=== PATIENT | female | born 1950 | race Caucasian/White ===

== ENCOUNTER → 2017-08-30 11:37 | Outpatient (CLI) | payer MEDICARE, OTHER, SELFPAY ==
--- NOTE | 2017-08-30 11:47 | DI.MG.S_ITS ---
BILATERAL DIGITAL SCREENING MAMMOGRAM 3D/2D WITH CAD: 08/30/2017 CLINICAL: Routine screening. Comparison is made to exams dated: 06/09/2016 mammogram, 02/26/2015 mammogram - [facility], and 10/17/2013 mammogram - [facility]. The tissue of both breasts is heterogeneously dense. This may lower the sensitivity of mammography. Current study was also evaluated with a Computer Aided Detection (CAD) system. No significant masses, calcifications, or other findings are seen in either breast. There has been no significant interval change. IMPRESSION: NEGATIVE There is no mammographic evidence of malignancy. A 1 year screening mammogram is recommended. This exam was interpreted at Station ID: [id number]. NOTE: For mammograms, a report in lay terms will be sent to the patient. Approximately 15% of breast malignancies will not be visualized mammographically. In the management of a palpable breast mass, a negative mammogram must not discourage biopsy of a clinically suspicious lesion. Electronically Signed By: Magdiel wiggins/francy:08/30/2017 15:59:49 copy to: Justin Gayle letter sent: Normal Exam ACR BI-RADS Category 1: Negative [id number]
--- NOTE | 2017-08-30 11:48 | DI.US.S_ITS ---
PROCEDURE: US THYROID INDICATIONS: THYROID NODULE TECHNIQUE: Real-time scanning was performed of the thyroid gland, with image documentation. COMPARISON: None. FINDINGS: Right: Thyroid lobe measures 4.0 x 1.3 x 1.2 cm, and is diffusely heterogeneous in echotexture. Left: Thyroid lobe measures 4.0 x 1.1 x 2.0 cm, and is diffusely heterogeneous in echotexture. Isthmus: 2.5 mm thick. Nodule number: 1 Location: Left mid Size: 0.9 x 0.8 x 0.9 cm. Composition: Predominately solid Echogenicity: Hypoechoic Shape: wider than tall. Margins: Smooth Echogenic foci: None Total points: 4 ACR TI-RADS category: Moderately suspicious Nodule number: 2 Location: Left mid Size: Sub-5 mm nodule Composition: Complex Echogenicity: Hypoechoic Shape: wider than tall. Margins: Smooth Echogenic foci: None Total points: 2 ACR TI-RADS category: No suspicious IMPRESSION: Small left-sided thyroid nodules as above. Recommend followup as below. ACR TI-RADS definitions and recommendations: TI-RADS 1 (benign): 0 points. FNA not needed. TI-RADS 2 (not suspicious): 2 points. FNA not needed. TI-RADS 3 (mildly suspicious): 3 points. * FNA if 2.5 cm or larger, follow up if 1.5 cm or larger (at 1, 3, and 5 years). TI-RADS 4 (moderately suspicious): 4-6 points. * FNA if 1.5 cm or larger, follow up if 1 cm or larger (at 1, 2, 3, and 5 years). TI-RADS 5 (highly suspicious): 7 points or more. * FNA if 1 cm or larger, follow up if 0.5 cm or larger (every year for 5 years). Dictated by: Bashir OSORIO Interpreted: Ken Busby MD on 08/30/2017 at 15:08 Approved by: Vinh Busby M.D. on 08/30/2017 at 16:28
[2017-08-30 12:17] LABS: Add Manual Diff / Slide Review NO; Basophils Percent Auto 1.3 % (0-2); Eosinophils Percent Auto 1.9 % (2-4); Hematocrit 41.8 % (36-46); Lymphocytes Percent Auto 31.4 % (25-40); Mean Corpuscular HGB Conc 33.4 % (30-36); Mean Corpuscular Hemoglobin 30.1 PG (26-34); Mean Corpuscular Volume 90.2 fL (80-100); Neutrophils Absolute Auto 1900 /uL (3000-5900); Neutrophils Percent Auto 48.4 % (50-75); Platelet Count 164 X10^3/uL (150-400); Red Blood Cell Count 4.63 X10^6/uL (4.0-5.2); Red Cell Distribution Width 14.9 % (11.6-14.8); White Blood Cell Count 3.9 X10^3/uL (4.5-11.0)
[2017-08-30 12:41] LABS: Alanine Aminotransferase 34 IU/L (9-52); Albumin Globulin Ratio 1.5 (1.0-2.8); Alkaline Phosphatase 49 U/L (38-126); Aspartate Aminotransferase 23 IU/L (14-36); Bilirubin Total 0.8 mg/dL (0.2-1.3); Bilirubin Unconjugated 0.5 mg/dL (0.0-1.1); Estimated Glomerular Filt Rate > 60.0 mL/min (>60); Globulin 2.6 g/dL (1.7-4.1); HEMOLYSIS < 15 (0-50); Total Protein 6.6 g/dL (6.3-8.2)
== END ==
PROVIDERS: Family Provider Internal Medicine; PCP Internal Medicine; Referring Provider Internal Medicine Rheumatology; Visit Provider Internal Medicine
DX: Z12.31 Encounter for screening mammogram for malignant neoplasm of breast (principal); Z51.81 Encounter for therapeutic drug level monitoring; E04.2 Nontoxic multinodular goiter
CPT/HCPCS: 36415; 76536; 77063; 77067; 80076; 82565; 85025

== ENCOUNTER → 2017-12-08 10:25 | Outpatient (CLI) | payer MEDICARE, OTHER, SELFPAY ==
[2017-12-08 11:14] LABS: Add Manual Diff / Slide Review NO; Basophils Percent Auto 0.5 % (0-2); Eosinophils Percent Auto 2.1 % (2-4); Hemoglobin 14.2 g/dL (12.0-16.0); Lymphocytes Percent Auto 27.5 % (25-40); Mean Corpuscular HGB Conc 33.8 % (30-36); Mean Corpuscular Hemoglobin 30.5 PG (26-34); Mean Corpuscular Volume 90.3 fL (80-100); Monocytes Percent Auto 17.4 % (3-14); Neutrophils Absolute Auto 2000 /uL (3000-5900); Neutrophils Percent Auto 52.5 % (50-75); Platelet Count 179 X10^3/uL (150-400); Red Blood Cell Count 4.65 X10^6/uL (4.0-5.2); Red Cell Distribution Width 13.6 % (11.6-14.8); White Blood Cell Count 3.7 X10^3/uL (4.5-11.0)
[2017-12-08 11:47] LABS: Alanine Aminotransferase 33 IU/L (9-52); Albumin 4.2 g/dL (3.5-5.0); Albumin Globulin Ratio 1.7 (1.0-2.8); Alkaline Phosphatase 45 U/L (38-126); Aspartate Aminotransferase 26 IU/L (14-36); Bilirubin Total 0.6 mg/dL (0.2-1.3); Bilirubin Unconjugated 0.3 mg/dL (0.0-1.1); Estimated Glomerular Filt Rate > 60.0 mL/min (>60); Globulin 2.5 g/dL (1.7-4.1); HEMOLYSIS < 15 (0-50); Total Protein 6.7 g/dL (6.3-8.2)
[2017-12-09 13:51] LABS: Cholesterol 271 mg/dL (140-199); HDL Cholesterol 71 mg/dL (40-60); LDL Cholesterol Calculated 143 mg/dL (<100); Triglycerides 283 mg/dL (35-150)
== END ==
PROVIDERS: Family Provider Internal Medicine; PCP Internal Medicine; Visit Provider Internal Medicine Rheumatology
DX: Z51.81 Encounter for therapeutic drug level monitoring (principal); E78.5 Hyperlipidemia, unspecified
CPT/HCPCS: 36415; 80061; 80076; 82565; 85025

== ENCOUNTER 2018-01-20 08:15 | Outpatient (RCR) | payer MEDICARE, OTHER, SELFPAY ==
--- NOTE | 2017-10-13 08:56 | PT.OIE ---
Current Diagnoses Primary osteoarthritis, unspecified ankle and foot (10/12/17) Pain in left foot (10/12/17) Weakness (10/12/17) Provider Visit Care Team Role Provider Type Justin Gayle MD Attending Provider Physician Family Provider Primary Care Provider Specialty: Internal Medicine Address: [address] [place] [address], [id number] Email: Physical Therapy Initial Evaluation PT-OP-A Visit Information Start: 10/12/17 15:25 Freq: Status: Active Protocol: Document 10/12/17 15:26 [facility] (Rec: 10/13/17 08:55 [facility] [id number]) Out-Patient Physical Therapy Visit Information Visit Information Visit Type Initial Evaluation Visit Start Time 15:26 Visit Stop Time 16:16 Total Visit Minutes 50 Visit Number 1 Number of ACCOUNTS RECEIVABLE ASSISTANT Visits 0 Evaluation Information Evaluation Date 10/12/17 PT-OP-B Current Condition Start: 10/12/17 15:25 Freq: Status: Active Protocol: Document 10/12/17 15:26 [facility] (Rec: 10/12/17 16:01 [facility] [id number]) Current Condition History of Current Condition Onset Date 07/27/17 Current Complaints function-limiting pain bilateral feet left greater than right. History of Current Condition Woke up swollen and painful on outside of left foot 07/27/17, no known reason. Xray showed avulsion fracture of styloid process of 5th metatarsal. Wore post-op boot for 8 weeks, pain persisted with no healing of fracture. Patient wears boot still occasionally but has transitioned to wearing tennis shoes though with rigid metal insert, heel lift, and old orthotics bilaterally. States she feels pain worse wearing the metal insert as recommended by physician. Persistent pain bilateral feet, neuropathy bilateral toes, neuritis outside of right foot. Hoping to get some pain relief in PT . Currently doing water exercise for fitness but is not helping foot pain. Uses heat around her feet at night, no ice. Has not tried kinesiotape or a brace. Future Testing and Treatments Planned Scheduled for left talonavicular fusion 02/19/18. Treatment Goals Patient/Caregiver Goals Pain relief, improved function Prior Functional Status Baseline Function- ADL's Independent Baseline Function- Mobility Independent Baseline Function- Gait independent no device Baseline Function- Work/School retired Current Functional Impairments (Reported) Functional Limitations- ADL's painful Functional Limitations- Mobility/Gait painful PT-OP-C Subjective Start: 10/12/17 15:25 Freq: Status: Active Protocol: Document 10/12/17 15:26 [facility] (Rec: 10/13/17 08:55 [facility] [id number]) Patient Questionnaires Lower Extremity Functional Scale LEFS Score 62 LEFS Impairment 60 to 79% Impaired (Score 17- 31) PT-OP-G Mobility & Gait Start: 10/12/17 15:25 Freq: Status: Active Protocol: Document 10/12/17 15:26 [facility] (Rec: 10/13/17 08:55 [facility] [id number]) OP Gait Assessment Gait Gait Assistance Required: Independent Assistive Devices Assistive Device None Gait Deviations General Gait Pattern Antalgic Lateral Trunk Lean Factors Limiting Gait Function Factors Limiting Gait Function Pain Comments Gait Comments Wearing bilateral metal inserts, heel lifts, orthotics : excessive lateral sway due to lack of sagittal plane movement due to metal inserts. Putting increased weight laterally on feet which is likely what is causing increase in foot pain. Stair Climbing Evaluation Evaluation Level of Assist On Stairs Independent Comments Stair Climbing Comments Painful and labored, again due to lack of saggital plane movement PT-OP-J Posture/Palpation/Skin Start: 10/12/17 15:25 Freq: Status: Active Protocol: Document 10/12/17 15:26 [facility] (Rec: 10/13/17 08:55 [facility] [id number]) Posture Evaluation Position Standing Ankle/Foot Posture (L) Pronated (R) Pronated (L) Calcaneal Eversion (R) Calcaneal Eversion Skin Assessment Edema Assessment Bilateral Foot Comments Patient presents with edema lateral left foot, dorsum of right foot PT-OP-K Range of Motion Start: 10/12/17 15:25 Freq: Status: Active Protocol: Document 10/12/17 15:26 [facility] (Rec: 10/13/17 08:55 [facility] [id number]) Knee Goniometric Range of Motion Knee ROM Limitations Comments bilateral knees WNL Ankle and Foot Goniometric Range of Motion Ankle and Foot Measured in Degrees Right Active Testing Position Sitting Dorsiflexion with Knee Flexed 8 Plantarflexion 40 Inversion 30 Eversion 35 Left Testing Position Sitting Dorsiflexion with Knee Flexed 5 Plantarflexion 50 Inversion 25 Eversion 30 Ankle and Foot ROM Limitations ROM Limitations Soft Tissue Tightness Pain Swelling PT-OP-M Strength Start: 10/12/17 15:25 Freq: Status: Active Protocol: Document 10/12/17 15:26 [facility] (Rec: 10/13/17 08:55 [facility] [id number]) Ankle/Foot Strength Ankle and Foot Manual Muscle Testing Right Dorsiflexion (L4) 4 Good Plantarflexion (S1) 4- Good- Inversion 4 Good Eversion (S1) 4 Good Left Dorsiflexion (L4) 4- Good- Plantarflexion (S1) 3- Fair- Inversion 4- Good- Eversion (S1) 4- Good- Comments painful all motions PT-OP-Q Treatments Start: 10/12/17 15:25 Freq: Status: Active Protocol: Document 10/12/17 15:26 [facility] (Rec: 10/12/17 16:34 [facility] [id number]) Self-Care/Home Management Treatment Education Patient Education Home Exercise Program Other Education written instructions and L1-2 Theraband issued Instructed to call physician regarding metal shoe inserts, if ok to remove due to pain. Activities Self-Care/Home Management Activities heat/ice as needed PT-OP-R Modalities Start: 10/12/17 15:25 Freq: Status: Active Protocol: Document 10/12/17 15:26 [facility] (Rec: 10/13/17 08:55 [facility] [id number]) Hot Pack/Cold Pack Treatment Cold Pack Comments Patient refused; stated she will ice at home PT-OP-T Assessment and Plan Start: 10/12/17 15:25 Freq: Status: Active Protocol: Document 10/12/17 15:26 [facility] (Rec: 10/13/17 08:55 [facility] [id number]) Physical Therapy Assessment Rehab Potential Rehabilitation Potential Fair Evaluation Complexity Number of Personal Factors/Comorbidities 3 or More Number of Body Systems Impaired 4 or More Clinical Presentation at Evaluation Unstable Impairments Impairments Activity Tolerance Edema Gait Pain ROM Strength Other Concerns Fall Risk yes due to altered mechanics of gait Goals Antalgic gait Impairment gait Contact Center Representative Goal (LTG) Patient able to ambulate with minimal to no limp using appropriate assistive device as needed LTG Duration 3 months Foot and Ankle Ability Measure ADL's Impairment 50% Fpc Goal (LTG) Improve score to at least 75% LTG Duration 3 months Lower extremity functional scale Impairment Score 38% Contact Center Representative Goal (LTG) Improve lower extremity functional scale to at least 60% LTG Duration 3 months Pain bilateral feet 6/10 Impairment pain Fpc Goal (LTG) Decrease pain to no greater than 3/10 LTG Duration 3 months Assessment Summary Assessment Patient presents with function -limiting pain bilateral feet left greater than right with nonhealing 5th metatarsal fracture. Inserts in shoes especially rigid metal appears to be causing increased lateral sway with gait due to lack of sagittal plane movement which may be contributing to the increased pain patient reports since starting to wear them; patient to contact physician to see if able to ambulate without them. I recommended she use boot more vs the metal if ok with physician. She may benefit from PT for pain management, gentle strengthening of feet/ankles, gait training, advising on aquatic exercise program. Physical Therapy Plan Frequency and Duration Frequency of Treatment 2x/Week Duration of Treatment 3 months Plan of Care Start Date 10/12/17 Plan of Care End Date 01/12/18 Therapeutic Interventions Therapeutic Interventions Aquatic Therapy Gait Training Home Exercise Program Manual Therapy Neuromuscular Re-education Orthotic/Prosthetic Management Patient/Caregiver Education Self-Care/Home Management Taping Therapeutic Activities Therapeutic Exercises Modalities Cold Pack/Ice Massage Electric Stimulation Hot Packs Iontophoresis Ultrasound Next Visit Focus/Plan Next Note Type Treatment Note Next Visit Plan gentle ther ex, modalties, gait training.
--- NOTE | 2017-10-13 08:56 | PT.OPPOC ---
Current Diagnoses Primary osteoarthritis, unspecified ankle and foot (10/12/17) Pain in left foot (10/12/17) Weakness (10/12/17) Provider Visit Care Team Role Provider Type Justin Gayle MD Attending Provider Physician Family Provider Primary Care Provider Specialty: Internal Medicine Address: [address] [place] [address], [id number] Email: Plan Of Care PT-OP-T Assessment and Plan Start: 10/12/17 15:25 Freq: Status: Active Protocol: Document 10/12/17 15:26 [facility] (Rec: 10/13/17 08:55 [facility] [id number]) Physical Therapy Assessment Rehab Potential Rehabilitation Potential Fair Evaluation Complexity Number of Personal Factors/Comorbidities 3 or More Number of Body Systems Impaired 4 or More Clinical Presentation at Evaluation Unstable Impairments Impairments Activity Tolerance Edema Gait Pain ROM Strength Other Concerns Fall Risk yes due to altered mechanics of gait Goals Antalgic gait Impairment gait Scientific Editor Goal (LTG) Patient able to ambulate with minimal to no limp using appropriate assistive device as needed LTG Duration 3 months Foot and Ankle Ability Measure ADL's Impairment 50% Jail Goal (LTG) Improve score to at least 75% LTG Duration 3 months Lower extremity functional scale Impairment Score 38% Jail Goal (LTG) Improve lower extremity functional scale to at least 60% LTG Duration 3 months Pain bilateral feet 6/10 Impairment pain Scientific Editor Goal (LTG) Decrease pain to no greater than 3/10 LTG Duration 3 months Assessment Summary Assessment Patient presents with function -limiting pain bilateral feet left greater than right with nonhealing 5th metatarsal fracture. Inserts in shoes especially rigid metal appears to be causing increased lateral sway with gait due to lack of sagittal plane movement which may be contributing to the increased pain patient reports since starting to wear them; patient to contact physician to see if able to ambulate without them. I recommended she use boot more vs the metal if ok with physician. She may benefit from PT for pain management, gentle strengthening of feet/ankles, gait training, advising on aquatic exercise program. Physical Therapy Plan Frequency and Duration Frequency of Treatment 2x/Week Duration of Treatment 3 months Plan of Care Start Date 10/12/17 Plan of Care End Date 01/12/18 Therapeutic Interventions Therapeutic Interventions Aquatic Therapy Gait Training Home Exercise Program Manual Therapy Neuromuscular Re-education Orthotic/Prosthetic Management Patient/Caregiver Education Self-Care/Home Management Taping Therapeutic Activities Therapeutic Exercises Modalities Cold Pack/Ice Massage Electric Stimulation Hot Packs Iontophoresis Ultrasound Next Visit Focus/Plan Next Note Type Treatment Note Next Visit Plan gentle ther ex, modalties, gait training. Plan of Care Dates Plan of Care Start Date 10/12/17 Plan of Care End Date 01/12/18 Please Sign and Return: I have reviewed this Plan of Care and certify that the skilled therapy services above are required to meet the patient?s needs. Physician Signature Date Printed Name and Credentials Clinical Instructor Signature Printed Name and Credentials
--- NOTE | 2017-10-26 16:58 | PT.OTN ---
Current Diagnoses Primary osteoarthritis, unspecified ankle and foot (10/26/17) Pain in left foot (10/26/17) Physical Therapy Treatment Note PT-OP-A Visit Information Start: 10/12/17 15:25 Freq: Status: Active Protocol: Document 10/26/17 13:45 [facility] (Rec: 10/26/17 16:58 [facility] [id number]) Out-Patient Physical Therapy Visit Information Visit Information Visit Type Treatment Note Visit Start Time 13:45 Visit Stop Time 14:40 Total Visit Minutes 55 Visit Number 2 Number of SHOWROOM SALES ASSISTANT Visits 0 PT-OP-B Current Condition Start: 10/12/17 15:25 Freq: Status: Active Protocol: Document 10/12/17 15:26 [facility] (Rec: 10/12/17 16:01 [facility] [id number]) Current Condition History of Current Condition Onset Date 07/27/17 Current Complaints function-limiting pain bilateral feet left greater than right. History of Current Condition Woke up swollen and painful on outside of left foot 07/27/17, no known reason. Xray showed avulsion fracture of styloid process of 5th metatarsal. Wore post-op boot for 8 weeks, pain persisted with no healing of fracture. Patient wears boot still occasionally but has transitioned to wearing tennis shoes though with rigid metal insert, heel lift, and old orthotics bilaterally. States she feels pain worse wearing the metal insert as recommended by physician. Persistent pain bilateral feet, neuropathy bilateral toes, neuritis outside of right foot. Hoping to get some pain relief in PT . Currently doing water exercise for fitness but is not helping foot pain. Uses heat around her feet at night, no ice. Has not tried kinesiotape or a brace. Future Testing and Treatments Planned Scheduled for left talonavicular fusion 02/19/18. Treatment Goals Patient/Caregiver Goals Pain relief, improved function Prior Functional Status Baseline Function- ADL's Independent Baseline Function- Mobility Independent Baseline Function- Gait independent no device Baseline Function- Work/School retired Current Functional Impairments (Reported) Functional Limitations- ADL's painful Functional Limitations- Mobility/Gait painful PT-OP-C Subjective Start: 10/12/17 15:25 Freq: Status: Active Protocol: Document 10/26/17 13:45 [facility] (Rec: 10/26/17 16:58 [facility] [id number]) OP-PT Subjective Patient Comments Patient Comments Reports she has not been wearing boot or metal in her shoe. Tried 30 min recumbent elliptical in the gym, increased pain after, no ice. PT-OP-G Mobility & Gait Start: 10/12/17 15:25 Freq: Status: Active Protocol: Document 10/12/17 15:26 [facility] (Rec: 10/13/17 08:55 [facility] [id number]) OP Gait Assessment Gait Gait Assistance Required: Independent Assistive Devices Assistive Device None Gait Deviations General Gait Pattern Antalgic Lateral Trunk Lean Factors Limiting Gait Function Factors Limiting Gait Function Pain Comments Gait Comments Wearing bilateral metal inserts, heel lifts, orthotics : excessive lateral sway due to lack of sagittal plane movement due to metal inserts. Putting increased weight laterally on feet which is likely what is causing increase in foot pain. Stair Climbing Evaluation Evaluation Level of Assist On Stairs Independent Comments Stair Climbing Comments Painful and labored, again due to lack of saggital plane movement PT-OP-J Posture/Palpation/Skin Start: 10/12/17 15:25 Freq: Status: Active Protocol: Document 10/12/17 15:26 [facility] (Rec: 10/13/17 08:55 [facility] [id number]) Posture Evaluation Position Standing Ankle/Foot Posture (L) Pronated (R) Pronated (L) Calcaneal Eversion (R) Calcaneal Eversion Skin Assessment Edema Assessment Bilateral Foot Comments Patient presents with edema lateral left foot, dorsum of right foot PT-OP-K Range of Motion Start: 10/12/17 15:25 Freq: Status: Active Protocol: Document 10/12/17 15:26 [facility] (Rec: 10/13/17 08:55 [facility] [id number]) Knee Goniometric Range of Motion Knee ROM Limitations Comments bilateral knees WNL Ankle and Foot Goniometric Range of Motion Ankle and Foot Measured in Degrees Right Active Testing Position Sitting Dorsiflexion with Knee Flexed 8 Plantarflexion 40 Inversion 30 Eversion 35 Left Testing Position Sitting Dorsiflexion with Knee Flexed 5 Plantarflexion 50 Inversion 25 Eversion 30 Ankle and Foot ROM Limitations ROM Limitations Soft Tissue Tightness Pain Swelling PT-OP-M Strength Start: 10/12/17 15:25 Freq: Status: Active Protocol: Document 10/12/17 15:26 [facility] (Rec: 10/13/17 08:55 [facility] [id number]) Ankle/Foot Strength Ankle and Foot Manual Muscle Testing Right Dorsiflexion (L4) 4 Good Plantarflexion (S1) 4- Good- Inversion 4 Good Eversion (S1) 4 Good Left Dorsiflexion (L4) 4- Good- Plantarflexion (S1) 3- Fair- Inversion 4- Good- Eversion (S1) 4- Good- Comments painful all motions PT-OP-Q Treatments Start: 10/12/17 15:25 Freq: Status: Active Protocol: Document 10/26/17 13:45 [facility] (Rec: 10/26/17 16:58 [facility] [id number]) Therapeutic Exercises Sitting Exercises 3 Sitting Exercise Name short foot exercise Side bilateral Reps/Minutes 10x 2 Sitting Exercise Name towel scrunch Side bilateral Reps/Minutes 12x 1 Sitting Exercise Name ankle inv, ev, df, pf Side bilateral Equipment Used L1 TB Reps/Minutes 5 Self-Care/Home Management Treatment Education Patient Education Home Exercise Program Other Education updated PT-OP-R Modalities Start: 10/12/17 15:25 Freq: Status: Active Protocol: Document 10/26/17 13:45 [facility] (Rec: 10/26/17 16:58 [facility] [id number]) Electric Stimulation Electric Stimulation Interferential Current (IFC) Body Location left foot/ankle Duration (Minutes) 15 Contraction Type Normal Target/Sweep Sweep Combined With Heat/Cold Cold Pack Ultrasound Therapy Treatment Left Anterior Ankle Treatment Duration (minutes) 8 Frequency Setting (mHz) 3 Duty Cycle 50% Intensity Setting (w/cm2) 1 PT-OP-T Assessment and Plan Start: 10/12/17 15:25 Freq: Status: Active Protocol: Document 10/26/17 13:45 [facility] (Rec: 10/26/17 16:58 [facility] [id number]) Physical Therapy Assessment Goals Antalgic gait Impairment gait Diesel Technician Mechanic Goal (LTG) Patient able to ambulate with minimal to no limp using appropriate assistive device as needed LTG Duration 3 months Foot and Ankle Ability Measure ADL's Impairment 50% Diesel Technician Mechanic Goal (LTG) Improve score to at least 75% LTG Duration 3 months Lower extremity functional scale Impairment Score 38% Longterm Goal (LTG) Improve lower extremity functional scale to at least 60% LTG Duration 3 months Pain bilateral feet 6/10 Impairment pain Diesel Technician Mechanic Goal (LTG) Decrease pain to no greater than 3/10 LTG Duration 3 months Assessment Summary Assessment Patient demonstrated good understanding of new exercises . Needed instruction to resume wearing boot due to increased pain, instruction to more gradually begin and increase exercise activity especially on land. Pool was closed since patient last seen so at least part of patient's increase in pain may be due to inability to do aquatic exercises Physical Therapy Plan Frequency and Duration Frequency of Treatment 2x/Week Duration of Treatment 3 months Plan of Care Start Date 10/12/17 Plan of Care End Date 01/12/18 Therapeutic Interventions Therapeutic Interventions Aquatic Therapy Gait Training Home Exercise Program Manual Therapy Neuromuscular Re-education Orthotic/Prosthetic Management Patient/Caregiver Education Self-Care/Home Management Taping Therapeutic Activities Therapeutic Exercises Modalities Cold Pack/Ice Massage Electric Stimulation Hot Packs Iontophoresis Ultrasound Next Visit Focus/Plan Next Note Type Treatment Note Next Visit Plan evaluate response to last session, progress as indicated . Possible kinesiotape.
--- NOTE | 2017-10-28 16:48 | PT.OTN ---
Current Diagnoses Primary osteoarthritis, unspecified ankle and foot (10/28/17) Pain in left foot (10/28/17) Physical Therapy Treatment Note PT-OP-A Visit Information Start: 10/12/17 15:25 Freq: Status: Active Protocol: Document 10/28/17 16:35 SAK (Rec: 10/28/17 16:36 [facility] [id number]) Out-Patient Physical Therapy Visit Information Visit Information Visit Type Treatment Note Visit Start Time 13:45 Visit Stop Time 14:40 Total Visit Minutes 53 Visit Number 2 Number of RAW STOCK DYEING MACHINE TENDER Visits 0 Evaluation Information Evaluation Date 10/12/17 PT-OP-B Current Condition Start: 10/12/17 15:25 Freq: Status: Active Protocol: Document 10/12/17 15:26 SAK (Rec: 10/12/17 16:01 SAK [id number]) Current Condition History of Current Condition Onset Date 07/27/17 Current Complaints function-limiting pain bilateral feet left greater than right. History of Current Condition Woke up swollen and painful on outside of left foot 07/27/17, no known reason. Xray showed avulsion fracture of styloid process of 5th metatarsal. Wore post-op boot for 8 weeks, pain persisted with no healing of fracture. Patient wears boot still occasionally but has transitioned to wearing tennis shoes though with rigid metal insert, heel lift, and old orthotics bilaterally. States she feels pain worse wearing the metal insert as recommended by physician. Persistent pain bilateral feet, neuropathy bilateral toes, neuritis outside of right foot. Hoping to get some pain relief in PT . Currently doing water exercise for fitness but is not helping foot pain. Uses heat around her feet at night, no ice. Has not tried kinesiotape or a brace. Future Testing and Treatments Planned Scheduled for left talonavicular fusion 02/19/18. Treatment Goals Patient/Caregiver Goals Pain relief, improved function Prior Functional Status Baseline Function- ADL's Independent Baseline Function- Mobility Independent Baseline Function- Gait independent no device Baseline Function- Work/School retired Current Functional Impairments (Reported) Functional Limitations- ADL's painful Functional Limitations- Mobility/Gait painful PT-OP-C Subjective Start: 10/12/17 15:25 Freq: Status: Active Protocol: Document 10/28/17 16:35 SAK (Rec: 10/28/17 16:36 [facility] [id number]) OP-PT Subjective Patient Comments Patient Comments Reports she has not been wearing boot or metal in her shoe. Tried 30 min recumbent elliptical in the gym, increased pain after, no ice. Patient Questionnaires Lower Extremity Functional Scale LEFS Score 62 LEFS Impairment 60 to 79% Impaired (Score 17- 31) PT-OP-G Mobility & Gait Start: 10/12/17 15:25 Freq: Status: Active Protocol: Document 10/12/17 15:26 [facility] (Rec: 10/13/17 08:55 [facility] [id number]) OP Gait Assessment Gait Gait Assistance Required: Independent Assistive Devices Assistive Device None Gait Deviations General Gait Pattern Antalgic Lateral Trunk Lean Factors Limiting Gait Function Factors Limiting Gait Function Pain Comments Gait Comments Wearing bilateral metal inserts, heel lifts, orthotics : excessive lateral sway due to lack of sagittal plane movement due to metal inserts. Putting increased weight laterally on feet which is likely what is causing increase in foot pain. Stair Climbing Evaluation Evaluation Level of Assist On Stairs Independent Comments Stair Climbing Comments Painful and labored, again due to lack of saggital plane movement PT-OP-J Posture/Palpation/Skin Start: 10/12/17 15:25 Freq: Status: Active Protocol: Document 10/12/17 15:26 [facility] (Rec: 10/13/17 08:55 [facility] [id number]) Posture Evaluation Position Standing Ankle/Foot Posture (L) Pronated (R) Pronated (L) Calcaneal Eversion (R) Calcaneal Eversion Skin Assessment Edema Assessment Bilateral Foot Comments Patient presents with edema lateral left foot, dorsum of right foot PT-OP-K Range of Motion Start: 10/12/17 15:25 Freq: Status: Active Protocol: Document 10/12/17 15:26 [facility] (Rec: 10/13/17 08:55 [facility] [id number]) Knee Goniometric Range of Motion Knee ROM Limitations Comments bilateral knees WNL Ankle and Foot Goniometric Range of Motion Ankle and Foot Measured in Degrees Right Active Testing Position Sitting Dorsiflexion with Knee Flexed 8 Plantarflexion 40 Inversion 30 Eversion 35 Left Testing Position Sitting Dorsiflexion with Knee Flexed 5 Plantarflexion 50 Inversion 25 Eversion 30 Ankle and Foot ROM Limitations ROM Limitations Soft Tissue Tightness Pain Swelling PT-OP-M Strength Start: 10/12/17 15:25 Freq: Status: Active Protocol: Document 10/12/17 15:26 [facility] (Rec: 10/13/17 08:55 [facility] [id number]) Ankle/Foot Strength Ankle and Foot Manual Muscle Testing Right Dorsiflexion (L4) 4 Good Plantarflexion (S1) 4- Good- Inversion 4 Good Eversion (S1) 4 Good Left Dorsiflexion (L4) 4- Good- Plantarflexion (S1) 3- Fair- Inversion 4- Good- Eversion (S1) 4- Good- Comments painful all motions PT-OP-Q Treatments Start: 10/12/17 15:25 Freq: Status: Active Protocol: Document 10/28/17 16:35 [facility] (Rec: 10/28/17 16:36 [facility] [id number]) Therapeutic Exercises Sitting Exercises 4 Sitting Exercise Name BAPS board L2 Comments AP, side, circles 5 Sitting Exercise Name marble pick-up 3 Sitting Exercise Name short foot exercise Side bilateral Reps/Minutes 10x 2 Sitting Exercise Name towel scrunch Side bilateral Reps/Minutes 12x 1 Sitting Exercise Name ankle inv, ev, df, pf Side bilateral Equipment Used L1 TB Reps/Minutes 5 PT-OP-R Modalities Start: 10/12/17 15:25 Freq: Status: Active Protocol: Document 10/28/17 16:35 [facility] (Rec: 10/28/17 16:36 [facility] [id number]) Electric Stimulation Electric Stimulation Interferential Current (IFC) Body Location left foot/ankle Duration (Minutes) 15 Contraction Type Normal Target/Sweep Sweep Combined With Heat/Cold Cold Pack Ultrasound Therapy Treatment Left Anterior Ankle Treatment Duration (minutes) 8 Frequency Setting (mHz) 3 Duty Cycle 50% Intensity Setting (w/cm2) 1 PT-OP-T Assessment and Plan Start: 10/12/17 15:25 Freq: Status: Active Protocol: Document 10/28/17 16:35 [facility] (Rec: 10/28/17 16:36 [facility] [id number]) Physical Therapy Assessment Impairments Impairments Activity Tolerance Edema Gait Pain ROM Strength Other Concerns Fall Risk yes due to altered mechanics of gait Goals Antalgic gait Impairment gait Backend Python Developer Goal (LTG) Patient able to ambulate with minimal to no limp using appropriate assistive device as needed LTG Duration 3 months Foot and Ankle Ability Measure ADL's Impairment 50% Backend Python Developer Goal (LTG) Improve score to at least 75% LTG Duration 3 months Lower extremity functional scale Impairment Score 38% Backend Python Developer Goal (LTG) Improve lower extremity functional scale to at least 60% LTG Duration 3 months Pain bilateral feet 6/10 Impairment pain Backend Python Developer Goal (LTG) Decrease pain to no greater than 3/10 LTG Duration 3 months Assessment Summary Assessment Patient wearing boot again, reports feels better, less pain. Went to pool for aquatic exercise today. Physical Therapy Plan Frequency and Duration Frequency of Treatment 2x/Week Duration of Treatment 3 months Plan of Care Start Date 10/12/17 Plan of Care End Date 01/12/18 Therapeutic Interventions Therapeutic Interventions Aquatic Therapy Gait Training Home Exercise Program Manual Therapy Neuromuscular Re-education Orthotic/Prosthetic Management Patient/Caregiver Education Self-Care/Home Management Taping Therapeutic Activities Therapeutic Exercises Modalities Cold Pack/Ice Massage Electric Stimulation Hot Packs Iontophoresis Ultrasound Next Visit Focus/Plan Next Note Type Treatment Note Next Visit Plan evaluate response to last session, progress as indicated . Possible kinesiotape.
--- NOTE | 2017-11-03 16:58 | PT.OTN ---
Current Diagnoses Primary osteoarthritis, unspecified ankle and foot (11/02/17) Pain in left foot (11/02/17) Physical Therapy Treatment Note PT-OP-A Visit Information Start: 10/12/17 15:25 Freq: Status: Active Protocol: Document 11/02/17 13:58 SAK (Rec: 11/02/17 14:31 [facility] [id number]) Out-Patient Physical Therapy Visit Information Visit Information Visit Type Treatment Note Visit Start Time 13:45 Visit Stop Time 14:40 Total Visit Minutes 53 Visit Number 5 Number of IMAGE CONSULTANT Visits 0 Evaluation Information Evaluation Date 10/12/17 PT-OP-B Current Condition Start: 10/12/17 15:25 Freq: Status: Active Protocol: Document 10/12/17 15:26 SAK (Rec: 10/12/17 16:01 SAK [id number]) Current Condition History of Current Condition Onset Date 07/27/17 Current Complaints function-limiting pain bilateral feet left greater than right. History of Current Condition Woke up swollen and painful on outside of left foot 07/27/17, no known reason. Xray showed avulsion fracture of styloid process of 5th metatarsal. Wore post-op boot for 8 weeks, pain persisted with no healing of fracture. Patient wears boot still occasionally but has transitioned to wearing tennis shoes though with rigid metal insert, heel lift, and old orthotics bilaterally. States she feels pain worse wearing the metal insert as recommended by physician. Persistent pain bilateral feet, neuropathy bilateral toes, neuritis outside of right foot. Hoping to get some pain relief in PT . Currently doing water exercise for fitness but is not helping foot pain. Uses heat around her feet at night, no ice. Has not tried kinesiotape or a brace. Future Testing and Treatments Planned Scheduled for left talonavicular fusion 02/19/18. Treatment Goals Patient/Caregiver Goals Pain relief, improved function Prior Functional Status Baseline Function- ADL's Independent Baseline Function- Mobility Independent Baseline Function- Gait independent no device Baseline Function- Work/School retired Current Functional Impairments (Reported) Functional Limitations- ADL's painful Functional Limitations- Mobility/Gait painful PT-OP-C Subjective Start: 10/12/17 15:25 Freq: Status: Active Protocol: Document 11/02/17 13:58 SAK (Rec: 11/02/17 14:31 [facility] [id number]) OP-PT Subjective Patient Comments Patient Comments Has been wearing boot, less pain, until increased standing this am. Using cream with CBD oil. PT-OP-G Mobility & Gait Start: 10/12/17 15:25 Freq: Status: Active Protocol: Document 10/12/17 15:26 [facility] (Rec: 10/13/17 08:55 [facility] [id number]) OP Gait Assessment Gait Gait Assistance Required: Independent Assistive Devices Assistive Device None Gait Deviations General Gait Pattern Antalgic Lateral Trunk Lean Factors Limiting Gait Function Factors Limiting Gait Function Pain Comments Gait Comments Wearing bilateral metal inserts, heel lifts, orthotics : excessive lateral sway due to lack of sagittal plane movement due to metal inserts. Putting increased weight laterally on feet which is likely what is causing increase in foot pain. Stair Climbing Evaluation Evaluation Level of Assist On Stairs Independent Comments Stair Climbing Comments Painful and labored, again due to lack of saggital plane movement PT-OP-J Posture/Palpation/Skin Start: 10/12/17 15:25 Freq: Status: Active Protocol: Document 10/12/17 15:26 [facility] (Rec: 10/13/17 08:55 [facility] [id number]) Posture Evaluation Position Standing Ankle/Foot Posture (L) Pronated (R) Pronated (L) Calcaneal Eversion (R) Calcaneal Eversion Skin Assessment Edema Assessment Bilateral Foot Comments Patient presents with edema lateral left foot, dorsum of right foot PT-OP-K Range of Motion Start: 10/12/17 15:25 Freq: Status: Active Protocol: Document 10/12/17 15:26 [facility] (Rec: 10/13/17 08:55 [facility] [id number]) Knee Goniometric Range of Motion Knee ROM Limitations Comments bilateral knees WNL Ankle and Foot Goniometric Range of Motion Ankle and Foot Measured in Degrees Right Active Testing Position Sitting Dorsiflexion with Knee Flexed 8 Plantarflexion 40 Inversion 30 Eversion 35 Left Testing Position Sitting Dorsiflexion with Knee Flexed 5 Plantarflexion 50 Inversion 25 Eversion 30 Ankle and Foot ROM Limitations ROM Limitations Soft Tissue Tightness Pain Swelling PT-OP-M Strength Start: 10/12/17 15:25 Freq: Status: Active Protocol: Document 10/12/17 15:26 [facility] (Rec: 10/13/17 08:55 [facility] [id number]) Ankle/Foot Strength Ankle and Foot Manual Muscle Testing Right Dorsiflexion (L4) 4 Good Plantarflexion (S1) 4- Good- Inversion 4 Good Eversion (S1) 4 Good Left Dorsiflexion (L4) 4- Good- Plantarflexion (S1) 3- Fair- Inversion 4- Good- Eversion (S1) 4- Good- Comments painful all motions PT-OP-Q Treatments Start: 10/12/17 15:25 Freq: Status: Active Protocol: Document 11/02/17 13:58 [facility] (Rec: 11/02/17 14:31 [facility] [id number]) Cardio Equipment Recumbent Elliptical ([employer]) Duration (Minutes) 7 Resistance 2 Seat Position 6 Therapeutic Exercises Sitting Exercises 4 Sitting Exercise Name BAPS board L3 Comments AP, side, circles 5 Sitting Exercise Name marble pick-up 3 Sitting Exercise Name short foot exercise Side bilateral Reps/Minutes 10x 2 Sitting Exercise Name towel scrunch Side bilateral Reps/Minutes 12x 1 Sitting Exercise Name ankle inv, ev, df, pf Side bilateral Equipment Used L1 TB Reps/Minutes 5 Manual Therapy Treatment Taping 1 Body Location left foot Treatment Focus arch support Type of Tape Kinesio Tape Comments 2 I strips for arch support PT-OP-R Modalities Start: 10/12/17 15:25 Freq: Status: Active Protocol: Document 11/02/17 13:58 [facility] (Rec: 11/03/17 16:58 [facility] [id number]) Electric Stimulation Electric Stimulation Interferential Current (IFC) Body Location left foot/ankle Duration (Minutes) 15 Contraction Type Normal Target/Sweep Sweep Combined With Heat/Cold Cold Pack Ultrasound Therapy Treatment Left Anterior Ankle Treatment Duration (minutes) 8 Frequency Setting (mHz) 3 Duty Cycle 100 Intensity Setting (w/cm2) 1 PT-OP-T Assessment and Plan Start: 10/12/17 15:25 Freq: Status: Active Protocol: Document 11/02/17 13:58 [facility] (Rec: 11/03/17 16:58 [facility] [id number]) Physical Therapy Assessment Goals Antalgic gait Impairment gait [employer] Goal (LTG) Patient able to ambulate with minimal to no limp using appropriate assistive device as needed LTG Duration 3 months Foot and Ankle Ability Measure ADL's Impairment 50% Machine Assembler Supervisor Goal (LTG) Improve score to at least 75% LTG Duration 3 months Lower extremity functional scale Impairment Score 38% Machine Assembler Supervisor Goal (LTG) Improve lower extremity functional scale to at least 60% LTG Duration 3 months Pain bilateral feet 6/10 Impairment pain Machine Assembler Supervisor Goal (LTG) Decrease pain to no greater than 3/10 LTG Duration 3 months Assessment Summary Assessment Good tolerance for ther ex, increased to L3 on BAPS board, feels short foot exercise helpful. Continues to wear boot with decreased pain Physical Therapy Plan Frequency and Duration Frequency of Treatment 2x/Week Duration of Treatment 3 months Plan of Care Start Date 10/12/17 Plan of Care End Date 01/12/18 Therapeutic Interventions Therapeutic Interventions Aquatic Therapy Gait Training Home Exercise Program Manual Therapy Neuromuscular Re-education Orthotic/Prosthetic Management Patient/Caregiver Education Self-Care/Home Management Taping Therapeutic Activities Therapeutic Exercises Modalities Cold Pack/Ice Massage Electric Stimulation Hot Packs Iontophoresis Ultrasound Next Visit Focus/Plan Next Note Type Treatment Note Next Visit Plan Evaluate response to kinesiotape, progression of BAPS. Soft tissue mobilization to foot and ankle .
--- NOTE | 2017-11-05 08:43 | PT.OTN ---
Current Diagnoses Primary osteoarthritis, unspecified ankle and foot (11/04/17) Pain in left foot (11/04/17) Physical Therapy Treatment Note PT-OP-A Visit Information Start: 10/12/17 15:25 Freq: Status: Active Protocol: Document 11/02/17 13:58 SAK (Rec: 11/02/17 14:31 [facility] [id number]) Out-Patient Physical Therapy Visit Information Visit Information Visit Type Treatment Note Visit Start Time 13:45 Visit Stop Time 14:40 Total Visit Minutes 53 Visit Number 5 Number of SANDWICH WRAPPER Visits 0 Evaluation Information Evaluation Date 10/12/17 PT-OP-B Current Condition Start: 10/12/17 15:25 Freq: Status: Active Protocol: Document 10/12/17 15:26 SAK (Rec: 10/12/17 16:01 SAK [id number]) Current Condition History of Current Condition Onset Date 07/27/17 Current Complaints function-limiting pain bilateral feet left greater than right. History of Current Condition Woke up swollen and painful on outside of left foot 07/27/17, no known reason. Xray showed avulsion fracture of styloid process of 5th metatarsal. Wore post-op boot for 8 weeks, pain persisted with no healing of fracture. Patient wears boot still occasionally but has transitioned to wearing tennis shoes though with rigid metal insert, heel lift, and old orthotics bilaterally. States she feels pain worse wearing the metal insert as recommended by physician. Persistent pain bilateral feet, neuropathy bilateral toes, neuritis outside of right foot. Hoping to get some pain relief in PT . Currently doing water exercise for fitness but is not helping foot pain. Uses heat around her feet at night, no ice. Has not tried kinesiotape or a brace. Future Testing and Treatments Planned Scheduled for left talonavicular fusion 02/19/18. Treatment Goals Patient/Caregiver Goals Pain relief, improved function Prior Functional Status Baseline Function- ADL's Independent Baseline Function- Mobility Independent Baseline Function- Gait independent no device Baseline Function- Work/School retired Current Functional Impairments (Reported) Functional Limitations- ADL's painful Functional Limitations- Mobility/Gait painful PT-OP-C Subjective Start: 10/12/17 15:25 Freq: Status: Active Protocol: Document 11/04/17 13:51 [facility]AK (Rec: 11/05/17 08:40 [facility] [id number]) OP-PT Subjective Patient Comments Patient Comments Had horrible night after last PT session, uncertain why, some better today. PT-OP-G Mobility & Gait Start: 10/12/17 15:25 Freq: Status: Active Protocol: Document 10/12/17 15:26 [facility] (Rec: 10/13/17 08:55 [facility] [id number]) OP Gait Assessment Gait Gait Assistance Required: Independent Assistive Devices Assistive Device None Gait Deviations General Gait Pattern Antalgic Lateral Trunk Lean Factors Limiting Gait Function Factors Limiting Gait Function Pain Comments Gait Comments Wearing bilateral metal inserts, heel lifts, orthotics : excessive lateral sway due to lack of sagittal plane movement due to metal inserts. Putting increased weight laterally on feet which is likely what is causing increase in foot pain. Stair Climbing Evaluation Evaluation Level of Assist On Stairs Independent Comments Stair Climbing Comments Painful and labored, again due to lack of saggital plane movement PT-OP-J Posture/Palpation/Skin Start: 10/12/17 15:25 Freq: Status: Active Protocol: Document 10/12/17 15:26 [facility] (Rec: 10/13/17 08:55 [facility] [id number]) Posture Evaluation Position Standing Ankle/Foot Posture (L) Pronated (R) Pronated (L) Calcaneal Eversion (R) Calcaneal Eversion Skin Assessment Edema Assessment Bilateral Foot Comments Patient presents with edema lateral left foot, dorsum of right foot PT-OP-K Range of Motion Start: 10/12/17 15:25 Freq: Status: Active Protocol: Document 10/12/17 15:26 [facility] (Rec: 10/13/17 08:55 [facility] [id number]) Knee Goniometric Range of Motion Knee ROM Limitations Comments bilateral knees WNL Ankle and Foot Goniometric Range of Motion Ankle and Foot Measured in Degrees Right Active Testing Position Sitting Dorsiflexion with Knee Flexed 8 Plantarflexion 40 Inversion 30 Eversion 35 Left Testing Position Sitting Dorsiflexion with Knee Flexed 5 Plantarflexion 50 Inversion 25 Eversion 30 Ankle and Foot ROM Limitations ROM Limitations Soft Tissue Tightness Pain Swelling PT-OP-M Strength Start: 10/12/17 15:25 Freq: Status: Active Protocol: Document 10/12/17 15:26 [facility] (Rec: 10/13/17 08:55 [facility] [id number]) Ankle/Foot Strength Ankle and Foot Manual Muscle Testing Right Dorsiflexion (L4) 4 Good Plantarflexion (S1) 4- Good- Inversion 4 Good Eversion (S1) 4 Good Left Dorsiflexion (L4) 4- Good- Plantarflexion (S1) 3- Fair- Inversion 4- Good- Eversion (S1) 4- Good- Comments painful all motions PT-OP-Q Treatments Start: 10/12/17 15:25 Freq: Status: Active Protocol: Document 11/04/17 13:51 [facility] (Rec: 11/05/17 08:40 [facility] [id number]) Therapeutic Exercises Sitting Exercises 4 Sitting Exercise Name BAPS board L2 Manual Therapy Treatment Soft Tissue Mobilization 1 Body Location left foot and ankle Mobilization Type Strumming Intensity/Depth gentle Body Position Hooklying PT-OP-R Modalities Start: 10/12/17 15:25 Freq: Status: Active Protocol: Document 11/04/17 13:51 [facility] (Rec: 11/05/17 08:40 [facility] [id number]) Electric Stimulation Electric Stimulation Interferential Current (IFC) Body Location left foot/ankle Duration (Minutes) 15 Contraction Type Normal Target/Sweep Sweep Combined With Heat/Cold Cold Pack Ultrasound Therapy Treatment Left Anterior Ankle Treatment Duration (minutes) 8 Frequency Setting (mHz) 3 Duty Cycle 100 Intensity Setting (w/cm2) 1 PT-OP-T Assessment and Plan Start: 10/12/17 15:25 Freq: Status: Active Protocol: Document 11/04/17 13:51 [facility] (Rec: 11/05/17 08:40 [facility] [id number]) Physical Therapy Assessment Goals Antalgic gait Impairment gait Central Office Equipment Engineer Goal (LTG) Patient able to ambulate with minimal to no limp using appropriate assistive device as needed LTG Duration 3 months Foot and Ankle Ability Measure ADL's Impairment 50% Central Office Equipment Engineer Goal (LTG) Improve score to at least 75% LTG Duration 3 months Lower extremity functional scale Impairment Score 38% [facility] Goal (LTG) Improve lower extremity functional scale to at least 60% LTG Duration 3 months Pain bilateral feet 6/10 Impairment pain [facility] Goal (LTG) Decrease pain to no greater than 3/10 LTG Duration 3 months Assessment Summary Assessment Reported decreased pain after treatment. Physical Therapy Plan Frequency and Duration Frequency of Treatment 2x/Week Duration of Treatment 3 months Plan of Care Start Date 10/12/17 Plan of Care End Date 01/12/18 Therapeutic Interventions Therapeutic Interventions Aquatic Therapy Gait Training Home Exercise Program Manual Therapy Neuromuscular Re-education Orthotic/Prosthetic Management Patient/Caregiver Education Self-Care/Home Management Taping Therapeutic Activities Therapeutic Exercises Modalities Cold Pack/Ice Massage Electric Stimulation Hot Packs Iontophoresis Ultrasound Next Visit Focus/Plan Next Note Type Treatment Note Next Visit Plan Gentle progression of ther ex as tolerated, evaluate response to last session.
--- NOTE | 2017-11-09 14:53 | PT.OTN ---
Current Diagnoses Primary osteoarthritis, unspecified ankle and foot (11/09/17) Pain in left foot (11/09/17) Physical Therapy Treatment Note PT-OP-A Visit Information Start: 10/12/17 15:25 Freq: Status: Active Protocol: Document 11/09/17 13:53 SAK (Rec: 11/09/17 14:50 SAK [id number]) Out-Patient Physical Therapy Visit Information Visit Information Visit Type Treatment Note Visit Start Time 13:53 Visit Stop Time 14:51 Total Visit Minutes 58 Visit Number 5 Number of ENGRAVER RUBBER Visits 0 Evaluation Information Evaluation Date 10/12/17 PT-OP-B Current Condition Start: 10/12/17 15:25 Freq: Status: Active Protocol: Document 10/12/17 15:26 SAK (Rec: 10/12/17 16:01 SAK [id number]) Current Condition History of Current Condition Onset Date 07/27/17 Current Complaints function-limiting pain bilateral feet left greater than right. History of Current Condition Woke up swollen and painful on outside of left foot 07/27/17, no known reason. Xray showed avulsion fracture of styloid process of 5th metatarsal. Wore post-op boot for 8 weeks, pain persisted with no healing of fracture. Patient wears boot still occasionally but has transitioned to wearing tennis shoes though with rigid metal insert, heel lift, and old orthotics bilaterally. States she feels pain worse wearing the metal insert as recommended by physician. Persistent pain bilateral feet, neuropathy bilateral toes, neuritis outside of right foot. Hoping to get some pain relief in PT . Currently doing water exercise for fitness but is not helping foot pain. Uses heat around her feet at night, no ice. Has not tried kinesiotape or a brace. Future Testing and Treatments Planned Scheduled for left talonavicular fusion 02/19/18. Treatment Goals Patient/Caregiver Goals Pain relief, improved function Prior Functional Status Baseline Function- ADL's Independent Baseline Function- Mobility Independent Baseline Function- Gait independent no device Baseline Function- Work/School retired Current Functional Impairments (Reported) Functional Limitations- ADL's painful Functional Limitations- Mobility/Gait painful PT-OP-C Subjective Start: 10/12/17 15:25 Freq: Status: Active Protocol: Document 11/09/17 13:53 SAK (Rec: 11/09/17 14:38 SAK [id number]) OP-PT Subjective Patient Comments Patient Comments continues to wear boot. Pain a little better after last session, pain persists today. Surgery date 02/16/18. C/o persistant right buttock and groin pain, uncertain cause. PT-OP-G Mobility & Gait Start: 10/12/17 15:25 Freq: Status: Active Protocol: Document 10/12/17 15:26 [facility] (Rec: 10/13/17 08:55 [facility] [id number]) OP Gait Assessment Gait Gait Assistance Required: Independent Assistive Devices Assistive Device None Gait Deviations General Gait Pattern Antalgic Lateral Trunk Lean Factors Limiting Gait Function Factors Limiting Gait Function Pain Comments Gait Comments Wearing bilateral metal inserts, heel lifts, orthotics : excessive lateral sway due to lack of sagittal plane movement due to metal inserts. Putting increased weight laterally on feet which is likely what is causing increase in foot pain. Stair Climbing Evaluation Evaluation Level of Assist On Stairs Independent Comments Stair Climbing Comments Painful and labored, again due to lack of saggital plane movement PT-OP-J Posture/Palpation/Skin Start: 10/12/17 15:25 Freq: Status: Active Protocol: Document 10/12/17 15:26 [facility] (Rec: 10/13/17 08:55 [facility] [id number]) Posture Evaluation Position Standing Ankle/Foot Posture (L) Pronated (R) Pronated (L) Calcaneal Eversion (R) Calcaneal Eversion Skin Assessment Edema Assessment Bilateral Foot Comments Patient presents with edema lateral left foot, dorsum of right foot PT-OP-K Range of Motion Start: 10/12/17 15:25 Freq: Status: Active Protocol: Document 10/12/17 15:26 [facility] (Rec: 10/13/17 08:55 [facility] [id number]) Knee Goniometric Range of Motion Knee ROM Limitations Comments bilateral knees WNL Ankle and Foot Goniometric Range of Motion Ankle and Foot Measured in Degrees Right Active Testing Position Sitting Dorsiflexion with Knee Flexed 8 Plantarflexion 40 Inversion 30 Eversion 35 Left Testing Position Sitting Dorsiflexion with Knee Flexed 5 Plantarflexion 50 Inversion 25 Eversion 30 Ankle and Foot ROM Limitations ROM Limitations Soft Tissue Tightness Pain Swelling PT-OP-M Strength Start: 10/12/17 15:25 Freq: Status: Active Protocol: Document 10/12/17 15:26 [facility] (Rec: 10/13/17 08:55 [facility] [id number]) Ankle/Foot Strength Ankle and Foot Manual Muscle Testing Right Dorsiflexion (L4) 4 Good Plantarflexion (S1) 4- Good- Inversion 4 Good Eversion (S1) 4 Good Left Dorsiflexion (L4) 4- Good- Plantarflexion (S1) 3- Fair- Inversion 4- Good- Eversion (S1) 4- Good- Comments painful all motions PT-OP-Q Treatments Start: 10/12/17 15:25 Freq: Status: Active Protocol: Document 11/09/17 13:53 [facility] (Rec: 11/09/17 14:38 [facility] [id number]) Cardio Equipment Recumbent Elliptical (Floop) Duration (Minutes) 10 Resistance 2 Seat Position 6 Therapeutic Exercises Supine Exercises 1 Supine Exercise Name gluteal isometric, ball squeeze, hip ab/ER with L1TB Reps/Minutes 10x Sitting Exercises 4 Sitting Exercise Name BAPS board L2 Standing Exercises 1 Standing Exercise Name HC stretch Equipment Used DAGMAR Manual Therapy Treatment Soft Tissue Mobilization 1 Body Location left foot and ankle Mobilization Type Strumming Intensity/Depth gentle Body Position Hooklying PT-OP-R Modalities Start: 10/12/17 15:25 Freq: Status: Active Protocol: Document 11/09/17 13:53 [facility] (Rec: 11/09/17 14:53 [facility] [id number]) Electric Stimulation Electric Stimulation Interferential Current (IFC) Body Location left foot/ankle Duration (Minutes) 15 Contraction Type Normal Target/Sweep Sweep Combined With Heat/Cold Cold Pack Ultrasound Therapy Treatment Left Anterior Ankle Treatment Duration (minutes) 8 Frequency Setting (mHz) 3 Duty Cycle 100 Intensity Setting (w/cm2) 1 PT-OP-T Assessment and Plan Start: 10/12/17 15:25 Freq: Status: Active Protocol: Document 11/09/17 13:53 [facility] (Rec: 11/09/17 14:53 [facility] [id number]) Physical Therapy Assessment Goals Antalgic gait Impairment gait Long-Term Goal (LTG) Patient able to ambulate with minimal to no limp using appropriate assistive device as needed LTG Duration 3 months Foot and Ankle Ability Measure ADL's Impairment 50% Long-Term Goal (LTG) Improve score to at least 75% LTG Duration 3 months Lower extremity functional scale Impairment Score 38% Long-Term Goal (LTG) Improve lower extremity functional scale to at least 60% LTG Duration 3 months Pain bilateral feet 6/10 Impairment pain Long-Term Goal (LTG) Decrease pain to no greater than 3/10 LTG Duration 3 months Assessment Summary Assessment Decreased pain after treatment . Applied ice to right buttock during seated ankle treatment. New exercises for hip to address pain which appears may be due to gait deviations; patient demonstrated good understanding. Physical Therapy Plan Frequency and Duration Frequency of Treatment 2x/Week Duration of Treatment 3 months Plan of Care Start Date 10/12/17 Plan of Care End Date 01/12/18 Therapeutic Interventions Therapeutic Interventions Aquatic Therapy Gait Training Home Exercise Program Manual Therapy Neuromuscular Re-education Orthotic/Prosthetic Management Patient/Caregiver Education Self-Care/Home Management Taping Therapeutic Activities Therapeutic Exercises Modalities Cold Pack/Ice Massage Electric Stimulation Hot Packs Iontophoresis Ultrasound Next Visit Focus/Plan Next Note Type Treatment Note Next Visit Plan Continue PT for pain management, gentle strengthening and mobility.
--- NOTE | 2017-11-14 13:15 | PT.OTN ---
Current Diagnoses Primary osteoarthritis, unspecified ankle and foot (11/11/17) Pain in left foot (11/11/17) Physical Therapy Treatment Note PT-OP-A Visit Information Start: 10/12/17 15:25 Freq: Status: Active Protocol: Document 11/11/17 13:45 [facility] (Rec: 11/14/17 13:14 [facility] [id number]) Out-Patient Physical Therapy Visit Information Visit Information Visit Type Treatment Note Visit Start Time 13:45 Visit Stop Time 15:43 Total Visit Minutes 58 Visit Number 7 Number of OFFICE AUTOMATION TECHNICIAN Visits 0 Evaluation Information Evaluation Date 10/12/17 PT-OP-B Current Condition Start: 10/12/17 15:25 Freq: Status: Active Protocol: Document 10/12/17 15:26 SAK (Rec: 10/12/17 16:01 [facility]AK [id number]) Current Condition History of Current Condition Onset Date 07/27/17 Current Complaints function-limiting pain bilateral feet left greater than right. History of Current Condition Woke up swollen and painful on outside of left foot 07/27/17, no known reason. Xray showed avulsion fracture of styloid process of 5th metatarsal. Wore post-op boot for 8 weeks, pain persisted with no healing of fracture. Patient wears boot still occasionally but has transitioned to wearing tennis shoes though with rigid metal insert, heel lift, and old orthotics bilaterally. States she feels pain worse wearing the metal insert as recommended by physician. Persistent pain bilateral feet, neuropathy bilateral toes, neuritis outside of right foot. Hoping to get some pain relief in PT . Currently doing water exercise for fitness but is not helping foot pain. Uses heat around her feet at night, no ice. Has not tried kinesiotape or a brace. Future Testing and Treatments Planned Scheduled for left talonavicular fusion 02/19/18. Treatment Goals Patient/Caregiver Goals Pain relief, improved function Prior Functional Status Baseline Function- ADL's Independent Baseline Function- Mobility Independent Baseline Function- Gait independent no device Baseline Function- Work/School retired Current Functional Impairments (Reported) Functional Limitations- ADL's painful Functional Limitations- Mobility/Gait painful PT-OP-C Subjective Start: 10/12/17 15:25 Freq: Status: Active Protocol: Document 11/11/17 13:45 [facility]AK (Rec: 11/14/17 13:14 [facility] [id number]) OP-PT Subjective Patient Comments Patient Comments Buttock pain gone after icing last session and some ice. Compliant to HEP. PT-OP-G Mobility & Gait Start: 10/12/17 15:25 Freq: Status: Active Protocol: Document 10/12/17 15:26 [facility] (Rec: 10/13/17 08:55 [facility] [id number]) OP Gait Assessment Gait Gait Assistance Required: Independent Assistive Devices Assistive Device None Gait Deviations General Gait Pattern Antalgic Lateral Trunk Lean Factors Limiting Gait Function Factors Limiting Gait Function Pain Comments Gait Comments Wearing bilateral metal inserts, heel lifts, orthotics : excessive lateral sway due to lack of sagittal plane movement due to metal inserts. Putting increased weight laterally on feet which is likely what is causing increase in foot pain. Stair Climbing Evaluation Evaluation Level of Assist On Stairs Independent Comments Stair Climbing Comments Painful and labored, again due to lack of saggital plane movement PT-OP-J Posture/Palpation/Skin Start: 10/12/17 15:25 Freq: Status: Active Protocol: Document 10/12/17 15:26 [facility] (Rec: 10/13/17 08:55 [facility] [id number]) Posture Evaluation Position Standing Ankle/Foot Posture (L) Pronated (R) Pronated (L) Calcaneal Eversion (R) Calcaneal Eversion Skin Assessment Edema Assessment Bilateral Foot Comments Patient presents with edema lateral left foot, dorsum of right foot PT-OP-K Range of Motion Start: 10/12/17 15:25 Freq: Status: Active Protocol: Document 10/12/17 15:26 [facility] (Rec: 10/13/17 08:55 [facility] [id number]) Knee Goniometric Range of Motion Knee ROM Limitations Comments bilateral knees WNL Ankle and Foot Goniometric Range of Motion Ankle and Foot Measured in Degrees Right Active Testing Position Sitting Dorsiflexion with Knee Flexed 8 Plantarflexion 40 Inversion 30 Eversion 35 Left Testing Position Sitting Dorsiflexion with Knee Flexed 5 Plantarflexion 50 Inversion 25 Eversion 30 Ankle and Foot ROM Limitations ROM Limitations Soft Tissue Tightness Pain Swelling PT-OP-M Strength Start: 10/12/17 15:25 Freq: Status: Active Protocol: Document 10/12/17 15:26 [facility] (Rec: 10/13/17 08:55 [facility] [id number]) Ankle/Foot Strength Ankle and Foot Manual Muscle Testing Right Dorsiflexion (L4) 4 Good Plantarflexion (S1) 4- Good- Inversion 4 Good Eversion (S1) 4 Good Left Dorsiflexion (L4) 4- Good- Plantarflexion (S1) 3- Fair- Inversion 4- Good- Eversion (S1) 4- Good- Comments painful all motions PT-OP-Q Treatments Start: 10/12/17 15:25 Freq: Status: Active Protocol: Document 11/11/17 13:45 [facility] (Rec: 11/14/17 13:14 [facility] [id number]) Cardio Equipment Recumbent Elliptical (Biodex) Duration (Minutes) 10 Resistance 2 Seat Position 6 Therapeutic Exercises Standing Exercises 1 Standing Exercise Name HC stretch Equipment Used DAGMAR Manual Therapy Treatment Soft Tissue Mobilization 1 Body Location left foot and ankle Mobilization Type Strumming Intensity/Depth gentle Body Position Hooklying Taping 1 Body Location gloria foot Treatment Focus arch support Type of Tape Kinesio Tape Comments 2 I strips for arch support PT-OP-R Modalities Start: 10/12/17 15:25 Freq: Status: Active Protocol: Document 11/11/17 13:45 [facility] (Rec: 11/14/17 13:14 [facility] [id number]) Electric Stimulation Electric Stimulation Interferential Current (IFC) Body Location left foot/ankle Duration (Minutes) 15 Contraction Type Normal Target/Sweep Sweep Combined With Heat/Cold Cold Pack Ultrasound Therapy Treatment Left Anterior Ankle Treatment Duration (minutes) 8 Frequency Setting (mHz) 3 Duty Cycle 100 Intensity Setting (w/cm2) 1 PT-OP-T Assessment and Plan Start: 10/12/17 15:25 Freq: Status: Active Protocol: Document 11/11/17 13:45 [facility] (Rec: 11/14/17 13:14 [facility] [id number]) Physical Therapy Assessment Goals Antalgic gait Impairment gait Long-Term Goal (LTG) Patient able to ambulate with minimal to no limp using appropriate assistive device as needed LTG Duration 3 months Foot and Ankle Ability Measure ADL's Impairment 50% Long-Term Goal (LTG) Improve score to at least 75% LTG Duration 3 months Lower extremity functional scale Impairment Score 38% Long-Term Goal (LTG) Improve lower extremity functional scale to at least 60% LTG Duration 3 months Pain bilateral feet 6/10 Impairment pain Long-Term Goal (LTG) Decrease pain to no greater than 3/10 LTG Duration 3 months Assessment Summary Assessment Reports buttock pain gone after icing last session and more icing at home. No new Physical Therapy Plan Frequency and Duration Frequency of Treatment 2x/Week Duration of Treatment 3 months Plan of Care Start Date 10/12/17 Plan of Care End Date 01/12/18 Therapeutic Interventions Therapeutic Interventions Aquatic Therapy Gait Training Home Exercise Program Manual Therapy Neuromuscular Re-education Orthotic/Prosthetic Management Patient/Caregiver Education Self-Care/Home Management Taping Therapeutic Activities Therapeutic Exercises Modalities Cold Pack/Ice Massage Electric Stimulation Hot Packs Iontophoresis Ultrasound Next Visit Focus/Plan Next Note Type Treatment Note Next Visit Plan Continue PT for pain management, gentle strengthening and mobility.
--- NOTE | 2017-11-16 14:44 | PT.OTN ---
Current Diagnoses Primary osteoarthritis, unspecified ankle and foot (11/16/17) Pain in left foot (11/16/17) Physical Therapy Treatment Note PT-OP-A Visit Information Start: 10/12/17 15:25 Freq: Status: Active Protocol: Document 11/16/17 13:47 [facility]AK (Rec: 11/16/17 14:32 [facility] [id number]) Out-Patient Physical Therapy Visit Information Visit Information Visit Type Treatment Note Visit Start Time 13:45 Visit Stop Time 15:40 Total Visit Minutes 55 Visit Number 8 Number of TARPER Visits 0 Evaluation Information Evaluation Date 10/12/17 PT-OP-B Current Condition Start: 10/12/17 15:25 Freq: Status: Active Protocol: Document 10/12/17 15:26 [facility]AK (Rec: 10/12/17 16:01 [facility]AK [id number]) Current Condition History of Current Condition Onset Date 07/27/17 Current Complaints function-limiting pain bilateral feet left greater than right. History of Current Condition Woke up swollen and painful on outside of left foot 07/27/17, no known reason. Xray showed avulsion fracture of styloid process of 5th metatarsal. Wore post-op boot for 8 weeks, pain persisted with no healing of fracture. Patient wears boot still occasionally but has transitioned to wearing tennis shoes though with rigid metal insert, heel lift, and old orthotics bilaterally. States she feels pain worse wearing the metal insert as recommended by physician. Persistent pain bilateral feet, neuropathy bilateral toes, neuritis outside of right foot. Hoping to get some pain relief in PT . Currently doing water exercise for fitness but is not helping foot pain. Uses heat around her feet at night, no ice. Has not tried kinesiotape or a brace. Future Testing and Treatments Planned Scheduled for left talonavicular fusion 02/19/18. Treatment Goals Patient/Caregiver Goals Pain relief, improved function Prior Functional Status Baseline Function- ADL's Independent Baseline Function- Mobility Independent Baseline Function- Gait independent no device Baseline Function- Work/School retired Current Functional Impairments (Reported) Functional Limitations- ADL's painful Functional Limitations- Mobility/Gait painful PT-OP-C Subjective Start: 10/12/17 15:25 Freq: Status: Active Protocol: Document 11/16/17 13:47 [facility]AK (Rec: 11/16/17 14:32 [facility] [id number]) OP-PT Subjective Patient Comments Patient Comments weaning off of Prednisone, very emotional PT-OP-G Mobility & Gait Start: 10/12/17 15:25 Freq: Status: Active Protocol: Document 10/12/17 15:26 [facility] (Rec: 10/13/17 08:55 [facility] [id number]) OP Gait Assessment Gait Gait Assistance Required: Independent Assistive Devices Assistive Device None Gait Deviations General Gait Pattern Antalgic Lateral Trunk Lean Factors Limiting Gait Function Factors Limiting Gait Function Pain Comments Gait Comments Wearing bilateral metal inserts, heel lifts, orthotics : excessive lateral sway due to lack of sagittal plane movement due to metal inserts. Putting increased weight laterally on feet which is likely what is causing increase in foot pain. Stair Climbing Evaluation Evaluation Level of Assist On Stairs Independent Comments Stair Climbing Comments Painful and labored, again due to lack of saggital plane movement PT-OP-J Posture/Palpation/Skin Start: 10/12/17 15:25 Freq: Status: Active Protocol: Document 10/12/17 15:26 [facility] (Rec: 10/13/17 08:55 [facility] [id number]) Posture Evaluation Position Standing Ankle/Foot Posture (L) Pronated (R) Pronated (L) Calcaneal Eversion (R) Calcaneal Eversion Skin Assessment Edema Assessment Bilateral Foot Comments Patient presents with edema lateral left foot, dorsum of right foot PT-OP-K Range of Motion Start: 10/12/17 15:25 Freq: Status: Active Protocol: Document 10/12/17 15:26 [facility] (Rec: 10/13/17 08:55 [facility] [id number]) Knee Goniometric Range of Motion Knee ROM Limitations Comments bilateral knees WNL Ankle and Foot Goniometric Range of Motion Ankle and Foot Measured in Degrees Right Active Testing Position Sitting Dorsiflexion with Knee Flexed 8 Plantarflexion 40 Inversion 30 Eversion 35 Left Testing Position Sitting Dorsiflexion with Knee Flexed 5 Plantarflexion 50 Inversion 25 Eversion 30 Ankle and Foot ROM Limitations ROM Limitations Soft Tissue Tightness Pain Swelling PT-OP-M Strength Start: 10/12/17 15:25 Freq: Status: Active Protocol: Document 10/12/17 15:26 [facility] (Rec: 10/13/17 08:55 [facility] [id number]) Ankle/Foot Strength Ankle and Foot Manual Muscle Testing Right Dorsiflexion (L4) 4 Good Plantarflexion (S1) 4- Good- Inversion 4 Good Eversion (S1) 4 Good Left Dorsiflexion (L4) 4- Good- Plantarflexion (S1) 3- Fair- Inversion 4- Good- Eversion (S1) 4- Good- Comments painful all motions PT-OP-Q Treatments Start: 10/12/17 15:25 Freq: Status: Active Protocol: Document 11/16/17 13:47 [facility] (Rec: 11/16/17 14:32 [facility] [id number]) Cardio Equipment Recumbent Elliptical (Biodex) Duration (Minutes) 10 Resistance 2 Seat Position 6 Therapeutic Exercises Sitting Exercises 4 Sitting Exercise Name BAPS board L3 Standing Exercises 1 Standing Exercise Name HC stretch Equipment Used DAGMAR Manual Therapy Treatment Soft Tissue Mobilization 1 Body Location left foot and ankle Mobilization Type Strumming Intensity/Depth gentle Body Position Hooklying Taping 1 Body Location gloria foot Treatment Focus arch support Type of Tape Kinesio Tape Comments 2 I strips for arch support PT-OP-R Modalities Start: 10/12/17 15:25 Freq: Status: Active Protocol: Document 11/16/17 13:47 [facility] (Rec: 11/16/17 14:32 [facility] [id number]) Electric Stimulation Electric Stimulation Interferential Current (IFC) Body Location left foot/ankle Duration (Minutes) 15 Contraction Type Normal Target/Sweep Sweep Combined With Heat/Cold Cold Pack Ultrasound Therapy Treatment Left Anterior Ankle Treatment Duration (minutes) 8 Frequency Setting (mHz) 3 Duty Cycle 100 Intensity Setting (w/cm2) 1 PT-OP-T Assessment and Plan Start: 10/12/17 15:25 Freq: Status: Active Protocol: Document 11/16/17 13:47 [facility] (Rec: 11/16/17 14:32 [facility] [id number]) Physical Therapy Assessment Goals Antalgic gait Impairment gait Mcc Goal (LTG) Patient able to ambulate with minimal to no limp using appropriate assistive device as needed LTG Duration 3 months Foot and Ankle Ability Measure ADL's Impairment 50% Mcc Goal (LTG) Improve score to at least 75% LTG Duration 3 months Lower extremity functional scale Impairment Score 38% M[facility] Goal (LTG) Improve lower extremity functional scale to at least 60% LTG Duration 3 months Pain bilateral feet 6/10 Impairment pain Mcc Goal (LTG) Decrease pain to no greater than 3/10 LTG Duration 3 months Assessment Summary Assessment Buttock pain returned, thinks maybe due to kicking in pool. Good coompliance to HEP for ankle and foot ROM and strengthening. Increased aching of arches as well as emotional lability possibly due to weaning from Prednisone ; patient to talk with physician. Physical Therapy Plan Frequency and Duration Frequency of Treatment 2x/Week Duration of Treatment 3 months Plan of Care Start Date 10/12/17 Plan of Care End Date 01/12/18 Therapeutic Interventions Therapeutic Interventions Aquatic Therapy Gait Training Home Exercise Program Manual Therapy Neuromuscular Re-education Orthotic/Prosthetic Management Patient/Caregiver Education Self-Care/Home Management Taping Therapeutic Activities Therapeutic Exercises Modalities Cold Pack/Ice Massage Electric Stimulation Hot Packs Iontophoresis Ultrasound Next Visit Focus/Plan Next Note Type Treatment Note Next Visit Plan Progression of ther ex, pain management as tolerated.
--- NOTE | 2017-11-18 16:36 | PT.OTN ---
Current Diagnoses Primary osteoarthritis, unspecified ankle and foot (11/18/17) Pain in left foot (11/18/17) Physical Therapy Treatment Note PT-OP-A Visit Information Start: 10/12/17 15:25 Freq: Status: Active Protocol: Document 11/18/17 13:53 [facility] (Rec: 11/18/17 16:36 [facility] [id number]) Out-Patient Physical Therapy Visit Information Visit Information Visit Type Treatment Note Visit Start Time 13:45 Visit Stop Time 15:40 Total Visit Minutes 55 Visit Number 9/10 Number of PUBLIC HEALTH DOCTOR Visits 0 Evaluation Information Evaluation Date 10/12/17 PT-OP-B Current Condition Start: 10/12/17 15:25 Freq: Status: Active Protocol: Document 10/12/17 15:26 [facility] (Rec: 10/12/17 16:01 [facility] [id number]) Current Condition History of Current Condition Onset Date 07/27/17 Current Complaints function-limiting pain bilateral feet left greater than right. History of Current Condition Woke up swollen and painful on outside of left foot 07/27/17, no known reason. Xray showed avulsion fracture of styloid process of 5th metatarsal. Wore post-op boot for 8 weeks, pain persisted with no healing of fracture. Patient wears boot still occasionally but has transitioned to wearing tennis shoes though with rigid metal insert, heel lift, and old orthotics bilaterally. States she feels pain worse wearing the metal insert as recommended by physician. Persistent pain bilateral feet, neuropathy bilateral toes, neuritis outside of right foot. Hoping to get some pain relief in PT . Currently doing water exercise for fitness but is not helping foot pain. Uses heat around her feet at night, no ice. Has not tried kinesiotape or a brace. Future Testing and Treatments Planned Scheduled for left talonavicular fusion 02/19/18. Treatment Goals Patient/Caregiver Goals Pain relief, improved function Prior Functional Status Baseline Function- ADL's Independent Baseline Function- Mobility Independent Baseline Function- Gait independent no device Baseline Function- Work/School retired Current Functional Impairments (Reported) Functional Limitations- ADL's painful Functional Limitations- Mobility/Gait painful PT-OP-C Subjective Start: 10/12/17 15:25 Freq: Status: Active Protocol: Document 11/18/17 13:53 [facility] (Rec: 11/18/17 16:36 [facility] [id number]) OP-PT Subjective Patient Comments Patient Comments Has increased Prednisone slightly per physician recomendation. Increased pain if overdoes at pool, learning to pace but difficult both in and out of the pool. PT-OP-G Mobility & Gait Start: 10/12/17 15:25 Freq: Status: Active Protocol: Document 10/12/17 15:26 [facility] (Rec: 10/13/17 08:55 [facility] [id number]) OP Gait Assessment Gait Gait Assistance Required: Independent Assistive Devices Assistive Device None Gait Deviations General Gait Pattern Antalgic Lateral Trunk Lean Factors Limiting Gait Function Factors Limiting Gait Function Pain Comments Gait Comments Wearing bilateral metal inserts, heel lifts, orthotics : excessive lateral sway due to lack of sagittal plane movement due to metal inserts. Putting increased weight laterally on feet which is likely what is causing increase in foot pain. Stair Climbing Evaluation Evaluation Level of Assist On Stairs Independent Comments Stair Climbing Comments Painful and labored, again due to lack of saggital plane movement PT-OP-J Posture/Palpation/Skin Start: 10/12/17 15:25 Freq: Status: Active Protocol: Document 10/12/17 15:26 [facility] (Rec: 10/13/17 08:55 [facility] [id number]) Posture Evaluation Position Standing Ankle/Foot Posture (L) Pronated (R) Pronated (L) Calcaneal Eversion (R) Calcaneal Eversion Skin Assessment Edema Assessment Bilateral Foot Comments Patient presents with edema lateral left foot, dorsum of right foot PT-OP-K Range of Motion Start: 10/12/17 15:25 Freq: Status: Active Protocol: Document 10/12/17 15:26 [facility] (Rec: 10/13/17 08:55 [facility] [id number]) Knee Goniometric Range of Motion Knee ROM Limitations Comments bilateral knees WNL Ankle and Foot Goniometric Range of Motion Ankle and Foot Measured in Degrees Right Active Testing Position Sitting Dorsiflexion with Knee Flexed 8 Plantarflexion 40 Inversion 30 Eversion 35 Left Testing Position Sitting Dorsiflexion with Knee Flexed 5 Plantarflexion 50 Inversion 25 Eversion 30 Ankle and Foot ROM Limitations ROM Limitations Soft Tissue Tightness Pain Swelling PT-OP-M Strength Start: 10/12/17 15:25 Freq: Status: Active Protocol: Document 10/12/17 15:26 [facility] (Rec: 10/13/17 08:55 [facility] [id number]) Ankle/Foot Strength Ankle and Foot Manual Muscle Testing Right Dorsiflexion (L4) 4 Good Plantarflexion (S1) 4- Good- Inversion 4 Good Eversion (S1) 4 Good Left Dorsiflexion (L4) 4- Good- Plantarflexion (S1) 3- Fair- Inversion 4- Good- Eversion (S1) 4- Good- Comments painful all motions PT-OP-Q Treatments Start: 10/12/17 15:25 Freq: Status: Active Protocol: Document 11/18/17 13:53 [facility] (Rec: 11/18/17 16:36 [facility] [id number]) Cardio Equipment Recumbent Elliptical (Biodex) Duration (Minutes) 10 Resistance 2 Seat Position 6 Therapeutic Exercises Sitting Exercises 4 Sitting Exercise Name BAPS board L3 Comments AP, side, circles Standing Exercises 1 Standing Exercise Name HC stretch Equipment Used DAGMAR Manual Therapy Treatment Soft Tissue Mobilization 1 Body Location left foot and ankle Mobilization Type Strumming Intensity/Depth gentle Body Position Hooklying Taping 1 Body Location gloria foot Treatment Focus arch support Type of Tape Kinesio Tape Comments 2 I strips for arch support PT-OP-R Modalities Start: 10/12/17 15:25 Freq: Status: Active Protocol: Document 11/18/17 13:53 [facility] (Rec: 11/18/17 16:36 [facility] [id number]) Electric Stimulation Electric Stimulation Interferential Current (IFC) Body Location left foot/ankle Duration (Minutes) 15 Contraction Type Normal Target/Sweep Sweep Combined With Heat/Cold Cold Pack Ultrasound Therapy Treatment Left Anterior Ankle Treatment Duration (minutes) 8 Frequency Setting (mHz) 3 Duty Cycle 100 Intensity Setting (w/cm2) 1 PT-OP-T Assessment and Plan Start: 10/12/17 15:25 Freq: Status: Active Protocol: Document 11/18/17 13:53 [facility] (Rec: 11/18/17 16:36 [facility] [id number]) Physical Therapy Assessment Goals Antalgic gait Impairment gait Vascular Ultrasound Technologist Goal (LTG) Patient able to ambulate with minimal to no limp using appropriate assistive device as needed LTG Duration 3 months Foot and Ankle Ability Measure ADL's Impairment 50% Vascular Ultrasound Technologist Goal (LTG) Improve score to at least 75% LTG Duration 3 months Lower extremity functional scale Impairment Score 38% Prison Goal (LTG) Improve lower extremity functional scale to at least 60% LTG Duration 3 months Pain bilateral feet 6/10 Impairment pain Vascular Ultrasound Technologist Goal (LTG) Decrease pain to no greater than 3/10 LTG Duration 3 months Assessment Summary Assessment Reports decreased pain after PT, taking recommendations for pacing herself though difficult. Physical Therapy Plan Frequency and Duration Frequency of Treatment 2x/Week Duration of Treatment 3 months Plan of Care Start Date 10/12/17 Plan of Care End Date 01/12/18 Therapeutic Interventions Therapeutic Interventions Aquatic Therapy Gait Training Home Exercise Program Manual Therapy Neuromuscular Re-education Orthotic/Prosthetic Management Patient/Caregiver Education Self-Care/Home Management Taping Therapeutic Activities Therapeutic Exercises Modalities Cold Pack/Ice Massage Electric Stimulation Hot Packs Iontophoresis Ultrasound Next Visit Focus/Plan Next Note Type Progress Note Next Visit Plan Progression of ther ex, pain management as tolerated.
--- NOTE | 2017-11-30 14:52 | PT.OTN ---
Addendum entered and electronically signed by Julee Gee, PT 11/30/17 15:08: Late entry for 11/25/17 PT visit Original Note: Current Diagnoses Primary osteoarthritis, unspecified ankle and foot (11/30/17) Pain in left foot (11/30/17) Physical Therapy Treatment Note PT-OP-A Visit Information Start: 10/12/17 15:25 Freq: Status: Active Protocol: Document 11/25/17 13:50 [facility] (Rec: 11/25/17 14:10 [facility] [id number]) Out-Patient Physical Therapy Visit Information Visit Information Visit Type Treatment Note Visit Start Time 13:45 Visit Number 11/15 Number of METAL FURNITURE POLISHER Visits 0 Evaluation Information Evaluation Date 10/12/17 PT-OP-B Current Condition Start: 10/12/17 15:25 Freq: Status: Active Protocol: Document 10/12/17 15:26 [facility] (Rec: 10/12/17 16:01 [facility] [id number]) Current Condition History of Current Condition Onset Date 07/27/17 Current Complaints function-limiting pain bilateral feet left greater than right. History of Current Condition Woke up swollen and painful on outside of left foot 07/27/17, no known reason. Xray showed avulsion fracture of styloid process of 5th metatarsal. Wore post-op boot for 8 weeks, pain persisted with no healing of fracture. Patient wears boot still occasionally but has transitioned to wearing tennis shoes though with rigid metal insert, heel lift, and old orthotics bilaterally. States she feels pain worse wearing the metal insert as recommended by physician. Persistent pain bilateral feet, neuropathy bilateral toes, neuritis outside of right foot. Hoping to get some pain relief in PT . Currently doing water exercise for fitness but is not helping foot pain. Uses heat around her feet at night, no ice. Has not tried kinesiotape or a brace. Future Testing and Treatments Planned Scheduled for left talonavicular fusion 02/19/18. Treatment Goals Patient/Caregiver Goals Pain relief, improved function Prior Functional Status Baseline Function- ADL's Independent Baseline Function- Mobility Independent Baseline Function- Gait independent no device Baseline Function- Work/School retired Current Functional Impairments (Reported) Functional Limitations- ADL's painful Functional Limitations- Mobility/Gait painful PT-OP-C Subjective Start: 10/12/17 15:25 Freq: Status: Active Protocol: Document 11/25/17 13:50 [facility] (Rec: 11/25/17 14:10 [facility] [id number]) OP-PT Subjective Patient Comments Patient Comments Testing showed no RA, now weaning off Prednisone, has discontinued Leuflonomide per physician. x-ray shows OA with osteophytes. PT-OP-G Mobility & Gait Start: 10/12/17 15:25 Freq: Status: Active Protocol: Document 10/12/17 15:26 [facility] (Rec: 10/13/17 08:55 [facility] [id number]) OP Gait Assessment Gait Gait Assistance Required: Independent Assistive Devices Assistive Device None Gait Deviations General Gait Pattern Antalgic Lateral Trunk Lean Factors Limiting Gait Function Factors Limiting Gait Function Pain Comments Gait Comments Wearing bilateral metal inserts, heel lifts, orthotics : excessive lateral sway due to lack of sagittal plane movement due to metal inserts. Putting increased weight laterally on feet which is likely what is causing increase in foot pain. Stair Climbing Evaluation Evaluation Level of Assist On Stairs Independent Comments Stair Climbing Comments Painful and labored, again due to lack of saggital plane movement PT-OP-J Posture/Palpation/Skin Start: 10/12/17 15:25 Freq: Status: Active Protocol: Document 10/12/17 15:26 [facility] (Rec: 10/13/17 08:55 [facility] [id number]) Posture Evaluation Position Standing Ankle/Foot Posture (L) Pronated (R) Pronated (L) Calcaneal Eversion (R) Calcaneal Eversion Skin Assessment Edema Assessment Bilateral Foot Comments Patient presents with edema lateral left foot, dorsum of right foot PT-OP-K Range of Motion Start: 10/12/17 15:25 Freq: Status: Active Protocol: Document 10/12/17 15:26 [facility] (Rec: 10/13/17 08:55 [facility] [id number]) Knee Goniometric Range of Motion Knee ROM Limitations Comments bilateral knees WNL Ankle and Foot Goniometric Range of Motion Ankle and Foot Measured in Degrees Right Active Testing Position Sitting Dorsiflexion with Knee Flexed 8 Plantarflexion 40 Inversion 30 Eversion 35 Left Testing Position Sitting Dorsiflexion with Knee Flexed 5 Plantarflexion 50 Inversion 25 Eversion 30 Ankle and Foot ROM Limitations ROM Limitations Soft Tissue Tightness Pain Swelling PT-OP-M Strength Start: 10/12/17 15:25 Freq: Status: Active Protocol: Document 10/12/17 15:26 [facility] (Rec: 10/13/17 08:55 [facility] [id number]) Ankle/Foot Strength Ankle and Foot Manual Muscle Testing Right Dorsiflexion (L4) 4 Good Plantarflexion (S1) 4- Good- Inversion 4 Good Eversion (S1) 4 Good Left Dorsiflexion (L4) 4- Good- Plantarflexion (S1) 3- Fair- Inversion 4- Good- Eversion (S1) 4- Good- Comments painful all motions PT-OP-Q Treatments Start: 10/12/17 15:25 Freq: Status: Active Protocol: Document 11/25/17 13:50 [facility] (Rec: 11/25/17 14:10 [facility] [id number]) Cardio Equipment Recumbent Elliptical (Biodex) Duration (Minutes) 10 Resistance 2 Seat Position 6 Therapeutic Exercises Sitting Exercises 4 Sitting Exercise Name BAPS board L3 Comments AP, side, circles Standing Exercises 1 Standing Exercise Name HC stretch Equipment Used DAGMAR Manual Therapy Treatment Soft Tissue Mobilization 1 Body Location left foot and ankle Mobilization Type Strumming Intensity/Depth gentle Body Position Hooklying Taping 1 Body Location gloria foot Treatment Focus arch support Type of Tape Kinesio Tape Comments 2 I strips for arch support PT-OP-R Modalities Start: 10/12/17 15:25 Freq: Status: Active Protocol: Document 11/25/17 13:50 [facility] (Rec: 11/25/17 14:10 [facility] [id number]) Electric Stimulation Electric Stimulation Interferential Current (IFC) Body Location left foot/ankle Duration (Minutes) 15 Contraction Type Normal Target/Sweep Sweep Combined With Heat/Cold Cold Pack PT-OP-T Assessment and Plan Start: 10/12/17 15:25 Freq: Status: Active Protocol: Document 11/25/17 13:50 [facility] (Rec: 11/30/17 14:51 [facility] [id number]) Physical Therapy Assessment Goals Antalgic gait Impairment gait Cabbage Salter Goal (LTG) Patient able to ambulate with minimal to no limp using appropriate assistive device as needed LTG Duration 3 months Foot and Ankle Ability Measure ADL's Impairment 50% Cabbage Salter Goal (LTG) Improve score to at least 75% LTG Duration 3 months Lower extremity functional scale Impairment Score 38% [facility] Goal (LTG) Improve lower extremity functional scale to at least 60% LTG Duration 3 months Pain bilateral feet 6/10 Impairment pain Mcfp Goal (LTG) Decrease pain to no greater than 3/10 LTG Duration 3 months Assessment Summary Assessment Patient benefiting from physical therapy for pain management, gentle ther ex, patient ed. More compliant to pacing of activity. Would benefit from continued PT as she prepares for surgery. Physical Therapy Plan Frequency and Duration Frequency of Treatment 2x/Week Duration of Treatment 3 months Plan of Care Start Date 10/12/17 Plan of Care End Date 01/12/18 Therapeutic Interventions Therapeutic Interventions Aquatic Therapy Gait Training Home Exercise Program Manual Therapy Neuromuscular Re-education Orthotic/Prosthetic Management Patient/Caregiver Education Self-Care/Home Management Taping Therapeutic Activities Therapeutic Exercises Modalities Cold Pack/Ice Massage Electric Stimulation Hot Packs Iontophoresis Ultrasound Next Visit Focus/Plan Next Note Type Treatment Note Next Visit Plan Progression of ther ex, pain management as tolerated.
--- NOTE | 2017-11-30 15:16 | PT.OTN ---
Current Diagnoses Primary osteoarthritis, unspecified ankle and foot (11/30/17) Pain in left foot (11/30/17) Physical Therapy Treatment Note PT-OP-A Visit Information Start: 10/12/17 15:25 Freq: Status: Active Protocol: Document 11/30/17 15:08 [facility] (Rec: 11/30/17 15:16 [facility] [id number]) Out-Patient Physical Therapy Visit Information Visit Information Visit Type Treatment Note Visit Start Time 13:45 Visit Stop Time 14:45 Total Visit Minutes 55 Visit Number 10 Number of VULCANIZER OPERATOR Visits 0 Evaluation Information Evaluation Date 10/12/17 PT-OP-B Current Condition Start: 10/12/17 15:25 Freq: Status: Active Protocol: Document 10/12/17 15:26 [facility] (Rec: 10/12/17 16:01 [facility] [id number]) Current Condition History of Current Condition Onset Date 07/27/17 Current Complaints function-limiting pain bilateral feet left greater than right. History of Current Condition Woke up swollen and painful on outside of left foot 07/27/17, no known reason. Xray showed avulsion fracture of styloid process of 5th metatarsal. Wore post-op boot for 8 weeks, pain persisted with no healing of fracture. Patient wears boot still occasionally but has transitioned to wearing tennis shoes though with rigid metal insert, heel lift, and old orthotics bilaterally. States she feels pain worse wearing the metal insert as recommended by physician. Persistent pain bilateral feet, neuropathy bilateral toes, neuritis outside of right foot. Hoping to get some pain relief in PT . Currently doing water exercise for fitness but is not helping foot pain. Uses heat around her feet at night, no ice. Has not tried kinesiotape or a brace. Future Testing and Treatments Planned Scheduled for left talonavicular fusion 02/19/18. Treatment Goals Patient/Caregiver Goals Pain relief, improved function Prior Functional Status Baseline Function- ADL's Independent Baseline Function- Mobility Independent Baseline Function- Gait independent no device Baseline Function- Work/School retired Current Functional Impairments (Reported) Functional Limitations- ADL's painful Functional Limitations- Mobility/Gait painful PT-OP-C Subjective Start: 10/12/17 15:25 Freq: Status: Active Protocol: Document 11/30/17 15:08 [facility] (Rec: 11/30/17 15:16 [facility] [id number]) OP-PT Subjective Patient Comments Patient Comments Patient reports her shoulders were very sore past few days so wasn't as active; probably the least active I've been in a long time. Feet and ankles feel better with more rest. PT-OP-G Mobility & Gait Start: 10/12/17 15:25 Freq: Status: Active Protocol: Document 10/12/17 15:26 [facility] (Rec: 10/13/17 08:55 [facility] [id number]) OP Gait Assessment Gait Gait Assistance Required: Independent Assistive Devices Assistive Device None Gait Deviations General Gait Pattern Antalgic Lateral Trunk Lean Factors Limiting Gait Function Factors Limiting Gait Function Pain Comments Gait Comments Wearing bilateral metal inserts, heel lifts, orthotics : excessive lateral sway due to lack of sagittal plane movement due to metal inserts. Putting increased weight laterally on feet which is likely what is causing increase in foot pain. Stair Climbing Evaluation Evaluation Level of Assist On Stairs Independent Comments Stair Climbing Comments Painful and labored, again due to lack of saggital plane movement PT-OP-J Posture/Palpation/Skin Start: 10/12/17 15:25 Freq: Status: Active Protocol: Document 10/12/17 15:26 [facility] (Rec: 10/13/17 08:55 [facility] [id number]) Posture Evaluation Position Standing Ankle/Foot Posture (L) Pronated (R) Pronated (L) Calcaneal Eversion (R) Calcaneal Eversion Skin Assessment Edema Assessment Bilateral Foot Comments Patient presents with edema lateral left foot, dorsum of right foot PT-OP-K Range of Motion Start: 10/12/17 15:25 Freq: Status: Active Protocol: Document 10/12/17 15:26 [facility] (Rec: 10/13/17 08:55 [facility] [id number]) Knee Goniometric Range of Motion Knee ROM Limitations Comments bilateral knees WNL Ankle and Foot Goniometric Range of Motion Ankle and Foot Measured in Degrees Right Active Testing Position Sitting Dorsiflexion with Knee Flexed 8 Plantarflexion 40 Inversion 30 Eversion 35 Left Testing Position Sitting Dorsiflexion with Knee Flexed 5 Plantarflexion 50 Inversion 25 Eversion 30 Ankle and Foot ROM Limitations ROM Limitations Soft Tissue Tightness Pain Swelling PT-OP-M Strength Start: 10/12/17 15:25 Freq: Status: Active Protocol: Document 10/12/17 15:26 [facility] (Rec: 10/13/17 08:55 [facility] [id number]) Ankle/Foot Strength Ankle and Foot Manual Muscle Testing Right Dorsiflexion (L4) 4 Good Plantarflexion (S1) 4- Good- Inversion 4 Good Eversion (S1) 4 Good Left Dorsiflexion (L4) 4- Good- Plantarflexion (S1) 3- Fair- Inversion 4- Good- Eversion (S1) 4- Good- Comments painful all motions PT-OP-Q Treatments Start: 10/12/17 15:25 Freq: Status: Active Protocol: Document 11/30/17 15:08 [facility] (Rec: 11/30/17 15:16 [facility] [id number]) Cardio Equipment Recumbent Elliptical (Biodex) Duration (Minutes) 10 Resistance 2 Seat Position 6 Therapeutic Exercises Sitting Exercises 4 Sitting Exercise Name BAPS board L3 Comments AP, side, circles Standing Exercises 1 Standing Exercise Name HC stretch Equipment Used DAGMAR Manual Therapy Treatment Soft Tissue Mobilization 1 Body Location left foot and ankle Mobilization Type Strumming Intensity/Depth gentle Body Position Hooklying Taping 1 Body Location gloria foot Treatment Focus edema reduction Type of Tape Kinesio Tape Comments 2 fan strips PT-OP-R Modalities Start: 10/12/17 15:25 Freq: Status: Active Protocol: Document 11/30/17 15:08 [facility] (Rec: 11/30/17 15:16 [facility] [id number]) Electric Stimulation Electric Stimulation Interferential Current (IFC) Body Location left foot/ankle Duration (Minutes) 15 Contraction Type Normal Target/Sweep Sweep Combined With Heat/Cold Cold Pack Comments cryocuff Ultrasound Therapy Treatment Left Anterior Ankle Treatment Duration (minutes) 8 Frequency Setting (mHz) 3 Duty Cycle 100 Intensity Setting (w/cm2) 1 PT-OP-T Assessment and Plan Start: 10/12/17 15:25 Freq: Status: Active Protocol: Document 11/30/17 15:08 [facility] (Rec: 11/30/17 15:16 [facility] [id number]) Physical Therapy Assessment Goals Antalgic gait Impairment gait [facility] Goal (LTG) Patient able to ambulate with minimal to no limp using appropriate assistive device as needed LTG Duration 3 months Foot and Ankle Ability Measure ADL's Impairment 50% Private Branch Exchange Repairer Goal (LTG) Improve score to at least 75% LTG Duration 3 months Lower extremity functional scale Impairment Score 38% [employer] Exchange Repairer Goal (LTG) Improve lower extremity functional scale to at least 60% LTG Duration 3 months Pain bilateral feet 6/10 Impairment pain Ch[facility] Goal (LTG) Decrease pain to no greater than 3/10 LTG Duration 3 months Assessment Summary Assessment Reports liking cryocuff better than ice pack. benefiting from PT; recommend continued PT as patient prepares for surgery. Physical Therapy Plan Frequency and Duration Frequency of Treatment 2x/Week Duration of Treatment 3 months Plan of Care Start Date 10/12/17 Plan of Care End Date 01/12/18 Therapeutic Interventions Therapeutic Interventions Aquatic Therapy Gait Training Home Exercise Program Manual Therapy Neuromuscular Re-education Orthotic/Prosthetic Management Patient/Caregiver Education Self-Care/Home Management Taping Therapeutic Activities Therapeutic Exercises Modalities Cold Pack/Ice Massage Electric Stimulation Hot Packs Iontophoresis Ultrasound Next Visit Focus/Plan Next Note Type Treatment Note Next Visit Plan Continue left foot/ankle rehab per POC
--- NOTE | 2017-12-07 16:37 | PT.OTN ---
Current Diagnoses Primary osteoarthritis, unspecified ankle and foot (12/07/17) Pain in left foot (12/07/17) Physical Therapy Treatment Note PT-OP-A Visit Information Start: 10/12/17 15:25 Freq: Status: Active Protocol: Document 12/07/17 13:49 [facility] (Rec: 12/07/17 14:29 [facility] [id number]) Out-Patient Physical Therapy Visit Information Visit Information Visit Type Treatment Note Visit Start Time 13:45 Visit Stop Time 14:45 Total Visit Minutes 56 Visit Number 01/25 Number of PHARMACEUTICAL PLANT OPERATOR Visits 0 Evaluation Information Evaluation Date 10/12/17 PT-OP-B Current Condition Start: 10/12/17 15:25 Freq: Status: Active Protocol: Document 10/12/17 15:26 [facility]AK (Rec: 10/12/17 16:01 [facility] [id number]) Current Condition History of Current Condition Onset Date 07/27/17 Current Complaints function-limiting pain bilateral feet left greater than right. History of Current Condition Woke up swollen and painful on outside of left foot 07/27/17, no known reason. Xray showed avulsion fracture of styloid process of 5th metatarsal. Wore post-op boot for 8 weeks, pain persisted with no healing of fracture. Patient wears boot still occasionally but has transitioned to wearing tennis shoes though with rigid metal insert, heel lift, and old orthotics bilaterally. States she feels pain worse wearing the metal insert as recommended by physician. Persistent pain bilateral feet, neuropathy bilateral toes, neuritis outside of right foot. Hoping to get some pain relief in PT . Currently doing water exercise for fitness but is not helping foot pain. Uses heat around her feet at night, no ice. Has not tried kinesiotape or a brace. Future Testing and Treatments Planned Scheduled for left talonavicular fusion 02/19/18. Treatment Goals Patient/Caregiver Goals Pain relief, improved function Prior Functional Status Baseline Function- ADL's Independent Baseline Function- Mobility Independent Baseline Function- Gait independent no device Baseline Function- Work/School retired Current Functional Impairments (Reported) Functional Limitations- ADL's painful Functional Limitations- Mobility/Gait painful PT-OP-C Subjective Start: 10/12/17 15:25 Freq: Status: Active Protocol: Document 12/07/17 13:49 SAK (Rec: 12/07/17 14:29 [facility] [id number]) OP-PT Subjective Patient Comments Patient Comments Reports continued ache in shoulders, better when doesn't go to pool. Also reports big toe hurting recently. Going to see java developer consultant soon because possible increase in pain due to medication changes . Thinks kinestiope helpful. PT-OP-G Mobility & Gait Start: 10/12/17 15:25 Freq: Status: Active Protocol: Document 10/12/17 15:26 [facility] (Rec: 10/13/17 08:55 [facility] [id number]) OP Gait Assessment Gait Gait Assistance Required: Independent Assistive Devices Assistive Device None Gait Deviations General Gait Pattern Antalgic Lateral Trunk Lean Factors Limiting Gait Function Factors Limiting Gait Function Pain Comments Gait Comments Wearing bilateral metal inserts, heel lifts, orthotics : excessive lateral sway due to lack of sagittal plane movement due to metal inserts. Putting increased weight laterally on feet which is likely what is causing increase in foot pain. Stair Climbing Evaluation Evaluation Level of Assist On Stairs Independent Comments Stair Climbing Comments Painful and labored, again due to lack of saggital plane movement PT-OP-J Posture/Palpation/Skin Start: 10/12/17 15:25 Freq: Status: Active Protocol: Document 10/12/17 15:26 [facility] (Rec: 10/13/17 08:55 [facility] [id number]) Posture Evaluation Position Standing Ankle/Foot Posture (L) Pronated (R) Pronated (L) Calcaneal Eversion (R) Calcaneal Eversion Skin Assessment Edema Assessment Bilateral Foot Comments Patient presents with edema lateral left foot, dorsum of right foot PT-OP-K Range of Motion Start: 10/12/17 15:25 Freq: Status: Active Protocol: Document 10/12/17 15:26 [facility] (Rec: 10/13/17 08:55 [facility] [id number]) Knee Goniometric Range of Motion Knee ROM Limitations Comments bilateral knees WNL Ankle and Foot Goniometric Range of Motion Ankle and Foot Measured in Degrees Right Active Testing Position Sitting Dorsiflexion with Knee Flexed 8 Plantarflexion 40 Inversion 30 Eversion 35 Left Testing Position Sitting Dorsiflexion with Knee Flexed 5 Plantarflexion 50 Inversion 25 Eversion 30 Ankle and Foot ROM Limitations ROM Limitations Soft Tissue Tightness Pain Swelling PT-OP-M Strength Start: 10/12/17 15:25 Freq: Status: Active Protocol: Document 10/12/17 15:26 [facility] (Rec: 10/13/17 08:55 [facility] [id number]) Ankle/Foot Strength Ankle and Foot Manual Muscle Testing Right Dorsiflexion (L4) 4 Good Plantarflexion (S1) 4- Good- Inversion 4 Good Eversion (S1) 4 Good Left Dorsiflexion (L4) 4- Good- Plantarflexion (S1) 3- Fair- Inversion 4- Good- Eversion (S1) 4- Good- Comments painful all motions PT-OP-Q Treatments Start: 10/12/17 15:25 Freq: Status: Active Protocol: Document 12/07/17 13:49 [facility] (Rec: 12/07/17 14:29 [facility] [id number]) Cardio Equipment Recumbent Elliptical ([employer]) Duration (Minutes) 10 Resistance 2 Seat Position 6 Therapeutic Exercises Sitting Exercises 4 Sitting Exercise Name BAPS board L3 Comments AP, side, circles 1 Sitting Exercise Name ankle inv, ev, df, pf Side bilateral Equipment Used L1 TB Reps/Minutes 5 Standing Exercises 1 Standing Exercise Name HC stretch Equipment Used DAGMAR Manual Therapy Treatment Soft Tissue Mobilization 1 Body Location left foot and ankle Mobilization Type Strumming Intensity/Depth gentle Body Position Hooklying Taping 1 Body Location left foot Treatment Focus edema reduction Type of Tape Kinesio Tape Comments 2 fan strips PT-OP-R Modalities Start: 10/12/17 15:25 Freq: Status: Active Protocol: Document 12/07/17 13:49 [facility] (Rec: 12/07/17 16:35 [facility] [id number]) Electric Stimulation Electric Stimulation Interferential Current (IFC) Body Location left foot/ankle Duration (Minutes) 15 Contraction Type Normal Target/Sweep Sweep Combined With Heat/Cold Cold Pack Comments cryocuff Ultrasound Therapy Treatment Left Anterior Ankle Treatment Duration (minutes) 8 Frequency Setting (mHz) 3 Duty Cycle 100 Intensity Setting (w/cm2) 1 PT-OP-T Assessment and Plan Start: 10/12/17 15:25 Freq: Status: Active Protocol: Document 12/07/17 13:49 [facility] (Rec: 12/07/17 16:35 [facility] [id number]) Physical Therapy Assessment Goals Antalgic gait Impairment gait Detention Goal (LTG) Patient able to ambulate with minimal to no limp using appropriate assistive device as needed LTG Duration 3 months Foot and Ankle Ability Measure ADL's Impairment 50% Risk Officer Goal (LTG) Improve score to at least 75% LTG Duration 3 months Lower extremity functional scale Impairment Score 38% Risk Officer Goal (LTG) Improve lower extremity functional scale to at least 60% LTG Duration 3 months Pain bilateral feet 6/10 Impairment pain Detention Goal (LTG) Decrease pain to no greater than 3/10 LTG Duration 3 months Assessment Summary Assessment Feel increase in soreness throughout body related to medication changes, though talked with patient regarding pacing of activity, postural awareness especially when she does aquatic exercise, increase rest time. Physical Therapy Plan Frequency and Duration Frequency of Treatment 2x/Week Duration of Treatment 3 months Plan of Care Start Date 10/12/17 Plan of Care End Date 01/12/18 Therapeutic Interventions Therapeutic Interventions Aquatic Therapy Gait Training Home Exercise Program Manual Therapy Neuromuscular Re-education Orthotic/Prosthetic Management Patient/Caregiver Education Self-Care/Home Management Taping Therapeutic Activities Therapeutic Exercises Modalities Cold Pack/Ice Massage Electric Stimulation Hot Packs Iontophoresis Ultrasound Next Visit Focus/Plan Next Note Type Treatment Note Next Visit Plan Progress ther ex as tolerated, continue pain management.
--- NOTE | 2017-12-14 16:56 | PT.OTN ---
Current Diagnoses Primary osteoarthritis, unspecified ankle and foot (12/14/17) Pain in left foot (12/14/17) Physical Therapy Treatment Note PT-OP-A Visit Information Start: 10/12/17 15:25 Freq: Status: Active Protocol: Document 12/14/17 13:00 [facility] (Rec: 12/14/17 16:55 [facility] [id number]) Out-Patient Physical Therapy Visit Information Visit Information Visit Type Treatment Note Visit Start Time 13:00 Visit Stop Time 13:58 Total Visit Minutes 58 Visit Number 02/24 Number of SCHOOL STANDARDS COACH Visits 0 Evaluation Information Evaluation Date 10/12/17 PT-OP-B Current Condition Start: 10/12/17 15:25 Freq: Status: Active Protocol: Document 10/12/17 15:26 [facility] (Rec: 10/12/17 16:01 [facility] [id number]) Current Condition History of Current Condition Onset Date 07/27/17 Current Complaints function-limiting pain bilateral feet left greater than right. History of Current Condition Woke up swollen and painful on outside of left foot 07/27/17, no known reason. Xray showed avulsion fracture of styloid process of 5th metatarsal. Wore post-op boot for 8 weeks, pain persisted with no healing of fracture. Patient wears boot still occasionally but has transitioned to wearing tennis shoes though with rigid metal insert, heel lift, and old orthotics bilaterally. States she feels pain worse wearing the metal insert as recommended by physician. Persistent pain bilateral feet, neuropathy bilateral toes, neuritis outside of right foot. Hoping to get some pain relief in PT . Currently doing water exercise for fitness but is not helping foot pain. Uses heat around her feet at night, no ice. Has not tried kinesiotape or a brace. Future Testing and Treatments Planned Scheduled for left talonavicular fusion 02/19/18. Treatment Goals Patient/Caregiver Goals Pain relief, improved function Prior Functional Status Baseline Function- ADL's Independent Baseline Function- Mobility Independent Baseline Function- Gait independent no device Baseline Function- Work/School retired Current Functional Impairments (Reported) Functional Limitations- ADL's painful Functional Limitations- Mobility/Gait painful PT-OP-C Subjective Start: 10/12/17 15:25 Freq: Status: Active Protocol: Document 12/14/17 13:00 [facility] (Rec: 12/14/17 16:55 [facility] [id number]) OP-PT Subjective Patient Comments Patient Comments Goes to see surgeon and wallboard worker 01/05/18. Will be discussing persistent shoulder pain with wallboard worker, possibly ask for PT. Decreased foot/ankle pain after PT, reports decreased swelling. PT-OP-G Mobility & Gait Start: 10/12/17 15:25 Freq: Status: Active Protocol: Document 10/12/17 15:26 [facility] (Rec: 10/13/17 08:55 [facility] [id number]) OP Gait Assessment Gait Gait Assistance Required: Independent Assistive Devices Assistive Device None Gait Deviations General Gait Pattern Antalgic Lateral Trunk Lean Factors Limiting Gait Function Factors Limiting Gait Function Pain Comments Gait Comments Wearing bilateral metal inserts, heel lifts, orthotics : excessive lateral sway due to lack of sagittal plane movement due to metal inserts. Putting increased weight laterally on feet which is likely what is causing increase in foot pain. Stair Climbing Evaluation Evaluation Level of Assist On Stairs Independent Comments Stair Climbing Comments Painful and labored, again due to lack of saggital plane movement PT-OP-J Posture/Palpation/Skin Start: 10/12/17 15:25 Freq: Status: Active Protocol: Document 10/12/17 15:26 [facility] (Rec: 10/13/17 08:55 [facility] [id number]) Posture Evaluation Position Standing Ankle/Foot Posture (L) Pronated (R) Pronated (L) Calcaneal Eversion (R) Calcaneal Eversion Skin Assessment Edema Assessment Bilateral Foot Comments Patient presents with edema lateral left foot, dorsum of right foot PT-OP-K Range of Motion Start: 10/12/17 15:25 Freq: Status: Active Protocol: Document 10/12/17 15:26 [facility] (Rec: 10/13/17 08:55 [facility] [id number]) Knee Goniometric Range of Motion Knee ROM Limitations Comments bilateral knees WNL Ankle and Foot Goniometric Range of Motion Ankle and Foot Measured in Degrees Right Active Testing Position Sitting Dorsiflexion with Knee Flexed 8 Plantarflexion 40 Inversion 30 Eversion 35 Left Testing Position Sitting Dorsiflexion with Knee Flexed 5 Plantarflexion 50 Inversion 25 Eversion 30 Ankle and Foot ROM Limitations ROM Limitations Soft Tissue Tightness Pain Swelling PT-OP-M Strength Start: 10/12/17 15:25 Freq: Status: Active Protocol: Document 10/12/17 15:26 [facility] (Rec: 10/13/17 08:55 [facility] [id number]) Ankle/Foot Strength Ankle and Foot Manual Muscle Testing Right Dorsiflexion (L4) 4 Good Plantarflexion (S1) 4- Good- Inversion 4 Good Eversion (S1) 4 Good Left Dorsiflexion (L4) 4- Good- Plantarflexion (S1) 3- Fair- Inversion 4- Good- Eversion (S1) 4- Good- Comments painful all motions PT-OP-Q Treatments Start: 10/12/17 15:25 Freq: Status: Active Protocol: Document 12/14/17 13:00 [facility] (Rec: 12/14/17 16:55 [facility] [id number]) Cardio Equipment Recumbent Elliptical ([employer]) Duration (Minutes) 10 Resistance 2 Seat Position 6 Gym Equipment Shuttle Recovery Bilateral Squats Resistance 50 Shuttle Recovery Platform Unstable Therapeutic Exercises Sitting Exercises 4 Sitting Exercise Name BAPS board L3 Comments AP, side, circles 1 Comments HEP Standing Exercises 1 Standing Exercise Name HC stretch Equipment Used DAGMAR Manual Therapy Treatment Soft Tissue Mobilization 1 Body Location left foot and ankle Mobilization Type Strumming Intensity/Depth gentle Body Position Hooklying Taping 1 Body Location gloria feet Treatment Focus edema reduction Type of Tape Kinesio Tape Comments 2 fan strips PT-OP-R Modalities Start: 10/12/17 15:25 Freq: Status: Active Protocol: Document 12/14/17 13:00 [facility] (Rec: 12/14/17 16:55 [facility] [id number]) Electric Stimulation Electric Stimulation Interferential Current (IFC) Body Location left foot/ankle Duration (Minutes) 15 Contraction Type Normal Target/Sweep Sweep Combined With Heat/Cold Cold Pack Comments cryocuff (ice pack to right foot/ankle) Ultrasound Therapy Treatment Left Anterior Ankle Treatment Duration (minutes) 8 Frequency Setting (mHz) 3 Duty Cycle 100 Intensity Setting (w/cm2) 1 PT-OP-T Assessment and Plan Start: 10/12/17 15:25 Freq: Status: Active Protocol: Document 12/14/17 13:00 [facility] (Rec: 12/14/17 16:55 [facility] [id number]) Physical Therapy Assessment Goals Antalgic gait Impairment gait Alf Goal (LTG) Patient able to ambulate with minimal to no limp using appropriate assistive device as needed LTG Duration 3 months Foot and Ankle Ability Measure ADL's Impairment 50% Trade Facilitator Goal (LTG) Improve score to at least 75% LTG Duration 3 months Lower extremity functional scale Impairment Score 38% Alf Goal (LTG) Improve lower extremity functional scale to at least 60% LTG Duration 3 months Pain bilateral feet 6/10 Impairment pain Alf Goal (LTG) Decrease pain to no greater than 3/10 LTG Duration 3 months Assessment Summary Assessment Decreased pain after PT treatment. Added leg press with low weight with wobble board to work on instrinsic foot musculature with functional LE movement with good tolerance. Physical Therapy Plan Frequency and Duration Frequency of Treatment 2x/Week Duration of Treatment 3 months Plan of Care Start Date 10/12/17 Plan of Care End Date 01/12/18 Therapeutic Interventions Therapeutic Interventions Aquatic Therapy Gait Training Home Exercise Program Manual Therapy Neuromuscular Re-education Orthotic/Prosthetic Management Patient/Caregiver Education Self-Care/Home Management Taping Therapeutic Activities Therapeutic Exercises Modalities Cold Pack/Ice Massage Electric Stimulation Hot Packs Iontophoresis Ultrasound Next Visit Focus/Plan Next Note Type Treatment Note Next Visit Plan Progress ther ex as tolerated, continue pain management.
--- NOTE | 2017-12-23 09:31 | PT.OTN ---
Current Diagnoses Primary osteoarthritis, unspecified ankle and foot (12/21/17) Pain in left foot (12/21/17) Physical Therapy Treatment Note PT-OP-A Visit Information Start: 10/12/17 15:25 Freq: Status: Active Protocol: Document 12/21/17 13:02 [facility] (Rec: 12/21/17 13:46 [facility] [id number]) Out-Patient Physical Therapy Visit Information Visit Information Visit Type Treatment Note Visit Start Time 13:00 Visit Stop Time 14:00 Total Visit Minutes 60 Visit Number Number of STAVE AND BOLT EQUALIZER Visits 0 Evaluation Information Evaluation Date 10/12/17 PT-OP-B Current Condition Start: 10/12/17 15:25 Freq: Status: Active Protocol: Document 10/12/17 15:26 [facility] (Rec: 10/12/17 16:01 [facility] [id number]) Current Condition History of Current Condition Onset Date 07/27/17 Current Complaints function-limiting pain bilateral feet left greater than right. History of Current Condition Woke up swollen and painful on outside of left foot 07/27/17, no known reason. Xray showed avulsion fracture of styloid process of 5th metatarsal. Wore post-op boot for 8 weeks, pain persisted with no healing of fracture. Patient wears boot still occasionally but has transitioned to wearing tennis shoes though with rigid metal insert, heel lift, and old orthotics bilaterally. States she feels pain worse wearing the metal insert as recommended by physician. Persistent pain bilateral feet, neuropathy bilateral toes, neuritis outside of right foot. Hoping to get some pain relief in PT . Currently doing water exercise for fitness but is not helping foot pain. Uses heat around her feet at night, no ice. Has not tried kinesiotape or a brace. Future Testing and Treatments Planned Scheduled for left talonavicular fusion 02/19/18. Treatment Goals Patient/Caregiver Goals Pain relief, improved function Prior Functional Status Baseline Function- ADL's Independent Baseline Function- Mobility Independent Baseline Function- Gait independent no device Baseline Function- Work/School retired Current Functional Impairments (Reported) Functional Limitations- ADL's painful Functional Limitations- Mobility/Gait painful PT-OP-C Subjective Start: 10/12/17 15:25 Freq: Status: Active Protocol: Document 12/21/17 13:02 [facility] (Rec: 12/21/17 13:46 [facility] [id number]) OP-PT Subjective Patient Comments Patient Comments Pain a little better, maybe the Cymbalta is helping a little. PT-OP-G Mobility & Gait Start: 10/12/17 15:25 Freq: Status: Active Protocol: Document 10/12/17 15:26 [facility] (Rec: 10/13/17 08:55 [facility] [id number]) OP Gait Assessment Gait Gait Assistance Required: Independent Assistive Devices Assistive Device None Gait Deviations General Gait Pattern Antalgic Lateral Trunk Lean Factors Limiting Gait Function Factors Limiting Gait Function Pain Comments Gait Comments Wearing bilateral metal inserts, heel lifts, orthotics : excessive lateral sway due to lack of sagittal plane movement due to metal inserts. Putting increased weight laterally on feet which is likely what is causing increase in foot pain. Stair Climbing Evaluation Evaluation Level of Assist On Stairs Independent Comments Stair Climbing Comments Painful and labored, again due to lack of saggital plane movement PT-OP-J Posture/Palpation/Skin Start: 10/12/17 15:25 Freq: Status: Active Protocol: Document 10/12/17 15:26 [facility] (Rec: 10/13/17 08:55 [facility] [id number]) Posture Evaluation Position Standing Ankle/Foot Posture (L) Pronated (R) Pronated (L) Calcaneal Eversion (R) Calcaneal Eversion Skin Assessment Edema Assessment Bilateral Foot Comments Patient presents with edema lateral left foot, dorsum of right foot PT-OP-K Range of Motion Start: 10/12/17 15:25 Freq: Status: Active Protocol: Document 10/12/17 15:26 [facility] (Rec: 10/13/17 08:55 [facility] [id number]) Knee Goniometric Range of Motion Knee ROM Limitations Comments bilateral knees WNL Ankle and Foot Goniometric Range of Motion Ankle and Foot Measured in Degrees Right Active Testing Position Sitting Dorsiflexion with Knee Flexed 8 Plantarflexion 40 Inversion 30 Eversion 35 Left Testing Position Sitting Dorsiflexion with Knee Flexed 5 Plantarflexion 50 Inversion 25 Eversion 30 Ankle and Foot ROM Limitations ROM Limitations Soft Tissue Tightness Pain Swelling PT-OP-M Strength Start: 10/12/17 15:25 Freq: Status: Active Protocol: Document 10/12/17 15:26 [facility] (Rec: 10/13/17 08:55 [facility] [id number]) Ankle/Foot Strength Ankle and Foot Manual Muscle Testing Right Dorsiflexion (L4) 4 Good Plantarflexion (S1) 4- Good- Inversion 4 Good Eversion (S1) 4 Good Left Dorsiflexion (L4) 4- Good- Plantarflexion (S1) 3- Fair- Inversion 4- Good- Eversion (S1) 4- Good- Comments painful all motions PT-OP-Q Treatments Start: 10/12/17 15:25 Freq: Status: Active Protocol: Document 12/21/17 13:02 [facility] (Rec: 12/21/17 13:46 [facility] [id number]) Cardio Equipment Recumbent Elliptical (Biodex) Duration (Minutes) 11 Resistance 2 Seat Position 6 Gym Equipment Shuttle Recovery Unilateral Squats Resistance 20 Shuttle Recovery Platform Unstable Bilateral Squats Resistance 50 Shuttle Recovery Platform Unstable Therapeutic Exercises Sitting Exercises hamstring curl Resistance 50 Reps/Minutes 10x hip ad Resistance 40 Reps/Minutes 10x hip ab Resistance 30 Reps/Minutes 10x 4 Sitting Exercise Name BAPS board L3 Comments AP, side, circles 3 Sitting Exercise Name short foot Side bilateral Reps/Minutes 10x Standing Exercises short foot Reps/Minutes 10x 1 Standing Exercise Name HC stretch Equipment Used DAGMAR Manual Therapy Treatment Soft Tissue Mobilization 1 Body Location left foot and ankle Mobilization Type Strumming Intensity/Depth gentle Body Position Hooklying PT-OP-R Modalities Start: 10/12/17 15:25 Freq: Status: Active Protocol: Document 12/21/17 13:02 [facility] (Rec: 12/23/17 09:31 [facility] [id number]) Electric Stimulation Electric Stimulation Interferential Current (IFC) Body Location left foot/ankle Duration (Minutes) 15 Contraction Type Normal Target/Sweep Sweep Combined With Heat/Cold Cold Pack Comments cryocuff (ice pack to right foot/ankle) Ultrasound Therapy Treatment Left Anterior Ankle Treatment Duration (minutes) 8 Frequency Setting (mHz) 3 Duty Cycle 100 Intensity Setting (w/cm2) 1 PT-OP-T Assessment and Plan Start: 10/12/17 15:25 Freq: Status: Active Protocol: Document 12/21/17 13:02 [facility] (Rec: 12/23/17 09:31 [facility] [id number]) Physical Therapy Assessment Goals Antalgic gait Impairment gait Medical Concierge Goal (LTG) Patient able to ambulate with minimal to no limp using appropriate assistive device as needed LTG Duration 3 months Foot and Ankle Ability Measure ADL's Impairment 50% Medical Concierge Goal (LTG) Improve score to at least 75% LTG Duration 3 months Lower extremity functional scale Impairment Score 38% Medical Concierge Goal (LTG) Improve lower extremity functional scale to at least 60% LTG Duration 3 months Pain bilateral feet 6/10 Impairment pain Nursing Home Goal (LTG) Decrease pain to no greater than 3/10 LTG Duration 3 months Assessment Summary Assessment Patient demonstrating improved compliance to modification of activity. Initiated further LE strengthening in prep for foot surgery. No tape today due to time constraints. Physical Therapy Plan Frequency and Duration Frequency of Treatment 2x/Week Duration of Treatment 3 months Plan of Care Start Date 10/12/17 Plan of Care End Date 01/12/18 Therapeutic Interventions Therapeutic Interventions Aquatic Therapy Gait Training Home Exercise Program Manual Therapy Neuromuscular Re-education Orthotic/Prosthetic Management Patient/Caregiver Education Self-Care/Home Management Taping Therapeutic Activities Therapeutic Exercises Modalities Cold Pack/Ice Massage Electric Stimulation Hot Packs Iontophoresis Ultrasound Next Visit Focus/Plan Next Note Type Treatment Note Next Visit Plan Progress ther ex as tolerated, continue pain management.
--- NOTE | 2017-12-23 13:42 | PT.OTN ---
Current Diagnoses Primary osteoarthritis, unspecified ankle and foot (12/23/17) Pain in left foot (12/23/17) Physical Therapy Treatment Note PT-OP-A Visit Information Start: 10/12/17 15:25 Freq: Status: Active Protocol: Document 12/23/17 13:37 [facility] (Rec: 12/23/17 13:42 [facility] [id number]) Out-Patient Physical Therapy Visit Information Visit Information Visit Type Treatment Note Visit Start Time 11:15 Visit Stop Time 12:13 Total Visit Minutes 58 Visit Number Number of UG DESIGNER Visits 0 Evaluation Information Evaluation Date 10/12/17 PT-OP-B Current Condition Start: 10/12/17 15:25 Freq: Status: Active Protocol: Document 10/12/17 15:26 [facility] (Rec: 10/12/17 16:01 [facility] [id number]) Current Condition History of Current Condition Onset Date 07/27/17 Current Complaints function-limiting pain bilateral feet left greater than right. History of Current Condition Woke up swollen and painful on outside of left foot 07/27/17, no known reason. Xray showed avulsion fracture of styloid process of 5th metatarsal. Wore post-op boot for 8 weeks, pain persisted with no healing of fracture. Patient wears boot still occasionally but has transitioned to wearing tennis shoes though with rigid metal insert, heel lift, and old orthotics bilaterally. States she feels pain worse wearing the metal insert as recommended by physician. Persistent pain bilateral feet, neuropathy bilateral toes, neuritis outside of right foot. Hoping to get some pain relief in PT . Currently doing water exercise for fitness but is not helping foot pain. Uses heat around her feet at night, no ice. Has not tried kinesiotape or a brace. Future Testing and Treatments Planned Scheduled for left talonavicular fusion 02/19/18. Treatment Goals Patient/Caregiver Goals Pain relief, improved function Prior Functional Status Baseline Function- ADL's Independent Baseline Function- Mobility Independent Baseline Function- Gait independent no device Baseline Function- Work/School retired Current Functional Impairments (Reported) Functional Limitations- ADL's painful Functional Limitations- Mobility/Gait painful PT-OP-C Subjective Start: 10/12/17 15:25 Freq: Status: Active Protocol: Document 12/21/17 13:02 [facility] (Rec: 12/21/17 13:46 [facility] [id number]) OP-PT Subjective Patient Comments Patient Comments Pain a little better, maybe the Cymbalta is helping a little. PT-OP-G Mobility & Gait Start: 10/12/17 15:25 Freq: Status: Active Protocol: Document 10/12/17 15:26 [facility] (Rec: 10/13/17 08:55 [facility] [id number]) OP Gait Assessment Gait Gait Assistance Required: Independent Assistive Devices Assistive Device None Gait Deviations General Gait Pattern Antalgic Lateral Trunk Lean Factors Limiting Gait Function Factors Limiting Gait Function Pain Comments Gait Comments Wearing bilateral metal inserts, heel lifts, orthotics : excessive lateral sway due to lack of sagittal plane movement due to metal inserts. Putting increased weight laterally on feet which is likely what is causing increase in foot pain. Stair Climbing Evaluation Evaluation Level of Assist On Stairs Independent Comments Stair Climbing Comments Painful and labored, again due to lack of saggital plane movement PT-OP-J Posture/Palpation/Skin Start: 10/12/17 15:25 Freq: Status: Active Protocol: Document 10/12/17 15:26 [facility] (Rec: 10/13/17 08:55 [facility] [id number]) Posture Evaluation Position Standing Ankle/Foot Posture (L) Pronated (R) Pronated (L) Calcaneal Eversion (R) Calcaneal Eversion Skin Assessment Edema Assessment Bilateral Foot Comments Patient presents with edema lateral left foot, dorsum of right foot PT-OP-K Range of Motion Start: 10/12/17 15:25 Freq: Status: Active Protocol: Document 10/12/17 15:26 [facility] (Rec: 10/13/17 08:55 [facility] [id number]) Knee Goniometric Range of Motion Knee ROM Limitations Comments bilateral knees WNL Ankle and Foot Goniometric Range of Motion Ankle and Foot Measured in Degrees Right Active Testing Position Sitting Dorsiflexion with Knee Flexed 8 Plantarflexion 40 Inversion 30 Eversion 35 Left Testing Position Sitting Dorsiflexion with Knee Flexed 5 Plantarflexion 50 Inversion 25 Eversion 30 Ankle and Foot ROM Limitations ROM Limitations Soft Tissue Tightness Pain Swelling PT-OP-M Strength Start: 10/12/17 15:25 Freq: Status: Active Protocol: Document 10/12/17 15:26 [facility] (Rec: 10/13/17 08:55 [facility] [id number]) Ankle/Foot Strength Ankle and Foot Manual Muscle Testing Right Dorsiflexion (L4) 4 Good Plantarflexion (S1) 4- Good- Inversion 4 Good Eversion (S1) 4 Good Left Dorsiflexion (L4) 4- Good- Plantarflexion (S1) 3- Fair- Inversion 4- Good- Eversion (S1) 4- Good- Comments painful all motions PT-OP-Q Treatments Start: 10/12/17 15:25 Freq: Status: Active Protocol: Document 12/23/17 13:37 [facility] (Rec: 12/23/17 13:42 [facility] [id number]) Cardio Equipment Recumbent Elliptical (Biodex) Duration (Minutes) 10 Resistance 2 Seat Position 6 Gym Equipment Shuttle Recovery Bilateral Heel Raises Resistance 25 Shuttle Recovery Platform Stable Unilateral Squats Resistance 25 Shuttle Recovery Platform Unstable Bilateral Squats Resistance 50 Shuttle Recovery Platform Unstable Therapeutic Exercises Sitting Exercises hamstring curl Resistance 50 Reps/Minutes 10x hip ad Resistance 40 Reps/Minutes 10x hip ab Resistance 30 Reps/Minutes 10x Standing Exercises 1 Standing Exercise Name HC stretch Equipment Used DAGMAR Manual Therapy Treatment Taping 1 Body Location gloria feet Treatment Focus edema reduction Type of Tape Kinesio Tape Comments 2 fan strips PT-OP-R Modalities Start: 10/12/17 15:25 Freq: Status: Active Protocol: Document 12/23/17 13:37 [facility] (Rec: 12/23/17 13:42 [facility] [id number]) Electric Stimulation Electric Stimulation Interferential Current (IFC) Body Location left foot/ankle Duration (Minutes) 15 Contraction Type Normal Target/Sweep Sweep Combined With Heat/Cold Cold Pack Comments cryocuff (ice pack to right foot/ankle) Ultrasound Therapy Treatment Left Anterior Ankle Treatment Duration (minutes) 8 Frequency Setting (mHz) 3 Duty Cycle 100 Intensity Setting (w/cm2) 1 PT-OP-T Assessment and Plan Start: 10/12/17 15:25 Freq: Status: Active Protocol: Document 12/23/17 13:37 [facility] (Rec: 12/23/17 13:42 [facility] [id number]) Physical Therapy Assessment Goals Antalgic gait Impairment gait [facility] Goal (LTG) Patient able to ambulate with minimal to no limp using appropriate assistive device as needed LTG Duration 3 months Foot and Ankle Ability Measure ADL's Impairment 50% Trucksmith Goal (LTG) Improve score to at least 75% LTG Duration 3 months Lower extremity functional scale Impairment Score 38% [facility] Goal (LTG) Improve lower extremity functional scale to at least 60% LTG Duration 3 months Pain bilateral feet 6/10 Impairment pain [facility] Goal (LTG) Decrease pain to no greater than 3/10 LTG Duration 3 months Assessment Summary Assessment able to tolerate heel raises with 25 lbs on shuttle leg press without pain. Discussed car transfer; patient to bring next session for practice and education. Physical Therapy Plan Frequency and Duration Frequency of Treatment 2x/Week Duration of Treatment 3 months Plan of Care Start Date 10/12/17 Plan of Care End Date 01/12/18 Therapeutic Interventions Therapeutic Interventions Aquatic Therapy Gait Training Home Exercise Program Manual Therapy Neuromuscular Re-education Orthotic/Prosthetic Management Patient/Caregiver Education Self-Care/Home Management Taping Therapeutic Activities Therapeutic Exercises Modalities Cold Pack/Ice Massage Electric Stimulation Hot Packs Iontophoresis Ultrasound Next Visit Focus/Plan Next Note Type Treatment Note Next Visit Plan Car transfer education and practice. Anticipate patient may have prescription for treating shoulder pain and at that time will discontinue PT for feet with patient continueing with HEP and self- management and will initiate PT for shoulder pain.
--- NOTE | 2018-01-06 10:44 | PT.OTN ---
Current Diagnoses Primary osteoarthritis, unspecified ankle and foot (01/04/18) Pain in left foot (01/04/18) Physical Therapy Treatment Note PT-OP-A Visit Information Start: 10/12/17 15:25 Freq: Status: Active Protocol: Document 01/04/18 13:00 SAK (Rec: 01/04/18 13:47 SAK [id number]) Out-Patient Physical Therapy Visit Information Visit Information Visit Type Treatment Note Visit Start Time 13:00 Visit Stop Time 13:58 Total Visit Minutes 58 Visit Number Number of FREIGHT UNLOADER Visits 0 Evaluation Information Evaluation Date 10/12/17 PT-OP-B Current Condition Start: 10/12/17 15:25 Freq: Status: Active Protocol: Document 10/12/17 15:26 SAK (Rec: 10/12/17 16:01 SAK [id number]) Current Condition History of Current Condition Onset Date 07/27/17 Current Complaints function-limiting pain bilateral feet left greater than right. History of Current Condition Woke up swollen and painful on outside of left foot 07/27/17, no known reason. Xray showed avulsion fracture of styloid process of 5th metatarsal. Wore post-op boot for 8 weeks, pain persisted with no healing of fracture. Patient wears boot still occasionally but has transitioned to wearing tennis shoes though with rigid metal insert, heel lift, and old orthotics bilaterally. States she feels pain worse wearing the metal insert as recommended by physician. Persistent pain bilateral feet, neuropathy bilateral toes, neuritis outside of right foot. Hoping to get some pain relief in PT . Currently doing water exercise for fitness but is not helping foot pain. Uses heat around her feet at night, no ice. Has not tried kinesiotape or a brace. Future Testing and Treatments Planned Scheduled for left talonavicular fusion 02/19/18. Treatment Goals Patient/Caregiver Goals Pain relief, improved function Prior Functional Status Baseline Function- ADL's Independent Baseline Function- Mobility Independent Baseline Function- Gait independent no device Baseline Function- Work/School retired Current Functional Impairments (Reported) Functional Limitations- ADL's painful Functional Limitations- Mobility/Gait painful PT-OP-C Subjective Start: 10/12/17 15:25 Freq: Status: Active Protocol: Document 01/04/18 13:00 SAK (Rec: 01/04/18 13:47 SAK [id number]) OP-PT Subjective Patient Comments Patient Comments States she has been miserable since last seen; feels like all the medication changes may be impacting her pain. Sees rheumologist and orthopedist tomorrow. PT-OP-G Mobility & Gait Start: 10/12/17 15:25 Freq: Status: Active Protocol: Document 10/12/17 15:26 [facility] (Rec: 10/13/17 08:55 [facility] [id number]) OP Gait Assessment Gait Gait Assistance Required: Independent Assistive Devices Assistive Device None Gait Deviations General Gait Pattern Antalgic Lateral Trunk Lean Factors Limiting Gait Function Factors Limiting Gait Function Pain Comments Gait Comments Wearing bilateral metal inserts, heel lifts, orthotics : excessive lateral sway due to lack of sagittal plane movement due to metal inserts. Putting increased weight laterally on feet which is likely what is causing increase in foot pain. Stair Climbing Evaluation Evaluation Level of Assist On Stairs Independent Comments Stair Climbing Comments Painful and labored, again due to lack of saggital plane movement PT-OP-J Posture/Palpation/Skin Start: 10/12/17 15:25 Freq: Status: Active Protocol: Document 10/12/17 15:26 [facility] (Rec: 10/13/17 08:55 [facility] [id number]) Posture Evaluation Position Standing Ankle/Foot Posture (L) Pronated (R) Pronated (L) Calcaneal Eversion (R) Calcaneal Eversion Skin Assessment Edema Assessment Bilateral Foot Comments Patient presents with edema lateral left foot, dorsum of right foot PT-OP-K Range of Motion Start: 10/12/17 15:25 Freq: Status: Active Protocol: Document 10/12/17 15:26 [facility] (Rec: 10/13/17 08:55 [facility] [id number]) Knee Goniometric Range of Motion Knee ROM Limitations Comments bilateral knees WNL Ankle and Foot Goniometric Range of Motion Ankle and Foot Measured in Degrees Right Active Testing Position Sitting Dorsiflexion with Knee Flexed 8 Plantarflexion 40 Inversion 30 Eversion 35 Left Testing Position Sitting Dorsiflexion with Knee Flexed 5 Plantarflexion 50 Inversion 25 Eversion 30 Ankle and Foot ROM Limitations ROM Limitations Soft Tissue Tightness Pain Swelling PT-OP-M Strength Start: 10/12/17 15:25 Freq: Status: Active Protocol: Document 10/12/17 15:26 [facility] (Rec: 10/13/17 08:55 [facility] [id number]) Ankle/Foot Strength Ankle and Foot Manual Muscle Testing Right Dorsiflexion (L4) 4 Good Plantarflexion (S1) 4- Good- Inversion 4 Good Eversion (S1) 4 Good Left Dorsiflexion (L4) 4- Good- Plantarflexion (S1) 3- Fair- Inversion 4- Good- Eversion (S1) 4- Good- Comments painful all motions PT-OP-Q Treatments Start: 10/12/17 15:25 Freq: Status: Active Protocol: Document 01/04/18 13:00 [facility] (Rec: 01/04/18 13:47 [facility] [id number]) Cardio Equipment Recumbent Elliptical (WildBlue) Duration (Minutes) 8 Resistance 2 Seat Position 6 Therapeutic Exercises Sitting Exercises ankle and toe sequential df,ext,pf,flx Reps/Minutes 10x toe swap, toe piano Reps/Minutes 10x 4 Sitting Exercise Name BAPS board L3 Comments AP, side, circles 3 Sitting Exercise Name short foot Side bilateral Reps/Minutes 10x Standing Exercises 1 Standing Exercise Name HC stretch Manual Therapy Treatment Soft Tissue Mobilization 1 Body Location left foot and ankle Mobilization Type Strumming Intensity/Depth gentle Body Position Hooklying Taping 1 Body Location gloria feet Treatment Focus edema reduction Type of Tape Kinesio Tape Comments 2 fan strips PT-OP-R Modalities Start: 10/12/17 15:25 Freq: Status: Active Protocol: Document 01/04/18 13:00 [facility] (Rec: 01/06/18 10:44 [facility] [id number]) Electric Stimulation Electric Stimulation Interferential Current (IFC) Body Location left foot/ankle Duration (Minutes) 15 Contraction Type Normal Target/Sweep Sweep Combined With Heat/Cold Cold Pack Comments cryocuff (ice pack to right foot/ankle) Ultrasound Therapy Treatment Left Anterior Ankle Treatment Duration (minutes) 8 Frequency Setting (mHz) 3 Duty Cycle 100 Intensity Setting (w/cm2) 1 PT-OP-T Assessment and Plan Start: 10/12/17 15:25 Freq: Status: Active Protocol: Document 01/04/18 13:00 [facility] (Rec: 01/06/18 10:44 [facility] [id number]) Physical Therapy Assessment Goals Antalgic gait Impairment gait [place] Goal (LTG) Patient able to ambulate with minimal to no limp using appropriate assistive device as needed LTG Duration 3 months Foot and Ankle Ability Measure ADL's Impairment 50% Snf Goal (LTG) Improve score to at least 75% LTG Duration 3 months Lower extremity functional scale Impairment Score 38% [employer] Goal (LTG) Improve lower extremity functional scale to at least 60% LTG Duration 3 months Pain bilateral feet 6/10 Impairment pain [place] Goal (LTG) Decrease pain to no greater than 3/10 LTG Duration 3 months Assessment Summary Assessment Patient experienced some buttock pain possibly due to leg press; not done today. Added additional intrinsic and extrinsic foot exercises. Patient post-poning car transfer education. Physical Therapy Plan Frequency and Duration Frequency of Treatment 2x/Week Duration of Treatment 3 months Plan of Care Start Date 10/12/17 Plan of Care End Date 01/12/18 Therapeutic Interventions Therapeutic Interventions Aquatic Therapy Gait Training Home Exercise Program Manual Therapy Neuromuscular Re-education Orthotic/Prosthetic Management Patient/Caregiver Education Self-Care/Home Management Taping Therapeutic Activities Therapeutic Exercises Modalities Cold Pack/Ice Massage Electric Stimulation Hot Packs Iontophoresis Ultrasound Next Visit Focus/Plan Next Note Type Treatment Note Next Visit Plan Continue pain management, ther ex, manual treatment to right foot/ankle. Car transfer education when works for patient/ schedule. Possible transition to PT for shoulder pain soon.
--- NOTE | 2018-01-06 15:36 | PT.OPPOC ---
Current Diagnoses Primary osteoarthritis, unspecified ankle and foot (01/06/18) Pain in left foot (01/06/18) Provider Visit Care Team Role Provider Type Justin Gayle MD Attending Provider Physician Family Provider Primary Care Provider Specialty: Internal Medicine Address: [address] [place] [address], [id number] Email: Plan Of Care PT-OP-T Assessment and Plan Start: 10/12/17 15:25 Freq: Status: Active Protocol: Document 01/06/18 12:59 SAK (Rec: 01/06/18 13:43 SAK [id number]) Physical Therapy Assessment Goals Antalgic gait Impairment gait [facility] Goal (LTG) Patient able to ambulate with minimal to no limp using appropriate assistive device as needed (goal progress, variable with pain) LTG Duration 3 months Foot and Ankle Ability Measure ADL's Impairment 50% [facility] Goal (LTG) Improve score to at least 75% (goal progress) LTG Duration 3 months Lower extremity functional scale Impairment Score 38% [facility] Goal (LTG) Improve lower extremity functional scale to at least 60% (goal progress) LTG Duration 3 months Pain bilateral feet 6/10 Impairment pain [facility] Goal (LTG) Decrease pain to no greater than 3/10 (goal progress) LTG Duration 3 months Assessment Summary Assessment Patient has made some progress with pain and disability of right foot/ankle, improved strength but continues to have functional limitations. She has surgery planned in 1 month . Recommend 4 more PT visits over the next month to continue with gentle strengthening and ROM, pain and edema management, patient and caregiver education as she prepares for surgery. Physical Therapy Plan Frequency and Duration Frequency of Treatment 1x/Week Duration of Treatment 1 month Plan of Care Start Date 01/06/18 Plan of Care End Date 02/07/18 Therapeutic Interventions Therapeutic Interventions Aquatic Therapy Gait Training Home Exercise Program Manual Therapy Neuromuscular Re-education Orthotic/Prosthetic Management Patient/Caregiver Education Self-Care/Home Management Taping Therapeutic Activities Therapeutic Exercises Modalities Cold Pack/Ice Massage Electric Stimulation Hot Packs Iontophoresis Ultrasound Next Visit Focus/Plan Next Note Type Treatment Note Next Visit Plan Continue pain management, ther ex, manual treatment to right foot/ankle. Car transfer education when works for patient/ schedule. Possible transition to PT for shoulder pain soon. Plan of Care Dates Plan of Care Start Date 01/06/18 Plan of Care End Date 02/07/18 Please Sign and Return: I have reviewed this Plan of Care and certify that the skilled therapy services above are required to meet the patient?s needs. Physician Signature Date Printed Name and Credentials Clinical Instructor Signature Printed Name and Credentials
--- NOTE | 2018-01-06 15:37 | PT.OTRE ---
Current Diagnoses Primary osteoarthritis, unspecified ankle and foot (01/06/18) Pain in left foot (01/06/18) Provider Visit Care Team Role Provider Type Justin Gayle MD Attending Provider Physician Family Provider Primary Care Provider Specialty: Internal Medicine Address: [address] [place] [address], [phone] Email: Physical Therapy Re-Evaluation PT-OP-A Visit Information Start: 10/12/17 15:25 Freq: Status: Active Protocol: Document 01/04/18 13:00 SAK (Rec: 01/04/18 13:47 SAK [id number]) Out-Patient Physical Therapy Visit Information Visit Information Visit Type Treatment Note Visit Start Time 13:00 Visit Stop Time 13:58 Total Visit Minutes 58 Visit Number Number of WEB ANALYST Visits 0 Evaluation Information Evaluation Date 10/12/17 PT-OP-B Current Condition Start: 10/12/17 15:25 Freq: Status: Active Protocol: Document 10/12/17 15:26 SAK (Rec: 10/12/17 16:01 SAK [id number]) Current Condition History of Current Condition Onset Date 07/27/17 Current Complaints function-limiting pain bilateral feet left greater than right. History of Current Condition Woke up swollen and painful on outside of left foot 07/27/17, no known reason. Xray showed avulsion fracture of styloid process of 5th metatarsal. Wore post-op boot for 8 weeks, pain persisted with no healing of fracture. Patient wears boot still occasionally but has transitioned to wearing tennis shoes though with rigid metal insert, heel lift, and old orthotics bilaterally. States she feels pain worse wearing the metal insert as recommended by physician. Persistent pain bilateral feet, neuropathy bilateral toes, neuritis outside of right foot. Hoping to get some pain relief in PT . Currently doing water exercise for fitness but is not helping foot pain. Uses heat around her feet at night, no ice. Has not tried kinesiotape or a brace. Future Testing and Treatments Planned Scheduled for left talonavicular fusion 02/19/18. Treatment Goals Patient/Caregiver Goals Pain relief, improved function Prior Functional Status Baseline Function- ADL's Independent Baseline Function- Mobility Independent Baseline Function- Gait independent no device Baseline Function- Work/School retired Current Functional Impairments (Reported) Functional Limitations- ADL's painful Functional Limitations- Mobility/Gait painful PT-OP-C Subjective Start: 10/12/17 15:25 Freq: Status: Active Protocol: Document 01/06/18 12:59 [facility] (Rec: 01/06/18 13:43 [facility] [id number]) OP-PT Subjective Patient Comments Patient Comments Had x-rays of bilateral shoulders; left intact, right shows migration of screws from prior RC surgery. Rotor Coil Taper changing medications, doesn't want PT to shoulders at this time to see if it was medication issues. PT-OP-G Mobility & Gait Start: 10/12/17 15:25 Freq: Status: Active Protocol: Document 10/12/17 15:26 [facility] (Rec: 10/13/17 08:55 [facility] [id number]) OP Gait Assessment Gait Gait Assistance Required: Independent Assistive Devices Assistive Device None Gait Deviations General Gait Pattern Antalgic Lateral Trunk Lean Factors Limiting Gait Function Factors Limiting Gait Function Pain Comments Gait Comments Wearing bilateral metal inserts, heel lifts, orthotics : excessive lateral sway due to lack of sagittal plane movement due to metal inserts. Putting increased weight laterally on feet which is likely what is causing increase in foot pain. Stair Climbing Evaluation Evaluation Level of Assist On Stairs Independent Comments Stair Climbing Comments Painful and labored, again due to lack of saggital plane movement PT-OP-J Posture/Palpation/Skin Start: 10/12/17 15:25 Freq: Status: Active Protocol: Document 10/12/17 15:26 [facility] (Rec: 10/13/17 08:55 [facility] [id number]) Posture Evaluation Position Standing Ankle/Foot Posture (L) Pronated (R) Pronated (L) Calcaneal Eversion (R) Calcaneal Eversion Skin Assessment Edema Assessment Bilateral Foot Comments Patient presents with edema lateral left foot, dorsum of right foot PT-OP-K Range of Motion Start: 10/12/17 15:25 Freq: Status: Active Protocol: Document 10/12/17 15:26 [facility] (Rec: 10/13/17 08:55 [facility] [id number]) Knee Goniometric Range of Motion Knee ROM Limitations Comments bilateral knees WNL Ankle and Foot Goniometric Range of Motion Ankle and Foot Measured in Degrees Right Active Testing Position Sitting Dorsiflexion with Knee Flexed 8 Plantarflexion 40 Inversion 30 Eversion 35 Left Testing Position Sitting Dorsiflexion with Knee Flexed 5 Plantarflexion 50 Inversion 25 Eversion 30 Ankle and Foot ROM Limitations ROM Limitations Soft Tissue Tightness Pain Swelling PT-OP-M Strength Start: 10/12/17 15:25 Freq: Status: Active Protocol: Document 10/12/17 15:26 [facility] (Rec: 10/13/17 08:55 [facility] [id number]) Ankle/Foot Strength Ankle and Foot Manual Muscle Testing Right Dorsiflexion (L4) 4 Good Plantarflexion (S1) 4- Good- Inversion 4 Good Eversion (S1) 4 Good Left Dorsiflexion (L4) 4- Good- Plantarflexion (S1) 3- Fair- Inversion 4- Good- Eversion (S1) 4- Good- Comments painful all motions PT-OP-Q Treatments Start: 10/12/17 15:25 Freq: Status: Active Protocol: Document 01/06/18 12:59 [facility] (Rec: 01/06/18 13:43 [facility] [id number]) Therapeutic Exercises Standing Exercises 1 Standing Exercise Name HC stretch Reps/Minutes DAGMAR Manual Therapy Treatment Taping 1 Body Location gloria feet Treatment Focus edema reduction Type of Tape Kinesio Tape Comments 2 fan strips PT-OP-R Modalities Start: 10/12/17 15:25 Freq: Status: Active Protocol: Document 01/06/18 12:59 [facility] (Rec: 01/06/18 13:43 [facility] [id number]) Electric Stimulation Electric Stimulation Interferential Current (IFC) Body Location left foot/ankle Duration (Minutes) 15 Contraction Type Normal Target/Sweep Sweep Combined With Heat/Cold Cold Pack Comments cryocuff (ice pack to right foot/ankle) PT-OP-T Assessment and Plan Start: 10/12/17 15:25 Freq: Status: Active Protocol: Document 01/06/18 12:59 [facility] (Rec: 01/06/18 13:43 [facility] [id number]) Physical Therapy Assessment Goals Antalgic gait Impairment gait [facility] Goal (LTG) Patient able to ambulate with minimal to no limp using appropriate assistive device as needed (goal progress, variable with pain) LTG Duration 3 months Foot and Ankle Ability Measure ADL's Impairment 50% [facility] Goal (LTG) Improve score to at least 75% (goal progress) LTG Duration 3 months Lower extremity functional scale Impairment Score 38% [facility] Goal (LTG) Improve lower extremity functional scale to at least 60% (goal progress) LTG Duration 3 months Pain bilateral feet 6/10 Impairment pain [facility] Goal (LTG) Decrease pain to no greater than 3/10 (goal progress) LTG Duration 3 months Assessment Summary Assessment Patient has made some progress with pain and disability of right foot/ankle, improved strength but continues to have functional limitations. She has surgery planned in 1 month . Recommend 4 more PT visits over the next month to continue with gentle strengthening and ROM, pain and edema management, patient and caregiver education as she prepares for surgery. Physical Therapy Plan Frequency and Duration Frequency of Treatment 1x/Week Duration of Treatment 1 month Plan of Care Start Date 01/06/18 Plan of Care End Date 02/07/18 Therapeutic Interventions Therapeutic Interventions Aquatic Therapy Gait Training Home Exercise Program Manual Therapy Neuromuscular Re-education Orthotic/Prosthetic Management Patient/Caregiver Education Self-Care/Home Management Taping Therapeutic Activities Therapeutic Exercises Modalities Cold Pack/Ice Massage Electric Stimulation Hot Packs Iontophoresis Ultrasound Next Visit Focus/Plan Next Note Type Treatment Note Next Visit Plan Continue pain management, ther ex, manual treatment to right foot/ankle. Car transfer education when works for patient/ schedule. Possible transition to PT for shoulder pain soon.
--- NOTE | 2018-01-20 11:13 | PT.OTN ---
Current Diagnoses Primary osteoarthritis, unspecified ankle and foot (01/20/18) Pain in left foot (01/20/18) Physical Therapy Treatment Note PT-OP-A Visit Information Start: 10/12/17 15:25 Freq: Status: Active Protocol: Document 01/20/18 11:02 [facility] (Rec: 01/20/18 11:13 [facility] [id number]) Out-Patient Physical Therapy Visit Information Visit Information Visit Type Treatment Note Visit Start Time 08:08 Visit Stop Time 09:08 Total Visit Minutes 60 Visit Number Number of ORACLE TECHNICAL ARCHITECT Visits 0 Evaluation Information Evaluation Date 10/12/17 PT-OP-B Current Condition Start: 10/12/17 15:25 Freq: Status: Active Protocol: Document 10/12/17 15:26 [facility] (Rec: 10/12/17 16:01 [facility] [id number]) Current Condition History of Current Condition Onset Date 07/27/17 Current Complaints function-limiting pain bilateral feet left greater than right. History of Current Condition Woke up swollen and painful on outside of left foot 07/27/17, no known reason. Xray showed avulsion fracture of styloid process of 5th metatarsal. Wore post-op boot for 8 weeks, pain persisted with no healing of fracture. Patient wears boot still occasionally but has transitioned to wearing tennis shoes though with rigid metal insert, heel lift, and old orthotics bilaterally. States she feels pain worse wearing the metal insert as recommended by physician. Persistent pain bilateral feet, neuropathy bilateral toes, neuritis outside of right foot. Hoping to get some pain relief in PT . Currently doing water exercise for fitness but is not helping foot pain. Uses heat around her feet at night, no ice. Has not tried kinesiotape or a brace. Future Testing and Treatments Planned Scheduled for left talonavicular fusion 02/19/18. Treatment Goals Patient/Caregiver Goals Pain relief, improved function Prior Functional Status Baseline Function- ADL's Independent Baseline Function- Mobility Independent Baseline Function- Gait independent no device Baseline Function- Work/School retired Current Functional Impairments (Reported) Functional Limitations- ADL's painful Functional Limitations- Mobility/Gait painful PT-OP-C Subjective Start: 10/12/17 15:25 Freq: Status: Active Protocol: Document 01/20/18 11:02 [facility] (Rec: 01/20/18 11:13 [facility] [id number]) OP-PT Subjective Patient Comments Patient Comments Pt returns from vacation with her attending today's session to problem-solve transfers to multiple surfaces including from floor if patient were to fall, simulating inability to weight -bear on left LE as will be case after surgery. PT-OP-G Mobility & Gait Start: 10/12/17 15:25 Freq: Status: Active Protocol: Document 10/12/17 15:26 [facility] (Rec: 10/13/17 08:55 [facility] [id number]) OP Gait Assessment Gait Gait Assistance Required: Independent Assistive Devices Assistive Device None Gait Deviations General Gait Pattern Antalgic Lateral Trunk Lean Factors Limiting Gait Function Factors Limiting Gait Function Pain Comments Gait Comments Wearing bilateral metal inserts, heel lifts, orthotics : excessive lateral sway due to lack of sagittal plane movement due to metal inserts. Putting increased weight laterally on feet which is likely what is causing increase in foot pain. Stair Climbing Evaluation Evaluation Level of Assist On Stairs Independent Comments Stair Climbing Comments Painful and labored, again due to lack of saggital plane movement PT-OP-J Posture/Palpation/Skin Start: 10/12/17 15:25 Freq: Status: Active Protocol: Document 10/12/17 15:26 [facility] (Rec: 10/13/17 08:55 [facility] [id number]) Posture Evaluation Position Standing Ankle/Foot Posture (L) Pronated (R) Pronated (L) Calcaneal Eversion (R) Calcaneal Eversion Skin Assessment Edema Assessment Bilateral Foot Comments Patient presents with edema lateral left foot, dorsum of right foot PT-OP-K Range of Motion Start: 10/12/17 15:25 Freq: Status: Active Protocol: Document 10/12/17 15:26 [facility] (Rec: 10/13/17 08:55 [facility] [id number]) Knee Goniometric Range of Motion Knee ROM Limitations Comments bilateral knees WNL Ankle and Foot Goniometric Range of Motion Ankle and Foot Measured in Degrees Right Active Testing Position Sitting Dorsiflexion with Knee Flexed 8 Plantarflexion 40 Inversion 30 Eversion 35 Left Testing Position Sitting Dorsiflexion with Knee Flexed 5 Plantarflexion 50 Inversion 25 Eversion 30 Ankle and Foot ROM Limitations ROM Limitations Soft Tissue Tightness Pain Swelling PT-OP-M Strength Start: 08/07/18 15:25 Freq: Status: Active Protocol: Document 10/12/17 15:26 [facility] (Rec: 10/13/17 08:55 [facility] [id number]) Ankle/Foot Strength Ankle and Foot Manual Muscle Testing Right Dorsiflexion (L4) 4 Good Plantarflexion (S1) 4- Good- Inversion 4 Good Eversion (S1) 4 Good Left Dorsiflexion (L4) 4- Good- Plantarflexion (S1) 3- Fair- Inversion 4- Good- Eversion (S1) 4- Good- Comments painful all motions PT-OP-Q Treatments Start: 10/12/17 15:25 Freq: Status: Active Protocol: Document 01/20/18 11:02 [facility] (Rec: 01/20/18 11:13 [facility] [id number]) Manual Therapy Treatment Soft Tissue Mobilization 1 Body Location left foot and ankle Mobilization Type Strumming Intensity/Depth gentle Body Position Hooklying Self-Care/Home Management Treatment Education Other Education for patient and : safe transfers: simulating toilet, car, and floor transfers, discussion of equipment including need for transfer belt, possibly transfer board, raised toilet, cushion in wheelchair and transfer chair to decrease work to UE's. PT-OP-R Modalities Start: 10/12/17 15:25 Freq: Status: Active Protocol: Document 01/20/18 11:02 [facility] (Rec: 01/20/18 11:13 [facility] [id number]) Electric Stimulation Electric Stimulation Interferential Current (IFC) Body Location left foot/ankle Duration (Minutes) 15 Contraction Type Normal Target/Sweep Sweep Combined With Heat/Cold Cold Pack Comments cryocuff (ice pack to right foot/ankle) PT-OP-T Assessment and Plan Start: 10/12/17 15:25 Freq: Status: Active Protocol: Document 01/20/18 11:02 [facility] (Rec: 01/20/18 11:13 [facility] [id number]) Physical Therapy Assessment Goals Antalgic gait Impairment gait Air Tube Releaser Goal (LTG) Patient able to ambulate with minimal to no limp using appropriate assistive device as needed (goal progress, variable with pain) LTG Duration 3 months Foot and Ankle Ability Measure ADL's Impairment 50% Air Tube Releaser Goal (LTG) Improve score to at least 75% (goal progress) LTG Duration 3 months Lower extremity functional scale Impairment Score 38% Air Tube Releaser Goal (LTG) Improve lower extremity functional scale to at least 60% (goal progress) LTG Duration 3 months Pain bilateral feet 6/10 Impairment pain Air Tube Releaser Goal (LTG) Decrease pain to no greater than 3/10 (goal progress) LTG Duration 3 months Assessment Summary Assessment Patient and demonstrated good understanding of the education and practice of transfers for after her surgery, with concern for not overstraining UE's. Will benefit from shift in focus to shoulders remaining visits as indicated, continue to prepare patient for left foot and ankle surgery. Education in use of cryocuff was also provided with good understanding; patient has obtained one for home use. Physical Therapy Plan Frequency and Duration Frequency of Treatment 1x/Week Duration of Treatment 1 month Plan of Care Start Date 01/06/18 Plan of Care End Date 02/07/18 Therapeutic Interventions Therapeutic Interventions Aquatic Therapy Gait Training Home Exercise Program Manual Therapy Neuromuscular Re-education Orthotic/Prosthetic Management Patient/Caregiver Education Self-Care/Home Management Taping Therapeutic Activities Therapeutic Exercises Modalities Cold Pack/Ice Massage Electric Stimulation Hot Packs Iontophoresis Ultrasound Next Visit Focus/Plan Next Note Type Treatment Note Next Visit Plan Review all patient and education, determine any further need for practice or education prior to surgery. Possibly shift focus to treatment of shoulder pain.
--- NOTE | 2018-01-20 11:15 | PT.OTN ---
Current Diagnoses Primary osteoarthritis, unspecified ankle and foot (01/20/18) Pain in left foot (01/20/18) Physical Therapy Treatment Note PT-OP-A Visit Information Start: 10/12/17 15:25 Freq: Status: Active Protocol: Document 01/20/18 08:08 [facility] (Rec: 01/20/18 11:13 [facility] [id number]) Out-Patient Physical Therapy Visit Information Visit Information Visit Type Treatment Note Visit Start Time 08:08 Visit Stop Time 09:08 Total Visit Minutes 60 Visit Number Number of COMMISSIONS ANALYST Visits 0 Evaluation Information Evaluation Date 10/12/17 PT-OP-B Current Condition Start: 10/12/17 15:25 Freq: Status: Active Protocol: Document 10/12/17 15:26 [facility] (Rec: 10/12/17 16:01 [facility] [id number]) Current Condition History of Current Condition Onset Date 07/27/17 Current Complaints function-limiting pain bilateral feet left greater than right. History of Current Condition Woke up swollen and painful on outside of left foot 07/27/17, no known reason. Xray showed avulsion fracture of styloid process of 5th metatarsal. Wore post-op boot for 8 weeks, pain persisted with no healing of fracture. Patient wears boot still occasionally but has transitioned to wearing tennis shoes though with rigid metal insert, heel lift, and old orthotics bilaterally. States she feels pain worse wearing the metal insert as recommended by physician. Persistent pain bilateral feet, neuropathy bilateral toes, neuritis outside of right foot. Hoping to get some pain relief in PT . Currently doing water exercise for fitness but is not helping foot pain. Uses heat around her feet at night, no ice. Has not tried kinesiotape or a brace. Future Testing and Treatments Planned Scheduled for left talonavicular fusion 02/19/18. Treatment Goals Patient/Caregiver Goals Pain relief, improved function Prior Functional Status Baseline Function- ADL's Independent Baseline Function- Mobility Independent Baseline Function- Gait independent no device Baseline Function- Work/School retired Current Functional Impairments (Reported) Functional Limitations- ADL's painful Functional Limitations- Mobility/Gait painful PT-OP-C Subjective Start: 10/12/17 15:25 Freq: Status: Active Protocol: Document 01/20/18 08:08 [facility] (Rec: 01/20/18 11:13 [facility] [id number]) OP-PT Subjective Patient Comments Patient Comments Pt returns from vacation with her attending today's session to problem-solve transfers to multiple surfaces including from floor if patient were to fall, simulating inability to weight -bear on left LE as will be case after surgery. PT-OP-G Mobility & Gait Start: 10/12/17 15:25 Freq: Status: Active Protocol: Document 10/12/17 15:26 [facility] (Rec: 10/13/17 08:55 [facility] [id number]) OP Gait Assessment Gait Gait Assistance Required: Independent Assistive Devices Assistive Device None Gait Deviations General Gait Pattern Antalgic Lateral Trunk Lean Factors Limiting Gait Function Factors Limiting Gait Function Pain Comments Gait Comments Wearing bilateral metal inserts, heel lifts, orthotics : excessive lateral sway due to lack of sagittal plane movement due to metal inserts. Putting increased weight laterally on feet which is likely what is causing increase in foot pain. Stair Climbing Evaluation Evaluation Level of Assist On Stairs Independent Comments Stair Climbing Comments Painful and labored, again due to lack of saggital plane movement PT-OP-J Posture/Palpation/Skin Start: 10/12/17 15:25 Freq: Status: Active Protocol: Document 10/12/17 15:26 [facility] (Rec: 10/13/17 08:55 [facility] [id number]) Posture Evaluation Position Standing Ankle/Foot Posture (L) Pronated (R) Pronated (L) Calcaneal Eversion (R) Calcaneal Eversion Skin Assessment Edema Assessment Bilateral Foot Comments Patient presents with edema lateral left foot, dorsum of right foot PT-OP-K Range of Motion Start: 10/12/17 15:25 Freq: Status: Active Protocol: Document 10/12/17 15:26 [facility] (Rec: 10/13/17 08:55 [facility] [id number]) Knee Goniometric Range of Motion Knee ROM Limitations Comments bilateral knees WNL Ankle and Foot Goniometric Range of Motion Ankle and Foot Measured in Degrees Right Active Testing Position Sitting Dorsiflexion with Knee Flexed 8 Plantarflexion 40 Inversion 30 Eversion 35 Left Testing Position Sitting Dorsiflexion with Knee Flexed 5 Plantarflexion 50 Inversion 25 Eversion 30 Ankle and Foot ROM Limitations ROM Limitations Soft Tissue Tightness Pain Swelling PT-OP-M Strength Start: 08/07/18 15:25 Freq: Status: Active Protocol: Document 10/12/17 15:26 [facility] (Rec: 10/13/17 08:55 [facility] [id number]) Ankle/Foot Strength Ankle and Foot Manual Muscle Testing Right Dorsiflexion (L4) 4 Good Plantarflexion (S1) 4- Good- Inversion 4 Good Eversion (S1) 4 Good Left Dorsiflexion (L4) 4- Good- Plantarflexion (S1) 3- Fair- Inversion 4- Good- Eversion (S1) 4- Good- Comments painful all motions PT-OP-Q Treatments Start: 10/12/17 15:25 Freq: Status: Active Protocol: Document 01/20/18 08:08 [facility] (Rec: 01/20/18 11:13 [facility] [id number]) Manual Therapy Treatment Soft Tissue Mobilization 1 Body Location left foot and ankle Mobilization Type Strumming Intensity/Depth gentle Body Position Hooklying Self-Care/Home Management Treatment Education Other Education for patient and : safe transfers: simulating toilet, car, and floor transfers, discussion of equipment including need for transfer belt, possibly transfer board, raised toilet, cushion in wheelchair and transfer chair to decrease work to UE's. PT-OP-R Modalities Start: 10/12/17 15:25 Freq: Status: Active Protocol: Document 01/20/18 08:08 [facility] (Rec: 01/20/18 11:13 [facility] [id number]) Electric Stimulation Electric Stimulation Interferential Current (IFC) Body Location left foot/ankle Duration (Minutes) 15 Contraction Type Normal Target/Sweep Sweep Combined With Heat/Cold Cold Pack Comments cryocuff (ice pack to right foot/ankle) PT-OP-T Assessment and Plan Start: 10/12/17 15:25 Freq: Status: Active Protocol: Document 01/20/18 08:08 [facility] (Rec: 01/20/18 11:13 [facility] [id number]) Physical Therapy Assessment Goals Antalgic gait Impairment gait Crematory Attendant Goal (LTG) Patient able to ambulate with minimal to no limp using appropriate assistive device as needed (goal progress, variable with pain) LTG Duration 3 months Foot and Ankle Ability Measure ADL's Impairment 50% Crematory Attendant Goal (LTG) Improve score to at least 75% (goal progress) LTG Duration 3 months Lower extremity functional scale Impairment Score 38% Crematory Attendant Goal (LTG) Improve lower extremity functional scale to at least 60% (goal progress) LTG Duration 3 months Pain bilateral feet 6/10 Impairment pain Crematory Attendant Goal (LTG) Decrease pain to no greater than 3/10 (goal progress) LTG Duration 3 months Assessment Summary Assessment Patient and demonstrated good understanding of the education and practice of transfers for after her surgery, with concern for not overstraining UE's. Will benefit from shift in focus to shoulders remaining visits as indicated, continue to prepare patient for left foot and ankle surgery. Education in use of cryocuff was also provided with good understanding; patient has obtained one for home use. Physical Therapy Plan Frequency and Duration Frequency of Treatment 1x/Week Duration of Treatment 1 month Plan of Care Start Date 01/06/18 Plan of Care End Date 02/07/18 Therapeutic Interventions Therapeutic Interventions Aquatic Therapy Gait Training Home Exercise Program Manual Therapy Neuromuscular Re-education Orthotic/Prosthetic Management Patient/Caregiver Education Self-Care/Home Management Taping Therapeutic Activities Therapeutic Exercises Modalities Cold Pack/Ice Massage Electric Stimulation Hot Packs Iontophoresis Ultrasound Next Visit Focus/Plan Next Note Type Treatment Note Next Visit Plan Review all patient and education, determine any further need for practice or education prior to surgery. Possibly shift focus to treatment of shoulder pain.
--- NOTE | 2018-03-04 15:06 | PT.OPDS ---
Current Diagnoses Primary osteoarthritis, unspecified ankle and foot (01/20/18) Pain in left foot (01/20/18) Provider Visit Care Team Role Provider Type Justin Gayle MD Attending Provider Physician Family Provider Primary Care Provider Specialty: Internal Medicine Address: [address] [place] [address], [facility] Email: Visit Number Visit Number Discharge Summary PT-OP-B Current Condition Start: 10/12/17 15:25 Freq: Status: Active Protocol: Document 10/12/17 15:26 [facility] (Rec: 10/12/17 16:01 [facility] [id number]) Current Condition History of Current Condition Onset Date 07/27/17 Current Complaints function-limiting pain bilateral feet left greater than right. History of Current Condition Woke up swollen and painful on outside of left foot 07/27/17, no known reason. Xray showed avulsion fracture of styloid process of 5th metatarsal. Wore post-op boot for 8 weeks, pain persisted with no healing of fracture. Patient wears boot still occasionally but has transitioned to wearing tennis shoes though with rigid metal insert, heel lift, and old orthotics bilaterally. States she feels pain worse wearing the metal insert as recommended by physician. Persistent pain bilateral feet, neuropathy bilateral toes, neuritis outside of right foot. Hoping to get some pain relief in PT . Currently doing water exercise for fitness but is not helping foot pain. Uses heat around her feet at night, no ice. Has not tried kinesiotape or a brace. Future Testing and Treatments Planned Scheduled for left talonavicular fusion 02/19/18. Treatment Goals Patient/Caregiver Goals Pain relief, improved function Prior Functional Status Baseline Function- ADL's Independent Baseline Function- Mobility Independent Baseline Function- Gait independent no device Baseline Function- Work/School retired Current Functional Impairments (Reported) Functional Limitations- ADL's painful Functional Limitations- Mobility/Gait painful PT-OP-C Subjective Start: 10/12/17 15:25 Freq: Status: Active Protocol: Document 01/20/18 08:08 [facility] (Rec: 01/20/18 11:13 [facility] [id number]) OP-PT Subjective Patient Comments Patient Comments Pt returns from vacation with her attending today's session to problem-solve transfers to multiple surfaces including from floor if patient were to fall, simulating inability to weight -bear on left LE as will be case after surgery. PT-OP-G Mobility & Gait Start: 10/12/17 15:25 Freq: Status: Active Protocol: Document 10/12/17 15:26 [facility] (Rec: 10/13/17 08:55 [facility] [id number]) OP Gait Assessment Gait Gait Assistance Required: Independent Assistive Devices Assistive Device None Gait Deviations General Gait Pattern Antalgic Lateral Trunk Lean Factors Limiting Gait Function Factors Limiting Gait Function Pain Comments Gait Comments Wearing bilateral metal inserts, heel lifts, orthotics : excessive lateral sway due to lack of sagittal plane movement due to metal inserts. Putting increased weight laterally on feet which is likely what is causing increase in foot pain. Stair Climbing Evaluation Evaluation Level of Assist On Stairs Independent Comments Stair Climbing Comments Painful and labored, again due to lack of saggital plane movement PT-OP-J Posture/Palpation/Skin Start: 10/12/17 15:25 Freq: Status: Active Protocol: Document 10/12/17 15:26 [facility] (Rec: 10/13/17 08:55 [facility] [id number]) Posture Evaluation Position Standing Ankle/Foot Posture (L) Pronated (R) Pronated (L) Calcaneal Eversion (R) Calcaneal Eversion Skin Assessment Edema Assessment Bilateral Foot Comments Patient presents with edema lateral left foot, dorsum of right foot PT-OP-K Range of Motion Start: 10/12/17 15:25 Freq: Status: Active Protocol: Document 10/12/17 15:26 [facility] (Rec: 10/13/17 08:55 [facility] [id number]) Knee Goniometric Range of Motion Knee ROM Limitations Comments bilateral knees WNL Ankle and Foot Goniometric Range of Motion Ankle and Foot Measured in Degrees Right Active Testing Position Sitting Dorsiflexion with Knee Flexed 8 Plantarflexion 40 Inversion 30 Eversion 35 Left Testing Position Sitting Dorsiflexion with Knee Flexed 5 Plantarflexion 50 Inversion 25 Eversion 30 Ankle and Foot ROM Limitations ROM Limitations Soft Tissue Tightness Pain Swelling PT-OP-M Strength Start: 10/12/17 15:25 Freq: Status: Active Protocol: Document 10/12/17 15:26 [facility] (Rec: 10/13/17 08:55 [facility] [id number]) Ankle/Foot Strength Ankle and Foot Manual Muscle Testing Right Dorsiflexion (L4) 4 Good Plantarflexion (S1) 4- Good- Inversion 4 Good Eversion (S1) 4 Good Left Dorsiflexion (L4) 4- Good- Plantarflexion (S1) 3- Fair- Inversion 4- Good- Eversion (S1) 4- Good- Comments painful all motions PT-OP-T Assessment and Plan Start: 10/12/17 15:25 Freq: Status: Active Protocol: Document 03/04/18 15:03 [facility] (Rec: 03/04/18 15:06 [facility] [id number]) Physical Therapy Plan Discharge Physical Therapy Discharge Comments Patient to be discharged due to upcoming surgery on her foot. Anticipating PT after that. Unable to attend last scheduled appointment. Discharge from PT
== END 2018-07-18 17:14 | disposition home or self-care (01) ==
LOC: PHYS 08:15
PROVIDERS: Family Provider Internal Medicine; PCP Internal Medicine; Visit Provider Internal Medicine
DX: M79.672 Pain in left foot (principal); M19.079 Primary osteoarthritis, unspecified ankle and foot
CPT/HCPCS: 97014; 97035; 97110; 97140; 97163; 97535; G0283

== ENCOUNTER → 2018-02-15 10:31 | Outpatient (CLI) | payer MEDICARE, OTHER, SELFPAY ==
[2018-02-15 12:02] LABS: Add Manual Diff / Slide Review NO; Basophils Percent Auto 1.4 % (0-2); Eosinophils Percent Auto 3.2 % (2-4); Hematocrit 40.1 % (36-46); Hemoglobin 13.5 g/dL (12.0-16.0); Lymphocytes Percent Auto 36.7 % (25-40); Mean Corpuscular HGB Conc 33.7 % (30-36); Mean Corpuscular Hemoglobin 30.4 PG (26-34); Mean Corpuscular Volume 90.3 fL (80-100); Monocytes Percent Auto 13.6 % (3-14); Neutrophils Absolute Auto 1700 /uL (3000-5900); Neutrophils Percent Auto 45.1 % (50-75); Platelet Count 205 X10^3/uL (150-400); Red Blood Cell Count 4.44 X10^6/uL (4.0-5.2); Red Cell Distribution Width 13.7 % (11.6-14.8); White Blood Cell Count 3.9 X10^3/uL (4.5-11.0)
[2018-02-15 12:13] LABS: Alanine Aminotransferase 30 IU/L (9-52); Albumin Globulin Ratio 1.7 (1.0-2.8); Alkaline Phosphatase 46 U/L (38-126); Aspartate Aminotransferase 23 IU/L (14-36); Bilirubin Total 0.8 mg/dL (0.2-1.3); Bilirubin Unconjugated 0.6 mg/dL (0.0-1.1); Estimated Glomerular Filt Rate > 60.0 mL/min (>60); Globulin 2.4 g/dL (1.7-4.1); HEMOLYSIS < 15 (0-50); Total Protein 6.4 g/dL (6.3-8.2)
[2018-02-17 10:21] LABS: Cholesterol 320 mg/dL (140-199); HDL Cholesterol 70 mg/dL (40-60); LDL Cholesterol Calculated 181 mg/dL (<100); Triglycerides 344 mg/dL (35-150)
== END ==
PROVIDERS: Family Provider Internal Medicine; PCP Internal Medicine; Visit Provider Internal Medicine Rheumatology
DX: M06.00 Rheumatoid arthritis without rheumatoid factor, unspecified site (principal); E78.5 Hyperlipidemia, unspecified; Z51.81 Encounter for therapeutic drug level monitoring
CPT/HCPCS: 36415; 80061; 80076; 82565; 85025

== ENCOUNTER → 2018-04-28 10:32 | Outpatient (CLI) | payer MEDICARE, OTHER, SELFPAY ==
[2018-04-28 11:20] LABS: Add Manual Diff / Slide Review NO; Basophils Absolute Auto 0 /uL (0-100); Basophils Percent Auto 1.2 % (0-2); Eosinophils Absolute Auto 100 /uL (0-450); Eosinophils Percent Auto 2.7 % (2-4); Hemoglobin 13.6 g/dL (12.0-16.0); Lymphocytes Absolute Auto 1200 /uL (1100-4500); Lymphocytes Percent Auto 28.9 % (25-40); Mean Corpuscular HGB Conc 32.4 % (30-36); Mean Corpuscular Hemoglobin 29.5 PG (26-34); Mean Corpuscular Volume 91.1 fL (80-100); Monocytes Absolute Auto 600 /uL (0-900); Monocytes Percent Auto 16.1 % (3-14); Neutrophils Absolute Auto 2000 /uL (1500-7000); Neutrophils Percent Auto 51.1 % (50-75); Platelet Count 187 X10^3/uL (150-400); Red Blood Cell Count 4.61 X10^6/uL (4.0-5.2); Red Cell Distribution Width 13.8 % (11.6-14.8)
[2018-04-28 12:09] LABS: Alanine Aminotransferase 31 IU/L (9-52); Albumin 4.1 g/dL (3.5-5.0); Albumin Globulin Ratio 1.7 (1.0-2.8); Alkaline Phosphatase 52 U/L (38-126); Aspartate Aminotransferase 20 IU/L (14-36); Bilirubin Total 0.7 mg/dL (0.2-1.3); Bilirubin Unconjugated 0.3 mg/dL (0.0-1.1); Cholesterol 302 mg/dL (140-199); Estimated Glomerular Filt Rate > 60.0 mL/min (>60); Globulin 2.4 g/dL (1.7-4.1); HDL Cholesterol 77 mg/dL (40-60); HEMOLYSIS < 15 (0-50); LDL Cholesterol Calculated 162 mg/dL (<100); Total Protein 6.5 g/dL (6.3-8.2); Triglycerides 315 mg/dL (35-150)
== END ==
PROVIDERS: PCP Physician Assistant; Visit Provider Internal Medicine Rheumatology
DX: E78.5 Hyperlipidemia, unspecified (principal); Z51.81 Encounter for therapeutic drug level monitoring
CPT/HCPCS: 36415; 80061; 80076; 82565; 85025

== ENCOUNTER → 2018-06-14 08:19 | Outpatient (CLI) | payer MEDICARE, OTHER, SELFPAY ==
[2018-06-14 09:13] LABS: Add Manual Diff / Slide Review NO; Basophils Absolute Auto 0 /uL (0-100); Basophils Percent Auto 1.4 % (0-2); Eosinophils Absolute Auto 100 /uL (0-450); Eosinophils Percent Auto 3.3 % (2-4); Hematocrit 40.6 % (36-46); Hemoglobin 13.7 g/dL (12.0-16.0); Lymphocytes Absolute Auto 900 /uL (1100-4500); Lymphocytes Percent Auto 32.6 % (25-40); Mean Corpuscular HGB Conc 33.7 % (30-36); Mean Corpuscular Hemoglobin 29.9 PG (26-34); Mean Corpuscular Volume 88.7 fL (80-100); Monocytes Absolute Auto 500 /uL (0-900); Monocytes Percent Auto 16.9 % (3-14); Neutrophils Absolute Auto 1300 /uL (1500-7000); Neutrophils Percent Auto 45.8 % (50-75); Platelet Count 189 X10^3/uL (150-400); Red Blood Cell Count 4.58 X10^6/uL (4.0-5.2); Red Cell Distribution Width 13.9 % (11.6-14.8); White Blood Cell Count 2.8 X10^3/uL (4.5-11.0)
[2018-06-14 09:31] LABS: Alanine Aminotransferase 29 IU/L (9-52); Albumin 3.9 g/dL (3.5-5.0); Albumin Globulin Ratio 1.6 (1.0-2.8); Alkaline Phosphatase 46 U/L (38-126); Aspartate Aminotransferase 19 IU/L (14-36); BUN Creatinine Ratio 21.3 (6-22); Bilirubin Total 0.7 mg/dL (0.2-1.3); Bilirubin Unconjugated 0.5 mg/dL (0.0-1.1); Blood Urea Nitrogen 17 mg/dL (7-17); Calcium 9.5 mg/dL (8.4-10.2); Carbon Dioxide 30 mmol/L (22-32); Chloride 103 mmol/L (98-107); Cholesterol 218 mg/dL (140-199); Estimated Glomerular Filt Rate > 60.0 mL/min (>60); Globulin 2.5 g/dL (1.7-4.1); Glucose 100 mg/dL (80-110); HDL Cholesterol 69 mg/dL (40-60); HEMOLYSIS < 15 (0-50); LDL Cholesterol Calculated 108 mg/dL (<100); Potassium 4.1 mmol/L (3.4-5.1); Sodium 137 mmol/L (137-145); Total Protein 6.4 g/dL (6.3-8.2); Triglycerides 204 mg/dL (35-150)
== END ==
PROVIDERS: PCP Physician Assistant; Visit Provider Internal Medicine Rheumatology
DX: E78.5 Hyperlipidemia, unspecified (principal); M06.00 Rheumatoid arthritis without rheumatoid factor, unspecified site; Z51.81 Encounter for therapeutic drug level monitoring
CPT/HCPCS: 36415; 80053; 80061; 80076; 85025

== ENCOUNTER → 2018-07-12 17:42 | Outpatient (CLI) | payer MEDICARE, OTHER, SELFPAY ==
--- NOTE | 2018-07-12 | DI.MRI.S_ITS ---
PROCEDURE: MR LUMBAR SPINE WO CON INDICATIONS: Low back pain radiating down posterior right leg to knee. Bilateral foot numbness TECHNIQUE: Noncontrast sagittal T1 spin echo and T2 fast echo, sagittal STIR, axial T1 and T2 fast spin echo through the lumbar spine. In cases with scoliosis, additional coronal T2 fast spin echo may be performed. COMPARISON: None. FINDINGS: Image quality: Excellent. Alignment and Curvature: There is normal bony alignment. Bone Marrow: Severe L5-S1 disc degeneration. Multilevel degenerative endplate sclerosis and spurring. Diffuse facet arthropathy. No evidence of acute compression fracture Spinal Cord: Conus medullaris terminates at the L2 level. Visualized cord demonstrates normal signal and size. Paraspinous Soft Tissues: Left renal atrophy and presumed bilateral T2 hyperintense cysts although technically nonspecific. There is nonspecific, dependent posterior subcutaneous soft tissue edema from level of L2-L4. L1-L2: Normal appearance. L2-L3: Normal appearance. L3-L4: Bilateral facet disease and minimal broad-based posterior disc bulge. Dorsal epidural lipomatosis. Mild central canal narrowing. Lateral recesses appear grossly patent. No neural foraminal narrowing. L4-L5: Central disc protrusion, with mild superior disc extrusion to the level of the inferior L4 endplate, and bilateral severe facet arthropathy with joint effusions on both sides. Mild dorsal epidural lipomatosis. There is moderate to severe central canal narrowing. There is also severe effacement of both lateral recesses with symmetric appearance and compression of the descending nerve roots on both sides. Mild left foraminal narrowing and nerve root compression. Minimal right foraminal stenosis. L5-S1: Broad-based posterior disc bulge and bilateral facet arthropathy. Mild central canal narrowing. Partial effacement of both lateral recesses although symmetric appearance. Severe left foraminal stenosis and compression of the nerve root. Mild right neuroforaminal narrowing. IMPRESSION: Multilevel lower lumbar spondylosis and facet arthropathy, with severe L4-L5 canal stenosis as above. Severe effacement of both L4-L5 lateral recesses is also noted. Severe left L5-S1 foraminal narrowing. Dictated by: Shailesh Headley M.D. on 07/13/2018 at 8:36 Approved by: Shailesh Headley M.D. on 07/13/2018 at 9:14
== END ==
PROVIDERS: PCP Physician Assistant; Visit Provider Internal Medicine
DX: M54.5 Low back pain (principal); M47.26 Other spondylosis with radiculopathy, lumbar region; M47.27 Other spondylosis with radiculopathy, lumbosacral region; M48.061 Spinal stenosis, lumbar region without neurogenic claudication; M48.07 Spinal stenosis, lumbosacral region
CPT/HCPCS: 72148

== ENCOUNTER 2018-08-18 10:30 | Outpatient (RCR) | payer MEDICARE, OTHER, SELFPAY ==
--- NOTE | 2018-04-03 12:36 | PT.OIE ---
Current Diagnoses Difficulty in walking, not elsewhere classified (03/30/18) Weakness (03/30/18) Encounter for other orthopedic aftercare (03/30/18) Provider Visit Care Team Role Provider Type Justin Gayle MD Family Provider Physician Primary Care Provider Specialty: Internal Medicine Address: [address] [place] [address], [id number] Email: Doctor Poly MD Attending Provider Non-Staff Specialty: Medical Address: Phone: Fax: Email: Physical Therapy Initial Evaluation PT-OP-A Visit Information Start: 03/30/18 14:30 Freq: Status: Active Protocol: Document 03/30/18 14:30 [facility] (Rec: 04/01/18 09:00 [facility] [id number]) Out-Patient Physical Therapy Visit Information Visit Information Visit Type Initial Evaluation Visit Start Time 14:30 Visit Stop Time 15:25 Total Visit Minutes 55 Visit Number 1 Number of CONTRACT ENGINEER Visits 0 Evaluation Information Evaluation Date 03/30/18 Precautions Precautions 50% weight-bearing in CAM boot for 2 weeks starting today, progress by 25% every 2 wks. When 100% weight-bearing in CAM boot may try regular shoe. PT-OP-B Current Condition Start: 03/30/18 14:30 Freq: Status: Active Protocol: Document 03/30/18 14:30 [facility] (Rec: 03/30/18 15:21 [facility] [id number]) Current Condition History of Current Condition Onset Date 02/16/18 Current Complaints limited left LE function s/p left foot surgery History of Current Condition Underwent left talonavicular fusion and calcaneal autograft 02/16/18. Remained NWB for 6 wks. Now to start PT. x-ray yesterday showed good healing , patient reports less pain than before surgery. Order is for 50% WB left LE in CAM boot , then advance by 25% every 2 wks if pain controlled. When 100% in CAM boot ok to transition to normal shoe. Patient reports she sees physician 05/11/18 and he said not to use regular shoe until then. Initiate PT today, has not done exercises or weight on foot prior to today. Fell 2 weeks ago out of wheelchair hitting right anterior knee, c /o pain. Also fell 03/07/18 out of wheelchair. Uncertain if put weight on left LE to get up; not present. Needs gait training on stairs for home; rail on left going up, right going down. reports he feels patient has been putting too much weight on her foot walking with walker today. Of concern is patient's prior shoulder surgeries with concern over heavy use of walker, as well as anticipated need for surgery right foot with fear of increasing pain and dysfunction on that side with increased stress of asymmetrical weight-bearing. Prior Functional Status Baseline Function- ADL's Independent Baseline Function- Mobility Independent Baseline Function- Gait independent without device Current Functional Impairments (Reported) Functional Limitations- ADL's Mostly from wheelchair Functional Limitations- Mobility/Gait CAM boot, 50% WB left LE using FWW. Limited to transfers, very short distance household. Functional Limitations- Recreation/ unable Hobbies PT-OP-C Subjective Start: 03/30/18 14:30 Freq: Status: Active Protocol: Document 03/30/18 14:30 [facility] (Rec: 04/03/18 12:34 [facility] [id number]) Patient Questionnaires Foot & Ankle Ability Measure- ADL and Sports FAAM-ADL Score 31 FAAM-ADL Impairment 60 to 79% Impaired (Score 16- 32) FAAM-Sport Score 0 FAAM-Sport Impairment 100% Impaired (Score 0) Lower Extremity Functional Scale LEFS Score 24 LEFS Impairment 60 to 79% Impaired (Score 17- 31) OP-PT Pain Assessment Pain Assessment Grid Paper Pain Assessment Grid Completed Yes Location right medial buttock Intensity 6 left foot Intensity 2 Pain Behaviors Pain Behaviors Crying Facial Grimacing Guarding Wincing Comments Pain Comments Patient reports minimal pain in her foot. Has moderate pain in right medial buttock; was experiencing prior to surgery but is now worsened with increased sitting post-op . PT-OP-F Manual Assessment Start: 03/30/18 14:30 Freq: Status: Active Protocol: Document 03/30/18 14:30 [facility] (Rec: 04/03/18 12:34 [facility] [id number]) Manual Assessments Other Manual Assessments Other Manual Assessments No increase in warmth left LE. Scar healing well with small area still open due per patient to abscess from stitch . PT-OP-G Mobility & Gait Start: 03/30/18 14:30 Freq: Status: Active Protocol: Document 03/30/18 14:30 [facility] (Rec: 04/03/18 12:34 [facility] [id number]) Stair Climbing Evaluation Evaluation Level of Assist On Stairs Contact Guard Assistance Devices Stair Climbing Assistive Devices Small Base Quad Cane Right Railing Technique/Endurance Stair Climbing Direction Ascend and Descend Stair Climbing Technique Step to Step Comments Stair Climbing Comments cues for 50% weight-bearing, sequencing PT-OP-K Range of Motion Start: 03/30/18 14:30 Freq: Status: Active Protocol: Document 03/30/18 14:30 [facility] (Rec: 04/03/18 12:34 [facility] [id number]) Knee Goniometric Range of Motion Knee Measured in Degrees gloria Knee ROM WFL Yes Ankle and Foot Goniometric Range of Motion Ankle and Foot Measured in Degrees Right Active Dorsiflexion with Knee Flexed 8 Plantarflexion 45 Inversion 30 Eversion 35 Left Ankle/Foot ROM WFL Yes Testing Position Supine Dorsiflexion with Knee Flexed 5 Dorsiflexion with Knee Extended 3 Plantarflexion 42 Inversion 10 Eversion 16 Ankle and Foot ROM Limitations ROM Limitations Soft Tissue Tightness Muscle Weakness PT-OP-M Strength Start: 03/30/18 14:30 Freq: Status: Active Protocol: Document 03/30/18 14:30 [facility] (Rec: 04/03/18 12:34 [facility] [id number]) Hip Strength Hip Manual Muscle Testing Right Reason Not Measured Pain Left Flexion (L2) 3+ Fair+ Abduction 3+ Fair+ External Rotation 3+ Fair+ Internal Rotation 3+ Fair+ Knee Strength Knee Manual Muscle Testing gloria Flexion (S2) 4 Good Extension (L3) 4 Good Ankle/Foot Strength Ankle and Foot Manual Muscle Testing Right Dorsiflexion (L4) 4 Good Plantarflexion (S1) 4 Good Inversion 4- Good- Eversion (S1) 4- Good- Left Reason Not Measured Orthopedic Precautions PT-OP-Q Treatments Start: 03/30/18 14:30 Freq: Status: Active Protocol: Document 03/30/18 14:30 [facility] (Rec: 04/03/18 12:34 [facility] [id number]) Gait Training Gait Activity 2 Description stairs Device Used quad cane Treatment Focus 50% WB, safety 1 Description 50% WB training Device Used FWW Distance/Duration 10' Comments use of scale Self-Care/Home Management Treatment Education Patient Education Home Exercise Program Joint Protection Pain Management Safety PT-OP-R Modalities Start: 03/30/18 14:30 Freq: Status: Active Protocol: Document 03/30/18 14:30 [facility] (Rec: 04/03/18 12:34 [facility] [id number]) Hot Pack/Cold Pack Treatment Cold Pack Location left foot/ankle Patient Position Hooklying PT-OP-T Assessment and Plan Start: 03/30/18 14:30 Freq: Status: Active Protocol: Document 03/30/18 14:30 [facility] (Rec: 04/03/18 12:34 [facility] [id number]) Physical Therapy Assessment Goals decreased ROM and strength left foot/ankle Impairment foot/ankle ROM and strength Hand Stripper Goal (LTG) Improve left ankle ROM and strength to WNL LTG Duration 3 months pain right foot/ankle Impairment 2/10 Hand Stripper Goal (LTG) Patient able to progress with ther ex and gait and return to usual activities without pain increasing greater than 2/10 LTG Duration 3 months Antalgic gait Impairment antalgic gait, using FWW, 50% WB Short Term Goal (STG) Patient will progress to 100% WB left LE without an increase in pain STG Duration 4 wks Nursing Home Goal (LTG) Patient able to ambulate with minimal to no limp using appropriate assistive device as needed LTG Duration 3 months Foot and Ankle Ability Measure ADL's Impairment 31% Short Term Goal (STG) Improve score to at least 50% STG Duration 4 wks Nursing Home Goal (LTG) Improve score to at least 75% LTG Duration 3 months Lower extremity functional scale Impairment 30% Short Term Goal (STG) Improve score to at least 50% STG Duration 4 wks Hand Stripper Goal (LTG) Improve lower extremity functional scale to at least 70% (goal progress) LTG Duration 3 months Pain bilateral feet 6/10 Impairment pain Nursing Home Goal (LTG) Decrease pain to no greater than 3/10 (goal progress) LTG Duration 3 months Assessment Summary Assessment Patient presents to PT 6 wks post op from left talonavicular fusion. Recovery has been complicated by two falls, one of which has caused right knee pain and patient is also reporting moderate pain in right buttock . Pain right foot and ankle reported mild. Per physician order we initiated gait training at 50% weight-bearing left LE today wearing CAM boot using a scale for patient education regarding 50% weight-bearing status. After education she reported she realized she was putting too much weight on her left LE ( started trying at home this am ); demonstrated good understanding after instruction. We also did gait training on stairs as patient has stairs to her bedroom at home she hasn't used since surgery; demonstrated good understanding and able to ascend and descend stairs safely. present for evaluation and all gait training. Patsy will benefit from PT for gait training, ROM, strengthening, pain management as indicated. She may need further assessment of her right knee and buttock pain as they may limit her recovery and function. Additionally patient is anticipating a similar surgery on her right foot, and has a history of shoulder pain and surgeries as well; I am concerned about the stress to her shoulders and right foot as she tries to increase her ambulation with limited weight -bearing right. As soon as her incision is fully healed I recommend aquatic therapy for buoyancy-supported ther ex and gait training; patient is highly receptive. Physical Therapy Plan Frequency and Duration Frequency of Treatment 1x/Week Duration of Treatment 3 months Plan of Care Start Date 03/30/18 Plan of Care End Date 06/28/18 Therapeutic Interventions Therapeutic Interventions Aquatic Therapy Gait Training Home Exercise Program Manual Therapy Neuromuscular Re-education Patient/Caregiver Education Self-Care/Home Management Therapeutic Activities Therapeutic Exercises Modalities Cold Pack/Ice Massage Electric Stimulation Ultrasound Next Visit Focus/Plan Next Note Type Treatment Note Next Visit Plan Initiate gentle ther ex for ROM and strengthening, further gait training education using scale. Manual therapy and modalities as needed for pain and swelling. Ongoing assessment of patient's incision; begin aquatic therapy when fully healed.
--- NOTE | 2018-04-04 16:32 | PT.OTN ---
Current Diagnoses Encounter for other orthopedic aftercare (04/04/18) Physical Therapy Treatment Note PT-OP-A Visit Information Start: 03/30/18 14:30 Freq: Status: Active Protocol: Document 04/04/18 14:32 [facility] (Rec: 04/04/18 16:30 [facility] [id number]) Out-Patient Physical Therapy Visit Information Visit Information Visit Type Initial Evaluation Visit Start Time 14:30 Visit Stop Time 15:30 Total Visit Minutes 60 Visit Number 3 Number of DENTAL LABORATORY TECHNOLOGY TEACHER Visits 0 Evaluation Information Evaluation Date 03/30/18 Precautions Precautions 50% weight-bearing in CAM boot for 2 weeks starting today, progress by 25% every 2 wks. When 100% weight-bearing in CAM boot may try regular shoe. PT-OP-B Current Condition Start: 03/30/18 14:30 Freq: Status: Active Protocol: Document 03/30/18 14:30 [facility] (Rec: 03/30/18 15:21 [facility] [id number]) Current Condition History of Current Condition Onset Date 02/16/18 Current Complaints limited left LE function s/p left foot surgery History of Current Condition Underwent left talonavicular fusion and calcaneal autograft 02/16/18. Remained NWB for 6 wks. Now to start PT. x-ray yesterday showed good healing , patient reports less pain than before surgery. Order is for 50% WB left LE in CAM boot , then advance by 25% every 2 wks if pain controlled. When 100% in CAM boot ok to transition to normal shoe. Patient reports she sees physician 05/11/18 and he said not to use regular shoe until then. Initiate PT today, has not done exercises or weight on foot prior to today. Fell 2 weeks ago out of wheelchair hitting right anterior knee, c /o pain. Also fell 03/07/18 out of wheelchair. Uncertain if put weight on left LE to get up; not present. Needs gait training on stairs for home; rail on left going up, right going down. reports he feels patient has been putting too much weight on her foot walking with walker today. Of concern is patient's prior shoulder surgeries with concern over heavy use of walker, as well as anticipated need for surgery right foot with fear of increasing pain and dysfunction on that side with increased stress of asymmetrical weight-bearing. Prior Functional Status Baseline Function- ADL's Independent Baseline Function- Mobility Independent Baseline Function- Gait independent without device Current Functional Impairments (Reported) Functional Limitations- ADL's Mostly from wheelchair Functional Limitations- Mobility/Gait CAM boot, 50% WB left LE using FWW. Limited to transfers, very short distance household. Functional Limitations- Recreation/ unable Hobbies PT-OP-C Subjective Start: 03/30/18 14:30 Freq: Status: Active Protocol: Document 04/04/18 14:32 [facility] (Rec: 04/04/18 16:30 [facility] [id number]) OP-PT Subjective Patient Comments Patient Comments Reports she is not sure she is doing well with weight- bearing status, shoulders and wrists sore. Minimal pain left foot. Right buttock pain persists PT-OP-F Manual Assessment Start: 03/30/18 14:30 Freq: Status: Active Protocol: Document 03/30/18 14:30 [facility] (Rec: 04/03/18 12:34 [facility] [id number]) Manual Assessments Other Manual Assessments Other Manual Assessments No increase in warmth left LE. Scar healing well with small area still open due per patient to abscess from stitch . PT-OP-G Mobility & Gait Start: 03/30/18 14:30 Freq: Status: Active Protocol: Document 03/30/18 14:30 [facility] (Rec: 04/03/18 12:34 [facility] [id number]) Stair Climbing Evaluation Evaluation Level of Assist On Stairs Contact Guard Assistance Devices Stair Climbing Assistive Devices Small Base Quad Cane Right Railing Technique/Endurance Stair Climbing Direction Ascend and Descend Stair Climbing Technique Step to Step Comments Stair Climbing Comments cues for 50% weight-bearing, sequencing PT-OP-K Range of Motion Start: 03/30/18 14:30 Freq: Status: Active Protocol: Document 03/30/18 14:30 [facility] (Rec: 04/03/18 12:34 [facility] [id number]) Knee Goniometric Range of Motion Knee Measured in Degrees gloria Knee ROM WFL Yes Ankle and Foot Goniometric Range of Motion Ankle and Foot Measured in Degrees Right Active Dorsiflexion with Knee Flexed 8 Plantarflexion 45 Inversion 30 Eversion 35 Left Ankle/Foot ROM WFL Yes Testing Position Supine Dorsiflexion with Knee Flexed 5 Dorsiflexion with Knee Extended 3 Plantarflexion 42 Inversion 10 Eversion 16 Ankle and Foot ROM Limitations ROM Limitations Soft Tissue Tightness Muscle Weakness PT-OP-M Strength Start: 03/30/18 14:30 Freq: Status: Active Protocol: Document 03/30/18 14:30 [facility] (Rec: 04/03/18 12:34 [facility] [id number]) Hip Strength Hip Manual Muscle Testing Right Reason Not Measured Pain Left Flexion (L2) 3+ Fair+ Abduction 3+ Fair+ External Rotation 3+ Fair+ Internal Rotation 3+ Fair+ Knee Strength Knee Manual Muscle Testing gloria Flexion (S2) 4 Good Extension (L3) 4 Good Ankle/Foot Strength Ankle and Foot Manual Muscle Testing Right Dorsiflexion (L4) 4 Good Plantarflexion (S1) 4 Good Inversion 4- Good- Eversion (S1) 4- Good- Left Reason Not Measured Orthopedic Precautions PT-OP-Q Treatments Start: 03/30/18 14:30 Freq: Status: Active Protocol: Document 04/04/18 14:32 [facility] (Rec: 04/04/18 16:30 [facility] [id number]) Cardio Equipment Recumbent Elliptical ([employer]) Duration (Minutes) 7 Resistance 1 Therapeutic Exercises Sitting Exercises march Reps/Minutes 10x LAQ Reps/Minutes 10x ankle and toe sequential df,ext,pf,flx Reps/Minutes 10x toe swap, toe piano Reps/Minutes 10x hip ad Sitting Exercise Name ball squeeze Reps/Minutes 10x hip ab Sitting Exercise Name hip ab/ER with TB Equipment Used L1 TB Reps/Minutes 10x 4 Sitting Exercise Name BAPS board L2 Comments AP, side, circles 3 Sitting Exercise Name short foot Side bilateral Reps/Minutes 10x Gait Training Gait Activity 1 Description 50% WB training Device Used FWW Level of Assistance SBA, verbal and manual cues Distance/Duration 10' Treatment Focus 50% WB Comments use of scale in parallel bars, cues for shorter steps, FWW lowered by 1 notch for better fit. Manual Therapy Treatment Soft Tissue Mobilization 1 Body Location left foot and ankle Mobilization Type Strumming Intensity/Depth gentle Body Position Hooklying Self-Care/Home Management Treatment Education Patient Education Home Exercise Program Joint Protection Pain Management Safety Other Education Gradual increase in gait, don' t push too quickly PT-OP-R Modalities Start: 03/30/18 14:30 Freq: Status: Active Protocol: Document 04/04/18 14:32 [facility] (Rec: 04/04/18 16:30 [facility] [id number]) Hot Pack/Cold Pack Treatment Cold Pack Location left foot/ankle Patient Position Hooklying PT-OP-T Assessment and Plan Start: 03/30/18 14:30 Freq: Status: Active Protocol: Document 04/04/18 14:32 [facility] (Rec: 04/04/18 16:30 [facility] [id number]) Physical Therapy Assessment Goals decreased ROM and strength left foot/ankle Impairment foot/ankle ROM and strength Prison Goal (LTG) Improve left ankle ROM and strength to WNL LTG Duration 3 months pain right foot/ankle Impairment 2/10 Prison Goal (LTG) Patient able to progress with ther ex and gait and return to usual activities without pain increasing greater than 2/10 LTG Duration 3 months Antalgic gait Impairment antalgic gait, using FWW, 50% WB Short Term Goal (STG) Patient will progress to 100% WB left LE without an increase in pain STG Duration 4 wks Coating And Baking Operator Goal (LTG) Patient able to ambulate with minimal to no limp using appropriate assistive device as needed LTG Duration 3 months Foot and Ankle Ability Measure ADL's Impairment 31% Short Term Goal (STG) Improve score to at least 50% STG Duration 4 wks Coating And Baking Operator Goal (LTG) Improve score to at least 75% LTG Duration 3 months Lower extremity functional scale Impairment 30% Short Term Goal (STG) Improve score to at least 50% STG Duration 4 wks Prison Goal (LTG) Improve lower extremity functional scale to at least 70% (goal progress) LTG Duration 3 months Assessment Summary Assessment Improving kinesthetic awareness of 50% WB, though with gait has difficulty at this time, wrists and shoulders sore. Incision still not fully healed to allow aquatic therapy. Needs continued review of WB status using scale. Good silvino for sitting and supine ex for LE's Physical Therapy Plan Frequency and Duration Frequency of Treatment 2x/Week Duration of Treatment 3 months Plan of Care Start Date 03/30/18 Plan of Care End Date 06/28/18 Therapeutic Interventions Therapeutic Interventions Aquatic Therapy Gait Training Home Exercise Program Manual Therapy Neuromuscular Re-education Patient/Caregiver Education Self-Care/Home Management Therapeutic Activities Therapeutic Exercises Modalities Cold Pack/Ice Massage Electric Stimulation Ultrasound Next Visit Focus/Plan Next Note Type Treatment Note Next Visit Plan Continue PT per POC
--- NOTE | 2018-04-04 16:32 | PT.OPPOC ---
Current Diagnoses Encounter for other orthopedic aftercare (04/04/18) Provider Visit Care Team Role Provider Type Justin Gayle MD Family Provider Physician Primary Care Provider Specialty: Internal Medicine Address: [address] [place] [address], [id number] Email: Doctor Poly MD Attending Provider Non-Staff Specialty: Medical Address: Phone: Fax: Email: Plan Of Care PT-OP-T Assessment and Plan Start: 03/30/18 14:30 Freq: Status: Active Protocol: Document 04/04/18 14:32 [facility] (Rec: 04/04/18 16:30 [facility] [id number]) Physical Therapy Assessment Goals decreased ROM and strength left foot/ankle Impairment foot/ankle ROM and strength [facility] Goal (LTG) Improve left ankle ROM and strength to WNL LTG Duration 3 months pain right foot/ankle Impairment 2/10 [facility] Goal (LTG) Patient able to progress with ther ex and gait and return to usual activities without pain increasing greater than 2/10 LTG Duration 3 months Antalgic gait Impairment antalgic gait, using FWW, 50% WB Short Term Goal (STG) Patient will progress to 100% WB left LE without an increase in pain STG Duration 4 wks [facility] Goal (LTG) Patient able to ambulate with minimal to no limp using appropriate assistive device as needed LTG Duration 3 months Foot and Ankle Ability Measure ADL's Impairment 31% Short Term Goal (STG) Improve score to at least 50% STG Duration 4 wks [facility] Goal (LTG) Improve score to at least 75% LTG Duration 3 months Lower extremity functional scale Impairment 30% Short Term Goal (STG) Improve score to at least 50% STG Duration 4 wks Commercial Underwriter Goal (LTG) Improve lower extremity functional scale to at least 70% (goal progress) LTG Duration 3 months Assessment Summary Assessment Improving kinesthetic awareness of 50% WB, though with gait has difficulty at this time, wrists and shoulders sore. Incision still not fully healed to allow aquatic therapy. Needs continued review of WB status using scale. Good silvino for sitting and supine ex for LE's Physical Therapy Plan Frequency and Duration Frequency of Treatment 2x/Week Duration of Treatment 3 months Plan of Care Start Date 03/30/18 Plan of Care End Date 06/28/18 Therapeutic Interventions Therapeutic Interventions Aquatic Therapy Gait Training Home Exercise Program Manual Therapy Neuromuscular Re-education Patient/Caregiver Education Self-Care/Home Management Therapeutic Activities Therapeutic Exercises Modalities Cold Pack/Ice Massage Electric Stimulation Ultrasound Next Visit Focus/Plan Next Note Type Treatment Note Next Visit Plan Initiate gentle ther ex for ROM and strengthening, further gait training education using scale. Manual therapy and modalities as needed for pain and swelling. Ongoing assessment of patient's incision; begin aquatic therapy when fully healed. Plan of Care Dates Plan of Care Start Date 03/30/18 Plan of Care End Date 06/28/18 Please Sign and Return: I have reviewed this Plan of Care and certify that the skilled therapy services above are required to meet the patient?s needs. Physician Signature Date Printed Name and Credentials Clinical Instructor Signature Printed Name and Credentials
--- NOTE | 2018-04-07 11:16 | PT.OTN ---
Current Diagnoses Encounter for other orthopedic aftercare (04/06/18) Physical Therapy Treatment Note PT-OP-A Visit Information Start: 03/30/18 14:30 Freq: Status: Active Protocol: Document 04/06/18 14:43 [facility] (Rec: 04/06/18 15:24 [facility] [id number]) Out-Patient Physical Therapy Visit Information Visit Information Visit Type Treatment Note Visit Start Time 14:30 Visit Stop Time 15:23 Total Visit Minutes 53 Visit Number 3 Number of MIR[employer] DEPARTMENT SUPERVISOR Visits 0 Evaluation Information Evaluation Date 03/30/18 Precautions Precautions 50% weight-bearing in CAM boot for 2 weeks starting today, progress by 25% every 2 wks. When 100% weight-bearing in CAM boot may try regular shoe. PT-OP-B Current Condition Start: 03/30/18 14:30 Freq: Status: Active Protocol: Document 03/30/18 14:30 [facility] (Rec: 03/30/18 15:21 [facility] [id number]) Current Condition History of Current Condition Onset Date 02/16/18 Current Complaints limited left LE function s/p left foot surgery History of Current Condition Underwent left talonavicular fusion and calcaneal autograft 02/16/18. Remained NWB for 6 wks. Now to start PT. x-ray yesterday showed good healing , patient reports less pain than before surgery. Order is for 50% WB left LE in CAM boot , then advance by 25% every 2 wks if pain controlled. When 100% in CAM boot ok to transition to normal shoe. Patient reports she sees physician 05/11/18 and he said not to use regular shoe until then. Initiate PT today, has not done exercises or weight on foot prior to today. Fell 2 weeks ago out of wheelchair hitting right anterior knee, c /o pain. Also fell 03/07/18 out of wheelchair. Uncertain if put weight on left LE to get up; not present. Needs gait training on stairs for home; rail on left going up, right going down. reports he feels patient has been putting too much weight on her foot walking with walker today. Of concern is patient's prior shoulder surgeries with concern over heavy use of walker, as well as anticipated need for surgery right foot with fear of increasing pain and dysfunction on that side with increased stress of asymmetrical weight-bearing. Prior Functional Status Baseline Function- ADL's Independent Baseline Function- Mobility Independent Baseline Function- Gait independent without device Current Functional Impairments (Reported) Functional Limitations- ADL's Mostly from wheelchair Functional Limitations- Mobility/Gait CAM boot, 50% WB left LE using FWW. Limited to transfers, very short distance household. Functional Limitations- Recreation/ unable Hobbies PT-OP-C Subjective Start: 03/30/18 14:30 Freq: Status: Active Protocol: Document 04/06/18 14:43 [facility] (Rec: 04/07/18 11:16 [facility] [id number]) OP-PT Subjective Patient Comments Patient Comments Needs further work on weight- bearing. No pain in foot but reports soreness/pain in wrists and shoulders. PT-OP-F Manual Assessment Start: 03/30/18 14:30 Freq: Status: Active Protocol: Document 03/30/18 14:30 [facility] (Rec: 04/03/18 12:34 [facility] [id number]) Manual Assessments Other Manual Assessments Other Manual Assessments No increase in warmth left LE. Scar healing well with small area still open due per patient to abscess from stitch . PT-OP-G Mobility & Gait Start: 03/30/18 14:30 Freq: Status: Active Protocol: Document 03/30/18 14:30 [facility] (Rec: 04/03/18 12:34 [facility] [id number]) Stair Climbing Evaluation Evaluation Level of Assist On Stairs Contact Guard Assistance Devices Stair Climbing Assistive Devices Small Base Quad Cane Right Railing Technique/Endurance Stair Climbing Direction Ascend and Descend Stair Climbing Technique Step to Step Comments Stair Climbing Comments cues for 50% weight-bearing, sequencing PT-OP-K Range of Motion Start: 03/30/18 14:30 Freq: Status: Active Protocol: Document 03/30/18 14:30 [facility] (Rec: 04/03/18 12:34 [facility] [id number]) Knee Goniometric Range of Motion Knee Measured in Degrees gloria Knee ROM WFL Yes Ankle and Foot Goniometric Range of Motion Ankle and Foot Measured in Degrees Right Active Dorsiflexion with Knee Flexed 8 Plantarflexion 45 Inversion 30 Eversion 35 Left Ankle/Foot ROM WFL Yes Testing Position Supine Dorsiflexion with Knee Flexed 5 Dorsiflexion with Knee Extended 3 Plantarflexion 42 Inversion 10 Eversion 16 Ankle and Foot ROM Limitations ROM Limitations Soft Tissue Tightness Muscle Weakness PT-OP-M Strength Start: 03/30/18 14:30 Freq: Status: Active Protocol: Document 03/30/18 14:30 [facility] (Rec: 04/03/18 12:34 [facility] [id number]) Hip Strength Hip Manual Muscle Testing Right Reason Not Measured Pain Left Flexion (L2) 3+ Fair+ Abduction 3+ Fair+ External Rotation 3+ Fair+ Internal Rotation 3+ Fair+ Knee Strength Knee Manual Muscle Testing gloria Flexion (S2) 4 Good Extension (L3) 4 Good Ankle/Foot Strength Ankle and Foot Manual Muscle Testing Right Dorsiflexion (L4) 4 Good Plantarflexion (S1) 4 Good Inversion 4- Good- Eversion (S1) 4- Good- Left Reason Not Measured Orthopedic Precautions PT-OP-Q Treatments Start: 03/30/18 14:30 Freq: Status: Active Protocol: Document 04/06/18 14:43 [facility] (Rec: 04/07/18 11:16 [facility] [id number]) Cardio Equipment Recumbent Elliptical ([employer]ChatAnd)) Duration (Minutes) 8 Resistance 1 Therapeutic Exercises Sitting Exercises ankle and toe sequential df,ext,pf,flx Reps/Minutes 10x toe swap, toe piano Reps/Minutes 10x 4 Sitting Exercise Name BAPS board L2 Comments AP, side, circles 3 Sitting Exercise Name short foot Side bilateral Reps/Minutes 10x Gait Training Gait Activity level gait Device Used FWW Level of Assistance verbal cues Surface level Distance/Duration 75' Treatment Focus 50% weight-bearing 1 Description 50% WB training Device Used FWW Level of Assistance SBA, verbal and manual cues Distance/Duration 10' Treatment Focus 50% WB Comments standing and weight-shifting use of scale in parallel bars, cues for shorter steps Manual Therapy Treatment Soft Tissue Mobilization 1 Body Location left foot and ankle Mobilization Type Strumming Intensity/Depth gentle Body Position Hooklying Self-Care/Home Management Treatment Education Patient Education Home Exercise Program Joint Protection Pain Management Safety Other Education Gradual increase in gait, don' t push too quickly PT-OP-R Modalities Start: 03/30/18 14:30 Freq: Status: Active Protocol: Document 04/06/18 14:43 [facility] (Rec: 04/07/18 11:16 [facility] [id number]) Hot Pack/Cold Pack Treatment Cold Pack Location left foot/ankle Patient Position Hooklying PT-OP-T Assessment and Plan Start: 03/30/18 14:30 Freq: Status: Active Protocol: Document 04/06/18 14:43 [facility] (Rec: 04/07/18 11:16 [facility] [id number]) Physical Therapy Assessment Goals decreased ROM and strength left foot/ankle Impairment foot/ankle ROM and strength Intermediate Goal (LTG) Improve left ankle ROM and strength to WNL LTG Duration 3 months pain right foot/ankle Impairment 2/10 Intermediate Goal (LTG) Patient able to progress with ther ex and gait and return to usual activities without pain increasing greater than 2/10 LTG Duration 3 months Antalgic gait Impairment antalgic gait, using FWW, 50% WB Short Term Goal (STG) Patient will progress to 100% WB left LE without an increase in pain STG Duration 4 wks Intermediate Goal (LTG) Patient able to ambulate with minimal to no limp using appropriate assistive device as needed LTG Duration 3 months Foot and Ankle Ability Measure ADL's Impairment 31% Short Term Goal (STG) Improve score to at least 50% STG Duration 4 wks Intermediate Goal (LTG) Improve score to at least 75% LTG Duration 3 months Lower extremity functional scale Impairment 30% Short Term Goal (STG) Improve score to at least 50% STG Duration 4 wks Intermediate Goal (LTG) Improve lower extremity functional scale to at least 70% (goal progress) LTG Duration 3 months Assessment Summary Assessment Continues to improve in compliance and ability to maintain weight-bearing status in standing, difficult with gait Physical Therapy Plan Frequency and Duration Frequency of Treatment 2x/Week Duration of Treatment 3 months Plan of Care Start Date 03/30/18 Plan of Care End Date 06/28/18 Therapeutic Interventions Therapeutic Interventions Aquatic Therapy Gait Training Home Exercise Program Manual Therapy Neuromuscular Re-education Patient/Caregiver Education Self-Care/Home Management Therapeutic Activities Therapeutic Exercises Modalities Cold Pack/Ice Massage Electric Stimulation Ultrasound Next Visit Focus/Plan Next Note Type Treatment Note Next Visit Plan Continue PT per POC
--- NOTE | 2018-04-11 15:09 | PT.OTN ---
Current Diagnoses Encounter for other orthopedic aftercare (04/11/18) Physical Therapy Treatment Note PT-OP-A Visit Information Start: 03/30/18 14:30 Freq: Status: Active Protocol: Document 04/11/18 11:45 [facility] (Rec: 04/11/18 15:09 [facility] [id number]) Out-Patient Physical Therapy Visit Information Visit Information Visit Type Aquatic Treatment Note Visit Start Time 11:45 Visit Stop Time 12:30 Total Visit Minutes 45 Visit Number 4 Number of WAGE CONCILIATOR Visits 0 PT-OP-B Current Condition Start: 03/30/18 14:30 Freq: Status: Active Protocol: Document 03/30/18 14:30 [facility] (Rec: 03/30/18 15:21 [facility] [id number]) Current Condition History of Current Condition Onset Date 02/16/18 Current Complaints limited left LE function s/p left foot surgery History of Current Condition Underwent left talonavicular fusion and calcaneal autograft 02/16/18. Remained NWB for 6 wks. Now to start PT. x-ray yesterday showed good healing , patient reports less pain than before surgery. Order is for 50% WB left LE in CAM boot , then advance by 25% every 2 wks if pain controlled. When 100% in CAM boot ok to transition to normal shoe. Patient reports she sees physician 05/11/18 and he said not to use regular shoe until then. Initiate PT today, has not done exercises or weight on foot prior to today. Fell 2 weeks ago out of wheelchair hitting right anterior knee, c /o pain. Also fell 03/07/18 out of wheelchair. Uncertain if put weight on left LE to get up; not present. Needs gait training on stairs for home; rail on left going up, right going down. reports he feels patient has been putting too much weight on her foot walking with walker today. Of concern is patient's prior shoulder surgeries with concern over heavy use of walker, as well as anticipated need for surgery right foot with fear of increasing pain and dysfunction on that side with increased stress of asymmetrical weight-bearing. Prior Functional Status Baseline Function- ADL's Independent Baseline Function- Mobility Independent Baseline Function- Gait independent without device Current Functional Impairments (Reported) Functional Limitations- ADL's Mostly from wheelchair Functional Limitations- Mobility/Gait CAM boot, 50% WB left LE using FWW. Limited to transfers, very short distance household. Functional Limitations- Recreation/ unable Hobbies PT-OP-C Subjective Start: 03/30/18 14:30 Freq: Status: Active Protocol: Document 04/11/18 11:45 [facility] (Rec: 04/11/18 15:09 [facility] [id number]) OP-PT Subjective Patient Comments Patient Comments c/o left anterior thigh pain, thinks she strained her muscle , possibly hip flexor. Excited to start aquatic therapy. PT-OP-F Manual Assessment Start: 03/30/18 14:30 Freq: Status: Active Protocol: Document 03/30/18 14:30 [facility] (Rec: 04/03/18 12:34 [facility] [id number]) Manual Assessments Other Manual Assessments Other Manual Assessments No increase in warmth left LE. Scar healing well with small area still open due per patient to abscess from stitch . PT-OP-G Mobility & Gait Start: 03/30/18 14:30 Freq: Status: Active Protocol: Document 03/30/18 14:30 [facility] (Rec: 04/03/18 12:34 [facility] [id number]) Stair Climbing Evaluation Evaluation Level of Assist On Stairs Contact Guard Assistance Devices Stair Climbing Assistive Devices Small Base Quad Cane Right Railing Technique/Endurance Stair Climbing Direction Ascend and Descend Stair Climbing Technique Step to Step Comments Stair Climbing Comments cues for 50% weight-bearing, sequencing PT-OP-K Range of Motion Start: 03/30/18 14:30 Freq: Status: Active Protocol: Document 03/30/18 14:30 [facility] (Rec: 04/03/18 12:34 [facility] [id number]) Knee Goniometric Range of Motion Knee Measured in Degrees gloria Knee ROM WFL Yes Ankle and Foot Goniometric Range of Motion Ankle and Foot Measured in Degrees Right Active Dorsiflexion with Knee Flexed 8 Plantarflexion 45 Inversion 30 Eversion 35 Left Ankle/Foot ROM WFL Yes Testing Position Supine Dorsiflexion with Knee Flexed 5 Dorsiflexion with Knee Extended 3 Plantarflexion 42 Inversion 10 Eversion 16 Ankle and Foot ROM Limitations ROM Limitations Soft Tissue Tightness Muscle Weakness PT-OP-M Strength Start: 03/30/18 14:30 Freq: Status: Active Protocol: Document 03/30/18 14:30 [facility] (Rec: 04/03/18 12:34 [facility] [id number]) Hip Strength Hip Manual Muscle Testing Right Reason Not Measured Pain Left Flexion (L2) 3+ Fair+ Abduction 3+ Fair+ External Rotation 3+ Fair+ Internal Rotation 3+ Fair+ Knee Strength Knee Manual Muscle Testing gloria Flexion (S2) 4 Good Extension (L3) 4 Good Ankle/Foot Strength Ankle and Foot Manual Muscle Testing Right Dorsiflexion (L4) 4 Good Plantarflexion (S1) 4 Good Inversion 4- Good- Eversion (S1) 4- Good- Left Reason Not Measured Orthopedic Precautions PT-OP-Q Treatments Start: 03/30/18 14:30 Freq: Status: Active Protocol: Document 04/06/18 14:43 [facility] (Rec: 04/07/18 11:16 [facility] [id number]) Cardio Equipment Recumbent Elliptical ([employer]) Duration (Minutes) 8 Resistance 1 Therapeutic Exercises Sitting Exercises ankle and toe sequential df,ext,pf,flx Reps/Minutes 10x toe swap, toe piano Reps/Minutes 10x 4 Sitting Exercise Name BAPS board L2 Comments AP, side, circles 3 Sitting Exercise Name short foot Side bilateral Reps/Minutes 10x Gait Training Gait Activity level gait Device Used FWW Level of Assistance verbal cues Surface level Distance/Duration 75' Treatment Focus 50% weight-bearing 1 Description 50% WB training Device Used FWW Level of Assistance SBA, verbal and manual cues Distance/Duration 10' Treatment Focus 50% WB Comments standing and weight-shifting use of scale in parallel bars, cues for shorter steps Manual Therapy Treatment Soft Tissue Mobilization 1 Body Location left foot and ankle Mobilization Type Strumming Intensity/Depth gentle Body Position Hooklying Self-Care/Home Management Treatment Education Patient Education Home Exercise Program Joint Protection Pain Management Safety Other Education Gradual increase in gait, don' t push too quickly PT-OP-R Modalities Start: 03/30/18 14:30 Freq: Status: Active Protocol: Document 04/06/18 14:43 [facility] (Rec: 04/07/18 11:16 [facility] [id number]) Hot Pack/Cold Pack Treatment Cold Pack Location left foot/ankle Patient Position Hooklying PT-OP-S Aquatic Treatment Start: 03/30/18 14:30 Freq: Status: Active Protocol: Document 04/11/18 11:45 [facility] (Rec: 04/11/18 15:09 [facility] [id number]) Aquatics Treatment Pool Entry/Exit Pool Entry/Exit Method Stairs Assistance Minimal Assistance Water Walking Marching Water Level Chest Level Level of Assistance Verbal Cues Sideways Water Level Chest Level Level of Assistance Verbal Cues forward Water Level Chest Level Level of Assistance Verbal Cues Lower Extremity Exercises SLS Body Position Hooklying Water Level Chest Level Equipment Small Noodle Reps/Duration 2xs heel raises Body Position Standing Water Level Chest Level Lower Extremity Stretches hip add Body Position Standing Water Level Chest Level Equipment Small Noodle ITB Body Position Standing Water Level Chest Level Equipment Small Noodle Reps/Duration 2x hamstring Water Level Chest Level Equipment Small Noodle Reps/Duration 2x Upper Extremity Exercises shoulder hor ab/ad Details gloria, unil Body Position Hooklying Water Level Chest Level Comments for balance and core challenge Paterson Activities Paterson Activities Bicycle Equipment flotation belt (L) PT-OP-T Assessment and Plan Start: 03/30/18 14:30 Freq: Status: Active Protocol: Document 04/11/18 11:45 [facility] (Rec: 04/11/18 15:09 [facility] [id number]) Physical Therapy Assessment Evaluation Complexity Number of Personal Factors/Comorbidities 3 or More Number of Body Systems Impaired 4 or More Clinical Presentation at Evaluation Unstable Impairments Impairments Activity Tolerance Edema Gait Pain ROM Strength Other Concerns Fall Risk yes due to altered mechanics of gait Goals decreased ROM and strength left foot/ankle Impairment foot/ankle ROM and strength Fpc Goal (LTG) Improve left ankle ROM and strength to WNL LTG Duration 3 months pain right foot/ankle Impairment 2/10 Fpc Goal (LTG) Patient able to progress with ther ex and gait and return to usual activities without pain increasing greater than 2/10 LTG Duration 3 months Antalgic gait Impairment antalgic gait, using FWW, 50% WB Short Term Goal (STG) Patient will progress to 100% WB left LE without an increase in pain STG Duration 4 wks Fpc Goal (LTG) Patient able to ambulate with minimal to no limp using appropriate assistive device as needed LTG Duration 3 months Foot and Ankle Ability Measure ADL's Impairment 31% Short Term Goal (STG) Improve score to at least 50% STG Duration 4 wks Fpc Goal (LTG) Improve score to at least 75% LTG Duration 3 months Lower extremity functional scale Impairment 30% Short Term Goal (STG) Improve score to at least 50% STG Duration 4 wks Fpc Goal (LTG) Improve lower extremity functional scale to at least 70% (goal progress) LTG Duration 3 months Assessment Summary Assessment Patient tolerated aquatic therapy very well, reported no pain in left thigh, right buttock or left foot; exercises done in deep water ( 0% weight-bearing) and chest level (25% weight-bearing) Signs and symptoms left thigh consistent with rectus femoris strain. Patient was instructed in use of ice and heat at home. Physical Therapy Plan Frequency and Duration Frequency of Treatment 2x/Week Duration of Treatment 3 months Plan of Care Start Date 03/30/18 Plan of Care End Date 06/28/18 Therapeutic Interventions Therapeutic Interventions Aquatic Therapy Gait Training Home Exercise Program Manual Therapy Neuromuscular Re-education Patient/Caregiver Education Self-Care/Home Management Therapeutic Activities Therapeutic Exercises Modalities Cold Pack/Ice Massage Electric Stimulation Ultrasound Next Visit Focus/Plan Next Note Type Treatment Note Next Visit Plan Continue PT per POC, aquatic therapy as able.
--- NOTE | 2018-04-14 12:20 | PT.OTN ---
Current Diagnoses Encounter for other orthopedic aftercare (04/14/18) Physical Therapy Treatment Note PT-OP-A Visit Information Start: 03/30/18 14:30 Freq: Status: Active Protocol: Document 04/14/18 11:13 [facility] (Rec: 04/14/18 12:19 [facility] [id number]) Out-Patient Physical Therapy Visit Information Precautions Precautions 75% weight-bearing beginning today PT-OP-B Current Condition Start: 03/30/18 14:30 Freq: Status: Active Protocol: Document 03/30/18 14:30 [facility] (Rec: 03/30/18 15:21 [facility] [id number]) Current Condition History of Current Condition Onset Date 02/16/18 Current Complaints limited left LE function s/p left foot surgery History of Current Condition Underwent left talonavicular fusion and calcaneal autograft 02/16/18. Remained NWB for 6 wks. Now to start PT. x-ray yesterday showed good healing , patient reports less pain than before surgery. Order is for 50% WB left LE in CAM boot , then advance by 25% every 2 wks if pain controlled. When 100% in CAM boot ok to transition to normal shoe. Patient reports she sees physician 05/11/18 and he said not to use regular shoe until then. Initiate PT today, has not done exercises or weight on foot prior to today. Fell 2 weeks ago out of wheelchair hitting right anterior knee, c /o pain. Also fell 03/07/18 out of wheelchair. Uncertain if put weight on left LE to get up; not present. Needs gait training on stairs for home; rail on left going up, right going down. reports he feels patient has been putting too much weight on her foot walking with walker today. Of concern is patient's prior shoulder surgeries with concern over heavy use of walker, as well as anticipated need for surgery right foot with fear of increasing pain and dysfunction on that side with increased stress of asymmetrical weight-bearing. Prior Functional Status Baseline Function- ADL's Independent Baseline Function- Mobility Independent Baseline Function- Gait independent without device Current Functional Impairments (Reported) Functional Limitations- ADL's Mostly from wheelchair Functional Limitations- Mobility/Gait CAM boot, 50% WB left LE using FWW. Limited to transfers, very short distance household. Functional Limitations- Recreation/ unable Hobbies PT-OP-C Subjective Start: 03/30/18 14:30 Freq: Status: Active Protocol: Document 04/14/18 11:13 [facility] (Rec: 04/14/18 12:19 [facility] [id number]) OP-PT Subjective Patient Comments Patient Comments Excited to increase weight- bearing and decrease stress to shoulders. Concerned about stress to right foot as she has been bearing increased weight PT-OP-F Manual Assessment Start: 03/30/18 14:30 Freq: Status: Active Protocol: Document 03/30/18 14:30 [facility] (Rec: 04/03/18 12:34 [facility] [id number]) Manual Assessments Other Manual Assessments Other Manual Assessments No increase in warmth left LE. Scar healing well with small area still open due per patient to abscess from stitch . PT-OP-G Mobility & Gait Start: 03/30/18 14:30 Freq: Status: Active Protocol: Document 03/30/18 14:30 [facility] (Rec: 04/03/18 12:34 [facility] [id number]) Stair Climbing Evaluation Evaluation Level of Assist On Stairs Contact Guard Assistance Devices Stair Climbing Assistive Devices Small Base Quad Cane Right Railing Technique/Endurance Stair Climbing Direction Ascend and Descend Stair Climbing Technique Step to Step Comments Stair Climbing Comments cues for 50% weight-bearing, sequencing PT-OP-K Range of Motion Start: 03/30/18 14:30 Freq: Status: Active Protocol: Document 03/30/18 14:30 [facility] (Rec: 04/03/18 12:34 [facility] [id number]) Knee Goniometric Range of Motion Knee Measured in Degrees gloria Knee ROM WFL Yes Ankle and Foot Goniometric Range of Motion Ankle and Foot Measured in Degrees Right Active Dorsiflexion with Knee Flexed 8 Plantarflexion 45 Inversion 30 Eversion 35 Left Ankle/Foot ROM WFL Yes Testing Position Supine Dorsiflexion with Knee Flexed 5 Dorsiflexion with Knee Extended 3 Plantarflexion 42 Inversion 10 Eversion 16 Ankle and Foot ROM Limitations ROM Limitations Soft Tissue Tightness Muscle Weakness PT-OP-M Strength Start: 03/30/18 14:30 Freq: Status: Active Protocol: Document 03/30/18 14:30 [facility] (Rec: 04/03/18 12:34 [facility] [id number]) Hip Strength Hip Manual Muscle Testing Right Reason Not Measured Pain Left Flexion (L2) 3+ Fair+ Abduction 3+ Fair+ External Rotation 3+ Fair+ Internal Rotation 3+ Fair+ Knee Strength Knee Manual Muscle Testing gloria Flexion (S2) 4 Good Extension (L3) 4 Good Ankle/Foot Strength Ankle and Foot Manual Muscle Testing Right Dorsiflexion (L4) 4 Good Plantarflexion (S1) 4 Good Inversion 4- Good- Eversion (S1) 4- Good- Left Reason Not Measured Orthopedic Precautions PT-OP-Q Treatments Start: 03/30/18 14:30 Freq: Status: Active Protocol: Document 04/14/18 11:13 [facility] (Rec: 04/14/18 12:19 [facility] [id number]) Therapeutic Exercises Sitting Exercises ankle df,pf,inv,ev Side bilateral Resistance L1 TB Reps/Minutes 10x 4 Sitting Exercise Name BAPS board L2,3 Comments AP, side, circles Gait Training Gait Activity 1 Description 75% WB training Device Used FWW, parallel bars Level of Assistance SBA, verbal and manual cues Distance/Duration 10' Treatment Focus 75% WB Comments standing and weight-shifting use of scale in parallel bars, cues for shorter steps Manual Therapy Treatment Soft Tissue Mobilization 1 Body Location left foot and ankle Mobilization Type Strumming Intensity/Depth gentle Body Position Hooklying PT-OP-R Modalities Start: 03/30/18 14:30 Freq: Status: Active Protocol: Document 04/14/18 12:19 [facility] (Rec: 04/14/18 12:20 [facility] [id number]) Hot Pack/Cold Pack Treatment Cold Pack Location left foot/ankle Patient Position Hooklying Treatment Duration (minutes) 10 Comments CRYOCUFF PT-OP-S Aquatic Treatment Start: 03/30/18 14:30 Freq: Status: Active Protocol: Document 04/11/18 11:45 [facility] (Rec: 04/11/18 15:09 [facility] [id number]) Aquatics Treatment Pool Entry/Exit Pool Entry/Exit Method Stairs Assistance Minimal Assistance Water Walking Marching Water Level Chest Level Level of Assistance Verbal Cues Sideways Water Level Chest Level Level of Assistance Verbal Cues forward Water Level Chest Level Level of Assistance Verbal Cues Lower Extremity Exercises SLS Body Position Hooklying Water Level Chest Level Equipment Small Noodle Reps/Duration 2xs heel raises Body Position Standing Water Level Chest Level Lower Extremity Stretches hip add Body Position Standing Water Level Chest Level Equipment Small Noodle ITB Body Position Standing Water Level Chest Level Equipment Small Noodle Reps/Duration 2x hamstring Water Level Chest Level Equipment Small Noodle Reps/Duration 2x Upper Extremity Exercises shoulder hor ab/ad Details gloria, unil Body Position Hooklying Water Level Chest Level Comments for balance and core challenge [place] Activities [place] Activities Bicycle Equipment flotation belt (L) PT-OP-T Assessment and Plan Start: 03/30/18 14:30 Freq: Status: Active Protocol: Document 04/14/18 11:13 [facility] (Rec: 04/14/18 12:19 [facility] [id number]) Physical Therapy Assessment Goals decreased ROM and strength left foot/ankle Impairment foot/ankle ROM and strength Heater Planer Operator Goal (LTG) Improve left ankle ROM and strength to WNL LTG Duration 3 months pain right foot/ankle Impairment 2/10 Group Home Goal (LTG) Patient able to progress with ther ex and gait and return to usual activities without pain increasing greater than 2/10 LTG Duration 3 months Antalgic gait Impairment antalgic gait, using FWW, 50% WB Short Term Goal (STG) Patient will progress to 100% WB left LE without an increase in pain STG Duration 4 wks Group Home Goal (LTG) Patient able to ambulate with minimal to no limp using appropriate assistive device as needed LTG Duration 3 months Foot and Ankle Ability Measure ADL's Impairment 31% Short Term Goal (STG) Improve score to at least 50% STG Duration 4 wks Heater Planer Operator Goal (LTG) Improve score to at least 75% LTG Duration 3 months Lower extremity functional scale Impairment 30% Short Term Goal (STG) Improve score to at least 50% STG Duration 4 wks Heater Planer Operator Goal (LTG) Improve lower extremity functional scale to at least 70% (goal progress) LTG Duration 3 months Progress Towards Goals Progress Comments . Assessment Summary Assessment Decrease in right thigh pain, no pain with increase in weight-bearing to 75% Physical Therapy Plan Frequency and Duration Frequency of Treatment 2x/Week Duration of Treatment 3 months Plan of Care Start Date 03/30/18 Plan of Care End Date 06/28/18 Therapeutic Interventions Therapeutic Interventions Aquatic Therapy Gait Training Home Exercise Program Manual Therapy Neuromuscular Re-education Patient/Caregiver Education Self-Care/Home Management Therapeutic Activities Therapeutic Exercises Modalities Cold Pack/Ice Massage Electric Stimulation Ultrasound Next Visit Focus/Plan Next Note Type Treatment Note Next Visit Plan Continue combination aquatic and land-based PT for rehab left foot s/p surgery
--- NOTE | 2018-04-21 16:25 | PT.OTN ---
Current Diagnoses Encounter for other orthopedic aftercare (04/21/18) Physical Therapy Treatment Note PT-OP-A Visit Information Start: 03/30/18 14:30 Freq: Status: Active Protocol: Document 04/21/18 10:27 [facility] (Rec: 04/21/18 11:14 [facility] [id number]) Out-Patient Physical Therapy Visit Information Visit Information Visit Type Treatment Note Visit Start Time 10:30 Visit Stop Time 11:25 Total Visit Minutes 55 Visit Number 6 Number of PHOTOGRAPHIC PLATE MAKER Visits 0 Evaluation Information Evaluation Date 03/30/18 Precautions Precautions 75% weight-bearing for 1 more week PT-OP-B Current Condition Start: 03/30/18 14:30 Freq: Status: Active Protocol: Document 03/30/18 14:30 [facility] (Rec: 03/30/18 15:21 [facility] [id number]) Current Condition History of Current Condition Onset Date 02/16/18 Current Complaints limited left LE function s/p left foot surgery History of Current Condition Underwent left talonavicular fusion and calcaneal autograft 02/16/18. Remained NWB for 6 wks. Now to start PT. x-ray yesterday showed good healing , patient reports less pain than before surgery. Order is for 50% WB left LE in CAM boot , then advance by 25% every 2 wks if pain controlled. When 100% in CAM boot ok to transition to normal shoe. Patient reports she sees physician 05/11/18 and he said not to use regular shoe until then. Initiate PT today, has not done exercises or weight on foot prior to today. Fell 2 weeks ago out of wheelchair hitting right anterior knee, c /o pain. Also fell 03/07/18 out of wheelchair. Uncertain if put weight on left LE to get up; not present. Needs gait training on stairs for home; rail on left going up, right going down. reports he feels patient has been putting too much weight on her foot walking with walker today. Of concern is patient's prior shoulder surgeries with concern over heavy use of walker, as well as anticipated need for surgery right foot with fear of increasing pain and dysfunction on that side with increased stress of asymmetrical weight-bearing. Prior Functional Status Baseline Function- ADL's Independent Baseline Function- Mobility Independent Baseline Function- Gait independent without device Current Functional Impairments (Reported) Functional Limitations- ADL's Mostly from wheelchair Functional Limitations- Mobility/Gait CAM boot, 50% WB left LE using FWW. Limited to transfers, very short distance household. Functional Limitations- Recreation/ unable Hobbies PT-OP-C Subjective Start: 03/30/18 14:30 Freq: Status: Active Protocol: Document 04/21/18 10:27 [facility] (Rec: 04/21/18 11:14 [facility] [id number]) OP-PT Subjective Patient Comments Patient Comments Continues to have issues with sciatica and shoulder discomfort due to walking with boot and walker, biomechanical compensation. No foot pain except occasional arch twinges. PT-OP-F Manual Assessment Start: 03/30/18 14:30 Freq: Status: Active Protocol: Document 03/30/18 14:30 [facility] (Rec: 04/03/18 12:34 [facility] [id number]) Manual Assessments Other Manual Assessments Other Manual Assessments No increase in warmth left LE. Scar healing well with small area still open due per patient to abscess from stitch . PT-OP-G Mobility & Gait Start: 03/30/18 14:30 Freq: Status: Active Protocol: Document 03/30/18 14:30 [facility] (Rec: 04/03/18 12:34 [facility] [id number]) Stair Climbing Evaluation Evaluation Level of Assist On Stairs Contact Guard Assistance Devices Stair Climbing Assistive Devices Small Base Quad Cane Right Railing Technique/Endurance Stair Climbing Direction Ascend and Descend Stair Climbing Technique Step to Step Comments Stair Climbing Comments cues for 50% weight-bearing, sequencing PT-OP-K Range of Motion Start: 03/30/18 14:30 Freq: Status: Active Protocol: Document 03/30/18 14:30 [facility] (Rec: 04/03/18 12:34 [facility] [id number]) Knee Goniometric Range of Motion Knee Measured in Degrees gloria Knee ROM WFL Yes Ankle and Foot Goniometric Range of Motion Ankle and Foot Measured in Degrees Right Active Dorsiflexion with Knee Flexed 8 Plantarflexion 45 Inversion 30 Eversion 35 Left Ankle/Foot ROM WFL Yes Testing Position Supine Dorsiflexion with Knee Flexed 5 Dorsiflexion with Knee Extended 3 Plantarflexion 42 Inversion 10 Eversion 16 Ankle and Foot ROM Limitations ROM Limitations Soft Tissue Tightness Muscle Weakness PT-OP-M Strength Start: 03/30/18 14:30 Freq: Status: Active Protocol: Document 03/30/18 14:30 [facility] (Rec: 04/03/18 12:34 [facility] [id number]) Hip Strength Hip Manual Muscle Testing Right Reason Not Measured Pain Left Flexion (L2) 3+ Fair+ Abduction 3+ Fair+ External Rotation 3+ Fair+ Internal Rotation 3+ Fair+ Knee Strength Knee Manual Muscle Testing gloria Flexion (S2) 4 Good Extension (L3) 4 Good Ankle/Foot Strength Ankle and Foot Manual Muscle Testing Right Dorsiflexion (L4) 4 Good Plantarflexion (S1) 4 Good Inversion 4- Good- Eversion (S1) 4- Good- Left Reason Not Measured Orthopedic Precautions PT-OP-Q Treatments Start: 03/30/18 14:30 Freq: Status: Active Protocol: Document 04/21/18 10:27 [facility] (Rec: 04/21/18 11:14 [facility] [id number]) Cardio Equipment Recumbent Elliptical (Biodex) Duration (Minutes) 10 Resistance 1 Gym Equipment Shuttle Recovery Bilateral Squats Resistance 75 Shuttle Recovery Platform Stable Reps/Time 10x2 Therapeutic Exercises Supine Exercises heelslides with therapy balll Reps/Minutes 10x Sitting Exercises heel raise Reps/Minutes 10x ankle df,pf,inv,ev Side bilateral Resistance L1 TB Reps/Minutes 10x ankle and toe sequential df,ext,pf,flx Reps/Minutes 10x toe swap, toe piano Reps/Minutes 10x 4 Sitting Exercise Name BAPS board L3 Comments AP, side, circles 3 Sitting Exercise Name short foot Side bilateral Reps/Minutes 10x Gait Training Gait Activity level gait Device Used FWW Level of Assistance verbal cues Surface level Distance/Duration 75' Treatment Focus 50% weight-bearing Manual Therapy Treatment Soft Tissue Mobilization 1 Body Location left foot and ankle Mobilization Type Strumming Intensity/Depth gentle Body Position Hooklying PT-OP-R Modalities Start: 03/30/18 14:30 Freq: Status: Active Protocol: Document 04/21/18 10:27 [facility] (Rec: 04/21/18 16:25 [facility] [id number]) Hot Pack/Cold Pack Treatment Cold Pack Location left foot/ankle Patient Position Hooklying Treatment Duration (minutes) 10 Comments CRYOCUFF PT-OP-S Aquatic Treatment Start: 03/30/18 14:30 Freq: Status: Active Protocol: Document 04/11/18 11:45 [facility] (Rec: 04/11/18 15:09 [facility] [id number]) Aquatics Treatment Pool Entry/Exit Pool Entry/Exit Method Stairs Assistance Minimal Assistance Water Walking Marching Water Level Chest Level Level of Assistance Verbal Cues Sideways Water Level Chest Level Level of Assistance Verbal Cues forward Water Level Chest Level Level of Assistance Verbal Cues Lower Extremity Exercises SLS Body Position Hooklying Water Level Chest Level Equipment Small Noodle Reps/Duration 2xs heel raises Body Position Standing Water Level Chest Level Lower Extremity Stretches hip add Body Position Standing Water Level Chest Level Equipment Small Noodle ITB Body Position Standing Water Level Chest Level Equipment Small Noodle Reps/Duration 2x hamstring Water Level Chest Level Equipment Small Noodle Reps/Duration 2x Upper Extremity Exercises shoulder hor ab/ad Details gloria, unil Body Position Hooklying Water Level Chest Level Comments for balance and core challenge [place] Activities [place] Activities Bicycle Equipment flotation belt (L) PT-OP-T Assessment and Plan Start: 03/30/18 14:30 Freq: Status: Active Protocol: Document 04/21/18 10:27 [facility] (Rec: 04/21/18 16:25 [facility] [id number]) Physical Therapy Assessment Goals decreased ROM and strength left foot/ankle Impairment foot/ankle ROM and strength Coremaker Floor Goal (LTG) Improve left ankle ROM and strength to WNL LTG Duration 3 months pain right foot/ankle Impairment 2/10 Mcfp Goal (LTG) Patient able to progress with ther ex and gait and return to usual activities without pain increasing greater than 2/10 LTG Duration 3 months Antalgic gait Impairment antalgic gait, using FWW, 50% WB Short Term Goal (STG) Patient will progress to 100% WB left LE without an increase in pain STG Duration 4 wks Mcfp Goal (LTG) Patient able to ambulate with minimal to no limp using appropriate assistive device as needed LTG Duration 3 months Foot and Ankle Ability Measure ADL's Impairment 31% Short Term Goal (STG) Improve score to at least 50% STG Duration 4 wks Mcfp Goal (LTG) Improve score to at least 75% LTG Duration 3 months Lower extremity functional scale Impairment 30% Short Term Goal (STG) Improve score to at least 50% STG Duration 4 wks Mcfp Goal (LTG) Improve lower extremity functional scale to at least 70% (goal progress) LTG Duration 3 months Physical Therapy Plan Frequency and Duration Frequency of Treatment 2x/Week Duration of Treatment 3 months Plan of Care Start Date 03/30/18 Plan of Care End Date 06/28/18 Therapeutic Interventions Therapeutic Interventions Aquatic Therapy Gait Training Home Exercise Program Manual Therapy Neuromuscular Re-education Patient/Caregiver Education Self-Care/Home Management Therapeutic Activities Therapeutic Exercises Modalities Cold Pack/Ice Massage Electric Stimulation Ultrasound Next Visit Focus/Plan Next Note Type Treatment Note Next Visit Plan Will be able to be 100% weight -bearing in 1 week.
--- NOTE | 2018-04-29 14:00 | PT.OTN ---
Current Diagnoses Encounter for other orthopedic aftercare (04/21/18) Physical Therapy Treatment Note PT-OP-A Visit Information Start: 03/30/18 14:30 Freq: Status: Active Protocol: Document 04/29/18 13:47 [facility] (Rec: 04/29/18 14:00 [facility] [id number]) Out-Patient Physical Therapy Visit Information Visit Information Visit Type Aquatic Treatment Note Visit Start Time 11:00 Visit Stop Time 11:45 Total Visit Minutes 45 Visit Number 7 Number of FITTER HAND Visits 0 Precautions Precautions Now full weight-bearing in boot PT-OP-B Current Condition Start: 03/30/18 14:30 Freq: Status: Active Protocol: Document 03/30/18 14:30 [facility] (Rec: 03/30/18 15:21 [facility] [id number]) Current Condition History of Current Condition Onset Date 02/16/18 Current Complaints limited left LE function s/p left foot surgery History of Current Condition Underwent left talonavicular fusion and calcaneal autograft 02/16/18. Remained NWB for 6 wks. Now to start PT. x-ray yesterday showed good healing , patient reports less pain than before surgery. Order is for 50% WB left LE in CAM boot , then advance by 25% every 2 wks if pain controlled. When 100% in CAM boot ok to transition to normal shoe. Patient reports she sees physician 05/11/18 and he said not to use regular shoe until then. Initiate PT today, has not done exercises or weight on foot prior to today. Fell 2 weeks ago out of wheelchair hitting right anterior knee, c /o pain. Also fell 03/07/18 out of wheelchair. Uncertain if put weight on left LE to get up; not present. Needs gait training on stairs for home; rail on left going up, right going down. reports he feels patient has been putting too much weight on her foot walking with walker today. Of concern is patient's prior shoulder surgeries with concern over heavy use of walker, as well as anticipated need for surgery right foot with fear of increasing pain and dysfunction on that side with increased stress of asymmetrical weight-bearing. Prior Functional Status Baseline Function- ADL's Independent Baseline Function- Mobility Independent Baseline Function- Gait independent without device Current Functional Impairments (Reported) Functional Limitations- ADL's Mostly from wheelchair Functional Limitations- Mobility/Gait CAM boot, 50% WB left LE using FWW. Limited to transfers, very short distance household. Functional Limitations- Recreation/ unable Hobbies PT-OP-C Subjective Start: 03/30/18 14:30 Freq: Status: Active Protocol: Document 04/29/18 13:47 [facility] (Rec: 04/29/18 14:00 [facility] [id number]) OP-PT Subjective Patient Comments Patient Comments Happy to get back in the water . Last session mistakenly showed up at pool instead of clinic. PT-OP-F Manual Assessment Start: 03/30/18 14:30 Freq: Status: Active Protocol: Document 03/30/18 14:30 [facility] (Rec: 04/03/18 12:34 [facility] [id number]) Manual Assessments Other Manual Assessments Other Manual Assessments No increase in warmth left LE. Scar healing well with small area still open due per patient to abscess from stitch . PT-OP-G Mobility & Gait Start: 03/30/18 14:30 Freq: Status: Active Protocol: Document 03/30/18 14:30 [facility] (Rec: 04/03/18 12:34 [facility] [id number]) Stair Climbing Evaluation Evaluation Level of Assist On Stairs Contact Guard Assistance Devices Stair Climbing Assistive Devices Small Base Quad Cane Right Railing Technique/Endurance Stair Climbing Direction Ascend and Descend Stair Climbing Technique Step to Step Comments Stair Climbing Comments cues for 50% weight-bearing, sequencing PT-OP-K Range of Motion Start: 03/30/18 14:30 Freq: Status: Active Protocol: Document 03/30/18 14:30 [facility] (Rec: 04/03/18 12:34 [facility] [id number]) Knee Goniometric Range of Motion Knee Measured in Degrees gloria Knee ROM WFL Yes Ankle and Foot Goniometric Range of Motion Ankle and Foot Measured in Degrees Right Active Dorsiflexion with Knee Flexed 8 Plantarflexion 45 Inversion 30 Eversion 35 Left Ankle/Foot ROM WFL Yes Testing Position Supine Dorsiflexion with Knee Flexed 5 Dorsiflexion with Knee Extended 3 Plantarflexion 42 Inversion 10 Eversion 16 Ankle and Foot ROM Limitations ROM Limitations Soft Tissue Tightness Muscle Weakness PT-OP-M Strength Start: 03/30/18 14:30 Freq: Status: Active Protocol: Document 03/30/18 14:30 [facility] (Rec: 04/03/18 12:34 [facility] [id number]) Hip Strength Hip Manual Muscle Testing Right Reason Not Measured Pain Left Flexion (L2) 3+ Fair+ Abduction 3+ Fair+ External Rotation 3+ Fair+ Internal Rotation 3+ Fair+ Knee Strength Knee Manual Muscle Testing gloria Flexion (S2) 4 Good Extension (L3) 4 Good Ankle/Foot Strength Ankle and Foot Manual Muscle Testing Right Dorsiflexion (L4) 4 Good Plantarflexion (S1) 4 Good Inversion 4- Good- Eversion (S1) 4- Good- Left Reason Not Measured Orthopedic Precautions PT-OP-Q Treatments Start: 03/30/18 14:30 Freq: Status: Active Protocol: Document 04/21/18 10:27 [facility] (Rec: 04/21/18 11:14 [facility] [id number]) Cardio Equipment Recumbent Elliptical (Biodex) Duration (Minutes) 10 Resistance 1 Gym Equipment Shuttle Recovery Bilateral Squats Resistance 75 Shuttle Recovery Platform Stable Reps/Time 10x2 Therapeutic Exercises Supine Exercises heelslides with therapy balll Reps/Minutes 10x Sitting Exercises heel raise Reps/Minutes 10x ankle df,pf,inv,ev Side bilateral Resistance L1 TB Reps/Minutes 10x ankle and toe sequential df,ext,pf,flx Reps/Minutes 10x toe swap, toe piano Reps/Minutes 10x 4 Sitting Exercise Name BAPS board L3 Comments AP, side, circles 3 Sitting Exercise Name short foot Side bilateral Reps/Minutes 10x Gait Training Gait Activity level gait Device Used FWW Level of Assistance verbal cues Surface level Distance/Duration 75' Treatment Focus 50% weight-bearing Manual Therapy Treatment Soft Tissue Mobilization 1 Body Location left foot and ankle Mobilization Type Strumming Intensity/Depth gentle Body Position Hooklying PT-OP-R Modalities Start: 03/30/18 14:30 Freq: Status: Active Protocol: Document 04/21/18 10:27 [facility] (Rec: 04/21/18 16:25 [facility] [id number]) Hot Pack/Cold Pack Treatment Cold Pack Location left foot/ankle Patient Position Hooklying Treatment Duration (minutes) 10 Comments CRYOCUFF PT-OP-S Aquatic Treatment Start: 03/30/18 14:30 Freq: Status: Active Protocol: Document 04/29/18 13:47 [facility] (Rec: 04/29/18 14:00 [facility] [id number]) Aquatics Treatment Pool Entry/Exit Pool Entry/Exit Method Stairs Assistance Minimal Assistance Water Walking Marching Water Level Chest Level Level of Assistance Verbal Cues Sideways Water Level Chest Level Level of Assistance Verbal Cues forward Water Level Chest Level Level of Assistance Verbal Cues Lower Extremity Exercises knee flex/ext Body Position Standing Water Level Neck Level Reps/Duration 10x hip ab/ad Body Position Standing Water Level Neck Level Reps/Duration 10x Hip flex/ex Body Position Standing Water Level Neck Level Reps/Duration 10x squats Body Position Standing Water Level Chest Level Reps/Duration 10x toe raises Body Position Standing Water Level Neck Level SLS Body Position Standing Water Level Chest Level Equipment Small Noodle Reps/Duration 2xs heel raises Body Position Standing Water Level Chest Level Reps/Duration 10x Lower Extremity Stretches DKTC, SKTC, free the hip Body Position Standing Water Level [place] Reps/Duration 2x Comments 2 wall hip add Body Position Standing Water Level Chest Level Equipment Ankle Floats ITB Body Position Standing Water Level Chest Level Equipment Ankle Floats hamstring Body Position Standing Water Level Chest Level Equipment Ankle Floats [place] Activities [place] Activities Bicycle [place] Running Sit Kicks Equipment flotation belt (L) Duration 20 min PT-OP-T Assessment and Plan Start: 03/30/18 14:30 Freq: Status: Active Protocol: Document 04/29/18 13:47 [facility] (Rec: 04/29/18 14:00 [facility] [id number]) Physical Therapy Assessment Goals decreased ROM and strength left foot/ankle Impairment foot/ankle ROM and strength Torch Straightener Goal (LTG) Improve left ankle ROM and strength to WNL LTG Duration 3 months pain right foot/ankle Impairment 2/10 Nursing Home Goal (LTG) Patient able to progress with ther ex and gait and return to usual activities without pain increasing greater than 2/10 LTG Duration 3 months Antalgic gait Impairment antalgic gait, using FWW, 50% WB Short Term Goal (STG) Patient will progress to 100% WB left LE without an increase in pain STG Duration 4 wks Nursing Home Goal (LTG) Patient able to ambulate with minimal to no limp using appropriate assistive device as needed LTG Duration 3 months Foot and Ankle Ability Measure ADL's Impairment 31% Short Term Goal (STG) Improve score to at least 50% STG Duration 4 wks Torch Straightener Goal (LTG) Improve score to at least 75% LTG Duration 3 months Lower extremity functional scale Impairment 30% Short Term Goal (STG) Improve score to at least 50% STG Duration 4 wks Torch Straightener Goal (LTG) Improve lower extremity functional scale to at least 70% (goal progress) LTG Duration 3 months Physical Therapy Plan Frequency and Duration Frequency of Treatment 2x/Week Duration of Treatment 3 months Plan of Care Start Date 03/30/18 Plan of Care End Date 06/28/18 Therapeutic Interventions Therapeutic Interventions Aquatic Therapy Gait Training Home Exercise Program Manual Therapy Neuromuscular Re-education Patient/Caregiver Education Self-Care/Home Management Therapeutic Activities Therapeutic Exercises Modalities Cold Pack/Ice Massage Electric Stimulation Ultrasound Next Visit Focus/Plan Next Note Type Treatment Note Next Visit Plan Progress closed chain ex as tolerated, encouraging gradual progression of activity without assistive device as tolerated. Patient to continue to wear boot until sees doctor in 2 weeks.
--- NOTE | 2018-05-02 17:05 | PT.OTN ---
Current Diagnoses Encounter for other orthopedic aftercare (05/02/18) Physical Therapy Treatment Note PT-OP-A Visit Information Start: 03/30/18 14:30 Freq: Status: Active Protocol: Document 05/02/18 16:56 [facility] (Rec: 05/02/18 17:05 [facility] [id number]) Out-Patient Physical Therapy Visit Information Visit Information Visit Type Aquatic Treatment Note Visit Start Time 11:00 Visit Stop Time 11:45 Total Visit Minutes 55 Visit Number 7 Number of DIRECTOR OF SOFTWARE DEVELOPMENT Visits 0 Precautions Precautions full weight-bearing in boot PT-OP-B Current Condition Start: 03/30/18 14:30 Freq: Status: Active Protocol: Document 03/30/18 14:30 [facility] (Rec: 03/30/18 15:21 [facility] [id number]) Current Condition History of Current Condition Onset Date 02/16/18 Current Complaints limited left LE function s/p left foot surgery History of Current Condition Underwent left talonavicular fusion and calcaneal autograft 02/16/18. Remained NWB for 6 wks. Now to start PT. x-ray yesterday showed good healing , patient reports less pain than before surgery. Order is for 50% WB left LE in CAM boot , then advance by 25% every 2 wks if pain controlled. When 100% in CAM boot ok to transition to normal shoe. Patient reports she sees physician 05/11/18 and he said not to use regular shoe until then. Initiate PT today, has not done exercises or weight on foot prior to today. Fell 2 weeks ago out of wheelchair hitting right anterior knee, c /o pain. Also fell 03/07/18 out of wheelchair. Uncertain if put weight on left LE to get up; not present. Needs gait training on stairs for home; rail on left going up, right going down. reports he feels patient has been putting too much weight on her foot walking with walker today. Of concern is patient's prior shoulder surgeries with concern over heavy use of walker, as well as anticipated need for surgery right foot with fear of increasing pain and dysfunction on that side with increased stress of asymmetrical weight-bearing. Prior Functional Status Baseline Function- ADL's Independent Baseline Function- Mobility Independent Baseline Function- Gait independent without device Current Functional Impairments (Reported) Functional Limitations- ADL's Mostly from wheelchair Functional Limitations- Mobility/Gait CAM boot, 50% WB left LE using FWW. Limited to transfers, very short distance household. Functional Limitations- Recreation/ unable Hobbies PT-OP-C Subjective Start: 03/30/18 14:30 Freq: Status: Active Protocol: Document 05/02/18 16:56 [facility] (Rec: 05/02/18 17:05 [facility] [id number]) OP-PT Subjective Patient Comments Patient Comments Reports persistent buttock pain, no pain in pool, worst with sitting and trying to sleep. Has been doing hip rotator, piriformis, hamstring stretching. Agreeable to see women's health PT as appears to be muscle more deep in pelvic girdle that is affected . Sleep also interrupted by shoulder pain which increased with use of assistive devices after surgery. PT-OP-F Manual Assessment Start: 03/30/18 14:30 Freq: Status: Active Protocol: Document 03/30/18 14:30 [facility] (Rec: 04/03/18 12:34 [facility] [id number]) Manual Assessments Other Manual Assessments Other Manual Assessments No increase in warmth left LE. Scar healing well with small area still open due per patient to abscess from stitch . PT-OP-G Mobility & Gait Start: 03/30/18 14:30 Freq: Status: Active Protocol: Document 03/30/18 14:30 [facility] (Rec: 04/03/18 12:34 [facility] [id number]) Stair Climbing Evaluation Evaluation Level of Assist On Stairs Contact Guard Assistance Devices Stair Climbing Assistive Devices Small Base Quad Cane Right Railing Technique/Endurance Stair Climbing Direction Ascend and Descend Stair Climbing Technique Step to Step Comments Stair Climbing Comments cues for 50% weight-bearing, sequencing PT-OP-K Range of Motion Start: 03/30/18 14:30 Freq: Status: Active Protocol: Document 03/30/18 14:30 [facility] (Rec: 04/03/18 12:34 [facility] [id number]) Knee Goniometric Range of Motion Knee Measured in Degrees gloria Knee ROM WFL Yes Ankle and Foot Goniometric Range of Motion Ankle and Foot Measured in Degrees Right Active Dorsiflexion with Knee Flexed 8 Plantarflexion 45 Inversion 30 Eversion 35 Left Ankle/Foot ROM WFL Yes Testing Position Supine Dorsiflexion with Knee Flexed 5 Dorsiflexion with Knee Extended 3 Plantarflexion 42 Inversion 10 Eversion 16 Ankle and Foot ROM Limitations ROM Limitations Soft Tissue Tightness Muscle Weakness PT-OP-M Strength Start: 03/30/18 14:30 Freq: Status: Active Protocol: Document 03/30/18 14:30 [facility] (Rec: 04/03/18 12:34 [facility] [id number]) Hip Strength Hip Manual Muscle Testing Right Reason Not Measured Pain Left Flexion (L2) 3+ Fair+ Abduction 3+ Fair+ External Rotation 3+ Fair+ Internal Rotation 3+ Fair+ Knee Strength Knee Manual Muscle Testing gloria Flexion (S2) 4 Good Extension (L3) 4 Good Ankle/Foot Strength Ankle and Foot Manual Muscle Testing Right Dorsiflexion (L4) 4 Good Plantarflexion (S1) 4 Good Inversion 4- Good- Eversion (S1) 4- Good- Left Reason Not Measured Orthopedic Precautions PT-OP-Q Treatments Start: 03/30/18 14:30 Freq: Status: Active Protocol: Document 04/21/18 10:27 [facility] (Rec: 04/21/18 11:14 [facility] [id number]) Cardio Equipment Recumbent Elliptical (Biodex) Duration (Minutes) 10 Resistance 1 Gym Equipment Shuttle Recovery Bilateral Squats Resistance 75 Shuttle Recovery Platform Stable Reps/Time 10x2 Therapeutic Exercises Supine Exercises heelslides with therapy balll Reps/Minutes 10x Sitting Exercises heel raise Reps/Minutes 10x ankle df,pf,inv,ev Side bilateral Resistance L1 TB Reps/Minutes 10x ankle and toe sequential df,ext,pf,flx Reps/Minutes 10x toe swap, toe piano Reps/Minutes 10x 4 Sitting Exercise Name BAPS board L3 Comments AP, side, circles 3 Sitting Exercise Name short foot Side bilateral Reps/Minutes 10x Gait Training Gait Activity level gait Device Used FWW Level of Assistance verbal cues Surface level Distance/Duration 75' Treatment Focus 50% weight-bearing Manual Therapy Treatment Soft Tissue Mobilization 1 Body Location left foot and ankle Mobilization Type Strumming Intensity/Depth gentle Body Position Hooklying PT-OP-R Modalities Start: 03/30/18 14:30 Freq: Status: Active Protocol: Document 04/21/18 10:27 [facility] (Rec: 04/21/18 16:25 [facility] [id number]) Hot Pack/Cold Pack Treatment Cold Pack Location left foot/ankle Patient Position Hooklying Treatment Duration (minutes) 10 Comments CRYOCUFF PT-OP-S Aquatic Treatment Start: 03/30/18 14:30 Freq: Status: Active Protocol: Document 05/02/18 16:56 [facility] (Rec: 05/02/18 17:05 [facility] [id number]) Aquatics Treatment Pool Entry/Exit Pool Entry/Exit Method Stairs Assistance Minimal Assistance Water Walking Marching Water Level Chest Level Level of Assistance Verbal Cues Sideways Water Level Chest Level Level of Assistance Verbal Cues forward Water Level Chest Level Level of Assistance Verbal Cues Comments arms in ER at sides for ant chest stretch Lower Extremity Exercises SLS Body Position Standing Water Level Chest Level Equipment Small Noodle Reps/Duration 2xs Lower Extremity Stretches DKTC, SKTC, free the hip Body Position Standing Water Level [place] Reps/Duration 2x Comments 2 wall hip add Body Position Standing Water Level Chest Level Equipment Small Noodle ITB Body Position Standing Water Level Chest Level Equipment Small Noodle hamstring Body Position Standing Water Level Chest Level Equipment Small Noodle [place] Activities [place] Activities Bicycle [place] Running Hip Abduction/Adduction Sit Kicks Other Activities Also bicycle with noUE's Equipment flotation belt (L) Duration 20 min PT-OP-T Assessment and Plan Start: 03/30/18 14:30 Freq: Status: Active Protocol: Document 05/02/18 16:56 [facility] (Rec: 05/02/18 17:05 [facility] [id number]) Physical Therapy Assessment Goals decreased ROM and strength left foot/ankle Impairment foot/ankle ROM and strength Detention Goal (LTG) Improve left ankle ROM and strength to WNL LTG Duration 3 months pain right foot/ankle Impairment 2/10 Hand Cooper Helper Goal (LTG) Patient able to progress with ther ex and gait and return to usual activities without pain increasing greater than 2/10 LTG Duration 3 months Antalgic gait Impairment antalgic gait, using FWW, 50% WB Short Term Goal (STG) Patient will progress to 100% WB left LE without an increase in pain STG Duration 4 wks Hand Cooper Helper Goal (LTG) Patient able to ambulate with minimal to no limp using appropriate assistive device as needed LTG Duration 3 months Foot and Ankle Ability Measure ADL's Impairment 31% Short Term Goal (STG) Improve score to at least 50% STG Duration 4 wks Hand Cooper Helper Goal (LTG) Improve score to at least 75% LTG Duration 3 months Lower extremity functional scale Impairment 30% Short Term Goal (STG) Improve score to at least 50% STG Duration 4 wks Hand Cooper Helper Goal (LTG) Improve lower extremity functional scale to at least 70% (goal progress) LTG Duration 3 months Physical Therapy Plan Frequency and Duration Frequency of Treatment 2x/Week Duration of Treatment 3 months Plan of Care Start Date 03/30/18 Plan of Care End Date 06/28/18 Therapeutic Interventions Therapeutic Interventions Aquatic Therapy Gait Training Home Exercise Program Manual Therapy Neuromuscular Re-education Patient/Caregiver Education Self-Care/Home Management Therapeutic Activities Therapeutic Exercises Modalities Cold Pack/Ice Massage Electric Stimulation Ultrasound Next Visit Focus/Plan Next Note Type Treatment Note Next Visit Plan Progress gait training, foot and ankle ROM and strengthening in both land and aquatic PT settings. Consult with women's health PT regarding persistent buttock pain which appears pelvic in nature, possibly involving obturator musculature.
--- NOTE | 2018-05-04 16:27 | PT.OPPOC ---
Current Diagnoses Pelvic and perineal pain (05/04/18) Encounter for other orthopedic aftercare (05/04/18) Provider Visit Care Team Role Provider Type Justin Gayle MD Family Provider Physician Primary Care Provider Specialty: Internal Medicine Address: [address] [place] [address], [id number] Email: Gerardo Trejo MD Attending Provider Non-Staff Specialty: Orthopedic Surgery Address: [address] [place] [address], [id number] Email: Plan Of Care PT-OP-T Assessment and Plan Start: 03/30/18 14:30 Freq: Status: Active Protocol: Document 05/04/18 14:30 [facility] (Rec: 05/04/18 16:19 [facility] [id number]) Physical Therapy Assessment Goals Two Impairment Sitting tolerance Stabilizer Operator Goal (LTG) Patsy will sit for 30 minutes with 2/10 pain or less LTG Duration 8 weeks One Impairment pelvic floor tightness Short Term Goal (STG) Patsy will be independent with a pelvic floor relaxation HEP. STG Duration 4 weeks Stabilizer Operator Goal (LTG) Patsy will report 2/10 pain or less with palpation of obturator internus. LTG Duration 8 weeks Assessment Summary Assessment Patsy was screened for pelvic floor involvement in her buttock pain today. The hip pain likely developed due to antalgic gait and having to use her walking boot for an extended period of time. Her obturator and levator ani were both tighter on the right than the left, and more painful. She was also quite weak in her pelvic floor. She will benefit from the addition of pelvic floor physical therapy to address these issues to assist in reducing her right hip pain that was exacerbated by her antalgic gait. Physical Therapy Plan Frequency and Duration Frequency of Treatment 3x/Week Duration of Treatment 10 weeks Plan of Care Start Date 05/04/18 Plan of Care End Date 07/13/18 Therapeutic Interventions Therapeutic Interventions Aquatic Therapy Gait Training Home Exercise Program Manual Therapy Neuromuscular Re-education Patient/Caregiver Education Self-Care/Home Management Therapeutic Activities Therapeutic Exercises Modalities Biofeedback Cold Pack/Ice Massage Electric Stimulation Ultrasound Next Visit Focus/Plan Next Note Type Treatment Note Next Visit Plan Progress gait mechanics, work on pelvic relaxation and opening hips. Progress pelvic floor/ hip stabilization as tolerated. Plan of Care Dates Plan of Care Start Date 05/04/18 Plan of Care End Date 07/13/18 Please Sign and Return: I have reviewed this Plan of Care and certify that the skilled therapy services above are required to meet the patient?s needs. Physician Signature Date Printed Name and Credentials Clinical Instructor Signature Printed Name and Credentials
--- NOTE | 2018-05-04 16:27 | PT.OTN ---
Current Diagnoses Pelvic and perineal pain (05/04/18) Encounter for other orthopedic aftercare (05/04/18) Physical Therapy Treatment Note PT-OP-A Visit Information Start: 03/30/18 14:30 Freq: Status: Active Protocol: Document 05/04/18 14:30 AMB (Rec: 05/04/18 16:19 AMB [email or web address]) Out-Patient Physical Therapy Visit Information Visit Information Visit Type Re-Evaluation Visit Start Time 14:30 Visit Stop Time 15:15 Total Visit Minutes 45 Visit Number 9 PT-OP-B Current Condition Start: 03/30/18 14:30 Freq: Status: Active Protocol: Document 03/30/18 14:30 SAK (Rec: 03/30/18 15:21 SAK [id number]) Current Condition History of Current Condition Onset Date 02/16/18 Current Complaints limited left LE function s/p left foot surgery History of Current Condition Underwent left talonavicular fusion and calcaneal autograft 02/16/18. Remained NWB for 6 wks. Now to start PT. x-ray yesterday showed good healing , patient reports less pain than before surgery. Order is for 50% WB left LE in CAM boot , then advance by 25% every 2 wks if pain controlled. When 100% in CAM boot ok to transition to normal shoe. Patient reports she sees physician 05/11/18 and he said not to use regular shoe until then. Initiate PT today, has not done exercises or weight on foot prior to today. Fell 2 weeks ago out of wheelchair hitting right anterior knee, c /o pain. Also fell 03/07/18 out of wheelchair. Uncertain if put weight on left LE to get up; not present. Needs gait training on stairs for home; rail on left going up, right going down. reports he feels patient has been putting too much weight on her foot walking with walker today. Of concern is patient's prior shoulder surgeries with concern over heavy use of walker, as well as anticipated need for surgery right foot with fear of increasing pain and dysfunction on that side with increased stress of asymmetrical weight-bearing. Prior Functional Status Baseline Function- ADL's Independent Baseline Function- Mobility Independent Baseline Function- Gait independent without device Current Functional Impairments (Reported) Functional Limitations- ADL's Mostly from wheelchair Functional Limitations- Mobility/Gait CAM boot, 50% WB left LE using FWW. Limited to transfers, very short distance household. Functional Limitations- Recreation/ unable Hobbies PT-OP-C Subjective Start: 03/30/18 14:30 Freq: Status: Active Protocol: Document 05/04/18 14:30 AMB (Rec: 05/04/18 16:19 AMB [email or web address]) OP-PT Subjective Patient Comments Patient Comments Patient reports right sided buttock pain has been present since before fusion surgery, worse with extended sitting in w/c. PT has been unable to reproduce pain externally. History of gluteus medius tear 5 years ago unsure if partial or complete. Total hysterectomy years ago, no children. Denies leaking, pain with urination, defection , not currently sexually active. Denies tailbone pain. Pain is worst with sitting and lying down. PT-OP-F Manual Assessment Start: 03/30/18 14:30 Freq: Status: Active Protocol: Document 03/30/18 14:30 SAK (Rec: 04/03/18 12:34 [facility] [id number]) Manual Assessments Other Manual Assessments Other Manual Assessments No increase in warmth left LE. Scar healing well with small area still open due per patient to abscess from stitch . PT-OP-G Mobility & Gait Start: 03/30/18 14:30 Freq: Status: Active Protocol: Document 03/30/18 14:30 SAK (Rec: 04/03/18 12:34 [facility] [id number]) Stair Climbing Evaluation Evaluation Level of Assist On Stairs Contact Guard Assistance Devices Stair Climbing Assistive Devices Small Base Quad Cane Right Railing Technique/Endurance Stair Climbing Direction Ascend and Descend Stair Climbing Technique Step to Step Comments Stair Climbing Comments cues for 50% weight-bearing, sequencing PT-OP-I Pelvic Floor Start: 03/30/18 14:30 Freq: Status: Active Protocol: Document 05/04/18 14:30 AMB (Rec: 05/04/18 16:24 AMB [email or web address]) Pelvic Floor Assessment Urine Other Leakage Causes denies leaks Bowel Other Bowel Symptoms denies any bowel symptoms Pelvic Clock Pelvic Clock 3-6 Tenderness Pelvic Clock 6-9 Hypertonic Tenderness Tightness Pelvic Clock 9-12 Hypertonic Tenderness Tightness Contraction Ability Voluntary Contraction Weak Manual Muscle Testing Left 0 Manual Muscle Testing Right 0 Manual Muscle Testing Anterior 1 Manual Muscle Testing Posterior 1 PT-OP-K Range of Motion Start: 03/30/18 14:30 Freq: Status: Active Protocol: Document 03/30/18 14:30 SAK (Rec: 04/03/18 12:34 SAK [id number]) Knee Goniometric Range of Motion Knee Measured in Degrees gloria Knee ROM WFL Yes Ankle and Foot Goniometric Range of Motion Ankle and Foot Measured in Degrees Right Active Dorsiflexion with Knee Flexed 8 Plantarflexion 45 Inversion 30 Eversion 35 Left Ankle/Foot ROM WFL Yes Testing Position Supine Dorsiflexion with Knee Flexed 5 Dorsiflexion with Knee Extended 3 Plantarflexion 42 Inversion 10 Eversion 16 Ankle and Foot ROM Limitations ROM Limitations Soft Tissue Tightness Muscle Weakness PT-OP-M Strength Start: 03/30/18 14:30 Freq: Status: Active Protocol: Document 03/30/18 14:30 SAK (Rec: 04/03/18 12:34 SAK [id number]) Hip Strength Hip Manual Muscle Testing Right Reason Not Measured Pain Left Flexion (L2) 3+ Fair+ Abduction 3+ Fair+ External Rotation 3+ Fair+ Internal Rotation 3+ Fair+ Knee Strength Knee Manual Muscle Testing gloria Flexion (S2) 4 Good Extension (L3) 4 Good Ankle/Foot Strength Ankle and Foot Manual Muscle Testing Right Dorsiflexion (L4) 4 Good Plantarflexion (S1) 4 Good Inversion 4- Good- Eversion (S1) 4- Good- Left Reason Not Measured Orthopedic Precautions PT-OP-Q Treatments Start: 03/30/18 14:30 Freq: Status: Active Protocol: Document 05/04/18 14:30 AMB (Rec: 05/04/18 16:19 AMB [email or web address]) Manual Therapy Treatment Soft Tissue Mobilization 2 Body Location R obterator internus, levator ani Mobilization Type Sustained Pressure Trigger Point Release Intensity/Depth Moderate Body Position Hooklying Comments dispensed size S dilator PT-OP-R Modalities Start: 03/30/18 14:30 Freq: Status: Active Protocol: Document 04/21/18 10:27 SAK (Rec: 04/21/18 16:25 SAK [id number]) Hot Pack/Cold Pack Treatment Cold Pack Location left foot/ankle Patient Position Hooklying Treatment Duration (minutes) 10 Comments CRYOCUFF PT-OP-S Aquatic Treatment Start: 03/30/18 14:30 Freq: Status: Active Protocol: Document 05/02/18 16:56 SAK (Rec: 05/02/18 17:05 SAK [id number]) Aquatics Treatment Pool Entry/Exit Pool Entry/Exit Method Stairs Assistance Minimal Assistance Water Walking Marching Water Level Chest Level Level of Assistance Verbal Cues Sideways Water Level Chest Level Level of Assistance Verbal Cues forward Water Level Chest Level Level of Assistance Verbal Cues Comments arms in ER at sides for ant chest stretch Lower Extremity Exercises SLS Body Position Standing Water Level Chest Level Equipment Small Noodle Reps/Duration 2xs Lower Extremity Stretches DKTC, SKTC, free the hip Body Position Standing Water Level [place] Reps/Duration 2x Comments 2 wall hip add Body Position Standing Water Level Chest Level Equipment Small Noodle ITB Body Position Standing Water Level Chest Level Equipment Small Noodle hamstring Body Position Standing Water Level Chest Level Equipment Small Noodle [place] Activities [place] Activities Bicycle [place] Running Hip Abduction/Adduction Sit Kicks Other Activities Also bicycle with noUE's Equipment flotation belt (L) Duration 20 min PT-OP-T Assessment and Plan Start: 03/30/18 14:30 Freq: Status: Active Protocol: Document 05/04/18 14:30 AMB (Rec: 05/04/18 16:19 AMB [email or web address]) Physical Therapy Assessment Goals Two Impairment Sitting tolerance Jail Goal (LTG) Patsy will sit for 30 minutes with 2/10 pain or less LTG Duration 8 weeks One Impairment pelvic floor tightness Short Term Goal (STG) Patsy will be independent with a pelvic floor relaxation HEP. STG Duration 4 weeks Jail Goal (LTG) Patsy will report 2/10 pain or less with palpation of obturator internus. LTG Duration 8 weeks Assessment Summary Assessment Patsy was screened for pelvic floor involvement in her buttock pain today. The hip pain likely developed due to antalgic gait and having to use her walking boot for an extended period of time. Her obturator and levator ani were both tighter on the right than the left, and more painful. She was also quite weak in her pelvic floor. She will benefit from the addition of pelvic floor physical therapy to address these issues to assist in reducing her right hip pain that was exacerbated by her antalgic gait. Physical Therapy Plan Frequency and Duration Frequency of Treatment 3x/Week Duration of Treatment 10 weeks Plan of Care Start Date 05/04/18 Plan of Care End Date 07/13/18 Therapeutic Interventions Therapeutic Interventions Aquatic Therapy Gait Training Home Exercise Program Manual Therapy Neuromuscular Re-education Patient/Caregiver Education Self-Care/Home Management Therapeutic Activities Therapeutic Exercises Modalities Biofeedback Cold Pack/Ice Massage Electric Stimulation Ultrasound Next Visit Focus/Plan Next Note Type Treatment Note Next Visit Plan Progress gait mechanics, work on pelvic relaxation and opening hips. Progress pelvic floor/ hip stabilization as tolerated.
--- NOTE | 2018-05-05 15:12 | PT.OTN ---
Current Diagnoses Encounter for other orthopedic aftercare (05/05/18) Physical Therapy Treatment Note PT-OP-A Visit Information Start: 03/30/18 14:30 Freq: Status: Active Protocol: Document 05/05/18 11:14 [facility] (Rec: 05/05/18 15:12 [facility] [id number]) Out-Patient Physical Therapy Visit Information Visit Information Visit Type Treatment Note Visit Start Time 11:15 Visit Stop Time 12:05 Total Visit Minutes 50 Visit Number 10 Precautions Precautions full weight-bearing in boot PT-OP-B Current Condition Start: 03/30/18 14:30 Freq: Status: Active Protocol: Document 03/30/18 14:30 [facility] (Rec: 03/30/18 15:21 [facility] [id number]) Current Condition History of Current Condition Onset Date 02/16/18 Current Complaints limited left LE function s/p left foot surgery History of Current Condition Underwent left talonavicular fusion and calcaneal autograft 02/16/18. Remained NWB for 6 wks. Now to start PT. x-ray yesterday showed good healing , patient reports less pain than before surgery. Order is for 50% WB left LE in CAM boot , then advance by 25% every 2 wks if pain controlled. When 100% in CAM boot ok to transition to normal shoe. Patient reports she sees physician 05/11/18 and he said not to use regular shoe until then. Initiate PT today, has not done exercises or weight on foot prior to today. Fell 2 weeks ago out of wheelchair hitting right anterior knee, c /o pain. Also fell 03/07/18 out of wheelchair. Uncertain if put weight on left LE to get up; not present. Needs gait training on stairs for home; rail on left going up, right going down. reports he feels patient has been putting too much weight on her foot walking with walker today. Of concern is patient's prior shoulder surgeries with concern over heavy use of walker, as well as anticipated need for surgery right foot with fear of increasing pain and dysfunction on that side with increased stress of asymmetrical weight-bearing. Prior Functional Status Baseline Function- ADL's Independent Baseline Function- Mobility Independent Baseline Function- Gait independent without device Current Functional Impairments (Reported) Functional Limitations- ADL's Mostly from wheelchair Functional Limitations- Mobility/Gait CAM boot, 50% WB left LE using FWW. Limited to transfers, very short distance household. Functional Limitations- Recreation/ unable Hobbies PT-OP-C Subjective Start: 03/30/18 14:30 Freq: Status: Active Protocol: Document 05/05/18 11:14 SAK (Rec: 05/05/18 15:12 SAK [id number]) OP-PT Subjective Patient Comments Patient Comments Patient report she felt decrease in buttock pain after being seen by women's health PT yesterday but then went to pool to exercise on her own and thinks she may have strained her hamstring on same side. PT-OP-F Manual Assessment Start: 03/30/18 14:30 Freq: Status: Active Protocol: Document 03/30/18 14:30 SAK (Rec: 04/03/18 12:34 SAK [id number]) Manual Assessments Other Manual Assessments Other Manual Assessments No increase in warmth left LE. Scar healing well with small area still open due per patient to abscess from stitch . PT-OP-G Mobility & Gait Start: 03/30/18 14:30 Freq: Status: Active Protocol: Document 03/30/18 14:30 SAK (Rec: 04/03/18 12:34 SAK [id number]) Stair Climbing Evaluation Evaluation Level of Assist On Stairs Contact Guard Assistance Devices Stair Climbing Assistive Devices Small Base Quad Cane Right Railing Technique/Endurance Stair Climbing Direction Ascend and Descend Stair Climbing Technique Step to Step Comments Stair Climbing Comments cues for 50% weight-bearing, sequencing PT-OP-I Pelvic Floor Start: 03/30/18 14:30 Freq: Status: Active Protocol: Document 05/04/18 14:30 AMB (Rec: 05/04/18 16:24 AMB [email or web address]) Pelvic Floor Assessment Urine Other Leakage Causes denies leaks Bowel Other Bowel Symptoms denies any bowel symptoms Pelvic Clock Pelvic Clock 3-6 Tenderness Pelvic Clock 6-9 Hypertonic Tenderness Tightness Pelvic Clock 9-12 Hypertonic Tenderness Tightness Contraction Ability Voluntary Contraction Weak Manual Muscle Testing Left 0 Manual Muscle Testing Right 0 Manual Muscle Testing Anterior 1 Manual Muscle Testing Posterior 1 PT-OP-K Range of Motion Start: 03/30/18 14:30 Freq: Status: Active Protocol: Document 03/30/18 14:30 SAK (Rec: 04/03/18 12:34 SAK [id number]) Knee Goniometric Range of Motion Knee Measured in Degrees gloria Knee ROM WFL Yes Ankle and Foot Goniometric Range of Motion Ankle and Foot Measured in Degrees Right Active Dorsiflexion with Knee Flexed 8 Plantarflexion 45 Inversion 30 Eversion 35 Left Ankle/Foot ROM WFL Yes Testing Position Supine Dorsiflexion with Knee Flexed 5 Dorsiflexion with Knee Extended 3 Plantarflexion 42 Inversion 10 Eversion 16 Ankle and Foot ROM Limitations ROM Limitations Soft Tissue Tightness Muscle Weakness PT-OP-M Strength Start: 03/30/18 14:30 Freq: Status: Active Protocol: Document 03/30/18 14:30 [facility] (Rec: 04/03/18 12:34 [facility] [id number]) Hip Strength Hip Manual Muscle Testing Right Reason Not Measured Pain Left Flexion (L2) 3+ Fair+ Abduction 3+ Fair+ External Rotation 3+ Fair+ Internal Rotation 3+ Fair+ Knee Strength Knee Manual Muscle Testing gloria Flexion (S2) 4 Good Extension (L3) 4 Good Ankle/Foot Strength Ankle and Foot Manual Muscle Testing Right Dorsiflexion (L4) 4 Good Plantarflexion (S1) 4 Good Inversion 4- Good- Eversion (S1) 4- Good- Left Reason Not Measured Orthopedic Precautions PT-OP-Q Treatments Start: 03/30/18 14:30 Freq: Status: Active Protocol: Document 05/05/18 11:14 [facility] (Rec: 05/05/18 15:12 [facility] [id number]) Therapeutic Exercises Sitting Exercises heel raise Reps/Minutes 10x ankle df,pf,inv,ev Side bilateral Resistance L2 TB Reps/Minutes 10x 4 Sitting Exercise Name BAPS board L3 Comments AP, side, circles Gait Training Gait Activity level gait Device Used no device Level of Assistance verbal cues Surface level Distance/Duration 75' Treatment Focus 100 weight-bearing Comments emphasis on smaller steps, gluteal and core activation PT-OP-R Modalities Start: 03/30/18 14:30 Freq: Status: Active Protocol: Document 05/05/18 11:14 [facility] (Rec: 05/05/18 15:12 [facility] [id number]) Hot Pack/Cold Pack Treatment Cold Pack Location left foot/ankle Patient Position Hooklying Treatment Duration (minutes) 10 Comments CRYOCUFF PT-OP-S Aquatic Treatment Start: 03/30/18 14:30 Freq: Status: Active Protocol: Document 05/02/18 16:56 [facility] (Rec: 05/02/18 17:05 [facility] [id number]) Aquatics Treatment Pool Entry/Exit Pool Entry/Exit Method Stairs Assistance Minimal Assistance Water Walking Marching Water Level Chest Level Level of Assistance Verbal Cues Sideways Water Level Chest Level Level of Assistance Verbal Cues forward Water Level Chest Level Level of Assistance Verbal Cues Comments arms in ER at sides for ant chest stretch Lower Extremity Exercises SLS Body Position Standing Water Level Chest Level Equipment Small Noodle Reps/Duration 2xs Lower Extremity Stretches DKTC, SKTC, free the hip Body Position Standing Water Level [place] Reps/Duration 2x Comments 2 wall hip add Body Position Standing Water Level Chest Level Equipment Small Noodle ITB Body Position Standing Water Level Chest Level Equipment Small Noodle hamstring Body Position Standing Water Level Chest Level Equipment Small Noodle [place] Activities [place] Activities Bicycle [place] Running Hip Abduction/Adduction Sit Kicks Other Activities Also bicycle with noUE's Equipment flotation belt (L) Duration 20 min PT-OP-T Assessment and Plan Start: 03/30/18 14:30 Freq: Status: Active Protocol: Document 05/05/18 11:14 [facility] (Rec: 05/05/18 15:12 [facility] [id number]) Physical Therapy Assessment Goals Two Impairment Sitting tolerance Home [employer] Cleaner Goal (LTG) Patsy will sit for 30 minutes with 2/10 pain or less LTG Duration 8 weeks One Impairment pelvic floor tightness Short Term Goal (STG) Patsy will be independent with a pelvic floor relaxation HEP. STG Duration 4 weeks Usp Goal (LTG) Patsy will report 2/10 pain or less with palpation of obturator internus. LTG Duration 8 weeks decreased ROM and strength left foot/ankle Impairment foot/ankle ROM and strength Usp Goal (LTG) Improve left ankle ROM and strength to WNL LTG Duration 3 months pain right foot/ankle Impairment 2/10 Usp Goal (LTG) Patient able to progress with ther ex and gait and return to usual activities without pain increasing greater than 2/10 LTG Duration 3 months Antalgic gait Impairment antalgic gait, using FWW, 50% WB Short Term Goal (STG) Patient will progress to 100% WB left LE without an increase in pain STG Duration 4 wks [employer]er Goal (LTG) Patient able to ambulate with minimal to no limp using appropriate assistive device as needed LTG Duration 3 months Foot and Ankle Ability Measure ADL's Impairment 31% Short Term Goal (STG) Improve score to at least 50% STG Duration 4 wks Usp Goal (LTG) Improve score to at least 75% LTG Duration 3 months Lower extremity functional scale Impairment 30% Short Term Goal (STG) Improve score to at least 50% STG Duration 4 wks Usp Goal (LTG) Improve lower extremity functional scale to at least 70% (goal progress) LTG Duration 3 months Assessment Summary Assessment Patsy having increased difficulty with gait today, signs and symptoms consistent with hamstring strain, treatment modified today with ice applied to right hamstring during cryocuff to left foot. Physical Therapy Plan Frequency and Duration Frequency of Treatment 3x/Week Duration of Treatment 10 weeks Plan of Care Start Date 05/04/18 Plan of Care End Date 07/13/18 Therapeutic Interventions Therapeutic Interventions Aquatic Therapy Gait Training Home Exercise Program Manual Therapy Neuromuscular Re-education Patient/Caregiver Education Self-Care/Home Management Therapeutic Activities Therapeutic Exercises Modalities Biofeedback Cold Pack/Ice Massage Electric Stimulation Ultrasound Next Visit Focus/Plan Next Note Type Treatment Note Next Visit Plan Continue PT per POC
--- NOTE | 2018-05-09 16:17 | PT.OTN ---
Current Diagnoses Encounter for other orthopedic aftercare (05/09/18) Physical Therapy Treatment Note PT-OP-A Visit Information Start: 03/30/18 14:30 Freq: Status: Active Protocol: Document 05/09/18 12:30 CLB (Rec: 05/09/18 16:17 CLB [email or web address]) Out-Patient Physical Therapy Visit Information Visit Information Visit Type Treatment Note Visit Start Time 12:30 Visit Stop Time 13:15 Total Visit Minutes 45 Visit Number 11 Number of [employer] PRINCIPAL Visits 1 PT-OP-B Current Condition Start: 03/30/18 14:30 Freq: Status: Active Protocol: Document 03/30/18 14:30 SAK (Rec: 03/30/18 15:21 SAK [id number]) Current Condition History of Current Condition Onset Date 02/16/18 Current Complaints limited left LE function s/p left foot surgery History of Current Condition Underwent left talonavicular fusion and calcaneal autograft 02/16/18. Remained NWB for 6 wks. Now to start PT. x-ray yesterday showed good healing , patient reports less pain than before surgery. Order is for 50% WB left LE in CAM boot , then advance by 25% every 2 wks if pain controlled. When 100% in CAM boot ok to transition to normal shoe. Patient reports she sees physician 05/11/18 and he said not to use regular shoe until then. Initiate PT today, has not done exercises or weight on foot prior to today. Fell 2 weeks ago out of wheelchair hitting right anterior knee, c /o pain. Also fell 03/07/18 out of wheelchair. Uncertain if put weight on left LE to get up; not present. Needs gait training on stairs for home; rail on left going up, right going down. reports he feels patient has been putting too much weight on her foot walking with walker today. Of concern is patient's prior shoulder surgeries with concern over heavy use of walker, as well as anticipated need for surgery right foot with fear of increasing pain and dysfunction on that side with increased stress of asymmetrical weight-bearing. Prior Functional Status Baseline Function- ADL's Independent Baseline Function- Mobility Independent Baseline Function- Gait independent without device Current Functional Impairments (Reported) Functional Limitations- ADL's Mostly from wheelchair Functional Limitations- Mobility/Gait CAM boot, 50% WB left LE using FWW. Limited to transfers, very short distance household. Functional Limitations- Recreation/ unable Hobbies PT-OP-C Subjective Start: 03/30/18 14:30 Freq: Status: Active Protocol: Document 05/09/18 12:30 CLB (Rec: 05/09/18 16:17 CLB [email or web address]) OP-PT Subjective Patient Comments Patient Comments Pt stated she fell when her boot got caught on the edge of the closet. She is having pain down her right posterior leg and buttocks. PT-OP-F Manual Assessment Start: 03/30/18 14:30 Freq: Status: Active Protocol: Document 03/30/18 14:30 SAK (Rec: 04/03/18 12:34 SAK [id number]) Manual Assessments Other Manual Assessments Other Manual Assessments No increase in warmth left LE. Scar healing well with small area still open due per patient to abscess from stitch . PT-OP-G Mobility & Gait Start: 03/30/18 14:30 Freq: Status: Active Protocol: Document 03/30/18 14:30 SAK (Rec: 04/03/18 12:34 SAK [id number]) Stair Climbing Evaluation Evaluation Level of Assist On Stairs Contact Guard Assistance Devices Stair Climbing Assistive Devices Small Base Quad Cane Right Railing Technique/Endurance Stair Climbing Direction Ascend and Descend Stair Climbing Technique Step to Step Comments Stair Climbing Comments cues for 50% weight-bearing, sequencing PT-OP-I Pelvic Floor Start: 03/30/18 14:30 Freq: Status: Active Protocol: Document 05/04/18 14:30 AMB (Rec: 05/04/18 16:24 AMB [email or web address]) Pelvic Floor Assessment Urine Other Leakage Causes denies leaks Bowel Other Bowel Symptoms denies any bowel symptoms Pelvic Clock Pelvic Clock 3-6 Tenderness Pelvic Clock 6-9 Hypertonic Tenderness Tightness Pelvic Clock 9-12 Hypertonic Tenderness Tightness Contraction Ability Voluntary Contraction Weak Manual Muscle Testing Left 0 Manual Muscle Testing Right 0 Manual Muscle Testing Anterior 1 Manual Muscle Testing Posterior 1 PT-OP-K Range of Motion Start: 03/30/18 14:30 Freq: Status: Active Protocol: Document 03/30/18 14:30 SAK (Rec: 04/03/18 12:34 SAK [id number]) Knee Goniometric Range of Motion Knee Measured in Degrees gloria Knee ROM WFL Yes Ankle and Foot Goniometric Range of Motion Ankle and Foot Measured in Degrees Right Active Dorsiflexion with Knee Flexed 8 Plantarflexion 45 Inversion 30 Eversion 35 Left Ankle/Foot ROM WFL Yes Testing Position Supine Dorsiflexion with Knee Flexed 5 Dorsiflexion with Knee Extended 3 Plantarflexion 42 Inversion 10 Eversion 16 Ankle and Foot ROM Limitations ROM Limitations Soft Tissue Tightness Muscle Weakness PT-OP-M Strength Start: 03/30/18 14:30 Freq: Status: Active Protocol: Document 03/30/18 14:30 SAK (Rec: 04/03/18 12:34 [facility] [id number]) Hip Strength Hip Manual Muscle Testing Right Reason Not Measured Pain Left Flexion (L2) 3+ Fair+ Abduction 3+ Fair+ External Rotation 3+ Fair+ Internal Rotation 3+ Fair+ Knee Strength Knee Manual Muscle Testing gloria Flexion (S2) 4 Good Extension (L3) 4 Good Ankle/Foot Strength Ankle and Foot Manual Muscle Testing Right Dorsiflexion (L4) 4 Good Plantarflexion (S1) 4 Good Inversion 4- Good- Eversion (S1) 4- Good- Left Reason Not Measured Orthopedic Precautions PT-OP-Q Treatments Start: 03/30/18 14:30 Freq: Status: Active Protocol: Document 05/05/18 11:14 SAK (Rec: 05/05/18 15:12 [facility] [id number]) Therapeutic Exercises Sitting Exercises heel raise Reps/Minutes 10x ankle df,pf,inv,ev Side bilateral Resistance L2 TB Reps/Minutes 10x 4 Sitting Exercise Name BAPS board L3 Comments AP, side, circles Gait Training Gait Activity level gait Device Used no device Level of Assistance verbal cues Surface level Distance/Duration 75' Treatment Focus 100 weight-bearing Comments emphasis on smaller steps, gluteal and core activation PT-OP-R Modalities Start: 03/30/18 14:30 Freq: Status: Active Protocol: Document 05/05/18 11:14 SAK (Rec: 05/05/18 15:12 [facility] [id number]) Hot Pack/Cold Pack Treatment Cold Pack Location left foot/ankle Patient Position Hooklying Treatment Duration (minutes) 10 Comments CRYOCUFF PT-OP-S Aquatic Treatment Start: 03/30/18 14:30 Freq: Status: Active Protocol: Document 05/09/18 12:30 CLB (Rec: 05/09/18 16:17 CLB [email or web address]) Aquatics Treatment Pool Entry/Exit Pool Entry/Exit Method Lift Assistance Standby Assistance Water Walking Marching Water Level Chest Level Level of Assistance Verbal Cues Sideways Water Level Chest Level Level of Assistance Verbal Cues forward Water Level Chest Level Level of Assistance Verbal Cues Comments arms in ER at sides for ant chest stretch Lower Extremity Exercises hip ab/ad Body Position Standing Water Level Neck Level Reps/Duration 10x Hip flex/ex Body Position Standing Water Level Neck Level Reps/Duration 10x squats Body Position Standing Water Level Chest Level Reps/Duration 10x toe raises Body Position Standing Water Level Neck Level SLS Body Position Standing Water Level Chest Level Equipment Small Noodle Reps/Duration 2xs heel raises Body Position Standing Water Level Chest Level Reps/Duration 10x Lower Extremity Stretches DKTC, SKTC, free the hip Body Position Standing Water Level [place] Reps/Duration 2x Comments 2 wall hip add Body Position Standing Water Level Chest Level Equipment Small Noodle ITB Body Position Standing Water Level Chest Level Equipment Small Noodle hamstring Body Position Standing Water Level Chest Level Equipment Small Noodle Sneads Activities Sneads Activities Bicycle [place] Hip Abduction/Adduction Equipment flotation belt (L) Duration 20 min PT-OP-T Assessment and Plan Start: 03/30/18 14:30 Freq: Status: Active Protocol: Document 05/09/18 12:30 CLB (Rec: 05/09/18 16:17 CLB [email or web address]) Physical Therapy Assessment Goals Two Impairment Sitting tolerance Detention Goal (LTG) Patsy will sit for 30 minutes with 2/10 pain or less LTG Duration 8 weeks One Impairment pelvic floor tightness Short Term Goal (STG) Patsy will be independent with a pelvic floor relaxation HEP. STG Duration 4 weeks Detention Goal (LTG) Patsy will report 2/10 pain or less with palpation of obturator internus. LTG Duration 8 weeks decreased ROM and strength left foot/ankle Impairment foot/ankle ROM and strength Marketing Technologist Goal (LTG) Improve left ankle ROM and strength to WNL LTG Duration 3 months pain right foot/ankle Impairment 2/10 Detention Goal (LTG) Patient able to progress with ther ex and gait and return to usual activities without pain increasing greater than 2/10 LTG Duration 3 months Antalgic gait Impairment antalgic gait, using FWW, 50% WB Short Term Goal (STG) Patient will progress to 100% WB left LE without an increase in pain STG Duration 4 wks Marketing Technologist Goal (LTG) Patient able to ambulate with minimal to no limp using appropriate assistive device as needed LTG Duration 3 months Foot and Ankle Ability Measure ADL's Impairment 31% Short Term Goal (STG) Improve score to at least 50% STG Duration 4 wks Marketing Technologist Goal (LTG) Improve score to at least 75% LTG Duration 3 months Lower extremity functional scale Impairment 30% Short Term Goal (STG) Improve score to at least 50% STG Duration 4 wks Marketing Technologist Goal (LTG) Improve lower extremity functional scale to at least 70% (goal progress) LTG Duration 3 months Assessment Summary Assessment Pt with decreased tolerance of aquatic therapy today due to recent fall. Pt was able perform all aquatic therapy when modified in a pain free range. Physical Therapy Plan Frequency and Duration Frequency of Treatment 3x/Week Duration of Treatment 10 weeks Plan of Care Start Date 05/04/18 Plan of Care End Date 07/13/18 Therapeutic Interventions Therapeutic Interventions Aquatic Therapy Gait Training Home Exercise Program Manual Therapy Neuromuscular Re-education Patient/Caregiver Education Self-Care/Home Management Therapeutic Activities Therapeutic Exercises Modalities Biofeedback Cold Pack/Ice Massage Electric Stimulation Ultrasound Next Visit Focus/Plan Next Note Type Treatment Note Next Visit Plan Continue PT per POC
--- NOTE | 2018-05-13 08:46 | PT.OTN ---
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 PT-OP-B Current Condition Start: 03/30/18 14:30 Freq: Status: Active Protocol: Document 03/30/18 14:30 SAK (Rec: 03/30/18 15:21 SAK [id number]) Current Condition History of Current Condition Onset Date 02/16/18 Current Complaints limited left LE function s/p left foot surgery History of Current Condition Underwent left talonavicular fusion and calcaneal autograft 02/16/18. Remained NWB for 6 wks. Now to start PT. x-ray yesterday showed good healing , patient reports less pain than before surgery. Order is for 50% WB left LE in CAM boot , then advance by 25% every 2 wks if pain controlled. When 100% in CAM boot ok to transition to normal shoe. Patient reports she sees physician 05/11/18 and he said not to use regular shoe until then. Initiate PT today, has not done exercises or weight on foot prior to today. Fell 2 weeks ago out of wheelchair hitting right anterior knee, c /o pain. Also fell 03/07/18 out of wheelchair. Uncertain if put weight on left LE to get up; not present. Needs gait training on stairs for home; rail on left going up, right going down. reports he feels patient has been putting too much weight on her foot walking with walker today. Of concern is patient's prior shoulder surgeries with concern over heavy use of walker, as well as anticipated need for surgery right foot with fear of increasing pain and dysfunction on that side with increased stress of asymmetrical weight-bearing. Prior Functional Status Baseline Function- ADL's Independent Baseline Function- Mobility Independent Baseline Function- Gait independent without device Current Functional Impairments (Reported) Functional Limitations- ADL's Mostly from wheelchair Functional Limitations- Mobility/Gait CAM boot, 50% WB left LE using FWW. Limited to transfers, very short distance household. Functional Limitations- Recreation/ unable Hobbies PT-OP-C Subjective Start: 03/30/18 14:30 Freq: Status: Active Protocol: Document 05/12/18 10:33 SAK (Rec: 05/12/18 11:17 SAK [id number]) OP-PT Subjective Patient Comments Patient Comments Approval from doctor to begin transition to use of shoe instead of boot. Patient reports small amount of household walking in shoe yesterday, mild arch aching. Wore boot to go out to dinner. PT-OP-F Manual Assessment Start: 03/30/18 14:30 Freq: Status: Active Protocol: Document 03/30/18 14:30 SAK (Rec: 04/03/18 12:34 SAK [id number]) Manual Assessments Other Manual Assessments Other Manual Assessments No increase in warmth left LE. Scar healing well with small area still open due per patient to abscess from stitch . PT-OP-G Mobility & Gait Start: 03/30/18 14:30 Freq: Status: Active Protocol: Document 03/30/18 14:30 SAK (Rec: 04/03/18 12:34 SAK [id number]) Stair Climbing Evaluation Evaluation Level of Assist On Stairs Contact Guard Assistance Devices Stair Climbing Assistive Devices Small Base Quad Cane Right Railing Technique/Endurance Stair Climbing Direction Ascend and Descend Stair Climbing Technique Step to Step Comments Stair Climbing Comments cues for 50% weight-bearing, sequencing PT-OP-I Pelvic Floor Start: 03/30/18 14:30 Freq: Status: Active Protocol: Document 05/04/18 14:30 AMB (Rec: 05/04/18 16:24 AMB [email or web address]) Pelvic Floor Assessment Urine Other Leakage Causes denies leaks Bowel Other Bowel Symptoms denies any bowel symptoms Pelvic Clock Pelvic Clock 3-6 Tenderness Pelvic Clock 6-9 Hypertonic Tenderness Tightness Pelvic Clock 9-12 Hypertonic Tenderness Tightness Contraction Ability Voluntary Contraction Weak Manual Muscle Testing Left 0 Manual Muscle Testing Right 0 Manual Muscle Testing Anterior 1 Manual Muscle Testing Posterior 1 PT-OP-K Range of Motion Start: 03/30/18 14:30 Freq: Status: Active Protocol: Document 03/30/18 14:30 SAK (Rec: 04/03/18 12:34 [facility] [id number]) Knee Goniometric Range of Motion Knee Measured in Degrees gloria Knee ROM WFL Yes Ankle and Foot Goniometric Range of Motion Ankle and Foot Measured in Degrees Right Active Dorsiflexion with Knee Flexed 8 Plantarflexion 45 Inversion 30 Eversion 35 Left Ankle/Foot ROM WFL Yes Testing Position Supine Dorsiflexion with Knee Flexed 5 Dorsiflexion with Knee Extended 3 Plantarflexion 42 Inversion 10 Eversion 16 Ankle and Foot ROM Limitations ROM Limitations Soft Tissue Tightness Muscle Weakness PT-OP-M Strength Start: 03/30/18 14:30 Freq: Status: Active Protocol: Document 03/30/18 14:30 [facility] (Rec: 04/03/18 12:34 [facility] [id number]) Hip Strength Hip Manual Muscle Testing Right Reason Not Measured Pain Left Flexion (L2) 3+ Fair+ Abduction 3+ Fair+ External Rotation 3+ Fair+ Internal Rotation 3+ Fair+ Knee Strength Knee Manual Muscle Testing gloria Flexion (S2) 4 Good Extension (L3) 4 Good Ankle/Foot Strength Ankle and Foot Manual Muscle Testing Right Dorsiflexion (L4) 4 Good Plantarflexion (S1) 4 Good Inversion 4- Good- Eversion (S1) 4- Good- Left Reason Not Measured Orthopedic Precautions PT-OP-Q Treatments Start: 03/30/18 14:30 Freq: Status: Active Protocol: Document 05/12/18 10:33 [facility] (Rec: 05/12/18 11:17 [facility] [id number]) Cardio Equipment Recumbent Elliptical (Biodex) Duration (Minutes) 10 Resistance 1 Gym Equipment Shuttle Recovery Unilateral Squats Resistance 25 right, 12 left Shuttle Recovery Platform Stable Bilateral Squats Resistance 50 Shuttle Recovery Platform Stable Reps/Time 10x2 Therapeutic Exercises Sitting Exercises ankle and toe sequential df,ext,pf,flx Reps/Minutes 10x toe swap, toe piano Reps/Minutes 10x 4 Sitting Exercise Name BAPS board L4 Comments AP, side, circles Standing Exercises weight-shifts Standing Exercise Name fwd/bck, side to side Reps/Minutes 2 min sidestepping Reps/Minutes 2 min Comments parallel bars Gait Training Gait Activity level gait Device Used no boot Level of Assistance verbal cues Surface level Distance/Duration 50' x 3 Treatment Focus 100 weight-bearing Comments emphasis on smaller steps, gluteal and core activation, heel-toe gait Manual Therapy Treatment Soft Tissue Mobilization 1 Body Location left foot and ankle, arch Mobilization Type Strumming Intensity/Depth gentle Body Position Hooklying Comments palpable tightness left arch Neuro Re-Education Treatment Balance Activities foam stand Details green (firm) then blue (med) Reps/Duration 2 min ea Self-Care/Home Management Treatment Education Patient Education Joint Protection Other Education increase time in shoe by 1 hour each day if tolerated. Wear boot for community gait. PT-OP-R Modalities Start: 03/30/18 14:30 Freq: Status: Active Protocol: Document 05/12/18 10:33 SAK (Rec: 05/13/18 08:46 SAK [id number]) Hot Pack/Cold Pack Treatment Cold Pack Location left foot/ankle Patient Position Hooklying Treatment Duration (minutes) 10 Comments CRYOCUFF PT-OP-S Aquatic Treatment Start: 03/30/18 14:30 Freq: Status: Active Protocol: Document 05/09/18 12:30 CLB (Rec: 05/09/18 16:17 CLB [email or web address]) Aquatics Treatment Pool Entry/Exit Pool Entry/Exit Method Lift Assistance Standby Assistance Water Walking Marching Water Level Chest Level Level of Assistance Verbal Cues Sideways Water Level Chest Level Level of Assistance Verbal Cues forward Water Level Chest Level Level of Assistance Verbal Cues Comments arms in ER at sides for ant chest stretch Lower Extremity Exercises hip ab/ad Body Position Standing Water Level Neck Level Reps/Duration 10x Hip flex/ex Body Position Standing Water Level Neck Level Reps/Duration 10x squats Body Position Standing Water Level Chest Level Reps/Duration 10x toe raises Body Position Standing Water Level Neck Level SLS Body Position Standing Water Level Chest Level Equipment Small Noodle Reps/Duration 2xs heel raises Body Position Standing Water Level Chest Level Reps/Duration 10x Lower Extremity Stretches DKTC, SKTC, free the hip Body Position Standing Water Level [place] Reps/Duration 2x Comments 2 wall hip add Body Position Standing Water Level Chest Level Equipment Small Noodle ITB Body Position Standing Water Level Chest Level Equipment Small Noodle hamstring Body Position Standing Water Level Chest Level Equipment Small Noodle [place] Activities [place] Activities Bicycle [place] Hip Abduction/Adduction Equipment flotation belt (L) Duration 20 min PT-OP-T Assessment and Plan Start: 03/30/18 14:30 Freq: Status: Active Protocol: Document 05/12/18 10:33 [facility] (Rec: 05/13/18 08:46 [facility] [id number]) Physical Therapy Assessment Goals Two Impairment Sitting tolerance Quality Control Technician Goal (LTG) Patsy will sit for 30 minutes with 2/10 pain or less LTG Duration 8 weeks One Impairment pelvic floor tightness Short Term Goal (STG) Patsy will be independent with a pelvic floor relaxation HEP. STG Duration 4 weeks Fpc Goal (LTG) Patsy will report 2/10 pain or less with palpation of obturator internus. LTG Duration 8 weeks decreased ROM and strength left foot/ankle Impairment foot/ankle ROM and strength Quality Control Technician Goal (LTG) Improve left ankle ROM and strength to WNL LTG Duration 3 months pain right foot/ankle Impairment 2/10 Quality Control Technician Goal (LTG) Patient able to progress with ther ex and gait and return to usual activities without pain increasing greater than 2/10 LTG Duration 3 months Antalgic gait Impairment antalgic gait, using FWW, 50% WB Short Term Goal (STG) Patient will progress to 100% WB left LE without an increase in pain STG Duration 4 wks Quality Control Technician Goal (LTG) Patient able to ambulate with minimal to no limp using appropriate assistive device as needed LTG Duration 3 months Foot and Ankle Ability Measure ADL's Impairment 31% Short Term Goal (STG) Improve score to at least 50% STG Duration 4 wks Quality Control Technician Goal (LTG) Improve score to at least 75% LTG Duration 3 months Lower extremity functional scale Impairment 30% Short Term Goal (STG) Improve score to at least 50% STG Duration 4 wks Quality Control Technician Goal (LTG) Improve lower extremity functional scale to at least 70% (goal progress) LTG Duration 3 months Assessment Summary Assessment No further pelvic pain after women's health visit, gait and all activities less painful. right hamstring still sore but improved. Minimal discomfort in foot with transition to shoe; only wearing shoe approx 2 hrs per day at this time. Demonstrates good understanding of need to progress use of shoe gradually and back off if experiences pain. Physical Therapy Plan Frequency and Duration Frequency of Treatment 3x/Week Duration of Treatment 10 weeks Plan of Care Start Date 05/04/18 Plan of Care End Date 07/13/18 Therapeutic Interventions Therapeutic Interventions Aquatic Therapy Gait Training Home Exercise Program Manual Therapy Neuromuscular Re-education Patient/Caregiver Education Self-Care/Home Management Therapeutic Activities Therapeutic Exercises Modalities Biofeedback Cold Pack/Ice Massage Electric Stimulation Ultrasound Next Visit Focus/Plan Next Note Type Treatment Note Next Visit Plan Continue PT per POC to help patient transition fully to gait in the home and community without use of boot; strengthening, balance and proprioception, gait training, pain management. At this time no further need to see women's health PT, but will continue to monitor as the pelvic pain impacts patient's functional mobility.
--- NOTE | 2018-05-16 16:56 | PT.OTN ---
Current Diagnoses Encounter for other orthopedic aftercare (05/16/18) Physical Therapy Treatment Note PT-OP-A Visit Information Start: 03/30/18 14:30 Freq: Status: Active Protocol: Document 05/16/18 09:00 [facility] (Rec: 05/16/18 16:56 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 PT-OP-B Current Condition Start: 03/30/18 14:30 Freq: Status: Active Protocol: Document 03/30/18 14:30 [facility] (Rec: 03/30/18 15:21 [facility] [id number]) Current Condition History of Current Condition Onset Date 02/16/18 Current Complaints limited left LE function s/p left foot surgery History of Current Condition Underwent left talonavicular fusion and calcaneal autograft 02/16/18. Remained NWB for 6 wks. Now to start PT. x-ray yesterday showed good healing , patient reports less pain than before surgery. Order is for 50% WB left LE in CAM boot , then advance by 25% every 2 wks if pain controlled. When 100% in CAM boot ok to transition to normal shoe. Patient reports she sees physician 05/11/18 and he said not to use regular shoe until then. Initiate PT today, has not done exercises or weight on foot prior to today. Fell 2 weeks ago out of wheelchair hitting right anterior knee, c /o pain. Also fell 03/07/18 out of wheelchair. Uncertain if put weight on left LE to get up; not present. Needs gait training on stairs for home; rail on left going up, right going down. reports he feels patient has been putting too much weight on her foot walking with walker today. Of concern is patient's prior shoulder surgeries with concern over heavy use of walker, as well as anticipated need for surgery right foot with fear of increasing pain and dysfunction on that side with increased stress of asymmetrical weight-bearing. Prior Functional Status Baseline Function- ADL's Independent Baseline Function- Mobility Independent Baseline Function- Gait independent without device Current Functional Impairments (Reported) Functional Limitations- ADL's Mostly from wheelchair Functional Limitations- Mobility/Gait CAM boot, 50% WB left LE using FWW. Limited to transfers, very short distance household. Functional Limitations- Recreation/ unable Hobbies PT-OP-C Subjective Start: 03/30/18 14:30 Freq: Status: Active Protocol: Document 05/16/18 09:00 [facility] (Rec: 05/16/18 16:56 SAK [id number]) OP-PT Subjective Patient Comments Patient Comments Reports aching bilateral arches, some increase in swelling in left foot on inside by incision. More time on feet over weekend including cooking a whole meal standing in kitchen wearing tennis shoe instead of boot. PT-OP-F Manual Assessment Start: 03/30/18 14:30 Freq: Status: Active Protocol: Document 03/30/18 14:30 SAK (Rec: 04/03/18 12:34 SAK [id number]) Manual Assessments Other Manual Assessments Other Manual Assessments No increase in warmth left LE. Scar healing well with small area still open due per patient to abscess from stitch . PT-OP-G Mobility & Gait Start: 03/30/18 14:30 Freq: Status: Active Protocol: Document 03/30/18 14:30 SAK (Rec: 04/03/18 12:34 SAK [id number]) Stair Climbing Evaluation Evaluation Level of Assist On Stairs Contact Guard Assistance Devices Stair Climbing Assistive Devices Small Base Quad Cane Right Railing Technique/Endurance Stair Climbing Direction Ascend and Descend Stair Climbing Technique Step to Step Comments Stair Climbing Comments cues for 50% weight-bearing, sequencing PT-OP-I Pelvic Floor Start: 03/30/18 14:30 Freq: Status: Active Protocol: Document 05/04/18 14:30 AMB (Rec: 05/04/18 16:24 AMB [id number]) Pelvic Floor Assessment Urine Other Leakage Causes denies leaks Bowel Other Bowel Symptoms denies any bowel symptoms Pelvic Clock Pelvic Clock 3-6 Tenderness Pelvic Clock 6-9 Hypertonic Tenderness Tightness Pelvic Clock 9-12 Hypertonic Tenderness Tightness Contraction Ability Voluntary Contraction Weak Manual Muscle Testing Left 0 Manual Muscle Testing Right 0 Manual Muscle Testing Anterior 1 Manual Muscle Testing Posterior 1 PT-OP-K Range of Motion Start: 03/30/18 14:30 Freq: Status: Active Protocol: Document 03/30/18 14:30 [facility]AK (Rec: 04/03/18 12:34 [facility] [id number]) Knee Goniometric Range of Motion Knee Measured in Degrees gloria Knee ROM WFL Yes Ankle and Foot Goniometric Range of Motion Ankle and Foot Measured in Degrees Right Active Dorsiflexion with Knee Flexed 8 Plantarflexion 45 Inversion 30 Eversion 35 Left Ankle/Foot ROM WFL Yes Testing Position Supine Dorsiflexion with Knee Flexed 5 Dorsiflexion with Knee Extended 3 Plantarflexion 42 Inversion 10 Eversion 16 Ankle and Foot ROM Limitations ROM Limitations Soft Tissue Tightness Muscle Weakness PT-OP-M Strength Start: 03/30/18 14:30 Freq: Status: Active Protocol: Document 03/30/18 14:30 [facility] (Rec: 04/03/18 12:34 [facility] [id number]) Hip Strength Hip Manual Muscle Testing Right Reason Not Measured Pain Left Flexion (L2) 3+ Fair+ Abduction 3+ Fair+ External Rotation 3+ Fair+ Internal Rotation 3+ Fair+ Knee Strength Knee Manual Muscle Testing gloria Flexion (S2) 4 Good Extension (L3) 4 Good Ankle/Foot Strength Ankle and Foot Manual Muscle Testing Right Dorsiflexion (L4) 4 Good Plantarflexion (S1) 4 Good Inversion 4- Good- Eversion (S1) 4- Good- Left Reason Not Measured Orthopedic Precautions PT-OP-Q Treatments Start: 03/30/18 14:30 Freq: Status: Active Protocol: Document 05/16/18 09:00 [facility] (Rec: 05/16/18 16:56 [facility] [id number]) Cardio Equipment Recumbent Elliptical (Biodex) Duration (Minutes) 10 Resistance 1 Gym Equipment Shuttle Recovery Bilateral Squats Resistance 37 Shuttle Recovery Platform Stable Reps/Time 10x2 Shuttle Balance chains green Details WBOS EO, EC, head turns Reps/Duration 5 min Therapeutic Exercises Sitting Exercises 4 Sitting Exercise Name BAPS board L4 Comments AP, side, circles Standing Exercises standing short foot Reps/Minutes 5x HC stretch Reps/Minutes 2x Gait Training Gait Activity level gait Device Used no boot Level of Assistance verbal cues Surface level Distance/Duration 50' x 2 Treatment Focus 100 weight-bearing Comments emphasis on smaller steps, gluteal and core activation, heel-toe gait Manual Therapy Treatment Soft Tissue Mobilization 1 Body Location left foot and ankle, arch Mobilization Type Manual Lymphatic Drainage Strumming Intensity/Depth gentle Body Position Hooklying Taping for edema reduction, arch support Body Location left foot Type of Tape kinesiotape Comments 2 fan strips for edema reduction, 2 I strips for arch support PT-OP-R Modalities Start: 03/30/18 14:30 Freq: Status: Active Protocol: Document 05/16/18 09:00 SAK (Rec: 05/16/18 16:56 SAK [id number]) Hot Pack/Cold Pack Treatment Cold Pack Location left foot/ankle Patient Position Hooklying Treatment Duration (minutes) 10 Comments CRYOCUFF PT-OP-S Aquatic Treatment Start: 03/30/18 14:30 Freq: Status: Active Protocol: Document 05/09/18 12:30 [facility] (Rec: 05/09/18 16:17 [facility]B [id number]) Aquatics Treatment Pool Entry/Exit Pool Entry/Exit Method Lift Assistance Standby Assistance Water Walking Marching Water Level Chest Level Level of Assistance Verbal Cues Sideways Water Level Chest Level Level of Assistance Verbal Cues forward Water Level Chest Level Level of Assistance Verbal Cues Comments arms in ER at sides for ant chest stretch Lower Extremity Exercises hip ab/ad Body Position Standing Water Level Neck Level Reps/Duration 10x Hip flex/ex Body Position Standing Water Level Neck Level Reps/Duration 10x squats Body Position Standing Water Level Chest Level Reps/Duration 10x toe raises Body Position Standing Water Level Neck Level SLS Body Position Standing Water Level Chest Level Equipment Small Noodle Reps/Duration 2xs heel raises Body Position Standing Water Level Chest Level Reps/Duration 10x Lower Extremity Stretches DKTC, SKTC, free the hip Body Position Standing Water Level [place] Reps/Duration 2x Comments 2 wall hip add Body Position Standing Water Level Chest Level Equipment Small Noodle ITB Body Position Standing Water Level Chest Level Equipment Small Noodle hamstring Body Position Standing Water Level Chest Level Equipment Small Noodle [place] Activities [place] Activities Bicycle [place] Hip Abduction/Adduction Equipment flotation belt (L) Duration 20 min PT-OP-T Assessment and Plan Start: 03/30/18 14:30 Freq: Status: Active Protocol: Document 05/16/18 09:00 SAK (Rec: 05/16/18 16:56 SAK [id number]) Physical Therapy Assessment Goals Two Impairment Sitting tolerance Intermediate Goal (LTG) Patsy will sit for 30 minutes with 2/10 pain or less LTG Duration 8 weeks One Impairment pelvic floor tightness Short Term Goal (STG) Patsy will be independent with a pelvic floor relaxation HEP. STG Duration 4 weeks Manager Physical Goal (LTG) Patsy will report 2/10 pain or less with palpation of obturator internus. LTG Duration 8 weeks decreased ROM and strength left foot/ankle Impairment foot/ankle ROM and strength Intermediate Goal (LTG) Improve left ankle ROM and strength to WNL LTG Duration 3 months pain right foot/ankle Impairment 2/10 Intermediate Goal (LTG) Patient able to progress with ther ex and gait and return to usual activities without pain increasing greater than 2/10 LTG Duration 3 months Antalgic gait Impairment antalgic gait, using FWW, 50% WB Short Term Goal (STG) Patient will progress to 100% WB left LE without an increase in pain STG Duration 4 wks Manager Physical Goal (LTG) Patient able to ambulate with minimal to no limp using appropriate assistive device as needed LTG Duration 3 months Foot and Ankle Ability Measure ADL's Impairment 31% Short Term Goal (STG) Improve score to at least 50% STG Duration 4 wks Intermediate Goal (LTG) Improve score to at least 75% LTG Duration 3 months Lower extremity functional scale Impairment 30% Short Term Goal (STG) Improve score to at least 50% STG Duration 4 wks Intermediate Goal (LTG) Improve lower extremity functional scale to at least 70% (goal progress) LTG Duration 3 months Assessment Summary Assessment some increased swelling medially left foot today, patient instructed to back off of weight-bearing, don't camelia off boot any further. Physical Therapy Plan Frequency and Duration Frequency of Treatment 3x/Week Duration of Treatment 10 weeks Plan of Care Start Date 05/04/18 Plan of Care End Date 07/13/18 Therapeutic Interventions Therapeutic Interventions Aquatic Therapy Gait Training Home Exercise Program Manual Therapy Neuromuscular Re-education Patient/Caregiver Education Self-Care/Home Management Therapeutic Activities Therapeutic Exercises Modalities Biofeedback Cold Pack/Ice Massage Electric Stimulation Ultrasound Next Visit Focus/Plan Next Note Type Treatment Note Next Visit Plan Continue PT per POC to help patient transition fully to gait in the home and community without use of boot; strengthening, balance and proprioception, gait training, pain management. At this time no further need to see women's health PT, but will continue to monitor as the pelvic pain impacts patient's functional mobility.
--- NOTE | 2018-05-19 13:32 | PT.OTN ---
Current Diagnoses Encounter for other orthopedic aftercare (05/19/18) Physical Therapy Treatment Note PT-OP-A Visit Information Start: 03/30/18 14:30 Freq: Status: Active Protocol: Document 05/19/18 10:46 [facility] (Rec: 05/19/18 11:17 [facility] [id number]) Out-Patient Physical Therapy Visit Information Visit Information Visit Type Treatment Note Visit Start Time 10:30 Visit Stop Time 11:25 Total Visit Minutes 55 Visit Number 13 Number of LAND APPRAISER Visits 0 Precautions Precautions WBAT, progress to use of shoe as tolerated. PT-OP-B Current Condition Start: 03/30/18 14:30 Freq: Status: Active Protocol: Document 03/30/18 14:30 SAK (Rec: 03/30/18 15:21 SAK [id number]) Current Condition History of Current Condition Onset Date 02/16/18 Current Complaints limited left LE function s/p left foot surgery History of Current Condition Underwent left talonavicular fusion and calcaneal autograft 02/16/18. Remained NWB for 6 wks. Now to start PT. x-ray yesterday showed good healing , patient reports less pain than before surgery. Order is for 50% WB left LE in CAM boot , then advance by 25% every 2 wks if pain controlled. When 100% in CAM boot ok to transition to normal shoe. Patient reports she sees physician 05/11/18 and he said not to use regular shoe until then. Initiate PT today, has not done exercises or weight on foot prior to today. Fell 2 weeks ago out of wheelchair hitting right anterior knee, c /o pain. Also fell 03/07/18 out of wheelchair. Uncertain if put weight on left LE to get up; not present. Needs gait training on stairs for home; rail on left going up, right going down. reports he feels patient has been putting too much weight on her foot walking with walker today. Of concern is patient's prior shoulder surgeries with concern over heavy use of walker, as well as anticipated need for surgery right foot with fear of increasing pain and dysfunction on that side with increased stress of asymmetrical weight-bearing. Prior Functional Status Baseline Function- ADL's Independent Baseline Function- Mobility Independent Baseline Function- Gait independent without device Current Functional Impairments (Reported) Functional Limitations- ADL's Mostly from wheelchair Functional Limitations- Mobility/Gait CAM boot, 50% WB left LE using FWW. Limited to transfers, very short distance household. Functional Limitations- Recreation/ unable Hobbies PT-OP-C Subjective Start: 03/30/18 14:30 Freq: Status: Active Protocol: Document 05/19/18 10:46 SAK (Rec: 05/19/18 11:17 SAK [id number]) OP-PT Subjective Patient Comments Patient Comments wore boot more to control pain and swelling and started wearing compression stockings, minor ache in foot but improved. PT-OP-F Manual Assessment Start: 03/30/18 14:30 Freq: Status: Active Protocol: Document 03/30/18 14:30 SAK (Rec: 04/03/18 12:34 SAK [id number]) Manual Assessments Other Manual Assessments Other Manual Assessments No increase in warmth left LE. Scar healing well with small area still open due per patient to abscess from stitch . PT-OP-G Mobility & Gait Start: 03/30/18 14:30 Freq: Status: Active Protocol: Document 03/30/18 14:30 SAK (Rec: 04/03/18 12:34 SAK [id number]) Stair Climbing Evaluation Evaluation Level of Assist On Stairs Contact Guard Assistance Devices Stair Climbing Assistive Devices Small Base Quad Cane Right Railing Technique/Endurance Stair Climbing Direction Ascend and Descend Stair Climbing Technique Step to Step Comments Stair Climbing Comments cues for 50% weight-bearing, sequencing PT-OP-I Pelvic Floor Start: 03/30/18 14:30 Freq: Status: Active Protocol: Document 05/04/18 14:30 AMB (Rec: 05/04/18 16:24 AMB [id number]) Pelvic Floor Assessment Urine Other Leakage Causes denies leaks Bowel Other Bowel Symptoms denies any bowel symptoms Pelvic Clock Pelvic Clock 3-6 Tenderness Pelvic Clock 6-9 Hypertonic Tenderness Tightness Pelvic Clock 9-12 Hypertonic Tenderness Tightness Contraction Ability Voluntary Contraction Weak Manual Muscle Testing Left 0 Manual Muscle Testing Right 0 Manual Muscle Testing Anterior 1 Manual Muscle Testing Posterior 1 PT-OP-K Range of Motion Start: 03/30/18 14:30 Freq: Status: Active Protocol: Document 03/30/18 14:30 SAK (Rec: 04/03/18 12:34 SAK [id number]) Knee Goniometric Range of Motion Knee Measured in Degrees gloria Knee ROM WFL Yes Ankle and Foot Goniometric Range of Motion Ankle and Foot Measured in Degrees Right Active Dorsiflexion with Knee Flexed 8 Plantarflexion 45 Inversion 30 Eversion 35 Left Ankle/Foot ROM WFL Yes Testing Position Supine Dorsiflexion with Knee Flexed 5 Dorsiflexion with Knee Extended 3 Plantarflexion 42 Inversion 10 Eversion 16 Ankle and Foot ROM Limitations ROM Limitations Soft Tissue Tightness Muscle Weakness PT-OP-M Strength Start: 03/30/18 14:30 Freq: Status: Active Protocol: Document 03/30/18 14:30 [facility] (Rec: 04/03/18 12:34 [facility] [id number]) Hip Strength Hip Manual Muscle Testing Right Reason Not Measured Pain Left Flexion (L2) 3+ Fair+ Abduction 3+ Fair+ External Rotation 3+ Fair+ Internal Rotation 3+ Fair+ Knee Strength Knee Manual Muscle Testing gloria Flexion (S2) 4 Good Extension (L3) 4 Good Ankle/Foot Strength Ankle and Foot Manual Muscle Testing Right Dorsiflexion (L4) 4 Good Plantarflexion (S1) 4 Good Inversion 4- Good- Eversion (S1) 4- Good- Left Reason Not Measured Orthopedic Precautions PT-OP-Q Treatments Start: 03/30/18 14:30 Freq: Status: Active Protocol: Document 05/19/18 10:46 [facility] (Rec: 05/19/18 11:17 [facility] [id number]) Cardio Equipment Recumbent Elliptical (Biodex) Duration (Minutes) 10 Resistance 2 Gym Equipment Shuttle Recovery Bilateral Squats Resistance 50 Shuttle Recovery Platform Stable Reps/Time 10x2 Shuttle Balance chains green Details WBOS, stride EO, EC, Reps/Duration 5 min Therapeutic Exercises Sitting Exercises HC stretch Reps/Minutes 1x30 Comments closed chain heel raise Reps/Minutes 10x Comments plus toe raise 4 Sitting Exercise Name BAPS board L4 Comments AP, side, circles Gait Training Gait Activity level gait Device Used no boot Level of Assistance verbal cues Surface level Distance/Duration 50' x 2 Comments emphasis on relaxed gait with decreased lateral sway, increased heel-toe weight shift Manual Therapy Treatment Soft Tissue Mobilization 1 Body Location left foot and ankle, arch Mobilization Type Manual Lymphatic Drainage Strumming Intensity/Depth gentle Body Position Hooklying Taping for edema reduction, arch support Body Location left foot Type of Tape kinesiotape Comments 2 fan strips for edema reduction, 2 I strips for arch support Neuro Re-Education Treatment Balance Activities tiltboard stand Details fwd/bck bal and wt shift, side /side bal both EO and EC PT-OP-R Modalities Start: 03/30/18 14:30 Freq: Status: Active Protocol: Document 05/19/18 10:46 SAK (Rec: 05/19/18 13:32 SAK [id number]) Hot Pack/Cold Pack Treatment Cold Pack Location left foot/ankle Patient Position Hooklying Treatment Duration (minutes) 10 Comments CRYOCUFF PT-OP-S Aquatic Treatment Start: 03/30/18 14:30 Freq: Status: Active Protocol: Document 05/09/18 12:30 [facility]B (Rec: 05/09/18 16:17 CLB [id number]) Aquatics Treatment Pool Entry/Exit Pool Entry/Exit Method Lift Assistance Standby Assistance Water Walking Marching Water Level Chest Level Level of Assistance Verbal Cues Sideways Water Level Chest Level Level of Assistance Verbal Cues forward Water Level Chest Level Level of Assistance Verbal Cues Comments arms in ER at sides for ant chest stretch Lower Extremity Exercises hip ab/ad Body Position Standing Water Level Neck Level Reps/Duration 10x Hip flex/ex Body Position Standing Water Level Neck Level Reps/Duration 10x squats Body Position Standing Water Level Chest Level Reps/Duration 10x toe raises Body Position Standing Water Level Neck Level SLS Body Position Standing Water Level Chest Level Equipment Small Noodle Reps/Duration 2xs heel raises Body Position Standing Water Level Chest Level Reps/Duration 10x Lower Extremity Stretches DKTC, SKTC, free the hip Body Position Standing Water Level [place] Reps/Duration 2x Comments 2 wall hip add Body Position Standing Water Level Chest Level Equipment Small Noodle ITB Body Position Standing Water Level Chest Level Equipment Small Noodle hamstring Body Position Standing Water Level Chest Level Equipment Small Noodle [place] Activities [place] Activities Bicycle [place] Hip Abduction/Adduction Equipment flotation belt (L) Duration 20 min PT-OP-T Assessment and Plan Start: 03/30/18 14:30 Freq: Status: Active Protocol: Document 05/19/18 10:46 [facility] (Rec: 05/19/18 13:32 SAK [id number]) Physical Therapy Assessment Goals Two Impairment Sitting tolerance Sales Review Clerk Goal (LTG) Patsy will sit for 30 minutes with 2/10 pain or less LTG Duration 8 weeks One Impairment pelvic floor tightness Short Term Goal (STG) Patsy will be independent with a pelvic floor relaxation HEP. STG Duration 4 weeks Group Home Goal (LTG) Patsy will report 2/10 pain or less with palpation of obturator internus. LTG Duration 8 weeks decreased ROM and strength left foot/ankle Impairment foot/ankle ROM and strength Sales Review Clerk Goal (LTG) Improve left ankle ROM and strength to WNL LTG Duration 3 months pain right foot/ankle Impairment 2/10 Group Home Goal (LTG) Patient able to progress with ther ex and gait and return to usual activities without pain increasing greater than 2/10 LTG Duration 3 months Antalgic gait Impairment antalgic gait, using FWW, 50% WB Short Term Goal (STG) Patient will progress to 100% WB left LE without an increase in pain STG Duration 4 wks Sales Review Clerk Goal (LTG) Patient able to ambulate with minimal to no limp using appropriate assistive device as needed LTG Duration 3 months Foot and Ankle Ability Measure ADL's Impairment 31% Short Term Goal (STG) Improve score to at least 50% STG Duration 4 wks Sales Review Clerk Goal (LTG) Improve score to at least 75% LTG Duration 3 months Lower extremity functional scale Impairment 30% Short Term Goal (STG) Improve score to at least 50% STG Duration 4 wks Sales Review Clerk Goal (LTG) Improve lower extremity functional scale to at least 70% (goal progress) LTG Duration 3 months Assessment Summary Assessment Much improved gait today after further instruction, heel and toes raises in sitting. Swelling some decreased today. Physical Therapy Plan Frequency and Duration Frequency of Treatment 3x/Week Duration of Treatment 10 weeks Plan of Care Start Date 05/04/18 Plan of Care End Date 07/13/18 Therapeutic Interventions Therapeutic Interventions Aquatic Therapy Gait Training Home Exercise Program Manual Therapy Neuromuscular Re-education Patient/Caregiver Education Self-Care/Home Management Therapeutic Activities Therapeutic Exercises Modalities Biofeedback Cold Pack/Ice Massage Electric Stimulation Ultrasound Next Visit Focus/Plan Next Note Type Treatment Note Next Visit Plan Increase standing strengthening, proprioception/ balance, and gait training as tolerated.
--- NOTE | 2018-05-23 14:41 | PT.OTN ---
Current Diagnoses Encounter for other orthopedic aftercare (05/19/18) Physical Therapy Treatment Note PT-OP-A Visit Information Start: 03/30/18 14:30 Freq: Status: Active Protocol: Document 05/23/18 10:15 JENNIFER (Rec: 05/23/18 14:41 LJ [email or web address]) Out-Patient Physical Therapy Visit Information Visit Information Visit Type Aquatic Treatment Note Visit Start Time 10:15 Visit Stop Time 11:00 Total Visit Minutes 45 Visit Number 15 Number of COSTUME SHOP COORDINATOR Visits 1 PT-OP-B Current Condition Start: 03/30/18 14:30 Freq: Status: Active Protocol: Document 03/30/18 14:30 SAK (Rec: 03/30/18 15:21 SAK [id number]) Current Condition History of Current Condition Onset Date 02/16/18 Current Complaints limited left LE function s/p left foot surgery History of Current Condition Underwent left talonavicular fusion and calcaneal autograft 02/16/18. Remained NWB for 6 wks. Now to start PT. x-ray yesterday showed good healing , patient reports less pain than before surgery. Order is for 50% WB left LE in CAM boot , then advance by 25% every 2 wks if pain controlled. When 100% in CAM boot ok to transition to normal shoe. Patient reports she sees physician 05/11/18 and he said not to use regular shoe until then. Initiate PT today, has not done exercises or weight on foot prior to today. Fell 2 weeks ago out of wheelchair hitting right anterior knee, c /o pain. Also fell 03/07/18 out of wheelchair. Uncertain if put weight on left LE to get up; not present. Needs gait training on stairs for home; rail on left going up, right going down. reports he feels patient has been putting too much weight on her foot walking with walker today. Of concern is patient's prior shoulder surgeries with concern over heavy use of walker, as well as anticipated need for surgery right foot with fear of increasing pain and dysfunction on that side with increased stress of asymmetrical weight-bearing. Prior Functional Status Baseline Function- ADL's Independent Baseline Function- Mobility Independent Baseline Function- Gait independent without device Current Functional Impairments (Reported) Functional Limitations- ADL's Mostly from wheelchair Functional Limitations- Mobility/Gait CAM boot, 50% WB left LE using FWW. Limited to transfers, very short distance household. Functional Limitations- Recreation/ unable Hobbies PT-OP-C Subjective Start: 03/30/18 14:30 Freq: Status: Active Protocol: Document 05/23/18 10:15 LJ (Rec: 05/23/18 14:41 LJ [id number]) OP-PT Subjective Patient Comments Patient Comments Pt reports her ankle and arches feel tight. Also Rhip has pain in front and back. PT-OP-F Manual Assessment Start: 03/30/18 14:30 Freq: Status: Active Protocol: Document 03/30/18 14:30 SAK (Rec: 04/03/18 12:34 SAK [id number]) Manual Assessments Other Manual Assessments Other Manual Assessments No increase in warmth left LE. Scar healing well with small area still open due per patient to abscess from stitch . PT-OP-G Mobility & Gait Start: 03/30/18 14:30 Freq: Status: Active Protocol: Document 03/30/18 14:30 SAK (Rec: 04/03/18 12:34 SAK [id number]) Stair Climbing Evaluation Evaluation Level of Assist On Stairs Contact Guard Assistance Devices Stair Climbing Assistive Devices Small Base Quad Cane Right Railing Technique/Endurance Stair Climbing Direction Ascend and Descend Stair Climbing Technique Step to Step Comments Stair Climbing Comments cues for 50% weight-bearing, sequencing PT-OP-I Pelvic Floor Start: 03/30/18 14:30 Freq: Status: Active Protocol: Document 05/04/18 14:30 AMB (Rec: 05/04/18 16:24 AMB [email or web address]) Pelvic Floor Assessment Urine Other Leakage Causes denies leaks Bowel Other Bowel Symptoms denies any bowel symptoms Pelvic Clock Pelvic Clock 3-6 Tenderness Pelvic Clock 6-9 Hypertonic Tenderness Tightness Pelvic Clock 9-12 Hypertonic Tenderness Tightness Contraction Ability Voluntary Contraction Weak Manual Muscle Testing Left 0 Manual Muscle Testing Right 0 Manual Muscle Testing Anterior 1 Manual Muscle Testing Posterior 1 PT-OP-K Range of Motion Start: 03/30/18 14:30 Freq: Status: Active Protocol: Document 03/30/18 14:30 SAK (Rec: 04/03/18 12:34 SAK [id number]) Knee Goniometric Range of Motion Knee Measured in Degrees gloria Knee ROM WFL Yes Ankle and Foot Goniometric Range of Motion Ankle and Foot Measured in Degrees Right Active Dorsiflexion with Knee Flexed 8 Plantarflexion 45 Inversion 30 Eversion 35 Left Ankle/Foot ROM WFL Yes Testing Position Supine Dorsiflexion with Knee Flexed 5 Dorsiflexion with Knee Extended 3 Plantarflexion 42 Inversion 10 Eversion 16 Ankle and Foot ROM Limitations ROM Limitations Soft Tissue Tightness Muscle Weakness PT-OP-M Strength Start: 03/30/18 14:30 Freq: Status: Active Protocol: Document 03/30/18 14:30 [facility] (Rec: 04/03/18 12:34 [facility] [id number]) Hip Strength Hip Manual Muscle Testing Right Reason Not Measured Pain Left Flexion (L2) 3+ Fair+ Abduction 3+ Fair+ External Rotation 3+ Fair+ Internal Rotation 3+ Fair+ Knee Strength Knee Manual Muscle Testing gloria Flexion (S2) 4 Good Extension (L3) 4 Good Ankle/Foot Strength Ankle and Foot Manual Muscle Testing Right Dorsiflexion (L4) 4 Good Plantarflexion (S1) 4 Good Inversion 4- Good- Eversion (S1) 4- Good- Left Reason Not Measured Orthopedic Precautions PT-OP-Q Treatments Start: 03/30/18 14:30 Freq: Status: Active Protocol: Document 05/19/18 10:46 [facility] (Rec: 05/19/18 11:17 [facility] [id number]) Cardio Equipment Recumbent Elliptical (Biodex) Duration (Minutes) 10 Resistance 2 Gym Equipment Shuttle Recovery Bilateral Squats Resistance 50 Shuttle Recovery Platform Stable Reps/Time 10x2 Shuttle Balance chains green Details WBOS, stride EO, EC, Reps/Duration 5 min Therapeutic Exercises Sitting Exercises HC stretch Reps/Minutes 1x30 Comments closed chain heel raise Reps/Minutes 10x Comments plus toe raise 4 Sitting Exercise Name BAPS board L4 Comments AP, side, circles Gait Training Gait Activity level gait Device Used no boot Level of Assistance verbal cues Surface level Distance/Duration 50' x 2 Comments emphasis on relaxed gait with decreased lateral sway, increased heel-toe weight shift Manual Therapy Treatment Soft Tissue Mobilization 1 Body Location left foot and ankle, arch Mobilization Type Manual Lymphatic Drainage Strumming Intensity/Depth gentle Body Position Hooklying Taping for edema reduction, arch support Body Location left foot Type of Tape kinesiotape Comments 2 fan strips for edema reduction, 2 I strips for arch support Neuro Re-Education Treatment Balance Activities tiltboard stand Details fwd/bck bal and wt shift, side /side bal both EO and EC PT-OP-R Modalities Start: 03/30/18 14:30 Freq: Status: Active Protocol: Document 05/19/18 10:46 SAK (Rec: 05/19/18 13:32 SAK [id number]) Hot Pack/Cold Pack Treatment Cold Pack Location left foot/ankle Patient Position Hooklying Treatment Duration (minutes) 10 Comments CRYOCUFF PT-OP-S Aquatic Treatment Start: 03/30/18 14:30 Freq: Status: Active Protocol: Document 05/23/18 10:15 LJ (Rec: 05/23/18 14:41 LJ [email or web address]) Aquatics Treatment Pool Entry/Exit Pool Entry/Exit Method Stairs Assistance Independent Water Walking Monster Walk Water Level Chest Level Walking Equipment Resistance Fins Level of Assistance Verbal Cues Marching Water Level Chest Level Walking Equipment Resistance Fins Level of Assistance Verbal Cues Sideways Water Level Chest Level Walking Equipment Resistance Fins Level of Assistance Verbal Cues forward Water Level Chest Level Walking Equipment Resistance Fins Level of Assistance Verbal Cues Comments arms in ER at sides for ant chest stretch Lower Extremity Exercises hip ab/ad Body Position Standing Water Level Neck Level Reps/Duration 10x Hip flex/ex Body Position Standing Water Level Neck Level Reps/Duration 10x toe raises Body Position Standing Water Level Chest Level Reps/Duration 10 each dir heel raises Body Position Standing Water Level Chest Level Reps/Duration 10x Lower Extremity Stretches hip flexors Body Position Standing Reps/Duration 2x 30 gastroc/soleus Body Position Standing Water Level Waist Level Reps/Duration 2x 30 sec HS Details foot on wall Reps/Duration 2x 30 sec toe in , neutral and toe out [place] Activities [place] Activities Bicycle Cross [place] Hip Abduction/Adduction Equipment flotation belt (L) Duration 15 min PT-OP-T Assessment and Plan Start: 03/30/18 14:30 Freq: Status: Active Protocol: Document 05/23/18 10:15 JENNIFER (Rec: 05/23/18 14:41 LJ [email or web address]) Physical Therapy Assessment Goals Two Impairment Sitting tolerance Admissions Manager Rn Goal (LTG) Patsy will sit for 30 minutes with 2/10 pain or less LTG Duration 8 weeks One Impairment pelvic floor tightness Short Term Goal (STG) Patsy will be independent with a pelvic floor relaxation HEP. STG Duration 4 weeks Admissions Manager Rn Goal (LTG) Patsy will report 2/10 pain or less with palpation of obturator internus. LTG Duration 8 weeks decreased ROM and strength left foot/ankle Impairment foot/ankle ROM and strength Group Home Goal (LTG) Improve left ankle ROM and strength to WNL LTG Duration 3 months pain right foot/ankle Impairment 2/10 Group Home Goal (LTG) Patient able to progress with ther ex and gait and return to usual activities without pain increasing greater than 2/10 LTG Duration 3 months Antalgic gait Impairment antalgic gait, using FWW, 50% WB Short Term Goal (STG) Patient will progress to 100% WB left LE without an increase in pain STG Duration 4 wks Group Home Goal (LTG) Patient able to ambulate with minimal to no limp using appropriate assistive device as needed LTG Duration 3 months Foot and Ankle Ability Measure ADL's Impairment 31% Short Term Goal (STG) Improve score to at least 50% STG Duration 4 wks Group Home Goal (LTG) Improve score to at least 75% LTG Duration 3 months Lower extremity functional scale Impairment 30% Short Term Goal (STG) Improve score to at least 50% STG Duration 4 wks Group Home Goal (LTG) Improve lower extremity functional scale to at least 70% (goal progress) LTG Duration 3 months Assessment Summary Assessment Pt reported feeling relief after stretching exercises prior to deep water exercises. Tolerated use of sm fresistance fins in shallow water. Physical Therapy Plan Frequency and Duration Frequency of Treatment 3x/Week Duration of Treatment 10 weeks Plan of Care Start Date 05/04/18 Plan of Care End Date 07/13/18 Therapeutic Interventions Therapeutic Interventions Aquatic Therapy Gait Training Home Exercise Program Manual Therapy Neuromuscular Re-education Patient/Caregiver Education Self-Care/Home Management Therapeutic Activities Therapeutic Exercises Modalities Biofeedback Cold Pack/Ice Massage Electric Stimulation Ultrasound Next Visit Focus/Plan Next Note Type Treatment Note Next Visit Plan Increase standing strengthening, proprioception/ balance, and gait training as tolerated. Add resistance fins during shallow water exercises
--- NOTE | 2018-05-26 11:33 | PT.OTN ---
Current Diagnoses Encounter for other orthopedic aftercare (05/26/18) Physical Therapy Treatment Note PT-OP-A Visit Information Start: 03/30/18 14:30 Freq: Status: Active Protocol: Document 05/26/18 10:38 SAK (Rec: 05/26/18 11:33 SAK [id number]) Out-Patient Physical Therapy Visit Information Visit Information Visit Type Aquatic Treatment Note Visit Start Time 10:30 Visit Stop Time 10:25 Total Visit Minutes 55 Visit Number 15 Number of SUPERVISOR MALT HOUSE Visits 1 PT-OP-B Current Condition Start: 03/30/18 14:30 Freq: Status: Active Protocol: Document 03/30/18 14:30 SAK (Rec: 03/30/18 15:21 SAK [id number]) Current Condition History of Current Condition Onset Date 02/16/18 Current Complaints limited left LE function s/p left foot surgery History of Current Condition Underwent left talonavicular fusion and calcaneal autograft 02/16/18. Remained NWB for 6 wks. Now to start PT. x-ray yesterday showed good healing , patient reports less pain than before surgery. Order is for 50% WB left LE in CAM boot , then advance by 25% every 2 wks if pain controlled. When 100% in CAM boot ok to transition to normal shoe. Patient reports she sees physician 05/11/18 and he said not to use regular shoe until then. Initiate PT today, has not done exercises or weight on foot prior to today. Fell 2 weeks ago out of wheelchair hitting right anterior knee, c /o pain. Also fell 03/07/18 out of wheelchair. Uncertain if put weight on left LE to get up; not present. Needs gait training on stairs for home; rail on left going up, right going down. reports he feels patient has been putting too much weight on her foot walking with walker today. Of concern is patient's prior shoulder surgeries with concern over heavy use of walker, as well as anticipated need for surgery right foot with fear of increasing pain and dysfunction on that side with increased stress of asymmetrical weight-bearing. Prior Functional Status Baseline Function- ADL's Independent Baseline Function- Mobility Independent Baseline Function- Gait independent without device Current Functional Impairments (Reported) Functional Limitations- ADL's Mostly from wheelchair Functional Limitations- Mobility/Gait CAM boot, 50% WB left LE using FWW. Limited to transfers, very short distance household. Functional Limitations- Recreation/ unable Hobbies PT-OP-C Subjective Start: 03/30/18 14:30 Freq: Status: Active Protocol: Document 05/26/18 10:38 SAK (Rec: 05/26/18 11:33 SAK [id number]) OP-PT Subjective Patient Comments Patient Comments Reports increased pain after last session in pool, felt overdid some though liked exercises. Brought arch stretching device developed by prior physician in [place] to discuss and try with PT help. PT-OP-F Manual Assessment Start: 03/30/18 14:30 Freq: Status: Active Protocol: Document 03/30/18 14:30 SAK (Rec: 04/03/18 12:34 SAK [id number]) Manual Assessments Other Manual Assessments Other Manual Assessments No increase in warmth left LE. Scar healing well with small area still open due per patient to abscess from stitch . PT-OP-G Mobility & Gait Start: 03/30/18 14:30 Freq: Status: Active Protocol: Document 03/30/18 14:30 SAK (Rec: 04/03/18 12:34 SAK [id number]) Stair Climbing Evaluation Evaluation Level of Assist On Stairs Contact Guard Assistance Devices Stair Climbing Assistive Devices Small Base Quad Cane Right Railing Technique/Endurance Stair Climbing Direction Ascend and Descend Stair Climbing Technique Step to Step Comments Stair Climbing Comments cues for 50% weight-bearing, sequencing PT-OP-I Pelvic Floor Start: 03/30/18 14:30 Freq: Status: Active Protocol: Document 05/04/18 14:30 AMB (Rec: 05/04/18 16:24 AMB [email or web address]) Pelvic Floor Assessment Urine Other Leakage Causes denies leaks Bowel Other Bowel Symptoms denies any bowel symptoms Pelvic Clock Pelvic Clock 3-6 Tenderness Pelvic Clock 6-9 Hypertonic Tenderness Tightness Pelvic Clock 9-12 Hypertonic Tenderness Tightness Contraction Ability Voluntary Contraction Weak Manual Muscle Testing Left 0 Manual Muscle Testing Right 0 Manual Muscle Testing Anterior 1 Manual Muscle Testing Posterior 1 PT-OP-K Range of Motion Start: 03/30/18 14:30 Freq: Status: Active Protocol: Document 03/30/18 14:30 SAK (Rec: 04/03/18 12:34 SAK [id number]) Knee Goniometric Range of Motion Knee Measured in Degrees gloria Knee ROM WFL Yes Ankle and Foot Goniometric Range of Motion Ankle and Foot Measured in Degrees Right Active Dorsiflexion with Knee Flexed 8 Plantarflexion 45 Inversion 30 Eversion 35 Left Ankle/Foot ROM WFL Yes Testing Position Supine Dorsiflexion with Knee Flexed 5 Dorsiflexion with Knee Extended 3 Plantarflexion 42 Inversion 10 Eversion 16 Ankle and Foot ROM Limitations ROM Limitations Soft Tissue Tightness Muscle Weakness PT-OP-M Strength Start: 03/30/18 14:30 Freq: Status: Active Protocol: Document 03/30/18 14:30 [facility] (Rec: 04/03/18 12:34 [facility] [id number]) Hip Strength Hip Manual Muscle Testing Right Reason Not Measured Pain Left Flexion (L2) 3+ Fair+ Abduction 3+ Fair+ External Rotation 3+ Fair+ Internal Rotation 3+ Fair+ Knee Strength Knee Manual Muscle Testing gloria Flexion (S2) 4 Good Extension (L3) 4 Good Ankle/Foot Strength Ankle and Foot Manual Muscle Testing Right Dorsiflexion (L4) 4 Good Plantarflexion (S1) 4 Good Inversion 4- Good- Eversion (S1) 4- Good- Left Reason Not Measured Orthopedic Precautions PT-OP-Q Treatments Start: 03/30/18 14:30 Freq: Status: Active Protocol: Document 05/26/18 10:38 [facility] (Rec: 05/26/18 11:33 [facility] [id number]) Cardio Equipment Recumbent Elliptical (Biodex) Duration (Minutes) 10 Resistance 2 Therapeutic Exercises Standing Exercises HC/arch stretch Equipment Used stretch box Reps/Minutes 2x30 Comments at wall Gait Training Gait Activity level gait Device Used no boot Level of Assistance verbal cues Surface level Distance/Duration 50' x 1, 100' x 1 Comments emphasis on relaxed gait with decreased lateral sway, increased heel-toe weight , gluteal activation during stance 2 Description stairs Device Used railing Level of Assistance verbal cues Treatment Focus alternating pattern, glueal activation Comments 4 stairs Manual Therapy Treatment Soft Tissue Mobilization 1 Body Location left foot and ankle, arch Mobilization Type Myofascial Release Rolling Strumming Intensity/Depth gentle Body Position Hooklying Taping for edema reduction, arch support Body Location left foot Type of Tape kinesiotape Comments 2 fan strips for edema reduction, 2 I strips for arch support Neuro Re-Education Treatment Balance Activities tandem stand Reps/Duration 2x 30 [place] sway Reps/Duration 1 min PT-OP-R Modalities Start: 03/30/18 14:30 Freq: Status: Active Protocol: Document 05/26/18 10:38 SAK (Rec: 05/26/18 11:33 SAK [id number]) Hot Pack/Cold Pack Treatment Cold Pack Location left foot/ankle Patient Position Hooklying Treatment Duration (minutes) 10 Comments CRYOCUFF PT-OP-S Aquatic Treatment Start: 03/30/18 14:30 Freq: Status: Active Protocol: Document 05/23/18 10:15 LJ (Rec: 05/23/18 14:41 LJ [email or web address]) Aquatics Treatment Pool Entry/Exit Pool Entry/Exit Method Stairs Assistance Independent Water Walking Monster Walk Water Level Chest Level Walking Equipment Resistance Fins Level of Assistance Verbal Cues Marching Water Level Chest Level Walking Equipment Resistance Fins Level of Assistance Verbal Cues Sideways Water Level Chest Level Walking Equipment Resistance Fins Level of Assistance Verbal Cues forward Water Level Chest Level Walking Equipment Resistance Fins Level of Assistance Verbal Cues Comments arms in ER at sides for ant chest stretch Lower Extremity Exercises hip ab/ad Body Position Standing Water Level Neck Level Reps/Duration 10x Hip flex/ex Body Position Standing Water Level Neck Level Reps/Duration 10x toe raises Body Position Standing Water Level Chest Level Reps/Duration 10 each dir heel raises Body Position Standing Water Level Chest Level Reps/Duration 10x Lower Extremity Stretches hip flexors Body Position Standing Reps/Duration 2x 30 gastroc/soleus Body Position Standing Water Level Waist Level Reps/Duration 2x 30 sec HS Details foot on wall Reps/Duration 2x 30 sec toe in , neutral and toe out [place] Activities [place] Activities Bicycle Cross [place] Hip Abduction/Adduction Equipment flotation belt (L) Duration 15 min PT-OP-T Assessment and Plan Start: 03/30/18 14:30 Freq: Status: Active Protocol: Document 05/26/18 10:38 SAK (Rec: 05/26/18 11:33 SAK [id number]) Physical Therapy Assessment Goals Two Impairment Sitting tolerance Mcc Goal (LTG) Patsy will sit for 30 minutes with 2/10 pain or less LTG Duration 8 weeks One Impairment pelvic floor tightness Short Term Goal (STG) Patsy will be independent with a pelvic floor relaxation HEP. STG Duration 4 weeks Enrobing Machine Corder Goal (LTG) Patsy will report 2/10 pain or less with palpation of obturator internus. LTG Duration 8 weeks decreased ROM and strength left foot/ankle Impairment foot/ankle ROM and strength Enrobing Machine Corder Goal (LTG) Improve left ankle ROM and strength to WNL LTG Duration 3 months pain right foot/ankle Impairment 2/10 Mcc Goal (LTG) Patient able to progress with ther ex and gait and return to usual activities without pain increasing greater than 2/10 LTG Duration 3 months Antalgic gait Impairment antalgic gait, using FWW, 50% WB Short Term Goal (STG) Patient will progress to 100% WB left LE without an increase in pain STG Duration 4 wks Enrobing Machine Corder Goal (LTG) Patient able to ambulate with minimal to no limp using appropriate assistive device as needed LTG Duration 3 months Foot and Ankle Ability Measure ADL's Impairment 31% Short Term Goal (STG) Improve score to at least 50% STG Duration 4 wks Mcc Goal (LTG) Improve score to at least 75% LTG Duration 3 months Lower extremity functional scale Impairment 30% Short Term Goal (STG) Improve score to at least 50% STG Duration 4 wks Enrobing Machine Corder Goal (LTG) Improve lower extremity functional scale to at least 70% (goal progress) LTG Duration 3 months Assessment Summary Assessment Use of stretching device able to be done safely, ok for patient to use at home. Improving gait, and able to progress to gait on 4 stairs Physical Therapy Plan Frequency and Duration Frequency of Treatment 3x/Week Duration of Treatment 10 weeks Plan of Care Start Date 05/04/18 Plan of Care End Date 07/13/18 Therapeutic Interventions Therapeutic Interventions Aquatic Therapy Gait Training Home Exercise Program Manual Therapy Neuromuscular Re-education Patient/Caregiver Education Self-Care/Home Management Therapeutic Activities Therapeutic Exercises Modalities Biofeedback Cold Pack/Ice Massage Electric Stimulation Ultrasound Next Visit Focus/Plan Next Note Type Treatment Note Next Visit Plan Increase standing strengthening, proprioception/ balance, and gait training as tolerated. Add resistance fins during shallow water exercises
--- NOTE | 2018-05-30 15:08 | PT.OTN ---
Current Diagnoses Encounter for other orthopedic aftercare (05/26/18) Physical Therapy Treatment Note PT-OP-A Visit Information Start: 03/30/18 14:30 Freq: Status: Active Protocol: Document 05/30/18 11:00 LJ (Rec: 05/30/18 15:08 LJ [email or web address]) Out-Patient Physical Therapy Visit Information Visit Information Visit Type Aquatic Treatment Note Visit Start Time 11:00 Visit Stop Time 11:45 Total Visit Minutes 45 Visit Number 17 Number of COMPUTER BUILDER Visits 1 PT-OP-B Current Condition Start: 03/30/18 14:30 Freq: Status: Active Protocol: Document 03/30/18 14:30 SAK (Rec: 03/30/18 15:21 SAK [id number]) Current Condition History of Current Condition Onset Date 02/16/18 Current Complaints limited left LE function s/p left foot surgery History of Current Condition Underwent left talonavicular fusion and calcaneal autograft 02/16/18. Remained NWB for 6 wks. Now to start PT. x-ray yesterday showed good healing , patient reports less pain than before surgery. Order is for 50% WB left LE in CAM boot , then advance by 25% every 2 wks if pain controlled. When 100% in CAM boot ok to transition to normal shoe. Patient reports she sees physician 05/11/18 and he said not to use regular shoe until then. Initiate PT today, has not done exercises or weight on foot prior to today. Fell 2 weeks ago out of wheelchair hitting right anterior knee, c /o pain. Also fell 03/07/18 out of wheelchair. Uncertain if put weight on left LE to get up; not present. Needs gait training on stairs for home; rail on left going up, right going down. reports he feels patient has been putting too much weight on her foot walking with walker today. Of concern is patient's prior shoulder surgeries with concern over heavy use of walker, as well as anticipated need for surgery right foot with fear of increasing pain and dysfunction on that side with increased stress of asymmetrical weight-bearing. Prior Functional Status Baseline Function- ADL's Independent Baseline Function- Mobility Independent Baseline Function- Gait independent without device Current Functional Impairments (Reported) Functional Limitations- ADL's Mostly from wheelchair Functional Limitations- Mobility/Gait CAM boot, 50% WB left LE using FWW. Limited to transfers, very short distance household. Functional Limitations- Recreation/ unable Hobbies PT-OP-C Subjective Start: 03/30/18 14:30 Freq: Status: Active Protocol: Document 05/30/18 11:00 LJ (Rec: 05/30/18 15:08 LJ [id number]) OP-PT Subjective Patient Comments Patient Comments Reoprts her pain after last aauatic session was muscle fatigue and stretching of muscles nobody else had her stretch before PT-OP-F Manual Assessment Start: 03/30/18 14:30 Freq: Status: Active Protocol: Document 03/30/18 14:30 SAK (Rec: 04/03/18 12:34 SAK [id number]) Manual Assessments Other Manual Assessments Other Manual Assessments No increase in warmth left LE. Scar healing well with small area still open due per patient to abscess from stitch . PT-OP-G Mobility & Gait Start: 03/30/18 14:30 Freq: Status: Active Protocol: Document 03/30/18 14:30 SAK (Rec: 04/03/18 12:34 SAK [id number]) Stair Climbing Evaluation Evaluation Level of Assist On Stairs Contact Guard Assistance Devices Stair Climbing Assistive Devices Small Base Quad Cane Right Railing Technique/Endurance Stair Climbing Direction Ascend and Descend Stair Climbing Technique Step to Step Comments Stair Climbing Comments cues for 50% weight-bearing, sequencing PT-OP-I Pelvic Floor Start: 03/30/18 14:30 Freq: Status: Active Protocol: Document 05/04/18 14:30 AMB (Rec: 05/04/18 16:24 AMB [email or web address]) Pelvic Floor Assessment Urine Other Leakage Causes denies leaks Bowel Other Bowel Symptoms denies any bowel symptoms Pelvic Clock Pelvic Clock 3-6 Tenderness Pelvic Clock 6-9 Hypertonic Tenderness Tightness Pelvic Clock 9-12 Hypertonic Tenderness Tightness Contraction Ability Voluntary Contraction Weak Manual Muscle Testing Left 0 Manual Muscle Testing Right 0 Manual Muscle Testing Anterior 1 Manual Muscle Testing Posterior 1 PT-OP-K Range of Motion Start: 03/30/18 14:30 Freq: Status: Active Protocol: Document 03/30/18 14:30 SAK (Rec: 04/03/18 12:34 SAK [id number]) Knee Goniometric Range of Motion Knee Measured in Degrees gloria Knee ROM WFL Yes Ankle and Foot Goniometric Range of Motion Ankle and Foot Measured in Degrees Right Active Dorsiflexion with Knee Flexed 8 Plantarflexion 45 Inversion 30 Eversion 35 Left Ankle/Foot ROM WFL Yes Testing Position Supine Dorsiflexion with Knee Flexed 5 Dorsiflexion with Knee Extended 3 Plantarflexion 42 Inversion 10 Eversion 16 Ankle and Foot ROM Limitations ROM Limitations Soft Tissue Tightness Muscle Weakness PT-OP-M Strength Start: 03/30/18 14:30 Freq: Status: Active Protocol: Document 03/30/18 14:30 [facility] (Rec: 04/03/18 12:34 [facility] [id number]) Hip Strength Hip Manual Muscle Testing Right Reason Not Measured Pain Left Flexion (L2) 3+ Fair+ Abduction 3+ Fair+ External Rotation 3+ Fair+ Internal Rotation 3+ Fair+ Knee Strength Knee Manual Muscle Testing gloria Flexion (S2) 4 Good Extension (L3) 4 Good Ankle/Foot Strength Ankle and Foot Manual Muscle Testing Right Dorsiflexion (L4) 4 Good Plantarflexion (S1) 4 Good Inversion 4- Good- Eversion (S1) 4- Good- Left Reason Not Measured Orthopedic Precautions PT-OP-Q Treatments Start: 03/30/18 14:30 Freq: Status: Active Protocol: Document 05/26/18 10:38 [facility] (Rec: 05/26/18 11:33 [facility] [id number]) Cardio Equipment Recumbent Elliptical (Biodex) Duration (Minutes) 10 Resistance 2 Therapeutic Exercises Standing Exercises HC/arch stretch Equipment Used stretch box Reps/Minutes 2x30 Comments at wall Gait Training Gait Activity level gait Device Used no boot Level of Assistance verbal cues Surface level Distance/Duration 50' x 1, 100' x 1 Comments emphasis on relaxed gait with decreased lateral sway, increased heel-toe weight , gluteal activation during stance 2 Description stairs Device Used railing Level of Assistance verbal cues Treatment Focus alternating pattern, glueal activation Comments 4 stairs Manual Therapy Treatment Soft Tissue Mobilization 1 Body Location left foot and ankle, arch Mobilization Type Myofascial Release Rolling Strumming Intensity/Depth gentle Body Position Hooklying Taping for edema reduction, arch support Body Location left foot Type of Tape kinesiotape Comments 2 fan strips for edema reduction, 2 I strips for arch support Neuro Re-Education Treatment Balance Activities tandem stand Reps/Duration 2x 30 [place] sway Reps/Duration 1 min PT-OP-R Modalities Start: 03/30/18 14:30 Freq: Status: Active Protocol: Document 05/26/18 10:38 SAK (Rec: 05/26/18 11:33 SAK [id number]) Hot Pack/Cold Pack Treatment Cold Pack Location left foot/ankle Patient Position Hooklying Treatment Duration (minutes) 10 Comments CRYOCUFF PT-OP-S Aquatic Treatment Start: 03/30/18 14:30 Freq: Status: Active Protocol: Document 05/30/18 11:00 LJ (Rec: 05/30/18 15:08 LJ [email or web address]) Aquatics Treatment Pool Entry/Exit Pool Entry/Exit Method Stairs Assistance Independent Water Walking Backwards Water Level Chest Level Level of Assistance Verbal Cues Comments reaching back w/foot Monster Walk Water Level Chest Level Level of Assistance Verbal Cues Marching Water Level Chest Level Walking Equipment Resistance Fins Level of Assistance Verbal Cues Sideways Water Level Chest Level Level of Assistance Verbal Cues forward Water Level Chest Level Level of Assistance Verbal Cues Comments arms in ER at sides for ant chest stretch Lower Extremity Exercises Hip flex/ex Body Position Standing Water Level Neck Level Reps/Duration 10x Lower Extremity Stretches DKTC, SKTC, free the hip Comments at wall in deep [place] Activities [place] Activities Bicycle [place] Hip Abduction/Adduction Other Activities SKTC, DKTC hacky sac heel to opposite hand posterior hip ext at wall Equipment flotation belt (L) Duration 25 PT-OP-T Assessment and Plan Start: 03/30/18 14:30 Freq: Status: Active Protocol: Document 05/30/18 11:00 JENNIFER (Rec: 05/30/18 15:08 LJ [id number]) Physical Therapy Assessment Goals Two Impairment Sitting tolerance Residential Goal (LTG) Patsy will sit for 30 minutes with 2/10 pain or less LTG Duration 8 weeks One Impairment pelvic floor tightness Short Term Goal (STG) Patsy will be independent with a pelvic floor relaxation HEP. STG Duration 4 weeks Residential Goal (LTG) Patsy will report 2/10 pain or less with palpation of obturator internus. LTG Duration 8 weeks decreased ROM and strength left foot/ankle Impairment foot/ankle ROM and strength Hospital Administrator Goal (LTG) Improve left ankle ROM and strength to WNL LTG Duration 3 months pain right foot/ankle Impairment 2/10 Residential Goal (LTG) Patient able to progress with ther ex and gait and return to usual activities without pain increasing greater than 2/10 LTG Duration 3 months Antalgic gait Impairment antalgic gait, using FWW, 50% WB Short Term Goal (STG) Patient will progress to 100% WB left LE without an increase in pain STG Duration 4 wks Hospital Administrator Goal (LTG) Patient able to ambulate with minimal to no limp using appropriate assistive device as needed LTG Duration 3 months Foot and Ankle Ability Measure ADL's Impairment 31% Short Term Goal (STG) Improve score to at least 50% STG Duration 4 wks Hospital Administrator Goal (LTG) Improve score to at least 75% LTG Duration 3 months Lower extremity functional scale Impairment 30% Short Term Goal (STG) Improve score to at least 50% STG Duration 4 wks Hospital Administrator Goal (LTG) Improve lower extremity functional scale to at least 70% (goal progress) LTG Duration 3 months Assessment Summary Assessment Deep water exercises incorporating dynamic stretching which pt stated worked well for her. Addressed importance of glute strengthening. Physical Therapy Plan Frequency and Duration Frequency of Treatment 3x/Week Duration of Treatment 10 weeks Plan of Care Start Date 05/04/18 Plan of Care End Date 07/13/18 Therapeutic Interventions Therapeutic Interventions Aquatic Therapy Gait Training Home Exercise Program Manual Therapy Neuromuscular Re-education Patient/Caregiver Education Self-Care/Home Management Therapeutic Activities Therapeutic Exercises Modalities Biofeedback Cold Pack/Ice Massage Electric Stimulation Ultrasound Next Visit Focus/Plan Next Note Type Treatment Note Next Visit Plan Continue deep water exercise and dynamic stretching. Add weights for LE strengthening focusing on posterior chain.
--- NOTE | 2018-06-06 15:53 | PT.OTN ---
Current Diagnoses Encounter for other orthopedic aftercare (06/02/18) Physical Therapy Treatment Note PT-OP-A Visit Information Start: 03/30/18 14:30 Freq: Status: Active Protocol: Document 06/02/18 10:30 [facility] (Rec: 06/02/18 11:20 [facility] [id number]) Out-Patient Physical Therapy Visit Information Visit Information Visit Type Treatment Note Visit Start Time 10:30 Visit Stop Time 11:25 Total Visit Minutes 55 Visit Number 19 Number of TIPPLE ENGINEER Visits 0 PT-OP-B Current Condition Start: 03/30/18 14:30 Freq: Status: Active Protocol: Document 03/30/18 14:30 [facility] (Rec: 03/30/18 15:21 [facility] [id number]) Current Condition History of Current Condition Onset Date 02/16/18 Current Complaints limited left LE function s/p left foot surgery History of Current Condition Underwent left talonavicular fusion and calcaneal autograft 02/16/18. Remained NWB for 6 wks. Now to start PT. x-ray yesterday showed good healing , patient reports less pain than before surgery. Order is for 50% WB left LE in CAM boot , then advance by 25% every 2 wks if pain controlled. When 100% in CAM boot ok to transition to normal shoe. Patient reports she sees physician 05/11/18 and he said not to use regular shoe until then. Initiate PT today, has not done exercises or weight on foot prior to today. Fell 2 weeks ago out of wheelchair hitting right anterior knee, c /o pain. Also fell 03/07/18 out of wheelchair. Uncertain if put weight on left LE to get up; not present. Needs gait training on stairs for home; rail on left going up, right going down. reports he feels patient has been putting too much weight on her foot walking with walker today. Of concern is patient's prior shoulder surgeries with concern over heavy use of walker, as well as anticipated need for surgery right foot with fear of increasing pain and dysfunction on that side with increased stress of asymmetrical weight-bearing. Prior Functional Status Baseline Function- ADL's Independent Baseline Function- Mobility Independent Baseline Function- Gait independent without device Current Functional Impairments (Reported) Functional Limitations- ADL's Mostly from wheelchair Functional Limitations- Mobility/Gait CAM boot, 50% WB left LE using FWW. Limited to transfers, very short distance household. Functional Limitations- Recreation/ unable Hobbies PT-OP-C Subjective Start: 03/30/18 14:30 Freq: Status: Active Protocol: Document 06/02/18 10:30 SAK (Rec: 06/02/18 11:20 SAK [id number]) OP-PT Subjective Patient Comments Patient Comments Reports increased hip and pelvic pain after last session . Having a hard time sitting. Did spend 4 hrs in car yesterday going to doctor about her shoulders. Wore boot down to icix, arch aching today PT-OP-F Manual Assessment Start: 03/30/18 14:30 Freq: Status: Active Protocol: Document 03/30/18 14:30 SAK (Rec: 04/03/18 12:34 SAK [id number]) Manual Assessments Other Manual Assessments Other Manual Assessments No increase in warmth left LE. Scar healing well with small area still open due per patient to abscess from stitch . PT-OP-G Mobility & Gait Start: 03/30/18 14:30 Freq: Status: Active Protocol: Document 03/30/18 14:30 SAK (Rec: 04/03/18 12:34 SAK [id number]) Stair Climbing Evaluation Evaluation Level of Assist On Stairs Contact Guard Assistance Devices Stair Climbing Assistive Devices Small Base Quad Cane Right Railing Technique/Endurance Stair Climbing Direction Ascend and Descend Stair Climbing Technique Step to Step Comments Stair Climbing Comments cues for 50% weight-bearing, sequencing PT-OP-I Pelvic Floor Start: 03/30/18 14:30 Freq: Status: Active Protocol: Document 05/04/18 14:30 AMB (Rec: 05/04/18 16:24 AMB [email or web address]) Pelvic Floor Assessment Urine Other Leakage Causes denies leaks Bowel Other Bowel Symptoms denies any bowel symptoms Pelvic Clock Pelvic Clock 3-6 Tenderness Pelvic Clock 6-9 Hypertonic Tenderness Tightness Pelvic Clock 9-12 Hypertonic Tenderness Tightness Contraction Ability Voluntary Contraction Weak Manual Muscle Testing Left 0 Manual Muscle Testing Right 0 Manual Muscle Testing Anterior 1 Manual Muscle Testing Posterior 1 PT-OP-K Range of Motion Start: 03/30/18 14:30 Freq: Status: Active Protocol: Document 03/30/18 14:30 SAK (Rec: 04/03/18 12:34 SAK [id number]) Knee Goniometric Range of Motion Knee Measured in Degrees gloria Knee ROM WFL Yes Ankle and Foot Goniometric Range of Motion Ankle and Foot Measured in Degrees Right Active Dorsiflexion with Knee Flexed 8 Plantarflexion 45 Inversion 30 Eversion 35 Left Ankle/Foot ROM WFL Yes Testing Position Supine Dorsiflexion with Knee Flexed 5 Dorsiflexion with Knee Extended 3 Plantarflexion 42 Inversion 10 Eversion 16 Ankle and Foot ROM Limitations ROM Limitations Soft Tissue Tightness Muscle Weakness PT-OP-M Strength Start: 03/30/18 14:30 Freq: Status: Active Protocol: Document 03/30/18 14:30 [facility] (Rec: 04/03/18 12:34 [facility] [id number]) Hip Strength Hip Manual Muscle Testing Right Reason Not Measured Pain Left Flexion (L2) 3+ Fair+ Abduction 3+ Fair+ External Rotation 3+ Fair+ Internal Rotation 3+ Fair+ Knee Strength Knee Manual Muscle Testing gloria Flexion (S2) 4 Good Extension (L3) 4 Good Ankle/Foot Strength Ankle and Foot Manual Muscle Testing Right Dorsiflexion (L4) 4 Good Plantarflexion (S1) 4 Good Inversion 4- Good- Eversion (S1) 4- Good- Left Reason Not Measured Orthopedic Precautions PT-OP-Q Treatments Start: 03/30/18 14:30 Freq: Status: Active Protocol: Document 06/02/18 10:30 [facility] (Rec: 06/02/18 11:20 [facility] [id number]) Cardio Equipment Recumbent Elliptical (Biodex) Duration (Minutes) 10 Resistance 2 Therapeutic Exercises Sitting Exercises 4 Sitting Exercise Name BAPS board L4 Comments AP, side, circles Standing Exercises push-offs Reps/Minutes 10x each side HC/arch stretch Equipment Used DAGMAR Reps/Minutes 2x30 Gait Training Gait Activity level gait Device Used no boot Level of Assistance verbal cues Surface level Distance/Duration 50' x 1, 100' x 1 Comments emphasis on relaxed gait with decreased lateral sway, increased heel-toe weight , gluteal activation during stance 2 Description stairs Device Used railing Level of Assistance verbal cues Treatment Focus alternating pattern, glueal activation Comments 4 stairs Manual Therapy Treatment Soft Tissue Mobilization 1 Body Location left foot and ankle, arch Mobilization Type Myofascial Release Rolling Strumming Intensity/Depth gentle Body Position Hooklying Taping for edema reduction, arch support Body Location left foot Type of Tape kinesiotape Comments 2 fan strips for edema reduction, 2 I strips for arch support Neuro Re-Education Treatment Balance Activities tandem stand Reps/Duration 2x 30 PT-OP-R Modalities Start: 03/30/18 14:30 Freq: Status: Active Protocol: Document 06/02/18 10:20 SAK (Rec: 06/06/18 15:53 SAK [id number]) Hot Pack/Cold Pack Treatment Cold Pack Location left foot/ankle Patient Position Hooklying Treatment Duration (minutes) 10 Comments CRYOCUFF PT-OP-S Aquatic Treatment Start: 03/30/18 14:30 Freq: Status: Active Protocol: Document 05/30/18 11:00 LJ (Rec: 05/30/18 15:08 LJ [email or web address]) Aquatics Treatment Pool Entry/Exit Pool Entry/Exit Method Stairs Assistance Independent Water Walking Backwards Water Level Chest Level Level of Assistance Verbal Cues Comments reaching back w/foot Monster Walk Water Level Chest Level Level of Assistance Verbal Cues Marching Water Level Chest Level Walking Equipment Resistance Fins Level of Assistance Verbal Cues Sideways Water Level Chest Level Level of Assistance Verbal Cues forward Water Level Chest Level Level of Assistance Verbal Cues Comments arms in ER at sides for ant chest stretch Lower Extremity Exercises Hip flex/ex Body Position Standing Water Level Neck Level Reps/Duration 10x Lower Extremity Stretches DKTC, SKTC, free the hip Comments at wall in deep [place] Activities [place] Activities Bicycle [place] Hip Abduction/Adduction Other Activities SKTC, DKTC hacky sac heel to opposite hand posterior hip ext at wall Equipment flotation belt (L) Duration 25 PT-OP-T Assessment and Plan Start: 03/30/18 14:30 Freq: Status: Active Protocol: Document 06/02/18 10:20 [facility] (Rec: 06/06/18 15:52 [facility] [id number]) Physical Therapy Assessment Goals Two Impairment Sitting tolerance Long-Term Goal (LTG) Patsy will sit for 30 minutes with 2/10 pain or less LTG Duration 8 weeks One Impairment pelvic floor tightness Short Term Goal (STG) Patsy will be independent with a pelvic floor relaxation HEP. STG Duration 4 weeks Long-Term Goal (LTG) Patsy will report 2/10 pain or less with palpation of obturator internus. LTG Duration 8 weeks decreased ROM and strength left foot/ankle Impairment foot/ankle ROM and strength Flight Paramedic Goal (LTG) Improve left ankle ROM and strength to WNL LTG Duration 3 months pain right foot/ankle Impairment 2/10 Long-Term Goal (LTG) Patient able to progress with ther ex and gait and return to usual activities without pain increasing greater than 2/10 LTG Duration 3 months Antalgic gait Impairment antalgic gait, using FWW, 50% WB Short Term Goal (STG) Patient will progress to 100% WB left LE without an increase in pain STG Duration 4 wks Flight Paramedic Goal (LTG) Patient able to ambulate with minimal to no limp using appropriate assistive device as needed LTG Duration 3 months Foot and Ankle Ability Measure ADL's Impairment 31% Short Term Goal (STG) Improve score to at least 50% STG Duration 4 wks Flight Paramedic Goal (LTG) Improve score to at least 75% LTG Duration 3 months Lower extremity functional scale Impairment 30% Short Term Goal (STG) Improve score to at least 50% STG Duration 4 wks Long-Term Goal (LTG) Improve lower extremity functional scale to at least 70% (goal progress) LTG Duration 3 months Physical Therapy Plan Frequency and Duration Frequency of Treatment 3x/Week Duration of Treatment 10 weeks Plan of Care Start Date 05/04/18 Plan of Care End Date 07/13/18 Therapeutic Interventions Therapeutic Interventions Aquatic Therapy Gait Training Home Exercise Program Manual Therapy Neuromuscular Re-education Patient/Caregiver Education Self-Care/Home Management Therapeutic Activities Therapeutic Exercises Modalities Biofeedback Cold Pack/Ice Massage Electric Stimulation Ultrasound Next Visit Focus/Plan Next Note Type Treatment Note Next Visit Plan Continue PT treatment for rehab s/p foot surgery; ROM, strengthening, bal, gait. Patient to schedule with women 's health PT again due to recurrent symptoms.
--- NOTE | 2018-06-07 16:22 | PT.OTN ---
Current Diagnoses Encounter for other orthopedic aftercare (06/07/18) Physical Therapy Treatment Note PT-OP-A Visit Information Start: 03/30/18 14:30 Freq: Status: Active Protocol: Document 06/07/18 08:15 [facility] (Rec: 06/07/18 08:30 [facility] [id number]) Out-Patient Physical Therapy Visit Information Visit Information Visit Type Treatment Note Visit Start Time 08:15 Visit Stop Time 09:10 Total Visit Minutes 55 Visit Number 18 Number of CARTON PACKAGING MACHINE OPERATOR Visits 0 PT-OP-B Current Condition Start: 03/30/18 14:30 Freq: Status: Active Protocol: Document 03/30/18 14:30 SAK (Rec: 03/30/18 15:21 SAK [id number]) Current Condition History of Current Condition Onset Date 02/16/18 Current Complaints limited left LE function s/p left foot surgery History of Current Condition Underwent left talonavicular fusion and calcaneal autograft 02/16/18. Remained NWB for 6 wks. Now to start PT. x-ray yesterday showed good healing , patient reports less pain than before surgery. Order is for 50% WB left LE in CAM boot , then advance by 25% every 2 wks if pain controlled. When 100% in CAM boot ok to transition to normal shoe. Patient reports she sees physician 05/11/18 and he said not to use regular shoe until then. Initiate PT today, has not done exercises or weight on foot prior to today. Fell 2 weeks ago out of wheelchair hitting right anterior knee, c /o pain. Also fell 03/07/18 out of wheelchair. Uncertain if put weight on left LE to get up; not present. Needs gait training on stairs for home; rail on left going up, right going down. reports he feels patient has been putting too much weight on her foot walking with walker today. Of concern is patient's prior shoulder surgeries with concern over heavy use of walker, as well as anticipated need for surgery right foot with fear of increasing pain and dysfunction on that side with increased stress of asymmetrical weight-bearing. Prior Functional Status Baseline Function- ADL's Independent Baseline Function- Mobility Independent Baseline Function- Gait independent without device Current Functional Impairments (Reported) Functional Limitations- ADL's Mostly from wheelchair Functional Limitations- Mobility/Gait CAM boot, 50% WB left LE using FWW. Limited to transfers, very short distance household. Functional Limitations- Recreation/ unable Hobbies PT-OP-C Subjective Start: 03/30/18 14:30 Freq: Status: Active Protocol: Document 06/07/18 08:15 SAK (Rec: 06/07/18 08:30 SAK [id number]) OP-PT Subjective Patient Comments Patient Comments Pelvis and hip still hurting but patient reports she has severe bladder infection so doesn't feel up to seeing women's health PT today. Feet feeling ok, but ankles hurting. PT-OP-F Manual Assessment Start: 03/30/18 14:30 Freq: Status: Active Protocol: Document 03/30/18 14:30 SAK (Rec: 04/03/18 12:34 SAK [id number]) Manual Assessments Other Manual Assessments Other Manual Assessments No increase in warmth left LE. Scar healing well with small area still open due per patient to abscess from stitch . PT-OP-G Mobility & Gait Start: 03/30/18 14:30 Freq: Status: Active Protocol: Document 03/30/18 14:30 SAK (Rec: 04/03/18 12:34 SAK [id number]) Stair Climbing Evaluation Evaluation Level of Assist On Stairs Contact Guard Assistance Devices Stair Climbing Assistive Devices Small Base Quad Cane Right Railing Technique/Endurance Stair Climbing Direction Ascend and Descend Stair Climbing Technique Step to Step Comments Stair Climbing Comments cues for 50% weight-bearing, sequencing PT-OP-I Pelvic Floor Start: 03/30/18 14:30 Freq: Status: Active Protocol: Document 05/04/18 14:30 AMB (Rec: 05/04/18 16:24 AMB [id number]) Pelvic Floor Assessment Urine Other Leakage Causes denies leaks Bowel Other Bowel Symptoms denies any bowel symptoms Pelvic Clock Pelvic Clock 3-6 Tenderness Pelvic Clock 6-9 Hypertonic Tenderness Tightness Pelvic Clock 9-12 Hypertonic Tenderness Tightness Contraction Ability Voluntary Contraction Weak Manual Muscle Testing Left 0 Manual Muscle Testing Right 0 Manual Muscle Testing Anterior 1 Manual Muscle Testing Posterior 1 PT-OP-K Range of Motion Start: 03/30/18 14:30 Freq: Status: Active Protocol: Document 03/30/18 14:30 SAK (Rec: 04/03/18 12:34 SAK [id number]) Knee Goniometric Range of Motion Knee Measured in Degrees gloria Knee ROM WFL Yes Ankle and Foot Goniometric Range of Motion Ankle and Foot Measured in Degrees Right Active Dorsiflexion with Knee Flexed 8 Plantarflexion 45 Inversion 30 Eversion 35 Left Ankle/Foot ROM WFL Yes Testing Position Supine Dorsiflexion with Knee Flexed 5 Dorsiflexion with Knee Extended 3 Plantarflexion 42 Inversion 10 Eversion 16 Ankle and Foot ROM Limitations ROM Limitations Soft Tissue Tightness Muscle Weakness PT-OP-M Strength Start: 03/30/18 14:30 Freq: Status: Active Protocol: Document 03/30/18 14:30 [facility] (Rec: 04/03/18 12:34 [facility] [id number]) Hip Strength Hip Manual Muscle Testing Right Reason Not Measured Pain Left Flexion (L2) 3+ Fair+ Abduction 3+ Fair+ External Rotation 3+ Fair+ Internal Rotation 3+ Fair+ Knee Strength Knee Manual Muscle Testing gloria Flexion (S2) 4 Good Extension (L3) 4 Good Ankle/Foot Strength Ankle and Foot Manual Muscle Testing Right Dorsiflexion (L4) 4 Good Plantarflexion (S1) 4 Good Inversion 4- Good- Eversion (S1) 4- Good- Left Reason Not Measured Orthopedic Precautions PT-OP-Q Treatments Start: 03/30/18 14:30 Freq: Status: Active Protocol: Document 06/07/18 08:15 [facility] (Rec: 06/07/18 08:30 [facility] [id number]) Cardio Equipment Recumbent Elliptical (Biodex) Duration (Minutes) 10 Resistance 2 Therapeutic Exercises Standing Exercises push-offs Reps/Minutes 10x each side HC/arch stretch Equipment Used DAGMAR Reps/Minutes 2x30 weight-shifts Standing Exercise Name fwd/bck, side to side Reps/Minutes 2 min Gait Training Gait Activity level gait Level of Assistance verbal cues Surface level Distance/Duration 50x 3 Comments emphasis on relaxed gait with decreased lateral sway, increased heel-toe weight , gluteal activation during stance Manual Therapy Treatment Soft Tissue Mobilization 3 Body Location right ischial tub pelvic musculature Mobilization Type Sustained Pressure Trigger Point Release Body Position Sidelying 1 Body Location left foot and ankle, arch Mobilization Type Myofascial Release Rolling Strumming Intensity/Depth gentle Body Position Hooklying Taping for edema reduction, arch support Body Location left foot Type of Tape kinesiotape Comments 2 fan strips for edema reduction, 2 I strips for arch support PT-OP-R Modalities Start: 03/30/18 14:30 Freq: Status: Active Protocol: Document 06/07/18 08:15 SAK (Rec: 06/07/18 15:13 SAK [id number]) Hot Pack/Cold Pack Treatment Cold Pack Location left foot/ankle Patient Position Hooklying Treatment Duration (minutes) 10 Comments CRYOCUFF PT-OP-S Aquatic Treatment Start: 03/30/18 14:30 Freq: Status: Active Protocol: Document 05/30/18 11:00 LJ (Rec: 05/30/18 15:08 LJ [id number]) Aquatics Treatment Pool Entry/Exit Pool Entry/Exit Method Stairs Assistance Independent Water Walking Backwards Water Level Chest Level Level of Assistance Verbal Cues Comments reaching back w/foot Monster Walk Water Level Chest Level Level of Assistance Verbal Cues Marching Water Level Chest Level Walking Equipment Resistance Fins Level of Assistance Verbal Cues Sideways Water Level Chest Level Level of Assistance Verbal Cues forward Water Level Chest Level Level of Assistance Verbal Cues Comments arms in ER at sides for ant chest stretch Lower Extremity Exercises Hip flex/ex Body Position Standing Water Level Neck Level Reps/Duration 10x Lower Extremity Stretches DKTC, SKTC, free the hip Comments at wall in deep [place] Activities [place] Activities Bicycle Cross [place] Hip Abduction/Adduction Other Activities SKTC, DKTC hacky sac heel to opposite hand posterior hip ext at wall Equipment flotation belt (L) Duration 25 PT-OP-T Assessment and Plan Start: 03/30/18 14:30 Freq: Status: Active Protocol: Document 06/07/18 08:15 SAI (Rec: 06/07/18 15:13 SAK [id number]) Physical Therapy Assessment Goals Two Impairment Sitting tolerance Fpc Goal (LTG) Patsy will sit for 30 minutes with 2/10 pain or less LTG Duration 8 weeks One Impairment pelvic floor tightness Short Term Goal (STG) Patsy will be independent with a pelvic floor relaxation HEP. STG Duration 4 weeks Regional Guide Goal (LTG) Patsy will report 2/10 pain or less with palpation of obturator internus. LTG Duration 8 weeks decreased ROM and strength left foot/ankle Impairment foot/ankle ROM and strength Fpc Goal (LTG) Improve left ankle ROM and strength to WNL LTG Duration 3 months pain right foot/ankle Impairment 2/10 Fpc Goal (LTG) Patient able to progress with ther ex and gait and return to usual activities without pain increasing greater than 2/10 LTG Duration 3 months Antalgic gait Impairment antalgic gait, using FWW, 50% WB Short Term Goal (STG) Patient will progress to 100% WB left LE without an increase in pain STG Duration 4 wks Regional Guide Goal (LTG) Patient able to ambulate with minimal to no limp using appropriate assistive device as needed LTG Duration 3 months Foot and Ankle Ability Measure ADL's Impairment 31% Short Term Goal (STG) Improve score to at least 50% STG Duration 4 wks Regional Guide Goal (LTG) Improve score to at least 75% LTG Duration 3 months Lower extremity functional scale Impairment 30% Short Term Goal (STG) Improve score to at least 50% STG Duration 4 wks Fpc Goal (LTG) Improve lower extremity functional scale to at least 70% (goal progress) LTG Duration 3 months Physical Therapy Plan Frequency and Duration Frequency of Treatment 3x/Week Duration of Treatment 10 weeks Plan of Care Start Date 05/04/18 Plan of Care End Date 07/13/18 Therapeutic Interventions Therapeutic Interventions Aquatic Therapy Gait Training Home Exercise Program Manual Therapy Neuromuscular Re-education Patient/Caregiver Education Self-Care/Home Management Therapeutic Activities Therapeutic Exercises Modalities Biofeedback Cold Pack/Ice Massage Electric Stimulation Ultrasound Next Visit Focus/Plan Next Note Type Treatment Note Next Visit Plan assess response to today's treatment, progress ther ex as tolerated. Manual therapy and modalities as needed for pain and edema control.
--- NOTE | 2018-06-09 17:25 | PT.OTN ---
Current Diagnoses Encounter for other orthopedic aftercare (06/09/18) Physical Therapy Treatment Note PT-OP-A Visit Information Start: 03/30/18 14:30 Freq: Status: Active Protocol: Document 06/09/18 08:15 [facility] (Rec: 06/09/18 17:25 [facility] [id number]) Out-Patient Physical Therapy Visit Information Visit Information Visit Type Treatment Note Visit Start Time 08:15 Visit Stop Time 09:10 Total Visit Minutes 55 Visit Number 19 Number of ENRICHMENT ASSISTANT Visits 0 PT-OP-B Current Condition Start: 03/30/18 14:30 Freq: Status: Active Protocol: Document 03/30/18 14:30 [facility] (Rec: 03/30/18 15:21 [facility] [id number]) Current Condition History of Current Condition Onset Date 02/16/18 Current Complaints limited left LE function s/p left foot surgery History of Current Condition Underwent left talonavicular fusion and calcaneal autograft 02/16/18. Remained NWB for 6 wks. Now to start PT. x-ray yesterday showed good healing , patient reports less pain than before surgery. Order is for 50% WB left LE in CAM boot , then advance by 25% every 2 wks if pain controlled. When 100% in CAM boot ok to transition to normal shoe. Patient reports she sees physician 05/11/18 and he said not to use regular shoe until then. Initiate PT today, has not done exercises or weight on foot prior to today. Fell 2 weeks ago out of wheelchair hitting right anterior knee, c /o pain. Also fell 03/07/18 out of wheelchair. Uncertain if put weight on left LE to get up; not present. Needs gait training on stairs for home; rail on left going up, right going down. reports he feels patient has been putting too much weight on her foot walking with walker today. Of concern is patient's prior shoulder surgeries with concern over heavy use of walker, as well as anticipated need for surgery right foot with fear of increasing pain and dysfunction on that side with increased stress of asymmetrical weight-bearing. Prior Functional Status Baseline Function- ADL's Independent Baseline Function- Mobility Independent Baseline Function- Gait independent without device Current Functional Impairments (Reported) Functional Limitations- ADL's Mostly from wheelchair Functional Limitations- Mobility/Gait CAM boot, 50% WB left LE using FWW. Limited to transfers, very short distance household. Functional Limitations- Recreation/ unable Hobbies PT-OP-C Subjective Start: 03/30/18 14:30 Freq: Status: Active Protocol: Document 06/09/18 08:15 SAK (Rec: 06/09/18 17:25 SAK [id number]) OP-PT Subjective Patient Comments Patient Comments Reports increased pain in buttock (used tennis ball and ice with only mild relief noted), and noted increased swelling bilateral ankles. 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 Also noticing worsening angioedema symptoms. PT-OP-F Manual Assessment Start: 03/30/18 14:30 Freq: Status: Active Protocol: Document 03/30/18 14:30 SAK (Rec: 04/03/18 12:34 SAK [id number]) Manual Assessments Other Manual Assessments Other Manual Assessments No increase in warmth left LE. Scar healing well with small area still open due per patient to abscess from stitch . PT-OP-G Mobility & Gait Start: 03/30/18 14:30 Freq: Status: Active Protocol: Document 03/30/18 14:30 SAK (Rec: 04/03/18 12:34 [facility] [id number]) Stair Climbing Evaluation Evaluation Level of Assist On Stairs Contact Guard Assistance Devices Stair Climbing Assistive Devices Small Base Quad Cane Right Railing Technique/Endurance Stair Climbing Direction Ascend and Descend Stair Climbing Technique Step to Step Comments Stair Climbing Comments cues for 50% weight-bearing, sequencing PT-OP-I Pelvic Floor Start: 03/30/18 14:30 Freq: Status: Active Protocol: Document 05/04/18 14:30 AMB (Rec: 05/04/18 16:24 AMB [id number]) Pelvic Floor Assessment Urine Other Leakage Causes denies leaks Bowel Other Bowel Symptoms denies any bowel symptoms Pelvic Clock Pelvic Clock 3-6 Tenderness Pelvic Clock 6-9 Hypertonic Tenderness Tightness Pelvic Clock 9-12 Hypertonic Tenderness Tightness Contraction Ability Voluntary Contraction Weak Manual Muscle Testing Left 0 Manual Muscle Testing Right 0 Manual Muscle Testing Anterior 1 Manual Muscle Testing Posterior 1 PT-OP-K Range of Motion Start: 03/30/18 14:30 Freq: Status: Active Protocol: Document 03/30/18 14:30 SAK (Rec: 04/03/18 12:34 SAK [id number]) Knee Goniometric Range of Motion Knee Measured in Degrees gloria Knee ROM WFL Yes Ankle and Foot Goniometric Range of Motion Ankle and Foot Measured in Degrees Right Active Dorsiflexion with Knee Flexed 8 Plantarflexion 45 Inversion 30 Eversion 35 Left Ankle/Foot ROM WFL Yes Testing Position Supine Dorsiflexion with Knee Flexed 5 Dorsiflexion with Knee Extended 3 Plantarflexion 42 Inversion 10 Eversion 16 Ankle and Foot ROM Limitations ROM Limitations Soft Tissue Tightness Muscle Weakness PT-OP-M Strength Start: 03/30/18 14:30 Freq: Status: Active Protocol: Document 03/30/18 14:30 [facility] (Rec: 04/03/18 12:34 [facility] [id number]) Hip Strength Hip Manual Muscle Testing Right Reason Not Measured Pain Left Flexion (L2) 3+ Fair+ Abduction 3+ Fair+ External Rotation 3+ Fair+ Internal Rotation 3+ Fair+ Knee Strength Knee Manual Muscle Testing gloria Flexion (S2) 4 Good Extension (L3) 4 Good Ankle/Foot Strength Ankle and Foot Manual Muscle Testing Right Dorsiflexion (L4) 4 Good Plantarflexion (S1) 4 Good Inversion 4- Good- Eversion (S1) 4- Good- Left Reason Not Measured Orthopedic Precautions PT-OP-Q Treatments Start: 03/30/18 14:30 Freq: Status: Active Protocol: Document 06/09/18 08:15 [facility] (Rec: 06/09/18 17:25 [facility] [id number]) Cardio Equipment Recumbent Elliptical (Biodex) Duration (Minutes) 10 Resistance 2 Therapeutic Exercises Supine Exercises TrA activation Reps/Minutes 10x 1 Supine Exercise Name gluteal isometric, ball squeeze, hip ab/ER with L1TB Reps/Minutes 10x ea Comments with TrA Sitting Exercises 4 Sitting Exercise Name BAPS board L4 Comments AP, side, circles (gloria) 3 Sitting Exercise Name short foot Reps/Minutes 5x Standing Exercises HC/arch stretch Equipment Used DAGMAR Reps/Minutes 1x30 Manual Therapy Treatment Taping for edema reduction, arch support Body Location left foot Type of Tape kinesiotape Comments 2 fan strips for edema reduction, 2 I strips for arch support Self-Care/Home Management Treatment Activities Self-Care/Home Management Activities emphasis on core stabilization , strengthening, NWB foot / ankle ROM and strengthening. PT-OP-R Modalities Start: 03/30/18 14:30 Freq: Status: Active Protocol: Document 06/09/18 08:15 SAK (Rec: 06/09/18 17:25 SAK [id number]) Hot Pack/Cold Pack Treatment Cold Pack Location left foot/ankle Patient Position Hooklying Treatment Duration (minutes) 10 Comments CRYOCUFF PT-OP-S Aquatic Treatment Start: 03/30/18 14:30 Freq: Status: Active Protocol: Document 05/30/18 11:00 LJ (Rec: 05/30/18 15:08 LJ [id number]) Aquatics Treatment Pool Entry/Exit Pool Entry/Exit Method Stairs Assistance Independent Water Walking Backwards Water Level Chest Level Level of Assistance Verbal Cues Comments reaching back w/foot Monster Walk Water Level Chest Level Level of Assistance Verbal Cues Marching Water Level Chest Level Walking Equipment Resistance Fins Level of Assistance Verbal Cues Sideways Water Level Chest Level Level of Assistance Verbal Cues forward Water Level Chest Level Level of Assistance Verbal Cues Comments arms in ER at sides for ant chest stretch Lower Extremity Exercises Hip flex/ex Body Position Standing Water Level Neck Level Reps/Duration 10x Lower Extremity Stretches DKTC, SKTC, free the hip Comments at wall in deep [place] Activities [place] Activities Bicycle [place] Hip Abduction/Adduction Other Activities SKTC, DKTC hacky sac heel to opposite hand posterior hip ext at wall Equipment flotation belt (L) Duration 25 PT-OP-T Assessment and Plan Start: 03/30/18 14:30 Freq: Status: Active Protocol: Document 06/09/18 08:15 SAK (Rec: 06/09/18 17:25 SAK [id number]) Physical Therapy Assessment Goals Two Impairment Sitting tolerance Metal Casket Maker Goal (LTG) Patsy will sit for 30 minutes with 2/10 pain or less LTG Duration 8 weeks One Impairment pelvic floor tightness Short Term Goal (STG) Patsy will be independent with a pelvic floor relaxation HEP. STG Duration 4 weeks Metal Casket Maker Goal (LTG) Patsy will report 2/10 pain or less with palpation of obturator internus. LTG Duration 8 weeks decreased ROM and strength left foot/ankle Impairment foot/ankle ROM and strength Metal Casket Maker Goal (LTG) Improve left ankle ROM and strength to WNL LTG Duration 3 months pain right foot/ankle Impairment 2/10 Usp Goal (LTG) Patient able to progress with ther ex and gait and return to usual activities without pain increasing greater than 2/10 LTG Duration 3 months Antalgic gait Impairment antalgic gait, using FWW, 50% WB Short Term Goal (STG) Patient will progress to 100% WB left LE without an increase in pain STG Duration 4 wks Metal Casket Maker Goal (LTG) Patient able to ambulate with minimal to no limp using appropriate assistive device as needed LTG Duration 3 months Foot and Ankle Ability Measure ADL's Impairment 31% Short Term Goal (STG) Improve score to at least 50% STG Duration 4 wks Metal Casket Maker Goal (LTG) Improve score to at least 75% LTG Duration 3 months Lower extremity functional scale Impairment 30% Short Term Goal (STG) Improve score to at least 50% STG Duration 4 wks Usp Goal (LTG) Improve lower extremity functional scale to at least 70% (goal progress) LTG Duration 3 months Physical Therapy Plan Frequency and Duration Frequency of Treatment 3x/Week Duration of Treatment 10 weeks Plan of Care Start Date 05/04/18 Plan of Care End Date 07/13/18 Therapeutic Interventions Therapeutic Interventions Aquatic Therapy Gait Training Home Exercise Program Manual Therapy Neuromuscular Re-education Patient/Caregiver Education Self-Care/Home Management Therapeutic Activities Therapeutic Exercises Modalities Biofeedback Cold Pack/Ice Massage Electric Stimulation Ultrasound Next Visit Focus/Plan Next Note Type Progress Note Next Visit Plan Patient to contact lab[employer], reschedule with women's health PT, emphasis on NWB foot and ankle ex as well as on core strengthening and gentle hip ROM.
--- NOTE | 2018-06-13 07:44 | PT.OPPN ---
Current Diagnoses Encounter for other orthopedic aftercare (06/09/18) Physical Therapy Progress Note PT-OP-A Visit Information Start: 03/30/18 14:30 Freq: Status: Active Protocol: Document 06/09/18 08:15 [facility] (Rec: 06/09/18 17:25 [facility] [id number]) Out-Patient Physical Therapy Visit Information Visit Information Visit Type Treatment Note Visit Start Time 08:15 Visit Stop Time 09:10 Total Visit Minutes 55 Visit Number 19 Number of CYTOGENETIC TECHNICIAN Visits 0 PT-OP-B Current Condition Start: 03/30/18 14:30 Freq: Status: Active Protocol: Document 03/30/18 14:30 [facility] (Rec: 03/30/18 15:21 [facility] [id number]) Current Condition History of Current Condition Onset Date 02/16/18 Current Complaints limited left LE function s/p left foot surgery History of Current Condition Underwent left talonavicular fusion and calcaneal autograft 02/16/18. Remained NWB for 6 wks. Now to start PT. x-ray yesterday showed good healing , patient reports less pain than before surgery. Order is for 50% WB left LE in CAM boot , then advance by 25% every 2 wks if pain controlled. When 100% in CAM boot ok to transition to normal shoe. Patient reports she sees physician 05/11/18 and he said not to use regular shoe until then. Initiate PT today, has not done exercises or weight on foot prior to today. Fell 2 weeks ago out of wheelchair hitting right anterior knee, c /o pain. Also fell 03/07/18 out of wheelchair. Uncertain if put weight on left LE to get up; not present. Needs gait training on stairs for home; rail on left going up, right going down. reports he feels patient has been putting too much weight on her foot walking with walker today. Of concern is patient's prior shoulder surgeries with concern over heavy use of walker, as well as anticipated need for surgery right foot with fear of increasing pain and dysfunction on that side with increased stress of asymmetrical weight-bearing. Prior Functional Status Baseline Function- ADL's Independent Baseline Function- Mobility Independent Baseline Function- Gait independent without device Current Functional Impairments (Reported) Functional Limitations- ADL's Mostly from wheelchair Functional Limitations- Mobility/Gait CAM boot, 50% WB left LE using FWW. Limited to transfers, very short distance household. Functional Limitations- Recreation/ unable Hobbies PT-OP-C Subjective Start: 03/30/18 14:30 Freq: Status: Active Protocol: Document 06/09/18 08:15 SAK (Rec: 06/09/18 17:25 SAK [id number]) OP-PT Subjective Patient Comments Patient Comments Reports increased pain in buttock (used tennis ball and ice with only mild relief noted), and noted increased swelling bilateral ankles. 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 Also noticing worsening angioedema symptoms. PT-OP-F Manual Assessment Start: 03/30/18 14:30 Freq: Status: Active Protocol: Document 03/30/18 14:30 SAK (Rec: 04/03/18 12:34 SAK [id number]) Manual Assessments Other Manual Assessments Other Manual Assessments No increase in warmth left LE. Scar healing well with small area still open due per patient to abscess from stitch . PT-OP-G Mobility & Gait Start: 03/30/18 14:30 Freq: Status: Active Protocol: Document 03/30/18 14:30 SAK (Rec: 04/03/18 12:34 [facility] [id number]) Stair Climbing Evaluation Evaluation Level of Assist On Stairs Contact Guard Assistance Devices Stair Climbing Assistive Devices Small Base Quad Cane Right Railing Technique/Endurance Stair Climbing Direction Ascend and Descend Stair Climbing Technique Step to Step Comments Stair Climbing Comments cues for 50% weight-bearing, sequencing PT-OP-I Pelvic Floor Start: 03/30/18 14:30 Freq: Status: Active Protocol: Document 05/04/18 14:30 AMB (Rec: 05/04/18 16:24 AMB [email or web address]) Pelvic Floor Assessment Urine Other Leakage Causes denies leaks Bowel Other Bowel Symptoms denies any bowel symptoms Pelvic Clock Pelvic Clock 3-6 Tenderness Pelvic Clock 6-9 Hypertonic Tenderness Tightness Pelvic Clock 9-12 Hypertonic Tenderness Tightness Contraction Ability Voluntary Contraction Weak Manual Muscle Testing Left 0 Manual Muscle Testing Right 0 Manual Muscle Testing Anterior 1 Manual Muscle Testing Posterior 1 PT-OP-K Range of Motion Start: 03/30/18 14:30 Freq: Status: Active Protocol: Document 03/30/18 14:30 SAK (Rec: 04/03/18 12:34 SAK [id number]) Knee Goniometric Range of Motion Knee Measured in Degrees gloria Knee ROM WFL Yes Ankle and Foot Goniometric Range of Motion Ankle and Foot Measured in Degrees Right Active Dorsiflexion with Knee Flexed 8 Plantarflexion 45 Inversion 30 Eversion 35 Left Ankle/Foot ROM WFL Yes Testing Position Supine Dorsiflexion with Knee Flexed 5 Dorsiflexion with Knee Extended 3 Plantarflexion 42 Inversion 10 Eversion 16 Ankle and Foot ROM Limitations ROM Limitations Soft Tissue Tightness Muscle Weakness PT-OP-M Strength Start: 03/30/18 14:30 Freq: Status: Active Protocol: Document 03/30/18 14:30 [facility] (Rec: 04/03/18 12:34 [facility] [id number]) Hip Strength Hip Manual Muscle Testing Right Reason Not Measured Pain Left Flexion (L2) 3+ Fair+ Abduction 3+ Fair+ External Rotation 3+ Fair+ Internal Rotation 3+ Fair+ Knee Strength Knee Manual Muscle Testing gloria Flexion (S2) 4 Good Extension (L3) 4 Good Ankle/Foot Strength Ankle and Foot Manual Muscle Testing Right Dorsiflexion (L4) 4 Good Plantarflexion (S1) 4 Good Inversion 4- Good- Eversion (S1) 4- Good- Left Reason Not Measured Orthopedic Precautions PT-OP-T Assessment and Plan Start: 03/30/18 14:30 Freq: Status: Active Protocol: Document 06/09/18 08:15 [facility] (Rec: 06/09/18 17:25 [facility] [id number]) Physical Therapy Assessment Goals Two Impairment Sitting tolerance Assisted Goal (LTG) Patsy will sit for 30 minutes with 2/10 pain or less 06/09/18: had made good progress after women's health visit but is again having increased pain and difficulty tolerating sitting. Sees women's health PT next visit. LTG Duration 8 weeks One Impairment pelvic floor tightness Short Term Goal (STG) Patsy will be independent with a pelvic floor relaxation HEP. 06/09/18: to be addressed by women's health PT next visit. STG Duration 4 weeks Peritoneal Dialysis Registered Nurse Goal (LTG) Patsy will report 2/10 pain or less with palpation of obturator internus. 06/09/18: to be addressed by women's health PT next visit LTG Duration 8 weeks decreased ROM and strength left foot/ankle Impairment foot/ankle ROM and strength Peritoneal Dialysis Registered Nurse Goal (LTG) Improve left ankle ROM and strength to WNL 06/09/18: good progress, highly compliant to HEP. Recent exacerbation of increased pain and edema bilateral ankles. LTG Duration 3 months pain right foot/ankle Impairment 2/10 Peritoneal Dialysis Registered Nurse Goal (LTG) Patient able to progress with ther ex and gait and return to usual activities without pain increasing greater than 2/10 06/09/18: good progress. Limited by pelvic pain which appears due to compensatory movement strategies. LTG Duration 3 months Antalgic gait Impairment antalgic gait, using FWW, 50% WB Short Term Goal (STG) Patient will progress to 100% WB left LE without an increase in pain 06/09/18: good progress, though as above a recent exacerbation of edema and swelling. STG Duration 4 wks Peritoneal Dialysis Registered Nurse Goal (LTG) Patient able to ambulate with minimal to no limp using appropriate assistive device as needed 06/09/18: good progress, though habitual compensatory movements require further re- education and contribute to her function-limiting pelvic pain. LTG Duration 3 months Foot and Ankle Ability Measure ADL's Impairment 31% Short Term Goal (STG) Improve score to at least 50% STG Duration 4 wks Peritoneal Dialysis Registered Nurse Goal (LTG) Improve score to at least 75% LTG Duration 3 months Lower extremity functional scale Impairment 30% Short Term Goal (STG) Improve score to at least 50% STG Duration 4 wks Peritoneal Dialysis Registered Nurse Goal (LTG) Improve lower extremity functional scale to at least 70% (goal progress) LTG Duration 3 months Assessment Summary Assessment Except for recent exacerbation of pain and swelling gloria ankles (not surgical area) patient has been progressing well with improving strength and function of her left foot, responds well to cues for gait correction but easily slips back into habitual compensatory movement stragegies with gait. Limiting her improvement has been ongoing pelvic pain which appears due to compensatory movements; this was resolved with women's health visit but reexacerbated recently. Will be seeing women's health PT again next visit. Physical Therapy Plan Frequency and Duration Frequency of Treatment 3x/Week Duration of Treatment 10 weeks Plan of Care Start Date 05/04/18 Plan of Care End Date 07/13/18 Therapeutic Interventions Therapeutic Interventions Aquatic Therapy Gait Training Home Exercise Program Manual Therapy Neuromuscular Re-education Patient/Caregiver Education Self-Care/Home Management Therapeutic Activities Therapeutic Exercises Modalities Biofeedback Cold Pack/Ice Massage Electric Stimulation Ultrasound Next Visit Focus/Plan Next Note Type Treatment Note Next Visit Plan Patient to contact ship liner, reschedule with women's health PT, emphasis on NWB foot and ankle ex as well as on core strengthening and gentle hip ROM.
--- NOTE | 2018-06-13 12:18 | PT.OTN ---
Current Diagnoses Encounter for other orthopedic aftercare (06/13/18) Physical Therapy Treatment Note PT-OP-A Visit Information Start: 03/30/18 14:30 Freq: Status: Active Protocol: Document 06/13/18 09:45 AMB (Rec: 06/13/18 12:18 AMB [email or web address]) Out-Patient Physical Therapy Visit Information Visit Information Visit Type Treatment Note Visit Start Time 09:45 Visit Stop Time 10:30 Total Visit Minutes 45 Visit Number 20 PT-OP-B Current Condition Start: 03/30/18 14:30 Freq: Status: Active Protocol: Document 03/30/18 14:30 SAK (Rec: 03/30/18 15:21 SAK [id number]) Current Condition History of Current Condition Onset Date 02/16/18 Current Complaints limited left LE function s/p left foot surgery History of Current Condition Underwent left talonavicular fusion and calcaneal autograft 02/16/18. Remained NWB for 6 wks. Now to start PT. x-ray yesterday showed good healing , patient reports less pain than before surgery. Order is for 50% WB left LE in CAM boot , then advance by 25% every 2 wks if pain controlled. When 100% in CAM boot ok to transition to normal shoe. Patient reports she sees physician 05/11/18 and he said not to use regular shoe until then. Initiate PT today, has not done exercises or weight on foot prior to today. Fell 2 weeks ago out of wheelchair hitting right anterior knee, c /o pain. Also fell 03/07/18 out of wheelchair. Uncertain if put weight on left LE to get up; not present. Needs gait training on stairs for home; rail on left going up, right going down. reports he feels patient has been putting too much weight on her foot walking with walker today. Of concern is patient's prior shoulder surgeries with concern over heavy use of walker, as well as anticipated need for surgery right foot with fear of increasing pain and dysfunction on that side with increased stress of asymmetrical weight-bearing. Prior Functional Status Baseline Function- ADL's Independent Baseline Function- Mobility Independent Baseline Function- Gait independent without device Current Functional Impairments (Reported) Functional Limitations- ADL's Mostly from wheelchair Functional Limitations- Mobility/Gait CAM boot, 50% WB left LE using FWW. Limited to transfers, very short distance household. Functional Limitations- Recreation/ unable Hobbies PT-OP-C Subjective Start: 03/30/18 14:30 Freq: Status: Active Protocol: Document 06/13/18 09:45 AMB (Rec: 06/13/18 12:18 AMB [email or web address]) OP-PT Subjective Patient Comments Patient Comments Pt reports she feels obterator pain is better since seeing this therapist, but sitting pain continues. PT-OP-F Manual Assessment Start: 03/30/18 14:30 Freq: Status: Active Protocol: Document 03/30/18 14:30 SAK (Rec: 04/03/18 12:34 SAK [id number]) Manual Assessments Other Manual Assessments Other Manual Assessments No increase in warmth left LE. Scar healing well with small area still open due per patient to abscess from stitch . PT-OP-G Mobility & Gait Start: 03/30/18 14:30 Freq: Status: Active Protocol: Document 03/30/18 14:30 SAK (Rec: 04/03/18 12:34 SAK [id number]) Stair Climbing Evaluation Evaluation Level of Assist On Stairs Contact Guard Assistance Devices Stair Climbing Assistive Devices Small Base Quad Cane Right Railing Technique/Endurance Stair Climbing Direction Ascend and Descend Stair Climbing Technique Step to Step Comments Stair Climbing Comments cues for 50% weight-bearing, sequencing PT-OP-I Pelvic Floor Start: 03/30/18 14:30 Freq: Status: Active Protocol: Document 05/04/18 14:30 AMB (Rec: 05/04/18 16:24 AMB [email or web address]) Pelvic Floor Assessment Urine Other Leakage Causes denies leaks Bowel Other Bowel Symptoms denies any bowel symptoms Pelvic Clock Pelvic Clock 3-6 Tenderness Pelvic Clock 6-9 Hypertonic Tenderness Tightness Pelvic Clock 9-12 Hypertonic Tenderness Tightness Contraction Ability Voluntary Contraction Weak Manual Muscle Testing Left 0 Manual Muscle Testing Right 0 Manual Muscle Testing Anterior 1 Manual Muscle Testing Posterior 1 PT-OP-K Range of Motion Start: 03/30/18 14:30 Freq: Status: Active Protocol: Document 03/30/18 14:30 SAK (Rec: 04/03/18 12:34 SAK [id number]) Knee Goniometric Range of Motion Knee Measured in Degrees gloria Knee ROM WFL Yes Ankle and Foot Goniometric Range of Motion Ankle and Foot Measured in Degrees Right Active Dorsiflexion with Knee Flexed 8 Plantarflexion 45 Inversion 30 Eversion 35 Left Ankle/Foot ROM WFL Yes Testing Position Supine Dorsiflexion with Knee Flexed 5 Dorsiflexion with Knee Extended 3 Plantarflexion 42 Inversion 10 Eversion 16 Ankle and Foot ROM Limitations ROM Limitations Soft Tissue Tightness Muscle Weakness PT-OP-M Strength Start: 03/30/18 14:30 Freq: Status: Active Protocol: Document 03/30/18 14:30 SAK (Rec: 04/03/18 12:34 SAK [id number]) Hip Strength Hip Manual Muscle Testing Right Reason Not Measured Pain Left Flexion (L2) 3+ Fair+ Abduction 3+ Fair+ External Rotation 3+ Fair+ Internal Rotation 3+ Fair+ Knee Strength Knee Manual Muscle Testing gloria Flexion (S2) 4 Good Extension (L3) 4 Good Ankle/Foot Strength Ankle and Foot Manual Muscle Testing Right Dorsiflexion (L4) 4 Good Plantarflexion (S1) 4 Good Inversion 4- Good- Eversion (S1) 4- Good- Left Reason Not Measured Orthopedic Precautions PT-OP-Q Treatments Start: 03/30/18 14:30 Freq: Status: Active Protocol: Document 06/13/18 09:45 AMB (Rec: 06/13/18 12:18 AMB [email or web address]) Manual Therapy Treatment Soft Tissue Mobilization 3 Body Location right ischial tub pelvic musculature Mobilization Type Myofascial Release Sustained Pressure Body Position Sidelying 2 Body Location R obterator Mobilization Type Sustained Pressure Trigger Point Release Manual Techniques 1 Type MET for R posterior innominant rotation Body Position Hooklying Reps/Duration 5x4 PT-OP-R Modalities Start: 03/30/18 14:30 Freq: Status: Active Protocol: Document 06/09/18 08:15 SAK (Rec: 06/09/18 17:25 SAK [id number]) Hot Pack/Cold Pack Treatment Cold Pack Location left foot/ankle Patient Position Hooklying Treatment Duration (minutes) 10 Comments [id number] PT-OP-S Aquatic Treatment Start: 03/30/18 14:30 Freq: Status: Active Protocol: Document 05/30/18 11:00 LJ (Rec: 05/30/18 15:08 LJ [email or web address]) Aquatics Treatment Pool Entry/Exit Pool Entry/Exit Method Stairs Assistance Independent Water Walking Backwards Water Level Chest Level Level of Assistance Verbal Cues Comments reaching back w/foot Monster Walk Water Level Chest Level Level of Assistance Verbal Cues Marching Water Level Chest Level Walking Equipment Resistance Fins Level of Assistance Verbal Cues Sideways Water Level Chest Level Level of Assistance Verbal Cues forward Water Level Chest Level Level of Assistance Verbal Cues Comments arms in ER at sides for ant chest stretch Lower Extremity Exercises Hip flex/ex Body Position Standing Water Level Neck Level Reps/Duration 10x Lower Extremity Stretches DKTC, SKTC, free the hip Comments at wall in deep [place] Activities [place] Activities Bicycle [place] Hip Abduction/Adduction Other Activities SKTC, DKTC hacky sac heel to opposite hand posterior hip ext at wall Equipment flotation belt (L) Duration 25 PT-OP-T Assessment and Plan Start: 03/30/18 14:30 Freq: Status: Active Protocol: Document 06/13/18 09:45 AMB (Rec: 06/13/18 12:18 AMB [email or web address]) Physical Therapy Assessment Goals Two Impairment Sitting tolerance Import Customer Service Manager Goal (LTG) Patsy will sit for 30 minutes with 2/10 pain or less 06/09/18: had made good progress after women's health visit but is again having increased pain and difficulty tolerating sitting. Sees women's health PT next visit. LTG Duration 8 weeks One Impairment pelvic floor tightness Short Term Goal (STG) Patsy will be independent with a pelvic floor relaxation HEP. STG Duration MET Senior Care Goal (LTG) Patsy will report 2/10 pain or less with palpation of obturator internus. 06/09/18: to be addressed by women's health PT next visit LTG Duration MET Assessment Summary Assessment Unable to reproduce sitting pain with palpation of obterator today. Overall decreased tone in comparison to last visit. Was able to reproduce pain with active hamstring contraction. With palpation, worst of pain is just medial to ischial tuberosity. Proximal hamstring pain is a likely issue, and Patsy's primary therapist should be able to treat this in addition to her ankle issues. Sitting and going up and down stairs seem to be the biggest issue for her. Physical Therapy Plan Frequency and Duration Frequency of Treatment 3x/Week Duration of Treatment 10 weeks Plan of Care Start Date 05/04/18 Plan of Care End Date 07/13/18 Therapeutic Interventions Therapeutic Interventions Aquatic Therapy Gait Training Home Exercise Program Manual Therapy Neuromuscular Re-education Patient/Caregiver Education Self-Care/Home Management Therapeutic Activities Therapeutic Exercises Modalities Biofeedback Cold Pack/Ice Massage Electric Stimulation Ultrasound Next Visit Focus/Plan Next Note Type Treatment Note Next Visit Plan Patient to contact work force advisor, reschedule with women's health PT, emphasis on NWB foot and ankle ex as well as on core strengthening and gentle hip ROM. No further need for obterator manual therapy unless pain returns.
--- NOTE | 2018-06-20 16:54 | PT.OTN ---
Current Diagnoses Encounter for other orthopedic aftercare (06/20/18) Physical Therapy Treatment Note PT-OP-A Visit Information Start: 03/30/18 14:30 Freq: Status: Active Protocol: Document 06/20/18 09:08 [facility] (Rec: 06/20/18 09:55 [facility] [id number]) Out-Patient Physical Therapy Visit Information Visit Information Visit Type Treatment Note Visit Start Time 09:00 Visit Stop Time 09:50 Total Visit Minutes 50 Visit Number 21 Evaluation Information Evaluation Date 03/30/18 PT-OP-B Current Condition Start: 03/30/18 14:30 Freq: Status: Active Protocol: Document 03/30/18 14:30 SAK (Rec: 03/30/18 15:21 SAK [id number]) Current Condition History of Current Condition Onset Date 02/16/18 Current Complaints limited left LE function s/p left foot surgery History of Current Condition Underwent left talonavicular fusion and calcaneal autograft 02/16/18. Remained NWB for 6 wks. Now to start PT. x-ray yesterday showed good healing , patient reports less pain than before surgery. Order is for 50% WB left LE in CAM boot , then advance by 25% every 2 wks if pain controlled. When 100% in CAM boot ok to transition to normal shoe. Patient reports she sees physician 05/11/18 and he said not to use regular shoe until then. Initiate PT today, has not done exercises or weight on foot prior to today. Fell 2 weeks ago out of wheelchair hitting right anterior knee, c /o pain. Also fell 03/07/18 out of wheelchair. Uncertain if put weight on left LE to get up; not present. Needs gait training on stairs for home; rail on left going up, right going down. reports he feels patient has been putting too much weight on her foot walking with walker today. Of concern is patient's prior shoulder surgeries with concern over heavy use of walker, as well as anticipated need for surgery right foot with fear of increasing pain and dysfunction on that side with increased stress of asymmetrical weight-bearing. Prior Functional Status Baseline Function- ADL's Independent Baseline Function- Mobility Independent Baseline Function- Gait independent without device Current Functional Impairments (Reported) Functional Limitations- ADL's Mostly from wheelchair Functional Limitations- Mobility/Gait CAM boot, 50% WB left LE using FWW. Limited to transfers, very short distance household. Functional Limitations- Recreation/ unable Hobbies PT-OP-C Subjective Start: 03/30/18 14:30 Freq: Status: Active Protocol: Document 06/20/18 09:08 SAK (Rec: 06/20/18 09:55 SAK [id number]) OP-PT Subjective Patient Comments Patient Comments able to walk further 4/12 than has in 2 years (went to multiple stores, wearing shoes , no boot), mild ache in feet. Hamstring and groin continues to be limiting though reports no icing after above walking. Also reports some increase in numbness in feet over the past week. Will be gone for 10 days and wants further guidance regarding what to do for hamstring while gone. Feels she still may need to see women's health PT as decrease in pain in pelvis after that session. PT-OP-F Manual Assessment Start: 03/30/18 14:30 Freq: Status: Active Protocol: Document 03/30/18 14:30 [facility] (Rec: 04/03/18 12:34 [facility] [id number]) Manual Assessments Other Manual Assessments Other Manual Assessments No increase in warmth left LE. Scar healing well with small area still open due per patient to abscess from stitch . PT-OP-G Mobility & Gait Start: 03/30/18 14:30 Freq: Status: Active Protocol: Document 03/30/18 14:30 [facility] (Rec: 04/03/18 12:34 [facility] [id number]) Stair Climbing Evaluation Evaluation Level of Assist On Stairs Contact Guard Assistance Devices Stair Climbing Assistive Devices Small Base Quad Cane Right Railing Technique/Endurance Stair Climbing Direction Ascend and Descend Stair Climbing Technique Step to Step Comments Stair Climbing Comments cues for 50% weight-bearing, sequencing PT-OP-I Pelvic Floor Start: 03/30/18 14:30 Freq: Status: Active Protocol: Document 05/04/18 14:30 AMB (Rec: 05/04/18 16:24 AMB [id number]) Pelvic Floor Assessment Urine Other Leakage Causes denies leaks Bowel Other Bowel Symptoms denies any bowel symptoms Pelvic Clock Pelvic Clock 3-6 Tenderness Pelvic Clock 6-9 Hypertonic Tenderness Tightness Pelvic Clock 9-12 Hypertonic Tenderness Tightness Contraction Ability Voluntary Contraction Weak Manual Muscle Testing Left 0 Manual Muscle Testing Right 0 Manual Muscle Testing Anterior 1 Manual Muscle Testing Posterior 1 PT-OP-K Range of Motion Start: 03/30/18 14:30 Freq: Status: Active Protocol: Document 03/30/18 14:30 [facility] (Rec: 04/03/18 12:34 [facility] [id number]) Knee Goniometric Range of Motion Knee Measured in Degrees gloria Knee ROM WFL Yes Ankle and Foot Goniometric Range of Motion Ankle and Foot Measured in Degrees Right Active Dorsiflexion with Knee Flexed 8 Plantarflexion 45 Inversion 30 Eversion 35 Left Ankle/Foot ROM WFL Yes Testing Position Supine Dorsiflexion with Knee Flexed 5 Dorsiflexion with Knee Extended 3 Plantarflexion 42 Inversion 10 Eversion 16 Ankle and Foot ROM Limitations ROM Limitations Soft Tissue Tightness Muscle Weakness PT-OP-M Strength Start: 03/30/18 14:30 Freq: Status: Active Protocol: Document 03/30/18 14:30 [facility] (Rec: 04/03/18 12:34 [facility] [id number]) Hip Strength Hip Manual Muscle Testing Right Reason Not Measured Pain Left Flexion (L2) 3+ Fair+ Abduction 3+ Fair+ External Rotation 3+ Fair+ Internal Rotation 3+ Fair+ Knee Strength Knee Manual Muscle Testing gloria Flexion (S2) 4 Good Extension (L3) 4 Good Ankle/Foot Strength Ankle and Foot Manual Muscle Testing Right Dorsiflexion (L4) 4 Good Plantarflexion (S1) 4 Good Inversion 4- Good- Eversion (S1) 4- Good- Left Reason Not Measured Orthopedic Precautions PT-OP-Q Treatments Start: 03/30/18 14:30 Freq: Status: Active Protocol: Document 06/20/18 09:08 [facility] (Rec: 06/20/18 09:55 [facility] [id number]) Cardio Equipment Recumbent Elliptical (Biodex) Duration (Minutes) 10 Resistance 2 Therapeutic Exercises Sitting Exercises hamstring curl with plastic bag under foot Reps/Minutes 5x Comments painful HS stretch Reps/Minutes 2x ea side Comments issued written handout hamstring curl Resistance L1 TB Reps/Minutes 5x Comments painful except for very small mid range Standing Exercises 1 Standing Exercise Name HC stretch Reps/Minutes DAGMAR Gait Training Gait Activity level gait Level of Assistance verbal cues Surface level Distance/Duration 50x 3 Comments emphasis on relaxed gait with decreased lateral sway, increased heel-toe weight , gluteal activation during stance Neuro Re-Education Treatment Balance Activities foam stand Details blue foam Reps/Duration 2 min Comments EC PT-OP-R Modalities Start: 03/30/18 14:30 Freq: Status: Active Protocol: Document 06/20/18 09:08 SAK (Rec: 06/20/18 16:52 SAK [id number]) Ultrasound Therapy Treatment right HS origin Treatment Duration (minutes) 8 Patient Position Sidelying Frequency Setting (mHz) 1 Mode Setting Pulsed Duty Cycle 50% Intensity Setting (w/cm2) 1.4 PT-OP-S Aquatic Treatment Start: 03/30/18 14:30 Freq: Status: Active Protocol: Document 05/30/18 11:00 LJ (Rec: 05/30/18 15:08 LJ [id number]) Aquatics Treatment Pool Entry/Exit Pool Entry/Exit Method Stairs Assistance Independent Water Walking Backwards Water Level Chest Level Level of Assistance Verbal Cues Comments reaching back w/foot Monster Walk Water Level Chest Level Level of Assistance Verbal Cues Marching Water Level Chest Level Walking Equipment Resistance Fins Level of Assistance Verbal Cues Sideways Water Level Chest Level Level of Assistance Verbal Cues forward Water Level Chest Level Level of Assistance Verbal Cues Comments arms in ER at sides for ant chest stretch Lower Extremity Exercises Hip flex/ex Body Position Standing Water Level Neck Level Reps/Duration 10x Lower Extremity Stretches DKTC, SKTC, free the hip Comments at wall in deep [place] Activities [place] Activities Bicycle [place] Hip Abduction/Adduction Other Activities SKTC, DKTC hacky sac heel to opposite hand posterior hip ext at wall Equipment flotation belt (L) Duration 25 PT-OP-T Assessment and Plan Start: 03/30/18 14:30 Freq: Status: Active Protocol: Document 06/20/18 09:08 [facility] (Rec: 06/20/18 09:55 [facility] [id number]) Physical Therapy Assessment Goals Two Impairment Sitting tolerance Floor Winder Goal (LTG) Patsy will sit for 30 minutes with 2/10 pain or less 06/09/18: had made good progress after women's health visit but is again having increased pain and difficulty tolerating sitting. Sees women's health PT next visit. LTG Duration 8 weeks One Impairment pelvic floor tightness Short Term Goal (STG) Patsy will be independent with a pelvic floor relaxation HEP. STG Duration MET Penitentiary Goal (LTG) Patsy will report 2/10 pain or less with palpation of obturator internus. 06/09/18: to be addressed by women's health PT next visit LTG Duration MET decreased ROM and strength left foot/ankle Impairment foot/ankle ROM and strength Penitentiary Goal (LTG) Improve left ankle ROM and strength to WNL 06/09/18: good progress, highly compliant to HEP. Recent exacerbation of increased pain and edema bilateral ankles. LTG Duration 3 months pain right foot/ankle Impairment 2/10 Penitentiary Goal (LTG) Patient able to progress with ther ex and gait and return to usual activities without pain increasing greater than 2/10 06/09/18: good progress. Limited by pelvic pain which appears due to compensatory movement strategies. LTG Duration 3 months Antalgic gait Impairment antalgic gait, using FWW, 50% WB Short Term Goal (STG) Patient will progress to 100% WB left LE without an increase in pain 06/09/18: good progress, though as above a recent exacerbation of edema and swelling. STG Duration 4 wks Penitentiary Goal (LTG) Patient able to ambulate with minimal to no limp using appropriate assistive device as needed 06/09/18: good progress, though habitual compensatory movements require further re- education and contribute to her function-limiting pelvic pain. LTG Duration 3 months Foot and Ankle Ability Measure ADL's Impairment 31% Short Term Goal (STG) Improve score to at least 50% STG Duration 4 wks Penitentiary Goal (LTG) Improve score to at least 75% LTG Duration 3 months Lower extremity functional scale Impairment 30% Short Term Goal (STG) Improve score to at least 50% STG Duration 4 wks Floor Winder Goal (LTG) Improve lower extremity functional scale to at least 70% (goal progress) LTG Duration 3 months Assessment Summary Assessment Patient has good tolerance for seated HS stretch and demonstrated good understanding. Poor tolerance for any AROM knee flex. Good progress with gait tolerance and walking mechanics. Physical Therapy Plan Frequency and Duration Frequency of Treatment 3x/Week Duration of Treatment 10 weeks Plan of Care Start Date 05/04/18 Plan of Care End Date 07/13/18 Therapeutic Interventions Therapeutic Interventions Aquatic Therapy Gait Training Home Exercise Program Manual Therapy Neuromuscular Re-education Patient/Caregiver Education Self-Care/Home Management Therapeutic Activities Therapeutic Exercises Modalities Biofeedback Cold Pack/Ice Massage Electric Stimulation Ultrasound Next Visit Focus/Plan Next Note Type Treatment Note Next Visit Plan Assess patient status, need for women's health PT, continue emphasis on core stab , gait training.
--- NOTE | 2018-07-11 12:04 | PT.OTN ---
Current Diagnoses Low back pain (07/13/18) Pelvic and perineal pain (07/13/18) Encounter for other orthopedic aftercare (07/13/18) Physical Therapy Treatment Note PT-OP-A Visit Information Start: 03/30/18 14:30 Freq: Status: Active Protocol: Document 07/11/18 09:05 [facility] (Rec: 07/13/18 15:15 [facility] [id number]) Out-Patient Physical Therapy Visit Information Visit Information Visit Type Re-Evaluation Visit Note New order received for PT for LBP. Patient reports her foot /ankle feeling pretty good but would like to switch PT emphasis to this new diagnosis of LBP. Reports onset with recent travel and now unable to find comfortable position, increased pain with movement, poor sleep. I'm miserable. Visit Start Time 09:05 Visit Stop Time 10:00 Total Visit Minutes 55 Visit Number 22 Number of DIRECTOR OF OPERATIONS FOR THERAPY Visits 0 Evaluation Information Evaluation Date 03/30/18 PT-OP-B Current Condition Start: 03/30/18 14:30 Freq: Status: Active Protocol: Document 03/30/18 14:30 [facility] (Rec: 03/30/18 15:21 [facility] [id number]) Current Condition History of Current Condition Onset Date 02/16/18 Current Complaints limited left LE function s/p left foot surgery History of Current Condition Underwent left talonavicular fusion and calcaneal autograft 02/16/18. Remained NWB for 6 wks. Now to start PT. x-ray yesterday showed good healing , patient reports less pain than before surgery. Order is for 50% WB left LE in CAM boot , then advance by 25% every 2 wks if pain controlled. When 100% in CAM boot ok to transition to normal shoe. Patient reports she sees physician 05/11/18 and he said not to use regular shoe until then. Initiate PT today, has not done exercises or weight on foot prior to today. Fell 2 weeks ago out of wheelchair hitting right anterior knee, c /o pain. Also fell 03/07/18 out of wheelchair. Uncertain if put weight on left LE to get up; not present. Needs gait training on stairs for home; rail on left going up, right going down. reports he feels patient has been putting too much weight on her foot walking with walker today. Of concern is patient's prior shoulder surgeries with concern over heavy use of walker, as well as anticipated need for surgery right foot with fear of increasing pain and dysfunction on that side with increased stress of asymmetrical weight-bearing. Prior Functional Status Baseline Function- ADL's Independent Baseline Function- Mobility Independent Baseline Function- Gait independent without device Current Functional Impairments (Reported) Functional Limitations- ADL's Mostly from wheelchair Functional Limitations- Mobility/Gait CAM boot, 50% WB left LE using FWW. Limited to transfers, very short distance household. Functional Limitations- Recreation/ unable Hobbies PT-OP-C Subjective Start: 03/30/18 14:30 Freq: Status: Active Protocol: Document 07/11/18 09:05 [facility] (Rec: 07/11/18 09:50 [facility] [id number]) OP-PT Subjective Patient Comments Patient Comments Reports right-sided LB spasms extending into posterior right leg x 2 wks. Also reports increase in numbness bilateral feet. Groin and hamstring pain on and off. Having MRI tomorrow. Has been put on higher dose Prednisone, will be finished in 3 days. Has been using heat at home, hasn' t tried ice. Can't stop the pain when lays down; can't lay on her side. Has had a disc bulge for years. Foot and ankle doing well, wants PT focus on LBP at this time. Patient Questionnaires Lower Extremity Functional Scale LEFS Score 70% Oswestry Low Back Index Oswestry Score 70% OP-PT Pain Assessment Location low back Pain Location Details gloria l/s right greater than left Intensity 8 Radiating Location posterior right LE PT-OP-F Manual Assessment Start: 03/30/18 14:30 Freq: Status: Active Protocol: Document 03/30/18 14:30 [facility] (Rec: 04/03/18 12:34 [facility] [id number]) Manual Assessments Other Manual Assessments Other Manual Assessments No increase in warmth left LE. Scar healing well with small area still open due per patient to abscess from stitch . PT-OP-G Mobility & Gait Start: 03/30/18 14:30 Freq: Status: Active Protocol: Document 03/30/18 14:30 [facility] (Rec: 04/03/18 12:34 [facility] [id number]) Stair Climbing Evaluation Evaluation Level of Assist On Stairs Contact Guard Assistance Devices Stair Climbing Assistive Devices Small Base Quad Cane Right Railing Technique/Endurance Stair Climbing Direction Ascend and Descend Stair Climbing Technique Step to Step Comments Stair Climbing Comments cues for 50% weight-bearing, sequencing PT-OP-I Pelvic Floor Start: 03/30/18 14:30 Freq: Status: Active Protocol: Document 05/04/18 14:30 [facility] (Rec: 05/04/18 16:24 [facility] [id number]) Pelvic Floor Assessment Urine Other Leakage Causes denies leaks Bowel Other Bowel Symptoms denies any bowel symptoms Pelvic Clock Pelvic Clock 3-6 Tenderness Pelvic Clock 6-9 Hypertonic Tenderness Tightness Pelvic Clock 9-12 Hypertonic Tenderness Tightness Contraction Ability Voluntary Contraction Weak Manual Muscle Testing Left 0 Manual Muscle Testing Right 0 Manual Muscle Testing Anterior 1 Manual Muscle Testing Posterior 1 PT-OP-K Range of Motion Start: 03/30/18 14:30 Freq: Status: Active Protocol: Document 03/30/18 14:30 [facility] (Rec: 04/03/18 12:34 [facility] [id number]) Knee Goniometric Range of Motion Knee Measured in Degrees gloria Knee ROM WFL Yes Ankle and Foot Goniometric Range of Motion Ankle and Foot Measured in Degrees Right Active Dorsiflexion with Knee Flexed 8 Plantarflexion 45 Inversion 30 Eversion 35 Left Ankle/Foot ROM WFL Yes Testing Position Supine Dorsiflexion with Knee Flexed 5 Dorsiflexion with Knee Extended 3 Plantarflexion 42 Inversion 10 Eversion 16 Ankle and Foot ROM Limitations ROM Limitations Soft Tissue Tightness Muscle Weakness PT-OP-M Strength Start: 03/30/18 14:30 Freq: Status: Active Protocol: Document 03/30/18 14:30 [facility] (Rec: 04/03/18 12:34 [facility] [id number]) Hip Strength Hip Manual Muscle Testing Right Reason Not Measured Pain Left Flexion (L2) 3+ Fair+ Abduction 3+ Fair+ External Rotation 3+ Fair+ Internal Rotation 3+ Fair+ Knee Strength Knee Manual Muscle Testing gloria Flexion (S2) 4 Good Extension (L3) 4 Good Ankle/Foot Strength Ankle and Foot Manual Muscle Testing Right Dorsiflexion (L4) 4 Good Plantarflexion (S1) 4 Good Inversion 4- Good- Eversion (S1) 4- Good- Left Reason Not Measured Orthopedic Precautions PT-OP-Q Treatments Start: 03/30/18 14:30 Freq: Status: Active Protocol: Document 07/11/18 09:05 [facility] (Rec: 07/13/18 15:15 [facility] [id number]) Cardio Equipment Recumbent Elliptical (Biodex) Other too much back pain Therapeutic Exercises Supine Exercises ball squeeze Comments with TrA, hooklying hip ab/ad Reps/Minutes 5x2 Comments with TrA, hooklying TrA activation Reps/Minutes 10x 1 Supine Exercise Name gluteal isometric, ball squeeze, hip ab/ER with L1TB Reps/Minutes 5x2 ea Comments with TrA Manual Therapy Treatment Manual Traction Lumbar Body Position Hooklying Reps/Duration 15 min Comments strap, 30 holds Other Other Manual Treatments assessment of LBP: ROM, strength, special tests PT-OP-R Modalities Start: 03/30/18 14:30 Freq: Status: Active Protocol: Document 07/11/18 09:05 [facility] (Rec: 07/13/18 16:34 [facility] [id number]) Electric Stimulation Electric Stimulation Interferential Current (IFC) Body Location bilateral l/s Duration (Minutes) 15 Target/Sweep Sweep Patient Position Supine Combined With Heat/Cold Cold Pack PT-OP-S Aquatic Treatment Start: 03/30/18 14:30 Freq: Status: Active Protocol: Document 05/30/18 11:00 [facility] (Rec: 05/30/18 15:08 [facility] [id number]) Aquatics Treatment Pool Entry/Exit Pool Entry/Exit Method Stairs Assistance Independent Water Walking Backwards Water Level Chest Level Level of Assistance Verbal Cues Comments reaching back w/foot Monster Walk Water Level Chest Level Level of Assistance Verbal Cues Marching Water Level Chest Level Walking Equipment Resistance Fins Level of Assistance Verbal Cues Sideways Water Level Chest Level Level of Assistance Verbal Cues forward Water Level Chest Level Level of Assistance Verbal Cues Comments arms in ER at sides for ant chest stretch Lower Extremity Exercises Hip flex/ex Body Position Standing Water Level Neck Level Reps/Duration 10x Lower Extremity Stretches DKTC, SKTC, free the hip Comments at wall in deep [place] Activities [place] Activities Bicycle [place] Hip Abduction/Adduction Other Activities SKTC, DKTC hacky sac heel to opposite hand posterior hip ext at wall Equipment flotation belt (L) Duration 25 PT-OP-T Assessment and Plan Start: 03/30/18 14:30 Freq: Status: Active Protocol: Document 07/11/18 09:05 [facility] (Rec: 07/13/18 16:34 [facility] [id number]) Physical Therapy Assessment Goals Oswestry disability index score Short Term Goal (STG) Decrease score to no greater than 40% STG Duration 08/11/18 Usp Goal (LTG) Decrease score to no greater than 20% LTG Duration 09/10/18 LBP with radicular symptoms Impairment LBP with radiucular symptoms Short Term Goal (STG) Decrease pain to no greater than 4/10 STG Duration 08/11/18 Rejected Items Clerk Goal (LTG) Decrease pain to no greater than 2/10 LTG Duration 09/10/18 Two Impairment Sitting tolerance Rejected Items Clerk Goal (LTG) Patsy will sit for 30 minutes with 2/10 pain or less 06/09/18: had made good progress after women's health visit but is again having increased pain and difficulty tolerating sitting. Sees women's health PT next visit. LTG Duration 8 weeks One Impairment pelvic floor tightness Short Term Goal (STG) Patsy will be independent with a pelvic floor relaxation HEP. STG Duration MET Usp Goal (LTG) Patsy will report 2/10 pain or less with palpation of obturator internus. 06/09/18: to be addressed by women's health PT next visit LTG Duration MET decreased ROM and strength left foot/ankle Impairment foot/ankle ROM and strength Usp Goal (LTG) Improve left ankle ROM and strength to WNL 06/09/18: good progress, highly compliant to HEP. Recent exacerbation of increased pain and edema bilateral ankles. LTG Duration MET pain right foot/ankle Impairment 2/10 Usp Goal (LTG) Patient able to progress with ther ex and gait and return to usual activities without pain increasing greater than 2/10 06/09/18: good progress. Limited by pelvic pain which appears due to compensatory movement strategies.07/11/17: goal MET LTG Duration MET Antalgic gait Impairment antalgic gait, using FWW, 50% WB Short Term Goal (STG) Patient will progress to 100% WB left LE without an increase in pain 06/09/18: good progress, though as above a recent exacerbation of edema and swelling. 07/11/18: goal MET STG Duration MET Usp Goal (LTG) Patient able to ambulate with minimal to no limp using appropriate assistive device as needed 07/11/18: limping primarily due to LBP at this time. 06/09/18: good progress, though habitual compensatory movements require further re- education and contribute to her function-limiting pelvic pain. 07/11/18: exacerbation of prior LBP from above compensatory patterns. LTG Duration 09/10/18 Foot and Ankle Ability Measure ADL's Impairment 31% Short Term Goal (STG) Improve score to at least 50% STG Duration MET Usp Goal (LTG) Improve score to at least 75% 07/11/18: 57% LTG Duration 09/10/18 Lower extremity functional scale Impairment 30% Short Term Goal (STG) Improve score to at least 50% STG Duration MET Usp Goal (LTG) Improve lower extremity functional scale to at least 70% 07/11/18: 54% Assessment Summary Assessment Patient has recent onset new LBP with radicular symptoms; has history of arthritis and stenosis but with travel as well as compensatory movements during recovery from foot surgery patient now has function-limiting LBP. Signs and symptoms consistent with L5-S1 nerve involvement. Patient having MRI tomorrow. Will benefit from PT for core strengthening and stabilization, manual therapy, modalities as needed to include manual and possible mechanical traction. Patient reported good pain relief with manual traction today. Physical Therapy Plan Frequency and Duration Frequency of Treatment 2x/Week Duration of Treatment 8 Plan of Care Start Date 07/11/18 Plan of Care End Date 09/10/18 Therapeutic Interventions Therapeutic Interventions Aquatic Therapy Gait Training Home Exercise Program Manual Therapy Neuromuscular Re-education Patient/Caregiver Education Self-Care/Home Management Therapeutic Activities Therapeutic Exercises Modalities Biofeedback Cold Pack/Ice Massage Electric Stimulation Hot Packs Traction- Mechanical Ultrasound Next Visit Focus/Plan Next Note Type Treatment Note Next Visit Plan Continue PT with emphasis now on treating LBP due to recent exacerbation. Consider mechanical traction. Gentle exercise progression focused on core strengthening and stabilization due to weakness.
--- NOTE | 2018-07-13 14:30 | PT.OTN ---
Current Diagnoses Low back pain (07/13/18) Pelvic and perineal pain (07/13/18) Encounter for other orthopedic aftercare (07/13/18) Physical Therapy Treatment Note PT-OP-A Visit Information Start: 03/30/18 14:30 Freq: Status: Active Protocol: Document 07/13/18 14:30 [facility] (Rec: 07/14/18 15:28 [facility] [id number]) Out-Patient Physical Therapy Visit Information Visit Information Visit Type Treatment Note Visit Start Time 14:30 Visit Stop Time 15:15 Total Visit Minutes 45 Visit Number 23 Number of SCARFING MACHINE OPERATOR Visits 0 Evaluation Information Evaluation Date 03/30/18 PT-OP-B Current Condition Start: 03/30/18 14:30 Freq: Status: Active Protocol: Document 03/30/18 14:30 [facility] (Rec: 03/30/18 15:21 [facility] [id number]) Current Condition History of Current Condition Onset Date 02/16/18 Current Complaints limited left LE function s/p left foot surgery History of Current Condition Underwent left talonavicular fusion and calcaneal autograft 02/16/18. Remained NWB for 6 wks. Now to start PT. x-ray yesterday showed good healing , patient reports less pain than before surgery. Order is for 50% WB left LE in CAM boot , then advance by 25% every 2 wks if pain controlled. When 100% in CAM boot ok to transition to normal shoe. Patient reports she sees physician 05/11/18 and he said not to use regular shoe until then. Initiate PT today, has not done exercises or weight on foot prior to today. Fell 2 weeks ago out of wheelchair hitting right anterior knee, c /o pain. Also fell 03/07/18 out of wheelchair. Uncertain if put weight on left LE to get up; not present. Needs gait training on stairs for home; rail on left going up, right going down. reports he feels patient has been putting too much weight on her foot walking with walker today. Of concern is patient's prior shoulder surgeries with concern over heavy use of walker, as well as anticipated need for surgery right foot with fear of increasing pain and dysfunction on that side with increased stress of asymmetrical weight-bearing. Prior Functional Status Baseline Function- ADL's Independent Baseline Function- Mobility Independent Baseline Function- Gait independent without device Current Functional Impairments (Reported) Functional Limitations- ADL's Mostly from wheelchair Functional Limitations- Mobility/Gait CAM boot, 50% WB left LE using FWW. Limited to transfers, very short distance household. Functional Limitations- Recreation/ unable Hobbies PT-OP-C Subjective Start: 03/30/18 14:30 Freq: Status: Active Protocol: Document 07/13/18 14:30 SAK (Rec: 07/14/18 15:28 SAK [id number]) OP-PT Subjective Patient Comments Patient Comments Reports decreased pain after last session, has come back some but still a little better than 5/6. PT-OP-F Manual Assessment Start: 03/30/18 14:30 Freq: Status: Active Protocol: Document 03/30/18 14:30 SAK (Rec: 04/03/18 12:34 SAK [id number]) Manual Assessments Other Manual Assessments Other Manual Assessments No increase in warmth left LE. Scar healing well with small area still open due per patient to abscess from stitch . PT-OP-G Mobility & Gait Start: 03/30/18 14:30 Freq: Status: Active Protocol: Document 03/30/18 14:30 SAK (Rec: 04/03/18 12:34 [facility] [id number]) Stair Climbing Evaluation Evaluation Level of Assist On Stairs Contact Guard Assistance Devices Stair Climbing Assistive Devices Small Base Quad Cane Right Railing Technique/Endurance Stair Climbing Direction Ascend and Descend Stair Climbing Technique Step to Step Comments Stair Climbing Comments cues for 50% weight-bearing, sequencing PT-OP-I Pelvic Floor Start: 03/30/18 14:30 Freq: Status: Active Protocol: Document 05/04/18 14:30 AMB (Rec: 05/04/18 16:24 AMB [id number]) Pelvic Floor Assessment Urine Other Leakage Causes denies leaks Bowel Other Bowel Symptoms denies any bowel symptoms Pelvic Clock Pelvic Clock 3-6 Tenderness Pelvic Clock 6-9 Hypertonic Tenderness Tightness Pelvic Clock 9-12 Hypertonic Tenderness Tightness Contraction Ability Voluntary Contraction Weak Manual Muscle Testing Left 0 Manual Muscle Testing Right 0 Manual Muscle Testing Anterior 1 Manual Muscle Testing Posterior 1 PT-OP-K Range of Motion Start: 03/30/18 14:30 Freq: Status: Active Protocol: Document 03/30/18 14:30 SAK (Rec: 04/03/18 12:34 SAK [id number]) Knee Goniometric Range of Motion Knee Measured in Degrees gloria Knee ROM WFL Yes Ankle and Foot Goniometric Range of Motion Ankle and Foot Measured in Degrees Right Active Dorsiflexion with Knee Flexed 8 Plantarflexion 45 Inversion 30 Eversion 35 Left Ankle/Foot ROM WFL Yes Testing Position Supine Dorsiflexion with Knee Flexed 5 Dorsiflexion with Knee Extended 3 Plantarflexion 42 Inversion 10 Eversion 16 Ankle and Foot ROM Limitations ROM Limitations Soft Tissue Tightness Muscle Weakness PT-OP-M Strength Start: 03/30/18 14:30 Freq: Status: Active Protocol: Document 03/30/18 14:30 [facility] (Rec: 04/03/18 12:34 [facility] [id number]) Hip Strength Hip Manual Muscle Testing Right Reason Not Measured Pain Left Flexion (L2) 3+ Fair+ Abduction 3+ Fair+ External Rotation 3+ Fair+ Internal Rotation 3+ Fair+ Knee Strength Knee Manual Muscle Testing gloria Flexion (S2) 4 Good Extension (L3) 4 Good Ankle/Foot Strength Ankle and Foot Manual Muscle Testing Right Dorsiflexion (L4) 4 Good Plantarflexion (S1) 4 Good Inversion 4- Good- Eversion (S1) 4- Good- Left Reason Not Measured Orthopedic Precautions PT-OP-Q Treatments Start: 03/30/18 14:30 Freq: Status: Active Protocol: Document 07/13/18 14:30 [facility] (Rec: 07/14/18 15:28 [facility] [id number]) Therapeutic Exercises Supine Exercises ball squeeze Comments with TrA, hooklying hip ab/ad Reps/Minutes 5x2 Comments with TrA, hooklying TrA activation Reps/Minutes 10x 1 Supine Exercise Name gluteal isometric, ball squeeze, hip ab/ER with L1TB Reps/Minutes 5x2 ea Comments with TrA PT-OP-R Modalities Start: 03/30/18 14:30 Freq: Status: Active Protocol: Document 07/13/18 14:30 [facility] (Rec: 07/14/18 15:28 [facility] [id number]) Electric Stimulation Electric Stimulation Interferential Current (IFC) Body Location bilateral l/s Duration (Minutes) 15 Target/Sweep Sweep Patient Position Supine Combined With Heat/Cold Cold Pack Spinal Traction Traction Treatment Lumbar Method Mechanical Intermittent Patient Position Hooklying Force Applied (Pounds) 75 Intermittent Time On (Seconds) 30 Intermittent Time Off (Seconds) 10 Duration of Treatment (Minutes) 15 Heating Pad Applied Yes PT-OP-S Aquatic Treatment Start: 03/30/18 14:30 Freq: Status: Active Protocol: Document 05/30/18 11:00 LJ (Rec: 05/30/18 15:08 LJ [id number]) Aquatics Treatment Pool Entry/Exit Pool Entry/Exit Method Stairs Assistance Independent Water Walking Backwards Water Level Chest Level Level of Assistance Verbal Cues Comments reaching back w/foot Monster Walk Water Level Chest Level Level of Assistance Verbal Cues Marching Water Level Chest Level Walking Equipment Resistance Fins Level of Assistance Verbal Cues Sideways Water Level Chest Level Level of Assistance Verbal Cues forward Water Level Chest Level Level of Assistance Verbal Cues Comments arms in ER at sides for ant chest stretch Lower Extremity Exercises Hip flex/ex Body Position Standing Water Level Neck Level Reps/Duration 10x Lower Extremity Stretches DKTC, SKTC, free the hip Comments at wall in deep [place] Activities [place] Activities Bicycle [place] Hip Abduction/Adduction Other Activities SKTC, DKTC hacky sac heel to opposite hand posterior hip ext at wall Equipment flotation belt (L) Duration 25 PT-OP-T Assessment and Plan Start: 03/30/18 14:30 Freq: Status: Active Protocol: Document 07/13/18 14:30 SAK (Rec: 07/14/18 15:28 SAK [id number]) Physical Therapy Assessment Goals Oswestry disability index score Short Term Goal (STG) Decrease score to no greater than 40% STG Duration 08/11/18 Performance Improvement Coordinator Goal (LTG) Decrease score to no greater than 20% LTG Duration 09/10/18 LBP with radicular symptoms Impairment LBP with radiucular symptoms 8 /10 Short Term Goal (STG) Decrease pain to no greater than 4/10 STG Duration 08/11/18 Prison Goal (LTG) Decrease pain to no greater than 2/10 LTG Duration 09/10/18 Two Impairment Sitting tolerance Prison Goal (LTG) Patsy will sit for 30 minutes with 2/10 pain or less 06/09/18: had made good progress after women's health visit but is again having increased pain and difficulty tolerating sitting. Sees women's health PT next visit. LTG Duration 8 weeks One Impairment pelvic floor tightness Short Term Goal (STG) Patsy will be independent with a pelvic floor relaxation HEP. STG Duration MET Performance Improvement Coordinator Goal (LTG) Patsy will report 2/10 pain or less with palpation of obturator internus. 06/09/18: to be addressed by women's health PT next visit LTG Duration MET decreased ROM and strength left foot/ankle Impairment foot/ankle ROM and strength Performance Improvement Coordinator Goal (LTG) Improve left ankle ROM and strength to WNL 06/09/18: good progress, highly compliant to HEP. Recent exacerbation of increased pain and edema bilateral ankles. LTG Duration MET pain right foot/ankle Impairment 2/10 Performance Improvement Coordinator Goal (LTG) Patient able to progress with ther ex and gait and return to usual activities without pain increasing greater than 2/10 06/09/18: good progress. Limited by pelvic pain which appears due to compensatory movement strategies.07/11/17: goal MET LTG Duration MET Antalgic gait Impairment antalgic gait, using FWW, 50% WB Short Term Goal (STG) Patient will progress to 100% WB left LE without an increase in pain 06/09/18: good progress, though as above a recent exacerbation of edema and swelling. 07/11/18: goal MET STG Duration MET Prison Goal (LTG) Patient able to ambulate with minimal to no limp using appropriate assistive device as needed 07/11/18: limping primarily due to LBP at this time. 06/09/18: good progress, though habitual compensatory movements require further re- education and contribute to her function-limiting pelvic pain. 07/11/18: exacerbation of prior LBP from above compensatory patterns. LTG Duration 09/10/18 Foot and Ankle Ability Measure ADL's Impairment 31% Short Term Goal (STG) Improve score to at least 50% STG Duration MET Prison Goal (LTG) Improve score to at least 75% 07/11/18: 57% LTG Duration 09/10/18 Lower extremity functional scale Impairment 30% Short Term Goal (STG) Improve score to at least 50% STG Duration MET Prison Goal (LTG) Improve lower extremity functional scale to at least 70% 07/11/18: 54% Assessment Summary Assessment Decreased pain with manual traction, trial mechanical traction today. Reported decreased pain with treatment today. Physical Therapy Plan Frequency and Duration Frequency of Treatment 2x/Week Duration of Treatment 8 Plan of Care Start Date 07/11/18 Plan of Care End Date 09/10/18 Therapeutic Interventions Therapeutic Interventions Aquatic Therapy Gait Training Home Exercise Program Manual Therapy Neuromuscular Re-education Patient/Caregiver Education Self-Care/Home Management Therapeutic Activities Therapeutic Exercises Modalities Biofeedback Cold Pack/Ice Massage Electric Stimulation Hot Packs Traction- Mechanical Ultrasound Next Visit Focus/Plan Next Note Type Treatment Note Next Visit Plan Continue mechanical traction as needed for pain and symptom management, gentle progression of core stabilization and strengthening exercises.
--- NOTE | 2018-07-21 11:50 | PT.OTN ---
Current Diagnoses Encounter for other orthopedic aftercare (07/21/18) Physical Therapy Treatment Note PT-OP-A Visit Information Start: 03/30/18 14:30 Freq: Status: Active Protocol: Document 07/21/18 09:49 [facility] (Rec: 07/21/18 11:48 [facility] [id number]) Out-Patient Physical Therapy Visit Information Visit Information Visit Type Treatment Note Visit Start Time 09:45 Visit Stop Time 10:38 Total Visit Minutes 45 Visit Number 24 Number of BODY WORKER Visits 0 Evaluation Information Evaluation Date 03/30/18 PT-OP-B Current Condition Start: 03/30/18 14:30 Freq: Status: Active Protocol: Document 03/30/18 14:30 SAK (Rec: 03/30/18 15:21 SAK [id number]) Current Condition History of Current Condition Onset Date 02/16/18 Current Complaints limited left LE function s/p left foot surgery History of Current Condition Underwent left talonavicular fusion and calcaneal autograft 02/16/18. Remained NWB for 6 wks. Now to start PT. x-ray yesterday showed good healing , patient reports less pain than before surgery. Order is for 50% WB left LE in CAM boot , then advance by 25% every 2 wks if pain controlled. When 100% in CAM boot ok to transition to normal shoe. Patient reports she sees physician 05/11/18 and he said not to use regular shoe until then. Initiate PT today, has not done exercises or weight on foot prior to today. Fell 2 weeks ago out of wheelchair hitting right anterior knee, c /o pain. Also fell 03/07/18 out of wheelchair. Uncertain if put weight on left LE to get up; not present. Needs gait training on stairs for home; rail on left going up, right going down. reports he feels patient has been putting too much weight on her foot walking with walker today. Of concern is patient's prior shoulder surgeries with concern over heavy use of walker, as well as anticipated need for surgery right foot with fear of increasing pain and dysfunction on that side with increased stress of asymmetrical weight-bearing. Prior Functional Status Baseline Function- ADL's Independent Baseline Function- Mobility Independent Baseline Function- Gait independent without device Current Functional Impairments (Reported) Functional Limitations- ADL's Mostly from wheelchair Functional Limitations- Mobility/Gait CAM boot, 50% WB left LE using FWW. Limited to transfers, very short distance household. Functional Limitations- Recreation/ unable Hobbies PT-OP-C Subjective Start: 03/30/18 14:30 Freq: Status: Active Protocol: Document 07/21/18 09:49 SAK (Rec: 07/21/18 11:48 SAK [id number]) OP-PT Subjective Patient Comments Patient Comments LBpain after last PT session. Being referred to surgeon and also physical therapy assistant instructor at , potential injection which has been helpful in the past. . Saw store management trainee yesterday, will continue to stay off RA medications due to WBC low, staying on Prednisone 5 mg alternating with 2.5mg. No pain in feet. PT-OP-F Manual Assessment Start: 03/30/18 14:30 Freq: Status: Active Protocol: Document 03/30/18 14:30 SAK (Rec: 04/03/18 12:34 [facility] [id number]) Manual Assessments Other Manual Assessments Other Manual Assessments No increase in warmth left LE. Scar healing well with small area still open due per patient to abscess from stitch . PT-OP-G Mobility & Gait Start: 03/30/18 14:30 Freq: Status: Active Protocol: Document 03/30/18 14:30 SAK (Rec: 04/03/18 12:34 [facility] [id number]) Stair Climbing Evaluation Evaluation Level of Assist On Stairs Contact Guard Assistance Devices Stair Climbing Assistive Devices Small Base Quad Cane Right Railing Technique/Endurance Stair Climbing Direction Ascend and Descend Stair Climbing Technique Step to Step Comments Stair Climbing Comments cues for 50% weight-bearing, sequencing PT-OP-I Pelvic Floor Start: 03/30/18 14:30 Freq: Status: Active Protocol: Document 05/04/18 14:30 AMB (Rec: 05/04/18 16:24 AMB [id number]) Pelvic Floor Assessment Urine Other Leakage Causes denies leaks Bowel Other Bowel Symptoms denies any bowel symptoms Pelvic Clock Pelvic Clock 3-6 Tenderness Pelvic Clock 6-9 Hypertonic Tenderness Tightness Pelvic Clock 9-12 Hypertonic Tenderness Tightness Contraction Ability Voluntary Contraction Weak Manual Muscle Testing Left 0 Manual Muscle Testing Right 0 Manual Muscle Testing Anterior 1 Manual Muscle Testing Posterior 1 PT-OP-K Range of Motion Start: 03/30/18 14:30 Freq: Status: Active Protocol: Document 03/30/18 14:30 [facility] (Rec: 04/03/18 12:34 [facility] [id number]) Knee Goniometric Range of Motion Knee Measured in Degrees gloria Knee ROM WFL Yes Ankle and Foot Goniometric Range of Motion Ankle and Foot Measured in Degrees Right Active Dorsiflexion with Knee Flexed 8 Plantarflexion 45 Inversion 30 Eversion 35 Left Ankle/Foot ROM WFL Yes Testing Position Supine Dorsiflexion with Knee Flexed 5 Dorsiflexion with Knee Extended 3 Plantarflexion 42 Inversion 10 Eversion 16 Ankle and Foot ROM Limitations ROM Limitations Soft Tissue Tightness Muscle Weakness PT-OP-M Strength Start: 03/30/18 14:30 Freq: Status: Active Protocol: Document 03/30/18 14:30 [facility] (Rec: 04/03/18 12:34 [facility] [id number]) Hip Strength Hip Manual Muscle Testing Right Reason Not Measured Pain Left Flexion (L2) 3+ Fair+ Abduction 3+ Fair+ External Rotation 3+ Fair+ Internal Rotation 3+ Fair+ Knee Strength Knee Manual Muscle Testing gloria Flexion (S2) 4 Good Extension (L3) 4 Good Ankle/Foot Strength Ankle and Foot Manual Muscle Testing Right Dorsiflexion (L4) 4 Good Plantarflexion (S1) 4 Good Inversion 4- Good- Eversion (S1) 4- Good- Left Reason Not Measured Orthopedic Precautions PT-OP-Q Treatments Start: 03/30/18 14:30 Freq: Status: Active Protocol: Document 07/21/18 09:49 [facility] (Rec: 07/21/18 11:48 [facility] [id number]) Therapeutic Exercises Sitting Exercises march Reps/Minutes 4x Comments during movement on bed, cues for TrA, push through opp LE Manual Therapy Treatment Soft Tissue Mobilization right lumbar paraspinals Mobilization Type Myofascial Release Rolling Body Position Sidelying right piriformis Mobilization Type Sustained Pressure Trigger Point Release Body Position left sidelying Manual Traction Lumbar Body Position Hooklying Reps/Duration 15 min Comments strap, 30 holds Self-Care/Home Management Treatment Activities Self-Care/Home Management Activities use of tennis ball for deep pressure, muscle release. PT-OP-R Modalities Start: 03/30/18 14:30 Freq: Status: Active Protocol: Document 07/21/18 09:49 [facility] (Rec: 07/21/18 11:48 [facility] [id number]) Ultrasound Therapy Treatment right lumbar paraspinals, piriformis Patient Position Sidelying Frequency Setting (mHz) 1 Mode Setting Pulsed Duty Cycle 50% Intensity Setting (w/cm2) 1.5 PT-OP-S Aquatic Treatment Start: 03/30/18 14:30 Freq: Status: Active Protocol: Document 05/30/18 11:00 LJ (Rec: 05/30/18 15:08 LJ [id number]) Aquatics Treatment Pool Entry/Exit Pool Entry/Exit Method Stairs Assistance Independent Water Walking Backwards Water Level Chest Level Level of Assistance Verbal Cues Comments reaching back w/foot Monster Walk Water Level Chest Level Level of Assistance Verbal Cues Marching Water Level Chest Level Walking Equipment Resistance Fins Level of Assistance Verbal Cues Sideways Water Level Chest Level Level of Assistance Verbal Cues forward Water Level Chest Level Level of Assistance Verbal Cues Comments arms in ER at sides for ant chest stretch Lower Extremity Exercises Hip flex/ex Body Position Standing Water Level Neck Level Reps/Duration 10x Lower Extremity Stretches DKTC, SKTC, free the hip Comments at wall in deep [place] Activities Bow[place] Activities Bicycle [place] Hip Abduction/Adduction Other Activities SKTC, DKTC hacky sac heel to opposite hand posterior hip ext at wall Equipment flotation belt (L) Duration 25 PT-OP-T Assessment and Plan Start: 03/30/18 14:30 Freq: Status: Active Protocol: Document 07/21/18 09:49 [facility] (Rec: 07/21/18 11:48 [facility] [id number]) Physical Therapy Assessment Goals Oswestry disability index score Short Term Goal (STG) Decrease score to no greater than 40% STG Duration 08/11/18 Group Home Goal (LTG) Decrease score to no greater than 20% LTG Duration 09/10/18 LBP with radicular symptoms Impairment LBP with radiucular symptoms 8 /10 Short Term Goal (STG) Decrease pain to no greater than 4/10 STG Duration 08/11/18 Digital Traffic Coordinator Goal (LTG) Decrease pain to no greater than 2/10 LTG Duration 09/10/18 Two Impairment Sitting tolerance Group Home Goal (LTG) Patsy will sit for 30 minutes with 2/10 pain or less 06/09/18: had made good progress after women's health visit but is again having increased pain and difficulty tolerating sitting. Sees women's health PT next visit. LTG Duration 8 weeks One Impairment pelvic floor tightness Short Term Goal (STG) Patsy will be independent with a pelvic floor relaxation HEP. STG Duration MET Group Home Goal (LTG) Patsy will report 2/10 pain or less with palpation of obturator internus. 06/09/18: to be addressed by women's health PT next visit LTG Duration MET decreased ROM and strength left foot/ankle Impairment foot/ankle ROM and strength Digital Traffic Coordinator Goal (LTG) Improve left ankle ROM and strength to WNL 06/09/18: good progress, highly compliant to HEP. Recent exacerbation of increased pain and edema bilateral ankles. LTG Duration MET pain right foot/ankle Impairment 2/10 Digital Traffic Coordinator Goal (LTG) Patient able to progress with ther ex and gait and return to usual activities without pain increasing greater than 2/10 06/09/18: good progress. Limited by pelvic pain which appears due to compensatory movement strategies.07/11/17: goal MET LTG Duration MET Antalgic gait Impairment antalgic gait, using FWW, 50% WB Short Term Goal (STG) Patient will progress to 100% WB left LE without an increase in pain 06/09/18: good progress, though as above a recent exacerbation of edema and swelling. 07/11/18: goal MET STG Duration MET Group Home Goal (LTG) Patient able to ambulate with minimal to no limp using appropriate assistive device as needed 07/11/18: limping primarily due to LBP at this time. 06/09/18: good progress, though habitual compensatory movements require further re- education and contribute to her function-limiting pelvic pain. 07/11/18: exacerbation of prior LBP from above compensatory patterns. LTG Duration 09/10/18 Foot and Ankle Ability Measure ADL's Impairment 31% Short Term Goal (STG) Improve score to at least 50% STG Duration MET Group Home Goal (LTG) Improve score to at least 75% 07/11/18: 57% LTG Duration 09/10/18 Lower extremity functional scale Impairment 30% Short Term Goal (STG) Improve score to at least 50% STG Duration MET Group Home Goal (LTG) Improve lower extremity functional scale to at least 70% 07/11/18: 54% Assessment Summary Assessment Increased pain with mechanical traction, may benefit at lower weight but returned to manual traction today due to prior good benefit. Palpable tightness right piriformis today, patient instructed in use of tennis ball for deep pressure muscle release. Physical Therapy Plan Frequency and Duration Frequency of Treatment 2x/Week Duration of Treatment 8 Plan of Care Start Date 07/11/18 Plan of Care End Date 09/10/18 Therapeutic Interventions Therapeutic Interventions Aquatic Therapy Gait Training Home Exercise Program Manual Therapy Neuromuscular Re-education Patient/Caregiver Education Self-Care/Home Management Therapeutic Activities Therapeutic Exercises Modalities Biofeedback Cold Pack/Ice Massage Electric Stimulation Hot Packs Traction- Mechanical Ultrasound Next Visit Focus/Plan Next Note Type Treatment Note Next Visit Plan Continue manual traction and other manual techniques as needed for pain and symptom management, assess pelvic alignment, gentle progression of core stabilization and strengthening exercises.
--- NOTE | 2018-07-25 09:22 | PT.OTN ---
Current Diagnoses Encounter for other orthopedic aftercare (07/25/18) Physical Therapy Treatment Note PT-OP-A Visit Information Start: 03/30/18 14:30 Freq: Status: Active Protocol: Document 07/25/18 08:17 [facility] (Rec: 07/25/18 09:22 [facility] [id number]) Out-Patient Physical Therapy Visit Information Visit Information Visit Type Treatment Note Visit Start Time 08:15 Visit Stop Time 09:10 Total Visit Minutes 55 Visit Number 25 Number of PHYSICIAN VICE PRESIDENT Visits 0 PT-OP-B Current Condition Start: 03/30/18 14:30 Freq: Status: Active Protocol: Document 03/30/18 14:30 SAK (Rec: 03/30/18 15:21 SAK [id number]) Current Condition History of Current Condition Onset Date 02/16/18 Current Complaints limited left LE function s/p left foot surgery History of Current Condition Underwent left talonavicular fusion and calcaneal autograft 02/16/18. Remained NWB for 6 wks. Now to start PT. x-ray yesterday showed good healing , patient reports less pain than before surgery. Order is for 50% WB left LE in CAM boot , then advance by 25% every 2 wks if pain controlled. When 100% in CAM boot ok to transition to normal shoe. Patient reports she sees physician 05/11/18 and he said not to use regular shoe until then. Initiate PT today, has not done exercises or weight on foot prior to today. Fell 2 weeks ago out of wheelchair hitting right anterior knee, c /o pain. Also fell 03/07/18 out of wheelchair. Uncertain if put weight on left LE to get up; not present. Needs gait training on stairs for home; rail on left going up, right going down. reports he feels patient has been putting too much weight on her foot walking with walker today. Of concern is patient's prior shoulder surgeries with concern over heavy use of walker, as well as anticipated need for surgery right foot with fear of increasing pain and dysfunction on that side with increased stress of asymmetrical weight-bearing. Prior Functional Status Baseline Function- ADL's Independent Baseline Function- Mobility Independent Baseline Function- Gait independent without device Current Functional Impairments (Reported) Functional Limitations- ADL's Mostly from wheelchair Functional Limitations- Mobility/Gait CAM boot, 50% WB left LE using FWW. Limited to transfers, very short distance household. Functional Limitations- Recreation/ unable Hobbies PT-OP-C Subjective Start: 03/30/18 14:30 Freq: Status: Active Protocol: Document 07/25/18 08:17 [facility] (Rec: 07/25/18 09:22 [facility] [id number]) OP-PT Subjective Patient Comments Patient Comments Pt reports pain with any sedentary activity. PT-OP-F Manual Assessment Start: 03/30/18 14:30 Freq: Status: Active Protocol: Document 03/30/18 14:30 SAK (Rec: 04/03/18 12:34 SAK [id number]) Manual Assessments Other Manual Assessments Other Manual Assessments No increase in warmth left LE. Scar healing well with small area still open due per patient to abscess from stitch . PT-OP-G Mobility & Gait Start: 03/30/18 14:30 Freq: Status: Active Protocol: Document 03/30/18 14:30 SAK (Rec: 04/03/18 12:34 SAK [id number]) Stair Climbing Evaluation Evaluation Level of Assist On Stairs Contact Guard Assistance Devices Stair Climbing Assistive Devices Small Base Quad Cane Right Railing Technique/Endurance Stair Climbing Direction Ascend and Descend Stair Climbing Technique Step to Step Comments Stair Climbing Comments cues for 50% weight-bearing, sequencing PT-OP-I Pelvic Floor Start: 03/30/18 14:30 Freq: Status: Active Protocol: Document 05/04/18 14:30 AMB (Rec: 05/04/18 16:24 AMB [id number]) Pelvic Floor Assessment Urine Other Leakage Causes denies leaks Bowel Other Bowel Symptoms denies any bowel symptoms Pelvic Clock Pelvic Clock 3-6 Tenderness Pelvic Clock 6-9 Hypertonic Tenderness Tightness Pelvic Clock 9-12 Hypertonic Tenderness Tightness Contraction Ability Voluntary Contraction Weak Manual Muscle Testing Left 0 Manual Muscle Testing Right 0 Manual Muscle Testing Anterior 1 Manual Muscle Testing Posterior 1 PT-OP-K Range of Motion Start: 03/30/18 14:30 Freq: Status: Active Protocol: Document 03/30/18 14:30 SAK (Rec: 04/03/18 12:34 SAK [id number]) Knee Goniometric Range of Motion Knee Measured in Degrees gloria Knee ROM WFL Yes Ankle and Foot Goniometric Range of Motion Ankle and Foot Measured in Degrees Right Active Dorsiflexion with Knee Flexed 8 Plantarflexion 45 Inversion 30 Eversion 35 Left Ankle/Foot ROM WFL Yes Testing Position Supine Dorsiflexion with Knee Flexed 5 Dorsiflexion with Knee Extended 3 Plantarflexion 42 Inversion 10 Eversion 16 Ankle and Foot ROM Limitations ROM Limitations Soft Tissue Tightness Muscle Weakness PT-OP-M Strength Start: 03/30/18 14:30 Freq: Status: Active Protocol: Document 03/30/18 14:30 [facility] (Rec: 04/03/18 12:34 [facility] [id number]) Hip Strength Hip Manual Muscle Testing Right Reason Not Measured Pain Left Flexion (L2) 3+ Fair+ Abduction 3+ Fair+ External Rotation 3+ Fair+ Internal Rotation 3+ Fair+ Knee Strength Knee Manual Muscle Testing gloria Flexion (S2) 4 Good Extension (L3) 4 Good Ankle/Foot Strength Ankle and Foot Manual Muscle Testing Right Dorsiflexion (L4) 4 Good Plantarflexion (S1) 4 Good Inversion 4- Good- Eversion (S1) 4- Good- Left Reason Not Measured Orthopedic Precautions PT-OP-Q Treatments Start: 03/30/18 14:30 Freq: Status: Active Protocol: Document 07/25/18 08:17 [facility] (Rec: 07/25/18 09:22 [facility] [id number]) Therapeutic Exercises Supine Exercises pelvic tilts Supine Exercise Name tilt & clock Reps/Minutes 5 ea LTR Supine Exercise Name comfortable range Side bilateral Reps/Minutes 10 Comments focus on core stretch Supine Exercise Name SKTC, HS, piriformis, figure 4 Side right Reps/Minutes 1 min holds ea Manual Therapy Treatment Soft Tissue Mobilization right piriformis Mobilization Type Sustained Pressure Trigger Point Release Body Position left sidelying PT-OP-R Modalities Start: 03/30/18 14:30 Freq: Status: Active Protocol: Document 07/25/18 08:17 [facility] (Rec: 07/25/18 09:22 [facility] [id number]) Electric Stimulation Electric Stimulation Interferential Current (IFC) Body Location bilateral l/s Duration (Minutes) 15 Target/Sweep Sweep Patient Position Supine Combined With Heat/Cold Cold Pack Ultrasound Therapy Treatment right lumbar paraspinals, piriformis Patient Position Sidelying Frequency Setting (mHz) 1 Mode Setting Pulsed Duty Cycle 50% Intensity Setting (w/cm2) 1.5 PT-OP-S Aquatic Treatment Start: 03/30/18 14:30 Freq: Status: Active Protocol: Document 05/30/18 11:00 LJ (Rec: 05/30/18 15:08 LJ [id number]) Aquatics Treatment Pool Entry/Exit Pool Entry/Exit Method Stairs Assistance Independent Water Walking Backwards Water Level Chest Level Level of Assistance Verbal Cues Comments reaching back w/foot Monster Walk Water Level Chest Level Level of Assistance Verbal Cues Marching Water Level Chest Level Walking Equipment Resistance Fins Level of Assistance Verbal Cues Sideways Water Level Chest Level Level of Assistance Verbal Cues forward Water Level Chest Level Level of Assistance Verbal Cues Comments arms in ER at sides for ant chest stretch Lower Extremity Exercises Hip flex/ex Body Position Standing Water Level Neck Level Reps/Duration 10x Lower Extremity Stretches DKTC, SKTC, free the hip Comments at wall in deep [place] Activities [place] Activities Bicycle Cross [place] Hip Abduction/Adduction Other Activities SKTC, DKTC hacky sac heel to opposite hand posterior hip ext at wall Equipment flotation belt (L) Duration 25 PT-OP-T Assessment and Plan Start: 03/30/18 14:30 Freq: Status: Active Protocol: Document 07/25/18 08:17 [facility] (Rec: 07/25/18 09:22 [facility] [id number]) Physical Therapy Assessment Goals Oswestry disability index score Short Term Goal (STG) Decrease score to no greater than 40% STG Duration 08/11/18 Detention Goal (LTG) Decrease score to no greater than 20% LTG Duration 09/10/18 LBP with radicular symptoms Impairment LBP with radiucular symptoms 8 /10 Short Term Goal (STG) Decrease pain to no greater than 4/10 STG Duration 08/11/18 Detention Goal (LTG) Decrease pain to no greater than 2/10 LTG Duration 09/10/18 Two Impairment Sitting tolerance Tavern Keeper Goal (LTG) Patsy will sit for 30 minutes with 2/10 pain or less 06/09/18: had made good progress after women's health visit but is again having increased pain and difficulty tolerating sitting. Sees women's health PT next visit. LTG Duration 8 weeks One Impairment pelvic floor tightness Short Term Goal (STG) Patsy will be independent with a pelvic floor relaxation HEP. STG Duration MET Tavern Keeper Goal (LTG) Patsy will report 2/10 pain or less with palpation of obturator internus. 06/09/18: to be addressed by women's health PT next visit LTG Duration MET decreased ROM and strength left foot/ankle Impairment foot/ankle ROM and strength Tavern Keeper Goal (LTG) Improve left ankle ROM and strength to WNL 06/09/18: good progress, highly compliant to HEP. Recent exacerbation of increased pain and edema bilateral ankles. LTG Duration MET pain right foot/ankle Impairment 2 Detention Goal (LTG) Patient able to progress with ther ex and gait and return to usual activities without pain increasing greater than 2/10 06/09/18: good progress. Limited by pelvic pain which appears due to compensatory movement strategies.07/11/17: goal MET LTG Duration MET Antalgic gait Impairment antalgic gait, using FWW, 50% WB Short Term Goal (STG) Patient will progress to 100% WB left LE without an increase in pain 06/09/18: good progress, though as above a recent exacerbation of edema and swelling. 07/11/18: goal MET STG Duration MET Tavern Keeper Goal (LTG) Patient able to ambulate with minimal to no limp using appropriate assistive device as needed 07/11/18: limping primarily due to LBP at this time. 06/09/18: good progress, though habitual compensatory movements require further re- education and contribute to her function-limiting pelvic pain. 07/11/18: exacerbation of prior LBP from above compensatory patterns. LTG Duration 09/10/18 Foot and Ankle Ability Measure ADL's Impairment 31% Short Term Goal (STG) Improve score to at least 50% STG Duration MET Tavern Keeper Goal (LTG) Improve score to at least 75% 07/11/18: 57% LTG Duration 09/10/18 Lower extremity functional scale Impairment 30% Short Term Goal (STG) Improve score to at least 50% STG Duration MET Tavern Keeper Goal (LTG) Improve lower extremity functional scale to at least 70% 07/11/18: 54% Assessment Summary Assessment Pt able to tolerate exercises without inc pain. She has significant resistriction in piriformis which imporves with STM. She is educated on imnportance of ice, exercise and movement at home. Physical Therapy Plan Frequency and Duration Frequency of Treatment 2x/Week Duration of Treatment 8 Plan of Care Start Date 07/11/18 Plan of Care End Date 09/10/18 Next Visit Focus/Plan Next Note Type Treatment Note Next Visit Plan PNF for rolling; discuss sleeping position
--- NOTE | 2018-07-28 11:25 | PT.OTN ---
Current Diagnoses Encounter for other orthopedic aftercare (07/28/18) Physical Therapy Treatment Note PT-OP-A Visit Information Start: 03/30/18 14:30 Freq: Status: Active Protocol: Document 07/28/18 09:14 [facility] (Rec: 07/28/18 11:25 [facility] [id number]) Out-Patient Physical Therapy Visit Information Visit Information Visit Type Treatment Note Visit Start Time 09:45 Visit Stop Time 10:50 Total Visit Minutes 55 Visit Number 26 Number of INSTALLER SOFT TOP Visits 0 PT-OP-B Current Condition Start: 03/30/18 14:30 Freq: Status: Active Protocol: Document 03/30/18 14:30 SAK (Rec: 03/30/18 15:21 SAK [id number]) Current Condition History of Current Condition Onset Date 02/16/18 Current Complaints limited left LE function s/p left foot surgery History of Current Condition Underwent left talonavicular fusion and calcaneal autograft 02/16/18. Remained NWB for 6 wks. Now to start PT. x-ray yesterday showed good healing , patient reports less pain than before surgery. Order is for 50% WB left LE in CAM boot , then advance by 25% every 2 wks if pain controlled. When 100% in CAM boot ok to transition to normal shoe. Patient reports she sees physician 05/11/18 and he said not to use regular shoe until then. Initiate PT today, has not done exercises or weight on foot prior to today. Fell 2 weeks ago out of wheelchair hitting right anterior knee, c /o pain. Also fell 03/07/18 out of wheelchair. Uncertain if put weight on left LE to get up; not present. Needs gait training on stairs for home; rail on left going up, right going down. reports he feels patient has been putting too much weight on her foot walking with walker today. Of concern is patient's prior shoulder surgeries with concern over heavy use of walker, as well as anticipated need for surgery right foot with fear of increasing pain and dysfunction on that side with increased stress of asymmetrical weight-bearing. Prior Functional Status Baseline Function- ADL's Independent Baseline Function- Mobility Independent Baseline Function- Gait independent without device Current Functional Impairments (Reported) Functional Limitations- ADL's Mostly from wheelchair Functional Limitations- Mobility/Gait CAM boot, 50% WB left LE using FWW. Limited to transfers, very short distance household. Functional Limitations- Recreation/ unable Hobbies PT-OP-C Subjective Start: 03/30/18 14:30 Freq: Status: Active Protocol: Document 07/28/18 09:14 LR (Rec: 07/28/18 11:25 [facility] [id number]) OP-PT Subjective Patient Comments Patient Comments Reports she felt great after last session, but notes after traveling to [place] for MD appt, she had a lot of pain from the car. Reports sleeping is a big problem. In 2 weeks, she will be getting an injection and be seeing surgeon at [place]. Reports stretches felt good at home. PT-OP-F Manual Assessment Start: 03/30/18 14:30 Freq: Status: Active Protocol: Document 03/30/18 14:30 SAK (Rec: 04/03/18 12:34 SAK [id number]) Manual Assessments Other Manual Assessments Other Manual Assessments No increase in warmth left LE. Scar healing well with small area still open due per patient to abscess from stitch . PT-OP-G Mobility & Gait Start: 03/30/18 14:30 Freq: Status: Active Protocol: Document 03/30/18 14:30 SAK (Rec: 04/03/18 12:34 SAK [id number]) Stair Climbing Evaluation Evaluation Level of Assist On Stairs Contact Guard Assistance Devices Stair Climbing Assistive Devices Small Base Quad Cane Right Railing Technique/Endurance Stair Climbing Direction Ascend and Descend Stair Climbing Technique Step to Step Comments Stair Climbing Comments cues for 50% weight-bearing, sequencing PT-OP-I Pelvic Floor Start: 03/30/18 14:30 Freq: Status: Active Protocol: Document 05/04/18 14:30 AMB (Rec: 05/04/18 16:24 AMB [id number]) Pelvic Floor Assessment Urine Other Leakage Causes denies leaks Bowel Other Bowel Symptoms denies any bowel symptoms Pelvic Clock Pelvic Clock 3-6 Tenderness Pelvic Clock 6-9 Hypertonic Tenderness Tightness Pelvic Clock 9-12 Hypertonic Tenderness Tightness Contraction Ability Voluntary Contraction Weak Manual Muscle Testing Left 0 Manual Muscle Testing Right 0 Manual Muscle Testing Anterior 1 Manual Muscle Testing Posterior 1 PT-OP-K Range of Motion Start: 03/30/18 14:30 Freq: Status: Active Protocol: Document 03/30/18 14:30 SAK (Rec: 04/03/18 12:34 [facility] [id number]) Knee Goniometric Range of Motion Knee Measured in Degrees gloria Knee ROM WFL Yes Ankle and Foot Goniometric Range of Motion Ankle and Foot Measured in Degrees Right Active Dorsiflexion with Knee Flexed 8 Plantarflexion 45 Inversion 30 Eversion 35 Left Ankle/Foot ROM WFL Yes Testing Position Supine Dorsiflexion with Knee Flexed 5 Dorsiflexion with Knee Extended 3 Plantarflexion 42 Inversion 10 Eversion 16 Ankle and Foot ROM Limitations ROM Limitations Soft Tissue Tightness Muscle Weakness PT-OP-M Strength Start: 03/30/18 14:30 Freq: Status: Active Protocol: Document 03/30/18 14:30 [facility] (Rec: 04/03/18 12:34 [facility] [id number]) Hip Strength Hip Manual Muscle Testing Right Reason Not Measured Pain Left Flexion (L2) 3+ Fair+ Abduction 3+ Fair+ External Rotation 3+ Fair+ Internal Rotation 3+ Fair+ Knee Strength Knee Manual Muscle Testing gloria Flexion (S2) 4 Good Extension (L3) 4 Good Ankle/Foot Strength Ankle and Foot Manual Muscle Testing Right Dorsiflexion (L4) 4 Good Plantarflexion (S1) 4 Good Inversion 4- Good- Eversion (S1) 4- Good- Left Reason Not Measured Orthopedic Precautions PT-OP-Q Treatments Start: 03/30/18 14:30 Freq: Status: Active Protocol: Document 07/28/18 09:14 [facility] (Rec: 07/28/18 11:25 [facility] [id number]) Therapeutic Activity Therapeutic Activity sleep Name s/l and supine sleeping position Manual Therapy Treatment Soft Tissue Mobilization 3 Body Location R glutes Mobilization Type Rolling Intensity/Depth Moderate Neuro Re-Education Treatment Other Activities PNF Details ant elevation Comments rhythmic initiation & sustained holds then mass flex w/ rolling PT-OP-R Modalities Start: 03/30/18 14:30 Freq: Status: Active Protocol: Document 07/28/18 09:14 [facility] (Rec: 07/28/18 11:25 [facility] [id number]) Electric Stimulation Electric Stimulation Interferential Current (IFC) Body Location bilateral l/s Duration (Minutes) 15 Target/Sweep Sweep Patient Position Supine Combined With Heat/Cold Cold Pack Ultrasound Therapy Treatment right lumbar paraspinals, piriformis Treatment Duration (minutes) 8 Patient Position Sidelying Frequency Setting (mHz) 1 Mode Setting Pulsed Duty Cycle 50% Intensity Setting (w/cm2) 1.5 PT-OP-S Aquatic Treatment Start: 03/30/18 14:30 Freq: Status: Active Protocol: Document 05/30/18 11:00 LJ (Rec: 05/30/18 15:08 LJ [id number]) Aquatics Treatment Pool Entry/Exit Pool Entry/Exit Method Stairs Assistance Independent Water Walking Backwards Water Level Chest Level Level of Assistance Verbal Cues Comments reaching back w/foot Monster Walk Water Level Chest Level Level of Assistance Verbal Cues Marching Water Level Chest Level Walking Equipment Resistance Fins Level of Assistance Verbal Cues Sideways Water Level Chest Level Level of Assistance Verbal Cues forward Water Level Chest Level Level of Assistance Verbal Cues Comments arms in ER at sides for ant chest stretch Lower Extremity Exercises Hip flex/ex Body Position Standing Water Level Neck Level Reps/Duration 10x Lower Extremity Stretches DKTC, SKTC, free the hip Comments at wall in deep [place] Activities [place] Activities Bicycle [place] Hip Abduction/Adduction Other Activities SKTC, DKTC hacky sac heel to opposite hand posterior hip ext at wall Equipment flotation belt (L) Duration 25 PT-OP-T Assessment and Plan Start: 03/30/18 14:30 Freq: Status: Active Protocol: Document 07/28/18 09:14 [facility] (Rec: 07/28/18 11:25 [facility] [id number]) Physical Therapy Assessment Goals Oswestry disability index score Short Term Goal (STG) Decrease score to no greater than 40% STG Duration 08/11/18 Military Technology Specialist Goal (LTG) Decrease score to no greater than 20% LTG Duration 09/10/18 LBP with radicular symptoms Impairment LBP with radiucular symptoms 8 /10 Short Term Goal (STG) Decrease pain to no greater than 4/10 STG Duration 08/11/18 Military Technology Specialist Goal (LTG) Decrease pain to no greater than 2/10 LTG Duration 09/10/18 Two Impairment Sitting tolerance Skilled Nursing Goal (LTG) Patsy will sit for 30 minutes with 2/10 pain or less 06/09/18: had made good progress after women's health visit but is again having increased pain and difficulty tolerating sitting. Sees women's health PT next visit. LTG Duration 8 weeks One Impairment pelvic floor tightness Short Term Goal (STG) Patsy will be independent with a pelvic floor relaxation HEP. STG Duration MET Military Technology Specialist Goal (LTG) Patsy will report 2/10 pain or less with palpation of obturator internus. 06/09/18: to be addressed by women's health PT next visit LTG Duration MET decreased ROM and strength left foot/ankle Impairment foot/ankle ROM and strength Military Technology Specialist Goal (LTG) Improve left ankle ROM and strength to WNL 06/09/18: good progress, highly compliant to HEP. Recent exacerbation of increased pain and edema bilateral ankles. LTG Duration MET pain right foot/ankle Impairment 2/10 Skilled Nursing Goal (LTG) Patient able to progress with ther ex and gait and return to usual activities without pain increasing greater than 2/10 06/09/18: good progress. Limited by pelvic pain which appears due to compensatory movement strategies.07/11/17: goal MET LTG Duration MET Antalgic gait Impairment antalgic gait, using FWW, 50% WB Short Term Goal (STG) Patient will progress to 100% WB left LE without an increase in pain 06/09/18: good progress, though as above a recent exacerbation of edema and swelling. 07/11/18: goal MET STG Duration MET Skilled Nursing Goal (LTG) Patient able to ambulate with minimal to no limp using appropriate assistive device as needed 07/11/18: limping primarily due to LBP at this time. 06/09/18: good progress, though habitual compensatory movements require further re- education and contribute to her function-limiting pelvic pain. 07/11/18: exacerbation of prior LBP from above compensatory patterns. LTG Duration 09/10/18 Foot and Ankle Ability Measure ADL's Impairment 31% Short Term Goal (STG) Improve score to at least 50% STG Duration MET Skilled Nursing Goal (LTG) Improve score to at least 75% 07/11/18: 57% LTG Duration 09/10/18 Lower extremity functional scale Impairment 30% Short Term Goal (STG) Improve score to at least 50% STG Duration MET Skilled Nursing Goal (LTG) Improve lower extremity functional scale to at least 70% 07/11/18: 54% Assessment Summary Assessment Pt was able to improve rolling performance w/slow progression of PNF. She noted significant relief in s/l and supine positioning and relief w/STM. Physical Therapy Plan Frequency and Duration Frequency of Treatment 2x/Week Duration of Treatment 8 Plan of Care Start Date 07/11/18 Plan of Care End Date 09/10/18 Next Visit Focus/Plan Next Note Type Treatment Note Next Visit Plan seated positioning, PNF
--- NOTE | 2018-08-04 09:45 | PT.OTN ---
Current Diagnoses Encounter for other orthopedic aftercare (08/04/18) Physical Therapy Treatment Note PT-OP-A Visit Information Start: 03/30/18 14:30 Freq: Status: Active Protocol: Document 08/04/18 08:16 [facility] (Rec: 08/04/18 09:45 [facility] [id number]) Out-Patient Physical Therapy Visit Information Visit Information Visit Type Treatment Note Visit Start Time 08:15 Visit Stop Time 09:10 Total Visit Minutes 55 Visit Number 27 Number of CHART CALCULATOR Visits 0 PT-OP-B Current Condition Start: 03/30/18 14:30 Freq: Status: Active Protocol: Document 03/30/18 14:30 SAK (Rec: 03/30/18 15:21 SAK [id number]) Current Condition History of Current Condition Onset Date 02/16/18 Current Complaints limited left LE function s/p left foot surgery History of Current Condition Underwent left talonavicular fusion and calcaneal autograft 02/16/18. Remained NWB for 6 wks. Now to start PT. x-ray yesterday showed good healing , patient reports less pain than before surgery. Order is for 50% WB left LE in CAM boot , then advance by 25% every 2 wks if pain controlled. When 100% in CAM boot ok to transition to normal shoe. Patient reports she sees physician 05/11/18 and he said not to use regular shoe until then. Initiate PT today, has not done exercises or weight on foot prior to today. Fell 2 weeks ago out of wheelchair hitting right anterior knee, c /o pain. Also fell 03/07/18 out of wheelchair. Uncertain if put weight on left LE to get up; not present. Needs gait training on stairs for home; rail on left going up, right going down. reports he feels patient has been putting too much weight on her foot walking with walker today. Of concern is patient's prior shoulder surgeries with concern over heavy use of walker, as well as anticipated need for surgery right foot with fear of increasing pain and dysfunction on that side with increased stress of asymmetrical weight-bearing. Prior Functional Status Baseline Function- ADL's Independent Baseline Function- Mobility Independent Baseline Function- Gait independent without device Current Functional Impairments (Reported) Functional Limitations- ADL's Mostly from wheelchair Functional Limitations- Mobility/Gait CAM boot, 50% WB left LE using FWW. Limited to transfers, very short distance household. Functional Limitations- Recreation/ unable Hobbies PT-OP-C Subjective Start: 03/30/18 14:30 Freq: Status: Active Protocol: Document 08/04/18 08:16 [facility] (Rec: 08/04/18 09:45 [facility] [id number]) OP-PT Subjective Patient Comments Patient Comments Reports she overdid it this weekend with house guests and ended up sleeping an entire day after. PT-OP-F Manual Assessment Start: 03/30/18 14:30 Freq: Status: Active Protocol: Document 03/30/18 14:30 SAK (Rec: 04/03/18 12:34 SAK [id number]) Manual Assessments Other Manual Assessments Other Manual Assessments No increase in warmth left LE. Scar healing well with small area still open due per patient to abscess from stitch . PT-OP-G Mobility & Gait Start: 03/30/18 14:30 Freq: Status: Active Protocol: Document 03/30/18 14:30 SAK (Rec: 04/03/18 12:34 SAK [id number]) Stair Climbing Evaluation Evaluation Level of Assist On Stairs Contact Guard Assistance Devices Stair Climbing Assistive Devices Small Base Quad Cane Right Railing Technique/Endurance Stair Climbing Direction Ascend and Descend Stair Climbing Technique Step to Step Comments Stair Climbing Comments cues for 50% weight-bearing, sequencing PT-OP-I Pelvic Floor Start: 03/30/18 14:30 Freq: Status: Active Protocol: Document 05/04/18 14:30 AMB (Rec: 05/04/18 16:24 AMB [id number]) Pelvic Floor Assessment Urine Other Leakage Causes denies leaks Bowel Other Bowel Symptoms denies any bowel symptoms Pelvic Clock Pelvic Clock 3-6 Tenderness Pelvic Clock 6-9 Hypertonic Tenderness Tightness Pelvic Clock 9-12 Hypertonic Tenderness Tightness Contraction Ability Voluntary Contraction Weak Manual Muscle Testing Left 0 Manual Muscle Testing Right 0 Manual Muscle Testing Anterior 1 Manual Muscle Testing Posterior 1 PT-OP-K Range of Motion Start: 03/30/18 14:30 Freq: Status: Active Protocol: Document 03/30/18 14:30 SAK (Rec: 04/03/18 12:34 SAK [id number]) Knee Goniometric Range of Motion Knee Measured in Degrees gloria Knee ROM WFL Yes Ankle and Foot Goniometric Range of Motion Ankle and Foot Measured in Degrees Right Active Dorsiflexion with Knee Flexed 8 Plantarflexion 45 Inversion 30 Eversion 35 Left Ankle/Foot ROM WFL Yes Testing Position Supine Dorsiflexion with Knee Flexed 5 Dorsiflexion with Knee Extended 3 Plantarflexion 42 Inversion 10 Eversion 16 Ankle and Foot ROM Limitations ROM Limitations Soft Tissue Tightness Muscle Weakness PT-OP-M Strength Start: 03/30/18 14:30 Freq: Status: Active Protocol: Document 03/30/18 14:30 [facility] (Rec: 04/03/18 12:34 [facility] [id number]) Hip Strength Hip Manual Muscle Testing Right Reason Not Measured Pain Left Flexion (L2) 3+ Fair+ Abduction 3+ Fair+ External Rotation 3+ Fair+ Internal Rotation 3+ Fair+ Knee Strength Knee Manual Muscle Testing gloria Flexion (S2) 4 Good Extension (L3) 4 Good Ankle/Foot Strength Ankle and Foot Manual Muscle Testing Right Dorsiflexion (L4) 4 Good Plantarflexion (S1) 4 Good Inversion 4- Good- Eversion (S1) 4- Good- Left Reason Not Measured Orthopedic Precautions PT-OP-Q Treatments Start: 03/30/18 14:30 Freq: Status: Active Protocol: Document 08/04/18 08:16 [facility] (Rec: 08/04/18 09:45 [facility] [id number]) Therapeutic Activity Therapeutic Activity sit to stand Name focus on neutral spine & glute & core control posture Name seated w/& without supports Manual Therapy Treatment Soft Tissue Mobilization right lumbar paraspinals Mobilization Type Myofascial Release Rolling Body Position Sidelying PT-OP-R Modalities Start: 03/30/18 14:30 Freq: Status: Active Protocol: Document 08/04/18 08:16 [facility] (Rec: 08/04/18 09:45 [facility] [id number]) Electric Stimulation Electric Stimulation Interferential Current (IFC) Body Location bilateral l/s Duration (Minutes) 15 Target/Sweep Sweep Patient Position Supine Combined With Heat/Cold Cold Pack Ultrasound Therapy Treatment right lumbar paraspinals, piriformis Treatment Duration (minutes) 5 Patient Position Sidelying Frequency Setting (mHz) 1 Mode Setting Pulsed Duty Cycle 50% Intensity Setting (w/cm2) 1.5 PT-OP-S Aquatic Treatment Start: 03/30/18 14:30 Freq: Status: Active Protocol: Document 05/30/18 11:00 [facility] (Rec: 05/30/18 15:08 [facility] [id number]) Aquatics Treatment Pool Entry/Exit Pool Entry/Exit Method Stairs Assistance Independent Water Walking Backwards Water Level Chest Level Level of Assistance Verbal Cues Comments reaching back w/foot Monster Walk Water Level Chest Level Level of Assistance Verbal Cues Marching Water Level Chest Level Walking Equipment Resistance Fins Level of Assistance Verbal Cues Sideways Water Level Chest Level Level of Assistance Verbal Cues forward Water Level Chest Level Level of Assistance Verbal Cues Comments arms in ER at sides for ant chest stretch Lower Extremity Exercises Hip flex/ex Body Position Standing Water Level Neck Level Reps/Duration 10x Lower Extremity Stretches DKTC, SKTC, free the hip Comments at wall in deep [place] Activities [place] Activities Bicycle [place] Hip Abduction/Adduction Other Activities SKTC, DKTC hacky sac heel to opposite hand posterior hip ext at wall Equipment flotation belt (L) Duration 25 PT-OP-T Assessment and Plan Start: 03/30/18 14:30 Freq: Status: Active Protocol: Document 08/04/18 08:16 [facility] (Rec: 08/04/18 09:45 [facility] [id number]) Physical Therapy Assessment Goals Oswestry disability index score Short Term Goal (STG) Decrease score to no greater than 40% STG Duration 08/11/18 Assisted Goal (LTG) Decrease score to no greater than 20% LTG Duration 09/10/18 LBP with radicular symptoms Impairment LBP with radiucular symptoms 8 /10 Short Term Goal (STG) Decrease pain to no greater than 4/10 STG Duration 08/11/18 Assisted Goal (LTG) Decrease pain to no greater than 2/10 LTG Duration 09/10/18 Two Impairment Sitting tolerance Assisted Goal (LTG) Patsy will sit for 30 minutes with 2/10 pain or less 06/09/18: had made good progress after women's health visit but is again having increased pain and difficulty tolerating sitting. Sees women's health PT next visit. LTG Duration 8 weeks One Impairment pelvic floor tightness Short Term Goal (STG) Patsy will be independent with a pelvic floor relaxation HEP. STG Duration MET Light Cleaner Goal (LTG) Patsy will report 2/10 pain or less with palpation of obturator internus. 06/09/18: to be addressed by women's health PT next visit LTG Duration MET decreased ROM and strength left foot/ankle Impairment foot/ankle ROM and strength Assisted Goal (LTG) Improve left ankle ROM and strength to WNL 06/09/18: good progress, highly compliant to HEP. Recent exacerbation of increased pain and edema bilateral ankles. LTG Duration MET pain right foot/ankle Impairment 210 Assisted Goal (LTG) Patient able to progress with ther ex and gait and return to usual activities without pain increasing greater than 2/10 06/09/18: good progress. Limited by pelvic pain which appears due to compensatory movement strategies.07/11/17: goal MET LTG Duration MET Antalgic gait Impairment antalgic gait, using FWW, 50% WB Short Term Goal (STG) Patient will progress to 100% WB left LE without an increase in pain 06/09/18: good progress, though as above a recent exacerbation of edema and swelling. 07/11/18: goal MET STG Duration MET Assisted Goal (LTG) Patient able to ambulate with minimal to no limp using appropriate assistive device as needed 07/11/18: limping primarily due to LBP at this time. 06/09/18: good progress, though habitual compensatory movements require further re- education and contribute to her function-limiting pelvic pain. 07/11/18: exacerbation of prior LBP from above compensatory patterns. LTG Duration 09/10/18 Foot and Ankle Ability Measure ADL's Impairment 31% Short Term Goal (STG) Improve score to at least 50% STG Duration MET Assisted Goal (LTG) Improve score to at least 75% 07/11/18: 57% LTG Duration 09/10/18 Lower extremity functional scale Impairment 30% Short Term Goal (STG) Improve score to at least 50% STG Duration MET Light Cleaner Goal (LTG) Improve lower extremity functional scale to at least 70% 07/11/18: 54% Assessment Summary Assessment Pt cont to improve with mobility patterns but requires cueing to avoid arching lumbar spine with activity with edu of what is neutral. Pt cont to report relief with US Physical Therapy Plan Frequency and Duration Frequency of Treatment 2x/Week Duration of Treatment 8 Plan of Care Start Date 07/11/18 Plan of Care End Date 09/10/18 Next Visit Focus/Plan Next Note Type Treatment Note Next Visit Plan PNF for rolling & gait
--- NOTE | 2018-08-10 16:02 | PT.OTN ---
Current Diagnoses Encounter for other orthopedic aftercare (08/10/18) Physical Therapy Treatment Note PT-OP-A Visit Information Start: 03/30/18 14:30 Freq: Status: Active Protocol: Document 08/10/18 14:32 [facility] (Rec: 08/10/18 15:28 [facility] [id number]) Out-Patient Physical Therapy Visit Information Visit Information Visit Type Treatment Note Visit Start Time 14:30 Visit Stop Time 15:25 Total Visit Minutes 55 Visit Number 28 Number of GUIDE WINDER Visits 0 PT-OP-B Current Condition Start: 03/30/18 14:30 Freq: Status: Active Protocol: Document 03/30/18 14:30 SAK (Rec: 03/30/18 15:21 SAK [id number]) Current Condition History of Current Condition Onset Date 02/16/18 Current Complaints limited left LE function s/p left foot surgery History of Current Condition Underwent left talonavicular fusion and calcaneal autograft 02/16/18. Remained NWB for 6 wks. Now to start PT. x-ray yesterday showed good healing , patient reports less pain than before surgery. Order is for 50% WB left LE in CAM boot , then advance by 25% every 2 wks if pain controlled. When 100% in CAM boot ok to transition to normal shoe. Patient reports she sees physician 05/11/18 and he said not to use regular shoe until then. Initiate PT today, has not done exercises or weight on foot prior to today. Fell 2 weeks ago out of wheelchair hitting right anterior knee, c /o pain. Also fell 03/07/18 out of wheelchair. Uncertain if put weight on left LE to get up; not present. Needs gait training on stairs for home; rail on left going up, right going down. reports he feels patient has been putting too much weight on her foot walking with walker today. Of concern is patient's prior shoulder surgeries with concern over heavy use of walker, as well as anticipated need for surgery right foot with fear of increasing pain and dysfunction on that side with increased stress of asymmetrical weight-bearing. Prior Functional Status Baseline Function- ADL's Independent Baseline Function- Mobility Independent Baseline Function- Gait independent without device Current Functional Impairments (Reported) Functional Limitations- ADL's Mostly from wheelchair Functional Limitations- Mobility/Gait CAM boot, 50% WB left LE using FWW. Limited to transfers, very short distance household. Functional Limitations- Recreation/ unable Hobbies PT-OP-C Subjective Start: 03/30/18 14:30 Freq: Status: Active Protocol: Document 08/10/18 14:32 [facility] (Rec: 08/10/18 15:28 [facility] [id number]) OP-PT Subjective Patient Comments Patient Comments Pt reports she went to the pool and was able to doggy paddle a little but not walk in the shallow end Patient Reported Progress Improving PT-OP-F Manual Assessment Start: 03/30/18 14:30 Freq: Status: Active Protocol: Document 03/30/18 14:30 SAK (Rec: 04/03/18 12:34 SAK [id number]) Manual Assessments Other Manual Assessments Other Manual Assessments No increase in warmth left LE. Scar healing well with small area still open due per patient to abscess from stitch . PT-OP-G Mobility & Gait Start: 03/30/18 14:30 Freq: Status: Active Protocol: Document 03/30/18 14:30 SAK (Rec: 04/03/18 12:34 SAK [id number]) Stair Climbing Evaluation Evaluation Level of Assist On Stairs Contact Guard Assistance Devices Stair Climbing Assistive Devices Small Base Quad Cane Right Railing Technique/Endurance Stair Climbing Direction Ascend and Descend Stair Climbing Technique Step to Step Comments Stair Climbing Comments cues for 50% weight-bearing, sequencing PT-OP-I Pelvic Floor Start: 03/30/18 14:30 Freq: Status: Active Protocol: Document 05/04/18 14:30 AMB (Rec: 05/04/18 16:24 AMB [id number]) Pelvic Floor Assessment Urine Other Leakage Causes denies leaks Bowel Other Bowel Symptoms denies any bowel symptoms Pelvic Clock Pelvic Clock 3-6 Tenderness Pelvic Clock 6-9 Hypertonic Tenderness Tightness Pelvic Clock 9-12 Hypertonic Tenderness Tightness Contraction Ability Voluntary Contraction Weak Manual Muscle Testing Left 0 Manual Muscle Testing Right 0 Manual Muscle Testing Anterior 1 Manual Muscle Testing Posterior 1 PT-OP-K Range of Motion Start: 03/30/18 14:30 Freq: Status: Active Protocol: Document 03/30/18 14:30 SAK (Rec: 04/03/18 12:34 SAK [id number]) Knee Goniometric Range of Motion Knee Measured in Degrees gloria Knee ROM WFL Yes Ankle and Foot Goniometric Range of Motion Ankle and Foot Measured in Degrees Right Active Dorsiflexion with Knee Flexed 8 Plantarflexion 45 Inversion 30 Eversion 35 Left Ankle/Foot ROM WFL Yes Testing Position Supine Dorsiflexion with Knee Flexed 5 Dorsiflexion with Knee Extended 3 Plantarflexion 42 Inversion 10 Eversion 16 Ankle and Foot ROM Limitations ROM Limitations Soft Tissue Tightness Muscle Weakness PT-OP-M Strength Start: 03/30/18 14:30 Freq: Status: Active Protocol: Document 03/30/18 14:30 SAK (Rec: 04/03/18 12:34 SAK [id number]) Hip Strength Hip Manual Muscle Testing Right Reason Not Measured Pain Left Flexion (L2) 3+ Fair+ Abduction 3+ Fair+ External Rotation 3+ Fair+ Internal Rotation 3+ Fair+ Knee Strength Knee Manual Muscle Testing gloria Flexion (S2) 4 Good Extension (L3) 4 Good Ankle/Foot Strength Ankle and Foot Manual Muscle Testing Right Dorsiflexion (L4) 4 Good Plantarflexion (S1) 4 Good Inversion 4- Good- Eversion (S1) 4- Good- Left Reason Not Measured Orthopedic Precautions PT-OP-Q Treatments Start: 03/30/18 14:30 Freq: Status: Active Protocol: Document 08/10/18 14:32 [facility] (Rec: 08/10/18 15:28 [facility] [id number]) Manual Therapy Treatment Soft Tissue Mobilization right lumbar paraspinals Mobilization Type Myofascial Release Rolling Body Position Sidelying right piriformis Mobilization Type Sustained Pressure Trigger Point Release Body Position left sidelying Neuro Re-Education Treatment Other Activities core facilitation Details D1 flex diagnal PNF Details ant elevation Comments rhythmic initiation PT-OP-R Modalities Start: 03/30/18 14:30 Freq: Status: Active Protocol: Document 08/10/18 14:32 [facility] (Rec: 08/10/18 15:28 [facility] [id number]) Electric Stimulation Electric Stimulation Interferential Current (IFC) Body Location bilateral l/s Duration (Minutes) 15 Target/Sweep Sweep Patient Position Supine Combined With Heat/Cold Cold Pack PT-OP-S Aquatic Treatment Start: 03/30/18 14:30 Freq: Status: Active Protocol: Document 05/30/18 11:00 LJ (Rec: 05/30/18 15:08 LJ [id number]) Aquatics Treatment Pool Entry/Exit Pool Entry/Exit Method Stairs Assistance Independent Water Walking Backwards Water Level Chest Level Level of Assistance Verbal Cues Comments reaching back w/foot Monster Walk Water Level Chest Level Level of Assistance Verbal Cues Marching Water Level Chest Level Walking Equipment Resistance Fins Level of Assistance Verbal Cues Sideways Water Level Chest Level Level of Assistance Verbal Cues forward Water Level Chest Level Level of Assistance Verbal Cues Comments arms in ER at sides for ant chest stretch Lower Extremity Exercises Hip flex/ex Body Position Standing Water Level Neck Level Reps/Duration 10x Lower Extremity Stretches DKTC, SKTC, free the hip Comments at wall in deep [place] Activities [place] Activities Bicycle [place] Hip Abduction/Adduction Other Activities SKTC, DKTC hacky sac heel to opposite hand posterior hip ext at wall Equipment flotation belt (L) Duration 25 PT-OP-T Assessment and Plan Start: 03/30/18 14:30 Freq: Status: Active Protocol: Document 08/10/18 14:32 [facility] (Rec: 08/10/18 15:28 [facility] [id number]) Physical Therapy Assessment Goals Oswestry disability index score Short Term Goal (STG) Decrease score to no greater than 40% STG Duration 08/11/18 [employer] Vehicle Operations Instructor Goal (LTG) Decrease score to no greater than 20% LTG Duration 09/10/18 LBP with radicular symptoms Impairment LBP with radiucular symptoms 8 Short Term Goal (STG) Decrease pain to no greater than 4/10 STG Duration 08/11/18 [employer] Vehicle Operations Instructor Goal (LTG) Decrease pain to no greater than 2/10 LTG Duration 09/10/18 Two Impairment Sitting tolerance Emergency Vehicle Operations Instructor Goal (LTG) Patsy will sit for 30 minutes with 2/10 pain or less 06/09/18: had made good progress after women's health visit but is again having increased pain and difficulty tolerating sitting. Sees women's health PT next visit. LTG Duration 8 weeks One Impairment pelvic floor tightness Short Term Goal (STG) Patsy will be independent with a pelvic floor relaxation HEP. STG Duration MET Fpc Goal (LTG) Patsy will report 2/10 pain or less with palpation of obturator internus. 06/09/18: to be addressed by women's health PT next visit LTG Duration MET decreased ROM and strength left foot/ankle Impairment foot/ankle ROM and strength Emergency Vehicle Operations Instructor Goal (LTG) Improve left ankle ROM and strength to WNL 06/09/18: good progress, highly compliant to HEP. Recent exacerbation of increased pain and edema bilateral ankles. LTG Duration MET pain right foot/ankle Impairment 2 Fpc Goal (LTG) Patient able to progress with ther ex and gait and return to usual activities without pain increasing greater than 2/10 06/09/18: good progress. Limited by pelvic pain which appears due to compensatory movement strategies.07/11/17: goal MET LTG Duration MET Antalgic gait Impairment antalgic gait, using FWW, 50% WB Short Term Goal (STG) Patient will progress to 100% WB left LE without an increase in pain 06/09/18: good progress, though as above a recent exacerbation of edema and swelling. 07/11/18: goal MET STG Duration MET Fpc Goal (LTG) Patient able to ambulate with minimal to no limp using appropriate assistive device as needed 07/11/18: limping primarily due to LBP at this time. 06/09/18: good progress, though habitual compensatory movements require further re- education and contribute to her function-limiting pelvic pain. 07/11/18: exacerbation of prior LBP from above compensatory patterns. LTG Duration 09/10/18 Foot and Ankle Ability Measure ADL's Impairment 31% Short Term Goal (STG) Improve score to at least 50% STG Duration MET Fpc Goal (LTG) Improve score to at least 75% 07/11/18: 57% LTG Duration 09/10/18 Lower extremity functional scale Impairment 30% Short Term Goal (STG) Improve score to at least 50% STG Duration MET Fpc Goal (LTG) Improve lower extremity functional scale to at least 70% 07/11/18: 54% Assessment Summary Assessment Pt had improvement with ability to activate core in supine w/faciliation. She improved with post dep & ant elevation moition after STM but unable to faciliate Physical Therapy Plan Frequency and Duration Frequency of Treatment 2x/Week Duration of Treatment 8 Plan of Care Start Date 07/11/18 Plan of Care End Date 09/10/18 Next Visit Focus/Plan Next Note Type Treatment Note Next Visit Plan Try progression of core exercises
--- NOTE | 2018-08-16 14:56 | PT.OTN ---
Current Diagnoses Encounter for other orthopedic aftercare (08/16/18) Physical Therapy Treatment Note PT-OP-A Visit Information Start: 03/30/18 14:30 Freq: Status: Active Protocol: Document 08/16/18 14:29 [facility] (Rec: 08/16/18 14:56 [facility] [id number]) Out-Patient Physical Therapy Visit Information Visit Information Visit Type Treatment Note Visit Start Time 10:30 Visit Stop Time 11:25 Total Visit Minutes 55 Visit Number 29 Number of RANGE MOUNTER Visits 0 PT-OP-B Current Condition Start: 03/30/18 14:30 Freq: Status: Active Protocol: Document 03/30/18 14:30 SAK (Rec: 03/30/18 15:21 SAK [id number]) Current Condition History of Current Condition Onset Date 02/16/18 Current Complaints limited left LE function s/p left foot surgery History of Current Condition Underwent left talonavicular fusion and calcaneal autograft 02/16/18. Remained NWB for 6 wks. Now to start PT. x-ray yesterday showed good healing , patient reports less pain than before surgery. Order is for 50% WB left LE in CAM boot , then advance by 25% every 2 wks if pain controlled. When 100% in CAM boot ok to transition to normal shoe. Patient reports she sees physician 05/11/18 and he said not to use regular shoe until then. Initiate PT today, has not done exercises or weight on foot prior to today. Fell 2 weeks ago out of wheelchair hitting right anterior knee, c /o pain. Also fell 03/07/18 out of wheelchair. Uncertain if put weight on left LE to get up; not present. Needs gait training on stairs for home; rail on left going up, right going down. reports he feels patient has been putting too much weight on her foot walking with walker today. Of concern is patient's prior shoulder surgeries with concern over heavy use of walker, as well as anticipated need for surgery right foot with fear of increasing pain and dysfunction on that side with increased stress of asymmetrical weight-bearing. Prior Functional Status Baseline Function- ADL's Independent Baseline Function- Mobility Independent Baseline Function- Gait independent without device Current Functional Impairments (Reported) Functional Limitations- ADL's Mostly from wheelchair Functional Limitations- Mobility/Gait CAM boot, 50% WB left LE using FWW. Limited to transfers, very short distance household. Functional Limitations- Recreation/ unable Hobbies PT-OP-C Subjective Start: 03/30/18 14:30 Freq: Status: Active Protocol: Document 08/16/18 14:29 [facility] (Rec: 08/16/18 14:56 [facility] [id number]) OP-PT Subjective Patient Comments Patient Comments Pt reprots SI injection Wednesday did not seem to help. Allowed to return to exercise today. PT-OP-F Manual Assessment Start: 03/30/18 14:30 Freq: Status: Active Protocol: Document 03/30/18 14:30 SAK (Rec: 04/03/18 12:34 SAK [id number]) Manual Assessments Other Manual Assessments Other Manual Assessments No increase in warmth left LE. Scar healing well with small area still open due per patient to abscess from stitch . PT-OP-G Mobility & Gait Start: 03/30/18 14:30 Freq: Status: Active Protocol: Document 03/30/18 14:30 SAK (Rec: 04/03/18 12:34 SAK [id number]) Stair Climbing Evaluation Evaluation Level of Assist On Stairs Contact Guard Assistance Devices Stair Climbing Assistive Devices Small Base Quad Cane Right Railing Technique/Endurance Stair Climbing Direction Ascend and Descend Stair Climbing Technique Step to Step Comments Stair Climbing Comments cues for 50% weight-bearing, sequencing PT-OP-I Pelvic Floor Start: 03/30/18 14:30 Freq: Status: Active Protocol: Document 05/04/18 14:30 AMB (Rec: 05/04/18 16:24 AMB [id number]) Pelvic Floor Assessment Urine Other Leakage Causes denies leaks Bowel Other Bowel Symptoms denies any bowel symptoms Pelvic Clock Pelvic Clock 3-6 Tenderness Pelvic Clock 6-9 Hypertonic Tenderness Tightness Pelvic Clock 9-12 Hypertonic Tenderness Tightness Contraction Ability Voluntary Contraction Weak Manual Muscle Testing Left 0 Manual Muscle Testing Right 0 Manual Muscle Testing Anterior 1 Manual Muscle Testing Posterior 1 PT-OP-K Range of Motion Start: 03/30/18 14:30 Freq: Status: Active Protocol: Document 03/30/18 14:30 SAK (Rec: 04/03/18 12:34 SAK [id number]) Knee Goniometric Range of Motion Knee Measured in Degrees gloria Knee ROM WFL Yes Ankle and Foot Goniometric Range of Motion Ankle and Foot Measured in Degrees Right Active Dorsiflexion with Knee Flexed 8 Plantarflexion 45 Inversion 30 Eversion 35 Left Ankle/Foot ROM WFL Yes Testing Position Supine Dorsiflexion with Knee Flexed 5 Dorsiflexion with Knee Extended 3 Plantarflexion 42 Inversion 10 Eversion 16 Ankle and Foot ROM Limitations ROM Limitations Soft Tissue Tightness Muscle Weakness PT-OP-M Strength Start: 03/30/18 14:30 Freq: Status: Active Protocol: Document 03/30/18 14:30 [facility] (Rec: 04/03/18 12:34 [facility] [id number]) Hip Strength Hip Manual Muscle Testing Right Reason Not Measured Pain Left Flexion (L2) 3+ Fair+ Abduction 3+ Fair+ External Rotation 3+ Fair+ Internal Rotation 3+ Fair+ Knee Strength Knee Manual Muscle Testing gloria Flexion (S2) 4 Good Extension (L3) 4 Good Ankle/Foot Strength Ankle and Foot Manual Muscle Testing Right Dorsiflexion (L4) 4 Good Plantarflexion (S1) 4 Good Inversion 4- Good- Eversion (S1) 4- Good- Left Reason Not Measured Orthopedic Precautions PT-OP-Q Treatments Start: 03/30/18 14:30 Freq: Status: Active Protocol: Document 08/16/18 14:29 [facility] (Rec: 08/16/18 14:50 [facility] [id number]) Therapeutic Exercises Supine Exercises 1 Supine Exercise Name may w/ focus on core Reps/Minutes 10 B Sitting Exercises 4 Sitting Exercise Name fwd flex segmental up/down Reps/Minutes 2x Manual Therapy Treatment Soft Tissue Mobilization right lumbar paraspinals Body Location B Mobilization Type Myofascial Release Rolling Body Position Sitting Comments w/fwd flex right piriformis Body Location piriformi & glutes along sacrum Mobilization Type Sustained Pressure Trigger Point Release Body Position left sidelying PT-OP-R Modalities Start: 03/30/18 14:30 Freq: Status: Active Protocol: Document 08/16/18 14:29 [facility] (Rec: 08/16/18 14:50 [facility] [id number]) Electric Stimulation Electric Stimulation Interferential Current (IFC) Body Location bilateral l/s Duration (Minutes) 15 Target/Sweep Sweep Patient Position Supine Combined With Heat/Cold Cold Pack Ultrasound Therapy Treatment right lumbar paraspinals, piriformis Treatment Duration (minutes) 4 Patient Position Sidelying Frequency Setting (mHz) 1 Mode Setting Pulsed Duty Cycle 50% Intensity Setting (w/cm2) 1.5 PT-OP-S Aquatic Treatment Start: 03/30/18 14:30 Freq: Status: Active Protocol: Document 05/30/18 11:00 LJ (Rec: 05/30/18 15:08 LJ [id number]) Aquatics Treatment Pool Entry/Exit Pool Entry/Exit Method Stairs Assistance Independent Water Walking Backwards Water Level Chest Level Level of Assistance Verbal Cues Comments reaching back w/foot Monster Walk Water Level Chest Level Level of Assistance Verbal Cues Marching Water Level Chest Level Walking Equipment Resistance Fins Level of Assistance Verbal Cues Sideways Water Level Chest Level Level of Assistance Verbal Cues forward Water Level Chest Level Level of Assistance Verbal Cues Comments arms in ER at sides for ant chest stretch Lower Extremity Exercises Hip flex/ex Body Position Standing Water Level Neck Level Reps/Duration 10x Lower Extremity Stretches DKTC, SKTC, free the hip Comments at wall in deep [place] Activities [place] Activities Bicycle Cross [place] Hip Abduction/Adduction Other Activities SKTC, DKTC hacky sac heel to opposite hand posterior hip ext at wall Equipment flotation belt (L) Duration 25 PT-OP-T Assessment and Plan Start: 03/30/18 14:30 Freq: Status: Active Protocol: Document 08/16/18 14:29 [facility] (Rec: 08/16/18 14:50 [facility] [id number]) Physical Therapy Assessment Goals Oswestry disability index score Short Term Goal (STG) Decrease score to no greater than 40% STG Duration 08/11/18 Mcc Goal (LTG) Decrease score to no greater than 20% LTG Duration 09/10/18 LBP with radicular symptoms Impairment LBP with radiucular symptoms 8 /10 Short Term Goal (STG) Decrease pain to no greater than 4/10 STG Duration 08/11/18 Meringuer Goal (LTG) Decrease pain to no greater than 2/10 LTG Duration 09/10/18 Two Impairment Sitting tolerance Mcc Goal (LTG) Patsy will sit for 30 minutes with 2/10 pain or less 06/09/18: had made good progress after women's health visit but is again having increased pain and difficulty tolerating sitting. Sees women's health PT next visit. LTG Duration 8 weeks One Impairment pelvic floor tightness Short Term Goal (STG) Patsy will be independent with a pelvic floor relaxation HEP. STG Duration MET Meringuer Goal (LTG) Patsy will report 2/10 pain or less with palpation of obturator internus. 06/09/18: to be addressed by women's health PT next visit LTG Duration MET decreased ROM and strength left foot/ankle Impairment foot/ankle ROM and strength Mcc Goal (LTG) Improve left ankle ROM and strength to WNL 06/09/18: good progress, highly compliant to HEP. Recent exacerbation of increased pain and edema bilateral ankles. LTG Duration MET pain right foot/ankle Impairment 2/10 Meringuer Goal (LTG) Patient able to progress with ther ex and gait and return to usual activities without pain increasing greater than 2/10 06/09/18: good progress. Limited by pelvic pain which appears due to compensatory movement strategies.07/11/17: goal MET LTG Duration MET Antalgic gait Impairment antalgic gait, using FWW, 50% WB Short Term Goal (STG) Patient will progress to 100% WB left LE without an increase in pain 06/09/18: good progress, though as above a recent exacerbation of edema and swelling. 07/11/18: goal MET STG Duration MET Mcc Goal (LTG) Patient able to ambulate with minimal to no limp using appropriate assistive device as needed 07/11/18: limping primarily due to LBP at this time. 06/09/18: good progress, though habitual compensatory movements require further re- education and contribute to her function-limiting pelvic pain. 07/11/18: exacerbation of prior LBP from above compensatory patterns. LTG Duration 09/10/18 Foot and Ankle Ability Measure ADL's Impairment 31% Short Term Goal (STG) Improve score to at least 50% STG Duration MET Mcc Goal (LTG) Improve score to at least 75% 07/11/18: 57% LTG Duration 09/10/18 Lower extremity functional scale Impairment 30% Short Term Goal (STG) Improve score to at least 50% STG Duration MET Meringuer Goal (LTG) Improve lower extremity functional scale to at least 70% 07/11/18: 54% Assessment Summary Assessment Pt required significant cueing for maintaining neutral pelvis during may exercise. She improved in ability to flex and return to neutral with cueing. Physical Therapy Plan Frequency and Duration Frequency of Treatment 2x/Week Duration of Treatment 8 Plan of Care Start Date 07/11/18 Plan of Care End Date 09/10/18 Next Visit Focus/Plan Next Note Type Treatment Note Next Visit Plan Try progression of core exercises
--- NOTE | 2018-08-18 12:03 | PT.OTN ---
Current Diagnoses Encounter for other orthopedic aftercare (08/18/18) Physical Therapy Treatment Note PT-OP-A Visit Information Start: 03/30/18 14:30 Freq: Status: Active Protocol: Document 08/18/18 10:31 [facility] (Rec: 08/18/18 12:03 [facility] [id number]) Out-Patient Physical Therapy Visit Information Visit Information Visit Type Treatment Note Visit Start Time 10:30 Visit Stop Time 11:25 Total Visit Minutes 55 Visit Number 30 Number of PLASTIC EXTRUDING MACHINE OPERATOR Visits 0 PT-OP-B Current Condition Start: 03/30/18 14:30 Freq: Status: Active Protocol: Document 03/30/18 14:30 SAK (Rec: 03/30/18 15:21 SAK [id number]) Current Condition History of Current Condition Onset Date 02/16/18 Current Complaints limited left LE function s/p left foot surgery History of Current Condition Underwent left talonavicular fusion and calcaneal autograft 02/16/18. Remained NWB for 6 wks. Now to start PT. x-ray yesterday showed good healing , patient reports less pain than before surgery. Order is for 50% WB left LE in CAM boot , then advance by 25% every 2 wks if pain controlled. When 100% in CAM boot ok to transition to normal shoe. Patient reports she sees physician 05/11/18 and he said not to use regular shoe until then. Initiate PT today, has not done exercises or weight on foot prior to today. Fell 2 weeks ago out of wheelchair hitting right anterior knee, c /o pain. Also fell 03/07/18 out of wheelchair. Uncertain if put weight on left LE to get up; not present. Needs gait training on stairs for home; rail on left going up, right going down. reports he feels patient has been putting too much weight on her foot walking with walker today. Of concern is patient's prior shoulder surgeries with concern over heavy use of walker, as well as anticipated need for surgery right foot with fear of increasing pain and dysfunction on that side with increased stress of asymmetrical weight-bearing. Prior Functional Status Baseline Function- ADL's Independent Baseline Function- Mobility Independent Baseline Function- Gait independent without device Current Functional Impairments (Reported) Functional Limitations- ADL's Mostly from wheelchair Functional Limitations- Mobility/Gait CAM boot, 50% WB left LE using FWW. Limited to transfers, very short distance household. Functional Limitations- Recreation/ unable Hobbies PT-OP-C Subjective Start: 03/30/18 14:30 Freq: Status: Active Protocol: Document 08/18/18 10:31 [facility] (Rec: 08/18/18 12:03 [facility] [id number]) OP-PT Subjective Patient Comments Patient Comments Pt reports mostly pain into back now and less le gpain. She felt good after therapy and did a 2 block walk to the library and 2 blocks back and felt fine and after dinner tried another short walk but had inc pain in R side where R side gave out so she sat to a stair. Patient Reported Progress Improving PT-OP-F Manual Assessment Start: 03/30/18 14:30 Freq: Status: Active Protocol: Document 03/30/18 14:30 SAK (Rec: 04/03/18 12:34 SAK [id number]) Manual Assessments Other Manual Assessments Other Manual Assessments No increase in warmth left LE. Scar healing well with small area still open due per patient to abscess from stitch . PT-OP-G Mobility & Gait Start: 03/30/18 14:30 Freq: Status: Active Protocol: Document 03/30/18 14:30 SAK (Rec: 04/03/18 12:34 SAK [id number]) Stair Climbing Evaluation Evaluation Level of Assist On Stairs Contact Guard Assistance Devices Stair Climbing Assistive Devices Small Base Quad Cane Right Railing Technique/Endurance Stair Climbing Direction Ascend and Descend Stair Climbing Technique Step to Step Comments Stair Climbing Comments cues for 50% weight-bearing, sequencing PT-OP-I Pelvic Floor Start: 03/30/18 14:30 Freq: Status: Active Protocol: Document 05/04/18 14:30 AMB (Rec: 05/04/18 16:24 AMB [id number]) Pelvic Floor Assessment Urine Other Leakage Causes denies leaks Bowel Other Bowel Symptoms denies any bowel symptoms Pelvic Clock Pelvic Clock 3-6 Tenderness Pelvic Clock 6-9 Hypertonic Tenderness Tightness Pelvic Clock 9-12 Hypertonic Tenderness Tightness Contraction Ability Voluntary Contraction Weak Manual Muscle Testing Left 0 Manual Muscle Testing Right 0 Manual Muscle Testing Anterior 1 Manual Muscle Testing Posterior 1 PT-OP-K Range of Motion Start: 03/30/18 14:30 Freq: Status: Active Protocol: Document 03/30/18 14:30 [facility] (Rec: 04/03/18 12:34 [facility] [id number]) Knee Goniometric Range of Motion Knee Measured in Degrees gloria Knee ROM WFL Yes Ankle and Foot Goniometric Range of Motion Ankle and Foot Measured in Degrees Right Active Dorsiflexion with Knee Flexed 8 Plantarflexion 45 Inversion 30 Eversion 35 Left Ankle/Foot ROM WFL Yes Testing Position Supine Dorsiflexion with Knee Flexed 5 Dorsiflexion with Knee Extended 3 Plantarflexion 42 Inversion 10 Eversion 16 Ankle and Foot ROM Limitations ROM Limitations Soft Tissue Tightness Muscle Weakness PT-OP-M Strength Start: 03/30/18 14:30 Freq: Status: Active Protocol: Document 03/30/18 14:30 [facility] (Rec: 04/03/18 12:34 [facility] [id number]) Hip Strength Hip Manual Muscle Testing Right Reason Not Measured Pain Left Flexion (L2) 3+ Fair+ Abduction 3+ Fair+ External Rotation 3+ Fair+ Internal Rotation 3+ Fair+ Knee Strength Knee Manual Muscle Testing gloria Flexion (S2) 4 Good Extension (L3) 4 Good Ankle/Foot Strength Ankle and Foot Manual Muscle Testing Right Dorsiflexion (L4) 4 Good Plantarflexion (S1) 4 Good Inversion 4- Good- Eversion (S1) 4- Good- Left Reason Not Measured Orthopedic Precautions PT-OP-Q Treatments Start: 03/30/18 14:30 Freq: Status: Active Protocol: Document 08/18/18 10:31 [facility] (Rec: 08/18/18 12:03 [facility] [id number]) Therapeutic Activity Therapeutic Activity posture Name seated & standing posture Comments w/diaphragmic breathing & remaining posture while walking Manual Therapy Treatment Joint Mobilizations innominate Joint R Direction flex fm hip Joint R Direction inf & distraction Grade II Manual Traction Lumbar Details lumbar PT-OP-R Modalities Start: 03/30/18 14:30 Freq: Status: Active Protocol: Document 08/18/18 10:31 [facility] (Rec: 08/18/18 12:03 [facility] [id number]) Electric Stimulation Electric Stimulation Interferential Current (IFC) Body Location bilateral l/s Duration (Minutes) 15 Target/Sweep Sweep Patient Position Supine Combined With Heat/Cold Cold Pack Ultrasound Therapy Treatment right lumbar paraspinals, piriformis Treatment Duration (minutes) 4 Patient Position Sidelying Frequency Setting (mHz) 1 Mode Setting Pulsed Duty Cycle 50% Intensity Setting (w/cm2) 1.5 PT-OP-S Aquatic Treatment Start: 03/30/18 14:30 Freq: Status: Active Protocol: Document 05/30/18 11:00 LJ (Rec: 05/30/18 15:08 LJ [id number]) Aquatics Treatment Pool Entry/Exit Pool Entry/Exit Method Stairs Assistance Independent Water Walking Backwards Water Level Chest Level Level of Assistance Verbal Cues Comments reaching back w/foot Monster Walk Water Level Chest Level Level of Assistance Verbal Cues Marching Water Level Chest Level Walking Equipment Resistance Fins Level of Assistance Verbal Cues Sideways Water Level Chest Level Level of Assistance Verbal Cues forward Water Level Chest Level Level of Assistance Verbal Cues Comments arms in ER at sides for ant chest stretch Lower Extremity Exercises Hip flex/ex Body Position Standing Water Level Neck Level Reps/Duration 10x Lower Extremity Stretches DKTC, SKTC, free the hip Comments at wall in deep [place] Activities [place] Activities Bicycle [place] Hip Abduction/Adduction Other Activities SKTC, DKTC hacky sac heel to opposite hand posterior hip ext at wall Equipment flotation belt (L) Duration 25 PT-OP-T Assessment and Plan Start: 03/30/18 14:30 Freq: Status: Active Protocol: Document 08/18/18 10:31 [facility] (Rec: 08/18/18 12:03 [facility] [id number]) Physical Therapy Assessment Goals Oswestry disability index score Short Term Goal (STG) Decrease score to no greater than 40% STG Duration 08/11/18 Snf Goal (LTG) Decrease score to no greater than 20% LTG Duration 09/10/18 LBP with radicular symptoms Impairment LBP with radiucular symptoms 8 /10 Short Term Goal (STG) Decrease pain to no greater than 4/10 STG Duration 08/11/18 Quantitative Equity Head Goal (LTG) Decrease pain to no greater than 2/10 LTG Duration 09/10/18 Two Impairment Sitting tolerance Snf Goal (LTG) Patsy will sit for 30 minutes with 2/10 pain or less 06/09/18: had made good progress after women's health visit but is again having increased pain and difficulty tolerating sitting. Sees women's health PT next visit. LTG Duration 8 weeks One Impairment pelvic floor tightness Short Term Goal (STG) Patsy will be independent with a pelvic floor relaxation HEP. STG Duration MET Quantitative Equity Head Goal (LTG) Patsy will report 2/10 pain or less with palpation of obturator internus. 06/09/18: to be addressed by women's health PT next visit LTG Duration MET decreased ROM and strength left foot/ankle Impairment foot/ankle ROM and strength Snf Goal (LTG) Improve left ankle ROM and strength to WNL 06/09/18: good progress, highly compliant to HEP. Recent exacerbation of increased pain and edema bilateral ankles. LTG Duration MET pain right foot/ankle Impairment 2/10 Snf Goal (LTG) Patient able to progress with ther ex and gait and return to usual activities without pain increasing greater than 2/10 06/09/18: good progress. Limited by pelvic pain which appears due to compensatory movement strategies.07/11/17: goal MET LTG Duration MET Antalgic gait Impairment antalgic gait, using FWW, 50% WB Short Term Goal (STG) Patient will progress to 100% WB left LE without an increase in pain 06/09/18: good progress, though as above a recent exacerbation of edema and swelling. 07/11/18: goal MET STG Duration MET Quantitative Equity Head Goal (LTG) Patient able to ambulate with minimal to no limp using appropriate assistive device as needed 07/11/18: limping primarily due to LBP at this time. 06/09/18: good progress, though habitual compensatory movements require further re- education and contribute to her function-limiting pelvic pain. 07/11/18: exacerbation of prior LBP from above compensatory patterns. LTG Duration 09/10/18 Foot and Ankle Ability Measure ADL's Impairment 31% Short Term Goal (STG) Improve score to at least 50% STG Duration MET Snf Goal (LTG) Improve score to at least 75% 07/11/18: 57% LTG Duration 09/10/18 Lower extremity functional scale Impairment 30% Short Term Goal (STG) Improve score to at least 50% STG Duration MET Snf Goal (LTG) Improve lower extremity functional scale to at least 70% 07/11/18: 54% Assessment Summary Assessment Pt unable to iniate glutes without creating lumbar ext so worked on combo of lumbar & glute bracing in seated & standing to assist with posture for standing & walking . She had improved walking posture but still pain occasionally with training. Physical Therapy Plan Frequency and Duration Frequency of Treatment 2x/Week Duration of Treatment 8 Plan of Care Start Date 07/11/18 Plan of Care End Date 09/10/18 Next Visit Focus/Plan Next Note Type Treatment Note Next Visit Plan Try progression of core exercises
--- NOTE | 2018-08-31 09:32 | PT.OPDS ---
Current Diagnoses Encounter for other orthopedic aftercare (08/18/18) Provider Visit Care Team Role Provider Type Justin Gayle MD Family Provider Physician Primary Care Provider Specialty: Internal Medicine Address: [address] [place] [address], [id number] Email: Gerardo Trejo MD Attending Provider Non-Staff Specialty: Orthopedic Surgery Address: [address] [place] [address], [id number] Email: Visit Number Visit Number 30 Discharge Summary PT-OP-B Current Condition Start: 03/30/18 14:30 Freq: Status: Active Protocol: Document 03/30/18 14:30 SAI (Rec: 03/30/18 15:21 SAK [id number]) Current Condition History of Current Condition Onset Date 02/16/18 Current Complaints limited left LE function s/p left foot surgery History of Current Condition Underwent left talonavicular fusion and calcaneal autograft 02/16/18. Remained NWB for 6 wks. Now to start PT. x-ray yesterday showed good healing , patient reports less pain than before surgery. Order is for 50% WB left LE in CAM boot , then advance by 25% every 2 wks if pain controlled. When 100% in CAM boot ok to transition to normal shoe. Patient reports she sees physician 05/11/18 and he said not to use regular shoe until then. Initiate PT today, has not done exercises or weight on foot prior to today. Fell 2 weeks ago out of wheelchair hitting right anterior knee, c /o pain. Also fell 03/07/18 out of wheelchair. Uncertain if put weight on left LE to get up; not present. Needs gait training on stairs for home; rail on left going up, right going down. reports he feels patient has been putting too much weight on her foot walking with walker today. Of concern is patient's prior shoulder surgeries with concern over heavy use of walker, as well as anticipated need for surgery right foot with fear of increasing pain and dysfunction on that side with increased stress of asymmetrical weight-bearing. Prior Functional Status Baseline Function- ADL's Independent Baseline Function- Mobility Independent Baseline Function- Gait independent without device Current Functional Impairments (Reported) Functional Limitations- ADL's Mostly from wheelchair Functional Limitations- Mobility/Gait CAM boot, 50% WB left LE using FWW. Limited to transfers, very short distance household. Functional Limitations- Recreation/ unable Hobbies PT-OP-C Subjective Start: 03/30/18 14:30 Freq: Status: Active Protocol: Document 08/18/18 10:31 LR (Rec: 08/18/18 12:03 [facility] [id number]) OP-PT Subjective Patient Comments Patient Comments Pt reports mostly pain into back now and less le gpain. She felt good after therapy and did a 2 block walk to the library and 2 blocks back and felt fine and after dinner tried another short walk but had inc pain in R side where R side gave out so she sat to a stair. Patient Reported Progress Improving PT-OP-F Manual Assessment Start: 03/30/18 14:30 Freq: Status: Active Protocol: Document 03/30/18 14:30 SAK (Rec: 04/03/18 12:34 [facility] [id number]) Manual Assessments Other Manual Assessments Other Manual Assessments No increase in warmth left LE. Scar healing well with small area still open due per patient to abscess from stitch . PT-OP-G Mobility & Gait Start: 03/30/18 14:30 Freq: Status: Active Protocol: Document 03/30/18 14:30 SAK (Rec: 04/03/18 12:34 [facility] [id number]) Stair Climbing Evaluation Evaluation Level of Assist On Stairs Contact Guard Assistance Devices Stair Climbing Assistive Devices Small Base Quad Cane Right Railing Technique/Endurance Stair Climbing Direction Ascend and Descend Stair Climbing Technique Step to Step Comments Stair Climbing Comments cues for 50% weight-bearing, sequencing PT-OP-I Pelvic Floor Start: 03/30/18 14:30 Freq: Status: Active Protocol: Document 05/04/18 14:30 AMB (Rec: 05/04/18 16:24 AMB [id number]) Pelvic Floor Assessment Urine Other Leakage Causes denies leaks Bowel Other Bowel Symptoms denies any bowel symptoms Pelvic Clock Pelvic Clock 3-6 Tenderness Pelvic Clock 6-9 Hypertonic Tenderness Tightness Pelvic Clock 9-12 Hypertonic Tenderness Tightness Contraction Ability Voluntary Contraction Weak Manual Muscle Testing Left 0 Manual Muscle Testing Right 0 Manual Muscle Testing Anterior 1 Manual Muscle Testing Posterior 1 PT-OP-K Range of Motion Start: 03/30/18 14:30 Freq: Status: Active Protocol: Document 03/30/18 14:30 [facility] (Rec: 04/03/18 12:34 [facility] [id number]) Knee Goniometric Range of Motion Knee gloria Knee ROM WFL Yes Ankle and Foot Goniometric Range of Motion Ankle and Foot Right Active Dorsiflexion with Knee Flexed 8 Plantarflexion 45 Inversion 30 Eversion 35 Left Ankle/Foot ROM WFL Yes Testing Position Supine Dorsiflexion with Knee Flexed 5 Dorsiflexion with Knee Extended 3 Plantarflexion 42 Inversion 10 Eversion 16 Ankle and Foot ROM Limitations ROM Limitations Soft Tissue Tightness Muscle Weakness PT-OP-M Strength Start: 03/30/18 14:30 Freq: Status: Active Protocol: Document 03/30/18 14:30 [facility] (Rec: 04/03/18 12:34 [facility] [id number]) Hip Strength Hip Manual Muscle Testing Right Reason Not Measured Pain Left Flexion (L2) 3+ Fair+ Abduction 3+ Fair+ External Rotation 3+ Fair+ Internal Rotation 3+ Fair+ Knee Strength Knee Manual Muscle Testing gloria Flexion (S2) 4 Good Extension (L3) 4 Good Ankle/Foot Strength Ankle and Foot Manual Muscle Testing Right Dorsiflexion (L4) 4 Good Plantarflexion (S1) 4 Good Inversion 4- Good- Eversion (S1) 4- Good- Left Reason Not Measured Orthopedic Precautions PT-OP-T Assessment and Plan Start: 03/30/18 14:30 Freq: Status: Active Protocol: Document 08/31/18 09:31 [facility] (Rec: 08/31/18 09:32 [facility] [id number]) Physical Therapy Assessment Assessment Summary Assessment Pt was making slow progress with PT for decreasing LBP with transitional movements but was still having significant pain. Physical Therapy Plan Discharge Physical Therapy Discharge Reasons Patient Request Discharge Comments Pt plans to get back surgery and is going to wait until after to resume PT
== END 2018-08-31 16:06 | disposition home or self-care (01) ==
LOC: PHYS 10:30
PROVIDERS: Family Provider Internal Medicine; PCP Internal Medicine; Visit Provider Orthopaedic Surgery
DX: Z47.89 Encounter for other orthopedic aftercare (principal)
CPT/HCPCS: 97010; 97012; 97014; 97035; 97110; 97112; 97113; 97116; 97140; 97162; 97164; 97530; 97535; G0283

== ENCOUNTER 2018-10-16 08:17 | Emergency (ER) | payer MEDICARE, OTHER, SELFPAY ==
[2018-10-16 08:30] VITALS: BP 168/68; PULSE 76; RESP 18; TEMP 36.8; O2SAT 98
--- NOTE | 2018-10-16 08:40 | DI.RAD.S_ITS ---
PROCEDURE: XR ANKLE RT MIN 3V INDICATIONS: fall with pain, swelling TECHNIQUE: 3 views of the ankle were acquired. COMPARISON: None. FINDINGS: Bones: No displaced fractures or dislocations. Ankle mortise is normally aligned. No suspicious bony lesions. Postoperative changes are present related to previous fifth metatarsal ORIF. Mild heterogeneity is evident at the tip of the lateral malleolus, suggesting an old injury. Soft tissues: No tibiotalar joint effusion. Achilles tendon appears normal. IMPRESSION: 1. No acute osseous abnormality of the right ankle. 2. Postoperative changes involving the fifth metatarsal. Dictated by: Lopez Valdivia M.D. on 10/16/2018 at 8:32 Approved by: Lopez Valdivia M.D. on 10/16/2018 at 8:33
--- NOTE | 2018-10-16 08:40 | DI.RAD.S_ITS ---
PROCEDURE: XR LUMBAR SPINE 2-3V INDICATIONS: fall, worsening sciatica, surgery last week (fusion) TECHNIQUE: 3 views of the lumbar spine were acquired. COMPARISON: None. FINDINGS: Bones: 5 [id number] vertebrae are present. There is normal bony alignment. No vertebral body compression fractures. No suspicious bony lesions. Postsurgical changes are evident involving the lower lumbar spine related to an L4-S1 posterior discectomy and fusion procedure. The orthopedic hardware is intact. Bony alignment is within normal limits. Laminectomy changes are noted at L4 and L5. Soft tissues: Overlying bowel gas pattern is normal. No suspicious soft tissue calcifications. Surgical clips are seen within the right upper quadrant, suggesting prior cholecystectomy. IMPRESSION: 1. No acute osseous abnormality of the lumbar spine. 2. Postoperative changes related to an L4-S1 lumbar fusion. Dictated by: Lopez Valdivia M.D. on 10/16/2018 at 8:30 Approved by: Lopez Valdivia M.D. on 10/16/2018 at 8:32
--- NOTE | 2018-10-16 08:44 | ED.FALL ---
HPI - Fall General Chief Complaint: Fall Stated Complaint: Fell this morning, recent back surgery Time Seen by Provider: 10/16/18 08:18 Source: patient and family Mode of arrival: wheelchair Limitations: no limitations History of Present Illness HPI Narrative: 59-year-old female nonsmoker with history of recent back surgery presents for evaluation of a fall this morning. Patient just had a lumbar fusion at [facility] last week and was discharged on Wednesday. She has had some numbness (but not weakness) of her right lower extremity since the surgery, the [facility] surgeons know about this. She was on the bedside commode this morning and could not feel her right foot which became entangled and she fell forward onto her hands and knees. She denies any head or upper back pain nor any significant change in her lower back pain. She does state that she could feel and hear a tearing sensation in her right lateral ankle and has developed some pain in her calf as well. Furthermore, since the surgery she complains of gradually worsening sciatic type complaints in her left lower leg which she has talked with the surgeons about as well. She denies any trouble controlling bowel or bladder. She denies any lower extremity weakness or foot drop. She denies any numbness in her groin. complaint: fall Onset (ago): minute(s) Fall from: chair Fall witnessed: yes, by family Place fall occurred: home Loss of consciousness: none Prolonged down time: no Symptoms prior to fall: none Context: tripped/slipped Location of injury - extremities: Right: ankle Severity: mild Quality: aching Related Data Home Medications Medication Instructions Recorded Confirmed prednisone 5 mg PO QDAY #0 12/14/16 10/16/18 calcium carbonate-vitamin D3 PO QPM #0 02/04/17 [Calcium 600 with Vitamin D3] metoprolol succinate [Toprol XL] 100 mg PO QDAY #0 02/04/17 10/16/18 Adult One Daily Multivitamin 10/16/18 atorvastatin 10 mg PO QPM 10/16/18 10/16/18 azelastine 1 spray INTRANASAL BID PRN 10/16/18 10/16/18 cetirizine [Zyrtec] 10 mg PRN 10/16/18 duloxetine [Cymbalta] 30 mg PO BID 10/16/18 10/16/18 esomeprazole magnesium [Nexium] 20 mg PO DAILY 10/16/18 10/16/18 fexofenadine [Annabella Allergy] 180 mg PO DAILY PRN 10/16/18 10/16/18 fluocinonide 1 applic TOPICAL BID-QID PRN 10/16/18 10/16/18 leflunomide [Arava] 20 mg PO DAILY 10/16/18 10/16/18 losartan 25 mg PO DAILY 10/16/18 10/16/18 methocarbamol 500 mg PO QID PRN 10/16/18 10/16/18 oxycodone-acetaminophen [Percocet] 1 tab PO Q4-6H PRN 10/16/18 10/16/18 pregabalin 100 mg PO QAM 10/16/18 10/16/18 ranitidine HCl 150 mg PO DAILY PRN 10/16/18 10/16/18 triamcinolone acetonide [Nasacort] 1 spray INTRANASAL DAILY PRN 10/16/18 10/16/18 zolpidem 10 mg PO PRN 10/16/18 Allergies Allergy/AdvReac Type Severity Reaction Status Date / Time clindamycin [CLINDAMYCIN] Allergy Intermediate ITCHING Verified 10/16/18 08:36 moxifloxacin [From AVELOX] Allergy Intermediate ITCHING Verified 10/16/18 08:36 Penicillins [PENICILLINS] Allergy Unknown HIVES AND Verified 10/16/18 08:36 ITCHING (HAPPENED WHEN SHE WAS 7 YRS OLD) hydroxychloroquine Allergy Verified 10/16/18 08:36 [From Plaquenil] nitrofurantoin AdvReac Intermediate Diarrhea Verified 10/16/18 08:36 [From MACRODANTIN] chills Review of Systems Constitutional Denies chills, Denies fever(s), Denies lethargy and Denies weakness Eyes Denies change in vision, Denies eye discharge, Denies irritation and Denies loss of vision ENT Ears, Nose, Mouth, and Throat: Denies change in voice, Denies neck pain and Denies sore throat Cardiovascular Denies chest pain, Denies irregular heart rhythm, Denies lightheadedness, Denies palpitations, Denies dyspnea, Denies dyspnea on exertion and Denies orthopnea Respiratory Denies cough, Denies dyspnea, Denies dyspnea on exertion and Denies wheezing Gastrointestinal Gastrointestinal: Denies abdominal pain, Denies change in bowel habits, Denies diarrhea, Denies nausea and Denies vomiting Genitourinary Denies hematuria, Denies flank pain, Denies urinary incontinence and Denies urinary urgency Musculoskeletal Reports joint swelling, Reports limited range of motion and Denies neck pain Integumentary/Breasts Denies pruritus, Denies erythema, Denies rash and Denies wounds Neurologic Denies confusion, Denies loss of vision and Denies weakness Psychiatric Denies anxiety, Denies confusion, Denies depression, Denies homicidal ideation and Denies suicidal ideation Endocrine Denies palpitations Hematologic/Lymphatic Denies easy bruising Allergic/Immunologic Denies wheezing Exam Narrative Exam Narrative: GENERAL: [67] year old patient appears stated age. Well-nourished, well-developed patient, in mild distress, laying on her right side HEAD: Atraumatic. Normocephalic. EYES: Pupils equal round and reactive. Extraocular motions intact. No scleral icterus. No injection or drainage. ENT: Nose without bleeding, purulent drainage. Throat without erythema, tonsillar hypertrophy or exudate. Airway patent. NECK: Trachea midline. Non tender CARDIOVASCULAR: Regular rate and rhythm without murmurs, gallops, or rubs. RESPIRATORY: Clear to auscultation. Breath sounds equal bilaterally. No wheezes, rales, or rhonchi. GASTROINTESTINAL: Abdomen soft, non-tender, nondistended. EXTREMITIES: Minimal swelling to right lateral ankle posterior to malleolus. No bony point tenderness. Neurovascularly intact. Clinically the Achilles is intact. No palpable swelling or ?divot ?. Squeezing of calf causes plantar flexion. She does have some mild calf tenderness to palpation BACK: Dressings in place, no new drainage or bleeding, some dried blood. NEURO: AOx3. SKIN: No rash or erythema of visible areas Initial Vital Signs Initial Vital Signs: Vital Signs Temperature 98.3 F 10/16/18 08:30 Pulse Rate 76 10/16/18 08:30 Respiratory Rate 18 10/16/18 08:30 Blood Pressure 168/68 H 10/16/18 08:30 Pulse Oximetry 98 10/16/18 08:30 [facility] Social History Smoking Status: Never smoker Social History Smoking Status: Never smoker Procedures Orthopedic Splinting/Casting Injury #1: Side: right Lower Extremity Injury Location: ankle Lower Extremity Immobilizer: AirCast Post splinting neuro exam: intact Post splinting vascular exam: intact Placed by: Nursing Course Orders Ordered: ED Orders 10/16/18 08:40 XR ankle RT min 3V Stat XR lumbar spine 2-3V Stat 10/16/18 09:18 US periph venous low extrem rt Stat Consultations Consultation #1: findings relayed to orthopedics at [facility]. No further imaging or intervention needed Vital Signs - 8 hr 10/16/18 08:30 10/16/18 10:35 Temperature 98.3 F Pulse Rate 76 74 Respiratory Rate 18 16 Blood Pressure 168/68 H Blood Pressure [Right Arm] 169/76 H Pulse Oximetry 98 100 Discharge Plan Departure Patient Disposition: Home Clinical Impression: Ankle sprain Qualifiers: Encounter type: initial encounter Involved ligament of ankle: unspecified ligament Laterality: right Qualified Code(s): S93.401A - Sprain of unspecified ligament of right ankle, initial encounter Discharge Date/Time: 10/16/18 10:43 Interventions: ED Discharge Assessment Last Done: 10/16/18 10:42 Instructions: How to Prevent Falls Activity Restrictions/Additional Instructions: *You have been diagnosed with [acute right ankle sprain, ongoing left-sided sciatica] *What to do: *Take medications as directed *Follow up with your primary care provider in 2-3 days, call for an appointment. Let them know you were seen in the Emergency Department and that we ask that you be seen in follow up *Return to ER if you should have any new, worsening or concerning symptoms Prescriptions: No Action prednisone 5 MG tablet 5 mg PO QDAY Qty: 0 RF: 0 metoprolol succinate [Toprol XL] 25 MG tablet extended release 24 hr 100 mg PO QDAY Qty: 0 RF: 0 calcium carbonate-vitamin D3 [Calcium 600 with Vitamin D3] 600 mg(1,500mg) -400 unit capsule PO QPM Qty: 0 RF: 0 Adult One Daily Multivitamin RF: 0 methocarbamol 500 mg Tablet 500 mg PO QID PRN (Reason: back spasms) RF: 0 atorvastatin 10 mg Tablet 10 mg PO QPM RF: 0 leflunomide [Arava] 20 mg Tablet 20 mg PO DAILY RF: 0 losartan 25 mg Tablet 25 mg PO DAILY RF: 0 esomeprazole magnesium [Nexium] 20 mg Capsule,Delayed Release(Dr/Ec) 20 mg PO DAILY RF: 0 duloxetine [Cymbalta] 30 mg Capsule,Delayed Release(Dr/Ec) 30 mg PO BID RF: 0 pregabalin 100 mg Capsule 100 mg PO QAM RF: 0 fexofenadine [Annabella Allergy] 180 mg Tablet 180 mg PO DAILY PRN (Reason: Angioedema) RF: 0 oxycodone-acetaminophen [Percocet] 5-325 mg Tablet 1 tab PO Q4-6H PRN (Reason: Back Pain) RF: 0 ranitidine HCl 150 mg Tablet 150 mg PO DAILY PRN (Reason: Angioedema) RF: 0 triamcinolone acetonide [Nasacort] 55 mcg Aerosol,Cisco 1 spray INTRANASAL DAILY PRN (Reason: dry nose) RF: 0 zolpidem 10 mg Tablet 10 mg PO PRN (Reason: Insomnia) RF: 0 fluocinonide 0.05 % Cream 1 applic TOPICAL BID-QID PRN (Reason: Ear Pain) RF: 0 azelastine 0.15 % (205.5 mcg) Cisco,Non-Aerosol 1 spray INTRANASAL BID PRN (Reason: nasal dryness) RF: 0 Zyrtec 10 mg Capsule 10 mg PRN (Reason: Angioedema) RF: 0 Referrals: Ellie Fountain PA-C [Primary Care Provider] -
--- NOTE | 2018-10-16 08:49 | ED_ITS ---
HPI - Fall General Chief Complaint: Fall Stated Complaint: Fell this morning, recent back surgery Time Seen by Provider: 10/16/18 08:18 Source: patient and family Mode of arrival: wheelchair Limitations: no limitations History of Present Illness HPI Narrative: 59-year-old female nonsmoker with history of recent back surgery presents for evaluation of a fall this morning. Patient just had a lumbar fusion at [facility] last week and was discharged on Wednesday. She has had some numbness (but not weakness) of her right lower extremity since the surgery, the [facility] surgeons know about this. She was on the bedside commode this morning and could not feel her right foot which became entangled and she fell forward onto her hands and knees. She denies any head or upper back pain nor any significant change in her lower back pain. She does state that she could feel and hear a tearing sensation in her right lateral ankle and has developed some pain in her calf as well. Furthermore, since the surgery she complains of gradually worsening sciatic type complaints in her left lower leg which she has talked with the surgeons about as well. She denies any trouble controlling bowel or bladder. She denies any lower extremity weakness or foot drop. She denies any numbness in her groin. complaint: fall Onset (ago): minute(s) Fall from: chair Fall witnessed: yes, by family Place fall occurred: home Loss of consciousness: none Prolonged down time: no Symptoms prior to fall: none Context: tripped/slipped Location of injury - extremities: Right: ankle Severity: mild Quality: aching Related Data Home Medications Medication Instructions Recorded Confirmed prednisone 5 mg PO QDAY #0 12/14/16 10/16/18 calcium carbonate-vitamin D3 PO QPM #0 02/04/17 [Calcium 600 with Vitamin D3] metoprolol succinate [Toprol XL] 100 mg PO QDAY #0 02/04/17 10/16/18 Adult One Daily Multivitamin 10/16/18 atorvastatin 10 mg PO QPM 10/16/18 10/16/18 azelastine 1 spray INTRANASAL BID PRN 10/16/18 10/16/18 cetirizine [Zyrtec] 10 mg PRN 10/16/18 duloxetine [Cymbalta] 30 mg PO BID 10/16/18 10/16/18 esomeprazole magnesium [Nexium] 20 mg PO DAILY 10/16/18 10/16/18 fexofenadine [Annabella Allergy] 180 mg PO DAILY PRN 10/16/18 10/16/18 fluocinonide 1 applic TOPICAL BID-QID PRN 10/16/18 10/16/18 leflunomide [Arava] 20 mg PO DAILY 10/16/18 10/16/18 losartan 25 mg PO DAILY 10/16/18 10/16/18 methocarbamol 500 mg PO QID PRN 10/16/18 10/16/18 oxycodone-acetaminophen [Percocet] 1 tab PO Q4-6H PRN 10/16/18 10/16/18 pregabalin 100 mg PO QAM 10/16/18 10/16/18 ranitidine HCl 150 mg PO DAILY PRN 10/16/18 10/16/18 triamcinolone acetonide [Nasacort] 1 spray INTRANASAL DAILY PRN 10/16/18 10/16/18 zolpidem 10 mg PO PRN 10/16/18 Allergies Allergy/AdvReac Type Severity Reaction Status Date / Time clindamycin [CLINDAMYCIN] Allergy Intermediate ITCHING Verified 10/16/18 08:36 moxifloxacin [From AVELOX] Allergy Intermediate ITCHING Verified 10/16/18 08:36 Penicillins [PENICILLINS] Allergy Unknown HIVES AND Verified 10/16/18 08:36 ITCHING (HAPPENED WHEN SHE WAS 7 YRS OLD) hydroxychloroquine Allergy Verified 10/16/18 08:36 [From Plaquenil] nitrofurantoin AdvReac Intermediate Diarrhea Verified 10/16/18 08:36 [From MACRODANTIN] chills Review of Systems Constitutional Denies chills, Denies fever(s), Denies lethargy and Denies weakness Eyes Denies change in vision, Denies eye discharge, Denies irritation and Denies loss of vision ENT Ears, Nose, Mouth, and Throat: Denies change in voice, Denies neck pain and Denies sore throat Cardiovascular Denies chest pain, Denies irregular heart rhythm, Denies lightheadedness, Denies palpitations, Denies dyspnea, Denies dyspnea on exertion and Denies orthopnea Respiratory Denies cough, Denies dyspnea, Denies dyspnea on exertion and Denies wheezing Gastrointestinal Gastrointestinal: Denies abdominal pain, Denies change in bowel habits, Denies diarrhea, Denies nausea and Denies vomiting Genitourinary Denies hematuria, Denies flank pain, Denies urinary incontinence and Denies urinary urgency Musculoskeletal Reports joint swelling, Reports limited range of motion and Denies neck pain Integumentary/Breasts Denies pruritus, Denies erythema, Denies rash and Denies wounds Neurologic Denies confusion, Denies loss of vision and Denies weakness Psychiatric Denies anxiety, Denies confusion, Denies depression, Denies homicidal ideation and Denies suicidal ideation Endocrine Denies palpitations Hematologic/Lymphatic Denies easy bruising Allergic/Immunologic Denies wheezing Exam Narrative Exam Narrative: GENERAL: [67] year old patient appears stated age. Well- nourished, well-developed patient, in mild distress, laying on her right side HEAD: Atraumatic. Normocephalic. EYES: Pupils equal round and reactive. Extraocular motions intact. No scleral icterus. No injection or drainage. ENT: Nose without bleeding, purulent drainage. Throat without erythema, tonsillar hypertrophy or exudate. Airway patent. NECK: Trachea midline. Non tender CARDIOVASCULAR: Regular rate and rhythm without murmurs, gallops, or rubs. RESPIRATORY: Clear to auscultation. Breath sounds equal bilaterally. No wheezes, rales, or rhonchi. GASTROINTESTINAL: Abdomen soft, non-tender, nondistended. EXTREMITIES: Minimal swelling to right lateral ankle posterior to malleolus. No bony point tenderness. Neurovascularly intact. Clinically the Achilles is intact. No palpable swelling or ?divot ?. Squeezing of calf causes plantar flexion. She does have some mild calf tenderness to palpation BACK: Dressings in place, no new drainage or bleeding, some dried blood. NEURO: AOx3. SKIN: No rash or erythema of visible areas Initial Vital Signs Initial Vital Signs: Vital Signs Temperature 98.3 F 10/16/18 08:30 Pulse Rate 76 10/16/18 08:30 Respiratory Rate 18 10/16/18 08:30 Blood Pressure 168/68 H 10/16/18 08:30 Pulse Oximetry 98 10/16/18 08:30 [facility] Social History Smoking Status: Never smoker Social History Smoking Status: Never smoker Procedures Orthopedic Splinting/Casting Injury #1: Side: right Lower Extremity Injury Location: ankle Lower Extremity Immobilizer: AirCast Post splinting neuro exam: intact Post splinting vascular exam: intact Placed by: Nursing Course Orders Ordered: ED Orders 10/16/18 08:40 XR ankle RT min 3V Stat XR lumbar spine 2-3V Stat 10/16/18 09:18 US periph venous low extrem rt Stat Consultations Consultation #1: findings relayed to orthopedics at [facility] [place]. No further imaging or intervention needed Vital Signs - 8 hr 10/16/18 08:30 10/16/18 10:35 Temperature 98.3 F Pulse Rate 76 74 Respiratory Rate 18 16 Blood Pressure 168/68 H Blood Pressure [Right Arm] 169/76 H Pulse Oximetry 98 100 Discharge Plan Departure Patient Disposition: Home Clinical Impression: Ankle sprain Qualifiers: Encounter type: initial encounter Involved ligament of ankle: unspecified ligament Laterality: right Qualified Code(s): S93.401A - Sprain of unspecified ligament of right ankle, initial encounter Discharge Date/Time: 10/16/18 10:43 Interventions: ED Discharge Assessment Last Done: 10/16/18 10:42 Instructions: How to Prevent Falls Activity Restrictions/Additional Instructions: *You have been diagnosed with [acute right ankle sprain, ongoing left-sided sciatica] *What to do: *Take medications as directed *Follow up with your primary care provider in 2-3 days, call for an appointment. Let them know you were seen in the Emergency Department and that we ask that you be seen in follow up *Return to ER if you should have any new, worsening or concerning symptoms Prescriptions: No Action prednisone 5 MG tablet 5 mg PO QDAY Qty: 0 RF: 0 metoprolol succinate [Toprol XL] 25 MG tablet extended release 24 hr 100 mg PO QDAY Qty: 0 RF: 0 calcium carbonate-vitamin D3 [Calcium 600 with Vitamin D3] 600 mg(1,500mg) - 400 unit capsule PO QPM Qty: 0 RF: 0 Adult One Daily Multivitamin RF: 0 methocarbamol 500 mg Tablet 500 mg PO QID PRN (Reason: back spasms) RF: 0 atorvastatin 10 mg Tablet 10 mg PO QPM RF: 0 leflunomide [Arava] 20 mg Tablet 20 mg PO DAILY RF: 0 losartan 25 mg Tablet 25 mg PO DAILY RF: 0 esomeprazole magnesium [Nexium] 20 mg Capsule,Delayed Release(Dr/Ec) 20 mg PO DAILY RF: 0 duloxetine [Cymbalta] 30 mg Capsule,Delayed Release(Dr/Ec) 30 mg PO BID RF: 0 pregabalin 100 mg Capsule 100 mg PO QAM RF: 0 fexofenadine [Annabella Allergy] 180 mg Tablet 180 mg PO DAILY PRN (Reason: Angioedema) RF: 0 oxycodone-acetaminophen [Percocet] 5-325 mg Tablet 1 tab PO Q4-6H PRN (Reason: Back Pain) RF: 0 ranitidine HCl 150 mg Tablet 150 mg PO DAILY PRN (Reason: Angioedema) RF: 0 triamcinolone acetonide [Nasacort] 55 mcg Aerosol,[place] 1 spray INTRANASAL DAILY PRN (Reason: dry nose) RF: 0 zolpidem 10 mg Tablet 10 mg PO PRN (Reason: Insomnia) RF: 0 fluocinonide 0.05 % Cream 1 applic TOPICAL BID-QID PRN (Reason: Ear Pain) RF: 0 azelastine 0.15 % (205.5 mcg) [place],Non-Aerosol 1 spray INTRANASAL BID PRN (Reason: nasal dryness) RF: 0 Zyrtec 10 mg Capsule 10 mg PRN (Reason: Angioedema) RF: 0 Referrals: Ellie Fountain PA-C [Primary Care Provider] -
--- NOTE | 2018-10-16 09:18 | DI.US.S_ITS ---
PROCEDURE: US PERIPH VENOUS LOW EXTREM RT INDICATIONS: PAIN RIGHT CALF. BACK SURGERY 5 DAYS AGO, FALL TODAY TECHNIQUE: Real-time imaging, as well as color and pulse Doppler interrogation, were performed of the lower extremity deep veins from the inguinal ligament to the popliteal fossa. COMPARISON: None. FINDINGS: The common femoral, femoral and popliteal veins are normally compressible, and free of intraluminal thrombus. Color and pulse Doppler demonstrate normal phasic intraluminal flow. There is normal augmentation response to distal compression maneuver. IMPRESSION: No evidence of deep vein thrombosis of the right lower extremity. Dictated by: Lopez Valdivia M.D. on 10/16/2018 at 9:29 Approved by: Lopez Valdivia M.D. on 10/16/2018 at 9:29
[2018-10-16 10:35] VITALS: BP 169/76; PULSE 74; RESP 16; O2SAT 100
== END 2018-10-16 10:43 | disposition home or self-care (01) ==
PROVIDERS: Emergency Provider Emergency Medicine; PCP Physician Assistant
DX: S93.401A Sprain of unspecified ligament of right ankle, initial encounter (principal); W19.XXXA Unspecified fall, initial encounter
CPT/HCPCS: 72100; 73610; 93971; 99282; 99283

== ENCOUNTER → 2018-11-24 12:29 | Outpatient (CLI) | payer MEDICARE, OTHER, SELFPAY ==
[2018-11-24 13:02] LABS: Add Manual Diff / Slide Review NO; Basophils Absolute Auto 0 /uL (0-100); Basophils Percent Auto 0.6 % (0-2); Eosinophils Absolute Auto 200 /uL (0-450); Eosinophils Percent Auto 3.9 % (2-4); Hematocrit 38.7 % (36-46); Hemoglobin 12.9 g/dL (12.0-16.0); Lymphocytes Absolute Auto 900 /uL (1100-4500); Lymphocytes Percent Auto 18.9 % (25-40); Mean Corpuscular HGB Conc 33.3 % (30-36); Mean Corpuscular Hemoglobin 29.7 PG (26-34); Mean Corpuscular Volume 89.2 fL (80-100); Monocytes Absolute Auto 600 /uL (0-900); Monocytes Percent Auto 12.1 % (3-14); Neutrophils Absolute Auto 3000 /uL (1500-7000); Neutrophils Percent Auto 64.5 % (50-75); Platelet Count 232 X10^3/uL (150-400); Red Blood Cell Count 4.34 X10^6/uL (4.0-5.2); Red Cell Distribution Width 14.1 % (11.6-14.8); White Blood Cell Count 4.7 X10^3/uL (4.5-11.0)
[2018-11-24 13:18] LABS: Alanine Aminotransferase 33 IU/L (9-52); Albumin 4.1 g/dL (3.5-5.0); Albumin Globulin Ratio 1.7 (1.0-2.8); Alkaline Phosphatase 56 U/L (38-126); Aspartate Aminotransferase 26 IU/L (14-36); BUN Creatinine Ratio 23.3 (6-22); Bilirubin Total 0.6 mg/dL (0.2-1.3); Bilirubin Unconjugated 0.3 mg/dL (0.0-1.1); Blood Urea Nitrogen 14 mg/dL (7-17); Calcium 9.8 mg/dL (8.4-10.2); Carbon Dioxide 26 mmol/L (22-32); Chloride 103 mmol/L (98-107); Estimated Glomerular Filt Rate > 60.0 mL/min (>60); Globulin 2.4 g/dL (1.7-4.1); Glucose 105 mg/dL (80-110); HEMOLYSIS < 15 (0-50); Potassium 4.3 mmol/L (3.4-5.1); Sodium 138 mmol/L (137-145); Total Protein 6.5 g/dL (6.3-8.2)
[2018-11-25 11:37] LABS: Adenovirus F 40/41 Not Detected (Not Detect); Astrovirus Not Detected (Not Detect); Campylobacter Not Detected (Not Detect); Clostridium difficile toxin AB Not Detected (Not Detect); Cryptosporidium Not Detected (Not Detect); Cyclospora cayetanensis Not Detected (Not Detect); Entamoeba histolytica Not Detected (Not Detect); Enteroaggregative E.coli Not Detected (Not Detect); Enteropathogenic E.coli Not Detected (Not Detect); Enterotoxigenic E.coli It/st Not Detected (Not Detect); Giardia lamblia Not Detected (Not Detect); Norovirus GI/GII Not Detected (Not Detect); Plesiomonsa shigelloides Not Detected (Not Detect); Rotavirus A Not Detected (Not Detect); Salmonella Not Detected (Not Detect); Shiga-like toxin-prod E.coli Not Detected (Not Detect); Shigella/Enteroinvasive E.coli Not Detected (Not Detect); Vibrio Not Detected (Not Detect); Vibrio cholerae Not Detected (Not Detect); Yersinia enterocolitica Not Detected (Not Detect)
== END ==
PROVIDERS: Family Provider Internal Medicine Rheumatology; PCP Physician Assistant; Visit Provider Physician Assistant
DX: M06.00 Rheumatoid arthritis without rheumatoid factor, unspecified site (principal); Z51.81 Encounter for therapeutic drug level monitoring; R19.7 Diarrhea, unspecified; Z79.52 Long term (current) use of systemic steroids; R53.1 Weakness
CPT/HCPCS: 36415; 80048; 80076; 85025; 87507

== ENCOUNTER → 2019-01-10 15:25 | Outpatient (ROUT) | payer MEDICARE, OTHER, SELFPAY | PROVIDERS: PCP Physician Assistant; Visit Provider Physician Assistant | DX: N39.0 Urinary tract infection, site not specified (principal) | CPT/HCPCS: 87077; 87086; 87186 ==

== ENCOUNTER → 2019-01-23 13:58 | Outpatient (CLI) | payer MEDICARE, OTHER, SELFPAY ==
[2019-01-23 15:20] LABS: Appearance Urine UA CLEAR; Bilirubin Urine UA NEGATIVE (NEGATIVE); Color Urine UA YELLOW; Glucose Urine UA NEGATIVE (Negative); Ketones Urine UA NEGATIVE (NEGATIVE); Leukocyte Esterase Urine UA NEGATIVE (NEGATIVE); Nitrite Urine UA NEGATIVE (Negative); Occult Blood Urine UA NEGATIVE (Negative); Protein Urine UA NEGATIVE (Negative); Urobilinogen Urine UA 0.2 E.U./dL (0.2)
[2019-01-23 15:25] LABS: Bacteria Urine None Seen; RBC Urine None Seen (0-5/HPF)
[2019-01-23 15:26] LABS: Squamous Epithelial Cell Urine 0-1 /HPF (0-5/HPF); WBC Urine 0-1/HPF (0-5/HPF)
== END ==
PROVIDERS: PCP Physician Assistant; Visit Provider Physician Assistant
DX: N39.0 Urinary tract infection, site not specified (principal)
CPT/HCPCS: 81001; 87086

== ENCOUNTER → 2019-03-29 08:59 | Outpatient (CLI) | payer MEDICARE, OTHER, SELFPAY ==
--- NOTE | 2019-03-29 | DI.MG.S_ITS ---
BILATERAL DIGITAL SCREENING MAMMOGRAM 3D/2D WITH CAD: 03/29/2019 CLINICAL: Routine screening. Comparison is made to exams dated: 08/30/2017 mammogram, 06/09/2016 mammogram, and 02/26/2015 mammogram - [facility]. The tissue of both breasts is heterogeneously dense. This may lower the sensitivity of mammography. Current study was also evaluated with a Computer Aided Detection (CAD) system. There is an oval equal density asymmetry in the left breast middle depth inferior region seen on the mediolateral oblique view only. This is increased in size. No other significant masses, calcifications, or other findings are seen in either breast. IMPRESSION: INCOMPLETE: NEEDS ADDITIONAL IMAGING EVALUATION The oval equal density asymmetry in the left breast is indeterminate. Additional views with possible ultrasound are recommended. This exam was interpreted at Station ID: [id number]. NOTE: For mammograms, a report in lay terms will be sent to the patient. Approximately 15% of breast malignancies will not be visualized mammographically. In the management of a palpable breast mass, a negative mammogram must not discourage biopsy of a clinically suspicious lesion. Electronically Signed By: Yolette cuevas/francy:03/29/2019 09:36:42 copy to: Justin Gayle letter sent: Additional Imaging Needed ACR BI-RADS Category 0: Incomplete [id number]
== END ==
PROVIDERS: PCP Physician Assistant; Visit Provider Physician Assistant
DX: Z12.31 Encounter for screening mammogram for malignant neoplasm of breast (principal)
CPT/HCPCS: 77063; 77067

== ENCOUNTER → 2019-04-26 14:29 | Outpatient (CLI) | payer MEDICARE, OTHER, SELFPAY ==
--- NOTE | 2019-04-26 | DI.MG.S_ITS ---
UNILATERAL LEFT DIGITAL DIAGNOSTIC MAMMOGRAM 3D/2D WITH ADDITIONAL VIEWS: 04/26/2019 CLINICAL: Additional evaluation requested from prior study. Comparison is made to exams dated: 03/29/2019 mammogram, 08/30/2017 mammogram, and 06/09/2016 mammogram - [facility]. The tissue of left breast is heterogeneously dense. This may lower the sensitivity of mammography. The previously described oval equal density asymmetry in the left breast middle depth inferior region seen on the mediolateral oblique view only is no longer seen. This likely represented summation artifact. No other significant masses or calcifications are seen in the breast. IMPRESSION: INCOMPLETE: NEEDS ADDITIONAL IMAGING EVALUATION An ultrasound is recommended to confirm the no longer seen oval equal density asymmetry in the left breast middle depth inferior region seen on the mediolateral oblique view only. This is scheduled to immediately follow this study. This exam was interpreted at Station ID: [id number]. NOTE: For mammograms, a report in lay terms will be sent to the patient. Approximately 15% of breast malignancies will not be visualized mammographically. In the management of a palpable breast mass, a negative mammogram must not discourage biopsy of a clinically suspicious lesion. Electronically Signed By: Randy Kurtz M.D. aty/:04/26/2019 17:45:19 copy to: Justin Gayle ACR BI-RADS Category 0: Incomplete [id number]
--- NOTE | 2019-04-26 | DI.US.S_ITS ---
ULTRASOUND OF LEFT BREAST: 04/26/2019 CLINICAL: Additional evaluation requested from prior study. Comparison is made to exams dated: 04/26/2019 mammogram, 03/29/2019 mammogram, 08/30/2017 mammogram, 06/09/2016 mammogram, 02/26/2015 mammogram - [facility], and 10/17/2013 mammogram - [facility]. Real-time ultrasound of the left breast was performed. Nguyen scale images of the real-time examination were reviewed. No significant abnormalities were seen sonographically in the left breast. IMPRESSION: NEGATIVE There is no sonographic evidence of malignancy. There is no abnormality seen in the left breast to correspond with the mammography finding which likely represents normal fibroglandular tissue. A 1 year screening mammogram is recommended. This exam was interpreted at Station ID: [id number]. Electronically Signed By: Randy Kurtz M.D. aty/:04/26/2019 17:46:36 copy to: Justin Gayle letter sent: Normal Exam Ultrasound BI-RADS: 1 Negative
== END ==
PROVIDERS: PCP Physician Assistant; Referring Provider Physician Assistant; Visit Provider Physician Assistant
DX: R92.8 Other abnormal and inconclusive findings on diagnostic imaging of breast (principal)
CPT/HCPCS: 76642; 77065; G0279

== ENCOUNTER 2019-04-27 10:30 | Outpatient (RCR) | payer MEDICARE, OTHER, SELFPAY ==
--- NOTE | 2019-01-03 17:45 | PT.OIE ---
Current Diagnoses Arthrodesis status (01/03/19) Visit Care Team Role Provider Type Ellie Fountain PA-C Primary Care Provider Advanced Manager Fund Specialty: Internal Medicine Address: [address] [place] [address], [id number] Email: [email or web address] William Odonnell MD Attending Provider Non-Staff Specialty: Orthopedic Surgery Address: [address] [place] [address], [id number], [place], [address] Email: Physical Therapy Initial Evaluation PT-OP-A Visit Information Start: 01/03/19 16:37 Freq: Status: Active Protocol: Document 01/03/19 16:40 NFW (Rec: 01/03/19 17:45 NFW [id number]) Out-Patient Physical Therapy Visit Information Visit Information Visit Type Initial Evaluation Visit Start Time 09:45 Visit Stop Time 10:30 Total Visit Minutes 45 Visit Number 1 Evaluation Information Evaluation Date 01/03/19 PT-OP-B Current Condition Start: 01/03/19 16:37 Freq: Status: Active Protocol: Document 01/03/19 16:40 NFW (Rec: 01/03/19 17:45 NFW [id number]) Current Condition History of Current Condition Onset Date 10/10/18 Current Complaints Weak with decrease balance, low functional activity level. History of Current Condition Patient had lumbar fusion . Had secondary edema and blood clots requiring debridment on 10/26/18 and now doing very well. Future Testing and Treatments Planned 01/18/19 CAT scan left foot - to assess possibility of removing screws from talonavicular fusion performed 02/22 Treatment Goals Patient/Caregiver Goals Regain core and LE strength. Would like to be able to return to extracurricular activities of gardening, cleaning her home and increasing her walking time. Weightbearing tolerance limited by pain in ankles. May need screws removed from left ankle and possible may need talonavicular fusion on right ankle. Prior Functional Status Baseline Function- ADL's Modified Independent Baseline Function- Mobility Modified Independent Current Functional Impairments (Reported) Functional Limitations- ADL's None Functional Limitations- Mobility/Gait Walking limited to maximum of one block due to ankles/feet. Functional Limitations- Work/School Retired. 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 Patient was placed on minimal activities by surgeon. Functional Limitations- Recreation/ Has not been able to resume Hobbies any gardening activities. PT-OP-C Subjective Start: 01/03/19 16:37 Freq: Status: Active Protocol: Document 01/03/19 16:40 NFW (Rec: 01/03/19 17:45 NFW [id number]) OP-PT Subjective Patient Comments Patient Comments Patient has no complaints of pain in her lumbar spine. She however expresses that she is extremely weak and has a high desire to resume her normal activities but needs guidance. She has a fear of reinjury and also fear of falling from decrease balance. Patient Reported Progress Improving Patient Questionnaires Oswestry Low Back Index Oswestry Score 12 Oswestry Impairment 1 to 19% Impaired (Score 1-19) OP-PT Pain Assessment Location low back Pain Location Details No pain from lumbar spine. Comments Pain Comments Patient referred for assist in rehabilitation from her lumbar fusion. She has done very well from that procedure but has instability and pain in her ankles. There is a possibility she will have surgery for the left ankle for removal of hardware and may need fusion on the right ankle . This is affecting her ability to perform weightbearing exercises/ activities. PT-OP-D Balance Start: 01/03/19 16:37 Freq: Status: Active Protocol: Document 01/03/19 16:40 NFW (Rec: 01/03/19 17:45 NFW [id number]) OP-PT Balance Assessment Sitting Balance Static Sitting Balance Ability Normal Dynamic Sitting Balance Ability Normal Standing Balance Static Standing Balance Ability Good Dynamic Standing Balance Ability Good Standing Balance Comments Both good for the first 5 minutes after that time pain in feet, not due to LB. Loera Fall Scale Copyright Permission PT-OP-G Mobility & Gait Start: 01/03/19 16:37 Freq: Status: Active Protocol: Document 01/03/19 16:40 NFW (Rec: 01/03/19 17:45 NFW [id number]) OP Mobility Evaluation Functional Movements Lifting and Carrying Lifting/carrying limited to < 5 lbs. Squats Limited by pain in feet/ankles . Running Assessment Unable OP Gait Assessment Gait Gait Assistance Required: Independent Assistive Devices Assistive Device None Gait Deviations General Gait Pattern Antalgic,Decreased Stride Length Factors Limiting Gait Function Factors Limiting Gait Function Decreased Activity Tolerance, Decreased Strength,Pain Comments Gait Comments Gait is antalgic favoring the right foot and ankle. Patient hold RLE in ER in ambulation. PT-OP-H Neuro Start: 01/03/19 16:37 Freq: Status: Active Protocol: Document 01/03/19 16:40 NFW (Rec: 01/03/19 17:45 NFW [id number]) Sensation Evaluation Gross Sensation Gross Sensation Right LE Impaired Sensation Description Numbness,Tingling,Pins & Emory Dermatome Impairments L5,S1,S2 Deep Tendon Reflex & Clonus Assessment Deep Tendon Reflex Bilateral Achilles Deep Tendon Reflex 1+ Diminished Bilateral Patellar Deep Tendon Reflex 1+ Diminished PT-OP-J Posture/Palpation/Skin Start: 01/03/19 16:37 Freq: Status: Active Protocol: Document 01/03/19 16:40 NFW (Rec: 01/03/19 17:45 NFW [id number]) Posture Evaluation Position Standing Shoulder Posture (R) Forward,(R) Elevated Scapula Posture (L) Neutral,(R) Winged Pelvis Posture (L) Iliac Crest Superior Weight Distribution Weight Shifted Left,Decreased Wt.Bear on (R) Hip Posture (L) Neutral,(R) Neutral Knee Posture (R) Genu Valgus,(L) Genu Recurvatum,(R) Genu Recurvatum Foot Arch (L) No Arch,(R) No Arch Palpation Assessment Location One Palpation Location Lumbar Spine Palpation Details No problems with palpation at and around surgical site. PT-OP-K Range of Motion Start: 01/03/19 16:37 Freq: Status: Active Protocol: Document 01/03/19 16:40 NFW (Rec: 01/03/19 17:45 NFW [id number]) Lumbar Spine Range of Motion Lumbar Spine Active Comments Active ROM not tested due to recent lumbar fusion. Hip Goniometric Range of Motion Hip Right Active Hip ROM WFL Yes Testing Position Supine Straight Leg Raise 50 Left Active Hip ROM WFL Yes Testing Position Supine Straight Leg Raise 50 Hip ROM Limitations Hip ROM Limitations Soft Tissue Tightness Comments Patient has functional ROM but decrease flexibility noted in HS/Gastrocs/hip abductors/hip flexors. PT-OP-L Special Tests Start: 01/03/19 16:37 Freq: Status: Active Protocol: Document 01/03/19 16:40 NFW (Rec: 01/03/19 17:45 NFW [id number]) Special Tests Other Special Tests Special Tests One Legged Balancing - right unable, left 5 seconds PT-OP-M Strength Start: 01/03/19 16:37 Freq: Status: Active Protocol: Document 01/03/19 16:40 NFW (Rec: 01/03/19 17:45 NFW [id number]) Hip Strength Hip Manual Muscle Testing Left Flexion (L2) 4- Good- Extension (S1) 4 Good Abduction 4 Good External Rotation 4 Good Right Flexion (L2) 4- Good- Extension (S1) 4 Good Abduction 4 Good External Rotation 4 Good Knee Strength Knee Manual Muscle Testing Left Flexion (S2) 4 Good Extension (L3) 4 Good Right Flexion (S2) 5 Normal Extension (L3) 5 Normal Ankle/Foot Strength Ankle and Foot Manual Muscle Testing Right Dorsiflexion (L4) 4 Good Plantarflexion (S1) 4 Good Left Dorsiflexion (L4) 4 Good Plantarflexion (S1) 4 Good Toe Strength Toe Manual Muscle Testing Right Great Toe Extension 3 Fair Left Great Toe Extension 4 Good PT-OP-Q Treatments Start: 01/03/19 16:37 Freq: Status: Active Protocol: Document 01/03/19 16:40 NFW (Rec: 01/03/19 17:45 NFW [id number]) Therapeutic Exercises Supine Exercises 2 Supine Exercise Name Glut Sets, LE extended Side bilateral Reps/Minutes 10/10 sec holds stretch Supine Exercise Name Hamstring, supine opposite leg flexed with foot flat Side bilateral Reps/Minutes 10/10 sec holds 1 Supine Exercise Name Single Knee to Chest, opposite extended Side bilateral Reps/Minutes 10/10 sec holds PT-OP-T Assessment and Plan Start: 01/03/19 16:37 Freq: Status: Active Protocol: Document 01/03/19 16:40 NFW (Rec: 01/03/19 17:45 NFW [id number]) Physical Therapy Assessment Rehab Potential Rehabilitation Potential Excellent Evaluation Complexity Number of Personal Factors/Comorbidities 3 or More Number of Body Systems Impaired 1-2 Clinical Presentation at Evaluation Evolving Impairments Impairments Activity Tolerance,Balance, Coordination,Functional Activities,Functional Mobility ,Gait,Pain,Posture,Sensation, Soft Tissue Mobility,Strength Goals Four Impairment Awareness of proper movement patterns and body mechanics for LB Short Term Goal (STG) Proper body mechanics with transitional activities. STG Duration 02/04/19 Cone Tender Goal (LTG) Proper body mechanics for lifting and functional standing activities. LTG Duration 03/07/19 Three Impairment Poor core strength Short Term Goal (STG) Establish abdominal stabilization HEP STG Duration 02/04/19 Cone Tender Goal (LTG) Advance to level II stabilization activities LTG Duration 03/07/19 Two Impairment Decrease functional activity level Short Term Goal (STG) Improve standing balance on each extremity to 10 seconds. STG Duration 02/04/19 Senior Care Goal (LTG) Increase strength/endurance so that patient can perform light lifting more than 10 pounds, and to vacuum one room at a time. LTG Duration 03/07/19 One Impairment Weakness into LEs Senior Care Goal (LTG) MMT to LE grade 5/5 strength LTG Duration 03/07/19 Physical Therapy Plan Frequency and Duration Frequency of Treatment 2x/Week Duration of Treatment 8 weeks Plan of Care Start Date 01/03/19 Plan of Care End Date 03/07/19 Therapeutic Interventions Therapeutic Interventions Aquatic Therapy,Balance Training,Gait Training,Home Exercise Program,Self-Care/ Home Management,Therapeutic Activities,Therapeutic Exercises Modalities Cold Pack/Ice Massage Next Visit Focus/Plan Next Note Type Treatment Note Next Visit Plan Establish HEP, level 1 stabilization.
--- NOTE | 2019-01-03 17:49 | PT.OPPOC ---
Current Diagnoses Arthrodesis status (01/03/19) Visit Care Team Role Provider Type Ellie Fountain PA-C Primary Care Provider Advanced Director Of Automation Specialty: Internal Medicine Address: [address] [place] [address], [id number] Email: [email or web address] William Odonnell MD Attending Provider Non-Staff Specialty: Orthopedic Surgery Address: [address] [place] [address], [id number], [place], [address] Email: Plan Of Care PT-OP-T Assessment and Plan Start: 01/03/19 16:37 Freq: Status: Active Protocol: Document 01/03/19 16:40 NFW (Rec: 01/03/19 17:45 NFW [id number]) Physical Therapy Assessment Rehab Potential Rehabilitation Potential Excellent Evaluation Complexity Number of Personal Factors/Comorbidities 3 or More Number of Body Systems Impaired 1-2 Clinical Presentation at Evaluation Evolving Impairments Impairments Activity Tolerance,Balance, Coordination,Functional Activities,Functional Mobility ,Gait,Pain,Posture,Sensation, Soft Tissue Mobility,Strength Goals Four Impairment Awareness of proper movement patterns and body mechanics for LB Short Term Goal (STG) Proper body mechanics with transitional activities. STG Duration 02/04/19 Asbestos Handler Goal (LTG) Proper body mechanics for lifting and functional standing activities. LTG Duration 03/07/19 Three Impairment Poor core strength Short Term Goal (STG) Establish abdominal stabilization HEP STG Duration 02/04/19 Asbestos Handler Goal (LTG) Advance to level II stabilization activities LTG Duration 03/07/19 Two Impairment Decrease functional activity level Short Term Goal (STG) Improve standing balance on each extremity to 10 seconds. STG Duration 02/04/19 Detention Goal (LTG) Increase strength/endurance so that patient can perform light lifting more than 10 pounds, and to vacuum one room at a time. LTG Duration 03/07/19 One Impairment Weakness into LEs Detention Goal (LTG) MMT to LE grade 5/5 strength LTG Duration 03/07/19 Physical Therapy Plan Frequency and Duration Frequency of Treatment 2x/Week Duration of Treatment 8 weeks Plan of Care Start Date 01/03/19 Plan of Care End Date 03/07/19 Therapeutic Interventions Therapeutic Interventions Aquatic Therapy,Balance Training,Gait Training,Home Exercise Program,Self-Care/ Home Management,Therapeutic Activities,Therapeutic Exercises Modalities Cold Pack/Ice Massage Next Visit Focus/Plan Next Note Type Treatment Note Next Visit Plan Establish HEP, level 1 stabilization. Plan of Care Dates Plan of Care Start Date 01/03/19 Plan of Care End Date 03/07/19
--- NOTE | 2019-01-05 15:52 | PT.OTN ---
Current Diagnoses Arthrodesis status (01/05/19) Physical Therapy Treatment Note PT-OP-A Visit Information Start: 01/03/19 16:37 Freq: Status: Active Protocol: Document 01/05/19 14:15 NFW (Rec: 01/05/19 15:52 NFW [id number]) Out-Patient Physical Therapy Visit Information Visit Information Visit Type Treatment Note Visit Start Time 14:15 Visit Stop Time 15:00 Total Visit Minutes 45 Visit Number 2 PT-OP-B Current Condition Start: 01/03/19 16:37 Freq: Status: Active Protocol: Document 01/03/19 16:40 NFW (Rec: 01/03/19 17:45 NFW [id number]) Current Condition History of Current Condition Onset Date 10/10/18 Current Complaints Weak with decrease balance, low functional activity level. History of Current Condition Patient had lumbar fusion . Had secondary edema and blood clots requiring debridment on 10/26/18 and now doing very well. Future Testing and Treatments Planned 01/18/19 CAT scan left foot - to assess possibility of removing screws from talonavicular fusion performed 02/22 Treatment Goals Patient/Caregiver Goals Regain core and LE strength. Would like to be able to return to extracurricular activities of gardening, cleaning her home and increasing her walking time. Weightbearing tolerance limited by pain in ankles. May need screws removed from left ankle and possible may need talonavicular fusion on right ankle. Prior Functional Status Baseline Function- ADL's Modified Independent Baseline Function- Mobility Modified Independent Current Functional Impairments (Reported) Functional Limitations- ADL's None Functional Limitations- Mobility/Gait Walking limited to maximum of one block due to ankles/feet. Functional Limitations- Work/School Retired. 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 Patient was placed on minimal activities by surgeon. Functional Limitations- Recreation/ Has not been able to resume Hobbies any gardening activities. PT-OP-C Subjective Start: 01/03/19 16:37 Freq: Status: Active Protocol: Document 01/05/19 14:15 NFW (Rec: 01/05/19 15:52 NFW [id number]) OP-PT Subjective Patient Comments Patient Comments Patient asking appropriate questions. Going to the pool on her own and doing well. Patient Reported Progress Improving PT-OP-D Balance Start: 01/03/19 16:37 Freq: Status: Active Protocol: Document 01/03/19 16:40 NFW (Rec: 01/03/19 17:45 NFW [id number]) OP-PT Balance Assessment Sitting Balance Static Sitting Balance Ability Normal Dynamic Sitting Balance Ability Normal Standing Balance Static Standing Balance Ability Good Dynamic Standing Balance Ability Good Standing Balance Comments Both good for the first 5 minutes after that time pain in feet, not due to LB. Loera Fall Scale Copyright Permission PT-OP-G Mobility & Gait Start: 01/03/19 16:37 Freq: Status: Active Protocol: Document 01/03/19 16:40 NFW (Rec: 01/03/19 17:45 NFW [id number]) OP Mobility Evaluation Functional Movements Lifting and Carrying Lifting/carrying limited to < 5 lbs. Squats Limited by pain in feet/ankles . Running Assessment Unable OP Gait Assessment Gait Gait Assistance Required: Independent Assistive Devices Assistive Device None Gait Deviations General Gait Pattern Antalgic,Decreased Stride Length Factors Limiting Gait Function Factors Limiting Gait Function Decreased Activity Tolerance, Decreased Strength,Pain Comments Gait Comments Gait is antalgic favoring the right foot and ankle. Patient hold RLE in ER in ambulation. PT-OP-H Neuro Start: 01/03/19 16:37 Freq: Status: Active Protocol: Document 01/03/19 16:40 NFW (Rec: 01/03/19 17:45 NFW [id number]) Sensation Evaluation Gross Sensation Gross Sensation Right LE Impaired Sensation Description Numbness,Tingling,Pins & [place] Dermatome Impairments L5,S1,S2 Deep Tendon Reflex & Clonus Assessment Deep Tendon Reflex Bilateral Achilles Deep Tendon Reflex 1+ Diminished Bilateral Patellar Deep Tendon Reflex 1+ Diminished PT-OP-J Posture/Palpation/Skin Start: 01/03/19 16:37 Freq: Status: Active Protocol: Document 01/03/19 16:40 NFW (Rec: 01/03/19 17:45 NFW [id number]) Posture Evaluation Position Standing Shoulder Posture (R) Forward,(R) Elevated Scapula Posture (L) Neutral,(R) Winged Pelvis Posture (L) Iliac Crest Superior Weight Distribution Weight Shifted Left,Decreased Wt.Bear on (R) Hip Posture (L) Neutral,(R) Neutral Knee Posture (R) Genu Valgus,(L) Genu Recurvatum,(R) Genu Recurvatum Foot Arch (L) No Arch,(R) No Arch Palpation Assessment Location One Palpation Location Lumbar Spine Palpation Details No problems with palpation at and around surgical site. PT-OP-K Range of Motion Start: 01/03/19 16:37 Freq: Status: Active Protocol: Document 01/03/19 16:40 NFW (Rec: 01/03/19 17:45 NFW [id number]) Lumbar Spine Range of Motion Lumbar Spine Active Comments Active ROM not tested due to recent lumbar fusion. Hip Goniometric Range of Motion Hip Right Active Hip ROM WFL Yes Testing Position Supine Straight Leg Raise 50 Left Active Hip ROM WFL Yes Testing Position Supine Straight Leg Raise 50 Hip ROM Limitations Hip ROM Limitations Soft Tissue Tightness Comments Patient has functional ROM but decrease flexibility noted in HS/Gastrocs/hip abductors/hip flexors. PT-OP-L Special Tests Start: 01/03/19 16:37 Freq: Status: Active Protocol: Document 01/03/19 16:40 NFW (Rec: 01/03/19 17:45 NFW [id number]) Special Tests Other Special Tests Special Tests One Legged Balancing - right unable, left 5 seconds PT-OP-M Strength Start: 01/03/19 16:37 Freq: Status: Active Protocol: Document 01/03/19 16:40 NFW (Rec: 01/03/19 17:45 NFW [id number]) Hip Strength Hip Manual Muscle Testing Left Flexion (L2) 4- Good- Extension (S1) 4 Good Abduction 4 Good External Rotation 4 Good Right Flexion (L2) 4- Good- Extension (S1) 4 Good Abduction 4 Good External Rotation 4 Good Knee Strength Knee Manual Muscle Testing Left Flexion (S2) 4 Good Extension (L3) 4 Good Right Flexion (S2) 5 Normal Extension (L3) 5 Normal Ankle/Foot Strength Ankle and Foot Manual Muscle Testing Right Dorsiflexion (L4) 4 Good Plantarflexion (S1) 4 Good Left Dorsiflexion (L4) 4 Good Plantarflexion (S1) 4 Good Toe Strength Toe Manual Muscle Testing Right Great Toe Extension 3 Fair Left Great Toe Extension 4 Good PT-OP-Q Treatments Start: 01/03/19 16:37 Freq: Status: Active Protocol: Document 01/05/19 14:15 NFW (Rec: 01/05/19 15:52 NFW [id number]) Therapeutic Exercises Supine Exercises 5 Supine Exercise Name Abdominal brace, march Side bilateral Reps/Minutes 10 x each 4 Supine Exercise Name Abdominal Brace, UE flexion alternate and double Side bilateral Reps/Minutes 10 x each 3 Supine Exercise Name Abdominal Brace Side bilateral Reps/Minutes 10 x Comments Cuing for proper breathing Sitting Exercises ankle df,pf,inv,ev Sitting Exercise Name Baps board ex for ankle Side right Equipment Used home baps board brought in by pt Comments cardinal, diagonal planes, circumduction Self-Care/Home Management Treatment Education Patient Education Posture Other Education Discussion proper sleeping postures for protecting cervical and lumbar spine. Discussed ways that patient can read in bed without straining through spine. Shown proper cradling of neck with pillows. Activities Self-Care/Home Management Activities Proper technique of getting up and down from the floor if she should fall. Rec to use left LE as back leg to lift bw since unable with right ankle . PT-OP-T Assessment and Plan Start: 01/03/19 16:37 Freq: Status: Active Protocol: Document 01/05/19 14:15 NFW (Rec: 01/05/19 15:52 NFW [id number]) Physical Therapy Assessment Assessment Summary Assessment Patient receptive and asks excellent questions. Has weak abdominals and needs continued education on proper movement patterns and body mechanics. Physical Therapy Plan Next Visit Focus/Plan Next Note Type Treatment Note Next Visit Plan Advance in stabilization.
--- NOTE | 2019-01-10 17:36 | PT.OTN ---
Current Diagnoses Arthrodesis status (01/10/19) Physical Therapy Treatment Note PT-OP-A Visit Information Start: 01/03/19 16:37 Freq: Status: Active Protocol: Document 01/10/19 09:00 NFW (Rec: 01/10/19 17:36 NFW [id number]) Out-Patient Physical Therapy Visit Information Visit Information Visit Type Treatment Note Visit Start Time 09:00 Visit Stop Time 09:45 Total Visit Minutes 45 Visit Number 3 Number of TANK HOOP BENDER Visits 0 PT-OP-B Current Condition Start: 01/03/19 16:37 Freq: Status: Active Protocol: Document 01/03/19 16:40 NFW (Rec: 01/03/19 17:45 NFW [id number]) Current Condition History of Current Condition Onset Date 10/10/18 Current Complaints Weak with decrease balance, low functional activity level. History of Current Condition Patient had lumbar fusion . Had secondary edema and blood clots requiring debridment on 10/26/18 and now doing very well. Future Testing and Treatments Planned 01/18/19 CAT scan left foot - to assess possibility of removing screws from talonavicular fusion performed 02/22 Treatment Goals Patient/Caregiver Goals Regain core and LE strength. Would like to be able to return to extracurricular activities of gardening, cleaning her home and increasing her walking time. Weightbearing tolerance limited by pain in ankles. May need screws removed from left ankle and possible may need talonavicular fusion on right ankle. Prior Functional Status Baseline Function- ADL's Modified Independent Baseline Function- Mobility Modified Independent Current Functional Impairments (Reported) Functional Limitations- ADL's None Functional Limitations- Mobility/Gait Walking limited to maximum of one block due to ankles/feet. 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 Patient was placed on minimal activities by surgeon. Functional Limitations- Recreation/ Has not been able to resume Hobbies any gardening activities. PT-OP-C Subjective Start: 01/03/19 16:37 Freq: Status: Active Protocol: Document 01/10/19 09:00 NFW (Rec: 01/10/19 17:36 NFW [id number]) OP-PT Subjective Patient Comments Patient Comments Patient overdid in her independent pool program yesterday and is sore in LB. She comes into therapy with a handful of home exercise sheets that she has been given over the last 3 years and has questions as to which ones to do. PT-OP-D Balance Start: 01/03/19 16:37 Freq: Status: Active Protocol: Document 01/03/19 16:40 NFW (Rec: 01/03/19 17:45 NFW [id number]) OP-PT Balance Assessment Sitting Balance Static Sitting Balance Ability Normal Dynamic Sitting Balance Ability Normal Standing Balance Static Standing Balance Ability Good Dynamic Standing Balance Ability Good Standing Balance Comments Both good for the first 5 minutes after that time pain in feet, not due to LB. Loera Fall Scale Copyright Permission PT-OP-G Mobility & Gait Start: 01/03/19 16:37 Freq: Status: Active Protocol: Document 01/03/19 16:40 NFW (Rec: 01/03/19 17:45 NFW [id number]) OP Mobility Evaluation Functional Movements Lifting and Carrying Lifting/carrying limited to < 5 lbs. Squats Limited by pain in feet/ankles . Running Assessment Unable OP Gait Assessment Gait Gait Assistance Required: Independent Assistive Devices Assistive Device None Gait Deviations General Gait Pattern Antalgic,Decreased Stride Length Factors Limiting Gait Function Factors Limiting Gait Function Decreased Activity Tolerance, Decreased Strength,Pain Comments Gait Comments Gait is antalgic favoring the right foot and ankle. Patient hold RLE in ER in ambulation. PT-OP-H Neuro Start: 01/03/19 16:37 Freq: Status: Active Protocol: Document 01/03/19 16:40 NFW (Rec: 01/03/19 17:45 NFW [id number]) Sensation Evaluation Gross Sensation Gross Sensation Right LE Impaired Sensation Description Numbness,Tingling,Pins & [place] Dermatome Impairments L5,S1,S2 Deep Tendon Reflex & Clonus Assessment Deep Tendon Reflex Bilateral Achilles Deep Tendon Reflex 1+ Diminished Bilateral Patellar Deep Tendon Reflex 1+ Diminished PT-OP-J Posture/Palpation/Skin Start: 01/03/19 16:37 Freq: Status: Active Protocol: Document 01/03/19 16:40 NFW (Rec: 01/03/19 17:45 NFW [id number]) Posture Evaluation Position Standing Shoulder Posture (R) Forward,(R) Elevated Scapula Posture (L) Neutral,(R) Winged Pelvis Posture (L) Iliac Crest Superior Weight Distribution Weight Shifted Left,Decreased Wt.Bear on (R) Hip Posture (L) Neutral,(R) Neutral Knee Posture (R) Genu Valgus,(L) Genu Recurvatum,(R) Genu Recurvatum Foot Arch (L) No Arch,(R) No Arch Palpation Assessment Location One Palpation Location Lumbar Spine Palpation Details No problems with palpation at and around surgical site. PT-OP-K Range of Motion Start: 01/03/19 16:37 Freq: Status: Active Protocol: Document 01/03/19 16:40 NFW (Rec: 01/03/19 17:45 NFW [id number]) Lumbar Spine Range of Motion Lumbar Spine Active Comments Active ROM not tested due to recent lumbar fusion. Hip Goniometric Range of Motion Hip Right Active Hip ROM WFL Yes Testing Position Supine Straight Leg Raise 50 Left Active Hip ROM WFL Yes Testing Position Supine Straight Leg Raise 50 Hip ROM Limitations Hip ROM Limitations Soft Tissue Tightness Comments Patient has functional ROM but decrease flexibility noted in HS/Gastrocs/hip abductors/hip flexors. PT-OP-L Special Tests Start: 01/03/19 16:37 Freq: Status: Active Protocol: Document 01/03/19 16:40 NFW (Rec: 01/03/19 17:45 NFW [id number]) Special Tests Other Special Tests Special Tests One Legged Balancing - right unable, left 5 seconds PT-OP-M Strength Start: 01/03/19 16:37 Freq: Status: Active Protocol: Document 01/03/19 16:40 NFW (Rec: 01/03/19 17:45 NFW [id number]) Hip Strength Hip Manual Muscle Testing Left Flexion (L2) 4- Good- Extension (S1) 4 Good Abduction 4 Good External Rotation 4 Good Right Flexion (L2) 4- Good- Extension (S1) 4 Good Abduction 4 Good External Rotation 4 Good Knee Strength Knee Manual Muscle Testing Left Flexion (S2) 4 Good Extension (L3) 4 Good Right Flexion (S2) 5 Normal Extension (L3) 5 Normal Ankle/Foot Strength Ankle and Foot Manual Muscle Testing Right Dorsiflexion (L4) 4 Good Plantarflexion (S1) 4 Good Left Dorsiflexion (L4) 4 Good Plantarflexion (S1) 4 Good Toe Strength Toe Manual Muscle Testing Right Great Toe Extension 3 Fair Left Great Toe Extension 4 Good PT-OP-Q Treatments Start: 01/03/19 16:37 Freq: Status: Active Protocol: Document 01/10/19 09:00 NFW (Rec: 01/10/19 17:36 [facility] [id number]) Therapeutic Exercises Supine Exercises 6 Supine Exercise Name Bridge Side bilateral Reps/Minutes 10x, 5 sec holds Comments Cuing for proper breathing 5 Supine Exercise Name Abdominal brace, march Side bilateral Reps/Minutes 10 x each 4 Supine Exercise Name Abdominal Brace, UE flexion alternate and double Side bilateral Reps/Minutes 10 x each 3 Supine Exercise Name Abdominal Brace Side bilateral Reps/Minutes 10 x Comments Cuing for proper breathing 2 Supine Exercise Name Glut Sets, LE extended Side bilateral Reps/Minutes 10/10 sec holds pelvic tilts Supine Exercise Name Pelvic Tilts Comments shown difference between pelvic tilts and abdominal brace. ball squeeze Supine Exercise Name Isometric Hip Adduction Side bilateral Equipment Used 9 ball Reps/Minutes 10 x, 5 sec holds TrA activation Supine Exercise Name Isometric Hip Abduction Side bilateral Equipment Used Level 6 tband Reps/Minutes 10x, 5 sec holds 1 Supine Exercise Name Single Knee to Chest, opposite extended Side bilateral Reps/Minutes 10/10 sec holds Sitting Exercises 1 Sitting Exercise Name Overhead reach Side bilateral Resistance none Equipment Used none Reps/Minutes 2 reps Comments to be performed each morning to help maintain FROM PT-OP-T Assessment and Plan Start: 01/03/19 16:37 Freq: Status: Active Protocol: Document 01/10/19 09:00 NFW (Rec: 01/10/19 17:36 [facility] [id number]) Physical Therapy Assessment Assessment Summary Assessment Treatment concentrated on HEP and explaining purpose of each exercise. Physical Therapy Plan Frequency and Duration Frequency of Treatment 2x/Week Duration of Treatment 8 weeks Plan of Care Start Date 01/03/19 Plan of Care End Date 03/07/19 Next Visit Focus/Plan Next Note Type Treatment Note Next Visit Plan Follow through with additional HEP sheets that she has been given. These are in the chart . If time, dynamic and functional standing.
--- NOTE | 2019-01-12 12:53 | PT.OTN ---
Current Diagnoses Arthrodesis status (01/12/19) Physical Therapy Treatment Note PT-OP-A Visit Information Start: 01/03/19 16:37 Freq: Status: Active Protocol: Document 01/12/19 09:00 NFW (Rec: 01/12/19 12:53 NFW [id number]) Out-Patient Physical Therapy Visit Information Visit Information Visit Type Treatment Note Visit Start Time 09:00 Visit Stop Time 09:45 Total Visit Minutes 45 Visit Number [address] JUDGE Visits 0 PT-OP-B Current Condition Start: 01/03/19 16:37 Freq: Status: Active Protocol: Document 01/03/19 16:40 NFW (Rec: 01/03/19 17:45 NFW [id number]) Current Condition History of Current Condition Onset Date 10/10/18 Current Complaints Weak with decrease balance, low functional activity level. History of Current Condition Patient had lumbar fusion . Had secondary edema and blood clots requiring debridment on 10/26/18 and now doing very well. Future Testing and Treatments Planned 01/18/19 CAT scan left foot - to assess possibility of removing screws from talonavicular fusion performed 02/22 Treatment Goals Patient/Caregiver Goals Regain core and LE strength. Would like to be able to return to extracurricular activities of gardening, cleaning her home and increasing her walking time. Weightbearing tolerance limited by pain in ankles. May need screws removed from left ankle and possible may need talonavicular fusion on right ankle. Prior Functional Status Baseline Function- ADL's Modified Independent Baseline Function- Mobility Modified Independent Current Functional Impairments (Reported) Functional Limitations- ADL's None Functional Limitations- Mobility/Gait Walking limited to maximum of one block due to ankles/feet. 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 Patient was placed on minimal activities by surgeon. Functional Limitations- Recreation/ Has not been able to resume Hobbies any gardening activities. PT-OP-C Subjective Start: 01/03/19 16:37 Freq: Status: Active Protocol: Document 01/12/19 09:00 NFW (Rec: 01/12/19 12:53 NFW [id number]) OP-PT Subjective Patient Comments Patient Comments Continues to have sore and pain interscapular area extending towards lowback. PT-OP-D Balance Start: 01/03/19 16:37 Freq: Status: Active Protocol: Document 01/03/19 16:40 NFW (Rec: 01/03/19 17:45 NFW [id number]) OP-PT Balance Assessment Sitting Balance Static Sitting Balance Ability Normal Dynamic Sitting Balance Ability Normal Standing Balance Static Standing Balance Ability Good Dynamic Standing Balance Ability Good Standing Balance Comments Both good for the first 5 minutes after that time pain in feet, not due to LB. Loera Fall Scale Copyright Permission PT-OP-G Mobility & Gait Start: 01/03/19 16:37 Freq: Status: Active Protocol: Document 01/03/19 16:40 NFW (Rec: 01/03/19 17:45 NFW [id number]) OP Mobility Evaluation Functional Movements Lifting and Carrying Lifting/carrying limited to < 5 lbs. Squats Limited by pain in feet/ankles . Running Assessment Unable OP Gait Assessment Gait Gait Assistance Required: Independent Assistive Devices Assistive Device None Gait Deviations General Gait Pattern Antalgic,Decreased Stride Length Factors Limiting Gait Function Factors Limiting Gait Function Decreased Activity Tolerance, Decreased Strength,Pain Comments Gait Comments Gait is antalgic favoring the right foot and ankle. Patient hold RLE in ER in ambulation. PT-OP-H Neuro Start: 01/03/19 16:37 Freq: Status: Active Protocol: Document 01/03/19 16:40 NFW (Rec: 01/03/19 17:45 NFW [id number]) Sensation Evaluation Gross Sensation Gross Sensation Right LE Impaired Sensation Description Numbness,Tingling,Pins & [place] Dermatome Impairments L5,S1,S2 Deep Tendon Reflex & Clonus Assessment Deep Tendon Reflex Bilateral Achilles Deep Tendon Reflex 1+ Diminished Bilateral Patellar Deep Tendon Reflex 1+ Diminished PT-OP-J Posture/Palpation/Skin Start: 01/03/19 16:37 Freq: Status: Active Protocol: Document 01/03/19 16:40 NFW (Rec: 01/03/19 17:45 NFW [id number]) Posture Evaluation Position Standing Shoulder Posture (R) Forward,(R) Elevated Scapula Posture (L) Neutral,(R) Winged Pelvis Posture (L) Iliac Crest Superior Weight Distribution Weight Shifted Left,Decreased Wt.Bear on (R) Hip Posture (L) Neutral,(R) Neutral Knee Posture (R) Genu Valgus,(L) Genu Recurvatum,(R) Genu Recurvatum Foot Arch (L) No Arch,(R) No Arch Palpation Assessment Location One Palpation Location Lumbar Spine Palpation Details No problems with palpation at and around surgical site. PT-OP-K Range of Motion Start: 01/03/19 16:37 Freq: Status: Active Protocol: Document 01/03/19 16:40 NFW (Rec: 01/03/19 17:45 NFW [id number]) Lumbar Spine Range of Motion Lumbar Spine Active Comments Active ROM not tested due to recent lumbar fusion. Hip Goniometric Range of Motion Hip Right Active Hip ROM WFL Yes Testing Position Supine Straight Leg Raise 50 Left Active Hip ROM WFL Yes Testing Position Supine Straight Leg Raise 50 Hip ROM Limitations Hip ROM Limitations Soft Tissue Tightness Comments Patient has functional ROM but decrease flexibility noted in HS/Gastrocs/hip abductors/hip flexors. PT-OP-L Special Tests Start: 01/03/19 16:37 Freq: Status: Active Protocol: Document 01/03/19 16:40 NFW (Rec: 01/03/19 17:45 NFW [id number]) Special Tests Other Special Tests Special Tests One Legged Balancing - right unable, left 5 seconds PT-OP-M Strength Start: 01/03/19 16:37 Freq: Status: Active Protocol: Document 01/03/19 16:40 NFW (Rec: 01/03/19 17:45 NFW [id number]) Hip Strength Hip Manual Muscle Testing Left Flexion (L2) 4- Good- Extension (S1) 4 Good Abduction 4 Good External Rotation 4 Good Right Flexion (L2) 4- Good- Extension (S1) 4 Good Abduction 4 Good External Rotation 4 Good Knee Strength Knee Manual Muscle Testing Left Flexion (S2) 4 Good Extension (L3) 4 Good Right Flexion (S2) 5 Normal Extension (L3) 5 Normal Ankle/Foot Strength Ankle and Foot Manual Muscle Testing Right Dorsiflexion (L4) 4 Good Plantarflexion (S1) 4 Good Left Dorsiflexion (L4) 4 Good Plantarflexion (S1) 4 Good Toe Strength Toe Manual Muscle Testing Right Great Toe Extension 3 Fair Left Great Toe Extension 4 Good PT-OP-Q Treatments Start: 01/03/19 16:37 Freq: Status: Active Protocol: Document 01/12/19 09:00 NFW (Rec: 01/12/19 12:53 [facility] [id number]) Therapeutic Activity Therapeutic Activity 4 Name Functional Standing Comments Discussion use of wt shifting, staggered standing with performing standing activities ...dishes, laundry, vacuuming, sweeping, etc. 3 Name Relaxation and mobility into ankles Comments Activity prior to going to bed at night, elevating one LE overhead in bed and performing ankle pumps and circles. Alternate with other leg. 2 Name Proper balancing of BW over COG Comments Discussion static standing and proper balancing of BW over COG. Main fault is locking knees into extension. 1 Name Reducing stain through upper and lower back Comments Discussion proper posture of upper and lower back with daily activities. Instructed on using double hitchhiker and shoulder rolls to help with positioning and decreasing muscle tension. Gait Training Gait Activity level gait Description Gait training Device Used none Comments Cuing to not lock knees in extension at mid stance. Equal arm swing, equal strides . 2 Description Stairclimbing Device Used handrail Treatment Focus Up and down stairs one step over another. Comments Pt has been ascending and descending stairs one step at a time leaning on the rail. Able to accomplish properly with use of single handrail. PT-OP-T Assessment and Plan Start: 01/03/19 16:37 Freq: Status: Active Protocol: Document 01/12/19 09:00 [facility] (Rec: 01/12/19 12:53 [facility] [id number]) Physical Therapy Assessment Goals Four Impairment Awareness of proper movement patterns and body mechanics for LB Short Term Goal (STG) Proper body mechanics with transitional activities. STG Duration 02/04/19 [facility] Goal (LTG) Proper body mechanics for lifting and functional standing activities. LTG Duration 03/07/19 Three Impairment Poor core strength Short Term Goal (STG) Establish abdominal stabilization HEP STG Duration 02/04/19 Acute Care Nurse Practitioner Goal (LTG) Advance to level II stabilization activities LTG Duration 03/07/19 Oswestry disability index score Short Term Goal (STG) ecrease score to no greater than 40% Two Impairment Decrease functional activity level Short Term Goal (STG) Improve standing balance on each extremity to 10 seconds. STG Duration 02/04/19 Acute Care Nurse Practitioner Goal (LTG) Increase strength/endurance so that patient can perform light lifting more than 10 pounds, and to vacuum one room at a time. LTG Duration 03/07/19 One Impairment Weakness into LEs Acute Care Nurse Practitioner Goal (LTG) MMT to LE grade 5/5 strength LTG Duration 03/07/19 Assessment Summary Assessment Pt with notable functional weakness pelvic girdle and into gloria quadraceps. Has developed bad habits to accomplish daily actitivies. Very receptive to all information provided. Physical Therapy Plan Frequency and Duration Frequency of Treatment 2x/Week Duration of Treatment 8 weeks Plan of Care Start Date 01/03/19 Plan of Care End Date 03/07/19 Next Visit Focus/Plan Next Note Type Treatment Note Next Visit Plan Body [facility] review
--- NOTE | 2019-01-17 17:54 | PT.OTN ---
Current Diagnoses Arthrodesis status (01/17/19) Physical Therapy Treatment Note PT-OP-A Visit Information Start: 01/03/19 16:37 Freq: Status: Active Protocol: Document 01/17/19 08:15 NFW (Rec: 01/17/19 17:53 NFW [id number]) Out-Patient Physical Therapy Visit Information Visit Information Visit Type Treatment Note Visit Start Time 08:15 Visit Stop Time 09:00 Total Visit Minutes 45 Visit Number 5 Number of SIMPLEX OPERATOR Visits 0 PT-OP-B Current Condition Start: 01/03/19 16:37 Freq: Status: Active Protocol: Document 01/03/19 16:40 NFW (Rec: 01/03/19 17:45 NFW [id number]) Current Condition History of Current Condition Onset Date 10/10/18 Current Complaints Weak with decrease balance, low functional activity level. History of Current Condition Patient had lumbar fusion . Had secondary edema and blood clots requiring debridment on 10/26/18 and now doing very well. Future Testing and Treatments Planned 01/18/19 CAT scan left foot - to assess possibility of removing screws from talonavicular fusion performed 02/22 Treatment Goals Patient/Caregiver Goals Regain core and LE strength. Would like to be able to return to extracurricular activities of gardening, cleaning her home and increasing her walking time. Weightbearing tolerance limited by pain in ankles. May need screws removed from left ankle and possible may need talonavicular fusion on right ankle. Prior Functional Status Baseline Function- ADL's Modified Independent Baseline Function- Mobility Modified Independent Current Functional Impairments (Reported) Functional Limitations- ADL's None Functional Limitations- Mobility/Gait Walking limited to maximum of one block due to ankles/feet. 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 Patient was placed on minimal activities by surgeon. Functional Limitations- Recreation/ Has not been able to resume Hobbies any gardening activities. PT-OP-C Subjective Start: 01/03/19 16:37 Freq: Status: Active Protocol: Document 01/17/19 08:15 NFW (Rec: 01/17/19 17:53 NFW [id number]) OP-PT Subjective Patient Comments Patient Comments Pt with concerns of recurring soreness into cervical spine. PT-OP-D Balance Start: 01/03/19 16:37 Freq: Status: Active Protocol: Document 01/03/19 16:40 NFW (Rec: 01/03/19 17:45 NFW [id number]) OP-PT Balance Assessment Sitting Balance Static Sitting Balance Ability Normal Dynamic Sitting Balance Ability Normal Standing Balance Static Standing Balance Ability Good Dynamic Standing Balance Ability Good Standing Balance Comments Both good for the first 5 minutes after that time pain in feet, not due to LB. Loera Fall Scale Copyright Permission PT-OP-G Mobility & Gait Start: 01/03/19 16:37 Freq: Status: Active Protocol: Document 01/03/19 16:40 NFW (Rec: 01/03/19 17:45 NFW [id number]) OP Mobility Evaluation Functional Movements Lifting and Carrying Lifting/carrying limited to < 5 lbs. Squats Limited by pain in feet/ankles . Running Assessment Unable OP Gait Assessment Gait Gait Assistance Required: Independent Assistive Devices Assistive Device None Gait Deviations General Gait Pattern Antalgic,Decreased Stride Length Factors Limiting Gait Function Factors Limiting Gait Function Decreased Activity Tolerance, Decreased Strength,Pain Comments Gait Comments Gait is antalgic favoring the right foot and ankle. Patient hold RLE in ER in ambulation. PT-OP-H Neuro Start: 01/03/19 16:37 Freq: Status: Active Protocol: Document 01/03/19 16:40 NFW (Rec: 01/03/19 17:45 NFW [id number]) Sensation Evaluation Gross Sensation Gross Sensation Right LE Impaired Sensation Description Numbness,Tingling,Pins & [place] Dermatome Impairments L5,S1,S2 Deep Tendon Reflex & Clonus Assessment Deep Tendon Reflex Bilateral Achilles Deep Tendon Reflex 1+ Diminished Bilateral Patellar Deep Tendon Reflex 1+ Diminished PT-OP-J Posture/Palpation/Skin Start: 01/03/19 16:37 Freq: Status: Active Protocol: Document 01/03/19 16:40 NFW (Rec: 01/03/19 17:45 NFW [id number]) Posture Evaluation Position Standing Shoulder Posture (R) Forward,(R) Elevated Scapula Posture (L) Neutral,(R) Winged Pelvis Posture (L) Iliac Crest Superior Weight Distribution Weight Shifted Left,Decreased Wt.Bear on (R) Hip Posture (L) Neutral,(R) Neutral Knee Posture (R) Genu Valgus,(L) Genu Recurvatum,(R) Genu Recurvatum Foot Arch (L) No Arch,(R) No Arch Palpation Assessment Location One Palpation Location Lumbar Spine Palpation Details No problems with palpation at and around surgical site. PT-OP-K Range of Motion Start: 01/03/19 16:37 Freq: Status: Active Protocol: Document 01/03/19 16:40 NFW (Rec: 01/03/19 17:45 NFW [id number]) Lumbar Spine Range of Motion Lumbar Spine Active Comments Active ROM not tested due to recent lumbar fusion. Hip Goniometric Range of Motion Hip Right Active Hip ROM WFL Yes Testing Position Supine Straight Leg Raise 50 Left Active Hip ROM WFL Yes Testing Position Supine Straight Leg Raise 50 Hip ROM Limitations Hip ROM Limitations Soft Tissue Tightness Comments Patient has functional ROM but decrease flexibility noted in HS/Gastrocs/hip abductors/hip flexors. PT-OP-L Special Tests Start: 01/03/19 16:37 Freq: Status: Active Protocol: Document 01/03/19 16:40 NFW (Rec: 01/03/19 17:45 NFW [id number]) Special Tests Other Special Tests Special Tests One Legged Balancing - right unable, left 5 seconds PT-OP-M Strength Start: 01/03/19 16:37 Freq: Status: Active Protocol: Document 01/03/19 16:40 NFW (Rec: 01/03/19 17:45 NFW [id number]) Hip Strength Hip Manual Muscle Testing Left Flexion (L2) 4- Good- Extension (S1) 4 Good Abduction 4 Good External Rotation 4 Good Right Flexion (L2) 4- Good- Extension (S1) 4 Good Abduction 4 Good External Rotation 4 Good Knee Strength Knee Manual Muscle Testing Left Flexion (S2) 4 Good Extension (L3) 4 Good Right Flexion (S2) 5 Normal Extension (L3) 5 Normal Ankle/Foot Strength Ankle and Foot Manual Muscle Testing Right Dorsiflexion (L4) 4 Good Plantarflexion (S1) 4 Good Left Dorsiflexion (L4) 4 Good Plantarflexion (S1) 4 Good Toe Strength Toe Manual Muscle Testing Right Great Toe Extension 3 Fair Left Great Toe Extension 4 Good PT-OP-Q Treatments Start: 01/03/19 16:37 Freq: Status: Active Protocol: Document 01/17/19 08:15 NFW (Rec: 01/17/19 17:53 NFW [id number]) Therapeutic Activity Therapeutic Activity 4 Name Functional Standing Comments Review of previous instructed information 2 Name Proper balancing of BW over COG Comments Review of proper standing and refraining from locking knees into extension. sleep Name Review proper sleeping positions Comments Concentration on position of cervical spine. Manual Therapy Treatment Manual Traction Cervical Details Manual Traction Body Position Hooklying Manual Techniques 2 Type STM Body Location Cervical spine Body Position Hooklying Comments STM with segmental distraction , gentle stretching into side bending. PT-OP-T Assessment and Plan Start: 01/03/19 16:37 Freq: Status: Active Protocol: Document 01/17/19 08:15 NFW (Rec: 01/17/19 17:53 NFW [id number]) Physical Therapy Assessment Assessment Summary Assessment Pt absorbing information and attempting to follow through with making changes in her movement patterns with her daily activities. STM helpful in alleviating pain cspine. Physical Therapy Plan Next Visit Focus/Plan Next Note Type Treatment Note Next Visit Plan Review goals
--- NOTE | 2019-01-19 09:16 | PT.OTN ---
Current Diagnoses Arthrodesis status (01/19/19) Physical Therapy Treatment Note PT-OP-A Visit Information Start: 01/03/19 16:37 Freq: Status: Active Protocol: Document 01/19/19 08:14 NFW (Rec: 01/19/19 09:15 NFW [id number]) Out-Patient Physical Therapy Visit Information Visit Information Visit Type Treatment Note Visit Start Time 08:14 Visit Stop Time 08:58 Total Visit Minutes 44 Visit Number 6 Number of FORESTRY AID Visits 0 PT-OP-B Current Condition Start: 01/03/19 16:37 Freq: Status: Active Protocol: Document 01/03/19 16:40 NFW (Rec: 01/03/19 17:45 NFW [id number]) Current Condition History of Current Condition Onset Date 10/10/18 Current Complaints Weak with decrease balance, low functional activity level. History of Current Condition Patient had lumbar fusion . Had secondary edema and blood clots requiring debridment on 10/26/18 and now doing very well. Future Testing and Treatments Planned 01/18/19 CAT scan left foot - to assess possibility of removing screws from talonavicular fusion performed 02/22 Treatment Goals Patient/Caregiver Goals Regain core and LE strength. Would like to be able to return to extracurricular activities of gardening, cleaning her home and increasing her walking time. Weightbearing tolerance limited by pain in ankles. May need screws removed from left ankle and possible may need talonavicular fusion on right ankle. Prior Functional Status Baseline Function- ADL's Modified Independent Baseline Function- Mobility Modified Independent Current Functional Impairments (Reported) Functional Limitations- ADL's None Functional Limitations- Mobility/Gait Walking limited to maximum of one block due to ankles/feet. Functional Limitations- Work/School Retired. 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 Patient was placed on minimal activities by surgeon. Functional Limitations- Recreation/ Has not been able to resume Hobbies any gardening activities. PT-OP-C Subjective Start: 01/03/19 16:37 Freq: Status: Active Protocol: Document 01/19/19 08:14 NFW (Rec: 01/19/19 09:15 NFW [id number]) OP-PT Subjective Patient Comments Patient Comments Cervical spine improved from last treatment. This am woke up with higher than normal numbness right medial border of foot ascending into the lower leg. Patient Reported Progress Improving PT-OP-D Balance Start: 01/03/19 16:37 Freq: Status: Active Protocol: Document 01/03/19 16:40 NFW (Rec: 01/03/19 17:45 NFW [id number]) OP-PT Balance Assessment Sitting Balance Static Sitting Balance Ability Normal Dynamic Sitting Balance Ability Normal Standing Balance Static Standing Balance Ability Good Dynamic Standing Balance Ability Good Standing Balance Comments Both good for the first 5 minutes after that time pain in feet, not due to LB. Loera Fall Scale Copyright Permission PT-OP-G Mobility & Gait Start: 01/03/19 16:37 Freq: Status: Active Protocol: Document 01/03/19 16:40 NFW (Rec: 01/03/19 17:45 NFW [id number]) OP Mobility Evaluation Functional Movements Lifting and Carrying Lifting/carrying limited to < 5 lbs. Squats Limited by pain in feet/ankles . Running Assessment Unable OP Gait Assessment Gait Gait Assistance Required: Independent Assistive Devices Assistive Device None Gait Deviations General Gait Pattern Antalgic,Decreased Stride Length Factors Limiting Gait Function Factors Limiting Gait Function Decreased Activity Tolerance, Decreased Strength,Pain Comments Gait Comments Gait is antalgic favoring the right foot and ankle. Patient hold RLE in ER in ambulation. PT-OP-H Neuro Start: 01/03/19 16:37 Freq: Status: Active Protocol: Document 01/03/19 16:40 NFW (Rec: 01/03/19 17:45 NFW [id number]) Sensation Evaluation Gross Sensation Gross Sensation Right LE Impaired Sensation Description Numbness,Tingling,Pins & [place] Dermatome Impairments L5,S1,S2 Deep Tendon Reflex & Clonus Assessment Deep Tendon Reflex Bilateral Achilles Deep Tendon Reflex 1+ Diminished Bilateral Patellar Deep Tendon Reflex 1+ Diminished PT-OP-J Posture/Palpation/Skin Start: 01/03/19 16:37 Freq: Status: Active Protocol: Document 01/03/19 16:40 NFW (Rec: 01/03/19 17:45 NFW [id number]) Posture Evaluation Position Standing Shoulder Posture (R) Forward,(R) Elevated Scapula Posture (L) Neutral,(R) Winged Pelvis Posture (L) Iliac Crest Superior Weight Distribution Weight Shifted Left,Decreased Wt.Bear on (R) Hip Posture (L) Neutral,(R) Neutral Knee Posture (R) Genu Valgus,(L) Genu Recurvatum,(R) Genu Recurvatum Foot Arch (L) No Arch,(R) No Arch Palpation Assessment Location One Palpation Location Lumbar Spine Palpation Details No problems with palpation at and around surgical site. PT-OP-K Range of Motion Start: 01/03/19 16:37 Freq: Status: Active Protocol: Document 01/03/19 16:40 NFW (Rec: 01/03/19 17:45 NFW [id number]) Lumbar Spine Range of Motion Lumbar Spine Active Comments Active ROM not tested due to recent lumbar fusion. Hip Goniometric Range of Motion Hip Right Active Hip ROM WFL Yes Testing Position Supine Straight Leg Raise 50 Left Active Hip ROM WFL Yes Testing Position Supine Straight Leg Raise 50 Hip ROM Limitations Hip ROM Limitations Soft Tissue Tightness Comments Patient has functional ROM but decrease flexibility noted in HS/Gastrocs/hip abductors/hip flexors. PT-OP-L Special Tests Start: 01/03/19 16:37 Freq: Status: Active Protocol: Document 01/03/19 16:40 NFW (Rec: 01/03/19 17:45 NFW [id number]) Special Tests Other Special Tests Special Tests One Legged Balancing - right unable, left 5 seconds PT-OP-M Strength Start: 01/03/19 16:37 Freq: Status: Active Protocol: Document 01/03/19 16:40 NFW (Rec: 01/03/19 17:45 NFW [id number]) Hip Strength Hip Manual Muscle Testing Left Flexion (L2) 4- Good- Extension (S1) 4 Good Abduction 4 Good External Rotation 4 Good Right Flexion (L2) 4- Good- Extension (S1) 4 Good Abduction 4 Good External Rotation 4 Good Knee Strength Knee Manual Muscle Testing Left Flexion (S2) 4 Good Extension (L3) 4 Good Right Flexion (S2) 5 Normal Extension (L3) 5 Normal Ankle/Foot Strength Ankle and Foot Manual Muscle Testing Right Dorsiflexion (L4) 4 Good Plantarflexion (S1) 4 Good Left Dorsiflexion (L4) 4 Good Plantarflexion (S1) 4 Good Toe Strength Toe Manual Muscle Testing Right Great Toe Extension 3 Fair Left Great Toe Extension 4 Good PT-OP-Q Treatments Start: 01/03/19 16:37 Freq: Status: Active Protocol: Document 01/19/19 08:14 NF (Rec: 01/19/19 09:15 NFW [id number]) Gym Equipment Shuttle Balance 1 Details Static standing Comments Head turns, UE to shoulder level. Heel to toe rocks. Staggered stance balance, forward and backward wt shift. Therapeutic Activity Therapeutic Activity 7 Name Balancing Comments Feet together - eyes closed; One legged balancing - difficult. Tandem walking. 6 Name Body mechanics with lifting Comments Assessed ability to lift from 5 from floor 5, 7 & 10 lbs. Performed properly and safely. Pt pleased with her ability. 5 Name Body positioning to relieve numbness Comments Positional distraction with LEs rotated right relieved numbness somewhat. Pt has had this numbness since surgery to l spine. To perform this activity lightly and mindfully . Gait Training Gait Activity 2 Description Stairclimbing Device Used handrail Treatment Focus Up and down stairs one step over another. Comments One step after another, decrease dependence on UEs with actitivity. PT-OP-T Assessment and Plan Start: 01/03/19 16:37 Freq: Status: Active Protocol: Document 01/19/19 08:14 NF (Rec: 01/19/19 09:15 [facility] [id number]) Physical Therapy Assessment Goals Four Impairment Awareness of proper movement patterns and body mechanics for LB Short Term Goal (STG) Goal achieved 01/19/19 [employer] Goal (LTG) Goal achieved 01/19/19 Oswestry disability index score Short Term Goal (STG) ecrease score to no greater than 40% Two Impairment Decrease functional activity level Short Term Goal (STG) Improve standing balance on each extremity to 10 seconds. STG Duration 02/04/19 [facility] Goal (LTG) Increase strength/endurance so that patient can perform light lifting more than 10 pounds, and to vacuum one room at a time. LTG Duration 03/07/19 One Impairment Weakness into LEs [facility] Goal (LTG) MMT to LE grade 5/5 strength LTG Duration 03/07/19 Progress Towards Goals Progress Towards Goals Progressing Toward Goals Progress Comments Pt achieved her personal goal of being able to clean her house, including vacuuming in one day. Able to do her normal cooking and lift her cast iron skillet. Assessment Summary Assessment Pt has progressed nicely. She reveals residual numbness right foot, needs advancement in core strengthening and balancing. She has much greater awareness of proper upright posture and body mechanics. Physical Therapy Plan Frequency and Duration Frequency of Treatment 2x/Week Duration of Treatment 8 weeks Plan of Care Start Date 01/03/19 Plan of Care End Date 03/07/19 Next Visit Focus/Plan Next Note Type Treatment Note Next Visit Plan Advancement in core strengthening and balance.
--- NOTE | 2019-01-23 14:14 | PT.OTN ---
Current Diagnoses Arthrodesis status (01/23/19) Physical Therapy Treatment Note PT-OP-A Visit Information Start: 01/03/19 16:37 Freq: Status: Active Protocol: Document 01/23/19 08:56 SAK (Rec: 01/23/19 09:50 [facility] [id number]) Out-Patient Physical Therapy Visit Information Visit Information Visit Type Treatment Note Visit Start Time 09:00 Visit Stop Time 09:55 Total Visit Minutes 55 Visit Number 7 Number of EXCHANGE TROUBLE SHOOTER Visits 0 PT-OP-B Current Condition Start: 01/03/19 16:37 Freq: Status: Active Protocol: Document 01/03/19 16:40 NFW (Rec: 01/03/19 17:45 NFW [id number]) Current Condition History of Current Condition Onset Date 10/10/18 Current Complaints Weak with decrease balance, low functional activity level. History of Current Condition Patient had lumbar fusion . Had secondary edema and blood clots requiring debridment on 10/26/18 and now doing very well. Future Testing and Treatments Planned 01/18/19 CAT scan left foot - to assess possibility of removing screws from talonavicular fusion performed 02/22 Treatment Goals Patient/Caregiver Goals Regain core and LE strength. Would like to be able to return to extracurricular activities of gardening, cleaning her home and increasing her walking time. Weightbearing tolerance limited by pain in ankles. May need screws removed from left ankle and possible may need talonavicular fusion on right ankle. Prior Functional Status Baseline Function- ADL's Modified Independent Baseline Function- Mobility Modified Independent Current Functional Impairments (Reported) Functional Limitations- ADL's None Functional Limitations- Mobility/Gait Walking limited to maximum of one block due to ankles/feet. 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 Patient was placed on minimal activities by surgeon. Functional Limitations- Recreation/ Has not been able to resume Hobbies any gardening activities. PT-OP-C Subjective Start: 01/03/19 16:37 Freq: Status: Active Protocol: Document 01/23/19 08:56 SAK (Rec: 01/23/19 09:50 [facility]AK [id number]) OP-PT Subjective Patient Comments Patient Comments Had some sciatic in middle of night a few days ago with no known reason but has resolved. Not sore after HEP but sore after doing pool exercises PT-OP-D Balance Start: 01/03/19 16:37 Freq: Status: Active Protocol: Document 01/03/19 16:40 NFW (Rec: 01/03/19 17:45 NFW [id number]) OP-PT Balance Assessment Sitting Balance Static Sitting Balance Ability Normal Dynamic Sitting Balance Ability Normal Standing Balance Static Standing Balance Ability Good Dynamic Standing Balance Ability Good Standing Balance Comments Both good for the first 5 minutes after that time pain in feet, not due to LB. Loera Fall Scale Copyright Permission PT-OP-G Mobility & Gait Start: 01/03/19 16:37 Freq: Status: Active Protocol: Document 01/03/19 16:40 NFW (Rec: 01/03/19 17:45 NFW [id number]) OP Mobility Evaluation Functional Movements Lifting and Carrying Lifting/carrying limited to < 5 lbs. Squats Limited by pain in feet/ankles . Running Assessment Unable OP Gait Assessment Gait Gait Assistance Required: Independent Assistive Devices Assistive Device None Gait Deviations General Gait Pattern Antalgic,Decreased Stride Length Factors Limiting Gait Function Factors Limiting Gait Function Decreased Activity Tolerance, Decreased Strength,Pain Comments Gait Comments Gait is antalgic favoring the right foot and ankle. Patient hold RLE in ER in ambulation. PT-OP-H Neuro Start: 01/03/19 16:37 Freq: Status: Active Protocol: Document 01/03/19 16:40 NFW (Rec: 01/03/19 17:45 NFW [id number]) Sensation Evaluation Gross Sensation Gross Sensation Right LE Impaired Sensation Description Numbness,Tingling,Pins & [place] Dermatome Impairments L5,S1,S2 Deep Tendon Reflex & Clonus Assessment Deep Tendon Reflex Bilateral Achilles Deep Tendon Reflex 1+ Diminished Bilateral Patellar Deep Tendon Reflex 1+ Diminished PT-OP-J Posture/Palpation/Skin Start: 01/03/19 16:37 Freq: Status: Active Protocol: Document 01/03/19 16:40 NFW (Rec: 01/03/19 17:45 NFW [id number]) Posture Evaluation Position Standing Shoulder Posture (R) Forward,(R) Elevated Scapula Posture (L) Neutral,(R) Winged Pelvis Posture (L) Iliac Crest Superior Weight Distribution Weight Shifted Left,Decreased Wt.Bear on (R) Hip Posture (L) Neutral,(R) Neutral Knee Posture (R) Genu Valgus,(L) Genu Recurvatum,(R) Genu Recurvatum Foot Arch (L) No Arch,(R) No Arch Palpation Assessment Location One Palpation Location Lumbar Spine Palpation Details No problems with palpation at and around surgical site. PT-OP-K Range of Motion Start: 01/03/19 16:37 Freq: Status: Active Protocol: Document 01/03/19 16:40 NFW (Rec: 01/03/19 17:45 NFW [id number]) Lumbar Spine Range of Motion Lumbar Spine Active Comments Active ROM not tested due to recent lumbar fusion. Hip Goniometric Range of Motion Hip Right Active Hip ROM WFL Yes Testing Position Supine Straight Leg Raise 50 Left Active Hip ROM WFL Yes Testing Position Supine Straight Leg Raise 50 Hip ROM Limitations Hip ROM Limitations Soft Tissue Tightness Comments Patient has functional ROM but decrease flexibility noted in HS/Gastrocs/hip abductors/hip flexors. PT-OP-L Special Tests Start: 01/03/19 16:37 Freq: Status: Active Protocol: Document 01/03/19 16:40 NFW (Rec: 01/03/19 17:45 NFW [id number]) Special Tests Other Special Tests Special Tests One Legged Balancing - right unable, left 5 seconds PT-OP-M Strength Start: 01/03/19 16:37 Freq: Status: Active Protocol: Document 01/03/19 16:40 NFW (Rec: 01/03/19 17:45 NFW [id number]) Hip Strength Hip Manual Muscle Testing Left Flexion (L2) 4- Good- Extension (S1) 4 Good Abduction 4 Good External Rotation 4 Good Right Flexion (L2) 4- Good- Extension (S1) 4 Good Abduction 4 Good External Rotation 4 Good Knee Strength Knee Manual Muscle Testing Left Flexion (S2) 4 Good Extension (L3) 4 Good Right Flexion (S2) 5 Normal Extension (L3) 5 Normal Ankle/Foot Strength Ankle and Foot Manual Muscle Testing Right Dorsiflexion (L4) 4 Good Plantarflexion (S1) 4 Good Left Dorsiflexion (L4) 4 Good Plantarflexion (S1) 4 Good Toe Strength Toe Manual Muscle Testing Right Great Toe Extension 3 Fair Left Great Toe Extension 4 Good PT-OP-Q Treatments Start: 01/03/19 16:37 Freq: Status: Active Protocol: Document 01/23/19 08:56 [facility] (Rec: 01/23/19 09:50 [facility] [id number]) Gym Equipment Shuttle Recovery Bilateral Squats Resistance 50 Shuttle Recovery Platform Stable Reps/Time 10x2 Therapeutic Exercises Supine Exercises 6 Supine Exercise Name Bridge Comments not done due to thoracic pain 5 Supine Exercise Name Abdominal brace, march Side bilateral Reps/Minutes 10 x each Comments emphasis on pushing through opposite LE for core engagement and stability 4 Supine Exercise Name Abdominal Brace, UE flexion alternate and double Reps/Minutes 3x Comments discontinued due to mid thoracic pain 3 Supine Exercise Name Abdominal Brace Side bilateral Reps/Minutes 10 x Comments Cuing for proper breathing 2 Supine Exercise Name Glut Sets, LE extended Side bilateral Reps/Minutes 10x5 sec holds pelvic tilts Comments not done due to discomfort stretch Supine Exercise Name Hamstring, supine opposite leg flexed with foot flat Side bilateral Reps/Minutes 2x30 ball squeeze Supine Exercise Name Isometric Hip Adduction Side bilateral Equipment Used 9 ball Reps/Minutes 10 x, 5 sec holds TrA activation Supine Exercise Name Isometric Hip Abduction Side bilateral Equipment Used Level 6 tband Reps/Minutes 10x, 5 sec holds Therapeutic Activity Therapeutic Activity deep breathing Name abdominal, lateral chest, posterior Comments for muscle relaxation and facilitation of gentle mobility throughout thoracic spine 6 Name Body mechanics with lifting Comments use of yardstick to facilitate postural alignment and core activation sit to stand Name focus on neutral spine & glute & core control Reps/Minutes 12x Comments use of yardstick for tactile feedback Manual Therapy Treatment Soft Tissue Mobilization 1 Body Location mid thoracic paraspinals, upper traps Intensity/Depth gentle mid thoracic, mod to upper traps Comments sidelying and hooklying Self-Care/Home Management Treatment Education Patient Education Body Mechanics,Home Exercise Program,Posture PT-OP-R Modalities Start: 01/03/19 16:37 Freq: Status: Active Protocol: Document 01/23/19 08:56 [facility] (Rec: 01/23/19 14:14 [facility] [id number]) Hot Pack/Cold Pack Treatment Cold Pack Location thoracic and lumbar spine Patient Position Sitting Patient Tolerance Fair Comments started supine but had poor tolerance, moved to sitting PT-OP-T Assessment and Plan Start: 01/03/19 16:37 Freq: Status: Active Protocol: Document 01/23/19 08:56 [facility] (Rec: 11/18/19 09:50 [facility] [id number]) Physical Therapy Assessment Goals Four Impairment Awareness of proper movement patterns and body mechanics for LB Short Term Goal (STG) Goal achieved 01/19/19 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 LTG Duration 03/07/19 One Impairment Weakness into LEs [facility] Goal (LTG) MMT to LE grade 5/5 strength LTG Duration 03/07/19 Progress Towards Goals Progress Towards Goals Progressing Toward Goals Progress Comments Adjustments made to HEP due to reported increased soreness mid-thoracic spine as well as pain with pelvic tilt and bridge. Cues for pushing through opposite LE with supine may. Good response to use of yardstick for postural cuing with sit to stand and lifting for proper hip hinge. Physical Therapy Plan Frequency and Duration Frequency of Treatment 2x/Week Duration of Treatment 8 weeks Plan of Care Start Date 01/03/19 Plan of Care End Date 03/07/19 Next Visit Focus/Plan Next Note Type Treatment Note Next Visit Plan having standing CT left foot tomorrow due to broken screw and plans to discuss getting new orthotics with physician
--- NOTE | 2019-01-26 11:38 | PT.OTN ---
Current Diagnoses Disorder of muscle, unspecified (01/26/19) Arthrodesis status (01/26/19) Physical Therapy Treatment Note PT-OP-A Visit Information Start: 01/03/19 16:37 Freq: Status: Active Protocol: Document 01/26/19 09:00 SAK (Rec: 01/26/19 09:47 SAK [id number]) Out-Patient Physical Therapy Visit Information Visit Information Visit Type Treatment Note Visit Start Time 09:00 Visit Stop Time 09:55 Total Visit Minutes 55 Visit Number 8 Number of PRESCHOOL TEACHER'S ASSISTANT Visits 0 PT-OP-B Current Condition Start: 01/03/19 16:37 Freq: Status: Active Protocol: Document 01/03/19 16:40 NFW (Rec: 01/03/19 17:45 NFW [id number]) Current Condition History of Current Condition Onset Date 10/10/18 Current Complaints Weak with decrease balance, low functional activity level. History of Current Condition Patient had lumbar fusion . Had secondary edema and blood clots requiring debridment on 10/26/18 and now doing very well. Future Testing and Treatments Planned 01/18/19 CAT scan left foot - to assess possibility of removing screws from talonavicular fusion performed 02/22 Treatment Goals Patient/Caregiver Goals Regain core and LE strength. Would like to be able to return to extracurricular activities of gardening, cleaning her home and increasing her walking time. Weightbearing tolerance limited by pain in ankles. May need screws removed from left ankle and possible may need talonavicular fusion on right ankle. Prior Functional Status Baseline Function- ADL's Modified Independent Baseline Function- Mobility Modified Independent Current Functional Impairments (Reported) Functional Limitations- ADL's None Functional Limitations- Mobility/Gait Walking limited to maximum of one block due to ankles/feet. Functional Limitations- Work/School Retired. 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 Patient was placed on minimal activities by surgeon. Functional Limitations- Recreation/ Has not been able to resume Hobbies any gardening activities. PT-OP-C Subjective Start: 01/03/19 16:37 Freq: Status: Active Protocol: Document 01/26/19 09:00 SAK (Rec: 01/26/19 09:47 SAK [id number]) OP-PT Subjective Patient Comments Patient Comments Saw foot surgeon yesterday who reported talonavicular joint left foot is fused. 2 screws intact, 1 screw broken but doesn't need to be removed unless bothering her. Concerned about right foot due to it collapsing, being referred to doctor in [place] for special orthotic. Has new prescription with order to stretch and strengthen gloria calves. Saw inspector cold working and will be working on decreasing some medications. In [place] after walking 2 blocks and reports she had to take 2 Oxycodone due to bilateral foot pain. upper back/mid thoracic spine is better today. PT-OP-D Balance Start: 01/03/19 16:37 Freq: Status: Active Protocol: Document 01/03/19 16:40 NFW (Rec: 01/03/19 17:45 NFW [id number]) OP-PT Balance Assessment Sitting Balance Static Sitting Balance Ability Normal Dynamic Sitting Balance Ability Normal Standing Balance Static Standing Balance Ability Good Dynamic Standing Balance Ability Good Standing Balance Comments Both good for the first 5 minutes after that time pain in feet, not due to LB. Loera Fall Scale Copyright Permission PT-OP-G Mobility & Gait Start: 01/03/19 16:37 Freq: Status: Active Protocol: Document 01/03/19 16:40 NFW (Rec: 01/03/19 17:45 NFW [id number]) OP Mobility Evaluation Functional Movements Lifting and Carrying Lifting/carrying limited to < 5 lbs. Squats Limited by pain in feet/ankles . Running Assessment Unable OP Gait Assessment Gait Gait Assistance Required: Independent Assistive Devices Assistive Device None Gait Deviations General Gait Pattern Antalgic,Decreased Stride Length Factors Limiting Gait Function Factors Limiting Gait Function Decreased Activity Tolerance, Decreased Strength,Pain Comments Gait Comments Gait is antalgic favoring the right foot and ankle. Patient hold RLE in ER in ambulation. PT-OP-H Neuro Start: 01/03/19 16:37 Freq: Status: Active Protocol: Document 01/03/19 16:40 NFW (Rec: 01/03/19 17:45 NFW [id number]) Sensation Evaluation Gross Sensation Gross Sensation Right LE Impaired Sensation Description Numbness,Tingling,Pins & [place] Dermatome Impairments L5,S1,S2 Deep Tendon Reflex & Clonus Assessment Deep Tendon Reflex Bilateral Achilles Deep Tendon Reflex 1+ Diminished Bilateral Patellar Deep Tendon Reflex 1+ Diminished PT-OP-J Posture/Palpation/Skin Start: 01/03/19 16:37 Freq: Status: Active Protocol: Document 01/03/19 16:40 NFW (Rec: 01/03/19 17:45 NFW [id number]) Posture Evaluation Position Standing Shoulder Posture (R) Forward,(R) Elevated Scapula Posture (L) Neutral,(R) Winged Pelvis Posture (L) Iliac Crest Superior Weight Distribution Weight Shifted Left,Decreased Wt.Bear on (R) Hip Posture (L) Neutral,(R) Neutral Knee Posture (R) Genu Valgus,(L) Genu Recurvatum,(R) Genu Recurvatum Foot Arch (L) No Arch,(R) No Arch Palpation Assessment Location One Palpation Location Lumbar Spine Palpation Details No problems with palpation at and around surgical site. PT-OP-K Range of Motion Start: 01/03/19 16:37 Freq: Status: Active Protocol: Document 01/03/19 16:40 NFW (Rec: 01/03/19 17:45 NFW [id number]) Lumbar Spine Range of Motion Lumbar Spine Active Comments Active ROM not tested due to recent lumbar fusion. Hip Goniometric Range of Motion Hip Right Active Hip ROM WFL Yes Testing Position Supine Straight Leg Raise 50 Left Active Hip ROM WFL Yes Testing Position Supine Straight Leg Raise 50 Hip ROM Limitations Hip ROM Limitations Soft Tissue Tightness Comments Patient has functional ROM but decrease flexibility noted in HS/Gastrocs/hip abductors/hip flexors. PT-OP-L Special Tests Start: 01/03/19 16:37 Freq: Status: Active Protocol: Document 01/03/19 16:40 NFW (Rec: 01/03/19 17:45 NFW [id number]) Special Tests Other Special Tests Special Tests One Legged Balancing - right unable, left 5 seconds PT-OP-M Strength Start: 01/03/19 16:37 Freq: Status: Active Protocol: Document 01/03/19 16:40 NFW (Rec: 01/03/19 17:45 NFW [id number]) Hip Strength Hip Manual Muscle Testing Left Flexion (L2) 4- Good- Extension (S1) 4 Good Abduction 4 Good External Rotation 4 Good Right Flexion (L2) 4- Good- Extension (S1) 4 Good Abduction 4 Good External Rotation 4 Good Knee Strength Knee Manual Muscle Testing Left Flexion (S2) 4 Good Extension (L3) 4 Good Right Flexion (S2) 5 Normal Extension (L3) 5 Normal Ankle/Foot Strength Ankle and Foot Manual Muscle Testing Right Dorsiflexion (L4) 4 Good Plantarflexion (S1) 4 Good Left Dorsiflexion (L4) 4 Good Plantarflexion (S1) 4 Good Toe Strength Toe Manual Muscle Testing Right Great Toe Extension 3 Fair Left Great Toe Extension 4 Good PT-OP-Q Treatments Start: 01/03/19 16:37 Freq: Status: Active Protocol: Document 01/26/19 09:00 [facility] (Rec: 01/26/19 09:47 [facility] [id number]) Gym Equipment Shuttle Recovery Bilateral Squats Resistance 50 Shuttle Recovery Platform Stable Reps/Time 10x2 Shuttle Balance 1 Details Static standing Comments Head turns, UE to shoulder level. Heel to toe rocks. Staggered stance balance, forward and backward wt shift. Therapeutic Exercises Supine Exercises alt UE and LE lift Supine Exercise Name with TrA Reps/Minutes 10x Comments bent knee 5 Supine Exercise Name Abdominal brace, march Side bilateral Reps/Minutes 10 x each Comments emphasis on pushing through opposite LE for core engagement and stability stretch Supine Exercise Name Hamstring, supine opposite leg flexed with foot flat Side bilateral Reps/Minutes 2x30 Comments on shuttle leg press Sitting Exercises hip hinge with abdominal activation Reps/Minutes 10x Comments verbal and manual cues gastroc stretch Reps/Minutes 2x30 ankle df,pf,inv,ev Sitting Exercise Name Baps board ex for ankle Side right Equipment Used home baps board brought in by pt Comments cardinal, diagonal planes, circumduction Therapeutic Activity Therapeutic Activity deep breathing Name abdominal, lateral chest, posterior Comments for muscle relaxation and facilitation of gentle mobility throughout thoracic spine 6 Name Body mechanics with lifting Comments use of yardstick to facilitate postural alignment and core activation sit to stand Name focus on neutral spine & glute & core control Reps/Minutes 12x Comments use of yardstick for tactile feedback PT-OP-R Modalities Start: 01/03/19 16:37 Freq: Status: Active Protocol: Document 01/23/19 08:56 [facility] (Rec: 01/23/19 14:14 [facility] [id number]) Hot Pack/Cold Pack Treatment Cold Pack Location thoracic and lumbar spine Patient Position Sitting Patient Tolerance Fair Comments started supine but had poor tolerance, moved to sitting PT-OP-T Assessment and Plan Start: 01/03/19 16:37 Freq: Status: Active Protocol: Document 01/26/19 09:00 SAI (Rec: 01/26/19 09:47 [facility] [id number]) Physical Therapy Assessment Goals Four Impairment Awareness of proper movement patterns and body mechanics for LB Short Term Goal (STG) Goal achieved 01/19/19 Auriculotherapist Goal (LTG) Goal achieved 01/19/19 Three Impairment Poor core strength Short Term Goal (STG) Establish abdominal stabilization HEP STG Duration 02/04/19 Prison Goal (LTG) Advance to level II stabilization activities LTG Duration 03/07/19 Oswestry disability index score Short Term Goal (STG) decrease score to no greater than 40% LBP with radicular symptoms Impairment LBP with radiucular symptoms Short Term Goal (STG) Decrease pain to no greater than 4/10 STG Duration 08/11/18 Auriculotherapist Goal (LTG) Decrease pain to no greater than 2/10 LTG Duration 09/10/18 Two Impairment Decrease functional activity level Short Term Goal (STG) Improve standing balance on each extremity to 10 seconds. STG Duration 02/04/19 Prison Goal (LTG) Increase strength/endurance so that patient can perform light lifting more than 10 pounds, and to vacuum one room at a time. LTG Duration 03/07/19 One Impairment Weakness into LEs Auriculotherapist Goal (LTG) MMT to LE grade 5/5 strength LTG Duration 03/07/19 decreased ROM and strength left foot/ankle Impairment tightness and weakness gloria gastroc Auriculotherapist Goal (LTG) Improve gloria foot and ankle ROM and strength to WNL, patient to be independnet with HEP. LTG Duration 03/07/19 pain right foot/ankle Impairment bilateral foot and ankle pain limiting activity Prison Goal (LTG) Improve pain right foot and ankle sufficient to allow her to increase her walking ability from 2-6 blocks for functional community ambulation LTG Duration 03/07/19 Antalgic gait Impairment antalgic gait, using FWW, 50% WB Short Term Goal (STG) Patient will progress to 100% WB left LE without an increase in pain 06/09/18: good progress, though as above a recent exacerbation of edema and swelling. 07/11/18: goal MET STG Duration MET Prison Goal (LTG) Patient able to ambulate with minimal to no limp using appropriate assistive device as needed 07/11/18: limping primarily due to LBP at this time. 06/09/18: good progress, though habitual compensatory movements require further re- education and contribute to her function-limiting pelvic pain. 07/11/18: exacerbation of prior LBP from above compensatory patterns. LTG Duration 09/10/18 Foot and Ankle Ability Measure ADL's Impairment 31% Short Term Goal (STG) Improve score to at least 50% STG Duration MET Prison Goal (LTG) Improve score to at least 75% 07/11/18: 57% LTG Duration 09/10/18 Lower extremity functional scale Impairment 30% Short Term Goal (STG) Improve score to at least 50% STG Duration MET Auriculotherapist Goal (LTG) Improve lower extremity functional scale to at least 70% 07/11/18: 54% Progress Towards Goals Progress Comments Improving postural alignment and core stabilization though requires occasional cues. Foot pain impacting patient's activity tolerance as well as alignment and contributes to back pathology as well so per doctor's order will address this in our treatments as well . Physical Therapy Plan Frequency and Duration Frequency of Treatment 2x/Week Duration of Treatment 8 weeks Plan of Care Start Date 01/03/19 Plan of Care End Date 03/07/19 Next Visit Focus/Plan Next Note Type Treatment Note Next Visit Plan incoroporate foot/ankle flexibility and strengthening per physician order, continue core strengthening including automatic core engagement activities and exercises.
--- NOTE | 2019-01-30 14:18 | PT.OTN ---
Current Diagnoses Disorder of muscle, unspecified (01/30/19) Arthrodesis status (01/30/19) Physical Therapy Treatment Note PT-OP-A Visit Information Start: 01/03/19 16:37 Freq: Status: Active Protocol: Document 01/30/19 08:12 SAK (Rec: 01/30/19 09:03 SAK [id number]) Out-Patient Physical Therapy Visit Information Visit Information Visit Type Treatment Note Visit Start Time 08:15 Visit Stop Time 09:00 Total Visit Minutes 45 Visit Number 9 Number of WORK AND FAMILY LIFE CONSULTANT Visits 0 PT-OP-B Current Condition Start: 01/03/19 16:37 Freq: Status: Active Protocol: Document 01/03/19 16:40 NFW (Rec: 01/03/19 17:45 NFW [id number]) Current Condition History of Current Condition Onset Date 10/10/18 Current Complaints Weak with decrease balance, low functional activity level. History of Current Condition Patient had lumbar fusion . Had secondary edema and blood clots requiring debridment on 10/26/18 and now doing very well. Future Testing and Treatments Planned 01/18/19 CAT scan left foot - to assess possibility of removing screws from talonavicular fusion performed 02/22 Treatment Goals Patient/Caregiver Goals Regain core and LE strength. Would like to be able to return to extracurricular activities of gardening, cleaning her home and increasing her walking time. Weightbearing tolerance limited by pain in ankles. May need screws removed from left ankle and possible may need talonavicular fusion on right ankle. Prior Functional Status Baseline Function- ADL's Modified Independent Baseline Function- Mobility Modified Independent Current Functional Impairments (Reported) Functional Limitations- ADL's None Functional Limitations- Mobility/Gait Walking limited to maximum of one block due to ankles/feet. 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 Patient was placed on minimal activities by surgeon. Functional Limitations- Recreation/ Has not been able to resume Hobbies any gardening activities. PT-OP-C Subjective Start: 01/03/19 16:37 Freq: Status: Active Protocol: Document 01/30/19 08:12 SAK (Rec: 01/30/19 09:03 SAK [id number]) OP-PT Subjective Patient Comments Patient Comments Used recumbant bike 30 min; was ok, went to pool to do aquatic exercises as previously instructed, used treadmill for 3 min, Nustep x 5. Used leg press at pool and fitness center. Was sore after leg press with some groin pain, thinks due to leg press at pool and fitness center. Thinks she prevously tore posterior tibialis tendon after doing online research. PT-OP-D Balance Start: 01/03/19 16:37 Freq: Status: Active Protocol: Document 01/03/19 16:40 NFW (Rec: 01/03/19 17:45 NFW [id number]) OP-PT Balance Assessment Sitting Balance Static Sitting Balance Ability Normal Dynamic Sitting Balance Ability Normal Standing Balance Static Standing Balance Ability Good Dynamic Standing Balance Ability Good Standing Balance Comments Both good for the first 5 minutes after that time pain in feet, not due to LB. Loera Fall Scale Copyright Permission PT-OP-G Mobility & Gait Start: 01/03/19 16:37 Freq: Status: Active Protocol: Document 01/03/19 16:40 NFW (Rec: 01/03/19 17:45 NFW [id number]) OP Mobility Evaluation Functional Movements Lifting and Carrying Lifting/carrying limited to < 5 lbs. Squats Limited by pain in feet/ankles . Running Assessment Unable OP Gait Assessment Gait Gait Assistance Required: Independent Assistive Devices Assistive Device None Gait Deviations General Gait Pattern Antalgic,Decreased Stride Length Factors Limiting Gait Function Factors Limiting Gait Function Decreased Activity Tolerance, Decreased Strength,Pain Comments Gait Comments Gait is antalgic favoring the right foot and ankle. Patient hold RLE in ER in ambulation. PT-OP-H Neuro Start: 01/03/19 16:37 Freq: Status: Active Protocol: Document 01/03/19 16:40 NFW (Rec: 01/03/19 17:45 NFW [id number]) Sensation Evaluation Gross Sensation Gross Sensation Right LE Impaired Sensation Description Numbness,Tingling,Pins & [place] Dermatome Impairments L5,S1,S2 Deep Tendon Reflex & Clonus Assessment Deep Tendon Reflex Bilateral Achilles Deep Tendon Reflex 1+ Diminished Bilateral Patellar Deep Tendon Reflex 1+ Diminished PT-OP-J Posture/Palpation/Skin Start: 01/03/19 16:37 Freq: Status: Active Protocol: Document 01/03/19 16:40 NFW (Rec: 01/03/19 17:45 NFW [id number]) Posture Evaluation Position Standing Shoulder Posture (R) Forward,(R) Elevated Scapula Posture (L) Neutral,(R) Winged Pelvis Posture (L) Iliac Crest Superior Weight Distribution Weight Shifted Left,Decreased Wt.Bear on (R) Hip Posture (L) Neutral,(R) Neutral Knee Posture (R) Genu Valgus,(L) Genu Recurvatum,(R) Genu Recurvatum Foot Arch (L) No Arch,(R) No Arch Palpation Assessment Location One Palpation Location Lumbar Spine Palpation Details No problems with palpation at and around surgical site. PT-OP-K Range of Motion Start: 01/03/19 16:37 Freq: Status: Active Protocol: Document 01/03/19 16:40 NFW (Rec: 01/03/19 17:45 NFW [id number]) Lumbar Spine Range of Motion Lumbar Spine Active Comments Active ROM not tested due to recent lumbar fusion. Hip Goniometric Range of Motion Hip Right Active Hip ROM WFL Yes Testing Position Supine Straight Leg Raise 50 Left Active Hip ROM WFL Yes Testing Position Supine Straight Leg Raise 50 Hip ROM Limitations Hip ROM Limitations Soft Tissue Tightness Comments Patient has functional ROM but decrease flexibility noted in HS/Gastrocs/hip abductors/hip flexors. PT-OP-L Special Tests Start: 01/03/19 16:37 Freq: Status: Active Protocol: Document 01/03/19 16:40 NFW (Rec: 01/03/19 17:45 NFW [id number]) Special Tests Other Special Tests Special Tests One Legged Balancing - right unable, left 5 seconds PT-OP-M Strength Start: 01/03/19 16:37 Freq: Status: Active Protocol: Document 01/03/19 16:40 NFW (Rec: 01/03/19 17:45 NFW [id number]) Hip Strength Hip Manual Muscle Testing Left Flexion (L2) 4- Good- Extension (S1) 4 Good Abduction 4 Good External Rotation 4 Good Right Flexion (L2) 4- Good- Extension (S1) 4 Good Abduction 4 Good External Rotation 4 Good Knee Strength Knee Manual Muscle Testing Left Flexion (S2) 4 Good Extension (L3) 4 Good Right Flexion (S2) 5 Normal Extension (L3) 5 Normal Ankle/Foot Strength Ankle and Foot Manual Muscle Testing Right Dorsiflexion (L4) 4 Good Plantarflexion (S1) 4 Good Left Dorsiflexion (L4) 4 Good Plantarflexion (S1) 4 Good Toe Strength Toe Manual Muscle Testing Right Great Toe Extension 3 Fair Left Great Toe Extension 4 Good PT-OP-Q Treatments Start: 01/03/19 16:37 Freq: Status: Active Protocol: Document 01/30/19 08:12 [facility] (Rec: 01/30/19 09:03 [facility] [id number]) Cardio Equipment Treadmill Duration (Minutes) 5 Speed 1.0 Gym Equipment Shuttle Recovery Bilateral Squats Resistance 50 Shuttle Recovery Platform Stable Reps/Time 10x2 Shuttle Balance 1 Details Static standing and wt shifts Comments Head turns, UE to shoulder level. Heel to toe rocks. Staggered stance balance, forward and backward wt shift. side to side balance Therapeutic Exercises Supine Exercises automatic core engagement Supine Exercise Name isometric push down with arms Comments PT resistance:sagittal and diagnonal alt UE and LE lift Supine Exercise Name with TrA Reps/Minutes 10x Comments bent knee 5 Supine Exercise Name Abdominal brace, march Side bilateral Reps/Minutes 10 x each Comments emphasis on pushing through opposite LE for core engagement and stability stretch Supine Exercise Name Hamstring, supine opposite leg flexed with foot flat Side bilateral Reps/Minutes 2x30 Comments on shuttle leg press Sitting Exercises hip hinge with abdominal activation Sitting Exercise Name sit to stand Equipment Used yardstick Reps/Minutes 10x Comments verbal and manual cues Standing Exercises HC/arch stretch Equipment Used DAGMAR Reps/Minutes 2x30 Comments bent and straight knee HC stretch Reps/Minutes 2x Comments straight and bent knee Therapeutic Activity Therapeutic Activity sit to stand Name focus on neutral spine & glute & core control Reps/Minutes 12x Comments use of yardstick for tactile feedback Self-Care/Home Management Treatment Education Patient Education Body Mechanics,Home Exercise Program,Posture PT-OP-R Modalities Start: 01/03/19 16:37 Freq: Status: Active Protocol: Document 01/23/19 08:56 [facility] (Rec: 01/23/19 14:14 [facility] [id number]) Hot Pack/Cold Pack Treatment Cold Pack Location thoracic and lumbar spine Patient Position Sitting Patient Tolerance Fair Comments started supine but had poor tolerance, moved to sitting PT-OP-T Assessment and Plan Start: 01/03/19 16:37 Freq: Status: Active Protocol: Document 01/30/19 08:12 [facility] (Rec: 01/30/19 09:03 [facility] [id number]) Physical Therapy Assessment Goals Four Impairment Awareness of proper movement patterns and body mechanics for LB Short Term Goal (STG) Goal achieved 01/19/19 Penitentiary Goal (LTG) Goal achieved 01/19/19 Three Impairment Poor core strength Short Term Goal (STG) Establish abdominal stabilization HEP STG Duration 02/04/19 American History Teacher Goal (LTG) Advance to level II stabilization activities LTG Duration 03/07/19 Oswestry disability index score Short Term Goal (STG) decrease score to no greater than 40% Two Impairment Decrease functional activity level Short Term Goal (STG) Improve standing balance on each extremity to 10 seconds. STG Duration 02/04/19 Penitentiary Goal (LTG) Increase strength/endurance so that patient can perform light lifting more than 10 pounds, and to vacuum one room at a time. LTG Duration 03/07/19 One Impairment Weakness into LEs Penitentiary Goal (LTG) MMT to LE grade 5/5 strength LTG Duration 03/07/19 decreased ROM and strength left foot/ankle Impairment tightness and weakness gloria gastroc Penitentiary Goal (LTG) Improve gloria foot and ankle ROM and strength to WNL, patient to be independnet with HEP. LTG Duration 03/07/19 pain right foot/ankle Impairment bilateral foot and ankle pain limiting activity Penitentiary Goal (LTG) Improve pain right foot and ankle sufficient to allow her to increase her walking ability from 2-6 blocks for functional community ambulation LTG Duration 03/07/19 Progress Towards Goals Progress Comments Good tolerance for gait on treadmill. Improving postural awareness with sit to stand. Needed review of logroll form as started moving segmentally when getting up from treatment table. Physical Therapy Plan Frequency and Duration Frequency of Treatment 2x/Week Duration of Treatment 8 weeks Plan of Care Start Date 01/03/19 Plan of Care End Date 03/07/19 Next Visit Focus/Plan Next Note Type Treatment Note Next Visit Plan Continue to progress per POC
--- NOTE | 2019-02-01 14:31 | PT.OTN ---
Current Diagnoses Disorder of muscle, unspecified (02/01/19) Arthrodesis status (02/01/19) Physical Therapy Treatment Note PT-OP-A Visit Information Start: 01/03/19 16:37 Freq: Status: Active Protocol: Document 02/01/19 08:14 SAK (Rec: 02/01/19 08:59 SAK [id number]) Out-Patient Physical Therapy Visit Information Visit Information Visit Type Treatment Note Visit Start Time 08:15 Visit Stop Time 09:10 Total Visit Minutes 55 Visit Number 10 Number of ECONOMETRICIAN Visits 0 PT-OP-B Current Condition Start: 01/03/19 16:37 Freq: Status: Active Protocol: Document 01/03/19 16:40 NFW (Rec: 01/03/19 17:45 NFW [id number]) Current Condition History of Current Condition Onset Date 10/10/18 Current Complaints Weak with decrease balance, low functional activity level. History of Current Condition Patient had lumbar fusion . Had secondary edema and blood clots requiring debridment on 10/26/18 and now doing very well. Future Testing and Treatments Planned 01/18/19 CAT scan left foot - to assess possibility of removing screws from talonavicular fusion performed 02/22 Treatment Goals Patient/Caregiver Goals Regain core and LE strength. Would like to be able to return to extracurricular activities of gardening, cleaning her home and increasing her walking time. Weightbearing tolerance limited by pain in ankles. May need screws removed from left ankle and possible may need talonavicular fusion on right ankle. Prior Functional Status Baseline Function- ADL's Modified Independent Baseline Function- Mobility Modified Independent Current Functional Impairments (Reported) Functional Limitations- ADL's None Functional Limitations- Mobility/Gait Walking limited to maximum of one block due to ankles/feet. 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 Patient was placed on minimal activities by surgeon. Functional Limitations- Recreation/ Has not been able to resume Hobbies any gardening activities. PT-OP-C Subjective Start: 01/03/19 16:37 Freq: Status: Active Protocol: Document 02/01/19 08:14 SAK (Rec: 02/01/19 08:59 SAK [id number]) OP-PT Subjective Patient Comments Patient Comments Has been referred to [facility] for evaluation for UBC brace for right foot. Intense ache both feet after last session in both arches, thinks too much time on feet. PT-OP-D Balance Start: 01/03/19 16:37 Freq: Status: Active Protocol: Document 01/03/19 16:40 NFW (Rec: 01/03/19 17:45 NFW [id number]) OP-PT Balance Assessment Sitting Balance Static Sitting Balance Ability Normal Dynamic Sitting Balance Ability Normal Standing Balance Static Standing Balance Ability Good Dynamic Standing Balance Ability Good Standing Balance Comments Both good for the first 5 minutes after that time pain in feet, not due to LB. Loera Fall Scale Copyright Permission PT-OP-G Mobility & Gait Start: 01/03/19 16:37 Freq: Status: Active Protocol: Document 01/03/19 16:40 NFW (Rec: 01/03/19 17:45 NFW [id number]) OP Mobility Evaluation Functional Movements Lifting and Carrying Lifting/carrying limited to < 5 lbs. Squats Limited by pain in feet/ankles . Running Assessment Unable OP Gait Assessment Gait Gait Assistance Required: Independent Assistive Devices Assistive Device None Gait Deviations General Gait Pattern Antalgic,Decreased Stride Length Factors Limiting Gait Function Factors Limiting Gait Function Decreased Activity Tolerance, Decreased Strength,Pain Comments Gait Comments Gait is antalgic favoring the right foot and ankle. Patient hold RLE in ER in ambulation. PT-OP-H Neuro Start: 01/03/19 16:37 Freq: Status: Active Protocol: Document 01/03/19 16:40 NFW (Rec: 01/03/19 17:45 NFW [id number]) Sensation Evaluation Gross Sensation Gross Sensation Right LE Impaired Sensation Description Numbness,Tingling,[place] Dermatome Impairments L5,S1,S2 Deep Tendon Reflex & Clonus Assessment Deep Tendon Reflex Bilateral Achilles Deep Tendon Reflex 1+ Diminished Bilateral Patellar Deep Tendon Reflex 1+ Diminished PT-OP-J Posture/Palpation/Skin Start: 01/03/19 16:37 Freq: Status: Active Protocol: Document 01/03/19 16:40 NFW (Rec: 01/03/19 17:45 NFW [id number]) Posture Evaluation Position Standing Shoulder Posture (R) Forward,(R) Elevated Scapula Posture (L) Neutral,(R) Winged Pelvis Posture (L) Iliac Crest Superior Weight Distribution Weight Shifted Left,Decreased Wt.Bear on (R) Hip Posture (L) Neutral,(R) Neutral Knee Posture (R) Genu Valgus,(L) Genu Recurvatum,(R) Genu Recurvatum Foot Arch (L) No Arch,(R) No Arch Palpation Assessment Location One Palpation Location Lumbar Spine Palpation Details No problems with palpation at and around surgical site. PT-OP-K Range of Motion Start: 01/03/19 16:37 Freq: Status: Active Protocol: Document 01/03/19 16:40 NFW (Rec: 01/03/19 17:45 NFW [id number]) Lumbar Spine Range of Motion Lumbar Spine Active Comments Active ROM not tested due to recent lumbar fusion. Hip Goniometric Range of Motion Hip Right Active Hip ROM WFL Yes Testing Position Supine Straight Leg Raise 50 Left Active Hip ROM WFL Yes Testing Position Supine Straight Leg Raise 50 Hip ROM Limitations Hip ROM Limitations Soft Tissue Tightness Comments Patient has functional ROM but decrease flexibility noted in HS/Gastrocs/hip abductors/hip flexors. PT-OP-L Special Tests Start: 01/03/19 16:37 Freq: Status: Active Protocol: Document 01/03/19 16:40 NFW (Rec: 01/03/19 17:45 NFW [id number]) Special Tests Other Special Tests Special Tests One Legged Balancing - right unable, left 5 seconds PT-OP-M Strength Start: 01/03/19 16:37 Freq: Status: Active Protocol: Document 01/03/19 16:40 NFW (Rec: 01/03/19 17:45 NFW [id number]) Hip Strength Hip Manual Muscle Testing Left Flexion (L2) 4- Good- Extension (S1) 4 Good Abduction 4 Good External Rotation 4 Good Right Flexion (L2) 4- Good- Extension (S1) 4 Good Abduction 4 Good External Rotation 4 Good Knee Strength Knee Manual Muscle Testing Left Flexion (S2) 4 Good Extension (L3) 4 Good Right Flexion (S2) 5 Normal Extension (L3) 5 Normal Ankle/Foot Strength Ankle and Foot Manual Muscle Testing Right Dorsiflexion (L4) 4 Good Plantarflexion (S1) 4 Good Left Dorsiflexion (L4) 4 Good Plantarflexion (S1) 4 Good Toe Strength Toe Manual Muscle Testing Right Great Toe Extension 3 Fair Left Great Toe Extension 4 Good PT-OP-Q Treatments Start: 01/03/19 16:37 Freq: Status: Active Protocol: Document 02/01/19 08:14 [facility] (Rec: 02/01/19 08:59 SAK [id number]) Cardio Equipment Recumbent Stepper (Sci-Fit) Duration (Minutes) 6 Resistance 1.0 Seat Position 10 Gym Equipment Shuttle Recovery Bilateral Squats Details with short foot exercise Resistance 50 Shuttle Recovery Platform Stable Reps/Time 10x2 Therapeutic Ball isometric automatic core engagement Exercise Details hooklying, ball on belly Reps/Duration 10x Therapeutic Exercises Supine Exercises alt UE and LE lift Supine Exercise Name with TrA Reps/Minutes 10x Comments bent knee 5 Supine Exercise Name Abdominal brace, march Side bilateral Reps/Minutes 10 x each Comments emphasis on pushing through opposite LE for core engagement and stability 3 Supine Exercise Name Abdominal Brace with LE extension and return to hooklying Side bilateral Comments alternating with push into table through opposite LE Therapeutic Activity Therapeutic Activity deep breathing Name abdominal, lateral chest, posterior Comments for muscle relaxation and facilitation of gentle mobility throughout thoracic spine sit to stand Name focus on neutral spine & glute & core control Reps/Minutes 12x Comments use of yardstick for tactile feedback Manual Therapy Treatment Taping for edema reduction, arch support Body Location left foot Type of Tape kinesiotape Comments 2 fan strips for edema reduction, 2 I strips for arch support Manual Techniques right foot, ankle calf Type STM Comments emphasis on posterior tibialis PT-OP-R Modalities Start: 01/03/19 16:37 Freq: Status: Active Protocol: Document 02/01/19 08:14 SAI (Rec: 02/01/19 14:04 [facility] [id number]) Hot Pack/Cold Pack Treatment Cold Pack Location right foot and ankle Patient Position Hooklying Treatment Duration (minutes) 10 Patient Tolerance Good Comments cryocuff PT-OP-T Assessment and Plan Start: 01/03/19 16:37 Freq: Status: Active Protocol: Document 02/01/19 08:14 [facility] (Rec: 02/01/19 14:04 [facility] [id number]) Physical Therapy Assessment Goals Four Impairment Awareness of proper movement patterns and body mechanics for LB Short Term Goal (STG) Goal achieved 01/19/19 [employer] Goal (LTG) Goal achieved 01/19/19 LTG Duration Goal MET Three Impairment Poor core strength Short Term Goal (STG) Establish abdominal stabilization HEP 02/01/19: continue to progress HEP STG Duration 02/04/19 [employer] Goal (LTG) Advance to level II stabilization activities 02/01/19: good goal progress LTG Duration 03/07/19 Oswestry disability index score Retirement Goal (LTG) decrease score to no greater than 40% 02/01/19: good goal progress LTG Duration 03/07/19 Two Impairment Decrease functional activity level Short Term Goal (STG) Improve standing balance on each extremity to 10 seconds. 02/01/19: not tolerated STG Duration 02/04/19 Retirement Goal (LTG) Increase strength/endurance so that patient can perform light lifting more than 10 pounds, and to vacuum one room at a time. 02/01/19: good goal progress LTG Duration 03/07/19 One Impairment Weakness into LEs [employer] Goal (LTG) MMT to LE grade 5/5 strength 02/01/19: good goal progress LTG Duration 03/07/19 decreased ROM and strength left foot/ankle Impairment tightness and weakness gloria gastroc [employer] Goal (LTG) Improve gloria foot and ankle ROM and strength to WNL, patient to be independnet with HEP. 02/01/19: good goal progress LTG Duration 03/07/19 pain right foot/ankle Impairment bilateral foot and ankle pain limiting activity [employer] Goal (LTG) Improve pain right foot and ankle sufficient to allow her to increase her walking ability from 2-6 blocks for functional community ambulation 02/01/19: decreased tolerance for weight-bearing activity today. LTG Duration 03/07/19 Progress Towards Goals Progress Comments Decreased tolerance for closed chain exercises, foot pain alters gait. Altered treatment today with more supine ex as well as addressing foot pain. Physical Therapy Plan Frequency and Duration Frequency of Treatment 2x/Week Duration of Treatment 8 weeks Plan of Care Start Date 01/03/19 Plan of Care End Date 03/07/19 Next Visit Focus/Plan Next Note Type Treatment Note Next Visit Plan Continue PT per POC
--- NOTE | 2019-02-06 15:55 | PT.OTN ---
Current Diagnoses Disorder of muscle, unspecified (02/06/19) Arthrodesis status (02/06/19) Physical Therapy Treatment Note PT-OP-A Visit Information Start: 01/03/19 16:37 Freq: Status: Active Protocol: Document 02/06/19 08:21 SAK (Rec: 02/06/19 08:49 SAK [id number]) Out-Patient Physical Therapy Visit Information Visit Information Visit Type Treatment Note Visit Start Time 08:15 Visit Stop Time 09:10 Total Visit Minutes 55 Visit Number 10 Number of BOAT CANVAS MAKER AND INSTALLER Visits 0 PT-OP-B Current Condition Start: 01/03/19 16:37 Freq: Status: Active Protocol: Document 01/03/19 16:40 NFW (Rec: 01/03/19 17:45 NFW [id number]) Current Condition History of Current Condition Onset Date 10/10/18 Current Complaints Weak with decrease balance, low functional activity level. History of Current Condition Patient had lumbar fusion . Had secondary edema and blood clots requiring debridment on 10/26/18 and now doing very well. Future Testing and Treatments Planned 01/18/19 CAT scan left foot - to assess possibility of removing screws from talonavicular fusion performed 02/22 Treatment Goals Patient/Caregiver Goals Regain core and LE strength. Would like to be able to return to extracurricular activities of gardening, cleaning her home and increasing her walking time. Weightbearing tolerance limited by pain in ankles. May need screws removed from left ankle and possible may need talonavicular fusion on right ankle. Prior Functional Status Baseline Function- ADL's Modified Independent Baseline Function- Mobility Modified Independent Current Functional Impairments (Reported) Functional Limitations- ADL's None Functional Limitations- Mobility/Gait Walking limited to maximum of one block due to ankles/feet. 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 Patient was placed on minimal activities by surgeon. Functional Limitations- Recreation/ Has not been able to resume Hobbies any gardening activities. PT-OP-C Subjective Start: 01/03/19 16:37 Freq: Status: Active Protocol: Document 02/06/19 08:21 SAK (Rec: 02/06/19 08:49 SAK [id number]) OP-PT Subjective Patient Comments Patient Comments Has had some tweaking in right lumbar region, no known reason, thinks maybe due to too much resistance with clamshells, feels a little like sciatica into top of right foot. PT-OP-D Balance Start: 01/03/19 16:37 Freq: Status: Active Protocol: Document 01/03/19 16:40 NFW (Rec: 01/03/19 17:45 NFW [id number]) OP-PT Balance Assessment Sitting Balance Static Sitting Balance Ability Normal Dynamic Sitting Balance Ability Normal Standing Balance Static Standing Balance Ability Good Dynamic Standing Balance Ability Good Standing Balance Comments Both good for the first 5 minutes after that time pain in feet, not due to LB. Loera Fall Scale Copyright Permission PT-OP-G Mobility & Gait Start: 01/03/19 16:37 Freq: Status: Active Protocol: Document 01/03/19 16:40 NFW (Rec: 01/03/19 17:45 NFW [id number]) OP Mobility Evaluation Functional Movements Lifting and Carrying Lifting/carrying limited to < 5 lbs. Squats Limited by pain in feet/ankles . Running Assessment Unable OP Gait Assessment Gait Gait Assistance Required: Independent Assistive Devices Assistive Device None Gait Deviations General Gait Pattern Antalgic,Decreased Stride Length Factors Limiting Gait Function Factors Limiting Gait Function Decreased Activity Tolerance, Decreased Strength,Pain Comments Gait Comments Gait is antalgic favoring the right foot and ankle. Patient hold RLE in ER in ambulation. PT-OP-H Neuro Start: 01/03/19 16:37 Freq: Status: Active Protocol: Document 01/03/19 16:40 NFW (Rec: 01/03/19 17:45 NFW [id number]) Sensation Evaluation Gross Sensation Gross Sensation Right LE Impaired Sensation Description Numbness,Tingling,Pins & [place] Dermatome Impairments L5,S1,S2 Deep Tendon Reflex & Clonus Assessment Deep Tendon Reflex Bilateral Achilles Deep Tendon Reflex 1+ Diminished Bilateral Patellar Deep Tendon Reflex 1+ Diminished PT-OP-J Posture/Palpation/Skin Start: 01/03/19 16:37 Freq: Status: Active Protocol: Document 01/03/19 16:40 NFW (Rec: 01/03/19 17:45 NFW [id number]) Posture Evaluation Position Standing Shoulder Posture (R) Forward,(R) Elevated Scapula Posture (L) Neutral,(R) Winged Pelvis Posture (L) Iliac Crest Superior Weight Distribution Weight Shifted Left,Decreased Wt.Bear on (R) Hip Posture (L) Neutral,(R) Neutral Knee Posture (R) Genu Valgus,(L) Genu Recurvatum,(R) Genu Recurvatum Foot Arch (L) No Arch,(R) No Arch Palpation Assessment Location One Palpation Location Lumbar Spine Palpation Details No problems with palpation at and around surgical site. PT-OP-K Range of Motion Start: 01/03/19 16:37 Freq: Status: Active Protocol: Document 01/03/19 16:40 NFW (Rec: 01/03/19 17:45 NFW [id number]) Lumbar Spine Range of Motion Lumbar Spine Active Comments Active ROM not tested due to recent lumbar fusion. Hip Goniometric Range of Motion Hip Right Active Hip ROM WFL Yes Testing Position Supine Straight Leg Raise 50 Left Active Hip ROM WFL Yes Testing Position Supine Straight Leg Raise 50 Hip ROM Limitations Hip ROM Limitations Soft Tissue Tightness Comments Patient has functional ROM but decrease flexibility noted in HS/Gastrocs/hip abductors/hip flexors. PT-OP-L Special Tests Start: 01/03/19 16:37 Freq: Status: Active Protocol: Document 01/03/19 16:40 NFW (Rec: 01/03/19 17:45 NFW [id number]) Special Tests Other Special Tests Special Tests One Legged Balancing - right unable, left 5 seconds PT-OP-M Strength Start: 01/03/19 16:37 Freq: Status: Active Protocol: Document 01/03/19 16:40 NFW (Rec: 01/03/19 17:45 NFW [id number]) Hip Strength Hip Manual Muscle Testing Left Flexion (L2) 4- Good- Extension (S1) 4 Good Abduction 4 Good External Rotation 4 Good Right Flexion (L2) 4- Good- Extension (S1) 4 Good Abduction 4 Good External Rotation 4 Good Knee Strength Knee Manual Muscle Testing Left Flexion (S2) 4 Good Extension (L3) 4 Good Right Flexion (S2) 5 Normal Extension (L3) 5 Normal Ankle/Foot Strength Ankle and Foot Manual Muscle Testing Right Dorsiflexion (L4) 4 Good Plantarflexion (S1) 4 Good Left Dorsiflexion (L4) 4 Good Plantarflexion (S1) 4 Good Toe Strength Toe Manual Muscle Testing Right Great Toe Extension 3 Fair Left Great Toe Extension 4 Good PT-OP-Q Treatments Start: 01/03/19 16:37 Freq: Status: Active Protocol: Document 02/06/19 08:21 [facility] (Rec: 02/06/19 08:49 [facility] [id number]) Cardio Equipment Recumbent Stepper (Sci-Fit) Duration (Minutes) 8 Resistance 1.5 Seat Position 11 Gym Equipment Shuttle Recovery Bilateral Squats Details with short foot exercise Resistance 50 Shuttle Recovery Platform Stable Reps/Time 10x2 Therapeutic Exercises Supine Exercises automatic core engagement Supine Exercise Name isometric push down with arms Comments PT resistance:sagittal and diagnonal 5 Supine Exercise Name Abdominal brace, march Side bilateral Reps/Minutes 10 x each Comments emphasis on pushing through opposite LE for core engagement and stability LTR Supine Exercise Name comfortable range Side bilateral Reps/Minutes 10 Comments focus on core hip ab/ad Equipment Used L2 TB Reps/Minutes 10x2 Sidelying Exercises hip ab Equipment Used wall Reps/Minutes 12x clamshell Equipment Used wall Reps/Minutes 12x Manual Therapy Treatment Soft Tissue Mobilization right lumbar paraspinals Mobilization Type Myofascial Release,Rolling Body Position Sidelying Self-Care/Home Management Treatment Education Patient Education Body Mechanics,Posture Other Education self assessment on habitual posturing and movement PT-OP-R Modalities Start: 01/03/19 16:37 Freq: Status: Active Protocol: Document 02/06/19 08:21 [facility] (Rec: 02/06/19 15:55 [facility] [id number]) Hot Pack/Cold Pack Treatment Cold Pack Location thoracolumbar spine Patient Position Hooklying Treatment Duration (minutes) 10 Patient Tolerance Good PT-OP-T Assessment and Plan Start: 01/03/19 16:37 Freq: Status: Active Protocol: Document 02/06/19 08:21 [facility] (Rec: 02/06/19 15:55 [facility] [id number]) Physical Therapy Assessment Goals Four Impairment Awareness of proper movement patterns and body mechanics for LB Short Term Goal (STG) Goal achieved 01/19/19 [place] Goal (LTG) Goal achieved 01/19/19 LTG Duration Goal MET Three Impairment Poor core strength Short Term Goal (STG) Establish abdominal stabilization HEP 02/01/19: continue to progress HEP STG Duration 02/04/19 [facility] Goal (LTG) Advance to level II stabilization activities 02/01/19: good goal progress LTG Duration 03/07/19 Oswestry disability index score [place] Goal (LTG) decrease score to no greater than 40% 02/01/19: good goal progress LTG Duration 03/07/19 Two Impairment Decrease functional activity level Short Term Goal (STG) Improve standing balance on each extremity to 10 seconds. 02/01/19: not tolerated STG Duration 02/04/19 [place] Goal (LTG) Increase strength/endurance so that patient can perform light lifting more than 10 pounds, and to vacuum one room at a time. 02/01/19: good goal progress LTG Duration 03/07/19 One Impairment Weakness into LEs [facility] Goal (LTG) MMT to LE grade 5/5 strength 02/01/19: good goal progress LTG Duration 03/07/19 decreased ROM and strength left foot/ankle Impairment tightness and weakness gloria gastroc [place] Goal (LTG) Improve gloria foot and ankle ROM and strength to WNL, patient to be independnet with HEP. 02/01/19: good goal progress LTG Duration 03/07/19 pain right foot/ankle Impairment bilateral foot and ankle pain limiting activity [facility] Goal (LTG) Improve pain right foot and ankle sufficient to allow her to increase her walking ability from 2-6 blocks for functional community ambulation 02/01/19: decreased tolerance for weight-bearing activity today. LTG Duration 03/07/19 Progress Towards Goals Progress Towards Goals Progressing Toward Goals Progress Comments Decreased foot pain with treatment last session, worst c/o today is right lumbar paraspinals. Emphasis on deep core activation, use of wall for tactile feedback with sidelying exercises. Supine trunk rotation with small motion and supine hip abd cued to decrease intensity. Physical Therapy Plan Frequency and Duration Frequency of Treatment 2x/Week Duration of Treatment 8 weeks Plan of Care Start Date 01/03/19 Plan of Care End Date 03/07/19 Next Visit Focus/Plan Next Note Type Treatment Note Next Visit Plan Evaluate response to last session, patient self- assessment. Continue emphasis on core stabilization with all movement and exercises. Progress automatic core engagement exercises.
--- NOTE | 2019-02-08 16:24 | PT.OTN ---
Current Diagnoses Disorder of muscle, unspecified (02/08/19) Arthrodesis status (02/08/19) Physical Therapy Treatment Note PT-OP-A Visit Information Start: 01/03/19 16:37 Freq: Status: Active Protocol: Document 02/08/19 14:33 SAK (Rec: 02/08/19 15:22 SAK [id number]) Out-Patient Physical Therapy Visit Information Visit Information Visit Type Treatment Note Visit Start Time 14:30 Visit Stop Time 15:25 Total Visit Minutes 55 Visit Number 12 Number of TELECOMMUNICATIONS SWITCH TECHNICIAN Visits 0 PT-OP-B Current Condition Start: 01/03/19 16:37 Freq: Status: Active Protocol: Document 01/03/19 16:40 NFW (Rec: 01/03/19 17:45 NFW [id number]) Current Condition History of Current Condition Onset Date 10/10/18 Current Complaints Weak with decrease balance, low functional activity level. History of Current Condition Patient had lumbar fusion . Had secondary edema and blood clots requiring debridment on 10/26/18 and now doing very well. Future Testing and Treatments Planned 01/18/19 CAT scan left foot - to assess possibility of removing screws from talonavicular fusion performed 02/22 Treatment Goals Patient/Caregiver Goals Regain core and LE strength. Would like to be able to return to extracurricular activities of gardening, cleaning her home and increasing her walking time. Weightbearing tolerance limited by pain in ankles. May need screws removed from left ankle and possible may need talonavicular fusion on right ankle. Prior Functional Status Baseline Function- ADL's Modified Independent Baseline Function- Mobility Modified Independent Current Functional Impairments (Reported) Functional Limitations- ADL's None Functional Limitations- Mobility/Gait Walking limited to maximum of one block due to ankles/feet. 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 Patient was placed on minimal activities by surgeon. Functional Limitations- Recreation/ Has not been able to resume Hobbies any gardening activities. PT-OP-C Subjective Start: 01/03/19 16:37 Freq: Status: Active Protocol: Document 02/08/19 14:33 SAK (Rec: 02/08/19 15:22 SAK [id number]) OP-PT Subjective Patient Comments Patient Comments Tape to foot very helpful in decreasing pain.Took muscle relaxant for back last night but better today. PT-OP-D Balance Start: 01/03/19 16:37 Freq: Status: Active Protocol: Document 01/03/19 16:40 NFW (Rec: 01/03/19 17:45 NFW [id number]) OP-PT Balance Assessment Sitting Balance Static Sitting Balance Ability Normal Dynamic Sitting Balance Ability Normal Standing Balance Static Standing Balance Ability Good Dynamic Standing Balance Ability Good Standing Balance Comments Both good for the first 5 minutes after that time pain in feet, not due to LB. Loera Fall Scale Copyright Permission PT-OP-G Mobility & Gait Start: 01/03/19 16:37 Freq: Status: Active Protocol: Document 01/03/19 16:40 NFW (Rec: 01/03/19 17:45 NFW [id number]) OP Mobility Evaluation Functional Movements Lifting and Carrying Lifting/carrying limited to < 5 lbs. Squats Limited by pain in feet/ankles . Running Assessment Unable OP Gait Assessment Gait Gait Assistance Required: Independent Assistive Devices Assistive Device None Gait Deviations General Gait Pattern Antalgic,Decreased Stride Length Factors Limiting Gait Function Factors Limiting Gait Function Decreased Activity Tolerance, Decreased Strength,Pain Comments Gait Comments Gait is antalgic favoring the right foot and ankle. Patient hold RLE in ER in ambulation. PT-OP-H Neuro Start: 01/03/19 16:37 Freq: Status: Active Protocol: Document 01/03/19 16:40 NFW (Rec: 01/03/19 17:45 NFW [id number]) Sensation Evaluation Gross Sensation Gross Sensation Right LE Impaired Sensation Description Numbness,Tingling,Pins & [place] Dermatome Impairments L5,S1,S2 Deep Tendon Reflex & Clonus Assessment Deep Tendon Reflex Bilateral Achilles Deep Tendon Reflex 1+ Diminished Bilateral Patellar Deep Tendon Reflex 1+ Diminished PT-OP-J Posture/Palpation/Skin Start: 01/03/19 16:37 Freq: Status: Active Protocol: Document 01/03/19 16:40 NFW (Rec: 01/03/19 17:45 NFW [id number]) Posture Evaluation Position Standing Shoulder Posture (R) Forward,(R) Elevated Scapula Posture (L) Neutral,(R) Winged Pelvis Posture (L) Iliac Crest Superior Weight Distribution Weight Shifted Left,Decreased Wt.Bear on (R) Hip Posture (L) Neutral,(R) Neutral Knee Posture (R) Genu Valgus,(L) Genu Recurvatum,(R) Genu Recurvatum Foot Arch (L) No Arch,(R) No Arch Palpation Assessment Location One Palpation Location Lumbar Spine Palpation Details No problems with palpation at and around surgical site. PT-OP-K Range of Motion Start: 01/03/19 16:37 Freq: Status: Active Protocol: Document 01/03/19 16:40 NFW (Rec: 01/03/19 17:45 NFW [id number]) Lumbar Spine Range of Motion Lumbar Spine Active Comments Active ROM not tested due to recent lumbar fusion. Hip Goniometric Range of Motion Hip Right Active Hip ROM WFL Yes Testing Position Supine Straight Leg Raise 50 Left Active Hip ROM WFL Yes Testing Position Supine Straight Leg Raise 50 Hip ROM Limitations Hip ROM Limitations Soft Tissue Tightness Comments Patient has functional ROM but decrease flexibility noted in HS/Gastrocs/hip abductors/hip flexors. PT-OP-L Special Tests Start: 01/03/19 16:37 Freq: Status: Active Protocol: Document 01/03/19 16:40 NFW (Rec: 01/03/19 17:45 NFW [id number]) Special Tests Other Special Tests Special Tests One Legged Balancing - right unable, left 5 seconds PT-OP-M Strength Start: 01/03/19 16:37 Freq: Status: Active Protocol: Document 01/03/19 16:40 NFW (Rec: 01/03/19 17:45 NFW [id number]) Hip Strength Hip Manual Muscle Testing Left Flexion (L2) 4- Good- Extension (S1) 4 Good Abduction 4 Good External Rotation 4 Good Right Flexion (L2) 4- Good- Extension (S1) 4 Good Abduction 4 Good External Rotation 4 Good Knee Strength Knee Manual Muscle Testing Left Flexion (S2) 4 Good Extension (L3) 4 Good Right Flexion (S2) 5 Normal Extension (L3) 5 Normal Ankle/Foot Strength Ankle and Foot Manual Muscle Testing Right Dorsiflexion (L4) 4 Good Plantarflexion (S1) 4 Good Left Dorsiflexion (L4) 4 Good Plantarflexion (S1) 4 Good Toe Strength Toe Manual Muscle Testing Right Great Toe Extension 3 Fair Left Great Toe Extension 4 Good PT-OP-Q Treatments Start: 01/03/19 16:37 Freq: Status: Active Protocol: Document 02/08/19 14:33 [facility] (Rec: 02/08/19 15:22 SAK [id number]) Cardio Equipment Recumbent Stepper (Sci-Fit) Duration (Minutes) 10 Resistance 1.5 Seat Position 11 Gym Equipment Shuttle Recovery Bilateral Squats Details with short foot exercise Resistance 50 Shuttle Recovery Platform Stable Reps/Time 10x2 Therapeutic Exercises Supine Exercises SLR Reps/Minutes 10x ea automatic core engagement Supine Exercise Name isometric push down with arms Comments PT resistance:sagittal and diagnonal 5 Supine Exercise Name Abdominal brace, march Side bilateral Reps/Minutes 10 x each Comments emphasis on pushing through opposite LE for core engagement and stability 3 Supine Exercise Name Abdominal Brace with LE extension and return to hooklying Reps/Minutes 10x ea Sidelying Exercises hip ab Equipment Used wall Reps/Minutes 12x clamshell Equipment Used wall Reps/Minutes 12x Sitting Exercises hip hinge with abdominal activation Sitting Exercise Name sit to stand Equipment Used yardstick Reps/Minutes 10x Comments verbal and manual cues Manual Therapy Treatment Taping 1 Body Location gloria arches Treatment Focus support and pain reduction Type of Tape Kinesio Tape Comments 2 I strips each foot Self-Care/Home Management Treatment Education Patient Education Home Exercise Program Other Education updated written handout PT-OP-R Modalities Start: 01/03/19 16:37 Freq: Status: Active Protocol: Document 02/06/19 08:21 [facility] (Rec: 02/06/19 15:55 [facility] [id number]) Hot Pack/Cold Pack Treatment Cold Pack Location thoracolumbar spine Patient Position Hooklying Treatment Duration (minutes) 10 Patient Tolerance Good PT-OP-T Assessment and Plan Start: 01/03/19 16:37 Freq: Status: Active Protocol: Document 02/08/19 14:33 [facility] (Rec: 02/08/19 15:22 [facility] [id number]) Physical Therapy Assessment Goals Four Impairment Awareness of proper movement patterns and body mechanics for LB Short Term Goal (STG) Goal achieved 01/19/19 Call Centre Supervisor Goal (LTG) Goal achieved 01/19/19 LTG Duration Goal MET Three Impairment Poor core strength Short Term Goal (STG) Establish abdominal stabilization HEP 02/01/19: continue to progress HEP STG Duration 02/04/19 [facility] Goal (LTG) Advance to level II stabilization activities 02/01/19: good goal progress LTG Duration 03/07/19 Oswestry disability index score [facility] Goal (LTG) decrease score to no greater than 40% 02/01/19: good goal progress LTG Duration 03/07/19 Two Impairment Decrease functional activity level Short Term Goal (STG) Improve standing balance on each extremity to 10 seconds. 02/01/19: not tolerated STG Duration 02/04/19 [facility] Goal (LTG) Increase strength/endurance so that patient can perform light lifting more than 10 pounds, and to vacuum one room at a time. 02/01/19: good goal progress LTG Duration 03/07/19 One Impairment Weakness into LEs Call Centre Supervisor Goal (LTG) MMT to LE grade 5/5 strength 02/01/19: good goal progress LTG Duration 03/07/19 decreased ROM and strength left foot/ankle Impairment tightness and weakness gloria gastroc [facility] Goal (LTG) Improve gloria foot and ankle ROM and strength to WNL, patient to be independnet with HEP. 02/01/19: good goal progress LTG Duration 03/07/19 pain right foot/ankle Impairment bilateral foot and ankle pain limiting activity Call Centre Supervisor Goal (LTG) Improve pain right foot and ankle sufficient to allow her to increase her walking ability from 2-6 blocks for functional community ambulation 02/01/19: decreased tolerance for weight-bearing activity today. LTG Duration 03/07/19 Progress Towards Goals Progress Towards Goals Progressing Toward Goals Progress Comments Improving core activation noted with all activities. 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 Physical Therapy Plan Frequency and Duration Frequency of Treatment 2x/Week Duration of Treatment 8 weeks Plan of Care Start Date 01/03/19 Plan of Care End Date 03/07/19 Next Visit Focus/Plan Next Note Type Treatment Note Next Visit Plan Progression of core stabilization and strengthening, flexibility. Closed chain, funciona activities as tolerated, but monitoring for exacerbation of foot pain.
--- NOTE | 2019-02-14 08:27 | PT-OP ANOTE ---
patient cancelled appointment
--- NOTE | 2019-02-16 17:17 | PT.OTN ---
Current Diagnoses Disorder of muscle, unspecified (02/16/19) Arthrodesis status (02/16/19) Physical Therapy Treatment Note PT-OP-A Visit Information Start: 01/03/19 16:37 Freq: Status: Active Protocol: Document 02/16/19 09:05 SAK (Rec: 02/16/19 17:17 SAK [id number]) Out-Patient Physical Therapy Visit Information Visit Information Visit Type Treatment Note Visit Start Time 09:00 Visit Stop Time 09:58 Total Visit Minutes 58 Visit Number 13 Number of RN GASTROENTEROLOGY Visits 0 PT-OP-B Current Condition Start: 01/03/19 16:37 Freq: Status: Active Protocol: Document 01/03/19 16:40 NFW (Rec: 01/03/19 17:45 NFW [id number]) Current Condition History of Current Condition Onset Date 10/10/18 Current Complaints Weak with decrease balance, low functional activity level. History of Current Condition Patient had lumbar fusion . Had secondary edema and blood clots requiring debridment on 10/26/18 and now doing very well. Future Testing and Treatments Planned 01/18/19 CAT scan left foot - to assess possibility of removing screws from talonavicular fusion performed 02/22 Treatment Goals Patient/Caregiver Goals Regain core and LE strength. Would like to be able to return to extracurricular activities of gardening, cleaning her home and increasing her walking time. Weightbearing tolerance limited by pain in ankles. May need screws removed from left ankle and possible may need talonavicular fusion on right ankle. Prior Functional Status Baseline Function- ADL's Modified Independent Baseline Function- Mobility Modified Independent Current Functional Impairments (Reported) Functional Limitations- ADL's None Functional Limitations- Mobility/Gait Walking limited to maximum of one block due to ankles/feet. 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 Patient was placed on minimal activities by surgeon. Functional Limitations- Recreation/ Has not been able to resume Hobbies any gardening activities. PT-OP-C Subjective Start: 01/03/19 16:37 Freq: Status: Active Protocol: Document 02/16/19 09:05 SAK (Rec: 02/16/19 09:46 SAK [id number]) OP-PT Subjective Patient Comments Patient Comments Reports cancelled last session due to horrible pain and LBP for unknown reason, hadn't done anything different. Better after 1 day in bed, sore today after being at a concert; 1 episode severe pain LB radiating to her head, lasted for 1 min. Also having right sided gring pain ( history 6-7 yrs occasionally this pain). Requests no leg press machine. Today bilateral ankle pain. Had right foot casted for orthotic . PT-OP-D Balance Start: 01/03/19 16:37 Freq: Status: Active Protocol: Document 01/03/19 16:40 NFW (Rec: 01/03/19 17:45 NFW [id number]) OP-PT Balance Assessment Sitting Balance Static Sitting Balance Ability Normal Dynamic Sitting Balance Ability Normal Standing Balance Static Standing Balance Ability Good Dynamic Standing Balance Ability Good Standing Balance Comments Both good for the first 5 minutes after that time pain in feet, not due to LB. Loera Fall Scale Copyright Permission PT-OP-G Mobility & Gait Start: 01/03/19 16:37 Freq: Status: Active Protocol: Document 01/03/19 16:40 NFW (Rec: 01/03/19 17:45 NFW [id number]) OP Mobility Evaluation Functional Movements Lifting and Carrying Lifting/carrying limited to < 5 lbs. Squats Limited by pain in feet/ankles . Running Assessment Unable OP Gait Assessment Gait Gait Assistance Required: Independent Assistive Devices Assistive Device None Gait Deviations General Gait Pattern Antalgic,Decreased Stride Length Factors Limiting Gait Function Factors Limiting Gait Function Decreased Activity Tolerance, Decreased Strength,Pain Comments Gait Comments Gait is antalgic favoring the right foot and ankle. Patient hold RLE in ER in ambulation. PT-OP-H Neuro Start: 01/03/19 16:37 Freq: Status: Active Protocol: Document 01/03/19 16:40 NFW (Rec: 01/03/19 17:45 NFW [id number]) Sensation Evaluation Gross Sensation Gross Sensation Right LE Impaired Sensation Description Numbness,Tingling,Pins & [place] Dermatome Impairments L5,S1,S2 Deep Tendon Reflex & Clonus Assessment Deep Tendon Reflex Bilateral Achilles Deep Tendon Reflex 1+ Diminished Bilateral Patellar Deep Tendon Reflex 1+ Diminished PT-OP-J Posture/Palpation/Skin Start: 01/03/19 16:37 Freq: Status: Active Protocol: Document 01/03/19 16:40 NFW (Rec: 01/03/19 17:45 NFW [id number]) Posture Evaluation Position Standing Shoulder Posture (R) Forward,(R) Elevated Scapula Posture (L) Neutral,(R) Winged Pelvis Posture (L) Iliac Crest Superior Weight Distribution Weight Shifted Left,Decreased Wt.Bear on (R) Hip Posture (L) Neutral,(R) Neutral Knee Posture (R) Genu Valgus,(L) Genu Recurvatum,(R) Genu Recurvatum Foot Arch (L) No Arch,(R) No Arch Palpation Assessment Location One Palpation Location Lumbar Spine Palpation Details No problems with palpation at and around surgical site. PT-OP-K Range of Motion Start: 01/03/19 16:37 Freq: Status: Active Protocol: Document 01/03/19 16:40 NFW (Rec: 01/03/19 17:45 NFW [id number]) Lumbar Spine Range of Motion Lumbar Spine Active Comments Active ROM not tested due to recent lumbar fusion. Hip Goniometric Range of Motion Hip Right Active Hip ROM WFL Yes Testing Position Supine Straight Leg Raise 50 Left Active Hip ROM WFL Yes Testing Position Supine Straight Leg Raise 50 Hip ROM Limitations Hip ROM Limitations Soft Tissue Tightness Comments Patient has functional ROM but decrease flexibility noted in HS/Gastrocs/hip abductors/hip flexors. PT-OP-L Special Tests Start: 01/03/19 16:37 Freq: Status: Active Protocol: Document 01/03/19 16:40 NFW (Rec: 01/03/19 17:45 NFW [id number]) Special Tests Other Special Tests Special Tests One Legged Balancing - right unable, left 5 seconds PT-OP-M Strength Start: 01/03/19 16:37 Freq: Status: Active Protocol: Document 01/03/19 16:40 NFW (Rec: 01/03/19 17:45 NFW [id number]) Hip Strength Hip Manual Muscle Testing Left Flexion (L2) 4- Good- Extension (S1) 4 Good Abduction 4 Good External Rotation 4 Good Right Flexion (L2) 4- Good- Extension (S1) 4 Good Abduction 4 Good External Rotation 4 Good Knee Strength Knee Manual Muscle Testing Left Flexion (S2) 4 Good Extension (L3) 4 Good Right Flexion (S2) 5 Normal Extension (L3) 5 Normal Ankle/Foot Strength Ankle and Foot Manual Muscle Testing Right Dorsiflexion (L4) 4 Good Plantarflexion (S1) 4 Good Left Dorsiflexion (L4) 4 Good Plantarflexion (S1) 4 Good Toe Strength Toe Manual Muscle Testing Right Great Toe Extension 3 Fair Left Great Toe Extension 4 Good PT-OP-Q Treatments Start: 01/03/19 16:37 Freq: Status: Active Protocol: Document 02/16/19 09:05 [facility] (Rec: 02/16/19 09:46 [facility] [id number]) Cardio Equipment Recumbent Stepper (Sci-Fit) Duration (Minutes) 10 Resistance 1.5 Seat Position 11 Therapeutic Exercises Supine Exercises SAQ Resistance 1# ankle weights Reps/Minutes 10x2 automatic core engagement Supine Exercise Name isometric push down with arms Comments PT resistance:sagittal and diagnonal 5 Supine Exercise Name Abdominal brace, march Side bilateral Reps/Minutes 10 x each Comments emphasis on pushing through opposite LE for core engagement and stability Sidelying Exercises hip ab Equipment Used wall Reps/Minutes 12x clamshell Equipment Used wall Reps/Minutes 12x Sitting Exercises hip hinge with abdominal activation Sitting Exercise Name sit to stand Equipment Used yardstick Reps/Minutes 10x Comments verbal and manual cues Manual Therapy Treatment Taping 1 Body Location gloria arches Treatment Focus support and pain reduction Type of Tape Kinesio Tape Comments 2 I strips each foot PT-OP-R Modalities Start: 01/03/19 16:37 Freq: Status: Active Protocol: Document 02/16/19 09:05 [facility] (Rec: 02/16/19 17:17 [facility] [id number]) Hot Pack/Cold Pack Treatment Hot Pack Location lumbar spine, right groin Patient Position Hooklying Treatment Duration (minutes) 15 Patient Tolerance Good PT-OP-T Assessment and Plan Start: 01/03/19 16:37 Freq: Status: Active Protocol: Document 02/16/19 09:05 [facility] (Rec: 02/16/19 09:46 [facility] [id number]) Physical Therapy Assessment Goals Four Impairment Awareness of proper movement patterns and body mechanics for LB Short Term Goal (STG) Goal achieved 01/19/19 Workers Compensation Defense Attorney Goal (LTG) Goal achieved 01/19/19 LTG Duration Goal MET Three Impairment Poor core strength Short Term Goal (STG) Establish abdominal stabilization HEP 02/01/19: continue to progress HEP STG Duration 02/04/19 Workers Compensation Defense Attorney Goal (LTG) Advance to level II stabilization activities 02/01/19: good goal progress LTG Duration 03/07/19 Oswestry disability index score Correction Goal (LTG) decrease score to no greater than 40% 02/01/19: good goal progress LTG Duration 03/07/19 Two Impairment Decrease functional activity level Short Term Goal (STG) Improve standing balance on each extremity to 10 seconds. 02/01/19: not tolerated STG Duration 02/04/19 Correction Goal (LTG) Increase strength/endurance so that patient can perform light lifting more than 10 pounds, and to vacuum one room at a time. 02/01/19: good goal progress LTG Duration 03/07/19 One Impairment Weakness into LEs Correction Goal (LTG) MMT to LE grade 5/5 strength 02/01/19: good goal progress LTG Duration 03/07/19 decreased ROM and strength left foot/ankle Impairment tightness and weakness gloria gastroc Correction Goal (LTG) Improve gloria foot and ankle ROM and strength to WNL, patient to be independnet with HEP. 02/01/19: good goal progress LTG Duration 03/07/19 pain right foot/ankle Impairment bilateral foot and ankle pain limiting activity Workers Compensation Defense Attorney Goal (LTG) Improve pain right foot and ankle sufficient to allow her to increase her walking ability from 2-6 blocks for functional community ambulation 02/01/19: decreased tolerance for weight-bearing activity today. LTG Duration 03/07/19 Progress Towards Goals Progress Comments Decreased closed chain standing exercises today due to increase in pain in feet/ ankles as well as low back. Cues for proper form and muscle activation with ther ex . Physical Therapy Plan Frequency and Duration Frequency of Treatment 2x/Week Duration of Treatment 8 weeks Plan of Care Start Date 01/03/19 Plan of Care End Date 03/07/19 Next Visit Focus/Plan Next Note Type Treatment Note Next Visit Plan Progression of core stabilization and strengthening, flexibility. Closed chain, functional activities as tolerated, but monitoring for exacerbation of foot pain.
--- NOTE | 2019-02-21 16:14 | PT.OTN ---
Current Diagnoses Disorder of muscle, unspecified (02/21/19) Arthrodesis status (02/21/19) Physical Therapy Treatment Note PT-OP-A Visit Information Start: 01/03/19 16:37 Freq: Status: Active Protocol: Document 02/21/19 09:05 SAK (Rec: 02/21/19 09:47 SAK [id number]) Out-Patient Physical Therapy Visit Information Visit Information Visit Type Treatment Note Visit Start Time 09:00 Visit Stop Time 09:58 Total Visit Minutes 58 Visit Number 13 Number of AIRWAYS CONTROL SPECIALIST Visits 0 PT-OP-B Current Condition Start: 01/03/19 16:37 Freq: Status: Active Protocol: Document 01/03/19 16:40 NFW (Rec: 01/03/19 17:45 NFW [id number]) Current Condition History of Current Condition Onset Date 10/10/18 Current Complaints Weak with decrease balance, low functional activity level. History of Current Condition Patient had lumbar fusion . Had secondary edema and blood clots requiring debridment on 10/26/18 and now doing very well. Future Testing and Treatments Planned 01/18/19 CAT scan left foot - to assess possibility of removing screws from talonavicular fusion performed 02/22 Treatment Goals Patient/Caregiver Goals Regain core and LE strength. Would like to be able to return to extracurricular activities of gardening, cleaning her home and increasing her walking time. Weightbearing tolerance limited by pain in ankles. May need screws removed from left ankle and possible may need talonavicular fusion on right ankle. Prior Functional Status Baseline Function- ADL's Modified Independent Baseline Function- Mobility Modified Independent Current Functional Impairments (Reported) Functional Limitations- ADL's None Functional Limitations- Mobility/Gait Walking limited to maximum of one block due to ankles/feet. 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 Patient was placed on minimal activities by surgeon. Functional Limitations- Recreation/ Has not been able to resume Hobbies any gardening activities. PT-OP-C Subjective Start: 01/03/19 16:37 Freq: Status: Active Protocol: Document 02/21/19 09:05 SAK (Rec: 02/21/19 09:47 SAK [id number]) OP-PT Subjective Patient Comments Patient Comments Reports doing ok after last session but last night had horrible pain gloria groin, right hip and LBP. Has been trying to lay down during the day to rest spine as recommended. Thinks increase in pain may be related to use of noodle for hamstring stretching. Also c/o pain lateral right foot. PT-OP-D Balance Start: 01/03/19 16:37 Freq: Status: Active Protocol: Document 01/03/19 16:40 NFW (Rec: 01/03/19 17:45 NFW [id number]) OP-PT Balance Assessment Sitting Balance Static Sitting Balance Ability Normal Dynamic Sitting Balance Ability Normal Standing Balance Static Standing Balance Ability Good Dynamic Standing Balance Ability Good Standing Balance Comments Both good for the first 5 minutes after that time pain in feet, not due to LB. Loera Fall Scale Copyright Permission PT-OP-G Mobility & Gait Start: 01/03/19 16:37 Freq: Status: Active Protocol: Document 01/03/19 16:40 NFW (Rec: 01/03/19 17:45 NFW [id number]) OP Mobility Evaluation Functional Movements Lifting and Carrying Lifting/carrying limited to < 5 lbs. Squats Limited by pain in feet/ankles . Running Assessment Unable OP Gait Assessment Gait Gait Assistance Required: Independent Assistive Devices Assistive Device None Gait Deviations General Gait Pattern Antalgic,Decreased Stride Length Factors Limiting Gait Function Factors Limiting Gait Function Decreased Activity Tolerance, Decreased Strength,Pain Comments Gait Comments Gait is antalgic favoring the right foot and ankle. Patient hold RLE in ER in ambulation. PT-OP-H Neuro Start: 01/03/19 16:37 Freq: Status: Active Protocol: Document 01/03/19 16:40 NFW (Rec: 01/03/19 17:45 NFW [id number]) Sensation Evaluation Gross Sensation Gross Sensation Right LE Impaired Sensation Description Numbness,Tingling,Pins & [place] Dermatome Impairments L5,S1,S2 Deep Tendon Reflex & Clonus Assessment Deep Tendon Reflex Bilateral Achilles Deep Tendon Reflex 1+ Diminished Bilateral Patellar Deep Tendon Reflex 1+ Diminished PT-OP-J Posture/Palpation/Skin Start: 01/03/19 16:37 Freq: Status: Active Protocol: Document 01/03/19 16:40 NFW (Rec: 01/03/19 17:45 NFW [id number]) Posture Evaluation Position Standing Shoulder Posture (R) Forward,(R) Elevated Scapula Posture (L) Neutral,(R) Winged Pelvis Posture (L) Iliac Crest Superior Weight Distribution Weight Shifted Left,Decreased Wt.Bear on (R) Hip Posture (L) Neutral,(R) Neutral Knee Posture (R) Genu Valgus,(L) Genu Recurvatum,(R) Genu Recurvatum Foot Arch (L) No Arch,(R) No Arch Palpation Assessment Location One Palpation Location Lumbar Spine Palpation Details No problems with palpation at and around surgical site. PT-OP-K Range of Motion Start: 01/03/19 16:37 Freq: Status: Active Protocol: Document 01/03/19 16:40 NFW (Rec: 01/03/19 17:45 NFW [id number]) Lumbar Spine Range of Motion Lumbar Spine Active Comments Active ROM not tested due to recent lumbar fusion. Hip Goniometric Range of Motion Hip Right Active Hip ROM WFL Yes Testing Position Supine Straight Leg Raise 50 Left Active Hip ROM WFL Yes Testing Position Supine Straight Leg Raise 50 Hip ROM Limitations Hip ROM Limitations Soft Tissue Tightness Comments Patient has functional ROM but decrease flexibility noted in HS/Gastrocs/hip abductors/hip flexors. PT-OP-L Special Tests Start: 01/03/19 16:37 Freq: Status: Active Protocol: Document 01/03/19 16:40 NFW (Rec: 01/03/19 17:45 NFW [id number]) Special Tests Other Special Tests Special Tests One Legged Balancing - right unable, left 5 seconds PT-OP-M Strength Start: 01/03/19 16:37 Freq: Status: Active Protocol: Document 01/03/19 16:40 NFW (Rec: 01/03/19 17:45 NFW [id number]) Hip Strength Hip Manual Muscle Testing Left Flexion (L2) 4- Good- Extension (S1) 4 Good Abduction 4 Good External Rotation 4 Good Right Flexion (L2) 4- Good- Extension (S1) 4 Good Abduction 4 Good External Rotation 4 Good Knee Strength Knee Manual Muscle Testing Left Flexion (S2) 4 Good Extension (L3) 4 Good Right Flexion (S2) 5 Normal Extension (L3) 5 Normal Ankle/Foot Strength Ankle and Foot Manual Muscle Testing Right Dorsiflexion (L4) 4 Good Plantarflexion (S1) 4 Good Left Dorsiflexion (L4) 4 Good Plantarflexion (S1) 4 Good Toe Strength Toe Manual Muscle Testing Right Great Toe Extension 3 Fair Left Great Toe Extension 4 Good PT-OP-Q Treatments Start: 01/03/19 16:37 Freq: Status: Active Protocol: Document 02/21/19 09:05 [facility] (Rec: 02/21/19 09:47 [facility] [id number]) Cardio Equipment Recumbent Stepper (Sci-Fit) Duration (Minutes) 10 Resistance 1.5 Seat Position 11 Gym Equipment Shuttle Recovery Bilateral Squats Details with short foot exercise, core activation Resistance 50 Shuttle Recovery Platform Stable Reps/Time 10x2 Therapeutic Exercises Sitting Exercises row, shld ext Resistance L1 TB Reps/Minutes 10x hip hinge with abdominal activation Sitting Exercise Name sit to stand Equipment Used yardstick Reps/Minutes 3x Comments verbal and manual cues march Reps/Minutes 5x Comments with emphasis on TrA activation Manual Therapy Treatment Soft Tissue Mobilization right lumbar paraspinals Mobilization Type Myofascial Release,Rolling Body Position Sidelying Comments Reported decrease in pain PT-OP-R Modalities Start: 01/03/19 16:37 Freq: Status: Active Protocol: Document 02/21/19 09:05 [facility] (Rec: 02/21/19 16:14 [facility] [id number]) Hot Pack/Cold Pack Treatment Hot Pack Location lumbar spine, right groin Patient Position Hooklying Treatment Duration (minutes) 15 Patient Tolerance Good PT-OP-T Assessment and Plan Start: 01/03/19 16:37 Freq: Status: Active Protocol: Document 02/21/19 09:05 [facility] (Rec: 02/21/19 09:47 [facility] [id number]) Physical Therapy Assessment Goals Four Impairment Awareness of proper movement patterns and body mechanics for LB Short Term Goal (STG) Goal achieved 01/19/19 Fdc Goal (LTG) Goal achieved 01/19/19 LTG Duration Goal MET Three Impairment Poor core strength Short Term Goal (STG) Establish abdominal stabilization HEP 02/01/19: continue to progress HEP STG Duration 02/04/19 Fdc Goal (LTG) Advance to level II stabilization activities 02/01/19: good goal progress LTG Duration 03/07/19 Oswestry disability index score Contracts Administrator Goal (LTG) decrease score to no greater than 40% 02/01/19: good goal progress LTG Duration 03/07/19 Two Impairment Decrease functional activity level Short Term Goal (STG) Improve standing balance on each extremity to 10 seconds. 02/01/19: not tolerated STG Duration 02/04/19 Contracts Administrator Goal (LTG) Increase strength/endurance so that patient can perform light lifting more than 10 pounds, and to vacuum one room at a time. 02/01/19: good goal progress LTG Duration 03/07/19 One Impairment Weakness into LEs Fdc Goal (LTG) MMT to LE grade 5/5 strength 02/01/19: good goal progress LTG Duration 03/07/19 decreased ROM and strength left foot/ankle Impairment tightness and weakness gloria gastroc Contracts Administrator Goal (LTG) Improve gloria foot and ankle ROM and strength to WNL, patient to be independnet with HEP. 02/01/19: good goal progress LTG Duration 03/07/19 pain right foot/ankle Impairment bilateral foot and ankle pain limiting activity Contracts Administrator Goal (LTG) Improve pain right foot and ankle sufficient to allow her to increase her walking ability from 2-6 blocks for functional community ambulation 02/01/19: decreased tolerance for weight-bearing activity today. LTG Duration 03/07/19
--- NOTE | 2019-02-23 09:45 | PT.OTN ---
Current Diagnoses Disorder of muscle, unspecified (02/23/19) Arthrodesis status (02/23/19) Physical Therapy Treatment Note PT-OP-A Visit Information Start: 01/03/19 16:37 Freq: Status: Active Protocol: Document 02/23/19 08:59 SAK (Rec: 02/23/19 09:45 SAK [id number]) Out-Patient Physical Therapy Visit Information Visit Information Visit Type Treatment Note Visit Start Time 09:00 Visit Stop Time 09:58 Total Visit Minutes 55 Visit Number 14 Number of COMMUNITY HEALTH SPECIALIST Visits 0 PT-OP-B Current Condition Start: 01/03/19 16:37 Freq: Status: Active Protocol: Document 01/03/19 16:40 NFW (Rec: 01/03/19 17:45 NFW [id number]) Current Condition History of Current Condition Onset Date 10/10/18 Current Complaints Weak with decrease balance, low functional activity level. History of Current Condition Patient had lumbar fusion . Had secondary edema and blood clots requiring debridment on 10/26/18 and now doing very well. Future Testing and Treatments Planned 01/18/19 CAT scan left foot - to assess possibility of removing screws from talonavicular fusion performed 02/22 Treatment Goals Patient/Caregiver Goals Regain core and LE strength. Would like to be able to return to extracurricular activities of gardening, cleaning her home and increasing her walking time. Weightbearing tolerance limited by pain in ankles. May need screws removed from left ankle and possible may need talonavicular fusion on right ankle. Prior Functional Status Baseline Function- ADL's Modified Independent Baseline Function- Mobility Modified Independent Current Functional Impairments (Reported) Functional Limitations- ADL's None Functional Limitations- Mobility/Gait Walking limited to maximum of one block due to ankles/feet. 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 Patient was placed on minimal activities by surgeon. Functional Limitations- Recreation/ Has not been able to resume Hobbies any gardening activities. PT-OP-C Subjective Start: 01/03/19 16:37 Freq: Status: Active Protocol: Document 02/23/19 08:59 SAK (Rec: 02/23/19 09:45 SAK [id number]) OP-PT Subjective Patient Comments Patient Comments Reports slept for 12 hrs 2 nights in a row, LBP much better, feet not feeling well. Groin PT-OP-D Balance Start: 01/03/19 16:37 Freq: Status: Active Protocol: Document 01/03/19 16:40 NFW (Rec: 01/03/19 17:45 NFW [id number]) OP-PT Balance Assessment Sitting Balance Static Sitting Balance Ability Normal Dynamic Sitting Balance Ability Normal Standing Balance Static Standing Balance Ability Good Dynamic Standing Balance Ability Good Standing Balance Comments Both good for the first 5 minutes after that time pain in feet, not due to LB. Loera Fall Scale Copyright Permission PT-OP-G Mobility & Gait Start: 01/03/19 16:37 Freq: Status: Active Protocol: Document 01/03/19 16:40 NFW (Rec: 01/03/19 17:45 NFW [id number]) OP Mobility Evaluation Functional Movements Lifting and Carrying Lifting/carrying limited to < 5 lbs. Squats Limited by pain in feet/ankles . Running Assessment Unable OP Gait Assessment Gait Gait Assistance Required: Independent Assistive Devices Assistive Device None Gait Deviations General Gait Pattern Antalgic,Decreased Stride Length Factors Limiting Gait Function Factors Limiting Gait Function Decreased Activity Tolerance, Decreased Strength,Pain Comments Gait Comments Gait is antalgic favoring the right foot and ankle. Patient hold RLE in ER in ambulation. PT-OP-H Neuro Start: 01/03/19 16:37 Freq: Status: Active Protocol: Document 01/03/19 16:40 NFW (Rec: 01/03/19 17:45 NFW [id number]) Sensation Evaluation Gross Sensation Gross Sensation Right LE Impaired Sensation Description Numbness,Tingling,Pins & [place] Dermatome Impairments L5,S1,S2 Deep Tendon Reflex & Clonus Assessment Deep Tendon Reflex Bilateral Achilles Deep Tendon Reflex 1+ Diminished Bilateral Patellar Deep Tendon Reflex 1+ Diminished PT-OP-J Posture/Palpation/Skin Start: 01/03/19 16:37 Freq: Status: Active Protocol: Document 01/03/19 16:40 NFW (Rec: 01/03/19 17:45 NFW [id number]) Posture Evaluation Position Standing Shoulder Posture (R) Forward,(R) Elevated Scapula Posture (L) Neutral,(R) Winged Pelvis Posture (L) Iliac Crest Superior Weight Distribution Weight Shifted Left,Decreased Wt.Bear on (R) Hip Posture (L) Neutral,(R) Neutral Knee Posture (R) Genu Valgus,(L) Genu Recurvatum,(R) Genu Recurvatum Foot Arch (L) No Arch,(R) No Arch Palpation Assessment Location One Palpation Location Lumbar Spine Palpation Details No problems with palpation at and around surgical site. PT-OP-K Range of Motion Start: 01/03/19 16:37 Freq: Status: Active Protocol: Document 01/03/19 16:40 NFW (Rec: 01/03/19 17:45 NFW [id number]) Lumbar Spine Range of Motion Lumbar Spine Active Comments Active ROM not tested due to recent lumbar fusion. Hip Goniometric Range of Motion Hip Right Active Hip ROM WFL Yes Testing Position Supine Straight Leg Raise 50 Left Active Hip ROM WFL Yes Testing Position Supine Straight Leg Raise 50 Hip ROM Limitations Hip ROM Limitations Soft Tissue Tightness Comments Patient has functional ROM but decrease flexibility noted in HS/Gastrocs/hip abductors/hip flexors. PT-OP-L Special Tests Start: 01/03/19 16:37 Freq: Status: Active Protocol: Document 01/03/19 16:40 NFW (Rec: 01/03/19 17:45 NFW [id number]) Special Tests Other Special Tests Special Tests One Legged Balancing - right unable, left 5 seconds PT-OP-M Strength Start: 01/03/19 16:37 Freq: Status: Active Protocol: Document 01/03/19 16:40 NFW (Rec: 01/03/19 17:45 NFW [id number]) Hip Strength Hip Manual Muscle Testing Left Flexion (L2) 4- Good- Extension (S1) 4 Good Abduction 4 Good External Rotation 4 Good Right Flexion (L2) 4- Good- Extension (S1) 4 Good Abduction 4 Good External Rotation 4 Good Knee Strength Knee Manual Muscle Testing Left Flexion (S2) 4 Good Extension (L3) 4 Good Right Flexion (S2) 5 Normal Extension (L3) 5 Normal Ankle/Foot Strength Ankle and Foot Manual Muscle Testing Right Dorsiflexion (L4) 4 Good Plantarflexion (S1) 4 Good Left Dorsiflexion (L4) 4 Good Plantarflexion (S1) 4 Good Toe Strength Toe Manual Muscle Testing Right Great Toe Extension 3 Fair Left Great Toe Extension 4 Good PT-OP-Q Treatments Start: 01/03/19 16:37 Freq: Status: Active Protocol: Document 02/23/19 08:59 [facility] (Rec: 02/23/19 09:45 [facility] [id number]) Cardio Equipment Recumbent Stepper (Sci-Fit) Duration (Minutes) 10 Resistance 1.5 Seat Position 11 Gym Equipment Shuttle Recovery Bilateral Squats Details with short foot exercise, core activation Resistance 50 Shuttle Recovery Platform Stable Reps/Time 10x2 Therapeutic Exercises Sitting Exercises row, shld ext Resistance L1 TB Reps/Minutes 10x hip hinge with abdominal activation Sitting Exercise Name sit to stand Equipment Used yardstick Reps/Minutes 3x Comments verbal and manual cues march Reps/Minutes 5x Comments with emphasis on TrA activation Manual Therapy Treatment Soft Tissue Mobilization right lumbar paraspinals Mobilization Type Myofascial Release,Rolling Body Position Sidelying Comments Reported decrease in pain Taping 1 Body Location gloria arches Treatment Focus support and pain reduction Type of Tape Kinesio Tape Comments 2 I strips each foot PT-OP-R Modalities Start: 01/03/19 16:37 Freq: Status: Active Protocol: Document 02/23/19 08:59 [facility] (Rec: 02/23/19 09:45 [facility] [id number]) Hot Pack/Cold Pack Treatment Hot Pack Location lumbar spine, right groin Patient Position Hooklying Treatment Duration (minutes) 15 Patient Tolerance Good PT-OP-T Assessment and Plan Start: 01/03/19 16:37 Freq: Status: Active Protocol: Document 02/23/19 08:59 [facility] (Rec: 02/23/19 09:45 [facility] [id number]) Physical Therapy Assessment Goals Four Impairment Awareness of proper movement patterns and body mechanics for LB Short Term Goal (STG) Goal achieved 01/19/19 Shelter Goal (LTG) Goal achieved 01/19/19 LTG Duration Goal MET Three Impairment Poor core strength Short Term Goal (STG) Establish abdominal stabilization HEP 02/01/19: continue to progress HEP STG Duration 02/04/19 Shelter Goal (LTG) Advance to level II stabilization activities 02/01/19: good goal progress LTG Duration 03/07/19 Oswestry disability index score Shelter Goal (LTG) decrease score to no greater than 40% 02/01/19: good goal progress LTG Duration 03/07/19 Two Impairment Decrease functional activity level Short Term Goal (STG) Improve standing balance on each extremity to 10 seconds. 02/01/19: not tolerated STG Duration 02/04/19 Shelter Goal (LTG) Increase strength/endurance so that patient can perform light lifting more than 10 pounds, and to vacuum one room at a time. 02/01/19: good goal progress LTG Duration 03/07/19 One Impairment Weakness into LEs Shelter Goal (LTG) MMT to LE grade 5/5 strength 02/01/19: good goal progress LTG Duration 03/07/19 decreased ROM and strength left foot/ankle Impairment tightness and weakness gloria gastroc Shelter Goal (LTG) Improve gloria foot and ankle ROM and strength to WNL, patient to be independnet with HEP. 02/01/19: good goal progress LTG Duration 03/07/19 pain right foot/ankle Impairment bilateral foot and ankle pain limiting activity Shelter Goal (LTG) Improve pain right foot and ankle sufficient to allow her to increase her walking ability from 2-6 blocks for functional community ambulation 02/01/19: decreased tolerance for weight-bearing activity today. LTG Duration 03/07/19 Physical Therapy Plan Frequency and Duration Frequency of Treatment 2x/Week Duration of Treatment 8 weeks Plan of Care Start Date 01/03/19 Plan of Care End Date 03/07/19 Next Visit Focus/Plan Next Note Type Treatment Note Next Visit Plan Continue PT per POC to improve strength, core stabilization and activity tolerance
--- NOTE | 2019-02-27 13:56 | PT.OTN ---
Current Diagnoses Disorder of muscle, unspecified (02/27/19) Arthrodesis status (02/27/19) Physical Therapy Treatment Note PT-OP-A Visit Information Start: 01/03/19 16:37 Freq: Status: Active Protocol: Document 02/27/19 09:13 SAK (Rec: 02/27/19 09:57 SAK [id number]) Out-Patient Physical Therapy Visit Information Visit Information Visit Type Treatment Note Visit Start Time 09:00 Visit Stop Time 09:58 Total Visit Minutes 55 Visit Number 15 Number of CELL PHONE REPAIR TECHNICIAN Visits 0 PT-OP-B Current Condition Start: 01/03/19 16:37 Freq: Status: Active Protocol: Document 01/03/19 16:40 NFW (Rec: 01/03/19 17:45 NFW [id number]) Current Condition History of Current Condition Onset Date 10/10/18 Current Complaints Weak with decrease balance, low functional activity level. History of Current Condition Patient had lumbar fusion . Had secondary edema and blood clots requiring debridment on 10/26/18 and now doing very well. Future Testing and Treatments Planned 01/18/19 CAT scan left foot - to assess possibility of removing screws from talonavicular fusion performed 02/22 Treatment Goals Patient/Caregiver Goals Regain core and LE strength. Would like to be able to return to extracurricular activities of gardening, cleaning her home and increasing her walking time. Weightbearing tolerance limited by pain in ankles. May need screws removed from left ankle and possible may need talonavicular fusion on right ankle. Prior Functional Status Baseline Function- ADL's Modified Independent Baseline Function- Mobility Modified Independent Current Functional Impairments (Reported) Functional Limitations- ADL's None Functional Limitations- Mobility/Gait Walking limited to maximum of one block due to ankles/feet. 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 Patient was placed on minimal activities by surgeon. Functional Limitations- Recreation/ Has not been able to resume Hobbies any gardening activities. PT-OP-C Subjective Start: 01/03/19 16:37 Freq: Status: Active Protocol: Document 02/27/19 09:13 SAK (Rec: 02/27/19 09:57 SAK [id number]) OP-PT Subjective Patient Comments Patient Comments LBP not too bad, occasional twinges. Groin pain better. Getting UBC brace right foot this week. Thinking she needs one for her left foot. PT-OP-D Balance Start: 01/03/19 16:37 Freq: Status: Active Protocol: Document 01/03/19 16:40 NFW (Rec: 01/03/19 17:45 NFW [id number]) OP-PT Balance Assessment Sitting Balance Static Sitting Balance Ability Normal Dynamic Sitting Balance Ability Normal Standing Balance Static Standing Balance Ability Good Dynamic Standing Balance Ability Good Standing Balance Comments Both good for the first 5 minutes after that time pain in feet, not due to LB. Loera Fall Scale Copyright Permission PT-OP-G Mobility & Gait Start: 01/03/19 16:37 Freq: Status: Active Protocol: Document 01/03/19 16:40 NFW (Rec: 01/03/19 17:45 NFW [id number]) OP Mobility Evaluation Functional Movements Lifting and Carrying Lifting/carrying limited to < 5 lbs. Squats Limited by pain in feet/ankles . Running Assessment Unable OP Gait Assessment Gait Gait Assistance Required: Independent Assistive Devices Assistive Device None Gait Deviations General Gait Pattern Antalgic,Decreased Stride Length Factors Limiting Gait Function Factors Limiting Gait Function Decreased Activity Tolerance, Decreased Strength,Pain Comments Gait Comments Gait is antalgic favoring the right foot and ankle. Patient hold RLE in ER in ambulation. PT-OP-H Neuro Start: 01/03/19 16:37 Freq: Status: Active Protocol: Document 01/03/19 16:40 NFW (Rec: 01/03/19 17:45 NFW [id number]) Sensation Evaluation Gross Sensation Gross Sensation Right LE Impaired Sensation Description Numbness,Tingling,Pins & [place] Dermatome Impairments L5,S1,S2 Deep Tendon Reflex & Clonus Assessment Deep Tendon Reflex Bilateral Achilles Deep Tendon Reflex 1+ Diminished Bilateral Patellar Deep Tendon Reflex 1+ Diminished PT-OP-J Posture/Palpation/Skin Start: 01/03/19 16:37 Freq: Status: Active Protocol: Document 01/03/19 16:40 NFW (Rec: 01/03/19 17:45 NFW [id number]) Posture Evaluation Position Standing Shoulder Posture (R) Forward,(R) Elevated Scapula Posture (L) Neutral,(R) Winged Pelvis Posture (L) Iliac Crest Superior Weight Distribution Weight Shifted Left,Decreased Wt.Bear on (R) Hip Posture (L) Neutral,(R) Neutral Knee Posture (R) Genu Valgus,(L) Genu Recurvatum,(R) Genu Recurvatum Foot Arch (L) No Arch,(R) No Arch Palpation Assessment Location One Palpation Location Lumbar Spine Palpation Details No problems with palpation at and around surgical site. PT-OP-K Range of Motion Start: 01/03/19 16:37 Freq: Status: Active Protocol: Document 01/03/19 16:40 NFW (Rec: 01/03/19 17:45 NFW [id number]) Lumbar Spine Range of Motion Lumbar Spine Active Comments Active ROM not tested due to recent lumbar fusion. Hip Goniometric Range of Motion Hip Right Active Hip ROM WFL Yes Testing Position Supine Straight Leg Raise 50 Left Active Hip ROM WFL Yes Testing Position Supine Straight Leg Raise 50 Hip ROM Limitations Hip ROM Limitations Soft Tissue Tightness Comments Patient has functional ROM but decrease flexibility noted in HS/Gastrocs/hip abductors/hip flexors. PT-OP-L Special Tests Start: 01/03/19 16:37 Freq: Status: Active Protocol: Document 01/03/19 16:40 NFW (Rec: 01/03/19 17:45 NFW [id number]) Special Tests Other Special Tests Special Tests One Legged Balancing - right unable, left 5 seconds PT-OP-M Strength Start: 01/03/19 16:37 Freq: Status: Active Protocol: Document 01/03/19 16:40 NFW (Rec: 01/03/19 17:45 NFW [id number]) Hip Strength Hip Manual Muscle Testing Left Flexion (L2) 4- Good- Extension (S1) 4 Good Abduction 4 Good External Rotation 4 Good Right Flexion (L2) 4- Good- Extension (S1) 4 Good Abduction 4 Good External Rotation 4 Good Knee Strength Knee Manual Muscle Testing Left Flexion (S2) 4 Good Extension (L3) 4 Good Right Flexion (S2) 5 Normal Extension (L3) 5 Normal Ankle/Foot Strength Ankle and Foot Manual Muscle Testing Right Dorsiflexion (L4) 4 Good Plantarflexion (S1) 4 Good Left Dorsiflexion (L4) 4 Good Plantarflexion (S1) 4 Good Toe Strength Toe Manual Muscle Testing Right Great Toe Extension 3 Fair Left Great Toe Extension 4 Good PT-OP-Q Treatments Start: 01/03/19 16:37 Freq: Status: Active Protocol: Document 02/27/19 09:13 [facility] (Rec: 02/27/19 09:57 [facility] [id number]) Cardio Equipment Recumbent Stepper (Sci-Fit) Duration (Minutes) 10 Resistance 1.5 Seat Position 11 Gym Equipment Shuttle Recovery Bilateral Squats Details with short foot exercise, core activation Resistance 50 Shuttle Recovery Platform Stable Reps/Time 10x2 Therapeutic Exercises Supine Exercises SKTC Reps/Minutes 2x30 HC stretch Reps/Minutes 2x30 HS stretch Reps/Minutes 2x 30 Comments while supine on shuttle leg press automatic core engagement Supine Exercise Name isometric push down with arms Comments PT resistance:sagittal and diagnonal alt UE and LE lift Supine Exercise Name with TrA Reps/Minutes 10x Comments bent knee Sitting Exercises row, shld ext Resistance L1 TB Reps/Minutes 10x hip hinge with abdominal activation Sitting Exercise Name sit to stand Equipment Used yardstick Reps/Minutes 3x Comments verbal and manual cues gastroc stretch Reps/Minutes 2x30 march Reps/Minutes 5x Comments with emphasis on TrA activation 3 Sitting Exercise Name short foot Reps/Minutes 10x Manual Therapy Treatment Soft Tissue Mobilization right lumbar paraspinals Mobilization Type Myofascial Release,Rolling Body Position Sidelying Comments Reported decrease in pain Taping 1 Body Location gloria arches Treatment Focus support and pain reduction Type of Tape Kinesio Tape Comments 2 I strips each foot PT-OP-R Modalities Start: 01/03/19 16:37 Freq: Status: Active Protocol: Document 02/27/19 09:13 [facility] (Rec: 02/27/19 09:57 [facility] [id number]) Hot Pack/Cold Pack Treatment Hot Pack Location lumbar spine, right groin Patient Position Hooklying Treatment Duration (minutes) 15 Patient Tolerance Good PT-OP-T Assessment and Plan Start: 01/03/19 16:37 Freq: Status: Active Protocol: Document 02/27/19 09:13 [facility] (Rec: 02/27/19 09:57 [facility] [id number]) Physical Therapy Assessment Goals Four Impairment Awareness of proper movement patterns and body mechanics for LB Short Term Goal (STG) Goal achieved 01/19/19 Printer Slotter Helper Goal (LTG) Goal achieved 01/19/19 LTG Duration Goal MET Three Impairment Poor core strength Short Term Goal (STG) Establish abdominal stabilization HEP 02/01/19: continue to progress HEP STG Duration 02/04/19 Printer Slotter Helper Goal (LTG) Advance to level II stabilization activities 02/01/19: good goal progress LTG Duration 03/07/19 Oswestry disability index score Printer Slotter Helper Goal (LTG) decrease score to no greater than 40% 02/01/19: good goal progress LTG Duration 03/07/19 Two Impairment Decrease functional activity level Short Term Goal (STG) Improve standing balance on each extremity to 10 seconds. 02/01/19: not tolerated STG Duration 02/04/19 Senior Care Goal (LTG) Increase strength/endurance so that patient can perform light lifting more than 10 pounds, and to vacuum one room at a time. 02/01/19: good goal progress LTG Duration 03/07/19 One Impairment Weakness into LEs Printer Slotter Helper Goal (LTG) MMT to LE grade 5/5 strength 02/01/19: good goal progress LTG Duration 03/07/19 decreased ROM and strength left foot/ankle Impairment tightness and weakness gloria gastroc Senior Care Goal (LTG) Improve gloria foot and ankle ROM and strength to WNL, patient to be independnet with HEP. 02/01/19: good goal progress LTG Duration 03/07/19 pain right foot/ankle Impairment bilateral foot and ankle pain limiting activity Senior Care Goal (LTG) Improve pain right foot and ankle sufficient to allow her to increase her walking ability from 2-6 blocks for functional community ambulation 02/01/19: decreased tolerance for weight-bearing activity today. LTG Duration 03/07/19 Assessment Summary Assessment Patsy is demonstrating improved ability to modify her activity level, pace herself, take rest breaks when needed. LBP and groin pain improved today. Reports foot pain limiting her standing tolerance. Getting new brace for right foot this week, may need for left as well. Physical Therapy Plan Frequency and Duration Frequency of Treatment 2x/Week Duration of Treatment 8 weeks Plan of Care Start Date 01/03/19 Plan of Care End Date 03/07/19 Next Visit Focus/Plan Next Note Type Treatment Note Next Visit Plan Closed chain ex as tolerated. Automatic core engagement exercises supine. Assess fit and tolerance for new foot brace right LE.
--- NOTE | 2019-03-02 18:15 | PT.OTN ---
Current Diagnoses Disorder of muscle, unspecified (03/02/19) Arthrodesis status (03/02/19) Physical Therapy Treatment Note PT-OP-A Visit Information Start: 01/03/19 16:37 Freq: Status: Active Protocol: Document 03/02/19 16:51 [facility] (Rec: 03/02/19 18:15 [facility] [id number]) Out-Patient Physical Therapy Visit Information Visit Information Visit Type Treatment Note Visit Start Time 16:50 Visit Stop Time 17:45 Total Visit Minutes 55 Visit Number 16 Number of FORECAST ANALYST Visits 0 PT-OP-B Current Condition Start: 01/03/19 16:37 Freq: Status: Active Protocol: Document 01/03/19 16:40 NFW (Rec: 01/03/19 17:45 NFW [id number]) Current Condition History of Current Condition Onset Date 10/10/18 Current Complaints Weak with decrease balance, low functional activity level. History of Current Condition Patient had lumbar fusion . Had secondary edema and blood clots requiring debridment on 10/26/18 and now doing very well. Future Testing and Treatments Planned 01/18/19 CAT scan left foot - to assess possibility of removing screws from talonavicular fusion performed 02/22 Treatment Goals Patient/Caregiver Goals Regain core and LE strength. Would like to be able to return to extracurricular activities of gardening, cleaning her home and increasing her walking time. Weightbearing tolerance limited by pain in ankles. May need screws removed from left ankle and possible may need talonavicular fusion on right ankle. Prior Functional Status Baseline Function- ADL's Modified Independent Baseline Function- Mobility Modified Independent Current Functional Impairments (Reported) Functional Limitations- ADL's None Functional Limitations- Mobility/Gait Walking limited to maximum of one block due to ankles/feet. 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 Patient was placed on minimal activities by surgeon. Functional Limitations- Recreation/ Has not been able to resume Hobbies any gardening activities. PT-OP-C Subjective Start: 01/03/19 16:37 Freq: Status: Active Protocol: Document 03/02/19 16:51 [facility] (Rec: 03/02/19 18:15 [facility] [id number]) OP-PT Subjective Patient Comments Patient Comments Pt reports R SI region has been pretty sore with all the standing she has been doing with the past couple days. Overall doing well. Right now ankles are what limit her when walking her neighborhood. Pt reports she forgot to bring in her foot brace and will bring it next time. PT-OP-D Balance Start: 01/03/19 16:37 Freq: Status: Active Protocol: Document 01/03/19 16:40 NFW (Rec: 01/03/19 17:45 NFW [id number]) OP-PT Balance Assessment Sitting Balance Static Sitting Balance Ability Normal Dynamic Sitting Balance Ability Normal Standing Balance Static Standing Balance Ability Good Dynamic Standing Balance Ability Good Standing Balance Comments Both good for the first 5 minutes after that time pain in feet, not due to LB. Loera Fall Scale Copyright Permission PT-OP-G Mobility & Gait Start: 01/03/19 16:37 Freq: Status: Active Protocol: Document 01/03/19 16:40 NFW (Rec: 01/03/19 17:45 NFW [id number]) OP Mobility Evaluation Functional Movements Lifting and Carrying Lifting/carrying limited to < 5 lbs. Squats Limited by pain in feet/ankles . Running Assessment Unable OP Gait Assessment Gait Gait Assistance Required: Independent Assistive Devices Assistive Device None Gait Deviations General Gait Pattern Antalgic,Decreased Stride Length Factors Limiting Gait Function Factors Limiting Gait Function Decreased Activity Tolerance, Decreased Strength,Pain Comments Gait Comments Gait is antalgic favoring the right foot and ankle. Patient hold RLE in ER in ambulation. PT-OP-H Neuro Start: 01/03/19 16:37 Freq: Status: Active Protocol: Document 01/03/19 16:40 NFW (Rec: 01/03/19 17:45 NFW [id number]) Sensation Evaluation Gross Sensation Gross Sensation Right LE Impaired Sensation Description Numbness,Tingling,Pins & [place] Dermatome Impairments L5,S1,S2 Deep Tendon Reflex & Clonus Assessment Deep Tendon Reflex Bilateral Achilles Deep Tendon Reflex 1+ Diminished Bilateral Patellar Deep Tendon Reflex 1+ Diminished PT-OP-J Posture/Palpation/Skin Start: 01/03/19 16:37 Freq: Status: Active Protocol: Document 01/03/19 16:40 NFW (Rec: 01/03/19 17:45 NFW [id number]) Posture Evaluation Position Standing Shoulder Posture (R) Forward,(R) Elevated Scapula Posture (L) Neutral,(R) Winged Pelvis Posture (L) Iliac Crest Superior Weight Distribution Weight Shifted Left,Decreased Wt.Bear on (R) Hip Posture (L) Neutral,(R) Neutral Knee Posture (R) Genu Valgus,(L) Genu Recurvatum,(R) Genu Recurvatum Foot Arch (L) No Arch,(R) No Arch Palpation Assessment Location One Palpation Location Lumbar Spine Palpation Details No problems with palpation at and around surgical site. PT-OP-K Range of Motion Start: 01/03/19 16:37 Freq: Status: Active Protocol: Document 01/03/19 16:40 NFW (Rec: 01/03/19 17:45 NFW [id number]) Lumbar Spine Range of Motion Lumbar Spine Active Comments Active ROM not tested due to recent lumbar fusion. Hip Goniometric Range of Motion Hip Right Active Hip ROM WFL Yes Testing Position Supine Straight Leg Raise 50 Left Active Hip ROM WFL Yes Testing Position Supine Straight Leg Raise 50 Hip ROM Limitations Hip ROM Limitations Soft Tissue Tightness Comments Patient has functional ROM but decrease flexibility noted in HS/Gastrocs/hip abductors/hip flexors. PT-OP-L Special Tests Start: 01/03/19 16:37 Freq: Status: Active Protocol: Document 01/03/19 16:40 NFW (Rec: 01/03/19 17:45 NFW [id number]) Special Tests Other Special Tests Special Tests One Legged Balancing - right unable, left 5 seconds PT-OP-M Strength Start: 01/03/19 16:37 Freq: Status: Active Protocol: Document 01/03/19 16:40 NFW (Rec: 01/03/19 17:45 NFW [id number]) Hip Strength Hip Manual Muscle Testing Left Flexion (L2) 4- Good- Extension (S1) 4 Good Abduction 4 Good External Rotation 4 Good Right Flexion (L2) 4- Good- Extension (S1) 4 Good Abduction 4 Good External Rotation 4 Good Knee Strength Knee Manual Muscle Testing Left Flexion (S2) 4 Good Extension (L3) 4 Good Right Flexion (S2) 5 Normal Extension (L3) 5 Normal Ankle/Foot Strength Ankle and Foot Manual Muscle Testing Right Dorsiflexion (L4) 4 Good Plantarflexion (S1) 4 Good Left Dorsiflexion (L4) 4 Good Plantarflexion (S1) 4 Good Toe Strength Toe Manual Muscle Testing Right Great Toe Extension 3 Fair Left Great Toe Extension 4 Good PT-OP-Q Treatments Start: 01/03/19 16:37 Freq: Status: Active Protocol: Document 03/02/19 16:51 [facility] (Rec: 03/02/19 18:15 [facility] [id number]) Cardio Equipment Recumbent Stepper (Sci-Fit) Duration (Minutes) 10 Resistance 1.5 Seat Position 11 Therapeutic Exercises Supine Exercises SKTC Reps/Minutes 2x30 6 Supine Exercise Name piriformis stretch Side right Reps/Minutes 30 sec Manual Therapy Treatment Soft Tissue Mobilization right lumbar paraspinals Body Location paraspinals & QL Mobilization Type Myofascial Release,Rolling Body Position Sidelying Comments Reported decrease in pain 3 Body Location scar tissue Mobilization Type Myofascial Release Intensity/Depth Superficial Body Position Sidelying Joint Mobilizations innominate Joint R Direction GAPPING Grade II hip Joint R Direction post FM for IR Grade II Body Position Supine PT-OP-R Modalities Start: 01/03/19 16:37 Freq: Status: Active Protocol: Document 03/02/19 16:51 [facility] (Rec: 03/02/19 18:15 [facility] [id number]) Hot Pack/Cold Pack Treatment Hot Pack Location lumbar spine, right groin Patient Position Hooklying Treatment Duration (minutes) 15 Patient Tolerance Good PT-OP-T Assessment and Plan Start: 01/03/19 16:37 Freq: Status: Active Protocol: Document 03/02/19 16:51 [facility] (Rec: 03/02/19 18:15 [facility] [id number]) Physical Therapy Assessment Goals Four Impairment Awareness of proper movement patterns and body mechanics for LB Short Term Goal (STG) Goal achieved 01/19/19 Senior Care Goal (LTG) Goal achieved 01/19/19 LTG Duration Goal MET Three Impairment Poor core strength Short Term Goal (STG) Establish abdominal stabilization HEP 02/01/19: continue to progress HEP STG Duration 02/04/19 Last Model Maker Goal (LTG) Advance to level II stabilization activities 02/01/19: good goal progress LTG Duration 03/07/19 Oswestry disability index score Senior Care Goal (LTG) decrease score to no greater than 40% 02/01/19: good goal progress LTG Duration 03/07/19 Two Impairment Decrease functional activity level Short Term Goal (STG) Improve standing balance on each extremity to 10 seconds. 02/01/19: not tolerated STG Duration 02/04/19 Senior Care Goal (LTG) Increase strength/endurance so that patient can perform light lifting more than 10 pounds, and to vacuum one room at a time. 02/01/19: good goal progress LTG Duration 03/07/19 One Impairment Weakness into LEs Senior Care Goal (LTG) MMT to LE grade 5/5 strength 02/01/19: good goal progress LTG Duration 03/07/19 decreased ROM and strength left foot/ankle Impairment tightness and weakness gloria gastroc Last Model Maker Goal (LTG) Improve gloria foot and ankle ROM and strength to WNL, patient to be independnet with HEP. 02/01/19: good goal progress LTG Duration 03/07/19 pain right foot/ankle Impairment bilateral foot and ankle pain limiting activity Senior Care Goal (LTG) Improve pain right foot and ankle sufficient to allow her to increase her walking ability from 2-6 blocks for functional community ambulation 02/01/19: decreased tolerance for weight-bearing activity today. LTG Duration 03/07/19 Assessment Summary Assessment Pt cont to require cuieng during exercises to not push into pain. Encouraged pt to be gentle with stretching. She reported relief with gentle SI gapping. She reports relief with STM Physical Therapy Plan Frequency and Duration Frequency of Treatment 2x/Week Duration of Treatment 8 weeks Plan of Care Start Date 01/03/19 Plan of Care End Date 03/07/19 Next Visit Focus/Plan Next Note Type Progress Note Next Visit Plan Closed chain ex as tolerated. Automatic core engagement exercises supine. Assess fit and tolerance for new foot brace right LE.
--- NOTE | 2019-03-07 11:12 | PT.OTRE ---
Current Diagnoses Disorder of muscle, unspecified (03/07/19) Arthrodesis status (03/07/19) Visit Care Team Role Provider Type Ellie Fountain PA-C Primary Care Provider Advanced Pelt Shearer Specialty: Internal Medicine Address: [address] [place] [address], [id number] Email: [email or web address] Attending Provider Non-Staff Specialty: Orthopedic Surgery Address: [address] [place] [address], [place] [id number] [place] [address], [id number] Email: Physical Therapy Re-Evaluation PT-OP-A Visit Information Start: 01/03/19 16:37 Freq: Status: Active Protocol: Document 03/07/19 09:01 SAK (Rec: 03/07/19 09:48 SAK [id number]) Out-Patient Physical Therapy Visit Information Visit Information Visit Type Re-Evaluation Visit Start Time 09:00 Visit Stop Time 10:00 Total Visit Minutes 60 Visit Number 17 Number of PAPER BAG MAKING MACHINIST Visits 0 PT-OP-B Current Condition Start: 01/03/19 16:37 Freq: Status: Active Protocol: Document 01/03/19 16:40 NFW (Rec: 01/03/19 17:45 NFW [id number]) Current Condition History of Current Condition Onset Date 10/10/18 Current Complaints Weak with decrease balance, low functional activity level. History of Current Condition Patient had lumbar fusion . Had secondary edema and blood clots requiring debridment on 10/26/18 and now doing very well. Future Testing and Treatments Planned 01/18/19 CAT scan left foot - to assess possibility of removing screws from talonavicular fusion performed 02/22 Treatment Goals Patient/Caregiver Goals Regain core and LE strength. Would like to be able to return to extracurricular activities of gardening, cleaning her home and increasing her walking time. Weightbearing tolerance limited by pain in ankles. May need screws removed from left ankle and possible may need talonavicular fusion on right ankle. Prior Functional Status Baseline Function- ADL's Modified Independent Baseline Function- Mobility Modified Independent Current Functional Impairments (Reported) Functional Limitations- ADL's None Functional Limitations- Mobility/Gait Walking limited to maximum of one block due to ankles/feet. 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 Patient was placed on minimal activities by surgeon. Functional Limitations- Recreation/ Has not been able to resume Hobbies any gardening activities. PT-OP-C Subjective Start: 01/03/19 16:37 Freq: Status: Active Protocol: Document 03/07/19 09:01 [facility] (Rec: 03/07/19 09:48 [facility] [id number]) OP-PT Subjective Patient Comments Patient Comments Got new foot brace for right 03/02/19, has worn short amount of time (about 1 hr). Had PT 03/02/19 had horrible back spasms that night and next day ; uncertain whether brace, PT, or something else. Didn't wear brace 03/04/19. Woke up 03/05 with pain on foot L5 distribution. Dida water exercise yesterday 03/06 , did ok but during night mild pain in right foot. Horrible pain outside of right foot last night, felt like it was going to collapse. Forgot to wear brace today. PT-OP-D Balance Start: 01/03/19 16:37 Freq: Status: Active Protocol: Document 01/03/19 16:40 NFW (Rec: 01/03/19 17:45 NFW [id number]) OP-PT Balance Assessment Sitting Balance Static Sitting Balance Ability Normal Dynamic Sitting Balance Ability Normal Standing Balance Static Standing Balance Ability Good Dynamic Standing Balance Ability Good Standing Balance Comments Both good for the first 5 minutes after that time pain in feet, not due to LB. Loera Fall Scale Copyright Permission Evaristo JM, Evaristo RM, Jason SJ. Development of a scale to identify the fall- prone patient. Can J Aging 1989;8;366-7. Cristian Loera (2009). Preventing patient falls. (2nd ed). [place]: Mg. PT-OP-G Mobility & Gait Start: 01/03/19 16:37 Freq: Status: Active Protocol: Document 01/03/19 16:40 NFW (Rec: 01/03/19 17:45 NFW [id number]) OP Mobility Evaluation Functional Movements Lifting and Carrying Lifting/carrying limited to < 5 lbs. Squats Limited by pain in feet/ankles . Running Assessment Unable OP Gait Assessment Gait Gait Assistance Required: Independent Assistive Devices Assistive Device None Gait Deviations General Gait Pattern Antalgic,Decreased Stride Length Factors Limiting Gait Function Factors Limiting Gait Function Decreased Activity Tolerance, Decreased Strength,Pain Comments Gait Comments Gait is antalgic favoring the right foot and ankle. Patient hold RLE in ER in ambulation. PT-OP-H Neuro Start: 01/03/19 16:37 Freq: Status: Active Protocol: Document 01/03/19 16:40 NFW (Rec: 01/03/19 17:45 NFW [id number]) Sensation Evaluation Gross Sensation Gross Sensation Right LE Impaired Sensation Description Numbness,Tingling,Pins & [place] Dermatome Impairments L5,S1,S2 Deep Tendon Reflex & Clonus Assessment Deep Tendon Reflex Bilateral Achilles Deep Tendon Reflex 1+ Diminished Bilateral Patellar Deep Tendon Reflex 1+ Diminished PT-OP-J Posture/Palpation/Skin Start: 01/03/19 16:37 Freq: Status: Active Protocol: Document 01/03/19 16:40 NFW (Rec: 01/03/19 17:45 NFW [id number]) Posture Evaluation Position Standing Shoulder Posture (R) Forward,(R) Elevated Scapula Posture (L) Neutral,(R) Winged Pelvis Posture (L) Iliac Crest Superior Weight Distribution Weight Shifted Left,Decreased Wt.Bear on (R) Hip Posture (L) Neutral,(R) Neutral Knee Posture (R) Genu Valgus,(L) Genu Recurvatum,(R) Genu Recurvatum Foot Arch (L) No Arch,(R) No Arch Palpation Assessment Location One Palpation Location Lumbar Spine Palpation Details No problems with palpation at and around surgical site. PT-OP-K Range of Motion Start: 01/03/19 16:37 Freq: Status: Active Protocol: Document 01/03/19 16:40 NFW (Rec: 01/03/19 17:45 NFW [id number]) Lumbar Spine Range of Motion Lumbar Spine Active Comments Active ROM not tested due to recent lumbar fusion. Hip Goniometric Range of Motion Hip Measured in Degrees Right Active Hip ROM WFL Yes Testing Position Supine Straight Leg Raise 50 Left Active Hip ROM WFL Yes Testing Position Supine Straight Leg Raise 50 Hip ROM Limitations Hip ROM Limitations Soft Tissue Tightness Comments Patient has functional ROM but decrease flexibility noted in HS/Gastrocs/hip abductors/hip flexors. PT-OP-L Special Tests Start: 01/03/19 16:37 Freq: Status: Active Protocol: Document 01/03/19 16:40 NFW (Rec: 01/03/19 17:45 NFW [id number]) Special Tests Other Special Tests Special Tests One Legged Balancing - right unable, left 5 seconds PT-OP-M Strength Start: 01/03/19 16:37 Freq: Status: Active Protocol: Document 01/03/19 16:40 NFW (Rec: 01/03/19 17:45 NFW [id number]) Hip Strength Hip Manual Muscle Testing Left Flexion (L2) 4- Good- Extension (S1) 4 Good Abduction 4 Good External Rotation 4 Good Right Flexion (L2) 4- Good- Extension (S1) 4 Good Abduction 4 Good External Rotation 4 Good Knee Strength Knee Manual Muscle Testing Left Flexion (S2) 4 Good Extension (L3) 4 Good Right Flexion (S2) 5 Normal Extension (L3) 5 Normal Ankle/Foot Strength Ankle and Foot Manual Muscle Testing Right Dorsiflexion (L4) 4 Good Plantarflexion (S1) 4 Good Left Dorsiflexion (L4) 4 Good Plantarflexion (S1) 4 Good Toe Strength Toe Manual Muscle Testing Right Great Toe Extension 3 Fair Left Great Toe Extension 4 Good PT-OP-Q Treatments Start: 01/03/19 16:37 Freq: Status: Active Protocol: Document 03/07/19 09:01 SAK (Rec: 03/07/19 09:48 SAK [id number]) Cardio Equipment Recumbent Stepper (Sci-Fit) Duration (Minutes) 11 Resistance 2.0 Seat Position 11 Gym Equipment Shuttle Recovery Bilateral Squats Details with short foot exercise, core activation Resistance 50 Shuttle Recovery Platform Stable Reps/Time 10x2 Therapeutic Exercises Supine Exercises SKTC Reps/Minutes 2x30 HC stretch Reps/Minutes 2x30 HS stretch Reps/Minutes 2x 30 Comments manual automatic core engagement Supine Exercise Name isometric push down with arms Comments PT resistance:sagittal and diagnonal 6 Supine Exercise Name piriformis stretch Side right Reps/Minutes 30 sec Manual Therapy Treatment Soft Tissue Mobilization right lumbar paraspinals Body Location paraspinals & QL Mobilization Type Myofascial Release,Rolling Body Position Sidelying Comments Reported decrease in pain 3 Body Location scar tissue Mobilization Type Myofascial Release Intensity/Depth Superficial Body Position Sidelying Manual Techniques 1 Type MET for R posterior innominant rotation PT-OP-R Modalities Start: 01/03/19 16:37 Freq: Status: Active Protocol: Document 03/07/19 09:01 [facility] (Rec: 03/07/19 09:48 [facility] [id number]) Hot Pack/Cold Pack Treatment Hot Pack Location lumbar spine, right groin Patient Position Hooklying Treatment Duration (minutes) 15 Patient Tolerance Good PT-OP-T Assessment and Plan Start: 01/03/19 16:37 Freq: Status: Active Protocol: Document 03/07/19 09:01 [facility] (Rec: 03/07/19 09:48 [facility] [id number]) Physical Therapy Assessment Goals Four Impairment Awareness of proper movement patterns and body mechanics for LB Short Term Goal (STG) Goal achieved 01/19/19 Senior Living Goal (LTG) Goal achieved 01/19/19 LTG Duration Goal MET Three Impairment Poor core strength Short Term Goal (STG) Establish abdominal stabilization HEP 02/01/19: continue to progress HEP 02/25/19: goal progress Formula Room Worker Goal (LTG) Advance to level II stabilization activities 02/01/19: good goal progress 03/07/19: goal progress LTG Duration 03/30/19 Oswestry disability index score Senior Living Goal (LTG) decrease score to no greater than 40% 02/01/19: good goal progress 03/07/19: 26%, GOAL MET LTG Duration GOAL MET Two Impairment Decrease functional activity level Short Term Goal (STG) Improve standing balance on each extremity to 10 seconds. 02/01/19: not tolerated 03/07/19: goal abandoned due to foot pain and dysfunction STG Duration 02/04/19 Formula Room Worker Goal (LTG) Increase strength/endurance so that patient can perform light lifting more than 10 pounds, and to vacuum one room at a time. 02/01/19: good goal progress 03/07/19: not lifting greater than 5 lbs at this time. goal progress LTG Duration 03/30/19 One Impairment Weakness into LEs Formula Room Worker Goal (LTG) MMT to LE grade 5/5 strength 02/01/19: good goal progress LTG Duration 03/07/19 decreased ROM and strength left foot/ankle Impairment tightness and weakness gloria gastroc Senior Living Goal (LTG) Improve gloria foot and ankle ROM and strength to WNL, patient to be independnet with HEP. 02/01/19: good goal progress 03/07/19: has had more pain recently, fit with ankle brace right foot. LTG Duration 03/30/19 pain right foot/ankle Impairment bilateral foot and ankle pain limiting activity Formula Room Worker Goal (LTG) Improve pain right foot and ankle sufficient to allow her to increase her walking ability from 2-6 blocks for functional community ambulation 02/01/19: decreased tolerance for weight-bearing activity today. 03/07/19: just obtained new foot brace LTG Duration 03/30/19 Assessment Summary Assessment Patient's pain level variable, cause complicated by new wearing of brace right foot with probable change of biomechanical alignment and function of entire kinetic chain. Did not bring brace today but will at next visit. Best tolerance for aquatic exercises. Continues with HEP. She is frustrated by frequent set-backs but also verbalizes understanding of her complicated issues including the fact that her dysfunction in her feet can cause increase in back pain. She would benefit from further PT with emphasis on core stabilization and functional retraining to help her fully recover from her back surgery and return to better tolerance for her functional activities . Physical Therapy Plan Frequency and Duration Frequency of Treatment 2x/Week Duration of Treatment 4 wks Plan of Care Start Date 03/07/19 Plan of Care End Date 03/30/19 Therapeutic Interventions Therapeutic Interventions Aquatic Therapy,Balance Training,Gait Training,Home Exercise Program,Self-Care/ Home Management,Therapeutic Activities,Therapeutic Exercises Modalities Cold Pack/Ice Massage Next Visit Focus/Plan Next Note Type Progress Note Next Visit Plan Automatic core engagement exercises all positions, closed chain as tolerated. Assess fit and tolerance for new foot brace right LE as relates to biomechanical function and affect on spinal alignment and pain as well as foot alignment, pain, and function.
--- NOTE | 2019-03-09 16:31 | PT.OTN ---
Current Diagnoses Disorder of muscle, unspecified (03/09/19) Arthrodesis status (03/09/19) Physical Therapy Treatment Note PT-OP-A Visit Information Start: 01/03/19 16:37 Freq: Status: Active Protocol: Document 03/09/19 10:26 SAK (Rec: 03/09/19 11:13 SAK [id number]) Out-Patient Physical Therapy Visit Information Visit Information Visit Type Treatment Note Visit Start Time 09:00 Visit Stop Time 10:00 Total Visit Minutes 60 Visit Number 17 Number of TALENT SOURCING SPECIALIST Visits 0 PT-OP-B Current Condition Start: 01/03/19 16:37 Freq: Status: Active Protocol: Document 01/03/19 16:40 NFW (Rec: 01/03/19 17:45 NFW [id number]) Current Condition History of Current Condition Onset Date 10/10/18 Current Complaints Weak with decrease balance, low functional activity level. History of Current Condition Patient had lumbar fusion . Had secondary edema and blood clots requiring debridment on 10/26/18 and now doing very well. Future Testing and Treatments Planned 01/18/19 CAT scan left foot - to assess possibility of removing screws from talonavicular fusion performed 02/22 Treatment Goals Patient/Caregiver Goals Regain core and LE strength. Would like to be able to return to extracurricular activities of gardening, cleaning her home and increasing her walking time. Weightbearing tolerance limited by pain in ankles. May need screws removed from left ankle and possible may need talonavicular fusion on right ankle. Prior Functional Status Baseline Function- ADL's Modified Independent Baseline Function- Mobility Modified Independent Current Functional Impairments (Reported) Functional Limitations- ADL's None Functional Limitations- Mobility/Gait Walking limited to maximum of one block due to ankles/feet. 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 Patient was placed on minimal activities by surgeon. Functional Limitations- Recreation/ Has not been able to resume Hobbies any gardening activities. PT-OP-C Subjective Start: 01/03/19 16:37 Freq: Status: Active Protocol: Document 03/09/19 10:26 SAK (Rec: 03/09/19 11:13 SAK [id number]) OP-PT Subjective Patient Comments Patient Comments Brings new brace for right ankle (wearing in shoe). Thinks her alignment is off, wants assesment of alignment and gait, whether to put another layer in heel lift on left PT-OP-D Balance Start: 01/03/19 16:37 Freq: Status: Active Protocol: Document 01/03/19 16:40 NFW (Rec: 01/03/19 17:45 NFW [id number]) OP-PT Balance Assessment Sitting Balance Static Sitting Balance Ability Normal Dynamic Sitting Balance Ability Normal Standing Balance Static Standing Balance Ability Good Dynamic Standing Balance Ability Good Standing Balance Comments Both good for the first 5 minutes after that time pain in feet, not due to LB. Loera Fall Scale Copyright Permission PT-OP-G Mobility & Gait Start: 01/03/19 16:37 Freq: Status: Active Protocol: Document 01/03/19 16:40 NFW (Rec: 01/03/19 17:45 NFW [id number]) OP Mobility Evaluation Functional Movements Lifting and Carrying Lifting/carrying limited to < 5 lbs. Squats Limited by pain in feet/ankles . Running Assessment Unable OP Gait Assessment Gait Gait Assistance Required: Independent Assistive Devices Assistive Device None Gait Deviations General Gait Pattern Antalgic,Decreased Stride Length Factors Limiting Gait Function Factors Limiting Gait Function Decreased Activity Tolerance, Decreased Strength,Pain Comments Gait Comments Gait is antalgic favoring the right foot and ankle. Patient hold RLE in ER in ambulation. PT-OP-H Neuro Start: 01/03/19 16:37 Freq: Status: Active Protocol: Document 01/03/19 16:40 NFW (Rec: 01/03/19 17:45 NFW [id number]) Sensation Evaluation Gross Sensation Gross Sensation Right LE Impaired Sensation Description Numbness,Tingling,Pins & [place] Dermatome Impairments L5,S1,S2 Deep Tendon Reflex & Clonus Assessment Deep Tendon Reflex Bilateral Achilles Deep Tendon Reflex 1+ Diminished Bilateral Patellar Deep Tendon Reflex 1+ Diminished PT-OP-J Posture/Palpation/Skin Start: 01/03/19 16:37 Freq: Status: Active Protocol: Document 01/03/19 16:40 NFW (Rec: 01/03/19 17:45 NFW [id number]) Posture Evaluation Position Standing Shoulder Posture (R) Forward,(R) Elevated Scapula Posture (L) Neutral,(R) Winged Pelvis Posture (L) Iliac Crest Superior Weight Distribution Weight Shifted Left,Decreased Wt.Bear on (R) Hip Posture (L) Neutral,(R) Neutral Knee Posture (R) Genu Valgus,(L) Genu Recurvatum,(R) Genu Recurvatum Foot Arch (L) No Arch,(R) No Arch Palpation Assessment Location One Palpation Location Lumbar Spine Palpation Details No problems with palpation at and around surgical site. PT-OP-K Range of Motion Start: 01/03/19 16:37 Freq: Status: Active Protocol: Document 01/03/19 16:40 NFW (Rec: 01/03/19 17:45 NFW [id number]) Lumbar Spine Range of Motion Lumbar Spine Active Comments Active ROM not tested due to recent lumbar fusion. Hip Goniometric Range of Motion Hip Right Active Hip ROM WFL Yes Testing Position Supine Straight Leg Raise 50 Left Active Hip ROM WFL Yes Testing Position Supine Straight Leg Raise 50 Hip ROM Limitations Hip ROM Limitations Soft Tissue Tightness Comments Patient has functional ROM but decrease flexibility noted in HS/Gastrocs/hip abductors/hip flexors. PT-OP-L Special Tests Start: 01/03/19 16:37 Freq: Status: Active Protocol: Document 01/03/19 16:40 NFW (Rec: 01/03/19 17:45 NFW [id number]) Special Tests Other Special Tests Special Tests One Legged Balancing - right unable, left 5 seconds PT-OP-M Strength Start: 01/03/19 16:37 Freq: Status: Active Protocol: Document 01/03/19 16:40 NFW (Rec: 01/03/19 17:45 NFW [id number]) Hip Strength Hip Manual Muscle Testing Left Flexion (L2) 4- Good- Extension (S1) 4 Good Abduction 4 Good External Rotation 4 Good Right Flexion (L2) 4- Good- Extension (S1) 4 Good Abduction 4 Good External Rotation 4 Good Knee Strength Knee Manual Muscle Testing Left Flexion (S2) 4 Good Extension (L3) 4 Good Right Flexion (S2) 5 Normal Extension (L3) 5 Normal Ankle/Foot Strength Ankle and Foot Manual Muscle Testing Right Dorsiflexion (L4) 4 Good Plantarflexion (S1) 4 Good Left Dorsiflexion (L4) 4 Good Plantarflexion (S1) 4 Good Toe Strength Toe Manual Muscle Testing Right Great Toe Extension 3 Fair Left Great Toe Extension 4 Good PT-OP-Q Treatments Start: 01/03/19 16:37 Freq: Status: Active Protocol: Document 03/09/19 10:26 [facility] (Rec: 03/09/19 11:13 [facility] [id number]) Cardio Equipment Recumbent Stepper (Sci-Fit) Duration (Minutes) 10 Resistance 2.0 Seat Position 11 Gym Equipment Shuttle Balance 1 Details Static standing and wt shifts Comments fwd/bck balance only for side to side stance Therapeutic Exercises Supine Exercises SKTC Reps/Minutes 2x30 HC stretch Reps/Minutes 2x30 HS stretch Reps/Minutes 2x 30 Comments manual Sitting Exercises HC stretch Reps/Minutes 1x30 Comments closed chain 3 Sitting Exercise Name short foot Reps/Minutes 10x Comments verbal and manual cues Standing Exercises standing short foot Reps/Minutes 5x Gait Training Gait Activity level gait Description Gait training Device Used none Surface level Treatment Focus neutral trunk alignment, core activation, active foot Comments mirror for visual feedback. Improved alignment with additional heel lift segment added. Manual Therapy Treatment Taping for edema reduction, arch support Body Location left foot Type of Tape kinesiotape Comments 1 I strip each foot for arch support PT-OP-R Modalities Start: 01/03/19 16:37 Freq: Status: Active Protocol: Document 03/09/19 10:26 [facility] (Rec: 03/09/19 11:13 [facility] [id number]) Hot Pack/Cold Pack Treatment Hot Pack Location lumbar spine, right groin Patient Position Hooklying Treatment Duration (minutes) 15 Patient Tolerance Good PT-OP-T Assessment and Plan Start: 01/03/19 16:37 Freq: Status: Active Protocol: Document 03/09/19 10:26 [facility] (Rec: 03/09/19 11:13 [facility] [id number]) Physical Therapy Assessment Goals Four Impairment Awareness of proper movement patterns and body mechanics for LB Short Term Goal (STG) Goal achieved 01/19/19 [facility] Goal (LTG) Goal achieved 01/19/19 LTG Duration Goal MET Three Impairment Poor core strength Short Term Goal (STG) Establish abdominal stabilization HEP 02/01/19: continue to progress HEP 02/25/19: goal progress Cpas Goal (LTG) Advance to level II stabilization activities 02/01/19: good goal progress 03/07/19: goal progress LTG Duration 03/30/19 Oswestry disability index score Shelter Goal (LTG) decrease score to no greater than 40% 02/01/19: good goal progress 03/07/19: 26%, GOAL MET LTG Duration GOAL MET Two Impairment Decrease functional activity level Short Term Goal (STG) Improve standing balance on each extremity to 10 seconds. 02/01/19: not tolerated 03/07/19: goal abandoned due to foot pain and dysfunction STG Duration 02/04/19 Shelter Goal (LTG) Increase strength/endurance so that patient can perform light lifting more than 10 pounds, and to vacuum one room at a time. 02/01/19: good goal progress 03/07/19: not lifting greater than 5 lbs at this time. goal progress LTG Duration 03/30/19 One Impairment Weakness into LEs Shelter Goal (LTG) MMT to LE grade 5/5 strength 02/01/19: good goal progress LTG Duration 03/07/19 decreased ROM and strength left foot/ankle Impairment tightness and weakness gloria gastroc Cpas Goal (LTG) Improve gloria foot and ankle ROM and strength to WNL, patient to be independnet with HEP. 02/01/19: good goal progress 03/07/19: has had more pain recently, fit with ankle brace right foot. LTG Duration 03/30/19 pain right foot/ankle Impairment bilateral foot and ankle pain limiting activity Cpas Goal (LTG) Improve pain right foot and ankle sufficient to allow her to increase her walking ability from 2-6 blocks for functional community ambulation 02/01/19: decreased tolerance for weight-bearing activity today. 03/07/19: just obtained new foot brace LTG Duration 03/30/19 Assessment Summary Assessment Improved right foot support with use of new brace, improved alignment with addition of additional heel lift segment left foot. Feel patient may need same type of brace left foot; she is going to contact her physician. Physical Therapy Plan Frequency and Duration Frequency of Treatment 2x/Week Duration of Treatment 4 wks Plan of Care Start Date 03/07/19 Plan of Care End Date 03/30/19 Therapeutic Interventions Therapeutic Interventions Aquatic Therapy,Balance Training,Gait Training,Home Exercise Program,Self-Care/ Home Management,Therapeutic Activities,Therapeutic Exercises Modalities Cold Pack/Ice Massage Next Visit Focus/Plan Next Note Type Treatment Note Next Visit Plan Automatic core engagement exercises all positions, closed chain as tolerated. Assess fit and tolerance for new foot brace right LE as relates to biomechanical function and affect on spinal alignment and pain as well as foot alignment, pain, and function.
--- NOTE | 2019-03-30 16:00 | PT.OPPOC ---
Physical, Occupational & Speech Therapy At Current Diagnoses Disorder of muscle, unspecified (04/12/19) Arthrodesis status (04/12/19) Visit Care Team Role Provider Type Ellie Fountain PA-C Primary Care Provider Advanced Dental Billing Specialist Specialty: Internal Medicine Address: [address] [place] [address], [address] Email: [email or web address] Gerardo Trejo MD Attending Provider Non-Staff Other Providers Specialty: Orthopedic Surgery Address: [address] [place] [address], [id number] Email: Plan Of Care PT-OP-T Assessment and Plan Start: 01/03/19 16:37 Freq: Status: Active Protocol: Document 04/12/19 15:14 [facility] (Rec: 04/12/19 16:03 [facility] [id number]) Physical Therapy Assessment Goals Five Impairment unable to do floor transfer Short Term Goal (STG) Instruct in safe method for floor transfers and do functional strengthening initially on mat table STG Duration 2 wks Library Science Instructor Goal (LTG) Patient will be able to perform floor transfer with SB to min assist safely. LTG Duration 04/30/19 Four Impairment Awareness of proper movement patterns and body mechanics for LB Short Term Goal (STG) Goal achieved 01/19/19 Library Science Instructor Goal (LTG) Goal achieved 01/19/19 LTG Duration Goal MET Three Impairment Poor core strength Short Term Goal (STG) Establish abdominal stabilization HEP 02/01/19: continue to progress HEP 02/25/19: goal progress 03/30/19: goal progress; continued need to modify Senior Care Goal (LTG) Advance to level II stabilization activities 02/01/19: good goal progress 03/07/19: goal progress 03/30/19: goal progress LTG Duration 04/30/19 Oswestry disability index score STG Duration 08/11/18 Senior Care Goal (LTG) decrease score to no greater than 40% 02/01/19: good goal progress 03/07/19: 26%, GOAL MET LTG Duration GOAL MET Two Impairment Decrease functional activity level Short Term Goal (STG) Improve standing balance on each extremity to 10 seconds. 02/01/19: not tolerated 03/07/19: goal abandoned due to foot pain and dysfunction STG Duration goal abandon Library Science Instructor Goal (LTG) Increase strength/endurance so that patient can perform light lifting more than 10 pounds, and to vacuum one room at a time. 02/01/19: good goal progress 03/07/19: not lifting greater than 5 lbs at this time. goal progress 03/30/19: no further progress, not seen since 03/09/19 due to patient vacation, weather and health issue. LTG Duration 04/30/19 One Impairment Weakness into LEs Library Science Instructor Goal (LTG) MMT to LE grade 5/5 strength 02/01/19: good goal progress 03/30/19: goal progress, weakest in gluteals gloria, core musculature, right foot. LTG Duration 04/30/19 decreased ROM and strength left foot/ankle Impairment tightness and weakness gloria gastroc Senior Care Goal (LTG) Improve gloria foot and ankle ROM and strength to WNL, patient to be independnet with HEP. 02/01/19: good goal progress 03/07/19: has had more pain recently, fit with ankle brace right foot. 03/30/19: 4/5 left 4-/5 right LTG Duration 04/30/19 pain right foot/ankle Impairment bilateral foot and ankle pain limiting activity Library Science Instructor Goal (LTG) Improve pain right foot and ankle sufficient to allow her to increase her walking ability from 2-6 blocks for functional community ambulation 02/01/19: decreased tolerance for weight-bearing activity today. 03/07/19: just obtained new foot brace 04/30/19: has not been able to progress, awaiting brace for left foot LTG Duration 04/30/19 Assessment Summary Assessment Pt did well with balance board today and was challenged the most by standing sideways on board. Her feet fatigued with this exercise. seated ball exercises did well for core engagment for pt Physical Therapy Plan Frequency and Duration Plan of Care Start Date 2x/2wk x 12 wks 03/30/19 to 06/29/19 Next Visit Focus/Plan Next Note Type Treatment Note Next Visit Plan Automatic core engagement exercises all positions, closed chain as tolerated for functional strengthening and retraining. Initiate floor transfer training on mat table as tolerated. Electronically Signed by: Julee Gee, PT 04/20/19 0807 Please Sign and Return: I have reviewed this Plan of Care and certify that the skilled therapy services above are required to meet the patient?s needs. Physician Signature Date Printed Name and Credentials Clinical Instructor Signature Printed Name and Credentials
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
--- NOTE | 2019-04-02 10:28 | PT.OPPOC ---
Physical, Occupational & Speech Therapy At [facility] Current Diagnoses Disorder of muscle, unspecified (03/30/19) Arthrodesis status (03/30/19) Visit Care Team Role Provider Type Ellie Fountain PA-C Primary Care Provider Advanced Asic Engineer Specialty: Internal Medicine Address: [address] [place] [address], [address] Email: [email or web address] Gerardo Trejo MD Other Providers Non-Staff Specialty: Orthopedic Surgery Address: [address] [place] [address], [facility] Email: Joaquin Marroquin MD Attending Provider Non-Staff Specialty: Medical Address: [address] [place] [address] Email: Plan Of Care PT-OP-T Assessment and Plan Start: 01/03/19 16:37 Freq: Status: Active Protocol: Document 03/30/19 14:27 SAK (Rec: 03/30/19 16:07 SAK [id number]) Physical Therapy Assessment Goals Five Impairment unable to do floor transfer Short Term Goal (STG) Instruct in safe method for floor transfers and do functional strengthening initially on mat table STG Duration 2 wks Usp Goal (LTG) Patient will be able to perform floor transfer with SB to min assist safely. LTG Duration 04/30/19 Four Impairment Awareness of proper movement patterns and body mechanics for LB Short Term Goal (STG) Goal achieved 01/19/19 Traffic Division Commanding Officer Goal (LTG) Goal achieved 01/19/19 LTG Duration Goal MET Three Impairment Poor core strength Short Term Goal (STG) Establish abdominal stabilization HEP 02/01/19: continue to progress HEP 02/25/19: goal progress 03/30/19: goal progress; continued need to modify Traffic Division Commanding Officer Goal (LTG) Advance to level II stabilization activities 02/01/19: good goal progress 03/07/19: goal progress 03/30/19: goal progress LTG Duration 04/30/19 Oswestry disability index score STG Duration 08/11/18 Usp Goal (LTG) decrease score to no greater than 40% 02/01/19: good goal progress 03/07/19: 26%, GOAL MET LTG Duration GOAL MET Two Impairment Decrease functional activity level Short Term Goal (STG) Improve standing balance on each extremity to 10 seconds. 02/01/19: not tolerated 03/07/19: goal abandoned due to foot pain and dysfunction STG Duration goal abandon Usp Goal (LTG) Increase strength/endurance so that patient can perform light lifting more than 10 pounds, and to vacuum one room at a time. 02/01/19: good goal progress 03/07/19: not lifting greater than 5 lbs at this time. goal progress 03/30/19: no further progress, not seen since 03/09/19 due to patient vacation, weather and health issue. LTG Duration 04/30/19 One Impairment Weakness into LEs Usp Goal (LTG) MMT to LE grade 5/5 strength 02/01/19: good goal progress 03/30/19: goal progress, weakest in gluteals gloria, core musculature, right foot. LTG Duration 04/30/19 decreased ROM and strength left foot/ankle Impairment tightness and weakness gloria gastroc Usp Goal (LTG) Improve gloria foot and ankle ROM and strength to WNL, patient to be independnet with HEP. 02/01/19: good goal progress 03/07/19: has had more pain recently, fit with ankle brace right foot. 03/30/19: 4/5 left 4-/5 right LTG Duration 04/30/19 pain right foot/ankle Impairment bilateral foot and ankle pain limiting activity Usp Goal (LTG) Improve pain right foot and ankle sufficient to allow her to increase her walking ability from 2-6 blocks for functional community ambulation 02/01/19: decreased tolerance for weight-bearing activity today. 03/07/19: just obtained new foot brace 04/30/19: has not been able to progress, awaiting brace for left foot LTG Duration 04/30/19 Assessment Summary Assessment Patient has made good progress in decreasing back pain, and improving LE strength though still has some significant limitations and would benefit from further PT to address her above goals and return to being more active, safe, and independent. Physical Therapy Plan Frequency and Duration Frequency of Treatment 2x/Week Duration of Treatment 4 wks Plan of Care Start Date 03/07/19 Plan of Care End Date 03/30/19 Therapeutic Interventions Therapeutic Interventions Aquatic Therapy,Balance Training,Gait Training,Home Exercise Program,Self-Care/ Home Management,Therapeutic Activities,Therapeutic Exercises Modalities Cold Pack/Ice Massage Next Visit Focus/Plan Next Note Type Treatment Note Next Visit Plan Automatic core engagement exercises all positions, closed chain as tolerated for functional strengthening and retraining. Initiate floor transfer training on mat table as tolerated. Plan of Care Dates Plan of Care Start Date 03/07/19 Plan of Care End Date 03/30/19 Electronically Signed by: Julee Gee, PT 04/02/19 [id number] Please Sign and Return: I have reviewed this Plan of Care and certify that the skilled therapy services above are required to meet the patient?s needs. Physician Signature Date Printed Name and Credentials Clinical Instructor Signature Printed Name and Credentials
--- NOTE | 2019-04-12 16:03 | PT.OTN ---
Current Diagnoses Disorder of muscle, unspecified (04/12/19) Arthrodesis status (04/12/19) Physical Therapy Treatment Note PT-OP-A Visit Information Start: 01/03/19 16:37 Freq: Status: Active Protocol: Document 04/12/19 15:14 [facility] (Rec: 04/12/19 16:03 [facility] [id number]) Out-Patient Physical Therapy Visit Information Visit Information Visit Type Treatment Note Visit Start Time 15:12 Visit Stop Time 16:11 Total Visit Minutes 59 Visit Number 19 Number of TRUCK HOP Visits 0 PT-OP-B Current Condition Start: 01/03/19 16:37 Freq: Status: Active Protocol: Document 01/03/19 16:40 [facility] (Rec: 01/03/19 17:45 [facility] [id number]) Current Condition History of Current Condition Onset Date 10/10/18 Current Complaints Weak with decrease balance, low functional activity level. History of Current Condition Patient had lumbar fusion . Had secondary edema and blood clots requiring debridment on 10/26/18 and now doing very well. Future Testing and Treatments Planned 01/18/19 CAT scan left foot - to assess possibility of removing screws from talonavicular fusion performed 02/22 Treatment Goals Patient/Caregiver Goals Regain core and LE strength. Would like to be able to return to extracurricular activities of gardening, cleaning her home and increasing her walking time. Weightbearing tolerance limited by pain in ankles. May need screws removed from left ankle and possible may need talonavicular fusion on right ankle. Prior Functional Status Baseline Function- ADL's Modified Independent Baseline Function- Mobility Modified Independent Current Functional Impairments (Reported) Functional Limitations- ADL's None Functional Limitations- Mobility/Gait Walking limited to maximum of one block due to ankles/feet. Functional Limitations- Work/School Retired. 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 Patient was placed on minimal activities by surgeon. Functional Limitations- Recreation/ Has not been able to resume Hobbies any gardening activities. PT-OP-C Subjective Start: 01/03/19 16:37 Freq: Status: Active Protocol: Document 04/12/19 15:14 [facility] (Rec: 04/12/19 16:03 [facility] [id number]) OP-PT Subjective Patient Comments Patient Comments Pt notes her feet are what bother her the most. Notes that she has difficulty walking d/t feet. Reports she is frustrated with her foot. PT-OP-D Balance Start: 01/03/19 16:37 Freq: Status: Active Protocol: Document 01/03/19 16:40 NFW (Rec: 01/03/19 17:45 [facility] [id number]) OP-PT Balance Assessment Sitting Balance Static Sitting Balance Ability Normal Dynamic Sitting Balance Ability Normal Standing Balance Static Standing Balance Ability Good Dynamic Standing Balance Ability Good Standing Balance Comments Both good for the first 5 minutes after that time pain in feet, not due to LB. Loera Fall Scale Copyright Permission PT-OP-G Mobility & Gait Start: 01/03/19 16:37 Freq: Status: Active Protocol: Document 01/03/19 16:40 [facility] (Rec: 01/03/19 17:45 [facility] [id number]) OP Mobility Evaluation Functional Movements Lifting and Carrying Lifting/carrying limited to < 5 lbs. Squats Limited by pain in feet/ankles . Running Assessment Unable OP Gait Assessment Gait Gait Assistance Required: Independent Assistive Devices Assistive Device None Gait Deviations General Gait Pattern Antalgic,Decreased Stride Length Factors Limiting Gait Function Factors Limiting Gait Function Decreased Activity Tolerance, Decreased Strength,Pain Comments Gait Comments Gait is antalgic favoring the right foot and ankle. Patient hold RLE in ER in ambulation. PT-OP-H Neuro Start: 01/03/19 16:37 Freq: Status: Active Protocol: Document 01/03/19 16:40 [facility] (Rec: 01/03/19 17:45 [facility] [id number]) Sensation Evaluation Gross Sensation Gross Sensation Right LE Impaired Sensation Description Numbness,Tingling,Pins & Jameson Dermatome Impairments L5,S1,S2 Deep Tendon Reflex & Clonus Assessment Deep Tendon Reflex Bilateral Achilles Deep Tendon Reflex 1+ Diminished Bilateral Patellar Deep Tendon Reflex 1+ Diminished PT-OP-J Posture/Palpation/Skin Start: 01/03/19 16:37 Freq: Status: Active Protocol: Document 01/03/19 16:40 NFW (Rec: 01/03/19 17:45 [facility] [id number]) Posture Evaluation Position Standing Shoulder Posture (R) Forward,(R) Elevated Scapula Posture (L) Neutral,(R) Winged Pelvis Posture (L) Iliac Crest Superior Weight Distribution Weight Shifted Left,Decreased Wt.Bear on (R) Hip Posture (L) Neutral,(R) Neutral Knee Posture (R) Genu Valgus,(L) Genu Recurvatum,(R) Genu Recurvatum Foot Arch (L) No Arch,(R) No Arch Palpation Assessment Location One Palpation Location Lumbar Spine Palpation Details No problems with palpation at and around surgical site. PT-OP-K Range of Motion Start: 01/03/19 16:37 Freq: Status: Active Protocol: Document 01/03/19 16:40 NFW (Rec: 01/03/19 17:45 [facility] [id number]) Lumbar Spine Range of Motion Lumbar Spine Active Comments Active ROM not tested due to recent lumbar fusion. Hip Goniometric Range of Motion Hip Right Active Hip ROM WFL Yes Testing Position Supine Straight Leg Raise 50 Left Active Hip ROM WFL Yes Testing Position Supine Straight Leg Raise 50 Hip ROM Limitations Hip ROM Limitations Soft Tissue Tightness Comments Patient has functional ROM but decrease flexibility noted in HS/Gastrocs/hip abductors/hip flexors. PT-OP-L Special Tests Start: 01/03/19 16:37 Freq: Status: Active Protocol: Document 01/03/19 16:40 NFW (Rec: 01/03/19 17:45 NFW [id number]) Special Tests Other Special Tests Special Tests One Legged Balancing - right unable, left 5 seconds PT-OP-M Strength Start: 01/03/19 16:37 Freq: Status: Active Protocol: Document 01/03/19 16:40 NFW (Rec: 01/03/19 17:45 NFW [id number]) Hip Strength Hip Manual Muscle Testing Left Flexion (L2) 4- Good- Extension (S1) 4 Good Abduction 4 Good External Rotation 4 Good Right Flexion (L2) 4- Good- Extension (S1) 4 Good Abduction 4 Good External Rotation 4 Good Knee Strength Knee Manual Muscle Testing Left Flexion (S2) 4 Good Extension (L3) 4 Good Right Flexion (S2) 5 Normal Extension (L3) 5 Normal Ankle/Foot Strength Ankle and Foot Manual Muscle Testing Right Dorsiflexion (L4) 4 Good Plantarflexion (S1) 4 Good Left Dorsiflexion (L4) 4 Good Plantarflexion (S1) 4 Good Toe Strength Toe Manual Muscle Testing Right Great Toe Extension 3 Fair Left Great Toe Extension 4 Good PT-OP-Q Treatments Start: 01/03/19 16:37 Freq: Status: Active Protocol: Document 04/12/19 15:14 [facility] (Rec: 04/12/19 16:03 [facility] [id number]) Cardio Equipment Recumbent Stepper (Sci-Fit) Duration (Minutes) 10 Resistance 2.0 Seat Position 11 Gym Equipment Shuttle Balance 1 Details Static standing EO and EC Reps/Duration WBOS & NBOS fwd & back Comments fwd: staggered stance B chains blue CG to min assist Therapeutic Ball seated Exercise Details marches, circles B Ball Size/Color 65cm Body Position seated Reps/Duration 15 ea Manual Therapy Treatment Soft Tissue Mobilization 3 Body Location plantar fascia B Mobilization Type Rolling Joint Mobilizations foot/ankle Grade II Comments 1. calcaneal distraction B 2. talar distraction B Neuro Re-Education Treatment Balance Activities foam stand Comments staggered stand on green tpads then blue tpads. Pt able to test dyandsic and black tpad but too difficult PT-OP-R Modalities Start: 01/03/19 16:37 Freq: Status: Active Protocol: Document 04/12/19 15:14 [facility] (Rec: 04/12/19 16:03 [facility] [id number]) Hot Pack/Cold Pack Treatment Cold Pack Location cryocuff B Patient Position Hooklying Treatment Duration (minutes) 14 Comments 7 min ea foot PT-OP-T Assessment and Plan Start: 01/03/19 16:37 Freq: Status: Active Protocol: Document 04/12/19 15:14 [facility] (Rec: 04/12/19 16:03 [facility] [id number]) Physical Therapy Assessment Goals Five Impairment unable to do floor transfer Short Term Goal (STG) Instruct in safe method for floor transfers and do functional strengthening initially on mat table STG Duration 2 wks Slag Worker Goal (LTG) Patient will be able to perform floor transfer with SB to min assist safely. LTG Duration 04/30/19 Four Impairment Awareness of proper movement patterns and body mechanics for LB Short Term Goal (STG) Goal achieved 01/19/19 Slag Worker Goal (LTG) Goal achieved 01/19/19 LTG Duration Goal MET Three Impairment Poor core strength Short Term Goal (STG) Establish abdominal stabilization HEP 02/01/19: continue to progress HEP 02/25/19: goal progress 03/30/19: goal progress; continued need to modify Shelter Goal (LTG) Advance to level II stabilization activities 02/01/19: good goal progress 03/07/19: goal progress 03/30/19: goal progress LTG Duration 04/30/19 Oswestry disability index score STG Duration 08/11/18 Slag Worker Goal (LTG) decrease score to no greater than 40% 02/01/19: good goal progress 03/07/19: 26%, GOAL MET LTG Duration GOAL MET Two Impairment Decrease functional activity level Short Term Goal (STG) Improve standing balance on each extremity to 10 seconds. 02/01/19: not tolerated 03/07/19: goal abandoned due to foot pain and dysfunction STG Duration goal abandon Shelter Goal (LTG) Increase strength/endurance so that patient can perform light lifting more than 10 pounds, and to vacuum one room at a time. 02/01/19: good goal progress 03/07/19: not lifting greater than 5 lbs at this time. goal progress 03/30/19: no further progress, not seen since 03/09/19 due to patient vacation, weather and health issue. LTG Duration 04/30/19 One Impairment Weakness into LEs Shelter Goal (LTG) MMT to LE grade 5/5 strength 02/01/19: good goal progress 03/30/19: goal progress, weakest in gluteals gloria, core musculature, right foot. LTG Duration 04/30/19 decreased ROM and strength left foot/ankle Impairment tightness and weakness gloria gastroc Shelter Goal (LTG) Improve gloria foot and ankle ROM and strength to WNL, patient to be independnet with HEP. 02/01/19: good goal progress 03/07/19: has had more pain recently, fit with ankle brace right foot. 03/30/19: 4/5 left 4-/5 right LTG Duration 04/30/19 pain right foot/ankle Impairment bilateral foot and ankle pain limiting activity Shelter Goal (LTG) Improve pain right foot and ankle sufficient to allow her to increase her walking ability from 2-6 blocks for functional community ambulation 02/01/19: decreased tolerance for weight-bearing activity today. 03/07/19: just obtained new foot brace 04/30/19: has not been able to progress, awaiting brace for left foot LTG Duration 04/30/19 Assessment Summary Assessment Pt did well with balance board today and was challenged the most by standing sideways on board. Her feet fatigued with this exercise. seated ball exercises did well for core engagment for pt Physical Therapy Plan Frequency and Duration Plan of Care Start Date 04/02/19 Next Visit Focus/Plan Next Note Type Treatment Note Next Visit Plan Automatic core engagement exercises all positions, closed chain as tolerated for functional strengthening and retraining. Initiate floor transfer training on mat table as tolerated.
--- NOTE | 2019-04-27 16:58 | PT.OTRE ---
Current Diagnoses Disorder of muscle, unspecified (04/27/19) Arthrodesis status (04/27/19) Visit Care Team Role Provider Type Ellie Fountain PA-C Primary Care Provider Advanced Food Services Manager Specialty: Internal Medicine Address: [address] [place] [address], [id number] Email: [email or web address] Gerardo Trejo MD Attending Provider Non-Staff Other Providers Specialty: Orthopedic Surgery Address: [address] [place] [address], [id number] Email: Physical Therapy Re-Evaluation PT-OP-A Visit Information Start: 01/03/19 16:37 Freq: Status: Active Protocol: Document 04/27/19 10:34 SAK (Rec: 04/27/19 11:16 SAK [id number]) Out-Patient Physical Therapy Visit Information Visit Information Visit Type Treatment Note Visit Start Time 10:30 Visit Stop Time 11:25 Total Visit Minutes 55 Visit Number 20 Number of NEON SIGN ERECTOR Visits 0 Precautions Precautions history of back pain with lumbar surgery, bilateral shoulder pain with surgery, bilateral foot pain with surgery. PT-OP-B Current Condition Start: 01/03/19 16:37 Freq: Status: Active Protocol: Document 01/03/19 16:40 NFW (Rec: 01/03/19 17:45 NFW [id number]) Current Condition History of Current Condition Onset Date 10/10/18 Current Complaints Weak with decrease balance, low functional activity level. History of Current Condition Patient had lumbar fusion . Had secondary edema and blood clots requiring debridment on 10/26/18 and now doing very well. Future Testing and Treatments Planned 01/18/19 CAT scan left foot - to assess possibility of removing screws from talonavicular fusion performed 02/22 Treatment Goals Patient/Caregiver Goals Regain core and LE strength. Would like to be able to return to extracurricular activities of gardening, cleaning her home and increasing her walking time. Weightbearing tolerance limited by pain in ankles. May need screws removed from left ankle and possible may need talonavicular fusion on right ankle. Prior Functional Status Baseline Function- ADL's Modified Independent Baseline Function- Mobility Modified Independent Current Functional Impairments (Reported) Functional Limitations- ADL's None Functional Limitations- Mobility/Gait Walking limited to maximum of one block due to ankles/feet. Functional Limitations- Work/School Retired. 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 Patient was placed on minimal activities by surgeon. Functional Limitations- Recreation/ Has not been able to resume Hobbies any gardening activities. PT-OP-C Subjective Start: 01/03/19 16:37 Freq: Status: Active Protocol: Document 04/27/19 10:34 SAK (Rec: 04/27/19 11:16 SAK [id number]) OP-PT Subjective Patient Comments Patient Comments Now cleared from back surgeon for full activity s/p 6 months . Returns for follow-up in 3 months. Just obtained new brace for left foot, working on wearing schedule, forgot to wear today. Recent colonoscopy showed lymphostatic colitis. Shoe Trimmer put her on increased dose of steroids 10 mg x 5 days, now tapering, sees again May 16, also sees foot surgeon 05/17/19. Went to pool yesterday, used recumbant elliptical and 2 hip wt machines. States feet hurting a lot recently. Feet hurt worse after use of shuttle balance last PT session. Wants to discuss POC, agreeable to hold PT after today's treatment until after sees onshore diver. PT-OP-D Balance Start: 01/03/19 16:37 Freq: Status: Active Protocol: Document 01/03/19 16:40 NFW (Rec: 01/03/19 17:45 NFW [id number]) OP-PT Balance Assessment Sitting Balance Static Sitting Balance Ability Normal Dynamic Sitting Balance Ability Normal Standing Balance Static Standing Balance Ability Good Dynamic Standing Balance Ability Good Standing Balance Comments Both good for the first 5 minutes after that time pain in feet, not due to LB. Evaristo Fall Scale Copyright Permission Evaristo VALLEJO, Evaristo RM, Jason SJ. Development of a scale to identify the fall- prone patient. Can J Aging 1989;8;366-7. Cristian Loera (2009). Preventing patient falls. (2nd ed). [place]: Mg. PT-OP-G Mobility & Gait Start: 01/03/19 16:37 Freq: Status: Active Protocol: Document 01/03/19 16:40 NFW (Rec: 01/03/19 17:45 NFW [id number]) OP Mobility Evaluation Functional Movements Lifting and Carrying Lifting/carrying limited to < 5 lbs. Squats Limited by pain in feet/ankles . Running Assessment Unable OP Gait Assessment Gait Gait Assistance Required: Independent Assistive Devices Assistive Device None Gait Deviations General Gait Pattern Antalgic,Decreased Stride Length Factors Limiting Gait Function Factors Limiting Gait Function Decreased Activity Tolerance, Decreased Strength,Pain Comments Gait Comments Gait is antalgic favoring the right foot and ankle. Patient hold RLE in ER in ambulation. PT-OP-H Neuro Start: 01/03/19 16:37 Freq: Status: Active Protocol: Document 01/03/19 16:40 NFW (Rec: 01/03/19 17:45 NFW [id number]) Sensation Evaluation Gross Sensation Gross Sensation Right LE Impaired Sensation Description Numbness,Tingling,[place] Dermatome Impairments L5,S1,S2 Deep Tendon Reflex & Clonus Assessment Deep Tendon Reflex Bilateral Achilles Deep Tendon Reflex 1+ Diminished Bilateral Patellar Deep Tendon Reflex 1+ Diminished PT-OP-J Posture/Palpation/Skin Start: 01/03/19 16:37 Freq: Status: Active Protocol: Document 01/03/19 16:40 NFW (Rec: 01/03/19 17:45 NFW [id number]) Posture Evaluation Position Standing Shoulder Posture (R) Forward,(R) Elevated Scapula Posture (L) Neutral,(R) Winged Pelvis Posture (L) Iliac Crest Superior Weight Distribution Weight Shifted Left,Decreased Wt.Bear on (R) Hip Posture (L) Neutral,(R) Neutral Knee Posture (R) Genu Valgus,(L) Genu Recurvatum,(R) Genu Recurvatum Foot Arch (L) No Arch,(R) No Arch Palpation Assessment Location One Palpation Location Lumbar Spine Palpation Details No problems with palpation at and around surgical site. PT-OP-K Range of Motion Start: 01/03/19 16:37 Freq: Status: Active Protocol: Document 01/03/19 16:40 NFW (Rec: 01/03/19 17:45 NFW [id number]) Lumbar Spine Range of Motion Lumbar Spine Active Comments Active ROM not tested due to recent lumbar fusion. Hip Goniometric Range of Motion Hip Measured in Degrees Right Active Hip ROM WFL Yes Testing Position Supine Straight Leg Raise 50 Left Active Hip ROM WFL Yes Testing Position Supine Straight Leg Raise 50 Hip ROM Limitations Hip ROM Limitations Soft Tissue Tightness Comments Patient has functional ROM but decrease flexibility noted in HS/Gastrocs/hip abductors/hip flexors. PT-OP-L Special Tests Start: 01/03/19 16:37 Freq: Status: Active Protocol: Document 01/03/19 16:40 NFW (Rec: 01/03/19 17:45 NFW [id number]) Special Tests Other Special Tests Special Tests One Legged Balancing - right unable, left 5 seconds PT-OP-M Strength Start: 01/03/19 16:37 Freq: Status: Active Protocol: Document 01/03/19 16:40 NFW (Rec: 01/03/19 17:45 NFW [id number]) Hip Strength Hip Manual Muscle Testing Left Flexion (L2) 4- Good- Extension (S1) 4 Good Abduction 4 Good External Rotation 4 Good Right Flexion (L2) 4- Good- Extension (S1) 4 Good Abduction 4 Good External Rotation 4 Good Knee Strength Knee Manual Muscle Testing Left Flexion (S2) 4 Good Extension (L3) 4 Good Right Flexion (S2) 5 Normal Extension (L3) 5 Normal Ankle/Foot Strength Ankle and Foot Manual Muscle Testing Right Dorsiflexion (L4) 4 Good Plantarflexion (S1) 4 Good Left Dorsiflexion (L4) 4 Good Plantarflexion (S1) 4 Good Toe Strength Toe Manual Muscle Testing Right Great Toe Extension 3 Fair Left Great Toe Extension 4 Good PT-OP-Q Treatments Start: 01/03/19 16:37 Freq: Status: Active Protocol: Document 04/27/19 10:34 SAK (Rec: 04/27/19 11:16 SAK [id number]) Cardio Equipment Recumbent Stepper (Sci-Fit) Duration (Minutes) 10 Resistance 2.0 Seat Position 11 Gym Equipment Cable Column (Body Solid) knee flexion Resistance 20 Reps/Time 10x2 knee extension Resistance 10 Reps/Time 10x2 Shuttle Balance 1 Comments not done due to pain last session Therapeutic Exercises Standing Exercises tricep ext Resistance L2 TB Reps/Minutes 10x Manual Therapy Treatment Manual Techniques right foot, ankle calf Type STM Comments emphasis on posterior tibialis , arch 2 Type STM Body Location left foot, arch Self-Care/Home Management Treatment Education Patient Education Home Exercise Program Other Education updated written handout reviewed use of ball or frozen water bottle for massage of bilateral arches PT-OP-R Modalities Start: 01/03/19 16:37 Freq: Status: Active Protocol: Document 04/27/19 10:34 SAK (Rec: 04/27/19 11:16 SAK [id number]) Hot Pack/Cold Pack Treatment Cold Pack Location cryocuff B Patient Position Hooklying Treatment Duration (minutes) 14 Comments 7 min ea foot PT-OP-T Assessment and Plan Start: 01/03/19 16:37 Freq: Status: Active Protocol: Document 04/27/19 10:34 SAK (Rec: 04/27/19 11:16 SAK [id number]) Physical Therapy Assessment Goals Five Impairment unable to do floor transfer Short Term Goal (STG) Instruct in safe method for floor transfers and do functional strengthening initially on mat table STG Duration 2 wks Plaster Form Maker Goal (LTG) Patient will be able to perform floor transfer with SB to min assist safely. 04/27/19: not attempted this date due to foot pain LTG Duration 06/06/19 Four Impairment Awareness of proper movement patterns and body mechanics for LB Short Term Goal (STG) Goal achieved 01/19/19 Plaster Form Maker Goal (LTG) Goal achieved 01/19/19 LTG Duration Goal MET Three Impairment Poor core strength Short Term Goal (STG) Establish abdominal stabilization HEP 02/01/19: continue to progress HEP 02/25/19: goal progress 03/30/19: goal progress; continued need to modify 04/27/19: goal met Halfway Goal (LTG) Advance to level II stabilization activities 02/01/19: good goal progress 03/07/19: goal progress 03/30/19: goal progress 04/27/19: good goal progress LTG Duration 06/06/19 Oswestry disability index score STG Duration 08/11/18 Halfway Goal (LTG) decrease score to no greater than 40% 02/01/19: good goal progress 03/07/19: 26%, GOAL MET LTG Duration GOAL MET Two Impairment Decrease functional activity level Short Term Goal (STG) Improve standing balance on each extremity to 10 seconds. 02/01/19: not tolerated 03/07/19: goal abandoned due to foot pain and dysfunction STG Duration goal abandon Halfway Goal (LTG) Increase strength/endurance so that patient can perform light lifting more than 10 pounds, and to vacuum one room at a time. 02/01/19: good goal progress 03/07/19: not lifting greater than 5 lbs at this time. goal progress 03/30/19: no further progress, not seen since 03/09/19 due to patient vacation, weather and health issue. 04/27/19: still limited, not due to back pain but more recently due to left foot pain LTG Duration 06/06/19 One Impairment Weakness into LEs Plaster Form Maker Goal (LTG) MMT to LE grade 5/5 strength 02/01/19: good goal progress 03/30/19: goal progress, weakest in gluteals gloria, core musculature, right foot. 04/27/19: goal progress, limited by foot pain LTG Duration 06/06/19 decreased ROM and strength left foot/ankle Impairment tightness and weakness gloria gastroc Halfway Goal (LTG) Improve gloria foot and ankle ROM and strength to WNL, patient to be independnet with HEP. 02/01/19: good goal progress 03/07/19: has had more pain recently, fit with ankle brace right foot. 04/27/19: now has new ankle brace left. exercise and activity limited by bilateral foot pain. 03/30/19: 4/5 left 4-/5 right LTG Duration 06/06/19 pain right foot/ankle Impairment bilateral foot and ankle pain limiting activity Plaster Form Maker Goal (LTG) Improve pain right foot and ankle sufficient to allow her to increase her walking ability from 2-6 blocks for functional community ambulation 02/01/19: decreased tolerance for weight-bearing activity today. 03/07/19: just obtained new foot brace, working on increasing wear time 04/27/19: has not been able to progress, but just obtained left foot brace LTG Duration 06/06/19 Assessment Summary Assessment Patient denies significant LBP , has healed well from surgery , continues to progress with core exercises, is independent with aquatic exercise program . She is most limited at this time by bilateral foot pain, wears brace on right foot, just obtained one for left and is working on increasing her wear time. We discussed holding PT at this time until she is able to increase the wear time with left foot brace and follow up with her foot surgeon. Physical Therapy Plan Frequency and Duration Frequency of Treatment 2x/Week Duration of Treatment 6 wks Plan of Care Start Date 04/27/19 Plan of Care End Date 06/06/19 Next Visit Focus/Plan Next Note Type Treatment Note Next Visit Plan Automatic core engagement exercises all positions, closed chain as tolerated for functional strengthening and retraining. Initiate floor transfer training on mat table as tolerated. Progress to independent [facility] for long-term fitness.
== END 2020-02-15 15:00 | disposition home or self-care (01) ==
LOC: PHYS 10:30
PROVIDERS: PCP Physician Assistant; Visit Provider Orthopaedic Surgery
DX: Z98.1 Arthrodesis status (principal); M62.9 Disorder of muscle, unspecified
CPT/HCPCS: 97010; 97026; 97110; 97112; 97116; 97140; 97162; 97530; 97535

== ENCOUNTER → 2019-05-04 13:42 | Outpatient (CLI) | payer MEDICARE, OTHER, SELFPAY | PROVIDERS: PCP Physician Assistant; Referring Provider Physician Assistant; Visit Provider Physician Assistant | DX: Z78.0 Asymptomatic menopausal state (principal); M06.9 Rheumatoid arthritis, unspecified; Z79.52 Long term (current) use of systemic steroids | CPT/HCPCS: 77080 ==

== ENCOUNTER → 2019-07-20 08:22 | Outpatient (CLI) | payer MEDICARE, OTHER, SELFPAY ==
[2019-07-20 10:43] LABS: Cholesterol 203 mg/dL (140-199); HDL Cholesterol 81 mg/dL (40-60); LDL Cholesterol Calculated 83 mg/dL (<100); Triglycerides 194 mg/dL (35-150)
== END ==
PROVIDERS: PCP Physician Assistant; Referring Provider Physician Assistant; Visit Provider Physician Assistant
DX: E78.5 Hyperlipidemia, unspecified (principal)
CPT/HCPCS: 80061

== ENCOUNTER → 2019-07-20 08:29 | Outpatient (CLI) | payer MEDICARE, OTHER, SELFPAY ==
[2019-07-20 09:18] LABS: Add Manual Diff / Slide Review NO; Basophils Absolute Auto 0 /uL (0-100); Basophils Percent Auto 0.7 % (0-2); Eosinophils Absolute Auto 100 /uL (0-450); Eosinophils Percent Auto 2.8 % (2-4); Hematocrit 40.3 % (36-46); Hemoglobin 13.4 g/dL (12.0-16.0); Lymphocytes Absolute Auto 1300 /uL (1100-4500); Lymphocytes Percent Auto 36.6 % (25-40); Mean Corpuscular HGB Conc 33.3 % (30-36); Mean Corpuscular Hemoglobin 30.5 PG (26-34); Mean Corpuscular Volume 91.7 fL (80-100); Monocytes Absolute Auto 400 /uL (0-900); Monocytes Percent Auto 10.2 % (3-14); Neutrophils Absolute Auto 1800 /uL (1500-7000); Neutrophils Percent Auto 49.7 % (50-75); Platelet Count 196 X10^3/uL (150-400); Red Cell Distribution Width 14.2 % (11.6-14.8); White Blood Cell Count 3.6 X10^3/uL (4.5-11.0)
[2019-07-20 09:37] LABS: Alanine Aminotransferase 28 IU/L (<35); Albumin 4.1 g/dL (3.5-5.0); Albumin Globulin Ratio 1.6 (1.0-2.8); Alkaline Phosphatase 43 U/L (38-126); Aspartate Aminotransferase 29 IU/L (14-36); Bilirubin Total 0.5 mg/dL (0.2-1.3); Bilirubin Unconjugated 0.5 mg/dL (0.0-1.1); Estimated Glomerular Filt Rate > 60.0 mL/min (>60); Globulin 2.6 g/dL (1.7-4.1); HEMOLYSIS < 15 (0-50); Total Protein 6.7 g/dL (6.3-8.2)
== END ==
PROVIDERS: PCP Physician Assistant; Referring Provider Internal Medicine Rheumatology; Visit Provider Internal Medicine Rheumatology
DX: M06.00 Rheumatoid arthritis without rheumatoid factor, unspecified site (principal); E78.5 Hyperlipidemia, unspecified; Z79.899 Other long term (current) drug therapy
CPT/HCPCS: 36415; 80061; 80076; 82565; 85025

== ENCOUNTER → 2019-08-11 10:31 | Outpatient (CLI) | payer MEDICARE, OTHER, SELFPAY ==
--- NOTE | 2019-08-11 | DI.RAD.S_ITS ---
PROCEDURE: XR LUMBAR SPINE MIN 4V INDICATIONS: Arthrodesis status post operative 10/24 TECHNIQUE: 5 views of the lumbar spine acquired. COMPARISON: [facility], CR, XR LUMBAR SPINE 2-3V, 10/16/2018, 8:40. FINDINGS: Bones: No fracture or focal osseous destruction. Posterior spinal fixation from L4-S1. Interbody cage grafts also noted. Hardware appears intact. Expected postoperative alignment. Multilevel degenerative endplate sclerosis and spurring. Diffuse facet arthropathy. Grade 1 anterolisthesis of L3 on L4. This measures approximately 2-3 mm on neutral and extended lateral views, and up to 6 mm on flexion lateral views. Scoliosis is partially visualized Soft tissues: Overlying bowel gas pattern is normal. No suspicious soft tissue calcifications. IMPRESSION: Grade 1 anterolisthesis of L3 on L4, with radiographic appearance that suggests instability as discussed above. Dictated by: Shailesh Headley M.D. on 08/11/2019 at 15:38 Approved by: Shailesh Headley M.D. on 08/11/2019 at 15:46
== END ==
PROVIDERS: PCP Physician Assistant; Referring Provider Physician Assistant; Visit Provider Physician Assistant
DX: M43.16 Spondylolisthesis, lumbar region (principal); M47.816 Spondylosis without myelopathy or radiculopathy, lumbar region; M47.817 Spondylosis without myelopathy or radiculopathy, lumbosacral region; Z98.1 Arthrodesis status
CPT/HCPCS: 72110

== ENCOUNTER → 2019-09-28 09:23 | Outpatient (CLI) | payer MEDICARE, OTHER, SELFPAY ==
[2019-09-28 10:24] LABS: Add Manual Diff / Slide Review NO; Basophils Absolute Auto 0 /uL (0-100); Basophils Percent Auto 1.1 % (0-2); Eosinophils Absolute Auto 200 /uL (0-450); Eosinophils Percent Auto 4.2 % (2-4); Hematocrit 39.6 % (36-46); Hemoglobin 13.1 g/dL (12.0-16.0); Lymphocytes Absolute Auto 1000 /uL (1100-4500); Lymphocytes Percent Auto 27.9 % (25-40); Mean Corpuscular Hemoglobin 30.6 PG (26-34); Mean Corpuscular Volume 92.6 fL (80-100); Monocytes Absolute Auto 700 /uL (0-900); Monocytes Percent Auto 18.3 % (3-14); Neutrophils Absolute Auto 1800 /uL (1500-7000); Neutrophils Percent Auto 48.5 % (50-75); Platelet Count 209 X10^3/uL (150-400); Red Blood Cell Count 4.27 X10^6/uL (4.0-5.2); Red Cell Distribution Width 13.8 % (11.6-14.8); White Blood Cell Count 3.6 X10^3/uL (4.5-11.0)
[2019-09-28 10:25] LABS: Alanine Aminotransferase 35 IU/L (<35); Albumin Globulin Ratio 1.8 (1.0-2.8); Alkaline Phosphatase 52 U/L (38-126); Aspartate Aminotransferase 32 IU/L (14-36); Bilirubin Total 0.7 mg/dL (0.2-1.3); Bilirubin Unconjugated 0.5 mg/dL (0.0-1.1); Estimated Glomerular Filt Rate > 60.0 mL/min (>60); Globulin 2.2 g/dL (1.7-4.1); HEMOLYSIS < 15 (0-50); Total Protein 6.2 g/dL (6.3-8.2)
== END ==
PROVIDERS: PCP Physician Assistant; Referring Provider Internal Medicine Rheumatology; Visit Provider Internal Medicine Rheumatology
DX: M06.00 Rheumatoid arthritis without rheumatoid factor, unspecified site (principal); G47.33 Obstructive sleep apnea (adult) (pediatric); F51.01 Primary insomnia; Z79.899 Other long term (current) drug therapy; Z87.898 Personal history of other specified conditions
CPT/HCPCS: 36415; 80076; 82565; 85025; 99214

== ENCOUNTER → 2019-10-05 15:39 | Outpatient (CLI) | payer MEDICARE, OTHER, SELFPAY ==
--- NOTE | 2019-10-05 | DI.RAD.S_ITS ---
PROCEDURE: XR ANKLE RT MIN 3V INDICATIONS: right foot and ankle pain TECHNIQUE: 3 views of the ankle were acquired. COMPARISON: [facility], CR, XR ANKLE RT MIN 3V, 10/16/2018, 8:40. FINDINGS: Bones: No fracture. Screw fixation of the 5th metatarsal base. 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 Soft tissues: No tibiotalar joint effusion. Achilles tendon appears normal. IMPRESSION: Midfoot joint degeneration, which could be posttraumatic however also raise the possibility of neuropathic arthropathy Intact screw fixation of the 5th metatarsal base. Dictated by: Shailesh Headley M.D. on 10/05/2019 at 16:29 Approved by: Shailesh Headley M.D. on 10/05/2019 at 16:30
--- NOTE | 2019-10-05 | DI.RAD.S_ITS ---
PROCEDURE: XR FOOT RT MIN 3V INDICATIONS: Pain TECHNIQUE: 3 views of the foot were acquired. COMPARISON: [facility], CR, XR ANKLE RT MIN 3V, 10/05/2019, 15:35. FINDINGS: Bones: No fracture. Screw fixation of the 5th metatarsal base and midfoot joint degeneration. Mild 1st MTP joint degeneration. Soft tissues: No tibiotalar joint effusion. Achilles tendon appears normal. IMPRESSION: Midfoot joint degeneration raising possibility of neuropathic arthropathy or this could be posttraumatic. Dictated by: Shailesh Headley M.D. on 10/05/2019 at 16:31 Approved by: Shailesh Headley M.D. on 10/05/2019 at 16:32
== END ==
PROVIDERS: PCP Physician Assistant; Referring Provider Physician Assistant; Visit Provider Physician Assistant
DX: M25.571 Pain in right ankle and joints of right foot (principal); M79.671 Pain in right foot; M19.071 Primary osteoarthritis, right ankle and foot
CPT/HCPCS: 73610; 73630

== ENCOUNTER 2019-11-23 09:00 | Outpatient (RCR) | payer MEDICARE, OTHER, SELFPAY ==
--- NOTE | 2019-10-02 10:11 | PT.OIE ---
Current Diagnoses Low back pain (10/02/19) Difficulty in walking, not elsewhere classified (10/02/19) Weakness (10/02/19) Arthrodesis status (10/02/19) Visit Care Team Role Provider Type Ellie Fountain PA-C Primary Care Provider Advanced Street Worker Specialty: Internal Medicine Address: [address] [place] [address], [id number] Email: [email or web address] Teofilo Olea Attending Provider Non-Staff Referring Provider Specialty: Medical Address: [address] [address], [id number] Email: Physical Therapy Initial Evaluation PT-OP-A Visit Information Start: 10/02/19 10:35 Freq: Status: Active Protocol: Document 10/02/19 10:37 SAK (Rec: 10/02/19 11:58 SAK [id number]) Out-Patient Physical Therapy Visit Information Visit Information Visit Type Initial Evaluation Visit Start Time 10:30 Visit Stop Time 11:15 Total Visit Minutes 45 Visit Number 1 Evaluation Information Evaluation Date 10/02/19 Precautions Precautions PMH includes bilateral shoulder pain s/p RC surgeries , history arthritis, blood clots, HTN, falls PT-OP-B Current Condition Start: 10/02/19 10:35 Freq: Status: Active Protocol: Document 10/02/19 10:37 SAK (Rec: 10/02/19 11:58 SAK [id number]) Current Condition History of Current Condition Onset Date 1 month ago. Current Complaints bilateral LB pain, right buttock and groin pain History of Current Condition Reports was out gardening for about 45 min, had onset of pain which has persisted and worsened across low back and right hip (points to ischial tuberosity and medial groin area) Worst at night, taking muscle relaxants to be able to sleep due to severe pain. Right hip popping when going up stairs (ischial tuberosity area.). Doing exercises very difficult though reports if gentle can do clamshells and hip abductions, poor tolerance for laying on back or laying on her right side. States isometric exercises or pelvic tilts cause muscle spasms. Blood tests results with low white count have caused physician to advise her to stay away from the public pool where she typically gets relief. States she thinks she may have stress fracture right foot, will be having foot x-ray. Wearing orthotics , not sure if help. Continues to be numb lateral right hip down lateral side of right LE since before back surgery last year. Occasional sharp severe pain into right foot since before back surgery. Prior Treatments and Tests 1 year ago L4-S1 fusion. October 2018 right ankle surgery, left ankle 2 years ago. Grade 1 L3 on L4 anterlisthesis. Pending PT may have injection and/or MRI; last MRI last October. Percocet; approx every other night 1/4 pill. Treatment Goals Patient/Caregiver Goals Decrease pain, return to PFL. Prior Functional Status Baseline Function- ADL's Modified Independent Baseline Function- Mobility Modified Independent Baseline Function- Gait no assistive device Current Functional Impairments (Reported) Functional Limitations- ADL's moderate to severe pain Functional Limitations- Mobility/Gait limited by back pain, hip pain , right ankle pain Functional Limitations- Recreation/ unable due to pain Hobbies PT-OP-C Subjective Start: 10/02/19 10:35 Freq: Status: Active Protocol: Document 10/02/19 10:37 SAK (Rec: 10/03/19 09:45 [facility] [id number]) Patient Questionnaires Oswestry Low Back Index Oswestry Score 62 OP-PT Pain Assessment Location low back Pain Location Details bilateral at PSIS level, right ischial tub, right groin Intensity 9 Scale Used Numeric (0 - 10) Description Pinching,Pressure,Shooting, Spasm,Throbbing Frequency Frequent Pain Aggravating Factors Position,Changing Position,ADL 's,Activity Pain Alleviating Factors Heat,Medication,Inactivity PT-OP-F Manual Assessment Start: 10/02/19 10:35 Freq: Status: Active Protocol: Document 10/02/19 10:37 SAK (Rec: 10/03/19 09:45 [facility] [id number]) Manual Assessments Soft Tissue Assessment Soft Tissue Mobility Assessment increased soft tissue tightness throughout right buttock Joint Mobility Assessment Joint Mobility Assessment unable to lay prone for l/s assessment and has fusion L4- S1 Poor tolerance for hip mobility assessment PT-OP-G Mobility & Gait Start: 10/02/19 10:35 Freq: Status: Active Protocol: Document 10/02/19 10:37 SAK (Rec: 10/03/19 09:45 SAK [id number]) OP Mobility Evaluation Bed Mobility Rolling painful Supine to and from Sit painful Transfers Sit to Stand painful with decreased weight- bearing right OP Gait Assessment Gait Gait Assistance Required: Independent Distance (Feet) 50 Assistive Devices Assistive Device None Orthotic/Prosthetic Devices or Brace: Yes Gait Deviations General Gait Pattern Antalgic,Decreased Stride Length,Decreased Feet Clearance Factors Limiting Gait Function Factors Limiting Gait Function Pain Stair Climbing Evaluation Comments Stair Climbing Comments unable to toelrate PT-OP-J Posture/Palpation/Skin Start: 10/02/19 10:35 Freq: Status: Active Protocol: Document 10/02/19 10:37 [facility] (Rec: 10/03/19 09:45 [facility] [id number]) Posture Evaluation Position Standing Head/C-Spine Posture Forward Head T-Spine Posture Increased Kyphosis L-Spine Posture Flattened Shoulder Posture (L) Rounded,(R) Rounded Scapula Posture (L) Protracted,(R) Protracted Arm Posture (L) Internally Rotated,(R) Internally Rotated Pelvis Posture (R) PSIS Inferior Ankle/Foot Posture (L) Pronated,(R) Pronated Comments Posture Comments right leg 1/2 longer in supine Palpation Assessment Location Two Palpation Location bilateral lumbar spine Palpation Findings Tenderness One Palpation Location right buttock Palpation Findings Soft Tissue Tightness, Tenderness PT-OP-K Range of Motion Start: 10/02/19 10:35 Freq: Status: Active Protocol: Document 10/02/19 10:37 [facility] (Rec: 10/03/19 09:45 [facility] [id number]) Lumbar Spine Range of Motion Lumbar Spine Active Testing Position Standing ROM Limitations Pain Comments mod decrease all motions with c/o increase in pain Hip Goniometric Range of Motion Hip right passive Flexion w/Knee Flexed 110 Straight Leg Raise 60 Extension 0 Abduction 40 Internal Rotation 30 External Rotation 55 Left passive Flexion w/Knee Flexed 120 Straight Leg Raise 75 Extension 0 Abduction 40 Internal Rotation 25 External Rotation 50 Hip ROM Limitations Hip ROM Limitations Soft Tissue Tightness,Pain Comments reports burning sensation right adductors with passive abduction Knee Goniometric Range of Motion Knee gloria Knee ROM WFL Yes Ankle and Foot Goniometric Range of Motion Ankle and Foot ROM Limitations ROM Limitations Pain PT-OP-L Special Tests Start: 10/02/19 10:35 Freq: Status: Active Protocol: Document 10/02/19 10:37 SAK (Rec: 10/03/19 09:45 [facility] [id number]) Special Tests Lumbar Spine Special Tests Stork Test Test Results positive for SI pain Straight Leg Raise Test Results positive for hamstring tightness PT-OP-M Strength Start: 10/02/19 10:35 Freq: Status: Active Protocol: Document 10/02/19 10:37 [facility] (Rec: 10/03/19 09:45 [facility] [id number]) Trunk Strength Trunk Manual Muscle Testing Reason Not Measured Pain Hip Strength Hip Manual Muscle Testing Left Flexion (L2) 4 Good Extension (S1) 3- Fair- Abduction 3+ Fair+ Adduction 3+ Fair+ External Rotation 4- Good- Internal Rotation 4- Good- Right Flexion (L2) 4 Good Extension (S1) 2+ Poor+ Abduction 2+ Poor+ External Rotation 3+ Fair+ Internal Rotation 4- Good- Comments painful Knee Strength Knee Manual Muscle Testing gloria Flexion (S2) 4+ Good+ Extension (L3) 4+ Good+ PT-OP-Q Treatments Start: 10/02/19 10:35 Freq: Status: Active Protocol: Document 10/02/19 10:37 [facility] (Rec: 10/03/19 09:45 [facility] [id number]) Self-Care/Home Management Treatment Education Patient Education Home Exercise Program,Pain Management Other Education very gentle resumption of isometric exercises to begin with, painfree intensity. Use heat for muscle relaxation and pain management. Use tennis ball for muscle release at ischial tuberosity. Use assitive device to decrease limp and improve mechanics of gait. PT-OP-T Assessment and Plan Start: 10/02/19 10:35 Freq: Status: Active Protocol: Document 10/02/19 10:37 [facility] (Rec: 10/03/19 09:45 [facility] [id number]) Physical Therapy Assessment Rehab Potential Rehabilitation Potential Good Evaluation Complexity Number of Personal Factors/Comorbidities 3 or More Number of Body Systems Impaired 3 Clinical Presentation at Evaluation Unstable Impairments Impairments Activity Tolerance,Pain,ROM, Strength Goals Oswestry disability index score Impairment Activity intolerance, Oswestry disability index score 62% Senior Living Goal (LTG) decrease score to no greater than 30% to help patient resume prior level of function One Impairment LE and core muscle weakness Short Term Goal (STG) Patient able to tolerate HEP for purposes of core and LE strengthening STG Duration 11/02/19 Staffing Administrator Goal (LTG) Patient to demonstrate improvement in muscle strength throughout core and LE's to at least 4+/5 to allow for return to usual activities. LTG Duration 01/02/20 Antalgic gait Impairment antalgic gait, using FWW Senior Living Goal (LTG) Patient able to ambulate with least restrictive assistive device with mninimal to no limp LTG Duration 12 wks Assessment Summary Assessment Patient presents with function -limiting pain in bilateral low back, SI region, right ischial tuberosity with radicular symptoms into right posterior thigh at times. Her gait is antalgic but she is not currently using an assistive device. Her biomechanics of gait are altered due to foot mechanics resulting from multiple surgeries resulting in pelvic malalignment. Weakness is noted throughout her core musculature and she has soft tissue tightness throughout her pelvis and hips right greater than left. She would benefit from physical therapy to decrease her pain, improve her ROM, strength, body mechanics, muscle activation for improved function. Due to fusions in her feet her altered mechanics are likely to be an issue in the long- term. Exercise in a pool is the best for this patient but due to Covid 19 and patient blood count she is currently unable. Physical Therapy Plan Frequency and Duration Frequency of Treatment 2x/Week Duration of Treatment 12 weeks Plan of Care Start Date 10/02/19 Plan of Care End Date 01/02/20 Therapeutic Interventions Therapeutic Interventions Home Exercise Program,Manual Therapy,Neuromuscular Re- education,Patient/Caregiver Education,Self-Care/Home Management,Soft Tissue Mobilization,Taping, Therapeutic Activities, Therapeutic Exercises Modalities Cold Pack/Ice Massage,Electric Stimulation,Hot Packs, Ultrasound Next Visit Focus/Plan Next Note Type Treatment Note Next Visit Plan Review gentle isometrics, manual therapy techniques as indicated for pelvic realignment, progression of ther ex as tolerated with emphasis on automatic core engagement, body mechanics. Modalities as indicated for pain.
--- NOTE | 2019-10-02 10:11 | PT.OPPOC ---
Physical, Occupational & Speech Therapy At [facility] Current Diagnoses Low back pain (10/02/19) Difficulty in walking, not elsewhere classified (10/02/19) Weakness (10/02/19) Arthrodesis status (10/02/19) Visit Care Team Role Provider Type Ellie Fountain PA-C Primary Care Provider Advanced Mine Utility Operator Specialty: Internal Medicine Address: [address] [place] [address], [id number] Email: [email or web address] Teofilo Olea Attending Provider Non-Staff Referring Provider Specialty: Medical Address: [address] [place] [address], [place], [place], [facility] Email: Plan Of Care PT-OP-T Assessment and Plan Start: 10/02/19 10:35 Freq: Status: Active Protocol: Document 10/02/19 10:37 SAK (Rec: 10/03/19 09:45 [facility] [id number]) Physical Therapy Assessment Rehab Potential Rehabilitation Potential Good Evaluation Complexity Number of Personal Factors/Comorbidities 3 or More Number of Body Systems Impaired 3 Clinical Presentation at Evaluation Unstable Impairments Impairments Activity Tolerance,Pain,ROM, Strength Goals Oswestry disability index score Impairment Activity intolerance, Oswestry disability index score 62% Care Home Goal (LTG) decrease score to no greater than 30% to help patient resume prior level of function One Impairment LE and core muscle weakness Short Term Goal (STG) Patient able to tolerate HEP for purposes of core and LE strengthening STG Duration 11/02/19 [employer]oth Printing Inspector Goal (LTG) Patient to demonstrate improvement in muscle strength throughout core and LE's to at least 4+/5 to allow for return to usual activities. LTG Duration 01/02/20 Antalgic gait Impairment antalgic gait, using FWW Care Home Goal (LTG) Patient able to ambulate with least restrictive assistive device with mninimal to no limp LTG Duration 12 wks Assessment Summary Assessment Patient presents with function -limiting pain in bilateral low back, SI region, right ischial tuberosity with radicular symptoms into right posterior thigh at times. Her gait is antalgic but she is not currently using an assistive device. Her biomechanics of gait are altered due to foot mechanics resulting from multiple surgeries resulting in pelvic malalignment. Weakness is noted throughout her core musculature and she has soft tissue tightness throughout her pelvis and hips right greater than left. She would benefit from physical therapy to decrease her pain, improve her ROM, strength, body mechanics, muscle activation for improved function. Due to fusions in her feet her altered mechanics are likely to be an issue in the long- term. Exercise in a pool is the best for this patient but due to Covid 19 and patient blood count she is currently unable. Physical Therapy Plan Frequency and Duration Frequency of Treatment 2x/Week Duration of Treatment 12 weeks Plan of Care Start Date 10/02/19 Plan of Care End Date 01/02/20 Therapeutic Interventions Therapeutic Interventions Home Exercise Program,Manual Therapy,Neuromuscular Re- education,Patient/Caregiver Education,Self-Care/Home Management,Soft Tissue Mobilization,Taping, Therapeutic Activities, Therapeutic Exercises Modalities Cold Pack/Ice Massage,Electric Stimulation,Hot Packs, Ultrasound Next Visit Focus/Plan Next Note Type Treatment Note Next Visit Plan Review gentle isometrics, manual therapy techniques as indicated for pelvic realignment, progression of ther ex as tolerated with emphasis on automatic core engagement, body mechanics. Modalities as indicated for pain. Plan of Care Dates Plan of Care Start Date 10/02/19 Plan of Care End Date 01/02/20 Electronically Signed by: Julee Gee, PT 10/04/19 1011 Please Sign and Return: I have reviewed this Plan of Care and certify that the skilled therapy services above are required to meet the patient?s needs. Physician Signature Date Printed Name and Credentials Clinical Instructor Signature Printed Name and Credentials
--- NOTE | 2019-10-05 16:24 | PT.OTN ---
Current Diagnoses Low back pain (10/05/19) Difficulty in walking, not elsewhere classified (10/05/19) Weakness (10/05/19) Arthrodesis status (10/05/19) Physical Therapy Treatment Note PT-OP-A Visit Information Start: 10/02/19 10:35 Freq: Status: Active Protocol: Document 10/05/19 14:35 SAK (Rec: 10/05/19 15:16 SAK [id number]) Out-Patient Physical Therapy Visit Information Visit Information Visit Type Treatment Note Visit Start Time 14:30 Visit Stop Time 15:28 Total Visit Minutes 58 Visit Number 2 Evaluation Information Evaluation Date 10/02/19 Precautions Precautions PMH includes bilateral shoulder pain s/p RC surgeries , history arthritis, blood clots, HTN, falls PT-OP-B Current Condition Start: 10/02/19 10:35 Freq: Status: Active Protocol: Document 10/02/19 10:37 SAK (Rec: 10/02/19 11:58 SAK [id number]) Current Condition History of Current Condition Onset Date 1 month ago. Current Complaints bilateral LB pain, right buttock and groin pain History of Current Condition Reports was out gardening for about 45 min, had onset of pain which has persisted and worsened across low back and right hip (points to ischial tuberosity and medial groin area) Worst at night, taking muscle relaxants to be able to sleep due to severe pain. Right hip popping when going up stairs (ischial tuberosity area.). Doing exercises very difficult though reports if gentle can do clamshells and hip abductions, poor tolerance for laying on back or laying on her right side. States isometric exercises or pelvic tilts cause muscle spasms. Blood tests results with low white count have caused physician to advise her to stay away from the public pool where she typically gets relief. States she thinks she may have stress fracture right foot, will be having foot x-ray. Wearing orthotics , not sure if help. Continues to be numb lateral right hip down lateral side of right LE since before back surgery last year. Occasional sharp severe pain into right foot since before back surgery. Prior Treatments and Tests 1 year ago L4-S1 fusion. October 2018 right ankle surgery, left ankle 2 years ago. Grade 1 L3 on L4 anterlisthesis. Pending PT may have injection and/or MRI; last MRI last October. Percocet; approx every other night 1/ pill. Treatment Goals Patient/Caregiver Goals Decrease pain, return to PFL. Prior Functional Status Baseline Function- ADL's Modified Independent Baseline Function- Mobility Modified Independent Baseline Function- Gait no assistive device Current Functional Impairments (Reported) Functional Limitations- ADL's moderate to severe pain Functional Limitations- Mobility/Gait limited by back pain, hip pain , right ankle pain Functional Limitations- Recreation/ unable due to pain Hobbies PT-OP-C Subjective Start: 10/02/19 10:35 Freq: Status: Active Protocol: Document 10/05/19 14:35 SAK (Rec: 10/05/19 15:16 SAK [id number]) OP-PT Subjective Patient Comments Patient Comments Pain better past couple days, ok during day, still very painful at night, taking muscle relaxants. States can' t get comfortable when in bed. Doing isometric exercises as instructed. Feels kinesiotape may have been helpful due to better tolerance for activity during the day. Would like to obtain SI brace today. PT-OP-F Manual Assessment Start: 10/02/19 10:35 Freq: Status: Active Protocol: Document 10/02/19 10:37 SAK (Rec: 10/03/19 09:45 [facility] [id number]) Manual Assessments Soft Tissue Assessment Soft Tissue Mobility Assessment increased soft tissue tightness throughout right buttock Joint Mobility Assessment Joint Mobility Assessment unable to lay prone for l/s assessment and has fusion L4- S1 Poor tolerance for hip mobility assessment PT-OP-G Mobility & Gait Start: 10/02/19 10:35 Freq: Status: Active Protocol: Document 10/02/19 10:37 SAK (Rec: 10/03/19 09:45 [facility] [id number]) OP Mobility Evaluation Bed Mobility Rolling painful Supine to and from Sit painful Transfers Sit to Stand painful with decreased weight- bearing right OP Gait Assessment Gait Gait Assistance Required: Independent Distance (Feet) 50 Assistive Devices Assistive Device None Orthotic/Prosthetic Devices or Brace: Yes Gait Deviations General Gait Pattern Antalgic,Decreased Stride Length,Decreased Feet Clearance Factors Limiting Gait Function Factors Limiting Gait Function Pain Stair Climbing Evaluation Comments Stair Climbing Comments unable to toelrate PT-OP-J Posture/Palpation/Skin Start: 10/02/19 10:35 Freq: Status: Active Protocol: Document 10/02/19 10:37 SAK (Rec: 10/03/19 09:45 [facility] [id number]) Posture Evaluation Position Standing Head/C-Spine Posture Forward Head T-Spine Posture Increased Kyphosis L-Spine Posture Flattened Shoulder Posture (L) Rounded,(R) Rounded Scapula Posture (L) Protracted,(R) Protracted Arm Posture (L) Internally Rotated,(R) Internally Rotated Pelvis Posture (R) PSIS Inferior Ankle/Foot Posture (L) Pronated,(R) Pronated Comments Posture Comments right leg 1/2 longer in supine Palpation Assessment Location Two Palpation Location bilateral lumbar spine Palpation Findings Tenderness One Palpation Location right buttock Palpation Findings Soft Tissue Tightness, Tenderness PT-OP-K Range of Motion Start: 10/02/19 10:35 Freq: Status: Active Protocol: Document 10/02/19 10:37 [facility] (Rec: 10/03/19 09:45 [facility] [id number]) Lumbar Spine Range of Motion Lumbar Spine Active Testing Position Standing ROM Limitations Pain Comments mod decrease all motions with c/o increase in pain Hip Goniometric Range of Motion Hip right passive Flexion w/Knee Flexed 110 Straight Leg Raise 60 Extension 0 Abduction 40 Internal Rotation 30 External Rotation 55 Left passive Flexion w/Knee Flexed 120 Straight Leg Raise 75 Extension 0 Abduction 40 Internal Rotation 25 External Rotation 50 Hip ROM Limitations Hip ROM Limitations Soft Tissue Tightness,Pain Comments reports burning sensation right adductors with passive abduction Knee Goniometric Range of Motion Knee gloria Knee ROM WFL Yes Ankle and Foot Goniometric Range of Motion Ankle and Foot ROM Limitations ROM Limitations Pain PT-OP-L Special Tests Start: 10/02/19 10:35 Freq: Status: Active Protocol: Document 10/02/19 10:37 [facility] (Rec: 10/03/19 09:45 [facility] [id number]) Special Tests Lumbar Spine Special Tests Stork Test Test Results positive for SI pain Straight Leg Raise Test Results positive for hamstring tightness PT-OP-M Strength Start: 10/02/19 10:35 Freq: Status: Active Protocol: Document 10/02/19 10:37 [facility] (Rec: 10/03/19 09:45 [facility] [id number]) Trunk Strength Trunk Manual Muscle Testing Reason Not Measured Pain Hip Strength Hip Manual Muscle Testing Left Flexion (L2) 4 Good Extension (S1) 3- Fair- Abduction 3+ Fair+ Adduction 3+ Fair+ External Rotation 4- Good- Internal Rotation 4- Good- Right Flexion (L2) 4 Good Extension (S1) 2+ Poor+ Abduction 2+ Poor+ External Rotation 3+ Fair+ Internal Rotation 4- Good- Comments painful Knee Strength Knee Manual Muscle Testing gloria Flexion (S2) 4+ Good+ Extension (L3) 4+ Good+ PT-OP-Q Treatments Start: 10/02/19 10:35 Freq: Status: Active Protocol: Document 10/05/19 14:35 [facility] (Rec: 10/05/19 15:16 SAK [id number]) Cardio Equipment Recumbent Elliptical ([employer]) Duration (Minutes) 10 Resistance 2 Seat Position 7 Gym Equipment Shuttle Recovery Bilateral Squats Details with short foot exercise, core activation Resistance 50 Shuttle Recovery Platform Stable Reps/Time 10x2 Therapeutic Exercises Supine Exercises SKTC Reps/Minutes 2x30 HS stretch Reps/Minutes 2x 30 Comments manual automatic core engagement Supine Exercise Name isometric push down with arms, rhythmic stabilization Comments PT resistance:sagittal, horizontal, and diagnonal 3 Supine Exercise Name TrA with heel slide ball squeeze Supine Exercise Name Isometric Hip Adduction Side bilateral Equipment Used 9 ball Reps/Minutes 10 x, 5 sec holds hip ab/ad Equipment Used L2 TB Reps/Minutes 10x2 Comments gloria and unil Self-Care/Home Management Treatment Education Other Education Application of BOA SI support PT-OP-T Assessment and Plan Start: 10/02/19 10:35 Freq: Status: Active Protocol: Document 10/05/19 14:35 [facility] (Rec: 10/05/19 15:16 [facility] [id number]) Physical Therapy Assessment Goals Oswestry disability index score Impairment Activity intolerance, Oswestry disability index score 62% Computer Typesetter Goal (LTG) decrease score to no greater than 30% to help patient resume prior level of function One Impairment LE and core muscle weakness Short Term Goal (STG) Patient able to tolerate HEP for purposes of core and LE strengthening STG Duration 11/02/19 [facility] Goal (LTG) Patient to demonstrate improvement in muscle strength throughout core and LE's to at least 4+/5 to allow for return to usual activities. LTG Duration 01/02/20 Antalgic gait Impairment antalgic gait, using FWW Computer Typesetter Goal (LTG) Patient able to ambulate with least restrictive assistive device with mninimal to no limp LTG Duration 12 wks Assessment Summary Assessment Patient reporting significant decrease in pain during the day with increased activity tolerance, worst pain at night with inability to get comfortable. Further education in bed positioning. Good tolerance for ther ex today. Physical Therapy Plan Frequency and Duration Frequency of Treatment 2x/Week Duration of Treatment 12 weeks Plan of Care Start Date 10/02/19 Plan of Care End Date 01/02/20 Therapeutic Interventions Therapeutic Interventions Home Exercise Program,Manual Therapy,Neuromuscular Re- education,Patient/Caregiver Education,Self-Care/Home Management,Soft Tissue Mobilization,Taping, Therapeutic Activities, Therapeutic Exercises Modalities Cold Pack/Ice Massage,Electric Stimulation,Hot Packs, Ultrasound Next Visit Focus/Plan Next Note Type Treatment Note
--- NOTE | 2019-10-10 11:15 | PT.OTN ---
Current Diagnoses Low back pain (10/10/19) Difficulty in walking, not elsewhere classified (10/10/19) Weakness (10/10/19) Arthrodesis status (10/10/19) Physical Therapy Treatment Note PT-OP-A Visit Information Start: 10/02/19 10:35 Freq: Status: Active Protocol: Document 10/10/19 07:35 [facility] (Rec: 10/10/19 10:49 [facility] [id number]) Out-Patient Physical Therapy Visit Information Visit Information Visit Type Treatment Note Visit Start Time 07:30 Visit Stop Time 09:27 Total Visit Minutes 57 Visit Number 3 Number of T[employer] INSURANCE AGENT Visits 0 PT-OP-B Current Condition Start: 10/02/19 10:35 Freq: Status: Active Protocol: Document 10/02/19 10:37 SAK (Rec: 10/02/19 11:58 SAK [id number]) Current Condition History of Current Condition Onset Date 1 month ago. Current Complaints bilateral LB pain, right buttock and groin pain History of Current Condition Reports was out gardening for about 45 min, had onset of pain which has persisted and worsened across low back and right hip (points to ischial tuberosity and medial groin area) Worst at night, taking muscle relaxants to be able to sleep due to severe pain. Right hip popping when going up stairs (ischial tuberosity area.). Doing exercises very difficult though reports if gentle can do clamshells and hip abductions, poor tolerance for laying on back or laying on her right side. States isometric exercises or pelvic tilts cause muscle spasms. Blood tests results with low white count have caused physician to advise her to stay away from the public pool where she typically gets relief. States she thinks she may have stress fracture right foot, will be having foot x-ray. Wearing orthotics , not sure if help. Continues to be numb lateral right hip down lateral side of right LE since before back surgery last year. Occasional sharp severe pain into right foot since before back surgery. Prior Treatments and Tests 1 year ago L4-S1 fusion. October 2018 right ankle surgery, left ankle 2 years ago. Grade 1 L3 on L4 anterlisthesis. Pending PT may have injection and/or MRI; last MRI last October. Percocet; approx every other night 1/4 pill. Treatment Goals Patient/Caregiver Goals Decrease pain, return to PFL. Prior Functional Status Baseline Function- ADL's Modified Independent Baseline Function- Mobility Modified Independent Baseline Function- Gait no assistive device Current Functional Impairments (Reported) Functional Limitations- ADL's moderate to severe pain Functional Limitations- Mobility/Gait limited by back pain, hip pain , right ankle pain Functional Limitations- Recreation/ unable due to pain Hobbies PT-OP-C Subjective Start: 10/02/19 10:35 Freq: Status: Active Protocol: Document 10/10/19 07:35 [facility] (Rec: 10/10/19 10:49 [facility] [id number]) OP-PT Subjective Patient Comments Patient Comments Pt reports she has not worn SI belt d/t it not fitting. She has felt better since coming. Last night she had pain while sleeping. She cannot lay on R side at all and thinks she was tryingt o trun in her sleep and woke up d/t pain. Pt had a fall backwards in garden this weekend d/t losing her balance. Reports it was a soft landing. Patient Reported Progress Improving PT-OP-F Manual Assessment Start: 10/02/19 10:35 Freq: Status: Active Protocol: Document 10/02/19 10:37 SAK (Rec: 10/03/19 09:45 [facility] [id number]) Manual Assessments Soft Tissue Assessment Soft Tissue Mobility Assessment increased soft tissue tightness throughout right buttock Joint Mobility Assessment Joint Mobility Assessment unable to lay prone for l/s assessment and has fusion L4- S1 Poor tolerance for hip mobility assessment PT-OP-G Mobility & Gait Start: 10/02/19 10:35 Freq: Status: Active Protocol: Document 10/02/19 10:37 SAK (Rec: 10/03/19 09:45 [facility] [id number]) OP Mobility Evaluation Bed Mobility Rolling painful Supine to and from Sit painful Transfers Sit to Stand painful with decreased weight- bearing right OP Gait Assessment Gait Gait Assistance Required: Independent Distance (Feet) 50 Assistive Devices Assistive Device None Orthotic/Prosthetic Devices or Brace: Yes Gait Deviations General Gait Pattern Antalgic,Decreased Stride Length,Decreased Feet Clearance Factors Limiting Gait Function Factors Limiting Gait Function Pain Stair Climbing Evaluation Comments Stair Climbing Comments unable to toelrate PT-OP-J Posture/Palpation/Skin Start: 10/02/19 10:35 Freq: Status: Active Protocol: Document 10/02/19 10:37 SAK (Rec: 07/28/20 09:45 [facility] [id number]) Posture Evaluation Position Standing Head/C-Spine Posture Forward Head T-Spine Posture Increased Kyphosis L-Spine Posture Flattened Shoulder Posture (L) Rounded,(R) Rounded Scapula Posture (L) Protracted,(R) Protracted Arm Posture (L) Internally Rotated,(R) Internally Rotated Pelvis Posture (R) PSIS Inferior Ankle/Foot Posture (L) Pronated,(R) Pronated Comments Posture Comments right leg 1/2 longer in supine Palpation Assessment Location Two Palpation Location bilateral lumbar spine Palpation Findings Tenderness One Palpation Location right buttock Palpation Findings Soft Tissue Tightness, Tenderness PT-OP-K Range of Motion Start: 10/02/19 10:35 Freq: Status: Active Protocol: Document 10/02/19 10:37 [facility] (Rec: 10/03/19 09:45 [facility] [id number]) Lumbar Spine Range of Motion Lumbar Spine Active Testing Position Standing ROM Limitations Pain Comments mod decrease all motions with c/o increase in pain Hip Goniometric Range of Motion Hip right passive Flexion w/Knee Flexed 110 Straight Leg Raise 60 Extension 0 Abduction 40 Internal Rotation 30 External Rotation 55 Left passive Flexion w/Knee Flexed 120 Straight Leg Raise 75 Extension 0 Abduction 40 Internal Rotation 25 External Rotation 50 Hip ROM Limitations Hip ROM Limitations Soft Tissue Tightness,Pain Comments reports burning sensation right adductors with passive abduction Knee Goniometric Range of Motion Knee gloria Knee ROM WFL Yes Ankle and Foot Goniometric Range of Motion Ankle and Foot ROM Limitations ROM Limitations Pain PT-OP-L Special Tests Start: 10/02/19 10:35 Freq: Status: Active Protocol: Document 10/02/19 10:37 [facility] (Rec: 10/03/19 09:45 [facility] [id number]) Special Tests Lumbar Spine Special Tests Stork Test Test Results positive for SI pain Straight Leg Raise Test Results positive for hamstring tightness PT-OP-M Strength Start: 10/02/19 10:35 Freq: Status: Active Protocol: Document 10/02/19 10:37 [facility] (Rec: 10/03/19 09:45 [facility] [id number]) Trunk Strength Trunk Manual Muscle Testing Reason Not Measured Pain Hip Strength Hip Manual Muscle Testing Left Flexion (L2) 4 Good Extension (S1) 3- Fair- Abduction 3+ Fair+ Adduction 3+ Fair+ External Rotation 4- Good- Internal Rotation 4- Good- Right Flexion (L2) 4 Good Extension (S1) 2+ Poor+ Abduction 2+ Poor+ External Rotation 3+ Fair+ Internal Rotation 4- Good- Comments painful Knee Strength Knee Manual Muscle Testing gloria Flexion (S2) 4+ Good+ Extension (L3) 4+ Good+ PT-OP-Q Treatments Start: 10/02/19 10:35 Freq: Status: Active Protocol: Document 10/10/19 07:35 [facility] (Rec: 10/10/19 10:49 [facility] [id number]) Cardio Equipment Recumbent Elliptical ([employer]x) Duration (Minutes) 8 Resistance 3 Seat Position 7 Gym Equipment Shuttle Recovery Bilateral Squats Details with short foot exercise, core activation Resistance 50 Shuttle Recovery Platform Stable Reps/Time 10x2 Therapeutic Exercises Supine Exercises LTR Supine Exercise Name small range working on core Side bilateral Reps/Minutes 10 TrA activation Supine Exercise Name w/bent knee fall out Side bilateral Reps/Minutes 12 Comments focus on comfortable range 1 Supine Exercise Name pelvic tilt Reps/Minutes 10 Therapeutic Activity Therapeutic Activity lifting Comments 1.hip hinge 2. staggered stance w/hip hinge for edu for mopping Self-Care/Home Management Treatment Education Other Education review set up of SI belt PT-OP-R Modalities Start: 10/02/19 10:35 Freq: Status: Active Protocol: Document 10/10/19 07:35 [facility] (Rec: 10/10/19 10:49 [facility] [id number]) Hot Pack/Cold Pack Treatment Hot Pack Location lumboscral spine Patient Position Hooklying Treatment Duration (minutes) 15 Patient Tolerance Good PT-OP-T Assessment and Plan Start: 10/02/19 10:35 Freq: Status: Active Protocol: Document 10/10/19 07:35 [facility] (Rec: 10/10/19 10:49 [facility] [id number]) Physical Therapy Assessment Goals Oswestry disability index score Impairment Activity intolerance, Oswestry disability index score 62% [facility] Goal (LTG) decrease score to no greater than 30% to help patient resume prior level of function One Impairment LE and core muscle weakness Short Term Goal (STG) Patient able to tolerate HEP for purposes of core and LE strengthening STG Duration 11/02/19 Ground Host/Hostess Goal (LTG) Patient to demonstrate improvement in muscle strength throughout core and LE's to at least 4+/5 to allow for return to usual activities. LTG Duration 01/02/20 Antalgic gait Impairment antalgic gait, using FWW [facility] Goal (LTG) Patient able to ambulate with least restrictive assistive device with mninimal to no limp LTG Duration 12 wks Assessment Summary Assessment Pt required max cueing fro hip hinge and small knee bending for squat for picking up objects from ground for safer back mechanics. Cueing required for slow controlled motion with exercises and staying in painfree range. Physical Therapy Plan Frequency and Duration Frequency of Treatment 2x/Week Duration of Treatment 12 weeks Plan of Care Start Date 10/02/19 Plan of Care End Date 01/02/20 Next Visit Focus/Plan Next Note Type Treatment Note Next Visit Plan review set up of SI belt, cont to progress core as tolerated
--- NOTE | 2019-10-12 12:08 | PT.OTN ---
Current Diagnoses Low back pain (10/12/19) Difficulty in walking, not elsewhere classified (10/12/19) Weakness (10/12/19) Arthrodesis status (10/12/19) Physical Therapy Treatment Note PT-OP-A Visit Information Start: 10/02/19 10:35 Freq: Status: Active Protocol: Document 10/12/19 11:20 [facility] (Rec: 10/12/19 12:08 [facility] [id number]) Out-Patient Physical Therapy Visit Information Visit Information Visit Type Treatment Note Visit Start Time 11:16 Visit Stop Time 12:13 Total Visit Minutes 57 Visit Number 4 Number of DIRECTOR OF RELIGIOUS ACTIVITIES Visits 0 PT-OP-B Current Condition Start: 10/02/19 10:35 Freq: Status: Active Protocol: Document 10/02/19 10:37 [facility] (Rec: 10/02/19 11:58 [facility] [id number]) Current Condition History of Current Condition Onset Date 1 month ago. Current Complaints bilateral LB pain, right buttock and groin pain History of Current Condition Reports was out gardening for about 45 min, had onset of pain which has persisted and worsened across low back and right hip (points to ischial tuberosity and medial groin area) Worst at night, taking muscle relaxants to be able to sleep due to severe pain. Right hip popping when going up stairs (ischial tuberosity area.). Doing exercises very difficult though reports if gentle can do clamshells and hip abductions, poor tolerance for laying on back or laying on her right side. States isometric exercises or pelvic tilts cause muscle spasms. Blood tests results with low white count have caused physician to advise her to stay away from the public pool where she typically gets relief. States she thinks she may have stress fracture right foot, will be having foot x-ray. Wearing orthotics , not sure if help. Continues to be numb lateral right hip down lateral side of right LE since before back surgery last year. Occasional sharp severe pain into right foot since before back surgery. Prior Treatments and Tests 1 year ago L4-S1 fusion. October 2018 right ankle surgery, left ankle 2 years ago. Grade 1 L3 on L4 anterlisthesis. Pending PT may have injection and/or MRI; last MRI last October. Percocet; approx every other night 1/4 pill. Treatment Goals Patient/Caregiver Goals Decrease pain, return to PFL. Prior Functional Status Baseline Function- ADL's Modified Independent Baseline Function- Mobility Modified Independent Baseline Function- Gait no assistive device Current Functional Impairments (Reported) Functional Limitations- ADL's moderate to severe pain Functional Limitations- Mobility/Gait limited by back pain, hip pain , right ankle pain Functional Limitations- Recreation/ unable due to pain Hobbies PT-OP-C Subjective Start: 10/02/19 10:35 Freq: Status: Active Protocol: Document 10/12/19 11:20 [facility] (Rec: 10/12/19 12:08 [facility] [id number]) OP-PT Subjective Patient Comments Patient Comments Pt reports she was feeling good yesterday until she layed down to go to bed. She said she was in pain in back and feet all night and tried all posiitons with pillows with no help. PT-OP-F Manual Assessment Start: 10/02/19 10:35 Freq: Status: Active Protocol: Document 10/02/19 10:37 [facility] (Rec: 10/03/19 09:45 [facility] [id number]) Manual Assessments Soft Tissue Assessment Soft Tissue Mobility Assessment increased soft tissue tightness throughout right buttock Joint Mobility Assessment Joint Mobility Assessment unable to lay prone for l/s assessment and has fusion L4- S1 Poor tolerance for hip mobility assessment PT-OP-G Mobility & Gait Start: 10/02/19 10:35 Freq: Status: Active Protocol: Document 10/02/19 10:37 [facility] (Rec: 10/03/19 09:45 [facility] [id number]) OP Mobility Evaluation Bed Mobility Rolling painful Supine to and from Sit painful Transfers Sit to Stand painful with decreased weight- bearing right OP Gait Assessment Gait Gait Assistance Required: Independent Distance (Feet) 50 Assistive Devices Assistive Device None Orthotic/Prosthetic Devices or Brace: Yes Gait Deviations General Gait Pattern Antalgic,Decreased Stride Length,Decreased Feet Clearance Factors Limiting Gait Function Factors Limiting Gait Function Pain Stair Climbing Evaluation Comments Stair Climbing Comments unable to toelrate PT-OP-J Posture/Palpation/Skin Start: 10/02/19 10:35 Freq: Status: Active Protocol: Document 10/02/19 10:37 [facility] (Rec: 10/03/19 09:45 [facility] [id number]) Posture Evaluation Position Standing Head/C-Spine Posture Forward Head T-Spine Posture Increased Kyphosis L-Spine Posture Flattened Shoulder Posture (L) Rounded,(R) Rounded Scapula Posture (L) Protracted,(R) Protracted Arm Posture (L) Internally Rotated,(R) Internally Rotated Pelvis Posture (R) PSIS Inferior Ankle/Foot Posture (L) Pronated,(R) Pronated Comments Posture Comments right leg 1/2 longer in supine Palpation Assessment Location Two Palpation Location bilateral lumbar spine Palpation Findings Tenderness One Palpation Location right buttock Palpation Findings Soft Tissue Tightness, Tenderness PT-OP-K Range of Motion Start: 10/02/19 10:35 Freq: Status: Active Protocol: Document 10/02/19 10:37 [facility] (Rec: 10/03/19 09:45 [facility] [id number]) Lumbar Spine Range of Motion Lumbar Spine Active Testing Position Standing ROM Limitations Pain Comments mod decrease all motions with c/o increase in pain Hip Goniometric Range of Motion Hip right passive Flexion w/Knee Flexed 110 Straight Leg Raise 60 Extension 0 Abduction 40 Internal Rotation 30 External Rotation 55 Left passive Flexion w/Knee Flexed 120 Straight Leg Raise 75 Extension 0 Abduction 40 Internal Rotation 25 External Rotation 50 Hip ROM Limitations Hip ROM Limitations Soft Tissue Tightness,Pain Comments reports burning sensation right adductors with passive abduction Knee Goniometric Range of Motion Knee gloria Knee ROM WFL Yes Ankle and Foot Goniometric Range of Motion Ankle and Foot ROM Limitations ROM Limitations Pain PT-OP-L Special Tests Start: 10/02/19 10:35 Freq: Status: Active Protocol: Document 10/02/19 10:37 [facility] (Rec: 10/03/19 09:45 [facility] [id number]) Special Tests Lumbar Spine Special Tests Stork Test Test Results positive for SI pain Straight Leg Raise Test Results positive for hamstring tightness PT-OP-M Strength Start: 10/02/19 10:35 Freq: Status: Active Protocol: Document 10/02/19 10:37 [facility] (Rec: 10/03/19 09:45 [facility] [id number]) Trunk Strength Trunk Manual Muscle Testing Reason Not Measured Pain Hip Strength Hip Manual Muscle Testing Left Flexion (L2) 4 Good Extension (S1) 3- Fair- Abduction 3+ Fair+ Adduction 3+ Fair+ External Rotation 4- Good- Internal Rotation 4- Good- Right Flexion (L2) 4 Good Extension (S1) 2+ Poor+ Abduction 2+ Poor+ External Rotation 3+ Fair+ Internal Rotation 4- Good- Comments painful Knee Strength Knee Manual Muscle Testing gloria Flexion (S2) 4+ Good+ Extension (L3) 4+ Good+ PT-OP-Q Treatments Start: 10/02/19 10:35 Freq: Status: Active Protocol: Document 10/12/19 11:20 [facility] (Rec: 10/12/19 12:08 [facility] [id number]) Cardio Equipment Recumbent Elliptical (Biodex) Duration (Minutes) 8 Resistance 1-2 Seat Position 7 Therapeutic Exercises Supine Exercises 2 Supine Exercise Name Hip ER w/TA Side bilateral Equipment Used L1 Reps/Minutes 10 stretch Supine Exercise Name SKTC, piriformis stretch Side bilateral Reps/Minutes 30 sec 1 Supine Exercise Name pelvic tilt Reps/Minutes 10 Standing Exercises 1 Standing Exercise Name wall posture Manual Therapy Treatment Soft Tissue Mobilization right piriformis Body Location piriformi & glutes along sacrum Mobilization Type Sustained Pressure,Trigger Point Release Body Position left sidelying Self-Care/Home Management Treatment Education Other Education edu for tennis ball massage PT-OP-R Modalities Start: 10/02/19 10:35 Freq: Status: Active Protocol: Document 10/12/19 11:20 [facility] (Rec: 10/12/19 12:08 [facility] [id number]) Hot Pack/Cold Pack Treatment Hot Pack Location lumboscral spine Patient Position Hooklying Treatment Duration (minutes) 15 Patient Tolerance Good PT-OP-T Assessment and Plan Start: 10/02/19 10:35 Freq: Status: Active Protocol: Document 10/12/19 11:20 [facility] (Rec: 10/12/19 12:08 [facility] [id number]) Physical Therapy Assessment Goals Oswestry disability index score Impairment Activity intolerance, Oswestry disability index score 62% Fdc Goal (LTG) decrease score to no greater than 30% to help patient resume prior level of function One Impairment LE and core muscle weakness Short Term Goal (STG) Patient able to tolerate HEP for purposes of core and LE strengthening STG Duration 11/02/19 Fdc Goal (LTG) Patient to demonstrate improvement in muscle strength throughout core and LE's to at least 4+/5 to allow for return to usual activities. LTG Duration 01/02/20 Antalgic gait Impairment antalgic gait, using FWW Fdc Goal (LTG) Patient able to ambulate with least restrictive assistive device with mninimal to no limp LTG Duration 12 wks Physical Therapy Plan Frequency and Duration Frequency of Treatment 2x/Week Duration of Treatment 12 weeks Plan of Care Start Date 10/02/19 Plan of Care End Date 01/02/20 Next Visit Focus/Plan Next Note Type Treatment Note Next Visit Plan cont to progress core & work on posture & use manual for dec pain
--- NOTE | 2019-10-17 16:44 | PT.OTN ---
Current Diagnoses Low back pain (10/17/19) Difficulty in walking, not elsewhere classified (10/17/19) Weakness (10/17/19) Arthrodesis status (10/17/19) Physical Therapy Treatment Note PT-OP-A Visit Information Start: 10/02/19 10:35 Freq: Status: Active Protocol: Document 10/17/19 13:52 [facility] (Rec: 10/17/19 14:33 [facility] [id number]) Out-Patient Physical Therapy Visit Information Visit Information Visit Type Treatment Note Visit Start Time 13:45 Visit Stop Time 14:45 Total Visit Minutes 60 Visit Number 5 Number of [employer] WORKER Visits 0 Evaluation Information Evaluation Date 10/02/19 Precautions Precautions PMH includes bilateral shoulder pain s/p RC surgeries , history arthritis, blood clots, HTN, falls PT-OP-B Current Condition Start: 10/02/19 10:35 Freq: Status: Active Protocol: Document 10/02/19 10:37 [facility] (Rec: 10/02/19 11:58 [facility] [id number]) Current Condition History of Current Condition Onset Date 1 month ago. Current Complaints bilateral LB pain, right buttock and groin pain History of Current Condition Reports was out gardening for about 45 min, had onset of pain which has persisted and worsened across low back and right hip (points to ischial tuberosity and medial groin area) Worst at night, taking muscle relaxants to be able to sleep due to severe pain. Right hip popping when going up stairs (ischial tuberosity area.). Doing exercises very difficult though reports if gentle can do clamshells and hip abductions, poor tolerance for laying on back or laying on her right side. States isometric exercises or pelvic tilts cause muscle spasms. Blood tests results with low white count have caused physician to advise her to stay away from the public pool where she typically gets relief. States she thinks she may have stress fracture right foot, will be having foot x-ray. Wearing orthotics , not sure if help. Continues to be numb lateral right hip down lateral side of right LE since before back surgery last year. Occasional sharp severe pain into right foot since before back surgery. Prior Treatments and Tests 1 year ago L4-S1 fusion. October 2018 right ankle surgery, left ankle 2 years ago. Grade 1 L3 on L4 anterlisthesis. Pending PT may have injection and/or MRI; last MRI last October. Percocet; approx every other night 1/4 pill. Treatment Goals Patient/Caregiver Goals Decrease pain, return to PFL. Prior Functional Status Baseline Function- ADL's Modified Independent Baseline Function- Mobility Modified Independent Baseline Function- Gait no assistive device Current Functional Impairments (Reported) Functional Limitations- ADL's moderate to severe pain Functional Limitations- Mobility/Gait limited by back pain, hip pain , right ankle pain Functional Limitations- Recreation/ unable due to pain Hobbies PT-OP-C Subjective Start: 10/02/19 10:35 Freq: Status: Active Protocol: Document 10/17/19 13:52 [facility] (Rec: 10/17/19 14:33 [facility] [id number]) OP-PT Subjective Patient Comments Patient Comments States better after PT last session, though pain increased again today, worst immediately upon laying down at night in bed. Going to see Dr. Trejo in 1 week, also will be going to see Jame Valiente for modification or fabrication of new orthotics. Fearful of possible diagnosis of Charcot foot. States she realizes she needs to listen to recommendations from PT, MD, and her to try to pace her activity and get off her feet during the day for awhile at least 1-2 times 30-45 min . PT-OP-F Manual Assessment Start: 10/02/19 10:35 Freq: Status: Active Protocol: Document 10/02/19 10:37 [facility] (Rec: 10/03/19 09:45 [facility] [id number]) Manual Assessments Soft Tissue Assessment Soft Tissue Mobility Assessment increased soft tissue tightness throughout right buttock Joint Mobility Assessment Joint Mobility Assessment unable to lay prone for l/s assessment and has fusion L4- S1 Poor tolerance for hip mobility assessment PT-OP-G Mobility & Gait Start: 10/02/19 10:35 Freq: Status: Active Protocol: Document 10/02/19 10:37 [facility] (Rec: 10/03/19 09:45 [facility] [id number]) OP Mobility Evaluation Bed Mobility Rolling painful Supine to and from Sit painful Transfers Sit to Stand painful with decreased weight- bearing right OP Gait Assessment Gait Gait Assistance Required: Independent Distance (Feet) 50 Assistive Devices Assistive Device None Orthotic/Prosthetic Devices or Brace: Yes Gait Deviations General Gait Pattern Antalgic,Decreased Stride Length,Decreased Feet Clearance Factors Limiting Gait Function Factors Limiting Gait Function Pain Stair Climbing Evaluation Comments Stair Climbing Comments unable to toelrate PT-OP-J Posture/Palpation/Skin Start: 10/02/19 10:35 Freq: Status: Active Protocol: Document 10/02/19 10:37 [facility] (Rec: 10/03/19 09:45 [facility] [id number]) Posture Evaluation Position Standing Head/C-Spine Posture Forward Head T-Spine Posture Increased Kyphosis L-Spine Posture Flattened Shoulder Posture (L) Rounded,(R) Rounded Scapula Posture (L) Protracted,(R) Protracted Arm Posture (L) Internally Rotated,(R) Internally Rotated Pelvis Posture (R) PSIS Inferior Ankle/Foot Posture (L) Pronated,(R) Pronated Comments Posture Comments right leg 1/2 longer in supine Palpation Assessment Location Two Palpation Location bilateral lumbar spine Palpation Findings Tenderness One Palpation Location right buttock Palpation Findings Soft Tissue Tightness, Tenderness PT-OP-K Range of Motion Start: 10/02/19 10:35 Freq: Status: Active Protocol: Document 10/02/19 10:37 [facility] (Rec: 10/03/19 09:45 [facility] [id number]) Lumbar Spine Range of Motion Lumbar Spine Active Testing Position Standing ROM Limitations Pain Comments mod decrease all motions with c/o increase in pain Hip Goniometric Range of Motion Hip right passive Flexion w/Knee Flexed 110 Straight Leg Raise 60 Extension 0 Abduction 40 Internal Rotation 30 External Rotation 55 Left passive Flexion w/Knee Flexed 120 Straight Leg Raise 75 Extension 0 Abduction 40 Internal Rotation 25 External Rotation 50 Hip ROM Limitations Hip ROM Limitations Soft Tissue Tightness,Pain Comments reports burning sensation right adductors with passive abduction Knee Goniometric Range of Motion Knee gloria Knee ROM WFL Yes Ankle and Foot Goniometric Range of Motion Ankle and Foot ROM Limitations ROM Limitations Pain PT-OP-L Special Tests Start: 10/02/19 10:35 Freq: Status: Active Protocol: Document 10/02/19 10:37 [facility] (Rec: 10/03/19 09:45 [facility] [id number]) Special Tests Lumbar Spine Special Tests Stork Test Test Results positive for SI pain Straight Leg Raise Test Results positive for hamstring tightness PT-OP-M Strength Start: 10/02/19 10:35 Freq: Status: Active Protocol: Document 10/02/19 10:37 [facility] (Rec: 10/03/19 09:45 [facility] [id number]) Trunk Strength Trunk Manual Muscle Testing Reason Not Measured Pain Hip Strength Hip Manual Muscle Testing Left Flexion (L2) 4 Good Extension (S1) 3- Fair- Abduction 3+ Fair+ Adduction 3+ Fair+ External Rotation 4- Good- Internal Rotation 4- Good- Right Flexion (L2) 4 Good Extension (S1) 2+ Poor+ Abduction 2+ Poor+ External Rotation 3+ Fair+ Internal Rotation 4- Good- Comments painful Knee Strength Knee Manual Muscle Testing gloria Flexion (S2) 4+ Good+ Extension (L3) 4+ Good+ PT-OP-Q Treatments Start: 10/02/19 10:35 Freq: Status: Active Protocol: Document 10/17/19 13:52 [facility] (Rec: 10/17/19 14:33 [facility] [id number]) Cardio Equipment Recumbent Stepper (Sci-Fit) Duration (Minutes) 10 Resistance 2.0 Seat Position 11 Therapeutic Exercises Standing Exercises hip hinge Equipment Used yardstick Reps/Minutes 10x 1 Standing Exercise Name wall posture Manual Therapy Treatment Soft Tissue Mobilization right piriformis Body Location piriformi & glutes along sacrum Mobilization Type Sustained Pressure,Trigger Point Release Body Position left sidelying Self-Care/Home Management Treatment Education Other Education reviewed use of tennis ball or raquetball PT-OP-R Modalities Start: 10/02/19 10:35 Freq: Status: Active Protocol: Document 10/17/19 13:52 [facility] (Rec: 10/17/19 16:44 [facility] [id number]) Hot Pack/Cold Pack Treatment Hot Pack Location lumboscral spine Patient Position Sidelying Treatment Duration (minutes) 15 Patient Tolerance Good Comments strap PT-OP-T Assessment and Plan Start: 10/02/19 10:35 Freq: Status: Active Protocol: Document 10/17/19 13:52 [facility] (Rec: 10/17/19 14:33 [facility] [id number]) Physical Therapy Assessment Goals Oswestry disability index score Impairment Activity intolerance, Oswestry disability index score 62% Residential Goal (LTG) decrease score to no greater than 30% to help patient resume prior level of function One Impairment LE and core muscle weakness Short Term Goal (STG) Patient able to tolerate HEP for purposes of core and LE strengthening STG Duration 11/02/19 Construction Trades Teacher Goal (LTG) Patient to demonstrate improvement in muscle strength throughout core and LE's to at least 4+/5 to allow for return to usual activities. LTG Duration 01/02/20 Antalgic gait Impairment antalgic gait, using FWW Construction Trades Teacher Goal (LTG) Patient able to ambulate with least restrictive assistive device with mninimal to no limp LTG Duration 12 wks Assessment Summary Assessment Decreased back, hip, pelvic pain with manual treatment, compliant to HEP. Feel altered foot biomechanics, postural patterns and movement patterns and excessive time on feet all highly contributory to patient's pain . Physical Therapy Plan Frequency and Duration Frequency of Treatment 2x/Week Duration of Treatment 12 weeks Plan of Care Start Date 10/02/19 Plan of Care End Date 01/02/20 Next Visit Focus/Plan Next Note Type Treatment Note Next Visit Plan Continue progression of core strengthening and stabilization, postural education and retraining, and manual techniques to decrease pain.
--- NOTE | 2019-10-19 11:19 | PT.OTN ---
Current Diagnoses Low back pain (10/19/19) Difficulty in walking, not elsewhere classified (10/19/19) Weakness (10/19/19) Arthrodesis status (10/19/19) Physical Therapy Treatment Note PT-OP-A Visit Information Start: 10/02/19 10:35 Freq: Status: Active Protocol: Document 10/19/19 10:39 LR (Rec: 10/19/19 11:18 [facility] [id number]) Out-Patient Physical Therapy Visit Information Visit Information Visit Type Treatment Note Visit Start Time 10:35 Visit Stop Time 11:30 Total Visit Minutes 55 Visit Number 6 Number of EKG MONITOR Visits 0 PT-OP-B Current Condition Start: 10/02/19 10:35 Freq: Status: Active Protocol: Document 10/02/19 10:37 SAK (Rec: 10/02/19 11:58 SAK [id number]) Current Condition History of Current Condition Onset Date 1 month ago. Current Complaints bilateral LB pain, right buttock and groin pain History of Current Condition Reports was out gardening for about 45 min, had onset of pain which has persisted and worsened across low back and right hip (points to ischial tuberosity and medial groin area) Worst at night, taking muscle relaxants to be able to sleep due to severe pain. Right hip popping when going up stairs (ischial tuberosity area.). Doing exercises very difficult though reports if gentle can do clamshells and hip abductions, poor tolerance for laying on back or laying on her right side. States isometric exercises or pelvic tilts cause muscle spasms. Blood tests results with low white count have caused physician to advise her to stay away from the public pool where she typically gets relief. States she thinks she may have stress fracture right foot, will be having foot x-ray. Wearing orthotics , not sure if help. Continues to be numb lateral right hip down lateral side of right LE since before back surgery last year. Occasional sharp severe pain into right foot since before back surgery. Prior Treatments and Tests 1 year ago L4-S1 fusion. October 2018 right ankle surgery, left ankle 2 years ago. Grade 1 L3 on L4 anterlisthesis. Pending PT may have injection and/or MRI; last MRI last October. Percocet; approx every other night 1/4 pill. Treatment Goals Patient/Caregiver Goals Decrease pain, return to PFL. Prior Functional Status Baseline Function- ADL's Modified Independent Baseline Function- Mobility Modified Independent Baseline Function- Gait no assistive device Current Functional Impairments (Reported) Functional Limitations- ADL's moderate to severe pain Functional Limitations- Mobility/Gait limited by back pain, hip pain , right ankle pain Functional Limitations- Recreation/ unable due to pain Hobbies PT-OP-C Subjective Start: 10/02/19 10:35 Freq: Status: Active Protocol: Document 10/19/19 10:39 [facility] (Rec: 10/19/19 11:18 [facility] [id number]) OP-PT Subjective Patient Comments Patient Comments 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 She has been getting off her feet more since last time PT discussed this. Pt reprots she is having a lot of pain at night and has had some R post leg weakness this AM when she got up. PT-OP-F Manual Assessment Start: 10/02/19 10:35 Freq: Status: Active Protocol: Document 10/02/19 10:37 SAK (Rec: 10/03/19 09:45 [facility] [id number]) Manual Assessments Soft Tissue Assessment Soft Tissue Mobility Assessment increased soft tissue tightness throughout right buttock Joint Mobility Assessment Joint Mobility Assessment unable to lay prone for l/s assessment and has fusion L4- S1 Poor tolerance for hip mobility assessment PT-OP-G Mobility & Gait Start: 10/02/19 10:35 Freq: Status: Active Protocol: Document 10/02/19 10:37 SAK (Rec: 10/03/19 09:45 SAK [id number]) OP Mobility Evaluation Bed Mobility Rolling painful Supine to and from Sit painful Transfers Sit to Stand painful with decreased weight- bearing right OP Gait Assessment Gait Gait Assistance Required: Independent Distance (Feet) 50 Assistive Devices Assistive Device None Orthotic/Prosthetic Devices or Brace: Yes Gait Deviations General Gait Pattern Antalgic,Decreased Stride Length,Decreased Feet Clearance Factors Limiting Gait Function Factors Limiting Gait Function Pain Stair Climbing Evaluation Comments Stair Climbing Comments unable to toelrate PT-OP-J Posture/Palpation/Skin Start: 10/02/19 10:35 Freq: Status: Active Protocol: Document 10/02/19 10:37 SAK (Rec: 10/03/19 09:45 SAK [id number]) Posture Evaluation Position Standing Head/C-Spine Posture Forward Head T-Spine Posture Increased Kyphosis L-Spine Posture Flattened Shoulder Posture (L) Rounded,(R) Rounded Scapula Posture (L) Protracted,(R) Protracted Arm Posture (L) Internally Rotated,(R) Internally Rotated Pelvis Posture (R) PSIS Inferior Ankle/Foot Posture (L) Pronated,(R) Pronated Comments Posture Comments right leg 1/2 longer in supine Palpation Assessment Location Two Palpation Location bilateral lumbar spine Palpation Findings Tenderness One Palpation Location right buttock Palpation Findings Soft Tissue Tightness, Tenderness PT-OP-K Range of Motion Start: 10/02/19 10:35 Freq: Status: Active Protocol: Document 10/02/19 10:37 SAK (Rec: 10/03/19 09:45 [facility] [id number]) Lumbar Spine Range of Motion Lumbar Spine Active Testing Position Standing ROM Limitations Pain Comments mod decrease all motions with c/o increase in pain Hip Goniometric Range of Motion Hip right passive Flexion w/Knee Flexed 110 Straight Leg Raise 60 Extension 0 Abduction 40 Internal Rotation 30 External Rotation 55 Left passive Flexion w/Knee Flexed 120 Straight Leg Raise 75 Extension 0 Abduction 40 Internal Rotation 25 External Rotation 50 Hip ROM Limitations Hip ROM Limitations Soft Tissue Tightness,Pain Comments reports burning sensation right adductors with passive abduction Knee Goniometric Range of Motion Knee gloria Knee ROM WFL Yes Ankle and Foot Goniometric Range of Motion Ankle and Foot ROM Limitations ROM Limitations Pain PT-OP-L Special Tests Start: 10/02/19 10:35 Freq: Status: Active Protocol: Document 10/02/19 10:37 SAK (Rec: 10/03/19 09:45 [facility] [id number]) Special Tests Lumbar Spine Special Tests Stork Test Test Results positive for SI pain Straight Leg Raise Test Results positive for hamstring tightness PT-OP-M Strength Start: 10/02/19 10:35 Freq: Status: Active Protocol: Document 10/02/19 10:37 SAK (Rec: 10/03/19 09:45 [facility] [id number]) Trunk Strength Trunk Manual Muscle Testing Reason Not Measured Pain Hip Strength Hip Manual Muscle Testing Left Flexion (L2) 4 Good Extension (S1) 3- Fair- Abduction 3+ Fair+ Adduction 3+ Fair+ External Rotation 4- Good- Internal Rotation 4- Good- Right Flexion (L2) 4 Good Extension (S1) 2+ Poor+ Abduction 2+ Poor+ External Rotation 3+ Fair+ Internal Rotation 4- Good- Comments painful Knee Strength Knee Manual Muscle Testing gloria Flexion (S2) 4+ Good+ Extension (L3) 4+ Good+ PT-OP-Q Treatments Start: 10/02/19 10:35 Freq: Status: Active Protocol: Document 10/19/19 10:39 [facility] (Rec: 10/19/19 11:18 [facility] [id number]) Cardio Equipment Recumbent Elliptical (Biodex) Duration (Minutes) 8 Resistance 2 Seat Position 7 Therapeutic Exercises Standing Exercises hip hinge Equipment Used yardstick Reps/Minutes 10x HC/arch stretch Standing Exercise Name calf stretch Side bilateral Reps/Minutes 30 sec 1 Standing Exercise Name wall posture Manual Therapy Treatment Soft Tissue Mobilization right lumbar paraspinals Body Location paraspinals & QL B into sacrum Mobilization Type Myofascial Release,Rolling Body Position Sidelying Comments Reported decrease in pain right piriformis Body Location piriformi & glutes along sacrum Mobilization Type Sustained Pressure,Trigger Point Release Body Position left sidelying PT-OP-R Modalities Start: 10/02/19 10:35 Freq: Status: Active Protocol: Document 10/19/19 10:39 [facility] (Rec: 10/19/19 11:19 [facility] [id number]) Hot Pack/Cold Pack Treatment Hot Pack Location lumboscral spine & r hip Patient Position Sidelying Treatment Duration (minutes) 15 Patient Tolerance Good Comments strap PT-OP-T Assessment and Plan Start: 10/02/19 10:35 Freq: Status: Active Protocol: Document 10/19/19 10:39 [facility] (Rec: 10/19/19 11:18 [facility] [id number]) Physical Therapy Assessment Goals Oswestry disability index score Impairment Activity intolerance, Oswestry disability index score 62% Employee Benefits Coordinator Goal (LTG) decrease score to no greater than 30% to help patient resume prior level of function One Impairment LE and core muscle weakness Short Term Goal (STG) Patient able to tolerate HEP for purposes of core and LE strengthening STG Duration 11/02/19 Longterm Goal (LTG) Patient to demonstrate improvement in muscle strength throughout core and LE's to at least 4+/5 to allow for return to usual activities. LTG Duration 01/02/20 Antalgic gait Impairment antalgic gait, using FWW Longterm Goal (LTG) Patient able to ambulate with least restrictive assistive device with mninimal to no limp LTG Duration 12 wks Assessment Summary Assessment Pt reports relief with manual treatment. Pt cueed to avoid lumbar ext during exercises because seh would extend lumbar spine during glute contraction so worked on this at wall and with hip hinges Physical Therapy Plan Frequency and Duration Frequency of Treatment 2x/Week Duration of Treatment 12 weeks Plan of Care Start Date 10/02/19 Plan of Care End Date 01/02/20 Next Visit Focus/Plan Next Note Type Treatment Note Next Visit Plan Continue progression of core strengthening and stabilization, postural education and retraining, and manual techniques to decrease pain.
--- NOTE | 2019-10-26 08:17 | PT.OTN ---
Current Diagnoses Low back pain (10/26/19) Difficulty in walking, not elsewhere classified (10/26/19) Weakness (10/26/19) Arthrodesis status (10/26/19) Physical Therapy Treatment Note PT-OP-A Visit Information Start: 10/02/19 10:35 Freq: Status: Active Protocol: Document 10/26/19 07:27 [facility] (Rec: 10/26/19 08:17 [facility] [id number]) Out-Patient Physical Therapy Visit Information Visit Information Visit Type Treatment Note Visit Start Time 07:30 Visit Stop Time 08:27 Total Visit Minutes 57 Visit Number 7 Number of WEAVER NEEDLE LOOM Visits 0 PT-OP-B Current Condition Start: 10/02/19 10:35 Freq: Status: Active Protocol: Document 10/02/19 10:37 SAK (Rec: 10/02/19 11:58 SAK [id number]) Current Condition History of Current Condition Onset Date 1 month ago. Current Complaints bilateral LB pain, right buttock and groin pain History of Current Condition Reports was out gardening for about 45 min, had onset of pain which has persisted and worsened across low back and right hip (points to ischial tuberosity and medial groin area) Worst at night, taking muscle relaxants to be able to sleep due to severe pain. Right hip popping when going up stairs (ischial tuberosity area.). Doing exercises very difficult though reports if gentle can do clamshells and hip abductions, poor tolerance for laying on back or laying on her right side. States isometric exercises or pelvic tilts cause muscle spasms. Blood tests results with low white count have caused physician to advise her to stay away from the public pool where she typically gets relief. States she thinks she may have stress fracture right foot, will be having foot x-ray. Wearing orthotics , not sure if help. Continues to be numb lateral right hip down lateral side of right LE since before back surgery last year. Occasional sharp severe pain into right foot since before back surgery. Prior Treatments and Tests 1 year ago L4-S1 fusion. October 2018 right ankle surgery, left ankle 2 years ago. Grade 1 L3 on L4 anterlisthesis. Pending PT may have injection and/or MRI; last MRI last October. Percocet; approx every other night 1/4 pill. Treatment Goals Patient/Caregiver Goals Decrease pain, return to PFL. Prior Functional Status Baseline Function- ADL's Modified Independent Baseline Function- Mobility Modified Independent Baseline Function- Gait no assistive device Current Functional Impairments (Reported) Functional Limitations- ADL's moderate to severe pain Functional Limitations- Mobility/Gait limited by back pain, hip pain , right ankle pain Functional Limitations- Recreation/ unable due to pain Hobbies PT-OP-C Subjective Start: 10/02/19 10:35 Freq: Status: Active Protocol: Document 10/26/19 07:27 [facility] (Rec: 10/26/19 08:17 [facility] [id number]) OP-PT Subjective Patient Comments Patient Comments Pt reports she felt burning at night and thoughout it was a bug bite but woke up and was numb in R buttocks and down post leg. She is going to call MD later today. PT-OP-F Manual Assessment Start: 10/02/19 10:35 Freq: Status: Active Protocol: Document 10/02/19 10:37 SAK (Rec: 10/03/19 09:45 SAK [id number]) Manual Assessments Soft Tissue Assessment Soft Tissue Mobility Assessment increased soft tissue tightness throughout right buttock Joint Mobility Assessment Joint Mobility Assessment unable to lay prone for l/s assessment and has fusion L4- S1 Poor tolerance for hip mobility assessment PT-OP-G Mobility & Gait Start: 10/02/19 10:35 Freq: Status: Active Protocol: Document 10/02/19 10:37 SAK (Rec: 10/03/19 09:45 SAK [id number]) OP Mobility Evaluation Bed Mobility Rolling painful Supine to and from Sit painful Transfers Sit to Stand painful with decreased weight- bearing right OP Gait Assessment Gait Gait Assistance Required: Independent Distance (Feet) 50 Assistive Devices Assistive Device None Orthotic/Prosthetic Devices or Brace: Yes Gait Deviations General Gait Pattern Antalgic,Decreased Stride Length,Decreased Feet Clearance Factors Limiting Gait Function Factors Limiting Gait Function Pain Stair Climbing Evaluation Comments Stair Climbing Comments unable to toelrate PT-OP-J Posture/Palpation/Skin Start: 10/02/19 10:35 Freq: Status: Active Protocol: Document 10/02/19 10:37 SAK (Rec: 10/03/19 09:45 SAK [id number]) Posture Evaluation Position Standing Head/C-Spine Posture Forward Head T-Spine Posture Increased Kyphosis L-Spine Posture Flattened Shoulder Posture (L) Rounded,(R) Rounded Scapula Posture (L) Protracted,(R) Protracted Arm Posture (L) Internally Rotated,(R) Internally Rotated Pelvis Posture (R) PSIS Inferior Ankle/Foot Posture (L) Pronated,(R) Pronated Comments Posture Comments right leg 1/2 longer in supine Palpation Assessment Location Two Palpation Location bilateral lumbar spine Palpation Findings Tenderness One Palpation Location right buttock Palpation Findings Soft Tissue Tightness, Tenderness PT-OP-K Range of Motion Start: 10/02/19 10:35 Freq: Status: Active Protocol: Document 10/02/19 10:37 [facility] (Rec: 10/03/19 09:45 [facility] [id number]) Lumbar Spine Range of Motion Lumbar Spine Active Testing Position Standing ROM Limitations Pain Comments mod decrease all motions with c/o increase in pain Hip Goniometric Range of Motion Hip right passive Flexion w/Knee Flexed 110 Straight Leg Raise 60 Extension 0 Abduction 40 Internal Rotation 30 External Rotation 55 Left passive Flexion w/Knee Flexed 120 Straight Leg Raise 75 Extension 0 Abduction 40 Internal Rotation 25 External Rotation 50 Hip ROM Limitations Hip ROM Limitations Soft Tissue Tightness,Pain Comments reports burning sensation right adductors with passive abduction Knee Goniometric Range of Motion Knee gloria Knee ROM WFL Yes Ankle and Foot Goniometric Range of Motion Ankle and Foot ROM Limitations ROM Limitations Pain PT-OP-L Special Tests Start: 10/02/19 10:35 Freq: Status: Active Protocol: Document 10/02/19 10:37 [facility] (Rec: 10/03/19 09:45 [facility] [id number]) Special Tests Lumbar Spine Special Tests Stork Test Test Results positive for SI pain Straight Leg Raise Test Results positive for hamstring tightness PT-OP-M Strength Start: 10/02/19 10:35 Freq: Status: Active Protocol: Document 10/02/19 10:37 SAK (Rec: 10/03/19 09:45 [facility] [id number]) Trunk Strength Trunk Manual Muscle Testing Reason Not Measured Pain Hip Strength Hip Manual Muscle Testing Left Flexion (L2) 4 Good Extension (S1) 3- Fair- Abduction 3+ Fair+ Adduction 3+ Fair+ External Rotation 4- Good- Internal Rotation 4- Good- Right Flexion (L2) 4 Good Extension (S1) 2+ Poor+ Abduction 2+ Poor+ External Rotation 3+ Fair+ Internal Rotation 4- Good- Comments painful Knee Strength Knee Manual Muscle Testing gloria Flexion (S2) 4+ Good+ Extension (L3) 4+ Good+ PT-OP-Q Treatments Start: 10/02/19 10:35 Freq: Status: Active Protocol: Document 10/26/19 07:27 [facility] (Rec: 10/26/19 08:17 [facility] [id number]) Cardio Equipment Recumbent Stepper (Sci-Fit) Duration (Minutes) 10 Resistance 2.0 Seat Position 11 Therapeutic Exercises Supine Exercises HS stretch Supine Exercise Name acive HS stretch/sciatic n glide Side bilateral Reps/Minutes 10 6 Supine Exercise Name TA w/add of pillow Side bilateral Reps/Minutes 3 sec x10 Manual Therapy Treatment Soft Tissue Mobilization right piriformis Body Location piriformi & glutes along sacrum & coccyx Mobilization Type Sustained Pressure,Trigger Point Release Intensity/Depth Moderate Body Position left sidelying Joint Mobilizations coccyx Direction distraction & ERNIE Grade II PT-OP-R Modalities Start: 10/02/19 10:35 Freq: Status: Active Protocol: Document 10/26/19 07:27 [facility] (Rec: 10/26/19 08:17 [facility] [id number]) Hot Pack/Cold Pack Treatment Hot Pack Location lumboscral spine & r hip Patient Position Sidelying Treatment Duration (minutes) 15 Patient Tolerance Good Comments strap PT-OP-T Assessment and Plan Start: 10/02/19 10:35 Freq: Status: Active Protocol: Document 10/26/19 07:27 [facility] (Rec: 10/26/19 08:17 [facility] [id number]) Physical Therapy Assessment Goals Oswestry disability index score Impairment Activity intolerance, Oswestry disability index score 62% [facility] Goal (LTG) decrease score to no greater than 30% to help patient resume prior level of function One Impairment LE and core muscle weakness Short Term Goal (STG) Patient able to tolerate HEP for purposes of core and LE strengthening STG Duration 11/02/19 Paste Up Worker Goal (LTG) Patient to demonstrate improvement in muscle strength throughout core and LE's to at least 4+/5 to allow for return to usual activities. LTG Duration 01/02/20 Antalgic gait Impairment antalgic gait, using FWW Paste Up Worker Goal (LTG) Patient able to ambulate with least restrictive assistive device with mninimal to no limp LTG Duration 12 wks Assessment Summary Assessment Pt had significant tightness in R gluteals today especially along coccyx. WHen doing gentle mobs on coccyx, pt noted she feels like that is where her numbness is coming from. D/t signifiacnt fascia, and neural connections, it is possible that coccyx may be causing some symptoms d/t definate rotation found todya and possible other joint restrictions that would have to be assessed in another posiion Physical Therapy Plan Frequency and Duration Frequency of Treatment 2x/Week Duration of Treatment 12 weeks Plan of Care Start Date 10/02/19 Plan of Care End Date 01/02/20 Next Visit Focus/Plan Next Note Type Treatment Note Next Visit Plan Continue progression of core strengthening and stabilization, postural education and retraining, and manual techniques to decrease pain.
--- NOTE | 2019-10-30 16:26 | PT.OTN ---
Current Diagnoses Low back pain (10/30/19) Difficulty in walking, not elsewhere classified (10/30/19) Weakness (10/30/19) Arthrodesis status (10/30/19) Physical Therapy Treatment Note PT-OP-A Visit Information Start: 10/02/19 10:35 Freq: Status: Active Protocol: Document 10/30/19 09:50 SAK (Rec: 10/30/19 10:34 SAK [id number]) Out-Patient Physical Therapy Visit Information Visit Information Visit Type Treatment Note Visit Start Time 09:48 Visit Stop Time 10:43 Total Visit Minutes 55 Visit Number 8 Number of MECHATRONICS TECHNOLOGIST Visits 0 PT-OP-B Current Condition Start: 10/02/19 10:35 Freq: Status: Active Protocol: Document 10/02/19 10:37 SAK (Rec: 10/02/19 11:58 SAK [id number]) Current Condition History of Current Condition Onset Date 1 month ago. Current Complaints bilateral LB pain, right buttock and groin pain History of Current Condition Reports was out gardening for about 45 min, had onset of pain which has persisted and worsened across low back and right hip (points to ischial tuberosity and medial groin area) Worst at night, taking muscle relaxants to be able to sleep due to severe pain. Right hip popping when going up stairs (ischial tuberosity area.). Doing exercises very difficult though reports if gentle can do clamshells and hip abductions, poor tolerance for laying on back or laying on her right side. States isometric exercises or pelvic tilts cause muscle spasms. Blood tests results with low white count have caused physician to advise her to stay away from the public pool where she typically gets relief. States she thinks she may have stress fracture right foot, will be having foot x-ray. Wearing orthotics , not sure if help. Continues to be numb lateral right hip down lateral side of right LE since before back surgery last year. Occasional sharp severe pain into right foot since before back surgery. Prior Treatments and Tests 1 year ago L4-S1 fusion. October 2018 right ankle surgery, left ankle 2 years ago. Grade 1 L3 on L4 anterlisthesis. Pending PT may have injection and/or MRI; last MRI last October. Percocet; approx every other night 1/4 pill. Treatment Goals Patient/Caregiver Goals Decrease pain, return to PFL. Prior Functional Status Baseline Function- ADL's Modified Independent Baseline Function- Mobility Modified Independent Baseline Function- Gait no assistive device Current Functional Impairments (Reported) Functional Limitations- ADL's moderate to severe pain Functional Limitations- Mobility/Gait limited by back pain, hip pain , right ankle pain Functional Limitations- Recreation/ unable due to pain Hobbies PT-OP-C Subjective Start: 10/02/19 10:35 Freq: Status: Active Protocol: Document 10/30/19 09:50 SAK (Rec: 10/30/19 10:34 [facility] [id number]) OP-PT Subjective Patient Comments Patient Comments Less pain but states she continues to have the numbness and burning right buttock an down side and back of her right leg. Sees physician for feet and for back this week. Fell yesterday while stepping down into the garage; states she feels unsteady while walking especially down stairs or off a curb. PT-OP-F Manual Assessment Start: 10/02/19 10:35 Freq: Status: Active Protocol: Document 10/02/19 10:37 SAK (Rec: 10/03/19 09:45 [facility] [id number]) Manual Assessments Soft Tissue Assessment Soft Tissue Mobility Assessment increased soft tissue tightness throughout right buttock Joint Mobility Assessment Joint Mobility Assessment unable to lay prone for l/s assessment and has fusion L4- S1 Poor tolerance for hip mobility assessment PT-OP-G Mobility & Gait Start: 10/02/19 10:35 Freq: Status: Active Protocol: Document 10/02/19 10:37 SAK (Rec: 10/03/19 09:45 [facility] [id number]) OP Mobility Evaluation Bed Mobility Rolling painful Supine to and from Sit painful Transfers Sit to Stand painful with decreased weight- bearing right OP Gait Assessment Gait Gait Assistance Required: Independent Distance (Feet) 50 Assistive Devices Assistive Device None Orthotic/Prosthetic Devices or Brace: Yes Gait Deviations General Gait Pattern Antalgic,Decreased Stride Length,Decreased Feet Clearance Factors Limiting Gait Function Factors Limiting Gait Function Pain Stair Climbing Evaluation Comments Stair Climbing Comments unable to toelrate PT-OP-J Posture/Palpation/Skin Start: 10/02/19 10:35 Freq: Status: Active Protocol: Document 10/02/19 10:37 SAK (Rec: 10/03/19 09:45 [facility] [id number]) Posture Evaluation Position Standing Head/C-Spine Posture Forward Head T-Spine Posture Increased Kyphosis L-Spine Posture Flattened Shoulder Posture (L) Rounded,(R) Rounded Scapula Posture (L) Protracted,(R) Protracted Arm Posture (L) Internally Rotated,(R) Internally Rotated Pelvis Posture (R) PSIS Inferior Ankle/Foot Posture (L) Pronated,(R) Pronated Comments Posture Comments right leg 1/2 longer in supine Palpation Assessment Location Two Palpation Location bilateral lumbar spine Palpation Findings Tenderness One Palpation Location right buttock Palpation Findings Soft Tissue Tightness, Tenderness PT-OP-K Range of Motion Start: 10/02/19 10:35 Freq: Status: Active Protocol: Document 10/02/19 10:37 SAK (Rec: 10/03/19 09:45 [facility] [id number]) Lumbar Spine Range of Motion Lumbar Spine Active Testing Position Standing ROM Limitations Pain Comments mod decrease all motions with c/o increase in pain Hip Goniometric Range of Motion Hip right passive Flexion w/Knee Flexed 110 Straight Leg Raise 60 Extension 0 Abduction 40 Internal Rotation 30 External Rotation 55 Left passive Flexion w/Knee Flexed 120 Straight Leg Raise 75 Extension 0 Abduction 40 Internal Rotation 25 External Rotation 50 Hip ROM Limitations Hip ROM Limitations Soft Tissue Tightness,Pain Comments reports burning sensation right adductors with passive abduction Knee Goniometric Range of Motion Knee gloria Knee ROM WFL Yes Ankle and Foot Goniometric Range of Motion Ankle and Foot ROM Limitations ROM Limitations Pain PT-OP-L Special Tests Start: 10/02/19 10:35 Freq: Status: Active Protocol: Document 10/02/19 10:37 SAK (Rec: 10/03/19 09:45 [facility] [id number]) Special Tests Lumbar Spine Special Tests Stork Test Test Results positive for SI pain Straight Leg Raise Test Results positive for hamstring tightness PT-OP-M Strength Start: 10/02/19 10:35 Freq: Status: Active Protocol: Document 10/02/19 10:37 SAK (Rec: 10/03/19 09:45 [facility] [id number]) Trunk Strength Trunk Manual Muscle Testing Reason Not Measured Pain Hip Strength Hip Manual Muscle Testing Left Flexion (L2) 4 Good Extension (S1) 3- Fair- Abduction 3+ Fair+ Adduction 3+ Fair+ External Rotation 4- Good- Internal Rotation 4- Good- Right Flexion (L2) 4 Good Extension (S1) 2+ Poor+ Abduction 2+ Poor+ External Rotation 3+ Fair+ Internal Rotation 4- Good- Comments painful Knee Strength Knee Manual Muscle Testing gloria Flexion (S2) 4+ Good+ Extension (L3) 4+ Good+ PT-OP-Q Treatments Start: 10/02/19 10:35 Freq: Status: Active Protocol: Document 10/30/19 09:50 SAK (Rec: 10/30/19 10:34 SAK [id number]) Cardio Equipment Recumbent Stepper (Sci-Fit) Duration (Minutes) 10 Resistance 2.0 Seat Position 11 Therapeutic Exercises Supine Exercises IT band stretch Reps/Minutes 2x30 Comments manual piriformis stretch Reps/Minutes 2x30 Comments manual HS stretch Supine Exercise Name acive HS stretch/sciatic n glide Side bilateral Reps/Minutes 10 5 Supine Exercise Name Abdominal brace, march Side bilateral Reps/Minutes 10 x each Comments emphasis on pushing through opposite LE for core engagement and stability Gait Training Gait Activity gait with straight cane Description level, step ups and downs Device Used straight cane Surface level, 4 box, 3 firm mat Manual Therapy Treatment Soft Tissue Mobilization right piriformis Body Location piriformi & glutes along sacrum & coccyx Mobilization Type Sustained Pressure,Trigger Point Release Intensity/Depth Moderate Body Position left sidelying PT-OP-R Modalities Start: 10/02/19 10:35 Freq: Status: Active Protocol: Document 10/30/19 09:50 [facility] (Rec: 10/30/19 10:34 [facility] [id number]) Hot Pack/Cold Pack Treatment Hot Pack Location lumboscral spine & r hip Patient Position Sidelying Treatment Duration (minutes) 15 Patient Tolerance Good Comments strap PT-OP-T Assessment and Plan Start: 10/02/19 10:35 Freq: Status: Active Protocol: Document 10/30/19 09:50 [facility] (Rec: 10/30/19 10:34 [facility] [id number]) Physical Therapy Assessment Goals Oswestry disability index score Impairment Activity intolerance, Oswestry disability index score 62% [facility] Goal (LTG) decrease score to no greater than 30% to help patient resume prior level of function One Impairment LE and core muscle weakness Short Term Goal (STG) Patient able to tolerate HEP for purposes of core and LE strengthening STG Duration 11/02/19 [facility] Goal (LTG) Patient to demonstrate improvement in muscle strength throughout core and LE's to at least 4+/5 to allow for return to usual activities. LTG Duration 01/02/20 Antalgic gait Impairment antalgic gait, using FWW [facility]entiary Goal (LTG) Patient able to ambulate with least restrictive assistive device with mninimal to no limp LTG Duration 12 wks Assessment Summary Assessment Patient had abrasion left lower lumbar region with mild redness, no increased warmth. Continues to have popping at times L34 region with movement of LE's. Improved stability of gait with use of cane and patient reluctantly admitting she needs to use cane as PT and have repeatedly urged. Sees physician both for feet and low back this week. Physical Therapy Plan Frequency and Duration Frequency of Treatment 2x/Week Duration of Treatment 12 weeks Plan of Care Start Date 10/02/19 Plan of Care End Date 01/02/20 Next Visit Focus/Plan Next Note Type Treatment Note Next Visit Plan Discuss outcome of physician's visits and any recommendations. Continue PT per POC pending any further recommendations from physicians.
--- NOTE | 2019-11-02 11:01 | PT.OTN ---
Current Diagnoses Low back pain (11/02/19) Difficulty in walking, not elsewhere classified (11/02/19) Weakness (11/02/19) Arthrodesis status (11/02/19) Physical Therapy Treatment Note PT-OP-A Visit Information Start: 10/02/19 10:35 Freq: Status: Active Protocol: Document 11/02/19 09:05 SAK (Rec: 11/02/19 09:47 SAK [id number]) Out-Patient Physical Therapy Visit Information Visit Information Visit Type Treatment Note Visit Start Time 09:48 Visit Stop Time 10:43 Total Visit Minutes 59 Visit Number 8 Number of GRAVITY PROSPECTOR Visits 0 PT-OP-B Current Condition Start: 10/02/19 10:35 Freq: Status: Active Protocol: Document 10/02/19 10:37 SAK (Rec: 10/02/19 11:58 SAK [id number]) Current Condition History of Current Condition Onset Date 1 month ago. Current Complaints bilateral LB pain, right buttock and groin pain History of Current Condition Reports was out gardening for about 45 min, had onset of pain which has persisted and worsened across low back and right hip (points to ischial tuberosity and medial groin area) Worst at night, taking muscle relaxants to be able to sleep due to severe pain. Right hip popping when going up stairs (ischial tuberosity area.). Doing exercises very difficult though reports if gentle can do clamshells and hip abductions, poor tolerance for laying on back or laying on her right side. States isometric exercises or pelvic tilts cause muscle spasms. Blood tests results with low white count have caused physician to advise her to stay away from the public pool where she typically gets relief. States she thinks she may have stress fracture right foot, will be having foot x-ray. Wearing orthotics , not sure if help. Continues to be numb lateral right hip down lateral side of right LE since before back surgery last year. Occasional sharp severe pain into right foot since before back surgery. Prior Treatments and Tests 1 year ago L4-S1 fusion. October 2018 right ankle surgery, left ankle 2 years ago. Grade 1 L3 on L4 anterlisthesis. Pending PT may have injection and/or MRI; last MRI last October. Percocet; approx every other night 1/4 pill. Treatment Goals Patient/Caregiver Goals Decrease pain, return to PFL. Prior Functional Status Baseline Function- ADL's Modified Independent Baseline Function- Mobility Modified Independent Baseline Function- Gait no assistive device Current Functional Impairments (Reported) Functional Limitations- ADL's moderate to severe pain Functional Limitations- Mobility/Gait limited by back pain, hip pain , right ankle pain Functional Limitations- Recreation/ unable due to pain Hobbies PT-OP-C Subjective Start: 10/02/19 10:35 Freq: Status: Active Protocol: Document 11/02/19 09:05 [facility] (Rec: 11/02/19 09:47 [facility] [id number]) OP-PT Subjective Patient Comments Patient Comments X-ray results show broken screws, standing scan ordered for foot imaging. Doctor Jeffrey recommending removal of screws. physician Dr. Delatorre says L3 and L4 collapsing, clicking she is hearing is bone rubbing. So far no nerve symptoms. SI x-ray showed mild osteoarthritis as well as calcific tendinosis gloria gluteal tendons at insertion. PT-OP-F Manual Assessment Start: 10/02/19 10:35 Freq: Status: Active Protocol: Document 10/02/19 10:37 [facility] (Rec: 10/03/19 09:45 [facility] [id number]) Manual Assessments Soft Tissue Assessment Soft Tissue Mobility Assessment increased soft tissue tightness throughout right buttock Joint Mobility Assessment Joint Mobility Assessment unable to lay prone for l/s assessment and has fusion L4- S1 Poor tolerance for hip mobility assessment PT-OP-G Mobility & Gait Start: 10/02/19 10:35 Freq: Status: Active Protocol: Document 10/02/19 10:37 [facility] (Rec: 10/03/19 09:45 [facility] [id number]) OP Mobility Evaluation Bed Mobility Rolling painful Supine to and from Sit painful Transfers Sit to Stand painful with decreased weight- bearing right OP Gait Assessment Gait Gait Assistance Required: Independent Distance (Feet) 50 Assistive Devices Assistive Device None Orthotic/Prosthetic Devices or Brace: Yes Gait Deviations General Gait Pattern Antalgic,Decreased Stride Length,Decreased Feet Clearance Factors Limiting Gait Function Factors Limiting Gait Function Pain Stair Climbing Evaluation Comments Stair Climbing Comments unable to toelrate PT-OP-J Posture/Palpation/Skin Start: 10/02/19 10:35 Freq: Status: Active Protocol: Document 10/02/19 10:37 [facility] (Rec: 10/03/19 09:45 [facility] [id number]) Posture Evaluation Position Standing Head/C-Spine Posture Forward Head T-Spine Posture Increased Kyphosis L-Spine Posture Flattened Shoulder Posture (L) Rounded,(R) Rounded Scapula Posture (L) Protracted,(R) Protracted Arm Posture (L) Internally Rotated,(R) Internally Rotated Pelvis Posture (R) PSIS Inferior Ankle/Foot Posture (L) Pronated,(R) Pronated Comments Posture Comments right leg 1/2 longer in supine Palpation Assessment Location Two Palpation Location bilateral lumbar spine Palpation Findings Tenderness One Palpation Location right buttock Palpation Findings Soft Tissue Tightness, Tenderness PT-OP-K Range of Motion Start: 10/02/19 10:35 Freq: Status: Active Protocol: Document 10/02/19 10:37 [facility] (Rec: 10/03/19 09:45 [facility] [id number]) Lumbar Spine Range of Motion Lumbar Spine Active Testing Position Standing ROM Limitations Pain Comments mod decrease all motions with c/o increase in pain Hip Goniometric Range of Motion Hip right passive Flexion w/Knee Flexed 110 Straight Leg Raise 60 Extension 0 Abduction 40 Internal Rotation 30 External Rotation 55 Left passive Flexion w/Knee Flexed 120 Straight Leg Raise 75 Extension 0 Abduction 40 Internal Rotation 25 External Rotation 50 Hip ROM Limitations Hip ROM Limitations Soft Tissue Tightness,Pain Comments reports burning sensation right adductors with passive abduction Knee Goniometric Range of Motion Knee gloria Knee ROM WFL Yes Ankle and Foot Goniometric Range of Motion Ankle and Foot ROM Limitations ROM Limitations Pain PT-OP-L Special Tests Start: 10/02/19 10:35 Freq: Status: Active Protocol: Document 10/02/19 10:37 [facility] (Rec: 10/03/19 09:45 [facility] [id number]) Special Tests Lumbar Spine Special Tests Stork Test Test Results positive for SI pain Straight Leg Raise Test Results positive for hamstring tightness PT-OP-M Strength Start: 10/02/19 10:35 Freq: Status: Active Protocol: Document 10/02/19 10:37 [facility] (Rec: 10/03/19 09:45 [facility] [id number]) Trunk Strength Trunk Manual Muscle Testing Reason Not Measured Pain Hip Strength Hip Manual Muscle Testing Left Flexion (L2) 4 Good Extension (S1) 3- Fair- Abduction 3+ Fair+ Adduction 3+ Fair+ External Rotation 4- Good- Internal Rotation 4- Good- Right Flexion (L2) 4 Good Extension (S1) 2+ Poor+ Abduction 2+ Poor+ External Rotation 3+ Fair+ Internal Rotation 4- Good- Comments painful Knee Strength Knee Manual Muscle Testing gloria Flexion (S2) 4+ Good+ Extension (L3) 4+ Good+ PT-OP-Q Treatments Start: 10/02/19 10:35 Freq: Status: Active Protocol: Document 11/02/19 09:05 [facility] (Rec: 11/02/19 09:47 [facility] [id number]) Cardio Equipment Recumbent Stepper (Sci-Fit) Duration (Minutes) 10 Resistance 1.0 Seat Position 11 Therapeutic Exercises Supine Exercises IT band stretch Supine Exercise Name knee straight Reps/Minutes 2x30 Comments manual piriformis stretch Reps/Minutes 2x30 Comments manual HS stretch Supine Exercise Name passive Side bilateral Reps/Minutes 10 5 Supine Exercise Name Abdominal brace, march Side bilateral Reps/Minutes 10 x each Comments emphasis on pushing through opposite LE for core engagement and stability Manual Therapy Treatment Soft Tissue Mobilization right piriformis Body Location piriformi & glutes along sacrum & coccyx Mobilization Type Sustained Pressure,Trigger Point Release Intensity/Depth Moderate Body Position left sidelying PT-OP-R Modalities Start: 10/02/19 10:35 Freq: Status: Active Protocol: Document 11/02/19 09:05 [facility] (Rec: 11/02/19 09:47 [facility] [id number]) Hot Pack/Cold Pack Treatment Hot Pack Location lumboscral spine & r hip Patient Position Sidelying Treatment Duration (minutes) 15 Patient Tolerance Good Comments strap PT-OP-T Assessment and Plan Start: 10/02/19 10:35 Freq: Status: Active Protocol: Document 11/02/19 09:05 [facility] (Rec: 11/02/19 09:47 [facility] [id number]) Physical Therapy Assessment Goals Oswestry disability index score Impairment Activity intolerance, Oswestry disability index score 62% Jail Goal (LTG) decrease score to no greater than 30% to help patient resume prior level of function One Impairment LE and core muscle weakness Short Term Goal (STG) Patient able to tolerate HEP for purposes of core and LE strengthening STG Duration 11/02/19 [facility] Goal (LTG) Patient to demonstrate improvement in muscle strength throughout core and LE's to at least 4+/5 to allow for return to usual activities. LTG Duration 01/02/20 Antalgic gait Impairment antalgic gait, using FWW Union Organiser Goal (LTG) Patient able to ambulate with least restrictive assistive device with mninimal to no limp LTG Duration 12 wks Assessment Summary Assessment x-ray results as above, will be getting scan of feet in weight-bearing. Patient and PT agreed no weight-bearing exercises at this time. Focus on core strengthening and stabilization, flexibility, manual techniques to gluts, spine, modalities. Physical Therapy Plan Frequency and Duration Frequency of Treatment 2x/Week Duration of Treatment 12 weeks Plan of Care Start Date 10/02/19 Plan of Care End Date 01/02/20 Next Visit Focus/Plan Next Note Type Treatment Note Next Visit Plan Continue PT with emphasis on spinal stabilization, hip flexibility, manual tecniques, modalities as needed to decrease back and hip/buttock pain, and improve her function .
--- NOTE | 2019-11-07 12:15 | PT.OTN ---
Current Diagnoses Low back pain (11/07/19) Difficulty in walking, not elsewhere classified (11/07/19) Weakness (11/07/19) Arthrodesis status (11/07/19) Physical Therapy Treatment Note PT-OP-A Visit Information Start: 10/02/19 10:35 Freq: Status: Active Protocol: Document 11/07/19 09:01 SAK (Rec: 11/07/19 09:45 SAK [id number]) Out-Patient Physical Therapy Visit Information Visit Information Visit Type Treatment Note Visit Start Time 09:00 Visit Stop Time 10:00 Total Visit Minutes 59 Visit Number 10 Number of ADVERTISING CAMPAIGN MANAGER Visits 0 PT-OP-B Current Condition Start: 10/02/19 10:35 Freq: Status: Active Protocol: Document 10/02/19 10:37 SAK (Rec: 10/02/19 11:58 SAK [id number]) Current Condition History of Current Condition Onset Date 1 month ago. Current Complaints bilateral LB pain, right buttock and groin pain History of Current Condition Reports was out gardening for about 45 min, had onset of pain which has persisted and worsened across low back and right hip (points to ischial tuberosity and medial groin area) Worst at night, taking muscle relaxants to be able to sleep due to severe pain. Right hip popping when going up stairs (ischial tuberosity area.). Doing exercises very difficult though reports if gentle can do clamshells and hip abductions, poor tolerance for laying on back or laying on her right side. States isometric exercises or pelvic tilts cause muscle spasms. Blood tests results with low white count have caused physician to advise her to stay away from the public pool where she typically gets relief. States she thinks she may have stress fracture right foot, will be having foot x-ray. Wearing orthotics , not sure if help. Continues to be numb lateral right hip down lateral side of right LE since before back surgery last year. Occasional sharp severe pain into right foot since before back surgery. Prior Treatments and Tests 1 year ago L4-S1 fusion. October 2018 right ankle surgery, left ankle 2 years ago. Grade 1 L3 on L4 anterlisthesis. Pending PT may have injection and/or MRI; last MRI last October. Percocet; approx every other night 1/4 pill. Treatment Goals Patient/Caregiver Goals Decrease pain, return to PFL. Prior Functional Status Baseline Function- ADL's Modified Independent Baseline Function- Mobility Modified Independent Baseline Function- Gait no assistive device Current Functional Impairments (Reported) Functional Limitations- ADL's moderate to severe pain Functional Limitations- Mobility/Gait limited by back pain, hip pain , right ankle pain Functional Limitations- Recreation/ unable due to pain Hobbies PT-OP-C Subjective Start: 10/02/19 10:35 Freq: Status: Active Protocol: Document 11/07/19 09:01 SAK (Rec: 11/07/19 09:45 [facility] [id number]) OP-PT Subjective Patient Comments Patient Comments Feels much better, able to lay on right side, less pain, and less frequent jabbing pains in low back. PT-OP-F Manual Assessment Start: 10/02/19 10:35 Freq: Status: Active Protocol: Document 10/02/19 10:37 [facility] (Rec: 10/03/19 09:45 [facility] [id number]) Manual Assessments Soft Tissue Assessment Soft Tissue Mobility Assessment increased soft tissue tightness throughout right buttock Joint Mobility Assessment Joint Mobility Assessment unable to lay prone for l/s assessment and has fusion L4- S1 Poor tolerance for hip mobility assessment PT-OP-G Mobility & Gait Start: 10/02/19 10:35 Freq: Status: Active Protocol: Document 10/02/19 10:37 [facility] (Rec: 10/03/19 09:45 [facility] [id number]) OP Mobility Evaluation Bed Mobility Rolling painful Supine to and from Sit painful Transfers Sit to Stand painful with decreased weight- bearing right OP Gait Assessment Gait Gait Assistance Required: Independent Distance (Feet) 50 Assistive Devices Assistive Device None Orthotic/Prosthetic Devices or Brace: Yes Gait Deviations General Gait Pattern Antalgic,Decreased Stride Length,Decreased Feet Clearance Factors Limiting Gait Function Factors Limiting Gait Function Pain Stair Climbing Evaluation Comments Stair Climbing Comments unable to toelrate PT-OP-J Posture/Palpation/Skin Start: 10/02/19 10:35 Freq: Status: Active Protocol: Document 10/02/19 10:37 [facility] (Rec: 10/03/19 09:45 [facility] [id number]) Posture Evaluation Position Standing Head/C-Spine Posture Forward Head T-Spine Posture Increased Kyphosis L-Spine Posture Flattened Shoulder Posture (L) Rounded,(R) Rounded Scapula Posture (L) Protracted,(R) Protracted Arm Posture (L) Internally Rotated,(R) Internally Rotated Pelvis Posture (R) PSIS Inferior Ankle/Foot Posture (L) Pronated,(R) Pronated Comments Posture Comments right leg 1/2 longer in supine Palpation Assessment Location Two Palpation Location bilateral lumbar spine Palpation Findings Tenderness One Palpation Location right buttock Palpation Findings Soft Tissue Tightness, Tenderness PT-OP-K Range of Motion Start: 10/02/19 10:35 Freq: Status: Active Protocol: Document 10/02/19 10:37 [facility] (Rec: 10/03/19 09:45 [facility] [id number]) Lumbar Spine Range of Motion Lumbar Spine Active Testing Position Standing ROM Limitations Pain Comments mod decrease all motions with c/o increase in pain Hip Goniometric Range of Motion Hip right passive Flexion w/Knee Flexed 110 Straight Leg Raise 60 Extension 0 Abduction 40 Internal Rotation 30 External Rotation 55 Left passive Flexion w/Knee Flexed 120 Straight Leg Raise 75 Extension 0 Abduction 40 Internal Rotation 25 External Rotation 50 Hip ROM Limitations Hip ROM Limitations Soft Tissue Tightness,Pain Comments reports burning sensation right adductors with passive abduction Knee Goniometric Range of Motion Knee gloria Knee ROM WFL Yes Ankle and Foot Goniometric Range of Motion Ankle and Foot ROM Limitations ROM Limitations Pain PT-OP-L Special Tests Start: 10/02/19 10:35 Freq: Status: Active Protocol: Document 10/02/19 10:37 [facility] (Rec: 10/03/19 09:45 [facility] [id number]) Special Tests Lumbar Spine Special Tests Stork Test Test Results positive for SI pain Straight Leg Raise Test Results positive for hamstring tightness PT-OP-M Strength Start: 10/02/19 10:35 Freq: Status: Active Protocol: Document 10/02/19 10:37 [facility] (Rec: 10/03/19 09:45 [facility] [id number]) Trunk Strength Trunk Manual Muscle Testing Reason Not Measured Pain Hip Strength Hip Manual Muscle Testing Left Flexion (L2) 4 Good Extension (S1) 3- Fair- Abduction 3+ Fair+ Adduction 3+ Fair+ External Rotation 4- Good- Internal Rotation 4- Good- Right Flexion (L2) 4 Good Extension (S1) 2+ Poor+ Abduction 2+ Poor+ External Rotation 3+ Fair+ Internal Rotation 4- Good- Comments painful Knee Strength Knee Manual Muscle Testing gloria Flexion (S2) 4+ Good+ Extension (L3) 4+ Good+ PT-OP-Q Treatments Start: 10/02/19 10:35 Freq: Status: Active Protocol: Document 11/07/19 09:01 [facility] (Rec: 11/07/19 09:45 [facility] [id number]) Cardio Equipment Recumbent Stepper (Sci-Fit) Duration (Minutes) 10 Resistance 1.0 Seat Position 11 Therapeutic Exercises Supine Exercises IT band stretch Supine Exercise Name knee straight Reps/Minutes 2x30 Comments manual piriformis stretch Reps/Minutes 2x30 Comments manual HS stretch Supine Exercise Name passive Side bilateral Reps/Minutes 10 5 Supine Exercise Name Abdominal brace, march Side bilateral Reps/Minutes 10 x each Comments emphasis on pushing through opposite LE for core engagement and stability Standing Exercises Posture press Reps/Minutes 3x Manual Therapy Treatment Soft Tissue Mobilization right piriformis Body Location piriformi & glutes along sacrum & coccyx, proximal hamstring Mobilization Type Sustained Pressure,Trigger Point Release Intensity/Depth Moderate Body Position left sidelying PT-OP-R Modalities Start: 10/02/19 10:35 Freq: Status: Active Protocol: Document 11/07/19 09:01 [facility] (Rec: 11/07/19 09:45 [facility] [id number]) Hot Pack/Cold Pack Treatment Hot Pack Location lumboscral spine & r hip Patient Position Sidelying Treatment Duration (minutes) 15 Patient Tolerance Good Comments strap PT-OP-T Assessment and Plan Start: 10/02/19 10:35 Freq: Status: Active Protocol: Document 11/07/19 09:01 [facility] (Rec: 11/07/19 09:45 [facility] [id number]) Physical Therapy Assessment Goals Oswestry disability index score Impairment Activity intolerance, Oswestry disability index score 62% Halfway Goal (LTG) decrease score to no greater than 30% to help patient resume prior level of function One Impairment LE and core muscle weakness Short Term Goal (STG) Patient able to tolerate HEP for purposes of core and LE strengthening 11/07/19: goal achieved STG Duration achieved Pest Control Supervisor Goal (LTG) Patient to demonstrate improvement in muscle strength throughout core and LE's to at least 4+/5 to allow for return to usual activities. 11/07/19: good goal progress LTG Duration 01/02/20 Antalgic gait Impairment antalgic gait, using FWW Halfway Goal (LTG) Patient able to ambulate with least restrictive assistive device with mninimal to no limp 11/07/19: patient now ambulating with a straight cane, with only mild limp LTG Duration 12 wks Physical Therapy Plan Frequency and Duration Frequency of Treatment 2x/Week Duration of Treatment 12 weeks Plan of Care Start Date 10/02/19 Plan of Care End Date 01/02/20 Next Visit Focus/Plan Next Note Type Treatment Note Next Visit Plan Continue PT with emphasis on spinal stabilization, hip flexibility, manual tecniques, modalities as needed to decrease back and hip/buttock pain, and improve her function .
--- NOTE | 2019-11-09 13:44 | PT.OTN ---
Current Diagnoses Low back pain (11/09/19) Difficulty in walking, not elsewhere classified (11/09/19) Weakness (11/09/19) Arthrodesis status (11/09/19) Physical Therapy Treatment Note PT-OP-A Visit Information Start: 10/02/19 10:35 Freq: Status: Active Protocol: Document 11/09/19 09:06 SAK (Rec: 11/09/19 09:44 SAK [id number]) Out-Patient Physical Therapy Visit Information Visit Information Visit Type Treatment Note Visit Start Time 09:00 Visit Stop Time 09:59 Total Visit Minutes 59 Visit Number 11 PT-OP-B Current Condition Start: 10/02/19 10:35 Freq: Status: Active Protocol: Document 10/02/19 10:37 SAK (Rec: 10/02/19 11:58 SAK [id number]) Current Condition History of Current Condition Onset Date 1 month ago. Current Complaints bilateral LB pain, right buttock and groin pain History of Current Condition Reports was out gardening for about 45 min, had onset of pain which has persisted and worsened across low back and right hip (points to ischial tuberosity and medial groin area) Worst at night, taking muscle relaxants to be able to sleep due to severe pain. Right hip popping when going up stairs (ischial tuberosity area.). Doing exercises very difficult though reports if gentle can do clamshells and hip abductions, poor tolerance for laying on back or laying on her right side. States isometric exercises or pelvic tilts cause muscle spasms. Blood tests results with low white count have caused physician to advise her to stay away from the public pool where she typically gets relief. States she thinks she may have stress fracture right foot, will be having foot x-ray. Wearing orthotics , not sure if help. Continues to be numb lateral right hip down lateral side of right LE since before back surgery last year. Occasional sharp severe pain into right foot since before back surgery. Prior Treatments and Tests 1 year ago L4-S1 fusion. October 2018 right ankle surgery, left ankle 2 years ago. Grade 1 L3 on L4 anterlisthesis. Pending PT may have injection and/or MRI; last MRI last October. Percocet; approx every other night 1/4 pill. Treatment Goals Patient/Caregiver Goals Decrease pain, return to PFL. Prior Functional Status Baseline Function- ADL's Modified Independent Baseline Function- Mobility Modified Independent Baseline Function- Gait no assistive device Current Functional Impairments (Reported) Functional Limitations- ADL's moderate to severe pain Functional Limitations- Mobility/Gait limited by back pain, hip pain , right ankle pain Functional Limitations- Recreation/ unable due to pain Hobbies PT-OP-C Subjective Start: 10/02/19 10:35 Freq: Status: Active Protocol: Document 11/09/19 09:06 SAK (Rec: 11/09/19 09:44 [facility]AK [id number]) OP-PT Subjective Patient Comments Patient Comments Reports feeling weak and vulnerable in her spine, and hip. Burning and numbness minimal. PT-OP-F Manual Assessment Start: 10/02/19 10:35 Freq: Status: Active Protocol: Document 10/02/19 10:37 SAK (Rec: 10/03/19 09:45 [facility] [id number]) Manual Assessments Soft Tissue Assessment Soft Tissue Mobility Assessment increased soft tissue tightness throughout right buttock Joint Mobility Assessment Joint Mobility Assessment unable to lay prone for l/s assessment and has fusion L4- S1 Poor tolerance for hip mobility assessment PT-OP-G Mobility & Gait Start: 10/02/19 10:35 Freq: Status: Active Protocol: Document 10/02/19 10:37 SAK (Rec: 10/03/19 09:45 [facility] [id number]) OP Mobility Evaluation Bed Mobility Rolling painful Supine to and from Sit painful Transfers Sit to Stand painful with decreased weight- bearing right OP Gait Assessment Gait Gait Assistance Required: Independent Distance (Feet) 50 Assistive Devices Assistive Device None Orthotic/Prosthetic Devices or Brace: Yes Gait Deviations General Gait Pattern Antalgic,Decreased Stride Length,Decreased Feet Clearance Factors Limiting Gait Function Factors Limiting Gait Function Pain Stair Climbing Evaluation Comments Stair Climbing Comments unable to toelrate PT-OP-J Posture/Palpation/Skin Start: 10/02/19 10:35 Freq: Status: Active Protocol: Document 10/02/19 10:37 SAK (Rec: 10/03/19 09:45 [facility] [id number]) Posture Evaluation Position Standing Head/C-Spine Posture Forward Head T-Spine Posture Increased Kyphosis L-Spine Posture Flattened Shoulder Posture (L) Rounded,(R) Rounded Scapula Posture (L) Protracted,(R) Protracted Arm Posture (L) Internally Rotated,(R) Internally Rotated Pelvis Posture (R) PSIS Inferior Ankle/Foot Posture (L) Pronated,(R) Pronated Comments Posture Comments right leg 1/2 longer in supine Palpation Assessment Location Two Palpation Location bilateral lumbar spine Palpation Findings Tenderness One Palpation Location right buttock Palpation Findings Soft Tissue Tightness, Tenderness PT-OP-K Range of Motion Start: 10/02/19 10:35 Freq: Status: Active Protocol: Document 10/02/19 10:37 [facility] (Rec: 10/03/19 09:45 [facility] [id number]) Lumbar Spine Range of Motion Lumbar Spine Active Testing Position Standing ROM Limitations Pain Comments mod decrease all motions with c/o increase in pain Hip Goniometric Range of Motion Hip right passive Flexion w/Knee Flexed 110 Straight Leg Raise 60 Extension 0 Abduction 40 Internal Rotation 30 External Rotation 55 Left passive Flexion w/Knee Flexed 120 Straight Leg Raise 75 Extension 0 Abduction 40 Internal Rotation 25 External Rotation 50 Hip ROM Limitations Hip ROM Limitations Soft Tissue Tightness,Pain Comments reports burning sensation right adductors with passive abduction Knee Goniometric Range of Motion Knee gloria Knee ROM WFL Yes Ankle and Foot Goniometric Range of Motion Ankle and Foot ROM Limitations ROM Limitations Pain PT-OP-L Special Tests Start: 10/02/19 10:35 Freq: Status: Active Protocol: Document 10/02/19 10:37 [facility] (Rec: 10/03/19 09:45 [facility] [id number]) Special Tests Lumbar Spine Special Tests Stork Test Test Results positive for SI pain Straight Leg Raise Test Results positive for hamstring tightness PT-OP-M Strength Start: 10/02/19 10:35 Freq: Status: Active Protocol: Document 10/02/19 10:37 [facility] (Rec: 10/03/19 09:45 [facility] [id number]) Trunk Strength Trunk Manual Muscle Testing Reason Not Measured Pain Hip Strength Hip Manual Muscle Testing Left Flexion (L2) 4 Good Extension (S1) 3- Fair- Abduction 3+ Fair+ Adduction 3+ Fair+ External Rotation 4- Good- Internal Rotation 4- Good- Right Flexion (L2) 4 Good Extension (S1) 2+ Poor+ Abduction 2+ Poor+ External Rotation 3+ Fair+ Internal Rotation 4- Good- Comments painful Knee Strength Knee Manual Muscle Testing gloria Flexion (S2) 4+ Good+ Extension (L3) 4+ Good+ PT-OP-Q Treatments Start: 10/02/19 10:35 Freq: Status: Active Protocol: Document 11/09/19 09:06 [facility] (Rec: 11/09/19 09:44 [facility] [id number]) Cardio Equipment Recumbent Stepper (Sci-Fit) Duration (Minutes) 10 Resistance 1.0 Seat Position 11 Therapeutic Exercises Sitting Exercises seated crunch Reps/Minutes 10x Comments cues for spinal alignment, technique row, shld ext Resistance L1 TB Reps/Minutes 10x Comments with ball squeeze for core activation HS stretch Reps/Minutes 2x ea side Comments issued written handout march Sitting Exercise Name no lift, just press down opp foot, unweight Reps/Minutes 10x Comments with emphasis on TrA activation Standing Exercises sit to stand, shallow squats Reps/Minutes 5x Comments cued for spinal alignment, technique Posture press Reps/Minutes 3x Gait Training Gait Activity gait with nScaleding poles Distance/Duration 100' Treatment Focus fit, sequencing, safety Manual Therapy Treatment Soft Tissue Mobilization right piriformis Body Location piriformi & glutes along sacrum & coccyx, proximal hamstring Mobilization Type Sustained Pressure,Trigger Point Release Intensity/Depth Moderate Body Position left sidelying PT-OP-R Modalities Start: 10/02/19 10:35 Freq: Status: Active Protocol: Document 11/09/19 09:06 [facility] (Rec: 11/09/19 09:44 [facility] [id number]) Hot Pack/Cold Pack Treatment Hot Pack Location lumboscral spine & r hip Patient Position Sidelying Treatment Duration (minutes) 15 Patient Tolerance Good Comments strap PT-OP-T Assessment and Plan Start: 10/02/19 10:35 Freq: Status: Active Protocol: Document 11/09/19 09:06 [facility] (Rec: 11/09/19 09:44 [facility] [id number]) Physical Therapy Assessment Goals Oswestry disability index score Impairment Activity intolerance, Oswestry disability index score 62% Circuit Board Inspector Goal (LTG) decrease score to no greater than 30% to help patient resume prior level of function One Impairment LE and core muscle weakness Short Term Goal (STG) Patient able to tolerate HEP for purposes of core and LE strengthening 11/07/19: goal achieved STG Duration achieved Circuit Board Inspector Goal (LTG) Patient to demonstrate improvement in muscle strength throughout core and LE's to at least 4+/5 to allow for return to usual activities. 11/07/19: good goal progress LTG Duration 01/02/20 Antalgic gait Impairment antalgic gait, using FWW Mcfp Goal (LTG) Patient able to ambulate with least restrictive assistive device with mninimal to no limp 11/07/19: patient now ambulating with a straight cane, with only mild limp LTG Duration 12 wks Assessment Summary Assessment Continue gentle PT with emphasis on NWB core strengthening, manual techniques to decrease muscle tension and pain. Physical Therapy Plan Frequency and Duration Frequency of Treatment 2x/Week Duration of Treatment 12 weeks Plan of Care Start Date 10/02/19 Plan of Care End Date 01/02/20 Next Visit Focus/Plan Next Note Type Treatment Note Next Visit Plan Continue PT with emphasis on spinal stabilization, hip flexibility, manual tecniques, modalities as needed to decrease back and hip/buttock pain, and improve her function .
--- NOTE | 2019-11-23 15:04 | PT.OTN ---
Current Diagnoses Low back pain (11/23/19) Difficulty in walking, not elsewhere classified (11/23/19) Weakness (11/23/19) Arthrodesis status (11/23/19) Physical Therapy Treatment Note PT-OP-A Visit Information Start: 10/02/19 10:35 Freq: Status: Active Protocol: Document 11/23/19 09:03 [facility] (Rec: 11/23/19 10:01 [facility] [id number]) Out-Patient Physical Therapy Visit Information Visit Information Visit Type Treatment Note Visit Start Time 09:00 Visit Stop Time 09:59 Total Visit Minutes 59 Visit Number 12 PT-OP-B Current Condition Start: 10/02/19 10:35 Freq: Status: Active Protocol: Document 10/02/19 10:37 [facility] (Rec: 10/02/19 11:58 [facility] [id number]) Current Condition History of Current Condition Onset Date 1 month ago. Current Complaints bilateral LB pain, right buttock and groin pain History of Current Condition Reports was out gardening for about 45 min, had onset of pain which has persisted and worsened across low back and right hip (points to ischial tuberosity and medial groin area) Worst at night, taking muscle relaxants to be able to sleep due to severe pain. Right hip popping when going up stairs (ischial tuberosity area.). Doing exercises very difficult though reports if gentle can do clamshells and hip abductions, poor tolerance for laying on back or laying on her right side. States isometric exercises or pelvic tilts cause muscle spasms. Blood tests results with low white count have caused physician to advise her to stay away from the public pool where she typically gets relief. States she thinks she may have stress fracture right foot, will be having foot x-ray. Wearing orthotics , not sure if help. Continues to be numb lateral right hip down lateral side of right LE since before back surgery last year. Occasional sharp severe pain into right foot since before back surgery. Prior Treatments and Tests 1 year ago L4-S1 fusion. October 2018 right ankle surgery, left ankle 2 years ago. Grade 1 L3 on L4 anterlisthesis. Pending PT may have injection and/or MRI; last MRI last October. Percocet; approx every other night 1/4 pill. Treatment Goals Patient/Caregiver Goals Decrease pain, return to PFL. Prior Functional Status Baseline Function- ADL's Modified Independent Baseline Function- Mobility Modified Independent Baseline Function- Gait no assistive device Current Functional Impairments (Reported) Functional Limitations- ADL's moderate to severe pain Functional Limitations- Mobility/Gait limited by back pain, hip pain , right ankle pain Functional Limitations- Recreation/ unable due to pain Hobbies PT-OP-C Subjective Start: 10/02/19 10:35 Freq: Status: Active Protocol: Document 11/23/19 09:03 [facility] (Rec: 11/23/19 10:01 [facility] [id number]) OP-PT Subjective Patient Comments Patient Comments Better pain in right buttock and LB, but now having intermittant nerve pain medial right LE. No longer taking Cymbalta, other pain med, asking to be taking off of Prednisone. Feels she is on so much medication she is not sure what is working and what isn't. Going to get referral for a neurologist. Continues to feel she is having symptoms from L3 and L4 since her back surgery, feels shifting of L3 on L4 when she does her exercises laying on back. PT-OP-F Manual Assessment Start: 10/02/19 10:35 Freq: Status: Active Protocol: Document 10/02/19 10:37 [facility] (Rec: 10/03/19 09:45 [facility] [id number]) Manual Assessments Soft Tissue Assessment Soft Tissue Mobility Assessment increased soft tissue tightness throughout right buttock Joint Mobility Assessment Joint Mobility Assessment unable to lay prone for l/s assessment and has fusion L4- S1 Poor tolerance for hip mobility assessment PT-OP-G Mobility & Gait Start: 10/02/19 10:35 Freq: Status: Active Protocol: Document 10/02/19 10:37 [facility] (Rec: 10/03/19 09:45 [facility] [id number]) OP Mobility Evaluation Bed Mobility Rolling painful Supine to and from Sit painful Transfers Sit to Stand painful with decreased weight- bearing right OP Gait Assessment Gait Gait Assistance Required: Independent Distance (Feet) 50 Assistive Devices Assistive Device None Orthotic/Prosthetic Devices or Brace: Yes Gait Deviations General Gait Pattern Antalgic,Decreased Stride Length,Decreased Feet Clearance Factors Limiting Gait Function Factors Limiting Gait Function Pain Stair Climbing Evaluation Comments Stair Climbing Comments unable to toelrate PT-OP-J Posture/Palpation/Skin Start: 10/02/19 10:35 Freq: Status: Active Protocol: Document 10/02/19 10:37 [facility] (Rec: 10/03/19 09:45 [facility] [id number]) Posture Evaluation Position Standing Head/C-Spine Posture Forward Head T-Spine Posture Increased Kyphosis L-Spine Posture Flattened Shoulder Posture (L) Rounded,(R) Rounded Scapula Posture (L) Protracted,(R) Protracted Arm Posture (L) Internally Rotated,(R) Internally Rotated Pelvis Posture (R) PSIS Inferior Ankle/Foot Posture (L) Pronated,(R) Pronated Comments Posture Comments right leg 1/2 longer in supine Palpation Assessment Location Two Palpation Location bilateral lumbar spine Palpation Findings Tenderness One Palpation Location right buttock Palpation Findings Soft Tissue Tightness, Tenderness PT-OP-K Range of Motion Start: 10/02/19 10:35 Freq: Status: Active Protocol: Document 10/02/19 10:37 [facility] (Rec: 10/03/19 09:45 [facility] [id number]) Lumbar Spine Range of Motion Lumbar Spine Active Testing Position Standing ROM Limitations Pain Comments mod decrease all motions with c/o increase in pain Hip Goniometric Range of Motion Hip right passive Flexion w/Knee Flexed 110 Straight Leg Raise 60 Extension 0 Abduction 40 Internal Rotation 30 External Rotation 55 Left passive Flexion w/Knee Flexed 120 Straight Leg Raise 75 Extension 0 Abduction 40 Internal Rotation 25 External Rotation 50 Hip ROM Limitations Hip ROM Limitations Soft Tissue Tightness,Pain Comments reports burning sensation right adductors with passive abduction Knee Goniometric Range of Motion Knee gloria Knee ROM WFL Yes Ankle and Foot Goniometric Range of Motion Ankle and Foot ROM Limitations ROM Limitations Pain PT-OP-L Special Tests Start: 10/02/19 10:35 Freq: Status: Active Protocol: Document 10/02/19 10:37 [facility] (Rec: 10/03/19 09:45 [facility] [id number]) Special Tests Lumbar Spine Special Tests Stork Test Test Results positive for SI pain Straight Leg Raise Test Results positive for hamstring tightness PT-OP-M Strength Start: 10/02/19 10:35 Freq: Status: Active Protocol: Document 10/02/19 10:37 [facility] (Rec: 10/03/19 09:45 [facility] [id number]) Trunk Strength Trunk Manual Muscle Testing Reason Not Measured Pain Hip Strength Hip Manual Muscle Testing Left Flexion (L2) 4 Good Extension (S1) 3- Fair- Abduction 3+ Fair+ Adduction 3+ Fair+ External Rotation 4- Good- Internal Rotation 4- Good- Right Flexion (L2) 4 Good Extension (S1) 2+ Poor+ Abduction 2+ Poor+ External Rotation 3+ Fair+ Internal Rotation 4- Good- Comments painful Knee Strength Knee Manual Muscle Testing gloria Flexion (S2) 4+ Good+ Extension (L3) 4+ Good+ PT-OP-Q Treatments Start: 10/02/19 10:35 Freq: Status: Active Protocol: Document 11/23/19 09:03 [facility] (Rec: 11/23/19 10:01 [facility] [id number]) Cardio Equipment Recumbent Stepper (Sci-Fit) Duration (Minutes) 10 Resistance 1.0 Seat Position 11 Therapeutic Exercises Sitting Exercises shoulder ER Resistance ball squeezed between knees Equipment Used L1TB seated crunch Reps/Minutes 10x Comments cues for spinal alignment, technique row, shld ext Resistance L1 TB Reps/Minutes 10x Comments with ball squeeze for core activation hip hinge with abdominal activation Sitting Exercise Name sit to stand Equipment Used yardstick Reps/Minutes 3x Comments verbal and manual cues HS stretch Reps/Minutes 2x ea side march Sitting Exercise Name no lift, just press down opp foot, unweight Reps/Minutes 10x Comments with emphasis on TrA activation Standing Exercises sit to stand, shallow squats Reps/Minutes 5x Comments cued for spinal alignment, technique Posture press Reps/Minutes 3x Manual Therapy Treatment Soft Tissue Mobilization right piriformis Body Location piriformi & glutes along sacrum & coccyx, proximal hamstring Mobilization Type Sustained Pressure,Trigger Point Release Intensity/Depth Moderate Body Position left sidelying PT-OP-R Modalities Start: 10/02/19 10:35 Freq: Status: Active Protocol: Document 11/09/19 09:06 [facility] (Rec: 11/09/19 09:44 [facility] [id number]) Hot Pack/Cold Pack Treatment Hot Pack Location lumboscral spine & r hip Patient Position Sidelying Treatment Duration (minutes) 15 Patient Tolerance Good Comments strap PT-OP-T Assessment and Plan Start: 10/02/19 10:35 Freq: Status: Active Protocol: Document 11/23/19 09:03 [facility] (Rec: 11/23/19 10:01 [facility] [id number]) Physical Therapy Assessment Assessment Summary Assessment Today was patient's last scheduled appointment. Feel her best option for ther ex is in the pool but she is unable due to Covid and being at high risk. Better tolerance for seated stabilization ex instead of supine; these were reviewed and she was issued updated written HEP. We discussed options for treatment; at this time we agreed to follow up appointment in 1 month and will determine need for further PT at that time. Physical Therapy Plan Frequency and Duration Frequency of Treatment 2x/Week Duration of Treatment 12 weeks Plan of Care Start Date 10/02/19 Plan of Care End Date 01/02/20 Next Visit Focus/Plan Next Visit Plan Follow up in 1 month.
--- NOTE | 2019-12-20 08:19 | PT-OP ANOTE ---
cancelled PT due to torn bicep
--- NOTE | 2020-01-24 08:21 | PT.OPDS ---
Current Diagnoses Low back pain (11/23/19) Difficulty in walking, not elsewhere classified (11/23/19) Weakness (11/23/19) Arthrodesis status (11/23/19) Visit Care Team Role Provider Type Ellie Fountain PA-C Primary Care Provider Advanced Bed Spring Maker Specialty: Internal Medicine Address: [address] [place] [address], [id number] Email: [email or web address] Teofilo Olea PA-C Attending Provider Non-Staff Referring Provider Specialty: Medical Address: [address] [place] [address], [facility] Email: Visit Number Visit Number 12 Discharge Summary PT-OP-B Current Condition Start: 10/02/19 10:35 Freq: Status: Active Protocol: Document 10/02/19 10:37 [facility] (Rec: 10/02/19 11:58 [facility] [id number]) Current Condition History of Current Condition Onset Date 1 month ago. Current Complaints bilateral LB pain, right buttock and groin pain History of Current Condition Reports was out gardening for about 45 min, had onset of pain which has persisted and worsened across low back and right hip (points to ischial tuberosity and medial groin area) Worst at night, taking muscle relaxants to be able to sleep due to severe pain. Right hip popping when going up stairs (ischial tuberosity area.). Doing exercises very difficult though reports if gentle can do clamshells and hip abductions, poor tolerance for laying on back or laying on her right side. States isometric exercises or pelvic tilts cause muscle spasms. Blood tests results with low white count have caused physician to advise her to stay away from the public pool where she typically gets relief. States she thinks she may have stress fracture right foot, will be having foot x-ray. Wearing orthotics , not sure if help. Continues to be numb lateral right hip down lateral side of right LE since before back surgery last year. Occasional sharp severe pain into right foot since before back surgery. Prior Treatments and Tests 1 year ago L4-S1 fusion. October 2018 right ankle surgery, left ankle 2 years ago. Grade 1 L3 on L4 anterlisthesis. Pending PT may have injection and/or MRI; last MRI last October. Percocet; approx every other night 1/4 pill. Treatment Goals Patient/Caregiver Goals Decrease pain, return to PFL. Prior Functional Status Baseline Function- ADL's Modified Independent Baseline Function- Mobility Modified Independent Baseline Function- Gait no assistive device Current Functional Impairments (Reported) Functional Limitations- ADL's moderate to severe pain Functional Limitations- Mobility/Gait limited by back pain, hip pain , right ankle pain Functional Limitations- Recreation/ unable due to pain Hobbies PT-OP-C Subjective Start: 10/02/19 10:35 Freq: Status: Active Protocol: Document 11/23/19 09:03 [facility] (Rec: 11/23/19 10:01 [facility] [id number]) OP-PT Subjective Patient Comments Patient Comments Better pain in right buttock and LB, but now having intermittant nerve pain medial right LE. No longer taking Cymbalta, other pain med, asking to be taking off of Prednisone. Feels she is on so much medication she is not sure what is working and what isn't. Going to get referral for a neurologist. Continues to feel she is having symptoms from L3 and L4 since her back surgery, feels shifting of L3 on L4 when she does her exercises laying on back. PT-OP-F Manual Assessment Start: 10/02/19 10:35 Freq: Status: Active Protocol: Document 10/02/19 10:37 [facility] (Rec: 10/03/19 09:45 [facility] [id number]) Manual Assessments Soft Tissue Assessment Soft Tissue Mobility Assessment increased soft tissue tightness throughout right buttock Joint Mobility Assessment Joint Mobility Assessment unable to lay prone for l/s assessment and has fusion L4- S1 Poor tolerance for hip mobility assessment PT-OP-G Mobility & Gait Start: 10/02/19 10:35 Freq: Status: Active Protocol: Document 10/02/19 10:37 [facility] (Rec: 10/03/19 09:45 [facility] [id number]) OP Mobility Evaluation Bed Mobility Rolling painful Supine to and from Sit painful Transfers Sit to Stand painful with decreased weight- bearing right OP Gait Assessment Gait Gait Assistance Required: Independent Distance (Feet) 50 Assistive Devices Assistive Device None Orthotic/Prosthetic Devices or Brace: Yes Gait Deviations General Gait Pattern Antalgic,Decreased Stride Length,Decreased Feet Clearance Factors Limiting Gait Function Factors Limiting Gait Function Pain Stair Climbing Evaluation Comments Stair Climbing Comments unable to toelrate PT-OP-J Posture/Palpation/Skin Start: 10/02/19 10:35 Freq: Status: Active Protocol: Document 10/02/19 10:37 [facility] (Rec: 10/03/19 09:45 [facility] [id number]) Posture Evaluation Position Standing Head/C-Spine Posture Forward Head T-Spine Posture Increased Kyphosis L-Spine Posture Flattened Shoulder Posture (L) Rounded,(R) Rounded Scapula Posture (L) Protracted,(R) Protracted Arm Posture (L) Internally Rotated,(R) Internally Rotated Pelvis Posture (R) PSIS Inferior Ankle/Foot Posture (L) Pronated,(R) Pronated Comments Posture Comments right leg 1/2 longer in supine Palpation Assessment Location Two Palpation Location bilateral lumbar spine Palpation Findings Tenderness One Palpation Location right buttock Palpation Findings Soft Tissue Tightness, Tenderness PT-OP-K Range of Motion Start: 10/02/19 10:35 Freq: Status: Active Protocol: Document 10/02/19 10:37 [facility] (Rec: 10/03/19 09:45 [facility] [id number]) Lumbar Spine Range of Motion Lumbar Spine Active Testing Position Standing ROM Limitations Pain Comments mod decrease all motions with c/o increase in pain Hip Goniometric Range of Motion Hip right passive Flexion w/Knee Flexed 110 Straight Leg Raise 60 Extension 0 Abduction 40 Internal Rotation 30 External Rotation 55 Left passive Flexion w/Knee Flexed 120 Straight Leg Raise 75 Extension 0 Abduction 40 Internal Rotation 25 External Rotation 50 Hip ROM Limitations Hip ROM Limitations Soft Tissue Tightness,Pain Comments reports burning sensation right adductors with passive abduction Knee Goniometric Range of Motion Knee gloria Knee ROM WFL Yes Ankle and Foot Goniometric Range of Motion Ankle and Foot ROM Limitations ROM Limitations Pain PT-OP-L Special Tests Start: 10/02/19 10:35 Freq: Status: Active Protocol: Document 10/02/19 10:37 [facility] (Rec: 10/03/19 09:45 [facility] [id number]) Special Tests Lumbar Spine Special Tests Stork Test Test Results positive for SI pain Straight Leg Raise Test Results positive for hamstring tightness PT-OP-M Strength Start: 10/02/19 10:35 Freq: Status: Active Protocol: Document 10/02/19 10:37 [facility] (Rec: 10/03/19 09:45 [facility] [id number]) Trunk Strength Trunk Manual Muscle Testing Reason Not Measured Pain Hip Strength Hip Manual Muscle Testing Left Flexion (L2) 4 Good Extension (S1) 3- Fair- Abduction 3+ Fair+ Adduction 3+ Fair+ External Rotation 4- Good- Internal Rotation 4- Good- Right Flexion (L2) 4 Good Extension (S1) 2+ Poor+ Abduction 2+ Poor+ External Rotation 3+ Fair+ Internal Rotation 4- Good- Comments painful Knee Strength Knee Manual Muscle Testing gloria Flexion (S2) 4+ Good+ Extension (L3) 4+ Good+ PT-OP-T Assessment and Plan Start: 10/02/19 10:35 Freq: Status: Active Protocol: Document 01/24/20 08:20 [facility] (Rec: 01/24/20 08:21 [facility] [id number]) Physical Therapy Plan Discharge Physical Therapy Discharge Reasons No Longer Attending PT Discharge Comments Patient not seen for 2 months in PT due to Covid, working on self-management of symptoms. May be returning for PT so will discharge this account.
== END 2020-03-15 13:45 ==
LOC: PHYS 09:00
PROVIDERS: PCP Physician Assistant; Referring Provider Physician Assistant; Visit Provider Physician Assistant
DX: Z98.1 Arthrodesis status (principal); M54.5 Low back pain; R26.2 Difficulty in walking, not elsewhere classified; R53.1 Weakness
CPT/HCPCS: 97010; 97110; 97116; 97140; 97162; 97530; 97535

== ENCOUNTER → 2019-12-05 10:53 | Outpatient (CLI) | payer MEDICARE, OTHER, SELFPAY ==
[2019-12-05 12:42] LABS: Add Manual Diff / Slide Review NO; Basophils Absolute Auto 0 /uL (0-100); Eosinophils Absolute Auto 100 /uL (0-450); Eosinophils Percent Auto 1.7 % (2-4); Hematocrit 39.8 % (36-46); Hemoglobin 13.2 g/dL (12.0-16.0); Lymphocytes Absolute Auto 1300 /uL (1100-4500); Lymphocytes Percent Auto 31.3 % (25-40); Mean Corpuscular HGB Conc 33.2 % (30-36); Mean Corpuscular Hemoglobin 30.6 PG (26-34); Mean Corpuscular Volume 92.3 fL (80-100); Monocytes Absolute Auto 600 /uL (0-900); Monocytes Percent Auto 15.2 % (3-14); Neutrophils Absolute Auto 2100 /uL (1500-7000); Neutrophils Percent Auto 50.8 % (50-75); Platelet Count 200 X10^3/uL (150-400); Red Blood Cell Count 4.31 X10^6/uL (4.0-5.2); Red Cell Distribution Width 13.7 % (11.6-14.8); White Blood Cell Count 4.1 X10^3/uL (4.5-11.0)
[2019-12-05 12:50] LABS: Hemoglobin A1C% w Est Avg Glu 5.5 % (4.0-6.0)
[2019-12-05 13:42] LABS: Alanine Aminotransferase 27 IU/L (<35); Albumin Globulin Ratio 1.5 (1.0-2.8); Alkaline Phosphatase 56 U/L (38-126); Aspartate Aminotransferase 27 IU/L (14-36); BUN Creatinine Ratio 23.6 (6-22); Bilirubin Total 0.6 mg/dL (0.2-1.3); Bilirubin Unconjugated 0.5 mg/dL (0.0-1.1); Blood Urea Nitrogen 21 mg/dL (7-17); Calcium 9.6 mg/dL (8.4-10.2); Carbon Dioxide 32 mmol/L (22-32); Chloride 99 mmol/L (98-107); Estimated Glomerular Filt Rate > 60.0 mL/min (>60); Globulin 2.6 g/dL (1.7-4.1); Glucose 88 mg/dL (80-110); HEMOLYSIS < 15 (0-50); Potassium 4.6 mmol/L (3.4-5.1); Sodium 135 mmol/L (137-145); Total Protein 6.6 g/dL (6.3-8.2)
[2019-12-05 14:01] LABS: TSH w/ Reflex to FT4 3.39 uIU/mL (0.47-4.68)
[2019-12-05 14:22] LABS: Vitamin B12 840 pg/mL (239-931)
[2019-12-07 15:48] LABS: Albumin 3.5 g/dL (2.9-4.4); Alpha-1-Globulin 0.2 g/dL (0.0-0.4); Gamma Globulin 0.5 g/dL (0.4-1.8); Globulin Total 2.8 g/dL (2.2-3.9); Protein, Total 6.3 g/dL (6.0-8.5)
== END ==
PROVIDERS: PCP Physician Assistant; Referring Provider Physician Assistant; Visit Provider Internal Medicine Rheumatology
DX: M06.00 Rheumatoid arthritis without rheumatoid factor, unspecified site (principal); Z79.899 Other long term (current) drug therapy; G60.9 Hereditary and idiopathic neuropathy, unspecified; E53.8 Deficiency of other specified B group vitamins; E03.9 Hypothyroidism, unspecified; D47.2 Monoclonal gammopathy; R73.01 Impaired fasting glucose; G89.4 Chronic pain syndrome
CPT/HCPCS: 36415; 80053; 80076; 82607; 83036; 84155; 84165; 84443; 85025

== ENCOUNTER → 2020-01-29 15:43 | Outpatient (CLI) | payer MEDICARE, OTHER, SELFPAY ==
--- NOTE | 2020-01-29 | DI.MRI.S_ITS ---
PROCEDURE: MR PELVIS WO CON INDICATIONS: LOW BACK PAIN. RIGHT SIDED SCIATICA TECHNIQUE: Noncontrast axial and coronal T1 spin echo and STIR through the lumbosacral plexus region. Optional contrast may be given, followed by axial and coronal T1 spin echo with fat saturation through the sacral plexus. COMPARISON: , CR, XR LUMBAR SPINE MIN 4V, 08/11/2019, 11:02. FINDINGS: Image quality: Excellent. Lumbosacral plexus: Superior to the piriformis muscles, the pre-plexal structures appear normal, including the lumbosacral trunk and S1 root. Just anterior to the piriformis muscles, the sacral plexus proper demonstrates normal morphology (lumbosacral trunk, S1 to S3 nerve roots). Inferior to the piriformis muscles, the sciatic nerves appear normal. Metal artifact disallows clear visualization of the lumbosacral spine portion included on this study crossing the thoracolumbar junction. Soft tissues: The piriformis muscles appear symmetric in size. No presacral masses. Rectum appears normal in caliber and wall thickness. No pathologic free pelvic fluid. No visualized adenopathy by size criteria. Bones: Marrow is normal in overall signal. IMPRESSION: Prior lumbosacral spine fusion from L4 through S1. Metal artifact this allows visualization of the low lumbosacral spine in that area. No lesion impinges on the lumbosacral plexus, no marrow space abnormality is found. A definite source of right-sided sciatica is not found within the pelvis. Dictated by: Adan Purdy M.D. on 01/30/2020 at 14:28 Approved by: Adan Purdy M.D. on 01/30/2020 at 14:30
--- NOTE | 2020-01-29 | DI.MRI.S_ITS ---
PROCEDURE: MR LUMBAR SPINE WO/W CON INDICATIONS: LOW BACK PAIN WITH RIGHT SIDED SCIATICA TECHNIQUE: Noncontrast sagittal T1 spin echo and T2 fast spin echo, sagittal STIR, axial T1 and T2 fast spin echo through the lumbar spine. In cases with scoliosis, additional coronal T2 fast spin echo may be performed. After the administration of contrast, sagittal and axial T1 spin echo with fat saturation through the lumbar spine. COMPARISON: [facility], MR, MR LUMBAR SPINE WO CON, 07/12/2018, 17:56. [facility], CR, XR LUMBAR SPINE MIN 4V, 08/11/2019, 11:02. FINDINGS: Image quality: Excellent. Alignment and curvature: Posterior fusion from L4 through S1 is present. There is good anatomic alignment. Marrow: Marrow is of normal overall signal. No acute vertebral body compression fractures. No suspicious marrow enhancement. Spinal cord: Conus medullaris terminates at the L2 level. Visualized spinal cord demonstrates normal signal, without suspicious enhancement. Paraspinous soft tissues: No paravertebral masses or abnormal enhancement. Discs: Ejel-fx-kxrraman desiccation is present throughout the lumbar spine. L1-L2: No disc bulge, spinal stenosis or foraminal narrowing. Facet and ligamentum flavum hypertrophy are present. L2-L3: Mild disc bulge without spinal stenosis or foraminal narrowing. Facet and ligamentum flavum hypertrophy are present. L3-L4: Mild disc bulge with appearance of left posterior paracentral protrusion with extruded fragment. There is severe spinal stenosis with compression of the canal. Prominent compromise of the right lateral recess as well as proximal right foramina are noted. Moderate left foraminal narrowing is present. L4-L5: Postsurgical changes are present. No spinal stenosis. Minimal to mild bilateral foraminal narrowing appears unchanged. L5-S1: Postsurgical change are present. No spinal stenosis. Severe left and mild right foraminal narrowing appears stable. IMPRESSION: 1. Posterior fusion from L4 through S1 as above. 2. New posterior protrusion with apparent extrusion at L3-4 causing compromise of the right lateral recess, proximal right foramina as well as severe spinal Ruth Flores M.D. on 01/29/2020 at 17:44 Approved by: Ruth Flores M.D. on 01/29/2020 at 17:50
== END ==
PROVIDERS: PCP Physician Assistant; Referring Provider Physical Medicine & Rehabilitation; Visit Provider Physical Medicine & Rehabilitation
DX: M54.41 Lumbago with sciatica, right side (principal); Z98.1 Arthrodesis status
CPT/HCPCS: 72158; 72195

== ENCOUNTER → 2020-02-14 10:13 | Outpatient (CLI) | payer MEDICARE, OTHER, SELFPAY ==
[2020-02-14 11:27] LABS: Add Manual Diff / Slide Review NO; Basophils Absolute Auto 0 /uL (0-100); Eosinophils Absolute Auto 100 /uL (0-450); Eosinophils Percent Auto 1.9 % (2-4); Hematocrit 38.7 % (36-46); Hemoglobin 12.8 g/dL (12.0-16.0); Lymphocytes Absolute Auto 1100 /uL (1100-4500); Lymphocytes Percent Auto 27.2 % (25-40); Mean Corpuscular Hemoglobin 30.2 PG (26-34); Mean Corpuscular Volume 91.6 fL (80-100); Monocytes Absolute Auto 500 /uL (0-900); Monocytes Percent Auto 12.5 % (3-14); Neutrophils Absolute Auto 2400 /uL (1500-7000); Neutrophils Percent Auto 57.4 % (50-75); Platelet Count 185 X10^3/uL (150-400); Red Blood Cell Count 4.23 X10^6/uL (4.0-5.2); Red Cell Distribution Width 13.2 % (11.6-14.8); White Blood Cell Count 4.2 X10^3/uL (4.5-11.0)
[2020-02-14 11:49] LABS: Alanine Aminotransferase 34 IU/L (<35); Albumin Globulin Ratio 1.7 (1.0-2.8); Alkaline Phosphatase 53 U/L (38-126); Aspartate Aminotransferase 31 IU/L (14-36); Bilirubin Total 0.6 mg/dL (0.2-1.3); Bilirubin Unconjugated 0.5 mg/dL (0.0-1.1); Estimated Glomerular Filt Rate > 60.0 mL/min (>60); Globulin 2.4 g/dL (1.7-4.1); HEMOLYSIS < 15 (0-50); Total Protein 6.4 g/dL (6.3-8.2)
== END ==
PROVIDERS: PCP Physician Assistant; Referring Provider Internal Medicine Rheumatology; Visit Provider Internal Medicine Rheumatology
DX: M06.00 Rheumatoid arthritis without rheumatoid factor, unspecified site (principal); Z79.899 Other long term (current) drug therapy
CPT/HCPCS: 36415; 80076; 82565; 85025

== ENCOUNTER → 2020-05-30 13:12 | Outpatient (CLI) | payer MEDICARE, OTHER, SELFPAY ==
[2020-05-30 15:33] LABS: Add Manual Diff / Slide Review NO; Basophils Absolute Auto 0 /uL (0-100); Basophils Percent Auto 0.8 % (0-2); Eosinophils Absolute Auto 100 /uL (0-450); Eosinophils Percent Auto 1.7 % (2-4); Hematocrit 41.9 % (36-46); Hemoglobin 13.9 g/dL (12.0-16.0); Lymphocytes Absolute Auto 1100 /uL (1100-4500); Mean Corpuscular HGB Conc 33.2 % (30-36); Mean Corpuscular Hemoglobin 29.6 PG (26-34); Mean Corpuscular Volume 89.1 fL (80-100); Monocytes Absolute Auto 600 /uL (0-900); Monocytes Percent Auto 11.5 % (3-14); Neutrophils Absolute Auto 3100 /uL (1500-7000); Platelet Count 156 X10^3/uL (150-400); Red Cell Distribution Width 14.4 % (11.6-14.8); White Blood Cell Count 4.8 X10^3/uL (4.5-11.0)
[2020-05-30 15:54] LABS: Alanine Aminotransferase 27 IU/L (<35); Albumin 4.3 g/dL (3.5-5.0); Albumin Globulin Ratio 1.7 (1.0-2.8); Alkaline Phosphatase 56 U/L (38-126); Aspartate Aminotransferase 30 IU/L (14-36); Bilirubin Total 0.5 mg/dL (0.2-1.3); Bilirubin Unconjugated 0.5 mg/dL (0.0-1.1); Estimated Glomerular Filt Rate > 60.0 mL/min (>60); Globulin 2.5 g/dL (1.7-4.1); HEMOLYSIS < 15 (0-50); Total Protein 6.8 g/dL (6.3-8.2)
== END ==
PROVIDERS: PCP Physician Assistant; Referring Provider Internal Medicine Rheumatology; Visit Provider Internal Medicine Rheumatology
DX: M06.00 Rheumatoid arthritis without rheumatoid factor, unspecified site (principal); Z79.899 Other long term (current) drug therapy
CPT/HCPCS: 36415; 80076; 82565; 85025

== ENCOUNTER → 2020-07-15 09:13 | Outpatient (CLI) | payer MEDICARE, OTHER, SELFPAY ==
--- NOTE | 2020-07-15 | DI.MRI.S_ITS ---
PROCEDURE: MR LUMBAR SPINE WO CON INDICATIONS: Low back pain TECHNIQUE: Noncontrast sagittal T1 spin echo and T2 fast echo, sagittal STIR, axial T1 and T2 fast spin echo through the lumbar spine. In cases with scoliosis, additional coronal T2 fast spin echo may be performed. COMPARISON: Located Within [facility], MR, MR LUMBAR SPINE WO/W CON, 01/29/2020, 16:46. Located Within [facility], MR, MR LUMBAR SPINE WO CON, 07/12/2018, 17:56. FINDINGS: Image quality: Excellent. Alignment and Curvature: Posterior fusion is present from L4 through S1. Overall appearance and alignment are stable compared to prior exam. Bone Marrow: Marrow is of normal overall signal. No acute vertebral body compression fractures. Spinal Cord: Conus medullaris terminates at the L1-L2 level. Visualized cord demonstrates normal signal and size. Paraspinous Soft Tissues: No paravertebral masses. Discs: Moderate to severe desiccation is present from L3-4 through L5-S1, mild throughout the remainder of the lumbar spine. L1-L2: No disc bulge, spinal stenosis or foraminal narrowing. Facet and ligamentum flavum hypertrophy are present. No interval change. L2-L3: Mild disc bulge with minimal interval canal narrowing. Facet and ligamentum flavum hypertrophy are present. No interval progression. L3-L4: Mild disc bulge with posterior paracentral protrusion appearing less prominent when compared to prior exam. There remains severe spinal stenosis with compression of the canal as well as compromise of the right lateral recess and proximal right neural foramina. Moderate left foraminal narrowing is again noted. Facet and ligamentum flavum hypertrophy are present. L4-L5: Postsurgical changes are present. No spinal stenosis. Minimal to mild bilateral foraminal narrowing, unchanged. L5-S1: Postsurgical changes. No spinal stenosis. Severe left and mild right foraminal narrowing with facet hypertrophy is present. No appreciable interval change. IMPRESSION: 1. Multilevel degenerative changes with previous protrusion at L3-4 appearing less prominent. Recommend correlation to prior surgical intervention. However, there is a persistent appearance of severe spinal stenosis well as compromise the lateral recesses bilaterally. Dictated by: Ruth Flores M.D. on 07/15/2020 at 12:59 Approved by: Ruth Flores M.D. on 07/15/2020 at 13:14
== END ==
PROVIDERS: PCP Physician Assistant; Referring Provider Physical Medicine & Rehabilitation; Visit Provider Physical Medicine & Rehabilitation
DX: M54.5 Low back pain (principal); M47.816 Spondylosis without myelopathy or radiculopathy, lumbar region; M47.817 Spondylosis without myelopathy or radiculopathy, lumbosacral region; M48.061 Spinal stenosis, lumbar region without neurogenic claudication; M48.07 Spinal stenosis, lumbosacral region; G89.29 Other chronic pain
CPT/HCPCS: 72148

== ENCOUNTER → 2020-07-18 10:56 | Outpatient (CLI) | payer MEDICARE, OTHER, SELFPAY ==
[2020-07-18 11:50] LABS: Add Manual Diff / Slide Review NO; Basophils Absolute Auto 0 /uL (0-100); Basophils Percent Auto 0.9 % (0-2); Eosinophils Absolute Auto 100 /uL (0-450); Eosinophils Percent Auto 1.8 % (2-4); Hematocrit 39.5 % (36-46); Hemoglobin 12.8 g/dL (12.0-16.0); Lymphocytes Absolute Auto 1000 /uL (1100-4500); Lymphocytes Percent Auto 29.5 % (25-40); Mean Corpuscular HGB Conc 32.4 % (30-36); Mean Corpuscular Hemoglobin 29.2 PG (26-34); Mean Corpuscular Volume 90.2 fL (80-100); Monocytes Absolute Auto 400 /uL (0-900); Monocytes Percent Auto 12.5 % (3-14); Neutrophils Absolute Auto 1800 /uL (1500-7000); Neutrophils Percent Auto 55.3 % (50-75); Platelet Count 142 X10^3/uL (150-400); Red Blood Cell Count 4.38 X10^6/uL (4.0-5.2); Red Cell Distribution Width 14.9 % (11.6-14.8); White Blood Cell Count 3.2 X10^3/uL (4.5-11.0)
[2020-07-18 21:29] LABS: Alanine Aminotransferase 28 IU/L (<35); Albumin 3.6 g/dL (3.5-5.0); Albumin Globulin Ratio 1.6 (1.0-2.8); Alkaline Phosphatase 57 U/L (38-126); Aspartate Aminotransferase 31 IU/L (14-36); BUN Creatinine Ratio 26.8 (6-22); Bilirubin Total 0.4 mg/dL (0.2-1.3); Blood Urea Nitrogen 19 mg/dL (7-17); Calcium 9.2 mg/dL (8.4-10.2); Carbon Dioxide 26 mmol/L (22-32); Chloride 105 mmol/L (98-107); Estimated Glomerular Filt Rate > 60.0 mL/min (>60); Globulin 2.3 g/dL (1.7-4.1); Glucose 96 mg/dL (80-110); HEMOLYSIS < 15 (0-50); Potassium 4.1 mmol/L (3.4-5.1); Sodium 137 mmol/L (137-145); Total Protein 5.9 g/dL (6.3-8.2)
== END ==
PROVIDERS: PCP Physician Assistant; Referring Provider Internal Medicine Rheumatology; Visit Provider Internal Medicine Rheumatology
DX: M06.00 Rheumatoid arthritis without rheumatoid factor, unspecified site (principal)
CPT/HCPCS: 36415; 80053; 85025

== ENCOUNTER 2020-08-06 10:30 | Outpatient (RCR) | payer MEDICARE, OTHER, SELFPAY ==
--- NOTE | 2020-02-14 11:58 | PT.OIE ---
Current Diagnoses Spinal stenosis, lumbar region without neurogenic claudication (02/14/20) Low back pain (02/14/20) Other muscle spasm (02/14/20) Difficulty in walking, not elsewhere classified (02/14/20) Weakness (02/14/20) Visit Care Team Role Provider Type Ellie Fountain PA-C Attending Provider Advanced Auth Specialist Primary Care Provider Referring Provider Specialty: Internal Medicine Address: [address] [place] [address], [facility] Email: [email or web address] Physical Therapy Initial Evaluation PT-OP-A Visit Information Start: 02/14/20 08:08 Freq: Status: Active Protocol: Document 02/14/20 09:04 SAK (Rec: 02/14/20 09:30 SAK [id number]) Out-Patient Physical Therapy Visit Information Visit Information Visit Type Initial Evaluation Visit Start Time 09:02 Visit Stop Time 09:57 Total Visit Minutes 55 Visit Number 1 Evaluation Information Evaluation Date 02/14/20 Precautions Precautions L4-S1 fusion ankle fusions PT-OP-B Current Condition Start: 02/14/20 08:08 Freq: Status: Active Protocol: Document 02/14/20 09:04 SAK (Rec: 02/14/20 09:30 SAK [id number]) Current Condition History of Current Condition Onset Date 5 weeks Current Complaints buttock pain gloria left greater than right, pubic pain central History of Current Condition 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 States she got up from chair, felt excrutiating pain (almost wrost pain ever had) in buttock left greater than right. States doctors think the pain coming from low back but she disagrees: I know what pain from my low back feels like. 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 Has been getting some better, can now sit, but pain persists and limits her activity. Has been seen in PT by this therapist previously and has been doing ther ex, ice, heat, using ball for self -massage. Reports hysicians wanting to refer patient to spinal surgeon due to MRI showing bulging disc at L34, but she refuses at this time. Pain worse with prolonged sitting on any surface. Because of pain can't ambulate on stairs with alternating pattern due to pain. Trying to walk. Hasn't been able to go the pool. Feels weak. Has been trying to change positions more frequently. Sleeps with a heating pad between her legs due to pubic pain. Has low back pain but states she feels more weak than painful in back. Also has peroneal tendonitis right ankle; was in a lace-up splint over past month, pain improved. Having insoles changed next week. Denies shooting pain down leg or any giving way of legs. Has EMG next week at due to persistent numbness right LE, across ankle into big toe that she has had since spinal surgery. Prior Treatments and Tests MRI spine 01/30/20. Future Testing and Treatments Planned EMG 02/21/20. Treatment Goals Patient/Caregiver Goals Decreasing pain, improving strength and activity tolerance. PT-OP-C Subjective Start: 02/14/20 08:08 Freq: Status: Active Protocol: Document 02/14/20 11:13 [facility] (Rec: 02/14/20 11:56 [facility] [id number]) OP-PT Pain Assessment Pain Assessment Grid Paper Pain Assessment Grid Completed Yes Location pubic symphysis Intensity 5 right buttock Intensity 2 left buttock Intensity 6 Pain Aggravating Factors Activity,Standing,Sitting, Stair Climbing Pain Alleviating Factors Cold,Heat,Exercise low back Intensity 2 Pain Behaviors Pain Behaviors Facial Grimacing,Guarding, Wincing PT-OP-G Mobility & Gait Start: 02/14/20 08:08 Freq: Status: Active Protocol: Document 02/14/20 11:13 [facility] (Rec: 02/14/20 11:56 [facility] [id number]) OP Gait Assessment Gait Deviations General Gait Pattern Antalgic,Decreased Stride Length,Decreased Feet Clearance Factors Limiting Gait Function Factors Limiting Gait Function Pain Stair Climbing Evaluation Evaluation Level of Assist On Stairs Standby Assistance Technique/Endurance Stair Climbing Technique Step to Step PT-OP-H Neuro Start: 02/14/20 08:08 Freq: Status: Active Protocol: Document 02/14/20 11:13 SAK (Rec: 02/14/20 11:56 [facility] [id number]) Sensation Evaluation Gross Sensation Gross Sensation Right LE Impaired Sensation Description Numbness Dermatome Impairments L5 PT-OP-J Posture/Palpation/Skin Start: 12/09/20 08:08 Freq: Status: Active Protocol: Document 02/14/20 11:13 [facility] (Rec: 02/14/20 11:56 [facility] [id number]) Posture Evaluation Position Standing Head/C-Spine Posture Forward Head Shoulder Posture (L) Rounded,(R) Rounded Scapula Posture (L) Protracted,(R) Protracted Pelvis Posture Anteriorly Tilted Weight Distribution Weight Shifted Right Hip Posture (L) Externally Rotated,(R) Externally Rotated Ankle/Foot Posture (L) Pronated,(R) Pronated Foot Arch (L) Low Arch,(R) Low Arch Palpation Assessment Location Two Palpation Location pubic symphysis Palpation Findings Tenderness One Palpation Location piriformis left, left sciatic notch Palpation Findings Soft Tissue Tightness,Muscle Guarding,Tenderness,Trigger Point PT-OP-K Range of Motion Start: 02/14/20 08:08 Freq: Status: Active Protocol: Document 02/14/20 11:13 [facility] (Rec: 02/14/20 11:56 [facility] [id number]) Lumbar Spine Range of Motion Lumbar Spine Active Comments mild to mod decrease all motions but reports minimal pain LB or buttock Hip Goniometric Range of Motion Hip right passive Flexion w/Knee Flexed 120 Straight Leg Raise 65 Extension 0 Internal Rotation 30 External Rotation 55 Left passive Flexion w/Knee Flexed 110 Straight Leg Raise 70 Extension 0 Internal Rotation 25 External Rotation 60 Right Active Straight Leg Raise 55 Left Active Straight Leg Raise 60 Hip ROM Limitations Hip ROM Limitations Soft Tissue Tightness,Muscle Weakness,Pain Knee Goniometric Range of Motion Knee gloria Knee ROM WFL Yes Ankle and Foot Goniometric Range of Motion Ankle and Foot Right Active Ankle/Foot ROM WFL No Dorsiflexion with Knee Flexed 8 Dorsiflexion with Knee Extended 4 Left Ankle/Foot ROM WFL No Dorsiflexion with Knee Flexed 5 Dorsiflexion with Knee Extended 3 PT-OP-L Special Tests Start: 02/14/20 08:08 Freq: Status: Active Protocol: Document 02/14/20 11:13 [facility] (Rec: 02/14/20 11:56 [facility] [id number]) Special Tests Lumbar Spine Special Tests Josh Test Results positive for muscle tightness Standing Flexion Test Results negative Slump Test Results negative gloria Stork Test Test Results unable to tolerate Straight Leg Raise Test Results positive only for muscle tightness Hip Special Tests Straight Leg Raise Test Results positive for muscle tightness only Trendelenberg Test Results positive for muscle weakness left Piriformis Test Results positive left PT-OP-M Strength Start: 02/14/20 08:08 Freq: Status: Active Protocol: Document 02/14/20 11:13 [facility] (Rec: 02/14/20 11:56 [facility] [id number]) Hip Strength Hip Manual Muscle Testing Left Flexion (L2) 4- Good- Extension (S1) 3+ Fair+ Abduction 3+ Fair+ Adduction 4- Good- External Rotation 3+ Fair+ Internal Rotation 4- Good- Right Flexion (L2) 4 Good Extension (S1) 3+ Fair+ Abduction 4- Good- Adduction 4- Good- External Rotation 4 Good Internal Rotation 4+ Good+ Knee Strength Knee Manual Muscle Testing gloria Flexion (S2) 4+ Good+ Extension (L3) 4+ Good+ Ankle/Foot Strength Ankle and Foot Manual Muscle Testing Right Dorsiflexion (L4) 4 Good Plantarflexion (S1) 4- Good- Left Dorsiflexion (L4) 5 Normal Plantarflexion (S1) 4 Good Toe Strength Toe Manual Muscle Testing Left Extension 4- Good- Right Great Toe Extension 4 Good PT-OP-Q Treatments Start: 02/14/20 08:08 Freq: Status: Active Protocol: Document 02/14/20 11:13 [facility] (Rec: 02/14/20 11:56 [facility] [id number]) Self-Care/Home Management Treatment Education Patient Education Home Exercise Program Other Education Issued written HEP including adding butterfly stretch, increasing hold on clamshells, doing rolling as core exercise w/in painfree ROM due to c/o pain with moving in bed, partial step-ups with emphasis on core and gluteal activation progressing to step ups on low box PT-OP-R Modalities Start: 02/14/20 08:08 Freq: Status: Active Protocol: Document 02/14/20 11:13 [facility] (Rec: 02/14/20 11:56 [facility] [id number]) Hot Pack/Cold Pack Treatment Cold Pack Location left buttock, and pubic symphysis Patient Position Sidelying PT-OP-T Assessment and Plan Start: 02/14/20 08:08 Freq: Status: Active Protocol: Document 02/14/20 11:13 SAK (Rec: 02/14/20 11:56 [facility] [id number]) Physical Therapy Assessment Rehab Potential Rehabilitation Potential Good Evaluation Complexity Number of Personal Factors/Comorbidities 3 or More Number of Body Systems Impaired 3 Clinical Presentation at Evaluation Evolving Impairments Impairments Functional Mobility,Gait,Pain, ROM,Strength Goals Four Impairment muscle imbalances bilateral hips and pelvis Short Term Goal (STG) Update patient's HEP to address muscle imbalances STG Duration 03/06/20 Air Operations Manager Goal (LTG) Patient to demonstrate symmetrical ROM (w/in 5 degrees) and strength (within 1/2 grade) of all muscle groups bilateral hips and pelvis. LTG Duration 05/15/19 Three Impairment unable to roll or reposition in bed without pain in buttock [facility] Goal (LTG) Patient able to roll or reposition in bed with minimal to no pain LTG Duration 05/15/19 Two Impairment Patient unable to use alternating pattern to ambulate on stairs Short Term Goal (STG) Patient able to ascend and descend 4 stairs with alternating pattern with minimal to no pain STG Duration 03/22/19 [facility] Goal (LTG) Patient able to ascend and descend standard (6) stairs with alternating pattern with minimal to no pain LTG Duration 05/15/19 One Impairment pain gloria buttocks left greater than right, pubic pain Short Term Goal (STG) Decrease pain 50% STG Duration 03/22/19 [facility] Goal (LTG) Decrease pain by at least 75% with patient able to resume prior activity without difficulty LTG Duration 05/15/19 Assessment Summary Assessment Patient presents with function -limiting bilateral buttock pain left greater than right as well as painful pubic symphysis. Onset of pain was 5 weeks ago after prolonged sitting. Patient signs and symptoms are indicative of muscle irritation in hips and pelvis, especially left piriformis with significant muscle imbalances found with testing in hips and pelvis, as well as core muscle weakness. Neural tension signs and lumbar tests were negative. Patient has been self-managing with use of heat and ice, therapeutic exercises as previously instructed in PT. Her pain has improved, but persists at 6/10 level and feel she would benefit from physical therapy for modifications and updating of her HEP, use of manual techniques, modalities, and further movement and positioning education. Complicating her recovery is prior spinal fusion and bilateral ankle surgeries leading to gait deviations and asymmetries which also contribute to her buttock pain . She benefits highly from aquatic exercise but is not able to do that right now due to Covid19. She was instructed in modified HEP, was instructed to change her positions more frequently, try ice to pubic symphysis which we did today in addition to ice to buttock. Feel her new orthotics she is being fit for next week should be helpful as well. Physical Therapy Plan Frequency and Duration Frequency of Treatment 2x/Week Duration of Treatment 12 weeks Plan of Care Start Date 02/14/20 Plan of Care End Date 05/14/20 Therapeutic Interventions Therapeutic Interventions Home Exercise Program,Manual Therapy,Neuromuscular Re- education,Patient/Caregiver Education,Self-Care/Home Management,Soft Tissue Mobilization,Taping, Therapeutic Activities, Therapeutic Exercises Modalities Cold Pack/Ice Massage,Electric Stimulation,Hot Packs, Infrared Therapy,Ultrasound Next Visit Focus/Plan Next Note Type Treatment Note Next Visit Plan Evaluate response to recommendations at today's evaluation. Review new exercises, progress core and hip strengthening and flexibility exercises as tolerated. Ultrasound and manual therapy left buttock.
--- NOTE | 2020-02-22 15:14 | PT.OTN ---
Current Diagnoses Spinal stenosis, lumbar region without neurogenic claudication (02/22/20) Low back pain (02/22/20) Other muscle spasm (02/22/20) Difficulty in walking, not elsewhere classified (02/22/20) Weakness (02/22/20) Physical Therapy Treatment Note PT-OP-A Visit Information Start: 02/14/20 08:08 Freq: Status: Active Protocol: Document 02/22/20 12:58 SAK (Rec: 02/22/20 13:51 SAK [id number]) Out-Patient Physical Therapy Visit Information Visit Information Visit Type Treatment Note Visit Start Time 13:00 Visit Stop Time 13:54 Total Visit Minutes 54 Visit Number 2 Evaluation Information Evaluation Date 02/14/20 Precautions Precautions L4-S1 fusion ankle fusions PT-OP-B Current Condition Start: 02/14/20 08:08 Freq: Status: Active Protocol: Document 02/14/20 09:04 SAK (Rec: 02/14/20 09:30 SAK [id number]) Current Condition History of Current Condition Onset Date 5 weeks Current Complaints buttock pain gloria left greater than right, pubic pain central History of Current Condition 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 States she got up from chair, felt excrutiating pain (almost wrost pain ever had) in buttock left greater than right. States doctors think the pain coming from low back but she disagrees: I know what pain from my low back feels like. 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 Has been getting some better, can now sit, but pain persists and limits her activity. Has been seen in PT by this therapist previously and has been doing ther ex, ice, heat, using ball for self -massage. Reports hysicians wanting to refer patient to spinal surgeon due to MRI showing bulging disc at L34, but she refuses at this time. Pain worse with prolonged sitting on any surface. Because of pain can't ambulate on stairs with alternating pattern due to pain. Trying to walk. Hasn't been able to go the pool. Feels weak. Has been trying to change positions more frequently. Sleeps with a heating pad between her legs due to pubic pain. Has low back pain but states she feels more weak than painful in back. Also has peroneal tendonitis right ankle; was in a lace-up splint over past month, pain improved. Having insoles changed next week. Denies shooting pain down leg or any giving way of legs. Has EMG next week at due to persistent numbness right LE, across ankle into big toe that she has had since spinal surgery. Prior Treatments and Tests MRI spine 01/30/20. Future Testing and Treatments Planned EMG 02/21/20. Treatment Goals Patient/Caregiver Goals Decreasing pain, improving strength and activity tolerance. PT-OP-C Subjective Start: 02/14/20 08:08 Freq: Status: Active Protocol: Document 02/14/20 11:13 [facility] (Rec: 02/14/20 11:56 [facility] [id number]) OP-PT Pain Assessment Pain Assessment Grid Paper Pain Assessment Grid Completed Yes Location pubic symphysis Intensity 5 right buttock Intensity 2 left buttock Intensity 6 Pain Aggravating Factors Activity,Standing,Sitting, Stair Climbing Pain Alleviating Factors Cold,Heat,Exercise low back Intensity 2 Pain Behaviors Pain Behaviors Facial Grimacing,Guarding, Wincing PT-OP-G Mobility & Gait Start: 02/14/20 08:08 Freq: Status: Active Protocol: Document 02/14/20 11:13 [facility] (Rec: 02/14/20 11:56 [facility] [id number]) OP Gait Assessment Gait Deviations General Gait Pattern Antalgic,Decreased Stride Length,Decreased Feet Clearance Factors Limiting Gait Function Factors Limiting Gait Function Pain Stair Climbing Evaluation Evaluation Level of Assist On Stairs Standby Assistance Technique/Endurance Stair Climbing Technique Step to Step PT-OP-H Neuro Start: 02/14/20 08:08 Freq: Status: Active Protocol: Document 02/14/20 11:13 [facility] (Rec: 02/14/20 11:56 [facility] [id number]) Sensation Evaluation Gross Sensation Gross Sensation Right LE Impaired Sensation Description Numbness Dermatome Impairments L5 PT-OP-J Posture/Palpation/Skin Start: 02/14/20 08:08 Freq: Status: Active Protocol: Document 02/14/20 11:13 SAK (Rec: 02/14/20 11:56 [facility] [id number]) Posture Evaluation Position Standing Head/C-Spine Posture Forward Head Shoulder Posture (L) Rounded,(R) Rounded Scapula Posture (L) Protracted,(R) Protracted Pelvis Posture Anteriorly Tilted Weight Distribution Weight Shifted Right Hip Posture (L) Externally Rotated,(R) Externally Rotated Ankle/Foot Posture (L) Pronated,(R) Pronated Foot Arch (L) Low Arch,(R) Low Arch Palpation Assessment Location Two Palpation Location pubic symphysis Palpation Findings Tenderness One Palpation Location piriformis left, left sciatic notch Palpation Findings Soft Tissue Tightness,Muscle Guarding,Tenderness,Trigger Point PT-OP-K Range of Motion Start: 02/14/20 08:08 Freq: Status: Active Protocol: Document 02/14/20 11:13 [facility] (Rec: 02/14/20 11:56 [facility] [id number]) Lumbar Spine Range of Motion Lumbar Spine Active Comments mild to mod decrease all motions but reports minimal pain LB or buttock Hip Goniometric Range of Motion Hip right passive Flexion w/Knee Flexed 120 Straight Leg Raise 65 Extension 0 Internal Rotation 30 External Rotation 55 Left passive Flexion w/Knee Flexed 110 Straight Leg Raise 70 Extension 0 Internal Rotation 25 External Rotation 60 Right Active Straight Leg Raise 55 Left Active Straight Leg Raise 60 Hip ROM Limitations Hip ROM Limitations Soft Tissue Tightness,Muscle Weakness,Pain Knee Goniometric Range of Motion Knee gloria Knee ROM WFL Yes Ankle and Foot Goniometric Range of Motion Ankle and Foot Right Active Ankle/Foot ROM WFL No Dorsiflexion with Knee Flexed 8 Dorsiflexion with Knee Extended 4 Left Ankle/Foot ROM WFL No Dorsiflexion with Knee Flexed 5 Dorsiflexion with Knee Extended 3 PT-OP-L Special Tests Start: 02/14/20 08:08 Freq: Status: Active Protocol: Document 02/14/20 11:13 [facility] (Rec: 02/14/20 11:56 [facility] [id number]) Special Tests Lumbar Spine Special Tests Josh Test Results positive for muscle tightness Standing Flexion Test Results negative Slump Test Results negative gloria Stork Test Test Results unable to tolerate Straight Leg Raise Test Results positive only for muscle tightness Hip Special Tests Straight Leg Raise Test Results positive for muscle tightness only Trendelenberg Test Results positive for muscle weakness left Piriformis Test Results positive left PT-OP-M Strength Start: 02/14/20 08:08 Freq: Status: Active Protocol: Document 02/14/20 11:13 [facility] (Rec: 02/14/20 11:56 [facility] [id number]) Hip Strength Hip Manual Muscle Testing Left Flexion (L2) 4- Good- Extension (S1) 3+ Fair+ Abduction 3+ Fair+ Adduction 4- Good- External Rotation 3+ Fair+ Internal Rotation 4- Good- Right Flexion (L2) 4 Good Extension (S1) 3+ Fair+ Abduction 4- Good- Adduction 4- Good- External Rotation 4 Good Internal Rotation 4+ Good+ Knee Strength Knee Manual Muscle Testing gloria Flexion (S2) 4+ Good+ Extension (L3) 4+ Good+ Ankle/Foot Strength Ankle and Foot Manual Muscle Testing Right Dorsiflexion (L4) 4 Good Plantarflexion (S1) 4- Good- Left Dorsiflexion (L4) 5 Normal Plantarflexion (S1) 4 Good Toe Strength Toe Manual Muscle Testing Left Extension 4- Good- Right Great Toe Extension 4 Good PT-OP-Q Treatments Start: 02/14/20 08:08 Freq: Status: Active Protocol: Document 02/22/20 12:58 [facility] (Rec: 02/22/20 15:14 [facility] [id number]) Cardio Equipment Recumbent Stepper (Sci-Fit) Duration (Minutes) 8 Resistance 1 Seat Position 10 Therapeutic Exercises Other Exercises partial step up Resistance 6 step Reps/Minutes 10x ea Gait Training Gait Activity stair Level of Assistance 6 stairs Treatment Focus muscle activation sequencing Manual Therapy Treatment Soft Tissue Mobilization right piriformis Body Location piriformi & glutes Mobilization Type Sustained Pressure,Trigger Point Release Intensity/Depth Moderate Body Position left sidelying PT-OP-R Modalities Start: 02/14/20 08:08 Freq: Status: Active Protocol: Document 02/22/20 12:58 [facility] (Rec: 02/22/20 15:14 [facility] [id number]) Hot Pack/Cold Pack Treatment Hot Pack Location lumboscral spine & r hip Patient Position Sidelying Comments strap Ultrasound Therapy Treatment right lumbar paraspinals, piriformis Treatment Duration (minutes) 8 Patient Position Sidelying Duty Cycle 100% Intensity Setting (w/cm2) 1.4 Comments piriformis and buttock only PT-OP-T Assessment and Plan Start: 02/14/20 08:08 Freq: Status: Active Protocol: Document 02/22/20 12:58 [facility] (Rec: 02/22/20 13:51 [facility] [id number]) Physical Therapy Assessment Goals Four Impairment muscle imbalances bilateral hips and pelvis Short Term Goal (STG) Update patient's HEP to address muscle imbalances STG Duration 03/06/20 Automation Controls Engineer Goal (LTG) Patient to demonstrate symmetrical ROM (w/in 5 degrees) and strength (within 1/2 grade) of all muscle groups bilateral hips and pelvis. LTG Duration 05/15/19 Three Impairment unable to roll or reposition in bed without pain in buttock [facility] Goal (LTG) Patient able to roll or reposition in bed with minimal to no pain LTG Duration 05/15/19 Two Impairment Patient unable to use alternating pattern to ambulate on stairs Short Term Goal (STG) Patient able to ascend and descend 4 stairs with alternating pattern with minimal to no pain STG Duration 03/22/19 [facility] Goal (LTG) Patient able to ascend and descend standard (6) stairs with alternating pattern with minimal to no pain LTG Duration 05/15/19 One Impairment pain gloria buttocks left greater than right, pubic pain Short Term Goal (STG) Decrease pain 50% STG Duration 03/22/19 [facility] Goal (LTG) Decrease pain by at least 75% with patient able to resume prior activity without difficulty LTG Duration 05/15/19 Assessment Summary Assessment Patient pain improved, now able to ambulate more easily on stairs. Increased pain today after prolonged time sitting in car yesterday, but still better than when last seen. Patient reports good compliance to HEP. Right side more paionful than left today . Physical Therapy Plan Frequency and Duration Frequency of Treatment 2x/Week Duration of Treatment 12 weeks Plan of Care Start Date 02/14/20 Plan of Care End Date 05/14/20 Therapeutic Interventions Therapeutic Interventions Home Exercise Program,Manual Therapy,Neuromuscular Re- education,Patient/Caregiver Education,Self-Care/Home Management,Soft Tissue Mobilization,Taping, Therapeutic Activities, Therapeutic Exercises Modalities Cold Pack/Ice Massage,Electric Stimulation,Hot Packs, Infrared Therapy,Ultrasound Next Visit Focus/Plan Next Note Type Treatment Note Next Visit Plan Progress ther ex as tolerated. Continue modalities and manual therapy for decreased muscle tension in pain with emphasis on piriformis
--- NOTE | 2020-02-27 10:24 | PT.OTN ---
Current Diagnoses Spinal stenosis, lumbar region without neurogenic claudication (02/27/20) Low back pain (02/27/20) Other muscle spasm (02/27/20) Difficulty in walking, not elsewhere classified (02/27/20) Weakness (02/27/20) Physical Therapy Treatment Note PT-OP-A Visit Information Start: 02/14/20 08:08 Freq: Status: Active Protocol: Document 02/27/20 08:09 [facility] (Rec: 02/27/20 08:21 [facility] [id number]) Out-Patient Physical Therapy Visit Information Visit Information Visit Type Treatment Note Visit Start Time 08:15 Visit Stop Time 09:11 Total Visit Minutes 56 Visit Number 3 Evaluation Information Evaluation Date 02/14/20 Precautions Precautions L4-S1 fusion ankle fusions PT-OP-B Current Condition Start: 02/14/20 08:08 Freq: Status: Active Protocol: Document 02/14/20 09:04 [facility] (Rec: 02/14/20 09:30 [facility] [id number]) Current Condition History of Current Condition Onset Date 5 weeks Current Complaints buttock pain gloria left greater than right, pubic pain central History of Current Condition 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 States she got up from chair, felt excrutiating pain (almost wrost pain ever had) in buttock left greater than right. States doctors think the pain coming from low back but she disagrees: I know what pain from my low back feels like. 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 Has been getting some better, can now sit, but pain persists and limits her activity. Has been seen in PT by this therapist previously and has been doing ther ex, ice, heat, using ball for self -massage. Reports hysicians wanting to refer patient to spinal surgeon due to MRI showing bulging disc at L34, but she refuses at this time. Pain worse with prolonged sitting on any surface. Because of pain can't ambulate on stairs with alternating pattern due to pain. Trying to walk. Hasn't been able to go the pool. Feels weak. Has been trying to change positions more frequently. Sleeps with a heating pad between her legs due to pubic pain. Has low back pain but states she feels more weak than painful in back. Also has peroneal tendonitis right ankle; was in a lace-up splint over past month, pain improved. Having insoles changed next week. Denies shooting pain down leg or any giving way of legs. Has EMG next week at due to persistent numbness right LE, across ankle into big toe that she has had since spinal surgery. Prior Treatments and Tests MRI spine 01/30/20. Future Testing and Treatments Planned EMG 02/21/20. Treatment Goals Patient/Caregiver Goals Decreasing pain, improving strength and activity tolerance. PT-OP-C Subjective Start: 02/14/20 08:08 Freq: Status: Active Protocol: Document 02/27/20 08:09 [facility] (Rec: 02/27/20 08:21 [facility] [id number]) OP-PT Subjective Patient Comments Patient Comments Reports had increased pain yesterday, unknown reason. States she finally realized it was her pudendal nerve and used probe issued to her by women[facility] health PT and the pain went away. Didn't get results of EMG yet. Got casted for new orthotics yesterday. PT-OP-G Mobility & Gait Start: 02/14/20 08:08 Freq: Status: Active Protocol: Document 02/14/20 11:13 [facility] (Rec: 02/14/20 11:56 [facility] [id number]) OP Gait Assessment Gait Deviations General Gait Pattern Antalgic,Decreased Stride Length,Decreased Feet Clearance Factors Limiting Gait Function Factors Limiting Gait Function Pain Stair Climbing Evaluation Evaluation Level of Assist On Stairs Standby Assistance Technique/Endurance Stair Climbing Technique Step to Step PT-OP-H Neuro Start: 02/14/20 08:08 Freq: Status: Active Protocol: Document 02/14/20 11:13 [facility] (Rec: 02/14/20 11:56 [facility] [id number]) Sensation Evaluation Gross Sensation Gross Sensation Right LE Impaired Sensation Description Numbness Dermatome Impairments L5 PT-OP-J Posture/Palpation/Skin Start: 02/14/20 08:08 Freq: Status: Active Protocol: Document 02/14/20 11:13 [facility] (Rec: 02/14/20 11:56 [facility] [id number]) Posture Evaluation Position Standing Head/C-Spine Posture Forward Head Shoulder Posture (L) Rounded,(R) Rounded Scapula Posture (L) Protracted,(R) Protracted Pelvis Posture Anteriorly Tilted Weight Distribution Weight Shifted Right Hip Posture (L) Externally Rotated,(R) Externally Rotated Ankle/Foot Posture (L) Pronated,(R) Pronated Foot Arch (L) Low Arch,(R) Low Arch Palpation Assessment Location Two Palpation Location pubic symphysis Palpation Findings Tenderness One Palpation Location piriformis left, left sciatic notch Palpation Findings Soft Tissue Tightness,Muscle Guarding,Tenderness,Trigger Point PT-OP-K Range of Motion Start: 02/14/20 08:08 Freq: Status: Active Protocol: Document 02/14/20 11:13 [facility] (Rec: 02/14/20 11:56 [facility] [id number]) Lumbar Spine Range of Motion Lumbar Spine Active Comments mild to mod decrease all motions but reports minimal pain LB or buttock Hip Goniometric Range of Motion Hip right passive Flexion w/Knee Flexed 120 Straight Leg Raise 65 Extension 0 Internal Rotation 30 External Rotation 55 Left passive Flexion w/Knee Flexed 110 Straight Leg Raise 70 Extension 0 Internal Rotation 25 External Rotation 60 Right Active Straight Leg Raise 55 Left Active Straight Leg Raise 60 Hip ROM Limitations Hip ROM Limitations Soft Tissue Tightness,Muscle Weakness,Pain Knee Goniometric Range of Motion Knee gloria Knee ROM WFL Yes Ankle and Foot Goniometric Range of Motion Ankle and Foot Right Active Ankle/Foot ROM WFL No Dorsiflexion with Knee Flexed 8 Dorsiflexion with Knee Extended 4 Left Ankle/Foot ROM WFL No Dorsiflexion with Knee Flexed 5 Dorsiflexion with Knee Extended 3 PT-OP-L Special Tests Start: 02/14/20 08:08 Freq: Status: Active Protocol: Document 02/14/20 11:13 [facility] (Rec: 02/14/20 11:56 [facility] [id number]) Special Tests Lumbar Spine Special Tests Josh Test Results positive for muscle tightness Standing Flexion Test Results negative Slump Test Results negative gloria Stork Test Test Results unable to tolerate Straight Leg Raise Test Results positive only for muscle tightness Hip Special Tests Straight Leg Raise Test Results positive for muscle tightness only Trendelenberg Test Results positive for muscle weakness left Piriformis Test Results positive left PT-OP-M Strength Start: 02/14/20 08:08 Freq: Status: Active Protocol: Document 02/14/20 11:13 [facility] (Rec: 02/14/20 11:56 [facility] [id number]) Hip Strength Hip Manual Muscle Testing Left Flexion (L2) 4- Good- Extension (S1) 3+ Fair+ Abduction 3+ Fair+ Adduction 4- Good- External Rotation 3+ Fair+ Internal Rotation 4- Good- Right Flexion (L2) 4 Good Extension (S1) 3+ Fair+ Abduction 4- Good- Adduction 4- Good- External Rotation 4 Good Internal Rotation 4+ Good+ Knee Strength Knee Manual Muscle Testing gloria Flexion (S2) 4+ Good+ Extension (L3) 4+ Good+ Ankle/Foot Strength Ankle and Foot Manual Muscle Testing Right Dorsiflexion (L4) 4 Good Plantarflexion (S1) 4- Good- Left Dorsiflexion (L4) 5 Normal Plantarflexion (S1) 4 Good Toe Strength Toe Manual Muscle Testing Left Extension 4- Good- Right Great Toe Extension 4 Good PT-OP-Q Treatments Start: 02/14/20 08:08 Freq: Status: Active Protocol: Document 02/27/20 08:09 [facility] (Rec: 02/27/20 08:21 [facility] [id number]) Cardio Equipment Recumbent Stepper (Sci-Fit) Duration (Minutes) 10 Resistance 1 Seat Position 10 Manual Therapy Treatment Soft Tissue Mobilization lateral quads Mobilization Type Instrument Assisted,Rolling Intensity/Depth Moderate Body Position Sidelying IT band Mobilization Type Instrument Assisted,Rolling Intensity/Depth Moderate Body Position Sidelying right piriformis Body Location piriformi & glutes Mobilization Type Sustained Pressure,Trigger Point Release Intensity/Depth Moderate Body Position left sidelying PT-OP-R Modalities Start: 02/14/20 08:08 Freq: Status: Active Protocol: Document 02/27/20 08:09 [facility] (Rec: 02/27/20 08:21 [facility] [id number]) Hot Pack/Cold Pack Treatment Hot Pack Location lumboscral spine & r hip Patient Position Sidelying Comments strap Ultrasound Therapy Treatment right lumbar paraspinals, piriformis Treatment Duration (minutes) 8 Patient Position Sidelying Duty Cycle 100% Intensity Setting (w/cm2) 1.4 Comments piriformis and buttock only PT-OP-T Assessment and Plan Start: 02/14/20 08:08 Freq: Status: Active Protocol: Document 02/27/20 08:09 [facility] (Rec: 02/27/20 08:21 [facility] [id number]) Physical Therapy Assessment Goals Four Impairment muscle imbalances bilateral hips and pelvis Short Term Goal (STG) Update patient's HEP to address muscle imbalances STG Duration 03/06/20 [facility] Goal (LTG) Patient to demonstrate symmetrical ROM (w/in 5 degrees) and strength (within 1/2 grade) of all muscle groups bilateral hips and pelvis. LTG Duration 05/15/19 Three Impairment unable to roll or reposition in bed without pain in buttock [facility] Goal (LTG) Patient able to roll or reposition in bed with minimal to no pain LTG Duration 05/15/19 Two Impairment Patient unable to use alternating pattern to ambulate on stairs Short Term Goal (STG) Patient able to ascend and descend 4 stairs with alternating pattern with minimal to no pain STG Duration 03/22/19 [facility] Goal (LTG) Patient able to ascend and descend standard (6) stairs with alternating pattern with minimal to no pain LTG Duration 05/15/19 One Impairment pain gloria buttocks left greater than right, pubic pain Short Term Goal (STG) Decrease pain 50% STG Duration 03/22/19 [employer] Goal (LTG) Decrease pain by at least 75% with patient able to resume prior activity without difficulty LTG Duration 05/15/19 Assessment Summary Assessment Palpable tenderness and increased muscle tension and trigger point right piriformis , rightness right IT band and lateral quad decreased with treatment. Patient was able to self-manage pudendal nerve pain at home yesterday. Physical Therapy Plan Frequency and Duration Frequency of Treatment 2x/Week Duration of Treatment 12 weeks Plan of Care Start Date 02/14/20 Plan of Care End Date 05/14/20 Therapeutic Interventions Therapeutic Interventions Home Exercise Program,Manual Therapy,Neuromuscular Re- education,Patient/Caregiver Education,Self-Care/Home Management,Soft Tissue Mobilization,Taping, Therapeutic Activities, Therapeutic Exercises Modalities Cold Pack/Ice Massage,Electric Stimulation,Hot Packs, Infrared Therapy,Ultrasound Next Visit Focus/Plan Next Note Type Treatment Note
--- NOTE | 2020-03-04 16:36 | PT.OTN ---
Current Diagnoses Spinal stenosis, lumbar region without neurogenic claudication (03/04/20) Low back pain (03/04/20) Other muscle spasm (03/04/20) Difficulty in walking, not elsewhere classified (03/04/20) Weakness (03/04/20) Physical Therapy Treatment Note PT-OP-A Visit Information Start: 02/14/20 08:08 Freq: Status: Active Protocol: Document 03/04/20 14:31 [facility] (Rec: 03/04/20 14:57 [facility] [id number]) Out-Patient Physical Therapy Visit Information Visit Information Visit Type Treatment Note Visit Start Time 14:32 Visit Stop Time 15:27 Total Visit Minutes 55 Visit Number 4 Evaluation Information Evaluation Date 02/14/20 Precautions Precautions L4-S1 fusion ankle fusions PT-OP-B Current Condition Start: 02/14/20 08:08 Freq: Status: Active Protocol: Document 02/14/20 09:04 [facility] (Rec: 02/14/20 09:30 [facility] [id number]) Current Condition History of Current Condition Onset Date 5 weeks Current Complaints buttock pain gloria left greater than right, pubic pain central History of Current Condition 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 States she got up from chair, felt excrutiating pain (almost wrost pain ever had) in buttock left greater than right. States doctors think the pain coming from low back but she disagrees: I know what pain from my low back feels like. 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 Has been getting some better, can now sit, but pain persists and limits her activity. Has been seen in PT by this therapist previously and has been doing ther ex, ice, heat, using ball for self -massage. Reports hysicians wanting to refer patient to spinal surgeon due to MRI showing bulging disc at L34, but she refuses at this time. Pain worse with prolonged sitting on any surface. Because of pain can't ambulate on stairs with alternating pattern due to pain. Trying to walk. Hasn't been able to go the pool. Feels weak. Has been trying to change positions more frequently. Sleeps with a heating pad between her legs due to pubic pain. Has low back pain but states she feels more weak than painful in back. Also has peroneal tendonitis right ankle; was in a lace-up splint over past month, pain improved. Having insoles changed next week. Denies shooting pain down leg or any giving way of legs. Has EMG next week at due to persistent numbness right LE, across ankle into big toe that she has had since spinal surgery. Prior Treatments and Tests MRI spine 01/30/20. Future Testing and Treatments Planned EMG 02/21/20. Treatment Goals Patient/Caregiver Goals Decreasing pain, improving strength and activity tolerance. PT-OP-C Subjective Start: 02/14/20 08:08 Freq: Status: Active Protocol: Document 03/04/20 14:31 [facility] (Rec: 03/04/20 14:57 [facility] [id number]) OP-PT Subjective Patient Comments Patient Comments No EMG results yet. Saw doctor regarding MRI with Dr. Palacios, issues at L34 pelvis looks good. No issues seen in SI. Patient reports she hould get new orthotics right after the first of the year. States her low back hurts right away in the am but improves after getting up and moving. Still painful to sit, though not as bad. Both hips /buttocks hurt right greater than left. PT-OP-G Mobility & Gait Start: 02/14/20 08:08 Freq: Status: Active Protocol: Document 02/14/20 11:13 [facility] (Rec: 02/14/20 11:56 [facility] [id number]) OP Gait Assessment Gait Deviations General Gait Pattern Antalgic,Decreased Stride Length,Decreased Feet Clearance Factors Limiting Gait Function Factors Limiting Gait Function Pain Stair Climbing Evaluation Evaluation Level of Assist On Stairs Standby Assistance Technique/Endurance Stair Climbing Technique Step to Step PT-OP-H Neuro Start: 02/14/20 08:08 Freq: Status: Active Protocol: Document 02/14/20 11:13 [facility] (Rec: 02/14/20 11:56 [facility] [id number]) Sensation Evaluation Gross Sensation Gross Sensation Right LE Impaired Sensation Description Numbness Dermatome Impairments L5 PT-OP-J Posture/Palpation/Skin Start: 02/14/20 08:08 Freq: Status: Active Protocol: Document 02/14/20 11:13 [facility] (Rec: 02/14/20 11:56 [facility] [id number]) Posture Evaluation Position Standing Head/C-Spine Posture Forward Head Shoulder Posture (L) Rounded,(R) Rounded Scapula Posture (L) Protracted,(R) Protracted Pelvis Posture Anteriorly Tilted Weight Distribution Weight Shifted Right Hip Posture (L) Externally Rotated,(R) Externally Rotated Ankle/Foot Posture (L) Pronated,(R) Pronated Foot Arch (L) Low Arch,(R) Low Arch Palpation Assessment Location Two Palpation Location pubic symphysis Palpation Findings Tenderness One Palpation Location piriformis left, left sciatic notch Palpation Findings Soft Tissue Tightness,Muscle Guarding,Tenderness,Trigger Point PT-OP-K Range of Motion Start: 02/14/20 08:08 Freq: Status: Active Protocol: Document 02/14/20 11:13 [facility] (Rec: 02/14/20 11:56 [facility] [id number]) Lumbar Spine Range of Motion Lumbar Spine Active Comments mild to mod decrease all motions but reports minimal pain LB or buttock Hip Goniometric Range of Motion Hip right passive Flexion w/Knee Flexed 120 Straight Leg Raise 65 Extension 0 Internal Rotation 30 External Rotation 55 Left passive Flexion w/Knee Flexed 110 Straight Leg Raise 70 Extension 0 Internal Rotation 25 External Rotation 60 Right Active Straight Leg Raise 55 Left Active Straight Leg Raise 60 Hip ROM Limitations Hip ROM Limitations Soft Tissue Tightness,Muscle Weakness,Pain Knee Goniometric Range of Motion Knee gloria Knee ROM WFL Yes Ankle and Foot Goniometric Range of Motion Ankle and Foot Right Active Ankle/Foot ROM WFL No Dorsiflexion with Knee Flexed 8 Dorsiflexion with Knee Extended 4 Left Ankle/Foot ROM WFL No Dorsiflexion with Knee Flexed 5 Dorsiflexion with Knee Extended 3 PT-OP-L Special Tests Start: 02/14/20 08:08 Freq: Status: Active Protocol: Document 02/14/20 11:13 [facility] (Rec: 02/14/20 11:56 [facility] [id number]) Special Tests Lumbar Spine Special Tests Josh Test Results positive for muscle tightness Standing Flexion Test Results negative Slump Test Results negative gloria Stork Test Test Results unable to tolerate Straight Leg Raise Test Results positive only for muscle tightness Hip Special Tests Straight Leg Raise Test Results positive for muscle tightness only Trendelenberg Test Results positive for muscle weakness left Piriformis Test Results positive left PT-OP-M Strength Start: 02/14/20 08:08 Freq: Status: Active Protocol: Document 02/14/20 11:13 [facility] (Rec: 02/14/20 11:56 [facility] [id number]) Hip Strength Hip Manual Muscle Testing Left Flexion (L2) 4- Good- Extension (S1) 3+ Fair+ Abduction 3+ Fair+ Adduction 4- Good- External Rotation 3+ Fair+ Internal Rotation 4- Good- Right Flexion (L2) 4 Good Extension (S1) 3+ Fair+ Abduction 4- Good- Adduction 4- Good- External Rotation 4 Good Internal Rotation 4+ Good+ Knee Strength Knee Manual Muscle Testing gloria Flexion (S2) 4+ Good+ Extension (L3) 4+ Good+ Ankle/Foot Strength Ankle and Foot Manual Muscle Testing Right Dorsiflexion (L4) 4 Good Plantarflexion (S1) 4- Good- Left Dorsiflexion (L4) 5 Normal Plantarflexion (S1) 4 Good Toe Strength Toe Manual Muscle Testing Left Extension 4- Good- Right Great Toe Extension 4 Good PT-OP-Q Treatments Start: 02/14/20 08:08 Freq: Status: Active Protocol: Document 03/04/20 14:31 [facility] (Rec: 03/04/20 14:57 [facility] [id number]) Cardio Equipment Recumbent Stepper (Sci-Fit) Duration (Minutes) 10 Resistance 1 Seat Position 10 Therapeutic Exercises Sitting Exercises ball press Reps/Minutes 5x Standing Exercises modified plank Reps/Minutes 5x Comments forearms on therapy ball, verbal and manual cues for spinal alignment, safe Therapeutic Activity Therapeutic Activity sit to stand Name focus on neutral spine & glute & core control Reps/Minutes 3 Comments cues for neutral LE's ( observed to be sitting and transitioned sit to stand with LE's ER) Manual Therapy Treatment Soft Tissue Mobilization lateral quads Mobilization Type Instrument Assisted,Rolling Intensity/Depth Moderate Body Position Sidelying IT band Mobilization Type Instrument Assisted,Rolling Intensity/Depth Moderate Body Position Sidelying right piriformis Body Location piriformi & glutes Mobilization Type Sustained Pressure,Trigger Point Release Intensity/Depth Moderate Body Position left sidelying Self-Care/Home Management Treatment Education Patient Education Body Mechanics,Posture Other Education Importance of neutral LE alignment in sitting and with sit to stand transition. PT-OP-R Modalities Start: 02/14/20 08:08 Freq: Status: Active Protocol: Document 03/04/20 14:31 [facility] (Rec: 03/04/20 14:57 [facility] [id number]) Hot Pack/Cold Pack Treatment Hot Pack Location lumboscral spine & r hip Patient Position Sidelying Comments strap Ultrasound Therapy Treatment right lumbar paraspinals, piriformis Treatment Duration (minutes) 8 Patient Position Sidelying Duty Cycle 100% Intensity Setting (w/cm2) 1.4 Comments piriformis and buttock only PT-OP-T Assessment and Plan Start: 02/14/20 08:08 Freq: Status: Active Protocol: Document 03/04/20 14:31 [facility] (Rec: 03/04/20 14:57 [facility] [id number]) Physical Therapy Assessment Goals Four Impairment muscle imbalances bilateral hips and pelvis Short Term Goal (STG) Update patient's HEP to address muscle imbalances STG Duration 03/06/20 [employer] Goal (LTG) Patient to demonstrate symmetrical ROM (w/in 5 degrees) and strength (within 1/2 grade) of all muscle groups bilateral hips and pelvis. LTG Duration 05/15/19 Three Impairment unable to roll or reposition in bed without pain in buttock [employer] Goal (LTG) Patient able to roll or reposition in bed with minimal to no pain LTG Duration 05/15/19 Two Impairment Patient unable to use alternating pattern to ambulate on stairs Short Term Goal (STG) Patient able to ascend and descend 4 stairs with alternating pattern with minimal to no pain STG Duration 03/22/19 Half-Way Goal (LTG) Patient able to ascend and descend standard (6) stairs with alternating pattern with minimal to no pain LTG Duration 05/15/19 One Impairment pain gloria buttocks left greater than right, pubic pain Short Term Goal (STG) Decrease pain 50% STG Duration 03/22/19 Half-Way Goal (LTG) Decrease pain by at least 75% with patient able to resume prior activity without difficulty LTG Duration 05/15/19 Assessment Summary Assessment Patient demonstrated good understanding of importance of LE alignment in sitting and reports she thinks when she does her crafts she tends toward excess ER with feet together as noted by PT today. May want to consider cushion for improved sitting tolerance of alignment correction doesn't improve sitting tolerance; will explore options Physical Therapy Plan Frequency and Duration Frequency of Treatment 2x/Week Duration of Treatment 12 weeks Plan of Care Start Date 02/14/20 Plan of Care End Date 05/14/20 Therapeutic Interventions Therapeutic Interventions Home Exercise Program,Manual Therapy,Neuromuscular Re- education,Patient/Caregiver Education,Self-Care/Home Management,Soft Tissue Mobilization,Taping, Therapeutic Activities, Therapeutic Exercises Modalities Cold Pack/Ice Massage,Electric Stimulation,Hot Packs, Infrared Therapy,Ultrasound Next Visit Focus/Plan Next Note Type Treatment Note Next Visit Plan Progress ther ex as tolerated, functional retraining. Continue modalities and manual therapy for decreased muscle tension in pain with emphasis on piriformis
--- NOTE | 2020-03-07 16:23 | PT.OTN ---
Current Diagnoses Spinal stenosis, lumbar region without neurogenic claudication (03/07/20) Low back pain (03/07/20) Other muscle spasm (03/07/20) Difficulty in walking, not elsewhere classified (03/07/20) Weakness (03/07/20) Physical Therapy Treatment Note PT-OP-A Visit Information Start: 02/14/20 08:08 Freq: Status: Active Protocol: Document 03/07/20 14:35 SAK (Rec: 03/07/20 15:18 SAK [id number]) Out-Patient Physical Therapy Visit Information Visit Information Visit Type Treatment Note Visit Start Time 14:32 Visit Stop Time 15:27 Total Visit Minutes 55 Visit Number 5 Evaluation Information Evaluation Date 02/14/20 Precautions Precautions L4-S1 fusion ankle fusions PT-OP-B Current Condition Start: 02/14/20 08:08 Freq: Status: Active Protocol: Document 02/14/20 09:04 SAK (Rec: 02/14/20 09:30 SAK [id number]) Current Condition History of Current Condition Onset Date 5 weeks Current Complaints buttock pain gloria left greater than right, pubic pain central History of Current Condition 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 States she got up from chair, felt excrutiating pain (almost wrost pain ever had) in buttock left greater than right. States doctors think the pain coming from low back but she disagrees: I know what pain from my low back feels like. 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 Has been getting some better, can now sit, but pain persists and limits her activity. Has been seen in PT by this therapist previously and has been doing ther ex, ice, heat, using ball for self -massage. Reports hysicians wanting to refer patient to spinal surgeon due to MRI showing bulging disc at L34, but she refuses at this time. Pain worse with prolonged sitting on any surface. Because of pain can't ambulate on stairs with alternating pattern due to pain. Trying to walk. Hasn't been able to go the pool. Feels weak. Has been trying to change positions more frequently. Sleeps with a heating pad between her legs due to pubic pain. Has low back pain but states she feels more weak than painful in back. Also has peroneal tendonitis right ankle; was in a lace-up splint over past month, pain improved. Having insoles changed next week. Denies shooting pain down leg or any giving way of legs. Has EMG next week at due to persistent numbness right LE, across ankle into big toe that she has had since spinal surgery. Prior Treatments and Tests MRI spine 01/30/20. Future Testing and Treatments Planned EMG 02/21/20. Treatment Goals Patient/Caregiver Goals Decreasing pain, improving strength and activity tolerance. PT-OP-C Subjective Start: 02/14/20 08:08 Freq: Status: Active Protocol: Document 03/07/20 14:35 SAK (Rec: 03/07/20 15:18 SAK [id number]) OP-PT Subjective Patient Comments Patient Comments Has been feeling a lot better compliant to HEP. Reports was washing her usual shoes, put her Hoka's on today, feels more stable. PT-OP-G Mobility & Gait Start: 02/14/20 08:08 Freq: Status: Active Protocol: Document 02/14/20 11:13 SAK (Rec: 02/14/20 11:56 [facility] [id number]) OP Gait Assessment Gait Deviations General Gait Pattern Antalgic,Decreased Stride Length,Decreased Feet Clearance Factors Limiting Gait Function Factors Limiting Gait Function Pain Stair Climbing Evaluation Evaluation Level of Assist On Stairs Standby Assistance Technique/Endurance Stair Climbing Technique Step to Step PT-OP-H Neuro Start: 02/14/20 08:08 Freq: Status: Active Protocol: Document 02/14/20 11:13 SAK (Rec: 02/14/20 11:56 [facility] [id number]) Sensation Evaluation Gross Sensation Gross Sensation Right LE Impaired Sensation Description Numbness Dermatome Impairments L5 PT-OP-J Posture/Palpation/Skin Start: 02/14/20 08:08 Freq: Status: Active Protocol: Document 02/14/20 11:13 SAK (Rec: 02/14/20 11:56 [facility] [id number]) Posture Evaluation Position Standing Head/C-Spine Posture Forward Head Shoulder Posture (L) Rounded,(R) Rounded Scapula Posture (L) Protracted,(R) Protracted Pelvis Posture Anteriorly Tilted Weight Distribution Weight Shifted Right Hip Posture (L) Externally Rotated,(R) Externally Rotated Ankle/Foot Posture (L) Pronated,(R) Pronated Foot Arch (L) Low Arch,(R) Low Arch Palpation Assessment Location Two Palpation Location pubic symphysis Palpation Findings Tenderness One Palpation Location piriformis left, left sciatic notch Palpation Findings Soft Tissue Tightness,Muscle Guarding,Tenderness,Trigger Point PT-OP-K Range of Motion Start: 02/14/20 08:08 Freq: Status: Active Protocol: Document 02/14/20 11:13 [facility] (Rec: 02/14/20 11:56 [facility] [id number]) Lumbar Spine Range of Motion Lumbar Spine Active Comments mild to mod decrease all motions but reports minimal pain LB or buttock Hip Goniometric Range of Motion Hip right passive Flexion w/Knee Flexed 120 Straight Leg Raise 65 Extension 0 Internal Rotation 30 External Rotation 55 Left passive Flexion w/Knee Flexed 110 Straight Leg Raise 70 Extension 0 Internal Rotation 25 External Rotation 60 Right Active Straight Leg Raise 55 Left Active Straight Leg Raise 60 Hip ROM Limitations Hip ROM Limitations Soft Tissue Tightness,Muscle Weakness,Pain Knee Goniometric Range of Motion Knee gloria Knee ROM WFL Yes Ankle and Foot Goniometric Range of Motion Ankle and Foot Right Active Ankle/Foot ROM WFL No Dorsiflexion with Knee Flexed 8 Dorsiflexion with Knee Extended 4 Left Ankle/Foot ROM WFL No Dorsiflexion with Knee Flexed 5 Dorsiflexion with Knee Extended 3 PT-OP-L Special Tests Start: 02/14/20 08:08 Freq: Status: Active Protocol: Document 02/14/20 11:13 [facility] (Rec: 02/14/20 11:56 [facility] [id number]) Special Tests Lumbar Spine Special Tests Josh Test Results positive for muscle tightness Standing Flexion Test Results negative Slump Test Results negative gloria Stork Test Test Results unable to tolerate Straight Leg Raise Test Results positive only for muscle tightness Hip Special Tests Straight Leg Raise Test Results positive for muscle tightness only Trendelenberg Test Results positive for muscle weakness left Piriformis Test Results positive left PT-OP-M Strength Start: 02/14/20 08:08 Freq: Status: Active Protocol: Document 02/14/20 11:13 [facility] (Rec: 02/14/20 11:56 [facility] [id number]) Hip Strength Hip Manual Muscle Testing Left Flexion (L2) 4- Good- Extension (S1) 3+ Fair+ Abduction 3+ Fair+ Adduction 4- Good- External Rotation 3+ Fair+ Internal Rotation 4- Good- Right Flexion (L2) 4 Good Extension (S1) 3+ Fair+ Abduction 4- Good- Adduction 4- Good- External Rotation 4 Good Internal Rotation 4+ Good+ Knee Strength Knee Manual Muscle Testing gloria Flexion (S2) 4+ Good+ Extension (L3) 4+ Good+ Ankle/Foot Strength Ankle and Foot Manual Muscle Testing Right Dorsiflexion (L4) 4 Good Plantarflexion (S1) 4- Good- Left Dorsiflexion (L4) 5 Normal Plantarflexion (S1) 4 Good Toe Strength Toe Manual Muscle Testing Left Extension 4- Good- Right Great Toe Extension 4 Good PT-OP-Q Treatments Start: 02/14/20 08:08 Freq: Status: Active Protocol: Document 03/07/20 14:35 [facility] (Rec: 03/07/20 15:18 SAK [id number]) Cardio Equipment Recumbent Stepper (Sci-Fit) Duration (Minutes) 10 Resistance 1 Seat Position 10 Other verbal and manual cues for LE alignment, core activation Gym Equipment Shuttle Balance 1 Details chains red: bal and wt shift fwd and side Therapeutic Exercises Supine Exercises multifidi activation Reps/Minutes 10x automatic core engagement Supine Exercise Name isometric push down with arms against ball Reps/Minutes 5x ea TrA activation Reps/Minutes 5x Sitting Exercises ball press Reps/Minutes 5x ea Comments forward, diagonal Standing Exercises modified plank Reps/Minutes 5x Comments forearms on therapy ball, verbal and manual cues for spinal alignment, safe Therapeutic Activity Therapeutic Activity sit to stand Name focus on neutral spine & glute & core control Reps/Minutes 3 Comments cues for neutral LE's ( observed to be sitting and transitioned sit to stand with LE's ER) Manual Therapy Treatment Soft Tissue Mobilization lateral quads Mobilization Type Instrument Assisted,Rolling Intensity/Depth Moderate Body Position Sidelying IT band Mobilization Type Instrument Assisted,Rolling Intensity/Depth Moderate Body Position Sidelying right piriformis Body Location piriformi & glutes Mobilization Type Sustained Pressure,Trigger Point Release Intensity/Depth Moderate Body Position left sidelying Self-Care/Home Management Treatment Education Patient Education Body Mechanics,Posture Other Education Importance of neutral LE alignment in sitting and with sit to stand transition. PT-OP-R Modalities Start: 02/14/20 08:08 Freq: Status: Active Protocol: Document 03/04/20 14:31 [facility] (Rec: 03/04/20 14:57 [facility] [id number]) Hot Pack/Cold Pack Treatment Hot Pack Location lumboscral spine & r hip Patient Position Sidelying Comments strap Ultrasound Therapy Treatment right lumbar paraspinals, piriformis Treatment Duration (minutes) 8 Patient Position Sidelying Duty Cycle 100% Intensity Setting (w/cm2) 1.4 Comments piriformis and buttock only PT-OP-T Assessment and Plan Start: 02/14/20 08:08 Freq: Status: Active Protocol: Document 03/07/20 14:35 [facility] (Rec: 03/07/20 15:18 [facility] [id number]) Physical Therapy Assessment Goals Four Impairment muscle imbalances bilateral hips and pelvis Short Term Goal (STG) Update patient's HEP to address muscle imbalances STG Duration 03/06/20 Skilled Nursing Goal (LTG) Patient to demonstrate symmetrical ROM (w/in 5 degrees) and strength (within 1/2 grade) of all muscle groups bilateral hips and pelvis. LTG Duration 05/15/19 Three Impairment unable to roll or reposition in bed without pain in buttock Personal Consultant Goal (LTG) Patient able to roll or reposition in bed with minimal to no pain LTG Duration 05/15/19 Oswestry disability index score Impairment Activity intolerance, Oswestry disability index score 62% Personal Consultant Goal (LTG) decrease score to no greater than 30% to help patient resume prior level of function Two Impairment Patient unable to use alternating pattern to ambulate on stairs Short Term Goal (STG) Patient able to ascend and descend 4 stairs with alternating pattern with minimal to no pain STG Duration 03/22/19 Personal Consultant Goal (LTG) Patient able to ascend and descend standard (6) stairs with alternating pattern with minimal to no pain LTG Duration 05/15/19 One Impairment pain gloria buttocks left greater than right, pubic pain Short Term Goal (STG) Decrease pain 50% STG Duration 03/22/19 Skilled Nursing Goal (LTG) Decrease pain by at least 75% with patient able to resume prior activity without difficulty LTG Duration 05/15/19 Progress Towards Goals Progress Towards Goals Progressing Toward Goals Assessment Summary Assessment Patient pain decreasing, improved function. Physical Therapy Plan Frequency and Duration Frequency of Treatment 2x/Week Duration of Treatment 12 weeks Plan of Care Start Date 02/14/20 Plan of Care End Date 05/14/20 Therapeutic Interventions Therapeutic Interventions Home Exercise Program,Manual Therapy,Neuromuscular Re- education,Patient/Caregiver Education,Self-Care/Home Management,Soft Tissue Mobilization,Taping, Therapeutic Activities, Therapeutic Exercises Modalities Cold Pack/Ice Massage,Electric Stimulation,Hot Packs, Infrared Therapy,Ultrasound Next Visit Focus/Plan Next Note Type Treatment Note Next Visit Plan REview ball exercises, evaluate response to use of shuttle balance last session for stabilization ex.
--- NOTE | 2020-03-11 16:37 | PT.OTN ---
Current Diagnoses Spinal stenosis, lumbar region without neurogenic claudication (03/11/20) Low back pain (03/11/20) Other muscle spasm (03/11/20) Difficulty in walking, not elsewhere classified (03/11/20) Weakness (03/11/20) Physical Therapy Treatment Note PT-OP-A Visit Information Start: 02/14/20 08:08 Freq: Status: Active Protocol: Document 03/11/20 14:30 SAK (Rec: 03/11/20 16:36 SAK [id number]) Out-Patient Physical Therapy Visit Information Visit Information Visit Type Treatment Note Visit Note Feels multifidi exercise well. Has phone conversation with physician tomorrow to follow up regarding EMG, discuss peroneal nerve damage. States having difficulty getting a good stretch to her groin. 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 States she got up from chair, felt excrutiating pain (almost wrost pain ever had) in buttock left greater than right. States doctors think the pain coming from low back but she disagrees: I know what pain from my low back feels like. 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 Has been getting some better, can now sit, but pain persists and limits her activity. Has been seen in PT by this therapist previously and has been doing ther ex, ice, heat, using ball for self -massage. Reports hysicians wanting to refer patient to spinal surgeon due to MRI showing bulging disc at L34, but she refuses at this time. Pain worse with prolonged sitting on any surface. Because of pain can't ambulate on stairs with alternating pattern due to pain. Trying to walk. Hasn't been able to go the pool. Feels weak. Has been trying to change positions more frequently. Sleeps with a heating pad between her legs due to pubic pain. Has low back pain but states she feels more weak than painful in back. Also has peroneal tendonitis right ankle; was in a lace-up splint over past month, pain improved. Having insoles changed next week. Denies shooting pain down leg or any giving way of legs. Has EMG next week at due to persistent numbness right LE, across ankle into big toe that she has had since spinal surgery. Prior Treatments and Tests MRI spine 01/30/20. Future Testing and Treatments Planned EMG 02/21/20. Treatment Goals Patient/Caregiver Goals Decreasing pain, improving strength and activity tolerance. PT-OP-C Subjective Start: 02/14/20 08:08 Freq: Status: Active Protocol: Document 03/07/20 14:35 SAK (Rec: 03/07/20 15:18 SAK [id number]) OP-PT Subjective Patient Comments Patient Comments Has been feeling a lot better compliant to HEP. Reports was washing her usual shoes, put her Hoka's on today, feels more stable. PT-OP-G Mobility & Gait Start: 02/14/20 08:08 Freq: Status: Active Protocol: Document 02/14/20 11:13 SAK (Rec: 02/14/20 11:56 [facility] [id number]) OP Gait Assessment Gait Deviations General Gait Pattern Antalgic,Decreased Stride Length,Decreased Feet Clearance Factors Limiting Gait Function Factors Limiting Gait Function Pain Stair Climbing Evaluation Evaluation Level of Assist On Stairs Standby Assistance Technique/Endurance Stair Climbing Technique Step to Step PT-OP-H Neuro Start: 02/14/20 08:08 Freq: Status: Active Protocol: Document 02/14/20 11:13 SAK (Rec: 02/14/20 11:56 [facility] [id number]) Sensation Evaluation Gross Sensation Gross Sensation Right LE Impaired Sensation Description Numbness Dermatome Impairments L5 PT-OP-J Posture/Palpation/Skin Start: 02/14/20 08:08 Freq: Status: Active Protocol: Document 02/14/20 11:13 SAK (Rec: 02/14/20 11:56 [facility] [id number]) Posture Evaluation Position Standing Head/C-Spine Posture Forward Head Shoulder Posture (L) Rounded,(R) Rounded Scapula Posture (L) Protracted,(R) Protracted Pelvis Posture Anteriorly Tilted Weight Distribution Weight Shifted Right Hip Posture (L) Externally Rotated,(R) Externally Rotated Ankle/Foot Posture (L) Pronated,(R) Pronated Foot Arch (L) Low Arch,(R) Low Arch Palpation Assessment Location Two Palpation Location pubic symphysis Palpation Findings Tenderness One Palpation Location piriformis left, left sciatic notch Palpation Findings Soft Tissue Tightness,Muscle Guarding,Tenderness,Trigger Point PT-OP-K Range of Motion Start: 02/14/20 08:08 Freq: Status: Active Protocol: Document 02/14/20 11:13 [facility] (Rec: 02/14/20 11:56 [facility] [id number]) Lumbar Spine Range of Motion Lumbar Spine Active Comments mild to mod decrease all motions but reports minimal pain LB or buttock Hip Goniometric Range of Motion Hip right passive Flexion w/Knee Flexed 120 Straight Leg Raise 65 Extension 0 Internal Rotation 30 External Rotation 55 Left passive Flexion w/Knee Flexed 110 Straight Leg Raise 70 Extension 0 Internal Rotation 25 External Rotation 60 Right Active Straight Leg Raise 55 Left Active Straight Leg Raise 60 Hip ROM Limitations Hip ROM Limitations Soft Tissue Tightness,Muscle Weakness,Pain Knee Goniometric Range of Motion Knee gloria Knee ROM WFL Yes Ankle and Foot Goniometric Range of Motion Ankle and Foot Right Active Ankle/Foot ROM WFL No Dorsiflexion with Knee Flexed 8 Dorsiflexion with Knee Extended 4 Left Ankle/Foot ROM WFL No Dorsiflexion with Knee Flexed 5 Dorsiflexion with Knee Extended 3 PT-OP-L Special Tests Start: 02/14/20 08:08 Freq: Status: Active Protocol: Document 02/14/20 11:13 [facility] (Rec: 02/14/20 11:56 [facility] [id number]) Special Tests Lumbar Spine Special Tests Josh Test Results positive for muscle tightness Standing Flexion Test Results negative Slump Test Results negative gloria Stork Test Test Results unable to tolerate Straight Leg Raise Test Results positive only for muscle tightness Hip Special Tests Straight Leg Raise Test Results positive for muscle tightness only Trendelenberg Test Results positive for muscle weakness left Piriformis Test Results positive left PT-OP-M Strength Start: 02/14/20 08:08 Freq: Status: Active Protocol: Document 02/14/20 11:13 [facility] (Rec: 02/14/20 11:56 [facility] [id number]) Hip Strength Hip Manual Muscle Testing Left Flexion (L2) 4- Good- Extension (S1) 3+ Fair+ Abduction 3+ Fair+ Adduction 4- Good- External Rotation 3+ Fair+ Internal Rotation 4- Good- Right Flexion (L2) 4 Good Extension (S1) 3+ Fair+ Abduction 4- Good- Adduction 4- Good- External Rotation 4 Good Internal Rotation 4+ Good+ Knee Strength Knee Manual Muscle Testing gloria Flexion (S2) 4+ Good+ Extension (L3) 4+ Good+ Ankle/Foot Strength Ankle and Foot Manual Muscle Testing Right Dorsiflexion (L4) 4 Good Plantarflexion (S1) 4- Good- Left Dorsiflexion (L4) 5 Normal Plantarflexion (S1) 4 Good Toe Strength Toe Manual Muscle Testing Left Extension 4- Good- Right Great Toe Extension 4 Good PT-OP-Q Treatments Start: 02/14/20 08:08 Freq: Status: Active Protocol: Document 03/11/20 14:30 [facility] (Rec: 03/11/20 16:36 [facility] [id number]) Cardio Equipment Recumbent Stepper (Sci-Fit) Duration (Minutes) 10 Resistance 1.5 Seat Position 11 Other verbal and manual cues for LE alignment, core activation Gym Equipment Shuttle Balance 1 Details chains red: bal and wt shift fwd and side Therapeutic Exercises Supine Exercises multifidi activation Reps/Minutes 10x Sitting Exercises multifidi activation Reps/Minutes 5x5 IT band strech Equipment Used stool Reps/Minutes 2x30 adductor stretch Equipment Used stool Reps/Minutes 2x30 ball press Reps/Minutes 5x ea Comments forward, diagonal Manual Therapy Treatment Soft Tissue Mobilization lateral quads Mobilization Type Myofascial Release,Rolling Intensity/Depth Moderate Body Position Sidelying IT band Mobilization Type Myofascial Release,Rolling Intensity/Depth Moderate Body Position Sidelying PT-OP-R Modalities Start: 02/14/20 08:08 Freq: Status: Active Protocol: Document 03/11/20 14:30 [facility] (Rec: 03/11/20 16:36 [facility] [id number]) Hot Pack/Cold Pack Treatment Hot Pack Location lumboscral spine Patient Position Supine PT-OP-T Assessment and Plan Start: 02/14/20 08:08 Freq: Status: Active Protocol: Document 03/11/20 14:30 [facility] (Rec: 03/11/20 16:36 SAK [id number]) Physical Therapy Assessment Goals Four Impairment muscle imbalances bilateral hips and pelvis Short Term Goal (STG) Update patient's HEP to address muscle imbalances STG Duration 03/06/20 Halfway Goal (LTG) Patient to demonstrate symmetrical ROM (w/in 5 degrees) and strength (within 1/2 grade) of all muscle groups bilateral hips and pelvis. LTG Duration 05/14/20 Three Impairment unable to roll or reposition in bed without pain in buttock Drill Foreman Goal (LTG) Patient able to roll or reposition in bed with minimal to no pain LTG Duration 05/14/20 Oswestry disability index score Impairment Activity intolerance, Oswestry disability index score 62% Halfway Goal (LTG) decrease score to no greater than 30% to help patient resume prior level of function Two Impairment Patient unable to use alternating pattern to ambulate on stairs Short Term Goal (STG) Patient able to ascend and descend 4 stairs with alternating pattern with minimal to no pain STG Duration 03/22/19 Halfway Goal (LTG) Patient able to ascend and descend standard (6) stairs with alternating pattern with minimal to no pain LTG Duration 05/14/20 One Impairment pain gloria buttocks left greater than right, pubic pain Short Term Goal (STG) Decrease pain 50% STG Duration 03/22/20 Drill Foreman Goal (LTG) Decrease pain by at least 75% with patient able to resume prior activity without difficulty LTG Duration 05/14/20 Progress Towards Goals Progress Towards Goals Progressing Toward Goals Assessment Summary Assessment Patient experienced good adductor and ITband stretches in sitting with LE on stool, using strap; easier for her to do than supine. Updated written HEP to include these. Will find out about EMG tomorrow. Physical Therapy Plan Frequency and Duration Frequency of Treatment 2x/Week Duration of Treatment 12 weeks Plan of Care Start Date 02/14/20 Plan of Care End Date 05/14/20 Therapeutic Interventions Therapeutic Interventions Home Exercise Program,Manual Therapy,Neuromuscular Re- education,Patient/Caregiver Education,Self-Care/Home Management,Soft Tissue Mobilization,Taping, Therapeutic Activities, Therapeutic Exercises Modalities Cold Pack/Ice Massage,Electric Stimulation,Hot Packs, Infrared Therapy,Ultrasound Next Visit Focus/Plan Next Note Type Treatment Note Next Visit Plan Review updated HEP, closed chain functional exercises as tolerated.
--- NOTE | 2020-03-14 15:44 | PT.OTN ---
Current Diagnoses Spinal stenosis, lumbar region without neurogenic claudication (03/14/20) Low back pain (03/14/20) Other muscle spasm (03/14/20) Difficulty in walking, not elsewhere classified (03/14/20) Weakness (03/14/20) Physical Therapy Treatment Note PT-OP-A Visit Information Start: 02/14/20 08:08 Freq: Status: Active Protocol: Document 03/14/20 14:30 SAK (Rec: 03/14/20 14:55 SAK [id number]) Out-Patient Physical Therapy Visit Information Visit Information Visit Type Treatment Note Visit Start Time 14:29 Visit Stop Time 15:25 Total Visit Minutes 56 Visit Number 6 Evaluation Information Evaluation Date 02/14/20 Precautions Precautions L4-S1 fusion ankle fusions PT-OP-B Current Condition Start: 02/14/20 08:08 Freq: Status: Active Protocol: Document 02/14/20 09:04 SAK (Rec: 02/14/20 09:30 SAK [id number]) Current Condition History of Current Condition Onset Date 5 weeks Current Complaints buttock pain gloria left greater than right, pubic pain central History of Current Condition 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 States she got up from chair, felt excrutiating pain (almost wrost pain ever had) in buttock left greater than right. States doctors think the pain coming from low back but she disagrees: I know what pain from my low back feels like. 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 Has been getting some better, can now sit, but pain persists and limits her activity. Has been seen in PT by this therapist previously and has been doing ther ex, ice, heat, using ball for self -massage. Reports hysicians wanting to refer patient to spinal surgeon due to MRI showing bulging disc at L34, but she refuses at this time. Pain worse with prolonged sitting on any surface. Because of pain can't ambulate on stairs with alternating pattern due to pain. Trying to walk. Hasn't been able to go the pool. Feels weak. Has been trying to change positions more frequently. Sleeps with a heating pad between her legs due to pubic pain. Has low back pain but states she feels more weak than painful in back. Also has peroneal tendonitis right ankle; was in a lace-up splint over past month, pain improved. Having insoles changed next week. Denies shooting pain down leg or any giving way of legs. Has EMG next week at due to persistent numbness right LE, across ankle into big toe that she has had since spinal surgery. Prior Treatments and Tests MRI spine 01/30/20. Future Testing and Treatments Planned EMG 02/21/20. Treatment Goals Patient/Caregiver Goals Decreasing pain, improving strength and activity tolerance. PT-OP-C Subjective Start: 02/14/20 08:08 Freq: Status: Active Protocol: Document 03/14/20 14:30 SAK (Rec: 03/14/20 14:55 SAK [id number]) OP-PT Subjective Patient Comments Patient Comments EMG study report wasn't done, had to cancel appointment. Appt. now in 2 weeks. Reports increased pain this am, especially just above cyccyx; possibly due to sitting most of day watching news yesterday . Also reports feeling weakness right LE immediately upon standing, like it's going to give way, then that sensation goes away. Compliant to HEP. PT-OP-G Mobility & Gait Start: 02/14/20 08:08 Freq: Status: Active Protocol: Document 02/14/20 11:13 [facility] (Rec: 02/14/20 11:56 [facility] [id number]) OP Gait Assessment Gait Deviations General Gait Pattern Antalgic,Decreased Stride Length,Decreased Feet Clearance Factors Limiting Gait Function Factors Limiting Gait Function Pain Stair Climbing Evaluation Evaluation Level of Assist On Stairs Standby Assistance Technique/Endurance Stair Climbing Technique Step to Step PT-OP-H Neuro Start: 02/14/20 08:08 Freq: Status: Active Protocol: Document 02/14/20 11:13 [facility] (Rec: 02/14/20 11:56 [facility] [id number]) Sensation Evaluation Gross Sensation Gross Sensation Right LE Impaired Sensation Description Numbness Dermatome Impairments L5 PT-OP-J Posture/Palpation/Skin Start: 02/14/20 08:08 Freq: Status: Active Protocol: Document 02/14/20 11:13 SAK (Rec: 02/14/20 11:56 [facility] [id number]) Posture Evaluation Position Standing Head/C-Spine Posture Forward Head Shoulder Posture (L) Rounded,(R) Rounded Scapula Posture (L) Protracted,(R) Protracted Pelvis Posture Anteriorly Tilted Weight Distribution Weight Shifted Right Hip Posture (L) Externally Rotated,(R) Externally Rotated Ankle/Foot Posture (L) Pronated,(R) Pronated Foot Arch (L) Low Arch,(R) Low Arch Palpation Assessment Location Two Palpation Location pubic symphysis Palpation Findings Tenderness One Palpation Location piriformis left, left sciatic notch Palpation Findings Soft Tissue Tightness,Muscle Guarding,Tenderness,Trigger Point PT-OP-K Range of Motion Start: 02/14/20 08:08 Freq: Status: Active Protocol: Document 02/14/20 11:13 [facility] (Rec: 02/14/20 11:56 [facility] [id number]) Lumbar Spine Range of Motion Lumbar Spine Active Comments mild to mod decrease all motions but reports minimal pain LB or buttock Hip Goniometric Range of Motion Hip right passive Flexion w/Knee Flexed 120 Straight Leg Raise 65 Extension 0 Internal Rotation 30 External Rotation 55 Left passive Flexion w/Knee Flexed 110 Straight Leg Raise 70 Extension 0 Internal Rotation 25 External Rotation 60 Right Active Straight Leg Raise 55 Left Active Straight Leg Raise 60 Hip ROM Limitations Hip ROM Limitations Soft Tissue Tightness,Muscle Weakness,Pain Knee Goniometric Range of Motion Knee gloria Knee ROM WFL Yes Ankle and Foot Goniometric Range of Motion Ankle and Foot Right Active Ankle/Foot ROM WFL No Dorsiflexion with Knee Flexed 8 Dorsiflexion with Knee Extended 4 Left Ankle/Foot ROM WFL No Dorsiflexion with Knee Flexed 5 Dorsiflexion with Knee Extended 3 PT-OP-L Special Tests Start: 02/14/20 08:08 Freq: Status: Active Protocol: Document 02/14/20 11:13 [facility] (Rec: 02/14/20 11:56 [facility] [id number]) Special Tests Lumbar Spine Special Tests Josh Test Results positive for muscle tightness Standing Flexion Test Results negative Slump Test Results negative gloria Stork Test Test Results unable to tolerate Straight Leg Raise Test Results positive only for muscle tightness Hip Special Tests Straight Leg Raise Test Results positive for muscle tightness only Trendelenberg Test Results positive for muscle weakness left Piriformis Test Results positive left PT-OP-M Strength Start: 02/14/20 08:08 Freq: Status: Active Protocol: Document 02/14/20 11:13 [facility] (Rec: 02/14/20 11:56 [facility] [id number]) Hip Strength Hip Manual Muscle Testing Left Flexion (L2) 4- Good- Extension (S1) 3+ Fair+ Abduction 3+ Fair+ Adduction 4- Good- External Rotation 3+ Fair+ Internal Rotation 4- Good- Right Flexion (L2) 4 Good Extension (S1) 3+ Fair+ Abduction 4- Good- Adduction 4- Good- External Rotation 4 Good Internal Rotation 4+ Good+ Knee Strength Knee Manual Muscle Testing gloria Flexion (S2) 4+ Good+ Extension (L3) 4+ Good+ Ankle/Foot Strength Ankle and Foot Manual Muscle Testing Right Dorsiflexion (L4) 4 Good Plantarflexion (S1) 4- Good- Left Dorsiflexion (L4) 5 Normal Plantarflexion (S1) 4 Good Toe Strength Toe Manual Muscle Testing Left Extension 4- Good- Right Great Toe Extension 4 Good PT-OP-Q Treatments Start: 02/14/20 08:08 Freq: Status: Active Protocol: Document 03/14/20 14:30 [facility] (Rec: 03/14/20 14:55 [facility] [id number]) Cardio Equipment Recumbent Stepper (Sci-Fit) Duration (Minutes) 10 Resistance 1.5 Seat Position 11 Other verbal and manual cues for LE alignment, core activation Gym Equipment Shuttle Balance 1 Comments refused today due to foot discomfort Therapeutic Exercises Supine Exercises multifidi activation Reps/Minutes 10x Sitting Exercises IT band strech Equipment Used stool, strap Reps/Minutes 2x30 adductor stretch Equipment Used stool, strap Reps/Minutes 2x30 ball press Reps/Minutes 5x ea Comments forward, diagonal Manual Therapy Treatment Soft Tissue Mobilization right lumbar paraspinals Body Location gloria paraspinals & right QL into sacrum Mobilization Type Myofascial Release,Rolling, Other Intensity/Depth Moderate Body Position Sidelying Comments Reported decrease in pain, palpable decrease in soft tissue tension right piriformis Body Location piriformi & glutes Mobilization Type Myofascial Release,Sustained Pressure,Trigger Point Release Intensity/Depth Moderate Body Position left sidelying Comments PT elbow PT-OP-R Modalities Start: 02/14/20 08:08 Freq: Status: Active Protocol: Document 03/14/20 14:30 [facility] (Rec: 03/14/20 15:44 [facility] [id number]) Hot Pack/Cold Pack Treatment Hot Pack Location lumboscral spine Patient Position Hooklying Treatment Duration (minutes) 15 Patient Tolerance Good PT-OP-T Assessment and Plan Start: 02/14/20 08:08 Freq: Status: Active Protocol: Document 03/14/20 14:30 SAK (Rec: 03/14/20 14:55 SAK [id number]) Physical Therapy Assessment Goals Four Impairment muscle imbalances bilateral hips and pelvis Short Term Goal (STG) Update patient's HEP to address muscle imbalances 03/14/20: good progress, continue to add/modify STG Duration 03/06/20 Eyeglass Maker Goal (LTG) Patient to demonstrate symmetrical ROM (w/in 5 degrees) and strength (within 1/2 grade) of all muscle groups bilateral hips and pelvis. 03/14/20: goal progress LTG Duration 05/14/20 Three Impairment unable to roll or reposition in bed without pain in buttock Eyeglass Maker Goal (LTG) Patient able to roll or reposition in bed with minimal to no pain 03/14/20: mostly met LTG Duration 05/14/20 Oswestry disability index score Impairment Activity intolerance, Oswestry disability index score 62% Eyeglass Maker Goal (LTG) decrease score to no greater than 30% to help patient resume prior level of function 03/14/20: good goal progress LTG Duration 05/14/20 Two Impairment Patient unable to use alternating pattern to ambulate on stairs Short Term Goal (STG) Patient able to ascend and descend 4 stairs with alternating pattern with minimal to no pain 03/14/20: goal met STG Duration MET Eyeglass Maker Goal (LTG) Patient able to ascend and descend standard (6) stairs with alternating pattern with minimal to no pain LTG Duration 05/14/20 One Impairment pain gloria buttocks left greater than right, pubic pain Short Term Goal (STG) Decrease pain 50% 03/14/20: good goal progress STG Duration 03/22/20 Eyeglass Maker Goal (LTG) Decrease pain by at least 75% with patient able to resume prior activity without difficulty LTG Duration 05/14/20 Progress Towards Goals Progress Towards Goals Progressing Toward Goals Assessment Summary Assessment Patient making good progress with decrease in pain buttocks and lumbar spine, improving activity tolerance though frustrated by difficulty getting more aerobic exercise. Unable to go to gym for recumbant elliptical or to pool for aquatic exercise which are best tolerated exercises. States her exercise bike hurts her ankles . Good compliance to HEP. Physical Therapy Plan Frequency and Duration Frequency of Treatment 2x/Week Duration of Treatment 12 weeks Plan of Care Start Date 02/14/20 Plan of Care End Date 05/14/20 Therapeutic Interventions Therapeutic Interventions Home Exercise Program,Manual Therapy,Neuromuscular Re- education,Patient/Caregiver Education,Self-Care/Home Management,Soft Tissue Mobilization,Taping, Therapeutic Activities, Therapeutic Exercises Modalities Cold Pack/Ice Massage,Electric Stimulation,Hot Packs, Infrared Therapy,Ultrasound Next Visit Focus/Plan Next Note Type Treatment Note Next Visit Plan Progress core strengthening as tolerated, advance functional strengthening with emphasis on body mechanics. Manual therapy as indicated.
--- NOTE | 2020-03-18 11:18 | PT.OTN ---
Current Diagnoses Spinal stenosis, lumbar region without neurogenic claudication (03/18/20) Low back pain (03/18/20) Other muscle spasm (03/18/20) Difficulty in walking, not elsewhere classified (03/18/20) Weakness (03/18/20) Physical Therapy Treatment Note PT-OP-A Visit Information Start: 02/14/20 08:08 Freq: Status: Active Protocol: Document 03/18/20 10:34 [facility] (Rec: 03/18/20 11:18 [facility] [id number]) Out-Patient Physical Therapy Visit Information Visit Information Visit Type Treatment Note Visit Start Time 10:32 Visit Stop Time 11:28 Total Visit Minutes 56 Visit Number 7 Number of CLIENT SUPPORT ASSOCIATE Visits 0 PT-OP-B Current Condition Start: 02/14/20 08:08 Freq: Status: Active Protocol: Document 02/14/20 09:04 [facility] (Rec: 02/14/20 09:30 [facility] [id number]) Current Condition History of Current Condition Onset Date 5 weeks Current Complaints buttock pain gloria left greater than right, pubic pain central History of Current Condition 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 States she got up from chair, felt excrutiating pain (almost wrost pain ever had) in buttock left greater than right. States doctors think the pain coming from low back but she disagrees: I know what pain from my low back feels like. 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 Has been getting some better, can now sit, but pain persists and limits her activity. Has been seen in PT by this therapist previously and has been doing ther ex, ice, heat, using ball for self -massage. Reports hysicians wanting to refer patient to spinal surgeon due to MRI showing bulging disc at L34, but she refuses at this time. Pain worse with prolonged sitting on any surface. Because of pain can't ambulate on stairs with alternating pattern due to pain. Trying to walk. Hasn't been able to go the pool. Feels weak. Has been trying to change positions more frequently. Sleeps with a heating pad between her legs due to pubic pain. Has low back pain but states she feels more weak than painful in back. Also has peroneal tendonitis right ankle; was in a lace-up splint over past month, pain improved. Having insoles changed next week. Denies shooting pain down leg or any giving way of legs. Has EMG next week at due to persistent numbness right LE, across ankle into big toe that she has had since spinal surgery. Prior Treatments and Tests MRI spine 01/30/20. Future Testing and Treatments Planned EMG 02/21/20. Treatment Goals Patient/Caregiver Goals Decreasing pain, improving strength and activity tolerance. PT-OP-C Subjective Start: 02/14/20 08:08 Freq: Status: Active Protocol: Document 03/18/20 10:34 [facility] (Rec: 03/18/20 11:18 [facility] [id number]) OP-PT Subjective Patient Comments Patient Comments Pt reprots she was really sore after last appointment & her entire R leg was sore and inside of R buttocks. Pt reports it was almost like nerve pain> She took a mm relaxor but they don't seem to do much on Wednesday. Sat, she felt fine so she didn't do any stretching d/t concern of starting pain again but was afraid to set it off. Yesterday did full set of exercises and felt fine. Pt reports pain in groin all the time, but does not know what causes it. PT-OP-G Mobility & Gait Start: 02/14/20 08:08 Freq: Status: Active Protocol: Document 02/14/20 11:13 [facility] (Rec: 02/14/20 11:56 [facility] [id number]) OP Gait Assessment Gait Deviations General Gait Pattern Antalgic,Decreased Stride Length,Decreased Feet Clearance Factors Limiting Gait Function Factors Limiting Gait Function Pain Stair Climbing Evaluation Evaluation Level of Assist On Stairs Standby Assistance Technique/Endurance Stair Climbing Technique Step to Step PT-OP-H Neuro Start: 02/14/20 08:08 Freq: Status: Active Protocol: Document 02/14/20 11:13 [facility] (Rec: 02/14/20 11:56 [facility] [id number]) Sensation Evaluation Gross Sensation Gross Sensation Right LE Impaired Sensation Description Numbness Dermatome Impairments L5 PT-OP-J Posture/Palpation/Skin Start: 02/14/20 08:08 Freq: Status: Active Protocol: Document 02/14/20 11:13 [facility] (Rec: 02/14/20 11:56 [facility] [id number]) Posture Evaluation Position Standing Head/C-Spine Posture Forward Head Shoulder Posture (L) Rounded,(R) Rounded Scapula Posture (L) Protracted,(R) Protracted Pelvis Posture Anteriorly Tilted Weight Distribution Weight Shifted Right Hip Posture (L) Externally Rotated,(R) Externally Rotated Ankle/Foot Posture (L) Pronated,(R) Pronated Foot Arch (L) Low Arch,(R) Low Arch Palpation Assessment Location Two Palpation Location pubic symphysis Palpation Findings Tenderness One Palpation Location piriformis left, left sciatic notch Palpation Findings Soft Tissue Tightness,Muscle Guarding,Tenderness,Trigger Point PT-OP-K Range of Motion Start: 02/14/20 08:08 Freq: Status: Active Protocol: Document 02/14/20 11:13 [facility] (Rec: 02/14/20 11:56 [facility] [id number]) Lumbar Spine Range of Motion Lumbar Spine Active Comments mild to mod decrease all motions but reports minimal pain LB or buttock Hip Goniometric Range of Motion Hip right passive Flexion w/Knee Flexed 120 Straight Leg Raise 65 Extension 0 Internal Rotation 30 External Rotation 55 Left passive Flexion w/Knee Flexed 110 Straight Leg Raise 70 Extension 0 Internal Rotation 25 External Rotation 60 Right Active Straight Leg Raise 55 Left Active Straight Leg Raise 60 Hip ROM Limitations Hip ROM Limitations Soft Tissue Tightness,Muscle Weakness,Pain Knee Goniometric Range of Motion Knee gloria Knee ROM WFL Yes Ankle and Foot Goniometric Range of Motion Ankle and Foot Right Active Ankle/Foot ROM WFL No Dorsiflexion with Knee Flexed 8 Dorsiflexion with Knee Extended 4 Left Ankle/Foot ROM WFL No Dorsiflexion with Knee Flexed 5 Dorsiflexion with Knee Extended 3 PT-OP-L Special Tests Start: 02/14/20 08:08 Freq: Status: Active Protocol: Document 02/14/20 11:13 [facility] (Rec: 02/14/20 11:56 [facility] [id number]) Special Tests Lumbar Spine Special Tests Josh Test Results positive for muscle tightness Standing Flexion Test Results negative Slump Test Results negative gloria Stork Test Test Results unable to tolerate Straight Leg Raise Test Results positive only for muscle tightness Hip Special Tests Straight Leg Raise Test Results positive for muscle tightness only Trendelenberg Test Results positive for muscle weakness left Piriformis Test Results positive left PT-OP-M Strength Start: 02/14/20 08:08 Freq: Status: Active Protocol: Document 02/14/20 11:13 [facility] (Rec: 02/14/20 11:56 [facility] [id number]) Hip Strength Hip Manual Muscle Testing Left Flexion (L2) 4- Good- Extension (S1) 3+ Fair+ Abduction 3+ Fair+ Adduction 4- Good- External Rotation 3+ Fair+ Internal Rotation 4- Good- Right Flexion (L2) 4 Good Extension (S1) 3+ Fair+ Abduction 4- Good- Adduction 4- Good- External Rotation 4 Good Internal Rotation 4+ Good+ Knee Strength Knee Manual Muscle Testing gloria Flexion (S2) 4+ Good+ Extension (L3) 4+ Good+ Ankle/Foot Strength Ankle and Foot Manual Muscle Testing Right Dorsiflexion (L4) 4 Good Plantarflexion (S1) 4- Good- Left Dorsiflexion (L4) 5 Normal Plantarflexion (S1) 4 Good Toe Strength Toe Manual Muscle Testing Left Extension 4- Good- Right Great Toe Extension 4 Good PT-OP-Q Treatments Start: 02/14/20 08:08 Freq: Status: Active Protocol: Document 03/18/20 10:34 [facility] (Rec: 03/18/20 11:18 [facility] [id number]) Cardio Equipment Recumbent Stepper (Sci-Fit) Duration (Minutes) 10 Resistance working up to 1.5 Seat Position 11 Other verbal and manual cues for LE alignment, core activation Therapeutic Exercises Supine Exercises LTR Supine Exercise Name small range working on core Side bilateral Reps/Minutes 10 TrA activation Supine Exercise Name 1.w/may 2. heel slides Side bilateral Reps/Minutes 10 ea Manual Therapy Treatment Soft Tissue Mobilization adductors Body Location b Mobilization Type Rolling,Strumming Intensity/Depth Moderate Body Position Hooklying Comments w/gentle hip ER/IR PT-OP-R Modalities Start: 02/14/20 08:08 Freq: Status: Active Protocol: Document 03/18/20 10:34 [facility] (Rec: 03/18/20 11:18 [facility] [id number]) Hot Pack/Cold Pack Treatment Hot Pack Location lumboscral spine & adductors Patient Position Hooklying Treatment Duration (minutes) 15 Patient Tolerance Good PT-OP-T Assessment and Plan Start: 02/14/20 08:08 Freq: Status: Active Protocol: Document 03/18/20 10:34 [facility] (Rec: 03/18/20 11:18 [facility] [id number]) Physical Therapy Assessment Goals Five Impairment unable to do floor transfer Short Term Goal (STG) Instruct in safe method for floor transfers and do functional strengthening initially on mat table STG Duration 2 wks Longterm Goal (LTG) Patient will be able to perform floor transfer with SB to min assist safely. 04/27/19: not attempted this date due to foot pain LTG Duration 06/06/19 Four Impairment muscle imbalances bilateral hips and pelvis Short Term Goal (STG) Update patient's HEP to address muscle imbalances 03/14/20: good progress, continue to add/modify STG Duration 03/06/20 Longterm Goal (LTG) Patient to demonstrate symmetrical ROM (w/in 5 degrees) and strength (within 1/2 grade) of all muscle groups bilateral hips and pelvis. 03/14/20: goal progress LTG Duration 05/14/20 Three Impairment unable to roll or reposition in bed without pain in buttock Mileage Clerk Goal (LTG) Patient able to roll or reposition in bed with minimal to no pain 03/14/20: mostly met LTG Duration 05/14/20 Oswestry disability index score Impairment Activity intolerance, Oswestry disability index score 62% Mileage Clerk Goal (LTG) decrease score to no greater than 30% to help patient resume prior level of function 03/14/20: good goal progress LTG Duration 05/14/20 Two Impairment Patient unable to use alternating pattern to ambulate on stairs Short Term Goal (STG) Patient able to ascend and descend 4 stairs with alternating pattern with minimal to no pain 03/14/20: goal met STG Duration MET Longterm Goal (LTG) Patient able to ascend and descend standard (6) stairs with alternating pattern with minimal to no pain LTG Duration 05/14/20 One Impairment pain gloria buttocks left greater than right, pubic pain Short Term Goal (STG) Decrease pain 50% 03/14/20: good goal progress STG Duration 03/22/20 Longterm Goal (LTG) Decrease pain by at least 75% with patient able to resume prior activity without difficulty LTG Duration 05/14/20 decreased ROM and strength left foot/ankle Impairment tightness and weakness gloria gastroc Mileage Clerk Goal (LTG) Improve gloria foot and ankle ROM and strength to WNL, patient to be independnet with HEP. 02/01/19: good goal progress 03/07/19: has had more pain recently, fit with ankle brace right foot. 04/27/19: now has new ankle brace left. exercise and activity limited by bilateral foot pain. 03/30/19: 4/5 left 4-/5 right LTG Duration 06/06/19 pain right foot/ankle Impairment bilateral foot and ankle pain limiting activity Longterm Goal (LTG) Improve pain right foot and ankle sufficient to allow her to increase her walking ability from 2-6 blocks for functional community ambulation 02/01/19: decreased tolerance for weight-bearing activity today. 03/07/19: just obtained new foot brace, working on increasing wear time 04/27/19: has not been able to progress, but just obtained left foot brace LTG Duration 06/06/19 Antalgic gait Impairment antalgic gait, using FWW Mileage Clerk Goal (LTG) Patient able to ambulate with least restrictive assistive device with mninimal to no limp 11/07/19: patient now ambulating with a straight cane, with only mild limp LTG Duration 12 wks Assessment Summary Assessment Pt reported some adductor pain w/heel slides even though did partial range of motion. She has some hip flexor and adductor tightness which likely contributes to pubic symphysis pain along w/ abdomenal scaring. She felt relief with add STM. Able to do marches & LTR w/o inc pain Physical Therapy Plan Frequency and Duration Frequency of Treatment 2x/Week Duration of Treatment 12 weeks Plan of Care Start Date 02/14/20 Plan of Care End Date 05/14/20 Next Visit Focus/Plan Next Note Type Treatment Note Next Visit Plan Progress core strengthening as tolerated, advance functional strengthening with emphasis on body mechanics. Manual therapy as indicated.
--- NOTE | 2020-03-21 15:20 | PT.OTN ---
Current Diagnoses Spinal stenosis, lumbar region without neurogenic claudication (03/21/20) Low back pain (03/21/20) Other muscle spasm (03/21/20) Difficulty in walking, not elsewhere classified (03/21/20) Weakness (03/21/20) Physical Therapy Treatment Note PT-OP-A Visit Information Start: 02/14/20 08:08 Freq: Status: Active Protocol: Document 03/21/20 14:38 [facility] (Rec: 03/21/20 15:20 [facility] [id number]) Out-Patient Physical Therapy Visit Information Visit Information Visit Type Treatment Note Visit Start Time 14:35 Visit Stop Time 15:30 Total Visit Minutes 55 Visit Number 8 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 States she got up from chair, felt excrutiating pain (almost wrost pain ever had) in buttock left greater than right. States doctors think the pain coming from low back but she disagrees: I know what pain from my low back feels like. 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 Has been getting some better, can now sit, but pain persists and limits her activity. Has been seen in PT by this therapist previously and has been doing ther ex, ice, heat, using ball for self -massage. Reports hysicians wanting to refer patient to spinal surgeon due to MRI showing bulging disc at L34, but she refuses at this time. Pain worse with prolonged sitting on any surface. Because of pain can't ambulate on stairs with alternating pattern due to pain. Trying to walk. Hasn't been able to go the pool. Feels weak. Has been trying to change positions more frequently. Sleeps with a heating pad between her legs due to pubic pain. Has low back pain but states she feels more weak than painful in back. Also has peroneal tendonitis right ankle; was in a lace-up splint over past month, pain improved. Having insoles changed next week. Denies shooting pain down leg or any giving way of legs. Has EMG next week at due to persistent numbness right LE, across ankle into big toe that she has had since spinal surgery. Prior Treatments and Tests MRI spine 01/30/20. Future Testing and Treatments Planned EMG 02/21/20. Treatment Goals Patient/Caregiver Goals Decreasing pain, improving strength and activity tolerance. PT-OP-C Subjective Start: 02/14/20 08:08 Freq: Status: Active Protocol: Document 03/21/20 14:38 [facility] (Rec: 03/21/20 15:20 [facility] [id number]) OP-PT Subjective Patient Comments Patient Comments Pt reports her groin pain is much better after last session . Was wondering if we could try a peroneal release to help w/pain into foot. She can't remember if it was this AM or yesterday AM but she woke w/R buttocks pain & coccyx pain Patient Reported Progress Improving PT-OP-G Mobility & Gait Start: 02/14/20 08:08 Freq: Status: Active Protocol: Document 02/14/20 11:13 [facility] (Rec: 02/14/20 11:56 [facility] [id number]) OP Gait Assessment Gait Deviations General Gait Pattern Antalgic,Decreased Stride Length,Decreased Feet Clearance Factors Limiting Gait Function Factors Limiting Gait Function Pain Stair Climbing Evaluation Evaluation Level of Assist On Stairs Standby Assistance Technique/Endurance Stair Climbing Technique Step to Step PT-OP-H Neuro Start: 02/14/20 08:08 Freq: Status: Active Protocol: Document 02/14/20 11:13 [facility] (Rec: 02/14/20 11:56 [facility] [id number]) Sensation Evaluation Gross Sensation Gross Sensation Right LE Impaired Sensation Description Numbness Dermatome Impairments L5 PT-OP-J Posture/Palpation/Skin Start: 02/14/20 08:08 Freq: Status: Active Protocol: Document 02/14/20 11:13 [facility] (Rec: 02/14/20 11:56 [facility] [id number]) Posture Evaluation Position Standing Head/C-Spine Posture Forward Head Shoulder Posture (L) Rounded,(R) Rounded Scapula Posture (L) Protracted,(R) Protracted Pelvis Posture Anteriorly Tilted Weight Distribution Weight Shifted Right Hip Posture (L) Externally Rotated,(R) Externally Rotated Ankle/Foot Posture (L) Pronated,(R) Pronated Foot Arch (L) Low Arch,(R) Low Arch Palpation Assessment Location Two Palpation Location pubic symphysis Palpation Findings Tenderness One Palpation Location piriformis left, left sciatic notch Palpation Findings Soft Tissue Tightness,Muscle Guarding,Tenderness,Trigger Point PT-OP-K Range of Motion Start: 02/14/20 08:08 Freq: Status: Active Protocol: Document 02/14/20 11:13 [facility] (Rec: 02/14/20 11:56 [facility] [id number]) Lumbar Spine Range of Motion Lumbar Spine Active Comments mild to mod decrease all motions but reports minimal pain LB or buttock Hip Goniometric Range of Motion Hip right passive Flexion w/Knee Flexed 120 Straight Leg Raise 65 Extension 0 Internal Rotation 30 External Rotation 55 Left passive Flexion w/Knee Flexed 110 Straight Leg Raise 70 Extension 0 Internal Rotation 25 External Rotation 60 Right Active Straight Leg Raise 55 Left Active Straight Leg Raise 60 Hip ROM Limitations Hip ROM Limitations Soft Tissue Tightness,Muscle Weakness,Pain Knee Goniometric Range of Motion Knee gloria Knee ROM WFL Yes Ankle and Foot Goniometric Range of Motion Ankle and Foot Right Active Ankle/Foot ROM WFL No Dorsiflexion with Knee Flexed 8 Dorsiflexion with Knee Extended 4 Left Ankle/Foot ROM WFL No Dorsiflexion with Knee Flexed 5 Dorsiflexion with Knee Extended 3 PT-OP-L Special Tests Start: 02/14/20 08:08 Freq: Status: Active Protocol: Document 02/14/20 11:13 [facility] (Rec: 02/14/20 11:56 [facility] [id number]) Special Tests Lumbar Spine Special Tests Josh Test Results positive for muscle tightness Standing Flexion Test Results negative Slump Test Results negative gloria Stork Test Test Results unable to tolerate Straight Leg Raise Test Results positive only for muscle tightness Hip Special Tests Straight Leg Raise Test Results positive for muscle tightness only Trendelenberg Test Results positive for muscle weakness left Piriformis Test Results positive left PT-OP-M Strength Start: 02/14/20 08:08 Freq: Status: Active Protocol: Document 02/14/20 11:13 [facility] (Rec: 02/14/20 11:56 [facility] [id number]) Hip Strength Hip Manual Muscle Testing Left Flexion (L2) 4- Good- Extension (S1) 3+ Fair+ Abduction 3+ Fair+ Adduction 4- Good- External Rotation 3+ Fair+ Internal Rotation 4- Good- Right Flexion (L2) 4 Good Extension (S1) 3+ Fair+ Abduction 4- Good- Adduction 4- Good- External Rotation 4 Good Internal Rotation 4+ Good+ Knee Strength Knee Manual Muscle Testing gloria Flexion (S2) 4+ Good+ Extension (L3) 4+ Good+ Ankle/Foot Strength Ankle and Foot Manual Muscle Testing Right Dorsiflexion (L4) 4 Good Plantarflexion (S1) 4- Good- Left Dorsiflexion (L4) 5 Normal Plantarflexion (S1) 4 Good Toe Strength Toe Manual Muscle Testing Left Extension 4- Good- Right Great Toe Extension 4 Good PT-OP-Q Treatments Start: 02/14/20 08:08 Freq: Status: Active Protocol: Document 03/21/20 14:38 [facility] (Rec: 03/21/20 15:20 [facility] [id number]) Cardio Equipment Recumbent Stepper (Sci-Fit) Duration (Minutes) 10 Resistance working up to 1.5 Seat Position 11 Other verbal and manual cues for LE alignment, core activation Therapeutic Exercises Supine Exercises LTR Supine Exercise Name small range working on core Side bilateral Reps/Minutes 10 TrA activation Supine Exercise Name 1.w/may 2. heel slides Side bilateral Reps/Minutes 10 ea Therapeutic Activity Therapeutic Activity sleep Name s/l sleep position w/edu re: pillow full length of LE Comments supine sleeep positiong Manual Therapy Treatment Soft Tissue Mobilization glutes Body Location R lat Mobilization Type Rolling Intensity/Depth Superficial Body Position Sidelying PT-OP-R Modalities Start: 02/14/20 08:08 Freq: Status: Active Protocol: Document 03/21/20 14:38 [facility] (Rec: 03/21/20 15:20 [facility] [id number]) Hot Pack/Cold Pack Treatment Hot Pack Location lumbosacral spine Patient Position Hooklying Treatment Duration (minutes) 15 Patient Tolerance Good PT-OP-T Assessment and Plan Start: 02/14/20 08:08 Freq: Status: Active Protocol: Document 03/21/20 14:38 [facility] (Rec: 03/21/20 15:20 [facility] [id number]) Physical Therapy Assessment Goals Five Impairment unable to do floor transfer Short Term Goal (STG) Instruct in safe method for floor transfers and do functional strengthening initially on mat table STG Duration 2 wks [employer] Developer Goal (LTG) Patient will be able to perform floor transfer with SB to min assist safely. 04/27/19: not attempted this date due to foot pain LTG Duration 06/06/19 Four Impairment muscle imbalances bilateral hips and pelvis Short Term Goal (STG) Update patient's HEP to address muscle imbalances 03/14/20: good progress, continue to add/modify STG Duration 03/06/20 [employer] Developer Goal (LTG) Patient to demonstrate symmetrical ROM (w/in 5 degrees) and strength (within 1/2 grade) of all muscle groups bilateral hips and pelvis. 03/14/20: goal progress LTG Duration 05/14/20 Three Impairment unable to roll or reposition in bed without pain in buttock Fpc Goal (LTG) Patient able to roll or reposition in bed with minimal to no pain 03/14/20: mostly met LTG Duration 05/14/20 Oswestry disability index score Impairment Activity intolerance, Oswestry disability index score 62% [employer] Developer Goal (LTG) decrease score to no greater than 30% to help patient resume prior level of function 03/14/20: good goal progress LTG Duration 05/14/20 Two Impairment Patient unable to use alternating pattern to ambulate on stairs Short Term Goal (STG) Patient able to ascend and descend 4 stairs with alternating pattern with minimal to no pain 03/14/20: goal met STG Duration MET Fpc Goal (LTG) Patient able to ascend and descend standard (6) stairs with alternating pattern with minimal to no pain LTG Duration 05/14/20 One Impairment pain gloria buttocks left greater than right, pubic pain Short Term Goal (STG) Decrease pain 50% 03/14/20: good goal progress STG Duration 03/22/20 [employer] Developer Goal (LTG) Decrease pain by at least 75% with patient able to resume prior activity without difficulty LTG Duration 05/14/20 decreased ROM and strength left foot/ankle Impairment tightness and weakness gloria gastroc Fpc Goal (LTG) Improve gloria foot and ankle ROM and strength to WNL, patient to be independnet with HEP. 02/01/19: good goal progress 03/07/19: has had more pain recently, fit with ankle brace right foot. 04/27/19: now has new ankle brace left. exercise and activity limited by bilateral foot pain. 03/30/19: 4/5 left 4-/5 right LTG Duration 06/06/19 pain right foot/ankle Impairment bilateral foot and ankle pain limiting activity Fpc Goal (LTG) Improve pain right foot and ankle sufficient to allow her to increase her walking ability from 2-6 blocks for functional community ambulation 02/01/19: decreased tolerance for weight-bearing activity today. 03/07/19: just obtained new foot brace, working on increasing wear time 04/27/19: has not been able to progress, but just obtained left foot brace LTG Duration 06/06/19 Antalgic gait Impairment antalgic gait, using FWW [employer] Developer Goal (LTG) Patient able to ambulate with least restrictive assistive device with mninimal to no limp 11/07/19: patient now ambulating with a straight cane, with only mild limp LTG Duration 12 wks Assessment Summary Assessment Pt reported less stress into lumbar spine w/sleep position edu. Able to do exercises with min cueing and no inc in pain today.Pt had some pain in groin when layin [place] L side. Able to adjust to dec sligthly . Improved mobility to glutes with gentle soft tissue at lat border of glutes. Physical Therapy Plan Frequency and Duration Frequency of Treatment 2x/Week Duration of Treatment 12 weeks Plan of Care Start Date 02/14/20 Plan of Care End Date 05/14/20 Next Visit Focus/Plan Next Note Type Treatment Note Next Visit Plan Progress core strengthening as tolerated, advance functional strengthening with emphasis on body mechanics. Manual therapy as indicated.
--- NOTE | 2020-03-25 16:33 | PT.OTN ---
Current Diagnoses Spinal stenosis, lumbar region without neurogenic claudication (03/25/20) Low back pain (03/25/20) Other muscle spasm (03/25/20) Difficulty in walking, not elsewhere classified (03/25/20) Weakness (03/25/20) Physical Therapy Treatment Note PT-OP-A Visit Information Start: 02/14/20 08:08 Freq: Status: Active Protocol: Document 03/25/20 16:[address] [facility] (Rec: 03/25/20 16:[address] [facility] [id number]) Out-Patient Physical Therapy Visit Information Visit Information Visit Type Treatment Note Visit Start Time 14:30 Visit Stop Time 15:30 Total Visit Minutes 55 Visit Number 9 Number of FIRST AID OFFICER Visits 0 PT-OP-B Current Condition Start: 02/14/20 08:08 Freq: Status: Active Protocol: Document 02/14/20 09:04 [facility] (Rec: 02/14/20 09:[address] [facility] [id number]) Current Condition History of Current Condition Onset Date 5 weeks Current Complaints buttock pain gloria left greater than right, pubic pain central History of Current Condition 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 States she got up from chair, felt excrutiating pain (almost wrost pain ever had) in buttock left greater than right. States doctors think the pain coming from low back but she disagrees: I know what pain from my low back feels like. 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 Has been getting some better, can now sit, but pain persists and limits her activity. Has been seen in PT by this therapist previously and has been doing ther ex, ice, heat, using ball for self -massage. Reports hysicians wanting to refer patient to spinal surgeon due to MRI showing bulging disc at L34, but she refuses at this time. Pain worse with prolonged sitting on any surface. Because of pain can't ambulate on stairs with alternating pattern due to pain. Trying to walk. Hasn't been able to go the pool. Feels weak. Has been trying to change positions more frequently. Sleeps with a heating pad between her legs due to pubic pain. Has low back pain but states she feels more weak than painful in back. Also has peroneal tendonitis right ankle; was in a lace-up splint over past month, pain improved. Having insoles changed next week. Denies shooting pain down leg or any giving way of legs. Has EMG next week at due to persistent numbness right LE, across ankle into big toe that she has had since spinal surgery. Prior Treatments and Tests MRI spine 01/30/20. Future Testing and Treatments Planned EMG 02/21/20. Treatment Goals Patient/Caregiver Goals Decreasing pain, improving strength and activity tolerance. PT-OP-C Subjective Start: 02/14/20 08:08 Freq: Status: Active Protocol: Document 03/25/20 16:[address] [facility] (Rec: 03/25/20 16:[address] [facility] [id number]) OP-PT Subjective Patient Comments Patient Comments States every morning the pain is different, but overall reports feeling better. Yesterday bad day with groin but states she did a lot of massaging on it. Patient Reported Progress Improving PT-OP-G Mobility & Gait Start: 02/14/20 08:08 Freq: Status: Active Protocol: Document 02/14/20 11:[address] [facility] (Rec: 02/14/20 11:[address] [facility] [id number]) OP Gait Assessment Gait Deviations General Gait Pattern Antalgic,Decreased Stride Length,Decreased Feet Clearance Factors Limiting Gait Function Factors Limiting Gait Function Pain Stair Climbing Evaluation Evaluation Level of Assist On Stairs Standby Assistance Technique/Endurance Stair Climbing Technique Step to Step PT-OP-H Neuro Start: 02/14/20 08:08 Freq: Status: Active Protocol: Document 02/14/20 11:[address] [facility] (Rec: 02/14/20 11:[address] [facility] [id number]) Sensation Evaluation Gross Sensation Gross Sensation Right LE Impaired Sensation Description Numbness Dermatome Impairments L5 PT-OP-J Posture/Palpation/Skin Start: 02/14/20 08:08 Freq: Status: Active Protocol: Document 02/14/20 11:[address] [facility] (Rec: 02/14/20 11:[address] [facility] [id number]) Posture Evaluation Position Standing Head/C-Spine Posture Forward Head Shoulder Posture (L) Rounded,(R) Rounded Scapula Posture (L) Protracted,(R) Protracted Pelvis Posture Anteriorly Tilted Weight Distribution Weight Shifted Right Hip Posture (L) Externally Rotated,(R) Externally Rotated Ankle/Foot Posture (L) Pronated,(R) Pronated Foot Arch (L) Low Arch,(R) Low Arch Palpation Assessment Location Two Palpation Location pubic symphysis Palpation Findings Tenderness One Palpation Location piriformis left, left sciatic notch Palpation Findings Soft Tissue Tightness,Muscle Guarding,Tenderness,Trigger Point PT-OP-K Range of Motion Start: 02/14/20 08:08 Freq: Status: Active Protocol: Document 02/14/20 11:[address] [facility] (Rec: 02/14/20 11:[address] [facility] [id number]) Lumbar Spine Range of Motion Lumbar Spine Active Comments mild to mod decrease all motions but reports minimal pain LB or buttock Hip Goniometric Range of Motion Hip right passive Flexion w/Knee Flexed 120 Straight Leg Raise 65 Extension 0 Internal Rotation 30 External Rotation 55 Left passive Flexion w/Knee Flexed 110 Straight Leg Raise 70 Extension 0 Internal Rotation 25 External Rotation 60 Right Active Straight Leg Raise 55 Left Active Straight Leg Raise 60 Hip ROM Limitations Hip ROM Limitations Soft Tissue Tightness,Muscle Weakness,Pain Knee Goniometric Range of Motion Knee gloria Knee ROM WFL Yes Ankle and Foot Goniometric Range of Motion Ankle and Foot Right Active Ankle/Foot ROM WFL No Dorsiflexion with Knee Flexed 8 Dorsiflexion with Knee Extended 4 Left Ankle/Foot ROM WFL No Dorsiflexion with Knee Flexed 5 Dorsiflexion with Knee Extended 3 PT-OP-L Special Tests Start: 02/14/20 08:08 Freq: Status: Active Protocol: Document 02/14/20 11:[address] [facility] (Rec: 02/14/20 11:[address] [facility] [id number]) Special Tests Lumbar Spine Special Tests Josh Test Results positive for muscle tightness Standing Flexion Test Results negative Slump Test Results negative gloria Stork Test Test Results unable to tolerate Straight Leg Raise Test Results positive only for muscle tightness Hip Special Tests Straight Leg Raise Test Results positive for muscle tightness only Trendelenberg Test Results positive for muscle weakness left Piriformis Test Results positive left PT-OP-M Strength Start: 02/14/20 08:08 Freq: Status: Active Protocol: Document 02/14/20 11:[address] [facility] (Rec: 02/14/20 11:[address] [facility] [id number]) Hip Strength Hip Manual Muscle Testing Left Flexion (L2) 4- Good- Extension (S1) 3+ Fair+ Abduction 3+ Fair+ Adduction 4- Good- External Rotation 3+ Fair+ Internal Rotation 4- Good- Right Flexion (L2) 4 Good Extension (S1) 3+ Fair+ Abduction 4- Good- Adduction 4- Good- External Rotation 4 Good Internal Rotation 4+ Good+ Knee Strength Knee Manual Muscle Testing gloria Flexion (S2) 4+ Good+ Extension (L3) 4+ Good+ Ankle/Foot Strength Ankle and Foot Manual Muscle Testing Right Dorsiflexion (L4) 4 Good Plantarflexion (S1) 4- Good- Left Dorsiflexion (L4) 5 Normal Plantarflexion (S1) 4 Good Toe Strength Toe Manual Muscle Testing Left Extension 4- Good- Right Great Toe Extension 4 Good PT-OP-Q Treatments Start: 02/14/20 08:08 Freq: Status: Active Protocol: Document 03/25/20 16:[address] [facility] (Rec: 03/25/20 16:[address] [facility] [id number]) Cardio Equipment Recumbent Stepper (Sci-Fit) Duration (Minutes) 10 Resistance 1.5 Seat Position 11 Other verbal and manual cues for LE alignment, core activation Gym Equipment Shuttle Recovery Bilateral Squats Details core activation Resistance 50 Shuttle Recovery Platform Stable Reps/Time 10 Shuttle Balance 1 Details chains red: bal and wt shift fwd and side Therapeutic Exercises Supine Exercises postural isometric with TrA and multifidi act Reps/Minutes 10x LTR Supine Exercise Name small range working on core Side bilateral Reps/Minutes 10 Sitting Exercises multifidi activation Reps/Minutes 5x5 adductor stretch Equipment Used butter fly; double and single Reps/Minutes 2x30 Manual Therapy Treatment Soft Tissue Mobilization lateral quads Mobilization Type Myofascial Release,Rolling Intensity/Depth Moderate Body Position Hooklying IT band Mobilization Type Myofascial Release,Rolling Intensity/Depth Moderate Body Position Hooklying Neuro Re-Education Treatment Balance Activities corner standing bal Details EC Reps/Duration 2' tiltboard stand Details fwd/bck bal and wt shift, side /side bal both EO and EC PT-OP-R Modalities Start: 02/14/20 08:08 Freq: Status: Active Protocol: Document 03/25/20 16:[address] [facility] (Rec: 03/25/20 16:[address] [facility] [id number]) Hot Pack/Cold Pack Treatment Hot Pack Location lumbosacral spine, right groin Patient Position Hooklying Treatment Duration (minutes) 15 Patient Tolerance Good PT-OP-T Assessment and Plan Start: 02/14/20 08:08 Freq: Status: Active Protocol: Document 03/25/20 16:23 [facility] (Rec: 03/25/20 16:[address] [facility] [id number]) Physical Therapy Assessment Goals Five Impairment unable to do floor transfer Short Term Goal (STG) Instruct in safe method for floor transfers and do functional strengthening initially on mat table STG Duration 2 wks Correction Goal (LTG) Patient will be able to perform floor transfer with SB to min assist safely. 04/27/19: not attempted this date due to foot pain LTG Duration 06/06/19 Four Impairment muscle imbalances bilateral hips and pelvis Short Term Goal (STG) Update patient's HEP to address muscle imbalances 03/14/20: good progress, continue to add/modify STG Duration 03/06/20 Correction Goal (LTG) Patient to demonstrate symmetrical ROM (w/in 5 degrees) and strength (within 1/2 grade) of all muscle groups bilateral hips and pelvis. 03/14/20: goal progress LTG Duration 05/14/20 Three Impairment unable to roll or reposition in bed without pain in buttock Correction Goal (LTG) Patient able to roll or reposition in bed with minimal to no pain 03/14/20: mostly met LTG Duration 05/14/20 Oswestry disability index score Impairment Activity intolerance, Oswestry disability index score 62% Correction Goal (LTG) decrease score to no greater than 30% to help patient resume prior level of function 03/14/20: good goal progress LTG Duration 05/14/20 Two Impairment Patient unable to use alternating pattern to ambulate on stairs Short Term Goal (STG) Patient able to ascend and descend 4 stairs with alternating pattern with minimal to no pain 03/14/20: goal met STG Duration MET Correction Goal (LTG) Patient able to ascend and descend standard (6) stairs with alternating pattern with minimal to no pain LTG Duration 05/14/20 One Impairment pain gloria buttocks left greater than right, pubic pain Short Term Goal (STG) Decrease pain 50% 03/14/20: good goal progress STG Duration 03/22/20 Results Technician Goal (LTG) Decrease pain by at least 75% with patient able to resume prior activity without difficulty LTG Duration 05/14/20 decreased ROM and strength left foot/ankle Impairment tightness and weakness gloria gastroc Results Technician Goal (LTG) Improve gloria foot and ankle ROM and strength to WNL, patient to be independnet with HEP. 02/01/19: good goal progress 03/07/19: has had more pain recently, fit with ankle brace right foot. 04/27/19: now has new ankle brace left. exercise and activity limited by bilateral foot pain. 03/30/19: 4/5 left 4-/5 right LTG Duration 06/06/19 pain right foot/ankle Impairment bilateral foot and ankle pain limiting activity Results Technician Goal (LTG) Improve pain right foot and ankle sufficient to allow her to increase her walking ability from 2-6 blocks for functional community ambulation 02/01/19: decreased tolerance for weight-bearing activity today. 03/07/19: just obtained new foot brace, working on increasing wear time 04/27/19: has not been able to progress, but just obtained left foot brace LTG Duration 06/06/19 Antalgic gait Impairment antalgic gait, using FWW Results Technician Goal (LTG) Patient able to ambulate with least restrictive assistive device with mninimal to no limp 11/07/19: patient now ambulating with a straight cane, with only mild limp LTG Duration 06/06/19 Assessment Summary Assessment Patient demonstrating improved self-care compliace with ther ex, self-massage. Tolerated shuttle leg press today. Continues to need further core strengthening. Physical Therapy Plan Frequency and Duration Frequency of Treatment 2x/Week Duration of Treatment 12 weeks Plan of Care Start Date 02/14/20 Plan of Care End Date 05/14/20 Next Visit Focus/Plan Next Note Type Treatment Note Next Visit Plan Patient to talk with neurologist regarding EMG results tomorrow. Continue PT per POC pending any further physician recommendations.
--- NOTE | 2020-04-01 12:33 | PT.OTN ---
Current Diagnoses Spinal stenosis, lumbar region without neurogenic claudication (04/04/20) Low back pain (04/04/20) Other muscle spasm (04/04/20) Difficulty in walking, not elsewhere classified (04/04/20) Weakness (04/04/20) Physical Therapy Treatment Note PT-OP-A Visit Information Start: 02/14/20 08:08 Freq: Status: Active Protocol: Document 04/01/20 14:29 [facility] (Rec: 04/01/20 15:17 [facility] [id number]) Out-Patient Physical Therapy Visit Information Visit Information Visit Type Treatment Note Visit Start Time 14:30 Visit Stop Time 15:30 Total Visit Minutes 60 Visit Number 10 Number of COMPUTER NETWORK SPECIALIST Visits 0 PT-OP-B Current Condition Start: 02/14/20 08:08 Freq: Status: Active Protocol: Document 02/14/20 09:04 [facility] (Rec: 02/14/20 09:30 [facility] [id number]) Current Condition History of Current Condition Onset Date 5 weeks Current Complaints buttock pain gloria left greater than right, pubic pain central History of Current Condition 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 States she got up from chair, felt excrutiating pain (almost wrost pain ever had) in buttock left greater than right. States doctors think the pain coming from low back but she disagrees: I know what pain from my low back feels like. 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 Has been getting some better, can now sit, but pain persists and limits her activity. Has been seen in PT by this therapist previously and has been doing ther ex, ice, heat, using ball for self -massage. Reports hysicians wanting to refer patient to spinal surgeon due to MRI showing bulging disc at L34, but she refuses at this time. Pain worse with prolonged sitting on any surface. Because of pain can't ambulate on stairs with alternating pattern due to pain. Trying to walk. Hasn't been able to go the pool. Feels weak. Has been trying to change positions more frequently. Sleeps with a heating pad between her legs due to pubic pain. Has low back pain but states she feels more weak than painful in back. Also has peroneal tendonitis right ankle; was in a lace-up splint over past month, pain improved. Having insoles changed next week. Denies shooting pain down leg or any giving way of legs. Has EMG next week at due to persistent numbness right LE, across ankle into big toe that she has had since spinal surgery. Prior Treatments and Tests MRI spine 01/30/20. Future Testing and Treatments Planned EMG 02/21/20. Treatment Goals Patient/Caregiver Goals Decreasing pain, improving strength and activity tolerance. PT-OP-C Subjective Start: 02/14/20 08:08 Freq: Status: Active Protocol: Document 04/01/20 14:29 [facility] (Rec: 04/01/20 15:17 [facility] [id number]) OP-PT Subjective Patient Comments Patient Comments wakes up with right hip almost feeling like its going to give way, but overall most symptoms seem to be getting better. Went to get new shoe inserts but manager wholesale trimmed them too short so they have to be remade. Talked with neurologist, EMG report; L4 radiculopathy gloria. Patient also reports right big toe pain persisting. Doctor may schedule her another injection , possibly L5 due to big toe pain, or higher due to continued L4 radiculopathy. Reports she cancelled last PT appointment PT-OP-G Mobility & Gait Start: 02/14/20 08:08 Freq: Status: Active Protocol: Document 02/14/20 11:13 [facility] (Rec: 02/14/20 11:56 [facility] [id number]) OP Gait Assessment Gait Deviations General Gait Pattern Antalgic,Decreased Stride Length,Decreased Feet Clearance Factors Limiting Gait Function Factors Limiting Gait Function Pain Stair Climbing Evaluation Evaluation Level of Assist On Stairs Standby Assistance Technique/Endurance Stair Climbing Technique Step to Step PT-OP-H Neuro Start: 02/14/20 08:08 Freq: Status: Active Protocol: Document 02/14/20 11:13 [facility] (Rec: 02/14/20 11:56 [facility] [id number]) Sensation Evaluation Gross Sensation Gross Sensation Right LE Impaired Sensation Description Numbness Dermatome Impairments L5 PT-OP-J Posture/Palpation/Skin Start: 02/14/20 08:08 Freq: Status: Active Protocol: Document 02/14/20 11:13 [facility] (Rec: 02/14/20 11:56 [facility] [id number]) Posture Evaluation Position Standing Head/C-Spine Posture Forward Head Shoulder Posture (L) Rounded,(R) Rounded Scapula Posture (L) Protracted,(R) Protracted Pelvis Posture Anteriorly Tilted Weight Distribution Weight Shifted Right Hip Posture (L) Externally Rotated,(R) Externally Rotated Ankle/Foot Posture (L) Pronated,(R) Pronated Foot Arch (L) Low Arch,(R) Low Arch Palpation Assessment Location Two Palpation Location pubic symphysis Palpation Findings Tenderness One Palpation Location piriformis left, left sciatic notch Palpation Findings Soft Tissue Tightness,Muscle Guarding,Tenderness,Trigger Point PT-OP-K Range of Motion Start: 02/14/20 08:08 Freq: Status: Active Protocol: Document 02/14/20 11:13 [facility] (Rec: 02/14/20 11:56 [facility] [id number]) Lumbar Spine Range of Motion Lumbar Spine Active Comments mild to mod decrease all motions but reports minimal pain LB or buttock Hip Goniometric Range of Motion Hip right passive Flexion w/Knee Flexed 120 Straight Leg Raise 65 Extension 0 Internal Rotation 30 External Rotation 55 Left passive Flexion w/Knee Flexed 110 Straight Leg Raise 70 Extension 0 Internal Rotation 25 External Rotation 60 Right Active Straight Leg Raise 55 Left Active Straight Leg Raise 60 Hip ROM Limitations Hip ROM Limitations Soft Tissue Tightness,Muscle Weakness,Pain Knee Goniometric Range of Motion Knee gloria Knee ROM WFL Yes Ankle and Foot Goniometric Range of Motion Ankle and Foot Right Active Ankle/Foot ROM WFL No Dorsiflexion with Knee Flexed 8 Dorsiflexion with Knee Extended 4 Left Ankle/Foot ROM WFL No Dorsiflexion with Knee Flexed 5 Dorsiflexion with Knee Extended 3 PT-OP-L Special Tests Start: 02/14/20 08:08 Freq: Status: Active Protocol: Document 02/14/20 11:13 [facility] (Rec: 02/14/20 11:56 [facility] [id number]) Special Tests Lumbar Spine Special Tests Josh Test Results positive for muscle tightness Standing Flexion Test Results negative Slump Test Results negative gloria Stork Test Test Results unable to tolerate Straight Leg Raise Test Results positive only for muscle tightness Hip Special Tests Straight Leg Raise Test Results positive for muscle tightness only Trendelenberg Test Results positive for muscle weakness left Piriformis Test Results positive left PT-OP-M Strength Start: 02/14/20 08:08 Freq: Status: Active Protocol: Document 02/14/20 11:13 [facility] (Rec: 02/14/20 11:56 [facility] [id number]) Hip Strength Hip Manual Muscle Testing Left Flexion (L2) 4- Good- Extension (S1) 3+ Fair+ Abduction 3+ Fair+ Adduction 4- Good- External Rotation 3+ Fair+ Internal Rotation 4- Good- Right Flexion (L2) 4 Good Extension (S1) 3+ Fair+ Abduction 4- Good- Adduction 4- Good- External Rotation 4 Good Internal Rotation 4+ Good+ Knee Strength Knee Manual Muscle Testing gloria Flexion (S2) 4+ Good+ Extension (L3) 4+ Good+ Ankle/Foot Strength Ankle and Foot Manual Muscle Testing Right Dorsiflexion (L4) 4 Good Plantarflexion (S1) 4- Good- Left Dorsiflexion (L4) 5 Normal Plantarflexion (S1) 4 Good Toe Strength Toe Manual Muscle Testing Left Extension 4- Good- Right Great Toe Extension 4 Good PT-OP-Q Treatments Start: 02/14/20 08:08 Freq: Status: Active Protocol: Document 04/01/20 14:29 [facility] (Rec: 04/01/20 15:17 [facility] [id number]) Cardio Equipment Recumbent Stepper (Sci-Fit) Duration (Minutes) 10 Resistance 1.5 Seat Position 11 Other verbal and manual cues for LE alignment, core activation Gym Equipment Shuttle Recovery Unilateral Squats Resistance 25 gloria Shuttle Recovery Platform Stable Bilateral Squats Details core activation Resistance 67 Shuttle Recovery Platform Stable Reps/Time 10x2 Therapeutic Exercises Sitting Exercises short foot Reps/Minutes 5x HC stretch Reps/Minutes 1x30 Comments closed chain PT-OP-R Modalities Start: 02/14/20 08:08 Freq: Status: Active Protocol: Document 04/01/20 14:29 [facility] (Rec: 04/01/20 16:23 [facility] [id number]) Hot Pack/Cold Pack Treatment Hot Pack Location lumbosacral spine, right groin Patient Position Supine Treatment Duration (minutes) 15 Patient Tolerance Good PT-OP-T Assessment and Plan Start: 02/14/20 08:08 Freq: Status: Active Protocol: Document 04/01/20 14:29 [facility] (Rec: 04/01/20 15:17 [facility] [id number]) Physical Therapy Assessment Goals Four Impairment muscle imbalances bilateral hips and pelvis Short Term Goal (STG) Update patient's HEP to address muscle imbalances 03/14/20: good progress, continue to add/modify 04/01/20: continues to progress with HEP STG Duration 03/06/20 Optical Advisor Goal (LTG) Patient to demonstrate symmetrical ROM (w/in 5 degrees) and strength (within 1/2 grade) of all muscle groups bilateral hips and pelvis. 03/14/20: goal progress 04/01/20: continues to progress , compliant with HEP LTG Duration 05/14/20 Three Impairment unable to roll or reposition in bed without pain in buttock Optical Advisor Goal (LTG) Patient able to roll or reposition in bed with minimal to no pain 03/14/20: mostly met 04/01/20: 90% met, as long as activates core and pays attention to technique LTG Duration 05/14/20 Oswestry disability index score Impairment Activity intolerance, Oswestry disability index score 62% Fdc Goal (LTG) decrease score to no greater than 30% to help patient resume prior level of function 03/14/20: good goal progress 04/01/20: 36% LTG Duration 05/14/20 LBP with radicular symptoms Impairment LBP with radiucular symptoms 8 /10 Short Term Goal (STG) Decrease pain to no greater than 4/10 04/01/20: mostly met, occasional flares to 6-8/10. STG Duration 04/22/20 Fdc Goal (LTG) Decrease pain to no greater than 2/10 04/01/20: goal progress: patient reports occasional times of minimal to no pain LTG Duration 09/10/18 One Impairment pain gloria buttocks left greater than right, pubic pain Short Term Goal (STG) Decrease pain 50% 03/14/20: good goal progress STG Duration 03/22/20 Optical Advisor Goal (LTG) Decrease pain by at least 75% with patient able to resume prior activity without difficulty LTG Duration 05/14/20 Assessment Summary Assessment Patient demonstrating improvements in all goal areas . Foot and ankle dysfunction appears to contribute to patient exacerbations due to altered biomechanics, though patient demonstrating improved ability to self-manage. Physical Therapy Plan Frequency and Duration Frequency of Treatment 2x/Week Duration of Treatment 12 weeks Plan of Care Start Date 02/14/20 Plan of Care End Date 05/14/20 Therapeutic Interventions Therapeutic Interventions Home Exercise Program,Manual Therapy,Neuromuscular Re- education,Patient/Caregiver Education,Self-Care/Home Management,Soft Tissue Mobilization,Taping, Therapeutic Activities, Therapeutic Exercises Modalities Cold Pack/Ice Massage,Electric Stimulation,Hot Packs, Infrared Therapy,Ultrasound Next Visit Focus/Plan Next Note Type Treatment Note Next Visit Plan Continue PT to decrease pain, improve strength and ROM, improve activity tolerance
--- NOTE | 2020-04-04 14:30 | PT.OTN ---
Current Diagnoses Spinal stenosis, lumbar region without neurogenic claudication (04/04/20) Low back pain (04/04/20) Other muscle spasm (04/04/20) Difficulty in walking, not elsewhere classified (04/04/20) Weakness (04/04/20) Physical Therapy Treatment Note PT-OP-A Visit Information Start: 02/14/20 08:08 Freq: Status: Active Protocol: Document 04/04/20 14:30 [facility] (Rec: 04/08/20 08:34 [facility] [id number]) Out-Patient Physical Therapy Visit Information Visit Information Visit Type Treatment Note Visit Start Time 14:30 Visit Stop Time 15:30 Total Visit Minutes 60 Visit Number 11 Number of [employer] Visits 0 Evaluation Information Evaluation Date 02/14/20 Precautions Precautions L4-S1 fusion ankle fusions PT-OP-B Current Condition Start: 02/14/20 08:08 Freq: Status: Active Protocol: Document 02/14/20 09:04 [facility] (Rec: 02/14/20 09:30 [facility] [id number]) Current Condition History of Current Condition Onset Date 5 weeks Current Complaints buttock pain gloria left greater than right, pubic pain central History of Current Condition Prolonged sitting [employer] needlepoint session for a few days. States she got up from chair, felt excrutiating pain (almost wrost pain ever had) in buttock left greater than right. States doctors think the pain coming from low back but she disagrees: I know what pain from my low back feels like. 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 Has been getting some better, can now sit, but pain persists and limits her activity. Has been seen in PT by this therapist previously and has been doing ther ex, ice, heat, using ball for self -massage. Reports hysicians wanting to refer patient to spinal surgeon due to MRI showing bulging disc at L34, but she refuses at this time. Pain worse with prolonged sitting on any surface. Because of pain can't ambulate on stairs with alternating pattern due to pain. Trying to walk. Hasn't been able to go the pool. Feels weak. Has been trying to change positions more frequently. Sleeps with a heating pad between her legs due to pubic pain. Has low back pain but states she feels more weak than painful in back. Also has peroneal tendonitis right ankle; was in a lace-up splint over past month, pain improved. Having insoles changed next week. Denies shooting pain down leg or any giving way of legs. Has EMG next week at due to persistent numbness right LE, across ankle into big toe that she has had since spinal surgery. Prior Treatments and Tests MRI spine 01/30/20. Future Testing and Treatments Planned EMG 02/21/20. Treatment Goals Patient/Caregiver Goals Decreasing pain, improving strength and activity tolerance. PT-OP-C Subjective Start: 02/14/20 08:08 Freq: Status: Active Protocol: Document 04/04/20 14:30 [facility] (Rec: 04/08/20 08:34 [facility] [id number]) OP-PT Subjective Patient Comments Patient Comments Patient reports she has had coccyx pain at 6-8/10 since yesterday at about 12:00; states she cancelled her rheumatology appointment due to feeling unable to sit long enough to make it to appointment in [place]. Her rescheduled appointment is on 04/17/20. Today pain a little better at 6/10. States she used heating pad and did stretching exercises x 2 yesterday. PT-OP-G Mobility & Gait Start: 02/14/20 08:08 Freq: Status: Active Protocol: Document 02/14/20 11:13 [facility] (Rec: 02/14/20 11:56 [facility] [id number]) OP Gait Assessment Gait Deviations General Gait Pattern Antalgic,Decreased Stride Length,Decreased Feet Clearance Factors Limiting Gait Function Factors Limiting Gait Function Pain Stair Climbing Evaluation Evaluation Level of Assist On Stairs Standby Assistance Technique/Endurance Stair Climbing Technique Step to Step PT-OP-H Neuro Start: 02/14/20 08:08 Freq: Status: Active Protocol: Document 02/14/20 11:13 [facility] (Rec: 02/14/20 11:56 [facility] [id number]) Sensation Evaluation Gross Sensation Gross Sensation Right LE Impaired Sensation Description Numbness Dermatome Impairments L5 PT-OP-J Posture/Palpation/Skin Start: 02/14/20 08:08 Freq: Status: Active Protocol: Document 02/14/20 11:13 [facility] (Rec: 02/14/20 11:56 [facility] [id number]) Posture Evaluation Position Standing Head/C-Spine Posture Forward Head Shoulder Posture (L) Rounded,(R) Rounded Scapula Posture (L) Protracted,(R) Protracted Pelvis Posture Anteriorly Tilted Weight Distribution Weight Shifted Right Hip Posture (L) Externally Rotated,(R) Externally Rotated Ankle/Foot Posture (L) Pronated,(R) Pronated Foot Arch (L) Low Arch,(R) Low Arch Palpation Assessment Location Two Palpation Location pubic symphysis Palpation Findings Tenderness One Palpation Location piriformis left, left sciatic notch Palpation Findings Soft Tissue Tightness,Muscle Guarding,Tenderness,Trigger Point PT-OP-K Range of Motion Start: 02/14/20 08:08 Freq: Status: Active Protocol: Document 02/14/20 11:13 [facility] (Rec: 02/14/20 11:56 [facility] [id number]) Lumbar Spine Range of Motion Lumbar Spine Active Comments mild to mod decrease all motions but reports minimal pain LB or buttock Hip Goniometric Range of Motion Hip right passive Flexion w/Knee Flexed 120 Straight Leg Raise 65 Extension 0 Internal Rotation 30 External Rotation 55 Left passive Flexion w/Knee Flexed 110 Straight Leg Raise 70 Extension 0 Internal Rotation 25 External Rotation 60 Right Active Straight Leg Raise 55 Left Active Straight Leg Raise 60 Hip ROM Limitations Hip ROM Limitations Soft Tissue Tightness,Muscle Weakness,Pain Knee Goniometric Range of Motion Knee gloria Knee ROM WFL Yes Ankle and Foot Goniometric Range of Motion Ankle and Foot Right Active Ankle/Foot ROM WFL No Dorsiflexion with Knee Flexed 8 Dorsiflexion with Knee Extended 4 Left Ankle/Foot ROM WFL No Dorsiflexion with Knee Flexed 5 Dorsiflexion with Knee Extended 3 PT-OP-L Special Tests Start: 02/14/20 08:08 Freq: Status: Active Protocol: Document 02/14/20 11:13 [facility] (Rec: 02/14/20 11:56 [facility] [id number]) Special Tests Lumbar Spine Special Tests Josh Test Results positive for muscle tightness Standing Flexion Test Results negative Slump Test Results negative gloria Stork Test Test Results unable to tolerate Straight Leg Raise Test Results positive only for muscle tightness Hip Special Tests Straight Leg Raise Test Results positive for muscle tightness only Trendelenberg Test Results positive for muscle weakness left Piriformis Test Results positive left PT-OP-M Strength Start: 02/14/20 08:08 Freq: Status: Active Protocol: Document 02/14/20 11:13 [facility] (Rec: 02/14/20 11:56 [facility] [id number]) Hip Strength Hip Manual Muscle Testing Left Flexion (L2) 4- Good- Extension (S1) 3+ Fair+ Abduction 3+ Fair+ Adduction 4- Good- External Rotation 3+ Fair+ Internal Rotation 4- Good- Right Flexion (L2) 4 Good Extension (S1) 3+ Fair+ Abduction 4- Good- Adduction 4- Good- External Rotation 4 Good Internal Rotation 4+ Good+ Knee Strength Knee Manual Muscle Testing gloria Flexion (S2) 4+ Good+ Extension (L3) 4+ Good+ Ankle/Foot Strength Ankle and Foot Manual Muscle Testing Right Dorsiflexion (L4) 4 Good Plantarflexion (S1) 4- Good- Left Dorsiflexion (L4) 5 Normal Plantarflexion (S1) 4 Good Toe Strength Toe Manual Muscle Testing Left Extension 4- Good- Right Great Toe Extension 4 Good PT-OP-Q Treatments Start: 02/14/20 08:08 Freq: Status: Active Protocol: Document 04/04/20 14:30 [facility] (Rec: 04/08/20 08:34 [facility] [id number]) Therapeutic Exercises Sitting Exercises hip IR/ER Side bilateral Reps/Minutes 10x glut sets Reps/Minutes 10x seated pelvic tilt Sitting Exercise Name ant/post, side, circles Reps/Minutes 10x Comments cues for submaximal, pain-free pillow squeeze Reps/Minutes 10x Manual Therapy Treatment Soft Tissue Mobilization glutes Body Location R lat Mobilization Type Rolling Intensity/Depth Moderate Body Position Sidelying right piriformis Body Location piriformi & glutes Mobilization Type Myofascial Release,Sustained Pressure,Trigger Point Release Intensity/Depth Moderate Body Position left sidelying PT-OP-R Modalities Start: 02/14/20 08:08 Freq: Status: Active Protocol: Document 04/04/20 14:30 [facility] (Rec: 04/08/20 08:34 [facility] [id number]) Hot Pack/Cold Pack Treatment Hot Pack Location lumbosacral spine, right groin Patient Position Hooklying Treatment Duration (minutes) 15 Patient Tolerance Good PT-OP-T Assessment and Plan Start: 02/14/20 08:08 Freq: Status: Active Protocol: Document 04/04/20 14:30 [facility] (Rec: 04/08/20 08:34 [facility] [id number]) Physical Therapy Assessment Assessment Summary Assessment Patient reported both seated exercises as well as deep tissue work right buttock was helpful for decreasing her pain. Reports pain 4/10 or less after exercises, less after deep tissue work. Issued updated written HEP Physical Therapy Plan Frequency and Duration Frequency of Treatment 2x/Week Duration of Treatment 12 weeks Plan of Care Start Date 02/14/20 Plan of Care End Date 05/14/20 Therapeutic Interventions Therapeutic Interventions Home Exercise Program,Manual Therapy,Neuromuscular Re- education,Patient/Caregiver Education,Self-Care/Home Management,Soft Tissue Mobilization,Taping, Therapeutic Activities, Therapeutic Exercises Modalities Cold Pack/Ice Massage,Electric Stimulation,Hot Packs, Infrared Therapy,Ultrasound Next Visit Focus/Plan Next Note Type Treatment Note Next Visit Plan Evaluate response to last session, review updated HEP. Assess pelvic alignment and consider pelvic re-alignment exercises.
--- NOTE | 2020-04-08 10:02 | PT-OP ANOTE ---
cancelled due to Covid19 vaccine allergic reaction
--- NOTE | 2020-04-11 17:23 | PT.OTN ---
Current Diagnoses Spinal stenosis, lumbar region without neurogenic claudication (04/11/20) Low back pain (04/11/20) Other muscle spasm (04/11/20) Difficulty in walking, not elsewhere classified (04/11/20) Weakness (04/11/20) Physical Therapy Treatment Note PT-OP-A Visit Information Start: 02/14/20 08:08 Freq: Status: Active Protocol: Document 04/11/20 14:27 [facility] (Rec: 04/11/20 14:52 [facility] [id number]) Out-Patient Physical Therapy Visit Information Visit Information Visit Type Treatment Note Visit Start Time 14:30 Visit Stop Time 15:30 Total Visit Minutes 60 Visit Number 11 Number of [employer]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 States she got up from chair, felt excrutiating pain (almost wrost pain ever had) in buttock left greater than right. States doctors think the pain coming from low back but she disagrees: I know what pain from my low back feels like. 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 Has been getting some better, can now sit, but pain persists and limits her activity. Has been seen in PT by this therapist previously and has been doing ther ex, ice, heat, using ball for self -massage. Reports hysicians wanting to refer patient to spinal surgeon due to MRI showing bulging disc at L34, but she refuses at this time. Pain worse with prolonged sitting on any surface. Because of pain can't ambulate on stairs with alternating pattern due to pain. Trying to walk. Hasn't been able to go the pool. Feels weak. Has been trying to change positions more frequently. Sleeps with a heating pad between her legs due to pubic pain. Has low back pain but states she feels more weak than painful in back. Also has peroneal tendonitis right ankle; was in a lace-up splint over past month, pain improved. Having insoles changed next week. Denies shooting pain down leg or any giving way of legs. Has EMG next week at due to persistent numbness right LE, across ankle into big toe that she has had since spinal surgery. Prior Treatments and Tests MRI spine 01/30/20. Future Testing and Treatments Planned EMG 02/21/20. Treatment Goals Patient/Caregiver Goals Decreasing pain, improving strength and activity tolerance. PT-OP-C Subjective Start: 02/14/20 08:08 Freq: Status: Active Protocol: Document 04/11/20 14:27 [facility] (Rec: 04/11/20 14:52 [facility] [id number]) OP-PT Subjective Patient Comments Patient Comments Patient had reaction to Covid19 vaccine. Coccyx still hurting, has ordered a pillow for coccyx relief. Was better after PT but pain gradually resumed. Feels better with gluteal squeezes, pillow squeezes PT-OP-G Mobility & Gait Start: 02/14/20 08:08 Freq: Status: Active Protocol: Document 02/14/20 11:13 [facility] (Rec: 02/14/20 11:56 [facility] [id number]) OP Gait Assessment Gait Deviations General Gait Pattern Antalgic,Decreased Stride Length,Decreased Feet Clearance Factors Limiting Gait Function Factors Limiting Gait Function Pain Stair Climbing Evaluation Evaluation Level of Assist On Stairs Standby Assistance Technique/Endurance Stair Climbing Technique Step to Step PT-OP-H Neuro Start: 02/14/20 08:08 Freq: Status: Active Protocol: Document 02/14/20 11:13 [facility] (Rec: 02/14/20 11:56 [facility] [id number]) Sensation Evaluation Gross Sensation Gross Sensation Right LE Impaired Sensation Description Numbness Dermatome Impairments L5 PT-OP-J Posture/Palpation/Skin Start: 02/14/20 08:08 Freq: Status: Active Protocol: Document 02/14/20 11:13 [facility] (Rec: 02/14/20 11:56 [facility] [id number]) Posture Evaluation Position Standing Head/C-Spine Posture Forward Head Shoulder Posture (L) Rounded,(R) Rounded Scapula Posture (L) Protracted,(R) Protracted Pelvis Posture Anteriorly Tilted Weight Distribution Weight Shifted Right Hip Posture (L) Externally Rotated,(R) Externally Rotated Ankle/Foot Posture (L) Pronated,(R) Pronated Foot Arch (L) Low Arch,(R) Low Arch Palpation Assessment Location Two Palpation Location pubic symphysis Palpation Findings Tenderness One Palpation Location piriformis left, left sciatic notch Palpation Findings Soft Tissue Tightness,Muscle Guarding,Tenderness,Trigger Point PT-OP-K Range of Motion Start: 02/14/20 08:08 Freq: Status: Active Protocol: Document 02/14/20 11:13 [facility] (Rec: 02/14/20 11:56 [facility] [id number]) Lumbar Spine Range of Motion Lumbar Spine Active Comments mild to mod decrease all motions but reports minimal pain LB or buttock Hip Goniometric Range of Motion Hip right passive Flexion w/Knee Flexed 120 Straight Leg Raise 65 Extension 0 Internal Rotation 30 External Rotation 55 Left passive Flexion w/Knee Flexed 110 Straight Leg Raise 70 Extension 0 Internal Rotation 25 External Rotation 60 Right Active Straight Leg Raise 55 Left Active Straight Leg Raise 60 Hip ROM Limitations Hip ROM Limitations Soft Tissue Tightness,Muscle Weakness,Pain Knee Goniometric Range of Motion Knee gloria Knee ROM WFL Yes Ankle and Foot Goniometric Range of Motion Ankle and Foot Right Active Ankle/Foot ROM WFL No Dorsiflexion with Knee Flexed 8 Dorsiflexion with Knee Extended 4 Left Ankle/Foot ROM WFL No Dorsiflexion with Knee Flexed 5 Dorsiflexion with Knee Extended 3 PT-OP-L Special Tests Start: 02/14/20 08:08 Freq: Status: Active Protocol: Document 02/14/20 11:13 [facility] (Rec: 02/14/20 11:56 [facility] [id number]) Special Tests Lumbar Spine Special Tests Josh Test Results positive for muscle tightness Standing Flexion Test Results negative Slump Test Results negative gloria Stork Test Test Results unable to tolerate Straight Leg Raise Test Results positive only for muscle tightness Hip Special Tests Straight Leg Raise Test Results positive for muscle tightness only Trendelenberg Test Results positive for muscle weakness left Piriformis Test Results positive left PT-OP-M Strength Start: 02/14/20 08:08 Freq: Status: Active Protocol: Document 02/14/20 11:13 [facility] (Rec: 02/14/20 11:56 [facility] [id number]) Hip Strength Hip Manual Muscle Testing Left Flexion (L2) 4- Good- Extension (S1) 3+ Fair+ Abduction 3+ Fair+ Adduction 4- Good- External Rotation 3+ Fair+ Internal Rotation 4- Good- Right Flexion (L2) 4 Good Extension (S1) 3+ Fair+ Abduction 4- Good- Adduction 4- Good- External Rotation 4 Good Internal Rotation 4+ Good+ Knee Strength Knee Manual Muscle Testing gloria Flexion (S2) 4+ Good+ Extension (L3) 4+ Good+ Ankle/Foot Strength Ankle and Foot Manual Muscle Testing Right Dorsiflexion (L4) 4 Good Plantarflexion (S1) 4- Good- Left Dorsiflexion (L4) 5 Normal Plantarflexion (S1) 4 Good Toe Strength Toe Manual Muscle Testing Left Extension 4- Good- Right Great Toe Extension 4 Good PT-OP-Q Treatments Start: 02/14/20 08:08 Freq: Status: Active Protocol: Document 04/11/20 14:27 [facility] (Rec: 04/11/20 14:52 [facility] [id number]) Therapeutic Exercises Sitting Exercises hip IR/ER Side bilateral Reps/Minutes 10x glut sets Reps/Minutes 10x2 Comments gloria and unil seated pelvic tilt Sitting Exercise Name ant/post, side, circles Reps/Minutes 10x Comments cues for submaximal, pain-free pillow squeeze Reps/Minutes 10x Manual Therapy Treatment Soft Tissue Mobilization right piriformis Body Location piriformi & glutes Mobilization Type Myofascial Release,Sustained Pressure,Trigger Point Release Intensity/Depth Moderate Body Position left sidelying PT-OP-R Modalities Start: 02/14/20 08:08 Freq: Status: Active Protocol: Document 04/11/20 14:27 [facility] (Rec: 04/11/20 14:52 [facility] [id number]) Hot Pack/Cold Pack Treatment Hot Pack Location lumbosacral spine, right groin Patient Position Hooklying Treatment Duration (minutes) 15 Patient Tolerance Good PT-OP-T Assessment and Plan Start: 02/14/20 08:08 Freq: Status: Active Protocol: Document 04/11/20 14:27 [facility] (Rec: 04/11/20 14:52 [facility] [id number]) Physical Therapy Plan Frequency and Duration Frequency of Treatment 2x/Week Duration of Treatment 12 weeks Plan of Care Start Date 02/14/20 Plan of Care End Date 05/14/20 Therapeutic Interventions Therapeutic Interventions Home Exercise Program,Manual Therapy,Neuromuscular Re- education,Patient/Caregiver Education,Self-Care/Home Management,Soft Tissue Mobilization,Taping, Therapeutic Activities, Therapeutic Exercises Modalities Cold Pack/Ice Massage,Electric Stimulation,Hot Packs, Infrared Therapy,Ultrasound Next Visit Focus/Plan Next Note Type Treatment Note Next Visit Plan Patient reports improved pain with exercises and manual therapy. Has ordered pillow for coccyx pain relief. Demonstrated good understanding of ergonomic sitting principles and was given handout to go over with ; patient forgot to have take picture of her sitting at computer and doing art. At this time patient is scheduled for follow-up in 3-4 wks. We will determine need for further PT at that time.
--- NOTE | 2020-05-09 14:15 | PT.OPPOC ---
Physical, Occupational & Speech Therapy At [facility] Current Diagnoses Spinal stenosis, lumbar region without neurogenic claudication (05/09/20) Low back pain (05/09/20) Other muscle spasm (05/09/20) Difficulty in walking, not elsewhere classified (05/09/20) Weakness (05/09/20) Visit Care Team Role Provider Type Ellie Fountain PA-C Attending Provider Non-Staff Primary Care Provider Referring Provider Specialty: Internal Medicine Address: [address] [place] [address], [facility] Email: [email or web address] Plan Of Care PT-OP-T Assessment and Plan Start: 02/14/20 08:08 Freq: Status: Active Protocol: Document 05/09/20 14:29 SAK (Rec: 05/09/20 14:57 SAK [id number]) Physical Therapy Assessment Goals Four Impairment muscle imbalances bilateral hips and pelvis Short Term Goal (STG) Update patient's HEP to address muscle imbalances 03/14/20: good progress, continue to add/modify 04/01/20: continues to progress with HEP 05/09/20: Independent with HEP, goal progress with strength. STG Duration goal met License Registration Examiner Goal (LTG) Patient to demonstrate symmetrical ROM (w/in 5 degrees) and strength (within 1/2 grade) of all muscle groups bilateral hips and pelvis. 03/14/20: goal progress 04/01/20: continues to progress , compliant with HEP 05/09/20: goal progress LTG Duration GOAL mostly met, patient cont with HEP Three Impairment unable to roll or reposition in bed without pain in buttock Short Term Goal (STG) Establish abdominal stabilization HEP 02/01/19: continue to progress HEP 02/25/19: goal progress 03/30/19: goal progress; continued need to modify 04/27/19: goal met STG Duration goal met Long-Term Goal (LTG) Patient able to roll or reposition in bed with minimal to no pain 03/14/20: mostly met 04/01/20: 90% met, as long as activates core and pays attention to technique LTG Duration goal met Oswestry disability index score Impairment Activity intolerance, Oswestry disability index score 62% License Registration Examiner Goal (LTG) decrease score to no greater than 30% to help patient resume prior level of function 03/14/20: good goal progress 04/01/20: 36% 05/09/20: 42% LTG Duration 05/14/20 LBP with radicular symptoms Impairment LBP with radiucular symptoms 8 / Short Term Goal (STG) Decrease pain to no greater than 4/10 04/01/20: mostly met, occasional flares to 6-8/10. 05/09/20: 3/10 STG Duration goal met Long-Term Goal (LTG) Decrease pain to no greater than 2/10 04/01/20: goal progress: patient reports occasional times of minimal to no pain 05/09/20: 3/10 (5/10 right great toe) LTG Duration partially met Two Impairment Patient unable to use alternating pattern to ambulate on stairs Short Term Goal (STG) Patient able to ascend and descend 4 stairs with alternating pattern with minimal to no pain 03/14/20: goal met STG Duration MET License Registration Examiner Goal (LTG) Patient able to ascend and descend standard (6) stairs with alternating pattern with minimal to no pain 05/09/20: goal mostly met LTG Duration goal mostly met Physical Therapy Plan Frequency and Duration Frequency of Treatment Every Other Week Duration of Treatment 8 Plan of Care Start Date 05/09/20 Plan of Care End Date 07/09/20 Therapeutic Interventions Therapeutic Interventions Home Exercise Program,Manual Therapy,Neuromuscular Re- education,Patient/Caregiver Education,Self-Care/Home Management,Soft Tissue Mobilization,Taping, Therapeutic Activities, Therapeutic Exercises Modalities Cold Pack/Ice Massage,Electric Stimulation,Hot Packs, Infrared Therapy,Ultrasound Next Visit Focus/Plan Next Note Type Re-Evaluation Next Visit Plan Patient has made good progress with PT, not fully achieved goals, but feel lack of medication and inability to do aquatic exercise during the pandemic had big impact on patient status. She demonstrates good understanding of her HEP and self-care, and plans to return to aquatic exercise after getting second Covid shot. She has obtained a cushion for offloading her coccyx and has good tolerance for sitting with the use of the cushion. Agreed to patient continuing with self-care, HEP, aquatic exercise and seeing what effect resuming medication all has on her before returning for re-evaluation in PT to determine if any further PT indicated. Plan of Care Dates Plan of Care Start Date 05/09/20 Plan of Care End Date 07/09/20 Electronically Signed by: Julee Gee, PT 05/23/20 [id number] Please Sign and Return: I have reviewed this Plan of Care and certify that the skilled therapy services above are required to meet the patient?s needs. Physician Signature Date Printed Name and Credentials Clinical Instructor Signature Printed Name and Credentials
--- NOTE | 2020-05-09 14:15 | PT.OTRE ---
Current Diagnoses Spinal stenosis, lumbar region without neurogenic claudication (05/09/20) Low back pain (05/09/20) Other muscle spasm (05/09/20) Difficulty in walking, not elsewhere classified (05/09/20) Weakness (05/09/20) Visit Care Team Role Provider Type Ellie Fountain PA-C Attending Provider Non-Staff Primary Care Provider Referring Provider Specialty: Internal Medicine Address: [address] [place] [address], [facility] Email: [email or web address] Physical Therapy Re-Evaluation PT-OP-A Visit Information Start: 02/14/20 08:08 Freq: Status: Active Protocol: Document 05/09/20 14:29 SAK (Rec: 05/09/20 14:57 SAK [id number]) Out-Patient Physical Therapy Visit Information Visit Information Visit Type Treatment Note Visit Start Time 14:30 Visit Stop Time 15:30 Total Visit Minutes 60 Visit Number 12 Precautions Precautions LL4-S1 fusion ankle fusions PT-OP-B Current Condition Start: 02/14/20 08:08 Freq: Status: Active Protocol: Document 02/14/20 09:04 SAK (Rec: 02/14/20 09:30 SAK [id number]) Current Condition History of Current Condition Onset Date 5 weeks Current Complaints buttock pain gloria left greater than right, pubic pain central History of Current Condition 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 States she got up from chair, felt excrutiating pain (almost wrost pain ever had) in buttock left greater than right. States doctors think the pain coming from low back but she disagrees: I know what pain from my low back feels like. 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 Has been getting some better, can now sit, but pain persists and limits her activity. Has been seen in PT by this therapist previously and has been doing ther ex, ice, heat, using ball for self -massage. Reports hysicians wanting to refer patient to spinal surgeon due to MRI showing bulging disc at L34, but she refuses at this time. Pain worse with prolonged sitting on any surface. Because of pain can't ambulate on stairs with alternating pattern due to pain. Trying to walk. Hasn't been able to go the pool. Feels weak. Has been trying to change positions more frequently. Sleeps with a heating pad between her legs due to pubic pain. Has low back pain but states she feels more weak than painful in back. Also has peroneal tendonitis right ankle; was in a lace-up splint over past month, pain improved. Having insoles changed next week. Denies shooting pain down leg or any giving way of legs. Has EMG next week at due to persistent numbness right LE, across ankle into big toe that she has had since spinal surgery. Prior Treatments and Tests MRI spine 01/30/20. Future Testing and Treatments Planned EMG 02/21/20. Treatment Goals Patient/Caregiver Goals Decreasing pain, improving strength and activity tolerance. PT-OP-C Subjective Start: 02/14/20 08:08 Freq: Status: Active Protocol: Document 05/09/20 14:29 [facility] (Rec: 05/09/20 14:57 [facility] [id number]) OP-PT Subjective Patient Comments Patient Comments Every day when wakes up has pain outside of right hip and radiates into front right thigh; sometimes it works its way out, sometimes it doesn't. Big toe has been killing me , know it's my L5. Next week goes back on Lefluonimide ( Arava) and Prednisone per churner. Had bad reaction after second Covid shot 05/06/20, plans to go back to pool for aquatic exercise in one month. Keeps heating pad on setting one. Sleeps on either side or back. Patient fell onto floor from her bed the other night and twisted right leg, crawled to the end of bed to get up Got her orthotics, doesn't have on now due to gradually increasing wear time, feet feel better in the orthtics. PT-OP-G Mobility & Gait Start: 02/14/20 08:08 Freq: Status: Active Protocol: Document 02/14/20 11:13 SAK (Rec: 02/14/20 11:56 [facility] [id number]) OP Gait Assessment Gait Deviations General Gait Pattern Antalgic,Decreased Stride Length,Decreased Feet Clearance Factors Limiting Gait Function Factors Limiting Gait Function Pain Stair Climbing Evaluation Evaluation Level of Assist On Stairs Standby Assistance Technique/Endurance Stair Climbing Technique Step to Step PT-OP-H Neuro Start: 02/14/20 08:08 Freq: Status: Active Protocol: Document 02/14/20 11:13 SAK (Rec: 02/14/20 11:56 [facility] [id number]) Sensation Evaluation Gross Sensation Gross Sensation Right LE Impaired Sensation Description Numbness Dermatome Impairments L5 PT-OP-J Posture/Palpation/Skin Start: 02/14/20 08:08 Freq: Status: Active Protocol: Document 02/14/20 11:13 [facility] (Rec: 02/14/20 11:56 [facility] [id number]) Posture Evaluation Position Standing Head/C-Spine Posture Forward Head Shoulder Posture (L) Rounded,(R) Rounded Scapula Posture (L) Protracted,(R) Protracted Pelvis Posture Anteriorly Tilted Weight Distribution Weight Shifted Right Hip Posture (L) Externally Rotated,(R) Externally Rotated Ankle/Foot Posture (L) Pronated,(R) Pronated Foot Arch (L) Low Arch,(R) Low Arch Palpation Assessment Location Two Palpation Location pubic symphysis Palpation Findings Tenderness One Palpation Location piriformis left, left sciatic notch Palpation Findings Soft Tissue Tightness,Muscle Guarding,Tenderness,Trigger Point PT-OP-K Range of Motion Start: 02/14/20 08:08 Freq: Status: Active Protocol: Document 02/14/20 11:13 [facility] (Rec: 02/14/20 11:56 [facility] [id number]) Lumbar Spine Range of Motion Lumbar Spine Active Comments mild to mod decrease all motions but reports minimal pain LB or buttock Hip Goniometric Range of Motion Hip Measured in Degrees right passive Flexion w/Knee Flexed 120 Straight Leg Raise 65 Extension 0 Internal Rotation 30 External Rotation 55 Left passive Flexion w/Knee Flexed 110 Straight Leg Raise 70 Extension 0 Internal Rotation 25 External Rotation 60 Right Active Straight Leg Raise 55 Left Active Straight Leg Raise 60 Hip ROM Limitations Hip ROM Limitations Soft Tissue Tightness,Muscle Weakness,Pain Knee Goniometric Range of Motion Knee Measured in Degrees gloria Knee ROM WFL Yes Ankle and Foot Goniometric Range of Motion Ankle and Foot Measured in Degrees Right Active Ankle/Foot ROM WFL No Dorsiflexion with Knee Flexed 8 Dorsiflexion with Knee Extended 4 Left Ankle/Foot ROM WFL No Dorsiflexion with Knee Flexed 5 Dorsiflexion with Knee Extended 3 PT-OP-L Special Tests Start: 02/14/20 08:08 Freq: Status: Active Protocol: Document 02/14/20 11:13 [facility] (Rec: 02/14/20 11:56 [facility] [id number]) Special Tests Lumbar Spine Special Tests Josh Test Results positive for muscle tightness Standing Flexion Test Results negative Slump Test Results negative gloria Stork Test Test Results unable to tolerate Straight Leg Raise Test Results positive only for muscle tightness Hip Special Tests Straight Leg Raise Test Results positive for muscle tightness only Trendelenberg Test Results positive for muscle weakness left Piriformis Test Results positive left PT-OP-M Strength Start: 02/14/20 08:08 Freq: Status: Active Protocol: Document 02/14/20 11:13 [facility] (Rec: 02/14/20 11:56 [facility] [id number]) Hip Strength Hip Manual Muscle Testing Left Flexion (L2) 4- Good- Extension (S1) 3+ Fair+ Abduction 3+ Fair+ Adduction 4- Good- External Rotation 3+ Fair+ Internal Rotation 4- Good- Right Flexion (L2) 4 Good Extension (S1) 3+ Fair+ Abduction 4- Good- Adduction 4- Good- External Rotation 4 Good Internal Rotation 4+ Good+ Knee Strength Knee Manual Muscle Testing gloria Flexion (S2) 4+ Good+ Extension (L3) 4+ Good+ Ankle/Foot Strength Ankle and Foot Manual Muscle Testing Right Dorsiflexion (L4) 4 Good Plantarflexion (S1) 4- Good- Left Dorsiflexion (L4) 5 Normal Plantarflexion (S1) 4 Good Toe Strength Toe Manual Muscle Testing Left Extension 4- Good- Right Great Toe Extension 4 Good PT-OP-Q Treatments Start: 02/14/20 08:08 Freq: Status: Active Protocol: Document 05/09/20 14:29 [facility] (Rec: 05/09/20 17:21 [facility] [id number]) Cardio Equipment Recumbent Stepper (Sci-Fit) Duration (Minutes) 10 Resistance 1.5 Seat Position 11 Other verbal and manual cues for LE alignment, core activation Manual Therapy Treatment Soft Tissue Mobilization glutes Body Location R lat Mobilization Type Rolling Intensity/Depth Moderate Body Position Sidelying lateral quads Mobilization Type Myofascial Release,Rolling Intensity/Depth Moderate Body Position Hooklying IT band Mobilization Type Myofascial Release,Rolling Intensity/Depth Moderate Body Position Hooklying Self-Care/Home Management Treatment Education Other Education HEP review, added sidelying quad stretch with strap PT-OP-R Modalities Start: 02/14/20 08:08 Freq: Status: Active Protocol: Document 05/09/20 14:29 [facility] (Rec: 05/09/20 17:23 [facility] [id number]) Hot Pack/Cold Pack Treatment Hot Pack Location lumbosacral spine, right lateral quad and IT band Patient Position Hooklying Treatment Duration (minutes) 15 Patient Tolerance Good PT-OP-T Assessment and Plan Start: 02/14/20 08:08 Freq: Status: Active Protocol: Document 05/09/20 14:29 [facility] (Rec: 05/09/20 14:57 [facility] [id number]) Physical Therapy Assessment Goals Four Impairment muscle imbalances bilateral hips and pelvis Short Term Goal (STG) Update patient's HEP to address muscle imbalances 03/14/20: good progress, continue to add/modify 04/01/20: continues to progress with HEP 05/09/20: Independent with HEP, goal progress with strength. STG Duration goal met Recreation Program Coordinator Goal (LTG) Patient to demonstrate symmetrical ROM (w/in 5 degrees) and strength (within 1/2 grade) of all muscle groups bilateral hips and pelvis. 03/14/20: goal progress 04/01/20: continues to progress , compliant with HEP 05/09/20: goal progress LTG Duration GOAL mostly met, patient cont with HEP Three Impairment unable to roll or reposition in bed without pain in buttock Short Term Goal (STG) Establish abdominal stabilization HEP 02/01/19: continue to progress HEP 02/25/19: goal progress 03/30/19: goal progress; continued need to modify 04/27/19: goal met STG Duration goal met Group Home Goal (LTG) Patient able to roll or reposition in bed with minimal to no pain 03/14/20: mostly met 04/01/20: 90% met, as long as activates core and pays attention to technique LTG Duration goal met Oswestry disability index score Impairment Activity intolerance, Oswestry disability index score 62% Group Home Goal (LTG) decrease score to no greater than 30% to help patient resume prior level of function 03/14/20: good goal progress 04/01/20: 36% 05/09/20: 42% LTG Duration 05/14/20 LBP with radicular symptoms Impairment LBP with radiucular symptoms Short Term Goal (STG) Decrease pain to no greater than 4/10 04/01/20: mostly met, occasional flares to 6-8/10. 05/09/20: 10 STG Duration goal met Recreation Program Coordinator Goal (LTG) Decrease pain to no greater than 2/10 04/01/20: goal progress: patient reports occasional times of minimal to no pain 05/09/20: / (5/10 right great toe) LTG Duration partially met Two Impairment Patient unable to use alternating pattern to ambulate on stairs Short Term Goal (STG) Patient able to ascend and descend 4 stairs with alternating pattern with minimal to no pain 03/14/20: goal met STG Duration MET Group Home Goal (LTG) Patient able to ascend and descend standard (6) stairs with alternating pattern with minimal to no pain 05/09/20: goal mostly met LTG Duration goal mostly met Physical Therapy Plan Frequency and Duration Frequency of Treatment Every Other Week Duration of Treatment 8 Plan of Care Start Date 05/09/20 Plan of Care End Date 07/09/20 Therapeutic Interventions Therapeutic Interventions Home Exercise Program,Manual Therapy,Neuromuscular Re- education,Patient/Caregiver Education,Self-Care/Home Management,Soft Tissue Mobilization,Taping, Therapeutic Activities, Therapeutic Exercises Modalities Cold Pack/Ice Massage,Electric Stimulation,Hot Packs, Infrared Therapy,Ultrasound Next Visit Focus/Plan Next Note Type Re-Evaluation Next Visit Plan Patient has made good progress with PT, not fully achieved goals, but feel lack of medication and inability to do aquatic exercise during the pandemic had big impact on patient status. She demonstrates good understanding of her HEP and self-care, and plans to return to aquatic exercise after getting second Covid shot. She has obtained a cushion for offloading her coccyx and has good tolerance for sitting with the use of the cushion. Agreed to patient continuing with self-care, HEP, aquatic exercise and seeing what effect resuming medication all has on her before returning for re-evaluation in PT to determine if any further PT indicated.
--- NOTE | 2020-06-25 13:00 | PT.OTN ---
Current Diagnoses Other chronic pain (06/25/20) Pain in right hip (06/25/20) Spinal stenosis, lumbar region without neurogenic claudication (06/25/20) Spinal stenosis, lumbar region with neurogenic claudication (06/25/20) Low back pain (06/25/20) Other muscle spasm (06/25/20) Difficulty in walking, not elsewhere classified (06/25/20) Weakness (06/25/20) Physical Therapy Treatment Note PT-OP-A Visit Information Start: 02/14/20 08:08 Freq: Status: Active Protocol: Document 06/25/20 10:33 [facility] (Rec: 06/25/20 11:47 [facility] [id number]) Out-Patient Physical Therapy Visit Information Visit Information Visit Type Re-Evaluation Visit Note 03/17 Visit Start Time 10:32 Visit Stop Time 11:25 Total Visit Minutes 53 Visit Number 13 Number of AGRICULTURAL LABOR CAMP MANAGER Visits 0 PT-OP-B Current Condition Start: 02/14/20 08:08 Freq: Status: Active Protocol: Document 06/25/20 10:33 [facility] (Rec: 06/25/20 11:47 [facility] [id number]) Current Condition History of Current Condition Current Complaints R LB History of Current Condition 06/25- Pt reports she has hip pain since May. SHe had a Xray and MD said hip is fine. Hip pain started clearing up until yesterday when she had a little bit after painting 4 days. Pt MD recommended that she sees a surgeon d/t concern for cauda equina. She has a video conference w/MD neurosurgeon. Her current MD thinks it is stenosis at L3-4. Pt has been doing her exercises from prior therapy daily and her vocational rehabilitation specialist MD said he was amazed at how strong she is. Pt just saw Dr. Levin and she just had an injection on R side d/t nerve impingement and her charcot foot is getting worse. Pt is unsure if she needs to be here but her vocational rehabilitation specialist wants her to do PT again. She is back on arthritis medicine d/t hands swelling and ached when she went off it. They still don't know if its sero negative RA or something else. Back on prednisone and another appointment. Pt cannot walk more than a block d/t her foot pain. She cannot get in/out of the bath tub (has a jet tub). She tried the other day and had trouble getting out d/t stability at feet. She avoids heavy gardening anymore. She plants in pots instead. She cannot walk across grass without cane. Pt reports she is so afraid of falling and every day she feels like she almost falls especailly outside. Pt reports her exasterbation of back pain is much better since last bout of PT. Pt reports only a little aching in back & little pain in groin. Last night she had slight hip pain but last time before that she had hip pain was 7 days ago. from prior eval: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 States she got up from chair, felt excrutiating pain ( almost wrost pain ever had) in buttock left greater than right. States doctors think the pain coming from low back but she disagrees: I know what pain from my low back feels like. 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 Has been getting some better, can now sit, but pain persists and limits her activity. Has been seen in PT by this therapist previously and has been doing ther ex, ice, heat, using ball for self -massage. Reports hysicians wanting to refer patient to spinal surgeon due to MRI showing bulging disc at L34, but she refuses at this time. Pain worse with prolonged sitting on any surface. Because of pain can't ambulate on stairs with alternating pattern due to pain. Trying to walk. Hasn't been able to go the pool. Feels weak. Has been trying to change positions more frequently. Sleeps with a heating pad between her legs due to pubic pain. Has low back pain but states she feels more weak than painful in back. Also has peroneal tendonitis right ankle; was in a lace-up splint over past month, pain improved. Having insoles changed next week. Denies shooting pain down leg or any giving way of legs. Has EMG next week at due to persistent numbness right LE, across ankle into big toe that she has had since spinal surgery. Prior Treatments and Tests Mult bouts of PT Treatment Goals Patient/Caregiver Goals dec fear of falling PT-OP-C Subjective Start: 02/14/20 08:08 Freq: Status: Active Protocol: Document 06/25/20 10:33 [facility] (Rec: 06/25/20 11:47 [facility] [id number]) OP-PT Pain Assessment Location low back Pain Location Details R iliac crest region Intensity 2 Scale Used Numeric (0 - 10) Other Pain Aggravating Factors pt reports LBP/hip pain have not bothered her past week much PT-OP-G Mobility & Gait Start: 02/14/20 08:08 Freq: Status: Active Protocol: Document 06/25/20 10:33 [facility] (Rec: 06/25/20 11:47 [facility] [id number]) OP Gait Assessment Comments Gait Comments amb with dec push off and lat leaning with very slow speed Stair Climbing Evaluation Comments Stair Climbing Comments Step to w/R leading up w/B rails, step to down w/B rails w/R leading and turned sideways slightly PT-OP-H Neuro Start: 02/14/20 08:08 Freq: Status: Active Protocol: Document 02/14/20 11:13 [facility] (Rec: 02/14/20 11:56 [facility] [id number]) Sensation Evaluation Gross Sensation Gross Sensation Right LE Impaired Sensation Description Numbness Dermatome Impairments L5 PT-OP-J Posture/Palpation/Skin Start: 02/14/20 08:08 Freq: Status: Active Protocol: Document 06/25/20 10:33 [facility] (Rec: 06/25/20 11:47 [facility] [id number]) Posture Evaluation Saúl Postural Classification System Lumbar Protective Mechanism Left AP 1 Lumbar Protective Mechanism Right AP 0 Lumbar Protective Mechanism Left PA 2 Lumbar Protective Mechanism Right PA 0 PT-OP-K Range of Motion Start: 02/14/20 08:08 Freq: Status: Active Protocol: Document 02/14/20 11:13 [facility] (Rec: 02/14/20 11:56 [facility] [id number]) Lumbar Spine Range of Motion Lumbar Spine Active Comments mild to mod decrease all motions but reports minimal pain LB or buttock Hip Goniometric Range of Motion Hip right passive Flexion w/Knee Flexed 120 Straight Leg Raise 65 Extension 0 Internal Rotation 30 External Rotation 55 Left passive Flexion w/Knee Flexed 110 Straight Leg Raise 70 Extension 0 Internal Rotation 25 External Rotation 60 Right Active Straight Leg Raise 55 Left Active Straight Leg Raise 60 Hip ROM Limitations Hip ROM Limitations Soft Tissue Tightness,Muscle Weakness,Pain Knee Goniometric Range of Motion Knee gloria Knee ROM WFL Yes Ankle and Foot Goniometric Range of Motion Ankle and Foot Right Active Ankle/Foot ROM WFL No Dorsiflexion with Knee Flexed 8 Dorsiflexion with Knee Extended 4 Left Ankle/Foot ROM WFL No Dorsiflexion with Knee Flexed 5 Dorsiflexion with Knee Extended 3 PT-OP-L Special Tests Start: 02/14/20 08:08 Freq: Status: Active Protocol: Document 02/14/20 11:13 [facility] (Rec: 02/14/20 11:56 [facility] [id number]) Special Tests Lumbar Spine Special Tests Josh Test Results positive for muscle tightness Standing Flexion Test Results negative Slump Test Results negative gloria Stork Test Test Results unable to tolerate Straight Leg Raise Test Results positive only for muscle tightness Hip Special Tests Straight Leg Raise Test Results positive for muscle tightness only Trendelenberg Test Results positive for muscle weakness left Piriformis Test Results positive left PT-OP-M Strength Start: 02/14/20 08:08 Freq: Status: Active Protocol: Document 06/25/20 10:33 [facility] (Rec: 06/25/20 11:47 [facility] [id number]) Hip Strength Hip Manual Muscle Testing Left Flexion (L2) 4- Good- Extension (S1) 3+ Fair+ Abduction 4 Good Adduction 4- Good- External Rotation 4 Good Internal Rotation 4+ Good+ Right Flexion (L2) 4- Good- Extension (S1) 3+ Fair+ Abduction 4 Good Adduction 4 Good External Rotation 4- Good- Internal Rotation 4 Good Knee Strength Knee Manual Muscle Testing Right Flexion (S2) 4+ Good+ Extension (L3) 5 Normal Left Flexion (S2) 4+ Good+ Extension (L3) 5 Normal Ankle/Foot Strength Ankle and Foot Manual Muscle Testing Right Dorsiflexion (L4) 4- Good- Plantarflexion (S1) 4 Good Inversion 3+ Fair+ Eversion (S1) 4 Good Comments pain w/range Left Dorsiflexion (L4) 5 Normal Plantarflexion (S1) 5 Normal Inversion 5 Normal Eversion (S1) 5 Normal Comments seated PF testing PT-OP-Q Treatments Start: 02/14/20 08:08 Freq: Status: Active Protocol: Document 06/25/20 10:33 [facility] (Rec: 06/25/20 11:47 [facility] [id number]) Self-Care/Home Management Treatment Education Other Education Pt shown dermatome maps and discussed w/pt that pain may be d/t SI issues also as she used to wear SI belt with relief and location of pain being more on sup iliac crest region-discussed use of SI belt prn PT-OP-R Modalities Start: 02/14/20 08:08 Freq: Status: Active Protocol: Document 05/09/20 14:29 [facility] (Rec: 05/09/20 17:23 [facility] [id number]) Hot Pack/Cold Pack Treatment Hot Pack Location lumbosacral spine, right lateral quad and IT band Patient Position Hooklying Treatment Duration (minutes) 15 Patient Tolerance Good PT-OP-T Assessment and Plan Start: 02/14/20 08:08 Freq: Status: Active Protocol: Document 06/25/20 10:33 [facility] (Rec: 06/25/20 11:47 [facility] [id number]) Physical Therapy Assessment Rehab Potential Rehabilitation Potential Good Impairments Impairments Activity Tolerance,Balance, Functional Activities, Functional Mobility,Gait,Pain, Posture,Soft Tissue Mobility, Strength Goals Five Bull Chain Operator Goal (LTG) Pt will be able to step up/ down a curb confidently w/o outside support. LTG Duration 08/25/20 Four Impairment pain Bull Chain Operator Goal (LTG) Pt will be able to maintain inc activity with pain level at no greater than 2/10 for mult weeks at a time. LTG Duration 08/25/20 Three Impairment strength Short Term Goal (STG) Pt will be indep with HEP and have appropriate tools to cont at home STG Duration 07/25/20 Care Home Goal (LTG) Pt will improve hip MMT grade by at least 1 MMT in all planes to improve strength in order to improve ease of mobility LTG Duration 08/25/20 Two Impairment LPM Care Home Goal (LTG) Pt will show imrpoved core stability by scoring at least 3/5 on LPM in all planes in order to improve stability in yard LTG Duration 08/25/20 One Impairment balance Short Term Goal (STG) Pt will improve DGI score to at least 20 to show dec chance of falling. STG Duration 07/25/20 Bull Chain Operator Goal (LTG) pt will improve FGA score to at least 20 to show dec risk for falls LTG Duration 08/25/20 Assessment Summary Assessment Pt returns to PT per MD order for resuming PT for lumbar spine and R hip. Pt has noted improved R hip and back pain over the past week and has even been able to participate in painting her fence in a mix of seated and standing postition. She is most concerned regarding her fear of falling and her unsteadiness especially outside. pt would benefit from cont PT to work on improving functional mobility and dec fall risk without increasing pain. Physical Therapy Plan Frequency and Duration Frequency of Treatment 1-2x/week Duration of Treatment 2 months Plan of Care Start Date 06/25/20 Plan of Care End Date 08/25/20 Therapeutic Interventions Therapeutic Interventions Aquatic Therapy,Balance Training,Gait Training,Home Exercise Program,Joint Mobilizations,Manual Therapy, Neuromuscular Re-education, Patient/Caregiver Education, Self-Care/Home Management,Soft Tissue Mobilization,Taping, Therapeutic Activities, Therapeutic Exercises Modalities Cold Pack/Ice Massage,Electric Stimulation,Hot Packs, Infrared Therapy,Ultrasound Next Visit Focus/Plan Next Note Type Treatment Note Next Visit Plan Try foam surfaces and firm ground for balance exercises, work on ability/strength for ability to step up and over objects, review HEP
--- NOTE | 2020-06-27 09:17 | PT-OP ANOTE ---
Pt called re: no show and left message and informed of next scheduled appointment time.
--- NOTE | 2020-06-27 12:59 | PT.OTN ---
Current Diagnoses Other chronic pain (06/27/20) Pain in right hip (06/27/20) Spinal stenosis, lumbar region without neurogenic claudication (06/27/20) Spinal stenosis, lumbar region with neurogenic claudication (06/27/20) Low back pain (06/27/20) Other muscle spasm (06/27/20) Difficulty in walking, not elsewhere classified (06/27/20) Weakness (06/27/20) Physical Therapy Treatment Note PT-OP-A Visit Information Start: 02/14/20 08:08 Freq: Status: Active Protocol: Document 06/27/20 11:19 [facility] (Rec: 06/27/20 11:57 [facility] [id number]) Out-Patient Physical Therapy Visit Information Visit Information Visit Type Treatment Note Visit Start Time 11:15 Visit Stop Time 12:00 Total Visit Minutes 45 Visit Number 14 Number of OPTICAL LABORATORY TECHNICIAN Visits 0 Precautions Precautions LL4-S1 fusion ankle fusions PT-OP-B Current Condition Start: 02/14/20 08:08 Freq: Status: Active Protocol: Document 06/25/20 10:33 [facility] (Rec: 06/25/20 11:47 [facility] [id number]) Current Condition History of Current Condition Current Complaints R LB History of Current Condition 06/25- Pt reports she has hip pain since May. SHe had a Xray and MD said hip is fine. Hip pain started clearing up until yesterday when she had a little bit after painting 4 days. Pt MD recommended that she sees a surgeon d/t concern for cauda equina. She has a video conference w/MD neurosurgeon. Her current MD thinks it is stenosis at L3-4. Pt has been doing her exercises from prior therapy daily and her rehab rn MD said he was amazed at how strong she is. Pt just saw Dr. Levin and she just had an injection on R side d/t nerve impingement and her charcot foot is getting worse. Pt is unsure if she needs to be here but her rehab rn wants her to do PT again. She is back on arthritis medicine d/t hands swelling and ached when she went off it. They still don't know if its sero negative RA or something else. Back on prednisone and another appointment. Pt cannot walk more than a block d/t her foot pain. She cannot get in/out of the bath tub (has a jet tub). She tried the other day and had trouble getting out d/t stability at feet. She avoids heavy gardening anymore. She plants in pots instead. She cannot walk across grass without cane. Pt reports she is so afraid of falling and every day she feels like she almost falls especailly outside. Pt reports her exasterbation of back pain is much better since last bout of PT. Pt reports only a little aching in back & little pain in groin. Last night she had slight hip pain but last time before that she had hip pain was 7 days ago. from prior eval: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 States she got up from chair, felt excrutiating pain ( almost wrost pain ever had) in buttock left greater than right. States doctors think the pain coming from low back but she disagrees: I know what pain from my low back feels like. 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 Has been getting some better, can now sit, but pain persists and limits her activity. Has been seen in PT by this therapist previously and has been doing ther ex, ice, heat, using ball for self -massage. Reports hysicians wanting to refer patient to spinal surgeon due to MRI showing bulging disc at L34, but she refuses at this time. Pain worse with prolonged sitting on any surface. Because of pain can't ambulate on stairs with alternating pattern due to pain. Trying to walk. Hasn't been able to go the pool. Feels weak. Has been trying to change positions more frequently. Sleeps with a heating pad between her legs due to pubic pain. Has low back pain but states she feels more weak than painful in back. Also has peroneal tendonitis right ankle; was in a lace-up splint over past month, pain improved. Having insoles changed next week. Denies shooting pain down leg or any giving way of legs. Has EMG next week at due to persistent numbness right LE, across ankle into big toe that she has had since spinal surgery. Prior Treatments and Tests Mult bouts of PT Treatment Goals Patient/Caregiver Goals dec fear of falling PT-OP-C Subjective Start: 02/14/20 08:08 Freq: Status: Active Protocol: Document 06/27/20 11:19 [facility] (Rec: 06/27/20 11:57 [facility] [id number]) OP-PT Subjective Patient Comments Patient Comments Consult telemedicine tomorrow with neurosurgeon Dr. Parr, her physician concerned about Cauda Equina syndrome developing. Saw Dr. Campbell who injected her right ankle last week, nothing else can be done. Will be going to the pool after July 20 when has full vaccine immunity. Needs to work on her balance. Sees new punch box tender in 2 weeks. PT-OP-G Mobility & Gait Start: 02/14/20 08:08 Freq: Status: Active Protocol: Document 06/25/20 10:33 [facility] (Rec: 06/25/20 11:47 [facility] [id number]) OP Gait Assessment Comments Gait Comments amb with dec push off and lat leaning with very slow speed Stair Climbing Evaluation Comments Stair Climbing Comments Step to w/R leading up w/B rails, step to down w/B rails w/R leading and turned sideways slightly PT-OP-H Neuro Start: 02/14/20 08:08 Freq: Status: Active Protocol: Document 02/14/20 11:13 [facility] (Rec: 02/14/20 11:56 [facility] [id number]) Sensation Evaluation Gross Sensation Gross Sensation Right LE Impaired Sensation Description Numbness Dermatome Impairments L5 PT-OP-J Posture/Palpation/Skin Start: 02/14/20 08:08 Freq: Status: Active Protocol: Document 06/25/20 10:33 [facility] (Rec: 06/25/20 11:47 [facility] [id number]) Posture Evaluation Saúl Postural Classification System Lumbar Protective Mechanism Left AP 1 Lumbar Protective Mechanism Right AP 0 Lumbar Protective Mechanism Left PA 2 Lumbar Protective Mechanism Right PA 0 PT-OP-K Range of Motion Start: 02/14/20 08:08 Freq: Status: Active Protocol: Document 02/14/20 11:13 [facility] (Rec: 02/14/20 11:56 [facility] [id number]) Lumbar Spine Range of Motion Lumbar Spine Active Comments mild to mod decrease all motions but reports minimal pain LB or buttock Hip Goniometric Range of Motion Hip right passive Flexion w/Knee Flexed 120 Straight Leg Raise 65 Extension 0 Internal Rotation 30 External Rotation 55 Left passive Flexion w/Knee Flexed 110 Straight Leg Raise 70 Extension 0 Internal Rotation 25 External Rotation 60 Right Active Straight Leg Raise 55 Left Active Straight Leg Raise 60 Hip ROM Limitations Hip ROM Limitations Soft Tissue Tightness,Muscle Weakness,Pain Knee Goniometric Range of Motion Knee gloria Knee ROM WFL Yes Ankle and Foot Goniometric Range of Motion Ankle and Foot Right Active Ankle/Foot ROM WFL No Dorsiflexion with Knee Flexed 8 Dorsiflexion with Knee Extended 4 Left Ankle/Foot ROM WFL No Dorsiflexion with Knee Flexed 5 Dorsiflexion with Knee Extended 3 PT-OP-L Special Tests Start: 02/14/20 08:08 Freq: Status: Active Protocol: Document 02/14/20 11:13 [facility] (Rec: 02/14/20 11:56 [facility] [id number]) Special Tests Lumbar Spine Special Tests Josh Test Results positive for muscle tightness Standing Flexion Test Results negative Slump Test Results negative gloria Stork Test Test Results unable to tolerate Straight Leg Raise Test Results positive only for muscle tightness Hip Special Tests Straight Leg Raise Test Results positive for muscle tightness only Trendelenberg Test Results positive for muscle weakness left Piriformis Test Results positive left PT-OP-M Strength Start: 02/14/20 08:08 Freq: Status: Active Protocol: Document 06/25/20 10:33 [facility] (Rec: 06/25/20 11:47 [facility] [id number]) Hip Strength Hip Manual Muscle Testing Left Flexion (L2) 4- Good- Extension (S1) 3+ Fair+ Abduction 4 Good Adduction 4- Good- External Rotation 4 Good Internal Rotation 4+ Good+ Right Flexion (L2) 4- Good- Extension (S1) 3+ Fair+ Abduction 4 Good Adduction 4 Good External Rotation 4- Good- Internal Rotation 4 Good Knee Strength Knee Manual Muscle Testing Right Flexion (S2) 4+ Good+ Extension (L3) 5 Normal Left Flexion (S2) 4+ Good+ Extension (L3) 5 Normal Ankle/Foot Strength Ankle and Foot Manual Muscle Testing Right Dorsiflexion (L4) 4- Good- Plantarflexion (S1) 4 Good Inversion 3+ Fair+ Eversion (S1) 4 Good Comments pain w/range Left Dorsiflexion (L4) 5 Normal Plantarflexion (S1) 5 Normal Inversion 5 Normal Eversion (S1) 5 Normal Comments seated PF testing PT-OP-Q Treatments Start: 02/14/20 08:08 Freq: Status: Active Protocol: Document 06/27/20 11:19 [facility] (Rec: 06/27/20 11:57 [facility] [id number]) Cardio Equipment Recumbent Stepper (Sci-Fit) Duration (Minutes) 10 Resistance 1.5 Seat Position 11 Other verbal and manual cues for LE alignment, core activation Neuro Re-Education Treatment Balance Activities hurdles Details forward,bck,side Comments low hurdles(1) foam stand Details EO, EC Comments green foam, blue foam Self-Care/Home Management Treatment Education Patient Education Fall Risk,Home Exercise Program,Safety PT-OP-R Modalities Start: 02/14/20 08:08 Freq: Status: Active Protocol: Document 05/09/20 14:29 [facility] (Rec: 05/09/20 17:23 [facility] [id number]) Hot Pack/Cold Pack Treatment Hot Pack Location lumbosacral spine, right lateral quad and IT band Patient Position Hooklying Treatment Duration (minutes) 15 Patient Tolerance Good PT-OP-T Assessment and Plan Start: 02/14/20 08:08 Freq: Status: Active Protocol: Document 06/27/20 11:19 [facility] (Rec: 06/27/20 11:57 [facility] [id number]) Physical Therapy Assessment Goals Five Double Bass Player Goal (LTG) Pt will be able to step up/ down a curb confidently w/o outside support. LTG Duration 08/25/20 Four Impairment pain Halfway Goal (LTG) Pt will be able to maintain inc activity with pain level at no greater than 2/10 for mult weeks at a time. LTG Duration 08/25/20 Three Impairment strength Short Term Goal (STG) Pt will be indep with HEP and have appropriate tools to cont at home STG Duration 07/25/20 Double Bass Player Goal (LTG) Pt will improve hip MMT grade by at least 1 MMT in all planes to improve strength in order to improve ease of mobility LTG Duration 08/25/20 Two Impairment LPM Double Bass Player Goal (LTG) Pt will show imrpoved core stability by scoring at least 3/5 on LPM in all planes in order to improve stability in yard LTG Duration 08/25/20 One Impairment balance Short Term Goal (STG) Pt will improve DGI score to at least 20 to show dec chance of falling. STG Duration 07/25/20 Double Bass Player Goal (LTG) pt will improve FGA score to at least 20 to show dec risk for falls LTG Duration 08/25/20 Assessment Summary Assessment Patient has fear of falling, feels uinsteady when trying to step over even very short object. Fair tolerance for standing on foam, tolerated blue foam better than more firm due to foot pain. Cautioned patient to verbalize pain if not tolerating balance activities. Will want to mix in seated balance activities, possibly on ball or dynadisc. Physical Therapy Plan Frequency and Duration Frequency of Treatment 1-2x/week Duration of Treatment 2 months Plan of Care Start Date 06/25/20 Plan of Care End Date 08/25/20 Therapeutic Interventions Therapeutic Interventions Aquatic Therapy,Balance Training,Gait Training,Home Exercise Program,Joint Mobilizations,Manual Therapy, Neuromuscular Re-education, Patient/Caregiver Education, Self-Care/Home Management,Soft Tissue Mobilization,Taping, Therapeutic Activities, Therapeutic Exercises Modalities Cold Pack/Ice Massage,Electric Stimulation,Hot Packs, Infrared Therapy,Ultrasound Next Visit Focus/Plan Next Note Type Treatment Note Next Visit Plan ASsess response to today's session, try Dynadisc for balance and core work.
--- NOTE | 2020-07-02 11:11 | PT.OTN ---
Current Diagnoses Other chronic pain (07/02/20) Pain in right hip (07/02/20) Spinal stenosis, lumbar region without neurogenic claudication (07/02/20) Spinal stenosis, lumbar region with neurogenic claudication (07/02/20) Low back pain (07/02/20) Other muscle spasm (07/02/20) Difficulty in walking, not elsewhere classified (07/02/20) Weakness (07/02/20) Physical Therapy Treatment Note PT-OP-A Visit Information Start: 02/14/20 08:08 Freq: Status: Active Protocol: Document 07/02/20 08:11 [facility] (Rec: 07/02/20 09:02 [facility] [id number]) Out-Patient Physical Therapy Visit Information Visit Information Visit Type Treatment Note Visit Start Time 08:15 Visit Stop Time 09:15 Total Visit Minutes 60 Visit Number 15 Number of GLASS [employer]PER Visits 0 Precautions Precautions LL4-S1 fusion ankle fusions PT-OP-B Current Condition Start: 02/14/20 08:08 Freq: Status: Active Protocol: Document 07/02/20 08:11 [facility] (Rec: 07/02/20 09:02 [facility] [id number]) Current Condition History of Current Condition Current Complaints R LB History of Current Condition 06/25- Pt reports she has hip pain since May. SHe had a Xray and MD said hip is fine. Hip pain started clearing up until yesterday when she had a little bit after painting 4 days. Pt MD recommended that she sees a surgeon d/t concern for cauda equina. She has a video conference w/MD neurosurgeon. Her current MD thinks it is stenosis at L3-4. Pt has been doing her exercises from prior therapy daily and her vocational rehab consultant MD said he was amazed at how strong she is. Pt just saw Dr. Levin and she just had an injection on R side d/t nerve impingement and her charcot foot is getting worse. Pt is unsure if she needs to be here but her vocational rehab consultant wants her to do PT again. She is back on arthritis medicine d/t hands swelling and ached when she went off it. They still don't know if its sero negative RA or something else. Back on prednisone and another appointment. Pt cannot walk more than a block d/t her foot pain. She cannot get in/out of the bath tub (has a jet tub). She tried the other day and had trouble getting out d/t stability at feet. She avoids heavy gardening anymore. She plants in pots instead. She cannot walk across grass without cane. Pt reports she is so afraid of falling and every day she feels like she almost falls especailly outside. Pt reports her exasterbation of back pain is much better since last bout of PT. Pt reports only a little aching in back & little pain in groin. Last night she had slight hip pain but last time before that she had hip pain was 7 days ago. from prior eval: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 States she got up from chair, felt excrutiating pain ( almost wrost pain ever had) in buttock left greater than right. States doctors think the pain coming from low back but she disagrees: I know what pain from my low back feels like. 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 Has been getting some better, can now sit, but pain persists and limits her activity. Has been seen in PT by this therapist previously and has been doing ther ex, ice, heat, using ball for self -massage. Reports hysicians wanting to refer patient to spinal surgeon due to MRI showing bulging disc at L34, but she refuses at this time. Pain worse with prolonged sitting on any surface. Because of pain can't ambulate on stairs with alternating pattern due to pain. Trying to walk. Hasn't been able to go the pool. Feels weak. Has been trying to change positions more frequently. Sleeps with a heating pad between her legs due to pubic pain. Has low back pain but states she feels more weak than painful in back. Also has peroneal tendonitis right ankle; was in a lace-up splint over past month, pain improved. Having insoles changed next week. Denies shooting pain down leg or any giving way of legs. Has EMG next week at due to persistent numbness right LE, across ankle into big toe that she has had since spinal surgery. Prior Treatments and Tests Mult bouts of PT PT-OP-C Subjective Start: 02/14/20 08:08 Freq: Status: Active Protocol: Document 07/02/20 08:11 [facility] (Rec: 07/02/20 09:02 [facility] [id number]) OP-PT Subjective Patient Comments Patient Comments States Dr. Parr said she is a surgical candidate to L3-L4 minimally invasive procedure. Reports he said his right LE numbness is due to L% irritation during surgery. MRI ordered. Reports she felt ok after last PT session, hurting today, states she thinks she might be doing something wrong with her exercises that is irritating her right side/hip. Tried stepping over yardstick at home. Has had a lot of ankle pain, seeing new base ply hand soon. OP-PT Pain Assessment Location low back Pain Location Details right waist and hip/buttock Intensity 4 Scale Used Numeric (0 - 10) Other Pain Aggravating Factors increased pain over last weekend PT-OP-G Mobility & Gait Start: 02/14/20 08:08 Freq: Status: Active Protocol: Document 06/25/20 10:33 [facility] (Rec: 06/25/20 11:47 [facility] [id number]) OP Gait Assessment Comments Gait Comments amb with dec push off and lat leaning with very slow speed Stair Climbing Evaluation Comments Stair Climbing Comments Step to w/R leading up w/B rails, step to down w/B rails w/R leading and turned sideways slightly PT-OP-H Neuro Start: 02/14/20 08:08 Freq: Status: Active Protocol: Document 02/14/20 11:13 [facility] (Rec: 02/14/20 11:56 [facility] [id number]) Sensation Evaluation Gross Sensation Gross Sensation Right LE Impaired Sensation Description Numbness Dermatome Impairments L5 PT-OP-J Posture/Palpation/Skin Start: 02/14/20 08:08 Freq: Status: Active Protocol: Document 06/25/20 10:33 [facility] (Rec: 06/25/20 11:47 [facility] [id number]) Posture Evaluation Saúl Postural Classification System Lumbar Protective Mechanism Left AP 1 Lumbar Protective Mechanism Right AP 0 Lumbar Protective Mechanism Left PA 2 Lumbar Protective Mechanism Right PA 0 PT-OP-K Range of Motion Start: 02/14/20 08:08 Freq: Status: Active Protocol: Document 02/14/20 11:13 [facility] (Rec: 02/14/20 11:56 [facility] [id number]) Lumbar Spine Range of Motion Lumbar Spine Active Comments mild to mod decrease all motions but reports minimal pain LB or buttock Hip Goniometric Range of Motion Hip right passive Flexion w/Knee Flexed 120 Straight Leg Raise 65 Extension 0 Internal Rotation 30 External Rotation 55 Left passive Flexion w/Knee Flexed 110 Straight Leg Raise 70 Extension 0 Internal Rotation 25 External Rotation 60 Right Active Straight Leg Raise 55 Left Active Straight Leg Raise 60 Hip ROM Limitations Hip ROM Limitations Soft Tissue Tightness,Muscle Weakness,Pain Knee Goniometric Range of Motion Knee gloria Knee ROM WFL Yes Ankle and Foot Goniometric Range of Motion Ankle and Foot Right Active Ankle/Foot ROM WFL No Dorsiflexion with Knee Flexed 8 Dorsiflexion with Knee Extended 4 Left Ankle/Foot ROM WFL No Dorsiflexion with Knee Flexed 5 Dorsiflexion with Knee Extended 3 PT-OP-L Special Tests Start: 02/14/20 08:08 Freq: Status: Active Protocol: Document 02/14/20 11:13 [facility] (Rec: 02/14/20 11:56 [facility] [id number]) Special Tests Lumbar Spine Special Tests Josh Test Results positive for muscle tightness Standing Flexion Test Results negative Slump Test Results negative gloria Stork Test Test Results unable to tolerate Straight Leg Raise Test Results positive only for muscle tightness Hip Special Tests Straight Leg Raise Test Results positive for muscle tightness only Trendelenberg Test Results positive for muscle weakness left Piriformis Test Results positive left PT-OP-M Strength Start: 02/14/20 08:08 Freq: Status: Active Protocol: Document 06/25/20 10:33 [facility] (Rec: 06/25/20 11:47 [facility] [id number]) Hip Strength Hip Manual Muscle Testing Left Flexion (L2) 4- Good- Extension (S1) 3+ Fair+ Abduction 4 Good Adduction 4- Good- External Rotation 4 Good Internal Rotation 4+ Good+ Right Flexion (L2) 4- Good- Extension (S1) 3+ Fair+ Abduction 4 Good Adduction 4 Good External Rotation 4- Good- Internal Rotation 4 Good Knee Strength Knee Manual Muscle Testing Right Flexion (S2) 4+ Good+ Extension (L3) 5 Normal Left Flexion (S2) 4+ Good+ Extension (L3) 5 Normal Ankle/Foot Strength Ankle and Foot Manual Muscle Testing Right Dorsiflexion (L4) 4- Good- Plantarflexion (S1) 4 Good Inversion 3+ Fair+ Eversion (S1) 4 Good Comments pain w/range Left Dorsiflexion (L4) 5 Normal Plantarflexion (S1) 5 Normal Inversion 5 Normal Eversion (S1) 5 Normal Comments seated PF testing PT-OP-Q Treatments Start: 02/14/20 08:08 Freq: Status: Active Protocol: Document 07/02/20 08:11 [facility] (Rec: 07/02/20 09:02 [facility] [id number]) Cardio Equipment Recumbent Stepper (Sci-Fit) Duration (Minutes) 10 Resistance 1.5 Seat Position 11 Other verbal and manual cues for LE alignment, core activation Therapeutic Exercises Supine Exercises IT band stretch Supine Exercise Name knee straight Reps/Minutes 2x30 Comments strap HS stretch Side bilateral Reps/Minutes 10 Comments strap Sitting Exercises dynadisc Sitting Exercise Name balance EO, EC, leg lifts, LAQ Reps/Minutes 7' Comments emphasis on core stab. Standing Exercises seated mini crunch Reps/Minutes 5x Gait Training Gait Activity gait with straight cane Description level, Device Used straight cane Surface firm Comments use in left hand for decreased stress to right side Neuro Re-Education Treatment Balance Activities foam stand Details EO, EC Comments , blue foam: staggered, wide TRANG Self-Care/Home Management Treatment Education Patient Education Home Exercise Program Other Education Sissel or Dynadisc, use of yoga strap for stretches, back off intensity or use support with supine groin and IT band stretch cane in left vs right hand PT-OP-R Modalities Start: 02/14/20 08:08 Freq: Status: Active Protocol: Document 05/09/20 14:29 [facility] (Rec: 05/09/20 17:23 [facility] [id number]) Hot Pack/Cold Pack Treatment Hot Pack Location lumbosacral spine, right lateral quad and IT band Patient Position Hooklying Treatment Duration (minutes) 15 Patient Tolerance Good PT-OP-T Assessment and Plan Start: 02/14/20 08:08 Freq: Status: Active Protocol: Document 07/02/20 08:11 [facility] (Rec: 07/02/20 09:02 [facility] [id number]) Physical Therapy Assessment Goals Five Jail Goal (LTG) Pt will be able to step up/ down a curb confidently w/o outside support. LTG Duration 08/25/20 Four Impairment pain [employer] Goal (LTG) Pt will be able to maintain inc activity with pain level at no greater than 2/10 for mult weeks at a time. LTG Duration 08/25/20 Three Impairment strength Short Term Goal (STG) Pt will be indep with HEP and have appropriate tools to cont at home STG Duration 07/25/20 [employer] Goal (LTG) Pt will improve hip MMT grade by at least 1 MMT in all planes to improve strength in order to improve ease of mobility LTG Duration 08/25/20 Two Impairment LPM Jail Goal (LTG) Pt will show imrpoved core stability by scoring at least 3/5 on LPM in all planes in order to improve stability in yard LTG Duration 08/25/20 One Impairment balance Short Term Goal (STG) Pt will improve DGI score to at least 20 to show dec chance of falling. STG Duration 07/25/20 Jail Goal (LTG) pt will improve FGA score to at least 20 to show dec risk for falls LTG Duration 08/25/20 Assessment Summary Assessment Appears supine IT band stretch too agressive at this time, patient instructed to back off that stretch, possibly have support of wall or couch. Patient demonstrated good understanding of modification and alternatives in sitting or using support. Patient also instructed to use cane in left hand instead of right to decrease stress to right hip. Dynadisc safe way to challenge core in sitting vs prior use of therapy ball which can be unsafe for patient due to prior fall. Physical Therapy Plan Frequency and Duration Frequency of Treatment 1-2x/week Duration of Treatment 2 months Plan of Care Start Date 06/25/20 Plan of Care End Date 08/25/20 Therapeutic Interventions Therapeutic Interventions Aquatic Therapy,Balance Training,Gait Training,Home Exercise Program,Joint Mobilizations,Manual Therapy, Neuromuscular Re-education, Patient/Caregiver Education, Self-Care/Home Management,Soft Tissue Mobilization,Taping, Therapeutic Activities, Therapeutic Exercises Modalities Cold Pack/Ice Massage,Electric Stimulation,Hot Packs, Infrared Therapy,Ultrasound Next Visit Focus/Plan Next Note Type Treatment Note
--- NOTE | 2020-07-04 16:02 | PT.OTN ---
Current Diagnoses Other chronic pain (07/04/20) Pain in right hip (07/04/20) Spinal stenosis, lumbar region without neurogenic claudication (07/04/20) Spinal stenosis, lumbar region with neurogenic claudication (07/04/20) Low back pain (07/04/20) Other muscle spasm (07/04/20) Difficulty in walking, not elsewhere classified (07/04/20) Weakness (07/04/20) Physical Therapy Treatment Note PT-OP-A Visit Information Start: 02/14/20 08:08 Freq: Status: Active Protocol: Document 07/04/20 15:19 [facility] (Rec: 07/04/20 16:02 [facility] [id number]) Out-Patient Physical Therapy Visit Information Visit Information Visit Type Treatment Note Visit Start Time 15:18 Visit Stop Time 16:08 Total Visit Minutes 50 Visit Number 16 Number of PLUG GROWER Visits 0 PT-OP-B Current Condition Start: 02/14/20 08:08 Freq: Status: Active Protocol: Document 07/02/20 08:11 SAK (Rec: 07/02/20 09:02 SAK [id number]) Current Condition History of Current Condition Current Complaints R LB History of Current Condition 06/25- Pt reports she has hip pain since May. SHe had a Xray and MD said hip is fine. Hip pain started clearing up until yesterday when she had a little bit after painting 4 days. Pt MD recommended that she sees a surgeon d/t concern for cauda equina. She has a video conference w/MD neurosurgeon. Her current MD thinks it is stenosis at L3-4. Pt has been doing her exercises from prior therapy daily and her security assurance specialist MD said he was amazed at how strong she is. Pt just saw Dr. Levin and she just had an injection on R side d/t nerve impingement and her charcot foot is getting worse. Pt is unsure if she needs to be here but her security assurance specialist wants her to do PT again. She is back on arthritis medicine d/t hands swelling and ached when she went off it. They still don't know if its sero negative RA or something else. Back on prednisone and another appointment. Pt cannot walk more than a block d/t her foot pain. She cannot get in/out of the bath tub (has a jet tub). She tried the other day and had trouble getting out d/t stability at feet. She avoids heavy gardening anymore. She plants in pots instead. She cannot walk across grass without cane. Pt reports she is so afraid of falling and every day she feels like she almost falls especailly outside. Pt reports her exasterbation of back pain is much better since last bout of PT. Pt reports only a little aching in back & little pain in groin. Last night she had slight hip pain but last time before that she had hip pain was 7 days ago. from prior eval: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 States she got up from chair, felt excrutiating pain ( almost wrost pain ever had) in buttock left greater than right. States doctors think the pain coming from low back but she disagrees: I know what pain from my low back feels like. 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 Has been getting some better, can now sit, but pain persists and limits her activity. Has been seen in PT by this therapist previously and has been doing ther ex, ice, heat, using ball for self -massage. Reports hysicians wanting to refer patient to spinal surgeon due to MRI showing bulging disc at L34, but she refuses at this time. Pain worse with prolonged sitting on any surface. Because of pain can't ambulate on stairs with alternating pattern due to pain. Trying to walk. Hasn't been able to go the pool. Feels weak. Has been trying to change positions more frequently. Sleeps with a heating pad between her legs due to pubic pain. Has low back pain but states she feels more weak than painful in back. Also has peroneal tendonitis right ankle; was in a lace-up splint over past month, pain improved. Having insoles changed next week. Denies shooting pain down leg or any giving way of legs. Has EMG next week at due to persistent numbness right LE, across ankle into big toe that she has had since spinal surgery. Prior Treatments and Tests Mult bouts of PT PT-OP-C Subjective Start: 02/14/20 08:08 Freq: Status: Active Protocol: Document 07/04/20 15:19 [facility] (Rec: 07/04/20 16:02 [facility] [id number]) OP-PT Subjective Patient Comments Patient Comments Pt reports he had a rough night last night d/t neuropathy. Notes she was painting all afternoon and feels okay. Pt reports she stopped the stretches and feels better w/R hip. Pt saw Dr. Levin for R ankle pain. She got an injection and that helped. She told her that her entire foot has collapsed . PT-OP-G Mobility & Gait Start: 02/14/20 08:08 Freq: Status: Active Protocol: Document 06/25/20 10:33 [facility] (Rec: 06/25/20 11:47 [facility] [id number]) OP Gait Assessment Comments Gait Comments amb with dec push off and lat leaning with very slow speed Stair Climbing Evaluation Comments Stair Climbing Comments Step to w/R leading up w/B rails, step to down w/B rails w/R leading and turned sideways slightly PT-OP-H Neuro Start: 02/14/20 08:08 Freq: Status: Active Protocol: Document 02/14/20 11:13 [facility] (Rec: 02/14/20 11:56 [facility] [id number]) Sensation Evaluation Gross Sensation Gross Sensation Right LE Impaired Sensation Description Numbness Dermatome Impairments L5 PT-OP-J Posture/Palpation/Skin Start: 02/14/20 08:08 Freq: Status: Active Protocol: Document 06/25/20 10:33 [facility] (Rec: 06/25/20 11:47 [facility] [id number]) Posture Evaluation Saúl Postural Classification System Lumbar Protective Mechanism Left AP 1 Lumbar Protective Mechanism Right AP 0 Lumbar Protective Mechanism Left PA 2 Lumbar Protective Mechanism Right PA 0 PT-OP-K Range of Motion Start: 02/14/20 08:08 Freq: Status: Active Protocol: Document 02/14/20 11:13 SAK (Rec: 02/14/20 11:56 [facility] [id number]) Lumbar Spine Range of Motion Lumbar Spine Active Comments mild to mod decrease all motions but reports minimal pain LB or buttock Hip Goniometric Range of Motion Hip right passive Flexion w/Knee Flexed 120 Straight Leg Raise 65 Extension 0 Internal Rotation 30 External Rotation 55 Left passive Flexion w/Knee Flexed 110 Straight Leg Raise 70 Extension 0 Internal Rotation 25 External Rotation 60 Right Active Straight Leg Raise 55 Left Active Straight Leg Raise 60 Hip ROM Limitations Hip ROM Limitations Soft Tissue Tightness,Muscle Weakness,Pain Knee Goniometric Range of Motion Knee gloria Knee ROM WFL Yes Ankle and Foot Goniometric Range of Motion Ankle and Foot Right Active Ankle/Foot ROM WFL No Dorsiflexion with Knee Flexed 8 Dorsiflexion with Knee Extended 4 Left Ankle/Foot ROM WFL No Dorsiflexion with Knee Flexed 5 Dorsiflexion with Knee Extended 3 PT-OP-L Special Tests Start: 02/14/20 08:08 Freq: Status: Active Protocol: Document 02/14/20 11:13 [facility] (Rec: 02/14/20 11:56 [facility] [id number]) Special Tests Lumbar Spine Special Tests Josh Test Results positive for muscle tightness Standing Flexion Test Results negative Slump Test Results negative gloria Stork Test Test Results unable to tolerate Straight Leg Raise Test Results positive only for muscle tightness Hip Special Tests Straight Leg Raise Test Results positive for muscle tightness only Trendelenberg Test Results positive for muscle weakness left Piriformis Test Results positive left PT-OP-M Strength Start: 02/14/20 08:08 Freq: Status: Active Protocol: Document 06/25/20 10:33 [facility] (Rec: 06/25/20 11:47 [facility] [id number]) Hip Strength Hip Manual Muscle Testing Left Flexion (L2) 4- Good- Extension (S1) 3+ Fair+ Abduction 4 Good Adduction 4- Good- External Rotation 4 Good Internal Rotation 4+ Good+ Right Flexion (L2) 4- Good- Extension (S1) 3+ Fair+ Abduction 4 Good Adduction 4 Good External Rotation 4- Good- Internal Rotation 4 Good Knee Strength Knee Manual Muscle Testing Right Flexion (S2) 4+ Good+ Extension (L3) 5 Normal Left Flexion (S2) 4+ Good+ Extension (L3) 5 Normal Ankle/Foot Strength Ankle and Foot Manual Muscle Testing Right Dorsiflexion (L4) 4- Good- Plantarflexion (S1) 4 Good Inversion 3+ Fair+ Eversion (S1) 4 Good Comments pain w/range Left Dorsiflexion (L4) 5 Normal Plantarflexion (S1) 5 Normal Inversion 5 Normal Eversion (S1) 5 Normal Comments seated PF testing PT-OP-Q Treatments Start: 02/14/20 08:08 Freq: Status: Active Protocol: Document 07/04/20 15:19 [facility] (Rec: 07/04/20 16:02 [facility] [id number]) Cardio Equipment Recumbent Elliptical (Biodex) Duration (Minutes) 10 Resistance 1 (2 for 2 min) Seat Position 7 Gym Equipment Therapeutic Ball supine Ball Size/Color 55cm Reps/Duration 15 ea Comments 1. bridge w/ball under lower leg 2. knee flex/ext w/core focus Therapeutic Exercises Sitting Exercises dynadisc Sitting Exercise Name balance EO, EC, leg lifts, LAQ ,pelvic circles B Reps/Minutes 8' Comments emphasis on core stab. 4 Sitting Exercise Name hip hinge reverse sit up Reps/Minutes 8 Neuro Re-Education Treatment Balance Activities toe taps Details 12 in step Reps/Duration 8B hurdles Comments 1. fwd over hurdles (1in) 6 hurdles x6 2. fwd over 2 one in spread about 4 ft x4 3. over 1 nirali full size x8 foam stand Details EO, EC Comments , blue foam: staggered, wide TRANG PT-OP-R Modalities Start: 02/14/20 08:08 Freq: Status: Active Protocol: Document 07/04/20 15:19 [facility] (Rec: 07/04/20 16:02 [facility] [id number]) Hot Pack/Cold Pack Treatment Cold Pack Location R hip/LB Patient Position Sidelying Treatment Duration (minutes) 10 PT-OP-T Assessment and Plan Start: 02/14/20 08:08 Freq: Status: Active Protocol: Document 07/04/20 15:19 [facility] (Rec: 07/04/20 16:02 [facility] [id number]) Physical Therapy Assessment Goals Five Jail Goal (LTG) Pt will be able to step up/ down a curb confidently w/o outside support. LTG Duration 08/25/20 Four Impairment pain Jail Goal (LTG) Pt will be able to maintain inc activity with pain level at no greater than 2/10 for mult weeks at a time. LTG Duration 08/25/20 Three Impairment strength Short Term Goal (STG) Pt will be indep with HEP and have appropriate tools to cont at home STG Duration 07/25/20 Jail Goal (LTG) Pt will improve hip MMT grade by at least 1 MMT in all planes to improve strength in order to improve ease of mobility LTG Duration 08/25/20 Two Impairment LPM Repeater Chief Goal (LTG) Pt will show imrpoved core stability by scoring at least 3/5 on LPM in all planes in order to improve stability in yard LTG Duration 08/25/20 One Impairment balance Short Term Goal (STG) Pt will improve DGI score to at least 20 to show dec chance of falling. STG Duration 07/25/20 Repeater Chief Goal (LTG) pt will improve FGA score to at least 20 to show dec risk for falls LTG Duration 08/25/20 Assessment Summary Assessment Pt able to do all exercises standing with c/o of just fatigue in feet. When got to last standing exercise, pt noted some discomfort w/toe taps after 8 so stopped. Pt able to do seated on dynadisc w/good stabilization and without inc pain. Physical Therapy Plan Frequency and Duration Frequency of Treatment 1-2x/week Duration of Treatment 2 months Plan of Care Start Date 06/25/20 Plan of Care End Date 08/25/20 Next Visit Focus/Plan Next Note Type Treatment Note Next Visit Plan cont to work on core staiblity w/unstable surfaces
--- NOTE | 2020-07-09 16:55 | PT.OTN ---
Current Diagnoses Other chronic pain (07/09/20) Pain in right hip (07/09/20) Spinal stenosis, lumbar region without neurogenic claudication (07/09/20) Spinal stenosis, lumbar region with neurogenic claudication (07/09/20) Low back pain (07/09/20) Other muscle spasm (07/09/20) Difficulty in walking, not elsewhere classified (07/09/20) Weakness (07/09/20) Physical Therapy Treatment Note PT-OP-A Visit Information Start: 02/14/20 08:08 Freq: Status: Active Protocol: Document 07/09/20 09:51 [facility] (Rec: 07/09/20 10:31 [facility]AK [id number]) Out-Patient Physical Therapy Visit Information Visit Information Visit Type Treatment Note Visit Start Time 09:45 Visit Stop Time 10:30 Total Visit Minutes 45 Visit Number 17 Number of ASSISTANT PROFESSOR SURGICAL TECHNOLOGY Visits 0 PT-OP-B Current Condition Start: 02/14/20 08:08 Freq: Status: Active Protocol: Document 07/02/20 08:11 SAK (Rec: 07/02/20 09:02 [facility]AK [id number]) Current Condition History of Current Condition Current Complaints R LB History of Current Condition 06/25- Pt reports she has hip pain since May. SHe had a Xray and MD said hip is fine. Hip pain started clearing up until yesterday when she had a little bit after painting 4 days. Pt MD recommended that she sees a surgeon d/t concern for cauda equina. She has a video conference w/MD neurosurgeon. Her current MD thinks it is stenosis at L3-4. Pt has been doing her exercises from prior therapy daily and her rehabilitation counsellor MD said he was amazed at how strong she is. Pt just saw Dr. Levin and she just had an injection on R side d/t nerve impingement and her charcot foot is getting worse. Pt is unsure if she needs to be here but her rehabilitation counsellor wants her to do PT again. She is back on arthritis medicine d/t hands swelling and ached when she went off it. They still don't know if its sero negative RA or something else. Back on prednisone and another appointment. Pt cannot walk more than a block d/t her foot pain. She cannot get in/out of the bath tub (has a jet tub). She tried the other day and had trouble getting out d/t stability at feet. She avoids heavy gardening anymore. She plants in pots instead. She cannot walk across grass without cane. Pt reports she is so afraid of falling and every day she feels like she almost falls especailly outside. Pt reports her exasterbation of back pain is much better since last bout of PT. Pt reports only a little aching in back & little pain in groin. Last night she had slight hip pain but last time before that she had hip pain was 7 days ago. from prior eval: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 States she got up from chair, felt excrutiating pain ( almost wrost pain ever had) in buttock left greater than right. States doctors think the pain coming from low back but she disagrees: I know what pain from my low back feels like. 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 Has been getting some better, can now sit, but pain persists and limits her activity. Has been seen in PT by this therapist previously and has been doing ther ex, ice, heat, using ball for self -massage. Reports hysicians wanting to refer patient to spinal surgeon due to MRI showing bulging disc at L34, but she refuses at this time. Pain worse with prolonged sitting on any surface. Because of pain can't ambulate on stairs with alternating pattern due to pain. Trying to walk. Hasn't been able to go the pool. Feels weak. Has been trying to change positions more frequently. Sleeps with a heating pad between her legs due to pubic pain. Has low back pain but states she feels more weak than painful in back. Also has peroneal tendonitis right ankle; was in a lace-up splint over past month, pain improved. Having insoles changed next week. Denies shooting pain down leg or any giving way of legs. Has EMG next week at due to persistent numbness right LE, across ankle into big toe that she has had since spinal surgery. Prior Treatments and Tests Mult bouts of PT PT-OP-C Subjective Start: 02/14/20 08:08 Freq: Status: Active Protocol: Document 07/09/20 09:51 [facility] (Rec: 07/09/20 10:31 [facility]AK [id number]) OP-PT Subjective Patient Comments Patient Comments Went back on Lyrica due to hands hurting so badly, also foot pain. Now has strap, Dynadisc, and foam pads for balance and core training, flexibility. Wants to review safe use and get more ideas. PT-OP-G Mobility & Gait Start: 02/14/20 08:08 Freq: Status: Active Protocol: Document 06/25/20 10:33 [facility] (Rec: 06/25/20 11:47 [facility] [id number]) OP Gait Assessment Comments Gait Comments amb with dec push off and lat leaning with very slow speed Stair Climbing Evaluation Comments Stair Climbing Comments Step to w/R leading up w/B rails, step to down w/B rails w/R leading and turned sideways slightly PT-OP-H Neuro Start: 02/14/20 08:08 Freq: Status: Active Protocol: Document 02/14/20 11:13 [facility] (Rec: 02/14/20 11:56 [facility] [id number]) Sensation Evaluation Gross Sensation Gross Sensation Right LE Impaired Sensation Description Numbness Dermatome Impairments L5 PT-OP-J Posture/Palpation/Skin Start: 02/14/20 08:08 Freq: Status: Active Protocol: Document 06/25/20 10:33 [facility] (Rec: 06/25/20 11:47 [facility] [id number]) Posture Evaluation Saúl Postural Classification System Lumbar Protective Mechanism Left AP 1 Lumbar Protective Mechanism Right AP 0 Lumbar Protective Mechanism Left PA 2 Lumbar Protective Mechanism Right PA 0 PT-OP-K Range of Motion Start: 02/14/20 08:08 Freq: Status: Active Protocol: Document 02/14/20 11:13 [facility]AK (Rec: 02/14/20 11:56 [facility] [id number]) Lumbar Spine Range of Motion Lumbar Spine Active Comments mild to mod decrease all motions but reports minimal pain LB or buttock Hip Goniometric Range of Motion Hip right passive Flexion w/Knee Flexed 120 Straight Leg Raise 65 Extension 0 Internal Rotation 30 External Rotation 55 Left passive Flexion w/Knee Flexed 110 Straight Leg Raise 70 Extension 0 Internal Rotation 25 External Rotation 60 Right Active Straight Leg Raise 55 Left Active Straight Leg Raise 60 Hip ROM Limitations Hip ROM Limitations Soft Tissue Tightness,Muscle Weakness,Pain Knee Goniometric Range of Motion Knee gloria Knee ROM WFL Yes Ankle and Foot Goniometric Range of Motion Ankle and Foot Right Active Ankle/Foot ROM WFL No Dorsiflexion with Knee Flexed 8 Dorsiflexion with Knee Extended 4 Left Ankle/Foot ROM WFL No Dorsiflexion with Knee Flexed 5 Dorsiflexion with Knee Extended 3 PT-OP-L Special Tests Start: 02/14/20 08:08 Freq: Status: Active Protocol: Document 02/14/20 11:13 [facility] (Rec: 02/14/20 11:56 [facility] [id number]) Special Tests Lumbar Spine Special Tests Josh Test Results positive for muscle tightness Standing Flexion Test Results negative Slump Test Results negative gloria Stork Test Test Results unable to tolerate Straight Leg Raise Test Results positive only for muscle tightness Hip Special Tests Straight Leg Raise Test Results positive for muscle tightness only Trendelenberg Test Results positive for muscle weakness left Piriformis Test Results positive left PT-OP-M Strength Start: 02/14/20 08:08 Freq: Status: Active Protocol: Document 06/25/20 10:33 [facility] (Rec: 06/25/20 11:47 [facility] [id number]) Hip Strength Hip Manual Muscle Testing Left Flexion (L2) 4- Good- Extension (S1) 3+ Fair+ Abduction 4 Good Adduction 4- Good- External Rotation 4 Good Internal Rotation 4+ Good+ Right Flexion (L2) 4- Good- Extension (S1) 3+ Fair+ Abduction 4 Good Adduction 4 Good External Rotation 4- Good- Internal Rotation 4 Good Knee Strength Knee Manual Muscle Testing Right Flexion (S2) 4+ Good+ Extension (L3) 5 Normal Left Flexion (S2) 4+ Good+ Extension (L3) 5 Normal Ankle/Foot Strength Ankle and Foot Manual Muscle Testing Right Dorsiflexion (L4) 4- Good- Plantarflexion (S1) 4 Good Inversion 3+ Fair+ Eversion (S1) 4 Good Comments pain w/range Left Dorsiflexion (L4) 5 Normal Plantarflexion (S1) 5 Normal Inversion 5 Normal Eversion (S1) 5 Normal Comments seated PF testing PT-OP-Q Treatments Start: 02/14/20 08:08 Freq: Status: Active Protocol: Document 07/09/20 09:51 [facility] (Rec: 07/09/20 10:31 [facility]AK [id number]) Cardio Equipment Recumbent Stepper (Sci-Fit) Duration (Minutes) 10 Resistance 1.5 Seat Position 11 Other verbal and manual cues for LE alignment, core activation Therapeutic Exercises Sitting Exercises dynadisc Sitting Exercise Name balance EO, EC, leg lifts, LAQ ,pelvic circles B Reps/Minutes 10' Comments emphasis on core stab, added unstable surface under feet seated crunch Equipment Used Dynadisc Reps/Minutes 10x Comments cues for spinal alignment, technique may Reps/Minutes 10x Comments Dynadisc 4 Sitting Exercise Name hip hinge reverse sit up Reps/Minutes 8 Comments dynadisc under bottom and feet Neuro Re-Education Treatment Balance Activities foam stand Details EO, EC Comments , blue foam: staggered, wide TRANG, wt shifts PT-OP-R Modalities Start: 02/14/20 08:08 Freq: Status: Active Protocol: Document 07/09/20 09:51 [facility] (Rec: 07/09/20 10:31 [facility] [id number]) Hot Pack/Cold Pack Treatment Cold Pack Comments refused, didn't feel need PT-OP-T Assessment and Plan Start: 02/14/20 08:08 Freq: Status: Active Protocol: Document 07/09/20 09:51 [facility] (Rec: 07/09/20 10:31 [facility] [id number]) Physical Therapy Assessment Goals Five Nurse Assistant Goal (LTG) Pt will be able to step up/ down a curb confidently w/o outside support. LTG Duration 08/25/20 Four Impairment pain Mcc Goal (LTG) Pt will be able to maintain inc activity with pain level at no greater than 2/10 for mult weeks at a time. LTG Duration 08/25/20 Three Impairment strength Short Term Goal (STG) Pt will be indep with HEP and have appropriate tools to cont at home STG Duration 07/25/20 Nurse Assistant Goal (LTG) Pt will improve hip MMT grade by at least 1 MMT in all planes to improve strength in order to improve ease of mobility LTG Duration 08/25/20 Two Impairment LPM Short Term Goal (STG) Patient able to ascend and descend 4 stairs with alternating pattern with minimal to no pain 03/14/20: goal met STG Duration MET Mcc Goal (LTG) Pt will show imrpoved core stability by scoring at least 3/5 on LPM in all planes in order to improve stability in yard LTG Duration 08/25/20 One Impairment balance Short Term Goal (STG) Pt will improve DGI score to at least 20 to show dec chance of falling. STG Duration 07/25/20 Mcc Goal (LTG) pt will improve FGA score to at least 20 to show dec risk for falls LTG Duration 08/25/20 Assessment Summary Assessment Demonstrated good understanding of new equipment to assist with HEP, written instructions given, reviewed manuals with patient. No heat or ice at end of session per patient request. Physical Therapy Plan Frequency and Duration Frequency of Treatment 1-2x/week Duration of Treatment 2 months Plan of Care Start Date 06/25/20 Plan of Care End Date 08/25/20 Therapeutic Interventions Therapeutic Interventions Aquatic Therapy,Balance Training,Gait Training,Home Exercise Program,Joint Mobilizations,Manual Therapy, Neuromuscular Re-education, Patient/Caregiver Education, Self-Care/Home Management,Soft Tissue Mobilization,Taping, Therapeutic Activities, Therapeutic Exercises Modalities Cold Pack/Ice Massage,Electric Stimulation,Hot Packs, Infrared Therapy,Ultrasound Next Visit Focus/Plan Next Note Type Treatment Note Next Visit Plan cont to work on core staiblity w/unstable surfaces
--- NOTE | 2020-07-11 11:31 | PT.OTN ---
Current Diagnoses Other chronic pain (07/11/20) Pain in right hip (07/11/20) Spinal stenosis, lumbar region without neurogenic claudication (07/11/20) Spinal stenosis, lumbar region with neurogenic claudication (07/11/20) Low back pain (07/11/20) Other muscle spasm (07/11/20) Difficulty in walking, not elsewhere classified (07/11/20) Weakness (07/11/20) Physical Therapy Treatment Note PT-OP-A Visit Information Start: 02/14/20 08:08 Freq: Status: Active Protocol: Document 07/11/20 09:44 SAK (Rec: 07/11/20 10:31 SAK [id number]) Out-Patient Physical Therapy Visit Information Visit Information Visit Type Treatment Note Visit Start Time 09:45 Visit Stop Time 10:40 Total Visit Minutes 55 Visit Number 18 Number of INTELLIGENCE ANALYST Visits 0 PT-OP-B Current Condition Start: 02/14/20 08:08 Freq: Status: Active Protocol: Document 07/02/20 08:11 SAK (Rec: 07/02/20 09:02 SAK [id number]) Current Condition History of Current Condition Current Complaints R LB History of Current Condition 06/25- Pt reports she has hip pain since May. SHe had a Xray and MD said hip is fine. Hip pain started clearing up until yesterday when she had a little bit after painting 4 days. Pt MD recommended that she sees a surgeon d/t concern for cauda equina. She has a video conference w/MD neurosurgeon. Her current MD thinks it is stenosis at L3-4. Pt has been doing her exercises from prior therapy daily and her telecommunications specialist MD said he was amazed at how strong she is. Pt just saw Dr. Levin and she just had an injection on R side d/t nerve impingement and her charcot foot is getting worse. Pt is unsure if she needs to be here but her telecommunications specialist wants her to do PT again. She is back on arthritis medicine d/t hands swelling and ached when she went off it. They still don't know if its sero negative RA or something else. Back on prednisone and another appointment. Pt cannot walk more than a block d/t her foot pain. She cannot get in/out of the bath tub (has a jet tub). She tried the other day and had trouble getting out d/t stability at feet. She avoids heavy gardening anymore. She plants in pots instead. She cannot walk across grass without cane. Pt reports she is so afraid of falling and every day she feels like she almost falls especailly outside. Pt reports her exasterbation of back pain is much better since last bout of PT. Pt reports only a little aching in back & little pain in groin. Last night she had slight hip pain but last time before that she had hip pain was 7 days ago. from prior eval: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 States she got up from chair, felt excrutiating pain ( almost wrost pain ever had) in buttock left greater than right. States doctors think the pain coming from low back but she disagrees: I know what pain from my low back feels like. 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 Has been getting some better, can now sit, but pain persists and limits her activity. Has been seen in PT by this therapist previously and has been doing ther ex, ice, heat, using ball for self -massage. Reports hysicians wanting to refer patient to spinal surgeon due to MRI showing bulging disc at L34, but she refuses at this time. Pain worse with prolonged sitting on any surface. Because of pain can't ambulate on stairs with alternating pattern due to pain. Trying to walk. Hasn't been able to go the pool. Feels weak. Has been trying to change positions more frequently. Sleeps with a heating pad between her legs due to pubic pain. Has low back pain but states she feels more weak than painful in back. Also has peroneal tendonitis right ankle; was in a lace-up splint over past month, pain improved. Having insoles changed next week. Denies shooting pain down leg or any giving way of legs. Has EMG next week at due to persistent numbness right LE, across ankle into big toe that she has had since spinal surgery. Prior Treatments and Tests Mult bouts of PT PT-OP-C Subjective Start: 02/14/20 08:08 Freq: Status: Active Protocol: Document 07/11/20 09:44 SAI (Rec: 07/11/20 10:31 SAK [id number]) OP-PT Subjective Patient Comments Patient Comments A little sore in right hip and back from painting yesterday. Pleased with equipment purchases of Dynadisc, blue foam pads, and yoga strap. PT-OP-G Mobility & Gait Start: 02/14/20 08:08 Freq: Status: Active Protocol: Document 06/25/20 10:33 [facility] (Rec: 06/25/20 11:47 [facility] [id number]) OP Gait Assessment Comments Gait Comments amb with dec push off and lat leaning with very slow speed Stair Climbing Evaluation Comments Stair Climbing Comments Step to w/R leading up w/B rails, step to down w/B rails w/R leading and turned sideways slightly PT-OP-H Neuro Start: 02/14/20 08:08 Freq: Status: Active Protocol: Document 02/14/20 11:13 SAI (Rec: 02/14/20 11:56 [facility] [id number]) Sensation Evaluation Gross Sensation Gross Sensation Right LE Impaired Sensation Description Numbness Dermatome Impairments L5 PT-OP-J Posture/Palpation/Skin Start: 02/14/20 08:08 Freq: Status: Active Protocol: Document 06/25/20 10:33 [facility] (Rec: 06/25/20 11:47 [facility] [id number]) Posture Evaluation Saúl Postural Classification System Lumbar Protective Mechanism Left AP 1 Lumbar Protective Mechanism Right AP 0 Lumbar Protective Mechanism Left PA 2 Lumbar Protective Mechanism Right PA 0 PT-OP-K Range of Motion Start: 02/14/20 08:08 Freq: Status: Active Protocol: Document 02/14/20 11:13 SAI (Rec: 02/14/20 11:56 [facility] [id number]) Lumbar Spine Range of Motion Lumbar Spine Active Comments mild to mod decrease all motions but reports minimal pain LB or buttock Hip Goniometric Range of Motion Hip right passive Flexion w/Knee Flexed 120 Straight Leg Raise 65 Extension 0 Internal Rotation 30 External Rotation 55 Left passive Flexion w/Knee Flexed 110 Straight Leg Raise 70 Extension 0 Internal Rotation 25 External Rotation 60 Right Active Straight Leg Raise 55 Left Active Straight Leg Raise 60 Hip ROM Limitations Hip ROM Limitations Soft Tissue Tightness,Muscle Weakness,Pain Knee Goniometric Range of Motion Knee gloria Knee ROM WFL Yes Ankle and Foot Goniometric Range of Motion Ankle and Foot Right Active Ankle/Foot ROM WFL No Dorsiflexion with Knee Flexed 8 Dorsiflexion with Knee Extended 4 Left Ankle/Foot ROM WFL No Dorsiflexion with Knee Flexed 5 Dorsiflexion with Knee Extended 3 PT-OP-L Special Tests Start: 02/14/20 08:08 Freq: Status: Active Protocol: Document 02/14/20 11:13 SAK (Rec: 02/14/20 11:56 [facility] [id number]) Special Tests Lumbar Spine Special Tests Josh Test Results positive for muscle tightness Standing Flexion Test Results negative Slump Test Results negative gloria Stork Test Test Results unable to tolerate Straight Leg Raise Test Results positive only for muscle tightness Hip Special Tests Straight Leg Raise Test Results positive for muscle tightness only Trendelenberg Test Results positive for muscle weakness left Piriformis Test Results positive left PT-OP-M Strength Start: 02/14/20 08:08 Freq: Status: Active Protocol: Document 06/25/20 10:33 [facility] (Rec: 06/25/20 11:47 [facility] [id number]) Hip Strength Hip Manual Muscle Testing Left Flexion (L2) 4- Good- Extension (S1) 3+ Fair+ Abduction 4 Good Adduction 4- Good- External Rotation 4 Good Internal Rotation 4+ Good+ Right Flexion (L2) 4- Good- Extension (S1) 3+ Fair+ Abduction 4 Good Adduction 4 Good External Rotation 4- Good- Internal Rotation 4 Good Knee Strength Knee Manual Muscle Testing Right Flexion (S2) 4+ Good+ Extension (L3) 5 Normal Left Flexion (S2) 4+ Good+ Extension (L3) 5 Normal Ankle/Foot Strength Ankle and Foot Manual Muscle Testing Right Dorsiflexion (L4) 4- Good- Plantarflexion (S1) 4 Good Inversion 3+ Fair+ Eversion (S1) 4 Good Comments pain w/range Left Dorsiflexion (L4) 5 Normal Plantarflexion (S1) 5 Normal Inversion 5 Normal Eversion (S1) 5 Normal Comments seated PF testing PT-OP-Q Treatments Start: 02/14/20 08:08 Freq: Status: Active Protocol: Document 07/11/20 09:44 SAK (Rec: 07/11/20 10:31 SAK [id number]) Cardio Equipment Recumbent Stepper (Sci-Fit) Duration (Minutes) 10 Resistance 1.5 Seat Position 11 Other verbal and manual cues for LE alignment, core activation Therapeutic Exercises Sitting Exercises sit to stand Equipment Used ball between knees, elevated mat table Reps/Minutes 10x Comments cues for hip hinge, core, quad and gluteal activation dynadisc Sitting Exercise Name balance EO, EC, leg lifts, LAQ ,pelvic circles B Equipment Used Dynadisc x 2 Reps/Minutes 10' Comments emphasis on core stab, added unstable surface under feet seated crunch Equipment Used Dynadisc x 2 Reps/Minutes 10x Comments cues for spinal alignment, technique hip hinge with abdominal activation Sitting Exercise Name sit to stand Equipment Used yardstick Reps/Minutes 3x Comments verbal and manual cues march Reps/Minutes 10x Comments Dynadisc 4 Sitting Exercise Name hip hinge reverse sit up Reps/Minutes 8 Comments dynadisc under bottom and feet Standing Exercises sit to stand, shallow squats Reps/Minutes 5x Comments cued for spinal alignment, technique Neuro Re-Education Treatment Balance Activities foam stand Details EO, EC Comments , blue foam: staggered, wide TRANG, wt shifts, head turns, arm lifts PT-OP-R Modalities Start: 02/14/20 08:08 Freq: Status: Active Protocol: Document 07/11/20 09:44 [facility] (Rec: 07/11/20 10:31 [facility] [id number]) Hot Pack/Cold Pack Treatment Cold Pack Location right hiip/LB Patient Position Sidelying Treatment Duration (minutes) 10 Comments due to verbalized soreness PT-OP-T Assessment and Plan Start: 02/14/20 08:08 Freq: Status: Active Protocol: Document 07/11/20 09:44 [facility] (Rec: 07/11/20 10:31 [facility] [id number]) Physical Therapy Assessment Goals Five Signal Intelligence Analyst Goal (LTG) Pt will be able to step up/ down a curb confidently w/o outside support. LTG Duration 08/25/20 Four Impairment pain Intermediate Goal (LTG) Pt will be able to maintain inc activity with pain level at no greater than 2/10 for mult weeks at a time. LTG Duration 08/25/20 Three Impairment strength Short Term Goal (STG) Pt will be indep with HEP and have appropriate tools to cont at home STG Duration 07/25/20 Intermediate Goal (LTG) Pt will improve hip MMT grade by at least 1 MMT in all planes to improve strength in order to improve ease of mobility LTG Duration 08/25/20 Two Impairment LPM Short Term Goal (STG) Patient able to ascend and descend 4 stairs with alternating pattern with minimal to no pain 03/14/20: goal met STG Duration MET Signal Intelligence Analyst Goal (LTG) Pt will show imrpoved core stability by scoring at least 3/5 on LPM in all planes in order to improve stability in yard LTG Duration 08/25/20 One Impairment balance Short Term Goal (STG) Pt will improve DGI score to at least 20 to show dec chance of falling. STG Duration 07/25/20 Intermediate Goal (LTG) pt will improve FGA score to at least 20 to show dec risk for falls LTG Duration 08/25/20 Assessment Summary Assessment Fair tolerance for progression of standing exercises on blue foam. Some soreness today in right hip and lumbar spine due to painting. Continue to discuss throughout sesions neutral alignment, body mechanics for usual activities . Patient demonstrating good understanding. Physical Therapy Plan Frequency and Duration Frequency of Treatment 1-2x/week Duration of Treatment 2 months Plan of Care Start Date 06/25/20 Plan of Care End Date 08/25/20 Therapeutic Interventions Therapeutic Interventions Aquatic Therapy,Balance Training,Gait Training,Home Exercise Program,Joint Mobilizations,Manual Therapy, Neuromuscular Re-education, Patient/Caregiver Education, Self-Care/Home Management,Soft Tissue Mobilization,Taping, Therapeutic Activities, Therapeutic Exercises Modalities Cold Pack/Ice Massage,Electric Stimulation,Hot Packs, Infrared Therapy,Ultrasound Next Visit Focus/Plan Next Note Type Treatment Note Next Visit Plan Progression of therapeutic exercises as tolerated to improve balance and gait.
--- NOTE | 2020-07-18 12:57 | PT.OTN ---
Current Diagnoses Other chronic pain (07/18/20) Pain in right hip (07/18/20) Spinal stenosis, lumbar region without neurogenic claudication (07/18/20) Spinal stenosis, lumbar region with neurogenic claudication (07/18/20) Low back pain (07/18/20) Other muscle spasm (07/18/20) Difficulty in walking, not elsewhere classified (07/18/20) Weakness (07/18/20) Physical Therapy Treatment Note PT-OP-A Visit Information Start: 02/14/20 08:08 Freq: Status: Active Protocol: Document 07/18/20 09:46 SAK (Rec: 07/18/20 10:32 SAK [id number]) Out-Patient Physical Therapy Visit Information Visit Information Visit Type Treatment Note Visit Start Time 09:45 Visit Stop Time 10:45 Total Visit Minutes 60 Visit Number 19 Number of MATHEMATICS FACULTY MEMBER Visits 0 PT-OP-B Current Condition Start: 02/14/20 08:08 Freq: Status: Active Protocol: Document 07/02/20 08:11 SAK (Rec: 07/02/20 09:02 SAK [id number]) Current Condition History of Current Condition Current Complaints R LB History of Current Condition 06/25- Pt reports she has hip pain since May. SHe had a Xray and MD said hip is fine. Hip pain started clearing up until yesterday when she had a little bit after painting 4 days. Pt MD recommended that she sees a surgeon d/t concern for cauda equina. She has a video conference w/MD neurosurgeon. Her current MD thinks it is stenosis at L3-4. Pt has been doing her exercises from prior therapy daily and her rehabilitation aide MD said he was amazed at how strong she is. Pt just saw Dr. Levin and she just had an injection on R side d/t nerve impingement and her charcot foot is getting worse. Pt is unsure if she needs to be here but her rehabilitation aide wants her to do PT again. She is back on arthritis medicine d/t hands swelling and ached when she went off it. They still don't know if its sero negative RA or something else. Back on prednisone and another appointment. Pt cannot walk more than a block d/t her foot pain. She cannot get in/out of the bath tub (has a jet tub). She tried the other day and had trouble getting out d/t stability at feet. She avoids heavy gardening anymore. She plants in pots instead. She cannot walk across grass without cane. Pt reports she is so afraid of falling and every day she feels like she almost falls especailly outside. Pt reports her exasterbation of back pain is much better since last bout of PT. Pt reports only a little aching in back & little pain in groin. Last night she had slight hip pain but last time before that she had hip pain was 7 days ago. from prior eval: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 States she got up from chair, felt excrutiating pain ( almost wrost pain ever had) in buttock left greater than right. States doctors think the pain coming from low back but she disagrees: I know what pain from my low back feels like. 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 Has been getting some better, can now sit, but pain persists and limits her activity. Has been seen in PT by this therapist previously and has been doing ther ex, ice, heat, using ball for self -massage. Reports hysicians wanting to refer patient to spinal surgeon due to MRI showing bulging disc at L34, but she refuses at this time. Pain worse with prolonged sitting on any surface. Because of pain can't ambulate on stairs with alternating pattern due to pain. Trying to walk. Hasn't been able to go the pool. Feels weak. Has been trying to change positions more frequently. Sleeps with a heating pad between her legs due to pubic pain. Has low back pain but states she feels more weak than painful in back. Also has peroneal tendonitis right ankle; was in a lace-up splint over past month, pain improved. Having insoles changed next week. Denies shooting pain down leg or any giving way of legs. Has EMG next week at due to persistent numbness right LE, across ankle into big toe that she has had since spinal surgery. Prior Treatments and Tests Mult bouts of PT PT-OP-C Subjective Start: 02/14/20 08:08 Freq: Status: Active Protocol: Document 07/18/20 09:46 [facility] (Rec: 07/18/20 10:32 SAK [id number]) OP-PT Subjective Patient Comments Patient Comments Saw new web analytics developer, is going to wean her off Prednisone, will be starting Sulfasalazine instead. Bloodwork being done today. See her again in 3 months. MRI results bulging disc has receded some, stenosis unchanged. Right hip sore last couple days 04/17, yesterday was right at waist. Dr. Parr to call patient after he receives MRI results. Plans to go to [employer] jud for the first time this weekend. PT-OP-G Mobility & Gait Start: 02/14/20 08:08 Freq: Status: Active Protocol: Document 06/25/20 10:33 [facility] (Rec: 06/25/20 11:47 [facility] [id number]) OP Gait Assessment Comments Gait Comments amb with dec push off and lat leaning with very slow speed Stair Climbing Evaluation Comments Stair Climbing Comments Step to w/R leading up w/B rails, step to down w/B rails w/R leading and turned sideways slightly PT-OP-H Neuro Start: 02/14/20 08:08 Freq: Status: Active Protocol: Document 02/14/20 11:13 [facility] (Rec: 02/14/20 11:56 [facility] [id number]) Sensation Evaluation Gross Sensation Gross Sensation Right LE Impaired Sensation Description Numbness Dermatome Impairments L5 PT-OP-J Posture/Palpation/Skin Start: 02/14/20 08:08 Freq: Status: Active Protocol: Document 06/25/20 10:33 [facility] (Rec: 06/25/20 11:47 [facility] [id number]) Posture Evaluation Saúl Postural Classification System Lumbar Protective Mechanism Left AP 1 Lumbar Protective Mechanism Right AP 0 Lumbar Protective Mechanism Left PA 2 Lumbar Protective Mechanism Right PA 0 PT-OP-K Range of Motion Start: 02/14/20 08:08 Freq: Status: Active Protocol: Document 02/14/20 11:13 [facility] (Rec: 02/14/20 11:56 [facility] [id number]) Lumbar Spine Range of Motion Lumbar Spine Active Comments mild to mod decrease all motions but reports minimal pain LB or buttock Hip Goniometric Range of Motion Hip right passive Flexion w/Knee Flexed 120 Straight Leg Raise 65 Extension 0 Internal Rotation 30 External Rotation 55 Left passive Flexion w/Knee Flexed 110 Straight Leg Raise 70 Extension 0 Internal Rotation 25 External Rotation 60 Right Active Straight Leg Raise 55 Left Active Straight Leg Raise 60 Hip ROM Limitations Hip ROM Limitations Soft Tissue Tightness,Muscle Weakness,Pain Knee Goniometric Range of Motion Knee gloria Knee ROM WFL Yes Ankle and Foot Goniometric Range of Motion Ankle and Foot Right Active Ankle/Foot ROM WFL No Dorsiflexion with Knee Flexed 8 Dorsiflexion with Knee Extended 4 Left Ankle/Foot ROM WFL No Dorsiflexion with Knee Flexed 5 Dorsiflexion with Knee Extended 3 PT-OP-L Special Tests Start: 02/14/20 08:08 Freq: Status: Active Protocol: Document 02/14/20 11:13 SAK (Rec: 02/14/20 11:56 [facility] [id number]) Special Tests Lumbar Spine Special Tests Josh Test Results positive for muscle tightness Standing Flexion Test Results negative Slump Test Results negative gloria Stork Test Test Results unable to tolerate Straight Leg Raise Test Results positive only for muscle tightness Hip Special Tests Straight Leg Raise Test Results positive for muscle tightness only Trendelenberg Test Results positive for muscle weakness left Piriformis Test Results positive left PT-OP-M Strength Start: 02/14/20 08:08 Freq: Status: Active Protocol: Document 06/25/20 10:33 [facility] (Rec: 06/25/20 11:47 [facility] [id number]) Hip Strength Hip Manual Muscle Testing Left Flexion (L2) 4- Good- Extension (S1) 3+ Fair+ Abduction 4 Good Adduction 4- Good- External Rotation 4 Good Internal Rotation 4+ Good+ Right Flexion (L2) 4- Good- Extension (S1) 3+ Fair+ Abduction 4 Good Adduction 4 Good External Rotation 4- Good- Internal Rotation 4 Good Knee Strength Knee Manual Muscle Testing Right Flexion (S2) 4+ Good+ Extension (L3) 5 Normal Left Flexion (S2) 4+ Good+ Extension (L3) 5 Normal Ankle/Foot Strength Ankle and Foot Manual Muscle Testing Right Dorsiflexion (L4) 4- Good- Plantarflexion (S1) 4 Good Inversion 3+ Fair+ Eversion (S1) 4 Good Comments pain w/range Left Dorsiflexion (L4) 5 Normal Plantarflexion (S1) 5 Normal Inversion 5 Normal Eversion (S1) 5 Normal Comments seated PF testing PT-OP-Q Treatments Start: 12/09/20 08:08 Freq: Status: Active Protocol: Document 07/18/20 09:46 [facility] (Rec: 07/18/20 10:32 [facility] [id number]) Cardio Equipment Recumbent Stepper (Sci-Fit) Duration (Minutes) 10 Resistance 1.7 Seat Position 11 Other verbal and manual cues for LE alignment, core activation Therapeutic Exercises Sitting Exercises sit to stand Equipment Used ball between knees, elevated mat table Reps/Minutes 10x Comments cues for hip hinge, core, quad and gluteal activation dynadisc Sitting Exercise Name balance EO, EC, leg lifts, LAQ ,pelvic circles B Equipment Used Dynadisc x 2 Reps/Minutes 10' Comments emphasis on core stab, added unstable surface under feet seated crunch Equipment Used Dynadisc x 2 Reps/Minutes 10x Comments cues for spinal alignment, technique Manual Therapy Treatment Soft Tissue Mobilization glutes Body Location R lat Mobilization Type Rolling Intensity/Depth Moderate Body Position Sidelying right lumbar paraspinals Body Location gloria paraspinals & right QL into sacrum Mobilization Type Myofascial Release,Rolling, Other Intensity/Depth Moderate Body Position Sidelying Comments Reported decrease in pain, palpable decrease in soft tissue tension Neuro Re-Education Treatment Balance Activities foam stand Details EO, EC Comments , blue foam: staggered, wide TRANG, wt shifts, head turns, arm lifts PT-OP-R Modalities Start: 02/14/20 08:08 Freq: Status: Active Protocol: Document 07/18/20 09:46 [facility] (Rec: 07/18/20 12:57 [facility] [id number]) Hot Pack/Cold Pack Treatment Hot Pack Location lumbosacral spine Patient Position Hooklying Treatment Duration (minutes) 15 Patient Tolerance Good PT-OP-T Assessment and Plan Start: 02/14/20 08:08 Freq: Status: Active Protocol: Document 07/18/20 09:46 [facility] (Rec: 07/18/20 12:57 [facility] [id number]) Physical Therapy Assessment Goals Five Fx Artist Goal (LTG) Pt will be able to step up/ down a curb confidently w/o outside support. LTG Duration 08/25/20 Four Impairment pain Residential Goal (LTG) Pt will be able to maintain inc activity with pain level at no greater than 2/10 for mult weeks at a time. LTG Duration 08/25/20 Three Impairment strength Short Term Goal (STG) Pt will be indep with HEP and have appropriate tools to cont at home STG Duration 07/25/20 Residential Goal (LTG) Pt will improve hip MMT grade by at least 1 MMT in all planes to improve strength in order to improve ease of mobility LTG Duration 08/25/20 Two Impairment LPM Short Term Goal (STG) Patient able to ascend and descend 4 stairs with alternating pattern with minimal to no pain 03/14/20: goal met STG Duration MET Residential Goal (LTG) Pt will show imrpoved core stability by scoring at least 3/5 on LPM in all planes in order to improve stability in yard LTG Duration 08/25/20 One Impairment balance Short Term Goal (STG) Pt will improve DGI score to at least 20 to show dec chance of falling. STG Duration 07/25/20 Residential Goal (LTG) pt will improve FGA score to at least 20 to show dec risk for falls LTG Duration 08/25/20 Assessment Summary Assessment Patient changing medications, some increased right hip and l /s soreness but overall low level pain right now. Reminded of use of tennis ball for self-massage. DTM today. Physical Therapy Plan Frequency and Duration Frequency of Treatment 1-2x/week Duration of Treatment 2 months Plan of Care Start Date 06/25/20 Plan of Care End Date 08/25/20 Therapeutic Interventions Therapeutic Interventions Aquatic Therapy,Balance Training,Gait Training,Home Exercise Program,Joint Mobilizations,Manual Therapy, Neuromuscular Re-education, Patient/Caregiver Education, Self-Care/Home Management,Soft Tissue Mobilization,Taping, Therapeutic Activities, Therapeutic Exercises Modalities Cold Pack/Ice Massage,Electric Stimulation,Hot Packs, Infrared Therapy,Ultrasound Next Visit Focus/Plan Next Note Type Treatment Note Next Visit Plan Progression of therapeutic exercises as tolerated to improve balance and gait.
--- NOTE | 2020-07-23 16:53 | PT.OTN ---
Current Diagnoses Other chronic pain (07/23/20) Pain in right hip (07/23/20) Spinal stenosis, lumbar region without neurogenic claudication (07/23/20) Spinal stenosis, lumbar region with neurogenic claudication (07/23/20) Low back pain (07/23/20) Other muscle spasm (07/23/20) Difficulty in walking, not elsewhere classified (07/23/20) Weakness (07/23/20) Physical Therapy Treatment Note PT-OP-A Visit Information Start: 02/14/20 08:08 Freq: Status: Active Protocol: Document 07/23/20 12:59 SAK (Rec: 07/23/20 13:48 SAK [id number]) Out-Patient Physical Therapy Visit Information Visit Information Visit Type Treatment Note Visit Start Time 13:00 Visit Stop Time 14:00 Total Visit Minutes 60 Visit Number 20 Number of ELECTRICAL RESEARCH ENGINEER Visits 0 PT-OP-B Current Condition Start: 02/14/20 08:08 Freq: Status: Active Protocol: Document 07/02/20 08:11 SAK (Rec: 07/02/20 09:02 SAK [id number]) Current Condition History of Current Condition Current Complaints R LB History of Current Condition 06/25- Pt reports she has hip pain since May. SHe had a Xray and MD said hip is fine. Hip pain started clearing up until yesterday when she had a little bit after painting 4 days. Pt MD recommended that she sees a surgeon d/t concern for cauda equina. She has a video conference w/MD neurosurgeon. Her current MD thinks it is stenosis at L3-4. Pt has been doing her exercises from prior therapy daily and her micro computer specialist MD said he was amazed at how strong she is. Pt just saw Dr. Levin and she just had an injection on R side d/t nerve impingement and her charcot foot is getting worse. Pt is unsure if she needs to be here but her micro computer specialist wants her to do PT again. She is back on arthritis medicine d/t hands swelling and ached when she went off it. They still don't know if its sero negative RA or something else. Back on prednisone and another appointment. Pt cannot walk more than a block d/t her foot pain. She cannot get in/out of the bath tub (has a jet tub). She tried the other day and had trouble getting out d/t stability at feet. She avoids heavy gardening anymore. She plants in pots instead. She cannot walk across grass without cane. Pt reports she is so afraid of falling and every day she feels like she almost falls especailly outside. Pt reports her exasterbation of back pain is much better since last bout of PT. Pt reports only a little aching in back & little pain in groin. Last night she had slight hip pain but last time before that she had hip pain was 7 days ago. from prior eval: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 States she got up from chair, felt excrutiating pain ( almost wrost pain ever had) in buttock left greater than right. States doctors think the pain coming from low back but she disagrees: I know what pain from my low back feels like. 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 Has been getting some better, can now sit, but pain persists and limits her activity. Has been seen in PT by this therapist previously and has been doing ther ex, ice, heat, using ball for self -massage. Reports hysicians wanting to refer patient to spinal surgeon due to MRI showing bulging disc at L34, but she refuses at this time. Pain worse with prolonged sitting on any surface. Because of pain can't ambulate on stairs with alternating pattern due to pain. Trying to walk. Hasn't been able to go the pool. Feels weak. Has been trying to change positions more frequently. Sleeps with a heating pad between her legs due to pubic pain. Has low back pain but states she feels more weak than painful in back. Also has peroneal tendonitis right ankle; was in a lace-up splint over past month, pain improved. Having insoles changed next week. Denies shooting pain down leg or any giving way of legs. Has EMG next week at due to persistent numbness right LE, across ankle into big toe that she has had since spinal surgery. Prior Treatments and Tests Mult bouts of PT PT-OP-C Subjective Start: 02/14/20 08:08 Freq: Status: Active Protocol: Document 07/23/20 12:59 SAK (Rec: 07/23/20 13:48 SAK [id number]) OP-PT Subjective Patient Comments Patient Comments Fell on Wednesday, cleaning railing, stepped backward, fell onto sidewalk and rolled onto grass. couldn't get her up, nothing to hold onto. Crawled to steps, was able to get up. Used heat on low back. Sore everywhere. Had to cancel appointments to go to the pool due to laceration to left forearm. Did some gentle exercise yesterday. Today wok up sore, like low back going to go out . States her has told her she isn't allowed in the yard anymore. PT-OP-G Mobility & Gait Start: 02/14/20 08:08 Freq: Status: Active Protocol: Document 06/25/20 10:33 [facility] (Rec: 06/25/20 11:47 [facility] [id number]) OP Gait Assessment Comments Gait Comments amb with dec push off and lat leaning with very slow speed Stair Climbing Evaluation Comments Stair Climbing Comments Step to w/R leading up w/B rails, step to down w/B rails w/R leading and turned sideways slightly PT-OP-H Neuro Start: 02/14/20 08:08 Freq: Status: Active Protocol: Document 02/14/20 11:13 [facility] (Rec: 02/14/20 11:56 [facility] [id number]) Sensation Evaluation Gross Sensation Gross Sensation Right LE Impaired Sensation Description Numbness Dermatome Impairments L5 PT-OP-J Posture/Palpation/Skin Start: 02/14/20 08:08 Freq: Status: Active Protocol: Document 06/25/20 10:33 [facility] (Rec: 06/25/20 11:47 [facility] [id number]) Posture Evaluation [facility] Postural Classification System Lumbar Protective Mechanism Left AP 1 Lumbar Protective Mechanism Right AP 0 Lumbar Protective Mechanism Left PA 2 Lumbar Protective Mechanism Right PA 0 PT-OP-K Range of Motion Start: 02/14/20 08:08 Freq: Status: Active Protocol: Document 02/14/20 11:13 [facility] (Rec: 02/14/20 11:56 [facility] [id number]) Lumbar Spine Range of Motion Lumbar Spine Active Comments mild to mod decrease all motions but reports minimal pain LB or buttock Hip Goniometric Range of Motion Hip right passive Flexion w/Knee Flexed 120 Straight Leg Raise 65 Extension 0 Internal Rotation 30 External Rotation 55 Left passive Flexion w/Knee Flexed 110 Straight Leg Raise 70 Extension 0 Internal Rotation 25 External Rotation 60 Right Active Straight Leg Raise 55 Left Active Straight Leg Raise 60 Hip ROM Limitations Hip ROM Limitations Soft Tissue Tightness,Muscle Weakness,Pain Knee Goniometric Range of Motion Knee gloria Knee ROM WFL Yes Ankle and Foot Goniometric Range of Motion Ankle and Foot Right Active Ankle/Foot ROM WFL No Dorsiflexion with Knee Flexed 8 Dorsiflexion with Knee Extended 4 Left Ankle/Foot ROM WFL No Dorsiflexion with Knee Flexed 5 Dorsiflexion with Knee Extended 3 PT-OP-L Special Tests Start: 02/14/20 08:08 Freq: Status: Active Protocol: Document 02/14/20 11:13 SAK (Rec: 02/14/20 11:56 SAK [id number]) Special Tests Lumbar Spine Special Tests Josh Test Results positive for muscle tightness Standing Flexion Test Results negative Slump Test Results negative gloria Stork Test Test Results unable to tolerate Straight Leg Raise Test Results positive only for muscle tightness Hip Special Tests Straight Leg Raise Test Results positive for muscle tightness only Trendelenberg Test Results positive for muscle weakness left Piriformis Test Results positive left PT-OP-M Strength Start: 02/14/20 08:08 Freq: Status: Active Protocol: Document 06/25/20 10:33 [facility] (Rec: 06/25/20 11:47 [facility] [id number]) Hip Strength Hip Manual Muscle Testing Left Flexion (L2) 4- Good- Extension (S1) 3+ Fair+ Abduction 4 Good Adduction 4- Good- External Rotation 4 Good Internal Rotation 4+ Good+ Right Flexion (L2) 4- Good- Extension (S1) 3+ Fair+ Abduction 4 Good Adduction 4 Good External Rotation 4- Good- Internal Rotation 4 Good Knee Strength Knee Manual Muscle Testing Right Flexion (S2) 4+ Good+ Extension (L3) 5 Normal Left Flexion (S2) 4+ Good+ Extension (L3) 5 Normal Ankle/Foot Strength Ankle and Foot Manual Muscle Testing Right Dorsiflexion (L4) 4- Good- Plantarflexion (S1) 4 Good Inversion 3+ Fair+ Eversion (S1) 4 Good Comments pain w/range Left Dorsiflexion (L4) 5 Normal Plantarflexion (S1) 5 Normal Inversion 5 Normal Eversion (S1) 5 Normal Comments seated PF testing PT-OP-Q Treatments Start: 02/14/20 08:08 Freq: Status: Active Protocol: Document 07/23/20 12:59 [facility] (Rec: 07/23/20 13:48 [facility] [id number]) Cardio Equipment Recumbent Stepper (Sci-Fit) Duration (Minutes) 10 Resistance 1.5 Seat Position 11 Other verbal and manual cues for LE alignment, core activation Therapeutic Exercises Sitting Exercises trunk extension Resistance L2 TB Reps/Minutes 10x crunch Resistance L1 TB Reps/Minutes 20x Gait Training Gait Activity Step-ups/downs Description curb simulation Device Used single point cane Distance/Duration 10x Treatment Focus safety Comments 3 and 4 Manual Therapy Treatment Soft Tissue Mobilization glutes Body Location R lat Mobilization Type Rolling Intensity/Depth Moderate Body Position Sidelying right lumbar paraspinals Body Location gloria paraspinals & right QL into sacrum Mobilization Type Myofascial Release,Rolling, Other Intensity/Depth Moderate Body Position Sidelying Comments Reported decrease in pain, palpable decrease in soft tissue tension right piriformis Body Location piriformi & glutes Mobilization Type Myofascial Release,Sustained Pressure,Trigger Point Release Intensity/Depth Moderate Body Position left sidelying PT-OP-R Modalities Start: 02/14/20 08:08 Freq: Status: Active Protocol: Document 07/18/20 09:46 [facility] (Rec: 07/18/20 12:57 [facility] [id number]) Hot Pack/Cold Pack Treatment Hot Pack Location lumbosacral spine Patient Position Hooklying Treatment Duration (minutes) 15 Patient Tolerance Good PT-OP-T Assessment and Plan Start: 02/14/20 08:08 Freq: Status: Active Protocol: Document 07/23/20 12:59 [facility] (Rec: 07/23/20 13:48 [facility] [id number]) Physical Therapy Assessment Goals Five Shelter Goal (LTG) Pt will be able to step up/ down a curb confidently w/o outside support. LTG Duration 08/25/20 Four Impairment pain Wildland Firefighter Goal (LTG) Pt will be able to maintain inc activity with pain level at no greater than 2/10 for mult weeks at a time. LTG Duration 08/25/20 Three Impairment strength Short Term Goal (STG) Pt will be indep with HEP and have appropriate tools to cont at home STG Duration 07/25/20 Wildland Firefighter Goal (LTG) Pt will improve hip MMT grade by at least 1 MMT in all planes to improve strength in order to improve ease of mobility LTG Duration 08/25/20 Two Impairment LPM Short Term Goal (STG) Patient able to ascend and descend 4 stairs with alternating pattern with minimal to no pain 03/14/20: goal met STG Duration MET Shelter Goal (LTG) Pt will show imrpoved core stability by scoring at least 3/5 on LPM in all planes in order to improve stability in yard LTG Duration 08/25/20 One Impairment balance Short Term Goal (STG) Pt will improve DGI score to at least 20 to show dec chance of falling. STG Duration 07/25/20 Wildland Firefighter Goal (LTG) pt will improve FGA score to at least 20 to show dec risk for falls LTG Duration 08/25/20 Assessment Summary Assessment Increase in pain s/p fall at home, treatment modified. Increased muscle tension piriformis, lumbar paraspinals , glutes. Ended with ice per patient request, has been using heat at home. Physical Therapy Plan Frequency and Duration Frequency of Treatment 1-2x/week Duration of Treatment 2 months Plan of Care Start Date 06/25/20 Plan of Care End Date 08/25/20 Therapeutic Interventions Therapeutic Interventions Aquatic Therapy,Balance Training,Gait Training,Home Exercise Program,Joint Mobilizations,Manual Therapy, Neuromuscular Re-education, Patient/Caregiver Education, Self-Care/Home Management,Soft Tissue Mobilization,Taping, Therapeutic Activities, Therapeutic Exercises Modalities Cold Pack/Ice Massage,Electric Stimulation,Hot Packs, Infrared Therapy,Ultrasound Next Visit Focus/Plan Next Note Type Treatment Note Next Visit Plan Progression of therapeutic exercises as tolerated to improve balance and gait, core strength.
--- NOTE | 2020-07-25 15:45 | PT.OTN ---
Current Diagnoses Other chronic pain (07/25/20) Pain in right hip (07/25/20) Spinal stenosis, lumbar region without neurogenic claudication (07/25/20) Spinal stenosis, lumbar region with neurogenic claudication (07/25/20) Low back pain (07/25/20) Other muscle spasm (07/25/20) Difficulty in walking, not elsewhere classified (07/25/20) Weakness (07/25/20) Physical Therapy Treatment Note PT-OP-A Visit Information Start: 02/14/20 08:08 Freq: Status: Active Protocol: Document 07/25/20 14:39 [facility] (Rec: 07/25/20 15:45 [facility] [id number]) Out-Patient Physical Therapy Visit Information Visit Information Visit Type Treatment Note Visit Start Time 14:36 Visit Stop Time 15:25 Total Visit Minutes 49 Visit Number 21 Number of PASTRY COOK HELPER Visits 0 PT-OP-B Current Condition Start: 02/14/20 08:08 Freq: Status: Active Protocol: Document 07/02/20 08:11 SAK (Rec: 07/02/20 09:02 SAK [id number]) Current Condition History of Current Condition Current Complaints R LB History of Current Condition 06/25- Pt reports she has hip pain since May. SHe had a Xray and MD said hip is fine. Hip pain started clearing up until yesterday when she had a little bit after painting 4 days. Pt MD recommended that she sees a surgeon d/t concern for cauda equina. She has a video conference w/MD neurosurgeon. Her current MD thinks it is stenosis at L3-4. Pt has been doing her exercises from prior therapy daily and her rehab physician MD said he was amazed at how strong she is. Pt just saw Dr. Levin and she just had an injection on R side d/t nerve impingement and her charcot foot is getting worse. Pt is unsure if she needs to be here but her rehab physician wants her to do PT again. She is back on arthritis medicine d/t hands swelling and ached when she went off it. They still don't know if its sero negative RA or something else. Back on prednisone and another appointment. Pt cannot walk more than a block d/t her foot pain. She cannot get in/out of the bath tub (has a jet tub). She tried the other day and had trouble getting out d/t stability at feet. She avoids heavy gardening anymore. She plants in pots instead. She cannot walk across grass without cane. Pt reports she is so afraid of falling and every day she feels like she almost falls especailly outside. Pt reports her exasterbation of back pain is much better since last bout of PT. Pt reports only a little aching in back & little pain in groin. Last night she had slight hip pain but last time before that she had hip pain was 7 days ago. from prior eval: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 States she got up from chair, felt excrutiating pain ( almost wrost pain ever had) in buttock left greater than right. States doctors think the pain coming from low back but she disagrees: I know what pain from my low back feels like. 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 Has been getting some better, can now sit, but pain persists and limits her activity. Has been seen in PT by this therapist previously and has been doing ther ex, ice, heat, using ball for self -massage. Reports hysicians wanting to refer patient to spinal surgeon due to MRI showing bulging disc at L34, but she refuses at this time. Pain worse with prolonged sitting on any surface. Because of pain can't ambulate on stairs with alternating pattern due to pain. Trying to walk. Hasn't been able to go the pool. Feels weak. Has been trying to change positions more frequently. Sleeps with a heating pad between her legs due to pubic pain. Has low back pain but states she feels more weak than painful in back. Also has peroneal tendonitis right ankle; was in a lace-up splint over past month, pain improved. Having insoles changed next week. Denies shooting pain down leg or any giving way of legs. Has EMG next week at due to persistent numbness right LE, across ankle into big toe that she has had since spinal surgery. Prior Treatments and Tests Mult bouts of PT PT-OP-C Subjective Start: 02/14/20 08:08 Freq: Status: Active Protocol: Document 07/25/20 14:39 [facility] (Rec: 07/25/20 15:45 [facility] [id number]) OP-PT Subjective Patient Comments Patient Comments Pt reports she did okay after last session. LAst night she was sore right at her waist. No sciatica and hip pain comes /goes. She took it easy yesterday PT-OP-G Mobility & Gait Start: 02/14/20 08:08 Freq: Status: Active Protocol: Document 06/25/20 10:33 [facility] (Rec: 06/25/20 11:47 [facility] [id number]) OP Gait Assessment Comments Gait Comments amb with dec push off and lat leaning with very slow speed Stair Climbing Evaluation Comments Stair Climbing Comments Step to w/R leading up w/B rails, step to down w/B rails w/R leading and turned sideways slightly PT-OP-H Neuro Start: 02/14/20 08:08 Freq: Status: Active Protocol: Document 02/14/20 11:13 SAK (Rec: 02/14/20 11:56 SAK [id number]) Sensation Evaluation Gross Sensation Gross Sensation Right LE Impaired Sensation Description Numbness Dermatome Impairments L5 PT-OP-J Posture/Palpation/Skin Start: 02/14/20 08:08 Freq: Status: Active Protocol: Document 06/25/20 10:33 [facility] (Rec: 06/25/20 11:47 [facility] [id number]) Posture Evaluation [place] Postural Classification System Lumbar Protective Mechanism Left AP 1 Lumbar Protective Mechanism Right AP 0 Lumbar Protective Mechanism Left PA 2 Lumbar Protective Mechanism Right PA 0 PT-OP-K Range of Motion Start: 02/14/20 08:08 Freq: Status: Active Protocol: Document 02/14/20 11:13 SAK (Rec: 02/14/20 11:56 SAK [id number]) Lumbar Spine Range of Motion Lumbar Spine Active Comments mild to mod decrease all motions but reports minimal pain LB or buttock Hip Goniometric Range of Motion Hip right passive Flexion w/Knee Flexed 120 Straight Leg Raise 65 Extension 0 Internal Rotation 30 External Rotation 55 Left passive Flexion w/Knee Flexed 110 Straight Leg Raise 70 Extension 0 Internal Rotation 25 External Rotation 60 Right Active Straight Leg Raise 55 Left Active Straight Leg Raise 60 Hip ROM Limitations Hip ROM Limitations Soft Tissue Tightness,Muscle Weakness,Pain Knee Goniometric Range of Motion Knee gloria Knee ROM WFL Yes Ankle and Foot Goniometric Range of Motion Ankle and Foot Right Active Ankle/Foot ROM WFL No Dorsiflexion with Knee Flexed 8 Dorsiflexion with Knee Extended 4 Left Ankle/Foot ROM WFL No Dorsiflexion with Knee Flexed 5 Dorsiflexion with Knee Extended 3 PT-OP-L Special Tests Start: 02/14/20 08:08 Freq: Status: Active Protocol: Document 02/14/20 11:13 [facility] (Rec: 02/14/20 11:56 [facility] [id number]) Special Tests Lumbar Spine Special Tests Josh Test Results positive for muscle tightness Standing Flexion Test Results negative Slump Test Results negative gloria Stork Test Test Results unable to tolerate Straight Leg Raise Test Results positive only for muscle tightness Hip Special Tests Straight Leg Raise Test Results positive for muscle tightness only Trendelenberg Test Results positive for muscle weakness left Piriformis Test Results positive left PT-OP-M Strength Start: 02/14/20 08:08 Freq: Status: Active Protocol: Document 06/25/20 10:33 [facility] (Rec: 06/25/20 11:47 [facility] [id number]) Hip Strength Hip Manual Muscle Testing Left Flexion (L2) 4- Good- Extension (S1) 3+ Fair+ Abduction 4 Good Adduction 4- Good- External Rotation 4 Good Internal Rotation 4+ Good+ Right Flexion (L2) 4- Good- Extension (S1) 3+ Fair+ Abduction 4 Good Adduction 4 Good External Rotation 4- Good- Internal Rotation 4 Good Knee Strength Knee Manual Muscle Testing Right Flexion (S2) 4+ Good+ Extension (L3) 5 Normal Left Flexion (S2) 4+ Good+ Extension (L3) 5 Normal Ankle/Foot Strength Ankle and Foot Manual Muscle Testing Right Dorsiflexion (L4) 4- Good- Plantarflexion (S1) 4 Good Inversion 3+ Fair+ Eversion (S1) 4 Good Comments pain w/range Left Dorsiflexion (L4) 5 Normal Plantarflexion (S1) 5 Normal Inversion 5 Normal Eversion (S1) 5 Normal Comments seated PF testing PT-OP-Q Treatments Start: 02/14/20 08:08 Freq: Status: Active Protocol: Document 07/25/20 14:39 [facility] (Rec: 07/25/20 15:45 [facility] [id number]) Cardio Equipment Recumbent Stepper (Sci-Fit) Duration (Minutes) 10 Resistance 1.5 Seat Position 11 Other verbal and manual cues for LE alignment, core activation Therapeutic Exercises Sitting Exercises 4 Sitting Exercise Name traction facilition for glute activation R Gait Training Gait Activity 2 Description curb Distance/Duration 10 min Comments outside curb working on progressive height , strating at 1 in height. Found best to step down w/RLE w/sidestep w/ cane in RUE and did step up w/ RLE and cane Manual Therapy Treatment Soft Tissue Mobilization glutes Body Location R lat and sup along w/ piriformis Mobilization Type Rolling Intensity/Depth Moderate Body Position Sidelying PT-OP-R Modalities Start: 02/14/20 08:08 Freq: Status: Active Protocol: Document 07/25/20 14:39 [facility] (Rec: 07/25/20 15:45 [facility] [id number]) Hot Pack/Cold Pack Treatment Cold Pack Location right hiip/LB Patient Position Sidelying Treatment Duration (minutes) 10 PT-OP-T Assessment and Plan Start: 02/14/20 08:08 Freq: Status: Active Protocol: Document 07/25/20 14:39 [facility] (Rec: 07/25/20 15:45 [facility] [id number]) Physical Therapy Assessment Goals Five Long-Term Goal (LTG) Pt will be able to step up/ down a curb confidently w/o outside support. LTG Duration 08/25/20 Four Impairment pain Long-Term Goal (LTG) Pt will be able to maintain inc activity with pain level at no greater than 2/10 for mult weeks at a time. LTG Duration 08/25/20 Three Impairment strength Short Term Goal (STG) Pt will be indep with HEP and have appropriate tools to cont at home STG Duration 07/25/20 Long-Term Goal (LTG) Pt will improve hip MMT grade by at least 1 MMT in all planes to improve strength in order to improve ease of mobility LTG Duration 08/25/20 Two Impairment LPM Short Term Goal (STG) Patient able to ascend and descend 4 stairs with alternating pattern with minimal to no pain 03/14/20: goal met STG Duration MET Unit Aide Goal (LTG) Pt will show imrpoved core stability by scoring at least 3/5 on LPM in all planes in order to improve stability in yard LTG Duration 08/25/20 One Impairment balance Short Term Goal (STG) Pt will improve DGI score to at least 20 to show dec chance of falling. STG Duration 07/25/20 Unit Aide Goal (LTG) pt will improve FGA score to at least 20 to show dec risk for falls LTG Duration 08/25/20 Assessment Summary Assessment Pt had significant trigger points into glute today which improved some with treatment. She was encouraged to tennis ball at home. She does not feel stable going fwd down curb likely d/t dec ankle ROM B which d/t her limited DF, she is unable to do fwd step down. When educated that it was fine to go side step down, she did very well and showed more contorl and comfort. Physical Therapy Plan Frequency and Duration Frequency of Treatment 1-2x/week Duration of Treatment 2 months Plan of Care Start Date 06/25/20 Plan of Care End Date 08/25/20 Next Visit Focus/Plan Next Note Type Treatment Note Next Visit Plan Progression of therapeutic exercises as tolerated to improve balance and gait, core strength.
--- NOTE | 2020-07-30 17:16 | PT.OTN ---
Current Diagnoses Other chronic pain (07/30/20) Pain in right hip (07/30/20) Spinal stenosis, lumbar region without neurogenic claudication (07/30/20) Spinal stenosis, lumbar region with neurogenic claudication (07/30/20) Low back pain (07/30/20) Other muscle spasm (07/30/20) Difficulty in walking, not elsewhere classified (07/30/20) Weakness (07/30/20) Physical Therapy Treatment Note PT-OP-A Visit Information Start: 02/14/20 08:08 Freq: Status: Active Protocol: Document 07/30/20 09:54 SAK (Rec: 07/30/20 10:24 SAK [id number]) Out-Patient Physical Therapy Visit Information Visit Information Visit Type Treatment Note Visit Start Time 09:50 Visit Stop Time 10:45 Total Visit Minutes 55 Visit Number 22 Number of MORTGAGE COORDINATOR Visits 0 PT-OP-B Current Condition Start: 02/14/20 08:08 Freq: Status: Active Protocol: Document 07/02/20 08:11 SAK (Rec: 07/02/20 09:02 SAK [id number]) Current Condition History of Current Condition Current Complaints R LB History of Current Condition 06/25- Pt reports she has hip pain since May. SHe had a Xray and MD said hip is fine. Hip pain started clearing up until yesterday when she had a little bit after painting 4 days. Pt MD recommended that she sees a surgeon d/t concern for cauda equina. She has a video conference w/MD neurosurgeon. Her current MD thinks it is stenosis at L3-4. Pt has been doing her exercises from prior therapy daily and her rehabilitation case coordinator MD said he was amazed at how strong she is. Pt just saw Dr. Levin and she just had an injection on R side d/t nerve impingement and her charcot foot is getting worse. Pt is unsure if she needs to be here but her rehabilitation case coordinator wants her to do PT again. She is back on arthritis medicine d/t hands swelling and ached when she went off it. They still don't know if its sero negative RA or something else. Back on prednisone and another appointment. Pt cannot walk more than a block d/t her foot pain. She cannot get in/out of the bath tub (has a jet tub). She tried the other day and had trouble getting out d/t stability at feet. She avoids heavy gardening anymore. She plants in pots instead. She cannot walk across grass without cane. Pt reports she is so afraid of falling and every day she feels like she almost falls especailly outside. Pt reports her exasterbation of back pain is much better since last bout of PT. Pt reports only a little aching in back & little pain in groin. Last night she had slight hip pain but last time before that she had hip pain was 7 days ago. from prior eval: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 States she got up from chair, felt excrutiating pain ( almost wrost pain ever had) in buttock left greater than right. States doctors think the pain coming from low back but she disagrees: I know what pain from my low back feels like. 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 Has been getting some better, can now sit, but pain persists and limits her activity. Has been seen in PT by this therapist previously and has been doing ther ex, ice, heat, using ball for self -massage. Reports hysicians wanting to refer patient to spinal surgeon due to MRI showing bulging disc at L34, but she refuses at this time. Pain worse with prolonged sitting on any surface. Because of pain can't ambulate on stairs with alternating pattern due to pain. Trying to walk. Hasn't been able to go the pool. Feels weak. Has been trying to change positions more frequently. Sleeps with a heating pad between her legs due to pubic pain. Has low back pain but states she feels more weak than painful in back. Also has peroneal tendonitis right ankle; was in a lace-up splint over past month, pain improved. Having insoles changed next week. Denies shooting pain down leg or any giving way of legs. Has EMG next week at due to persistent numbness right LE, across ankle into big toe that she has had since spinal surgery. Prior Treatments and Tests Mult bouts of PT PT-OP-C Subjective Start: 02/14/20 08:08 Freq: Status: Active Protocol: Document 07/30/20 09:54 [facility] (Rec: 07/30/20 10:24 SAK [id number]) OP-PT Subjective Patient Comments Patient Comments Right low back, side, and hip continues to be bothersome. Considering asking for injection to rule in or out involvement at L34. [place] curb ambulation helpful. Wants to work on glueals more. Still hasn't been able to make it to the pool due to arm not healed from laceration. PT-OP-G Mobility & Gait Start: 02/14/20 08:08 Freq: Status: Active Protocol: Document 06/25/20 10:33 [facility] (Rec: 06/25/20 11:47 [facility] [id number]) OP Gait Assessment Comments Gait Comments amb with dec push off and lat leaning with very slow speed Stair Climbing Evaluation Comments Stair Climbing Comments Step to w/R leading up w/B rails, step to down w/B rails w/R leading and turned sideways slightly PT-OP-H Neuro Start: 02/14/20 08:08 Freq: Status: Active Protocol: Document 02/14/20 11:13 [facility] (Rec: 02/14/20 11:56 [facility] [id number]) Sensation Evaluation Gross Sensation Gross Sensation Right LE Impaired Sensation Description Numbness Dermatome Impairments L5 PT-OP-J Posture/Palpation/Skin Start: 02/14/20 08:08 Freq: Status: Active Protocol: Document 06/25/20 10:33 [facility] (Rec: 06/25/20 11:47 [facility] [id number]) Posture Evaluation Saúl Postural Classification System Lumbar Protective Mechanism Left AP 1 Lumbar Protective Mechanism Right AP 0 Lumbar Protective Mechanism Left PA 2 Lumbar Protective Mechanism Right PA 0 PT-OP-K Range of Motion Start: 02/14/20 08:08 Freq: Status: Active Protocol: Document 02/14/20 11:13 [facility] (Rec: 02/14/20 11:56 [facility] [id number]) Lumbar Spine Range of Motion Lumbar Spine Active Comments mild to mod decrease all motions but reports minimal pain LB or buttock Hip Goniometric Range of Motion Hip right passive Flexion w/Knee Flexed 120 Straight Leg Raise 65 Extension 0 Internal Rotation 30 External Rotation 55 Left passive Flexion w/Knee Flexed 110 Straight Leg Raise 70 Extension 0 Internal Rotation 25 External Rotation 60 Right Active Straight Leg Raise 55 Left Active Straight Leg Raise 60 Hip ROM Limitations Hip ROM Limitations Soft Tissue Tightness,Muscle Weakness,Pain Knee Goniometric Range of Motion Knee gloria Knee ROM WFL Yes Ankle and Foot Goniometric Range of Motion Ankle and Foot Right Active Ankle/Foot ROM WFL No Dorsiflexion with Knee Flexed 8 Dorsiflexion with Knee Extended 4 Left Ankle/Foot ROM WFL No Dorsiflexion with Knee Flexed 5 Dorsiflexion with Knee Extended 3 PT-OP-L Special Tests Start: 02/14/20 08:08 Freq: Status: Active Protocol: Document 02/14/20 11:13 [facility] (Rec: 02/14/20 11:56 [facility] [id number]) Special Tests Lumbar Spine Special Tests Josh Test Results positive for muscle tightness Standing Flexion Test Results negative Slump Test Results negative gloria Stork Test Test Results unable to tolerate Straight Leg Raise Test Results positive only for muscle tightness Hip Special Tests Straight Leg Raise Test Results positive for muscle tightness only Trendelenberg Test Results positive for muscle weakness left Piriformis Test Results positive left PT-OP-M Strength Start: 02/14/20 08:08 Freq: Status: Active Protocol: Document 06/25/20 10:33 [facility] (Rec: 06/25/20 11:47 [facility] [id number]) Hip Strength Hip Manual Muscle Testing Left Flexion (L2) 4- Good- Extension (S1) 3+ Fair+ Abduction 4 Good Adduction 4- Good- External Rotation 4 Good Internal Rotation 4+ Good+ Right Flexion (L2) 4- Good- Extension (S1) 3+ Fair+ Abduction 4 Good Adduction 4 Good External Rotation 4- Good- Internal Rotation 4 Good Knee Strength Knee Manual Muscle Testing Right Flexion (S2) 4+ Good+ Extension (L3) 5 Normal Left Flexion (S2) 4+ Good+ Extension (L3) 5 Normal Ankle/Foot Strength Ankle and Foot Manual Muscle Testing Right Dorsiflexion (L4) 4- Good- Plantarflexion (S1) 4 Good Inversion 3+ Fair+ Eversion (S1) 4 Good Comments pain w/range Left Dorsiflexion (L4) 5 Normal Plantarflexion (S1) 5 Normal Inversion 5 Normal Eversion (S1) 5 Normal Comments seated PF testing PT-OP-Q Treatments Start: 02/14/20 08:08 Freq: Status: Active Protocol: Document 07/30/20 09:54 [facility] (Rec: 07/30/20 10:24 [facility] [id number]) Cardio Equipment Recumbent Stepper (Sci-Fit) Duration (Minutes) 10 Resistance 1.6 Seat Position 12 Other verbal and manual cues for LE alignment, core activation Gait Training Gait Activity level gait Description device training with trekking poles Device Used bilateral cliniq.ly poles Level of Assistance CGA, cues for technique Distance/Duration 100', 50'x2 Treatment Focus technique, safety 2 Description curb Device Used [facility] Distance/Duration 10 min Comments outside curb working on progressive height , staring at 1 in height. Found best to step down w/RLE w/sidestep using trePublicateing poles Manual Therapy Treatment Soft Tissue Mobilization glutes Body Location R lat and sup along w/ piriformis Mobilization Type Rolling Intensity/Depth Moderate Body Position Sidelying right lumbar paraspinals Body Location gloria paraspinals & right QL into sacrum Mobilization Type Myofascial Release,Rolling, Other Intensity/Depth Moderate Body Position Sidelying Comments Reported decrease in pain, palpable decrease in soft tissue tension right piriformis Body Location piriformi & glutes Mobilization Type Myofascial Release,Sustained Pressure,Trigger Point Release Intensity/Depth Moderate Body Position left sidelying PT-OP-R Modalities Start: 02/14/20 08:08 Freq: Status: Active Protocol: Document 07/30/20 09:54 [facility] (Rec: 07/31/20 17:15 [facility] [id number]) Hot Pack/Cold Pack Treatment Cold Pack Location right hip/LB Patient Position Sidelying Treatment Duration (minutes) 10 PT-OP-T Assessment and Plan Start: 02/14/20 08:08 Freq: Status: Active Protocol: Document 07/30/20 09:54 [facility] (Rec: 07/30/20 10:24 [facility] [id number]) Physical Therapy Assessment Goals Five Child Center Assistant Goal (LTG) Pt will be able to step up/ down a curb confidently w/o outside support. LTG Duration 08/25/20 Four Impairment pain Mcfp Goal (LTG) Pt will be able to maintain inc activity with pain level at no greater than 2/10 for mult weeks at a time. LTG Duration 08/25/20 Three Impairment strength Short Term Goal (STG) Pt will be indep with HEP and have appropriate tools to cont at home STG Duration 07/25/20 Mcfp Goal (LTG) Pt will improve hip MMT grade by at least 1 MMT in all planes to improve strength in order to improve ease of mobility LTG Duration 08/25/20 Two Impairment LPM Short Term Goal (STG) Patient able to ascend and descend 4 stairs with alternating pattern with minimal to no pain 03/14/20: goal met STG Duration MET Mcfp Goal (LTG) Pt will show imrpoved core stability by scoring at least 3/5 on LPM in all planes in order to improve stability in yard LTG Duration 08/25/20 One Impairment balance Short Term Goal (STG) Pt will improve DGI score to at least 20 to show dec chance of falling. STG Duration 07/25/20 Child Center Assistant Goal (LTG) pt will improve FGA score to at least 20 to show dec risk for falls LTG Duration 08/25/20 Assessment Summary Assessment Patient demonstrated good understanding of gait with trekking poles, improved symmetry with gait, decreased pain; feel it is best option for device when taking walks as that is still very llimited by pain. Physical Therapy Plan Frequency and Duration Frequency of Treatment 1-2x/week Duration of Treatment 2 months Plan of Care Start Date 06/25/20 Plan of Care End Date 08/25/20 Therapeutic Interventions Therapeutic Interventions Aquatic Therapy,Balance Training,Gait Training,Home Exercise Program,Joint Mobilizations,Manual Therapy, Neuromuscular Re-education, Patient/Caregiver Education, Self-Care/Home Management,Soft Tissue Mobilization,Taping, Therapeutic Activities, Therapeutic Exercises Modalities Cold Pack/Ice Massage,Electric Stimulation,Hot Packs, Infrared Therapy,Ultrasound Next Visit Focus/Plan Next Note Type Treatment Note Next Visit Plan Progression of therapeutic exercises as tolerated to improve balance and gait, core strength.
--- NOTE | 2020-08-01 11:41 | PT.OTN ---
Current Diagnoses Other chronic pain (07/30/20) Pain in right hip (07/30/20) Spinal stenosis, lumbar region without neurogenic claudication (07/30/20) Spinal stenosis, lumbar region with neurogenic claudication (07/30/20) Low back pain (07/30/20) Other muscle spasm (07/30/20) Difficulty in walking, not elsewhere classified (07/30/20) Weakness (07/30/20) Physical Therapy Treatment Note PT-OP-A Visit Information Start: 02/14/20 08:08 Freq: Status: Active Protocol: Document 08/01/20 09:48 SAK (Rec: 08/01/20 10:12 SAK [id number]) Out-Patient Physical Therapy Visit Information Visit Information Visit Type Treatment Note Visit Start Time 09:45 Visit Stop Time 10:45 Total Visit Minutes 55 Visit Number 23 Number of MEDIA/INSTRUCTIONAL DESIGNER Visits 0 PT-OP-B Current Condition Start: 02/14/20 08:08 Freq: Status: Active Protocol: Document 07/02/20 08:11 SAK (Rec: 07/02/20 09:02 SAK [id number]) Current Condition History of Current Condition Current Complaints R LB History of Current Condition 06/25- Pt reports she has hip pain since May. SHe had a Xray and MD said hip is fine. Hip pain started clearing up until yesterday when she had a little bit after painting 4 days. Pt MD recommended that she sees a surgeon d/t concern for cauda equina. She has a video conference w/MD neurosurgeon. Her current MD thinks it is stenosis at L3-4. Pt has been doing her exercises from prior therapy daily and her director of pediatric rehabilitation MD said he was amazed at how strong she is. Pt just saw Dr. Levin and she just had an injection on R side d/t nerve impingement and her charcot foot is getting worse. Pt is unsure if she needs to be here but her director of pediatric rehabilitation wants her to do PT again. She is back on arthritis medicine d/t hands swelling and ached when she went off it. They still don't know if its sero negative RA or something else. Back on prednisone and another appointment. Pt cannot walk more than a block d/t her foot pain. She cannot get in/out of the bath tub (has a jet tub). She tried the other day and had trouble getting out d/t stability at feet. She avoids heavy gardening anymore. She plants in pots instead. She cannot walk across grass without cane. Pt reports she is so afraid of falling and every day she feels like she almost falls especailly outside. Pt reports her exasterbation of back pain is much better since last bout of PT. Pt reports only a little aching in back & little pain in groin. Last night she had slight hip pain but last time before that she had hip pain was 7 days ago. from prior eval: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 States she got up from chair, felt excrutiating pain ( almost wrost pain ever had) in buttock left greater than right. States doctors think the pain coming from low back but she disagrees: I know what pain from my low back feels like. 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 Has been getting some better, can now sit, but pain persists and limits her activity. Has been seen in PT by this therapist previously and has been doing ther ex, ice, heat, using ball for self -massage. Reports hysicians wanting to refer patient to spinal surgeon due to MRI showing bulging disc at L34, but she refuses at this time. Pain worse with prolonged sitting on any surface. Because of pain can't ambulate on stairs with alternating pattern due to pain. Trying to walk. Hasn't been able to go the pool. Feels weak. Has been trying to change positions more frequently. Sleeps with a heating pad between her legs due to pubic pain. Has low back pain but states she feels more weak than painful in back. Also has peroneal tendonitis right ankle; was in a lace-up splint over past month, pain improved. Having insoles changed next week. Denies shooting pain down leg or any giving way of legs. Has EMG next week at due to persistent numbness right LE, across ankle into big toe that she has had since spinal surgery. Prior Treatments and Tests Mult bouts of PT PT-OP-C Subjective Start: 02/14/20 08:08 Freq: Status: Active Protocol: Document 08/01/20 09:48 [facility] (Rec: 08/01/20 10:12 SAK [id number]) OP-PT Subjective Patient Comments Patient Comments Patient going to see new orthopedist at local practice, considering injection. Arm almost healed to allow her to get in the pool for aquatic exercise. Hasn't been able to try new medication for RA yet due to availability of med. Hurting more today, possibly due to prolonged sitting yesterday with Zoom meetings as well as no exercise due to in the family. PT-OP-G Mobility & Gait Start: 02/14/20 08:08 Freq: Status: Active Protocol: Document 06/25/20 10:33 [facility] (Rec: 06/25/20 11:47 [facility] [id number]) OP Gait Assessment Comments Gait Comments amb with dec push off and lat leaning with very slow speed Stair Climbing Evaluation Comments Stair Climbing Comments Step to w/R leading up w/B rails, step to down w/B rails w/R leading and turned sideways slightly PT-OP-H Neuro Start: 02/14/20 08:08 Freq: Status: Active Protocol: Document 02/14/20 11:13 [facility] (Rec: 02/14/20 11:56 [facility] [id number]) Sensation Evaluation Gross Sensation Gross Sensation Right LE Impaired Sensation Description Numbness Dermatome Impairments L5 PT-OP-J Posture/Palpation/Skin Start: 02/14/20 08:08 Freq: Status: Active Protocol: Document 06/25/20 10:33 [facility] (Rec: 06/25/20 11:47 [facility] [id number]) Posture Evaluation Saúl Postural Classification System Lumbar Protective Mechanism Left AP 1 Lumbar Protective Mechanism Right AP 0 Lumbar Protective Mechanism Left PA 2 Lumbar Protective Mechanism Right PA 0 PT-OP-K Range of Motion Start: 02/14/20 08:08 Freq: Status: Active Protocol: Document 02/14/20 11:13 [facility]AK (Rec: 02/14/20 11:56 [facility] [id number]) Lumbar Spine Range of Motion Lumbar Spine Active Comments mild to mod decrease all motions but reports minimal pain LB or buttock Hip Goniometric Range of Motion Hip right passive Flexion w/Knee Flexed 120 Straight Leg Raise 65 Extension 0 Internal Rotation 30 External Rotation 55 Left passive Flexion w/Knee Flexed 110 Straight Leg Raise 70 Extension 0 Internal Rotation 25 External Rotation 60 Right Active Straight Leg Raise 55 Left Active Straight Leg Raise 60 Hip ROM Limitations Hip ROM Limitations Soft Tissue Tightness,Muscle Weakness,Pain Knee Goniometric Range of Motion Knee gloria Knee ROM WFL Yes Ankle and Foot Goniometric Range of Motion Ankle and Foot Right Active Ankle/Foot ROM WFL No Dorsiflexion with Knee Flexed 8 Dorsiflexion with Knee Extended 4 Left Ankle/Foot ROM WFL No Dorsiflexion with Knee Flexed 5 Dorsiflexion with Knee Extended 3 PT-OP-L Special Tests Start: 02/14/20 08:08 Freq: Status: Active Protocol: Document 02/14/20 11:13 [facility]AK (Rec: 02/14/20 11:56 [facility] [id number]) Special Tests Lumbar Spine Special Tests Josh Test Results positive for muscle tightness Standing Flexion Test Results negative Slump Test Results negative gloria Stork Test Test Results unable to tolerate Straight Leg Raise Test Results positive only for muscle tightness Hip Special Tests Straight Leg Raise Test Results positive for muscle tightness only Trendelenberg Test Results positive for muscle weakness left Piriformis Test Results positive left PT-OP-M Strength Start: 02/14/20 08:08 Freq: Status: Active Protocol: Document 06/25/20 10:33 [facility] (Rec: 06/25/20 11:47 [facility] [id number]) Hip Strength Hip Manual Muscle Testing Left Flexion (L2) 4- Good- Extension (S1) 3+ Fair+ Abduction 4 Good Adduction 4- Good- External Rotation 4 Good Internal Rotation 4+ Good+ Right Flexion (L2) 4- Good- Extension (S1) 3+ Fair+ Abduction 4 Good Adduction 4 Good External Rotation 4- Good- Internal Rotation 4 Good Knee Strength Knee Manual Muscle Testing Right Flexion (S2) 4+ Good+ Extension (L3) 5 Normal Left Flexion (S2) 4+ Good+ Extension (L3) 5 Normal Ankle/Foot Strength Ankle and Foot Manual Muscle Testing Right Dorsiflexion (L4) 4- Good- Plantarflexion (S1) 4 Good Inversion 3+ Fair+ Eversion (S1) 4 Good Comments pain w/range Left Dorsiflexion (L4) 5 Normal Plantarflexion (S1) 5 Normal Inversion 5 Normal Eversion (S1) 5 Normal Comments seated PF testing PT-OP-Q Treatments Start: 02/14/20 08:08 Freq: Status: Active Protocol: Document 08/01/20 09:48 [facility]AK (Rec: 08/01/20 10:12 [facility] [id number]) Cardio Equipment Recumbent Stepper (Sci-Fit) Duration (Minutes) 10 Resistance 1.6 Seat Position 12 Other verbal and manual cues for LE alignment, core activation Gait Training Gait Activity level gait Description device training with trekking poles Device Used bilateral trekking poles Level of Assistance CGA, cues for technique Distance/Duration 100', 50'x2 Treatment Focus technique,safety including sitting and standing up with 2 poles in one hand Manual Therapy Treatment Soft Tissue Mobilization glutes Body Location R lat and sup along w/ piriformis Mobilization Type Rolling Intensity/Depth Moderate Body Position Sidelying right lumbar paraspinals Body Location gloria paraspinals & right QL into sacrum Mobilization Type Myofascial Release,Rolling, Other Intensity/Depth Moderate Body Position Sidelying Comments Reported decrease in pain, palpable decrease in soft tissue tension right piriformis Body Location piriformi & glutes Mobilization Type Myofascial Release,Sustained Pressure,Trigger Point Release Intensity/Depth Moderate Body Position left sidelying PT-OP-R Modalities Start: 02/14/20 08:08 Freq: Status: Active Protocol: Document 08/01/20 09:48 [facility] (Rec: 08/01/20 10:12 [facility] [id number]) Hot Pack/Cold Pack Treatment Cold Pack Location right hip/LB Patient Position Sidelying Treatment Duration (minutes) 10 PT-OP-T Assessment and Plan Start: 02/14/20 08:08 Freq: Status: Active Protocol: Document 08/01/20 09:48 [facility] (Rec: 08/01/20 10:12 [facility] [id number]) Physical Therapy Assessment Goals Five Pre K Teacher Goal (LTG) Pt will be able to step up/ down a curb confidently w/o outside support. LTG Duration 08/25/20 Four Impairment pain Detention Goal (LTG) Pt will be able to maintain inc activity with pain level at no greater than 2/10 for mult weeks at a time. LTG Duration 08/25/20 Three Impairment strength Short Term Goal (STG) Pt will be indep with HEP and have appropriate tools to cont at home STG Duration 07/25/20 Detention Goal (LTG) Pt will improve hip MMT grade by at least 1 MMT in all planes to improve strength in order to improve ease of mobility LTG Duration 08/25/20 Two Impairment LPM Short Term Goal (STG) Patient able to ascend and descend 4 stairs with alternating pattern with minimal to no pain 03/14/20: goal met STG Duration MET Detention Goal (LTG) Pt will show imrpoved core stability by scoring at least 3/5 on LPM in all planes in order to improve stability in yard LTG Duration 08/25/20 One Impairment balance Short Term Goal (STG) Pt will improve DGI score to at least 20 to show dec chance of falling. STG Duration 07/25/20 Detention Goal (LTG) pt will improve FGA score to at least 20 to show dec risk for falls LTG Duration 08/25/20 Assessment Summary Assessment Increased pain with prolonged sitting yesterday, reminded of self-care techniques to minimize pain with prolonged sitting to include stretching, use of tennis ball, ball squeezes, rest break supine 90 /90. Physical Therapy Plan Frequency and Duration Frequency of Treatment 1-2x/week Duration of Treatment 2 months Plan of Care Start Date 06/25/20 Plan of Care End Date 08/25/20 Therapeutic Interventions Therapeutic Interventions Aquatic Therapy,Balance Training,Gait Training,Home Exercise Program,Joint Mobilizations,Manual Therapy, Neuromuscular Re-education, Patient/Caregiver Education, Self-Care/Home Management,Soft Tissue Mobilization,Taping, Therapeutic Activities, Therapeutic Exercises Modalities Cold Pack/Ice Massage,Electric Stimulation,Hot Packs, Infrared Therapy,Ultrasound Next Visit Focus/Plan Next Note Type Treatment Note Next Visit Plan Progression of therapeutic exercises as tolerated to improve balance and gait, core strength. Patient to start aquatic exercise soon which should be very benficial for this patient.
--- NOTE | 2020-08-06 16:13 | PT.OTN ---
Current Diagnoses Other chronic pain (08/06/20) Pain in right hip (08/06/20) Spinal stenosis, lumbar region without neurogenic claudication (08/06/20) Spinal stenosis, lumbar region with neurogenic claudication (08/06/20) Low back pain (08/06/20) Other muscle spasm (08/06/20) Difficulty in walking, not elsewhere classified (08/06/20) Weakness (08/06/20) Physical Therapy Treatment Note PT-OP-A Visit Information Start: 02/14/20 08:08 Freq: Status: Active Protocol: Document 08/06/20 10:37 SAK (Rec: 08/06/20 11:16 SAK [id number]) Out-Patient Physical Therapy Visit Information Visit Information Visit Type Treatment Note Visit Start Time 10:30 Visit Stop Time 11:25 Total Visit Minutes 55 Visit Number 24 Number of PATIENT SAFETY ATTENDANT Visits 0 PT-OP-B Current Condition Start: 02/14/20 08:08 Freq: Status: Active Protocol: Document 07/02/20 08:11 SAK (Rec: 07/02/20 09:02 SAK [id number]) Current Condition History of Current Condition Current Complaints R LB History of Current Condition 06/25- Pt reports she has hip pain since May. SHe had a Xray and MD said hip is fine. Hip pain started clearing up until yesterday when she had a little bit after painting 4 days. Pt MD recommended that she sees a surgeon d/t concern for cauda equina. She has a video conference w/MD neurosurgeon. Her current MD thinks it is stenosis at L3-4. Pt has been doing her exercises from prior therapy daily and her director of rehabilitation MD said he was amazed at how strong she is. Pt just saw Dr. Levin and she just had an injection on R side d/t nerve impingement and her charcot foot is getting worse. Pt is unsure if she needs to be here but her director of rehabilitation wants her to do PT again. She is back on arthritis medicine d/t hands swelling and ached when she went off it. They still don't know if its sero negative RA or something else. Back on prednisone and another appointment. Pt cannot walk more than a block d/t her foot pain. She cannot get in/out of the bath tub (has a jet tub). She tried the other day and had trouble getting out d/t stability at feet. She avoids heavy gardening anymore. She plants in pots instead. She cannot walk across grass without cane. Pt reports she is so afraid of falling and every day she feels like she almost falls especailly outside. Pt reports her exasterbation of back pain is much better since last bout of PT. Pt reports only a little aching in back & little pain in groin. Last night she had slight hip pain but last time before that she had hip pain was 7 days ago. from prior eval: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 States she got up from chair, felt excrutiating pain ( almost wrost pain ever had) in buttock left greater than right. States doctors think the pain coming from low back but she disagrees: I know what pain from my low back feels like. 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 Has been getting some better, can now sit, but pain persists and limits her activity. Has been seen in PT by this therapist previously and has been doing ther ex, ice, heat, using ball for self -massage. Reports hysicians wanting to refer patient to spinal surgeon due to MRI showing bulging disc at L34, but she refuses at this time. Pain worse with prolonged sitting on any surface. Because of pain can't ambulate on stairs with alternating pattern due to pain. Trying to walk. Hasn't been able to go the pool. Feels weak. Has been trying to change positions more frequently. Sleeps with a heating pad between her legs due to pubic pain. Has low back pain but states she feels more weak than painful in back. Also has peroneal tendonitis right ankle; was in a lace-up splint over past month, pain improved. Having insoles changed next week. Denies shooting pain down leg or any giving way of legs. Has EMG next week at due to persistent numbness right LE, across ankle into big toe that she has had since spinal surgery. Prior Treatments and Tests Mult bouts of PT PT-OP-C Subjective Start: 02/14/20 08:08 Freq: Status: Active Protocol: Document 08/06/20 10:37 SAK (Rec: 08/06/20 11:16 SAK [id number]) OP-PT Subjective Patient Comments Patient Comments Reports stomache upset by resuming Plaquenil. Hip wasn' t sore over the weeknd, low back sore after doing yardwork yesterday. Brought her Duxterkking poles today for fit adjustment. PT-OP-G Mobility & Gait Start: 02/14/20 08:08 Freq: Status: Active Protocol: Document 06/25/20 10:33 [facility] (Rec: 06/25/20 11:47 [facility] [id number]) OP Gait Assessment Comments Gait Comments amb with dec push off and lat leaning with very slow speed Stair Climbing Evaluation Comments Stair Climbing Comments Step to w/R leading up w/B rails, step to down w/B rails w/R leading and turned sideways slightly PT-OP-H Neuro Start: 02/14/20 08:08 Freq: Status: Active Protocol: Document 02/14/20 11:13 [facility] (Rec: 02/14/20 11:56 [facility] [id number]) Sensation Evaluation Gross Sensation Gross Sensation Right LE Impaired Sensation Description Numbness Dermatome Impairments L5 PT-OP-J Posture/Palpation/Skin Start: 02/14/20 08:08 Freq: Status: Active Protocol: Document 06/25/20 10:33 [facility] (Rec: 06/25/20 11:47 [facility] [id number]) Posture Evaluation Saúl Postural Classification System Lumbar Protective Mechanism Left AP 1 Lumbar Protective Mechanism Right AP 0 Lumbar Protective Mechanism Left PA 2 Lumbar Protective Mechanism Right PA 0 PT-OP-K Range of Motion Start: 02/14/20 08:08 Freq: Status: Active Protocol: Document 02/14/20 11:13 SAK (Rec: 02/14/20 11:56 SAK [id number]) Lumbar Spine Range of Motion Lumbar Spine Active Comments mild to mod decrease all motions but reports minimal pain LB or buttock Hip Goniometric Range of Motion Hip right passive Flexion w/Knee Flexed 120 Straight Leg Raise 65 Extension 0 Internal Rotation 30 External Rotation 55 Left passive Flexion w/Knee Flexed 110 Straight Leg Raise 70 Extension 0 Internal Rotation 25 External Rotation 60 Right Active Straight Leg Raise 55 Left Active Straight Leg Raise 60 Hip ROM Limitations Hip ROM Limitations Soft Tissue Tightness,Muscle Weakness,Pain Knee Goniometric Range of Motion Knee gloria Knee ROM WFL Yes Ankle and Foot Goniometric Range of Motion Ankle and Foot Right Active Ankle/Foot ROM WFL No Dorsiflexion with Knee Flexed 8 Dorsiflexion with Knee Extended 4 Left Ankle/Foot ROM WFL No Dorsiflexion with Knee Flexed 5 Dorsiflexion with Knee Extended 3 PT-OP-L Special Tests Start: 02/14/20 08:08 Freq: Status: Active Protocol: Document 02/14/20 11:13 SAK (Rec: 02/14/20 11:56 SAK [id number]) Special Tests Lumbar Spine Special Tests Josh Test Results positive for muscle tightness Standing Flexion Test Results negative Slump Test Results negative gloria Stork Test Test Results unable to tolerate Straight Leg Raise Test Results positive only for muscle tightness Hip Special Tests Straight Leg Raise Test Results positive for muscle tightness only Trendelenberg Test Results positive for muscle weakness left Piriformis Test Results positive left PT-OP-M Strength Start: 02/14/20 08:08 Freq: Status: Active Protocol: Document 06/25/20 10:33 [facility] (Rec: 06/25/20 11:47 [facility] [id number]) Hip Strength Hip Manual Muscle Testing Left Flexion (L2) 4- Good- Extension (S1) 3+ Fair+ Abduction 4 Good Adduction 4- Good- External Rotation 4 Good Internal Rotation 4+ Good+ Right Flexion (L2) 4- Good- Extension (S1) 3+ Fair+ Abduction 4 Good Adduction 4 Good External Rotation 4- Good- Internal Rotation 4 Good Knee Strength Knee Manual Muscle Testing Right Flexion (S2) 4+ Good+ Extension (L3) 5 Normal Left Flexion (S2) 4+ Good+ Extension (L3) 5 Normal Ankle/Foot Strength Ankle and Foot Manual Muscle Testing Right Dorsiflexion (L4) 4- Good- Plantarflexion (S1) 4 Good Inversion 3+ Fair+ Eversion (S1) 4 Good Comments pain w/range Left Dorsiflexion (L4) 5 Normal Plantarflexion (S1) 5 Normal Inversion 5 Normal Eversion (S1) 5 Normal Comments seated PF testing PT-OP-Q Treatments Start: 02/14/20 08:08 Freq: Status: Active Protocol: Document 08/06/20 10:37 [facility]AK (Rec: 08/06/20 11:16 SAK [id number]) Cardio Equipment Recumbent Stepper (Sci-Fit) Duration (Minutes) 10 Resistance 2.0 Seat Position 12 Other verbal and manual cues for LE alignment, core activation Therapeutic Exercises Sitting Exercises HS stretch Reps/Minutes 2x ea side HC stretch Reps/Minutes 1x30 Comments closed chain Gait Training Gait Activity level gait Description device training with trekking poles Device Used bilateral trekking poles Level of Assistance CGA, cues for technique Distance/Duration 100', 50'x2 Treatment Focus technique,safety including sitting and standing up with 2 poles in one hand Comments curb practice different heights. Manual Therapy Treatment Soft Tissue Mobilization right lumbar paraspinals Body Location gloria paraspinals & right QL into sacrum Mobilization Type Myofascial Release,Rolling, Other Intensity/Depth Moderate Body Position Sidelying Comments Reported decrease in pain, palpable decrease in soft tissue tension right piriformis Body Location piriformi & glutes Mobilization Type Myofascial Release,Sustained Pressure,Trigger Point Release Intensity/Depth Moderate Body Position left sidelying PT-OP-R Modalities Start: 02/14/20 08:08 Freq: Status: Active Protocol: Document 08/06/20 10:37 [facility] (Rec: 08/06/20 11:16 [facility] [id number]) Hot Pack/Cold Pack Treatment Cold Pack Location right hip/LB Patient Position Sidelying Treatment Duration (minutes) 10 PT-OP-T Assessment and Plan Start: 02/14/20 08:08 Freq: Status: Active Protocol: Document 08/06/20 10:37 [facility] (Rec: 08/06/20 11:16 [facility] [id number]) Physical Therapy Assessment Goals Five Group Home Goal (LTG) Pt will be able to step up/ down a curb confidently w/o outside support. 08/06/20: goal achieved LTG Duration 08/25/20 Four Impairment pain Group Home Goal (LTG) Pt will be able to maintain inc activity with pain level at no greater than 2/10 for mult weeks at a time. 08/06/20: mostly achieved LTG Duration 08/25/20 Three Impairment strength Short Term Goal (STG) Pt will be indep with HEP and have appropriate tools to cont at home 08/06/20: goal achieved STG Duration 07/25/20 Group Home Goal (LTG) Pt will improve hip MMT grade by at least 1 MMT in all planes to improve strength in order to improve ease of mobility 08/06/20: goal achieved. Patient highly motivated with HEP and self-care. LTG Duration 08/25/20 Two Impairment LPM Short Term Goal (STG) Patient able to ascend and descend 4 stairs with alternating pattern with minimal to no pain 03/14/20: goal met STG Duration MET Group Home Goal (LTG) Pt will show imrpoved core stability by scoring at least 3/5 on LPM in all planes in order to improve stability in yard LTG Duration 08/25/20 One Impairment balance Short Term Goal (STG) Pt will improve DGI score to at least 20 to show dec chance of falling. STG Duration 07/25/20 Distillery Supervisor Goal (LTG) pt will improve FGA score to at least 20 to show dec risk for falls LTG Duration 08/25/20 Assessment Summary Assessment Patient has achieved her PT goals and is independent with HEP. She is independent in the use of trekking poles for gait including up and down curbs. Her pain is improved, demonstrates good understanding she will probably have some persistent pain due to the biomechanical changes resulting from ankle fusions. She plans to start auatic exercise soon which is the best tolerated exercise for her due to offloading of her joints. She continues to follow-up with her GP and orthopedica and rhematological specialists. Physical Therapy Plan Discharge Physical Therapy Discharge Reasons Goals Met
== END 2020-08-07 07:31 | disposition home or self-care (01) ==
LOC: PHYS 10:30
PROVIDERS: PCP Physician Assistant; Referring Provider Physician Assistant; Visit Provider Physical Medicine & Rehabilitation
DX: M54.5 Low back pain (principal); M48.061 Spinal stenosis, lumbar region without neurogenic claudication; M62.838 Other muscle spasm; R53.1 Weakness; R26.2 Difficulty in walking, not elsewhere classified; M25.551 Pain in right hip; G89.29 Other chronic pain; M48.062 Spinal stenosis, lumbar region with neurogenic claudication
CPT/HCPCS: 97010; 97035; 97110; 97112; 97116; 97140; 97162; 97164; 97530; 97535

== ENCOUNTER → 2020-08-30 14:26 | Outpatient (CLI) | payer MEDICARE, OTHER, SELFPAY ==
[2020-08-30 15:06] LABS: Add Manual Diff / Slide Review NO; Basophils Absolute Auto 0 /uL (0-100); Eosinophils Absolute Auto 100 /uL (0-450); Eosinophils Percent Auto 1.8 % (2-4); Hematocrit 39.6 % (36-46); Hemoglobin 13.4 g/dL (12.0-16.0); Lymphocytes Absolute Auto 1200 /uL (1100-4500); Lymphocytes Percent Auto 27.9 % (25-40); Mean Corpuscular HGB Conc 33.8 % (30-36); Mean Corpuscular Hemoglobin 30.8 PG (26-34); Mean Corpuscular Volume 91.2 fL (80-100); Monocytes Absolute Auto 600 /uL (0-900); Monocytes Percent Auto 13.3 % (3-14); Neutrophils Absolute Auto 2400 /uL (1500-7000); Platelet Count 189 X10^3/uL (150-400); Red Blood Cell Count 4.34 X10^6/uL (4.0-5.2); Red Cell Distribution Width 14.4 % (11.6-14.8); White Blood Cell Count 4.3 X10^3/uL (4.5-11.0)
[2020-08-30 15:13] LABS: Prothrombin Time 10.8 SECONDS (10.1-12.7)
[2020-08-30 15:16] LABS: PTT Partial Thromboplastin Tim 31 SECONDS (26.4-36.2)
== END ==
PROVIDERS: PCP Physician Assistant; Referring Provider Physician Assistant; Visit Provider Physician Assistant
DX: R23.8 Other skin changes (principal); I10 Essential (primary) hypertension; T14.8XXA Other injury of unspecified body region, initial encounter; M06.00 Rheumatoid arthritis without rheumatoid factor, unspecified site; R23.2 Flushing; Z86.711 Personal history of pulmonary embolism; Z86.718 Personal history of other venous thrombosis and embolism
CPT/HCPCS: 36415; 85025; 85610; 85730

== ENCOUNTER → 2020-09-10 15:16 | Outpatient (CLI) | payer MEDICARE, OTHER, SELFPAY ==
--- NOTE | 2020-09-10 | DI.CT.S_ITS ---
PROCEDURE: CT LUMBAR SPINE WO CON INDICATIONS: spinal stenosis, lumbar region TECHNIQUE: Noncontrast 3 mm thick sections acquired from the T12 level to the sacrum. Sagittal and coronal reformats were constructed. For radiation dose reduction, the following was used: automated exposure control. COMPARISON: [facility], MR, MR LUMBAR SPINE WO CON, 07/15/2020, 9:32. FINDINGS: Image quality: Excellent. Bones: There is been decompressive laminectomies at L4 and L5 with posterior kimi and screw instrumentation extending from L4 through S1. Discectomy and fusion present at L4-5 and L5-S1 with posterior lateral graft present as well. T12-L1: Unremarkable. No central or foraminal stenosis. L1-L2: Mild disc space narrowing present. No disc bulge or protrusion. No central or foraminal stenosis. L2-L3: Mild disc space narrowing present. . Mild circumferential disc bulge without central or foraminal stenosis. L3-L4: Moderate disc space narrowing present. Hypertrophic facet joints and circumferential disc bulge combine to result in severe central stenosis. There is grade 1 anterior spondylolisthesis of L3 over L4 present. Moderate bilateral foraminal stenosis. L4-L5: Discectomy and fusion with spacer graft present. Decompressive laminectomy results in widely patent central canal. Moderate bilateral foraminal stenosis noted. L5-S1: Discectomy and fusion present. Central canal is patent moderate to severe bilateral foraminal stenosis noted. Soft tissues: No retroperitoneal masses or hematomas. Visualized aorta is normal in caliber. Left renal atrophy stable from prior. IMPRESSION: Multilevel degenerative disc disease and arthropathy results in varying degrees of central and foraminal stenosis, including severe central stenosis at L3-4. L4-5 and L5-S1 discectomy and fusion with posterior kimi and screw instrumentation in position. No hardware failure or loosening. Decompressive L4 and L5 laminectomies Dictated by: Matt Torres M.D. on 09/10/2020 at 17:36 Approved by: Matt Torres M.D. on 09/10/2020 at 17:51
== END ==
PROVIDERS: PCP Physician Assistant; Referring Provider Neurological Surgery; Visit Provider Neurological Surgery
DX: M51.16 Intervertebral disc disorders with radiculopathy, lumbar region (principal); M47.26 Other spondylosis with radiculopathy, lumbar region; M48.062 Spinal stenosis, lumbar region with neurogenic claudication; M48.07 Spinal stenosis, lumbosacral region; Z98.1 Arthrodesis status
CPT/HCPCS: 72131

== ENCOUNTER → 2020-09-11 10:53 | Outpatient (CLI) | payer MEDICARE, OTHER, SELFPAY ==
[2020-09-11 11:41] LABS: Add Manual Diff / Slide Review NO; Basophils Absolute Auto 0 /uL (0-100); Basophils Percent Auto 1.4 % (0-2); Eosinophils Absolute Auto 100 /uL (0-450); Eosinophils Percent Auto 2.9 % (2-4); Hemoglobin 13.6 g/dL (12.0-16.0); Lymphocytes Absolute Auto 1200 /uL (1100-4500); Lymphocytes Percent Auto 37.3 % (25-40); Mean Corpuscular HGB Conc 33.1 % (30-36); Mean Corpuscular Hemoglobin 30.5 PG (26-34); Mean Corpuscular Volume 92.1 fL (80-100); Monocytes Absolute Auto 500 /uL (0-900); Monocytes Percent Auto 14.7 % (3-14); Neutrophils Absolute Auto 1400 /uL (1500-7000); Neutrophils Percent Auto 43.7 % (50-75); Platelet Count 173 X10^3/uL (150-400); Red Blood Cell Count 4.45 X10^6/uL (4.0-5.2); Red Cell Distribution Width 14.3 % (11.6-14.8); White Blood Cell Count 3.2 X10^3/uL (4.5-11.0)
[2020-09-11 12:19] LABS: BUN Creatinine Ratio 25.3 (6-22); Blood Urea Nitrogen 21 mg/dL (7-17); Calcium 9.7 mg/dL (8.4-10.2); Carbon Dioxide 28 mmol/L (22-32); Chloride 106 mmol/L (98-107); Estimated Glomerular Filt Rate > 60.0 mL/min (>60); Glucose 104 mg/dL (80-110); HEMOLYSIS < 15 (0-50); Potassium 3.6 mmol/L (3.4-5.1); Sodium 138 mmol/L (137-145)
== END ==
PROVIDERS: PCP Physician Assistant; Referring Provider Neurological Surgery; Visit Provider Neurological Surgery
DX: M48.062 Spinal stenosis, lumbar region with neurogenic claudication (principal); R94.31 Abnormal electrocardiogram [ECG] [EKG]; M54.16 Radiculopathy, lumbar region; Z98.1 Arthrodesis status
CPT/HCPCS: 36415; 80048; 85025; 93005

== ENCOUNTER → 2020-10-26 13:54 | Outpatient (CLI) | payer MEDICARE, OTHER, SELFPAY ==
--- NOTE | 2020-10-26 | DI.MG.S_ITS ---
BILATERAL DIGITAL SCREENING MAMMOGRAM 3D/2D WITH CAD: 10/26/2020 CLINICAL: Routine screening. Comparison is made to exams dated: 04/26/2019 mammogram, 03/29/2019 mammogram, and 08/30/2017 mammogram - [facility]. There are scattered fibroglandular elements in both breasts. Current study was also evaluated with a Computer Aided Detection (CAD) system. No significant masses, calcifications, or other findings are seen in either breast. There has been no significant interval change. IMPRESSION: NEGATIVE There is no mammographic evidence of malignancy. A 1 year screening mammogram is recommended. This exam was interpreted at Station ID: [id number]. NOTE: For mammograms, a report in lay terms will be sent to the patient. Approximately 15% of breast malignancies will not be visualized mammographically. In the management of a palpable breast mass, a negative mammogram must not discourage biopsy of a clinically suspicious lesion. Electronically Signed By: Yolette cuevas/francy:10/28/2020 10:04:08 copy to: Justin Gayle letter sent: Normal Exam ACR BI-RADS Category 1: Negative [id number]
== END ==
PROVIDERS: PCP Physician Assistant; Referring Provider Physician Assistant; Visit Provider Physician Assistant
DX: Z12.31 Encounter for screening mammogram for malignant neoplasm of breast (principal)
CPT/HCPCS: 77063; 77067

== ENCOUNTER → 2020-12-02 12:30 | Outpatient (CLI) | payer MEDICARE, OTHER, SELFPAY ==
[2020-12-02 13:02] LABS: Add Manual Diff / Slide Review NO; Basophils Absolute Auto 0 /uL (0-100); Basophils Percent Auto 0.4 % (0-2); Eosinophils Absolute Auto 100 /uL (0-450); Eosinophils Percent Auto 1.1 % (2-4); Hematocrit 38.5 % (36-46); Hemoglobin 12.6 g/dL (12.0-16.0); Lymphocytes Absolute Auto 1000 /uL (1100-4500); Lymphocytes Percent Auto 18.9 % (25-40); Mean Corpuscular HGB Conc 32.7 % (30-36); Mean Corpuscular Hemoglobin 30.6 PG (26-34); Mean Corpuscular Volume 93.6 fL (80-100); Monocytes Absolute Auto 600 /uL (0-900); Monocytes Percent Auto 11.7 % (3-14); Neutrophils Absolute Auto 3500 /uL (1500-7000); Neutrophils Percent Auto 67.9 % (50-75); Platelet Count 160 X10^3/uL (150-400); Red Blood Cell Count 4.12 X10^6/uL (4.0-5.2); Red Cell Distribution Width 14.2 % (11.6-14.8); White Blood Cell Count 5.1 X10^3/uL (4.5-11.0)
[2020-12-02 13:28] LABS: Alanine Aminotransferase 29 IU/L (<35); Albumin 4.3 g/dL (3.5-5.0); Albumin Globulin Ratio 1.5 (1.0-2.8); Alkaline Phosphatase 48 U/L (38-126); Aspartate Aminotransferase 33 IU/L (14-36); Bilirubin Total 0.7 mg/dL (0.2-1.3); Blood Urea Nitrogen 27 mg/dL (7-17); Calcium 9.5 mg/dL (8.4-10.2); Carbon Dioxide 33 mmol/L (22-32); Chloride 102 mmol/L (98-107); Estimated Glomerular Filt Rate > 60.0 mL/min (>60); Globulin 2.8 g/dL (1.7-4.1); Glucose 112 mg/dL (80-110); HEMOLYSIS 36 (0-50); Potassium 4.1 mmol/L (3.4-5.1); Sodium 137 mmol/L (137-145); Total Protein 7.1 g/dL (6.3-8.2)
[2020-12-02 13:29] LABS: Alanine Aminotransferase 29 IU/L (<35); Albumin 4.2 g/dL (3.5-5.0); Albumin Globulin Ratio 1.6 (1.0-2.8); Alkaline Phosphatase 50 U/L (38-126); Aspartate Aminotransferase 30 IU/L (14-36); Bilirubin Total 0.6 mg/dL (0.2-1.3); Bilirubin Unconjugated 0.5 mg/dL (0.0-1.1); Estimated Glomerular Filt Rate > 60.0 mL/min (>60); Globulin 2.6 g/dL (1.7-4.1); HEMOLYSIS < 15 (0-50); Total Protein 6.8 g/dL (6.3-8.2)
[2020-12-04 14:34] LABS: Protein C Antigen 123 % (60-150)
[2020-12-04 21:07] LABS: Antithrombin Activity 128 % (75-135); Antithrombin Antigen 100 % (72-124); Protein C-Functional 127 % (73-180); Protein S Antigen 128 % (60-150); Protein S-Functional 123 % (63-140)
== END ==
PROVIDERS: Internal Medicine Hematology & Oncology; PCP Physician Assistant; Referring Provider Internal Medicine Rheumatology; Visit Provider Internal Medicine Rheumatology
DX: M06.00 Rheumatoid arthritis without rheumatoid factor, unspecified site (principal); I82.90 Acute embolism and thrombosis of unspecified vein; Z51.81 Encounter for therapeutic drug level monitoring
CPT/HCPCS: 36415; 80053; 80076; 81241; 82565; 85025; 85300; 85301; 85302; 85303; 85306

== ENCOUNTER → 2021-01-08 12:24 | Outpatient (CLI) | payer MEDICARE, OTHER, SELFPAY ==
[2021-01-08 12:50] LABS: Add Manual Diff / Slide Review NO; Basophils Absolute Auto 0 /uL (0-100); Basophils Percent Auto 0.9 % (0-2); Eosinophils Absolute Auto 100 /uL (0-450); Eosinophils Percent Auto 1.5 % (2-4); Hematocrit 39.7 % (36-46); Hemoglobin 13.2 g/dL (12.0-16.0); Lymphocytes Absolute Auto 1000 /uL (1100-4500); Lymphocytes Percent Auto 21.7 % (25-40); Mean Corpuscular HGB Conc 33.2 % (30-36); Mean Corpuscular Hemoglobin 30.5 PG (26-34); Monocytes Absolute Auto 500 /uL (0-900); Monocytes Percent Auto 10.3 % (3-14); Neutrophils Absolute Auto 3000 /uL (1500-7000); Neutrophils Percent Auto 65.6 % (50-75); Platelet Count 183 X10^3/uL (150-400); Red Blood Cell Count 4.32 X10^6/uL (4.0-5.2); Red Cell Distribution Width 14.4 % (11.6-14.8); White Blood Cell Count 4.6 X10^3/uL (4.5-11.0)
[2021-01-08 13:18] LABS: Alanine Aminotransferase 35 IU/L (<35); Albumin 4.2 g/dL (3.5-5.0); Albumin Globulin Ratio 1.8 (1.0-2.8); Alkaline Phosphatase 51 U/L (38-126); Aspartate Aminotransferase 34 IU/L (14-36); BUN Creatinine Ratio 31.1 (6-22); Bilirubin Total 0.9 mg/dL (0.2-1.3); Blood Urea Nitrogen 23 mg/dL (7-17); Calcium 9.4 mg/dL (8.4-10.2); Carbon Dioxide 28 mmol/L (22-32); Chloride 102 mmol/L (98-107); Estimated Glomerular Filt Rate > 60.0 mL/min (>60); Globulin 2.3 g/dL (1.7-4.1); Glucose 111 mg/dL (80-110); HEMOLYSIS < 15 (0-50); Potassium 4.3 mmol/L (3.4-5.1); Sodium 137 mmol/L (137-145); Total Protein 6.5 g/dL (6.3-8.2)
== END ==
PROVIDERS: PCP Physician Assistant; Referring Provider Internal Medicine Rheumatology; Visit Provider Internal Medicine Rheumatology
DX: M06.00 Rheumatoid arthritis without rheumatoid factor, unspecified site (principal)
CPT/HCPCS: 36415; 80053; 85025

== ENCOUNTER 2021-01-28 09:45 | Outpatient (RCR) | payer MEDICARE, OTHER, SELFPAY ==
--- NOTE | 2020-12-04 12:17 | PT.OPPOC ---
Physical, Occupational & Speech Therapy At [facility] Current Diagnoses Other intervertebral disc degeneration, lumbar region (12/04/20) Visit Care Team Role Provider Type Ellie Founatin PA-C Attending Provider Non-Staff Primary Care Provider Referring Provider Specialty: Internal Medicine Address: [address] [place] [address], [facility] Email: [email or web address] Of Care PT-OP-T Assessment and Plan Start: 12/04/20 08:06 Freq: Status: Active Protocol: Document 12/04/20 10:30 SAK (Rec: 12/08/20 08:32 SAK [id number]) Physical Therapy Assessment Evaluation Complexity Number of Personal Factors/Comorbidities 1-2 Number of Body Systems Impaired 3 Clinical Presentation at Evaluation Evolving Impairments Impairments Activity Tolerance,Pain, Strength Goals Three Impairment weakness in core and hips Short Term Goal (STG) Upgrade and modify patient's HEP as indicated STG Duration 01/03/21 Instructional Resource Teacher Goal (LTG) Patient to be independent with HEP and demonstrate improved strength to at least 4+/5 throughout to allow her to return to her usual activities LTG Duration 02/06/21 Two Impairment pain as high as 9/10 at night Assisted Goal (LTG) Decrease pain to no greater than 3/10 with all usual activities, especially at night when trying to sleep and move in bed LTG Duration 02/06/21 One Impairment activity tolerance Impairment Unable to sit for more than one hour due to hip pain, and has difficulty sleeping and moving in bed due to pain in low back and buttock(wakes every 2 hours) Instructional Resource Teacher Goal (LTG) Patient will be able to sit for up to 2 hours with minimal to no pain right hip, and be able to improve sleep to at least 4 hours at a time LTG Duration 02/06/21 Assessment Summary Assessment Patient presents to PT with function-limiting pain in her low back, buttocks, right hip, and coccyx region. Per her associate relations specialist inflammation from RA may be a large factor in patient's ongoing pain. Signs and symptoms also indicate multifactoral cause of pain with weakness in core and hips, compensatory gait and movement patterns due to prior ankle fusions and spinal fusion causing musculoskeletal stress. She would benefit from physical therapy to address areas of weakness and lack of core stabilization, as well as alignment issues including likely mal-aligned coccyx. She has been treated in PT previously with good benefit. Has benefited highly from aquatic PT but due to fragile skin has been unable to go to the pool recently due to open sores on forearms. Physical Therapy Plan Frequency and Duration Frequency of Treatment 2x/Week Duration of Treatment 8 wks Plan of Care Start Date 12/04/20 Plan of Care End Date 02/06/21 Therapeutic Interventions Therapeutic Interventions Aquatic Therapy,Gait Training, Home Exercise Program,Manual Therapy,Neuromuscular Re- education,Patient/Caregiver Education,Self-Care/Home Management,Soft Tissue Mobilization,Taping, Therapeutic Activities, Therapeutic Exercises Modalities Cold Pack/Ice Massage,Electric Stimulation,Hot Packs, Iontophoresis,Ultrasound Next Visit Focus/Plan Next Note Type Treatment Note Next Visit Plan Evaluate coccyx alignment, review HEP, core strengthening exercises including core stabilization with bed mobility, manual techniques as indicated. Plan of Care Dates Plan of Care Start Date 12/04/20 Plan of Care End Date 02/06/21 Electronically Signed by: Julee Gee, PT 12/09/20 [id number] Please Sign and Return: I have reviewed this Plan of Care and certify that the skilled therapy services above are required to meet the patient?s needs. Physician Signature Date Printed Name and Credentials Clinical Instructor Signature Printed Name and Credentials
--- NOTE | 2020-12-04 12:17 | PT.OIE ---
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) Hx of spinal fusion (10/09/18) Hx of tonsillectomy (07/27/1967) Past Surgical History (Last Updated 11/18/20 @ 18:39 by Chelsy Bates MD) H/O eye surgery (02/05/1958) H/O total hysterectomy (05/06/00) History of cholecystectomy (02/05/98) History of knee surgery (05/05/10) 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) Hx of spinal fusion (10/09/18) Hx of tonsillectomy (07/27/1967) Visit Care Team Role Provider Type Ellie Fountain PA-C Attending Provider Non-Staff Primary Care Provider Referring Provider Specialty: Internal Medicine Address: [address] [place] [address] Email: [email or web address] Initial Evaluation PT-OP-A Visit Information Start: 12/04/20 08:06 Freq: Status: Active Protocol: Document 12/04/20 10:30 SAI (Rec: 12/08/20 08:32 [facility] [id number]) Out-Patient Physical Therapy Visit Information Visit Information Visit Type Initial Evaluation Visit Start Time 10:30 Visit Stop Time 11:25 Total Visit Minutes 55 Visit Number 1 Evaluation Information Evaluation Date 11/06/20 Precautions Precautions PMH: rheumatoid arthritis, GERD, PE, depression, bilateral ankle fusion, left shoulder replacement 2018, right TKA 12/14, spinal fusion 10/24, Charcot foot gloria PT-OP-B Current Condition Start: 12/04/20 08:06 Freq: Status: Active Protocol: Document 12/04/20 10:30 SAI (Rec: 12/08/20 08:32 [facility] [id number]) Current Condition History of Current Condition Onset Date 6 wks Current Complaints low back, buttock, right hip pain History of Current Condition Per patient typed summary: About 5-6 weeks ago I suddenly developed pain in both buttocks along with some numbness and tingling. It was terrible at night. Could not shift in bed, lift to move heating pad and had a hard time rolling over. I have also been having a great deal of pain in my coccyx area. Nothing seemed to help-muscle relaxers nor Percocet. Upon rising it got better during day. I had a tele-visit with my proof sorter who agreed with me that this is sacroiliitis. I had this last summer but not nearly as bad. She decided to put me on Celebrex despite reflux and ulcer this summer. I have been on it 5 days now and improving greatly. Her thoughts are that this is some type of inflammatory issue, which people with RA get and are treated with biologics. However she wanted to see if I would improve with PT and meds. Also, due to my fusion, I could just be having symptoms due to offloading in that area. I am seeing Dr. Parr (neurosurgeon) Dec.13 as she wanted me to follow up with him. The second issue is my right hip. I was injected about 3 months ago in the bursa (right side) for bursitis and greater trochanter enthesophytosis. I am seeing him again this Wednesday (Dr. Stokes) [facility], for another injection. The Celebrex has not seemed to help the hip and I have pain walking and laying n the right side. I am also seeing my new foot/ ankle surgeon for a SCEPT Scan next to evaluate my feet better. His name is Dr. Angelo Pope[facility]. Prior Treatments and Tests as above Future Testing and Treatments Planned as above Treatment Goals Patient/Caregiver Goals Decrease pain, be able to sit without pain, improve ability to sleep with less pain Prior Functional Status Baseline Function- ADL's Modified Independent Baseline Function- Mobility Modified Independent Baseline Function- Gait no device, short distances due to foot pain Current Functional Impairments (Reported) Functional Limitations- ADL's painful Functional Limitations- Mobility/Gait limited and painful Functional Limitations- Work/School retired Functional Limitations- Recreation/ more pain to cook and garden Hobbies Functional Limitations- Other interrrupted sleep Personal Factors Other Personal Factors That May Effect chronicity of pain Therapy/Recovery PT-OP-C Subjective Start: 12/04/20 08:06 Freq: Status: Active Protocol: Document 12/04/20 10:30 SAK (Rec: 12/09/20 08:48 [facility] [id number]) Patient Questionnaires Oswestry Low Back Index Oswestry Score 31% OP-PT Pain Assessment Pain Assessment Grid Paper Pain Assessment Grid Completed Yes Location gloria buttocks, right hip, coccyx Intensity 9 Description Aching,Stabbing,Tender Comments Pain Comments Pain varies from 7-9/10 worst at night in bed PT-OP-D Balance Start: 12/04/20 08:06 Freq: Status: Active Protocol: Document 12/04/20 10:30 SAK (Rec: 12/09/20 08:48 [facility] [id number]) OP-PT Balance Assessment Standing Balance Static Standing Balance Ability Fair Loera Fall Scale Copyright Permission PT-OP-G Mobility & Gait Start: 12/04/20 08:06 Freq: Status: Active Protocol: Document 12/04/20 10:30 SAK (Rec: 12/09/20 08:48 [facility] [id number]) OP Mobility Evaluation Bed Mobility Rolling independent but painful Supine to and from Sit independent but painful Transfers Sit to Stand decreased weight-bearing right OP Gait Assessment Gait Gait Assistance Required: Independent Assistive Devices Assistive Device None Factors Limiting Gait Function Factors Limiting Gait Function Limited Range of Motion,Pain Comments Gait Comments limited ROM from gloria ankle fusions, wearing orthotics as well as spinal fusion. PT-OP-H Neuro Start: 12/04/20 08:06 Freq: Status: Active Protocol: Document 12/04/20 10:30 SAK (Rec: 12/09/20 08:48 [facility] [id number]) Sensation Evaluation Gross Sensation Gross Sensation WNL PT-OP-J Posture/Palpation/Skin Start: 12/04/20 08:06 Freq: Status: Active Protocol: Document 12/04/20 10:30 SAK (Rec: 12/09/20 08:48 [facility] [id number]) Posture Evaluation Position Standing Head/C-Spine Posture Forward Head T-Spine Posture Increased Kyphosis L-Spine Posture Shifted Left Shoulder Posture (L) Rounded Scapula Posture (L) Protracted,(R) Protracted Pelvis Posture Anteriorly Tilted Palpation Assessment Location buttocks Palpation Location gloria left greater than right piriformis Palpation Findings Soft Tissue Tightness,Muscle Guarding,Tenderness PT-OP-K Range of Motion Start: 12/04/20 08:06 Freq: Status: Active Protocol: Document 12/04/20 10:30 [facility] (Rec: 12/09/20 08:48 [facility] [id number]) Lumbar Spine Range of Motion Lumbar Spine Active Comments limited ROM l/s due to fusion Hip Goniometric Range of Motion Hip gloria Hip ROM WFL Yes Ankle and Foot Goniometric Range of Motion Ankle and Foot ROM Limitations Comments limited gloria due to ankle fusions PT-OP-M Strength Start: 12/04/20 08:06 Freq: Status: Active Protocol: Document 12/04/20 10:30 [facility] (Rec: 12/09/20 08:48 [facility] [id number]) Trunk Strength Trunk Manual Muscle Testing Comments not formally tested due to pain with movement when in supine or moving when laying down. Poor ability to activate core musculature. Hip Strength Hip Manual Muscle Testing Left Flexion (L2) 3+ Fair+ Extension (S1) 4- Good- Abduction 4 Good Adduction 4 Good External Rotation 4- Good- Internal Rotation 4 Good Right Flexion (L2) 3+ Fair+ Extension (S1) 4- Good- Abduction 3+ Fair+ Adduction 4 Good External Rotation 4- Good- Internal Rotation 3+ Fair+ Comments pain with resisted flex, abd, add Knee Strength Knee Manual Muscle Testing Left Flexion (S2) 4- Good- Extension (L3) 4 Good Right Flexion (S2) 4 Good Extension (L3) 4 Good PT-OP-Q Treatments Start: 12/04/20 08:06 Freq: Status: Active Protocol: Document 12/04/20 10:30 [facility] (Rec: 12/09/20 08:48 [facility] [id number]) Manual Therapy Treatment Taping right hip Body Location greater trochanger Treatment Focus pain relief Type of Tape Kinesio Tape Skin Inspection intact Comments star pattern for pain relief; 50-75% stretch on 3 I strips Self-Care/Home Management Treatment Education Patient Education Body Mechanics,Home Exercise Program,Pain Management Other Education added reverse clamshell Activities Self-Care/Home Management Activities encouraged ice and heat, bring PT-OP-R Modalities Start: 12/04/20 08:06 Freq: Status: Active Protocol: Document 12/04/20 10:30 SAK (Rec: 12/09/20 08:48 [facility] [id number]) Hot Pack/Cold Pack Treatment Cold Pack Location right lateral hip, gloria buttocks Patient Position Sidelying Treatment Duration (minutes) 10 Patient Tolerance Good PT-OP-T Assessment and Plan Start: 12/04/20 08:06 Freq: Status: Active Protocol: Document 12/04/20 10:30 [facility] (Rec: 12/08/20 08:32 [facility] [id number]) Physical Therapy Assessment Evaluation Complexity Number of Personal Factors/Comorbidities 1-2 Number of Body Systems Impaired 3 Clinical Presentation at Evaluation Evolving Impairments Impairments Activity Tolerance,Pain, Strength Goals Three Impairment weakness in core and hips Short Term Goal (STG) Upgrade and modify patient's HEP as indicated STG Duration 01/03/21 Long-Term Goal (LTG) Patient to be independent with HEP and demonstrate improved strength to at least 4+/5 throughout to allow her to return to her usual activities LTG Duration 02/06/21 Two Impairment pain as high as 9/10 at night Long-Term Goal (LTG) Decrease pain to no greater than 3/10 with all usual activities, especially at night when trying to sleep and move in bed LTG Duration 02/06/21 One Impairment activity tolerance Impairment Unable to sit for more than one hour due to hip pain, and has difficulty sleeping and moving in bed due to pain in low back and buttock(wakes every 2 hours) Long-Term Goal (LTG) Patient will be able to sit for up to 2 hours with minimal to no pain right hip, and be able to improve sleep to at least 4 hours at a time LTG Duration 02/06/21 Assessment Summary Assessment Patient presents to PT with function-limiting pain in her low back, buttocks, right hip, and coccyx region. Per her proof sorter inflammation from RA may be a large factor in patient's ongoing pain. Signs and symptoms also indicate multifactoral cause of pain with weakness in core and hips, compensatory gait and movement patterns due to prior ankle fusions and spinal fusion causing musculoskeletal stress. She would benefit from physical therapy to address areas of weakness and lack of core stabilization, as well as alignment issues including likely mal-aligned coccyx. She has been treated in PT previously with good benefit. Has benefited highly from aquatic PT but due to fragile skin has been unable to go to the pool recently due to open sores on forearms. Physical Therapy Plan Frequency and Duration Frequency of Treatment 2x/Week Duration of Treatment 8 wks Plan of Care Start Date 12/04/20 Plan of Care End Date 02/06/21 Therapeutic Interventions Therapeutic Interventions Aquatic Therapy,Gait Training, Home Exercise Program,Manual Therapy,Neuromuscular Re- education,Patient/Caregiver Education,Self-Care/Home Management,Soft Tissue Mobilization,Taping, Therapeutic Activities, Therapeutic Exercises Modalities Cold Pack/Ice Massage,Electric Stimulation,Hot Packs, Iontophoresis,Ultrasound Next Visit Focus/Plan Next Note Type Treatment Note Next Visit Plan Evaluate coccyx alignment, review HEP, core strengthening exercises including core stabilization with bed mobility, manual techniques as indicated.
--- NOTE | 2020-12-09 18:52 | PT.OTN ---
Current Diagnoses Other intervertebral disc degeneration, lumbar region (12/09/20) Physical Therapy Treatment Note PT-OP-A Visit Information Start: 12/04/20 08:06 Freq: Status: Active Protocol: Document 12/09/20 18:18 LR (Rec: 12/09/20 18:51 [facility] [id number]) Out-Patient Physical Therapy Visit Information Visit Information Visit Type Treatment Note Visit Start Time 16:45 Visit Stop Time 17:45 Total Visit Minutes 60 Visit Number 2 Number of MOTORSPORTS TECHNICIAN Visits 0 PT-OP-B Current Condition Start: 12/04/20 08:06 Freq: Status: Active Protocol: Document 12/04/20 10:30 SAK (Rec: 12/08/20 08:32 [facility] [id number]) Current Condition History of Current Condition Onset Date 6 wks Current Complaints low back, buttock, right hip pain History of Current Condition Per patient typed summary: About 5-6 weeks ago I suddenly developed pain in both buttocks along with some numbness and tingling. It was terrible at night. Could not shift in bed, lift to move heating pad and had a hard time rolling over. I have also been having a great deal of pain in my coccyx area. Nothing seemed to help-muscle relaxers nor Percocet. Upon rising it got better during day. I had a tele-visit with my senior construction estimator who agreed with me that this is sacroiliitis. I had this last summer but not nearly as bad. She decided to put me on Celebrex despite reflux and ulcer this summer. I have been on it 5 days now and improving greatly. Her thoughts are that this is some type of inflammatory issue, which people with RA get and are treated with biologics. However she wanted to see if I would improve with PT and meds. Also, due to my fusion, I could just be having symptoms due to offloading in that area. I am seeing Dr. Parr (neurosurgeon) Dec.13 as she wanted me to follow up with him. The second issue is my right hip. I was injected about 3 months ago in the bursa (right side) for bursitis and greater trochanter enthesophytosis. I am seeing him again this Wednesday (Dr. Stokes) [facility], for another injection. The Celebrex has not seemed to help the hip and I have pain walking and laying n the right side. I am also seeing my new foot/ ankle surgeon for a SCEPT Scan next to evaluate my feet better. His name is Dr. Angelo Poep-[facility]. Prior Treatments and Tests as above Future Testing and Treatments Planned as above Treatment Goals Patient/Caregiver Goals Decrease pain, be able to sit without pain, improve ability to sleep with less pain Prior Functional Status Baseline Function- ADL's Modified Independent Baseline Function- Mobility Modified Independent Baseline Function- Gait no device, short distances due to foot pain Current Functional Impairments (Reported) Functional Limitations- ADL's painful Functional Limitations- Mobility/Gait limited and painful Functional Limitations- Work/School retired Functional Limitations- Recreation/ more pain to cook and garden Hobbies Functional Limitations- Other interrrupted sleep Personal Factors Other Personal Factors That May Effect chronicity of pain Therapy/Recovery PT-OP-C Subjective Start: 12/04/20 08:06 Freq: Status: Active Protocol: Document 12/09/20 18:18 [facility] (Rec: 12/09/20 18:51 [facility] [id number]) OP-PT Subjective Patient Comments Patient Comments Pt reports having signficiant pain when laying down and doing bed mobility. Noted she has been extremely stressed though d/t being in/ out of hospital and MD office d/t Afib and requriing cardioversion. She does not think this is helping her pain . Pain noted during standing and sitting today when talkingt o PT PT-OP-D Balance Start: 12/04/20 08:06 Freq: Status: Active Protocol: Document 12/04/20 10:30 [facility] (Rec: 12/09/20 08:48 [facility] [id number]) OP-PT Balance Assessment Standing Balance Static Standing Balance Ability Fair Loera Fall Scale Copyright Permission PT-OP-G Mobility & Gait Start: 12/04/20 08:06 Freq: Status: Active Protocol: Document 12/04/20 10:30 [facility]AK (Rec: 12/09/20 08:48 [facility] [id number]) OP Mobility Evaluation Bed Mobility Rolling independent but painful Supine to and from Sit independent but painful Transfers Sit to Stand decreased weight-bearing right OP Gait Assessment Gait Gait Assistance Required: Independent Assistive Devices Assistive Device None Factors Limiting Gait Function Factors Limiting Gait Function Limited Range of Motion,Pain Comments Gait Comments limited ROM from gloria ankle fusions, wearing orthotics as well as spinal fusion. PT-OP-H Neuro Start: 12/04/20 08:06 Freq: Status: Active Protocol: Document 12/04/20 10:30 [facility] (Rec: 12/09/20 08:48 [facility] [id number]) Sensation Evaluation Gross Sensation Gross Sensation WNL PT-OP-J Posture/Palpation/Skin Start: 12/04/20 08:06 Freq: Status: Active Protocol: Document 12/04/20 10:30 [facility] (Rec: 12/09/20 08:48 [facility] [id number]) Posture Evaluation Position Standing Head/C-Spine Posture Forward Head T-Spine Posture Increased Kyphosis L-Spine Posture Shifted Left Shoulder Posture (L) Rounded Scapula Posture (L) Protracted,(R) Protracted Pelvis Posture Anteriorly Tilted Palpation Assessment Location buttocks Palpation Location gloria left greater than right piriformis Palpation Findings Soft Tissue Tightness,Muscle Guarding,Tenderness PT-OP-K Range of Motion Start: 12/04/20 08:06 Freq: Status: Active Protocol: Document 12/04/20 10:30 [facility] (Rec: 12/09/20 08:48 [facility] [id number]) Lumbar Spine Range of Motion Lumbar Spine Active Comments limited ROM l/s due to fusion Hip Goniometric Range of Motion Hip gloria Hip ROM WFL Yes Ankle and Foot Goniometric Range of Motion Ankle and Foot ROM Limitations Comments limited gloria due to ankle fusions PT-OP-M Strength Start: 12/04/20 08:06 Freq: Status: Active Protocol: Document 12/04/20 10:30 [facility] (Rec: 12/09/20 08:48 [facility] [id number]) Trunk Strength Trunk Manual Muscle Testing Comments not formally tested due to pain with movement when in supine or moving when laying down. Poor ability to activate core musculature. Hip Strength Hip Manual Muscle Testing Left Flexion (L2) 3+ Fair+ Extension (S1) 4- Good- Abduction 4 Good Adduction 4 Good External Rotation 4- Good- Internal Rotation 4 Good Right Flexion (L2) 3+ Fair+ Extension (S1) 4- Good- Abduction 3+ Fair+ Adduction 4 Good External Rotation 4- Good- Internal Rotation 3+ Fair+ Comments pain with resisted flex, abd, add Knee Strength Knee Manual Muscle Testing Left Flexion (S2) 4- Good- Extension (L3) 4 Good Right Flexion (S2) 4 Good Extension (L3) 4 Good PT-OP-Q Treatments Start: 12/04/20 08:06 Freq: Status: Active Protocol: Document 12/09/20 18:18 [facility] (Rec: 12/09/20 18:51 [facility] [id number]) Therapeutic Activity Therapeutic Activity sleep posture Name supine sleep position JUDY training for 2 pillows under legs (full support) Manual Therapy Treatment Soft Tissue Mobilization glutes Body Location R along sacral and B coccyx border Mobilization Type Strumming,Sustained Pressure Intensity/Depth Moderate Body Position Sidelying Joint Mobilizations coccyx Direction distraction & LUPA & transverse glide Grade II Neuro Re-Education Treatment Other Activities PNF Comments 1. ant dep scap R sustained holds progressed to COI to work towards irradiation to ant elevation of R pelvis 2. sustained holds mass flex progressed to small range COI PT-OP-R Modalities Start: 12/04/20 08:06 Freq: Status: Active Protocol: Document 12/09/20 18:18 [facility] (Rec: 12/09/20 18:51 [facility] [id number]) Hot Pack/Cold Pack Treatment Cold Pack Location right lateral hip, gloria buttocks & LB Patient Position Sidelying Treatment Duration (minutes) 10 Patient Tolerance Good PT-OP-T Assessment and Plan Start: 12/04/20 08:06 Freq: Status: Active Protocol: Document 12/09/20 18:18 [facility] (Rec: 12/09/20 18:51 [facility] [id number]) Physical Therapy Assessment Goals Three Impairment weakness in core and hips Short Term Goal (STG) Upgrade and modify patient's HEP as indicated STG Duration 01/03/21 Income Tax Consultant Goal (LTG) Patient to be independent with HEP and demonstrate improved strength to at least 4+/5 throughout to allow her to return to her usual activities LTG Duration 02/06/21 Two Impairment pain as high as 9/10 at night [facility] Goal (LTG) Decrease pain to no greater than 3/10 with all usual activities, especially at night when trying to sleep and move in bed LTG Duration 02/06/21 One Impairment activity tolerance Impairment Unable to sit for more than one hour due to hip pain, and has difficulty sleeping and moving in bed due to pain in low back and buttock(wakes every 2 hours) [facility] Goal (LTG) Patient will be able to sit for up to 2 hours with minimal to no pain right hip, and be able to improve sleep to at least 4 hours at a time LTG Duration 02/06/21 Assessment Summary Assessment Pt had improved roll to side after PNF and manual treatment . She was very hesitant when working on PNF but no pain noted. She has sigificant guarding around coccyx but did have release after manual treament. Dec pain noted when sleep position education done. Physical Therapy Plan Frequency and Duration Frequency of Treatment 2x/Week Duration of Treatment 8 wks Plan of Care Start Date 12/04/20 Plan of Care End Date 02/06/21 Next Visit Focus/Plan Next Note Type Treatment Note Next Visit Plan review HEP, core stability exercises, bed mobility PNF, manual as needed, assess visceral mobility as potential cause for back pain & look at R hip flex mobility.
--- NOTE | 2020-12-17 17:00 | PT.OTN ---
Current Diagnoses Other intervertebral disc degeneration, lumbar region (12/17/20) Physical Therapy Treatment Note PT-OP-A Visit Information Start: 12/04/20 08:06 Freq: Status: Active Protocol: Document 12/17/20 09:50 [facility] (Rec: 12/17/20 10:31 [facility] [id number]) Out-Patient Physical Therapy Visit Information Visit Information Visit Type Treatment Note Visit Start Time 09:45 Visit Stop Time 10:40 Total Visit Minutes 55 Visit Number 3 Number of [place] PICKER Visits 0 Precautions Precautions PMH: rheumatoid arthritis, GERD, PE, depression, bilateral ankle fusion, left shoulder replacement 2018, right TKA 12/14, spinal fusion 10/24, Charcot foot gloria PT-OP-B Current Condition Start: 12/04/20 08:06 Freq: Status: Active Protocol: Document 12/04/20 10:30 [facility] (Rec: 12/08/20 08:32 [facility] [id number]) Current Condition History of Current Condition Onset Date 6 wks Current Complaints low back, buttock, right hip pain History of Current Condition Per patient typed summary: About 5-6 weeks ago I suddenly developed pain in both buttocks along with some numbness and tingling. It was terrible at night. Could not shift in bed, lift to move heating pad and had a hard time rolling over. I have also been having a great deal of pain in my coccyx area. Nothing seemed to help-muscle relaxers nor Percocet. Upon rising it got better during day. I had a tele-visit with my charrer who agreed with me that this is sacroiliitis. I had this last summer but not nearly as bad. She decided to put me on Celebrex despite reflux and ulcer this summer. I have been on it 5 days now and improving greatly. Her thoughts are that this is some type of inflammatory issue, which people with RA get and are treated with biologics. However she wanted to see if I would improve with PT and meds. Also, due to my fusion, I could just be having symptoms due to offloading in that area. I am seeing Dr. Parr (neurosurgeon) Dec.13 as she wanted me to follow up with him. The second issue is my right hip. I was injected about 3 months ago in the bursa (right side) for bursitis and greater trochanter enthesophytosis. I am seeing him again this Wednesday (Dr. Stokes) [facility], for another injection. The Celebrex has not seemed to help the hip and I have pain walking and laying n the right side. I am also seeing my new foot/ ankle surgeon for a SCEPT Scan next to evaluate my feet better. His name is Dr. Angelo Pope-[facility]. Prior Treatments and Tests as above Future Testing and Treatments Planned as above Treatment Goals Patient/Caregiver Goals Decrease pain, be able to sit without pain, improve ability to sleep with less pain Prior Functional Status Baseline Function- ADL's Modified Independent Baseline Function- Mobility Modified Independent Baseline Function- Gait no device, short distances due to foot pain Current Functional Impairments (Reported) Functional Limitations- ADL's painful Functional Limitations- Mobility/Gait limited and painful Functional Limitations- Work/School retired Functional Limitations- Recreation/ more pain to cook and garden Hobbies Functional Limitations- Other interrrupted sleep Personal Factors Other Personal Factors That May Effect chronicity of pain Therapy/Recovery PT-OP-C Subjective Start: 12/04/20 08:06 Freq: Status: Active Protocol: Document 12/17/20 09:50 [facility] (Rec: 12/17/20 10:31 [facility] [id number]) OP-PT Subjective Patient Comments Patient Comments Continues to have severe pain at night coccyx and buttocks. Hasn't done much exercise due to 's cardiac issues; in ER x3, cardioverted. Has only done stretches at night. Sees charrer 01/17/21. Was supposed to see neurosurgeon last week and have hip injection; both cancelled last week due to . Pain continues to wake patient up. Tape helped bursitis previously. 2 pillows under legs when in supine. Arm healed so will be able to go to the pool. PT-OP-D Balance Start: 12/04/20 08:06 Freq: Status: Active Protocol: Document 12/04/20 10:30 [facility] (Rec: 12/09/20 08:48 [facility] [id number]) OP-PT Balance Assessment Standing Balance Static Standing Balance Ability Fair Loera Fall Scale Copyright Permission PT-OP-G Mobility & Gait Start: 12/04/20 08:06 Freq: Status: Active Protocol: Document 12/04/20 10:30 [facility] (Rec: 12/09/20 08:48 [facility] [id number]) OP Mobility Evaluation Bed Mobility Rolling independent but painful Supine to and from Sit independent but painful Transfers Sit to Stand decreased weight-bearing right OP Gait Assessment Gait Gait Assistance Required: Independent Assistive Devices Assistive Device None Factors Limiting Gait Function Factors Limiting Gait Function Limited Range of Motion,Pain Comments Gait Comments limited ROM from gloria ankle fusions, wearing orthotics as well as spinal fusion. PT-OP-H Neuro Start: 12/04/20 08:06 Freq: Status: Active Protocol: Document 12/04/20 10:30 [facility] (Rec: 12/09/20 08:48 [facility] [id number]) Sensation Evaluation Gross Sensation Gross Sensation WNL PT-OP-J Posture/Palpation/Skin Start: 12/04/20 08:06 Freq: Status: Active Protocol: Document 12/04/20 10:30 [facility] (Rec: 12/09/20 08:48 [facility] [id number]) Posture Evaluation Position Standing Head/C-Spine Posture Forward Head T-Spine Posture Increased Kyphosis L-Spine Posture Shifted Left Shoulder Posture (L) Rounded Scapula Posture (L) Protracted,(R) Protracted Pelvis Posture Anteriorly Tilted Palpation Assessment Location buttocks Palpation Location gloria left greater than right piriformis Palpation Findings Soft Tissue Tightness,Muscle Guarding,Tenderness PT-OP-K Range of Motion Start: 12/04/20 08:06 Freq: Status: Active Protocol: Document 12/04/20 10:30 [facility] (Rec: 12/09/20 08:48 [facility] [id number]) Lumbar Spine Range of Motion Lumbar Spine Active Comments limited ROM l/s due to fusion Hip Goniometric Range of Motion Hip gloria Hip ROM WFL Yes Ankle and Foot Goniometric Range of Motion Ankle and Foot ROM Limitations Comments limited gloria due to ankle fusions PT-OP-M Strength Start: 12/04/20 08:06 Freq: Status: Active Protocol: Document 12/04/20 10:30 [facility] (Rec: 12/09/20 08:48 [facility] [id number]) Trunk Strength Trunk Manual Muscle Testing Comments not formally tested due to pain with movement when in supine or moving when laying down. Poor ability to activate core musculature. Hip Strength Hip Manual Muscle Testing Left Flexion (L2) 3+ Fair+ Extension (S1) 4- Good- Abduction 4 Good Adduction 4 Good External Rotation 4- Good- Internal Rotation 4 Good Right Flexion (L2) 3+ Fair+ Extension (S1) 4- Good- Abduction 3+ Fair+ Adduction 4 Good External Rotation 4- Good- Internal Rotation 3+ Fair+ Comments pain with resisted flex, abd, add Knee Strength Knee Manual Muscle Testing Left Flexion (S2) 4- Good- Extension (L3) 4 Good Right Flexion (S2) 4 Good Extension (L3) 4 Good PT-OP-Q Treatments Start: 12/04/20 08:06 Freq: Status: Active Protocol: Document 12/17/20 09:50 [facility] (Rec: 12/17/20 17:00 [facility] [id number]) Therapeutic Exercises Standing Exercises hip flexor stretch Side bilateral Reps/Minutes 2x left, 1x right (painful right) Comments cues for gluteal activation, upright posture Manual Therapy Treatment Soft Tissue Mobilization lateral quads Mobilization Type Instrument Assisted Intensity/Depth Moderate Body Position Hooklying Comments rolling pin IT band Mobilization Type Instrument Assisted Intensity/Depth Moderate Body Position Hooklying Comments rolling pin right piriformis Body Location piriformi & glutes Mobilization Type Myofascial Release,Sustained Pressure,Trigger Point Release Intensity/Depth Moderate Body Position left sidelying Comments lateral scapular border Self-Care/Home Management Treatment Education Patient Education Home Exercise Program,Pain Management Other Education use of rolling pin PT-OP-R Modalities Start: 12/04/20 08:06 Freq: Status: Active Protocol: Document 12/17/20 09:50 [facility] (Rec: 12/17/20 17:00 [facility] [id number]) Hot Pack/Cold Pack Treatment Cold Pack Location right lateral hip, gloria buttocks & LB Patient Position Sidelying Treatment Duration (minutes) 10 Patient Tolerance Good PT-OP-T Assessment and Plan Start: 12/04/20 08:06 Freq: Status: Active Protocol: Document 12/17/20 09:50 [facility] (Rec: 12/17/20 10:31 [facility] [id number]) Physical Therapy Assessment Goals Three Impairment weakness in core and hips Short Term Goal (STG) Upgrade and modify patient's HEP as indicated STG Duration 01/03/21 [facility] Goal (LTG) Patient to be independent with HEP and demonstrate improved strength to at least 4+/5 throughout to allow her to return to her usual activities LTG Duration 02/06/21 Two Impairment pain as high as 9/10 at night [facility] Goal (LTG) Decrease pain to no greater than 3/10 with all usual activities, especially at night when trying to sleep and move in bed LTG Duration 02/06/21 One Impairment activity tolerance Impairment Unable to sit for more than one hour due to hip pain, and has difficulty sleeping and moving in bed due to pain in low back and buttock(wakes every 2 hours) [facility] Goal (LTG) Patient will be able to sit for up to 2 hours with minimal to no pain right hip, and be able to improve sleep to at least 4 hours at a time LTG Duration 02/06/21 Assessment Summary Assessment Patient reported you've found the spots during soft tissue mobilization right buttock, lateral sacral border, right iliacus and psoas. Improved bed mobility with cues for core activation. Able to stretch left hip flexor in standing without pain, attempts to stretch on right caused back pain despite modifications. Physical Therapy Plan Frequency and Duration Frequency of Treatment 2x/Week Duration of Treatment 8 wks Plan of Care Start Date 12/04/20 Plan of Care End Date 02/06/21 Therapeutic Interventions Therapeutic Interventions Aquatic Therapy,Gait Training, Home Exercise Program,Manual Therapy,Neuromuscular Re- education,Patient/Caregiver Education,Self-Care/Home Management,Soft Tissue Mobilization,Taping, Therapeutic Activities, Therapeutic Exercises Modalities Cold Pack/Ice Massage,Electric Stimulation,Hot Packs, Iontophoresis,Ultrasound Next Visit Focus/Plan Next Note Type Treatment Note Next Visit Plan Evaluate response to manual treatment today, review HEP, core stability exercises, bed mobility PNF, manual as needed , assess visceral mobility as potential cause for back pain
--- NOTE | 2020-12-19 12:58 | PT.OTN ---
Current Diagnoses Other intervertebral disc degeneration, lumbar region (12/19/20) Physical Therapy Treatment Note PT-OP-A Visit Information Start: 12/04/20 08:06 Freq: Status: Active Protocol: Document 12/19/20 09:46 [facility] (Rec: 12/19/20 10:31 [facility] [id number]) Out-Patient Physical Therapy Visit Information Visit Information Visit Type Treatment Note Visit Start Time 09:45 Visit Stop Time 10:40 Total Visit Minutes 55 Visit Number 4 Number of [employer] Visits 0 Precautions Precautions PMH: rheumatoid arthritis, GERD, PE, depression, bilateral ankle fusion, left shoulder replacement 2018, right TKA 12/14, spinal fusion 10/24, Charcot foot gloria PT-OP-B Current Condition Start: 12/04/20 08:06 Freq: Status: Active Protocol: Document 12/04/20 10:30 [facility] (Rec: 12/08/20 08:32 [facility] [id number]) Current Condition History of Current Condition Onset Date 6 wks Current Complaints low back, buttock, right hip pain History of Current Condition Per patient typed summary: About 5-6 weeks ago I suddenly developed pain in both buttocks along with some numbness and tingling. It was terrible at night. Could not shift in bed, lift to move heating pad and had a hard time rolling over. I have also been having a great deal of pain in my coccyx area. Nothing seemed to help-muscle relaxers nor Percocet. Upon rising it got better during day. 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 I had this last summer but not nearly as bad. She decided to put me on Celebrex despite reflux and ulcer this summer. I have been on it 5 days now and improving greatly. Her thoughts are that this is some type of inflammatory issue, which people with RA get and are treated with biologics. However she wanted to see if I would improve with PT and meds. Also, due to my fusion, I could just be having symptoms due to offloading in that area. I am seeing Dr. Parr (neurosurgeon) Dec.13 as she wanted me to follow up with him. The second issue is my right hip. I was injected about 3 months ago in the bursa (right side) for bursitis and greater trochanter enthesophytosis. I am seeing him again this Wednesday (Dr. Stokes) [facility], for another injection. The Celebrex has not seemed to help the hip and I have pain walking and laying n the right side. I am also seeing my new foot/ ankle surgeon for a SCEPT Scan next to evaluate my feet better. His name is Dr. Angelo Pope[facility]. Prior Treatments and Tests as above Future Testing and Treatments Planned as above Treatment Goals Patient/Caregiver Goals Decrease pain, be able to sit without pain, improve ability to sleep with less pain Prior Functional Status Baseline Function- ADL's Modified Independent Baseline Function- Mobility Modified Independent Baseline Function- Gait no device, short distances due to foot pain Current Functional Impairments (Reported) Functional Limitations- ADL's painful Functional Limitations- Mobility/Gait limited and painful Functional Limitations- Work/School retired Functional Limitations- Recreation/ more pain to cook and garden Hobbies Functional Limitations- Other interrrupted sleep Personal Factors Other Personal Factors That May Effect chronicity of pain Therapy/Recovery PT-OP-C Subjective Start: 12/04/20 08:06 Freq: Status: Active Protocol: Document 12/19/20 09:46 [facility] (Rec: 12/19/20 10:31 [facility] [id number]) OP-PT Subjective Patient Comments Patient Comments [place] a little better after last session, though that night had momentary ripping sharp pain down left buttock. Last night was difficult, used tennis balls at bedtime. On Celebrex, not feeling any effect from that. Doing HEP including reverse clamshell. Used rolling pin on quad and IT band, felt good. Going to pool for first time tomorrow for aquatic exercise as previously instructed. PT-OP-D Balance Start: 12/04/20 08:06 Freq: Status: Active Protocol: Document 12/04/20 10:30 [facility] (Rec: 12/09/20 08:48 [facility] [id number]) OP-PT Balance Assessment Standing Balance Static Standing Balance Ability Fair Loera Fall Scale Copyright Permission PT-OP-G Mobility & Gait Start: 12/04/20 08:06 Freq: Status: Active Protocol: Document 12/04/20 10:30 [facility] (Rec: 12/09/20 08:48 [facility] [id number]) OP Mobility Evaluation Bed Mobility Rolling independent but painful Supine to and from Sit independent but painful Transfers Sit to Stand decreased weight-bearing right OP Gait Assessment Gait Gait Assistance Required: Independent Assistive Devices Assistive Device None Factors Limiting Gait Function Factors Limiting Gait Function Limited Range of Motion,Pain Comments Gait Comments limited ROM from gloria ankle fusions, wearing orthotics as well as spinal fusion. PT-OP-H Neuro Start: 12/04/20 08:06 Freq: Status: Active Protocol: Document 12/04/20 10:30 [facility] (Rec: 12/09/20 08:48 [facility] [id number]) Sensation Evaluation Gross Sensation Gross Sensation WNL PT-OP-J Posture/Palpation/Skin Start: 12/04/20 08:06 Freq: Status: Active Protocol: Document 12/04/20 10:30 [facility] (Rec: 12/09/20 08:48 [facility] [id number]) Posture Evaluation Position Standing Head/C-Spine Posture Forward Head T-Spine Posture Increased Kyphosis L-Spine Posture Shifted Left Shoulder Posture (L) Rounded Scapula Posture (L) Protracted,(R) Protracted Pelvis Posture Anteriorly Tilted Palpation Assessment Location buttocks Palpation Location gloria left greater than right piriformis Palpation Findings Soft Tissue Tightness,Muscle Guarding,Tenderness PT-OP-K Range of Motion Start: 12/04/20 08:06 Freq: Status: Active Protocol: Document 12/04/20 10:30 [facility] (Rec: 12/09/20 08:48 [facility] [id number]) Lumbar Spine Range of Motion Lumbar Spine Active Comments limited ROM l/s due to fusion Hip Goniometric Range of Motion Hip gloria Hip ROM WFL Yes Ankle and Foot Goniometric Range of Motion Ankle and Foot ROM Limitations Comments limited gloria due to ankle fusions PT-OP-M Strength Start: 12/04/20 08:06 Freq: Status: Active Protocol: Document 12/04/20 10:30 [facility] (Rec: 12/09/20 08:48 [facility] [id number]) Trunk Strength Trunk Manual Muscle Testing Comments not formally tested due to pain with movement when in supine or moving when laying down. Poor ability to activate core musculature. Hip Strength Hip Manual Muscle Testing Left Flexion (L2) 3+ Fair+ Extension (S1) 4- Good- Abduction 4 Good Adduction 4 Good External Rotation 4- Good- Internal Rotation 4 Good Right Flexion (L2) 3+ Fair+ Extension (S1) 4- Good- Abduction 3+ Fair+ Adduction 4 Good External Rotation 4- Good- Internal Rotation 3+ Fair+ Comments pain with resisted flex, abd, add Knee Strength Knee Manual Muscle Testing Left Flexion (S2) 4- Good- Extension (L3) 4 Good Right Flexion (S2) 4 Good Extension (L3) 4 Good PT-OP-Q Treatments Start: 12/04/20 08:06 Freq: Status: Active Protocol: Document 12/19/20 09:46 [facility] (Rec: 12/19/20 10:31 [facility] [id number]) Cardio Equipment Recumbent Stepper (Sci-Fit) Duration (Minutes) 10 Resistance 1 Seat Position 11 Other verbal and manual cues for LE alignment, core activation Therapeutic Exercises Supine Exercises supine to sit Reps/Minutes 1x Comments also sit to supine;cues for core activation, exhale, alignment SKTC Reps/Minutes 2x may Reps/Minutes 10x Comments with TrA activation modfied bridge Reps/Minutes 10x Comments with cues for TrA activation, muscle tightening only glut set Reps/Minutes 10x Comments with TrA TrA Reps/Minutes 10x Manual Therapy Treatment Soft Tissue Mobilization right piriformis Body Location piriformi & glutes Mobilization Type Myofascial Release,Sustained Pressure,Trigger Point Release Intensity/Depth Moderate Body Position left sidelying Comments lateral scapular border Self-Care/Home Management Treatment Education Patient Education Home Exercise Program,Pain Management PT-OP-R Modalities Start: 12/04/20 08:06 Freq: Status: Active Protocol: Document 12/19/20 09:46 [facility] (Rec: 12/19/20 10:31 [facility] [id number]) Hot Pack/Cold Pack Treatment Cold Pack Location right lateral hip, gloria buttocks & LB Patient Position Sidelying Treatment Duration (minutes) 10 Patient Tolerance Good PT-OP-T Assessment and Plan Start: 12/04/20 08:06 Freq: Status: Active Protocol: Document 12/19/20 09:46 [facility] (Rec: 12/19/20 10:31 [facility] [id number]) Physical Therapy Assessment Goals Three Impairment weakness in core and hips Short Term Goal (STG) Upgrade and modify patient's HEP as indicated STG Duration 01/03/21 [employer] [facility] Goal (LTG) Patient to be independent with HEP and demonstrate improved strength to at least 4+/5 throughout to allow her to return to her usual activities LTG Duration 02/06/21 Two Impairment pain as high as 9/10 at night [facility] Goal (LTG) Decrease pain to no greater than 3/10 with all usual activities, especially at night when trying to sleep and move in bed LTG Duration 02/06/21 One Impairment activity tolerance Impairment Unable to sit for more than one hour due to hip pain, and has difficulty sleeping and moving in bed due to pain in low back and buttock(wakes every 2 hours) [facility] Goal (LTG) Patient will be able to sit for up to 2 hours with minimal to no pain right hip, and be able to improve sleep to at least 4 hours at a time LTG Duration 02/06/21 Assessment Summary Assessment Patient reports decreased pain with cues for core activation and exhale during bed mobility, reviewed core stabilization and importance with all activities. Sci-Fit added today with cues for alignment, symmetrical movement and muscle activation , denied pain. Physical Therapy Plan Frequency and Duration Frequency of Treatment 2x/Week Duration of Treatment 8 wks Plan of Care Start Date 12/04/20 Plan of Care End Date 02/06/21 Therapeutic Interventions Therapeutic Interventions Aquatic Therapy,Gait Training, Home Exercise Program,Manual Therapy,Neuromuscular Re- education,Patient/Caregiver Education,Self-Care/Home Management,Soft Tissue Mobilization,Taping, Therapeutic Activities, Therapeutic Exercises Modalities Cold Pack/Ice Massage,Electric Stimulation,Hot Packs, Iontophoresis,Ultrasound Next Visit Focus/Plan Next Note Type Treatment Note Next Visit Plan Review bed mobility, continue progression of core stab with functional activity and for HEP. Manual techniques as indicated.
--- NOTE | 2020-12-24 10:35 | PT.OTN ---
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 Precautions Precautions PMH: rheumatoid arthritis, GERD, PE, depression, bilateral ankle fusion, left shoulder replacement 2018, right TKA 12/14, spinal fusion 10/24, Charcot foot gloria PT-OP-B Current Condition Start: 12/04/20 08:06 Freq: Status: Active Protocol: Document 12/04/20 10:30 [facility] (Rec: 12/08/20 08:32 [facility] [id number]) Current Condition History of Current Condition Onset Date 6 wks Current Complaints low back, buttock, right hip pain History of Current Condition Per patient typed summary: About 5-6 weeks ago I suddenly developed pain in both buttocks along with some numbness and tingling. It was terrible at night. Could not shift in bed, lift to move heating pad and had a hard time rolling over. I have also been having a great deal of pain in my coccyx area. Nothing seemed to help-muscle relaxers nor Percocet. Upon rising it got better during day. 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 I had this last summer but not nearly as bad. She decided to put me on Celebrex despite reflux and ulcer this summer. I have been on it 5 days now and improving greatly. Her thoughts are that this is some type of inflammatory issue, which people with RA get and are treated with biologics. However she wanted to see if I would improve with PT and meds. Also, due to my fusion, I could just be having symptoms due to offloading in that area. I am seeing Dr. Parr (neurosurgeon) Dec.13 as she wanted me to follow up with him. The second issue is my right hip. I was injected about 3 months ago in the bursa (right side) for bursitis and greater trochanter enthesophytosis. I am seeing him again this Wednesday (Dr. Stokes) [facility], for another injection. The Celebrex has not seemed to help the hip and I have pain walking and laying n the right side. I am also seeing my new foot/ ankle surgeon for a SCEPT Scan next to evaluate my feet better. His name is Dr. Angelo Pope-[facility]. Prior Treatments and Tests as above Future Testing and Treatments Planned as above Treatment Goals Patient/Caregiver Goals Decrease pain, be able to sit without pain, improve ability to sleep with less pain Prior Functional Status Baseline Function- ADL's Modified Independent Baseline Function- Mobility Modified Independent Baseline Function- Gait no device, short distances due to foot pain Current Functional Impairments (Reported) Functional Limitations- ADL's painful Functional Limitations- Mobility/Gait limited and painful Functional Limitations- Work/School retired Functional Limitations- Recreation/ more pain to cook and garden Hobbies Functional Limitations- Other interrrupted sleep Personal Factors Other Personal Factors That May Effect chronicity of pain Therapy/Recovery PT-OP-C Subjective Start: 12/04/20 08:06 Freq: Status: Active Protocol: Document 12/24/20 09:48 [facility] (Rec: 12/24/20 10:35 [facility] [id number]) OP-PT Subjective Patient Comments Patient Comments After last session, pain in upper back. Next day went to pool, 30 min of gentle ex as recommended, upper back still painful, took pain medication. 25 min at pool on Wednesday. Yesterday got up with pain buttocks to knees bilaterally, went away after being up for awhile. Lan/Wan Engineer called , increased Lyrica at night to 200mg, was able to sleep all night last night, didn't have pain at night. Sees Dr. De Santiago today at 2:30. PT-OP-D Balance Start: 12/04/20 08:06 Freq: Status: Active Protocol: Document 12/04/20 10:30 [facility] (Rec: 12/09/20 08:48 [facility] [id number]) OP-PT Balance Assessment Standing Balance Static Standing Balance Ability Fair Loera Fall Scale Copyright Permission PT-OP-G Mobility & Gait Start: 12/04/20 08:06 Freq: Status: Active Protocol: Document 12/04/20 10:30 [facility] (Rec: 12/09/20 08:48 [facility] [id number]) OP Mobility Evaluation Bed Mobility Rolling independent but painful Supine to and from Sit independent but painful Transfers Sit to Stand decreased weight-bearing right OP Gait Assessment Gait Gait Assistance Required: Independent Assistive Devices Assistive Device None Factors Limiting Gait Function Factors Limiting Gait Function Limited Range of Motion,Pain Comments Gait Comments limited ROM from gloria ankle fusions, wearing orthotics as well as spinal fusion. PT-OP-H Neuro Start: 12/04/20 08:06 Freq: Status: Active Protocol: Document 12/04/20 10:30 [facility] (Rec: 12/09/20 08:48 [facility] [id number]) Sensation Evaluation Gross Sensation Gross Sensation WNL PT-OP-J Posture/Palpation/Skin Start: 12/04/20 08:06 Freq: Status: Active Protocol: Document 12/04/20 10:30 [facility] (Rec: 12/09/20 08:48 [facility] [id number]) Posture Evaluation Position Standing Head/C-Spine Posture Forward Head T-Spine Posture Increased Kyphosis L-Spine Posture Shifted Left Shoulder Posture (L) Rounded Scapula Posture (L) Protracted,(R) Protracted Pelvis Posture Anteriorly Tilted Palpation Assessment Location buttocks Palpation Location gloria left greater than right piriformis Palpation Findings Soft Tissue Tightness,Muscle Guarding,Tenderness PT-OP-K Range of Motion Start: 12/04/20 08:06 Freq: Status: Active Protocol: Document 12/04/20 10:30 [facility] (Rec: 12/09/20 08:48 [facility] [id number]) Lumbar Spine Range of Motion Lumbar Spine Active Comments limited ROM l/s due to fusion Hip Goniometric Range of Motion Hip gloria Hip ROM WFL Yes Ankle and Foot Goniometric Range of Motion Ankle and Foot ROM Limitations Comments limited gloria due to ankle fusions PT-OP-M Strength Start: 12/04/20 08:06 Freq: Status: Active Protocol: Document 12/04/20 10:30 [facility] (Rec: 12/09/20 08:48 [facility] [id number]) Trunk Strength Trunk Manual Muscle Testing Comments not formally tested due to pain with movement when in supine or moving when laying down. Poor ability to activate core musculature. Hip Strength Hip Manual Muscle Testing Left Flexion (L2) 3+ Fair+ Extension (S1) 4- Good- Abduction 4 Good Adduction 4 Good External Rotation 4- Good- Internal Rotation 4 Good Right Flexion (L2) 3+ Fair+ Extension (S1) 4- Good- Abduction 3+ Fair+ Adduction 4 Good External Rotation 4- Good- Internal Rotation 3+ Fair+ Comments pain with resisted flex, abd, add Knee Strength Knee Manual Muscle Testing Left Flexion (S2) 4- Good- Extension (L3) 4 Good Right Flexion (S2) 4 Good Extension (L3) 4 Good PT-OP-Q Treatments Start: 12/04/20 08:06 Freq: Status: Active Protocol: Document 12/24/20 09:48 [facility] (Rec: 12/24/20 10:35 [facility] [id number]) Cardio Equipment Recumbent Stepper (Sci-Fit) Duration (Minutes) 10 Resistance 1.5 Seat Position 11 Other verbal and manual cues for LE alignment, core activation Gym Equipment Shuttle Recovery Bilateral Squats Details core activation Resistance 50 Shuttle Recovery Platform Stable Reps/Time 10x2 Therapeutic Exercises Supine Exercises supine to sit Reps/Minutes 1x Comments also sit to supine;cues for core activation, exhale, alignment SKTC Reps/Minutes 2x may Reps/Minutes 10x Comments with TrA activation modfied bridge Reps/Minutes 10x Comments with cues for TrA activation, muscle tightening only glut set Reps/Minutes 10x Comments with TrA Manual Therapy Treatment Soft Tissue Mobilization iliopsoas Body Location right Mobilization Type Sustained Pressure Intensity/Depth Moderate Body Position Hooklying glutes Body Location R along sacral and B coccyx border Mobilization Type Strumming,Sustained Pressure Intensity/Depth Moderate Body Position Sidelying lateral quads Mobilization Type Instrument Assisted Intensity/Depth Moderate Body Position Hooklying IT band Mobilization Type Instrument Assisted Intensity/Depth Moderate Body Position Hooklying Comments rolling pin right piriformis Body Location piriformi & glutes Mobilization Type Myofascial Release,Sustained Pressure,Trigger Point Release Intensity/Depth Moderate Body Position left sidelying Comments lateral scapular border Self-Care/Home Management Treatment Education Patient Education Home Exercise Program,Pain Management PT-OP-R Modalities Start: 12/04/20 08:06 Freq: Status: Active Protocol: Document 12/24/20 09:48 [facility] (Rec: 12/24/20 10:35 [facility] [id number]) Hot Pack/Cold Pack Treatment Cold Pack Location right lateral hip, gloria buttocks & LB Patient Position Sidelying Treatment Duration (minutes) 10 Patient Tolerance Good PT-OP-T Assessment and Plan Start: 12/04/20 08:06 Freq: Status: Active Protocol: Document 12/24/20 09:48 [facility] (Rec: 12/24/20 10:35 [facility] [id number]) Physical Therapy Assessment Goals Three Impairment weakness in core and hips Short Term Goal (STG) Upgrade and modify patient's HEP as indicated STG Duration 01/03/21 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 Goal (LTG) Patient to be independent with HEP and demonstrate improved strength to at least 4+/5 throughout to allow her to return to her usual activities LTG Duration 02/06/21 Two Impairment pain as high as 9/10 at night Retirement Goal (LTG) Decrease pain to no greater than 3/10 with all usual activities, especially at night when trying to sleep and move in bed LTG Duration 02/06/21 One Impairment activity tolerance Impairment Unable to sit for more than one hour due to hip pain, and has difficulty sleeping and moving in bed due to pain in low back and buttock(wakes every 2 hours) 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 Goal (LTG) Patient will be able to sit for up to 2 hours with minimal to no pain right hip, and be able to improve sleep to at least 4 hours at a time LTG Duration 02/06/21 Assessment Summary Assessment Decreased pain today with improved exercise tolerance, less cues for back protection with bed mobility. Shuttle leg press added for strengthening and funcitonal core stab. Physical Therapy Plan Frequency and Duration Frequency of Treatment 2x/Week Duration of Treatment 8 wks Plan of Care Start Date 12/04/20 Plan of Care End Date 02/06/21 Therapeutic Interventions Therapeutic Interventions Aquatic Therapy,Gait Training, Home Exercise Program,Manual Therapy,Neuromuscular Re- education,Patient/Caregiver Education,Self-Care/Home Management,Soft Tissue Mobilization,Taping, Therapeutic Activities, Therapeutic Exercises Modalities Cold Pack/Ice Massage,Electric Stimulation,Hot Packs, Iontophoresis,Ultrasound Next Visit Focus/Plan Next Note Type Treatment Note Next Visit Plan Review bed mobility, continue progression of core stab with functional activity and for HEP. Manual techniques as indicated.
--- NOTE | 2020-12-26 17:21 | PT.OTN ---
Current Diagnoses Other intervertebral disc degeneration, lumbar region (12/26/20) Physical Therapy Treatment Note PT-OP-A Visit Information Start: 12/04/20 08:06 Freq: Status: Active Protocol: Document 12/26/20 09:55 [facility] (Rec: 12/26/20 10:13 [facility] [id number]) Out-Patient Physical Therapy Visit Information Visit Information Visit Type Treatment Note Visit Start Time 09:45 Visit Stop Time 10:43 Total Visit Minutes 58 Visit Number 6 Number of STORM SASH MAKER Visits 0 Precautions Precautions PMH: rheumatoid arthritis, GERD, PE, depression, bilateral ankle fusion, left shoulder replacement 2018, right TKA 12/14, spinal fusion 10/24, Charcot foot gloria PT-OP-B Current Condition Start: 12/04/20 08:06 Freq: Status: Active Protocol: Document 12/04/20 10:30 [facility] (Rec: 12/08/20 08:32 [facility] [id number]) Current Condition History of Current Condition Onset Date 6 wks Current Complaints low back, buttock, right hip pain History of Current Condition Per patient typed summary: About 5-6 weeks ago I suddenly developed pain in both buttocks along with some numbness and tingling. It was terrible at night. Could not shift in bed, lift to move heating pad and had a hard time rolling over. I have also been having a great deal of pain in my coccyx area. Nothing seemed to help-muscle relaxers nor Percocet. Upon rising it got better during day. I had a tele-visit with my inclusion special education teacher who agreed with me that this is sacroiliitis. I had this last summer but not nearly as bad. She decided to put me on Celebrex despite reflux and ulcer this summer. I have been on it 5 days now and improving greatly. Her thoughts are that this is some type of inflammatory issue, which people with RA get and are treated with biologics. However she wanted to see if I would improve with PT and meds. Also, due to my fusion, I could just be having symptoms due to offloading in that area. I am seeing Dr. Parr (neurosurgeon) Dec.13 as she wanted me to follow up with him. The second issue is my right hip. I was injected about 3 months ago in the bursa (right side) for bursitis and greater trochanter enthesophytosis. I am seeing him again this Wednesday (Dr. Stokes) [facility], for another injection. The Celebrex has not seemed to help the hip and I have pain walking and laying n the right side. I am also seeing my new foot/ ankle surgeon for a SCEPT Scan next to evaluate my feet better. His name is Dr. Angelo Pope-[facility]. Prior Treatments and Tests as above Future Testing and Treatments Planned as above Treatment Goals Patient/Caregiver Goals Decrease pain, be able to sit without pain, improve ability to sleep with less pain Prior Functional Status Baseline Function- ADL's Modified Independent Baseline Function- Mobility Modified Independent Baseline Function- Gait no device, short distances due to foot pain Current Functional Impairments (Reported) Functional Limitations- ADL's painful Functional Limitations- Mobility/Gait limited and painful Functional Limitations- Work/School retired Functional Limitations- Recreation/ more pain to cook and garden Hobbies Functional Limitations- Other interrrupted sleep Personal Factors Other Personal Factors That May Effect chronicity of pain Therapy/Recovery PT-OP-C Subjective Start: 12/04/20 08:06 Freq: Status: Active Protocol: Document 12/26/20 09:55 [facility] (Rec: 12/26/20 10:13 [facility] [id number]) OP-PT Subjective Patient Comments Patient Comments Saw Dr. De Santiago for her hip pain , he recommended continued PT, will do injection if PT not helpful. Didn't sleep well due to 's cardiac issues. Hip pain worst today. PT-OP-D Balance Start: 12/04/20 08:06 Freq: Status: Active Protocol: Document 12/04/20 10:30 [facility] (Rec: 12/09/20 08:48 [facility] [id number]) OP-PT Balance Assessment Standing Balance Static Standing Balance Ability Fair Loera Fall Scale Copyright Permission PT-OP-G Mobility & Gait Start: 12/04/20 08:06 Freq: Status: Active Protocol: Document 12/04/20 10:30 [facility] (Rec: 12/09/20 08:48 [facility] [id number]) OP Mobility Evaluation Bed Mobility Rolling independent but painful Supine to and from Sit independent but painful Transfers Sit to Stand decreased weight-bearing right OP Gait Assessment Gait Gait Assistance Required: Independent Assistive Devices Assistive Device None Factors Limiting Gait Function Factors Limiting Gait Function Limited Range of Motion,Pain Comments Gait Comments limited ROM from gloria ankle fusions, wearing orthotics as well as spinal fusion. PT-OP-H Neuro Start: 12/04/20 08:06 Freq: Status: Active Protocol: Document 12/04/20 10:30 [facility] (Rec: 12/09/20 08:48 [facility] [id number]) Sensation Evaluation Gross Sensation Gross Sensation WNL PT-OP-J Posture/Palpation/Skin Start: 12/04/20 08:06 Freq: Status: Active Protocol: Document 12/04/20 10:30 [facility] (Rec: 12/09/20 08:48 [facility] [id number]) Posture Evaluation Position Standing Head/C-Spine Posture Forward Head T-Spine Posture Increased Kyphosis L-Spine Posture Shifted Left Shoulder Posture (L) Rounded Scapula Posture (L) Protracted,(R) Protracted Pelvis Posture Anteriorly Tilted Palpation Assessment Location buttocks Palpation Location gloria left greater than right piriformis Palpation Findings Soft Tissue Tightness,Muscle Guarding,Tenderness PT-OP-K Range of Motion Start: 12/04/20 08:06 Freq: Status: Active Protocol: Document 12/04/20 10:30 [facility] (Rec: 12/09/20 08:48 [facility] [id number]) Lumbar Spine Range of Motion Lumbar Spine Active Comments limited ROM l/s due to fusion Hip Goniometric Range of Motion Hip gloria Hip ROM WFL Yes Ankle and Foot Goniometric Range of Motion Ankle and Foot ROM Limitations Comments limited gloria due to ankle fusions PT-OP-M Strength Start: 12/04/20 08:06 Freq: Status: Active Protocol: Document 12/04/20 10:30 [facility] (Rec: 12/09/20 08:48 [facility] [id number]) Trunk Strength Trunk Manual Muscle Testing Comments not formally tested due to pain with movement when in supine or moving when laying down. Poor ability to activate core musculature. Hip Strength Hip Manual Muscle Testing Left Flexion (L2) 3+ Fair+ Extension (S1) 4- Good- Abduction 4 Good Adduction 4 Good External Rotation 4- Good- Internal Rotation 4 Good Right Flexion (L2) 3+ Fair+ Extension (S1) 4- Good- Abduction 3+ Fair+ Adduction 4 Good External Rotation 4- Good- Internal Rotation 3+ Fair+ Comments pain with resisted flex, abd, add Knee Strength Knee Manual Muscle Testing Left Flexion (S2) 4- Good- Extension (L3) 4 Good Right Flexion (S2) 4 Good Extension (L3) 4 Good PT-OP-Q Treatments Start: 12/04/20 08:06 Freq: Status: Active Protocol: Document 12/26/20 09:55 [facility] (Rec: 12/26/20 10:13 [facility] [id number]) Cardio Equipment Recumbent Stepper (Sci-Fit) Duration (Minutes) 10 Resistance 1.5 Seat Position 11 Other verbal and manual cues for LE alignment, core activation Gym Equipment Shuttle Recovery Bilateral Squats Details core activation, ball between knees Resistance 50 Shuttle Recovery Platform Stable Reps/Time 10x2 Manual Therapy Treatment Soft Tissue Mobilization lateral quads Mobilization Type Instrument Assisted Intensity/Depth Moderate Body Position Hooklying IT band Mobilization Type Instrument Assisted Intensity/Depth Moderate Body Position Hooklying Comments rolling pin Self-Care/Home Management Treatment Education Patient Education Home Exercise Program,Pain Management Other Education use of rolling pin, ask to do PT-OP-R Modalities Start: 12/04/20 08:06 Freq: Status: Active Protocol: Document 12/26/20 09:55 [facility] (Rec: 12/26/20 10:13 [facility] [id number]) Hot Pack/Cold Pack Treatment Cold Pack Location right lateral hip, gloria buttocks & LB Patient Position Sidelying Treatment Duration (minutes) 10 Patient Tolerance Good Ultrasound Therapy Treatment Greater trochanter right Treatment Duration (minutes) 8 Patient Position Sidelying Frequency Setting (mHz) 1 Mode Setting Pulsed Duty Cycle 50% Intensity Setting (w/cm2) 1.4 PT-OP-T Assessment and Plan Start: 12/04/20 08:06 Freq: Status: Active Protocol: Document 12/26/20 09:55 [facility] (Rec: 12/26/20 10:13 [facility] [id number]) Physical Therapy Assessment Goals Three Impairment weakness in core and hips Short Term Goal (STG) Upgrade and modify patient's HEP as indicated STG Duration 01/03/21 Half-Way Goal (LTG) Patient to be independent with HEP and demonstrate improved strength to at least 4+/5 throughout to allow her to return to her usual activities LTG Duration 02/06/21 Two Impairment pain as high as 9/10 at night Half-Way Goal (LTG) Decrease pain to no greater than 3/10 with all usual activities, especially at night when trying to sleep and move in bed LTG Duration 02/06/21 One Impairment activity tolerance Impairment Unable to sit for more than one hour due to hip pain, and has difficulty sleeping and moving in bed due to pain in low back and buttock(wakes every 2 hours) Drilling Superintendent Goal (LTG) Patient will be able to sit for up to 2 hours with minimal to no pain right hip, and be able to improve sleep to at least 4 hours at a time LTG Duration 02/06/21 Assessment Summary Assessment Increased emphasis on right greater trochanter today with ultrasound for decreased inflammation and use of rolling pin on IT band and lateral quad. Good tolerance for Sci-Fit and shuttle leg press. Physical Therapy Plan Frequency and Duration Frequency of Treatment 2x/Week Duration of Treatment 8 wks Plan of Care Start Date 12/04/20 Plan of Care End Date 02/06/21 Therapeutic Interventions Therapeutic Interventions Aquatic Therapy,Gait Training, Home Exercise Program,Manual Therapy,Neuromuscular Re- education,Patient/Caregiver Education,Self-Care/Home Management,Soft Tissue Mobilization,Taping, Therapeutic Activities, Therapeutic Exercises Modalities Cold Pack/Ice Massage,Electric Stimulation,Hot Packs, Iontophoresis,Ultrasound Next Visit Focus/Plan Next Note Type Treatment Note Next Visit Plan Continue PT for strengthening, core stabilization, flexibility. Manual techniques and modalities PRN. core strengrthening for bed mobility
--- NOTE | 2020-12-30 18:13 | PT.OTN ---
Current Diagnoses Other intervertebral disc degeneration, lumbar region (12/30/20) Physical Therapy Treatment Note PT-OP-A Visit Information Start: 12/04/20 08:06 Freq: Status: Active Protocol: Document 12/30/20 13:44 [facility] (Rec: 12/30/20 18:10 [facility] [id number]) Out-Patient Physical Therapy Visit Information Visit Information Visit Type Treatment Note Visit Note 09/14 Visit Start Time 13:45 Visit Stop Time 14:38 Total Visit Minutes 53 Visit Number 7 Number of MATHEMATICS LECTURER Visits 0 PT-OP-B Current Condition Start: 12/04/20 08:06 Freq: Status: Active Protocol: Document 12/04/20 10:30 [facility] (Rec: 12/08/20 08:32 [facility] [id number]) Current Condition History of Current Condition Onset Date 6 wks Current Complaints low back, buttock, right hip pain History of Current Condition Per patient typed summary: About 5-6 weeks ago I suddenly developed pain in both buttocks along with some numbness and tingling. It was terrible at night. Could not shift in bed, lift to move heating pad and had a hard time rolling over. I have also been having a great deal of pain in my coccyx area. Nothing seemed to help-muscle relaxers nor Percocet. Upon rising it got better during day. I had a tele-visit with my feed house supervisor who agreed with me that this is sacroiliitis. I had this last summer but not nearly as bad. She decided to put me on Celebrex despite reflux and ulcer this summer. I have been on it 5 days now and improving greatly. Her thoughts are that this is some type of inflammatory issue, which people with RA get and are treated with biologics. However she wanted to see if I would improve with PT and meds. Also, due to my fusion, I could just be having symptoms due to offloading in that area. I am seeing Dr. Parr (neurosurgeon) Dec.13 as she wanted me to follow up with him. The second issue is my right hip. I was injected about 3 months ago in the bursa (right side) for bursitis and greater trochanter enthesophytosis. I am seeing him again this Wednesday (Dr. Stokes) [facility], for another injection. The Celebrex has not seemed to help the hip and I have pain walking and laying n the right side. I am also seeing my new foot/ ankle surgeon for a SCEPT Scan next to evaluate my feet better. His name is Dr. Angelo Pope[facility]. Prior Treatments and Tests as above Future Testing and Treatments Planned as above Treatment Goals Patient/Caregiver Goals Decrease pain, be able to sit without pain, improve ability to sleep with less pain Prior Functional Status Baseline Function- ADL's Modified Independent Baseline Function- Mobility Modified Independent Baseline Function- Gait no device, short distances due to foot pain Current Functional Impairments (Reported) Functional Limitations- ADL's painful Functional Limitations- Mobility/Gait limited and painful Functional Limitations- Work/School retired Functional Limitations- Recreation/ more pain to cook and garden Hobbies Functional Limitations- Other interrrupted sleep Personal Factors Other Personal Factors That May Effect chronicity of pain Therapy/Recovery PT-OP-C Subjective Start: 12/04/20 08:06 Freq: Status: Active Protocol: Document 12/30/20 13:44 [facility] (Rec: 12/30/20 18:10 [facility] [id number]) OP-PT Subjective Patient Comments Patient Comments Pt reports she woke up on Sat w/a ball of swelling on ant ankle/dorsum foot. Pt reports every nigtht she hurts. Its a tad better. Every AM wake up between 3-430 and has pain from sacral area down post thighs to above knees. She notes her prednisone was dropped in Oct and from 2.5-1 mg so she wonders if that could be part of it. PT-OP-D Balance Start: 12/04/20 08:06 Freq: Status: Active Protocol: Document 12/04/20 10:30 [facility] (Rec: 12/09/20 08:48 [facility] [id number]) OP-PT Balance Assessment Standing Balance Static Standing Balance Ability Fair Loera Fall Scale Copyright Permission PT-OP-G Mobility & Gait Start: 12/04/20 08:06 Freq: Status: Active Protocol: Document 12/04/20 10:30 [facility] (Rec: 12/09/20 08:48 [facility] [id number]) OP Mobility Evaluation Bed Mobility Rolling independent but painful Supine to and from Sit independent but painful Transfers Sit to Stand decreased weight-bearing right OP Gait Assessment Gait Gait Assistance Required: Independent Assistive Devices Assistive Device None Factors Limiting Gait Function Factors Limiting Gait Function Limited Range of Motion,Pain Comments Gait Comments limited ROM from gloria ankle fusions, wearing orthotics as well as spinal fusion. PT-OP-H Neuro Start: 12/04/20 08:06 Freq: Status: Active Protocol: Document 12/04/20 10:30 [facility] (Rec: 12/09/20 08:48 [facility] [id number]) Sensation Evaluation Gross Sensation Gross Sensation WNL PT-OP-J Posture/Palpation/Skin Start: 12/04/20 08:06 Freq: Status: Active Protocol: Document 12/04/20 10:30 [facility] (Rec: 12/09/20 08:48 [facility] [id number]) Posture Evaluation Position Standing Head/C-Spine Posture Forward Head T-Spine Posture Increased Kyphosis L-Spine Posture Shifted Left Shoulder Posture (L) Rounded Scapula Posture (L) Protracted,(R) Protracted Pelvis Posture Anteriorly Tilted Palpation Assessment Location buttocks Palpation Location gloria left greater than right piriformis Palpation Findings Soft Tissue Tightness,Muscle Guarding,Tenderness PT-OP-K Range of Motion Start: 12/04/20 08:06 Freq: Status: Active Protocol: Document 12/04/20 10:30 [facility] (Rec: 12/09/20 08:48 [facility] [id number]) Lumbar Spine Range of Motion Lumbar Spine Active Comments limited ROM l/s due to fusion Hip Goniometric Range of Motion Hip gloria Hip ROM WFL Yes Ankle and Foot Goniometric Range of Motion Ankle and Foot ROM Limitations Comments limited gloria due to ankle fusions PT-OP-M Strength Start: 12/04/20 08:06 Freq: Status: Active Protocol: Document 12/04/20 10:30 [facility] (Rec: 12/09/20 08:48 [facility] [id number]) Trunk Strength Trunk Manual Muscle Testing Comments not formally tested due to pain with movement when in supine or moving when laying down. Poor ability to activate core musculature. Hip Strength Hip Manual Muscle Testing Left Flexion (L2) 3+ Fair+ Extension (S1) 4- Good- Abduction 4 Good Adduction 4 Good External Rotation 4- Good- Internal Rotation 4 Good Right Flexion (L2) 3+ Fair+ Extension (S1) 4- Good- Abduction 3+ Fair+ Adduction 4 Good External Rotation 4- Good- Internal Rotation 3+ Fair+ Comments pain with resisted flex, abd, add Knee Strength Knee Manual Muscle Testing Left Flexion (S2) 4- Good- Extension (L3) 4 Good Right Flexion (S2) 4 Good Extension (L3) 4 Good PT-OP-Q Treatments Start: 12/04/20 08:06 Freq: Status: Active Protocol: Document 12/30/20 13:44 [facility] (Rec: 12/30/20 18:10 [facility] [id number]) Cardio Equipment Recumbent Stepper (Sci-Fit) Duration (Minutes) 10 Resistance 1.5 Seat Position 10 Other verbal and manual cues for LE alignment, core activation Therapeutic Exercises Supine Exercises supine to sit Supine Exercise Name rolling B w/cues to look and reach for roll to side Manual Therapy Treatment Soft Tissue Mobilization glutes Body Location L along sacral and coccyx border Mobilization Type Strumming,Sustained Pressure Intensity/Depth Moderate Body Position Sidelying Joint Mobilizations coccyx Direction distraction & LUPA & transverse glide R Grade II Neuro Re-Education Treatment Other Activities PNF Comments 1. ant elevation pelvis w/ sustained holds progressed to COI 2. ant dep scap w/sustained holds porgressed to COI 3. mass flex sustained holds to COI 4.rhythmic initiation mass ext PT-OP-R Modalities Start: 12/04/20 08:06 Freq: Status: Active Protocol: Document 12/30/20 13:44 [facility] (Rec: 12/30/20 18:10 [facility] [id number]) Hot Pack/Cold Pack Treatment Cold Pack Location right lateral hip, gloria buttocks & LB Patient Position Sidelying Treatment Duration (minutes) 10 Patient Tolerance Good Ultrasound Therapy Treatment Greater trochanter right Treatment Duration (minutes) 8 Patient Position Sidelying Frequency Setting (mHz) 1 Mode Setting Pulsed Duty Cycle 50% Intensity Setting (w/cm2) 1.4 PT-OP-T Assessment and Plan Start: 12/04/20 08:06 Freq: Status: Active Protocol: Document 12/30/20 13:44 [facility] (Rec: 12/30/20 18:10 [facility] [id number]) Physical Therapy Assessment Goals Three Impairment weakness in core and hips Short Term Goal (STG) Upgrade and modify patient's HEP as indicated STG Duration 01/03/21 Jail Goal (LTG) Patient to be independent with HEP and demonstrate improved strength to at least 4+/5 throughout to allow her to return to her usual activities LTG Duration 02/06/21 Two Impairment pain as high as 9/10 at night Jail Goal (LTG) Decrease pain to no greater than 3/10 with all usual activities, especially at night when trying to sleep and move in bed LTG Duration 02/06/21 One Impairment activity tolerance Impairment Unable to sit for more than one hour due to hip pain, and has difficulty sleeping and moving in bed due to pain in low back and buttock(wakes every 2 hours) Jail Goal (LTG) Patient will be able to sit for up to 2 hours with minimal to no pain right hip, and be able to improve sleep to at least 4 hours at a time LTG Duration 02/06/21 Assessment Summary Assessment Pt reported feeling pain down post leg and into groin on L side w/pressure on coccyx and LE movement that improved w/ mobilization and would go away w/therapist stopping mob. She has signficiant tightness along coccyx border which likely contributes to pain that occ goes down legs. US repeated d/t pt reproting improved a little w/hip pain after last sesison. Pt still has difficulty w/rolling and required signicant cuieng and require further re-edu Physical Therapy Plan Frequency and Duration Frequency of Treatment 2x/Week Duration of Treatment 8 wks Plan of Care Start Date 12/04/20 Plan of Care End Date 02/06/21 Next Visit Focus/Plan Next Note Type Treatment Note Next Visit Plan Continue PT for strengthening, core stabilization, flexibility. Manual techniques and modalities PRN. core strengthening for bed mobility
--- NOTE | 2021-01-01 08:18 | PT.OTN ---
Current Diagnoses Other intervertebral disc degeneration, lumbar region (01/01/21) Physical Therapy Treatment Note PT-OP-A Visit Information Start: 12/04/20 08:06 Freq: Status: Active Protocol: Document 01/01/21 07:33 [facility] (Rec: 01/01/21 08:18 [facility] [id number]) Out-Patient Physical Therapy Visit Information Visit Information Visit Type Treatment Note Visit Note 10/15 Visit Start Time 07:32 Visit Stop Time 08:23 Total Visit Minutes 51 Visit Number 8 Number of DESIGN PROJECT MANAGER Visits 0 PT-OP-B Current Condition Start: 12/04/20 08:06 Freq: Status: Active Protocol: Document 12/04/20 10:30 [facility] (Rec: 12/08/20 08:32 [facility] [id number]) Current Condition History of Current Condition Onset Date 6 wks Current Complaints low back, buttock, right hip pain History of Current Condition Per patient typed summary: About 5-6 weeks ago I suddenly developed pain in both buttocks along with some numbness and tingling. It was terrible at night. Could not shift in bed, lift to move heating pad and had a hard time rolling over. I have also been having a great deal of pain in my coccyx area. Nothing seemed to help-muscle relaxers nor Percocet. Upon rising it got better during day. I had a tele-visit with my highway patrol officer who agreed with me that this is sacroiliitis. I had this last summer but not nearly as bad. She decided to put me on Celebrex despite reflux and ulcer this summer. I have been on it 5 days now and improving greatly. Her thoughts are that this is some type of inflammatory issue, which people with RA get and are treated with biologics. However she wanted to see if I would improve with PT and meds. Also, due to my fusion, I could just be having symptoms due to offloading in that area. I am seeing Dr. Parr (neurosurgeon) Dec.13 as she wanted me to follow up with him. The second issue is my right hip. I was injected about 3 months ago in the bursa (right side) for bursitis and greater trochanter enthesophytosis. I am seeing him again this Wednesday (Dr. Stokes) [facility], for another injection. The Celebrex has not seemed to help the hip and I have pain walking and laying n the right side. I am also seeing my new foot/ ankle surgeon for a SCEPT Scan next to evaluate my feet better. His name is Dr. Angelo Pope[facility]. Prior Treatments and Tests as above Future Testing and Treatments Planned as above Treatment Goals Patient/Caregiver Goals Decrease pain, be able to sit without pain, improve ability to sleep with less pain Prior Functional Status Baseline Function- ADL's Modified Independent Baseline Function- Mobility Modified Independent Baseline Function- Gait no device, short distances due to foot pain Current Functional Impairments (Reported) Functional Limitations- ADL's painful Functional Limitations- Mobility/Gait limited and painful Functional Limitations- Work/School retired Functional Limitations- Recreation/ more pain to cook and garden Hobbies Functional Limitations- Other interrrupted sleep Personal Factors Other Personal Factors That May Effect chronicity of pain Therapy/Recovery PT-OP-C Subjective Start: 12/04/20 08:06 Freq: Status: Active Protocol: Document 01/01/21 07:33 [facility] (Rec: 01/01/21 08:18 [facility] [id number]) OP-PT Subjective Patient Comments Patient Comments Pt notes I feel like you cured my sacrum issue. It has felt better since session and notes she didn't note pain until she woke up this AM and notes pain down B legs but it went away immediately when she got up. Notes R hip is what is bothering her most today. PT-OP-D Balance Start: 12/04/20 08:06 Freq: Status: Active Protocol: Document 12/04/20 10:30 [facility] (Rec: 12/09/20 08:48 [facility] [id number]) OP-PT Balance Assessment Standing Balance Static Standing Balance Ability Fair Loera Fall Scale Copyright Permission PT-OP-G Mobility & Gait Start: 12/04/20 08:06 Freq: Status: Active Protocol: Document 12/04/20 10:30 [facility] (Rec: 12/09/20 08:48 [facility] [id number]) OP Mobility Evaluation Bed Mobility Rolling independent but painful Supine to and from Sit independent but painful Transfers Sit to Stand decreased weight-bearing right OP Gait Assessment Gait Gait Assistance Required: Independent Assistive Devices Assistive Device None Factors Limiting Gait Function Factors Limiting Gait Function Limited Range of Motion,Pain Comments Gait Comments limited ROM from gloria ankle fusions, wearing orthotics as well as spinal fusion. PT-OP-H Neuro Start: 12/04/20 08:06 Freq: Status: Active Protocol: Document 12/04/20 10:30 [facility] (Rec: 12/09/20 08:48 [facility] [id number]) Sensation Evaluation Gross Sensation Gross Sensation WNL PT-OP-J Posture/Palpation/Skin Start: 12/04/20 08:06 Freq: Status: Active Protocol: Document 12/04/20 10:30 [facility] (Rec: 12/09/20 08:48 [facility] [id number]) Posture Evaluation Position Standing Head/C-Spine Posture Forward Head T-Spine Posture Increased Kyphosis L-Spine Posture Shifted Left Shoulder Posture (L) Rounded Scapula Posture (L) Protracted,(R) Protracted Pelvis Posture Anteriorly Tilted Palpation Assessment Location buttocks Palpation Location gloria left greater than right piriformis Palpation Findings Soft Tissue Tightness,Muscle Guarding,Tenderness PT-OP-K Range of Motion Start: 12/04/20 08:06 Freq: Status: Active Protocol: Document 12/04/20 10:30 [facility] (Rec: 12/09/20 08:48 [facility] [id number]) Lumbar Spine Range of Motion Lumbar Spine Active Comments limited ROM l/s due to fusion Hip Goniometric Range of Motion Hip gloria Hip ROM WFL Yes Ankle and Foot Goniometric Range of Motion Ankle and Foot ROM Limitations Comments limited gloria due to ankle fusions PT-OP-M Strength Start: 12/04/20 08:06 Freq: Status: Active Protocol: Document 12/04/20 10:30 [facility] (Rec: 12/09/20 08:48 [facility] [id number]) Trunk Strength Trunk Manual Muscle Testing Comments not formally tested due to pain with movement when in supine or moving when laying down. Poor ability to activate core musculature. Hip Strength Hip Manual Muscle Testing Left Flexion (L2) 3+ Fair+ Extension (S1) 4- Good- Abduction 4 Good Adduction 4 Good External Rotation 4- Good- Internal Rotation 4 Good Right Flexion (L2) 3+ Fair+ Extension (S1) 4- Good- Abduction 3+ Fair+ Adduction 4 Good External Rotation 4- Good- Internal Rotation 3+ Fair+ Comments pain with resisted flex, abd, add Knee Strength Knee Manual Muscle Testing Left Flexion (S2) 4- Good- Extension (L3) 4 Good Right Flexion (S2) 4 Good Extension (L3) 4 Good PT-OP-Q Treatments Start: 12/04/20 08:06 Freq: Status: Active Protocol: Document 01/01/21 07:33 [facility] (Rec: 01/01/21 08:18 [facility] [id number]) Cardio Equipment Recumbent Stepper (Sci-Fit) Duration (Minutes) 10 Resistance 2 Seat Position 10 Other verbal and manual cues for LE alignment, core activation Therapeutic Exercises Sidelying Exercises hip abd Side right Comments pt unable to do with good form -attempted about 6 times but pain in sacrum clamshell Side right Reps/Minutes 8 Comments pt did well Manual Therapy Treatment Soft Tissue Mobilization glutes Body Location R glutes lat & inf Mobilization Type Strumming,Sustained Pressure Intensity/Depth Moderate Body Position Sidelying IT band Mobilization Type Strumming Intensity/Depth Moderate Body Position Sidelying Comments post border PT-OP-R Modalities Start: 12/04/20 08:06 Freq: Status: Active Protocol: Document 01/01/21 07:33 [facility] (Rec: 01/01/21 08:18 [facility] [id number]) Hot Pack/Cold Pack Treatment Cold Pack Location right lateral hip, gloria buttocks & LB Patient Position Sidelying Treatment Duration (minutes) 10 Patient Tolerance Good Ultrasound Therapy Treatment Greater trochanter right Treatment Duration (minutes) 8 Patient Position Sidelying Frequency Setting (mHz) 1 Mode Setting Pulsed Duty Cycle 50% Intensity Setting (w/cm2) 1.4 PT-OP-T Assessment and Plan Start: 12/04/20 08:06 Freq: Status: Active Protocol: Document 01/01/21 07:33 [facility] (Rec: 01/01/21 08:18 [facility] [id number]) Physical Therapy Assessment Goals Three Impairment weakness in core and hips Short Term Goal (STG) Upgrade and modify patient's HEP as indicated STG Duration 01/03/21 [facility] Goal (LTG) Patient to be independent with HEP and demonstrate improved strength to at least 4+/5 throughout to allow her to return to her usual activities LTG Duration 02/06/21 Two Impairment pain as high as 9/10 at night Fdc Goal (LTG) Decrease pain to no greater than 3/10 with all usual activities, especially at night when trying to sleep and move in bed LTG Duration 02/06/21 One Impairment activity tolerance Impairment Unable to sit for more than one hour due to hip pain, and has difficulty sleeping and moving in bed due to pain in low back and buttock(wakes every 2 hours) [facility]dc Goal (LTG) Patient will be able to sit for up to 2 hours with minimal to no pain right hip, and be able to improve sleep to at least 4 hours at a time LTG Duration 02/06/21 Assessment Summary Assessment Pt had imrpoved ITB mobility w /dec tenderness after manual. She did well with clamshell form but unable to do abd w/ good form. Pt does in pool and educated on keeping toe fwd. Discussed pt getting in pool for refresher w/PT to make sure does exercises well. Physical Therapy Plan Frequency and Duration Frequency of Treatment 2x/Week Duration of Treatment 8 wks Plan of Care Start Date 12/04/20 Plan of Care End Date 02/06/21 Next Visit Focus/Plan Next Note Type Treatment Note Next Visit Plan Continue PT for strengthening, core stabilization, flexibility. Manual techniques and modalities PRN. core strengthening for bed mobility
--- NOTE | 2021-01-06 14:19 | PT.OTN ---
Current Diagnoses Other intervertebral disc degeneration, lumbar region (01/01/21) Physical Therapy Treatment Note PT-OP-A Visit Information Start: 12/04/20 08:06 Freq: Status: Active Protocol: Document 01/06/21 14:12 [facility] (Rec: 01/06/21 14:19 [facility] [id number]) Out-Patient Physical Therapy Visit Information Visit Information Visit Type Treatment Note Visit Note 11/15 Visit Start Time 11:45 Visit Stop Time 12:25 Total Visit Minutes 40 Visit Number 9 Number of MACHINE SHORTHAND TEACHER Visits 0 PT-OP-B Current Condition Start: 12/04/20 08:06 Freq: Status: Active Protocol: Document 12/04/20 10:30 [facility] (Rec: 12/08/20 08:32 [facility] [id number]) Current Condition History of Current Condition Onset Date 6 wks Current Complaints low back, buttock, right hip pain History of Current Condition Per patient typed summary: About 5-6 weeks ago I suddenly developed pain in both buttocks along with some numbness and tingling. It was terrible at night. Could not shift in bed, lift to move heating pad and had a hard time rolling over. I have also been having a great deal of pain in my coccyx area. Nothing seemed to help-muscle relaxers nor Percocet. Upon rising it got better during day. I had a tele-visit with my tax map technician who agreed with me that this is sacroiliitis. I had this last summer but not nearly as bad. She decided to put me on Celebrex despite reflux and ulcer this summer. I have been on it 5 days now and improving greatly. Her thoughts are that this is some type of inflammatory issue, which people with RA get and are treated with biologics. However she wanted to see if I would improve with PT and meds. Also, due to my fusion, I could just be having symptoms due to offloading in that area. I am seeing Dr. Parr (neurosurgeon) Dec.13 as she wanted me to follow up with him. The second issue is my right hip. I was injected about 3 months ago in the bursa (right side) for bursitis and greater trochanter enthesophytosis. I am seeing him again this Wednesday (Dr. Stokes) [facility], for another injection. The Celebrex has not seemed to help the hip and I have pain walking and laying n the right side. I am also seeing my new foot/ ankle surgeon for a SCEPT Scan next to evaluate my feet better. His name is Dr. Angelo [facility]. Prior Treatments and Tests as above Future Testing and Treatments Planned as above Treatment Goals Patient/Caregiver Goals Decrease pain, be able to sit without pain, improve ability to sleep with less pain Prior Functional Status Baseline Function- ADL's Modified Independent Baseline Function- Mobility Modified Independent Baseline Function- Gait no device, short distances due to foot pain Current Functional Impairments (Reported) Functional Limitations- ADL's painful Functional Limitations- Mobility/Gait limited and painful Functional Limitations- Work/School retired Functional Limitations- Recreation/ more pain to cook and garden Hobbies Functional Limitations- Other interrrupted sleep Personal Factors Other Personal Factors That May Effect chronicity of pain Therapy/Recovery PT-OP-C Subjective Start: 12/04/20 08:06 Freq: Status: Active Protocol: Document 01/06/21 14:12 [facility] (Rec: 01/06/21 14:19 [facility] [id number]) OP-PT Subjective Patient Comments Patient Comments Reports her right SI is bothering her more today, no known reason. Comes for aquatic PT today to review her current aquatic exercise program and have corrections and modifications made as needed. States her prevented her from digging up a few plants over the weekend; he probably saved me from hurting myself. PT-OP-D Balance Start: 12/04/20 08:06 Freq: Status: Active Protocol: Document 12/04/20 10:30 [facility] (Rec: 12/09/20 08:48 [facility] [id number]) OP-PT Balance Assessment Standing Balance Static Standing Balance Ability Fair Loera Fall Scale Copyright Permission PT-OP-G Mobility & Gait Start: 12/04/20 08:06 Freq: Status: Active Protocol: Document 12/04/20 10:30 [facility] (Rec: 12/09/20 08:48 [facility] [id number]) OP Mobility Evaluation Bed Mobility Rolling independent but painful Supine to and from Sit independent but painful Transfers Sit to Stand decreased weight-bearing right OP Gait Assessment Gait Gait Assistance Required: Independent Assistive Devices Assistive Device None Factors Limiting Gait Function Factors Limiting Gait Function Limited Range of Motion,Pain Comments Gait Comments limited ROM from gloria ankle fusions, wearing orthotics as well as spinal fusion. PT-OP-H Neuro Start: 12/04/20 08:06 Freq: Status: Active Protocol: Document 12/04/20 10:30 [facility] (Rec: 12/09/20 08:48 [facility] [id number]) Sensation Evaluation Gross Sensation Gross Sensation WNL PT-OP-J Posture/Palpation/Skin Start: 12/04/20 08:06 Freq: Status: Active Protocol: Document 12/04/20 10:30 [facility] (Rec: 12/09/20 08:48 [facility] [id number]) Posture Evaluation Position Standing Head/C-Spine Posture Forward Head T-Spine Posture Increased Kyphosis L-Spine Posture Shifted Left Shoulder Posture (L) Rounded Scapula Posture (L) Protracted,(R) Protracted Pelvis Posture Anteriorly Tilted Palpation Assessment Location buttocks Palpation Location gloria left greater than right piriformis Palpation Findings Soft Tissue Tightness,Muscle Guarding,Tenderness PT-OP-K Range of Motion Start: 12/04/20 08:06 Freq: Status: Active Protocol: Document 12/04/20 10:30 [facility] (Rec: 12/09/20 08:48 [facility] [id number]) Lumbar Spine Range of Motion Lumbar Spine Active Comments limited ROM l/s due to fusion Hip Goniometric Range of Motion Hip gloria Hip ROM WFL Yes Ankle and Foot Goniometric Range of Motion Ankle and Foot ROM Limitations Comments limited gloria due to ankle fusions PT-OP-M Strength Start: 12/04/20 08:06 Freq: Status: Active Protocol: Document 12/04/20 10:30 [facility] (Rec: 12/09/20 08:48 [facility] [id number]) Trunk Strength Trunk Manual Muscle Testing Comments not formally tested due to pain with movement when in supine or moving when laying down. Poor ability to activate core musculature. Hip Strength Hip Manual Muscle Testing Left Flexion (L2) 3+ Fair+ Extension (S1) 4- Good- Abduction 4 Good Adduction 4 Good External Rotation 4- Good- Internal Rotation 4 Good Right Flexion (L2) 3+ Fair+ Extension (S1) 4- Good- Abduction 3+ Fair+ Adduction 4 Good External Rotation 4- Good- Internal Rotation 3+ Fair+ Comments pain with resisted flex, abd, add Knee Strength Knee Manual Muscle Testing Left Flexion (S2) 4- Good- Extension (L3) 4 Good Right Flexion (S2) 4 Good Extension (L3) 4 Good PT-OP-Q Treatments Start: 12/04/20 08:06 Freq: Status: Active Protocol: Document 01/01/21 07:33 [facility] (Rec: 01/01/21 08:18 [facility] [id number]) Cardio Equipment Recumbent Stepper (Sci-Fit) Duration (Minutes) 10 Resistance 2 Seat Position 10 Other verbal and manual cues for LE alignment, core activation Therapeutic Exercises Sidelying Exercises hip abd Side right Comments pt unable to do with good form -attempted about 6 times but pain in sacrum clamshell Side right Reps/Minutes 8 Comments pt did well Manual Therapy Treatment Soft Tissue Mobilization glutes Body Location R glutes lat & inf Mobilization Type Strumming,Sustained Pressure Intensity/Depth Moderate Body Position Sidelying IT band Mobilization Type Strumming Intensity/Depth Moderate Body Position Sidelying Comments post border PT-OP-R Modalities Start: 12/04/20 08:06 Freq: Status: Active Protocol: Document 01/01/21 07:33 [facility] (Rec: 01/01/21 08:18 [facility] [id number]) Hot Pack/Cold Pack Treatment Cold Pack Location right lateral hip, gloria buttocks & LB Patient Position Sidelying Treatment Duration (minutes) 10 Patient Tolerance Good Ultrasound Therapy Treatment Greater trochanter right Treatment Duration (minutes) 8 Patient Position Sidelying Frequency Setting (mHz) 1 Mode Setting Pulsed Duty Cycle 50% Intensity Setting (w/cm2) 1.4 PT-OP-T Assessment and Plan Start: 12/04/20 08:06 Freq: Status: Active Protocol: Document 01/06/21 14:12 [facility] (Rec: 01/06/21 14:19 [facility] [id number]) Physical Therapy Assessment Goals Three Impairment weakness in core and hips Short Term Goal (STG) Upgrade and modify patient's HEP as indicated STG Duration 01/03/21 Coconut Candy Maker Goal (LTG) Patient to be independent with HEP and demonstrate improved strength to at least 4+/5 throughout to allow her to return to her usual activities LTG Duration 02/06/21 Two Impairment pain as high as 9/10 at night Coconut Candy Maker Goal (LTG) Decrease pain to no greater than 3/10 with all usual activities, especially at night when trying to sleep and move in bed LTG Duration 02/06/21 One Impairment activity tolerance Impairment Unable to sit for more than one hour due to hip pain, and has difficulty sleeping and moving in bed due to pain in low back and buttock(wakes every 2 hours) Coconut Candy Maker Goal (LTG) Patient will be able to sit for up to 2 hours with minimal to no pain right hip, and be able to improve sleep to at least 4 hours at a time LTG Duration 02/06/21 Assessment Summary Assessment Multiple corrections and cues given to patient regarding her exercise performance in the pool related to alignment, stabilization, and size of movement. She demonstrated good understanding and will be issued an updated written handout. To continue aquatic exercise independently unless further assistance deemed necessary, will continue land- based PT with emphais on manual techniques and core stabilization. Physical Therapy Plan Frequency and Duration Frequency of Treatment 2x/Week Duration of Treatment 8 wks Plan of Care Start Date 12/04/20 Plan of Care End Date 02/06/21 Therapeutic Interventions Therapeutic Interventions Aquatic Therapy,Gait Training, Home Exercise Program,Manual Therapy,Neuromuscular Re- education,Patient/Caregiver Education,Self-Care/Home Management,Soft Tissue Mobilization,Taping, Therapeutic Activities, Therapeutic Exercises Modalities Cold Pack/Ice Massage,Electric Stimulation,Hot Packs, Iontophoresis,Ultrasound Next Visit Focus/Plan Next Note Type Treatment Note Next Visit Plan Continue land-based PT with emphasis on manual techniques, core stab and strengthening including with functiona task of bed mobility.
--- NOTE | 2021-01-07 15:37 | PT.OTN ---
Current Diagnoses Other intervertebral disc degeneration, lumbar region (01/07/21) Physical Therapy Treatment Note PT-OP-A Visit Information Start: 12/04/20 08:06 Freq: Status: Active Protocol: Document 01/07/21 13:52 [facility] (Rec: 01/07/21 15:35 [facility] [id number]) Out-Patient Physical Therapy Visit Information Visit Information Visit Type Progress Note Visit Note 03/17 Visit Start Time 13:46 Visit Stop Time 14:40 Total Visit Minutes 54 Visit Number 10 Number of MICROBIOLOGY DIRECTOR Visits 0 PT-OP-B Current Condition Start: 12/04/20 08:06 Freq: Status: Active Protocol: Document 12/04/20 10:30 [facility] (Rec: 12/08/20 08:32 [facility] [id number]) Current Condition History of Current Condition Onset Date 6 wks Current Complaints low back, buttock, right hip pain History of Current Condition Per patient typed summary: About 5-6 weeks ago I suddenly developed pain in both buttocks along with some numbness and tingling. It was terrible at night. Could not shift in bed, lift to move heating pad and had a hard time rolling over. I have also been having a great deal of pain in my coccyx area. Nothing seemed to help-muscle relaxers nor Percocet. Upon rising it got better during day. I had a tele-visit with my trouble tracer who agreed with me that this is sacroiliitis. I had this last summer but not nearly as bad. She decided to put me on Celebrex despite reflux and ulcer this summer. I have been on it 5 days now and improving greatly. Her thoughts are that this is some type of inflammatory issue, which people with RA get and are treated with biologics. However she wanted to see if I would improve with PT and meds. Also, due to my fusion, I could just be having symptoms due to offloading in that area. I am seeing Dr. Parr (neurosurgeon) Dec.13 as she wanted me to follow up with him. The second issue is my right hip. I was injected about 3 months ago in the bursa (right side) for bursitis and greater trochanter enthesophytosis. I am seeing him again this Wednesday (Dr. Stokes) [facility], for another injection. The Celebrex has not seemed to help the hip and I have pain walking and laying n the right side. I am also seeing my new foot/ ankle surgeon for a SCEPT Scan next to evaluate my feet better. His name is Dr. Angelo [facility]. Prior Treatments and Tests as above Future Testing and Treatments Planned as above Treatment Goals Patient/Caregiver Goals Decrease pain, be able to sit without pain, improve ability to sleep with less pain Prior Functional Status Baseline Function- ADL's Modified Independent Baseline Function- Mobility Modified Independent Baseline Function- Gait no device, short distances due to foot pain Current Functional Impairments (Reported) Functional Limitations- ADL's painful Functional Limitations- Mobility/Gait limited and painful Functional Limitations- Work/School retired Functional Limitations- Recreation/ more pain to cook and garden Hobbies Functional Limitations- Other interrrupted sleep Personal Factors Other Personal Factors That May Effect chronicity of pain Therapy/Recovery PT-OP-C Subjective Start: 12/04/20 08:06 Freq: Status: Active Protocol: Document 01/07/21 13:52 [facility] (Rec: 01/07/21 15:35 [facility] [id number]) OP-PT Subjective Patient Comments Patient Comments Pt did well with pool exercises and liked the added ones but idd note some pain in R SI/hip. PT-OP-D Balance Start: 12/04/20 08:06 Freq: Status: Active Protocol: Document 12/04/20 10:30 [facility] (Rec: 12/09/20 08:48 [facility] [id number]) OP-PT Balance Assessment Standing Balance Static Standing Balance Ability Fair Loera Fall Scale Copyright Permission PT-OP-G Mobility & Gait Start: 12/04/20 08:06 Freq: Status: Active Protocol: Document 12/04/20 10:30 [facility] (Rec: 12/09/20 08:48 [facility] [id number]) OP Mobility Evaluation Bed Mobility Rolling independent but painful Supine to and from Sit independent but painful Transfers Sit to Stand decreased weight-bearing right OP Gait Assessment Gait Gait Assistance Required: Independent Assistive Devices Assistive Device None Factors Limiting Gait Function Factors Limiting Gait Function Limited Range of Motion,Pain Comments Gait Comments limited ROM from gloria ankle fusions, wearing orthotics as well as spinal fusion. PT-OP-H Neuro Start: 12/04/20 08:06 Freq: Status: Active Protocol: Document 12/04/20 10:30 [facility] (Rec: 12/09/20 08:48 [facility] [id number]) Sensation Evaluation Gross Sensation Gross Sensation WNL PT-OP-J Posture/Palpation/Skin Start: 12/04/20 08:06 Freq: Status: Active Protocol: Document 12/04/20 10:30 [facility] (Rec: 12/09/20 08:48 [facility] [id number]) Posture Evaluation Position Standing Head/C-Spine Posture Forward Head T-Spine Posture Increased Kyphosis L-Spine Posture Shifted Left Shoulder Posture (L) Rounded Scapula Posture (L) Protracted,(R) Protracted Pelvis Posture Anteriorly Tilted Palpation Assessment Location buttocks Palpation Location gloria left greater than right piriformis Palpation Findings Soft Tissue Tightness,Muscle Guarding,Tenderness PT-OP-K Range of Motion Start: 12/04/20 08:06 Freq: Status: Active Protocol: Document 12/04/20 10:30 [facility] (Rec: 12/09/20 08:48 [facility] [id number]) Lumbar Spine Range of Motion Lumbar Spine Active Comments limited ROM l/s due to fusion Hip Goniometric Range of Motion Hip gloria Hip ROM WFL Yes Ankle and Foot Goniometric Range of Motion Ankle and Foot ROM Limitations Comments limited gloria due to ankle fusions PT-OP-M Strength Start: 12/04/20 08:06 Freq: Status: Active Protocol: Document 01/07/21 13:52 [facility] (Rec: 01/07/21 15:35 [facility] [id number]) Hip Strength Hip Manual Muscle Testing Left Flexion (L2) 4 Good Extension (S1) 4 Good Abduction 4 Good Adduction 4+ Good+ External Rotation 4 Good Internal Rotation 4+ Good+ Right Flexion (L2) 4 Good Extension (S1) 4- Good- Abduction 3+ Fair+ Adduction 4 Good External Rotation 4 Good Internal Rotation 4+ Good+ Comments pain with resisted abd, add, ext Knee Strength Knee Manual Muscle Testing Left Flexion (S2) 5 Normal Extension (L3) 4+ Good+ Right Flexion (S2) 5 Normal Extension (L3) 4+ Good+ PT-OP-Q Treatments Start: 12/04/20 08:06 Freq: Status: Active Protocol: Document 01/07/21 13:52 [facility] (Rec: 01/07/21 15:35 [facility] [id number]) Cardio Equipment Recumbent Stepper (Sci-Fit) Duration (Minutes) 10 Resistance 2 Seat Position 10 Other verbal and manual cues for LE alignment, core activation Therapeutic Exercises Supine Exercises ER Supine Exercise Name hip IR/ER in neutral, abd & add positions Side bilateral Reps/Minutes 5 ea position Manual Therapy Treatment Soft Tissue Mobilization iliopsoas Body Location right Mobilization Type Sustained Pressure Intensity/Depth Moderate Body Position Hooklying Comments w/hip iR/ER Joint Mobilizations hip Joint R inf glide FM PT-OP-R Modalities Start: 12/04/20 08:06 Freq: Status: Active Protocol: Document 01/07/21 13:52 [facility] (Rec: 01/07/21 15:35 [facility] [id number]) Hot Pack/Cold Pack Treatment Cold Pack Location right lateral hip, gloria buttocks & LB Patient Position Sidelying Treatment Duration (minutes) 10 Patient Tolerance Good Ultrasound Therapy Treatment Greater trochanter right Treatment Duration (minutes) 8 Patient Position Sidelying Frequency Setting (mHz) 1 Mode Setting Pulsed Duty Cycle 50% Intensity Setting (w/cm2) 1.4 PT-OP-T Assessment and Plan Start: 12/04/20 08:06 Freq: Status: Active Protocol: Document 01/07/21 13:52 [facility] (Rec: 01/07/21 15:35 [facility] [id number]) Physical Therapy Assessment Goals Three Impairment weakness in core and hips Short Term Goal (STG) Upgrade and modify patient's HEP as indicated STG Duration 01/03/21 [employer] Internship Goal (LTG) Patient to be independent with HEP and demonstrate improved strength to at least 4+/5 throughout to allow her to return to her usual activities 01/07-signficantly improved LTG Duration 02/06/21 Two Impairment pain as high as 9/10 at night [employer] Goal (LTG) Decrease pain to no greater than 3/10 with all usual activities, especially at night when trying to sleep and move in bed 01/07-4/10 at its greatest LTG Duration 02/06/21 One Impairment activity tolerance Impairment Unable to sit for more than one hour due to hip pain, and has difficulty sleeping and moving in bed due to pain in low back and buttock(wakes every 2 hours) [employer] Goal (LTG) Patient will be able to sit for up to 2 hours with minimal to no pain right hip, and be able to improve sleep to at least 4 hours at a time LTG Duration achieved 01/07-wakes up around 3-4 am (6 hrs in) Assessment Summary Assessment Pt has made excellent progress functionally Physical Therapy Plan Frequency and Duration Frequency of Treatment 2x/Week Duration of Treatment 8 wks Plan of Care Start Date 12/04/20 Plan of Care End Date 02/06/21 Next Visit Focus/Plan Next Note Type Treatment Note Next Visit Plan Continue land-based PT with emphasis on manual techniques, core stab and strengthening including with functiona task of bed mobility.
--- NOTE | 2021-01-07 15:41 | PT.OPPN ---
Current Diagnoses Other intervertebral disc degeneration, lumbar region (01/07/21) Physical Therapy Progress Note PT-OP-A Visit Information Start: 12/04/20 08:06 Freq: Status: Active Protocol: Document 01/07/21 13:52 [facility] (Rec: 01/07/21 15:35 [facility] [id number]) Out-Patient Physical Therapy Visit Information Visit Information Visit Type Progress Note Visit Note 03/17 Visit Start Time 13:46 Visit Stop Time 14:40 Total Visit Minutes 54 Visit Number 10 Number of OUTREACH WORKER Visits 0 PT-OP-B Current Condition Start: 12/04/20 08:06 Freq: Status: Active Protocol: Document 12/04/20 10:30 [facility] (Rec: 12/08/20 08:32 [facility] [id number]) Current Condition History of Current Condition Onset Date 6 wks Current Complaints low back, buttock, right hip pain History of Current Condition Per patient typed summary: About 5-6 weeks ago I suddenly developed pain in both buttocks along with some numbness and tingling. It was terrible at night. Could not shift in bed, lift to move heating pad and had a hard time rolling over. I have also been having a great deal of pain in my coccyx area. Nothing seemed to help-muscle relaxers nor Percocet. Upon rising it got better during day. I had a tele-visit with my audiovisual lead technician who agreed with me that this is sacroiliitis. I had this last summer but not nearly as bad. She decided to put me on Celebrex despite reflux and ulcer this summer. I have been on it 5 days now and improving greatly. Her thoughts are that this is some type of inflammatory issue, which people with RA get and are treated with biologics. However she wanted to see if I would improve with PT and meds. Also, due to my fusion, I could just be having symptoms due to offloading in that area. I am seeing Dr. Parr (neurosurgeon) Dec.13 as she wanted me to follow up with him. The second issue is my right hip. I was injected about 3 months ago in the bursa (right side) for bursitis and greater trochanter enthesophytosis. I am seeing him again this Wednesday (Dr. Stokes) [facility], for another injection. The Celebrex has not seemed to help the hip and I have pain walking and laying n the right side. I am also seeing my new foot/ ankle surgeon for a SCEPT Scan next to evaluate my feet better. His name is Dr. Angelo Pope-[facility]. Prior Treatments and Tests as above Future Testing and Treatments Planned as above Treatment Goals Patient/Caregiver Goals Decrease pain, be able to sit without pain, improve ability to sleep with less pain Prior Functional Status Baseline Function- ADL's Modified Independent Baseline Function- Mobility Modified Independent Baseline Function- Gait no device, short distances due to foot pain Current Functional Impairments (Reported) Functional Limitations- ADL's painful Functional Limitations- Mobility/Gait limited and painful Functional Limitations- Work/School retired Functional Limitations- Recreation/ more pain to cook and garden Hobbies Functional Limitations- Other interrrupted sleep Personal Factors Other Personal Factors That May Effect chronicity of pain Therapy/Recovery PT-OP-C Subjective Start: 12/04/20 08:06 Freq: Status: Active Protocol: Document 01/07/21 13:52 [facility] (Rec: 01/07/21 15:35 [facility] [id number]) OP-PT Subjective Patient Comments Patient Comments Pt did well with pool exercises and liked the added ones but idd note some pain in R SI/hip. PT-OP-D Balance Start: 12/04/20 08:06 Freq: Status: Active Protocol: Document 12/04/20 10:30 [facility] (Rec: 12/09/20 08:48 [facility] [id number]) OP-PT Balance Assessment Standing Balance Static Standing Balance Ability Fair Loera Fall Scale Copyright Permission Evaristo JM, Evaristo RM, Jason SJ. Development of a scale to identify the fall- prone patient. Can J Aging 1989;8;366-7. Cristian Loera (2009). Preventing patient falls. (2nd ed). [place]: Mg. PT-OP-G Mobility & Gait Start: 12/04/20 08:06 Freq: Status: Active Protocol: Document 12/04/20 10:30 [facility] (Rec: 12/09/20 08:48 [facility] [id number]) OP Mobility Evaluation Bed Mobility Rolling independent but painful Supine to and from Sit independent but painful Transfers Sit to Stand decreased weight-bearing right OP Gait Assessment Gait Gait Assistance Required: Independent Assistive Devices Assistive Device None Factors Limiting Gait Function Factors Limiting Gait Function Limited Range of Motion,Pain Comments Gait Comments limited ROM from gloria ankle fusions, wearing orthotics as well as spinal fusion. PT-OP-H Neuro Start: 12/04/20 08:06 Freq: Status: Active Protocol: Document 12/04/20 10:30 [facility] (Rec: 12/09/20 08:48 [facility] [id number]) Sensation Evaluation Gross Sensation Gross Sensation WNL PT-OP-J Posture/Palpation/Skin Start: 12/04/20 08:06 Freq: Status: Active Protocol: Document 12/04/20 10:30 [facility] (Rec: 12/09/20 08:48 [facility] [id number]) Posture Evaluation Position Standing Head/C-Spine Posture Forward Head T-Spine Posture Increased Kyphosis L-Spine Posture Shifted Left Shoulder Posture (L) Rounded Scapula Posture (L) Protracted,(R) Protracted Pelvis Posture Anteriorly Tilted Palpation Assessment Location buttocks Palpation Location gloria left greater than right piriformis Palpation Findings Soft Tissue Tightness,Muscle Guarding,Tenderness PT-OP-K Range of Motion Start: 12/04/20 08:06 Freq: Status: Active Protocol: Document 12/04/20 10:30 [facility] (Rec: 12/09/20 08:48 [facility] [id number]) Lumbar Spine Range of Motion Lumbar Spine Active Comments limited ROM l/s due to fusion Hip Goniometric Range of Motion Hip Measured in Degrees gloria Hip ROM WFL Yes Ankle and Foot Goniometric Range of Motion Ankle and Foot ROM Limitations Comments limited gloria due to ankle fusions PT-OP-M Strength Start: 12/04/20 08:06 Freq: Status: Active Protocol: Document 01/07/21 13:52 [facility] (Rec: 01/07/21 15:35 [facility] [id number]) Hip Strength Hip Manual Muscle Testing Left Flexion (L2) 4 Good Extension (S1) 4 Good Abduction 4 Good Adduction 4+ Good+ External Rotation 4 Good Internal Rotation 4+ Good+ Right Flexion (L2) 4 Good Extension (S1) 4- Good- Abduction 3+ Fair+ Adduction 4 Good External Rotation 4 Good Internal Rotation 4+ Good+ Comments pain with resisted abd, add, ext Knee Strength Knee Manual Muscle Testing Left Flexion (S2) 5 Normal Extension (L3) 4+ Good+ Right Flexion (S2) 5 Normal Extension (L3) 4+ Good+ PT-OP-T Assessment and Plan Start: 12/04/20 08:06 Freq: Status: Active Protocol: Document 01/07/21 13:52 [facility] (Rec: 01/07/21 15:35 [facility] [id number]) Physical Therapy Assessment Goals Three Impairment weakness in core and hips Short Term Goal (STG) Upgrade and modify patient's HEP as indicated STG Duration 01/03/21 Residential Goal (LTG) Patient to be independent with HEP and demonstrate improved strength to at least 4+/5 throughout to allow her to return to her usual activities 01/07-signficantly improved LTG Duration 02/06/21 Two Impairment pain as high as 9/10 at night Residential Goal (LTG) Decrease pain to no greater than 3/10 with all usual activities, especially at night when trying to sleep and move in bed 01/07-4/10 at its greatest LTG Duration 02/06/21 One Impairment activity tolerance Impairment Unable to sit for more than one hour due to hip pain, and has difficulty sleeping and moving in bed due to pain in low back and buttock(wakes every 2 hours) Promotions Officer Goal (LTG) Patient will be able to sit for up to 2 hours with minimal to no pain right hip, and be able to improve sleep to at least 4 hours at a time LTG Duration achieved 01/07-wakes up around 3-4 am (6 hrs in) Assessment Summary Assessment Pt has made excellent progress functionally with her strength, pain level, ability to sleep and ability to sit signficantly improved. SHe cont to have pain and be limited with mobility w/occ sharp pain in SI or sacral area. She was encouraged to do the hip rotation exercise before trying to get out of bed in order to dec pain w/leg moving across for roll out of bed. Physical Therapy Plan Frequency and Duration Frequency of Treatment 2x/Week Duration of Treatment 8 wks Plan of Care Start Date 12/04/20 Plan of Care End Date 02/06/21 Next Visit Focus/Plan Next Note Type Treatment Note Next Visit Plan Continue land-based PT with emphasis on manual techniques, core stab and strengthening including with functiona task of bed mobility.
--- NOTE | 2021-01-14 16:22 | PT.OTN ---
Current Diagnoses Other intervertebral disc degeneration, lumbar region (01/14/21) Physical Therapy Treatment Note PT-OP-A Visit Information Start: 12/04/20 08:06 Freq: Status: Active Protocol: Document 01/14/21 14:35 [facility] (Rec: 01/14/21 15:18 [facility] [id number]) Out-Patient Physical Therapy Visit Information Visit Information Visit Type Progress Note Visit Note 04/17 Visit Start Time 13:46 Visit Stop Time 14:45 Total Visit Minutes 59 Visit Number 11 Number of YOUTH ASSOCIATE Visits 0 PT-OP-B Current Condition Start: 12/04/20 08:06 Freq: Status: Active Protocol: Document 12/04/20 10:30 [facility] (Rec: 12/08/20 08:32 [facility] [id number]) Current Condition History of Current Condition Onset Date 6 wks Current Complaints low back, buttock, right hip pain History of Current Condition Per patient typed summary: About 5-6 weeks ago I suddenly developed pain in both buttocks along with some numbness and tingling. It was terrible at night. Could not shift in bed, lift to move heating pad and had a hard time rolling over. I have also been having a great deal of pain in my coccyx area. Nothing seemed to help-muscle relaxers nor Percocet. Upon rising it got better during day. I had a tele-visit with my federal district law clerk who agreed with me that this is sacroiliitis. I had this last summer but not nearly as bad. She decided to put me on Celebrex despite reflux and ulcer this summer. I have been on it 5 days now and improving greatly. Her thoughts are that this is some type of inflammatory issue, which people with RA get and are treated with biologics. However she wanted to see if I would improve with PT and meds. Also, due to my fusion, I could just be having symptoms due to offloading in that area. I am seeing Dr. Parr (neurosurgeon) Dec.13 as she wanted me to follow up with him. The second issue is my right hip. I was injected about 3 months ago in the bursa (right side) for bursitis and greater trochanter enthesophytosis. I am seeing him again this Wednesday (Dr. Stokes) [facility], for another injection. The Celebrex has not seemed to help the hip and I have pain walking and laying n the right side. I am also seeing my new foot/ ankle surgeon for a SCEPT Scan next to evaluate my feet better. His name is Dr. Angelo [facility]. Prior Treatments and Tests as above Future Testing and Treatments Planned as above Treatment Goals Patient/Caregiver Goals Decrease pain, be able to sit without pain, improve ability to sleep with less pain Prior Functional Status Baseline Function- ADL's Modified Independent Baseline Function- Mobility Modified Independent Baseline Function- Gait no device, short distances due to foot pain Current Functional Impairments (Reported) Functional Limitations- ADL's painful Functional Limitations- Mobility/Gait limited and painful Functional Limitations- Work/School retired Functional Limitations- Recreation/ more pain to cook and garden Hobbies Functional Limitations- Other interrrupted sleep Personal Factors Other Personal Factors That May Effect chronicity of pain Therapy/Recovery PT-OP-C Subjective Start: 12/04/20 08:06 Freq: Status: Active Protocol: Document 01/14/21 14:35 [facility] (Rec: 01/14/21 15:18 [facility] [id number]) OP-PT Subjective Patient Comments Patient Comments virtual visit with Dr. Subramanian, agreed the symptoms sound like sacroiliitis. Being referred to Dane Oconnor MD for injection to SI. Sees federal district law clerk on Wednesday, has increased Prednisone dose to 2 .5 mg. Having SPCET scan of right foot recommended by orthopedist from [facility] [place]. States the day after her last PT appt with reassessment was hurting, poor tolerance for sitting. Went to the pool and pain improved. Hip pain not as bad. PT-OP-D Balance Start: 12/04/20 08:06 Freq: Status: Active Protocol: Document 12/04/20 10:30 [facility] (Rec: 12/09/20 08:48 [facility] [id number]) OP-PT Balance Assessment Standing Balance Static Standing Balance Ability Fair Loera Fall Scale Copyright Permission PT-OP-G Mobility & Gait Start: 12/04/20 08:06 Freq: Status: Active Protocol: Document 12/04/20 10:30 [facility] (Rec: 12/09/20 08:48 [facility] [id number]) OP Mobility Evaluation Bed Mobility Rolling independent but painful Supine to and from Sit independent but painful Transfers Sit to Stand decreased weight-bearing right OP Gait Assessment Gait Gait Assistance Required: Independent Assistive Devices Assistive Device None Factors Limiting Gait Function Factors Limiting Gait Function Limited Range of Motion,Pain Comments Gait Comments limited ROM from gloria ankle fusions, wearing orthotics as well as spinal fusion. PT-OP-H Neuro Start: 12/04/20 08:06 Freq: Status: Active Protocol: Document 12/04/20 10:30 [facility] (Rec: 12/09/20 08:48 [facility] [id number]) Sensation Evaluation Gross Sensation Gross Sensation WNL PT-OP-J Posture/Palpation/Skin Start: 12/04/20 08:06 Freq: Status: Active Protocol: Document 12/04/20 10:30 [facility] (Rec: 12/09/20 08:48 [facility] [id number]) Posture Evaluation Position Standing Head/C-Spine Posture Forward Head T-Spine Posture Increased Kyphosis L-Spine Posture Shifted Left Shoulder Posture (L) Rounded Scapula Posture (L) Protracted,(R) Protracted Pelvis Posture Anteriorly Tilted Palpation Assessment Location buttocks Palpation Location gloria left greater than right piriformis Palpation Findings Soft Tissue Tightness,Muscle Guarding,Tenderness PT-OP-K Range of Motion Start: 12/04/20 08:06 Freq: Status: Active Protocol: Document 12/04/20 10:30 [facility] (Rec: 12/09/20 08:48 [facility] [id number]) Lumbar Spine Range of Motion Lumbar Spine Active Comments limited ROM l/s due to fusion Hip Goniometric Range of Motion Hip gloria Hip ROM WFL Yes Ankle and Foot Goniometric Range of Motion Ankle and Foot ROM Limitations Comments limited gloria due to ankle fusions PT-OP-M Strength Start: 12/04/20 08:06 Freq: Status: Active Protocol: Document 01/07/21 13:52 [facility] (Rec: 01/07/21 15:35 [facility] [id number]) Hip Strength Hip Manual Muscle Testing Left Flexion (L2) 4 Good Extension (S1) 4 Good Abduction 4 Good Adduction 4+ Good+ External Rotation 4 Good Internal Rotation 4+ Good+ Right Flexion (L2) 4 Good Extension (S1) 4- Good- Abduction 3+ Fair+ Adduction 4 Good External Rotation 4 Good Internal Rotation 4+ Good+ Comments pain with resisted abd, add, ext Knee Strength Knee Manual Muscle Testing Left Flexion (S2) 5 Normal Extension (L3) 4+ Good+ Right Flexion (S2) 5 Normal Extension (L3) 4+ Good+ PT-OP-Q Treatments Start: 12/04/20 08:06 Freq: Status: Active Protocol: Document 01/14/21 14:35 [facility] (Rec: 01/14/21 15:18 [facility] [id number]) Cardio Equipment Recumbent Stepper (Sci-Fit) Duration (Minutes) 13 Resistance 2 Seat Position 10 Other verbal and manual cues for LE alignment, core activation Therapeutic Exercises Supine Exercises ER Supine Exercise Name hip IR/ER in neutral, abd & add positions Side bilateral Reps/Minutes 5 ea position Manual Therapy Treatment Soft Tissue Mobilization iliopsoas Body Location right Mobilization Type Sustained Pressure Intensity/Depth Moderate Body Position Hooklying Comments w/hip iR/ER PT-OP-R Modalities Start: 12/04/20 08:06 Freq: Status: Active Protocol: Document 01/14/21 14:35 [facility] (Rec: 01/14/21 15:18 [facility] [id number]) Hot Pack/Cold Pack Treatment Hot Pack Location right lateral hip, gloria buttocks, and LB Patient Position Sidelying Treatment Duration (minutes) 15 Patient Tolerance Good Ultrasound Therapy Treatment Greater trochanter right Treatment Duration (minutes) 8 Patient Position Sidelying Frequency Setting (mHz) 1 Mode Setting Pulsed Duty Cycle 50% Intensity Setting (w/cm2) 1.4 PT-OP-T Assessment and Plan Start: 12/04/20 08:06 Freq: Status: Active Protocol: Document 01/07/21 13:52 [facility] (Rec: 01/07/21 15:35 [facility] [id number]) Physical Therapy Assessment Goals Three Impairment weakness in core and hips Short Term Goal (STG) Upgrade and modify patient's HEP as indicated STG Duration 01/03/21 Residential Goal (LTG) Patient to be independent with HEP and demonstrate improved strength to at least 4+/5 throughout to allow her to return to her usual activities 01/07-signficantly improved LTG Duration 02/06/21 Two Impairment pain as high as 9/10 at night Manager Of Marketing Goal (LTG) Decrease pain to no greater than 3/10 with all usual activities, especially at night when trying to sleep and move in bed 01/07-4/10 at its greatest LTG Duration 02/06/21 One Impairment activity tolerance Impairment Unable to sit for more than one hour due to hip pain, and has difficulty sleeping and moving in bed due to pain in low back and buttock(wakes every 2 hours) Manager Of Marketing Goal (LTG) Patient will be able to sit for up to 2 hours with minimal to no pain right hip, and be able to improve sleep to at least 4 hours at a time LTG Duration achieved 01/07-wakes up around 3-4 am (6 hrs in) Assessment Summary Assessment Pt has made excellent progress functionally with her strength, pain level, ability to sleep and ability to sit signficantly improved. SHe cont to have pain and be limited with mobility w/occ sharp pain in SI or sacral area. She was encouraged to do the hip rotation exercise before trying to get out of bed in order to dec pain w/leg moving across for roll out of bed. Physical Therapy Plan Frequency and Duration Frequency of Treatment 2x/Week Duration of Treatment 8 wks Plan of Care Start Date 12/04/20 Plan of Care End Date 02/06/21 Next Visit Focus/Plan Next Note Type Treatment Note Next Visit Plan Continue land-based PT with emphasis on manual techniques, core stab and strengthening including with functiona task of bed mobility.
--- NOTE | 2021-01-21 10:04 | PT-OP ANOTE ---
Cancelled via voicemail, STANLEY.
== END 2021-04-08 09:36 ==
LOC: PHYS 09:45
PROVIDERS: PCP Physician Assistant; Referring Provider Physician Assistant; Visit Provider Physician Assistant
DX: M51.36 Other intervertebral disc degeneration, lumbar region (principal)
CPT/HCPCS: 97035; 97110; 97112; 97113; 97140; 97162; 97535

== ENCOUNTER → 2021-02-03 12:40 | Outpatient (CLI) | payer MEDICARE, OTHER, SELFPAY ==
[2021-02-03 13:29] LABS: Add Manual Diff / Slide Review NO; Basophils Absolute Auto 0 /uL (0-100); Basophils Percent Auto 0.4 % (0-2); Eosinophils Absolute Auto 100 /uL (0-450); Eosinophils Percent Auto 1.2 % (2-4); Hematocrit 37.9 % (36-46); Hemoglobin 12.5 g/dL (12.0-16.0); Lymphocytes Absolute Auto 600 /uL (1100-4500); Lymphocytes Percent Auto 11.5 % (25-40); Mean Corpuscular Hemoglobin 30.5 PG (26-34); Mean Corpuscular Volume 92.3 fL (80-100); Monocytes Absolute Auto 400 /uL (0-900); Monocytes Percent Auto 8.7 % (3-14); Neutrophils Absolute Auto 3800 /uL (1500-7000); Neutrophils Percent Auto 78.2 % (50-75); Platelet Count 163 X10^3/uL (150-400); Red Blood Cell Count 4.11 X10^6/uL (4.0-5.2); Red Cell Distribution Width 15.4 % (11.6-14.8); White Blood Cell Count 4.8 X10^3/uL (4.5-11.0)
[2021-02-03 14:05] LABS: Alanine Aminotransferase 33 IU/L (<35); Albumin 4.2 g/dL (3.5-5.0); Albumin Globulin Ratio 1.8 (1.0-2.8); Alkaline Phosphatase 47 U/L (38-126); Aspartate Aminotransferase 32 IU/L (14-36); BUN Creatinine Ratio 25.3 (6-22); Bilirubin Total 0.8 mg/dL (0.2-1.3); Blood Urea Nitrogen 22 mg/dL (7-17); C-Reactive Protein Quant < 0.5 mg/dL (<1.0); Calcium 9.4 mg/dL (8.4-10.2); Carbon Dioxide 30 mmol/L (22-32); Chloride 101 mmol/L (98-107); Estimated Glomerular Filt Rate > 60.0 mL/min (>60); Globulin 2.4 g/dL (1.7-4.1); Glucose 92 mg/dL (80-110); HEMOLYSIS < 15 (0-50); Potassium 3.8 mmol/L (3.4-5.1); Sodium 137 mmol/L (137-145); Total Protein 6.6 g/dL (6.3-8.2)
[2021-02-03 14:16] LABS: Erythrocyte Sedimentation Rate 5 MM/HR (0-20)
[2021-02-03 17:09] LABS: Hepatitis B Surface Antigen NEGATIVE s/c (NEGATIVE)
[2021-02-03 17:20] LABS: HIV 1 & 2 Ab/Ag 4th Gen Combo NEGATIVE (NEGATIVE); Hep C Virus Ab w/Reflex Quant NEGATIVE s/c (NEGATIVE)
[2021-02-04 03:25] LABS: Hepatitis B Surf AB Quant <3.1 mIU/mL (Immunity>9.9)
[2021-02-04 09:04] LABS: Hepatitis B Core Antibody Negative (Negative); Hepatitis B Core IgM Negative (Negative)
[2021-02-05 10:07] LABS: QuantiFERON Mitogen Value >10.00 IU/mL (.); QuantiFERON Nil Value 0.05 IU/mL (.); QuantiFERON TB Gold Plus Negative (Negative); QuantiFERON TB1 Ag Value 0.04 IU/mL (.); QuantiFERON TB2 Ag Value 0.04 IU/mL (.)
== END ==
PROVIDERS: PCP Physician Assistant; Referring Provider Internal Medicine Rheumatology; Visit Provider Internal Medicine Rheumatology
DX: D84.9 Immunodeficiency, unspecified (principal); D64.9 Anemia, unspecified; M06.00 Rheumatoid arthritis without rheumatoid factor, unspecified site
CPT/HCPCS: 36415; 80053; 85025; 85651; 86140; 86480; 86704; 86705; 86706; 86803; 87340; 87389

== ENCOUNTER 2021-03-11 11:38 | Emergency (ER) | payer MEDICARE, SELFPAY ==
[2021-03-11 12:30] VITALS: PULSE 65; RESP 24; TEMP 36.4; O2SAT 96; BMI 34.0
--- NOTE | 2021-03-11 12:38 | DI.RAD.S_ITS ---
PROCEDURE: XR CHEST 2V INDICATIONS: cough, URI symptoms, h/o asthma TECHNIQUE: 2 views of the chest were acquired. COMPARISON: [facility], , CHEST 2 VIEW, 04/12/2016, 19:56. FINDINGS: Surgical changes and devices: In is status post left shoulder arthroplasty. Lungs and pleura: Lungs are clear. No pleural effusions or pneumothorax. Mediastinum: Mediastinal contours are normal. Heart size is normal. Bones and chest wall: No suspicious bony abnormalities. Soft tissues appear unremarkable. IMPRESSION: No acute cardiopulmonary pathology. Dictated by: Steven Johnson M.D. on 03/11/2021 at 13:17 Approved by: Steven Johnson M.D. on 03/11/2021 at 13:18
[2021-03-11 13:58] LABS: Adenovirus Not Detected (Not Detect); B. parapertussis Not Detected (Not Detecte); Bordetella pertussis Not Detected (Not Detecte); Chlamydophila pneumoniae Not Detected (Not Detect); Coronavirus 229E Not Detected (Not Detect); Coronavirus HKU1 Not Detected (Not Detect); Coronavirus NL 63 Not Detected (Not Detect); Coronavirus OC43 Not Detected (Not Detect); Human Metapneumovirus Not Detected (Not Detect); Human Rhinovirus/Enterovirus Not Detected (Not Detect); Influenza A Not Detected (Not Detect); Influenza B Not Detected (Not Detect); Mycoplasma pneumoniae Not Detected (Not Detect); Parainfluenza Virus 1 Not Detected (Not Detect); Parainfluenza Virus 2 Not Detected (Not Detect); Parainfluenza Virus 3 Not Detected (Not Detect); Parainfluenza Virus 4 Not Detected (Not Detect); Respiratory Syncytial Virus Not Detected (Not Detect); SARS- CoV-2 Not Detected (Not Detecte)
== END 2021-03-11 15:30 | disposition left against medical advice (07) ==
PROVIDERS: Emergency Provider Emergency Medicine; PCP Physician Assistant
DX: R06.02 Shortness of breath (principal)
CPT/HCPCS: 71046; 87633; 99283

== ENCOUNTER → 2021-04-28 13:36 | Outpatient (CLI) | payer MEDICARE, SELFPAY ==
--- NOTE | 2021-04-28 | DI.CT.S_ITS ---
PROCEDURE: CT THORACIC SPINE WO CON INDICATIONS: STERNUM PAIN TECHNIQUE: Noncontrast 3 mm thick sections acquired through the region of interest in the thoracic spine. Sagittal and coronal reformats were then constructed. For radiation dose reduction, the following was used: automated exposure control. COMPARISON: None. FINDINGS: Image quality: Excellent. Bones: There is normal overall bony alignment. No acute vertebral body compression fractures. No suspicious sclerotic or lytic bony lesions. Central spinal canal is of normal overall caliber. Convex anterior osteophytes right thoracic scoliosis noted without vertebral anomaly. Disc space narrowing and small anterior osteophytes noted throughout the exam. At C7-T1, there is an intra canalicular left dorsal lateral are rounded fluid collection with a capsular calcification measuring overall 8 mm. Soft tissues: No paravertebral masses or hematomas. Visualized posteromedial lungs appear clear. IMPRESSION: 1. Probable synovial cyst resulting in [id number] canal stenosis at C7-T1 can be further evaluated with MRI cervical spine with and without contrast 2. Thoracic dextroscoliosis and multilevel degenerative changes Approved by: Matt Torres M.D. on 04/28/2021 at 16:27
== END ==
PROVIDERS: PCP Physician Assistant; Referring Provider Physical Medicine & Rehabilitation Pain Medicine; Visit Provider Physical Medicine & Rehabilitation Pain Medicine
DX: Z01.818 Encounter for other preprocedural examination (principal); R07.89 Other chest pain; M41.84 Other forms of scoliosis, thoracic region; M48.03 Spinal stenosis, cervicothoracic region; G47.33 Obstructive sleep apnea (adult) (pediatric); G47.00 Insomnia, unspecified
CPT/HCPCS: 72128; 93005; 99213

== ENCOUNTER → 2021-06-20 14:42 | Outpatient (CLI) | payer MEDICARE, SELFPAY ==
--- NOTE | 2021-06-20 14:43 | DI.CT.S_ITS ---
PROCEDURE: CT CHEST WO CON INDICATIONS: STERNUM PAIN TECHNIQUE: Noncontrast 5 mm thick sections acquired from the pulmonary apices to the posterior costophrenic angles. 1 mm lung window, 5 mm thick coronal and sagittal and 7 mm axial MIP reformats were then acquired. For radiation dose reduction, the following was used: automated exposure control, adjustment of mA and/or kV according to patient size. COMPARISON: [facility], CT, CT THORACIC SPINE WO CON, 04/28/2021, 13:43. FINDINGS: Image quality: Excellent. Lungs and pleura: No acute air space opacities. Small areas linear atelectasis or scarring are seen in the posterior right lung. No pleural effusions or pneumothorax. Central and peripheral airways are patent and normal in caliber. Mediastinum: Heart size is normal. No pericardial effusion. No mediastinal adenopathy by size criteria. Thoracic aorta and central pulmonary arteries are normal in size. Esophagus is normal in caliber. No hiatal hernia. Bones and chest wall: No axillary or supraclavicular adenopathy by size criteria. Thyroid is unremarkable. There is fatty infiltration of the rotator cuff musculature bilaterally. A left shoulder arthroplasty is present with expected metallic streak artifact. Mild dextroconvex curvature of the thoracic spine is seen. No suspicious bony lesions. No vertebral body compression fractures. Degenerative changes are seen at the sternomanubrial articulation including vacuum phenomenon, subchondral sclerosis, and subchondral cystic changes. Mild degenerative changes are seen at the sternoclavicular joints bilaterally. Abdomen: A simple appearing cyst is seen in the left hepatic lobe. Status post cholecystectomy. Visualized upper abdominal solid organs and bowel loops appear normal in the absence of contrast. IMPRESSION: Moderate to severe degenerative changes at the sternomanubrial articulation with vacuum phenomenon, subchondral sclerosis, and marginal osteophyte formation. Recommend correlation with the site of sternal pain. Mild bilateral sternoclavicular osteoarthrosis. Dictated by: Sourav Herron M.D. on 06/20/2021 at 19:55 Approved by: Sourav Herron M.D. on 06/20/2021 at 20:10
== END ==
PROVIDERS: Family Provider Physician Assistant; PCP Physician Assistant; Referring Provider Physical Medicine & Rehabilitation Pain Medicine; Visit Provider Physical Medicine & Rehabilitation Pain Medicine
DX: R07.89 Other chest pain (principal); M19.09 Primary osteoarthritis, other specified site
CPT/HCPCS: 71250

== ENCOUNTER → 2021-07-14 09:25 | Outpatient (CLI) | payer MEDICARE, SELFPAY ==
[2021-07-14 12:22] LABS: COVID-19 CEPHEID PCR (VTM/NP) Negative (Negative)
== END ==
PROVIDERS: Family Provider Physician Assistant; PCP Physician Assistant; Visit Provider Family Medicine Sleep Medicine
DX: Z20.822 Contact with and (suspected) exposure to COVID-19 (principal)
CPT/HCPCS: C9803; U0003; U0005

== ENCOUNTER → 2021-08-15 11:53 | Outpatient (CLI) | payer MEDICARE, SELFPAY ==
--- NOTE | 2021-08-15 | DI.MRI.S_ITS ---
PROCEDURE: MR HAND RT WO CON INDICATIONS: Rheumatoid arthritis without rheumatoid factor TECHNIQUE: Axial T1 spin echo and T2 fast spin echo with fat saturation; coronal T1 spin echo and T2 fast spin echo with and without fat saturation; coronal T1 spin echo and STIR. COMPARISON: None. FINDINGS: Image quality: Excellent. Bones: No acute trabecular bone injury. Joint space narrowing is seen at the 1st metacarpophalangeal joint with marginal osteophyte formation. Osseous irregularity is noted at the 3rd proximal phalangeal head that is likely related to degenerative changes without a definite erosion. There is a moderate joint effusion of the 3rd PIP joint. No additional joint effusions are seen. No osseous edema or osteitis. No definite osseous erosion is seen. Soft tissues: Fluid is seen surrounding the tendons within the 4th extensor compartment, consistent with tenosynovitis. Mild tenosynovitis of the 2nd through 4th flexor tendons is seen at the level of the metacarpal shafts. Focal tenosynovitis of the 5th flexor tendons at the level of the 5th proximal phalanx. Lobular ganglion cysts are seen along the volar aspect of the radiocarpal joint and volar to the 1st carpometacarpal joint. A small ganglion cyst is seen volar to the 4th carpometacarpal joint. The musculature of the hand is normal in bulk. Mild edema is seen within the opponens pollicis muscle, which may be related to a low-grade muscle strain. IMPRESSION: 1. Arthritic changes are seen at the 3rd proximal interphalangeal joint with a moderate joint effusion. No osteitis or acute osseous erosion is seen in the wrist or hand. 2. Multifocal tenosynovitis, most prominent at the dorsal surface of the hand involving the 4th extensor compartment tendons. Mild tenosynovitis of the flexor digitorum tendons is also seen. 3. Multiple lobular ganglion cysts at the level of the carpal bones and carpometacarpal joints. 4. Mildly increased T2 signal in the opponens pollicis muscle may be related to a low-grade strain. Dictated by: Sourav Herron M.D. on 08/15/2021 at 13:19 Approved by: Sourav Herron M.D. on 08/15/2021 at 13:37
== END ==
PROVIDERS: Family Provider Physician Assistant; PCP Physician Assistant; Referring Provider Internal Medicine Rheumatology; Visit Provider Internal Medicine Rheumatology
DX: M06.09 Rheumatoid arthritis without rheumatoid factor, multiple sites (principal); M65.841 Other synovitis and tenosynovitis, right hand; M67.441 Ganglion, right hand
CPT/HCPCS: 73218

== ENCOUNTER → 2021-09-17 13:55 | Outpatient (CLI) | payer MEDICARE, SELFPAY ==
--- NOTE | 2021-09-17 14:01 | DIET.OUTPTC ---
Dietary Outpatient Consultation Note Consultation Date: 09/17/[address] 70[address] f/u for help with diet to support obesity and rhumatoid arthritis. Pt on 5mg prednisone daily, Selina not helping. Imaging and CT showing significant arthritis throughout body. Pt in significant pain. 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 Pt is consuming 1-3 glasses red wine nightly and knows this is probably not great for her joint pain. Pt hoping to glean more information about healthy eating to reduce inflammation and slow weight gain if not reverse it. Interventions: 1. Recc pt eliminate etoh from diet until RA pain is under better control or even eliminate entirely. Spent considerable time in supportive counseling regarding etoh. Pt open to moving wine out of the kitchen so it is out of view. Pt open to subbing her 4pm wine for ONS [employer] to support her skin healing as she has prednisone skin thinning with bruises and lacerations. Pt open to discussing not having wine c dinner c supportive . 2. Introduced pt to autoimmune protocol diet. Pt has tried diabetic diet, mediterranean diet, enjoys, but wants to try something more. Provided handouts and resources for following this high protein, high fiber, grain, dairy, and egg free diet for 2-4 weeks to assess for sx management. Pt takes MVI daily. Pt will check in each week to see if helpful. f/u prn Electronically Signed by: Carmel Callahan 09/17/21 14:01 Clinical Dietitian [address] [id number]
== END ==
PROVIDERS: Family Provider Physician Assistant; PCP Physician Assistant; Referring Provider Physician Assistant; Visit Provider Physician Assistant
DX: E66.9 Obesity, unspecified (principal); M06.9 Rheumatoid arthritis, unspecified; Z71.3 Dietary counseling and surveillance
CPT/HCPCS: 97803

== ENCOUNTER 2021-10-02 13:45 | Outpatient (RCR) | payer MEDICARE, SELFPAY ==
--- NOTE | 2021-05-15 16:38 | PT.OIE ---
Current Diagnoses Sacroiliitis, not elsewhere classified (05/15/21) Other abnormalities of gait and mobility (05/15/21) Abnormal posture (05/15/21) Weakness (05/15/21) Other reduced mobility (05/15/21) Past Medical History (Last Reviewed 04/28/21 @ 10:33 by Samuel Goodson MD) Asthmatic bronchitis Depression GERD (gastroesophageal reflux disease) H/O eye surgery (02/05/1958) H/O total hysterectomy (05/06/00) History of cholecystectomy (02/05/98) History of knee surgery (05/05/10) 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) Hx of spinal fusion (10/09/18) Hx of tonsillectomy (07/27/1967) Past Surgical History (Last Reviewed 04/28/21 @ 10:33 by Samuel Goodson MD) H/O eye surgery (02/05/1958) H/O total hysterectomy (05/06/00) History of cholecystectomy (02/05/98) History of knee surgery (05/05/10) 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) Hx of spinal fusion (10/09/18) Hx of tonsillectomy (07/27/1967) Visit Care Team Role Provider Type Ellie Fountain PA-C Attending Provider Non-Staff Family Provider Primary Care Provider Referring Provider Specialty: Internal Medicine Address: [address] [place] [address] Email: [email or web address] Physical [facility] Initial Evaluation PT-OP-A Visit Information Start: 05/15/21 07:31 Freq: Status: Active Protocol: Document 05/15/21 10:38 [facility] (Rec: 05/15/21 12:15 [facility] [id number]) Out-Patient Physical Therapy Visit Information Visit Information Visit Type Initial Evaluation Visit Note 03/17 Visit Start Time 11:15 Visit Stop Time 12:00 Total Visit Minutes 45 Visit Number 1 Number of COLORED LEATHER SETTER Visits 0 PT-OP-B Current Condition Start: 05/15/21 07:31 Freq: Status: Active Protocol: Document 05/15/21 10:38 [facility] (Rec: 05/15/21 12:15 [facility] [id number]) Current Condition History of Current Condition Onset Date about 1 month ago Current Complaints SIJ pain and R hip pain & imbalance History of Current Condition Pt has history of chronic LBP and B foot pain w/history of falls and imbalance with multiple bouts of PT that have been successful at reducing pain in the past. Pt reports being sick the entire month of Mar w/brochitis. She started in Jan having costrocontritis. She was feeling better w/SI pain after PT last Jan. She had a hip injection in R hip in Feb. She had chest CT, EKG and it was negative. MD would not inject her d/t pt not getting CT of sternum as MD kept changing what was needed for injection. Pt hasn't seen account specialist for 6 months. She had the wrong day and yesterday got 3/[address] to [place] and realized it was wrong appt time. She is unsure when she will see her. She took her first dose of forest since she was off them while sick. She was taking methotrexate all along. She is still having sinus issues since being sick and is seeing allergy MD in [place] at end of month. She is not stable at all she feels and had difficulty w/on/off curbs. Pt reports R foot is so painful unless she has her shoes on. This just starteda bout a week ago so she needs to schedule to go backt o foot MD. reports she feels really unstable at night. Pt reports she is having hip issues again . Pt reports SIJ pain started about 3 weeks ago. It came on suddnely w/o any underlying causes. Denies any recent falls. Pt reports pain is not killing her but it very irritating and yesterday coccyx was killing me. She started Medaterrain diet she started and is noticing she is gaining weight and it didn't help w/pain. Has to sleep on heating pad at night. Once she gets up and is moving, it is better. Pt reports she no longer gardens. She feels like she will fall fwd if leaning fwd too much to garden and did fall last summer. Prior Treatments and Tests Mult bouts PT in past w/ improved pain Thoracic MRI 04/28: IMPRESSION: 1. Probable synovial cyst resulting in [id number]-[id number] canal stenosis at C7-T1 can be further evaluated with MRI cervical spine with and without contrast 2. Thoracic dextroscoliosis and multilevel degenerative changes Lumbar CT 09/10/20: MPRESSION: Multilevel degenerative disc disease and arthropathy results in varying degrees of central and foraminal stenosis, including severe central stenosis at L3- 4. L4-5 and L5-S1 discectomy and fusion with posterior kimi and screw instrumentation in position. No hardware failure or loosening. Decompressive L4 and L5 laminectomies Treatment Goals Patient/Caregiver Goals be able to get up/down from a curb, feel more stable walking , improve pain and improve ability to sleep & sit down Personal Factors Other Personal Factors That May Effect MH: rheumatoid arthritis, GERD Therapy/Recovery , PE, depression, bilateral ankle fusion, left shoulder replacement 2018, right TKA , spinal fusion 10/24, Charcot foot gloria PT-OP-C Subjective Start: 05/15/21 07:31 Freq: Status: Active Protocol: Document 05/15/21 10:38 [facility] (Rec: 05/15/21 12:15 [facility] [id number]) Patient Questionnaires ABC- Activity Specific Balance Confidence Scale ABC Score 42.5 ABC Functional Impairment 40 to <60% Impaired (Score 41- 60) OP-PT Pain Assessment Location back pain Pain Location Details B SI into R buttocks & into R groin Scale Used worst 5/10;2-3/10 during day Description- Other diffuse Frequency Constant Variations/Patterns coccyx pain Pain Aggravating Factors Sitting Other Pain Aggravating Factors at night laying down, sit to stand, bend over Pain Alleviating Factors Heat Other Pain Alleviating Factors moving PT-OP-D Balance Start: 05/15/21 07:31 Freq: Status: Active Protocol: Document 05/15/21 10:38 [facility] (Rec: 05/15/21 12:15 [facility] [id number]) Balance Tests Ordoñez Balance Test Ordoñez Balance Test Score 35 Ordoñez Impairment Rating 20 to 39% Impaired (Score 34- 44) PT-OP-F Manual Assessment Start: 05/15/21 07:31 Freq: Status: Active Protocol: Document 05/15/21 10:38 [facility] (Rec: 05/15/21 12:15 [facility] [id number]) Manual Assessments Soft Tissue Assessment Soft Tissue Mobility Assessment B glute, R>L QL, ES B, R iliacus tenderness PT-OP-G Mobility & Gait Start: 05/15/21 07:31 Freq: Status: Active Protocol: Document 05/15/21 10:38 [facility] (Rec: 05/15/21 12:15 [facility] [id number]) OP Mobility Evaluation Bed Mobility Rolling able to roll w/pain Supine to and from Sit pain OP Gait Assessment Comments Gait Comments Very stiff and appears unsteady, lat shift w/WB, dec push off, dec stride length B PT-OP-J Posture/Palpation/Skin Start: 05/15/21 07:31 Freq: Status: Active Protocol: Document 05/15/21 10:38 [facility] (Rec: 05/15/21 12:15 [facility] [id number]) Posture Evaluation Comments Posture Comments fwd flex w/inch kyphosis PT-OP-L Special Tests Start: 05/15/21 07:31 Freq: Status: Active Protocol: Document 05/15/21 10:38 [facility] (Rec: 05/15/21 12:15 [facility] [id number]) Special Tests Lumbar Spine Special Tests Slump Test Results neg B Straight Leg Raise Test Results neg b PT-OP-M Strength Start: 05/15/21 07:31 Freq: Status: Active Protocol: Document 05/15/21 10:38 [facility] (Rec: 05/15/21 12:15 [facility] [id number]) Hip Strength Hip Manual Muscle Testing Left Flexion (L2) 3+ Fair+ Abduction 3 Fair External Rotation 3+ Fair+ Internal Rotation 3+ Fair+ Right Flexion (L2) 3+ Fair+ Abduction 3 Fair External Rotation 3+ Fair+ Internal Rotation 3+ Fair+ Knee Strength Knee Manual Muscle Testing Right Flexion (S2) 4- Good- Extension (L3) 4- Good- Comments pain in SI w/ext Left Flexion (S2) 4- Good- Extension (L3) 4+ Good+ Ankle/Foot Strength Ankle and Foot Manual Muscle Testing Right Dorsiflexion (L4) 3+ Fair+ Plantarflexion (S1) 3+ Fair+ Left Dorsiflexion (L4) 3+ Fair+ Plantarflexion (S1) 3+ Fair+ Comments painPF PT-OP-T Assessment and Plan Start: 05/15/21 07:31 Freq: Status: Active Protocol: Document 05/15/21 10:38 [facility] (Rec: 05/15/21 12:15 [facility] [id number]) Physical Therapy Assessment Rehab Potential Rehabilitation Potential Good Evaluation Complexity Number of Personal Factors/Comorbidities 3 or More Number of Body Systems Impaired 4 or More Clinical Presentation at Evaluation Evolving Impairments Impairments Activity Tolerance,Balance, Functional Activities, Functional Mobility,Gait,Pain, Posture,ROM,Soft Tissue Mobility,Strength Goals stability Short Term Goal (STG) Pt will be able to safely ascend and descend a curb in order to be safe when in the community. STG Duration 07/06/21 Fiber Locking Supervisor Goal (LTG) Pt will feel comfortable navigating community with her . LTG Duration 08/15/21 pain Alf Goal (LTG) Pt will report SIJ, coccyx and R hip pain no greater than 2/ 10 on any given day for at least 2 week.s LTG Duration 08/15/21 strength Short Term Goal (STG) pt will be indep w/HEP for core stability, hip stability, and balance. STG Duration 06/25/21 Alf Goal (LTG) Pt will score at least 4/5 on all LE MMT to show improved strenght to improve pt mobility. LTG Duration 08/15/21 balance Impairment 35/56 Short Term Goal (STG) Pt will improve ORDOÑEZ balance score to at least 45 to show dec fall risk indoor STG Duration 06/30/21 Fiber Locking Supervisor Goal (LTG) Pt will improve ORDOÑEZ balance score to at least 50 to show dec fall risk in outdoors/ community. LTG Duration 08/15/21 One Short Term Goal (STG) Pt will be able to do sit to stand from any surfaces w/o inc R hip or back pain. STG Duration 07/05/21 Fiber Locking Supervisor Goal (LTG) pt will be able to sleep and lay down w/o LB/SIJ pain or R hip pain. LTG Duration 08/15/21 Assessment Summary Assessment Pt presents w/reoccurance of B SI pain, coccyx pain, and R hip (wrapping post to ant) that is limiting her ability to sleep and ability to stand or sit for inc time. She also has notable dec in balance likely coorelated to this pain and shows high risk for falls based on ORDOÑEZ. Her rehab course will be complicated d/t pt having RA, OA at multiple joints, B Charot foot w/ significant foot immobility and pain, depression, neuropathy and history of falls along w/recent costocondritis that limits her mobility/comfortable positions. She would benefit from PT to work on pain, gait, balance, core and LE strength along w/mobility of spine, pelvis and hips to improve pt' s ability to do activities at home and in the community w/ less pain and fear for fall/ risk for falling. Physical Therapy Plan Frequency and Duration Frequency of Treatment 1-2x/week Duration of Treatment 3 months Plan of Care Start Date 05/15/21 Plan of Care End Date 08/15/21 Therapeutic Interventions Therapeutic Interventions Aquatic Therapy,Balance Training,Gait Training,Home Exercise Program,Joint Mobilizations,Manual Therapy, Neuromuscular Re-education, Orthotic/Prosthetic Management ,Patient/Caregiver Education, Self-Care/Home Management,Soft Tissue Mobilization,Taping, Therapeutic Activities, Therapeutic Exercises Modalities Cold Pack/Ice Massage,Electric Stimulation,Hot Packs, Infrared Therapy,Ultrasound Next Visit Focus/Plan Next Note Type Treatment Note Next Visit Plan review exercies pt is doing, start gentle balance & core stability, manual to ITB, hip flexor R & B glutes
--- NOTE | 2021-05-15 16:38 | PT.OPPOC ---
Physical, Occupational & Speech Therapy At [facility] Current Diagnoses Sacroiliitis, not elsewhere classified (05/15/21) Other abnormalities of gait and mobility (05/15/21) Abnormal posture (05/15/21) Weakness (05/15/21) Other reduced mobility (05/15/21) Visit Care Team Role Provider Type Ellie Fountain PA-C Attending Provider Non-Staff Family Provider Primary Care Provider Referring Provider Specialty: Internal Medicine Address: [address] [place] [address], [facility] Email: [email or web address] Plan Of Care PT-OP-T Assessment and Plan Start: 05/15/21 07:31 Freq: Status: Active Protocol: Document 05/15/21 10:38 [facility] (Rec: 05/15/21 12:15 [facility] [id number]) Physical Therapy Assessment Rehab Potential Rehabilitation Potential Good Evaluation Complexity Number of Personal Factors/Comorbidities 3 or More Number of Body Systems Impaired 4 or More Clinical Presentation at Evaluation Evolving Impairments Impairments Activity Tolerance,Balance, Functional Activities, Functional Mobility,Gait,Pain, Posture,ROM,Soft Tissue Mobility,Strength Goals stability Short Term Goal (STG) Pt will be able to safely ascend and descend a curb in order to be safe when in the community. STG Duration 07/06/21 Neon Molder Goal (LTG) Pt will feel comfortable navigating community with her . LTG Duration 08/15/21 pain Half-Way Goal (LTG) Pt will report SIJ, coccyx and R hip pain no greater than 2/ 10 on any given day for at least 2 week.s LTG Duration 08/15/21 strength Short Term Goal (STG) pt will be indep w/HEP for core stability, hip stability, and balance. STG Duration 06/25/21 Neon Molder Goal (LTG) Pt will score at least 4/5 on all LE MMT to show improved strenght to improve pt mobility. LTG Duration 08/15/21 balance Impairment 35/56 Short Term Goal (STG) Pt will improve ORDOÑEZ balance score to at least 45 to show dec fall risk indoor STG Duration 06/30/21 Half-Way Goal (LTG) Pt will improve ORDOÑEZ balance score to at least 50 to show dec fall risk in outdoors/ community. LTG Duration 08/15/21 One Short Term Goal (STG) Pt will be able to do sit to stand from any surfaces w/o inc R hip or back pain. STG Duration 07/05/21 Half-Way Goal (LTG) pt will be able to sleep and lay down w/o LB/SIJ pain or R hip pain. LTG Duration 08/15/21 Assessment Summary Assessment Pt presents w/reoccurance of B SI pain, coccyx pain, and R hip (wrapping post to ant) that is limiting her ability to sleep and ability to stand or sit for inc time. She also has notable dec in balance likely coorelated to this pain and shows high risk for falls based on ORDOÑEZ. Her rehab course will be complicated d/t pt having RA, OA at multiple joints, B Charot foot w/ significant foot immobility and pain, depression, neuropathy and history of falls along w/recent costocondritis that limits her mobility/comfortable positions. She would benefit from PT to work on pain, gait, balance, core and LE strength along w/mobility of spine, pelvis and hips to improve pt' s ability to do activities at home and in the community w/ less pain and fear for fall/ risk for falling. Physical Therapy Plan Frequency and Duration Frequency of Treatment 1-2x/week Duration of Treatment 3 months Plan of Care Start Date 05/15/21 Plan of Care End Date 08/15/21 Therapeutic Interventions Therapeutic Interventions Aquatic Therapy,Balance Training,Gait Training,Home Exercise Program,Joint Mobilizations,Manual Therapy, Neuromuscular Re-education, Orthotic/Prosthetic Management ,Patient/Caregiver Education, Self-Care/Home Management,Soft Tissue Mobilization,Taping, Therapeutic Activities, Therapeutic Exercises Modalities Cold Pack/Ice Massage,Electric Stimulation,Hot Packs, Infrared Therapy,Ultrasound Next Visit Focus/Plan Next Note Type Treatment Note Next Visit Plan review exercies pt is doing, start gentle balance & core stability, manual to ITB, hip flexor R & B glutes Plan of Care Dates Plan of Care Start Date 05/15/21 Plan of Care End Date 08/15/21 Electronically Signed by: Debbie Beyer, PT 05/15/21 [id number] Please Sign and Return: I have reviewed this Plan of Care and certify that the skilled therapy services above are required to meet the patient?s needs. Physician Signature Date Printed Name and Credentials Clinical Instructor Signature Printed Name and Credentials
--- NOTE | 2021-05-21 09:47 | PT.OTN ---
Current Diagnoses Sacroiliitis, not elsewhere classified (05/21/21) Other abnormalities of gait and mobility (05/21/21) Abnormal posture (05/21/21) Weakness (05/21/21) Other reduced mobility (05/21/21) Physical Therapy Treatment Note PT-OP-A Visit Information Start: 05/15/21 07:31 Freq: Status: Active Protocol: Document 05/21/21 08:37 [facility] (Rec: 05/21/21 09:47 [facility] [id number]) Out-Patient Physical Therapy Visit Information Visit Information Visit Type Treatment Note Visit Note 04/17 Visit Start Time 08:20 Visit Stop Time 09:10 Total Visit Minutes 50 Visit Number 2 Number of DINING ROOM SERVER Visits 0 PT-OP-B Current Condition Start: 05/15/21 07:31 Freq: Status: Active Protocol: Document 05/15/21 10:38 [facility] (Rec: 05/15/21 12:15 [facility] [id number]) Current Condition History of Current Condition Onset Date about 1 month ago Current Complaints SIJ pain and R hip pain & imbalance History of Current Condition Pt has history of chronic LBP and B foot pain w/history of falls and imbalance with multiple bouts of PT that have been successful at reducing pain in the past. Pt reports being sick the entire month of Mar w/juliane. She started in Jan having costrocontritis. She was feeling better w/SI pain after PT last Jan. She had a hip injection in R hip in Feb. She had chest CT, EKG and it was negative. MD would not inject her d/t pt not getting CT of sternum as MD kept changing what was needed for injection. Pt hasn't seen fitter/welder for 6 months. She had the wrong day and yesterday got 3/[address] to [place] and realized it was wrong appt time. She is unsure when she will see her. She took her first dose of forest since she was off them while sick. She was taking methotrexate all along. She is still having sinus issues since being sick and is seeing allergy MD in [place] at end of month. She is not stable at all she feels and had difficulty w/on/off curbs. Pt reports R foot is so painful unless she has her shoes on. This just starteda bout a week ago so she needs to schedule to go backt o foot MD. reports she feels really unstable at night. Pt reports she is having hip issues again . Pt reports SIJ pain started about 3 weeks ago. It came on suddnely w/o any underlying causes. Denies any recent falls. Pt reports pain is not killing her but it very irritating and yesterday coccyx was killing me. She started Medaterrain diet she started and is noticing she is gaining weight and it didn't help w/pain. Has to sleep on heating pad at night. Once she gets up and is moving, it is better. Pt reports she no longer gardens. She feels like she will fall fwd if leaning fwd too much to garden and did fall last summer. Prior Treatments and Tests Mult bouts PT in past w/ improved pain Thoracic MRI 04/28: IMPRESSION: 1. Probable synovial cyst resulting in scxm-[id number]-blvuhbdr canal stenosis at C7-T1 can be further evaluated with MRI cervical spine with and without contrast 2. Thoracic dextroscoliosis and multilevel degenerative changes Lumbar CT 09/10/20: MPRESSION: Multilevel degenerative disc disease and arthropathy results in varying degrees of central and foraminal stenosis, including severe central stenosis at L3- 4. L4-5 and L5-S1 discectomy and fusion with posterior kimi and screw instrumentation in position. No hardware failure or loosening. Decompressive L4 and L5 laminectomies Treatment Goals Patient/Caregiver Goals be able to get up/down from a curb, feel more stable walking , improve pain and improve ability to sleep & sit down Personal Factors Other Personal Factors That May Effect MH: rheumatoid arthritis, GERD Therapy/Recovery , PE, depression, bilateral ankle fusion, left shoulder replacement 2018, right TKA , spinal fusion 10/24, Charcot foot gloria PT-OP-C Subjective Start: 05/15/21 07:31 Freq: Status: Active Protocol: Document 05/21/21 08:37 [facility] (Rec: 05/21/21 09:47 [facility] [id number]) OP-PT Subjective Patient Comments Patient Comments Pt reports fitter/welder started her on prednisone and is keeping her on it until they see her next week. Pt reports it has improved the pain. Notes she is considering another R hip injection. PT-OP-D Balance Start: 05/15/21 07:31 Freq: Status: Active Protocol: Document 05/15/21 10:38 [facility] (Rec: 05/15/21 12:15 [facility] [id number]) Balance Tests Ordoñez Balance Test Ordoñez Balance Test Score 35 Ordoñez Impairment Rating 20 to 39% Impaired (Score 34- 44) PT-OP-F Manual Assessment Start: 05/15/21 07:31 Freq: Status: Active Protocol: Document 05/15/21 10:38 [facility] (Rec: 05/15/21 12:15 [facility] [id number]) Manual Assessments Soft Tissue Assessment Soft Tissue Mobility Assessment B glute, R>L QL, ES B, R iliacus tenderness PT-OP-G Mobility & Gait Start: 05/15/21 07:31 Freq: Status: Active Protocol: Document 05/15/21 10:38 [facility] (Rec: 05/15/21 12:15 [facility] [id number]) OP Mobility Evaluation Bed Mobility Rolling able to roll w/pain Supine to and from Sit pain OP Gait Assessment Comments Gait Comments Very stiff and appears unsteady, lat shift w/WB, dec push off, dec stride length B PT-OP-J Posture/Palpation/Skin Start: 05/15/21 07:31 Freq: Status: Active Protocol: Document 05/15/21 10:38 [facility] (Rec: 05/15/21 12:15 [facility] [id number]) Posture Evaluation Comments Posture Comments fwd flex w/inch kyphosis PT-OP-L Special Tests Start: 05/15/21 07:31 Freq: Status: Active Protocol: Document 05/15/21 10:38 [facility] (Rec: 05/15/21 12:15 [facility] [id number]) Special Tests Lumbar Spine Special Tests Slump Test Results neg B Straight Leg Raise Test Results neg b PT-OP-M Strength Start: 05/15/21 07:31 Freq: Status: Active Protocol: Document 05/15/21 10:38 [facility] (Rec: 05/15/21 12:15 [facility] [id number]) Hip Strength Hip Manual Muscle Testing Left Flexion (L2) 3+ Fair+ Abduction 3 Fair External Rotation 3+ Fair+ Internal Rotation 3+ Fair+ Right Flexion (L2) 3+ Fair+ Abduction 3 Fair External Rotation 3+ Fair+ Internal Rotation 3+ Fair+ Knee Strength Knee Manual Muscle Testing Right Flexion (S2) 4- Good- Extension (L3) 4- Good- Comments pain in SI w/ext Left Flexion (S2) 4- Good- Extension (L3) 4+ Good+ Ankle/Foot Strength Ankle and Foot Manual Muscle Testing Right Dorsiflexion (L4) 3+ Fair+ Plantarflexion (S1) 3+ Fair+ Left Dorsiflexion (L4) 3+ Fair+ Plantarflexion (S1) 3+ Fair+ Comments painPF PT-OP-Q Treatments Start: 05/15/21 07:31 Freq: Status: Active Protocol: Document 05/21/21 08:37 [facility] (Rec: 05/21/21 09:47 [facility] [id number]) Therapeutic Exercises Supine Exercises core Supine Exercise Name BKFO Side bilateral Reps/Minutes 10 Comments focus on core & comfortable range LTR Side bilateral Reps/Minutes 10 Comments focus on core and controlled small comfortable range pelvic tilts Supine Exercise Name post then glute squeeze Side bilateral Reps/Minutes 5sec x12 Comments cues to avoid upper trunk flex & avoid HS activation Manual Therapy Treatment Soft Tissue Mobilization IT band Body Location TFL & ITB Mobilization Type Rolling,Strumming Intensity/Depth Moderate Body Position Hooklying Comments post border Self-Care/Home Management Treatment Education Other Education edu re: anatomy w/use of pics for hip ant/lat/post,edu re: why she got HS cramping w/ exercises as she was drivng through legs vs using core and if she feels pain in chest, she is liting chest and to avoid chest lift as that does not work mm. Edu improtance of doing comfortable range PT-OP-R Modalities Start: 05/15/21 07:31 Freq: Status: Active Protocol: Document 05/21/21 08:37 [facility] (Rec: 05/21/21 09:47 [facility] [id number]) Hot Pack/Cold Pack Treatment Cold Pack Location LB & R hip Patient Position Hooklying Treatment Duration (minutes) 10 PT-OP-T Assessment and Plan Start: 05/15/21 07:31 Freq: Status: Active Protocol: Document 05/21/21 08:37 [facility] (Rec: 05/21/21 09:47 [facility] [id number]) Physical Therapy Assessment Goals stability Short Term Goal (STG) Pt will be able to safely ascend and descend a curb in order to be safe when in the community. STG Duration 07/06/21 Ceramic Tile Installation Helper Goal (LTG) Pt will feel comfortable navigating community with her . LTG Duration 08/15/21 pain Ceramic Tile Installation Helper Goal (LTG) Pt will report SIJ, coccyx and R hip pain no greater than 2/ 10 on any given day for at least 2 week.s LTG Duration 08/15/21 strength Short Term Goal (STG) pt will be indep w/HEP for core stability, hip stability, and balance. STG Duration 06/25/21 Residential Goal (LTG) Pt will score at least 4/5 on all LE MMT to show improved strenght to improve pt mobility. LTG Duration 08/15/21 balance Impairment 35/56 Short Term Goal (STG) Pt will improve ORDOÑEZ balance score to at least 45 to show dec fall risk indoor STG Duration 06/30/21 Residential Goal (LTG) Pt will improve ORDOÑEZ balance score to at least 50 to show dec fall risk in outdoors/ community. LTG Duration 08/15/21 One Impairment Unable to sit for more than one hour due to hip pain, and has difficulty sleeping and moving in bed due to pain in low back and buttock(wakes every 2 hours) Short Term Goal (STG) Pt will be able to do sit to stand from any surfaces w/o inc R hip or back pain. STG Duration 07/05/21 Residential Goal (LTG) pt will be able to sleep and lay down w/o LB/SIJ pain or R hip pain. LTG Duration 08/15/21 Assessment Summary Assessment Pt did well with exercises when givena lot of cues dthroughout but otherwise would try to utilize a crunch motion when oing core facilitaion and would go in too large of range for her at the time. Signficant tightness along ITB likely contirbuting to her R hip pain. Physical Therapy Plan Frequency and Duration Frequency of Treatment 1-2x/week Duration of Treatment 3 months Plan of Care Start Date 05/15/21 Plan of Care End Date 08/15/21 Next Visit Focus/Plan Next Note Type Treatment Note Next Visit Plan review exercises & work on chest opening & manual lto Hip
--- NOTE | 2021-05-28 16:12 | PT.OTN ---
Current Diagnoses Sacroiliitis, not elsewhere classified (05/28/21) Other abnormalities of gait and mobility (05/28/21) Abnormal posture (05/28/21) Weakness (05/28/21) Other reduced mobility (05/28/21) Physical Therapy Treatment Note PT-OP-A Visit Information Start: 05/15/21 07:31 Freq: Status: Active Protocol: Document 05/28/21 15:19 [facility] (Rec: 05/28/21 16:11 [facility] [id number]) Out-Patient Physical Therapy Visit Information Visit Information Visit Type Treatment Note Visit Note 05/15 Visit Start Time 15:20 Visit Stop Time 16:15 Total Visit Minutes 55 Visit Number 3 Number of FASHION SHOW DIRECTOR Visits 0 PT-OP-B Current Condition Start: 05/15/21 07:31 Freq: Status: Active Protocol: Document 05/15/21 10:38 [facility] (Rec: 05/15/21 12:15 [facility] [id number]) Current Condition History of Current Condition Onset Date about 1 month ago Current Complaints SIJ pain and R hip pain & imbalance History of Current Condition Pt has history of chronic LBP and B foot pain w/history of falls and imbalance with multiple bouts of PT that have been successful at reducing pain in the past. Pt reports being sick the entire month of Mar w/juliane. She started in Jan having costrocontritis. She was feeling better w/SI pain after PT last Jan. She had a hip injection in R hip in Feb. She had chest CT, EKG and it was negative. MD would not inject her d/t pt not getting CT of sternum as MD kept changing what was needed for injection. 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 She had the wrong day and yesterday got 3/[address] way to [place] and realized it was wrong appt time. She is unsure when she will see her. She took her first dose of forest since she was off them while sick. She was taking methotrexate all along. She is still having sinus issues since being sick and is seeing allergy MD in [place] at end of month. She is not stable at all she feels and had difficulty w/on/off curbs. Pt reports R foot is so painful unless she has her shoes on. This just starteda bout a week ago so she needs to schedule to go backt o foot MD. reports she feels really unstable at night. Pt reports she is having hip issues again . Pt reports SIJ pain started about 3 weeks ago. It came on suddnely w/o any underlying causes. Denies any recent falls. Pt reports pain is not killing her but it very irritating and yesterday coccyx was killing me. She started Medaterrain diet she started and is noticing she is gaining weight and it didn't help w/pain. Has to sleep on heating pad at night. Once she gets up and is moving, it is better. Pt reports she no longer gardens. She feels like she will fall fwd if leaning fwd too much to garden and did fall last summer. Prior Treatments and Tests Mult bouts PT in past w/ improved pain Thoracic MRI 04/28: IMPRESSION: 1. Probable synovial cyst resulting in [id number]-kk-[id number] canal stenosis at C7-T1 can be further evaluated with MRI cervical spine with and without contrast 2. Thoracic dextroscoliosis and multilevel degenerative changes Lumbar CT 09/10/20: MPRESSION: Multilevel degenerative disc disease and arthropathy results in varying degrees of central and foraminal stenosis, including severe central stenosis at L3- 4. L4-5 and L5-S1 discectomy and fusion with posterior kimi and screw instrumentation in position. No hardware failure or loosening. Decompressive L4 and L5 laminectomies Treatment Goals Patient/Caregiver Goals be able to get up/down from a curb, feel more stable walking , improve pain and improve ability to sleep & sit down Personal Factors Other Personal Factors That May Effect MH: rheumatoid arthritis, GERD Therapy/Recovery , PE, depression, bilateral ankle fusion, left shoulder replacement 2018, right TKA , spinal fusion 10/24, Charcot foot gloria PT-OP-C Subjective Start: 05/15/21 07:31 Freq: Status: Active Protocol: Document 05/28/21 15:19 [facility] (Rec: 05/28/21 16:11 [facility] [id number]) OP-PT Subjective Patient Comments Patient Comments 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 Will be SI pain better on Prednisone, rib still hurts. Went back to pool 2 days ago for first time since February, felt wonderful but was exhausted and hasn't been able to walk without cane since due to pain right low back. PT-OP-D Balance Start: 05/15/21 07:31 Freq: Status: Active Protocol: Document 05/15/21 10:38 [facility] (Rec: 05/15/21 12:15 [facility] [id number]) Balance Tests Ordoñez Balance Test Ordoñez Balance Test Score 35 Ordoñez Impairment Rating 20 to 39% Impaired (Score 34- 44) PT-OP-F Manual Assessment Start: 05/15/21 07:31 Freq: Status: Active Protocol: Document 05/15/21 10:38 [facility] (Rec: 05/15/21 12:15 [facility] [id number]) Manual Assessments Soft Tissue Assessment Soft Tissue Mobility Assessment B glute, R>L QL, ES B, R iliacus tenderness PT-OP-G Mobility & Gait Start: 05/15/21 07:31 Freq: Status: Active Protocol: Document 05/15/21 10:38 [facility] (Rec: 05/15/21 12:15 [facility] [id number]) OP Mobility Evaluation Bed Mobility Rolling able to roll w/pain Supine to and from Sit pain OP Gait Assessment Comments Gait Comments Very stiff and appears unsteady, lat shift w/WB, dec push off, dec stride length B PT-OP-J Posture/Palpation/Skin Start: 05/15/21 07:31 Freq: Status: Active Protocol: Document 05/15/21 10:38 [facility] (Rec: 05/15/21 12:15 [facility] [id number]) Posture Evaluation Comments Posture Comments fwd flex w/inch kyphosis PT-OP-L Special Tests Start: 05/15/21 07:31 Freq: Status: Active Protocol: Document 05/15/21 10:38 [facility] (Rec: 05/15/21 12:15 [facility] [id number]) Special Tests Lumbar Spine Special Tests Slump Test Results neg B Straight Leg Raise Test Results neg b PT-OP-M Strength Start: 05/15/21 07:31 Freq: Status: Active Protocol: Document 05/15/21 10:38 [facility] (Rec: 05/15/21 12:15 [facility] [id number]) Hip Strength Hip Manual Muscle Testing Left Flexion (L2) 3+ Fair+ Abduction 3 Fair External Rotation 3+ Fair+ Internal Rotation 3+ Fair+ Right Flexion (L2) 3+ Fair+ Abduction 3 Fair External Rotation 3+ Fair+ Internal Rotation 3+ Fair+ Knee Strength Knee Manual Muscle Testing Right Flexion (S2) 4- Good- Extension (L3) 4- Good- Comments pain in SI w/ext Left Flexion (S2) 4- Good- Extension (L3) 4+ Good+ Ankle/Foot Strength Ankle and Foot Manual Muscle Testing Right Dorsiflexion (L4) 3+ Fair+ Plantarflexion (S1) 3+ Fair+ Left Dorsiflexion (L4) 3+ Fair+ Plantarflexion (S1) 3+ Fair+ Comments painPF PT-OP-Q Treatments Start: 05/15/21 07:31 Freq: Status: Active Protocol: Document 05/28/21 15:19 [facility] (Rec: 05/28/21 16:11 [facility] [id number]) Cardio Equipment Recumbent Stepper (Sci-Fit) Duration (Minutes) 7 Resistance 1 Seat Position 12 Other verbal cues for LE alignment, core activation, push thru entire foot Therapeutic Exercises Supine Exercises core Supine Exercise Name BKFO Side bilateral Reps/Minutes 10 Comments focus on core & comfortable range LTR Side bilateral Reps/Minutes 10 Comments focus on core and controlled small comfortable range pelvic tilts Supine Exercise Name post then glute squeeze Side bilateral Reps/Minutes 5sec x12 Comments cues to avoid upper trunk flex & avoid HS activation Manual Therapy Treatment Soft Tissue Mobilization lateral quads Mobilization Type Myofascial Release,Strumming Intensity/Depth Moderate Body Position Hooklying IT band Body Location TFL & ITB Mobilization Type Rolling,Strumming Intensity/Depth Moderate Body Position Hooklying Comments post border right lumbar paraspinals Body Location gloria paraspinals & right QL into sacrum Mobilization Type Myofascial Release,Rolling, Other Intensity/Depth Moderate Body Position Sidelying Comments Reported decrease in pain, palpable decrease in soft tissue tension Self-Care/Home Management Treatment Education Patient Education Home Exercise Program,Pain Management Other Education deep breathing for chest expansion, scapular squeezes, and shoulder extension. PT-OP-R Modalities Start: 05/15/21 07:31 Freq: Status: Active Protocol: Document 05/28/21 15:19 [facility] (Rec: 05/28/21 16:11 [facility] [id number]) Hot Pack/Cold Pack Treatment Cold Pack Location right LB and right IT band/hip Patient Position Hooklying Treatment Duration (minutes) 10 PT-OP-T Assessment and Plan Start: 05/15/21 07:31 Freq: Status: Active Protocol: Document 05/28/21 15:19 [facility] (Rec: 05/28/21 16:11 [facility] [id number]) Physical Therapy Assessment Impairments Impairments Activity Tolerance,Balance, Functional Activities, Functional Mobility,Gait,Pain, Posture,ROM,Soft Tissue Mobility,Strength Goals stability Short Term Goal (STG) Pt will be able to safely ascend and descend a curb in order to be safe when in the community. STG Duration 07/06/21 Detention Goal (LTG) Pt will feel comfortable navigating community with her . LTG Duration 08/15/21 pain Field Technician Goal (LTG) Pt will report SIJ, coccyx and R hip pain no greater than 2/ 10 on any given day for at least 2 week.s LTG Duration 08/15/21 strength Short Term Goal (STG) pt will be indep w/HEP for core stability, hip stability, and balance. STG Duration 06/25/21 Field Technician Goal (LTG) Pt will score at least 4/5 on all LE MMT to show improved strenght to improve pt mobility. LTG Duration 08/15/21 balance Impairment 35/56 Short Term Goal (STG) Pt will improve ORDOÑEZ balance score to at least 45 to show dec fall risk indoor STG Duration 06/30/21 Detention Goal (LTG) Pt will improve ORDOÑEZ balance score to at least 50 to show dec fall risk in outdoors/ community. LTG Duration 08/15/21 One Impairment Unable to sit for more than one hour due to hip pain, and has difficulty sleeping and moving in bed due to pain in low back and buttock(wakes every 2 hours) Short Term Goal (STG) Pt will be able to do sit to stand from any surfaces w/o inc R hip or back pain. STG Duration 07/05/21 Field Technician Goal (LTG) pt will be able to sleep and lay down w/o LB/SIJ pain or R hip pain. LTG Duration 08/15/21 Assessment Summary Assessment Patient fatigued and in more pain today, was able to tolerate Sci-Fit, demonstrated good undertstanding of gentle postural correction exercises and deep breathing. Increased manual therapy component to session with good tolerance. Physical Therapy Plan Frequency and Duration Frequency of Treatment 1-2x/week Duration of Treatment 3 months Plan of Care Start Date 05/15/21 Plan of Care End Date 08/15/21 Therapeutic Interventions Therapeutic Interventions Aquatic Therapy,Balance Training,Gait Training,Home Exercise Program,Joint Mobilizations,Manual Therapy, Neuromuscular Re-education, Orthotic/Prosthetic Management ,Patient/Caregiver Education, Self-Care/Home Management,Soft Tissue Mobilization,Taping, Therapeutic Activities, Therapeutic Exercises Modalities Cold Pack/Ice Massage,Electric Stimulation,Hot Packs, Infrared Therapy,Ultrasound Next Visit Focus/Plan Next Note Type Treatment Note Next Visit Plan Continue gentle ther ex progression, manual therapy, modalities as needed to decrease pain, and improve function.
--- NOTE | 2021-06-02 09:04 | PT.OTN ---
Current Diagnoses Sacroiliitis, not elsewhere classified (06/02/21) Other abnormalities of gait and mobility (06/02/21) Abnormal posture (06/02/21) Weakness (06/02/21) Other reduced mobility (06/02/21) Physical Therapy Treatment Note PT-OP-A Visit Information Start: 05/15/21 07:31 Freq: Status: Active Protocol: Document 06/02/21 07:50 [facility] (Rec: 06/02/21 09:03 [facility] [id number]) Out-Patient Physical Therapy Visit Information Visit Information Visit Type Treatment Note Visit Note 06/15 Visit Start Time 08:14 Visit Stop Time 09:05 Total Visit Minutes 51 Visit Number 4 Number of ASSISTANT GROCERY Visits 0 PT-OP-B Current Condition Start: 05/15/21 07:31 Freq: Status: Active Protocol: Document 05/15/21 10:38 [facility] (Rec: 05/15/21 12:15 [facility] [id number]) Current Condition History of Current Condition Onset Date about 1 month ago Current Complaints SIJ pain and R hip pain & imbalance History of Current Condition Pt has history of chronic LBP and B foot pain w/history of falls and imbalance with multiple bouts of PT that have been successful at reducing pain in the past. Pt reports being sick the entire month of Mar w/juliane. She started in Jan having costrocontritis. She was feeling better w/SI pain after PT last Jan. She had a hip injection in R hip in Feb. She had chest CT, EKG and it was negative. MD would not inject her d/t pt not getting CT of sternum as MD kept changing what was needed for injection. 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 She had the wrong day and yesterday got 3/[address] to [place] and realized it was wrong appt time. She is unsure when she will see her. She took her first dose of forest since she was off them while sick. She was taking methotrexate all along. She is still having sinus issues since being sick and is seeing allergy MD in [place] at end of month. She is not stable at all she feels and had difficulty w/on/off curbs. Pt reports R foot is so painful unless she has her shoes on. This just starteda bout a week ago so she needs to schedule to go backt o foot MD. reports she feels really unstable at night. Pt reports she is having hip issues again . Pt reports SIJ pain started about 3 weeks ago. It came on suddnely w/o any underlying causes. Denies any recent falls. Pt reports pain is not killing her but it very irritating and yesterday coccyx was killing me. She started Medaterrain diet she started and is noticing she is gaining weight and it didn't help w/pain. Has to sleep on heating pad at night. Once she gets up and is moving, it is better. Pt reports she no longer gardens. She feels like she will fall fwd if leaning fwd too much to garden and did fall last summer. Prior Treatments and Tests Mult bouts PT in past w/ improved pain Thoracic MRI 04/28: IMPRESSION: 1. Probable synovial cyst resulting in bfyp-le-tkmjmzpc canal stenosis at C7-T1 can be further evaluated with MRI cervical spine with and without contrast 2. Thoracic dextroscoliosis and multilevel degenerative changes Lumbar CT 09/10/20: MPRESSION: Multilevel degenerative disc disease and arthropathy results in varying degrees of central and foraminal stenosis, including severe central stenosis at L3- 4. L4-5 and L5-S1 discectomy and fusion with posterior kimi and screw instrumentation in position. No hardware failure or loosening. Decompressive L4 and L5 laminectomies Treatment Goals Patient/Caregiver Goals be able to get up/down from a curb, feel more stable walking , improve pain and improve ability to sleep & sit down Personal Factors Other Personal Factors That May Effect MH: rheumatoid arthritis, GERD Therapy/Recovery , PE, depression, bilateral ankle fusion, left shoulder replacement 2018, right TKA , spinal fusion 10/24, Charcot foot gloria PT-OP-C Subjective Start: 05/15/21 07:31 Freq: Status: Active Protocol: Document 06/02/21 07:50 [facility] (Rec: 06/02/21 09:03 [facility] [id number]) OP-PT Subjective Patient Comments Patient Comments Pt reports she sat a lot yesterday and coccyx is sore. She went to the pool on Wednesday and did okay PT-OP-D Balance Start: 05/15/21 07:31 Freq: Status: Active Protocol: Document 05/15/21 10:38 [facility] (Rec: 05/15/21 12:15 [facility] [id number]) Balance Tests Ordoñez Balance Test Ordoñez Balance Test Score 35 Ordoñez Impairment Rating 20 to 39% Impaired (Score 34- 44) PT-OP-F Manual Assessment Start: 05/15/21 07:31 Freq: Status: Active Protocol: Document 05/15/21 10:38 [facility] (Rec: 05/15/21 12:15 [facility] [id number]) Manual Assessments Soft Tissue Assessment Soft Tissue Mobility Assessment B glute, R>L QL, ES B, R iliacus tenderness PT-OP-G Mobility & Gait Start: 05/15/21 07:31 Freq: Status: Active Protocol: Document 05/15/21 10:38 [facility] (Rec: 05/15/21 12:15 [facility] [id number]) OP Mobility Evaluation Bed Mobility Rolling able to roll w/pain Supine to and from Sit pain OP Gait Assessment Comments Gait Comments Very stiff and appears unsteady, lat shift w/WB, dec push off, dec stride length B PT-OP-J Posture/Palpation/Skin Start: 05/15/21 07:31 Freq: Status: Active Protocol: Document 05/15/21 10:38 [facility] (Rec: 05/15/21 12:15 [facility] [id number]) Posture Evaluation Comments Posture Comments fwd flex w/inch kyphosis PT-OP-L Special Tests Start: 05/15/21 07:31 Freq: Status: Active Protocol: Document 05/15/21 10:38 [facility] (Rec: 05/15/21 12:15 [facility] [id number]) Special Tests Lumbar Spine Special Tests Slump Test Results neg B Straight Leg Raise Test Results neg b PT-OP-M Strength Start: 05/15/21 07:31 Freq: Status: Active Protocol: Document 05/15/21 10:38 [facility] (Rec: 05/15/21 12:15 [facility] [id number]) Hip Strength Hip Manual Muscle Testing Left Flexion (L2) 3+ Fair+ Abduction 3 Fair External Rotation 3+ Fair+ Internal Rotation 3+ Fair+ Right Flexion (L2) 3+ Fair+ Abduction 3 Fair External Rotation 3+ Fair+ Internal Rotation 3+ Fair+ Knee Strength Knee Manual Muscle Testing Right Flexion (S2) 4- Good- Extension (L3) 4- Good- Comments pain in SI w/ext Left Flexion (S2) 4- Good- Extension (L3) 4+ Good+ Ankle/Foot Strength Ankle and Foot Manual Muscle Testing Right Dorsiflexion (L4) 3+ Fair+ Plantarflexion (S1) 3+ Fair+ Left Dorsiflexion (L4) 3+ Fair+ Plantarflexion (S1) 3+ Fair+ Comments painPF PT-OP-Q Treatments Start: 05/15/21 07:31 Freq: Status: Active Protocol: Document 06/02/21 07:50 [facility] (Rec: 06/02/21 09:03 [facility] [id number]) Therapeutic Exercises Supine Exercises add Supine Exercise Name ball squeeze w/TA contraction Side bilateral Reps/Minutes 5 sec x10 Comments cues for breathing core Supine Exercise Name BKFO Side bilateral Reps/Minutes 10 Comments focus on core & comfortable range LTR Side bilateral Reps/Minutes 10 Comments focus on core and controlled small comfortable range pelvic tilts Supine Exercise Name post then glute squeeze Side bilateral Reps/Minutes 5sec x10 Comments cues to avoid upper trunk flex & avoid HS activation Manual Therapy Treatment Soft Tissue Mobilization iliopsoas Body Location right Mobilization Type Sustained Pressure Intensity/Depth Moderate Body Position Sidelying glutes Body Location R glutes lat & inf Mobilization Type Strumming,Sustained Pressure Intensity/Depth Moderate Body Position Sidelying IT band Body Location TFL & ITB Mobilization Type Rolling,Strumming Intensity/Depth Moderate Body Position Sidelying Comments post border right lumbar paraspinals Body Location gloria paraspinals & right QL into sacrum Mobilization Type Myofascial Release,Rolling, Other Intensity/Depth Moderate Body Position Sidelying Comments w/gentle passive post dep right piriformis Body Location piriformis Mobilization Type Myofascial Release,Sustained Pressure,Trigger Point Release Intensity/Depth Moderate Body Position left sidelying Comments lateral sacral border Self-Care/Home Management Treatment Education Other Education Review of pt exercises (all prior exercises). DIscused w/ pt to only to do a small number of them and discussed there are so many because they are progressive. Edu and star on just easy exercises to start w/core engagement & glute engagment along w/gentle stretching. PT-OP-R Modalities Start: 05/15/21 07:31 Freq: Status: Active Protocol: Document 06/02/21 07:50 [facility] (Rec: 06/02/21 09:04 [facility] [id number]) Hot Pack/Cold Pack Treatment Cold Pack Location right LB and right IT band/hip Patient Position Sidelying Treatment Duration (minutes) 10 PT-OP-T Assessment and Plan Start: 05/15/21 07:31 Freq: Status: Active Protocol: Document 06/02/21 07:50 [facility] (Rec: 06/02/21 09:03 [facility] [id number]) Physical Therapy Assessment Goals stability Short Term Goal (STG) Pt will be able to safely ascend and descend a curb in order to be safe when in the community. STG Duration 07/06/21 Certified Medical Aide Goal (LTG) Pt will feel comfortable navigating community with her . LTG Duration 08/15/21 pain Residential Goal (LTG) Pt will report SIJ, coccyx and R hip pain no greater than 2/ 10 on any given day for at least 2 week.s LTG Duration 08/15/21 strength Short Term Goal (STG) pt will be indep w/HEP for core stability, hip stability, and balance. STG Duration 06/25/21 Certified Medical Aide Goal (LTG) Pt will score at least 4/5 on all LE MMT to show improved strenght to improve pt mobility. LTG Duration 08/15/21 balance Impairment 35/56 Short Term Goal (STG) Pt will improve ORDOÑEZ balance score to at least 45 to show dec fall risk indoor STG Duration 06/30/21 Residential Goal (LTG) Pt will improve ORDOÑEZ balance score to at least 50 to show dec fall risk in outdoors/ community. LTG Duration 08/15/21 One Impairment Unable to sit for more than one hour due to hip pain, and has difficulty sleeping and moving in bed due to pain in low back and buttock(wakes every 2 hours) Short Term Goal (STG) Pt will be able to do sit to stand from any surfaces w/o inc R hip or back pain. STG Duration 07/05/21 Residential Goal (LTG) pt will be able to sleep and lay down w/o LB/SIJ pain or R hip pain. LTG Duration 08/15/21 Assessment Summary Assessment Pt did well with exercises today and was able to do them without much cueing except cues for breathing duirng exercises. Pt reports relief w /manual treatment. Physical Therapy Plan Frequency and Duration Frequency of Treatment 1-2x/week Duration of Treatment 3 months Plan of Care Start Date 05/15/21 Plan of Care End Date 08/15/21 Next Visit Focus/Plan Next Note Type Treatment Note Next Visit Plan Continue gentle ther ex progression, manual therapy, modalities as needed to decrease pain, and improve function.
--- NOTE | 2021-06-05 16:29 | PT.OTN ---
Current Diagnoses Sacroiliitis, not elsewhere classified (06/05/21) Other abnormalities of gait and mobility (06/05/21) Abnormal posture (06/05/21) Weakness (06/05/21) Other reduced mobility (06/05/21) Physical Therapy Treatment Note PT-OP-A Visit Information Start: 05/15/21 07:31 Freq: Status: Active Protocol: Document 06/05/21 08:09 [facility] (Rec: 06/05/21 08:41 [facility] [id number]) Out-Patient Physical Therapy Visit Information Visit Information Visit Type Treatment Note Visit Note 07/15 Visit Start Time 08:14 Visit Stop Time 09:05 Total Visit Minutes 51 Visit Number 5 Number of BILLET DRILLER Visits 0 PT-OP-B Current Condition Start: 05/15/21 07:31 Freq: Status: Active Protocol: Document 05/15/21 10:38 [facility] (Rec: 05/15/21 12:15 [facility] [id number]) Current Condition History of Current Condition Onset Date about 1 month ago Current Complaints SIJ pain and R hip pain & imbalance History of Current Condition Pt has history of chronic LBP and B foot pain w/history of falls and imbalance with multiple bouts of PT that have been successful at reducing pain in the past. Pt reports being sick the entire month of Mar w/juliane. She started in Jan having costrocontritis. She was feeling better w/SI pain after PT last Jan. She had a hip injection in R hip in Feb. She had chest CT, EKG and it was negative. MD would not inject her d/t pt not getting CT of sternum as MD kept changing what was needed for injection. Pt hasn't seen canadian bacon tier for 6 months. She had the wrong day and yesterday got 3/4 way to [place] and realized it was wrong appt time. She is unsure when she will see her. She took her first dose of forest since she was off them while sick. She was taking methotrexate all along. She is still having sinus issues since being sick and is seeing allergy MD in [place] at end of month. She is not stable at all she feels and had difficulty w/on/off curbs. Pt reports R foot is so painful unless she has her shoes on. This just starteda bout a week ago so she needs to schedule to go backt o foot MD. reports she feels really unstable at night. Pt reports she is having hip issues again . Pt reports SIJ pain started about 3 weeks ago. It came on suddnely w/o any underlying causes. Denies any recent falls. Pt reports pain is not killing her but it very irritating and yesterday coccyx was killing me. She started Medaterrain diet she started and is noticing she is gaining weight and it didn't help w/pain. Has to sleep on heating pad at night. Once she gets up and is moving, it is better. Pt reports she no longer gardens. She feels like she will fall fwd if leaning fwd too much to garden and did fall last summer. Prior Treatments and Tests Mult bouts PT in past w/ improved pain Thoracic MRI 04/28: IMPRESSION: 1. Probable synovial cyst resulting in bfun-mq-eohqkjzk canal stenosis at C7-T1 can be further evaluated with MRI cervical spine with and without contrast 2. Thoracic dextroscoliosis and multilevel degenerative changes Lumbar CT 09/10/20: MPRESSION: Multilevel degenerative disc disease and arthropathy results in varying degrees of central and foraminal stenosis, including severe central stenosis at L3- 4. L4-5 and L5-S1 discectomy and fusion with posterior kimi and screw instrumentation in position. No hardware failure or loosening. Decompressive L4 and L5 laminectomies Treatment Goals Patient/Caregiver Goals be able to get up/down from a curb, feel more stable walking , improve pain and improve ability to sleep & sit down Personal Factors Other Personal Factors That May Effect MH: rheumatoid arthritis, GERD Therapy/Recovery , PE, depression, bilateral ankle fusion, left shoulder replacement 2018, right TKA , spinal fusion 10/24, Charcot foot gloria PT-OP-C Subjective Start: 05/15/21 07:31 Freq: Status: Active Protocol: Document 06/05/21 08:09 [facility] (Rec: 06/05/21 08:41 [facility] [id number]) OP-PT Subjective Patient Comments Patient Comments Reports feeling more unsteady than she's ever been, feeling like she might have to use walker especially in the middle of the night. SI hurting, chest hurting, can't seem to get them calmed down, even with 5 mg Prednisone. Doing HEP, although reports can't do reverse clamshell on right noticing more recently. Has developed yeast injection so can't go to the pool. Eyes are bothering her after cataract surgery, feel swollen and uncomfortable and not seeing as well as expected . Concerned about inability to do reverse clamshell PT-OP-D Balance Start: 05/15/21 07:31 Freq: Status: Active Protocol: Document 05/15/21 10:38 [facility] (Rec: 05/15/21 12:15 [facility] [id number]) Balance Tests Ordoñez Balance Test Ordoñez Balance Test Score 35 Ordoñez Impairment Rating 20 to 39% Impaired (Score 34- 44) PT-OP-F Manual Assessment Start: 05/15/21 07:31 Freq: Status: Active Protocol: Document 05/15/21 10:38 [facility] (Rec: 05/15/21 12:15 [facility] [id number]) Manual Assessments Soft Tissue Assessment Soft Tissue Mobility Assessment B glute, R>L QL, ES B, R iliacus tenderness PT-OP-G Mobility & Gait Start: 05/15/21 07:31 Freq: Status: Active Protocol: Document 05/15/21 10:38 [facility] (Rec: 05/15/21 12:15 [facility] [id number]) OP Mobility Evaluation Bed Mobility Rolling able to roll w/pain Supine to and from Sit pain OP Gait Assessment Comments Gait Comments Very stiff and appears unsteady, lat shift w/WB, dec push off, dec stride length B PT-OP-J Posture/Palpation/Skin Start: 05/15/21 07:31 Freq: Status: Active Protocol: Document 05/15/21 10:38 [facility] (Rec: 05/15/21 12:15 [facility] [id number]) Posture Evaluation Comments Posture Comments fwd flex w/inch kyphosis PT-OP-L Special Tests Start: 05/15/21 07:31 Freq: Status: Active Protocol: Document 05/15/21 10:38 [facility] (Rec: 05/15/21 12:15 [facility] [id number]) Special Tests Lumbar Spine Special Tests Slump Test Results neg B Straight Leg Raise Test Results neg b PT-OP-M Strength Start: 05/15/21 07:31 Freq: Status: Active Protocol: Document 05/15/21 10:38 [facility] (Rec: 05/15/21 12:15 [facility] [id number]) Hip Strength Hip Manual Muscle Testing Left Flexion (L2) 3+ Fair+ Abduction 3 Fair External Rotation 3+ Fair+ Internal Rotation 3+ Fair+ Right Flexion (L2) 3+ Fair+ Abduction 3 Fair External Rotation 3+ Fair+ Internal Rotation 3+ Fair+ Knee Strength Knee Manual Muscle Testing Right Flexion (S2) 4- Good- Extension (L3) 4- Good- Comments pain in SI w/ext Left Flexion (S2) 4- Good- Extension (L3) 4+ Good+ Ankle/Foot Strength Ankle and Foot Manual Muscle Testing Right Dorsiflexion (L4) 3+ Fair+ Plantarflexion (S1) 3+ Fair+ Left Dorsiflexion (L4) 3+ Fair+ Plantarflexion (S1) 3+ Fair+ Comments painPF PT-OP-Q Treatments Start: 05/15/21 07:31 Freq: Status: Active Protocol: Document 06/05/21 08:09 [facility] (Rec: 06/05/21 08:41 [facility] [id number]) Cardio Equipment Recumbent Stepper (Sci-Fit) Duration (Minutes) 8 Resistance 1 Seat Position 11 Other verbal cues for LE alignment, core activation, push thru entire foot Therapeutic Exercises Supine Exercises core Supine Exercise Name BKFO Side bilateral Comments review for HEP LTR Comments review for HEP pelvic tilts Comments review for HEP Sidelying Exercises reverse clam Side right Reps/Minutes 10x Comments cues for core activation, min assist Sitting Exercises sit to stand Reps/Minutes 5x Comments elevated table 22, cues for core activation and neutral LE 's Standing Exercises bal Standing Exercise Name standing bal, gentle weight shifts, core activation Equipment Used mirror for visual feedback Therapeutic Activity Therapeutic Activity bed positioning Comments review, encouraged use of towel under side and abdomen Manual Therapy Treatment Soft Tissue Mobilization glutes Body Location R glutes lat & inf Mobilization Type Strumming,Sustained Pressure Intensity/Depth Moderate Body Position Sidelying IT band Body Location TFL & ITB Mobilization Type Rolling,Strumming Intensity/Depth Moderate Body Position Sidelying Comments post border right piriformis Body Location piriformis Mobilization Type Myofascial Release,Sustained Pressure,Trigger Point Release Intensity/Depth Moderate Body Position left sidelying Comments lateral sacral border PT-OP-R Modalities Start: 05/15/21 07:31 Freq: Status: Active Protocol: Document 06/05/21 08:09 [facility] (Rec: 06/05/21 14:29 [facility] [id number]) Hot Pack/Cold Pack Treatment Cold Pack Location right LB and right IT band/hip Patient Position Sidelying Treatment Duration (minutes) 10 PT-OP-T Assessment and Plan Start: 05/15/21 07:31 Freq: Status: Active Protocol: Document 06/05/21 08:09 [facility] (Rec: 06/05/21 08:41 [facility] [id number]) Physical Therapy Assessment Goals stability Short Term Goal (STG) Pt will be able to safely ascend and descend a curb in order to be safe when in the community. STG Duration 07/06/21 Guide Excursion Goal (LTG) Pt will feel comfortable navigating community with her . LTG Duration 08/15/21 pain Fci Goal (LTG) Pt will report SIJ, coccyx and R hip pain no greater than 2/ 10 on any given day for at least 2 week.s LTG Duration 08/15/21 strength Short Term Goal (STG) pt will be indep w/HEP for core stability, hip stability, and balance. STG Duration 06/25/21 [facility] Goal (LTG) Pt will score at least 4/5 on all LE MMT to show improved strenght to improve pt mobility. LTG Duration 08/15/21 balance Impairment 35/56 Short Term Goal (STG) Pt will improve ORDOÑEZ balance score to at least 45 to show dec fall risk indoor STG Duration 06/30/21 [facility] Goal (LTG) Pt will improve ORDOÑEZ balance score to at least 50 to show dec fall risk in outdoors/ community. LTG Duration 08/15/21 One Impairment Unable to sit for more than one hour due to hip pain, and has difficulty sleeping and moving in bed due to pain in low back and buttock(wakes every 2 hours) Short Term Goal (STG) Pt will be able to do sit to stand from any surfaces w/o inc R hip or back pain. STG Duration 07/05/21 Guide Excursion Goal (LTG) pt will be able to sleep and lay down w/o LB/SIJ pain or R hip pain. LTG Duration 08/15/21 Assessment Summary Assessment Pt. continues to have multiple areas of pain, biomechanically feel her altered biomechanics of walking because of ankle fusions contribute highly to her back and hip pain. SHe has been unable to go to the pool for aquatic exercise due to yeast infection. Demonstrated good understanding of gentle balance and sit to stand exercises with cues for correct muscle activation. Will be seeing canadian bacon tier soon as Prednisone doesn't appear to be calming her inflammatory process and pain. Improved reverse clamshell after min assist by PT to guide motion. Physical Therapy Plan Frequency and Duration Frequency of Treatment 1-2x/week Duration of Treatment 3 months Plan of Care Start Date 05/15/21 Plan of Care End Date 08/15/21 Therapeutic Interventions Therapeutic Interventions Aquatic Therapy,Balance Training,Gait Training,Home Exercise Program,Joint Mobilizations,Manual Therapy, Neuromuscular Re-education, Orthotic/Prosthetic Management ,Patient/Caregiver Education, Self-Care/Home Management,Soft Tissue Mobilization,Taping, Therapeutic Activities, Therapeutic Exercises Modalities Cold Pack/Ice Massage,Electric Stimulation,Hot Packs, Infrared Therapy,Ultrasound Next Visit Focus/Plan Next Note Type Treatment Note Next Visit Plan Continue gentle ther ex progression, manual therapy, modalities as needed to decrease pain, and improve function.
--- NOTE | 2021-06-09 10:04 | PT.OTN ---
Current Diagnoses Sacroiliitis, not elsewhere classified (06/09/21) Other abnormalities of gait and mobility (06/09/21) Abnormal posture (06/09/21) Weakness (06/09/21) Other reduced mobility (06/09/21) Physical Therapy Treatment Note PT-OP-A Visit Information Start: 05/15/21 07:31 Freq: Status: Active Protocol: Document 06/09/21 09:06 SAK (Rec: 06/09/21 10:04 [facility]AK [id number]) Out-Patient Physical Therapy Visit Information Visit Information Visit Type Treatment Note Visit Note 08/15 Visit Start Time 09:00 Visit Stop Time 10:06 Total Visit Minutes 56 Visit Number 6 Number of PAIRER ODDS Visits 0 PT-OP-B Current Condition Start: 05/15/21 07:31 Freq: Status: Active Protocol: Document 05/15/21 10:38 [facility] (Rec: 05/15/21 12:15 [facility] [id number]) Current Condition History of Current Condition Onset Date about 1 month ago Current Complaints SIJ pain and R hip pain & imbalance History of Current Condition Pt has history of chronic LBP and B foot pain w/history of falls and imbalance with multiple bouts of PT that have been successful at reducing pain in the past. Pt reports being sick the entire month of Mar w/juliane. She started in Jan having costrocontritis. She was feeling better w/SI pain after PT last Jan. She had a hip injection in R hip in Feb. She had chest CT, EKG and it was negative. MD would not inject her d/t pt not getting CT of sternum as MD kept changing what was needed for injection. Pt hasn't seen oncology nurse navigator for 6 months. She had the wrong day and yesterday got 3/[address] to [place] and realized it was wrong appt time. She is unsure when she will see her. She took her first dose of forest since she was off them while sick. She was taking methotrexate all along. She is still having sinus issues since being sick and is seeing allergy MD in [place] at end of month. She is not stable at all she feels and had difficulty w/on/off curbs. Pt reports R foot is so painful unless she has her shoes on. This just starteda bout a week ago so she needs to schedule to go backt o foot MD. reports she feels really unstable at night. Pt reports she is having hip issues again . Pt reports SIJ pain started about 3 weeks ago. It came on suddnely w/o any underlying causes. Denies any recent falls. Pt reports pain is not killing her but it very irritating and yesterday coccyx was killing me. She started Medaterrain diet she started and is noticing she is gaining weight and it didn't help w/pain. Has to sleep on heating pad at night. Once she gets up and is moving, it is better. Pt reports she no longer gardens. She feels like she will fall fwd if leaning fwd too much to garden and did fall last summer. Prior Treatments and Tests Mult bouts PT in past w/ improved pain Thoracic MRI 04/28: IMPRESSION: 1. Probable synovial cyst resulting in zdwr-pi-epifosza canal stenosis at C7-T1 can be further evaluated with MRI cervical spine with and without contrast 2. Thoracic dextroscoliosis and multilevel degenerative changes Lumbar CT 09/10/20: MPRESSION: Multilevel degenerative disc disease and arthropathy results in varying degrees of central and foraminal stenosis, including severe central stenosis at L3- 4. L4-5 and L5-S1 discectomy and fusion with posterior kimi and screw instrumentation in position. No hardware failure or loosening. Decompressive L4 and L5 laminectomies Treatment Goals Patient/Caregiver Goals be able to get up/down from a curb, feel more stable walking , improve pain and improve ability to sleep & sit down Personal Factors Other Personal Factors That May Effect MH: rheumatoid arthritis, GERD Therapy/Recovery , PE, depression, bilateral ankle fusion, left shoulder replacement 2018, right TKA , spinal fusion 10/24, Charcot foot gloria PT-OP-C Subjective Start: 05/15/21 07:31 Freq: Status: Active Protocol: Document 06/09/21 09:06 SAK (Rec: 06/09/21 10:04 [facility]AK [id number]) OP-PT Subjective Patient Comments Patient Comments Getting into the pool yesterday, stepping backward lowering left leg first felt a ripping sensation right groin to knee. Did very gentle workout in pool, did icing. Poor sleep due to burning pain. PT-OP-D Balance Start: 05/15/21 07:31 Freq: Status: Active Protocol: Document 05/15/21 10:38 [facility] (Rec: 05/15/21 12:15 [facility] [id number]) Balance Tests Ordoñez Balance Test Ordoñez Balance Test Score 35 Ordoñez Impairment Rating 20 to 39% Impaired (Score 34- 44) PT-OP-F Manual Assessment Start: 05/15/21 07:31 Freq: Status: Active Protocol: Document 05/15/21 10:38 [facility] (Rec: 05/15/21 12:15 [facility] [id number]) Manual Assessments Soft Tissue Assessment Soft Tissue Mobility Assessment B glute, R>L QL, ES B, R iliacus tenderness PT-OP-G Mobility & Gait Start: 05/15/21 07:31 Freq: Status: Active Protocol: Document 05/15/21 10:38 [facility] (Rec: 05/15/21 12:15 [facility] [id number]) OP Mobility Evaluation Bed Mobility Rolling able to roll w/pain Supine to and from Sit pain OP Gait Assessment Comments Gait Comments Very stiff and appears unsteady, lat shift w/WB, dec push off, dec stride length B PT-OP-J Posture/Palpation/Skin Start: 05/15/21 07:31 Freq: Status: Active Protocol: Document 05/15/21 10:38 [facility] (Rec: 05/15/21 12:15 [facility] [id number]) Posture Evaluation Comments Posture Comments fwd flex w/inch kyphosis PT-OP-L Special Tests Start: 05/15/21 07:31 Freq: Status: Active Protocol: Document 05/15/21 10:38 [facility] (Rec: 05/15/21 12:15 [facility] [id number]) Special Tests Lumbar Spine Special Tests Slump Test Results neg B Straight Leg Raise Test Results neg b PT-OP-M Strength Start: 05/15/21 07:31 Freq: Status: Active Protocol: Document 05/15/21 10:38 [facility] (Rec: 05/15/21 12:15 [facility] [id number]) Hip Strength Hip Manual Muscle Testing Left Flexion (L2) 3+ Fair+ Abduction 3 Fair External Rotation 3+ Fair+ Internal Rotation 3+ Fair+ Right Flexion (L2) 3+ Fair+ Abduction 3 Fair External Rotation 3+ Fair+ Internal Rotation 3+ Fair+ Knee Strength Knee Manual Muscle Testing Right Flexion (S2) 4- Good- Extension (L3) 4- Good- Comments pain in SI w/ext Left Flexion (S2) 4- Good- Extension (L3) 4+ Good+ Ankle/Foot Strength Ankle and Foot Manual Muscle Testing Right Dorsiflexion (L4) 3+ Fair+ Plantarflexion (S1) 3+ Fair+ Left Dorsiflexion (L4) 3+ Fair+ Plantarflexion (S1) 3+ Fair+ Comments painPF PT-OP-Q Treatments Start: 05/15/21 07:31 Freq: Status: Active Protocol: Document 06/09/21 09:06 [facility] (Rec: 06/09/21 10:04 [facility] [id number]) Cardio Equipment Recumbent Stepper (Sci-Fit) Duration (Minutes) 10 Resistance 1 Seat Position 12 Other verbal cues for LE alignment, core activation, push thru entire foot Manual Therapy Treatment Soft Tissue Mobilization iliopsoas Body Location right Mobilization Type Sustained Pressure Intensity/Depth Moderate Body Position Sidelying glutes Body Location R glutes lat & inf Mobilization Type Strumming,Sustained Pressure Intensity/Depth Moderate Body Position Sidelying lateral quads Mobilization Type Myofascial Release,Strumming Intensity/Depth Moderate Body Position Hooklying IT band Body Location TFL & ITB Mobilization Type Rolling,Strumming Intensity/Depth Moderate Body Position Sidelying Comments post border right piriformis Body Location piriformis Mobilization Type Myofascial Release,Sustained Pressure,Trigger Point Release Intensity/Depth Moderate Body Position left sidelying Comments lateral sacral border Self-Care/Home Management Treatment Education Patient Education Home Exercise Program,Pain Management,Safety Other Education in 2 days start alternating ice and heat, and do gentle groin stretching. Use hydraulic lift at pool to enter and exit. PT-OP-R Modalities Start: 05/15/21 07:31 Freq: Status: Active Protocol: Document 06/09/21 09:06 [facility] (Rec: 06/09/21 10:04 [facility] [id number]) Hot Pack/Cold Pack Treatment Cold Pack Location right LB and right IT band/hip , right groin Patient Position Sidelying Treatment Duration (minutes) 10 PT-OP-T Assessment and Plan Start: 05/15/21 07:31 Freq: Status: Active Protocol: Document 06/09/21 09:06 [facility] (Rec: 06/09/21 10:04 [facility] [id number]) Physical Therapy Assessment Goals stability Short Term Goal (STG) Pt will be able to safely ascend and descend a curb in order to be safe when in the community. STG Duration 07/06/21 Detention Goal (LTG) Pt will feel comfortable navigating community with her . LTG Duration 08/15/21 pain Detention Goal (LTG) Pt will report SIJ, coccyx and R hip pain no greater than 2/ 10 on any given day for at least 2 week.s LTG Duration 08/15/21 strength Short Term Goal (STG) pt will be indep w/HEP for core stability, hip stability, and balance. STG Duration 06/25/21 Detention Goal (LTG) Pt will score at least 4/5 on all LE MMT to show improved strenght to improve pt mobility. LTG Duration 08/15/21 balance Impairment 35/56 Short Term Goal (STG) Pt will improve ORDOÑEZ balance score to at least 45 to show dec fall risk indoor STG Duration 06/30/21 Sieve Maker Goal (LTG) Pt will improve ORDOÑEZ balance score to at least 50 to show dec fall risk in outdoors/ community. LTG Duration 08/15/21 One Impairment Unable to sit for more than one hour due to hip pain, and has difficulty sleeping and moving in bed due to pain in low back and buttock(wakes every 2 hours) Short Term Goal (STG) Pt will be able to do sit to stand from any surfaces w/o inc R hip or back pain. STG Duration 07/05/21 Detention Goal (LTG) pt will be able to sleep and lay down w/o LB/SIJ pain or R hip pain. LTG Duration 08/15/21 Assessment Summary Assessment Patient appears to have groin strain, good tolerance for gentle Sci-Fit, has done isometric ex at home. Instructed to begin alternating ice and heat in a couple days and initiate gentle stretching. Use hydraulic lift to enter and exit pool. Continued with soft tissue work to hip and pelvis. Physical Therapy Plan Frequency and Duration Frequency of Treatment 1-2x/week Duration of Treatment 3 months Plan of Care Start Date 05/15/21 Plan of Care End Date 08/15/21 Therapeutic Interventions Therapeutic Interventions Aquatic Therapy,Balance Training,Gait Training,Home Exercise Program,Joint Mobilizations,Manual Therapy, Neuromuscular Re-education, Orthotic/Prosthetic Management ,Patient/Caregiver Education, Self-Care/Home Management,Soft Tissue Mobilization,Taping, Therapeutic Activities, Therapeutic Exercises Modalities Cold Pack/Ice Massage,Electric Stimulation,Hot Packs, Infrared Therapy,Ultrasound Next Visit Focus/Plan Next Note Type Treatment Note Next Visit Plan Therapeutic exercise progression as tolerated, manual therapy, and modalities as indicated for pain management and healing.
--- NOTE | 2021-06-16 10:34 | PT.OTN ---
Current Diagnoses Sacroiliitis, not elsewhere classified (06/16/21) Other abnormalities of gait and mobility (06/16/21) Abnormal posture (06/16/21) Weakness (06/16/21) Other reduced mobility (06/16/21) Physical Therapy Treatment Note PT-OP-A Visit Information Start: 05/15/21 07:31 Freq: Status: Active Protocol: Document 06/16/21 09:50 [facility] (Rec: 06/16/21 10:34 [facility] [id number]) Out-Patient Physical Therapy Visit Information Visit Information Visit Type Treatment Note Visit Note 09/14 Visit Start Time 09:49 Visit Stop Time 10:40 Total Visit Minutes 51 Visit Number 7 Number of PRESSER AUTOMATIC Visits 0 PT-OP-B Current Condition Start: 05/15/21 07:31 Freq: Status: Active Protocol: Document 05/15/21 10:38 [facility] (Rec: 05/15/21 12:15 [facility] [id number]) Current Condition History of Current Condition Onset Date about 1 month ago Current Complaints SIJ pain and R hip pain & imbalance History of Current Condition Pt has history of chronic LBP and B foot pain w/history of falls and imbalance with multiple bouts of PT that have been successful at reducing pain in the past. Pt reports being sick the entire month of Mar w/juliane. She started in Jan having costrocontritis. She was feeling better w/SI pain after PT last Jan. She had a hip injection in R hip in Feb. She had chest CT, EKG and it was negative. MD would not inject her d/t pt not getting CT of sternum as MD kept changing what was needed for injection. Pt hasn't seen pmo business analyst for 6 months. She had the wrong day and yesterday got 3/[address] to [place] and realized it was wrong appt time. She is unsure when she will see her. She took her first dose of forest since she was off them while sick. She was taking methotrexate all along. She is still having sinus issues since being sick and is seeing allergy MD in [place] at end of month. She is not stable at all she feels and had difficulty w/on/off curbs. Pt reports R foot is so painful unless she has her shoes on. This just starteda bout a week ago so she needs to schedule to go backt o foot MD. reports she feels really unstable at night. Pt reports she is having hip issues again . Pt reports SIJ pain started about 3 weeks ago. It came on suddnely w/o any underlying causes. Denies any recent falls. Pt reports pain is not killing her but it very irritating and yesterday coccyx was killing me. She started Medaterrain diet she started and is noticing she is gaining weight and it didn't help w/pain. Has to sleep on heating pad at night. Once she gets up and is moving, it is better. Pt reports she no longer gardens. She feels like she will fall fwd if leaning fwd too much to garden and did fall last summer. Prior Treatments and Tests Mult bouts PT in past w/ improved pain Thoracic MRI 04/28: IMPRESSION: 1. Probable synovial cyst resulting in stob-pi-dquijpdy canal stenosis at C7-T1 can be further evaluated with MRI cervical spine with and without contrast 2. Thoracic dextroscoliosis and multilevel degenerative changes Lumbar CT 09/10/20: MPRESSION: Multilevel degenerative disc disease and arthropathy results in varying degrees of central and foraminal stenosis, including severe central stenosis at L3- 4. L4-5 and L5-S1 discectomy and fusion with posterior kimi and screw instrumentation in position. No hardware failure or loosening. Decompressive L4 and L5 laminectomies Treatment Goals Patient/Caregiver Goals be able to get up/down from a curb, feel more stable walking , improve pain and improve ability to sleep & sit down Personal Factors Other Personal Factors That May Effect MH: rheumatoid arthritis, GERD Therapy/Recovery , PE, depression, bilateral ankle fusion, left shoulder replacement 2018, right TKA , spinal fusion 10/24, Charcot foot gloria PT-OP-C Subjective Start: 05/15/21 07:31 Freq: Status: Active Protocol: Document 06/16/21 09:50 [facility] (Rec: 06/16/21 10:34 [facility] [id number]) OP-PT Subjective Patient Comments Patient Comments Pt reports she can't use R leg she cannot go up/down stairs on that leg. She saw pmo business analyst wed. She didn't want to change anything else because [facility] hasn't been on Forest for 3 months. She is weaning off prednisone. She was unsure what is going on w/ sternum. She saw her heel burnisher on Wednesday and he also wnats pt to be on Forest for 3 months before she does another injection. Pt reports she went to the pool yesterday and did nto feel like she overdid but her R LE and back was sore. Ortho surgeon suggested she tries to wear her ankle brace and do the balance. PT-OP-D Balance Start: 05/15/21 07:31 Freq: Status: Active Protocol: Document 05/15/21 10:38 [facility] (Rec: 05/15/21 12:15 [facility] [id number]) Balance Tests Ordoñez Balance Test Ordoñez Balance Test Score 35 Ordoñez Impairment Rating 20 to 39% Impaired (Score 34- 44) PT-OP-F Manual Assessment Start: 05/15/21 07:31 Freq: Status: Active Protocol: Document 05/15/21 10:38 [facility] (Rec: 05/15/21 12:15 [facility] [id number]) Manual Assessments Soft Tissue Assessment Soft Tissue Mobility Assessment B glute, R>L QL, ES B, R iliacus tenderness PT-OP-G Mobility & Gait Start: 05/15/21 07:31 Freq: Status: Active Protocol: Document 05/15/21 10:38 [facility] (Rec: 05/15/21 12:15 [facility] [id number]) OP Mobility Evaluation Bed Mobility Rolling able to roll w/pain Supine to and from Sit pain OP Gait Assessment Comments Gait Comments Very stiff and appears unsteady, lat shift w/WB, dec push off, dec stride length B PT-OP-J Posture/Palpation/Skin Start: 05/15/21 07:31 Freq: Status: Active Protocol: Document 05/15/21 10:38 [facility] (Rec: 05/15/21 12:15 [facility] [id number]) Posture Evaluation Comments Posture Comments fwd flex w/inch kyphosis PT-OP-L Special Tests Start: 05/15/21 07:31 Freq: Status: Active Protocol: Document 05/15/21 10:38 [facility] (Rec: 05/15/21 12:15 [facility] [id number]) Special Tests Lumbar Spine Special Tests Slump Test Results neg B Straight Leg Raise Test Results neg b PT-OP-M Strength Start: 05/15/21 07:31 Freq: Status: Active Protocol: Document 05/15/21 10:38 [facility] (Rec: 05/15/21 12:15 [facility] [id number]) Hip Strength Hip Manual Muscle Testing Left Flexion (L2) 3+ Fair+ Abduction 3 Fair External Rotation 3+ Fair+ Internal Rotation 3+ Fair+ Right Flexion (L2) 3+ Fair+ Abduction 3 Fair External Rotation 3+ Fair+ Internal Rotation 3+ Fair+ Knee Strength Knee Manual Muscle Testing Right Flexion (S2) 4- Good- Extension (L3) 4- Good- Comments pain in SI w/ext Left Flexion (S2) 4- Good- Extension (L3) 4+ Good+ Ankle/Foot Strength Ankle and Foot Manual Muscle Testing Right Dorsiflexion (L4) 3+ Fair+ Plantarflexion (S1) 3+ Fair+ Left Dorsiflexion (L4) 3+ Fair+ Plantarflexion (S1) 3+ Fair+ Comments painPF PT-OP-Q Treatments Start: 05/15/21 07:31 Freq: Status: Active Protocol: Document 06/16/21 09:50 [facility] (Rec: 06/16/21 10:34 [facility] [id number]) Cardio Equipment Recumbent Stepper (Sci-Fit) Duration (Minutes) 8 Resistance 1 Seat Position 11 Other verbal cues for LE alignment, core activation, push thru entire foot Therapeutic Exercises Supine Exercises core Supine Exercise Name BKFO Side bilateral Reps/Minutes 8 Sidelying Exercises open book Side bilateral Reps/Minutes 5 Standing Exercises stretch Standing Exercise Name 1 pec in doorway 2. pec in corner Side bilateral Reps/Minutes 30 sec Manual Therapy Treatment Soft Tissue Mobilization adductors Body Location R Mobilization Type Rolling,Strumming Intensity/Depth Moderate Body Position Hooklying Comments w/gentle hip ER/IR 3 Body Location R circumfrential thigh MFR w/ hip IR/ER Body Position Hooklying PT-OP-R Modalities Start: 05/15/21 07:31 Freq: Status: Active Protocol: Document 06/16/21 09:50 [facility] (Rec: 06/16/21 10:34 [facility] [id number]) Hot Pack/Cold Pack Treatment Cold Pack Location right LB and right hip/ right groin Patient Position Hooklying Treatment Duration (minutes) 10 PT-OP-T Assessment and Plan Start: 05/15/21 07:31 Freq: Status: Active Protocol: Document 06/16/21 09:50 [facility] (Rec: 06/16/21 10:34 [facility] [id number]) Physical Therapy Assessment Goals stability Short Term Goal (STG) Pt will be able to safely ascend and descend a curb in order to be safe when in the community. STG Duration 07/06/21 Long-Term Goal (LTG) Pt will feel comfortable navigating community with her . LTG Duration 08/15/21 pain Long-Term Goal (LTG) Pt will report SIJ, coccyx and R hip pain no greater than 2/ 10 on any given day for at least 2 week.s LTG Duration 08/15/21 strength Short Term Goal (STG) pt will be indep w/HEP for core stability, hip stability, and balance. STG Duration 06/25/21 Long-Term Goal (LTG) Pt will score at least 4/5 on all LE MMT to show improved strenght to improve pt mobility. LTG Duration 08/15/21 balance Impairment 35/56 Short Term Goal (STG) Pt will improve ORDOÑEZ balance score to at least 45 to show dec fall risk indoor STG Duration 06/30/21 Paratransit Driver Goal (LTG) Pt will improve ORDOÑEZ balance score to at least 50 to show dec fall risk in outdoors/ community. LTG Duration 08/15/21 One Impairment Unable to sit for more than one hour due to hip pain, and has difficulty sleeping and moving in bed due to pain in low back and buttock(wakes every 2 hours) Short Term Goal (STG) Pt will be able to do sit to stand from any surfaces w/o inc R hip or back pain. STG Duration 07/05/21 Long-Term Goal (LTG) pt will be able to sleep and lay down w/o LB/SIJ pain or R hip pain. LTG Duration 08/15/21 Assessment Summary Assessment Pt was able to tolerate exercises today w/o inc pain when cued for forma nd posture . She has significant restriction in RLE that improved w/manual with gradual improving abiltiy to ER in hooklying and release of Add. Physical Therapy Plan Frequency and Duration Frequency of Treatment 1-2x/week Duration of Treatment 3 months Plan of Care Start Date 05/15/21 Plan of Care End Date 08/15/21 Next Visit Focus/Plan Next Note Type Treatment Note Next Visit Plan cont to progress exercises as pt tolerates and advance core and try balacne w/brace
--- NOTE | 2021-06-19 09:46 | PT.OTN ---
Current Diagnoses Sacroiliitis, not elsewhere classified (06/19/21) Other abnormalities of gait and mobility (06/19/21) Abnormal posture (06/19/21) Weakness (06/19/21) Other reduced mobility (06/19/21) Physical Therapy Treatment Note PT-OP-A Visit Information Start: 05/15/21 07:31 Freq: Status: Active Protocol: Document 06/19/21 08:11 [facility] (Rec: 06/19/21 09:46 [facility] [id number]) Out-Patient Physical Therapy Visit Information Visit Information Visit Type Treatment Note Visit Note 10/15 Visit Start Time 09:01 Visit Stop Time 09:51 Total Visit Minutes 50 Visit Number 8 Number of AIR CONDITIONING INSTALLER SUPERVISOR Visits 0 PT-OP-B Current Condition Start: 05/15/21 07:31 Freq: Status: Active Protocol: Document 05/15/21 10:38 [facility] (Rec: 05/15/21 12:15 [facility] [id number]) Current Condition History of Current Condition Onset Date about 1 month ago Current Complaints SIJ pain and R hip pain & imbalance History of Current Condition Pt has history of chronic LBP and B foot pain w/history of falls and imbalance with multiple bouts of PT that have been successful at reducing pain in the past. Pt reports being sick the entire month of Mar w/juliane. She started in Jan having costrocontritis. She was feeling better w/SI pain after PT last Jan. She had a hip injection in R hip in Feb. She had chest CT, EKG and it was negative. MD would not inject her d/t pt not getting CT of sternum as MD kept changing what was needed for injection. Pt hasn't seen finish mender for 6 months. She had the wrong day and yesterday got 3/[address] to [place] and realized it was wrong appt time. She is unsure when she will see her. She took her first dose of forest since she was off them while sick. She was taking methotrexate all along. She is still having sinus issues since being sick and is seeing allergy MD in [place] at end of month. She is not stable at all she feels and had difficulty w/on/off curbs. Pt reports R foot is so painful unless she has her shoes on. This just starteda bout a week ago so she needs to schedule to go backt o foot MD. reports she feels really unstable at night. Pt reports she is having hip issues again . Pt reports SIJ pain started about 3 weeks ago. It came on suddnely w/o any underlying causes. Denies any recent falls. Pt reports pain is not killing her but it very irritating and yesterday coccyx was killing me. She started Medaterrain diet she started and is noticing she is gaining weight and it didn't help w/pain. Has to sleep on heating pad at night. Once she gets up and is moving, it is better. Pt reports she no longer gardens. She feels like she will fall fwd if leaning fwd too much to garden and did fall last summer. Prior Treatments and Tests Mult bouts PT in past w/ improved pain Thoracic MRI 04/28: IMPRESSION: 1. Probable synovial cyst resulting in zbjp-lm-itwsnyxn canal stenosis at C7-T1 can be further evaluated with MRI cervical spine with and without contrast 2. Thoracic dextroscoliosis and multilevel degenerative changes Lumbar CT 09/10/20: MPRESSION: Multilevel degenerative disc disease and arthropathy results in varying degrees of central and foraminal stenosis, including severe central stenosis at L3- 4. L4-5 and L5-S1 discectomy and fusion with posterior kimi and screw instrumentation in position. No hardware failure or loosening. Decompressive L4 and L5 laminectomies Treatment Goals Patient/Caregiver Goals be able to get up/down from a curb, feel more stable walking , improve pain and improve ability to sleep & sit down Personal Factors Other Personal Factors That May Effect MH: rheumatoid arthritis, GERD Therapy/Recovery , PE, depression, bilateral ankle fusion, left shoulder replacement 2018, right TKA , spinal fusion 10/24, Charcot foot golria PT-OP-C Subjective Start: 05/15/21 07:31 Freq: Status: Active Protocol: Document 06/19/21 08:11 [facility] (Rec: 06/19/21 09:46 [facility] [id number]) OP-PT Subjective Patient Comments Patient Comments Pt reprots she had an awful night and had to take a percocet at 4 am and got a few hours of sleep. She reports pubic bone area is a little better.She can put a little more weight when going up stairs. PT-OP-D Balance Start: 05/15/21 07:31 Freq: Status: Active Protocol: Document 05/15/21 10:38 [facility] (Rec: 05/15/21 12:15 [facility] [id number]) Balance Tests Ordoñez Balance Test Ordoñez Balance Test Score 35 Ordoñez Impairment Rating 20 to 39% Impaired (Score 34- 44) PT-OP-F Manual Assessment Start: 05/15/21 07:31 Freq: Status: Active Protocol: Document 05/15/21 10:38 [facility] (Rec: 05/15/21 12:15 [facility] [id number]) Manual Assessments Soft Tissue Assessment Soft Tissue Mobility Assessment B glute, R>L QL, ES B, R iliacus tenderness PT-OP-G Mobility & Gait Start: 05/15/21 07:31 Freq: Status: Active Protocol: Document 05/15/21 10:38 [facility] (Rec: 05/15/21 12:15 [facility] [id number]) OP Mobility Evaluation Bed Mobility Rolling able to roll w/pain Supine to and from Sit pain OP Gait Assessment Comments Gait Comments Very stiff and appears unsteady, lat shift w/WB, dec push off, dec stride length B PT-OP-J Posture/Palpation/Skin Start: 05/15/21 07:31 Freq: Status: Active Protocol: Document 05/15/21 10:38 [facility] (Rec: 05/15/21 12:15 [facility] [id number]) Posture Evaluation Comments Posture Comments fwd flex w/inch kyphosis PT-OP-L Special Tests Start: 05/15/21 07:31 Freq: Status: Active Protocol: Document 05/15/21 10:38 [facility] (Rec: 05/15/21 12:15 [facility] [id number]) Special Tests Lumbar Spine Special Tests Slump Test Results neg B Straight Leg Raise Test Results neg b PT-OP-M Strength Start: 05/15/21 07:31 Freq: Status: Active Protocol: Document 05/15/21 10:38 [facility] (Rec: 05/15/21 12:15 [facility] [id number]) Hip Strength Hip Manual Muscle Testing Left Flexion (L2) 3+ Fair+ Abduction 3 Fair External Rotation 3+ Fair+ Internal Rotation 3+ Fair+ Right Flexion (L2) 3+ Fair+ Abduction 3 Fair External Rotation 3+ Fair+ Internal Rotation 3+ Fair+ Knee Strength Knee Manual Muscle Testing Right Flexion (S2) 4- Good- Extension (L3) 4- Good- Comments pain in SI w/ext Left Flexion (S2) 4- Good- Extension (L3) 4+ Good+ Ankle/Foot Strength Ankle and Foot Manual Muscle Testing Right Dorsiflexion (L4) 3+ Fair+ Plantarflexion (S1) 3+ Fair+ Left Dorsiflexion (L4) 3+ Fair+ Plantarflexion (S1) 3+ Fair+ Comments painPF PT-OP-Q Treatments Start: 05/15/21 07:31 Freq: Status: Active Protocol: Document 06/19/21 08:11 [facility] (Rec: 06/19/21 09:46 [facility] [id number]) Cardio Equipment Recumbent Stepper (Sci-Fit) Duration (Minutes) 8 Resistance 1 Seat Position 11 Other verbal cues for LE alignment, core activation, push thru entire foot Therapeutic Exercises Sidelying Exercises open book Side bilateral Reps/Minutes 10 Standing Exercises stretch Standing Exercise Name 1 pec in doorway 2. pec in corner Side bilateral Reps/Minutes 30 sec Manual Therapy Treatment Soft Tissue Mobilization glutes Body Location R glutes lat & sup Mobilization Type Strumming,Sustained Pressure Intensity/Depth Moderate Body Position Sidelying right piriformis Body Location piriformis Mobilization Type Myofascial Release,Sustained Pressure,Trigger Point Release Intensity/Depth Moderate Body Position left sidelying Comments lateral sacral border 2 Body Location R QL Mobilization Type Rolling,Strumming,Sustained Pressure Intensity/Depth Moderate Body Position Sidelying PT-OP-R Modalities Start: 05/15/21 07:31 Freq: Status: Active Protocol: Document 06/19/21 08:11 [facility] (Rec: 06/19/21 09:46 [facility] [id number]) Hot Pack/Cold Pack Treatment Cold Pack Location right LB and right hip/ right groin Patient Position Hooklying Treatment Duration (minutes) 10 PT-OP-T Assessment and Plan Start: 05/15/21 07:31 Freq: Status: Active Protocol: Document 06/19/21 08:11 [facility] (Rec: 06/19/21 09:46 [facility] [id number]) Physical Therapy Assessment Goals stability Short Term Goal (STG) Pt will be able to safely ascend and descend a curb in order to be safe when in the community. STG Duration 07/06/21 Long-Term Goal (LTG) Pt will feel comfortable navigating community with her . LTG Duration 08/15/21 pain Long-Term Goal (LTG) Pt will report SIJ, coccyx and R hip pain no greater than 2/ 10 on any given day for at least 2 week.s LTG Duration 08/15/21 strength Short Term Goal (STG) pt will be indep w/HEP for core stability, hip stability, and balance. STG Duration 06/25/21 Guide Cruise Goal (LTG) Pt will score at least 4/5 on all LE MMT to show improved strenght to improve pt mobility. LTG Duration 08/15/21 balance Impairment 35/56 Short Term Goal (STG) Pt will improve ORDOÑEZ balance score to at least 45 to show dec fall risk indoor STG Duration 06/30/21 Long-Term Goal (LTG) Pt will improve ORDOÑEZ balance score to at least 50 to show dec fall risk in outdoors/ community. LTG Duration 08/15/21 One Impairment Unable to sit for more than one hour due to hip pain, and has difficulty sleeping and moving in bed due to pain in low back and buttock(wakes every 2 hours) Short Term Goal (STG) Pt will be able to do sit to stand from any surfaces w/o inc R hip or back pain. STG Duration 07/05/21 Long-Term Goal (LTG) pt will be able to sleep and lay down w/o LB/SIJ pain or R hip pain. LTG Duration 08/15/21 Assessment Summary Assessment Pt did require cueing w/all exercises today and handoutw as given for home. Edu to use tennis ball in buttocks as she needs. Pt reports relief w/ manual. Physical Therapy Plan Frequency and Duration Frequency of Treatment 1-2x/week Duration of Treatment 3 months Plan of Care Start Date 05/15/21 Plan of Care End Date 08/15/21 Next Visit Focus/Plan Next Note Type Treatment Note Next Visit Plan cont to progress exercises as pt tolerates and advance core and try balacne w/brace
--- NOTE | 2021-06-23 09:49 | PT.OTN ---
Current Diagnoses Sacroiliitis, not elsewhere classified (06/23/21) Other abnormalities of gait and mobility (06/23/21) Abnormal posture (06/23/21) Weakness (06/23/21) Other reduced mobility (06/23/21) Physical Therapy Treatment Note PT-OP-A Visit Information Start: 05/15/21 07:31 Freq: Status: Active Protocol: Document 06/23/21 09:05 [facility] (Rec: 06/23/21 09:49 [facility] [id number]) Out-Patient Physical Therapy Visit Information Visit Information Visit Type Treatment Note Visit Note 11/15 Visit Start Time 09:02 Visit Stop Time 09:55 Total Visit Minutes 53 Visit Number 9 Number of JOINT SEALER Visits 0 PT-OP-B Current Condition Start: 05/15/21 07:31 Freq: Status: Active Protocol: Document 05/15/21 10:38 [facility] (Rec: 05/15/21 12:15 [facility] [id number]) Current Condition History of Current Condition Onset Date about 1 month ago Current Complaints SIJ pain and R hip pain & imbalance History of Current Condition Pt has history of chronic LBP and B foot pain w/history of falls and imbalance with multiple bouts of PT that have been successful at reducing pain in the past. Pt reports being sick the entire month of Mar w/juliane. She started in Jan having costrocontritis. She was feeling better w/SI pain after PT last Jan. She had a hip injection in R hip in Feb. She had chest CT, EKG and it was negative. MD would not inject her d/t pt not getting CT of sternum as MD kept changing what was needed for injection. Pt hasn't seen panel beater for 6 months. She had the wrong day and yesterday got 3/[address] to [place] and realized it was wrong appt time. She is unsure when she will see her. She took her first dose of forest since she was off them while sick. She was taking methotrexate all along. She is still having sinus issues since being sick and is seeing allergy MD in [place] at end of month. She is not stable at all she feels and had difficulty w/on/off curbs. Pt reports R foot is so painful unless she has her shoes on. This just starteda bout a week ago so she needs to schedule to go backt o foot MD. reports she feels really unstable at night. Pt reports she is having hip issues again . Pt reports SIJ pain started about 3 weeks ago. It came on suddnely w/o any underlying causes. Denies any recent falls. Pt reports pain is not killing her but it very irritating and yesterday coccyx was killing me. She started Medaterrain diet she started and is noticing she is gaining weight and it didn't help w/pain. Has to sleep on heating pad at night. Once she gets up and is moving, it is better. Pt reports she no longer gardens. She feels like she will fall fwd if leaning fwd too much to garden and did fall last summer. Prior Treatments and Tests Mult bouts PT in past w/ improved pain Thoracic MRI 04/28: IMPRESSION: 1. Probable synovial cyst resulting in alpo-hp-bxxmilhn canal stenosis at C7-T1 can be further evaluated with MRI cervical spine with and without contrast 2. Thoracic dextroscoliosis and multilevel degenerative changes Lumbar CT 09/10/20: MPRESSION: Multilevel degenerative disc disease and arthropathy results in varying degrees of central and foraminal stenosis, including severe central stenosis at L3- 4. L4-5 and L5-S1 discectomy and fusion with posterior kimi and screw instrumentation in position. No hardware failure or loosening. Decompressive L4 and L5 laminectomies Treatment Goals Patient/Caregiver Goals be able to get up/down from a curb, feel more stable walking , improve pain and improve ability to sleep & sit down Personal Factors Other Personal Factors That May Effect MH: rheumatoid arthritis, GERD Therapy/Recovery , PE, depression, bilateral ankle fusion, left shoulder replacement 2018, right TKA , spinal fusion 10/24, Charcot foot gloria PT-OP-C Subjective Start: 05/15/21 07:31 Freq: Status: Active Protocol: Document 06/23/21 09:05 [facility] (Rec: 06/23/21 09:49 [facility] [id number]) OP-PT Subjective Patient Comments Patient Comments Pt switched back to [place] because her other new balance were too stiff on the bottom and they are much better. PT-OP-D Balance Start: 05/15/21 07:31 Freq: Status: Active Protocol: Document 05/15/21 10:38 [facility] (Rec: 05/15/21 12:15 [facility] [id number]) Balance Tests Ordoñez Balance Test Ordoñez Balance Test Score 35 Ordoñez Impairment Rating 20 to 39% Impaired (Score 34- 44) PT-OP-F Manual Assessment Start: 05/15/21 07:31 Freq: Status: Active Protocol: Document 05/15/21 10:38 [facility] (Rec: 05/15/21 12:15 [facility] [id number]) Manual Assessments Soft Tissue Assessment Soft Tissue Mobility Assessment B glute, R>L QL, ES B, R iliacus tenderness PT-OP-G Mobility & Gait Start: 05/15/21 07:31 Freq: Status: Active Protocol: Document 05/15/21 10:38 [facility] (Rec: 05/15/21 12:15 [facility] [id number]) OP Mobility Evaluation Bed Mobility Rolling able to roll w/pain Supine to and from Sit pain OP Gait Assessment Comments Gait Comments Very stiff and appears unsteady, lat shift w/WB, dec push off, dec stride length B PT-OP-J Posture/Palpation/Skin Start: 05/15/21 07:31 Freq: Status: Active Protocol: Document 05/15/21 10:38 [facility] (Rec: 05/15/21 12:15 [facility] [id number]) Posture Evaluation Comments Posture Comments fwd flex w/inch kyphosis PT-OP-L Special Tests Start: 05/15/21 07:31 Freq: Status: Active Protocol: Document 05/15/21 10:38 [facility] (Rec: 05/15/21 12:15 [facility] [id number]) Special Tests Lumbar Spine Special Tests Slump Test Results neg B Straight Leg Raise Test Results neg b PT-OP-M Strength Start: 05/15/21 07:31 Freq: Status: Active Protocol: Document 05/15/21 10:38 [facility] (Rec: 05/15/21 12:15 [facility] [id number]) Hip Strength Hip Manual Muscle Testing Left Flexion (L2) 3+ Fair+ Abduction 3 Fair External Rotation 3+ Fair+ Internal Rotation 3+ Fair+ Right Flexion (L2) 3+ Fair+ Abduction 3 Fair External Rotation 3+ Fair+ Internal Rotation 3+ Fair+ Knee Strength Knee Manual Muscle Testing Right Flexion (S2) 4- Good- Extension (L3) 4- Good- Comments pain in SI w/ext Left Flexion (S2) 4- Good- Extension (L3) 4+ Good+ Ankle/Foot Strength Ankle and Foot Manual Muscle Testing Right Dorsiflexion (L4) 3+ Fair+ Plantarflexion (S1) 3+ Fair+ Left Dorsiflexion (L4) 3+ Fair+ Plantarflexion (S1) 3+ Fair+ Comments painPF PT-OP-Q Treatments Start: 05/15/21 07:31 Freq: Status: Active Protocol: Document 06/23/21 09:05 [facility] (Rec: 06/23/21 09:49 [facility] [id number]) Therapeutic Exercises Sidelying Exercises clamshell Side bilateral Reps/Minutes 10 Comments cues for comfortable range reverse clam Side bilateral Reps/Minutes 10x Comments cues for slow and controlled Manual Therapy Treatment Soft Tissue Mobilization right lumbar paraspinals Body Location gloria paraspinals & right QL into sacrum Mobilization Type Myofascial Release,Rolling, Other Intensity/Depth Moderate Body Position Sidelying Comments w/gentle passive post dep/ant elevation Neuro Re-Education Treatment Balance Activities tandem stand Details B trials Comments w/1 finger on rail foam stand Details head turns & EC trials Surface blue foam Comments WBOS, NBOs, Staggered stance Self-Care/Home Management Treatment Education Other Education set up of ankle brace and EDu how it is supposed to be used PT-OP-R Modalities Start: 05/15/21 07:31 Freq: Status: Active Protocol: Document 06/23/21 09:05 [facility] (Rec: 06/23/21 09:49 [facility] [id number]) Hot Pack/Cold Pack Treatment Cold Pack Location right LB and right hip/ right groin Patient Position Hooklying Treatment Duration (minutes) 10 PT-OP-T Assessment and Plan Start: 05/15/21 07:31 Freq: Status: Active Protocol: Document 06/23/21 09:05 [facility] (Rec: 06/23/21 09:49 [facility] [id number]) Physical Therapy Assessment Goals stability Short Term Goal (STG) Pt will be able to safely ascend and descend a curb in order to be safe when in the community. STG Duration 07/06/21 Manager Culinary Goal (LTG) Pt will feel comfortable navigating community with her . LTG Duration 08/15/21 pain Manager Culinary Goal (LTG) Pt will report SIJ, coccyx and R hip pain no greater than 2/ 10 on any given day for at least 2 week.s LTG Duration 08/15/21 strength Short Term Goal (STG) pt will be indep w/HEP for core stability, hip stability, and balance. STG Duration 06/25/21 Senior Care Goal (LTG) Pt will score at least 4/5 on all LE MMT to show improved strenght to improve pt mobility. LTG Duration 08/15/21 balance Impairment 35/56 Short Term Goal (STG) Pt will improve ORDOÑEZ balance score to at least 45 to show dec fall risk indoor STG Duration 06/30/21 Senior Care Goal (LTG) Pt will improve ORDOÑEZ balance score to at least 50 to show dec fall risk in outdoors/ community. LTG Duration 08/15/21 One Impairment Unable to sit for more than one hour due to hip pain, and has difficulty sleeping and moving in bed due to pain in low back and buttock(wakes every 2 hours) Short Term Goal (STG) Pt will be able to do sit to stand from any surfaces w/o inc R hip or back pain. STG Duration 07/05/21 Manager Culinary Goal (LTG) pt will be able to sleep and lay down w/o LB/SIJ pain or R hip pain. LTG Duration 08/15/21 Assessment Summary Assessment Pt did well with balance exercises but they were stopped at point pt noted pain in R ankle and pt educated no EC activities at home and no SLS at home and to always stop if ankle hurts Physical Therapy Plan Frequency and Duration Frequency of Treatment 1-2x/week Duration of Treatment 3 months Plan of Care Start Date 05/15/21 Plan of Care End Date 08/15/21 Next Visit Focus/Plan Next Note Type Treatment Note Next Visit Plan cont to progress exercises as pt tolerates and advance core and asess how balacne w/brace went
--- NOTE | 2021-06-26 12:04 | PT.OTN ---
Current Diagnoses Sacroiliitis, not elsewhere classified (06/26/21) Other abnormalities of gait and mobility (06/26/21) Abnormal posture (06/26/21) Weakness (06/26/21) Other reduced mobility (06/26/21) Physical Therapy Treatment Note PT-OP-A Visit Information Start: 05/15/21 07:31 Freq: Status: Active Protocol: Document 06/26/21 09:02 [facility] (Rec: 06/26/21 12:04 [facility] [id number]) Out-Patient Physical Therapy Visit Information Visit Information Visit Type Progress Note Visit Note 03/17 Visit Start Time 09:03 Visit Stop Time 09:58 Total Visit Minutes 55 Visit Number 10 Number of FERRY ENGINEER Visits 0 PT-OP-B Current Condition Start: 05/15/21 07:31 Freq: Status: Active Protocol: Document 05/15/21 10:38 [facility] (Rec: 05/15/21 12:15 [facility] [id number]) Current Condition History of Current Condition Onset Date about 1 month ago Current Complaints SIJ pain and R hip pain & imbalance History of Current Condition Pt has history of chronic LBP and B foot pain w/history of falls and imbalance with multiple bouts of PT that have been successful at reducing pain in the past. Pt reports being sick the entire month of Mar w/juliane. She started in Jan having costrocontritis. She was feeling better w/SI pain after PT last Jan. She had a hip injection in R hip in Feb. She had chest CT, EKG and it was negative. MD would not inject her d/t pt not getting CT of sternum as MD kept changing what was needed for injection. Pt hasn't seen car salesperson for 6 months. She had the wrong day and yesterday got 3/[address] to [place] and realized it was wrong appt time. She is unsure when she will see her. She took her first dose of forest since she was off them while sick. She was taking methotrexate all along. She is still having sinus issues since being sick and is seeing allergy MD in [place] at end of month. She is not stable at all she feels and had difficulty w/on/off curbs. Pt reports R foot is so painful unless she has her shoes on. This just starteda bout a week ago so she needs to schedule to go backt o foot MD. reports she feels really unstable at night. Pt reports she is having hip issues again . Pt reports SIJ pain started about 3 weeks ago. It came on suddnely w/o any underlying causes. Denies any recent falls. Pt reports pain is not killing her but it very irritating and yesterday coccyx was killing me. She started Medaterrain diet she started and is noticing she is gaining weight and it didn't help w/pain. Has to sleep on heating pad at night. Once she gets up and is moving, it is better. Pt reports she no longer gardens. She feels like she will fall fwd if leaning fwd too much to garden and did fall last summer. Prior Treatments and Tests Mult bouts PT in past w/ improved pain Thoracic MRI 04/28: IMPRESSION: 1. Probable synovial cyst resulting in emyg-jf-zskgsklw canal stenosis at C7-T1 can be further evaluated with MRI cervical spine with and without contrast 2. Thoracic dextroscoliosis and multilevel degenerative changes Lumbar CT 09/10/20: MPRESSION: Multilevel degenerative disc disease and arthropathy results in varying degrees of central and foraminal stenosis, including severe central stenosis at L3- 4. L4-5 and L5-S1 discectomy and fusion with posterior kimi and screw instrumentation in position. No hardware failure or loosening. Decompressive L4 and L5 laminectomies Treatment Goals Patient/Caregiver Goals be able to get up/down from a curb, feel more stable walking , improve pain and improve ability to sleep & sit down Personal Factors Other Personal Factors That May Effect MH: rheumatoid arthritis, GERD Therapy/Recovery , PE, depression, bilateral ankle fusion, left shoulder replacement 2018, right TKA , spinal fusion 10/24, Charcot foot gloria PT-OP-C Subjective Start: 05/15/21 07:31 Freq: Status: Active Protocol: Document 06/26/21 09:02 [facility] (Rec: 06/26/21 12:04 [facility] [id number]) OP-PT Subjective Patient Comments Patient Comments Pt is frustrated by rehab medicine MD because he told him he needed to go down to [place] to see Rehab medicine MD for chest injections. WIll do SI injections. Pt felt fine after balance PT-OP-D Balance Start: 05/15/21 07:31 Freq: Status: Active Protocol: Document 06/26/21 09:02 [facility] (Rec: 06/26/21 12:04 [facility] [id number]) Balance Tests Ordoñez Balance Test Ordoñez Balance Test Score 40 PT-OP-F Manual Assessment Start: 05/15/21 07:31 Freq: Status: Active Protocol: Document 05/15/21 10:38 [facility] (Rec: 05/15/21 12:15 [facility] [id number]) Manual Assessments Soft Tissue Assessment Soft Tissue Mobility Assessment B glute, R>L QL, ES B, R iliacus tenderness PT-OP-G Mobility & Gait Start: 05/15/21 07:31 Freq: Status: Active Protocol: Document 05/15/21 10:38 [facility] (Rec: 05/15/21 12:15 [facility] [id number]) OP Mobility Evaluation Bed Mobility Rolling able to roll w/pain Supine to and from Sit pain OP Gait Assessment Comments Gait Comments Very stiff and appears unsteady, lat shift w/WB, dec push off, dec stride length B PT-OP-J Posture/Palpation/Skin Start: 05/15/21 07:31 Freq: Status: Active Protocol: Document 05/15/21 10:38 [facility] (Rec: 05/15/21 12:15 [facility] [id number]) Posture Evaluation Comments Posture Comments fwd flex w/inch kyphosis PT-OP-L Special Tests Start: 05/15/21 07:31 Freq: Status: Active Protocol: Document 05/15/21 10:38 [facility] (Rec: 05/15/21 12:15 [facility] [id number]) Special Tests Lumbar Spine Special Tests Slump Test Results neg B Straight Leg Raise Test Results neg b PT-OP-M Strength Start: 05/15/21 07:31 Freq: Status: Active Protocol: Document 05/15/21 10:38 [facility] (Rec: 05/15/21 12:15 [facility] [id number]) Hip Strength Hip Manual Muscle Testing Left Flexion (L2) 3+ Fair+ Abduction 3 Fair External Rotation 3+ Fair+ Internal Rotation 3+ Fair+ Right Flexion (L2) 3+ Fair+ Abduction 3 Fair External Rotation 3+ Fair+ Internal Rotation 3+ Fair+ Knee Strength Knee Manual Muscle Testing Right Flexion (S2) 4- Good- Extension (L3) 4- Good- Comments pain in SI w/ext Left Flexion (S2) 4- Good- Extension (L3) 4+ Good+ Ankle/Foot Strength Ankle and Foot Manual Muscle Testing Right Dorsiflexion (L4) 3+ Fair+ Plantarflexion (S1) 3+ Fair+ Left Dorsiflexion (L4) 3+ Fair+ Plantarflexion (S1) 3+ Fair+ Comments painPF PT-OP-Q Treatments Start: 05/15/21 07:31 Freq: Status: Active Protocol: Document 06/26/21 09:02 [facility] (Rec: 06/26/21 12:04 [facility] [id number]) Manual Therapy Treatment Soft Tissue Mobilization glutes Body Location R glutes lat & sup Mobilization Type Strumming,Sustained Pressure Intensity/Depth Moderate Body Position Sidelying adductors Body Location R Mobilization Type Rolling,Strumming Intensity/Depth Moderate Body Position Hooklying Comments w/gentle hip ER/IR right lumbar paraspinals Body Location gloria paraspinals & right QL into sacrum Mobilization Type Myofascial Release,Rolling, Other Intensity/Depth Moderate Body Position Sidelying Self-Care/Home Management Treatment Education Other Education Pt educated to try other bed in home to see if it makes a difference of how pt feels at night. EDu w/hand over hand and demos of how to do STM fro pt at home. PT-OP-R Modalities Start: 05/15/21 07:31 Freq: Status: Active Protocol: Document 06/26/21 09:02 [facility] (Rec: 06/26/21 12:04 [facility] [id number]) Hot Pack/Cold Pack Treatment Cold Pack Location right LB and right hip/ right groin Patient Position Hooklying Treatment Duration (minutes) 10 PT-OP-T Assessment and Plan Start: 05/15/21 07:31 Freq: Status: Active Protocol: Document 06/26/21 09:02 [facility] (Rec: 06/26/21 12:04 [facility] [id number]) Physical Therapy Assessment Goals stability Short Term Goal (STG) Pt will be able to safely ascend and descend a curb in order to be safe when in the community. 06/26-uses a cane and feels okay STG Duration 07/06/21 Personnel Analyst Goal (LTG) Pt will feel comfortable navigating community with her . LTG Duration 08/15/21 pain [facility] Goal (LTG) Pt will report SIJ, coccyx and R hip pain no greater than 2/ 10 on any given day for at least 2 week.s 06/26-5-08/15 LTG Duration 08/15/21 strength Short Term Goal (STG) pt will be indep w/HEP for core stability, hip stability, and balance. STG Duration achieved and advancing as tolerated Personnel Analyst Goal (LTG) Pt will score at least 4/5 on all LE MMT to show improved strenght to improve pt mobility. LTG Duration 08/15/21 balance Impairment 35/56 Short Term Goal (STG) Pt will improve ORDOÑEZ balance score to at least 45 to show dec fall risk indoor 06/26-improved to 40 STG Duration 06/30/21 [facility] Goal (LTG) Pt will improve ORDOÑEZ balance score to at least 50 to show dec fall risk in outdoors/ community. LTG Duration 08/15/21 One Impairment Unable to sit for more than one hour due to hip pain, and has difficulty sleeping and moving in bed due to pain in low back and buttock(wakes every 2 hours) Short Term Goal (STG) Pt will be able to do sit to stand from any surfaces w/o inc R hip or back pain. 06/26-no back pain but minor groin pain STG Duration 07/05/21 [facility] Goal (LTG) pt will be able to sleep and lay down w/o LB/SIJ pain or R hip pain. 06/26- sleeping still painful LTG Duration 08/15/21 Assessment Summary Assessment Pt's was very receptive to learning more about how to help pt at home. She has made progress towards being able to do sit to stand w/less pain and balance has improved some per ORDOÑEZ. She would bneefit from cont PT to work on balance, strength, and decreasing pain to improve functional ability. Physical Therapy Plan Frequency and Duration Frequency of Treatment 1-2x/week Duration of Treatment 3 months Plan of Care Start Date 05/15/21 Plan of Care End Date 08/15/21 Therapeutic Interventions Therapeutic Interventions Aquatic Therapy,Balance Training,Gait Training,Home Exercise Program,Joint Mobilizations,Manual Therapy, Neuromuscular Re-education, Orthotic/Prosthetic Management ,Patient/Caregiver Education, Self-Care/Home Management,Soft Tissue Mobilization,Taping, Therapeutic Activities, Therapeutic Exercises Modalities Cold Pack/Ice Massage,Electric Stimulation,Hot Packs, Infrared Therapy,Ultrasound Next Visit Focus/Plan Next Note Type Treatment Note Next Visit Plan cont to progress exercises as pt tolerates and advance core and cont to work on balance
--- NOTE | 2021-06-30 09:52 | PT.OTN ---
Current Diagnoses Sacroiliitis, not elsewhere classified (06/30/21) Other abnormalities of gait and mobility (06/30/21) Abnormal posture (06/30/21) Weakness (06/30/21) Other reduced mobility (06/30/21) Physical Therapy Treatment Note PT-OP-A Visit Information Start: 05/15/21 07:31 Freq: Status: Active Protocol: Document 06/30/21 09:10 [facility] (Rec: 06/30/21 09:52 [facility] [id number]) Out-Patient Physical Therapy Visit Information Visit Information Visit Type Treatment Note Visit Note 04/17 Visit Start Time 09:07 Visit Stop Time 09:56 Total Visit Minutes 49 Visit Number 11 Number of LAN/WAN ENGINEER Visits 0 PT-OP-B Current Condition Start: 05/15/21 07:31 Freq: Status: Active Protocol: Document 05/15/21 10:38 [facility] (Rec: 05/15/21 12:15 [facility] [id number]) Current Condition History of Current Condition Onset Date about 1 month ago Current Complaints SIJ pain and R hip pain & imbalance History of Current Condition Pt has history of chronic LBP and B foot pain w/history of falls and imbalance with multiple bouts of PT that have been successful at reducing pain in the past. Pt reports being sick the entire month of Mar w/juliane. She started in Jan having costrocontritis. She was feeling better w/SI pain after PT last Jan. She had a hip injection in R hip in Feb. She had chest CT, EKG and it was negative. MD would not inject her d/t pt not getting CT of sternum as MD kept changing what was needed for injection. Pt hasn't seen sign letterer for 6 months. She had the wrong day and yesterday got 3/[address] to [place] and realized it was wrong appt time. She is unsure when she will see her. She took her first dose of forest since she was off them while sick. She was taking methotrexate all along. She is still having sinus issues since being sick and is seeing allergy MD in [place] at end of month. She is not stable at all she feels and had difficulty w/on/off curbs. Pt reports R foot is so painful unless she has her shoes on. This just starteda bout a week ago so she needs to schedule to go backt o foot MD. reports she feels really unstable at night. Pt reports she is having hip issues again . Pt reports SIJ pain started about 3 weeks ago. It came on suddnely w/o any underlying causes. Denies any recent falls. Pt reports pain is not killing her but it very irritating and yesterday coccyx was killing me. She started Medaterrain diet she started and is noticing she is gaining weight and it didn't help w/pain. Has to sleep on heating pad at night. Once she gets up and is moving, it is better. Pt reports she no longer gardens. She feels like she will fall fwd if leaning fwd too much to garden and did fall last summer. Prior Treatments and Tests Mult bouts PT in past w/ improved pain Thoracic MRI 04/28: IMPRESSION: 1. Probable synovial cyst resulting in bdtr-gn-vyaghhim canal stenosis at C7-T1 can be further evaluated with MRI cervical spine with and without contrast 2. Thoracic dextroscoliosis and multilevel degenerative changes Lumbar CT 09/10/20: MPRESSION: Multilevel degenerative disc disease and arthropathy results in varying degrees of central and foraminal stenosis, including severe central stenosis at L3- 4. L4-5 and L5-S1 discectomy and fusion with posterior kimi and screw instrumentation in position. No hardware failure or loosening. Decompressive L4 and L5 laminectomies Treatment Goals Patient/Caregiver Goals be able to get up/down from a curb, feel more stable walking , improve pain and improve ability to sleep & sit down Personal Factors Other Personal Factors That May Effect MH: rheumatoid arthritis, GERD Therapy/Recovery , PE, depression, bilateral ankle fusion, left shoulder replacement 2018, right TKA , spinal fusion 10/24, Charcot foot gloria PT-OP-C Subjective Start: 05/15/21 07:31 Freq: Status: Active Protocol: Document 06/30/21 09:10 [facility] (Rec: 06/30/21 09:52 [facility] [id number]) OP-PT Subjective Patient Comments Patient Comments Pt reports she did 30 min in the pool and felt okay after but a lot of pain in bed that night and alot of pain in her back and chest this AM. She is realy scared she is going to fall d/t tripping contantly. PT-OP-D Balance Start: 05/15/21 07:31 Freq: Status: Active Protocol: Document 06/26/21 09:02 [facility] (Rec: 06/26/21 12:04 [facility] [id number]) Balance Tests Ordoñez Balance Test Ordoñez Balance Test Score 40 PT-OP-F Manual Assessment Start: 05/15/21 07:31 Freq: Status: Active Protocol: Document 05/15/21 10:38 [facility] (Rec: 05/15/21 12:15 [facility] [id number]) Manual Assessments Soft Tissue Assessment Soft Tissue Mobility Assessment B glute, R>L QL, ES B, R iliacus tenderness PT-OP-G Mobility & Gait Start: 05/15/21 07:31 Freq: Status: Active Protocol: Document 05/15/21 10:38 [facility] (Rec: 05/15/21 12:15 [facility] [id number]) OP Mobility Evaluation Bed Mobility Rolling able to roll w/pain Supine to and from Sit pain OP Gait Assessment Comments Gait Comments Very stiff and appears unsteady, lat shift w/WB, dec push off, dec stride length B PT-OP-J Posture/Palpation/Skin Start: 05/15/21 07:31 Freq: Status: Active Protocol: Document 05/15/21 10:38 [facility] (Rec: 05/15/21 12:15 [facility] [id number]) Posture Evaluation Comments Posture Comments fwd flex w/inch kyphosis PT-OP-L Special Tests Start: 05/15/21 07:31 Freq: Status: Active Protocol: Document 05/15/21 10:38 [facility] (Rec: 05/15/21 12:15 [facility] [id number]) Special Tests Lumbar Spine Special Tests Slump Test Results neg B Straight Leg Raise Test Results neg b PT-OP-M Strength Start: 05/15/21 07:31 Freq: Status: Active Protocol: Document 05/15/21 10:38 [facility] (Rec: 05/15/21 12:15 [facility] [id number]) Hip Strength Hip Manual Muscle Testing Left Flexion (L2) 3+ Fair+ Abduction 3 Fair External Rotation 3+ Fair+ Internal Rotation 3+ Fair+ Right Flexion (L2) 3+ Fair+ Abduction 3 Fair External Rotation 3+ Fair+ Internal Rotation 3+ Fair+ Knee Strength Knee Manual Muscle Testing Right Flexion (S2) 4- Good- Extension (L3) 4- Good- Comments pain in SI w/ext Left Flexion (S2) 4- Good- Extension (L3) 4+ Good+ Ankle/Foot Strength Ankle and Foot Manual Muscle Testing Right Dorsiflexion (L4) 3+ Fair+ Plantarflexion (S1) 3+ Fair+ Left Dorsiflexion (L4) 3+ Fair+ Plantarflexion (S1) 3+ Fair+ Comments painPF PT-OP-Q Treatments Start: 05/15/21 07:31 Freq: Status: Active Protocol: Document 06/30/21 09:10 [facility] (Rec: 06/30/21 09:52 [id number]) Cardio Equipment Recumbent Stepper (Sci-Fit) Duration (Minutes) 7 Resistance 1 Seat Position 11 Other verbal cues for LE alignment, core activation, push thru entire foot Therapeutic Exercises Sitting Exercises sit to stand Reps/Minutes 5x Comments woeking on wt shift t ft and glute engagement Manual Therapy Treatment Soft Tissue Mobilization adductors Body Location R add, TFL, iliacus Mobilization Type Rolling,Strumming Intensity/Depth Moderate Body Position Hooklying Comments w/gentle hip ER/IR Joint Mobilizations hip Joint R Direction on axis IR FM Neuro Re-Education Treatment Balance Activities hurdles Comments 1. fwd over hurdles (1in) 6 hurdles x6 2. fwd over one taps x4 B 3. side step x1 B PT-OP-R Modalities Start: 05/15/21 07:31 Freq: Status: Active Protocol: Document 06/30/21 09:10 [facility] (Rec: 06/30/21 09:52 [facility] [id number]) Hot Pack/Cold Pack Treatment Cold Pack Location right LB and right hip/ right groin Patient Position Sidelying Treatment Duration (minutes) 10 PT-OP-T Assessment and Plan Start: 05/15/21 07:31 Freq: Status: Active Protocol: Document 06/30/21 09:10 [facility] (Rec: 06/30/21 09:52 [facility] [id number]) Physical Therapy Assessment Goals stability Short Term Goal (STG) Pt will be able to safely ascend and descend a curb in order to be safe when in the community. 06/26-uses a cane and feels okay STG Duration 07/06/21 Mcc Goal (LTG) Pt will feel comfortable navigating community with her . LTG Duration 08/15/21 pain [facility] Goal (LTG) Pt will report SIJ, coccyx and R hip pain no greater than 2/ 10 on any given day for at least 2 week.s 06/26--08/15 LTG Duration 08/15/21 strength Short Term Goal (STG) pt will be indep w/HEP for core stability, hip stability, and balance. STG Duration achieved and advancing as tolerated Vamp Liner Goal (LTG) Pt will score at least 4/5 on all LE MMT to show improved strenght to improve pt mobility. LTG Duration 08/15/21 balance Impairment 35/56 Short Term Goal (STG) Pt will improve ORDOÑEZ balance score to at least 45 to show dec fall risk indoor 06/26-improved to 40 STG Duration 06/30/21 [facility] Goal (LTG) Pt will improve ORDOÑEZ balance score to at least 50 to show dec fall risk in outdoors/ community. LTG Duration 08/15/21 One Impairment Unable to sit for more than one hour due to hip pain, and has difficulty sleeping and moving in bed due to pain in low back and buttock(wakes every 2 hours) Short Term Goal (STG) Pt will be able to do sit to stand from any surfaces w/o inc R hip or back pain. 06/26-no back pain but minor groin pain STG Duration 07/05/21 [facility] Goal (LTG) pt will be able to sleep and lay down w/o LB/SIJ pain or R hip pain. 06/26- sleeping still painful LTG Duration 08/15/21 Assessment Summary Assessment Pt struggled with balance activities and was challenged by nirali activties. She worked on sit to stands to focus on glute enagement to dec pain. manual improved rotations R. Encouraged to wear SI belt Physical Therapy Plan Frequency and Duration Frequency of Treatment 1-2x/week Duration of Treatment 3 months Plan of Care Start Date 05/15/21 Plan of Care End Date 08/15/21 Next Visit Focus/Plan Next Note Type Treatment Note Next Visit Plan cont to progress exercises as pt tolerates and advance core and cont to work on balance
--- NOTE | 2021-07-03 11:19 | PT.OTN ---
Current Diagnoses Sacroiliitis, not elsewhere classified (07/03/21) Other abnormalities of gait and mobility (07/03/21) Abnormal posture (07/03/21) Weakness (07/03/21) Other reduced mobility (07/03/21) Physical Therapy Treatment Note PT-OP-A Visit Information Start: 05/15/21 07:31 Freq: Status: Active Protocol: Document 07/03/21 07:28 [facility] (Rec: 07/03/21 11:19 [facility] [id number]) Out-Patient Physical Therapy Visit Information Visit Information Visit Type Treatment Note Visit Note 05/15 Visit Start Time 09:06 Visit Stop Time 09:55 Total Visit Minutes 49 Visit Number 12 Number of PATCHER Visits 0 PT-OP-B Current Condition Start: 05/15/21 07:31 Freq: Status: Active Protocol: Document 05/15/21 10:38 [facility] (Rec: 05/15/21 12:15 [facility] [id number]) Current Condition History of Current Condition Onset Date about 1 month ago Current Complaints SIJ pain and R hip pain & imbalance History of Current Condition Pt has history of chronic LBP and B foot pain w/history of falls and imbalance with multiple bouts of PT that have been successful at reducing pain in the past. Pt reports being sick the entire month of Mar w/juliane. She started in Jan having costrocontritis. She was feeling better w/SI pain after PT last Jan. She had a hip injection in R hip in Feb. She had chest CT, EKG and it was negative. MD would not inject her d/t pt not getting CT of sternum as MD kept changing what was needed for injection. Pt hasn't seen associate java developer for 6 months. She had the wrong day and yesterday got 3/[address] to [place] and realized it was wrong appt time. She is unsure when she will see her. She took her first dose of forest since she was off them while sick. She was taking methotrexate all along. She is still having sinus issues since being sick and is seeing allergy MD in [place] at end of month. She is not stable at all she feels and had difficulty w/on/off curbs. Pt reports R foot is so painful unless she has her shoes on. This just starteda bout a week ago so she needs to schedule to go backt o foot MD. reports she feels really unstable at night. Pt reports she is having hip issues again . Pt reports SIJ pain started about 3 weeks ago. It came on suddnely w/o any underlying causes. Denies any recent falls. Pt reports pain is not killing her but it very irritating and yesterday coccyx was killing me. She started Medaterrain diet she started and is noticing she is gaining weight and it didn't help w/pain. Has to sleep on heating pad at night. Once she gets up and is moving, it is better. Pt reports she no longer gardens. She feels like she will fall fwd if leaning fwd too much to garden and did fall last summer. Prior Treatments and Tests Mult bouts PT in past w/ improved pain Thoracic MRI 04/28: IMPRESSION: 1. Probable synovial cyst resulting in ggxo-am-veghwzby canal stenosis at C7-T1 can be further evaluated with MRI cervical spine with and without contrast 2. Thoracic dextroscoliosis and multilevel degenerative changes Lumbar CT 09/10/20: MPRESSION: Multilevel degenerative disc disease and arthropathy results in varying degrees of central and foraminal stenosis, including severe central stenosis at L3- 4. L4-5 and L5-S1 discectomy and fusion with posterior kimi and screw instrumentation in position. No hardware failure or loosening. Decompressive L4 and L5 laminectomies Treatment Goals Patient/Caregiver Goals be able to get up/down from a curb, feel more stable walking , improve pain and improve ability to sleep & sit down Personal Factors Other Personal Factors That May Effect MH: rheumatoid arthritis, GERD Therapy/Recovery , PE, depression, bilateral ankle fusion, left shoulder replacement 2018, right TKA , spinal fusion 10/24, Charcot foot gloria PT-OP-C Subjective Start: 05/15/21 07:31 Freq: Status: Active Protocol: Document 07/03/21 07:28 [facility] (Rec: 07/03/21 11:19 [facility] [id number]) OP-PT Subjective Patient Comments Patient Comments Pt had an awful night krishna night and tried to rub leg but groin was too sensative. She went to drive to get trailer yesterday and did okay walking on the gravel . She restarted prednisone and contacted her MD re: this. She feels SOB the past couple days and was able to use inhaler. She sees pain MD next wednesday. She slept okay yesterday but took part of a percocet & sleeping pill. Pt wore SI belt today and wore it yesterday. She feels like it helped a lot yesterday PT-OP-D Balance Start: 05/15/21 07:31 Freq: Status: Active Protocol: Document 06/26/21 09:02 [facility] (Rec: 06/26/21 12:04 [facility] [id number]) Balance Tests Ordoñez Balance Test Ordoñez Balance Test Score 40 PT-OP-F Manual Assessment Start: 05/15/21 07:31 Freq: Status: Active Protocol: Document 05/15/21 10:38 [facility] (Rec: 05/15/21 12:15 [facility] [id number]) Manual Assessments Soft Tissue Assessment Soft Tissue Mobility Assessment B glute, R>L QL, ES B, R iliacus tenderness PT-OP-G Mobility & Gait Start: 05/15/21 07:31 Freq: Status: Active Protocol: Document 05/15/21 10:38 [facility] (Rec: 05/15/21 12:15 [facility] [id number]) OP Mobility Evaluation Bed Mobility Rolling able to roll w/pain Supine to and from Sit pain OP Gait Assessment Comments Gait Comments Very stiff and appears unsteady, lat shift w/WB, dec push off, dec stride length B PT-OP-J Posture/Palpation/Skin Start: 05/15/21 07:31 Freq: Status: Active Protocol: Document 05/15/21 10:38 [facility] (Rec: 05/15/21 12:15 [facility] [id number]) Posture Evaluation Comments Posture Comments fwd flex w/inch kyphosis PT-OP-L Special Tests Start: 05/15/21 07:31 Freq: Status: Active Protocol: Document 05/15/21 10:38 [facility] (Rec: 05/15/21 12:15 [facility] [id number]) Special Tests Lumbar Spine Special Tests Slump Test Results neg B Straight Leg Raise Test Results neg b PT-OP-M Strength Start: 05/15/21 07:31 Freq: Status: Active Protocol: Document 05/15/21 10:38 [facility] (Rec: 05/15/21 12:15 [facility] [id number]) Hip Strength Hip Manual Muscle Testing Left Flexion (L2) 3+ Fair+ Abduction 3 Fair External Rotation 3+ Fair+ Internal Rotation 3+ Fair+ Right Flexion (L2) 3+ Fair+ Abduction 3 Fair External Rotation 3+ Fair+ Internal Rotation 3+ Fair+ Knee Strength Knee Manual Muscle Testing Right Flexion (S2) 4- Good- Extension (L3) 4- Good- Comments pain in SI w/ext Left Flexion (S2) 4- Good- Extension (L3) 4+ Good+ Ankle/Foot Strength Ankle and Foot Manual Muscle Testing Right Dorsiflexion (L4) 3+ Fair+ Plantarflexion (S1) 3+ Fair+ Left Dorsiflexion (L4) 3+ Fair+ Plantarflexion (S1) 3+ Fair+ Comments painPF PT-OP-Q Treatments Start: 05/15/21 07:31 Freq: Status: Active Protocol: Document 07/03/21 07:28 [facility] (Rec: 07/03/21 11:19 [facility] [id number]) Cardio Equipment Recumbent Stepper (Sci-Fit) Duration (Minutes) 7 Resistance 1 Seat Position 11 Other verbal cues for LE alignment, core activation, push thru entire foot Manual Therapy Treatment Soft Tissue Mobilization glutes Body Location R glutes lat & sup Mobilization Type Strumming,Sustained Pressure Intensity/Depth Moderate Body Position Sidelying IT band Body Location TFL & ITB Mobilization Type Rolling,Strumming Intensity/Depth Moderate Body Position Sidelying Comments post border right lumbar paraspinals Body Location gloria paraspinals & right QL into sacrum Mobilization Type Myofascial Release,Rolling, Other Intensity/Depth Moderate Body Position Sidelying Neuro Re-Education Treatment Balance Activities hurdles Comments 1. fwd over hurdles (1in) 6 hurdles x8 foam stand Details duel task discussing gardening tasks Surface blue foam Comments WBOS,NBOS, Staggered stance PT-OP-R Modalities Start: 05/15/21 07:31 Freq: Status: Active Protocol: Document 07/03/21 07:28 [facility] (Rec: 07/03/21 11:19 [facility] [id number]) Hot Pack/Cold Pack Treatment Cold Pack Location right LB and right hip/ right groin Patient Position Sidelying Treatment Duration (minutes) 10 PT-OP-T Assessment and Plan Start: 05/15/21 07:31 Freq: Status: Active Protocol: Document 07/03/21 07:28 [facility] (Rec: 07/03/21 11:19 [facility] [id number]) Physical Therapy Assessment Goals stability Short Term Goal (STG) Pt will be able to safely ascend and descend a curb in order to be safe when in the community. 06/26-uses a cane and feels okay STG Duration 07/06/21 Family Lawyer Goal (LTG) Pt will feel comfortable navigating community with her . LTG Duration 08/15/21 pain Fdc Goal (LTG) Pt will report SIJ, coccyx and R hip pain no greater than 2/ 10 on any given day for at least 2 week.s 06/26-5-08/15 LTG Duration 08/15/21 strength Short Term Goal (STG) pt will be indep w/HEP for core stability, hip stability, and balance. STG Duration achieved and advancing as tolerated Fdc Goal (LTG) Pt will score at least 4/5 on all LE MMT to show improved strenght to improve pt mobility. LTG Duration 08/15/21 balance Impairment 35/56 Short Term Goal (STG) Pt will improve ORDOÑEZ balance score to at least 45 to show dec fall risk indoor 06/26-improved to 40 STG Duration 06/30/21 Family Lawyer Goal (LTG) Pt will improve ORDOÑEZ balance score to at least 50 to show dec fall risk in outdoors/ community. LTG Duration 08/15/21 One Impairment Unable to sit for more than one hour due to hip pain, and has difficulty sleeping and moving in bed due to pain in low back and buttock(wakes every 2 hours) Short Term Goal (STG) Pt will be able to do sit to stand from any surfaces w/o inc R hip or back pain. 06/26-no back pain but minor groin pain STG Duration 07/05/21 Family Lawyer Goal (LTG) pt will be able to sleep and lay down w/o LB/SIJ pain or R hip pain. 06/26- sleeping still painful LTG Duration 08/15/21 Assessment Summary Assessment Pt instructed to contact PCP today re: on/off SOB that has been happening for weeks. She did step to with hurdles but was challenged when talking about gardening info during that time. Physical Therapy Plan Frequency and Duration Frequency of Treatment 1-2x/week Duration of Treatment 3 months Plan of Care Start Date 05/15/21 Plan of Care End Date 08/15/21 Next Visit Focus/Plan Next Note Type Treatment Note Next Visit Plan cont to progress exercises as pt tolerates and advance core and cont to work on balance
--- NOTE | 2021-07-10 09:49 | PT.OTN ---
Current Diagnoses Sacroiliitis, not elsewhere classified (07/10/21) Other abnormalities of gait and mobility (07/10/21) Abnormal posture (07/10/21) Weakness (07/10/21) Other reduced mobility (07/10/21) Physical Therapy Treatment Note PT-OP-A Visit Information Start: 05/15/21 07:31 Freq: Status: Active Protocol: Document 07/10/21 09:05 [facility] (Rec: 07/10/21 09:49 [facility] [id number]) Out-Patient Physical Therapy Visit Information Visit Information Visit Type Treatment Note Visit Note 06/15 Visit Start Time 09:03 Visit Stop Time 09:53 Total Visit Minutes 50 Visit Number 13 Number of POURER BULL LADLE Visits 0 PT-OP-B Current Condition Start: 05/15/21 07:31 Freq: Status: Active Protocol: Document 05/15/21 10:38 [facility] (Rec: 05/15/21 12:15 [facility] [id number]) Current Condition History of Current Condition Onset Date about 1 month ago Current Complaints SIJ pain and R hip pain & imbalance History of Current Condition Pt has history of chronic LBP and B foot pain w/history of falls and imbalance with multiple bouts of PT that have been successful at reducing pain in the past. Pt reports being sick the entire month of Mar w/juliane. She started in Jan having costrocontritis. She was feeling better w/SI pain after PT last Jan. She had a hip injection in R hip in Feb. She had chest CT, EKG and it was negative. MD would not inject her d/t pt not getting CT of sternum as MD kept changing what was needed for injection. Pt hasn't seen sinter machine operator for 6 months. She had the wrong day and yesterday got 3/[address] to [place] and realized it was wrong appt time. She is unsure when she will see her. She took her first dose of forest since she was off them while sick. She was taking methotrexate all along. She is still having sinus issues since being sick and is seeing allergy MD in [place] at end of month. She is not stable at all she feels and had difficulty w/on/off curbs. Pt reports R foot is so painful unless she has her shoes on. This just starteda bout a week ago so she needs to schedule to go backt o foot MD. reports she feels really unstable at night. Pt reports she is having hip issues again . Pt reports SIJ pain started about 3 weeks ago. It came on suddnely w/o any underlying causes. Denies any recent falls. Pt reports pain is not killing her but it very irritating and yesterday coccyx was killing me. She started Medaterrain diet she started and is noticing she is gaining weight and it didn't help w/pain. Has to sleep on heating pad at night. Once she gets up and is moving, it is better. Pt reports she no longer gardens. She feels like she will fall fwd if leaning fwd too much to garden and did fall last summer. Prior Treatments and Tests Mult bouts PT in past w/ improved pain Thoracic MRI 04/28: IMPRESSION: 1. Probable synovial cyst resulting in cyaj-lv-jmizoahm canal stenosis at C7-T1 can be further evaluated with MRI cervical spine with and without contrast 2. Thoracic dextroscoliosis and multilevel degenerative changes Lumbar CT 09/10/20: MPRESSION: Multilevel degenerative disc disease and arthropathy results in varying degrees of central and foraminal stenosis, including severe central stenosis at L3- 4. L4-5 and L5-S1 discectomy and fusion with posterior kimi and screw instrumentation in position. No hardware failure or loosening. Decompressive L4 and L5 laminectomies Treatment Goals Patient/Caregiver Goals be able to get up/down from a curb, feel more stable walking , improve pain and improve ability to sleep & sit down Personal Factors Other Personal Factors That May Effect MH: rheumatoid arthritis, GERD Therapy/Recovery , PE, depression, bilateral ankle fusion, left shoulder replacement 2018, right TKA , spinal fusion 10/24, Charcot foot gloria PT-OP-C Subjective Start: 05/15/21 07:31 Freq: Status: Active Protocol: Document 07/10/21 09:05 [facility] (Rec: 07/10/21 09:49 [facility] [id number]) OP-PT Subjective Patient Comments Patient Comments Pt had SI injections B on wednesday and her SI has been much better. Pt saw rehab medicine specialist for chest yesterday but they did nothing but order a MRI. R adductor is still sore and is the most sore overall PT-OP-D Balance Start: 05/15/21 07:31 Freq: Status: Active Protocol: Document 06/26/21 09:02 [facility] (Rec: 06/26/21 12:04 [facility] [id number]) Balance Tests Ordoñez Balance Test Ordoñez Balance Test Score 40 PT-OP-F Manual Assessment Start: 05/15/21 07:31 Freq: Status: Active Protocol: Document 05/15/21 10:38 [facility] (Rec: 05/15/21 12:15 [facility] [id number]) Manual Assessments Soft Tissue Assessment Soft Tissue Mobility Assessment B glute, R>L QL, ES B, R iliacus tenderness PT-OP-G Mobility & Gait Start: 05/15/21 07:31 Freq: Status: Active Protocol: Document 05/15/21 10:38 [facility] (Rec: 05/15/21 12:15 [facility] [id number]) OP Mobility Evaluation Bed Mobility Rolling able to roll w/pain Supine to and from Sit pain OP Gait Assessment Comments Gait Comments Very stiff and appears unsteady, lat shift w/WB, dec push off, dec stride length B PT-OP-J Posture/Palpation/Skin Start: 05/15/21 07:31 Freq: Status: Active Protocol: Document 05/15/21 10:38 [facility] (Rec: 05/15/21 12:15 [facility] [id number]) Posture Evaluation Comments Posture Comments fwd flex w/inch kyphosis PT-OP-L Special Tests Start: 05/15/21 07:31 Freq: Status: Active Protocol: Document 05/15/21 10:38 [facility] (Rec: 05/15/21 12:15 [facility] [id number]) Special Tests Lumbar Spine Special Tests Slump Test Results neg B Straight Leg Raise Test Results neg b PT-OP-M Strength Start: 05/15/21 07:31 Freq: Status: Active Protocol: Document 05/15/21 10:38 [facility] (Rec: 05/15/21 12:15 [facility] [id number]) Hip Strength Hip Manual Muscle Testing Left Flexion (L2) 3+ Fair+ Abduction 3 Fair External Rotation 3+ Fair+ Internal Rotation 3+ Fair+ Right Flexion (L2) 3+ Fair+ Abduction 3 Fair External Rotation 3+ Fair+ Internal Rotation 3+ Fair+ Knee Strength Knee Manual Muscle Testing Right Flexion (S2) 4- Good- Extension (L3) 4- Good- Comments pain in SI w/ext Left Flexion (S2) 4- Good- Extension (L3) 4+ Good+ Ankle/Foot Strength Ankle and Foot Manual Muscle Testing Right Dorsiflexion (L4) 3+ Fair+ Plantarflexion (S1) 3+ Fair+ Left Dorsiflexion (L4) 3+ Fair+ Plantarflexion (S1) 3+ Fair+ Comments painPF PT-OP-Q Treatments Start: 05/15/21 07:31 Freq: Status: Active Protocol: Document 07/10/21 09:05 [facility] (Rec: 07/10/21 09:49 [facility] [id number]) Cardio Equipment Recumbent Stepper (Sci-Fit) Duration (Minutes) 7 Resistance 1 Seat Position 11 Other verbal cues for LE alignment, core activation, push thru entire foot Therapeutic Exercises Standing Exercises step up Standing Exercise Name 4 in step up then down Side bilateral Equipment Used rail prn Reps/Minutes 8 ea Manual Therapy Treatment Soft Tissue Mobilization adductors Body Location R add Mobilization Type Rolling,Strumming Intensity/Depth Moderate Body Position Hooklying Comments w/gentle hip ER/IR Neuro Re-Education Treatment Balance Activities hurdles Comments 1. fwd over hurdles 6 hurdles x2 leading w/LLE and x2 leading w/RLE 2. side step x1 B foam stand Details duel task discussing gardening tasks Surface blue foam Comments WBOS,NBOS, Staggered stance PT-OP-R Modalities Start: 05/15/21 07:31 Freq: Status: Active Protocol: Document 07/10/21 09:05 [facility] (Rec: 07/10/21 09:49 [facility] [id number]) Hot Pack/Cold Pack Treatment Cold Pack Location right LB and right hip/ right groin Patient Position Sidelying Treatment Duration (minutes) 10 PT-OP-T Assessment and Plan Start: 05/15/21 07:31 Freq: Status: Active Protocol: Document 07/10/21 09:05 [facility] (Rec: 07/10/21 09:49 [facility] [id number]) Physical Therapy Assessment Goals stability Short Term Goal (STG) Pt will be able to safely ascend and descend a curb in order to be safe when in the community. 06/26-uses a cane and feels okay STG Duration 07/06/21 Socket Puller Goal (LTG) Pt will feel comfortable navigating community with her . LTG Duration 08/15/21 pain Mcfp Goal (LTG) Pt will report SIJ, coccyx and R hip pain no greater than 2/ 10 on any given day for at least 2 week.s 06/26--08/15 LTG Duration 08/15/21 strength Short Term Goal (STG) pt will be indep w/HEP for core stability, hip stability, and balance. STG Duration achieved and advancing as tolerated Mcfp Goal (LTG) Pt will score at least 4/5 on all LE MMT to show improved strenght to improve pt mobility. LTG Duration 08/15/21 balance Impairment 35/56 Short Term Goal (STG) Pt will improve ORDOÑEZ balance score to at least 45 to show dec fall risk indoor 06/26-improved to 40 STG Duration 06/30/21 Socket Puller Goal (LTG) Pt will improve ORDOÑEZ balance score to at least 50 to show dec fall risk in outdoors/ community. LTG Duration 08/15/21 One Impairment Unable to sit for more than one hour due to hip pain, and has difficulty sleeping and moving in bed due to pain in low back and buttock(wakes every 2 hours) Short Term Goal (STG) Pt will be able to do sit to stand from any surfaces w/o inc R hip or back pain. 06/26-no back pain but minor groin pain STG Duration 07/05/21 Socket Puller Goal (LTG) pt will be able to sleep and lay down w/o LB/SIJ pain or R hip pain. 06/26- sleeping still painful LTG Duration 08/15/21 Assessment Summary Assessment Pt did well with her balance today and showed better stability ttoday. Step ups were difficult. She has better ER of hip today. Physical Therapy Plan Frequency and Duration Frequency of Treatment 1-2x/week Duration of Treatment 3 months Plan of Care Start Date 05/15/21 Plan of Care End Date 08/15/21 Next Visit Focus/Plan Next Note Type Treatment Note Next Visit Plan cont to progress exercises as pt tolerates and advance core and cont to work on balance
--- NOTE | 2021-07-14 14:48 | PT.OTN ---
Current Diagnoses Sacroiliitis, not elsewhere classified (07/14/21) Other abnormalities of gait and mobility (07/14/21) Abnormal posture (07/14/21) Weakness (07/14/21) Other reduced mobility (07/14/21) Physical Therapy Treatment Note PT-OP-A Visit Information Start: 05/15/21 07:31 Freq: Status: Active Protocol: Document 07/14/21 14:38 [facility] (Rec: 07/14/21 14:43 [facility] [id number]) Out-Patient Physical Therapy Visit Information Visit Information Visit Type Aquatic Treatment Note Visit Note 07/15 Visit Start Time 11:00 Visit Stop Time 11:45 Total Visit Minutes 45 Visit Number 14 Number of INSIDE SALES ADVISOR Visits 0 PT-OP-B Current Condition Start: 05/15/21 07:31 Freq: Status: Active Protocol: Document 05/15/21 10:38 [facility] (Rec: 05/15/21 12:15 [facility] [id number]) Current Condition History of Current Condition Onset Date about 1 month ago Current Complaints SIJ pain and R hip pain & imbalance History of Current Condition Pt has history of chronic LBP and B foot pain w/history of falls and imbalance with multiple bouts of PT that have been successful at reducing pain in the past. Pt reports being sick the entire month of Mar w/angel. She started in Jan having costrocontritis. She was feeling better w/SI pain after PT last Jan. She had a hip injection in R hip in Feb. She had chest CT, EKG and it was negative. MD would not inject her d/t pt not getting CT of sternum as MD kept changing what was needed for injection. Pt hasn't seen co director for 6 months. She had the wrong day and yesterday got 3/[address] to [place] and realized it was wrong appt time. She is unsure when she will see her. She took her first dose of forest since she was off them while sick. She was taking methotrexate all along. She is still having sinus issues since being sick and is seeing allergy MD in [place] at end of month. She is not stable at all she feels and had difficulty w/on/off curbs. Pt reports R foot is so painful unless she has her shoes on. This just starteda bout a week ago so she needs to schedule to go backt o foot MD. reports she feels really unstable at night. Pt reports she is having hip issues again . Pt reports SIJ pain started about 3 weeks ago. It came on suddnely w/o any underlying causes. Denies any recent falls. Pt reports pain is not killing her but it very irritating and yesterday coccyx was killing me. She started Medaterrain diet she started and is noticing she is gaining weight and it didn't help w/pain. Has to sleep on heating pad at night. Once she gets up and is moving, it is better. Pt reports she no longer gardens. She feels like she will fall fwd if leaning fwd too much to garden and did fall last summer. Prior Treatments and Tests Mult bouts PT in past w/ improved pain Thoracic MRI 04/28: IMPRESSION: 1. Probable synovial cyst resulting in [id number] canal stenosis at C7-T1 can be further evaluated with MRI cervical spine with and without contrast 2. Thoracic dextroscoliosis and multilevel degenerative changes Lumbar CT 09/10/20: MPRESSION: Multilevel degenerative disc disease and arthropathy results in varying degrees of central and foraminal stenosis, including severe central stenosis at L3- 4. L4-5 and L5-S1 discectomy and fusion with posterior kimi and screw instrumentation in position. No hardware failure or loosening. Decompressive L4 and L5 laminectomies Treatment Goals Patient/Caregiver Goals be able to get up/down from a curb, feel more stable walking , improve pain and improve ability to sleep & sit down Personal Factors Other Personal Factors That May Effect MH: rheumatoid arthritis, GERD Therapy/Recovery , PE, depression, bilateral ankle fusion, left shoulder replacement 2018, right TKA , spinal fusion 10/24, Charcot foot gloria PT-OP-C Subjective Start: 05/15/21 07:31 Freq: Status: Active Protocol: Document 07/14/21 14:38 [facility] (Rec: 07/14/21 14:43 [facility] [id number]) OP-PT Subjective Patient Comments Patient Comments Reports feet very sore after working on her balance last session. Patient reports she has been hurting worse most recently after going to aquatic therapy, needs guidance about what she can do . PT-OP-D Balance Start: 05/15/21 07:31 Freq: Status: Active Protocol: Document 06/26/21 09:02 [facility] (Rec: 06/26/21 12:04 [facility] [id number]) Balance Tests Ordoñez Balance Test Ordoñez Balance Test Score 40 PT-OP-F Manual Assessment Start: 05/15/21 07:31 Freq: Status: Active Protocol: Document 05/15/21 10:38 [facility] (Rec: 05/15/21 12:15 [facility] [id number]) Manual Assessments Soft Tissue Assessment Soft Tissue Mobility Assessment B glute, R>L QL, ES B, R iliacus tenderness PT-OP-G Mobility & Gait Start: 05/15/21 07:31 Freq: Status: Active Protocol: Document 05/15/21 10:38 [facility] (Rec: 05/15/21 12:15 [facility] [id number]) OP Mobility Evaluation Bed Mobility Rolling able to roll w/pain Supine to and from Sit pain OP Gait Assessment Comments Gait Comments Very stiff and appears unsteady, lat shift w/WB, dec push off, dec stride length B PT-OP-J Posture/Palpation/Skin Start: 05/15/21 07:31 Freq: Status: Active Protocol: Document 05/15/21 10:38 [facility] (Rec: 05/15/21 12:15 [facility] [id number]) Posture Evaluation Comments Posture Comments fwd flex w/inch kyphosis PT-OP-L Special Tests Start: 05/15/21 07:31 Freq: Status: Active Protocol: Document 05/15/21 10:38 [facility] (Rec: 05/15/21 12:15 [facility] [id number]) Special Tests Lumbar Spine Special Tests Slump Test Results neg B Straight Leg Raise Test Results neg b PT-OP-M Strength Start: 05/15/21 07:31 Freq: Status: Active Protocol: Document 05/15/21 10:38 [facility] (Rec: 05/15/21 12:15 [facility] [id number]) Hip Strength Hip Manual Muscle Testing Left Flexion (L2) 3+ Fair+ Abduction 3 Fair External Rotation 3+ Fair+ Internal Rotation 3+ Fair+ Right Flexion (L2) 3+ Fair+ Abduction 3 Fair External Rotation 3+ Fair+ Internal Rotation 3+ Fair+ Knee Strength Knee Manual Muscle Testing Right Flexion (S2) 4- Good- Extension (L3) 4- Good- Comments pain in SI w/ext Left Flexion (S2) 4- Good- Extension (L3) 4+ Good+ Ankle/Foot Strength Ankle and Foot Manual Muscle Testing Right Dorsiflexion (L4) 3+ Fair+ Plantarflexion (S1) 3+ Fair+ Left Dorsiflexion (L4) 3+ Fair+ Plantarflexion (S1) 3+ Fair+ Comments painPF PT-OP-Q Treatments Start: 05/15/21 07:31 Freq: Status: Active Protocol: Document 07/10/21 09:05 [facility] (Rec: 07/10/21 09:49 [facility] [id number]) Cardio Equipment Recumbent Stepper (Sci-Fit) Duration (Minutes) 7 Resistance 1 Seat Position 11 Other verbal cues for LE alignment, core activation, push thru entire foot Therapeutic Exercises Standing Exercises step up Standing Exercise Name 4 in step up then down Side bilateral Equipment Used rail prn Reps/Minutes 8 ea Manual Therapy Treatment Soft Tissue Mobilization adductors Body Location R add Mobilization Type Rolling,Strumming Intensity/Depth Moderate Body Position Hooklying Comments w/gentle hip ER/IR Neuro Re-Education Treatment Balance Activities hurdles Comments 1. fwd over hurdles 6 hurdles x2 leading w/LLE and x2 leading w/RLE 2. side step x1 B foam stand Details duel task discussing gardening tasks Surface blue foam Comments WBOS,NBOS, Staggered stance PT-OP-R Modalities Start: 05/15/21 07:31 Freq: Status: Active Protocol: Document 07/10/21 09:05 [facility] (Rec: 07/10/21 09:49 [facility] [id number]) Hot Pack/Cold Pack Treatment Cold Pack Location right LB and right hip/ right groin Patient Position Sidelying Treatment Duration (minutes) 10 PT-OP-S Aquatic Treatment Start: 07/14/21 14:44 Freq: Status: Active Protocol: Document 07/14/21 14:38 [facility] (Rec: 07/14/21 14:48 [facility] [id number]) Aquatics Treatment Pool Entry/Exit Pool Entry/Exit Method Lift Assistance Contact Guard Assistance, Verbal Cues Water Walking Sideways Water Level Chest Level Level of Assistance Verbal Cues forward Water Level Chest Level Level of Assistance Verbal Cues Comments arms in ER at sides for ant chest stretch Lower Extremity Exercises knee flex/ext Body Position Standing Water Level Neck Level Reps/Duration 10x hip ab/ad Body Position Standing Water Level [place] Reps/Duration 10x Comments small movement Hip flex/ex Body Position Standing Water Level [place] Reps/Duration 10x Comments small motions Spinal Exercises Wall squat DLS Body Position Sitting Water Level Neck Level Comments gloria and unil hor ab/ad Balance standing wt shift Details wt toes to heels, side to side subtle EO,EC Body Position Standing Water Level Chest Level [place] Activities Other Activities Deep water walk SKTC (painful) DKTC Equipment flotation belt (L), small noodle Duration 20 PT-OP-T Assessment and Plan Start: 05/15/21 07:31 Freq: Status: Active Protocol: Document 07/14/21 14:38 [facility] (Rec: 07/14/21 14:43 [facility] [id number]) Physical Therapy Assessment Goals stability Short Term Goal (STG) Pt will be able to safely ascend and descend a curb in order to be safe when in the community. 06/26-uses a cane and feels okay STG Duration 07/06/21 Flattening Machine Operator Goal (LTG) Pt will feel comfortable navigating community with her . LTG Duration 08/15/21 pain Flattening Machine Operator Goal (LTG) Pt will report SIJ, coccyx and R hip pain no greater than 2/ 10 on any given day for at least 2 week.s 06/26--08/15 LTG Duration 08/15/21 strength Short Term Goal (STG) pt will be indep w/HEP for core stability, hip stability, and balance. STG Duration achieved and advancing as tolerated Intermediate Goal (LTG) Pt will score at least 4/5 on all LE MMT to show improved strenght to improve pt mobility. LTG Duration 08/15/21 balance Impairment 35/56 Short Term Goal (STG) Pt will improve ORDOÑEZ balance score to at least 45 to show dec fall risk indoor 06/26-improved to 40 STG Duration 06/30/21 Flattening Machine Operator Goal (LTG) Pt will improve ORDOÑEZ balance score to at least 50 to show dec fall risk in outdoors/ community. LTG Duration 08/15/21 One Impairment Unable to sit for more than one hour due to hip pain, and has difficulty sleeping and moving in bed due to pain in low back and buttock(wakes every 2 hours) Short Term Goal (STG) Pt will be able to do sit to stand from any surfaces w/o inc R hip or back pain. 06/26-no back pain but minor groin pain STG Duration 07/05/21 Flattening Machine Operator Goal (LTG) pt will be able to sleep and lay down w/o LB/SIJ pain or R hip pain. 06/26- sleeping still painful LTG Duration 08/15/21 Assessment Summary Assessment Patient responded well to cues to ease off intensity and length of stride with deep water walk, don't lift knees as high, altered flotation, work more deep water hange into aquatic sessions. Reviewed prior core exercise of wall squat with good tolerance. Physical Therapy Plan Frequency and Duration Frequency of Treatment 1-2x/week Duration of Treatment 3 months Plan of Care Start Date 05/15/21 Plan of Care End Date 08/15/21 Therapeutic Interventions Therapeutic Interventions Aquatic Therapy,Balance Training,Gait Training,Home Exercise Program,Joint Mobilizations,Manual Therapy, Neuromuscular Re-education, Orthotic/Prosthetic Management ,Patient/Caregiver Education, Self-Care/Home Management,Soft Tissue Mobilization,Taping, Therapeutic Activities, Therapeutic Exercises Modalities Cold Pack/Ice Massage,Electric Stimulation,Hot Packs, Infrared Therapy,Ultrasound Next Visit Focus/Plan Next Note Type Treatment Note Next Visit Plan treatment for left anterior rib pain when receive order, continue to progress ther ex with emphasis on core stabilization.
--- NOTE | 2021-07-21 14:30 | PT.OTN ---
Current Diagnoses Sacroiliitis, not elsewhere classified (07/21/21) Precordial pain (07/21/21) Other abnormalities of gait and mobility (07/21/21) Abnormal posture (07/21/21) Weakness (07/21/21) Other reduced mobility (07/21/21) Physical Therapy Treatment Note PT-OP-A Visit Information Start: 05/15/21 07:31 Freq: Status: Active Protocol: Document 07/21/21 14:30 [facility] (Rec: 07/21/21 15:24 [facility] [id number]) Out-Patient Physical Therapy Visit Information Visit Information Visit Type Treatment Note Visit Note 08/15 Visit Start Time 11:00 Visit Stop Time 11:45 Total Visit Minutes 45 Visit Number 15 Number of INTERNET MARKETING DIRECTOR Visits 0 PT-OP-B Current Condition Start: 05/15/21 07:31 Freq: Status: Active Protocol: Document 05/15/21 10:38 [facility] (Rec: 05/15/21 12:15 [facility] [id number]) Current Condition History of Current Condition Onset Date about 1 month ago Current Complaints SIJ pain and R hip pain & imbalance History of Current Condition Pt has history of chronic LBP and B foot pain w/history of falls and imbalance with multiple bouts of PT that have been successful at reducing pain in the past. Pt reports being sick the entire month of Mar w/. She started in Jan having costrocontritis. She was feeling better w/SI pain after PT last Jan. She had a hip injection in R hip in Feb. She had chest CT, EKG and it was negative. MD would not inject her d/t pt not getting CT of sternum as MD kept changing what was needed for injection. Pt hasn't seen real estate asset manager for 6 months. She had the wrong day and yesterday got 3/[address] to [place] and realized it was wrong appt time. She is unsure when she will see her. She took her first dose of forest since she was off them while sick. She was taking methotrexate all along. She is still having sinus issues since being sick and is seeing allergy MD in [place] at end of month. She is not stable at all she feels and had difficulty w/on/off curbs. Pt reports R foot is so painful unless she has her shoes on. This just starteda bout a week ago so she needs to schedule to go backt o foot . reports she feels really unstable at night. Pt reports she is having hip issues again . Pt reports SIJ pain started about 3 weeks ago. It came on suddnely w/o any underlying causes. Denies any recent falls. Pt reports pain is not killing her but it very irritating and yesterday coccyx was killing me. She started Medaterrain diet she started and is noticing she is gaining weight and it didn't help w/pain. Has to sleep on heating pad at night. Once she gets up and is moving, it is better. Pt reports she no longer gardens. She feels like she will fall fwd if leaning fwd too much to garden and did fall last summer. Prior Treatments and Tests Mult bouts PT in past w/ improved pain Thoracic MRI 04/28: IMPRESSION: 1. Probable synovial cyst resulting in [id number]-marqlicr canal stenosis at C7-T1 can be further evaluated with MRI cervical spine with and without contrast 2. Thoracic dextroscoliosis and multilevel degenerative changes Lumbar CT 09/10/20: MPRESSION: Multilevel degenerative disc disease and arthropathy results in varying degrees of central and foraminal stenosis, including severe central stenosis at L3- 4. L4-5 and L5-S1 discectomy and fusion with posterior kimi and screw instrumentation in position. No hardware failure or loosening. Decompressive L4 and L5 laminectomies Treatment Goals Patient/Caregiver Goals be able to get up/down from a curb, feel more stable walking , improve pain and improve ability to sleep & sit down Personal Factors Other Personal Factors That May Effect MH: rheumatoid arthritis, GERD Therapy/Recovery , PE, depression, bilateral ankle fusion, left shoulder replacement 2018, right TKA , spinal fusion 10/24, Charcot foot gloria PT-OP-C Subjective Start: 05/15/21 07:31 Freq: Status: Active Protocol: Document 07/21/21 14:30 [facility] (Rec: 07/21/21 15:24 [facility] [id number]) OP-PT Subjective Patient Comments Patient Comments Sternal pain still very high, got referral to treeat sternal pain. also right hip and low back pain caused her to be unable to walk yesterday. JUst saw doctor, taken off Celebrex, and prescribed Ibuprofen 800 mg 4x/day for 2 weeks. Had MRI ordered for left sternum but patient wants to wait until sees if Ibuprofen and PT helpful. Uses heat and ice, states sleeps with heat on all night. Sees new real estate asset manager next week. THrobbing sternal pain gloria left greater than right, mostly when reaching across her body, leaning forward, also has to use heat all night to be able to sleep. PT-OP-D Balance Start: 05/15/21 07:31 Freq: Status: Active Protocol: Document 06/26/21 09:02 [facility] (Rec: 06/26/21 12:04 [facility] [id number]) Balance Tests Ordoñez Balance Test Ordoñez Balance Test Score 40 PT-OP-F Manual Assessment Start: 05/15/21 07:31 Freq: Status: Active Protocol: Document 05/15/21 10:38 [facility] (Rec: 05/15/21 12:15 [facility] [id number]) Manual Assessments Soft Tissue Assessment Soft Tissue Mobility Assessment B glute, R>L QL, ES B, R iliacus tenderness PT-OP-G Mobility & Gait Start: 05/15/21 07:31 Freq: Status: Active Protocol: Document 05/15/21 10:38 [facility] (Rec: 05/15/21 12:15 [facility] [id number]) OP Mobility Evaluation Bed Mobility Rolling able to roll w/pain Supine to and from Sit pain OP Gait Assessment Comments Gait Comments Very stiff and appears unsteady, lat shift w/WB, dec push off, dec stride length B PT-OP-J Posture/Palpation/Skin Start: 05/15/21 07:31 Freq: Status: Active Protocol: Document 05/15/21 10:38 [facility] (Rec: 05/15/21 12:15 [facility] [id number]) Posture Evaluation Comments Posture Comments fwd flex w/inch kyphosis PT-OP-L Special Tests Start: 05/15/21 07:31 Freq: Status: Active Protocol: Document 05/15/21 10:38 [facility] (Rec: 05/15/21 12:15 [facility] [id number]) Special Tests Lumbar Spine Special Tests Slump Test Results neg B Straight Leg Raise Test Results neg b PT-OP-M Strength Start: 05/15/21 07:31 Freq: Status: Active Protocol: Document 05/15/21 10:38 [facility] (Rec: 05/15/21 12:15 [facility] [id number]) Hip Strength Hip Manual Muscle Testing Left Flexion (L2) 3+ Fair+ Abduction 3 Fair External Rotation 3+ Fair+ Internal Rotation 3+ Fair+ Right Flexion (L2) 3+ Fair+ Abduction 3 Fair External Rotation 3+ Fair+ Internal Rotation 3+ Fair+ Knee Strength Knee Manual Muscle Testing Right Flexion (S2) 4- Good- Extension (L3) 4- Good- Comments pain in SI w/ext Left Flexion (S2) 4- Good- Extension (L3) 4+ Good+ Ankle/Foot Strength Ankle and Foot Manual Muscle Testing Right Dorsiflexion (L4) 3+ Fair+ Plantarflexion (S1) 3+ Fair+ Left Dorsiflexion (L4) 3+ Fair+ Plantarflexion (S1) 3+ Fair+ Comments painPF PT-OP-Q Treatments Start: 05/15/21 07:31 Freq: Status: Active Protocol: Document 07/21/21 14:30 [facility] (Rec: 07/21/21 16:53 [facility] [id number]) Cardio Equipment Recumbent Stepper (Sci-Fit) Duration (Minutes) 8 Resistance 1 Seat Position 11 Therapeutic Exercises Supine Exercises deep breathing Supine Exercise Name diaphragm, lateral rib, chest Reps/Minutes 81 Comments verbal and tactile cues add Supine Exercise Name ball squeeze w/TA contraction Side bilateral Reps/Minutes 5 sec x10 Comments cues for breathing Manual Therapy Treatment Taping sternum Body Location supraclavicular fossa to opposite chostochondral junction Treatment Focus edema and pain reduction Type of Tape kinesiotape Skin Inspection intact Comments 2 fan strips, paper off tension PT-OP-R Modalities Start: 05/15/21 07:31 Freq: Status: Active Protocol: Document 07/21/21 14:30 [facility] (Rec: 07/21/21 16:53 [facility] [id number]) Hot Pack/Cold Pack Treatment Cold Pack Location gloria buttocks and low back, chest Comments during supine ther ex, breathing ex PT-OP-S Aquatic Treatment Start: 07/14/21 14:44 Freq: Status: Active Protocol: Document 07/14/21 14:38 [facility] (Rec: 07/14/21 14:48 [facility] [id number]) Aquatics Treatment Pool Entry/Exit Pool Entry/Exit Method Lift Assistance Contact Guard Assistance, Verbal Cues Water Walking Sideways Water Level Chest Level Level of Assistance Verbal Cues forward Water Level Chest Level Level of Assistance Verbal Cues Comments arms in ER at sides for ant chest stretch Lower Extremity Exercises knee flex/ext Body Position Standing Water Level Neck Level Reps/Duration 10x hip ab/ad Body Position Standing Water Level Ruby Reps/Duration 10x Comments small movement Hip flex/ex Body Position Standing Water Level Ruby Reps/Duration 10x Comments small motions Spinal Exercises Wall squat DLS Body Position Sitting Water Level Neck Level Comments gloria and unil hor ab/ad Balance standing wt shift Details wt toes to heels, side to side subtle EO,EC Body Position Standing Water Level Chest Level Ruby Activities Other Activities Deep water walk SKTC (painful) DKTC Equipment flotation belt (L), small noodle Duration 20 PT-OP-T Assessment and Plan Start: 05/15/21 07:31 Freq: Status: Active Protocol: Document 07/21/21 14:30 [facility] (Rec: 07/21/21 15:24 [facility] [id number]) Physical Therapy Assessment Goals sternal pain Impairment pain sternum, costochondral junction Impairment limited UE use due to pain sternum, upper costochondral junctions left greater than right, swelling proximal sternum Circulation Librarian Goal (LTG) Decrease pain to no greater than 2/10 with patient able to resume all activities including ADL's and usual functional activities without chest pain LTG Duration 08/15/21 stability Short Term Goal (STG) Pt will be able to safely ascend and descend a curb in order to be safe when in the community. 06/26-uses a cane and feels okay STG Duration 07/06/21 Circulation Librarian Goal (LTG) Pt will feel comfortable navigating community with her . LTG Duration 08/15/21 pain Circulation Librarian Goal (LTG) Pt will report SIJ, coccyx and R hip pain no greater than 2/ 10 on any given day for at least 2 week.s 06/26-5-08/15 LTG Duration 08/15/21 strength Short Term Goal (STG) pt will be indep w/HEP for core stability, hip stability, and balance. STG Duration achieved and advancing as tolerated Residential Goal (LTG) Pt will score at least 4/5 on all LE MMT to show improved strenght to improve pt mobility. LTG Duration 08/15/21 balance Impairment 35/56 Short Term Goal (STG) Pt will improve ORDOÑEZ balance score to at least 45 to show dec fall risk indoor 06/26-improved to 40 STG Duration 06/30/21 Circulation Librarian Goal (LTG) Pt will improve ORDOÑEZ balance score to at least 50 to show dec fall risk in outdoors/ community. LTG Duration 08/15/21 One Impairment Unable to sit for more than one hour due to hip pain, and has difficulty sleeping and moving in bed due to pain in low back and buttock(wakes every 2 hours) Short Term Goal (STG) Pt will be able to do sit to stand from any surfaces w/o inc R hip or back pain. 06/26-no back pain but minor groin pain STG Duration 07/05/21 Residential Goal (LTG) pt will be able to sleep and lay down w/o LB/SIJ pain or R hip pain. 06/26- sleeping still painful LTG Duration 08/15/21 Assessment Summary Assessment Signs and symptoms of pain lateral sternum are consistent with costochondritis. Patient tender to palpation costochondral joints left greater than right, also palpable subclavicular tender nodules on left. Significant swelling without redness or heat noted proximal central sternal area, treated with kinesiotape fan taping for edema reduction. Worked on deep breathing into upper chest for gentle rib mobility; initially unable to breath into upper chest, with verbal and tactile cues by end of session able to breath into upper chest. Good tolerance for ice in chest, patient has been using mostly heat but feel ice more indicated at this time due to swelling, patient in agreement. Physical Therapy Plan Frequency and Duration Frequency of Treatment 1-2x/week Duration of Treatment 3 months Plan of Care Start Date 05/15/21 Plan of Care End Date 08/15/21 Therapeutic Interventions Therapeutic Interventions Aquatic Therapy,Balance Training,Gait Training,Home Exercise Program,Joint Mobilizations,Manual Therapy, Neuromuscular Re-education, Orthotic/Prosthetic Management ,Patient/Caregiver Education, Self-Care/Home Management,Soft Tissue Mobilization,Taping, Therapeutic Activities, Therapeutic Exercises Modalities Cold Pack/Ice Massage,Electric Stimulation,Hot Packs, Infrared Therapy,Ultrasound Next Visit Focus/Plan Next Note Type Treatment Note Next Visit Plan Assess response to today's treatment, progress as tolerated with gentle stretching of chest, continued instruction in deep breathing for gentle rib mobilization.
--- NOTE | 2021-07-29 16:41 | PT.OTN ---
Current Diagnoses Sacroiliitis, not elsewhere classified (07/29/21) Precordial pain (07/29/21) Other abnormalities of gait and mobility (07/29/21) Abnormal posture (07/29/21) Weakness (07/29/21) Other reduced mobility (07/29/21) Physical Therapy Treatment Note PT-OP-A Visit Information Start: 05/15/21 07:31 Freq: Status: Active Protocol: Document 07/29/21 09:05 [facility] (Rec: 07/29/21 09:46 [facility] [id number]) Out-Patient Physical Therapy Visit Information Visit Information Visit Type Treatment Note Visit Note 09/14 Visit Start Time 09:03 Visit Stop Time 09:58 Total Visit Minutes 55 Visit Number 16 Number of HAND FUNNEL COATER Visits 0 PT-OP-B Current Condition Start: 05/15/21 07:31 Freq: Status: Active Protocol: Document 05/15/21 10:38 [facility] (Rec: 05/15/21 12:15 [facility] [id number]) Current Condition History of Current Condition Onset Date about 1 month ago Current Complaints SIJ pain and R hip pain & imbalance History of Current Condition Pt has history of chronic LBP and B foot pain w/history of falls and imbalance with multiple bouts of PT that have been successful at reducing pain in the past. Pt reports being sick the entire month of Mar w/. She started in Jan having costrocontritis. She was feeling better w/SI pain after PT last Jan. She had a hip injection in R hip in Feb. She had chest CT, EKG and it was negative. MD would not inject her d/t pt not getting CT of sternum as MD kept changing what was needed for injection. 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 She had the wrong day and yesterday got 3/[address] to [place] and realized it was wrong appt time. She is unsure when she will see her. She took her first dose of forest since she was off them while sick. She was taking methotrexate all along. She is still having sinus issues since being sick and is seeing allergy MD in [place] at end of month. She is not stable at all she feels and had difficulty w/on/off curbs. Pt reports R foot is so painful unless she has her shoes on. This just starteda bout a week ago so she needs to schedule to go backt o foot . reports she feels really unstable at night. Pt reports she is having hip issues again . Pt reports SIJ pain started about 3 weeks ago. It came on suddnely w/o any underlying causes. Denies any recent falls. Pt reports pain is not killing her but it very irritating and yesterday coccyx was killing me. She started Medaterrain diet she started and is noticing she is gaining weight and it didn't help w/pain. Has to sleep on heating pad at night. Once she gets up and is moving, it is better. Pt reports she no longer gardens. She feels like she will fall fwd if leaning fwd too much to garden and did fall last summer. Prior Treatments and Tests Mult bouts PT in past w/ improved pain Thoracic MRI 04/28: IMPRESSION: 1. Probable synovial cyst resulting in [id number] canal stenosis at C7-T1 can be further evaluated with MRI cervical spine with and without contrast 2. Thoracic dextroscoliosis and multilevel degenerative changes Lumbar CT 09/10/20: MPRESSION: Multilevel degenerative disc disease and arthropathy results in varying degrees of central and foraminal stenosis, including severe central stenosis at L3- 4. L4-5 and L5-S1 discectomy and fusion with posterior kimi and screw instrumentation in position. No hardware failure or loosening. Decompressive L4 and L5 laminectomies Treatment Goals Patient/Caregiver Goals be able to get up/down from a curb, feel more stable walking , improve pain and improve ability to sleep & sit down Personal Factors Other Personal Factors That May Effect MH: rheumatoid arthritis, GERD Therapy/Recovery , PE, depression, bilateral ankle fusion, left shoulder replacement 2018, right TKA , spinal fusion 10/24, Charcot foot gloria PT-OP-C Subjective Start: 05/15/21 07:31 Freq: Status: Active Protocol: Document 07/29/21 09:05 [facility] (Rec: 07/29/21 09:46 [facility] [id number]) OP-PT Subjective Patient Comments Patient Comments Ibuprofen calms down the pain so it is bearable, SI joints have flared up again, down to mid thighs. Sees Dr. Oconnor today after PT to discuss SI joints. Anterior chest still painful. Went to [employer] this weekend to help [id number] had food all weekend, was swollen and painful, diarrhea. Thinks due to white rice. Liked the supportive feel of the tape but had to remove due to itching. Planning to go to the pool tomorrow. States there was nowhere for her to do exercises at sister-in law' s. PT-OP-D Balance Start: 05/15/21 07:31 Freq: Status: Active Protocol: Document 06/26/21 09:02 [facility] (Rec: 06/26/21 12:04 [facility] [id number]) Balance Tests Ordoñez Balance Test Ordoñez Balance Test Score 40 PT-OP-F Manual Assessment Start: 05/15/21 07:31 Freq: Status: Active Protocol: Document 05/15/21 10:38 [facility] (Rec: 05/15/21 12:15 [facility] [id number]) Manual Assessments Soft Tissue Assessment Soft Tissue Mobility Assessment B glute, R>L QL, ES B, R iliacus tenderness PT-OP-G Mobility & Gait Start: 05/15/21 07:31 Freq: Status: Active Protocol: Document 05/15/21 10:38 [facility] (Rec: 05/15/21 12:15 [facility] [id number]) OP Mobility Evaluation Bed Mobility Rolling able to roll w/pain Supine to and from Sit pain OP Gait Assessment Comments Gait Comments Very stiff and appears unsteady, lat shift w/WB, dec push off, dec stride length B PT-OP-J Posture/Palpation/Skin Start: 05/15/21 07:31 Freq: Status: Active Protocol: Document 05/15/21 10:38 [facility] (Rec: 05/15/21 12:15 [facility] [id number]) Posture Evaluation Comments Posture Comments fwd flex w/inch kyphosis PT-OP-L Special Tests Start: 05/15/21 07:31 Freq: Status: Active Protocol: Document 05/15/21 10:38 [facility] (Rec: 05/15/21 12:15 [facility] [id number]) Special Tests Lumbar Spine Special Tests Slump Test Results neg B Straight Leg Raise Test Results neg b PT-OP-M Strength Start: 05/15/21 07:31 Freq: Status: Active Protocol: Document 05/15/21 10:38 [facility] (Rec: 05/15/21 12:15 [facility] [id number]) Hip Strength Hip Manual Muscle Testing Left Flexion (L2) 3+ Fair+ Abduction 3 Fair External Rotation 3+ Fair+ Internal Rotation 3+ Fair+ Right Flexion (L2) 3+ Fair+ Abduction 3 Fair External Rotation 3+ Fair+ Internal Rotation 3+ Fair+ Knee Strength Knee Manual Muscle Testing Right Flexion (S2) 4- Good- Extension (L3) 4- Good- Comments pain in SI w/ext Left Flexion (S2) 4- Good- Extension (L3) 4+ Good+ Ankle/Foot Strength Ankle and Foot Manual Muscle Testing Right Dorsiflexion (L4) 3+ Fair+ Plantarflexion (S1) 3+ Fair+ Left Dorsiflexion (L4) 3+ Fair+ Plantarflexion (S1) 3+ Fair+ Comments painPF PT-OP-Q Treatments Start: 05/15/21 07:31 Freq: Status: Active Protocol: Document 07/29/21 09:05 [facility] (Rec: 07/29/21 09:46 [facility] [id number]) Cardio Equipment Recumbent Stepper (Sci-Fit) Duration (Minutes) 10 Resistance 1 Seat Position 11 Therapeutic Exercises Supine Exercises deep breathing Supine Exercise Name diaphragm, lateral rib, chest Reps/Minutes 4 Comments verbal and tactile cues add Supine Exercise Name ball squeeze w/TA contraction Side bilateral Reps/Minutes 5 sec x10 Comments cues for breathing Sitting Exercises scapular retraction Reps/Minutes 10x Comments ball at mid thoracic spine shoulder ER Reps/Minutes 10x Comments postural cues HS Sitting Exercise Name stretch Reps/Minutes 2x30 Comments hip hinge piriformis stretch Side bilateral Reps/Minutes 2x30 Comments ankle on knee; push down, across body (PT assist) glut set Reps/Minutes 10x Comments cues for neutral LE's ball squeeze Reps/Minutes 10x cat/cow Reps/Minutes 5x Comments cues for pain free ROM deep breathing Sitting Exercise Name chest for upper rib expansion Reps/Minutes 5x2 Comments ball at thoracic spine, postural cues Manual Therapy Treatment Taping sternum Comments not done due to skin irritation previously Self-Care/Home Management Treatment Education Patient Education Home Exercise Program,Posture Other Education updated HEP for ex both for core and hip stab and postural correction, rib mobility with good understanding. PT-OP-R Modalities Start: 05/15/21 07:31 Freq: Status: Active Protocol: Document 07/29/21 09:05 [facility] (Rec: 07/29/21 16:40 [facility] [id number]) Hot Pack/Cold Pack Treatment Cold Pack Location gloria buttocks and low back, chest Treatment Duration (minutes) 10 PT-OP-S Aquatic Treatment Start: 07/14/21 14:44 Freq: Status: Active Protocol: Document 07/14/21 14:38 [facility] (Rec: 07/14/21 14:48 [facility] [id number]) Aquatics Treatment Pool Entry/Exit Pool Entry/Exit Method Lift Assistance Contact Guard Assistance, Verbal Cues Water Walking Sideways Water Level Chest Level Level of Assistance Verbal Cues forward Water Level Chest Level Level of Assistance Verbal Cues Comments arms in ER at sides for ant chest stretch Lower Extremity Exercises knee flex/ext Body Position Standing Water Level Neck Level Reps/Duration 10x hip ab/ad Body Position Standing Water Level Cameron Reps/Duration 10x Comments small movement Hip flex/ex Body Position Standing Water Level Cameron Reps/Duration 10x Comments small motions Spinal Exercises Wall squat DLS Body Position Sitting Water Level Neck Level Comments gloria and unil hor ab/ad Balance standing wt shift Details wt toes to heels, side to side subtle EO,EC Body Position Standing Water Level Chest Level Cameron Activities Other Activities Deep water walk SKTC (painful) DKTC Equipment flotation belt (L), small noodle Duration 20 PT-OP-T Assessment and Plan Start: 05/15/21 07:31 Freq: Status: Active Protocol: Document 07/29/21 09:05 [facility] (Rec: 07/29/21 09:46 [facility] [id number]) Physical Therapy Assessment Goals sternal pain Impairment pain sternum, costochondral junction Impairment limited UE use due to pain sternum, upper costochondral junctions left greater than right, swelling proximal sternum Jail Goal (LTG) Decrease pain to no greater than 2/10 with patient able to resume all activities including ADL's and usual functional activities without chest pain LTG Duration 08/15/21 stability Short Term Goal (STG) Pt will be able to safely ascend and descend a curb in order to be safe when in the community. 06/26-uses a cane and feels okay STG Duration 07/06/21 Elect[employer]edical Service Engineer Goal (LTG) Pt will feel comfortable navigating community with her . LTG Duration 08/15/21 pain Jail Goal (LTG) Pt will report SIJ, coccyx and R hip pain no greater than 2/ 10 on any given day for at least 2 week.s 06/26-5-08/15 LTG Duration 08/15/21 strength Short Term Goal (STG) pt will be indep w/HEP for core stability, hip stability, and balance. STG Duration achieved and advancing as tolerated Electromedical Service Engineer Goal (LTG) Pt will score at least 4/5 on all LE MMT to show improved strenght to improve pt mobility. LTG Duration 08/15/21 balance Impairment 35/56 Short Term Goal (STG) Pt will improve ORDOÑEZ balance score to at least 45 to show dec fall risk indoor 06/26-improved to 40 STG Duration 06/30/21 Jail Goal (LTG) Pt will improve ORDOÑEZ balance score to at least 50 to show dec fall risk in outdoors/ community. LTG Duration 08/15/21 One Impairment Unable to sit for more than one hour due to hip pain, and has difficulty sleeping and moving in bed due to pain in low back and buttock(wakes every 2 hours) Short Term Goal (STG) Pt will be able to do sit to stand from any surfaces w/o inc R hip or back pain. 06/26-no back pain but minor groin pain STG Duration 07/05/21 Electromedical Service Engineer Goal (LTG) pt will be able to sleep and lay down w/o LB/SIJ pain or R hip pain. 06/26- sleeping still painful LTG Duration 08/15/21 Assessment Summary Assessment extensive patient education regarding postural correction in sitting, cues for deep breathing for rib and chest expansion, seated core stab ex . Patient instructed in seated option for HEP to be able to work into her day without having to lay down. Demonstrated good understanding and patient reported decreased pain with breathing with improved posture. Physical Therapy Plan Frequency and Duration Frequency of Treatment 1-2x/week Duration of Treatment 3 months Plan of Care Start Date 05/15/21 Plan of Care End Date 08/15/21 Therapeutic Interventions Therapeutic Interventions Aquatic Therapy,Balance Training,Gait Training,Home Exercise Program,Joint Mobilizations,Manual Therapy, Neuromuscular Re-education, Orthotic/Prosthetic Management ,Patient/Caregiver Education, Self-Care/Home Management,Soft Tissue Mobilization,Taping, Therapeutic Activities, Therapeutic Exercises Modalities Cold Pack/Ice Massage,Electric Stimulation,Hot Packs, Infrared Therapy,Ultrasound Next Visit Focus/Plan Next Note Type Treatment Note Next Visit Plan Assess response to today's treatment, progress as tolerated with gentle stretching of chest, continued instruction in deep breathing for gentle rib mobilization. malcolm stabilization and flexibility.
--- NOTE | 2021-07-31 16:12 | PT.OTN ---
Current Diagnoses Sacroiliitis, not elsewhere classified (07/31/21) Precordial pain (07/31/21) Other abnormalities of gait and mobility (07/31/21) Abnormal posture (07/31/21) Weakness (07/31/21) Other reduced mobility (07/31/21) Physical Therapy Treatment Note PT-OP-A Visit Information Start: 05/15/21 07:31 Freq: Status: Active Protocol: Document 07/31/21 13:02 SAK (Rec: 07/31/21 13:49 SAK [id number]) Out-Patient Physical Therapy Visit Information Visit Information Visit Type Treatment Note Visit Note 10/15 Visit Start Time 13:00 Visit Stop Time 13:50 Total Visit Minutes 50 Visit Number 17 Number of NEW CAR GET READY MECHANIC Visits 0 PT-OP-B Current Condition Start: 05/15/21 07:31 Freq: Status: Active Protocol: Document 05/15/21 10:38 [facility] (Rec: 05/15/21 12:15 [facility] [id number]) Current Condition History of Current Condition Onset Date about 1 month ago Current Complaints SIJ pain and R hip pain & imbalance History of Current Condition Pt has history of chronic LBP and B foot pain w/history of falls and imbalance with multiple bouts of PT that have been successful at reducing pain in the past. Pt reports being sick the entire month of Mar w/. She started in Jan having costrocontritis. She was feeling better w/SI pain after PT last Jan. She had a hip injection in R hip in Feb. She had chest CT, EKG and it was negative. MD would not inject her d/t pt not getting CT of sternum as MD kept changing what was needed for injection. Pt hasn't seen ios software engineer for 6 months. She had the wrong day and yesterday got 3/[address] [place] and realized it was wrong appt time. She is unsure when she will see her. She took her first dose of forest since she was off them while sick. She was taking methotrexate all along. She is still having sinus issues since being sick and is seeing allergy MD in [place] at end of month. She is not stable at all she feels and had difficulty w/on/off curbs. Pt reports R foot is so painful unless she has her shoes on. This just starteda bout a week ago so she needs to schedule to go backt o foot . reports she feels really unstable at night. Pt reports she is having hip issues again . Pt reports SIJ pain started about 3 weeks ago. It came on suddnely w/o any underlying causes. Denies any recent falls. Pt reports pain is not killing her but it very irritating and yesterday coccyx was killing me. She started Medaterrain diet she started and is noticing she is gaining weight and it didn't help w/pain. Has to sleep on heating pad at night. Once she gets up and is moving, it is better. Pt reports she no longer gardens. She feels like she will fall fwd if leaning fwd too much to garden and did fall last summer. Prior Treatments and Tests Mult bouts PT in past w/ improved pain Thoracic MRI 04/28: IMPRESSION: 1. Probable synovial cyst resulting in [id number] canal stenosis at C7-T1 can be further evaluated with MRI cervical spine with and without contrast 2. Thoracic dextroscoliosis and multilevel degenerative changes Lumbar CT 09/10/20: MPRESSION: Multilevel degenerative disc disease and arthropathy results in varying degrees of central and foraminal stenosis, including severe central stenosis at L3- 4. L4-5 and L5-S1 discectomy and fusion with posterior kimi and screw instrumentation in position. No hardware failure or loosening. Decompressive L4 and L5 laminectomies Treatment Goals Patient/Caregiver Goals be able to get up/down from a curb, feel more stable walking , improve pain and improve ability to sleep & sit down Personal Factors Other Personal Factors That May Effect MH: rheumatoid arthritis, GERD Therapy/Recovery , PE, depression, bilateral ankle fusion, left shoulder replacement 2018, right TKA , spinal fusion 10/24, Charcot foot gloria PT-OP-C Subjective Start: 05/15/21 07:31 Freq: Status: Active Protocol: Document 07/31/21 13:02 [facility] (Rec: 07/31/21 13:49 [facility] [id number]) OP-PT Subjective Patient Comments Patient Comments Saw new ios software engineer, having MRI of hands for further diagnostics regarding RA. No change in medications, keep off Prednisone due to muscle loss due to this over the years. Recommended continued PT and aquatic exercise, stay on Ibuprofen, supports anti- inflammatory diet. Chest felt pretty good after PT last session. Saw Dr. Oconnor, is going to wait for further injection. PT-OP-D Balance Start: 05/15/21 07:31 Freq: Status: Active Protocol: Document 06/26/21 09:02 [facility] (Rec: 06/26/21 12:04 [facility] [id number]) Balance Tests Ordoñez Balance Test Ordoñez Balance Test Score 40 PT-OP-F Manual Assessment Start: 05/15/21 07:31 Freq: Status: Active Protocol: Document 05/15/21 10:38 [facility] (Rec: 05/15/21 12:15 [facility] [id number]) Manual Assessments Soft Tissue Assessment Soft Tissue Mobility Assessment B glute, R>L QL, ES B, R iliacus tenderness PT-OP-G Mobility & Gait Start: 05/15/21 07:31 Freq: Status: Active Protocol: Document 05/15/21 10:38 [facility] (Rec: 05/15/21 12:15 [facility] [id number]) OP Mobility Evaluation Bed Mobility Rolling able to roll w/pain Supine to and from Sit pain OP Gait Assessment Comments Gait Comments Very stiff and appears unsteady, lat shift w/WB, dec push off, dec stride length B PT-OP-J Posture/Palpation/Skin Start: 05/15/21 07:31 Freq: Status: Active Protocol: Document 05/15/21 10:38 [facility] (Rec: 05/15/21 12:15 [facility] [id number]) Posture Evaluation Comments Posture Comments fwd flex w/inch kyphosis PT-OP-L Special Tests Start: 05/15/21 07:31 Freq: Status: Active Protocol: Document 05/15/21 10:38 [facility] (Rec: 05/15/21 12:15 [facility] [id number]) Special Tests Lumbar Spine Special Tests Slump Test Results neg B Straight Leg Raise Test Results neg b PT-OP-M Strength Start: 05/15/21 07:31 Freq: Status: Active Protocol: Document 05/15/21 10:38 [facility] (Rec: 05/15/21 12:15 [facility] [id number]) Hip Strength Hip Manual Muscle Testing Left Flexion (L2) 3+ Fair+ Abduction 3 Fair External Rotation 3+ Fair+ Internal Rotation 3+ Fair+ Right Flexion (L2) 3+ Fair+ Abduction 3 Fair External Rotation 3+ Fair+ Internal Rotation 3+ Fair+ Knee Strength Knee Manual Muscle Testing Right Flexion (S2) 4- Good- Extension (L3) 4- Good- Comments pain in SI w/ext Left Flexion (S2) 4- Good- Extension (L3) 4+ Good+ Ankle/Foot Strength Ankle and Foot Manual Muscle Testing Right Dorsiflexion (L4) 3+ Fair+ Plantarflexion (S1) 3+ Fair+ Left Dorsiflexion (L4) 3+ Fair+ Plantarflexion (S1) 3+ Fair+ Comments painPF PT-OP-Q Treatments Start: 05/15/21 07:31 Freq: Status: Active Protocol: Document 07/31/21 13:02 [facility] (Rec: 07/31/21 13:49 [facility] [id number]) Cardio Equipment Recumbent Stepper (Sci-Fit) Duration (Minutes) 10 Resistance 1 Seat Position 12 Therapeutic Exercises Supine Exercises deep breathing Supine Exercise Name diaphragm, lateral rib, chest Reps/Minutes 4 Comments verbal and tactile cues add Supine Exercise Name ball squeeze w/TA contraction Side bilateral Reps/Minutes 5 sec x10 Comments cues for breathing Sitting Exercises upper trunk rotation Reps/Minutes 2x30 Comments gentle, cues for deep breathing thoracic extension Reps/Minutes 10x Comments sitting on blue foam, green ball at thoracici spine, cues deep br scapular retraction Reps/Minutes 10x Comments ball at mid thoracic spine shoulder ER Reps/Minutes 10x Comments postural cues HS Sitting Exercise Name stretch Reps/Minutes 2x30 Comments hip hinge piriformis stretch Side bilateral Reps/Minutes 2x30 Comments ankle on knee; push down, across body (PT assist) glut set Reps/Minutes 10x Comments cues for neutral LE's ball squeeze Reps/Minutes 10x cat/cow Reps/Minutes 5x Comments cues for pain free ROM deep breathing Sitting Exercise Name chest for upper rib expansion Reps/Minutes 5x2 Comments ball at thoracic spine, postural cues sit to stand Reps/Minutes 10x Comments blue foam to sit on for raising chair height, cues for alignment, core Self-Care/Home Management Treatment Education Patient Education Posture Other Education deep breathing for pain management, relaxation PT-OP-R Modalities Start: 05/15/21 07:31 Freq: Status: Active Protocol: Document 07/31/21 13:02 [facility] (Rec: 07/31/21 13:49 [facility] [id number]) Hot Pack/Cold Pack Treatment Cold Pack Location gloria buttocks and low back, left chest Treatment Duration (minutes) 10 PT-OP-S Aquatic Treatment Start: 07/14/21 14:44 Freq: Status: Active Protocol: Document 07/14/21 14:38 [facility] (Rec: 07/14/21 14:48 [facility] [id number]) Aquatics Treatment Pool Entry/Exit Pool Entry/Exit Method Lift Assistance Contact Guard Assistance, Verbal Cues Water Walking Sideways Water Level Chest Level Level of Assistance Verbal Cues forward Water Level Chest Level Level of Assistance Verbal Cues Comments arms in ER at sides for ant chest stretch Lower Extremity Exercises knee flex/ext Body Position Standing Water Level Neck Level Reps/Duration 10x hip ab/ad Body Position Standing Water Level [place] Reps/Duration 10x Comments small movement Hip flex/ex Body Position Standing Water Level [place] Reps/Duration 10x Comments small motions Spinal Exercises Wall squat DLS Body Position Sitting Water Level Neck Level Comments gloria and unil hor ab/ad Balance standing wt shift Details wt toes to heels, side to side subtle EO,EC Body Position Standing Water Level Chest Level [place] Activities Other Activities Deep water walk SKTC (painful) DKTC Equipment flotation belt (L), small noodle Duration 20 PT-OP-T Assessment and Plan Start: 05/15/21 07:31 Freq: Status: Active Protocol: Document 07/31/21 13:02 [facility] (Rec: 07/31/21 13:49 [facility] [id number]) Physical Therapy Assessment Goals sternal pain Impairment pain sternum, costochondral junction Impairment limited UE use due to pain sternum, upper costochondral junctions left greater than right, swelling proximal sternum Feeder Switchboard Operator Goal (LTG) Decrease pain to no greater than 2/10 with patient able to resume all activities including ADL's and usual functional activities without chest pain LTG Duration 08/15/21 stability Short Term Goal (STG) Pt will be able to safely ascend and descend a curb in order to be safe when in the community. 06/26-uses a cane and feels okay STG Duration 07/06/21 Feeder Switchboard Operator Goal (LTG) Pt will feel comfortable navigating community with her . LTG Duration 08/15/21 pain Intermediate Goal (LTG) Pt will report SIJ, coccyx and R hip pain no greater than 2/ 10 on any given day for at least 2 week.s 06/26--08/15 LTG Duration 08/15/21 strength Short Term Goal (STG) pt will be indep w/HEP for core stability, hip stability, and balance. STG Duration achieved and advancing as tolerated Feeder Switchboard Operator Goal (LTG) Pt will score at least 4/5 on all LE MMT to show improved strenght to improve pt mobility. LTG Duration 08/15/21 balance Impairment 35/56 Short Term Goal (STG) Pt will improve ORDOÑEZ balance score to at least 45 to show dec fall risk indoor 06/26-improved to 40 STG Duration 06/30/21 Feeder Switchboard Operator Goal (LTG) Pt will improve ORDOÑEZ balance score to at least 50 to show dec fall risk in outdoors/ community. LTG Duration 08/15/21 One Impairment Unable to sit for more than one hour due to hip pain, and has difficulty sleeping and moving in bed due to pain in low back and buttock(wakes every 2 hours) Short Term Goal (STG) Pt will be able to do sit to stand from any surfaces w/o inc R hip or back pain. 06/26-no back pain but minor groin pain STG Duration 07/05/21 Feeder Switchboard Operator Goal (LTG) pt will be able to sleep and lay down w/o LB/SIJ pain or R hip pain. 06/26- sleeping still painful LTG Duration 08/15/21 Assessment Summary Assessment Improved chest pain with last PT session, increased again today but becoming more aware of postural effects on the pain, benefits of deep breathing, gentle ROM and postural exercises. Patient with continued c/o right hip pain, worked on shortening stride and activating gluteals for improved stability and dec limp with gait which arises due to foot pain. Patient to return to aquatic exercise per ios software engineer recommendation and consult again with fancy needleworker regarding anti-inflammatory diet. Physical Therapy Plan Frequency and Duration Frequency of Treatment 1-2x/week Duration of Treatment 3 months Plan of Care Start Date 05/15/21 Plan of Care End Date 08/15/21 Therapeutic Interventions Therapeutic Interventions Aquatic Therapy,Balance Training,Gait Training,Home Exercise Program,Joint Mobilizations,Manual Therapy, Neuromuscular Re-education, Orthotic/Prosthetic Management ,Patient/Caregiver Education, Self-Care/Home Management,Soft Tissue Mobilization,Taping, Therapeutic Activities, Therapeutic Exercises Modalities Cold Pack/Ice Massage,Electric Stimulation,Hot Packs, Infrared Therapy,Ultrasound Next Visit Focus/Plan Next Note Type Treatment Note Next Visit Plan Progression of gentle postural correction, rib mobility exercises and possibly manual techniques. Work on sit to stand mechanics and muscle activation and gait mechanics. Manual therapy and modalities as needed for pain control, decreased muscle tension.
--- NOTE | 2021-08-06 13:05 | PT.OTRE ---
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) Hx of spinal fusion (10/09/18) Hx of tonsillectomy (07/27/1967) Surgical History (Last Reviewed 04/28/21 @ 10:33 by Samuel Goodson MD) H/O eye surgery (02/05/1958) H/O total hysterectomy (05/06/00) History of cholecystectomy (02/05/98) History of knee surgery (05/05/10) 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 (Rec: 08/06/21 10:06 [facility] [id number]) Out-Patient Physical Therapy Visit Information Visit Information Visit Type Re-Evaluation Visit Note 03/17 Visit Start Time 09:49 Visit Stop Time 10:40 Total Visit Minutes 51 Visit Number 18 Number of LEARNING ANALYST Visits 0 PT-OP-B Current Condition Start: 05/15/21 07:31 Freq: Status: Active Protocol: Document 08/06/21 09:56 [facility] (Rec: 08/06/21 10:22 [facility] [id number]) Current Condition History of Current Condition Onset Date about 1 month ago Current Complaints SIJ pain and R hip pain & imbalance History of Current Condition 08/06-has had further testing of CT of chest and has not gotten injections or treatment of it. Another MD decided it was not worth getting a MRI for. It has now been 7 months since this pain started and was worsened w/brochontitis. Since taking 800 mg of ibu 3x/ day for past 2 weeks, she has noticed some improvement. Chest is made worst by bending over, deep breathing, sneezing and at night in bed. IE:Pt has history of chronic LBP and B foot pain w/history of falls and imbalance with multiple bouts of PT that have been successful at reducing pain in the past. Pt reports being sick the entire month of Mar w/brochi. She started in Jan having costrocontritis. She was feeling better w/SI pain after PT last Jan. She had a hip injection in R hip in Feb. She had chest CT, EKG and it was negative. MD would not inject her d/t pt not getting CT of sternum as MD kept changing what was needed for injection. Pt hasn't seen sand cleaning machine operator for 6 months. She had the wrong day and yesterday got 3/[address] to [place] and realized it was wrong appt time. She is unsure when she will see her. She took her first dose of forest since she was off them while sick. She was taking methotrexate all along. She is still having sinus issues since being sick and is seeing allergy MD in [place] at end of month. She is not stable at all she feels and had difficulty w/on/off curbs. Pt reports R foot is so painful unless she has her shoes on. This just starteda bout a week ago so she needs to schedule to go backt o foot MD. reports she feels really unstable at night. Pt reports she is having hip issues again . Pt reports SIJ pain started about 3 weeks ago. It came on suddnely w/o any underlying causes. Denies any recent falls. Pt reports pain is not killing her but it very irritating and yesterday coccyx was killing me. She started Medaterrain diet she started and is noticing she is gaining weight and it didn't help w/pain. Has to sleep on heating pad at night. Once she gets up and is moving, it is better. Pt reports she no longer gardens. She feels like she will fall fwd if leaning fwd too much to garden and did fall last summer. Prior Treatments and Tests Mult bouts PT in past w/ improved pain Thoracic MRI 04/28: IMPRESSION: 1. 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 Thoracic dextroscoliosis and multilevel degenerative changes Lumbar CT 09/10/20: MPRESSION: Multilevel degenerative disc disease and arthropathy results in varying degrees of central and foraminal stenosis, including severe central stenosis at L3- 4. L4-5 and L5-S1 discectomy and fusion with posterior kimi and screw instrumentation in position. No hardware failure or loosening. Decompressive L4 and L5 laminectomies PT-OP-C Subjective Start: 05/15/21 07:31 Freq: Status: Active Protocol: Document 08/06/21 09:56 [facility] (Rec: 08/06/21 10:06 [facility] [id number]) OP-PT Subjective Patient Comments Patient Comments Pt reports she feels like she is so weak and has so much trouble standing and doing leg lifts. Pt is on 800mg of ibu 3x/day per primary so she feels like it helps more than RA meds PT-OP-D Balance Start: 05/15/21 07:31 Freq: Status: Active Protocol: Document 08/06/21 09:56 [facility] (Rec: 08/06/21 10:22 [facility] [id number]) Balance Tests Ordoñez Balance Test Ordoñez Balance Test Score 38 PT-OP-F Manual Assessment Start: 05/15/21 07:31 Freq: Status: Active Protocol: Document 05/15/21 10:38 [facility] (Rec: 05/15/21 12:15 [facility] [id number]) Manual Assessments Soft Tissue Assessment Soft Tissue Mobility Assessment B glute, R>L QL, ES B, R iliacus tenderness PT-OP-G Mobility & Gait Start: 05/15/21 07:31 Freq: Status: Active Protocol: Document 05/15/21 10:38 [facility] (Rec: 05/15/21 12:15 [facility] [id number]) OP Mobility Evaluation Bed Mobility Rolling able to roll w/pain Supine to and from Sit pain OP Gait Assessment Comments Gait Comments Very stiff and appears unsteady, lat shift w/WB, dec push off, dec stride length B PT-OP-J Posture/Palpation/Skin Start: 05/15/21 07:31 Freq: Status: Active Protocol: Document 05/15/21 10:38 [facility] (Rec: 05/15/21 12:15 [facility] [id number]) Posture Evaluation Comments Posture Comments fwd flex w/inch kyphosis PT-OP-K Range of Motion Start: 05/15/21 07:31 Freq: Status: Active Protocol: Document 08/06/21 09:56 [facility] (Rec: 08/06/21 10:22 [facility] [id number]) Lumbar Spine Range of Motion Lumbar Spine Active Degrees Rotation Left 56 Rotation Right 54 Comments thoracolumbar rotation PT-OP-L Special Tests Start: 05/15/21 07:31 Freq: Status: Active Protocol: Document 05/15/21 10:38 [facility] (Rec: 05/15/21 12:15 [facility] [id number]) Special Tests Lumbar Spine Special Tests Slump Test Results neg B Straight Leg Raise Test Results neg b PT-OP-M Strength Start: 05/15/21 07:31 Freq: Status: Active Protocol: Document 05/15/21 10:38 [facility] (Rec: 05/15/21 12:15 [facility] [id number]) Hip Strength Hip Manual Muscle Testing Left Flexion (L2) 3+ Fair+ Abduction 3 Fair External Rotation 3+ Fair+ Internal Rotation 3+ Fair+ Right Flexion (L2) 3+ Fair+ Abduction 3 Fair External Rotation 3+ Fair+ Internal Rotation 3+ Fair+ Knee Strength Knee Manual Muscle Testing Right Flexion (S2) 4- Good- Extension (L3) 4- Good- Comments pain in SI w/ext Left Flexion (S2) 4- Good- Extension (L3) 4+ Good+ Ankle/Foot Strength Ankle and Foot Manual Muscle Testing Right Dorsiflexion (L4) 3+ Fair+ Plantarflexion (S1) 3+ Fair+ Left Dorsiflexion (L4) 3+ Fair+ Plantarflexion (S1) 3+ Fair+ Comments painPF PT-OP-Q Treatments Start: 05/15/21 07:31 Freq: Status: Active Protocol: Document 08/06/21 09:56 [facility] (Rec: 08/06/21 10:06 [facility] [id number]) Cardio Equipment Recumbent Stepper (Sci-Fit) Duration (Minutes) 10 Resistance 1 Seat Position 11 Manual Therapy Treatment Soft Tissue Mobilization glutes Body Location R glutes lat & sup & along sacral border Mobilization Type Strumming,Sustained Pressure Intensity/Depth Moderate Body Position Sidelying right piriformis Body Location piriformis Mobilization Type Myofascial Release,Sustained Pressure,Trigger Point Release Intensity/Depth Moderate Body Position left sidelying Comments lateral sacral border PT-OP-R Modalities Start: 05/15/21 07:31 Freq: Status: Active Protocol: Document 07/31/21 13:02 [facility] (Rec: 07/31/21 13:49 [facility] [id number]) Hot Pack/Cold Pack Treatment Cold Pack Location gloria buttocks and low back, left chest Treatment Duration (minutes) 10 PT-OP-T Assessment and Plan Start: 05/15/21 07:31 Freq: Status: Active Protocol: Document 08/06/21 09:56 [facility] (Rec: 08/06/21 10:06 [facility] [id number]) Physical Therapy Assessment Goals sternal pain Impairment pain sternum, costochondral junction Impairment limited UE use due to pain sternum, upper costochondral junctions left greater than right, swelling proximal sternum Account Support Analyst Goal (LTG) Decrease pain to no greater than 2/10 with patient able to resume all activities including ADL's and usual functional activities without chest pain LTG Duration 10/06/21 stability Short Term Goal (STG) Pt will be able to safely ascend and descend a curb in order to be safe when in the community. 06/26-uses a cane and feels okay STG Duration 07/06/21 Mcfp Goal (LTG) Pt will feel comfortable navigating community with her . 08/06-does not feel like she has the stability and strength right now LTG Duration 10/06/21 pain Account Support Analyst Goal (LTG) Pt will report SIJ, coccyx and R hip pain no greater than 2/ 10 on any given day for at least 2 week.s 06/26-5-08/15 08/06-06/15 LTG Duration 10/06/21 strength Short Term Goal (STG) pt will be indep w/HEP for core stability, hip stability, and balance. STG Duration achieved and advancing as tolerated Account Support Analyst Goal (LTG) Pt will score at least 4/5 on all LE MMT to show improved strenght to improve pt mobility. LTG Duration 10/06/21 balance Impairment 35/56 Short Term Goal (STG) Pt will improve ORDOÑEZ balance score to at least 45 to show dec fall risk indoor 06/26-improved to 40 08/06-38 STG Duration 09/05 Account Support Analyst Goal (LTG) Pt will improve ORDOÑEZ balance score to at least 50 to show dec fall risk in outdoors/ community. LTG Duration 10/06 One Impairment Unable to sit for more than one hour due to hip pain, and has difficulty sleeping and moving in bed due to pain in low back and buttock(wakes every 2 hours) Short Term Goal (STG) Pt will be able to do sit to stand from any surfaces w/o inc R hip or back pain. 06/26-no back pain but minor groin pain 08/06- still some pain in R hip STG Duration 09/05/21 Account Support Analyst Goal (LTG) pt will be able to sleep and lay down w/o LB/SIJ pain or R hip pain. 06/26- sleeping still painful 08/06-with ibuprofen and sleeping pill she does okay and occ has to use heating pads LTG Duration 10/06/21 Assessment Summary Assessment Pt is now being seen for sternal pain that origninated 7 months ago along w/SIJ, lumbar and R hip pain and balance. She continues to have difficulty w/these activities likely partly d/t gait mechanis d/t the break down of her foot structure which is followed by integrated circuit layout designer. She has dec core control and impaired posture which she is working on w/PT to help dec pain. She cont to require assist with working on these goals and will require further work at [facility] to dec pain and improve pt function. Physical Therapy Plan Frequency and Duration Frequency of Treatment 1-2x/week Duration of Treatment 2 months Plan of Care Start Date 08/06/21 Plan of Care End Date 10/06/21 Therapeutic Interventions Therapeutic Interventions Aquatic Therapy,Balance Training,Gait Training,Home Exercise Program,Joint Mobilizations,Manual Therapy, Neuromuscular Re-education, Orthotic/Prosthetic Management ,Patient/Caregiver Education, Self-Care/Home Management,Soft Tissue Mobilization,Taping, Therapeutic Activities, Therapeutic Exercises Modalities Cold Pack/Ice Massage,Electric Stimulation,Hot Packs, Infrared Therapy,Ultrasound Next Visit Focus/Plan Next Note Type Treatment Note Next Visit Plan Progression of gentle postural correction, rib mobility exercises and possibly manual techniques. Work on sit to stand mechanics and muscle activation and gait mechanics. Manual therapy and modalities as needed for pain control, decreased muscle tension.
--- NOTE | 2021-08-06 13:05 | PT.OPPOC ---
Physical, Occupational & Speech Therapy At [facility] Current Diagnoses Sacroiliitis, not elsewhere classified (08/06/21) Precordial pain (08/06/21) Other abnormalities of gait and mobility (08/06/21) Abnormal posture (08/06/21) Weakness (08/06/21) Other reduced mobility (08/06/21) Visit Care Team Role Provider Type Ellie Fountain PA-C Attending Provider Non-Staff Family Provider Primary Care Provider Referring Provider Specialty: Internal Medicine Address: [address] [place] [address], [facility] Email: [email or web address] Plan Of Care PT-OP-T Assessment and Plan Start: 05/15/21 07:31 Freq: Status: Active Protocol: Document 08/06/21 09:56 [facility] (Rec: 08/06/21 10:06 [facility] [id number]) Physical Therapy Assessment Goals sternal pain Impairment pain sternum, costochondral junction Impairment limited UE use due to pain sternum, upper costochondral junctions left greater than right, swelling proximal sternum Residential Goal (LTG) Decrease pain to no greater than 2/10 with patient able to resume all activities including ADL's and usual functional activities without chest pain LTG Duration 10/06/21 stability Short Term Goal (STG) Pt will be able to safely ascend and descend a curb in order to be safe when in the community. 06/26-uses a cane and feels okay STG Duration 07/06/21 Gas Technician Goal (LTG) Pt will feel comfortable navigating community with her . 08/06-does not feel like she has the stability and strength right now LTG Duration 10/06/21 pain Residential Goal (LTG) Pt will report SIJ, coccyx and R hip pain no greater than 2/ 10 on any given day for at least 2 week.s 06/26-5-08/15 08/06-06/15 LTG Duration 10/06/21 strength Short Term Goal (STG) pt will be indep w/HEP for core stability, hip stability, and balance. STG Duration achieved and advancing as tolerated Gas Technician Goal (LTG) Pt will score at least 4/5 on all LE MMT to show improved strenght to improve pt mobility. LTG Duration 10/06/21 balance Impairment 35/56 Short Term Goal (STG) Pt will improve ORDOÑEZ balance score to at least 45 to show dec fall risk indoor 06/26-improved to 40 08/06-38 STG Duration 09/05 Residential Goal (LTG) Pt will improve ORDOÑEZ balance score to at least 50 to show dec fall risk in outdoors/ community. LTG Duration 10/06 One Impairment Unable to sit for more than one hour due to hip pain, and has difficulty sleeping and moving in bed due to pain in low back and buttock(wakes every 2 hours) Short Term Goal (STG) Pt will be able to do sit to stand from any surfaces w/o inc R hip or back pain. 06/26-no back pain but minor groin pain 08/06- still some pain in R hip STG Duration 09/05/21 Gas Technician Goal (LTG) pt will be able to sleep and lay down w/o LB/SIJ pain or R hip pain. 06/26- sleeping still painful 08/06-with ibuprofen and sleeping pill she does okay and occ has to use heating pads LTG Duration 10/06/21 Assessment Summary Assessment Pt is now being seen for sternal pain that origninated 7 months ago along w/SIJ, lumbar and R hip pain and balance. She continues to have difficulty w/these activities likely partly d/t gait mechanis d/t the break down of her foot structure which is followed by utility locator. She has dec core control and impaired posture which she is working on w/PT to help dec pain. She cont to require assist with working on these goals and will require further work at [facility] to dec pain and improve pt function. Physical Therapy Plan Frequency and Duration Frequency of Treatment 1-2x/week Duration of Treatment 2 months Plan of Care Start Date 08/06/21 Plan of Care End Date 10/06/21 Therapeutic Interventions Therapeutic Interventions Aquatic Therapy,Balance Training,Gait Training,Home Exercise Program,Joint Mobilizations,Manual Therapy, Neuromuscular Re-education, Orthotic/Prosthetic Management ,Patient/Caregiver Education, Self-Care/Home Management,Soft Tissue Mobilization,Taping, Therapeutic Activities, Therapeutic Exercises Modalities Cold Pack/Ice Massage,Electric Stimulation,Hot Packs, Infrared Therapy,Ultrasound Next Visit Focus/Plan Next Note Type Treatment Note Next Visit Plan Progression of gentle postural correction, rib mobility exercises and possibly manual techniques. Work on sit to stand mechanics and muscle activation and gait mechanics. Manual therapy and modalities as needed for pain control, decreased muscle tension. Plan of Care Dates Plan of Care Start Date 08/06/21 Plan of Care End Date 10/06/21 Electronically Signed by: Debbie Beyer, PT 08/06/21 3995 If you are in agreement with this Plan of Care, please return a signed and dated copy. I have reviewed this Plan of Care and certify that the skilled therapy services above are required to meet the patient?s needs. Physician Signature Date Printed Name and Credentials Clinical Instructor Signature Printed Name and Credentials
--- NOTE | 2021-08-12 14:27 | PT.OTN ---
Current Diagnoses Sacroiliitis, not elsewhere classified (08/11/21) Precordial pain (08/11/21) Other abnormalities of gait and mobility (08/11/21) Abnormal posture (08/11/21) Weakness (08/11/21) Other reduced mobility (08/11/21) Physical Therapy Treatment Note PT-OP-A Visit Information Start: 05/15/21 07:31 Freq: Status: Active Protocol: Document 08/11/21 14:[address] [facility] (Rec: 08/12/21 14:[address] [facility] [id number]) Out-Patient Physical Therapy Visit Information Visit Information Visit Type Treatment Note Visit Note 04/17 Visit Start Time 12:30 Visit Stop Time 13:15 Total Visit Minutes 45 Visit Number 19 PT-OP-B Current Condition Start: 05/15/21 07:31 Freq: Status: Active Protocol: Document 08/11/21 14:[address] [facility] (Rec: 08/12/21 14:[address] [facility] [id number]) Current Condition History of Current Condition Onset Date about 1 month ago Current Complaints SIJ pain and R hip pain & imbalance History of Current Condition 08/06-has had further testing of CT of chest and has not gotten injections or treatment of it. Another MD decided it was not worth getting a MRI for. It has now been 7 months since this pain started and was worsened w/brochontitis. Since taking 800 mg of ibu 3x/ day for past 2 weeks, she has noticed some improvement. Chest is made worst by bending over, deep breathing, sneezing and at night in bed. IE:Pt has history of chronic LBP and B foot pain w/history of falls and imbalance with multiple bouts of PT that have been successful at reducing pain in the past. Pt reports being sick the entire month of Mar w/brochitis. She started in Jan having costrocontritis. She was feeling better w/SI pain after PT last Jan. She had a hip injection in R hip in Feb. She had chest CT, EKG and it was negative. MD would not inject her d/t pt not getting CT of sternum as MD kept changing what was needed for injection. Pt hasn't seen director medicaid for 6 months. She had the wrong day and yesterday got 3/[address] to [place] and realized it was wrong appt time. She is unsure when she will see her. She took her first dose of forest since she was off them while sick. She was taking methotrexate all along. She is still having sinus issues since being sick and is seeing allergy MD in [place] at end of month. She is not stable at all she feels and had difficulty w/on/off curbs. Pt reports R foot is so painful unless she has her shoes on. This just starteda bout a week ago so she needs to schedule to go backt o foot MD. reports she feels really unstable at night. Pt reports she is having hip issues again . Pt reports SIJ pain started about 3 weeks ago. It came on suddnely w/o any underlying causes. Denies any recent falls. Pt reports pain is not killing her but it very irritating and yesterday coccyx was killing me. She started Medaterrain diet she started and is noticing she is gaining weight and it didn't help w/pain. Has to sleep on heating pad at night. Once she gets up and is moving, it is better. Pt reports she no longer gardens. She feels like she will fall fwd if leaning fwd too much to garden and did fall last summer. Prior Treatments and Tests Mult bouts PT in past w/ improved pain Thoracic MRI 04/28: IMPRESSION: 1. Probable synovial cyst resulting in [id number] canal stenosis at C7-T1 can be further evaluated with MRI cervical spine with and without contrast 2. Thoracic dextroscoliosis and multilevel degenerative changes Lumbar CT 09/10/20: MPRESSION: Multilevel degenerative disc disease and arthropathy results in varying degrees of central and foraminal stenosis, including severe central stenosis at L3- 4. L4-5 and L5-S1 discectomy and fusion with posterior kimi and screw instrumentation in position. No hardware failure or loosening. Decompressive L4 and L5 laminectomies PT-OP-C Subjective Start: 05/15/21 07:31 Freq: Status: Active Protocol: Document 08/11/21 14:[address] [facility] (Rec: 08/12/21 14:[address] [facility] [id number]) OP-PT Subjective Patient Comments Patient Comments Reports when at pool by herself last Wednesday she stumbled over open floor drain cover that was open on deck; didn't fall but the startle as well as stress over almost falling may have contributed to her hurting a lot that evening. Some better today. PT-OP-D Balance Start: 05/15/21 07:31 Freq: Status: Active Protocol: Document 08/06/21 09:56 [facility] (Rec: 08/06/21 10:22 [facility] [id number]) Balance Tests Ordoñez Balance Test Ordoñez Balance Test Score 38 PT-OP-F Manual Assessment Start: 05/15/21 07:31 Freq: Status: Active Protocol: Document 05/15/21 10:38 [facility] (Rec: 05/15/21 12:15 [facility] [id number]) Manual Assessments Soft Tissue Assessment Soft Tissue Mobility Assessment B glute, R>L QL, ES B, R iliacus tenderness PT-OP-G Mobility & Gait Start: 05/15/21 07:31 Freq: Status: Active Protocol: Document 05/15/21 10:38 [facility] (Rec: 05/15/21 12:15 [facility] [id number]) OP Mobility Evaluation Bed Mobility Rolling able to roll w/pain Supine to and from Sit pain OP Gait Assessment Comments Gait Comments Very stiff and appears unsteady, lat shift w/WB, dec push off, dec stride length B PT-OP-J Posture/Palpation/Skin Start: 05/15/21 07:31 Freq: Status: Active Protocol: Document 05/15/21 10:38 [facility] (Rec: 05/15/21 12:15 [facility] [id number]) Posture Evaluation Comments Posture Comments fwd flex w/inch kyphosis PT-OP-K Range of Motion Start: 05/15/21 07:31 Freq: Status: Active Protocol: Document 08/06/21 09:56 [facility] (Rec: 08/06/21 10:22 [facility] [id number]) Lumbar Spine Range of Motion Lumbar Spine Active Degrees Rotation Left 56 Rotation Right 54 Comments thoracolumbar rotation PT-OP-L Special Tests Start: 05/15/21 07:31 Freq: Status: Active Protocol: Document 05/15/21 10:38 [facility] (Rec: 05/15/21 12:15 [facility] [id number]) Special Tests Lumbar Spine Special Tests Slump Test Results neg B Straight Leg Raise Test Results neg b PT-OP-M Strength Start: 05/15/21 07:31 Freq: Status: Active Protocol: Document 05/15/21 10:38 [facility] (Rec: 05/15/21 12:15 [facility] [id number]) Hip Strength Hip Manual Muscle Testing Left Flexion (L2) 3+ Fair+ Abduction 3 Fair External Rotation 3+ Fair+ Internal Rotation 3+ Fair+ Right Flexion (L2) 3+ Fair+ Abduction 3 Fair External Rotation 3+ Fair+ Internal Rotation 3+ Fair+ Knee Strength Knee Manual Muscle Testing Right Flexion (S2) 4- Good- Extension (L3) 4- Good- Comments pain in SI w/ext Left Flexion (S2) 4- Good- Extension (L3) 4+ Good+ Ankle/Foot Strength Ankle and Foot Manual Muscle Testing Right Dorsiflexion (L4) 3+ Fair+ Plantarflexion (S1) 3+ Fair+ Left Dorsiflexion (L4) 3+ Fair+ Plantarflexion (S1) 3+ Fair+ Comments painPF PT-OP-Q Treatments Start: 05/15/21 07:31 Freq: Status: Active Protocol: Document 08/06/21 09:56 [facility] (Rec: 08/06/21 10:06 [facility] [id number]) Cardio Equipment Recumbent Stepper (Sci-Fit) Duration (Minutes) 10 Resistance 1 Seat Position 11 Manual Therapy Treatment Soft Tissue Mobilization glutes Body Location R glutes lat & sup & along sacral border Mobilization Type Strumming,Sustained Pressure Intensity/Depth Moderate Body Position Sidelying right piriformis Body Location piriformis Mobilization Type Myofascial Release,Sustained Pressure,Trigger Point Release Intensity/Depth Moderate Body Position left sidelying Comments lateral sacral border PT-OP-R Modalities Start: 05/15/21 07:31 Freq: Status: Active Protocol: Document 07/31/21 13:[address] [facility] (Rec: 07/31/21 13:[address] [facility] [id number]) Hot Pack/Cold Pack Treatment Cold Pack Location gloria buttocks and low back, left chest Treatment Duration (minutes) 10 PT-OP-S Aquatic Treatment Start: 07/14/21 14:44 Freq: Status: Active Protocol: Document 08/11/21 14:[address] [facility] (Rec: 08/12/21 14:[address] [facility] [id number]) Aquatics Treatment Pool Entry/Exit Pool Entry/Exit Method Lift Assistance Contact Guard Assistance, Verbal Cues Water Walking forward Water Level Chest Level Level of Assistance Verbal Cues Comments cues for smaller steps, gluteal activation Lower Extremity Exercises hip ab/ad Body Position Standing Water Level Chest Level Reps/Duration 10x Comments small movement Hip flex/ex Body Position Standing Water Level Chest Level Reps/Duration 10x Comments small motions Upper Extremity Exercises shoulder rolls Water Level Neck Level Reps/Duration 10x shoulder flex/ext Details gloria Body Position squat at wall Water Level Neck Level Reps/Duration 10x shoulder hor ab/ad Details gloria for gentle chest mobilization an d stretching Body Position squat at wall Water Level Neck Level Reps/Duration 10x Comments with deep breathing Balance SLS Reps/Duration 10 x 2 Oxford Activities Oxford Activities Bicycle Other Activities deep water hang Equipment flotation belt Duration 12 min PT-OP-T Assessment and Plan Start: 05/15/21 07:31 Freq: Status: Active Protocol: Document 08/11/21 14:[address] [facility] (Rec: 08/12/21 14:[address] [facility] [id number]) Physical Therapy Assessment Goals sternal pain Impairment pain sternum, costochondral junction Impairment limited UE use due to pain sternum, upper costochondral junctions left greater than right, swelling proximal sternum Usp Goal (LTG) Decrease pain to no greater than 2/10 with patient able to resume all activities including ADL's and usual functional activities without chest pain LTG Duration 10/06/21 stability Short Term Goal (STG) Pt will be able to safely ascend and descend a curb in order to be safe when in the community. 06/26-uses a cane and feels okay STG Duration 07/06/21 Legal Aid Goal (LTG) Pt will feel comfortable navigating community with her . 08/06-does not feel like she has the stability and strength right now LTG Duration 10/06/21 pain Usp Goal (LTG) Pt will report SIJ, coccyx and R hip pain no greater than 2/ 10 on any given day for at least 2 week.s 06/26-5-08/15 08/06-06/15 LTG Duration 10/06/21 strength Short Term Goal (STG) pt will be indep w/HEP for core stability, hip stability, and balance. STG Duration achieved and advancing as tolerated Usp Goal (LTG) Pt will score at least 4/5 on all LE MMT to show improved strenght to improve pt mobility. LTG Duration 10/06/21 balance Impairment 35/56 Short Term Goal (STG) Pt will improve ORDOÑEZ balance score to at least 45 to show dec fall risk indoor 06/26-improved to 40 08/06-38 STG Duration 09/05 Legal Aid Goal (LTG) Pt will improve ORDOÑEZ balance score to at least 50 to show dec fall risk in outdoors/ community. LTG Duration 10/06 One Impairment Unable to sit for more than one hour due to hip pain, and has difficulty sleeping and moving in bed due to pain in low back and buttock(wakes every 2 hours) Short Term Goal (STG) Pt will be able to do sit to stand from any surfaces w/o inc R hip or back pain. 06/26-no back pain but minor groin pain 08/06- still some pain in R hip STG Duration 09/05/21 Legal Aid Goal (LTG) pt will be able to sleep and lay down w/o LB/SIJ pain or R hip pain. 06/26- sleeping still painful 08/06-with ibuprofen and sleeping pill she does okay and occ has to use heating pads LTG Duration 10/06/21 Assessment Summary Assessment Patient had near fall a few days ago that seemed to exacerbate her pain. Right hip pain has been worse with increased limp even before near fall incident per her report , better with cues for shorter steps and gluteal activation with weight acceptance. Good tolerance for modified aquatic therapy ex today. Physical Therapy Plan Frequency and Duration Frequency of Treatment 1-2x/week Duration of Treatment 2 months Plan of Care Start Date 08/06/21 Plan of Care End Date 10/06/21 Therapeutic Interventions Therapeutic Interventions Aquatic Therapy,Balance Training,Gait Training,Home Exercise Program,Joint Mobilizations,Manual Therapy, Neuromuscular Re-education, Orthotic/Prosthetic Management ,Patient/Caregiver Education, Self-Care/Home Management,Soft Tissue Mobilization,Taping, Therapeutic Activities, Therapeutic Exercises Modalities Cold Pack/Ice Massage,Electric Stimulation,Hot Packs, Infrared Therapy,Ultrasound Next Visit Focus/Plan Next Note Type Treatment Note Next Visit Plan Combination land and aquatic PT with progression of gentle postural correction, rib mobility exercises and possibly manual techniques. Work on sit to stand mechanics and muscle activation and gait mechanics. Manual therapy and modalities as needed for pain control, decreased muscle tension.
--- NOTE | 2021-08-18 10:37 | PT.OTN ---
Current Diagnoses Sacroiliitis, not elsewhere classified (08/18/21) Precordial pain (08/18/21) Other abnormalities of gait and mobility (08/18/21) Abnormal posture (08/18/21) Weakness (08/18/21) Other reduced mobility (08/18/21) Physical Therapy Treatment Note PT-OP-A Visit Information Start: 05/15/21 07:31 Freq: Status: Active Protocol: Document 08/18/21 09:54 [facility] (Rec: 08/18/21 10:36 [facility] [id number]) Out-Patient Physical Therapy Visit Information Visit Information Visit Type Treatment Note Visit Note 05/15 Visit Start Time 09:50 Visit Stop Time 10:40 Total Visit Minutes 50 Visit Number 20 Number of COMMERCIAL ESTIMATOR Visits 0 PT-OP-B Current Condition Start: 05/15/21 07:31 Freq: Status: Active Protocol: Document 08/11/21 14:16 [facility] (Rec: 08/12/21 14:27 [facility] [id number]) Current Condition History of Current Condition Onset Date about 1 month ago Current Complaints SIJ pain and R hip pain & imbalance History of Current Condition 08/06-has had further testing of CT of chest and has not gotten injections or treatment of it. Another MD decided it was not worth getting a MRI for. It has now been 7 months since this pain started and was worsened w/brochontitis. Since taking 800 mg of ibu 3x/ day for past 2 weeks, she has noticed some improvement. Chest is made worst by bending over, deep breathing, sneezing and at night in bed. IE:Pt has history of chronic LBP and B foot pain w/history of falls and imbalance with multiple bouts of PT that have been successful at reducing pain in the past. Pt reports being sick the entire month of Mar w/brochitis. She started in Jan having costrocontritis. She was feeling better w/SI pain after PT last Jan. She had a hip injection in R hip in Feb. She had chest CT, EKG and it was negative. MD would not inject her d/t pt not getting CT of sternum as MD kept changing what was needed for injection. Pt hasn't seen sensor operator for 6 months. She had the wrong day and yesterday got 3/[address] to [place] and realized it was wrong appt time. She is unsure when she will see her. She took her first dose of forest since she was off them while sick. She was taking methotrexate all along. She is still having sinus issues since being sick and is seeing allergy MD in [place] at end of month. She is not stable at all she feels and had difficulty w/on/off curbs. Pt reports R foot is so painful unless she has her shoes on. This just starteda bout a week ago so she needs to schedule to go backt o foot MD. reports she feels really unstable at night. Pt reports she is having hip issues again . Pt reports SIJ pain started about 3 weeks ago. It came on suddnely w/o any underlying causes. Denies any recent falls. Pt reports pain is not killing her but it very irritating and yesterday coccyx was killing me. She started Medaterrain diet she started and is noticing she is gaining weight and it didn't help w/pain. Has to sleep on heating pad at night. Once she gets up and is moving, it is better. Pt reports she no longer gardens. She feels like she will fall fwd if leaning fwd too much to garden and did fall last summer. Prior Treatments and Tests Mult bouts PT in past w/ improved pain Thoracic MRI 04/28: IMPRESSION: 1. Probable synovial cyst resulting in [id number] canal stenosis at C7-T1 can be further evaluated with MRI cervical spine with and without contrast 2. Thoracic dextroscoliosis and multilevel degenerative changes Lumbar CT 09/10/20: MPRESSION: Multilevel degenerative disc disease and arthropathy results in varying degrees of central and foraminal stenosis, including severe central stenosis at L3- 4. L4-5 and L5-S1 discectomy and fusion with posterior kimi and screw instrumentation in position. No hardware failure or loosening. Decompressive L4 and L5 laminectomies PT-OP-C Subjective Start: 05/15/21 07:31 Freq: Status: Active Protocol: Document 08/18/21 09:54 [facility] (Rec: 08/18/21 10:36 [facility] [id number]) OP-PT Subjective Patient Comments Patient Comments Pt reports She was really sore after the pool last time but when she went in, she did already have pain. She didn't go to the pool this weekend d/ t pain. She was in so much pain last night that her brought out of her walker. PT-OP-D Balance Start: 05/15/21 07:31 Freq: Status: Active Protocol: Document 08/06/21 09:56 [facility] (Rec: 08/06/21 10:22 [facility] [id number]) Balance Tests Ordoñez Balance Test Ordoñez Balance Test Score 38 PT-OP-F Manual Assessment Start: 05/15/21 07:31 Freq: Status: Active Protocol: Document 05/15/21 10:38 [facility] (Rec: 05/15/21 12:15 [facility] [id number]) Manual Assessments Soft Tissue Assessment Soft Tissue Mobility Assessment B glute, R>L QL, ES B, R iliacus tenderness PT-OP-G Mobility & Gait Start: 05/15/21 07:31 Freq: Status: Active Protocol: Document 05/15/21 10:38 [facility] (Rec: 05/15/21 12:15 [facility] [id number]) OP Mobility Evaluation Bed Mobility Rolling able to roll w/pain Supine to and from Sit pain OP Gait Assessment Comments Gait Comments Very stiff and appears unsteady, lat shift w/WB, dec push off, dec stride length B PT-OP-J Posture/Palpation/Skin Start: 05/15/21 07:31 Freq: Status: Active Protocol: Document 05/15/21 10:38 [facility] (Rec: 05/15/21 12:15 [facility] [id number]) Posture Evaluation Comments Posture Comments fwd flex w/inch kyphosis PT-OP-K Range of Motion Start: 05/15/21 07:31 Freq: Status: Active Protocol: Document 08/06/21 09:56 [facility] (Rec: 08/06/21 10:22 [facility] [id number]) Lumbar Spine Range of Motion Lumbar Spine Active Degrees Rotation Left 56 Rotation Right 54 Comments thoracolumbar rotation PT-OP-L Special Tests Start: 05/15/21 07:31 Freq: Status: Active Protocol: Document 05/15/21 10:38 [facility] (Rec: 05/15/21 12:15 [facility] [id number]) Special Tests Lumbar Spine Special Tests Slump Test Results neg B Straight Leg Raise Test Results neg b PT-OP-M Strength Start: 05/15/21 07:31 Freq: Status: Active Protocol: Document 05/15/21 10:38 [facility] (Rec: 05/15/21 12:15 [facility] [id number]) Hip Strength Hip Manual Muscle Testing Left Flexion (L2) 3+ Fair+ Abduction 3 Fair External Rotation 3+ Fair+ Internal Rotation 3+ Fair+ Right Flexion (L2) 3+ Fair+ Abduction 3 Fair External Rotation 3+ Fair+ Internal Rotation 3+ Fair+ Knee Strength Knee Manual Muscle Testing Right Flexion (S2) 4- Good- Extension (L3) 4- Good- Comments pain in SI w/ext Left Flexion (S2) 4- Good- Extension (L3) 4+ Good+ Ankle/Foot Strength Ankle and Foot Manual Muscle Testing Right Dorsiflexion (L4) 3+ Fair+ Plantarflexion (S1) 3+ Fair+ Left Dorsiflexion (L4) 3+ Fair+ Plantarflexion (S1) 3+ Fair+ Comments painPF PT-OP-Q Treatments Start: 05/15/21 07:31 Freq: Status: Active Protocol: Document 08/18/21 09:54 [facility] (Rec: 08/18/21 10:36 [facility] [id number]) Cardio Equipment Recumbent Stepper (Sci-Fit) Duration (Minutes) 10 Resistance 1 Seat Position 11 Therapeutic Exercises Supine Exercises pelvic tilts Supine Exercise Name w/ER Side bilateral Equipment Used L2 Reps/Minutes 12 Sitting Exercises dynadisc Sitting Exercise Name fwd/back & side/side tilts Side bilateral Reps/Minutes 8 Manual Therapy Treatment Soft Tissue Mobilization adductors Body Location R add & gracilis Mobilization Type Rolling,Strumming Intensity/Depth Moderate Body Position Hooklying Comments w/gentle hip ER/IR Joint Mobilizations hip Joint R Direction lat glide Self-Care/Home Management Treatment Education Other Education discussion re: not doing exercises that inc pain and avoid positions that are painful. Discussed talking to MDs re: prolo, prp, acupuncture, DO (Dr. Witt) who does gentle work. Edu to pt to break up exercises in day vs doing all at once. That way we can determine if certain exercises are causing the pain . Edu to try ice vs heat a home more. PT-OP-R Modalities Start: 05/15/21 07:31 Freq: Status: Active Protocol: Document 08/18/21 09:54 [facility] (Rec: 08/18/21 10:36 [facility] [id number]) Hot Pack/Cold Pack Treatment Cold Pack Location low back/B buttocks,L groin, left chest Treatment Duration (minutes) 10 PT-OP-S Aquatic Treatment Start: 07/14/21 14:44 Freq: Status: Active Protocol: Document 08/11/21 14:16 [facility] (Rec: 08/12/21 14:27 [facility] [id number]) Aquatics Treatment Pool Entry/Exit Pool Entry/Exit Method Lift Assistance Contact Guard Assistance, Verbal Cues Water Walking forward Water Level Chest Level Level of Assistance Verbal Cues Comments cues for smaller steps, gluteal activation Lower Extremity Exercises hip ab/ad Body Position Standing Water Level Chest Level Reps/Duration 10x Comments small movement Hip flex/ex Body Position Standing Water Level Chest Level Reps/Duration 10x Comments small motions Upper Extremity Exercises shoulder rolls Water Level Neck Level Reps/Duration 10x shoulder flex/ext Details gloria Body Position squat at wall Water Level Neck Level Reps/Duration 10x shoulder hor ab/ad Details gloria for gentle chest mobilization an d stretching Body Position squat at wall Water Level Neck Level Reps/Duration 10x Comments with deep breathing Balance SLS Reps/Duration 10 x 2 Leupp Activities Leupp Activities Bicycle Other Activities deep water hang Equipment flotation belt Duration 12 min PT-OP-T Assessment and Plan Start: 05/15/21 07:31 Freq: Status: Active Protocol: Document 08/18/21 09:54 [facility] (Rec: 08/18/21 10:36 [facility] [id number]) Physical Therapy Assessment Goals sternal pain Impairment pain sternum, costochondral junction Impairment limited UE use due to pain sternum, upper costochondral junctions left greater than right, swelling proximal sternum Display Department Manager Goal (LTG) Decrease pain to no greater than 2/10 with patient able to resume all activities including ADL's and usual functional activities without chest pain LTG Duration 10/06/21 stability Short Term Goal (STG) Pt will be able to safely ascend and descend a curb in order to be safe when in the community. 06/26-uses a cane and feels okay STG Duration 07/06/21 Correction Goal (LTG) Pt will feel comfortable navigating community with her . 08/06-does not feel like she has the stability and strength right now LTG Duration 10/06/21 pain Correction Goal (LTG) Pt will report SIJ, coccyx and R hip pain no greater than 2/ 10 on any given day for at least 2 week.s 06/26-5-608/06-06/15 LTG Duration 10/06/21 strength Short Term Goal (STG) pt will be indep w/HEP for core stability, hip stability, and balance. STG Duration achieved and advancing as tolerated Display Department Manager Goal (LTG) Pt will score at least 4/5 on all LE MMT to show improved strenght to improve pt mobility. LTG Duration 10/06/21 balance Impairment 35/56 Short Term Goal (STG) Pt will improve ORDOÑEZ balance score to at least 45 to show dec fall risk indoor 06/26-improved to 40 08/06-38 STG Duration 09/05 Correction Goal (LTG) Pt will improve ORDOÑEZ balance score to at least 50 to show dec fall risk in outdoors/ community. LTG Duration 10/06 One Impairment Unable to sit for more than one hour due to hip pain, and has difficulty sleeping and moving in bed due to pain in low back and buttock(wakes every 2 hours) Short Term Goal (STG) Pt will be able to do sit to stand from any surfaces w/o inc R hip or back pain. 06/26-no back pain but minor groin pain 08/06- still some pain in R hip STG Duration 09/05/21 Correction Goal (LTG) pt will be able to sleep and lay down w/o LB/SIJ pain or R hip pain. 06/26- sleeping still painful 08/06-with ibuprofen and sleeping pill she does okay and occ has to use heating pads LTG Duration 10/06/21 Assessment Summary Assessment Pt reported pain as she was going through exercises once PT asked mroe so pt had significant edu re: avoiding pain w/exercises at this time since she is more flared up when she has done exercises recently, so need to find aggrevatory ones. Physical Therapy Plan Frequency and Duration Frequency of Treatment 1-2x/week Duration of Treatment 2 months Plan of Care Start Date 08/06/21 Plan of Care End Date 10/06/21 Next Visit Focus/Plan Next Note Type Treatment Note Next Visit Plan Combination land and aquatic PT with progression of gentle postural correction, rib mobility exercises and possibly manual techniques. Work on sit to stand mechanics and muscle activation and gait mechanics. Manual therapy and modalities as needed for pain control, decreased muscle tension.
--- NOTE | 2021-08-24 10:44 | PT.OTN ---
Current Diagnoses Sacroiliitis, not elsewhere classified (08/20/21) Precordial pain (08/20/21) Other abnormalities of gait and mobility (08/20/21) Abnormal posture (08/20/21) Weakness (08/20/21) Other reduced mobility (08/20/21) Physical Therapy Treatment Note PT-OP-A Visit Information Start: 05/15/21 07:31 Freq: Status: Active Protocol: Document 08/20/21 11:00 [facility] (Rec: 08/24/21 10:41 [facility] [id number]) Out-Patient Physical Therapy Visit Information Visit Information Visit Type Aquatic Treatment Note Visit Note 06/15 Visit Start Time 09:50 Visit Stop Time 10:40 Total Visit Minutes 50 Visit Number 21 Number of [employer] Visits 0 PT-OP-B Current Condition Start: 05/15/21 07:31 Freq: Status: Active Protocol: Document 08/11/21 14:16 SAK (Rec: 08/12/21 14:27 [facility] [id number]) Current Condition History of Current Condition Onset Date about 1 month ago Current Complaints SIJ pain and R hip pain & imbalance History of Current Condition 08/06-has had further testing of CT of chest and has not gotten injections or treatment of it. Another MD decided it was not worth getting a MRI for. It has now been 7 months since this pain started and was worsened w/brochontitis. Since taking 800 mg of ibu 3x/ day for past 2 weeks, she has noticed some improvement. Chest is made worst by bending over, deep breathing, sneezing and at night in bed. IE:Pt has history of chronic LBP and B foot pain w/history of falls and imbalance with multiple bouts of PT that have been successful at reducing pain in the past. Pt reports being sick the entire month of Mar w/brochitis. She started in Jan having costrocontritis. She was feeling better w/SI pain after PT last Jan. She had a hip injection in R hip in Feb. She had chest CT, EKG and it was negative. MD would not inject her d/t pt not getting CT of sternum as MD kept changing what was needed for injection. Pt hasn't seen underground utility locator for 6 months. She had the wrong day and yesterday got 3/[address] to [place] and realized it was wrong appt time. She is unsure when she will see her. She took her first dose of forest since she was off them while sick. She was taking methotrexate all along. She is still having sinus issues since being sick and is seeing allergy MD in [place] at end of month. She is not stable at all she feels and had difficulty w/on/off curbs. Pt reports R foot is so painful unless she has her shoes on. This just starteda bout a week ago so she needs to schedule to go backt o foot MD. reports she feels really unstable at night. Pt reports she is having hip issues again . Pt reports SIJ pain started about 3 weeks ago. It came on suddnely w/o any underlying causes. Denies any recent falls. Pt reports pain is not killing her but it very irritating and yesterday coccyx was killing me. She started Medaterrain diet she started and is noticing she is gaining weight and it didn't help w/pain. Has to sleep on heating pad at night. Once she gets up and is moving, it is better. Pt reports she no longer gardens. She feels like she will fall fwd if leaning fwd too much to garden and did fall last summer. Prior Treatments and Tests Mult bouts PT in past w/ improved pain Thoracic MRI 04/28: IMPRESSION: 1. Probable synovial cyst resulting in [id number] canal stenosis at C7-T1 can be further evaluated with MRI cervical spine with and without contrast 2. Thoracic dextroscoliosis and multilevel degenerative changes Lumbar CT 09/10/20: MPRESSION: Multilevel degenerative disc disease and arthropathy results in varying degrees of central and foraminal stenosis, including severe central stenosis at L3- 4. L4-5 and L5-S1 discectomy and fusion with posterior kimi and screw instrumentation in position. No hardware failure or loosening. Decompressive L4 and L5 laminectomies PT-OP-C Subjective Start: 05/15/21 07:31 Freq: Status: Active Protocol: Document 08/20/21 11:00 [facility] (Rec: 08/24/21 10:41 [facility] [id number]) OP-PT Subjective Patient Comments Patient Comments States just can't figure out what it was that caused her increase in pain after being in the pool last time. Agreeable to try supine manual aquatic therapy treatment. PT-OP-D Balance Start: 05/15/21 07:31 Freq: Status: Active Protocol: Document 08/06/21 09:56 [facility] (Rec: 08/06/21 10:22 [facility] [id number]) Balance Tests Ordoñez Balance Test Ordoñez Balance Test Score 38 PT-OP-F Manual Assessment Start: 05/15/21 07:31 Freq: Status: Active Protocol: Document 05/15/21 10:38 [facility] (Rec: 05/15/21 12:15 [facility] [id number]) Manual Assessments Soft Tissue Assessment Soft Tissue Mobility Assessment B glute, R>L QL, ES B, R iliacus tenderness PT-OP-G Mobility & Gait Start: 05/15/21 07:31 Freq: Status: Active Protocol: Document 05/15/21 10:38 [facility] (Rec: 05/15/21 12:15 [facility] [id number]) OP Mobility Evaluation Bed Mobility Rolling able to roll w/pain Supine to and from Sit pain OP Gait Assessment Comments Gait Comments Very stiff and appears unsteady, lat shift w/WB, dec push off, dec stride length B PT-OP-J Posture/Palpation/Skin Start: 05/15/21 07:31 Freq: Status: Active Protocol: Document 05/15/21 10:38 [facility] (Rec: 05/15/21 12:15 [facility] [id number]) Posture Evaluation Comments Posture Comments fwd flex w/inch kyphosis PT-OP-K Range of Motion Start: 05/15/21 07:31 Freq: Status: Active Protocol: Document 08/06/21 09:56 [facility] (Rec: 08/06/21 10:22 [facility] [id number]) Lumbar Spine Range of Motion Lumbar Spine Active Degrees Rotation Left 56 Rotation Right 54 Comments thoracolumbar rotation PT-OP-L Special Tests Start: 05/15/21 07:31 Freq: Status: Active Protocol: Document 05/15/21 10:38 [facility] (Rec: 05/15/21 12:15 [facility] [id number]) Special Tests Lumbar Spine Special Tests Slump Test Results neg B Straight Leg Raise Test Results neg b PT-OP-M Strength Start: 05/15/21 07:31 Freq: Status: Active Protocol: Document 05/15/21 10:38 [facility] (Rec: 05/15/21 12:15 [facility] [id number]) Hip Strength Hip Manual Muscle Testing Left Flexion (L2) 3+ Fair+ Abduction 3 Fair External Rotation 3+ Fair+ Internal Rotation 3+ Fair+ Right Flexion (L2) 3+ Fair+ Abduction 3 Fair External Rotation 3+ Fair+ Internal Rotation 3+ Fair+ Knee Strength Knee Manual Muscle Testing Right Flexion (S2) 4- Good- Extension (L3) 4- Good- Comments pain in SI w/ext Left Flexion (S2) 4- Good- Extension (L3) 4+ Good+ Ankle/Foot Strength Ankle and Foot Manual Muscle Testing Right Dorsiflexion (L4) 3+ Fair+ Plantarflexion (S1) 3+ Fair+ Left Dorsiflexion (L4) 3+ Fair+ Plantarflexion (S1) 3+ Fair+ Comments painPF PT-OP-Q Treatments Start: 05/15/21 07:31 Freq: Status: Active Protocol: Document 08/18/21 09:54 [facility] (Rec: 08/18/21 10:36 [facility] [id number]) Cardio Equipment Recumbent Stepper (Sci-Fit) Duration (Minutes) 10 Resistance 1 Seat Position 11 Therapeutic Exercises Supine Exercises pelvic tilts Supine Exercise Name w/ER Side bilateral Equipment Used L2 Reps/Minutes 12 Sitting Exercises dynadisc Sitting Exercise Name fwd/back & side/side tilts Side bilateral Reps/Minutes 8 Manual Therapy Treatment Soft Tissue Mobilization adductors Body Location R add & gracilis Mobilization Type Rolling,Strumming Intensity/Depth Moderate Body Position Hooklying Comments w/gentle hip ER/IR Joint Mobilizations hip Joint R Direction lat glide Self-Care/Home Management Treatment Education Other Education discussion re: not doing exercises that inc pain and avoid positions that are painful. Discussed talking to MDs re: prolo, prp, acupuncture, DO (Dr. Witt) who does gentle work. Edu to pt to break up exercises in day vs doing all at once. That way we can determine if certain exercises are causing the pain . Edu to try ice vs heat a home more. PT-OP-R Modalities Start: 05/15/21 07:31 Freq: Status: Active Protocol: Document 08/18/21 09:54 [facility] (Rec: 08/18/21 10:36 [facility] [id number]) Hot Pack/Cold Pack Treatment Cold Pack Location low back/B buttocks,L groin, left chest Treatment Duration (minutes) 10 PT-OP-S Aquatic Treatment Start: 07/14/21 14:44 Freq: Status: Active Protocol: Document 08/20/21 11:00 [facility] (Rec: 08/24/21 10:44 [facility] [id number]) Aquatics Treatment Pool Entry/Exit Pool Entry/Exit Method Lift Assistance Contact Guard Assistance, Verbal Cues Water Walking forward Water Level Chest Level Level of Assistance Verbal Cues Comments cues for smaller steps, gluteal activation Chaplin Activities Chaplin Activities Bicycle Other Activities deep water hang Equipment flotation belt Duration 10 min Manual Techniques Bad Ragaz gentle passive of trunk and LE 's WATSU gentle seaweed Aquatic Manual Traction lumbar Aquatic Joint Mobilizations RIB and thoracic with deep breathing, gentle PA's Aquatic Massage lumbar and thoracic paraspinals, right piriformis PT-OP-T Assessment and Plan Start: 05/15/21 07:31 Freq: Status: Active Protocol: Document 08/20/21 11:00 [facility] (Rec: 08/24/21 10:41 [facility] [id number]) Physical Therapy Assessment Goals sternal pain Impairment pain sternum, costochondral junction Impairment limited UE use due to pain sternum, upper costochondral junctions left greater than right, swelling proximal sternum Jail Goal (LTG) Decrease pain to no greater than 2/10 with patient able to resume all activities including ADL's and usual functional activities without chest pain LTG Duration 10/06/21 stability Short Term Goal (STG) Pt will be able to safely ascend and descend a curb in order to be safe when in the community. 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 08/06-does not feel like she has the stability and strength right now LTG Duration 10/06/21 pain Jail Goal (LTG) Pt will report SIJ, coccyx and R hip pain no greater than 2/ 10 on any given day for at least 2 week.s 06/26-5-608/06-06/15 LTG Duration 10/06/21 strength Short Term Goal (STG) pt will be indep w/HEP for core stability, hip stability, and balance. STG Duration achieved and advancing as tolerated Jail Goal (LTG) Pt will score at least 4/5 on all LE MMT to show improved strenght to improve pt mobility. LTG Duration 10/06/21 balance Impairment 35/56 Short Term Goal (STG) Pt will improve ORDOÑEZ balance score to at least 45 to show dec fall risk indoor 06/26-improved to 40 08/06-38 STG Duration 09/05 Jail Goal (LTG) Pt will improve ORDOÑEZ balance score to at least 50 to show dec fall risk in outdoors/ community. LTG Duration 10/06 One Impairment Unable to sit for more than one hour due to hip pain, and has difficulty sleeping and moving in bed due to pain in low back and buttock(wakes every 2 hours) Short Term Goal (STG) Pt will be able to do sit to stand from any surfaces w/o inc R hip or back pain. 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 06/26- sleeping still painful 08/06-with ibuprofen and sleeping pill she does okay and occ has to use heating pads LTG Duration 10/06/21 Assessment Summary Assessment Patient had excellent tolerance for supine manual techniques including soft tissue mobilization, gentle rib and thoracic mobility, Bad Ragaz and Watsu techniques for gentle ROM. Physical Therapy Plan Frequency and Duration Frequency of Treatment 1-2x/week Duration of Treatment 2 months Plan of Care Start Date 08/06/21 Plan of Care End Date 10/06/21 Therapeutic Interventions Therapeutic Interventions Aquatic Therapy,Balance Training,Gait Training,Home Exercise Program,Joint Mobilizations,Manual Therapy, Neuromuscular Re-education, Orthotic/Prosthetic Management ,Patient/Caregiver Education, Self-Care/Home Management,Soft Tissue Mobilization,Taping, Therapeutic Activities, Therapeutic Exercises Modalities Cold Pack/Ice Massage,Electric Stimulation,Hot Packs, Infrared Therapy,Ultrasound Next Visit Focus/Plan Next Note Type Treatment Note Next Visit Plan Combination land and aquatic PT with progression of gentle postural correction, rib mobility exercises and possibly manual techniques. Work on sit to stand mechanics and muscle activation and gait mechanics. Manual therapy and modalities as needed for pain control, decreased muscle tension.
--- NOTE | 2021-08-25 15:15 | PT.OTN ---
Current Diagnoses Sacroiliitis, not elsewhere classified (08/25/21) Precordial pain (08/25/21) Other abnormalities of gait and mobility (08/25/21) Abnormal posture (08/25/21) Weakness (08/25/21) Other reduced mobility (08/25/21) Physical Therapy Treatment Note PT-OP-A Visit Information Start: 05/15/21 07:31 Freq: Status: Active Protocol: Document 08/25/21 11:45 [facility] (Rec: 08/27/21 15:15 [facility] [id number]) Out-Patient Physical Therapy Visit Information Visit Information Visit Type Aquatic Treatment Note Visit Note 07/15 Visit Start Time 11:45 Visit Stop Time 12:30 Total Visit Minutes 45 Visit Number 22 Number of PEDIATRIC MEDICAL ASSISTANT Visits 0 PT-OP-B Current Condition Start: 05/15/21 07:31 Freq: Status: Active Protocol: Document 08/11/21 14:16 SAK (Rec: 08/12/21 14:27 [facility] [id number]) Current Condition History of Current Condition Onset Date about 1 month ago Current Complaints SIJ pain and R hip pain & imbalance History of Current Condition 08/06-has had further testing of CT of chest and has not gotten injections or treatment of it. Another MD decided it was not worth getting a MRI for. It has now been 7 months since this pain started and was worsened w/brochontitis. Since taking 800 mg of ibu 3x/ day for past 2 weeks, she has noticed some improvement. Chest is made worst by bending over, deep breathing, sneezing and at night in bed. IE:Pt has history of chronic LBP and B foot pain w/history of falls and imbalance with multiple bouts of PT that have been successful at reducing pain in the past. Pt reports being sick the entire month of Mar w/brochitis. She started in Jan having costrocontritis. She was feeling better w/SI pain after PT last Jan. She had a hip injection in R hip in Feb. She had chest CT, EKG and it was negative. MD would not inject her d/t pt not getting CT of sternum as MD kept changing what was needed for injection. Pt hasn't seen mysql dba for 6 months. She had the wrong day and yesterday got 3/[address] to [place] and realized it was wrong appt time. She is unsure when she will see her. She took her first dose of forest since she was off them while sick. She was taking methotrexate all along. She is still having sinus issues since being sick and is seeing allergy MD in [place] at end of month. She is not stable at all she feels and had difficulty w/on/off curbs. Pt reports R foot is so painful unless she has her shoes on. This just starteda bout a week ago so she needs to schedule to go backt o foot MD. reports she feels really unstable at night. Pt reports she is having hip issues again . Pt reports SIJ pain started about 3 weeks ago. It came on suddnely w/o any underlying causes. Denies any recent falls. Pt reports pain is not killing her but it very irritating and yesterday coccyx was killing me. She started Medaterrain diet she started and is noticing she is gaining weight and it didn't help w/pain. Has to sleep on heating pad at night. Once she gets up and is moving, it is better. Pt reports she no longer gardens. She feels like she will fall fwd if leaning fwd too much to garden and did fall last summer. Prior Treatments and Tests Mult bouts PT in past w/ improved pain Thoracic MRI 04/28: IMPRESSION: 1. 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 Thoracic dextroscoliosis and multilevel degenerative changes Lumbar CT 09/10/20: MPRESSION: Multilevel degenerative disc disease and arthropathy results in varying degrees of central and foraminal stenosis, including severe central stenosis at L3- 4. L4-5 and L5-S1 discectomy and fusion with posterior kimi and screw instrumentation in position. No hardware failure or loosening. Decompressive L4 and L5 laminectomies PT-OP-C Subjective Start: 05/15/21 07:31 Freq: Status: Active Protocol: Document 08/25/21 11:45 [facility] (Rec: 08/27/21 15:15 [facility] [id number]) OP-PT Subjective Patient Comments Patient Comments Reports mysql dba diagnosed her with RA ros only stay on Forest until starts Embril, will stay on Methotrexate. Re-started on Prednisone due to inability to cotrol her pain, hasn't started to help yet. Only doing isometric exercises. Alsmost fell outside on febk, using walker for mobiity at home though came to PT using SPC today. Manual techniques last session decreased low back pain, but reports had increased upper back pain. PT-OP-D Balance Start: 05/15/21 07:31 Freq: Status: Active Protocol: Document 08/06/21 09:56 [facility] (Rec: 08/06/21 10:22 [facility] [id number]) Balance Tests Ordoñez Balance Test Ordoñez Balance Test Score 38 PT-OP-F Manual Assessment Start: 05/15/21 07:31 Freq: Status: Active Protocol: Document 05/15/21 10:38 [facility] (Rec: 05/15/21 12:15 [facility] [id number]) Manual Assessments Soft Tissue Assessment Soft Tissue Mobility Assessment B glute, R>L QL, ES B, R iliacus tenderness PT-OP-G Mobility & Gait Start: 05/15/21 07:31 Freq: Status: Active Protocol: Document 05/15/21 10:38 [facility] (Rec: 05/15/21 12:15 [facility] [id number]) OP Mobility Evaluation Bed Mobility Rolling able to roll w/pain Supine to and from Sit pain OP Gait Assessment Comments Gait Comments Very stiff and appears unsteady, lat shift w/WB, dec push off, dec stride length B PT-OP-J Posture/Palpation/Skin Start: 05/15/21 07:31 Freq: Status: Active Protocol: Document 05/15/21 10:38 [facility] (Rec: 05/15/21 12:15 [facility] [id number]) Posture Evaluation Comments Posture Comments fwd flex w/inch kyphosis PT-OP-K Range of Motion Start: 05/15/21 07:31 Freq: Status: Active Protocol: Document 08/06/21 09:56 [facility] (Rec: 08/06/21 10:22 [facility] [id number]) Lumbar Spine Range of Motion Lumbar Spine Active Degrees Rotation Left 56 Rotation Right 54 Comments thoracolumbar rotation PT-OP-L Special Tests Start: 05/15/21 07:31 Freq: Status: Active Protocol: Document 05/15/21 10:38 [facility] (Rec: 05/15/21 12:15 [facility] [id number]) Special Tests Lumbar Spine Special Tests Slump Test Results neg B Straight Leg Raise Test Results neg b PT-OP-M Strength Start: 05/15/21 07:31 Freq: Status: Active Protocol: Document 05/15/21 10:38 [facility] (Rec: 05/15/21 12:15 [facility] [id number]) Hip Strength Hip Manual Muscle Testing Left Flexion (L2) 3+ Fair+ Abduction 3 Fair External Rotation 3+ Fair+ Internal Rotation 3+ Fair+ Right Flexion (L2) 3+ Fair+ Abduction 3 Fair External Rotation 3+ Fair+ Internal Rotation 3+ Fair+ Knee Strength Knee Manual Muscle Testing Right Flexion (S2) 4- Good- Extension (L3) 4- Good- Comments pain in SI w/ext Left Flexion (S2) 4- Good- Extension (L3) 4+ Good+ Ankle/Foot Strength Ankle and Foot Manual Muscle Testing Right Dorsiflexion (L4) 3+ Fair+ Plantarflexion (S1) 3+ Fair+ Left Dorsiflexion (L4) 3+ Fair+ Plantarflexion (S1) 3+ Fair+ Comments painPF PT-OP-Q Treatments Start: 05/15/21 07:31 Freq: Status: Active Protocol: Document 08/18/21 09:54 [facility] (Rec: 08/18/21 10:36 [facility] [id number]) Cardio Equipment Recumbent Stepper (Sci-Fit) Duration (Minutes) 10 Resistance 1 Seat Position 11 Therapeutic Exercises Supine Exercises pelvic tilts Supine Exercise Name w/ER Side bilateral Equipment Used L2 Reps/Minutes 12 Sitting Exercises dynadisc Sitting Exercise Name fwd/back & side/side tilts Side bilateral Reps/Minutes 8 Manual Therapy Treatment Soft Tissue Mobilization adductors Body Location R add & gracilis Mobilization Type Rolling,Strumming Intensity/Depth Moderate Body Position Hooklying Comments w/gentle hip ER/IR Joint Mobilizations hip Joint R Direction lat glide Self-Care/Home Management Treatment Education Other Education discussion re: not doing exercises that inc pain and avoid positions that are painful. Discussed talking to MDs re: prolo, prp, acupuncture, DO (Dr. Witt) who does gentle work. Edu to pt to break up exercises in day vs doing all at once. That way we can determine if certain exercises are causing the pain . Edu to try ice vs heat a home more. PT-OP-R Modalities Start: 05/15/21 07:31 Freq: Status: Active Protocol: Document 08/18/21 09:54 [facility] (Rec: 08/18/21 10:36 [facility] [id number]) Hot Pack/Cold Pack Treatment Cold Pack Location low back/B buttocks,L groin, left chest Treatment Duration (minutes) 10 PT-OP-S Aquatic Treatment Start: 07/14/21 14:44 Freq: Status: Active Protocol: Document 08/25/21 11:45 [facility] (Rec: 08/27/21 15:15 [facility] [id number]) Aquatics Treatment Pool Entry/Exit Pool Entry/Exit Method Lift Assistance Contact Guard Assistance, Verbal Cues Water Walking forward Water Level Chest Level Level of Assistance Verbal Cues Comments cues for smaller steps, gluteal activation [place] Activities [place] Activities Bicycle Other Activities deep water hang Equipment flotation belt Duration 10 min PT-OP-T Assessment and Plan Start: 05/15/21 07:31 Freq: Status: Active Protocol: Document 08/25/21 11:45 [facility] (Rec: 08/27/21 15:15 [facility] [id number]) Physical Therapy Assessment Goals sternal pain Impairment pain sternum, costochondral junction Impairment limited UE use due to pain sternum, upper costochondral junctions left greater than right, swelling proximal sternum Loan Interviewer Goal (LTG) Decrease pain to no greater than 2/10 with patient able to resume all activities including ADL's and usual functional activities without chest pain LTG Duration 10/06/21 stability Short Term Goal (STG) Pt will be able to safely ascend and descend a curb in order to be safe when in the community. 06/26-uses a cane and feels okay STG Duration 07/06/21 Usp Goal (LTG) Pt will feel comfortable navigating community with her . 08/06-does not feel like she has the stability and strength right now LTG Duration 10/06/21 pain Usp Goal (LTG) Pt will report SIJ, coccyx and R hip pain no greater than 2/ 10 on any given day for at least 2 week.s 06/26-5-08/15 08/06-06/15 LTG Duration 10/06/21 strength Short Term Goal (STG) pt will be indep w/HEP for core stability, hip stability, and balance. STG Duration achieved and advancing as tolerated Usp Goal (LTG) Pt will score at least 4/5 on all LE MMT to show improved strenght to improve pt mobility. LTG Duration 10/06/21 balance Impairment 35/56 Short Term Goal (STG) Pt will improve ORDOÑEZ balance score to at least 45 to show dec fall risk indoor 06/26-improved to 40 08/06-38 STG Duration 09/05 Loan Interviewer Goal (LTG) Pt will improve ORDOÑEZ balance score to at least 50 to show dec fall risk in outdoors/ community. LTG Duration 10/06 One Impairment Unable to sit for more than one hour due to hip pain, and has difficulty sleeping and moving in bed due to pain in low back and buttock(wakes every 2 hours) Short Term Goal (STG) Pt will be able to do sit to stand from any surfaces w/o inc R hip or back pain. 06/26-no back pain but minor groin pain 08/06- still some pain in R hip STG Duration 09/05/21 Usp Goal (LTG) pt will be able to sleep and lay down w/o LB/SIJ pain or R hip pain. 06/26- sleeping still painful 08/06-with ibuprofen and sleeping pill she does okay and occ has to use heating pads LTG Duration 10/06/21 Assessment Summary Assessment Patient diagnosed with RA, in major pain flare, had near fall. Decreased thoracic mobilization with manual techniques today. Patient having more difficulty relaxing initially supine in water, frustrated by her continued pain. Gradually relaxed and had good tolerance for manual techniques. Minimal shallow water walking today. Physical Therapy Plan Frequency and Duration Frequency of Treatment 1-2x/week Duration of Treatment 2 months Plan of Care Start Date 08/06/21 Plan of Care End Date 10/06/21 Therapeutic Interventions Therapeutic Interventions Aquatic Therapy,Balance Training,Gait Training,Home Exercise Program,Joint Mobilizations,Manual Therapy, Neuromuscular Re-education, Orthotic/Prosthetic Management ,Patient/Caregiver Education, Self-Care/Home Management,Soft Tissue Mobilization,Taping, Therapeutic Activities, Therapeutic Exercises Modalities Cold Pack/Ice Massage,Electric Stimulation,Hot Packs, Infrared Therapy,Ultrasound Next Visit Focus/Plan Next Note Type Treatment Note Next Visit Plan Combination land and aquatic PT with progression of gentle postural correction, rib mobility exercises and possibly manual techniques. Work on sit to stand mechanics and muscle activation and gait mechanics. Manual therapy and modalities as needed for pain control, decreased muscle tension. Discuss alternative therapies such as accupuncture , prolotherapy.
--- NOTE | 2021-09-04 16:10 | PT.OTN ---
Current Diagnoses Sacroiliitis, not elsewhere classified (09/04/21) Precordial pain (09/04/21) Other abnormalities of gait and mobility (09/04/21) Abnormal posture (09/04/21) Weakness (09/04/21) Other reduced mobility (09/04/21) Physical Therapy Treatment Note PT-OP-A Visit Information Start: 05/15/21 07:31 Freq: Status: Active Protocol: Document 09/04/21 13:49 [facility] (Rec: 09/04/21 14:35 [facility] [id number]) Out-Patient Physical Therapy Visit Information Visit Information Visit Type Treatment Note Visit Note 08/15 Visit Start Time 13:50 Visit Stop Time 14:40 Total Visit Minutes 50 Visit Number 23 Number of WHITE LEAD FILTERER Visits 0 PT-OP-B Current Condition Start: 05/15/21 07:31 Freq: Status: Active Protocol: Document 08/11/21 14:16 [facility] (Rec: 08/12/21 14:27 [facility] [id number]) Current Condition History of Current Condition Onset Date about 1 month ago Current Complaints SIJ pain and R hip pain & imbalance History of Current Condition 08/06-has had further testing of CT of chest and has not gotten injections or treatment of it. Another MD decided it was not worth getting a MRI for. It has now been 7 months since this pain started and was worsened w/brochontitis. Since taking 800 mg of ibu 3x/ day for past 2 weeks, she has noticed some improvement. Chest is made worst by bending over, deep breathing, sneezing and at night in bed. IE:Pt has history of chronic LBP and B foot pain w/history of falls and imbalance with multiple bouts of PT that have been successful at reducing pain in the past. Pt reports being sick the entire month of Mar w/brochitis. She started in Jan having costrocontritis. She was feeling better w/SI pain after PT last Jan. She had a hip injection in R hip in Feb. She had chest CT, EKG and it was negative. MD would not inject her d/t pt not getting CT of sternum as MD kept changing what was needed for injection. Pt hasn't seen pmo business analyst for 6 months. She had the wrong day and yesterday got 3/[address] to [place] and realized it was wrong appt time. She is unsure when she will see her. She took her first dose of forest since she was off them while sick. She was taking methotrexate all along. She is still having sinus issues since being sick and is seeing allergy MD in [place] at end of month. She is not stable at all she feels and had difficulty w/on/off curbs. Pt reports R foot is so painful unless she has her shoes on. This just starteda bout a week ago so she needs to schedule to go backt o foot MD. reports she feels really unstable at night. Pt reports she is having hip issues again . Pt reports SIJ pain started about 3 weeks ago. It came on suddnely w/o any underlying causes. Denies any recent falls. Pt reports pain is not killing her but it very irritating and yesterday coccyx was killing me. She started Medaterrain diet she started and is noticing she is gaining weight and it didn't help w/pain. Has to sleep on heating pad at night. Once she gets up and is moving, it is better. Pt reports she no longer gardens. She feels like she will fall fwd if leaning fwd too much to garden and did fall last summer. Prior Treatments and Tests Mult bouts PT in past w/ improved pain Thoracic MRI 04/28: IMPRESSION: 1. Probable synovial cyst resulting in [id number] canal stenosis at C7-T1 can be further evaluated with MRI cervical spine with and without contrast 2. Thoracic dextroscoliosis and multilevel degenerative changes Lumbar CT 09/10/20: MPRESSION: Multilevel degenerative disc disease and arthropathy results in varying degrees of central and foraminal stenosis, including severe central stenosis at L3- 4. L4-5 and L5-S1 discectomy and fusion with posterior kimi and screw instrumentation in position. No hardware failure or loosening. Decompressive L4 and L5 laminectomies PT-OP-C Subjective Start: 05/15/21 07:31 Freq: Status: Active Protocol: Document 09/04/21 13:49 [facility] (Rec: 09/04/21 14:35 [facility] [id number]) OP-PT Subjective Patient Comments Patient Comments pt reports she hasn't started Embril yet d/t no documenation of failure of Forest. She is fell last week when camping d/ t getting up in the night in the camper and caught her leg and fell on R UE and LE. 2 days before gong camping, she had a flare. Still on prednisone. the last couple times jasiel went to the pool, she didn't hurt after. Notes she is trying to go daily ot every other day. Today L chest is really bothering her. She said she has been trying to do standing hip abd because she can lift it better. Reports still having R groin issue. SI pain is a little better. PT-OP-D Balance Start: 05/15/21 07:31 Freq: Status: Active Protocol: Document 08/06/21 09:56 [facility] (Rec: 08/06/21 10:22 [facility] [id number]) Balance Tests Ordoñez Balance Test Ordoñez Balance Test Score 38 PT-OP-F Manual Assessment Start: 05/15/21 07:31 Freq: Status: Active Protocol: Document 05/15/21 10:38 [facility] (Rec: 05/15/21 12:15 [facility] [id number]) Manual Assessments Soft Tissue Assessment Soft Tissue Mobility Assessment B glute, R>L QL, ES B, R iliacus tenderness PT-OP-G Mobility & Gait Start: 05/15/21 07:31 Freq: Status: Active Protocol: Document 05/15/21 10:38 [facility] (Rec: 05/15/21 12:15 [facility] [id number]) OP Mobility Evaluation Bed Mobility Rolling able to roll w/pain Supine to and from Sit pain OP Gait Assessment Comments Gait Comments Very stiff and appears unsteady, lat shift w/WB, dec push off, dec stride length B PT-OP-J Posture/Palpation/Skin Start: 05/15/21 07:31 Freq: Status: Active Protocol: Document 05/15/21 10:38 [facility] (Rec: 05/15/21 12:15 [facility] [id number]) Posture Evaluation Comments Posture Comments fwd flex w/inch kyphosis PT-OP-K Range of Motion Start: 05/15/21 07:31 Freq: Status: Active Protocol: Document 08/06/21 09:56 [facility] (Rec: 08/06/21 10:22 [facility] [id number]) Lumbar Spine Range of Motion Lumbar Spine Active Degrees Rotation Left 56 Rotation Right 54 Comments thoracolumbar rotation PT-OP-L Special Tests Start: 05/15/21 07:31 Freq: Status: Active Protocol: Document 05/15/21 10:38 [facility] (Rec: 05/15/21 12:15 [facility] [id number]) Special Tests Lumbar Spine Special Tests Slump Test Results neg B Straight Leg Raise Test Results neg b PT-OP-M Strength Start: 05/15/21 07:31 Freq: Status: Active Protocol: Document 05/15/21 10:38 [facility] (Rec: 05/15/21 12:15 [facility] [id number]) Hip Strength Hip Manual Muscle Testing Left Flexion (L2) 3+ Fair+ Abduction 3 Fair External Rotation 3+ Fair+ Internal Rotation 3+ Fair+ Right Flexion (L2) 3+ Fair+ Abduction 3 Fair External Rotation 3+ Fair+ Internal Rotation 3+ Fair+ Knee Strength Knee Manual Muscle Testing Right Flexion (S2) 4- Good- Extension (L3) 4- Good- Comments pain in SI w/ext Left Flexion (S2) 4- Good- Extension (L3) 4+ Good+ Ankle/Foot Strength Ankle and Foot Manual Muscle Testing Right Dorsiflexion (L4) 3+ Fair+ Plantarflexion (S1) 3+ Fair+ Left Dorsiflexion (L4) 3+ Fair+ Plantarflexion (S1) 3+ Fair+ Comments painPF PT-OP-Q Treatments Start: 05/15/21 07:31 Freq: Status: Active Protocol: Document 09/04/21 13:49 [facility] (Rec: 09/04/21 14:35 [facility] [id number]) Cardio Equipment Recumbent Stepper (Sci-Fit) Duration (Minutes) 8 Resistance 1 Seat Position 11 Gym Equipment Shuttle Recovery Unilateral Squats Details core engaged Resistance 25# Shuttle Recovery Platform Stable Reps/Time 10 Therapeutic Exercises Standing Exercises mini squat Side bilateral Equipment Used rail and chair Reps/Minutes 10 hip abd Side bilateral Reps/Minutes 10 Manual Therapy Treatment Soft Tissue Mobilization 3 Body Location L pecs & intercostals btwn ribs 1-4 Mobilization Type Rolling,Strumming Intensity/Depth Moderate Joint Mobilizations ribs Comments 1. AP rib 1 & 2 & distaction from sternum 2. cadual rib 2&3 PT-OP-R Modalities Start: 05/15/21 07:31 Freq: Status: Active Protocol: Document 09/04/21 13:49 [facility] (Rec: 09/04/21 14:35 [facility] [id number]) Hot Pack/Cold Pack Treatment Cold Pack Location low back/B buttocks, left chest Treatment Duration (minutes) 10 PT-OP-S Aquatic Treatment Start: 07/14/21 14:44 Freq: Status: Active Protocol: Document 08/25/21 11:45 [facility] (Rec: 08/27/21 15:15 [facility] [id number]) Aquatics Treatment Pool Entry/Exit Pool Entry/Exit Method Lift Assistance Contact Guard Assistance, Verbal Cues Water Walking forward Water Level Chest Level Level of Assistance Verbal Cues Comments cues for smaller steps, gluteal activation Eolia Activities Eolia Activities Bicycle Other Activities deep water hang Equipment flotation belt Duration 10 min PT-OP-T Assessment and Plan Start: 05/15/21 07:31 Freq: Status: Active Protocol: Document 09/04/21 13:49 [facility] (Rec: 09/04/21 14:35 [facility] [id number]) Physical Therapy Assessment Goals sternal pain Impairment pain sternum, costochondral junction Impairment limited UE use due to pain sternum, upper costochondral junctions left greater than right, swelling proximal sternum Commercial Collections Specialist Goal (LTG) Decrease pain to no greater than 2/10 with patient able to resume all activities including ADL's and usual functional activities without chest pain LTG Duration 10/06/21 stability Short Term Goal (STG) Pt will be able to safely ascend and descend a curb in order to be safe when in the community. 06/26-uses a cane and feels okay STG Duration 07/06/21 Commercial Collections Specialist Goal (LTG) Pt will feel comfortable navigating community with her . 08/06-does not feel like she has the stability and strength right now LTG Duration 10/06/21 pain Commercial Collections Specialist Goal (LTG) Pt will report SIJ, coccyx and R hip pain no greater than 2/ 10 on any given day for at least 2 week.s 06/26-5-608/06-06/15 LTG Duration 10/06/21 strength Short Term Goal (STG) pt will be indep w/HEP for core stability, hip stability, and balance. STG Duration achieved and advancing as tolerated Commercial Collections Specialist Goal (LTG) Pt will score at least 4/5 on all LE MMT to show improved strenght to improve pt mobility. LTG Duration 10/06/21 balance Impairment 35/56 Short Term Goal (STG) Pt will improve ORDOÑEZ balance score to at least 45 to show dec fall risk indoor 06/26-improved to 40 08/06-38 STG Duration 09/05 Residential Goal (LTG) Pt will improve ORDOÑEZ balance score to at least 50 to show dec fall risk in outdoors/ community. LTG Duration 10/06 One Impairment Unable to sit for more than one hour due to hip pain, and has difficulty sleeping and moving in bed due to pain in low back and buttock(wakes every 2 hours) Short Term Goal (STG) Pt will be able to do sit to stand from any surfaces w/o inc R hip or back pain. 06/26-no back pain but minor groin pain 08/06- still some pain in R hip STG Duration 09/05/21 Residential Goal (LTG) pt will be able to sleep and lay down w/o LB/SIJ pain or R hip pain. 06/26- sleeping still painful 08/06-with ibuprofen and sleeping pill she does okay and occ has to use heating pads LTG Duration 10/06/21 Assessment Summary Assessment Pt did well with all exercises except some discomfort noted and a pop feeling when got a little too low w/squat. She did require a lot of cueing for all exercise sfor form. She struggles to get good glute med engagment when WB on RLE but improves w/cues and focus. Dec pain in chest w/ manual thearpy today. Physical Therapy Plan Frequency and Duration Frequency of Treatment 1-2x/week Duration of Treatment 2 months Plan of Care Start Date 08/06/21 Plan of Care End Date 10/06/21 Next Visit Focus/Plan Next Note Type Treatment Note Next Visit Plan Combination land and aquatic PT with progression of gentle postural correction, rib mobility exercises and possibly manual techniques. Work on sit to stand mechanics and muscle activation and gait mechanics. Manual therapy and modalities as needed for pain control, decreased muscle tension. Discuss alternative therapies such as accupuncture , prolotherapy.
--- NOTE | 2021-09-11 14:37 | PT.OTN ---
Current Diagnoses Sacroiliitis, not elsewhere classified (09/11/21) Precordial pain (09/11/21) Other abnormalities of gait and mobility (09/11/21) Abnormal posture (09/11/21) Weakness (09/11/21) Other reduced mobility (09/11/21) Physical Therapy Treatment Note PT-OP-A Visit Information Start: 05/15/21 07:31 Freq: Status: Active Protocol: Document 09/11/21 13:57 [facility] (Rec: 09/11/21 14:37 [facility] [id number]) Out-Patient Physical Therapy Visit Information Visit Information Visit Type Treatment Note Visit Note 09/14 Visit Start Time 13:55 Visit Stop Time 14:43 Total Visit Minutes 48 Visit Number 24 Number of ASSET ACCOUNTANT Visits 0 PT-OP-B Current Condition Start: 05/15/21 07:31 Freq: Status: Active Protocol: Document 08/11/21 14:16 [facility] (Rec: 08/12/21 14:27 [facility] [id number]) Current Condition History of Current Condition Onset Date about 1 month ago Current Complaints SIJ pain and R hip pain & imbalance History of Current Condition 08/06-has had further testing of CT of chest and has not gotten injections or treatment of it. Another MD decided it was not worth getting a MRI for. It has now been 7 months since this pain started and was worsened w/brochontitis. Since taking 800 mg of ibu 3x/ day for past 2 weeks, she has noticed some improvement. Chest is made worst by bending over, deep breathing, sneezing and at night in bed. IE:Pt has history of chronic LBP and B foot pain w/history of falls and imbalance with multiple bouts of PT that have been successful at reducing pain in the past. Pt reports being sick the entire month of Mar w/brochitis. She started in Jan having costrocontritis. She was feeling better w/SI pain after PT last Jan. She had a hip injection in R hip in Feb. She had chest CT, EKG and it was negative. MD would not inject her d/t pt not getting CT of sternum as MD kept changing what was needed for injection. Pt hasn't seen custodian blood bank for 6 months. She had the wrong day and yesterday got 3/[address] to [place] and realized it was wrong appt time. She is unsure when she will see her. She took her first dose of forest since she was off them while sick. She was taking methotrexate all along. She is still having sinus issues since being sick and is seeing allergy MD in [place] at end of month. She is not stable at all she feels and had difficulty w/on/off curbs. Pt reports R foot is so painful unless she has her shoes on. This just starteda bout a week ago so she needs to schedule to go backt o foot MD. reports she feels really unstable at night. Pt reports she is having hip issues again . Pt reports SIJ pain started about 3 weeks ago. It came on suddnely w/o any underlying causes. Denies any recent falls. Pt reports pain is not killing her but it very irritating and yesterday coccyx was killing me. She started Medaterrain diet she started and is noticing she is gaining weight and it didn't help w/pain. Has to sleep on heating pad at night. Once she gets up and is moving, it is better. Pt reports she no longer gardens. She feels like she will fall fwd if leaning fwd too much to garden and did fall last summer. Prior Treatments and Tests Mult bouts PT in past w/ improved pain Thoracic MRI 04/28: IMPRESSION: 1. Probable synovial cyst resulting in [id number] canal stenosis at C7-T1 can be further evaluated with MRI cervical spine with and without contrast 2. Thoracic dextroscoliosis and multilevel degenerative changes Lumbar CT 09/10/20: MPRESSION: Multilevel degenerative disc disease and arthropathy results in varying degrees of central and foraminal stenosis, including severe central stenosis at L3- 4. L4-5 and L5-S1 discectomy and fusion with posterior kimi and screw instrumentation in position. No hardware failure or loosening. Decompressive L4 and L5 laminectomies PT-OP-C Subjective Start: 05/15/21 07:31 Freq: Status: Active Protocol: Document 09/11/21 13:57 [facility] (Rec: 09/11/21 14:37 [facility] [id number]) OP-PT Subjective Patient Comments Patient Comments Chest is worse in the AM and works itself out during the day. Her SI is a little better . SHe has been doing fine w/ the pool. Prednisone was inc from 2.5mg to 5 mg. Insurance is now denying both EMbril and Forest. She sees foot MD and spinal MD next week. Pt reports B pecs sore. PT-OP-D Balance Start: 05/15/21 07:31 Freq: Status: Active Protocol: Document 08/06/21 09:56 [facility] (Rec: 08/06/21 10:22 [facility] [id number]) Balance Tests Ordoñez Balance Test Ordoñez Balance Test Score 38 PT-OP-F Manual Assessment Start: 05/15/21 07:31 Freq: Status: Active Protocol: Document 05/15/21 10:38 [facility] (Rec: 05/15/21 12:15 [facility] [id number]) Manual Assessments Soft Tissue Assessment Soft Tissue Mobility Assessment B glute, R>L QL, ES B, R iliacus tenderness PT-OP-G Mobility & Gait Start: 05/15/21 07:31 Freq: Status: Active Protocol: Document 05/15/21 10:38 [facility] (Rec: 05/15/21 12:15 [facility] [id number]) OP Mobility Evaluation Bed Mobility Rolling able to roll w/pain Supine to and from Sit pain OP Gait Assessment Comments Gait Comments Very stiff and appears unsteady, lat shift w/WB, dec push off, dec stride length B PT-OP-J Posture/Palpation/Skin Start: 05/15/21 07:31 Freq: Status: Active Protocol: Document 05/15/21 10:38 [facility] (Rec: 05/15/21 12:15 [facility] [id number]) Posture Evaluation Comments Posture Comments fwd flex w/inch kyphosis PT-OP-K Range of Motion Start: 05/15/21 07:31 Freq: Status: Active Protocol: Document 08/06/21 09:56 [facility] (Rec: 08/06/21 10:22 [facility] [id number]) Lumbar Spine Range of Motion Lumbar Spine Active Degrees Rotation Left 56 Rotation Right 54 Comments thoracolumbar rotation PT-OP-L Special Tests Start: 05/15/21 07:31 Freq: Status: Active Protocol: Document 05/15/21 10:38 [facility] (Rec: 05/15/21 12:15 [facility] [id number]) Special Tests Lumbar Spine Special Tests Slump Test Results neg B Straight Leg Raise Test Results neg b PT-OP-M Strength Start: 05/15/21 07:31 Freq: Status: Active Protocol: Document 05/15/21 10:38 [facility] (Rec: 05/15/21 12:15 [facility] [id number]) Hip Strength Hip Manual Muscle Testing Left Flexion (L2) 3+ Fair+ Abduction 3 Fair External Rotation 3+ Fair+ Internal Rotation 3+ Fair+ Right Flexion (L2) 3+ Fair+ Abduction 3 Fair External Rotation 3+ Fair+ Internal Rotation 3+ Fair+ Knee Strength Knee Manual Muscle Testing Right Flexion (S2) 4- Good- Extension (L3) 4- Good- Comments pain in SI w/ext Left Flexion (S2) 4- Good- Extension (L3) 4+ Good+ Ankle/Foot Strength Ankle and Foot Manual Muscle Testing Right Dorsiflexion (L4) 3+ Fair+ Plantarflexion (S1) 3+ Fair+ Left Dorsiflexion (L4) 3+ Fair+ Plantarflexion (S1) 3+ Fair+ Comments painPF PT-OP-Q Treatments Start: 05/15/21 07:31 Freq: Status: Active Protocol: Document 09/11/21 13:57 [facility] (Rec: 09/11/21 14:37 [facility] [id number]) Cardio Equipment Recumbent Stepper (Sci-Fit) Duration (Minutes) 8 Resistance 1 Seat Position 11 Gym Equipment Therapeutic Ball supine Ball Size/Color 55cm Body Position Supine Reps/Duration 10 Comments knee flex max cues for core Therapeutic Exercises Supine Exercises pelvic tilts Supine Exercise Name w/bridge Side bilateral Reps/Minutes 5 sec x8 Comments cues for feet position Standing Exercises mini squat Side bilateral Equipment Used rail and chair Reps/Minutes 10 hip abd Side bilateral Reps/Minutes 10 Manual Therapy Treatment Soft Tissue Mobilization lateral hamstring Body Location right med Mobilization Type Rolling,Strumming,Sustained Pressure Intensity/Depth Moderate 3 Body Location B pecs & intercostals btwn ribs 1-4 Mobilization Type Rolling,Strumming Intensity/Depth Moderate Joint Mobilizations SC Joint L caudal FM ribs Comments 1. AP rib 1 & 2 & distaction from sternum 2. cadual rib 2&3 PT-OP-R Modalities Start: 05/15/21 07:31 Freq: Status: Active Protocol: Document 09/11/21 13:57 [facility] (Rec: 09/11/21 14:37 [facility] [id number]) Hot Pack/Cold Pack Treatment Cold Pack Location low back/B buttocks, left chest Treatment Duration (minutes) 10 PT-OP-S Aquatic Treatment Start: 07/14/21 14:44 Freq: Status: Active Protocol: Document 08/25/21 11:45 [facility] (Rec: 08/27/21 15:15 [facility] [id number]) Aquatics Treatment Pool Entry/Exit Pool Entry/Exit Method Lift Assistance Contact Guard Assistance, Verbal Cues Water Walking forward Water Level Chest Level Level of Assistance Verbal Cues Comments cues for smaller steps, gluteal activation Mountain Activities Mountain Activities Bicycle Other Activities deep water hang Equipment flotation belt Duration 10 min PT-OP-T Assessment and Plan Start: 05/15/21 07:31 Freq: Status: Active Protocol: Document 09/11/21 13:57 [facility] (Rec: 09/11/21 14:37 [facility] [id number]) Physical Therapy Assessment Goals sternal pain Impairment pain sternum, costochondral junction Impairment limited UE use due to pain sternum, upper costochondral junctions left greater than right, swelling proximal sternum Fci Goal (LTG) Decrease pain to no greater than 2/10 with patient able to resume all activities including ADL's and usual functional activities without chest pain LTG Duration 10/06/21 stability Short Term Goal (STG) Pt will be able to safely ascend and descend a curb in order to be safe when in the community. 06/26-uses a cane and feels okay STG Duration 07/06/21 [facility]ci Goal (LTG) Pt will feel comfortable navigating community with her . 08/06-does not feel like she has the stability and strength right now LTG Duration 10/06/21 pain Fci Goal (LTG) Pt will report SIJ, coccyx and R hip pain no greater than 2/ 10 on any given day for at least 2 week.s 06/26-5-08/15 08/06-06/15 LTG Duration 10/06/21 strength Short Term Goal (STG) pt will be indep w/HEP for core stability, hip stability, and balance. STG Duration achieved and advancing as tolerated [facility]ci Goal (LTG) Pt will score at least 4/5 on all LE MMT to show improved strenght to improve pt mobility. LTG Duration 10/06/21 balance Impairment 35/56 Short Term Goal (STG) Pt will improve ORDOÑEZ balance score to at least 45 to show dec fall risk indoor 06/26-improved to 40 08/06-38 STG Duration 09/05 [facility] Goal (LTG) Pt will improve ORDOÑEZ balance score to at least 50 to show dec fall risk in outdoors/ community. LTG Duration 10/06 One Impairment Unable to sit for more than one hour due to hip pain, and has difficulty sleeping and moving in bed due to pain in low back and buttock(wakes every 2 hours) Short Term Goal (STG) Pt will be able to do sit to stand from any surfaces w/o inc R hip or back pain. 06/26-no back pain but minor groin pain 08/06- still some pain in R hip STG Duration 09/05/21 Technical Operations Manager Goal (LTG) pt will be able to sleep and lay down w/o LB/SIJ pain or R hip pain. 06/26- sleeping still painful 08/06-with ibuprofen and sleeping pill she does okay and occ has to use heating pads LTG Duration 10/06/21 Assessment Summary Assessment Pt had improved comfort in L chest w/manual. She showed much improvement w/exercise performance and was able to wb better on RLE today Physical Therapy Plan Frequency and Duration Frequency of Treatment 1-2x/week Duration of Treatment 2 months Plan of Care Start Date 08/06/21 Plan of Care End Date 10/06/21 Next Visit Focus/Plan Next Note Type Treatment Note Next Visit Plan Combination land and aquatic PT with progression of gentle postural correction, rib mobility exercises and possibly manual techniques. Work on sit to stand mechanics and muscle activation and gait mechanics. Manual therapy and modalities as needed for pain control, decreased muscle tension. Discuss alternative therapies such as accupuncture , prolotherapy.
--- NOTE | 2021-09-25 14:35 | PT.OTN ---
Current Diagnoses Sacroiliitis, not elsewhere classified (09/25/21) Precordial pain (09/25/21) Other abnormalities of gait and mobility (09/25/21) Abnormal posture (09/25/21) Weakness (09/25/21) Other reduced mobility (09/25/21) Physical Therapy Treatment Note PT-OP-A Visit Information Start: 05/15/21 07:31 Freq: Status: Active Protocol: Document 09/25/21 13:56 [facility] (Rec: 09/25/21 14:35 [facility] [id number]) Out-Patient Physical Therapy Visit Information Visit Information Visit Type Treatment Note Visit Note 10/15 Visit Start Time 13:49 Visit Stop Time 14:39 Total Visit Minutes 50 Visit Number 25 Number of LOG WASHER Visits 0 PT-OP-B Current Condition Start: 05/15/21 07:31 Freq: Status: Active Protocol: Document 08/11/21 14:16 [facility] (Rec: 08/12/21 14:27 [facility] [id number]) Current Condition History of Current Condition Onset Date about 1 month ago Current Complaints SIJ pain and R hip pain & imbalance History of Current Condition 08/06-has had further testing of CT of chest and has not gotten injections or treatment of it. Another MD decided it was not worth getting a MRI for. It has now been 7 months since this pain started and was worsened w/brochontitis. Since taking 800 mg of ibu 3x/ day for past 2 weeks, she has noticed some improvement. Chest is made worst by bending over, deep breathing, sneezing and at night in bed. IE:Pt has history of chronic LBP and B foot pain w/history of falls and imbalance with multiple bouts of PT that have been successful at reducing pain in the past. Pt reports being sick the entire month of Mar w/brochitis. She started in Jan having costrocontritis. She was feeling better w/SI pain after PT last Jan. She had a hip injection in R hip in Feb. She had chest CT, EKG and it was negative. MD would not inject her d/t pt not getting CT of sternum as MD kept changing what was needed for injection. Pt hasn't seen infusion pharmacist for 6 months. She had the wrong day and yesterday got 3/[address] to [place] and realized it was wrong appt time. She is unsure when she will see her. She took her first dose of forest since she was off them while sick. She was taking methotrexate all along. She is still having sinus issues since being sick and is seeing allergy MD in [place] at end of month. She is not stable at all she feels and had difficulty w/on/off curbs. Pt reports R foot is so painful unless she has her shoes on. This just starteda bout a week ago so she needs to schedule to go backt o foot MD. reports she feels really unstable at night. Pt reports she is having hip issues again . Pt reports SIJ pain started about 3 weeks ago. It came on suddnely w/o any underlying causes. Denies any recent falls. Pt reports pain is not killing her but it very irritating and yesterday coccyx was killing me. She started Medaterrain diet she started and is noticing she is gaining weight and it didn't help w/pain. Has to sleep on heating pad at night. Once she gets up and is moving, it is better. Pt reports she no longer gardens. She feels like she will fall fwd if leaning fwd too much to garden and did fall last summer. Prior Treatments and Tests Mult bouts PT in past w/ improved pain Thoracic MRI 04/28: IMPRESSION: 1. Probable synovial cyst resulting in wxdi-se-[id number] canal stenosis at C7-T1 can be further evaluated with MRI cervical spine with and without contrast 2. Thoracic dextroscoliosis and multilevel degenerative changes Lumbar CT 09/10/20: MPRESSION: Multilevel degenerative disc disease and arthropathy results in varying degrees of central and foraminal stenosis, including severe central stenosis at L3- 4. L4-5 and L5-S1 discectomy and fusion with posterior kimi and screw instrumentation in position. No hardware failure or loosening. Decompressive L4 and L5 laminectomies PT-OP-C Subjective Start: 05/15/21 07:31 Freq: Status: Active Protocol: Document 09/25/21 13:56 [facility] (Rec: 09/25/21 14:35 [facility] [id number]) OP-PT Subjective Patient Comments Patient Comments Pt reports the last 24 hours have been awful. Her R SI has given her a lot of issue. She is on a new med now and off Forest. PT-OP-D Balance Start: 05/15/21 07:31 Freq: Status: Active Protocol: Document 08/06/21 09:56 [facility] (Rec: 08/06/21 10:22 [facility] [id number]) Balance Tests Ordoñez Balance Test Rodoñez Balance Test Score 38 PT-OP-F Manual Assessment Start: 05/15/21 07:31 Freq: Status: Active Protocol: Document 05/15/21 10:38 [facility] (Rec: 05/15/21 12:15 [facility] [id number]) Manual Assessments Soft Tissue Assessment Soft Tissue Mobility Assessment B glute, R>L QL, ES B, R iliacus tenderness PT-OP-G Mobility & Gait Start: 05/15/21 07:31 Freq: Status: Active Protocol: Document 05/15/21 10:38 [facility] (Rec: 05/15/21 12:15 [facility] [id number]) OP Mobility Evaluation Bed Mobility Rolling able to roll w/pain Supine to and from Sit pain OP Gait Assessment Comments Gait Comments Very stiff and appears unsteady, lat shift w/WB, dec push off, dec stride length B PT-OP-J Posture/Palpation/Skin Start: 05/15/21 07:31 Freq: Status: Active Protocol: Document 05/15/21 10:38 [facility] (Rec: 05/15/21 12:15 [facility] [id number]) Posture Evaluation Comments Posture Comments fwd flex w/inch kyphosis PT-OP-K Range of Motion Start: 05/15/21 07:31 Freq: Status: Active Protocol: Document 08/06/21 09:56 [facility] (Rec: 08/06/21 10:22 [facility] [id number]) Lumbar Spine Range of Motion Lumbar Spine Active Degrees Rotation Left 56 Rotation Right 54 Comments thoracolumbar rotation PT-OP-L Special Tests Start: 05/15/21 07:31 Freq: Status: Active Protocol: Document 05/15/21 10:38 [facility] (Rec: 05/15/21 12:15 [facility] [id number]) Special Tests Lumbar Spine Special Tests Slump Test Results neg B Straight Leg Raise Test Results neg b PT-OP-M Strength Start: 05/15/21 07:31 Freq: Status: Active Protocol: Document 05/15/21 10:38 [facility] (Rec: 05/15/21 12:15 [facility] [id number]) Hip Strength Hip Manual Muscle Testing Left Flexion (L2) 3+ Fair+ Abduction 3 Fair External Rotation 3+ Fair+ Internal Rotation 3+ Fair+ Right Flexion (L2) 3+ Fair+ Abduction 3 Fair External Rotation 3+ Fair+ Internal Rotation 3+ Fair+ Knee Strength Knee Manual Muscle Testing Right Flexion (S2) 4- Good- Extension (L3) 4- Good- Comments pain in SI w/ext Left Flexion (S2) 4- Good- Extension (L3) 4+ Good+ Ankle/Foot Strength Ankle and Foot Manual Muscle Testing Right Dorsiflexion (L4) 3+ Fair+ Plantarflexion (S1) 3+ Fair+ Left Dorsiflexion (L4) 3+ Fair+ Plantarflexion (S1) 3+ Fair+ Comments painPF PT-OP-Q Treatments Start: 05/15/21 07:31 Freq: Status: Active Protocol: Document 09/25/21 13:56 [facility] (Rec: 09/25/21 14:35 [facility] [id number]) Cardio Equipment Recumbent Stepper (Sci-Fit) Duration (Minutes) 8 Resistance 1.5 Seat Position 11 Therapeutic Exercises Sitting Exercises march Sitting Exercise Name focus on core & press thru opp extremity to ground Side bilateral Reps/Minutes 10 dynadisc Sitting Exercise Name 1. circles 2. pelvic tilts 3. BUE raise 4.LE press alt 5. ball press Side bilateral Reps/Minutes 10 ea Therapeutic Activity Therapeutic Activity bed positioning Comments review, encouraged use of towel under side and abdomen & per handout given. Discusse mary carmen that gives her support in bed PT-OP-R Modalities Start: 05/15/21 07:31 Freq: Status: Active Protocol: Document 09/25/21 13:56 [facility] (Rec: 09/25/21 14:35 [facility] [id number]) Hot Pack/Cold Pack Treatment Cold Pack Location low back/B buttocks Treatment Duration (minutes) 10 PT-OP-S Aquatic Treatment Start: 07/14/21 14:44 Freq: Status: Active Protocol: Document 08/25/21 11:45 [facility] (Rec: 08/27/21 15:15 [facility] [id number]) Aquatics Treatment Pool Entry/Exit Pool Entry/Exit Method Lift Assistance Contact Guard Assistance, Verbal Cues Water Walking forward Water Level Chest Level Level of Assistance Verbal Cues Comments cues for smaller steps, gluteal activation Bryson Activities Bryson Activities Bicycle Other Activities deep water hang Equipment flotation belt Duration 10 min PT-OP-T Assessment and Plan Start: 05/15/21 07:31 Freq: Status: Active Protocol: Document 09/25/21 13:56 [facility] (Rec: 09/25/21 14:35 [facility] [id number]) Physical Therapy Assessment Goals sternal pain Impairment pain sternum, costochondral junction Impairment limited UE use due to pain sternum, upper costochondral junctions left greater than right, swelling proximal sternum Archeologist Goal (LTG) Decrease pain to no greater than 2/10 with patient able to resume all activities including ADL's and usual functional activities without chest pain LTG Duration 10/06/21 stability Short Term Goal (STG) Pt will be able to safely ascend and descend a curb in order to be safe when in the community. 06/26-uses a cane and feels okay STG Duration 07/06/21 Intermediate Goal (LTG) Pt will feel comfortable navigating community with her . 08/06-does not feel like she has the stability and strength right now LTG Duration 10/06/21 pain Archeologist Goal (LTG) Pt will report SIJ, coccyx and R hip pain no greater than 2/ 10 on any given day for at least 2 week.s 06/26-5-08/15 08/06-06/15 LTG Duration 10/06/21 strength Short Term Goal (STG) pt will be indep w/HEP for core stability, hip stability, and balance. STG Duration achieved and advancing as tolerated Intermediate Goal (LTG) Pt will score at least 4/5 on all LE MMT to show improved strenght to improve pt mobility. LTG Duration 10/06/21 balance Impairment 35/56 Short Term Goal (STG) Pt will improve ORDOÑEZ balance score to at least 45 to show dec fall risk indoor 06/26-improved to 40 /-38 STG Duration 09/05 Archeologist Goal (LTG) Pt will improve ORDOÑEZ balance score to at least 50 to show dec fall risk in outdoors/ community. LTG Duration 10/06 One Impairment Unable to sit for more than one hour due to hip pain, and has difficulty sleeping and moving in bed due to pain in low back and buttock(wakes every 2 hours) Short Term Goal (STG) Pt will be able to do sit to stand from any surfaces w/o inc R hip or back pain. 06/26-no back pain but minor groin pain 08/06- still some pain in R hip STG Duration 09/05/21 Intermediate Goal (LTG) pt will be able to sleep and lay down w/o LB/SIJ pain or R hip pain. 06/26- sleeping still painful 08/06-with ibuprofen and sleeping pill she does okay and occ has to use heating pads LTG Duration 10/06/21 Assessment Summary Assessment Pt required cues with exercise and discussed small range and very slow progression at home . Discussed w/pt plan for DC next session. Pt reported a lot of relief in s/l when given appropriate propping Physical Therapy Plan Frequency and Duration Frequency of Treatment 1-2x/week Duration of Treatment 2 months Plan of Care Start Date 08/06/21 Plan of Care End Date 10/06/21 Next Visit Focus/Plan Next Note Type Discharge Summary Next Visit Plan set up pt for DC
--- NOTE | 2021-10-02 15:21 | PT.OTN ---
Current Diagnoses Sacroiliitis, not elsewhere classified (10/02/21) Precordial pain (10/02/21) Other abnormalities of gait and mobility (10/02/21) Abnormal posture (10/02/21) Weakness (10/02/21) Other reduced mobility (10/02/21) Physical Therapy Treatment Note PT-OP-A Visit Information Start: 05/15/21 07:31 Freq: Status: Active Protocol: Document 10/02/21 13:03 [facility] (Rec: 10/02/21 15:20 [facility] [id number]) Out-Patient Physical Therapy Visit Information Visit Information Visit Type Discharge Summary Visit Start Time 13:50 Visit Stop Time 14:30 Total Visit Minutes 40 Visit Number 26 Number of METAL CHECKER Visits 0 PT-OP-B Current Condition Start: 05/15/21 07:31 Freq: Status: Active Protocol: Document 08/11/21 14:16 [facility] (Rec: 08/12/21 14:27 [facility] [id number]) Current Condition History of Current Condition Onset Date about 1 month ago Current Complaints SIJ pain and R hip pain & imbalance History of Current Condition 08/06-has had further testing of CT of chest and has not gotten injections or treatment of it. Another MD decided it was not worth getting a MRI for. It has now been 7 months since this pain started and was worsened w/brochontitis. Since taking 800 mg of ibu 3x/ day for past 2 weeks, she has noticed some improvement. Chest is made worst by bending over, deep breathing, sneezing and at night in bed. IE:Pt has history of chronic LBP and B foot pain w/history of falls and imbalance with multiple bouts of PT that have been successful at reducing pain in the past. Pt reports being sick the entire month of Mar w/brochitis. She started in Jan having costrocontritis. She was feeling better w/SI pain after PT last Jan. She had a hip injection in R hip in Feb. She had chest CT, EKG and it was negative. MD would not inject her d/t pt not getting CT of sternum as MD kept changing what was needed for injection. Pt hasn't seen meter installer and remover for 6 months. She had the wrong day and yesterday got 3/[address] to [place] and realized it was wrong appt time. She is unsure when she will see her. She took her first dose of forest since she was off them while sick. She was taking methotrexate all along. She is still having sinus issues since being sick and is seeing allergy MD in [place] at end of month. She is not stable at all she feels and had difficulty w/on/off curbs. Pt reports R foot is so painful unless she has her shoes on. This just starteda bout a week ago so she needs to schedule to go backt o foot MD. reports she feels really unstable at night. Pt reports she is having hip issues again . Pt reports SIJ pain started about 3 weeks ago. It came on suddnely w/o any underlying causes. Denies any recent falls. Pt reports pain is not killing her but it very irritating and yesterday coccyx was killing me. She started Medaterrain diet she started and is noticing she is gaining weight and it didn't help w/pain. Has to sleep on heating pad at night. Once she gets up and is moving, it is better. Pt reports she no longer gardens. She feels like she will fall fwd if leaning fwd too much to garden and did fall last summer. Prior Treatments and Tests Mult bouts PT in past w/ improved pain Thoracic MRI 04/28: IMPRESSION: 1. Probable synovial cyst resulting in [id number] canal stenosis at C7-T1 can be further evaluated with MRI cervical spine with and without contrast 2. Thoracic dextroscoliosis and multilevel degenerative changes Lumbar CT 09/10/20: MPRESSION: Multilevel degenerative disc disease and arthropathy results in varying degrees of central and foraminal stenosis, including severe central stenosis at L3- 4. L4-5 and L5-S1 discectomy and fusion with posterior kimi and screw instrumentation in position. No hardware failure or loosening. Decompressive L4 and L5 laminectomies PT-OP-C Subjective Start: 05/15/21 07:31 Freq: Status: Active Protocol: Document 10/02/21 13:03 [facility] (Rec: 10/02/21 15:20 [facility] [id number]) OP-PT Subjective Patient Comments Patient Comments pt reports leaning in chair doing yard work and back was tight for a few days. PT-OP-D Balance Start: 05/15/21 07:31 Freq: Status: Active Protocol: Document 10/02/21 13:03 [facility] (Rec: 10/02/21 15:20 [facility] [id number]) Balance Tests Ordoñez Balance Test Ordoñez Balance Test Score 48 PT-OP-F Manual Assessment Start: 05/15/21 07:31 Freq: Status: Active Protocol: Document 05/15/21 10:38 [facility] (Rec: 05/15/21 12:15 [facility] [id number]) Manual Assessments Soft Tissue Assessment Soft Tissue Mobility Assessment B glute, R>L QL, ES B, R iliacus tenderness PT-OP-G Mobility & Gait Start: 05/15/21 07:31 Freq: Status: Active Protocol: Document 05/15/21 10:38 [facility] (Rec: 05/15/21 12:15 [facility] [id number]) OP Mobility Evaluation Bed Mobility Rolling able to roll w/pain Supine to and from Sit pain OP Gait Assessment Comments Gait Comments Very stiff and appears unsteady, lat shift w/WB, dec push off, dec stride length B PT-OP-J Posture/Palpation/Skin Start: 05/15/21 07:31 Freq: Status: Active Protocol: Document 05/15/21 10:38 [facility] (Rec: 05/15/21 12:15 [facility] [id number]) Posture Evaluation Comments Posture Comments fwd flex w/inch kyphosis PT-OP-K Range of Motion Start: 05/15/21 07:31 Freq: Status: Active Protocol: Document 08/06/21 09:56 [facility] (Rec: 08/06/21 10:22 [facility] [id number]) Lumbar Spine Range of Motion Lumbar Spine Active Degrees Rotation Left 56 Rotation Right 54 Comments thoracolumbar rotation PT-OP-L Special Tests Start: 05/15/21 07:31 Freq: Status: Active Protocol: Document 05/15/21 10:38 [facility] (Rec: 05/15/21 12:15 [facility] [id number]) Special Tests Lumbar Spine Special Tests Slump Test Results neg B Straight Leg Raise Test Results neg b PT-OP-M Strength Start: 05/15/21 07:31 Freq: Status: Active Protocol: Document 10/02/21 13:03 [facility] (Rec: 10/02/21 15:20 [facility] [id number]) Hip Strength Hip Manual Muscle Testing Left Flexion (L2) 4 Good External Rotation 4- Good- Internal Rotation 4 Good Right Flexion (L2) 4 Good External Rotation 4- Good- Internal Rotation 3+ Fair+ Knee Strength Knee Manual Muscle Testing Right Flexion (S2) 4+ Good+ Extension (L3) 4+ Good+ Left Flexion (S2) 4+ Good+ Extension (L3) 4+ Good+ Ankle/Foot Strength Ankle and Foot Manual Muscle Testing Right Dorsiflexion (L4) 4 Good Plantarflexion (S1) 4 Good Left Dorsiflexion (L4) 4 Good Plantarflexion (S1) 4 Good Comments painPF PT-OP-Q Treatments Start: 05/15/21 07:31 Freq: Status: Active Protocol: Document 10/02/21 13:03 [facility] (Rec: 10/02/21 15:20 [facility] [id number]) Therapeutic Exercises Sitting Exercises ball squeeze Sitting Exercise Name fwd press down & lat press down Side bilateral Comments 5 sec x4 ea direction w/cues Self-Care/Home Management Treatment Education Other Education discussed what exercises to cont and edu importance of cont pec stretch, edu to do alt w/hip abd and focus on glute contraction to avoid lean or hip drop. Worked on bending over w/cues for core engagment and glute engagment to get back up, discussed pillow set up for supine sleep positioning. Discussed cont w /housekeeping/laundry for inflamation and pointed out improvements since start of new med and diet. PT-OP-R Modalities Start: 05/15/21 07:31 Freq: Status: Active Protocol: Document 09/25/21 13:56 [facility] (Rec: 09/25/21 14:35 [facility] [id number]) Hot Pack/Cold Pack Treatment Cold Pack Location low back/B buttocks Treatment Duration (minutes) 10 PT-OP-S Aquatic Treatment Start: 07/14/21 14:44 Freq: Status: Active Protocol: Document 08/25/21 11:45 [facility] (Rec: 08/27/21 15:15 [facility] [id number]) Aquatics Treatment Pool Entry/Exit Pool Entry/Exit Method Lift Assistance Contact Guard Assistance, Verbal Cues Water Walking forward Water Level Chest Level Level of Assistance Verbal Cues Comments cues for smaller steps, gluteal activation Motley Activities Motley Activities Bicycle Other Activities deep water hang Equipment flotation belt Duration 10 min PT-OP-T Assessment and Plan Start: 05/15/21 07:31 Freq: Status: Active Protocol: Document 10/02/21 13:03 [facility] (Rec: 10/02/21 15:20 [facility] [id number]) Physical Therapy Assessment Goals sternal pain Impairment pain sternum, costochondral junction Impairment limited UE use due to pain sternum, upper costochondral junctions left greater than right, swelling proximal sternum Plant Maintenance Mechanic Goal (LTG) Decrease pain to no greater than 2/10 with patient able to resume all activities including ADL's and usual functional activities without chest pain 10/02-06/15 LTG Duration improved stability Short Term Goal (STG) Pt will be able to safely ascend and descend a curb in order to be safe when in the community. 06/26-uses a cane and feels okay STG Duration can w/cane but is nervous w/o cane Plant Maintenance Mechanic Goal (LTG) Pt will feel comfortable navigating community with her . 08/06-does not feel like she has the stability and strength right now LTG Duration limited in how much she can do pain Plant Maintenance Mechanic Goal (LTG) Pt will report SIJ, coccyx and R hip pain no greater than 2/ 10 on any given day for at least 2 week.s 06/26-5-08/15 08/06-06/15 LTG Duration 3-06/15 now strength Short Term Goal (STG) pt will be indep w/HEP for core stability, hip stability, and balance. STG Duration achieved and advancing as tolerated Plant Maintenance Mechanic Goal (LTG) Pt will score at least 4/5 on all LE MMT to show improved strenght to improve pt mobility. LTG Duration improved balance Impairment 35/56 Short Term Goal (STG) Pt will improve ORDOÑEZ balance score to at least 45 to show dec fall risk indoor 06/26-improved to 40 08/06-38 STG Duration achieved to48 Mcc Goal (LTG) Pt will improve ORDOÑEZ balance score to at least 50 to show dec fall risk in outdoors/ community. LTG Duration improve to 48 One Impairment Unable to sit for more than one hour due to hip pain, and has difficulty sleeping and moving in bed due to pain in low back and buttock(wakes every 2 hours) Short Term Goal (STG) Pt will be able to do sit to stand from any surfaces w/o inc R hip or back pain. 06/26-no back pain but minor groin pain 08/06- still some pain in R hip STG Duration achieved Mcc Goal (LTG) pt will be able to sleep and lay down w/o LB/SIJ pain or R hip pain. 06/26- sleeping still painful 08/06-with ibuprofen and sleeping pill she does okay and occ has to use heating pads LTG Duration does ok w/sleeping pill Assessment Summary Assessment Pt has started to plateau overall with therapy although has made a lot of improvemnts in pain, strength and balance. in past week, pt is reporting dec pain but has had change in meds and diet. Encouraged pt to cont HEP and positioning in bed and w/posture. SHe is indep w/HEP and DC at this time. Physical Therapy Plan Discharge Physical Therapy Discharge Comments pt met some goals but is overall starting to plateau and has HEP and is indep
== END 2021-10-03 08:35 | disposition home or self-care (01) ==
LOC: PHYS 13:45
PROVIDERS: Family Provider Physician Assistant; PCP Physician Assistant; Referring Provider Physician Assistant; Visit Provider Physician Assistant
DX: M46.1 Sacroiliitis, not elsewhere classified (principal); Z74.09 Other reduced mobility; R53.1 Weakness; R29.3 Abnormal posture; R26.89 Other abnormalities of gait and mobility; R07.2 Precordial pain
CPT/HCPCS: 97010; 97110; 97112; 97113; 97140; 97162; 97164; 97530; 97535

== ENCOUNTER → 2022-01-07 11:28 | Outpatient (CLI) | payer MEDICARE, SELFPAY ==
--- NOTE | 2022-01-07 | DI.MG.S_ITS ---
BILATERAL DIGITAL SCREENING MAMMOGRAM 3D/2D WITH CAD: 01/07/2022 CLINICAL: Routine screening. Comparison is made to exams dated: 10/26/2020 mammogram, 03/29/2019 mammogram, 04/26/2019 mammogram, 08/30/2017 mammogram, and 06/09/2016 mammogram - [facility]. There are scattered areas of fibroglandular density in both breasts (category b / 25%-50% glandular tissue). Current study was also evaluated with a Computer Aided Detection (CAD) system. There is a possible new irregular equal density asymmetry with an obscured and indistinct margin in the right breast anterior depth central to the nipple seen on the craniocaudal view only. No other significant masses, calcifications, or other findings are seen in either breast. IMPRESSION: INCOMPLETE: NEEDS ADDITIONAL IMAGING EVALUATION The possible new irregular equal density asymmetry in the right breast is indeterminate. Additional views with possible ultrasound are recommended. Based on the Tyrer Cuzick model (a risk assessment model) the patient's lifetime risk is 4.7% and her 10 year risk is 3.5%. According to the ACR, ACS, and NCCN guidelines, an annual breast MRI exam along with mammogram is recommended if the patient's lifetime risk is 20% or greater. This exam was interpreted at Station ID: [id number]. NOTE: For mammograms, a report in lay terms will be sent to the patient. Approximately 15% of breast malignancies will not be visualized mammographically. In the management of a palpable breast mass, a negative mammogram must not discourage biopsy of a clinically suspicious lesion. Electronically Signed By: Yolette cuevas/francy:01/07/2022 16:51:29 copy to: Justin Gayle letter sent: Additional Imaging Needed ACR BI-RADS Category 0: Incomplete 3340F
== END ==
PROVIDERS: Family Provider Physician Assistant; PCP Physician Assistant; Referring Provider Physician Assistant; Visit Provider Physician Assistant
DX: Z12.31 Encounter for screening mammogram for malignant neoplasm of breast (principal)
CPT/HCPCS: 77063; 77067

== ENCOUNTER → 2022-01-08 15:55 | Outpatient (CLI) | payer MEDICARE, SELFPAY ==
--- NOTE | 2022-01-08 15:57 | DI.CT.S_ITS ---
PROCEDURE: CT LUMBAR SPINE WO CON INDICATIONS: S/P LUMBAR FUSION/BILATERAL LEG PAIN/SACROILITIS TECHNIQUE: Noncontrast 3 mm thick sections acquired from the T12 level to the sacrum. Sagittal and coronal reformats were constructed. For radiation dose reduction, the following was used: automated exposure control. COMPARISON: [facility], CT, CT LUMBAR SPINE WO CON, 09/10/2020, 15:25. FINDINGS: Image quality: Excellent. Bones: Postoperative changes of pedicular screw and kimi fixation with discectomies at L4-5 and L5-S1. No hardware malfunction. No perihardware lucency to suggest loosening. There is 8 mm anterolisthesis of L3-4. No acute vertebral body compression fractures. No suspicious lytic or blastic bony lesions. T12-L1: No significant disc bulge. The foramina and central canal are patent. L1-L2: No significant disc bulge. The foramina and central canal are patent. L2-L3: No significant disc bulge. The foramina and central canal are patent. L3-L4: Complete loss of the disc space with endplate degenerative changes and vacuum disc changes. There is 8 mm anterolisthesis of L3 over L4. There is a diffuse disc bulge. The foramina have moderate stenosis bilaterally. Facet arthrosis, ligamentum flavum hypertrophy, and circumferential disc bulge result in severe central canal stenosis. L4-L5: Discectomy and fusion with disc spacer, and laminotomy has been performed. The foramina and central canal are patent. L5-S1: Discectomy and fusion with disc spacer and laminotomy has been performed. The foramina has mild stenosis. The central canal is patent. Soft tissues: No retroperitoneal masses or hematomas. Visualized aorta is normal in caliber. IMPRESSION: 1. Postoperative changes of L4-5 and L5-S1 discectomy with fusion and posterior pedicular screw and kimi fixation. No hardware failure or loosening. Decompressive L4 and L5 laminectomies. 2. Multilevel degenerative disc disease most prominent at L3-4 as described above with severe central canal stenosis at L3-4, unchanged. Dictated by: Reece Yao M.D. on 01/09/2022 at 11:20 Approved by: Reece Yao M.D. on 01/09/2022 at 12:02
--- NOTE | 2022-01-08 17:01 | DI.MRI.S_ITS ---
PROCEDURE: MR LUMBAR SPINE WO CON INDICATIONS: S/P LUMBAR FUSION/BILATERAL LEG PAIN TECHNIQUE: Noncontrast sagittal T1 spin echo and T2 fast echo, sagittal STIR, and T2 fast spin echo through the lumbar spine. In cases with scoliosis, additional coronal T2 fast spin echo may be performed. COMPARISON: [facility], CT, CT LUMBAR SPINE WO CON, 01/08/2022, 16:14. [facility], CT, CT LUMBAR SPINE WO CON, 09/10/2020, 15:25. [facility], MR, MR LUMBAR SPINE WO CON, 07/15/2020, 9:32. FINDINGS: Image quality: Excellent. Alignment and Curvature: Posterior fusion and discectomy are present from L4 through S1. Decompressive laminectomies are noted at L4-L5. There is grade 1 anterolisthesis of L3 on L4, unchanged Bone Marrow: Marrow is of normal overall signal. Reactive endplate changes are present L3-4, L4-5 L5-S1. No acute vertebral body compression fractures. Spinal Cord: Conus medullaris terminates at the L1-2 level. Visualized cord demonstrates normal signal and size. Paraspinous Soft Tissues: No paravertebral masses. Simple left renal cyst is noted. Discs: Moderate to severe disc desiccation is present most severe at L3-4 and L5-S1. L1-L2: No disc bulge, spinal stenosis or foraminal narrowing. Facet and ligamentum flavum hypertrophy are present. Minimal epidural lipomatosis. No interval change. L2-L3: Mild disc bulge with minimal canal narrowing. Minimal to mild left foraminal narrowing with facet and ligamentum flavum hypertrophy. Minimal epidural lipomatosis. No appreciable interval progression. L3-L4: Disc bulge with superimposed protrusion. In addition, there appears to be an extruded component extending cranially, new compared to prior MRI 07/15/2020. This area is difficult to evaluate on CT exam of 09/10/2020 secondary to significant artifact from surgical hardware and difficult to determine if this finding was present at that time. There is significant right lateral recess compromise. There is overall severe spinal stenosis with compression of the canal. Severe right and moderate to severe left foraminal narrowing, minimally progressive. Facet and ligamentum flavum hypertrophy are present. L4-L5: Postsurgical changes are present. No spinal stenosis. Minimal to mild bilateral foraminal narrowing unchanged. L5-S1: Postsurgical changes are present. Severe left and moderate right foraminal narrowing with facet hypertrophy. Overall stable in appearance. IMPRESSION: Multilevel postsurgical and degenerative changes. Prominent disc bulge with superimposed protrusion at what appears to be a new extrusion component at L3-4. There is persistent significant compromise of the right lateral recess as well as severe spinal stenosis. Dictated by: Ruth Flores M.D. on 01/09/2022 at 8:31 Approved by: Ruth Flores M.D. on 01/09/2022 at 8:47
== END ==
PROVIDERS: Family Provider Physician Assistant; PCP Physician Assistant; Referring Provider Neurological Surgery; Visit Provider Neurological Surgery
DX: M47.816 Spondylosis without myelopathy or radiculopathy, lumbar region (principal); M79.604 Pain in right leg; M48.061 Spinal stenosis, lumbar region without neurogenic claudication; M51.26 Other intervertebral disc displacement, lumbar region; M79.605 Pain in left leg; M46.1 Sacroiliitis, not elsewhere classified; Z98.1 Arthrodesis status
CPT/HCPCS: 72131; 72148

== ENCOUNTER → 2022-02-06 08:37 | Outpatient (CLI) | payer MEDICARE, SELFPAY ==
--- NOTE | 2022-02-06 | DI.US.S_ITS ---
LIMITED ULTRASOUND OF RIGHT BREAST: 02/06/2022 CLINICAL: Patient returns today to evaluate a focal asymmetry in the right breast. Comparison is made to exams dated: 02/06/2022 mammogram, 01/07/2022 mammogram, and 10/26/2020 mammogram - [facility]. Ultrasound of the right breast retroareolar was performed. Nguyen scale images of the real-time examination were reviewed. No significant abnormalities were seen sonographically in the right breast. Specifically, no finding to correspond to the patient's probably resolved screening mammographic abnormality. IMPRESSION: PROBABLY BENIGN There is no sonographic correlate to the patient's probably resolved mammographic asymmetry. 6 month follow up right mammogram is recommended to document stability. Findings and recommendations were conveyed to the patient at time of exam. This exam was interpreted at Station ID: [id number]. Electronically Signed By: Yolette cuevas/:02/06/2022 09:41:33 copy to: Justin Gayle letter sent: Followup Recommended Ultrasound BI-RADS: 3 Probably benign
--- NOTE | 2022-02-06 08:53 | DI.MG.S_ITS ---
Procedure: MM special view RT UNILATERAL RIGHT DIGITAL DIAGNOSTIC MAMMOGRAM 3D/2D WITH ADDITIONAL VIEWS: 02/06/2022 CLINICAL: Additional evaluation requested from prior study. Comparison is made to exams dated: 01/07/2022 mammogram, 10/26/2020 mammogram, and 03/29/2019 mammogram - [facility]. There are scattered areas of fibroglandular density in the right breast (category b / 25%-50% glandular tissue). There is a possible new irregular equal density asymmetry with an obscured and indistinct margin in the right breast anterior depth central to the nipple seen on the craniocaudal view only. However, this is not seen in additional views and disperses with spot compression. No other significant masses or calcifications are seen in the breast. IMPRESSION: INCOMPLETE: NEEDS ADDITIONAL IMAGING EVALUATION The possible new irregular equal density asymmetry in the right breast most likely is fibroglandular tissue or fibrosis but remains indeterminate. An ultrasound is recommended. This was performed immediately following this exam. Based on the Tyrer Cuzick model (a risk assessment model) the patient?s lifetime risk is 4.7% and her 10 year risk is 3.5%. According to the ACR, ACS, and NCCN guidelines, an annual breast MRI exam along with mammogram is recommended if the patient?s lifetime risk is 20% or greater. Continued Report - Page 2 of 2 Patient Name: SHARAN HUBBARD date: 1950 Sex: F Attending Physician: Essie Indications: Date: 02/06/2022 08:39 At the request of: ELMA PERERA Procedure: MM special view RT This exam was interpreted at Station ID: [id number]. NOTE: For mammograms, a report in lay terms will be sent to the patient. Approximately 15% of breast malignancies will not be visualized mammographically. In the management of a palpable breast mass, a negative mammogram must not discourage biopsy of a clinically suspicious lesion. Electronically Signed By: Yolette cuevas/:02/06/2022 09:04:48 copy to: Justin Gayle ACR BI-RADS Category 0: Incomplete [id number]
== END ==
PROVIDERS: Family Provider Physician Assistant; PCP Physician Assistant; Referring Provider Physician Assistant; Visit Provider Physician Assistant
DX: R92.8 Other abnormal and inconclusive findings on diagnostic imaging of breast (principal)
CPT/HCPCS: 76642; 77065; G0279

== ENCOUNTER → 2022-02-18 09:46 | Outpatient (CLI) | payer MEDICARE, SELFPAY ==
[2022-02-18 10:50] LABS: D Dimer 1303 ng/ml (<500)
[2022-02-18 11:22] LABS: NT-proBNP (BNP-Adult 18+) 298 pg/mL (<125); Troponin I < 0.012 ng/mL (0.01-0.034)
== END ==
PROVIDERS: Family Provider Physician Assistant; PCP Physician Assistant; Referring Provider Physician Assistant Medical; Visit Provider Physician Assistant Medical
DX: R06.02 Shortness of breath (principal); R06.00 Dyspnea, unspecified
CPT/HCPCS: 36415; 83880; 84484; 85379

== ENCOUNTER 2022-02-18 14:07 | Emergency (ER) | payer MEDICARE, SELFPAY ==
[2022-02-18] VITALS (7 sets, daily range): BP systolic 148–186; BP diastolic 69–82; PULSE 51–65; RESP 16–22; TEMP 36.8; O2SAT 93–97; BMI 34.1
--- NOTE | 2022-02-18 14:48 | DI.CT.S_ITS ---
PROCEDURE: CT ANGIO CHEST PE PROTOCOL INDICATIONS: SOB, critical dimer, history of PE TECHNIQUE: After the administration of intravenous contrast, 2 mm thick sections acquired from the pulmonary apices to the posterior costophrenic angles. 3-dimensional maximum intensity projection (MIP) coronal and sagittal reformats were then acquired through the thorax. For radiation dose reduction, the following was used: automated exposure control, adjustment of mA and/or kV according to patient size. COMPARISON: [facility], CT, CT CHEST WO CON, 06/20/2021, 15:12. FINDINGS: Image quality: Excellent. Pulmonary arteries: Pulmonary arteries are normal in size, and demonstrate no intraluminal filling defects to suggest central pulmonary embolism. Lungs and pleura: Patchy subtle ground-glass opacities may be secondary to submaximal inspiration. Subtle changes of inflammation or infection are not excluded. No pleural effusions or pneumothorax. Central and peripheral airways are patent. Mediastinum: Heart size is normal, without pericardial effusion. No mediastinal or hilar adenopathy. Thoracic aorta is normal in caliber and enhancement. Esophagus is normal in caliber, without hiatal hernia. Bones and chest wall: No suspicious bony lesions. Ribs and thoracic spine appear intact throughout. Left shoulder arthroplasty. 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 Thyroid gland is grossly unremarkable. No axillary or supraclavicular adenopathy. Abdomen: Left kidney is somewhat small and shrunken. Visualized upper abdominal abdominal contents are otherwise unremarkable. IMPRESSION: 1. No evidence acute pulmonary emboli. 2. Very subtle patchy ground-glass opacities may potentially be secondary to submaximal inspiration. Alternatively, subtle changes from inflammation or infection cannot be excluded. 3. Somewhat small and shrunken left kidney. Dictated by: Larry Red M.D. on 02/18/2022 at 17:26 Approved by: Larry Red M.D. on 02/18/2022 at 17:31
[2022-02-18 15:25] LABS: Add Manual Diff / Slide Review NO; Basophils Absolute Auto 0 /uL (0-100); Basophils Percent Auto 0.2 % (0-2); Eosinophils Absolute Auto 0 /uL (0-450); Hematocrit 37.6 % (36-46); Hemoglobin 12.6 g/dL (12.0-16.0); Lymphocytes Absolute Auto 900 /uL (1100-4500); Lymphocytes Percent Auto 15.4 % (25-40); Mean Corpuscular HGB Conc 33.7 % (30-36); Mean Corpuscular Hemoglobin 31.5 PG (26-34); Mean Corpuscular Volume 93.8 fL (80-100); Monocytes Absolute Auto 300 /uL (0-900); Monocytes Percent Auto 5.8 % (3-14); Neutrophils Absolute Auto 4400 /uL (1500-7000); Neutrophils Percent Auto 78.6 % (50-75); Platelet Count 193 X10^3/uL (150-400); Red Blood Cell Count 4.01 X10^6/uL (4.0-5.2); Red Cell Distribution Width 14.6 % (11.6-14.8); White Blood Cell Count 5.6 X10^3/uL (4.5-11.0)
[2022-02-18 15:39] LABS: Alanine Aminotransferase 27 IU/L (<35); Albumin 4.1 g/dL (3.5-5.0); Albumin Globulin Ratio 1.4 (1.0-2.8); Alkaline Phosphatase 61 U/L (38-126); Aspartate Aminotransferase 27 IU/L (14-36); BUN Creatinine Ratio 28.6 (6-22); Bilirubin Total 0.5 mg/dL (0.2-1.3); Blood Urea Nitrogen 18 mg/dL (7-17); Calcium 9.1 mg/dL (8.4-10.2); Carbon Dioxide 23 mmol/L (22-32); Chloride 104 mmol/L (98-107); Estimated Glomerular Filt Rate > 60 mL/min (>60); Globulin 2.9 g/dL (1.7-4.1); Glucose 140 mg/dL (80-110); HEMOLYSIS 16 (0-50); Potassium 4.5 mmol/L (3.4-5.1); Sodium 135 mmol/L (137-145)
[2022-02-18 17:58] LABS: Influenza A - CEPHEID Flu A NEGATIVE (NEGATIVE); Influenza B - CEPHEID Flu B NEGATIVE (NEGATIVE); Respiratory Syncytial Virus Negative (Negative)
[2022-02-18 18:02] LABS: COVID-19 CEPHEID 4-PLEX PCR Negative (Negative)
--- NOTE | 2022-02-18 18:15 | ED.SOB ---
HPI - SOB/Dyspnea General Chief Complaint: Shortness of Breath/Dyspnea Stated Complaint: DR perez they think she has pulmonary embolism Time Seen by Provider: 02/18/22 14:16 Source: patient Mode of arrival: Wheelchair Limitations: no limitations History of Present Illness HPI Narrative: Patient is a 71-year-old female who has a history of rheumatoid arthritis multiple PEs likely secondary to traveling presents today with worsening shortness of breath for the last 3 days. She has not had any fever or chills. She feels like she is had an upper respiratory infection. She actually went to go see her forestry support specialist for her asthma yesterday. She was told that her pulmonary function tests were all low. She was started on prednisone taper yesterday she just took 40 mg of prednisone. She had some outpatient blood work and her D-dimer was elevated she was sent here for rule out PE. She denies any chest pain. She has no orthopnea. But she does have significant shortness of breath with minimal exertion. She does sit at her easily quite a bit and pain. All of her previous PEs were related to travel. So she only takes Lovenox with traveling. Related Data Home Medications Medication Instructions Recorded Confirmed calcium carbonate 600 mg-vitamin 1 cap PO QPM ##0 02/04/17 12/04/21 D3 10 mcg (400 unit) capsule (Calcium 600 with Vitamin D3) metoprolol succinate 25 mg 100 mg PO QDAY ##0 02/04/17 12/04/21 tablet,extended release 24 hr (Toprol XL) Adult One Daily Multivitamin 1 tab DAILY 10/16/18 12/04/21 atorvastatin 10 mg tablet 40 mg PO QPM 10/16/18 12/04/21 azelastine 205.5 mcg (0.15 %) 1 spray intranasal BID PRN nasal 10/16/18 12/04/21 nasal spray dryness cetirizine 10 mg capsule (Zyrtec) 10 mg PRN PRN Angioedema 10/16/18 12/04/21 fexofenadine 180 mg tablet 180 mg PO DAILY PRN Angioedema 10/16/18 12/04/21 (Annabella Allergy) losartan 25 mg tablet 25 mg PO DAILY 10/16/18 12/04/21 methocarbamol 500 mg tablet 500 mg PO QID PRN back spasms 10/16/18 12/04/21 oxycodone-acetaminophen 5 mg-325 1 tab PO Q4-6H PRN Back Pain 10/16/18 12/04/21 mg tablet (Percocet) pregabalin 100 mg capsule 100 mg PO QAM 10/16/18 12/04/21 zolpidem 10 mg tablet 10 mg PO PRN PRN Insomnia 10/16/18 12/04/21 budesonide 3 mg 3 mg PO Q OTHER DAY 11/18/20 12/04/21 capsule,delayed,extended release escitalopram oxalate 20 mg tablet 20 mg PO DAILY 11/18/20 12/04/21 (Lexapro) folic acid 1 mg tablet 1 mg DAILY 11/18/20 12/04/21 methotrexate (PF) 25 mg/mL 25 mg SUBCUT QWEEK 11/11/21 12/04/21 subcutaneous syringe simponi SUBCUT 11/11/21 12/04/21 prednisone 5 mg tablet 1 mg PO QDAY #0 tabs 12/04/21 12/04/21 Previous Rx's Medication Instructions Recorded azithromycin 250 mg tablet 250 mg PO DAILY 5 days #6 tabs 02/18/22 cefpodoxime 200 mg tablet 200 mg PO BID #10 tabs 02/18/22 Allergies Allergy/AdvReac Type Severity Reaction Status Date / Time clindamycin [CLINDAMYCIN] Allergy Intermediate ITCHING Verified 11/11/21 16:13 moxifloxacin [From AVELOX] Allergy Intermediate ITCHING Verified 11/11/21 16:13 Penicillins [PENICILLINS] Allergy Unknown HIVES AND Verified 11/11/21 16:13 ITCHING (HAPPENED WHEN SHE WAS 7 YRS OLD) Review of Systems Review of Systems Narrative: GENERAL: Denies chills, fatigue, malaise, fever, sweats, travel HEENT: Denies sinus pain, ear pain, sore throat, difficulty swallowing, neck pain RESPIRATORY: See HPI CARDIOVASCULAR: Denies chest pain, palpitations, orthopnea, edema GASTROINTESTINAL: Denies nausea, vomiting, abdominal pain, diarrhea, constipation, melena. : Denies dysuria, frequency, incontinence, hematuria, urinary retention, flank pain. MUSCULOSKELETAL: Denies weakness, joint pain, or bony pain SKIN: No rash, no erythema, no pruritus NEUROLOGIC: Denies weakness, dizziness, headache, numbness, change in speech, confusion PSYCHIATRIC: No concerning psychosocial issues. 12 point review of systems is negative except for those stated above and HPI Patient History Medical History Asthmatic bronchitis Chronic bilateral low back pain with bilateral sciatica Depression GERD (gastroesophageal reflux disease) Surgical History H/O eye surgery (02/05/1958) H/O total hysterectomy (05/06/00) History of cholecystectomy (02/05/98) History of knee surgery (05/05/10) 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) Hx of spinal fusion (10/09/18) Hx of tonsillectomy (07/27/1967) Social History Smoking Status: Never smoker alcohol intake: never substance use type: does not use Smoking Status: Never smoker alcohol intake frequency: 0-2 drinks per day Substance Use Type: does not use Exam Initial Vital Signs Initial Vital Signs: Vital Signs Temperature 98.3 F 02/18/22 14:34 Pulse Rate 60 02/18/22 14:34 Respiratory Rate 22 02/18/22 14:34 Blood Pressure 148/69 H 02/18/22 14:34 Pulse Oximetry 95 02/18/22 14:34 Oxygen Delivery Method 02/18/22 14:34 GENERAL: Alert pleasant 71-year-old female in mild respiratory distress HEENT: Head atraumatic,EOMI, pupils reactive, face symmetric, [moist] mucous membranes CARDIOVASCULAR: Regular rate and rhythm without murmurs, rubs or gallops. RESPIRATORY: Decreased breath sounds bilaterally ABDOMEN: Soft, nontender. Normoactive bowel sounds all 4 quadrants. No guarding or rebound. : No CVA tenderness EXTREMITIES: Normal range of motion, no clubbing or edema. Neurovascularly intact NEUROLOGICAL: Alert and oriented x4.Normal gait and speech. Cranial nerves II through XII grossly intact. SKIN: Warm, dry, no laceration, no petechiae, no rashes or lesions. Course Orders Ordered: Discontinued Medications Albuterol (Albuterol 2.5 Mg/3 Ml Neb (Adult)) 5 mg INH NOW ONE Stop: 02/18/22 19:26 Last Admin: 02/18/22 19:33 Dose: 5 mg Documented By: MR Albuterol/Ipratropium (Albuterol/Ipratropium 3 Ml Ampul) 3 ml INH NOW ONE Stop: 02/18/22 18:12 Last Admin: 02/18/22 18:25 Dose: 3 ml Documented By: MARINA Cefdinir (Cefdinir 300 Mg Capsule) 300 mg PO NOW ONE Stop: 02/18/22 19:47 Last Admin: 02/18/22 20:09 Dose: 300 mg Documented By: MINDY Methylprednisolone (Methylprednisolone 125 Mg/2 Ml Vial) 125 mg IV NOW ONE Stop: 02/18/22 18:12 Last Admin: 02/18/22 18:25 Dose: 125 mg Documented By: MARINA Vital Signs Vital signs: Vital Signs - 8 hr 02/18/22 14:34 02/18/22 18:05 02/18/22 18:06 Temperature 98.3 F Pulse Rate 60 65 Respiratory Rate 22 Blood Pressure 148/69 H 186/82 H Pulse Oximetry 95 93 Oxygen Delivery Method Room Air 02/18/22 18:06 02/18/22 18:48 Temperature Pulse Rate 60 51 L Respiratory Rate 16 Blood Pressure Pulse Oximetry 93 96 Oxygen Delivery Method Room Air MDM - SOB/Dyspnea Lab Data Result diagrams: 02/18/22 15:15 02/18/22 15:15 Labs: Lab Results 02/18/22 02/18/22 02/18/22 Range/Units 14:45 15:15 15:15 WBC 5.6 (4.5-11.0) X10^3/uL RBC 4.01 (4.0-5.2) X10^6/uL Hgb 12.6 (12.0-16.0) g/dL Hct 37.6 (36-46) % MCV 93.8 (80-100) fL MCH 31.5 (26-34) PG MCHC 33.7 (30-36) % RDW 14.6 (11.6-14.8) % Plt Count 193 (150-400) X10^3/uL Neut % (Auto) 78.6 H (50-75) % Lymph % (Auto) 15.4 L (25-40) % [place] % (Auto) 5.8 (3-14) % Eos % (Auto) 0.0 L (2-4) % Baso % (Auto) 0.2 (0-2) % Neut # (Auto) 4400 (9389-5136) /uL Lymph # (Auto) 900 L (3150-9442) /uL [place] # (Auto) 300 (0-900) /uL Eos # (Auto) 0 (0-450) /uL Baso # (Auto) 0 (0-100) /uL Sodium 135 L (137-145) mmol/L Potassium 4.5 (3.4-5.1) mmol/L Chloride 104 (98-107) mmol/L Carbon Dioxide 23 (22-32) mmol/L BUN 18 H (7-17) mg/dL Creatinine 0.63 (0.52-1.04) mg/dL Estimated GFR > 60 (>60) mL/min BUN/Creatinine Ratio 28.6 H (6-22) Glucose 140 H (80-110) mg/dL Calcium 9.1 (8.4-10.2) mg/dL Total Bilirubin 0.5 (0.2-1.3) mg/dL AST 27 (14-36) IU/L ALT 27 (<35) IU/L Alkaline Phosphatase 61 (38-126) U/L Total Creatine Kinase (30-135) U/L CK-MB (CK-2) CK-MB (CK-2) Rel Index Troponin I (0.01-0.034) ng/mL NT-Pro-B Natriuret Pep (<125) pg/mL Total Protein 7.0 (6.3-8.2) g/dL Albumin 4.1 (3.5-5.0) g/dL Globulin 2.9 (1.7-4.1) g/dL Albumin/Globulin Ratio 1.4 (1.0-2.8) SARS-CoV-2 (PCR) Negative (Negative) Influenza A (RT-PCR) Flu a negative (NEGATIVE) Influenza B (RT-PCR) Flu b negative (NEGATIVE) RSV (PCR) Negative (Negative) 02/18/22 Range/Units 18:16 WBC (4.5-11.0) X10^3/uL RBC (4.0-5.2) X10^6/uL Hgb (12.0-16.0) g/dL Hct (36-46) % MCV (80-100) fL MCH (26-34) PG MCHC (30-36) % RDW (11.6-14.8) % Plt Count (150-400) X10^3/uL Neut % (Auto) (50-75) % Lymph % (Auto) (25-40) % [place] % (Auto) (3-14) % Eos % (Auto) (2-4) % Baso % (Auto) (0-2) % Neut # (Auto) (9627-5022) /uL Lymph # (Auto) (2124-4614) /uL [place] # (Auto) (0-900) /uL Eos # (Auto) (0-450) /uL Baso # (Auto) (0-100) /uL Sodium (137-145) mmol/L Potassium (3.4-5.1) mmol/L Chloride (98-107) mmol/L Carbon Dioxide (22-32) mmol/L BUN (7-17) mg/dL Creatinine (0.52-1.04) mg/dL Estimated GFR (>60) mL/min BUN/Creatinine Ratio (6-22) Glucose (80-110) mg/dL Calcium (8.4-10.2) mg/dL Total Bilirubin (0.2-1.3) mg/dL AST (14-36) IU/L ALT (<35) IU/L Alkaline Phosphatase (38-126) U/L Total Creatine Kinase 49 (30-135) U/L CK-MB (CK-2) TNP CK-MB (CK-2) Rel Index TNP Troponin I < 0.012 (0.01-0.034) ng/mL NT-Pro-B Natriuret Pep 388 H (<125) pg/mL Total Protein (6.3-8.2) g/dL Albumin (3.5-5.0) g/dL Globulin (1.7-4.1) g/dL Albumin/Globulin Ratio (1.0-2.8) SARS-CoV-2 (PCR) (Negative) Influenza A (RT-PCR) (NEGATIVE) Influenza B (RT-PCR) (NEGATIVE) RSV (PCR) (Negative) Imaging Data CT scan - chest: Radiologist's Impression: [address] [address] [address] Scan Report Signed Patient: Patsy Hernandez MR#: [id number] : 1950 Acct:[id number] Age/Sex: 71 / F Date of Service: 02/18/22 Loc: ED Accession Number: [id number] ?? Procedure: CT angio chest PE protocol Ordering Provider: Eugene Rivera D.O. PROCEDURE:? CT ANGIO CHEST PE PROTOCOL ? INDICATIONS:? SOB, critical dimer, history of PE ? TECHNIQUE:? After the administration of intravenous contrast, 2 mm thick sections acquired from the pulmonary apices to the posterior costophrenic angles.? 3-dimensional maximum intensity projection (MIP) coronal and sagittal reformats were then acquired through the thorax.? For radiation dose reduction, the following was used:? automated exposure control, adjustment of mA and/or kV according to patient size.? ? COMPARISON:? [facility], CT, CT CHEST WO CON, 06/20/2021, 15:12. ? FINDINGS:? Image quality:? Excellent.? ? Pulmonary arteries:? Pulmonary arteries are normal in size, and demonstrate no intraluminal filling defects to suggest central pulmonary embolism.? ? Lungs and pleura:? Patchy subtle ground-glass opacities may be secondary to submaximal inspiration.? Subtle changes of inflammation or infection are not excluded.? No pleural effusions or pneumothorax.? Central and peripheral airways are patent.? ? Mediastinum:? Heart size is normal, without pericardial effusion.? No mediastinal or hilar adenopathy.? Thoracic aorta is normal in caliber and enhancement.? Esophagus is normal in caliber, without hiatal hernia.? ? Bones and chest wall:? No suspicious bony lesions.? Ribs and thoracic spine appear intact throughout.? Left shoulder arthroplasty.? Severe arthritic change of the right glenohumeral joint.? Thyroid gland is grossly unremarkable.? No axillary or supraclavicular adenopathy.? ? Abdomen:? Left kidney is somewhat small and shrunken.? Visualized upper abdominal abdominal contents are otherwise unremarkable. ? IMPRESSION:? ? 1. No evidence acute pulmonary emboli. ? 2. Very subtle patchy ground-glass opacities may potentially be secondary to submaximal inspiration.? Alternatively, subtle changes from inflammation or infection cannot be excluded. ? 3. Somewhat small and shrunken left kidney.? ? ? Dictated by: Larry Red M.D. on 02/18/2022 at 17:2 ECG Data Interpretation: Normal sinus rhythm rate 56 MS interval 170 QRS [address] changes no T-wave inversions MDM Narrative Medical decision making narrative: Patient has a history of asthma and multiple PEs. CT is negative for PE but does show some ground-glass opacities. She does have some shortness of breath with exertion worse over last 3 days at point seems to be more asthma exertion. She is not septic but due to ground glass opacities will start her on antibiotic doxycycline. She already has a tapering dose of steroids. She is 2- troponins today BNP minimally elevated around 203 100. But no significant signs of congestive heart failure. At this time I do not think she would benefit from Lasix. Differential diagnosis includes acute coronary syndrome, pulmonary embolism, congestive heart failure, asthma exacerbation, pneumonia, pneumothorax, At this time most likely pneumonia due to ground glass opacities with asthma exacerbation Discharge Plan Departure Patient Disposition: Home Clinical Impression: Pneumonia, Asthma exacerbation Instructions: Atypical Pneumonia, DI for Asthma -- Adult Activity Restrictions/Additional Instructions: *You have been diagnosed with pneumonia with asthma exacerbation *What to do: At this time no evidence of pulmonary embolism. You do have touch pneumonia on your CT scan. We will start you on 5 days of antibiotics. Please continue your tapering steroid dose from her forestry support specialist *Continue to take medications as directed Cefpodoxime 200 mg twice a day for 5 days Azithromycin take as directed *Follow up with your primary care provider in 2-3 days or call [phone] *Return to ER if you should have increasing shortness of breath fever chest pain or any new, worsening or concerning symptoms Prescriptions: New cefpodoxime 200 mg tablet 200 mg PO BID Qty: 10 0RF Rx Instructions: must administer with a meal/food azithromycin 250 mg tablet 250 mg PO DAILY 5 Days Qty: 6 0RF No Action metoprolol succinate [Toprol XL] 25 MG tablet extended release 24 hr 100 mg PO QDAY Qty: 0 calcium carbonate-vitamin D3 [Calcium 600 with Vitamin D3] 600 mg(1,500mg) -400 unit capsule 1 cap PO QPM Qty: 0 prednisone 5 mg tablet 1 mg PO QDAY Qty: 0 Adult One Daily Multivitamin 1 tab DAILY methocarbamol 500 mg Tablet 500 mg PO QID PRN (Reason: back spasms) atorvastatin 10 mg Tablet 40 mg PO QPM losartan 25 mg Tablet 25 mg PO DAILY pregabalin 100 mg Capsule 100 mg PO QAM fexofenadine [Annabella Allergy] 180 mg Tablet 180 mg PO DAILY PRN (Reason: Angioedema) oxycodone-acetaminophen [Percocet] 5-325 mg Tablet 1 tab PO Q4-6H PRN (Reason: Back Pain) zolpidem 10 mg Tablet 10 mg PO PRN PRN (Reason: Insomnia) azelastine 0.15 % (205.5 mcg) Zirconia,Non-Aerosol 1 spray INTRANASAL BID PRN (Reason: nasal dryness) Zyrtec 10 mg Capsule 10 mg PRN PRN (Reason: Angioedema) folic acid 1 mg Tablet 1 mg DAILY budesonide 3 mg Capsule,Delayed,Extend.Release 3 mg PO Q OTHER DAY escitalopram oxalate [Lexapro] 20 mg Tablet 20 mg PO DAILY methotrexate (PF) 25 mg/mL syringe 25 mg SUBCUT QWEEK simponi SUBCUT Referrals: Ellie Fountain PA-C [Primary Care Provider] - Visit Report Forms: Patient Portal/API
[2022-02-18] MEDS: methylPREDNISolone 125 MG/2 ML VIAL IV (18:25)
[2022-02-18] MEDS: ALBUTEROL/IPRATROPIUM 3 ML AMPUL INH (18:25)
[2022-02-18 18:36] LABS: Creatine Kinase 49 U/L (30-135)
[2022-02-18 18:49] LABS: NT-proBNP (BNP-Adult 18+) 388 pg/mL (<125); Troponin I < 0.012 ng/mL (0.01-0.034)
[2022-02-18] MEDS: ALBUTEROL 2.5 MG/3 ML NEB (ADULT) 5 MG INH (19:33)
[2022-02-18] MEDS: CEFDINIR 300 MG CAPSULE PO (20:09)
== END 2022-02-18 20:15 | disposition home or self-care (01) ==
PROVIDERS: Emergency Medicine; Emergency Provider Emergency Medicine; Family Provider Physician Assistant; PCP Physician Assistant
DX: J18.9 Pneumonia, unspecified organism (principal); J45.901 Unspecified asthma with (acute) exacerbation; Z79.899 Other long term (current) drug therapy; Z20.822 Contact with and (suspected) exposure to COVID-19; R06.02 Shortness of breath; R06.00 Dyspnea, unspecified
CPT/HCPCS: 0241U; 36415; 71275; 80053; 82550; 83880; 84484; 85025; 85379; 93005; 93010; 94640; 96374; 99283; 99284; J2930; J7613; Q9967

== ENCOUNTER 2022-03-10 09:45 | Outpatient (RCR) | payer MEDICARE, SELFPAY ==
--- NOTE | 2022-01-20 19:00 | PT.OIE ---
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) Hx of spinal fusion (10/09/18) Hx of tonsillectomy (07/27/1967) Visit Care Team Role Provider Type Ellie Fountain PA-C Attending Provider Physician Audio Visual Manager Family Provider Primary Care Provider Referring Provider Specialty: Medical Address: [address] [place] [address], [facility] Email: [email or web address] Physical Therapy Initial Evaluation PT-OP-A Visit Information Start: 01/20/22 07:26 Freq: Status: Active Protocol: Document 01/20/22 15:35 [facility] (Rec: 01/20/22 19:00 [facility] [id number]) Out-Patient Physical Therapy Visit Information Visit Information Visit Type Initial Evaluation Visit Note 03/17 Visit Start Time 16:50 Visit Stop Time 17:45 Total Visit Minutes 55 Visit Number 1 Number of CLERK OF WORKS Visits 0 PT-OP-B Current Condition Start: 01/20/22 07:26 Freq: Status: Active Protocol: Document 01/20/22 15:35 [facility] (Rec: 01/20/22 19:00 [facility] [id number]) Current Condition History of Current Condition Onset Date 8 months to a year Current Complaints R shoulder weakness History of Current Condition Pt has history of R RCR in 2013 and had a recent loss of ROM on RUE. She saw ortho who doesn't plan to do MRI because he doens't plan to do surgery . She sometimes has to hold arm up to be able to reach spices. She can lift things that are lower. Typically she can lift her up every day. She did tear biceps on R side. SHe has been doing some AAROM exercises from [place]. She has no R shoulder pain, but does have weakness. It is acting like her L shoulder did before TSA. She has no issues w/pool exercises. Trying to dry her hair is difficult because she uses a roll brush and has difficulty getting to the back of her head. Pt denies neck pain. She has history of chronoic back and B foot pain with multiple surgeries. She has had a lot of injections and is awaiting a rhizotomy. Pt reports a fall in dec when she missed when sitting onto a low toilet. She did have some other falls onto her R shoulder in July and unsure if a fall that started this. Cannot lift med to lg size groceries off the shelf. Pt reports med elbows have been painful B. When she looks at her phone she goes numb and tingling in palmar aspect of phone and has to switch hand. She thinks it is her entire hand. Pt also has ongoing L sided chest pain in ribs that has been for 1 year with cardio testing not notable for any cardiac event. Treatment Goals Patient/Caregiver Goals Be able to do hair w/ease; be able to lift UE up overhead. PT-OP-C Subjective Start: 01/20/22 07:26 Freq: Status: Active Protocol: Document 01/20/22 15:35 [facility] (Rec: 01/20/22 19:00 [facility] [id number]) Patient Questionnaires Quick Dash- Upper Extremity Quick Dash UE Score 25 PT-OP-J Posture/Palpation/Skin Start: 01/20/22 07:26 Freq: Status: Active Protocol: Document 01/20/22 15:35 [facility] (Rec: 01/20/22 19:00 [facility] [id number]) Posture Evaluation Comments Posture Comments fwd head and inc kyphosis. R shoulder >L fwd rotated PT-OP-K Range of Motion Start: 01/20/22 07:26 Freq: Status: Active Protocol: Document 01/20/22 15:35 [facility] (Rec: 01/20/22 19:00 [facility] [id number]) Shoulder Goniometric Range of Motion Shoulder Right Passive Flexion 165 Abduction 145 External Rotation at 90 degrees 84 Abduction External Rotation at 45 degrees 70 Abduction Internal Rotation 70 Comments pain end range 45 deg ER & abd & flex; IR at 90 Right Active Flexion 150 Extension 50 Abduction 85 External Rotation at 0 degrees Abduction 0 Internal Rotation Behind Back (text) T9 Comments pain w/IR & ext Left Active Flexion 123 Extension 42 Abduction 105 External Rotation at 0 degrees Abduction 1 Internal Rotation Behind Back (text) T6 PT-OP-L Special Tests Start: 01/20/22 07:26 Freq: Status: Active Protocol: Document 01/20/22 15:35 [facility] (Rec: 01/20/22 19:00 [facility] [id number]) Special Tests Cervical Spine Special Tests Vertebral Artery Test Results neg Spurling's Test Test Results neg Shoulder Special Tests Davis Test Test Results neg R for dec pulse but inc RUE tingling Adson Maneuver Test Results neg for dec pulse but inc tingling R Empty Can Comments positive for weakness; no pain Cerrato Juan Impingement Test Results neg Neer Impingement Test Results neg Neural Special Tests- Upper Body Median Nerve Tension Test Results positive for tightness Radial Nerve Tension Test Results neg Ulnar Nerve Tension Test Results neg PT-OP-M Strength Start: 01/20/22 07:26 Freq: Status: Active Protocol: Document 01/20/22 15:35 [facility] (Rec: 01/20/22 19:00 [facility] [id number]) Shoulder Strength Shoulder Manual Muscle Testing Right Flexion 3+ Fair+ Extension 4 Good Abduction (C5) 3+ Fair+ External Rotation 2- Poor- Internal Rotation 4- Good- Comments pain in elbow med w/IR Left Flexion 4 Good Extension 4+ Good+ Abduction (C5) 4 Good External Rotation 2- Poor- Internal Rotation 4 Good Elbow/Forearm Strength Elbow and Forearm Manual Muscle Testing Right Flexion (C6) 4 Good Extension (C7) 4 Good Pronation 4 Good Supination 5 Normal Comments pain w/pronation; brachialis 4 +/5 Left Flexion (C6) 5 Normal Extension (C7) 5 Normal Pronation 4- Good- Supination 5 Normal Comments brachialis 5/5 Wrist Strength Wrist Manual Muscle Testing Right Flexion (C7) 4- Good- Extension (C6) 4+ Good+ Ulnar Deviation 4+ Good+ Radial Deviation 4- Good- Comments pain in med elbow Left Flexion (C7) 4 Good Extension (C6) 5 Normal Ulnar Deviation 5 Normal Radial Deviation 5 Normal Hand Tool Maker/Pinch Strength Hand Dominance Hand Dominance Right Hand Strength Right Comments 35, 41,34 Left Comments 30,29, 25 PT-OP-Q Treatments Start: 01/20/22 07:26 Freq: Status: Active Protocol: Document 01/20/22 15:35 [facility] (Rec: 01/20/22 19:00 [facility] [id number]) Self-Care/Home Management Treatment Education Other Education Discussion w/pt re: needing more cervical stability and there possibly being a neural component based on tingling in hands and pain in elbow and inconsistant symptoms of weakness of UEx8 min PT-OP-T Assessment and Plan Start: 01/20/22 07:26 Freq: Status: Active Protocol: Document 01/20/22 15:35 [facility] (Rec: 01/20/22 19:00 [facility] [id number]) Physical Therapy Assessment Goals tingling Hydrocrane Operator Goal (LTG) Pt will report at lest 70% dec in tingling in RUE . LTG Duration 04/14/22 strength Short Term Goal (STG) Pt will be indep w/HEP STG Duration 03/07/22 Care Home Goal (LTG) Pt will score at least 4/5 RUE strength to allow pt enough strength for overhead activities. LTG Duration 04/14/22 activity Short Term Goal (STG) Pt will be able to blow dry hair without issue STG Duration 03/15/22 Hydrocrane Operator Goal (LTG) Pt will have no issues w/ reaching into cabinets & grabbing different objects LTG Duration 04/14/22 One Impairment unable to reach overhead Short Term Goal (STG) Pt will improve AROM of flex and abd by 10 deg STG Duration 03/08/22 Hydrocrane Operator Goal (LTG) Pt will have full AROM of R shoulder (equal to her PROM) to allow her to do more overhead activtiies w/o issues . LTG Duration 04/14/22 Assessment Summary Assessment Pt was sent w/possible R RC tear, but based on testing, she shows some weakness to RC but overall R sided weakness and notable med elbow pain w/ inc tension in median n and tingling that occurs w/TOS testing. It is possible that there is a neural involvement based on this testing and the fact that pt's weakness and inability to lift her arm is inconsistant. She would benfit from skilled PT to address her ROM, strength and stability deficits and imrpove pt's functional ability. Physical Therapy Plan Frequency and Duration Frequency of Treatment 1-2x/wk Duration of treatment (weeks) 12 Plan of Care Start Date 01/20/22 Plan of Care End Date 04/14/22 Therapeutic Interventions Therapeutic Interventions Aquatic Therapy,Home Exercise Program,Joint Mobilizations, Manual Therapy,Neuromuscular Re-education,Orthotic/ Prosthetic Management,Patient/ Caregiver Education,Self-Care/ Home Management,Soft Tissue Mobilization,Taping, Therapeutic Activities, Therapeutic Exercises Modalities Cold Pack/Ice Massage,Electric Stimulation,Hot Packs, Infrared Therapy,Traction- Mechanical,Ultrasound Next Visit Focus/Plan Next Note Type Treatment Note Next Visit Plan impact test, cervical stability exercises, ER AAROM B, ER isometric, flex AAROM, manual to [place] & median n tracing
--- NOTE | 2022-01-20 19:00 | PT.OPPOC ---
Physical, Occupational & Speech Therapy At [facility] Current Diagnoses Abnormal posture (01/20/22) Weakness (01/20/22) Strain of muscle(s) and tendon(s) of the rotator cuff of right shoulder, initial encounter (01/20/22) Visit Care Team Role Provider Type Ellie Fountain PA-C Attending Provider Physician Coke Handling Supervisor Family Provider Primary Care Provider Referring Provider Specialty: Medical Address: [address] [place] [address], [id number] Email: [email or web address] Plan Of Care PT-OP-T Assessment and Plan Start: 01/20/22 07:26 Freq: Status: Active Protocol: Document 01/20/22 15:35 [facility] (Rec: 01/20/22 19:00 [facility] [id number]) Physical Therapy Assessment Goals tingling Silk Screen Printing Racker Goal (LTG) Pt will report at lest 70% dec in tingling in RUE . LTG Duration 04/14/22 strength Short Term Goal (STG) Pt will be indep w/HEP STG Duration 03/07/22 Silk Screen Printing Racker Goal (LTG) Pt will score at least 4/5 RUE strength to allow pt enough strength for overhead activities. LTG Duration 04/14/22 activity Short Term Goal (STG) Pt will be able to blow dry hair without issue STG Duration 03/15/22 Retirement Goal (LTG) Pt will have no issues w/ reaching into cabinets & grabbing different objects LTG Duration 04/14/22 One Impairment unable to reach overhead Short Term Goal (STG) Pt will improve AROM of flex and abd by 10 deg STG Duration 03/08/22 Silk Screen Printing Racker Goal (LTG) Pt will have full AROM of R shoulder (equal to her PROM) to allow her to do more overhead activtiies w/o issues . LTG Duration 04/14/22 Assessment Summary Assessment Pt was sent w/possible R RC tear, but based on testing, she shows some weakness to RC but overall R sided weakness and notable med elbow pain w/ inc tension in median n and tingling that occurs w/TOS testing. It is possible that there is a neural involvement based on this testing and the fact that pt's weakness and inability to lift her arm is inconsistant. She would benfit from skilled PT to address her ROM, strength and stability deficits and imrpove pt's functional ability. Physical Therapy Plan Frequency and Duration Frequency of Treatment 1-2x/wk Duration of treatment (weeks) 12 Plan of Care Start Date 01/20/22 Plan of Care End Date 04/14/22 Therapeutic Interventions Therapeutic Interventions Aquatic Therapy,Home Exercise Program,Joint Mobilizations, Manual Therapy,Neuromuscular Re-education,Orthotic/ Prosthetic Management,Patient/ Caregiver Education,Self-Care/ Home Management,Soft Tissue Mobilization,Taping, Therapeutic Activities, Therapeutic Exercises Modalities Cold Pack/Ice Massage,Electric Stimulation,Hot Packs, Infrared Therapy,Traction- Mechanical,Ultrasound Next Visit Focus/Plan Next Note Type Treatment Note Next Visit Plan impact test, cervical stability exercises, ER AAROM B, ER isometric, flex AAROM, manual to pec, scalenes & median n tracing Plan of Care Dates Plan of Care Start Date 01/20/22 Plan of Care End Date 04/14/22 Electronically Signed by: Debbie Beyer, PT 01/20/22 5552 If you are in agreement with this Plan of Care, please return a signed and dated copy. I have reviewed this Plan of Care and certify that the skilled therapy services above are required to meet the patient?s needs. Physician Signature Date Printed Name and Credentials Clinical Instructor Signature Printed Name and Credentials
--- NOTE | 2022-01-22 10:36 | PT.OTN ---
Current Diagnoses Abnormal posture (01/22/22) Weakness (01/22/22) Strain of muscle(s) and tendon(s) of the rotator cuff of right shoulder, initial encounter (01/22/22) Physical Therapy Treatment Note PT-OP-A Visit Information Start: 01/20/22 07:26 Freq: Status: Active Protocol: Document 01/22/22 08:24 [facility] (Rec: 01/22/22 10:36 [facility] [id number]) Out-Patient Physical Therapy Visit Information Visit Information Visit Type Treatment Note Visit Note 04/17 Visit Start Time 09:05 Visit Stop Time 09:45 Total Visit Minutes 40 Visit Number 2 Number of CONTACT CENTER TEAM LEAD Visits 0 PT-OP-B Current Condition Start: 01/20/22 07:26 Freq: Status: Active Protocol: Document 01/20/22 15:35 [facility] (Rec: 01/20/22 19:00 [facility] [id number]) Current Condition History of Current Condition Onset Date 8 months to a year Current Complaints R shoulder weakness History of Current Condition Pt has history of R RCR in 2013 and had a recent loss of ROM on RUE. She saw ortho who doesn't plan to do MRI because he doens't plan to do surgery . She sometimes has to hold arm up to be able to reach spices. She can lift things that are lower. Typically she can lift her up every day. She did tear biceps on R side. SHe has been doing some AAROM exercises from [place]. She has no R shoulder pain, but does have weakness. It is acting like her L shoulder did before TSA. She has no issues w/pool exercises. Trying to dry her hair is difficult because she uses a roll brush and has difficulty getting to the back of her head. Pt denies neck pain. She has history of chronoic back and B foot pain with multiple surgeries. She has had a lot of injections and is awaiting a rhizotomy. Pt reports a fall in dec when she missed when sitting onto a low toilet. She did have some other falls onto her R shoulder in July and unsure if a fall that started this. Cannot lift med to lg size groceries off the shelf. Pt reports med elbows have been painful B. When she looks at her phone she goes numb and tingling in palmar aspect of phone and has to switch hand. She thinks it is her entire hand. Pt also has ongoing L sided chest pain in ribs that has been for 1 year with cardio testing not notable for any cardiac event. Treatment Goals Patient/Caregiver Goals Be able to do hair w/ease; be able to lift UE up overhead. PT-OP-C Subjective Start: 01/20/22 07:26 Freq: Status: Active Protocol: Document 01/22/22 08:24 [facility] (Rec: 01/22/22 10:36 [facility] [id number]) OP-PT Subjective Patient Comments Patient Comments Pt reports her pain MD called to say he will not do rhizodomy PT-OP-J Posture/Palpation/Skin Start: 01/20/22 07:26 Freq: Status: Active Protocol: Document 01/20/22 15:35 [facility] (Rec: 01/20/22 19:00 [facility] [id number]) Posture Evaluation Comments Posture Comments fwd head and inc kyphosis. R shoulder >L fwd rotated PT-OP-K Range of Motion Start: 01/20/22 07:26 Freq: Status: Active Protocol: Document 01/20/22 15:35 [facility] (Rec: 01/20/22 19:00 [facility] [id number]) Shoulder Goniometric Range of Motion Shoulder Right Passive Flexion 165 Abduction 145 External Rotation at 90 degrees 84 Abduction External Rotation at 45 degrees 70 Abduction Internal Rotation 70 Comments pain end range 45 deg ER & abd & flex; IR at 90 Right Active Flexion 150 Extension 50 Abduction 85 External Rotation at 0 degrees Abduction 0 Internal Rotation Behind Back (text) T9 Comments pain w/IR & ext Left Active Flexion 123 Extension 42 Abduction 105 External Rotation at 0 degrees Abduction 1 Internal Rotation Behind Back (text) T6 PT-OP-L Special Tests Start: 01/20/22 07:26 Freq: Status: Active Protocol: Document 01/20/22 15:35 [facility] (Rec: 01/20/22 19:00 [facility] [id number]) Special Tests Cervical Spine Special Tests Vertebral Artery Test Results neg Spurling's Test Test Results neg Shoulder Special Tests Davis Test Test Results neg R for dec pulse but inc RUE tingling Adson Maneuver Test Results neg for dec pulse but inc tingling R Empty Can Comments positive for weakness; no pain Cerrato Juan Impingement Test Results neg Neer Impingement Test Results neg Neural Special Tests- Upper Body Median Nerve Tension Test Results positive for tightness Radial Nerve Tension Test Results neg Ulnar Nerve Tension Test Results neg PT-OP-M Strength Start: 01/20/22 07:26 Freq: Status: Active Protocol: Document 01/20/22 15:35 [facility] (Rec: 01/20/22 19:00 [facility] [id number]) Shoulder Strength Shoulder Manual Muscle Testing Right Flexion 3+ Fair+ Extension 4 Good Abduction (C5) 3+ Fair+ External Rotation 2- Poor- Internal Rotation 4- Good- Comments pain in elbow med w/IR Left Flexion 4 Good Extension 4+ Good+ Abduction (C5) 4 Good External Rotation 2- Poor- Internal Rotation 4 Good Elbow/Forearm Strength Elbow and Forearm Manual Muscle Testing Right Flexion (C6) 4 Good Extension (C7) 4 Good Pronation 4 Good Supination 5 Normal Comments pain w/pronation; brachialis 4 +/5 Left Flexion (C6) 5 Normal Extension (C7) 5 Normal Pronation 4- Good- Supination 5 Normal Comments brachialis 5/5 Wrist Strength Wrist Manual Muscle Testing Right Flexion (C7) 4- Good- Extension (C6) 4+ Good+ Ulnar Deviation 4+ Good+ Radial Deviation 4- Good- Comments pain in med elbow Left Flexion (C7) 4 Good Extension (C6) 5 Normal Ulnar Deviation 5 Normal Radial Deviation 5 Normal Hand Integrated Marketing Manager/Pinch Strength Hand Dominance Hand Dominance Right Hand Strength Right Comments 35, 41,34 Left Comments 30,29, 25 PT-OP-Q Treatments Start: 01/20/22 07:26 Freq: Status: Active Protocol: Document 01/22/22 08:24 [facility] (Rec: 01/22/22 10:36 [facility] [id number]) Therapeutic Exercises Supine Exercises axial elongation Reps/Minutes 5 sec x10 self; C5-6 R PT facilitation ER Supine Exercise Name AAROM Side right Equipment Used cane Reps/Minutes 15 flex Side right Equipment Used 1# Reps/Minutes 15 Manual Therapy Treatment Soft Tissue Mobilization median n path Body Location w/AAROM wrist ext Mobilization Type Rolling,Sustained Pressure Intensity/Depth Moderate Body Position Supine Joint Mobilizations GH Joint r Direction post FM AC Joint acromion post FM R PT-OP-T Assessment and Plan Start: 01/20/22 07:26 Freq: Status: Active Protocol: Document 01/22/22 08:24 [facility] (Rec: 01/22/22 10:36 [facility] [id number]) Physical Therapy Assessment Goals tingling Continuous Process Rotary Drum Tanner Goal (LTG) Pt will report at lest 70% dec in tingling in RUE . LTG Duration 04/14/22 strength Short Term Goal (STG) Pt will be indep w/HEP STG Duration 03/07/22 Continuous Process Rotary Drum Tanner Goal (LTG) Pt will score at least 4/5 RUE strength to allow pt enough strength for overhead activities. LTG Duration 04/14/22 activity Short Term Goal (STG) Pt will be able to blow dry hair without issue STG Duration 03/15/22 Senior Living Goal (LTG) Pt will have no issues w/ reaching into cabinets & grabbing different objects LTG Duration 04/14/22 One Impairment unable to reach overhead Short Term Goal (STG) Pt will improve AROM of flex and abd by 10 deg STG Duration 03/08/22 Continuous Process Rotary Drum Tanner Goal (LTG) Pt will have full AROM of R shoulder (equal to her PROM) to allow her to do more overhead activtiies w/o issues . LTG Duration 04/14/22 Assessment Summary Assessment Pt had improved median n tension w/manual treatment and w/cervical retraction manul resistance had improved shoulder flex strength. Cues requied w/exercises. Physical Therapy Plan Frequency and Duration Frequency of Treatment 1-2x/wk Duration of treatment (weeks) 12 Plan of Care Start Date 01/20/22 Plan of Care End Date 04/14/22 Next Visit Focus/Plan Next Note Type Treatment Note Next Visit Plan review HEP, cont to work manually along median n path
--- NOTE | 2022-01-28 16:51 | PT.OTN ---
Current Diagnoses Abnormal posture (01/28/22) Weakness (01/28/22) Strain of muscle(s) and tendon(s) of the rotator cuff of right shoulder, initial encounter (01/28/22) Physical Therapy Treatment Note PT-OP-A Visit Information Start: 01/20/22 07:26 Freq: Status: Active Protocol: Document 01/28/22 16:08 [facility] (Rec: 01/28/22 16:51 [facility] [id number]) Out-Patient Physical Therapy Visit Information Visit Information Visit Type Treatment Note Visit Note 05/15 Visit Start Time 16:05 Visit Stop Time 16:45 Total Visit Minutes 40 Visit Number 3 Number of MEDICAL TRANSCRIPTION SUPERVISOR Visits 0 PT-OP-B Current Condition Start: 01/20/22 07:26 Freq: Status: Active Protocol: Document 01/20/22 15:35 [facility] (Rec: 01/20/22 19:00 [facility] [id number]) Current Condition History of Current Condition Onset Date 8 months to a year Current Complaints R shoulder weakness History of Current Condition Pt has history of R RCR in 2013 and had a recent loss of ROM on RUE. She saw ortho who doesn't plan to do MRI because he doens't plan to do surgery . She sometimes has to hold arm up to be able to reach spices. She can lift things that are lower. Typically she can lift her up every day. She did tear biceps on R side. SHe has been doing some AAROM exercises from [place]. She has no R shoulder pain, but does have weakness. It is acting like her L shoulder did before TSA. She has no issues w/pool exercises. Trying to dry her hair is difficult because she uses a roll brush and has difficulty getting to the back of her head. Pt denies neck pain. She has history of chronoic back and B foot pain with multiple surgeries. She has had a lot of injections and is awaiting a rhizotomy. Pt reports a fall in dec when she missed when sitting onto a low toilet. She did have some other falls onto her R shoulder in July and unsure if a fall that started this. Cannot lift med to lg size groceries off the shelf. Pt reports med elbows have been painful B. When she looks at her phone she goes numb and tingling in palmar aspect of phone and has to switch hand. She thinks it is her entire hand. Pt also has ongoing L sided chest pain in ribs that has been for 1 year with cardio testing not notable for any cardiac event. Treatment Goals Patient/Caregiver Goals Be able to do hair w/ease; be able to lift UE up overhead. PT-OP-C Subjective Start: 01/20/22 07:26 Freq: Status: Active Protocol: Document 01/28/22 16:08 [facility] (Rec: 01/28/22 16:51 [facility] [id number]) OP-PT Subjective Patient Comments Patient Comments Pt reports she is scheduled in Mar to see ortho and is scheduled to see [facility] PT-OP-J Posture/Palpation/Skin Start: 01/20/22 07:26 Freq: Status: Active Protocol: Document 01/20/22 15:35 [facility] (Rec: 01/20/22 19:00 [facility] [id number]) Posture Evaluation Comments Posture Comments fwd head and inc kyphosis. R shoulder >L fwd rotated PT-OP-K Range of Motion Start: 01/20/22 07:26 Freq: Status: Active Protocol: Document 01/20/22 15:35 [facility] (Rec: 01/20/22 19:00 [facility] [id number]) Shoulder Goniometric Range of Motion Shoulder Right Passive Flexion 165 Abduction 145 External Rotation at 90 degrees 84 Abduction External Rotation at 45 degrees 70 Abduction Internal Rotation 70 Comments pain end range 45 deg ER & abd & flex; IR at 90 Right Active Flexion 150 Extension 50 Abduction 85 External Rotation at 0 degrees Abduction 0 Internal Rotation Behind Back (text) T9 Comments pain w/IR & ext Left Active Flexion 123 Extension 42 Abduction 105 External Rotation at 0 degrees Abduction 1 Internal Rotation Behind Back (text) T6 PT-OP-L Special Tests Start: 01/20/22 07:26 Freq: Status: Active Protocol: Document 01/20/22 15:35 [facility] (Rec: 01/20/22 19:00 [facility] [id number]) Special Tests Cervical Spine Special Tests Vertebral Artery Test Results neg Spurling's Test Test Results neg Shoulder Special Tests Davis Test Test Results neg R for dec pulse but inc RUE tingling Adson Maneuver Test Results neg for dec pulse but inc tingling R Empty Can Comments positive for weakness; no pain Cerrato Juan Impingement Test Results neg Neer Impingement Test Results neg Neural Special Tests- Upper Body Median Nerve Tension Test Results positive for tightness Radial Nerve Tension Test Results neg Ulnar Nerve Tension Test Results neg PT-OP-M Strength Start: 01/20/22 07:26 Freq: Status: Active Protocol: Document 01/20/22 15:35 [facility] (Rec: 01/20/22 19:00 [facility] [id number]) Shoulder Strength Shoulder Manual Muscle Testing Right Flexion 3+ Fair+ Extension 4 Good Abduction (C5) 3+ Fair+ External Rotation 2- Poor- Internal Rotation 4- Good- Comments pain in elbow med w/IR Left Flexion 4 Good Extension 4+ Good+ Abduction (C5) 4 Good External Rotation 2- Poor- Internal Rotation 4 Good Elbow/Forearm Strength Elbow and Forearm Manual Muscle Testing Right Flexion (C6) 4 Good Extension (C7) 4 Good Pronation 4 Good Supination 5 Normal Comments pain w/pronation; brachialis 4 +/5 Left Flexion (C6) 5 Normal Extension (C7) 5 Normal Pronation 4- Good- Supination 5 Normal Comments brachialis 5/5 Wrist Strength Wrist Manual Muscle Testing Right Flexion (C7) 4- Good- Extension (C6) 4+ Good+ Ulnar Deviation 4+ Good+ Radial Deviation 4- Good- Comments pain in med elbow Left Flexion (C7) 4 Good Extension (C6) 5 Normal Ulnar Deviation 5 Normal Radial Deviation 5 Normal Hand Viner Operator/Pinch Strength Hand Dominance Hand Dominance Right Hand Strength Right Comments 35, 41,34 Left Comments 30,29, 25 PT-OP-Q Treatments Start: 01/20/22 07:26 Freq: Status: Active Protocol: Document 01/28/22 16:08 [facility] (Rec: 01/28/22 16:51 [facility] [id number]) Cardio Equipment Upper Body Ergometer (UBE) Duration (Minutes) 6 Seat Position 10 Height 4 Therapeutic Exercises Supine Exercises chest press Supine Exercise Name w/serratus punch Side right Equipment Used 2# Reps/Minutes 12 axial elongation Reps/Minutes 5 sec x10 self resisted at chin ER Supine Exercise Name AAROM Side right Equipment Used cane Reps/Minutes 10 Comments seated instead flex Side right Equipment Used 1# Reps/Minutes 15 Standing Exercises row Side bilateral Equipment Used L1 Reps/Minutes 15 isometric Standing Exercise Name ER Side right Reps/Minutes 5 sec x8 Manual Therapy Treatment Soft Tissue Mobilization superior Body Location R UT, scalenes Mobilization Type Rolling,Strumming,Sustained Pressure Intensity/Depth Moderate Body Position Sidelying pec Body Location R Mobilization Type Sustained Pressure Intensity/Depth Moderate Body Position Supine Joint Mobilizations AC Joint acromion post FM R PT-OP-T Assessment and Plan Start: 01/20/22 07:26 Freq: Status: Active Protocol: Document 01/28/22 16:08 [facility] (Rec: 01/28/22 16:51 [facility] [id number]) Physical Therapy Assessment Goals tingling Grounds Keeper Goal (LTG) Pt will report at lest 70% dec in tingling in RUE . LTG Duration 04/14/22 strength Short Term Goal (STG) Pt will be indep w/HEP STG Duration 03/07/22 Grounds Keeper Goal (LTG) Pt will score at least 4/5 RUE strength to allow pt enough strength for overhead activities. LTG Duration 04/14/22 activity Short Term Goal (STG) Pt will be able to blow dry hair without issue STG Duration 03/15/22 Detention Goal (LTG) Pt will have no issues w/ reaching into cabinets & grabbing different objects LTG Duration 04/14/22 One Impairment unable to reach overhead Short Term Goal (STG) Pt will improve AROM of flex and abd by 10 deg STG Duration 03/08/22 Grounds Keeper Goal (LTG) Pt will have full AROM of R shoulder (equal to her PROM) to allow her to do more overhead activtiies w/o issues . LTG Duration 04/14/22 Assessment Summary Assessment Pt did well with exercises with some cueing and reminders along w/adjusting some of the physician given exercises. Tightness is notable around shoulder. Physical Therapy Plan Frequency and Duration Frequency of Treatment 1-2x/wk Duration of treatment (weeks) 12 Plan of Care Start Date 01/20/22 Plan of Care End Date 04/14/22 Next Visit Focus/Plan Next Note Type Treatment Note Next Visit Plan cervical & scap stability, cont to work manually along median n path
--- NOTE | 2022-02-04 10:06 | PT.OTN ---
Current Diagnoses Abnormal posture (02/04/22) Weakness (02/04/22) Strain of muscle(s) and tendon(s) of the rotator cuff of right shoulder, initial encounter (02/04/22) Physical Therapy Treatment Note PT-OP-A Visit Information Start: 01/20/22 07:26 Freq: Status: Active Protocol: Document 02/04/22 07:32 [facility] (Rec: 02/04/22 10:06 [facility] [id number]) Out-Patient Physical Therapy Visit Information Visit Information Visit Type Treatment Note Visit Note 06/15 Visit Start Time 08:20 Visit Stop Time 09:00 Total Visit Minutes 40 Visit Number 4 Number of MARKET RESEARCH ANALYST Visits 0 PT-OP-B Current Condition Start: 01/20/22 07:26 Freq: Status: Active Protocol: Document 01/20/22 15:35 [facility] (Rec: 01/20/22 19:00 [facility] [id number]) Current Condition History of Current Condition Onset Date 8 months to a year Current Complaints R shoulder weakness History of Current Condition Pt has history of R RCR in 2013 and had a recent loss of ROM on RUE. She saw ortho who doesn't plan to do MRI because he doens't plan to do surgery . She sometimes has to hold arm up to be able to reach spices. She can lift things that are lower. Typically she can lift her up every day. She did tear biceps on R side. SHe has been doing some AAROM exercises from [place]. She has no R shoulder pain, but does have weakness. It is acting like her L shoulder did before TSA. She has no issues w/pool exercises. Trying to dry her hair is difficult because she uses a roll brush and has difficulty getting to the back of her head. Pt denies neck pain. She has history of chronoic back and B foot pain with multiple surgeries. She has had a lot of injections and is awaiting a rhizotomy. Pt reports a fall in dec when she missed when sitting onto a low toilet. She did have some other falls onto her R shoulder in July and unsure if a fall that started this. Cannot lift med to lg size groceries off the shelf. Pt reports med elbows have been painful B. When she looks at her phone she goes numb and tingling in palmar aspect of phone and has to switch hand. She thinks it is her entire hand. Pt also has ongoing L sided chest pain in ribs that has been for 1 year with cardio testing not notable for any cardiac event. Treatment Goals Patient/Caregiver Goals Be able to do hair w/ease; be able to lift UE up overhead. PT-OP-C Subjective Start: 01/20/22 07:26 Freq: Status: Active Protocol: Document 02/04/22 07:32 [facility] (Rec: 02/04/22 10:06 [facility] [id number]) OP-PT Subjective Patient Comments Patient Comments Pt reports med elbow pain that is annoying and last night it just ached. PT-OP-J Posture/Palpation/Skin Start: 01/20/22 07:26 Freq: Status: Active Protocol: Document 01/20/22 15:35 [facility] (Rec: 01/20/22 19:00 [facility] [id number]) Posture Evaluation Comments Posture Comments fwd head and inc kyphosis. R shoulder >L fwd rotated PT-OP-K Range of Motion Start: 01/20/22 07:26 Freq: Status: Active Protocol: Document 01/20/22 15:35 [facility] (Rec: 01/20/22 19:00 [facility] [id number]) Shoulder Goniometric Range of Motion Shoulder Right Passive Flexion 165 Abduction 145 External Rotation at 90 degrees 84 Abduction External Rotation at 45 degrees 70 Abduction Internal Rotation 70 Comments pain end range 45 deg ER & abd & flex; IR at 90 Right Active Flexion 150 Extension 50 Abduction 85 External Rotation at 0 degrees Abduction 0 Internal Rotation Behind Back (text) T9 Comments pain w/IR & ext Left Active Flexion 123 Extension 42 Abduction 105 External Rotation at 0 degrees Abduction 1 Internal Rotation Behind Back (text) T6 PT-OP-L Special Tests Start: 01/20/22 07:26 Freq: Status: Active Protocol: Document 01/20/22 15:35 [facility] (Rec: 01/20/22 19:00 [facility] [id number]) Special Tests Cervical Spine Special Tests Vertebral Artery Test Results neg Spurling's Test Test Results neg Shoulder Special Tests Davis Test Test Results neg R for dec pulse but inc RUE tingling Adson Maneuver Test Results neg for dec pulse but inc tingling R Empty Can Comments positive for weakness; no pain Cerrato Juan Impingement Test Results neg Neer Impingement Test Results neg Neural Special Tests- Upper Body Median Nerve Tension Test Results positive for tightness Radial Nerve Tension Test Results neg Ulnar Nerve Tension Test Results neg PT-OP-M Strength Start: 01/20/22 07:26 Freq: Status: Active Protocol: Document 01/20/22 15:35 [facility] (Rec: 01/20/22 19:00 [facility] [id number]) Shoulder Strength Shoulder Manual Muscle Testing Right Flexion 3+ Fair+ Extension 4 Good Abduction (C5) 3+ Fair+ External Rotation 2- Poor- Internal Rotation 4- Good- Comments pain in elbow med w/IR Left Flexion 4 Good Extension 4+ Good+ Abduction (C5) 4 Good External Rotation 2- Poor- Internal Rotation 4 Good Elbow/Forearm Strength Elbow and Forearm Manual Muscle Testing Right Flexion (C6) 4 Good Extension (C7) 4 Good Pronation 4 Good Supination 5 Normal Comments pain w/pronation; brachialis 4 +/5 Left Flexion (C6) 5 Normal Extension (C7) 5 Normal Pronation 4- Good- Supination 5 Normal Comments brachialis 5/5 Wrist Strength Wrist Manual Muscle Testing Right Flexion (C7) 4- Good- Extension (C6) 4+ Good+ Ulnar Deviation 4+ Good+ Radial Deviation 4- Good- Comments pain in med elbow Left Flexion (C7) 4 Good Extension (C6) 5 Normal Ulnar Deviation 5 Normal Radial Deviation 5 Normal Hand Plant And Machinery Valuer/Pinch Strength Hand Dominance Hand Dominance Right Hand Strength Right Comments 35, 41,34 Left Comments 30,29, 25 PT-OP-Q Treatments Start: 01/20/22 07:26 Freq: Status: Active Protocol: Document 02/04/22 07:32 [facility] (Rec: 02/04/22 10:06 [facility] [id number]) Therapeutic Exercises Supine Exercises chest press Supine Exercise Name w/serratus punch Side right Equipment Used 3# Reps/Minutes 2x8 Comments cues no scap elevation axial elongation Reps/Minutes 5 secx 5 self resisted at chin x20 w/o resistance Standing Exercises row Side bilateral Equipment Used L2 Reps/Minutes 20 isometric Standing Exercise Name ER Side right Reps/Minutes 5 sec x8 Manual Therapy Treatment Soft Tissue Mobilization post Body Location R subscap, teres, lats Mobilization Type Sustained Pressure Comments w/overhead movement superior Body Location R UT Mobilization Type Rolling,Strumming,Sustained Pressure Intensity/Depth Moderate Body Position Supine pec Body Location R Mobilization Type Sustained Pressure Intensity/Depth Moderate Body Position Supine Comments w/abd & rot Joint Mobilizations GH Joint r Direction post &inf FM AC Joint acromion post FM R PT-OP-T Assessment and Plan Start: 01/20/22 07:26 Freq: Status: Active Protocol: Document 02/04/22 07:32 [facility] (Rec: 02/04/22 10:06 [facility] [id number]) Physical Therapy Assessment Goals tingling Custodial Goal (LTG) Pt will report at lest 70% dec in tingling in RUE . LTG Duration 04/14/22 strength Short Term Goal (STG) Pt will be indep w/HEP STG Duration 03/07/22 Custodial Goal (LTG) Pt will score at least 4/5 RUE strength to allow pt enough strength for overhead activities. LTG Duration 04/14/22 activity Short Term Goal (STG) Pt will be able to blow dry hair without issue STG Duration 03/15/22 Silk Spotter Goal (LTG) Pt will have no issues w/ reaching into cabinets & grabbing different objects LTG Duration 04/14/22 One Impairment unable to reach overhead Short Term Goal (STG) Pt will improve AROM of flex and abd by 10 deg STG Duration 03/08/22 Custodial Goal (LTG) Pt will have full AROM of R shoulder (equal to her PROM) to allow her to do more overhead activtiies w/o issues . LTG Duration 04/14/22 Assessment Summary Assessment More cues needed today w/ exercises especailly for cervical stability and ER. She is improving w/PROM w/better GH mechanics. Physical Therapy Plan Frequency and Duration Frequency of Treatment 1-2x/wk Duration of treatment (weeks) 12 Plan of Care Start Date 01/20/22 Plan of Care End Date 04/14/22 Next Visit Focus/Plan Next Note Type Treatment Note Next Visit Plan cervical & scap stability, cont to work manually along median n path
--- NOTE | 2022-02-09 10:35 | PT.OTN ---
Current Diagnoses Abnormal posture (02/09/22) Weakness (02/09/22) Strain of muscle(s) and tendon(s) of the rotator cuff of right shoulder, initial encounter (02/09/22) Physical Therapy Treatment Note PT-OP-A Visit Information Start: 01/20/22 07:26 Freq: Status: Active Protocol: Document 02/09/22 09:53 [facility] (Rec: 02/09/22 10:35 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 (Rec: 01/20/22 19:00 [facility] [id number]) Current Condition History of Current Condition Onset Date 8 months to a year Current Complaints R shoulder weakness History of Current Condition Pt has history of R RCR in 2013 and had a recent loss of ROM on RUE. She saw ortho who doesn't plan to do MRI because he doens't plan to do surgery . She sometimes has to hold arm up to be able to reach spices. She can lift things that are lower. Typically she can lift her up every day. She did tear biceps on R side. SHe has been doing some AAROM exercises from [place]. She has no R shoulder pain, but does have weakness. It is acting like her L shoulder did before TSA. She has no issues w/pool exercises. Trying to dry her hair is difficult because she uses a roll brush and has difficulty getting to the back of her head. Pt denies neck pain. She has history of chronoic back and B foot pain with multiple surgeries. She has had a lot of injections and is awaiting a rhizotomy. Pt reports a fall in dec when she missed when sitting onto a low toilet. She did have some other falls onto her R shoulder in July and unsure if a fall that started this. Cannot lift med to lg size groceries off the shelf. Pt reports med elbows have been painful B. When she looks at her phone she goes numb and tingling in palmar aspect of phone and has to switch hand. She thinks it is her entire hand. Pt also has ongoing L sided chest pain in ribs that has been for 1 year with cardio testing not notable for any cardiac event. Treatment Goals Patient/Caregiver Goals Be able to do hair w/ease; be able to lift UE up overhead. PT-OP-C Subjective Start: 01/20/22 07:26 Freq: Status: Active Protocol: Document 02/09/22 09:53 [facility] (Rec: 02/09/22 10:35 [facility] [id number]) OP-PT Subjective Patient Comments Patient Comments Pt reports compliance w/ exercises. Notes elbows have been painful. Seecolin MILNER MD PT-OP-J Posture/Palpation/Skin Start: 01/20/22 07:26 Freq: Status: Active Protocol: Document 01/20/22 15:35 [facility] (Rec: 01/20/22 19:00 [facility] [id number]) Posture Evaluation Comments Posture Comments fwd head and inc kyphosis. R shoulder >L fwd rotated PT-OP-K Range of Motion Start: 01/20/22 07:26 Freq: Status: Active Protocol: Document 01/20/22 15:35 [facility] (Rec: 01/20/22 19:00 [facility] [id number]) Shoulder Goniometric Range of Motion Shoulder Right Passive Flexion 165 Abduction 145 External Rotation at 90 degrees 84 Abduction External Rotation at 45 degrees 70 Abduction Internal Rotation 70 Comments pain end range 45 deg ER & abd & flex; IR at 90 Right Active Flexion 150 Extension 50 Abduction 85 External Rotation at 0 degrees Abduction 0 Internal Rotation Behind Back (text) T9 Comments pain w/IR & ext Left Active Flexion 123 Extension 42 Abduction 105 External Rotation at 0 degrees Abduction 1 Internal Rotation Behind Back (text) T6 PT-OP-L Special Tests Start: 01/20/22 07:26 Freq: Status: Active Protocol: Document 01/20/22 15:35 [facility] (Rec: 01/20/22 19:00 [facility] [id number]) Special Tests Cervical Spine Special Tests Vertebral Artery Test Results neg Spurling's Test Test Results neg Shoulder Special Tests Davis Test Test Results neg R for dec pulse but inc RUE tingling Adson Maneuver Test Results neg for dec pulse but inc tingling R Empty Can Comments positive for weakness; no pain Cerrato Juan Impingement Test Results neg Neer Impingement Test Results neg Neural Special Tests- Upper Body Median Nerve Tension Test Results positive for tightness Radial Nerve Tension Test Results neg Ulnar Nerve Tension Test Results neg PT-OP-M Strength Start: 01/20/22 07:26 Freq: Status: Active Protocol: Document 01/20/22 15:35 [facility] (Rec: 01/20/22 19:00 [facility] [id number]) Shoulder Strength Shoulder Manual Muscle Testing Right Flexion 3+ Fair+ Extension 4 Good Abduction (C5) 3+ Fair+ External Rotation 2- Poor- Internal Rotation 4- Good- Comments pain in elbow med w/IR Left Flexion 4 Good Extension 4+ Good+ Abduction (C5) 4 Good External Rotation 2- Poor- Internal Rotation 4 Good Elbow/Forearm Strength Elbow and Forearm Manual Muscle Testing Right Flexion (C6) 4 Good Extension (C7) 4 Good Pronation 4 Good Supination 5 Normal Comments pain w/pronation; brachialis 4 +/5 Left Flexion (C6) 5 Normal Extension (C7) 5 Normal Pronation 4- Good- Supination 5 Normal Comments brachialis 5/5 Wrist Strength Wrist Manual Muscle Testing Right Flexion (C7) 4- Good- Extension (C6) 4+ Good+ Ulnar Deviation 4+ Good+ Radial Deviation 4- Good- Comments pain in med elbow Left Flexion (C7) 4 Good Extension (C6) 5 Normal Ulnar Deviation 5 Normal Radial Deviation 5 Normal 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 (Rec: 02/09/22 10:35 [facility] [id number]) Cardio Equipment Upper Body Ergometer (UBE) Duration (Minutes) 6 Seat Position 10 Height 5 Therapeutic Exercises Supine Exercises chest press Supine Exercise Name w/serratus punch Side right Equipment Used 3# Reps/Minutes 2x8 Comments cues no scap elevation axial elongation Reps/Minutes x8 w/o resistance 5 sec x8 w/ self resist flex Side right Equipment Used 1# Reps/Minutes 15 Sidelying Exercises ER Sidelying Exercise Name AAROm w/PT assist as little as possible Side right Reps/Minutes 8 Comments towel at elbow abd Side right Equipment Used 1# Reps/Minutes 15 Standing Exercises row Standing Exercise Name B straight arm ext then abd Side bilateral Equipment Used L2 Reps/Minutes 20 Comments cues scap Manual Therapy Treatment Soft Tissue Mobilization post Body Location R subscap, teres, lats Mobilization Type Sustained Pressure Comments w/overhead movement Joint Mobilizations GH Joint r Direction post &inf FM AC Joint acromion post FM R Self-Care/Home Management Treatment Education Other Education anatomy of UE including elbow PT-OP-T Assessment and Plan Start: 01/20/22 07:26 Freq: Status: Active Protocol: Document 02/09/22 09:53 [facility] (Rec: 02/09/22 10:35 [facility] [id number]) Physical Therapy Assessment Goals tingling Group Home Goal (LTG) Pt will report at lest 70% dec in tingling in RUE . LTG Duration 04/14/22 strength Short Term Goal (STG) Pt will be indep w/HEP STG Duration 03/07/22 Group Home Goal (LTG) Pt will score at least 4/5 RUE strength to allow pt enough strength for overhead activities. LTG Duration 04/14/22 activity Short Term Goal (STG) Pt will be able to blow dry hair without issue STG Duration 03/15/22 Group Home Goal (LTG) Pt will have no issues w/ reaching into cabinets & grabbing different objects LTG Duration 04/14/22 One Impairment unable to reach overhead Short Term Goal (STG) Pt will improve AROM of flex and abd by 10 deg STG Duration 03/08/22 Group Home Goal (LTG) Pt will have full AROM of R shoulder (equal to her PROM) to allow her to do more overhead activtiies w/o issues . LTG Duration 04/14/22 Assessment Summary Assessment cues still needed with exercises but pt did show better performance w/axial elongation. She is doing well with overhead exercises. Physical Therapy Plan Frequency and Duration Frequency of Treatment 1-2x/wk Duration of treatment (weeks) 12 Plan of Care Start Date 01/20/22 Plan of Care End Date 04/14/22 Next Visit Focus/Plan Next Note Type Treatment Note Next Visit Plan cervical & scap stability, cont to work manually along median n path
--- NOTE | 2022-03-10 10:30 | PT.OTN ---
Current Diagnoses Abnormal posture (03/10/22) Weakness (03/10/22) Strain of muscle(s) and tendon(s) of the rotator cuff of right shoulder, initial encounter (03/10/22) Physical Therapy Treatment Note PT-OP-A Visit Information Start: 01/20/22 07:26 Freq: Status: Active Protocol: Document 03/10/22 09:54 [facility] (Rec: 03/10/22 10:29 [facility] [id number]) Out-Patient Physical Therapy Visit Information Visit Information Visit Type Progress Note Visit Note 08/15 Visit Start Time 09:50 Visit Stop Time 10:30 Total Visit Minutes 40 Visit Number 6 Number of OPHTHALMIC SURGICAL ASSISTANT Visits 0 PT-OP-B Current Condition Start: 01/20/22 07:26 Freq: Status: Active Protocol: Document 01/20/22 15:35 [facility] (Rec: 01/20/22 19:00 [facility] [id number]) Current Condition History of Current Condition Onset Date 8 months to a year Current Complaints R shoulder weakness History of Current Condition Pt has history of R RCR in 2013 and had a recent loss of ROM on RUE. She saw ortho who doesn't plan to do MRI because he doens't plan to do surgery . She sometimes has to hold arm up to be able to reach spices. She can lift things that are lower. Typically she can lift her up every day. She did tear biceps on R side. SHe has been doing some AAROM exercises from [facility]. She has no R shoulder pain, but does have weakness. It is acting like her L shoulder did before TSA. She has no issues w/pool exercises. Trying to dry her hair is difficult because she uses a roll brush and has difficulty getting to the back of her head. Pt denies neck pain. She has history of chronoic back and B foot pain with multiple surgeries. She has had a lot of injections and is awaiting a rhizotomy. Pt reports a fall in dec when she missed when sitting onto a low toilet. She did have some other falls onto her R shoulder in July and unsure if a fall that started this. Cannot lift med to lg size groceries off the shelf. Pt reports med elbows have been painful B. When she looks at her phone she goes numb and tingling in palmar aspect of phone and has to switch hand. She thinks it is her entire hand. Pt also has ongoing L sided chest pain in ribs that has been for 1 year with cardio testing not notable for any cardiac event. Treatment Goals Patient/Caregiver Goals Be able to do hair w/ease; be able to lift UE up overhead. PT-OP-C Subjective Start: 01/20/22 07:26 Freq: Status: Active Protocol: Document 03/10/22 09:54 [facility] (Rec: 03/10/22 10:29 [facility] [id number]) OP-PT Subjective Patient Comments Patient Comments Pt reports having PNA for past several weeks. She has had 3 episodes whrere legs gave out on her. Back has been really bad. She saw ortho for R hip who is referring her for greater trochanter bursitis and injected the bursa. She has arthritis in both hips but not bad enough to do LULU PT-OP-J Posture/Palpation/Skin Start: 01/20/22 07:26 Freq: Status: Active Protocol: Document 01/20/22 15:35 [facility] (Rec: 01/20/22 19:00 [facility] [id number]) Posture Evaluation Comments Posture Comments fwd head and inc kyphosis. R shoulder >L fwd rotated PT-OP-K Range of Motion Start: 01/20/22 07:26 Freq: Status: Active Protocol: Document 03/10/22 09:54 [facility] (Rec: 03/10/22 10:29 [facility] [id number]) Shoulder Goniometric Range of Motion Shoulder Right Active Flexion 159 Extension 50 Abduction 160 External Rotation at 0 degrees Abduction 0 Internal Rotation Behind Back (text) T5 Comments pain w/IR & ext PT-OP-L Special Tests Start: 01/20/22 07:26 Freq: Status: Active Protocol: Document 01/20/22 15:35 [facility] (Rec: 01/20/22 19:00 [facility] [id number]) Special Tests Cervical Spine Special Tests Vertebral Artery Test Results neg Spurling's Test Test Results neg Shoulder Special Tests Davis Test Test Results neg R for dec pulse but inc RUE tingling Adson Maneuver Test Results neg for dec pulse but inc tingling R Empty Can Comments positive for weakness; no pain Cerrato Juan Impingement Test Results neg Neer Impingement Test Results neg Neural Special Tests- Upper Body Median Nerve Tension Test Results positive for tightness Radial Nerve Tension Test Results neg Ulnar Nerve Tension Test Results neg PT-OP-M Strength Start: 01/20/22 07:26 Freq: Status: Active Protocol: Document 03/10/22 09:54 [facility] (Rec: 03/10/22 10:29 [facility] [id number]) Shoulder Strength Shoulder Manual Muscle Testing Right Flexion 4- Good- Extension 5 Normal Abduction (C5) 4- Good- External Rotation 2- Poor- Internal Rotation 4 Good Left Flexion 4 Good Extension 5 Normal Abduction (C5) 4 Good External Rotation 2- Poor- Internal Rotation 4 Good PT-OP-Q Treatments Start: 01/20/22 07:26 Freq: Status: Active Protocol: Document 03/10/22 09:54 [facility] (Rec: 03/10/22 10:29 [facility] [id number]) Cardio Equipment Upper Body Ergometer (UBE) Duration (Minutes) 6 Seat Position 10 Height 5 Therapeutic Exercises Supine Exercises chest press Supine Exercise Name w/serratus punch Side right Equipment Used 3# Reps/Minutes 8 Comments cues no scap elevation axial elongation Reps/Minutes w/self resist 5 sec x10 flex Side right Equipment Used 1# Reps/Minutes 10 Sidelying Exercises ER Sidelying Exercise Name AAROm w/PT assist as little as possible Side right Reps/Minutes 10 Comments towel at elbow abd Side right Equipment Used 2# Reps/Minutes 15 Standing Exercises row Standing Exercise Name B straight arm ext then abd Side bilateral Equipment Used L2 Reps/Minutes 10 Comments cues scap isometric Standing Exercise Name ER Side right Reps/Minutes 5 sec x8 PT-OP-T Assessment and Plan Start: 01/20/22 07:26 Freq: Status: Active Protocol: Document 03/10/22 09:54 [facility] (Rec: 03/10/22 10:29 [facility] [id number]) Physical Therapy Assessment Goals tingling Mask Former Goal (LTG) Pt will report at lest 70% dec in tingling in RUE . 1/3-still happens when holding phone at night LTG Duration 04/14/22 strength Short Term Goal (STG) Pt will be indep w/HEP STG Duration achieved Mask Former Goal (LTG) Pt will score at least 4/5 RUE strength to allow pt enough strength for overhead activities. 1/3-slow improvement LTG Duration 04/14/22 activity Short Term Goal (STG) Pt will be able to blow dry hair without issue STG Duration achieved Mask Former Goal (LTG) Pt will have no issues w/ reaching into cabinets & grabbing different objects LTG Duration achieved One Impairment unable to reach overhead Short Term Goal (STG) Pt will improve AROM of flex and abd by 10 deg STG Duration achieved Retirement Goal (LTG) Pt will have full AROM of R shoulder (equal to her PROM) to allow her to do more overhead activtiies w/o issues . /-ROM good except abd LTG Duration 04/14/22 Assessment Summary Assessment Pt did well with exercises with min cues and set up. She has improved much w/ROM except AROM ER likely d/t likely tear of RC. She has improved strength. She plans to cont exercises at home as she regains her activity tolerance after being sick. Awaiting referral for R hip and when she does get that then she plans to transition to PT for that Physical Therapy Plan Frequency and Duration Frequency of Treatment 1-2x/wk Duration of treatment (weeks) 12 Plan of Care Start Date 01/20/22 Plan of Care End Date 04/14/22 Next Visit Focus/Plan Next Note Type Discharge Summary Next Visit Plan plan to dc when pt gets order for hip as it is higher priority
--- NOTE | 2022-03-12 13:29 | PT.OPDS ---
Current Diagnoses Abnormal posture (03/10/22) Weakness (03/10/22) Strain of muscle(s) and tendon(s) of the rotator cuff of right shoulder, initial encounter (03/10/22) Visit Care Team Role Provider Type Ellie Fountain PA-C Attending Provider Physician Fig Caprifier Family Provider Primary Care Provider Referring Provider Specialty: Medical Address: [address] [place] [address], [facility] Email: [email or web address] Visit Number Visit Number 6 Discharge Summary PT-OP-B Current Condition Start: 01/20/22 07:26 Freq: Status: Active Protocol: Document 01/20/22 15:35 [facility] (Rec: 01/20/22 19:00 [facility] [id number]) Current Condition History of Current Condition Onset Date 8 months to a year Current Complaints R shoulder weakness History of Current Condition Pt has history of R RCR in 2013 and had a recent loss of ROM on RUE. She saw ortho who doesn't plan to do MRI because he doens't plan to do surgery . She sometimes has to hold arm up to be able to reach spices. She can lift things that are lower. Typically she can lift her up every day. She did tear biceps on R side. SHe has been doing some AAROM exercises from [place]. She has no R shoulder pain, but does have weakness. It is acting like her L shoulder did before TSA. She has no issues w/pool exercises. Trying to dry her hair is difficult because she uses a roll brush and has difficulty getting to the back of her head. Pt denies neck pain. She has history of chronoic back and B foot pain with multiple surgeries. She has had a lot of injections and is awaiting a rhizotomy. Pt reports a fall in dec when she missed when sitting onto a low toilet. She did have some other falls onto her R shoulder in July and unsure if a fall that started this. Cannot lift med to lg size groceries off the shelf. Pt reports med elbows have been painful B. When she looks at her phone she goes numb and tingling in palmar aspect of phone and has to switch hand. She thinks it is her entire hand. Pt also has ongoing L sided chest pain in ribs that has been for 1 year with cardio testing not notable for any cardiac event. Treatment Goals Patient/Caregiver Goals Be able to do hair w/ease; be able to lift UE up overhead. PT-OP-C Subjective Start: 01/20/22 07:26 Freq: Status: Active Protocol: Document 03/10/22 09:54 [facility] (Rec: 03/10/22 10:29 [facility] [id number]) OP-PT Subjective Patient Comments Patient Comments Pt reports having PNA for past several weeks. She has had 3 episodes whrere legs gave out on her. Back has been really bad. She saw ortho for R hip who is referring her for greater trochanter bursitis and injected the bursa. She has arthritis in both hips but not bad enough to do LULU PT-OP-J Posture/Palpation/Skin Start: 01/20/22 07:26 Freq: Status: Active Protocol: Document 01/20/22 15:35 [facility] (Rec: 01/20/22 19:00 [facility] [id number]) Posture Evaluation Comments Posture Comments fwd head and inc kyphosis. R shoulder >L fwd rotated PT-OP-K Range of Motion Start: 01/20/22 07:26 Freq: Status: Active Protocol: Document 03/10/22 09:54 [facility] (Rec: 03/10/22 10:29 [facility] [id number]) Shoulder Goniometric Range of Motion Shoulder Right Active Flexion 159 Extension 50 Abduction 160 External Rotation at 0 degrees Abduction 0 Internal Rotation Behind Back (text) T5 Comments pain w/IR & ext PT-OP-L Special Tests Start: 01/20/22 07:26 Freq: Status: Active Protocol: Document 01/20/22 15:35 [facility] (Rec: 01/20/22 19:00 [facility] [id number]) Special Tests Cervical Spine Special Tests Vertebral Artery Test Results neg Spurling's Test Test Results neg Shoulder Special Tests Davis Test Test Results neg R for dec pulse but inc RUE tingling Adson Maneuver Test Results neg for dec pulse but inc tingling R Empty Can Comments positive for weakness; no pain Cerrato Jaun Impingement Test Results neg Neer Impingement Test Results neg Neural Special Tests- Upper Body Median Nerve Tension Test Results positive for tightness Radial Nerve Tension Test Results neg Ulnar Nerve Tension Test Results neg PT-OP-M Strength Start: 01/20/22 07:26 Freq: Status: Active Protocol: Document 03/10/22 09:54 [facility] (Rec: 03/10/22 10:29 [facility] [id number]) Shoulder Strength Shoulder Manual Muscle Testing Right Flexion 4- Good- Extension 5 Normal Abduction (C5) 4- Good- External Rotation 2- Poor- Internal Rotation 4 Good Left Flexion 4 Good Extension 5 Normal Abduction (C5) 4 Good External Rotation 2- Poor- Internal Rotation 4 Good PT-OP-T Assessment and Plan Start: 01/20/22 07:26 Freq: Status: Active Protocol: Document 03/10/22 09:54 [facility] (Rec: 03/10/22 10:29 [facility] [id number]) Physical Therapy Assessment Goals tingling Fci Goal (LTG) Pt will report at lest 70% dec in tingling in RUE . 1/3-still happens when holding phone at night LTG Duration 04/14/22 strength Short Term Goal (STG) Pt will be indep w/HEP STG Duration achieved Transactional Attorney Goal (LTG) Pt will score at least 4/5 RUE strength to allow pt enough strength for overhead activities. 1/3-slow improvement LTG Duration 04/14/22 activity Short Term Goal (STG) Pt will be able to blow dry hair without issue STG Duration achieved Fci Goal (LTG) Pt will have no issues w/ reaching into cabinets & grabbing different objects LTG Duration achieved One Impairment unable to reach overhead Short Term Goal (STG) Pt will improve AROM of flex and abd by 10 deg STG Duration achieved Fci Goal (LTG) Pt will have full AROM of R shoulder (equal to her PROM) to allow her to do more overhead activtiies w/o issues . 1/3-ROM good except abd LTG Duration 04/14/22 Assessment Summary Assessment Pt did well with exercises with min cues and set up. She has improved much w/ROM except AROM ER likely d/t likely tear of RC. She has improved strength. She plans to cont exercises at home as she regains her activity tolerance after being sick. Awaiting referral for R hip and when she does get that then she plans to transition to PT for that. Pt got referral for hip so DC shoulder case at this time and pt to cont HEP. Physical Therapy Plan Frequency and Duration Frequency of Treatment 1-2x/wk Duration of treatment (weeks) 12 Plan of Care Start Date 01/20/22 Plan of Care End Date 04/14/22 Discharge Physical Therapy Discharge Comments Change to hip case as she feels indep w/shoulder HEP Next Visit Focus/Plan Next Note Type Discharge Summary Next Visit Plan plan to dc when pt gets order for hip as it is higher priority
== END 2022-03-16 13:59 | disposition home or self-care (01) ==
LOC: PHYS 09:45
PROVIDERS: Family Provider Physician Assistant; PCP Physician Assistant; Referring Provider Physician Assistant; Visit Provider Physician Assistant
DX: S46.011A Strain of muscle(s) and tendon(s) of the rotator cuff of right shoulder, initial encounter (principal); R53.1 Weakness; R29.3 Abnormal posture
CPT/HCPCS: 97110; 97140; 97162; 97535

== ENCOUNTER → 2022-03-12 11:54 | Outpatient (CLI) | payer MEDICARE, SELFPAY ==
--- NOTE | 2022-03-12 | DI.MRI.S_ITS ---
PROCEDURE: MR HIP RT WO CON INDICATIONS: rheumatoid arthritis, right hip osteoarthritis TECHNIQUE: Noncontrast coronal T1 spin echo and STIR through the bony pelvis. Coronal and axial T2 fast spin echo with fat saturation, sagittal T1 spin echo, and oblique axial T2 fast spin echo with fat saturation through the hip. COMPARISON: None. FINDINGS: Image quality: Diagnostic. Patient motion is noted. Bones and joints: Symmetric appearing bilateral [id number] hip joint osteoarthritic changes are seen with superior joint space narrowing and subchondral sclerosis. There is no marrow edema. No intraosseous lesions or fractures. No avascular necrosis of the femoral heads. No gross bony erosive changes are seen. No area of abnormal intraosseous enhancement. Postfusion changes are seen in visualized lower lumbar spine. Tendons and ligaments: Distal right gluteus medius and minimus tendinosis at their insertion on greater trochanter is seen. There is fluid distension of right trochanteric bursa concerning for bursitis. The nearby proximal iliotibial band also appears intact. The iliopsoas tendon appears intact, without adjacent bursal fluid collections or evidence for impingement syndrome. The origin of the hamstring tendon is intact at the ischial tuberosity, as well as the associated sacrotuberous ligament. The ligamentum teres appears intact where visualized. Labrum and cartilage: Limited evaluation of right hip labrum shows subtle signal abnormality and contour irregularity involving superior anterior labrum at 12 to 1 o'clock position which may represent very subtle superior anterior labral tear. Thinning of articulating cartilages of femoral head is seen. The alpha angle of the femur is within normal limits at less than 55 degrees. Soft tissues: Visualized muscles demonstrate normal bulk and internal signal. Quadratus femoris muscle demonstrates no internal edema to suggest ischiofemoral impingement. The proximal sciatic neurovascular bundle appears normal adjacent to the hamstring tendons. No free pelvic fluid. Bladder wall thickness is normal. Genitourinary structures and bowel loops appear normal where visualized. IMPRESSION: 1. Slightly degraded study due to patient motion. 2. No marrow edema. No fracture or dislocation. No evidence of avascular necrosis of femoral head. Bimc-hd-aelnnsbx bilateral hip joint osteoarthritis. Postsurgical changes are seen in lower lumbar spine. 3. Distal right gluteus medius and minimus tendinosis at their insertion on greater trochanter. Fluid distension of right trochanteric bursa concerning for bursitis. No other muscle or tendon signal abnormality is seen. 4. Finding may represent very subtle superior anterior right hip labral tear at 12 to 1 o'clock position. Dictated by: Steven Johnson M.D. on 03/12/2022 at 15:03 Approved by: Steven Johnson M.D. on 03/16/2022 at 10:36
== END ==
PROVIDERS: Family Provider Physician Assistant; PCP Physician Assistant; Referring Provider Orthopaedic Surgery; Visit Provider Orthopaedic Surgery
DX: M06.09 Rheumatoid arthritis without rheumatoid factor, multiple sites (principal); M16.0 Bilateral primary osteoarthritis of hip; Z13.820 Encounter for screening for osteoporosis; Z78.0 Asymptomatic menopausal state; Z79.52 Long term (current) use of systemic steroids; Z90.710 Acquired absence of both cervix and uterus
CPT/HCPCS: 73721; 77080

== ENCOUNTER 2022-04-02 13:58 | Outpatient (CLI) | payer MEDICARE, SELFPAY ==
[2022-04-02] VITALS (12 sets, daily range): BP systolic 124–165; BP diastolic 59–77; PULSE 49–60; RESP 13–20; TEMP 36.1; O2SAT 96–100
--- NOTE | 2022-04-02 | DI.RAD.S_ITS ---
PROCEDURE: PAIN LATERAL BRANCH BLOCK BI INDICATIONS: Sacrococcygeal disorders COMPARISON: [facility], CT, CT LUMBAR SPINE WO CON, 01/08/2022, 16:14. FINDINGS: Fluoroscopic spot filming was performed to verify placement of spinal needle at the right and left L5-S1 level and multiple spinal needles in the bilateral sacral region from S1 through S3, as labeled on the films. Appropriate location(s) of the needle tip(s) was confirmed by injection of iodinated contrast. Surgical spinal fusion hardware is present. IMPRESSION: Bilateral lumbosacral needle positioning as described above. Approved by: Sourav Herron M.D. on 04/03/2022 at 11:27
[2022-04-02] MEDS: IOPAMIDOL 15 ML VIAL 3 ML INJ (15:17)
[2022-04-02] MEDS: BUPIVACAINE 0.5% MDV 5 ML INJ (15:18)
--- NOTE | 2022-04-02 16:39 | P.PCN_ITS ---
Date/Time/Diagnoses Date of procedure: 04/02/22 Time of procedure: 16:32 Procedure Notes Physician: Scar Soto Total Fluoroscopy time (seconds): 48 Total sedation minutes: 0 Procedure in detail & Post-procedure care: Bilateral Sacral Lateral Branch Blocks Indications: Patsy is referred by Dr. Fountain for treatment of sacroilitis with low back and buttock pain. Preoperative diagnosis: Bilateral sacroilitis Postoperative diagnosis: Same Pre-procedure History: Patient demonstrates today moderate to severe non- radicular back pain without neurologic deficit aggravated by hyperextension yes Back pain greater than leg pain? yes Patient today has tenderness over the suspected joint(s) yes History of post-traumatic injury? no Pain relief from prior SI joint injection yes Back pain associated with suspected motion segment instability, hypermobility or pseudoarthrosis no Pre-testing pain score (VAS) 3/10 Focused Examination: Ax3 Mood and affect are normal Vital Signs: VSS ASA: 2 Consent: Following review of allergies and potential side effects/complications, including, but not necessarily limited to, infection, allergic reaction, local tissue breakdown, stroke, temporary or permanent nerve injury, paralysis, and possible , the patient indicated that they understood and agreed to proceed.? An informed consent document was signed by the patient, witnessed by a nurse and placed in the patient's chart.? Additionally, other treatment options including medications and physical therapy were reviewed with the patient. All questions were answered. Site was then marked. Anesthesia: Local Position: Prone Monitoring: NIBP, Pulse oximetry, 3 lead EKG Needle used: 22 and 25 gauge, 3.5 inch spinal needle Contrast: Isovue 300-M 3mL Injectate: 0.5% Bupivacaine Technique: The skin was prepped with chloraprep and then draped in a sterile fashion. Time out was performed as per protocol. Oxygen applied via NC. Midline of the spine was identified using fluoroscopy. The right L5 DR was identified and a 22 gauge spinal needle was advanced. Position was confirmed in AP and lateral views. Next, the fluoroscope was positioned using ipsilateral oblique and cephalad tilt to best visualize the sacral foramina. 25 gauge needles were placed at the 2:30, 4:00 and 5:30 postions adjacent to the S1 and S2 foramina and 2:30 and 4:00 positions adjacent to the S3 foramen. Contrast was injected and the spread was consistent with appropriate needle location. There was no evidence for intravascular uptake. After negative aspiration, 0.5 mL of 0.5% Bupivacaine was then slowly administered at the L5 DR. Next, 0.2 mL of 0.5% bupivacaine was injected at each sacral site, the needles were withdrawn approximately 3 mm and another 0.2 mL of 0.5% bupivacaine was again injected. The needles were then withdrawn. The patient expressed no unusual discomfort or paresthesias during needle positioning or injection. For the left side, midline of the spine was identified using fluoroscopy. The left L5 DR was identified and a 22 gauge spinal needle was advanced. Position was confirmed in AP and lateral views. Next, the fluoroscope was positioned using ipsilateral oblique and cephalad tilt to best visualize the sacral foramina. 25 gauge needles were placed at the 9:30, 8:00 and 6:30 postions adjacent to the S1 and S2 foramina and 9:30 and 8:00 positions adjacent to the S3 foramen. Contrast was injected and the spread was consistent with appropriate needle location. There was no evidence for intravascular uptake. After negative aspiration, 0.5 mL of 0.5% bupivacaine was then slowly administered at the L5 DR. Next, 0.2 mL of 0.5% bupivacaine was injected at each sacral site, the needles were withdrawn approximately 3 mm and another 0.2 mL of 0.5% bupivacaine was again injected. The needles were then withdrawn. The patient expressed no unusual discomfort or paresthesias during needle positioning or injection. Band- Aids applied to injection sites. EBL: less than 1 ml Complications: None Post Procedure: Patient was taken to the recovery and monitored. The patient was provided a Pain Log to continue to record the response to the target-specific procedure. Follow-up appointment was scheduled. Patient was stable upon discharge. Detailed post procedure instructions were provided. Patient was asked to call in the event of worsening pain, fever, weakness, numbness or bladder/bowel incontinence. Prescriptions: Keflex 500 mg q.i.d. x7 days
== END 2022-04-02 15:45 | disposition home or self-care (01) ==
PROVIDERS: Family Provider Physician Assistant; PCP Physician Assistant; Referring Provider Anesthesiology; Visit Provider Anesthesiology
DX: M46.1 Sacroiliitis, not elsewhere classified (principal)
CPT/HCPCS: 64451; 64454; 64494; 64495

== ENCOUNTER → 2022-04-29 11:11 | Outpatient (CLI) | payer MEDICARE, SELFPAY ==
[2022-04-29 12:46] LABS: Add Manual Diff / Slide Review NO; Basophils Absolute Auto 0 /uL (0-100); Basophils Percent Auto 0.7 % (0-2); Eosinophils Absolute Auto 0 /uL (0-450); Eosinophils Percent Auto 1.1 % (2-4); Hematocrit 40.6 % (36-46); Hemoglobin 13.5 g/dL (12.0-16.0); Lymphocytes Absolute Auto 1200 /uL (1100-4500); Lymphocytes Percent Auto 39.6 % (25-40); Mean Corpuscular HGB Conc 33.2 % (30-36); Mean Corpuscular Volume 93.6 fL (80-100); Monocytes Absolute Auto 400 /uL (0-900); Monocytes Percent Auto 12.6 % (3-14); Neutrophils Absolute Auto 1400 /uL (1500-7000); Platelet Count 158 X10^3/uL (150-400); Red Blood Cell Count 4.34 X10^6/uL (4.0-5.2); Red Cell Distribution Width 15.6 % (11.6-14.8); White Blood Cell Count 3.1 X10^3/uL (4.5-11.0)
[2022-04-29 12:51] LABS: Hemoglobin A1C% w Est Avg Glu 5.4 % (4.0-6.0)
[2022-04-29 13:42] LABS: Alanine Aminotransferase 41 IU/L (<35); Albumin 4.3 g/dL (3.5-5.0); Albumin Globulin Ratio 1.5 (1.0-2.8); Alkaline Phosphatase 52 U/L (38-126); Aspartate Aminotransferase 41 IU/L (14-36); Bilirubin Total 0.8 mg/dL (0.2-1.3); Blood Urea Nitrogen 20 mg/dL (7-17); Carbon Dioxide 29 mmol/L (22-32); Chloride 98 mmol/L (98-107); Estimated Glomerular Filt Rate > 60 mL/min (>60); Globulin 2.8 g/dL (1.7-4.1); Glucose 92 mg/dL (80-110); HEMOLYSIS < 15 (0-50); Sodium 137 mmol/L (137-145); Total Protein 7.1 g/dL (6.3-8.2)
[2022-04-30 04:09] LABS: Immunoglobulin A 89 mg/dL (64-422); Immunoglobulin G, Quantitative 737 mg/dL (586-1602); Immunoglobulin M, Quantitative 83 mg/dL (26-217)
[2022-05-01 23:11] LABS: Immunoglobulin E <2 IU/mL (6-495)
[2022-05-12 14:26] LABS: SARS CoV19 IgG >800.0
[2022-05-12 14:28] LABS: Pneumococcal AB IgG 23 serotyp 3.6
== END ==
PROVIDERS: Family Provider Physician Assistant; PCP Family Medicine; Referring Provider Physician Assistant Medical; Visit Provider Physician Assistant Medical
DX: Z79.899 Other long term (current) drug therapy (principal); M06.09 Rheumatoid arthritis without rheumatoid factor, multiple sites; Z79.52 Long term (current) use of systemic steroids; T78.3XXA Angioneurotic edema, initial encounter; Z13.1 Encounter for screening for diabetes mellitus
CPT/HCPCS: 36415; 80053; 82784; 82785; 83036; 85025; 86769

== ENCOUNTER 2022-05-14 13:32 | Outpatient (CLI) | payer MEDICARE, SELFPAY ==
[2022-05-14] VITALS (9 sets, daily range): BP systolic 141–193; BP diastolic 62–86; PULSE 55–60; RESP 16–18; TEMP 36.4; O2SAT 91–98
--- NOTE | 2022-05-14 | DI.RAD.S_ITS ---
PROCEDURE: PAIN LATERAL BRANCH BLOCK LEFT INDICATIONS: Sacrococcygeal disorders COMPARISON: [facility], XA, PAIN LATERAL BRANCH BLOCK , 04/02/2022, 15:48. FINDINGS: Fluoroscopic spot filming was performed to verify placement of spinal needles at the bilateral L5, S1, S2, and S3 levels, as labeled on the films. Appropriate locations of the needle tips was confirmed by injection of iodinated contrast. Postsurgical changes are seen in the with sacral spine. IMPRESSION: Intraprocedural examination demonstrates appropriate needle positions. Approved by: Sourav Herron M.D. on 05/15/2022 at 10:33
[2022-05-14] MEDS: IOPAMIDOL 15 ML VIAL 3 ML INJ (14:14)
[2022-05-14] MEDS: LIDOCAINE 2% INJ MDV 20ML 20 ML INJ (14:15)
--- NOTE | 2022-05-14 17:17 | PM.PROC.IR.1 ---
Date/Time/Diagnoses Date of procedure: 05/14/22 Time of procedure: 14:00 Procedure Notes Physician: Scra Soto Total Fluoroscopy time (seconds): 44 Total sedation minutes: 0 Procedure in detail & Post-procedure care: Bilateral Sacral Lateral Branch Blocks Indications: Patsy is referred by Dr. Arita for treatment of sacroilitis with low back and buttock pain. Preoperative diagnosis: Bilateral sacroilitis Postoperative diagnosis: Same Pre-procedure History: Patient demonstrates today moderate to severe non- radicular back pain without neurologic deficit aggravated by hyperextension yes Back pain greater than leg pain? yes Patient today has tenderness over the suspected joint(s) yes History of post-traumatic injury? yes Pain relief from prior SI joint injection yes Back pain associated with suspected motion segment instability, hypermobility or pseudoarthrosis no Pre-testing pain score (VAS) 6/10 Focused Examination: Ax3 Mood and affect are normal Vital Signs: VSS ASA: 2 Consent: Following review of allergies and potential side effects/complications, including, but not necessarily limited to, infection, allergic reaction, local tissue breakdown, stroke, temporary or permanent nerve injury, paralysis, and possible , the patient indicated that they understood and agreed to proceed.? An informed consent document was signed by the patient, witnessed by a nurse and placed in the patient's chart.? Additionally, other treatment options including medications and physical therapy were reviewed with the patient. All questions were answered. Site was then marked. Anesthesia: Local Position: Prone Monitoring: NIBP, Pulse oximetry, 3 lead EKG Needle used: 22 and 25 gauge, 3.5 inch spinal needles Contrast: Isovue 300-M 3mL Injectate: 2% lidocaine Technique: The skin was prepped with chloraprep and then draped in a sterile fashion. Time out was performed as per protocol. Oxygen applied via NC. Midline of the spine was identified using fluoroscopy. The right L5 DR was identified and a 22 gauge spinal needle was advanced. Position was confirmed in AP and lateral views. Next, the fluoroscope was positioned using ipsilateral oblique and cephalad tilt to best visualize the sacral foramina. 25 gauge needles were placed at the 2:30, 4:00 and 5:30 postions adjacent to the S1 and S2 foramina and 2:30 and 4:00 positions adjacent to the S3 foramen. Contrast was injected and the spread was consistent with appropriate needle location. There was no evidence for intravascular uptake. After negative aspiration, 0.5 mL of 2% lidocaine was then slowly administered and the L5 DR. Next, 0.2 mL of 2% lidocaine was injected at each sacral site, the needles were withdrawn approximately 3 mm and another 0.2 mL of 2% lidocaine was again injected. The needles were then withdrawn. The patient expressed no unusual discomfort or paresthesias during needle positioning or injection. Band-Aids applied to injection sites. For the left side, midline of the spine was identified using fluoroscopy. The left L5 DR was identified and a 22 gauge spinal needle was advanced. Position was confirmed in AP and lateral views. Next, the fluoroscope was positioned using ipsilateral oblique and cephalad tilt to best visualize the sacral foramina. 25 gauge needles were placed at the 9:30, 8:00 and 6:30 postions adjacent to the S1 and S2 foramina and 9:30 and 8:00 positions adjacent to the S3 foramen. Contrast was injected and the spread was consistent with appropriate needle location. There was no evidence for intravascular uptake. After negative aspiration, 0.5 mL of 2% lidocaine was then slowly administered and the L5 DR. Next, 0.2 mL of 2% lidocaine was injected at each sacral site, the needles were withdrawn approximately 3 mm and another 0.2 mL of 2% lidocaine was again injected. The needles were then withdrawn. The patient expressed no unusual discomfort or paresthesias during needle positioning or injection. Band-Aids applied to injection sites. EBL: less than 1 ml Complications: None Post Procedure: Patient was taken to the recovery and monitored. The patient was provided a Pain Log to continue to record the response to the target-specific procedure. Follow-up appointment was scheduled. Patient was stable upon discharge. Detailed post procedure instructions were provided. Patient was asked to call in the event of worsening pain, fever, weakness, numbness or bladder/bowel incontinence.
== END 2022-05-14 14:58 | disposition home or self-care (01) ==
PROVIDERS: PCP Family Medicine; Referring Provider Anesthesiology; Visit Provider Anesthesiology
DX: M46.1 Sacroiliitis, not elsewhere classified
CPT/HCPCS: 64451; 64454; 64494; 64495

== ENCOUNTER 2022-06-09 10:27 | Outpatient (CLI) | payer MEDICARE, SELFPAY ==
[2022-06-09] VITALS (17 sets, daily range): BP systolic 119–160; BP diastolic 60–91; PULSE 47–62; RESP 13–20; TEMP 36.2; O2SAT 96–99
--- NOTE | 2022-06-09 10:29 | DI.RAD.S_ITS ---
PROCEDURE: PAIN L/S MED/LAT N RFA BILAT INDICATIONS: SACROILIAC JOINT DYSFUCTION COMPARISON: None. FINDINGS: Fluoroscopic spot filming was performed to verify placement of spinal needles at the bilateral L5, S1, S2, and S3 levels, as labeled on the films. Appropriate locations of the needle tips was confirmed by injection of iodinated contrast. IMPRESSION: Intraprocedural examination demonstrates appropriate needle position. Approved by: Sourav Herron M.D. on 06/09/2022 at 15:44
[2022-06-09] MEDS: BUPIVACAINE 0.5% (PF) 30 ML VIAL 5 ML INJ (11:26)
[2022-06-09] MEDS: DEXAMETHASONE 10 MG/ML VIAL INJ (11:27)
[2022-06-09] MEDS: LIDOCAINE 2% INJ SDV 5ML 5 ML INJ (11:27)
[2022-06-09] MEDS: MIDAZOLAM 2 MG/2 ML VIAL 3 MG IV (12:25)
--- NOTE | 2022-06-09 14:49 | P.PCN_ITS ---
Date/Time/Diagnoses Date of procedure: 06/09/22 Time of procedure: 11:00 Procedure Notes Physician: Scar Soto Total Fluoroscopy time (seconds): 41 Total sedation minutes: 63 Procedure in detail & Post-procedure care: Bilateral Sacral Frequency Ablation Indications: Patsy presents for treatment of SI joint dysfunction with low back and buttock pain. Preoperative diagnosis: Bilateral SI joint dysfunction Postoperative diagnosis: Same Focused Examination: Ax3 Mood and affect are normal Vital Signs: VSS ASA: 2 Consent: Following review of allergies and potential side effects/complications, including, but not necessarily limited to, infection, allergic reaction, local tissue breakdown, stroke, temporary or permanent nerve injury, paralysis, and possible , the patient indicated that they understood and agreed to proceed.? An informed consent document was signed by the patient, witnessed by a nurse and placed in the patient's chart.? Additionally, other treatment options including medications and physical therapy were reviewed with the patient. All questions were answered. Site was then marked. Position: Prone Monitoring: NIBP, Pulse oximetry, 3 lead EKG Needle used: 18 guage, 100 mm, 10 mm active tip Anesthesia: Local with IV sedation. After review of previous anesthetic history and IV conscious sedation, the patient was deemed safe to proceed with today's procedure with IV conscious sedation. IV sedation was accomplished with midazolam 3 mg administered by the RN after order by Dr. Soto. Sedation was titrated to patient comfort during the course of the procedure. Patient remained responsive to all verbal commands. Procedure: The patient was brought into the procedure room and positioned into the prone position. Skin was prepped with a Chloraprep solution, allowed to air dry, and then draped in sterile fashion.? The right L5/S1, 2, 3 posterior foramen were visually identified with fluoroscopy. Lidocaine 1% was used to anesthetize the skin over each target destination with a 25ga needle. An 18 ga, 100 mm RFA needle with a 10 mm active tip was advanced to the superolateral margin of the S1 foramen. Three more RFA needles were placed along the lateral border of the S2 and S3 foramen and were spaced approximately 1-1.5 cm apart for a total of 4 RFA needles. No paresthesias were noted. The stylet was removed and the radiofrequency probe was inserted through the cannula. Each level was individually tested. The impedance was between 300 and 800 ohms at all levels.? Sensory stimulation up to 2V elicited pain in the low back/buttock consistent with patient's normal location of pain. There was no stimulation of the legs or groin. After negative aspiration, 1ml of 2% lidocaine was injected at each of the levels. A strip lesion was created using bipolar radiofrequency denervation between the 1st and 2nd RFA needles and the 3rd and 4th RFA needles. The burn was carried out using 80 degrees Celsius for 90 seconds. The needles were then repositioned and a second ablation was performed using bipolar radiofrequency with the 2nd and 3rd RFA needles at 80 degrees Celsius for 90 seconds. After ablation, a mixture of 10 mg dexamethasone with 0.25% bupivacaine 7 mL was injected in equal amounts among the sites (1 mL per site). Next, the left L5/S1, 2, 3 posterior foramen were visually identified with fluoroscopy. Lidocaine 1% was used to anesthetize the skin over each target destination with a 25ga needle. An 18 ga, 100 mm RFA needle with a 10 mm active tip was advanced to the superolateral margin of the S1 foramen. Three more RFA needles were placed along the lateral border of the S2 and S3 foramen and were spaced approximately 1-1.5 cm apart for a total of 4 RFA needles. No paresthesias were noted. The stylet was removed and the radiofrequency probe was inserted through the cannula. Each level was individually tested. The impedance was between 300 and 800 ohms at all levels.? Sensory stimulation up to 2V elicited pain in the low back/buttock consistent with patient's normal location of pain. There was no stimulation of the legs or groin. After negative aspiration, 1ml of 2% lidocaine was injected at each of the levels. A strip lesion was created using bipolar radiofrequency denervation between the 1st and 2nd RFA needles and the 3rd and 4th RFA needles. The burn was carried out using 80 degrees Celsius for 90 seconds. The needles were then repositioned and a second ablation was performed using bipolar radiofrequency with the 2nd and 3rd RFA needles at 80 degrees Celsius for 90 seconds. After ablation, a mixture of 10 mg dexamethasone with 0.25% bupivacaine 7 mL was injected in equal amounts among the sites (1 mL per site). At the end of the procedure the needles were withdrawn and Band-Aids were applied for a dressing. Post Procedure: Patient was taken to the recovery and monitored. The patient was provided a Pain Log to continue to record the patient's response to the target- specific procedure prior to the patient's follow-up visit with the referring physician. Patient was stable upon discharge. Detailed post procedure instructions were provided. Patient was asked to call in the event of worsening pain, fever, weakness, numbness or bladder or bowel incontinence. Complications: None
== END 2022-06-09 12:40 | disposition home or self-care (01) ==
LOC: RAD 10:28
PROVIDERS: PCP Family Medicine; Referring Provider Anesthesiology; Visit Provider Anesthesiology
DX: M53.3 Sacrococcygeal disorders, not elsewhere classified (principal); M54.50 Low back pain, unspecified
CPT/HCPCS: 64635; 64636; 99152; 99153; J1100; J2250

== ENCOUNTER 2022-06-23 10:30 | Outpatient (RCR) | payer MEDICARE, SELFPAY ==
--- NOTE | 2022-03-12 14:07 | PT.OIE ---
Current Diagnoses Unilateral primary osteoarthritis, right hip (03/12/22) Trochanteric bursitis, right hip (03/12/22) Difficulty in walking, not elsewhere classified (03/12/22) Abnormal posture (03/12/22) Weakness (03/12/22) Past Medical History (Last Reviewed 02/18/22 @ 18:20 by Ange Castaneda DO) Asthmatic bronchitis Chronic bilateral low back pain with bilateral sciatica Depression GERD (gastroesophageal reflux disease) Past Surgical History (Last Updated 03/12/22 @ 13:49 by Scar Soto MD) H/O eye surgery (02/05/1958) H/O total hysterectomy (05/06/00) History of cholecystectomy (02/05/98) History of knee surgery (05/05/10) 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) Hx of spinal fusion (10/09/18) Hx of tonsillectomy (07/27/1967) Visit Care Team Role Provider Type Ellie Fountain PA-C Family Provider Physician Ball Shagger Primary Care Provider Specialty: Medical Address: [address] [place] [address], [id number] Email: [email or web address] Eliazar Marshall MD Attending Provider Non-Staff Referring Provider Specialty: Orthopedic Surgery Address: [address] [place] [address], [id number] Email: Physical Therapy Initial Evaluation PT-OP-A Visit Information Start: 03/11/22 13:38 Freq: Status: Active Protocol: Document 03/12/22 09:53 [facility] (Rec: 03/12/22 10:32 [facility] [id number]) Out-Patient Physical Therapy Visit Information Visit Information Visit Type Initial Evaluation Visit Note 03/17 Visit Start Time 09:51 Visit Number 1 Number of COLLATOR Visits 0 PT-OP-B Current Condition Start: 03/11/22 13:38 Freq: Status: Active Protocol: Document 03/12/22 09:53 [facility] (Rec: 03/12/22 10:32 [facility] [id number]) Current Condition History of Current Condition Onset Date 2012 Current Complaints R hip pain History of Current Condition Pt fell and tore glute max & minimus in 2013 and possibly labrum. WHen it initially happened, RLE would let go and give out when walking, but the ortho didn't plan to do anything about it. That letting go happened for the first year. She has had buttocks pain that was on and off and when she had foot surgery and was in WC and R hip hurt a lot then. She also had a major back injury and has had mult back surgeries. She has MRI of hip today. She has had 2 steroid injections and the more recent one only helped for about a day. She has seen many pain specialists and sees a new one Wednesday. She has chronic back pain that does have different radiating patterns. Treatment Goals Patient/Caregiver Goals Get rid of pain in hip, improve walking-be able to do some short walks, improve balance PT-OP-C Subjective Start: 03/11/22 13:38 Freq: Status: Active Protocol: Document 03/12/22 09:53 [facility] (Rec: 03/12/22 10:32 [facility] [id number]) OP-PT Subjective Patient Comments Patient Comments This am was a really bad morning d/t LBP Patient Questionnaires Lower Extremity Functional Scale LEFS Score 25/80 OP-PT Pain Assessment Location R hip Pain Location Details lat and post hip Description Aching Frequency Constant Pain Aggravating Factors Standing,Sitting,Walking Other Pain Aggravating Factors laying on it Pain Alleviating Factors Heat,Lying Supine PT-OP-D Balance Start: 03/11/22 13:38 Freq: Status: Active Protocol: Document 03/12/22 09:53 [facility] (Rec: 03/12/22 10:32 [facility] [id number]) Balance Tests Ordoñez Balance Test Ordoñez Balance Test Score 33 Single Limb Standing Single Limb- Right can lift leg Single Limb- Left can lift leg PT-OP-F Manual Assessment Start: 03/11/22 13:38 Freq: Status: Active Protocol: Document 03/12/22 09:53 [facility] (Rec: 03/12/22 10:32 [facility] [id number]) Manual Assessments Soft Tissue Assessment Soft Tissue Mobility Assessment tightness: ITB, hip flexor, TFL, HS, glutes PT-OP-G Mobility & Gait Start: 03/11/22 13:38 Freq: Status: Active Protocol: Document 03/12/22 09:53 [facility] (Rec: 03/12/22 10:32 [facility] [id number]) OP Gait Assessment Comments Gait Comments Amb w/cane in L hand w/dec stance time on RLE and dec overall push off B PT-OP-J Posture/Palpation/Skin Start: 03/11/22 13:38 Freq: Status: Active Protocol: Document 03/12/22 09:53 [facility] (Rec: 03/12/22 10:32 [facility] [id number]) Posture Evaluation Comments Posture Comments inc kyphosis; fwd flexed at hip PT-OP-K Range of Motion Start: 03/11/22 13:38 Freq: Status: Active Protocol: Document 03/12/22 09:53 [facility] (Rec: 03/12/22 10:32 [facility] [id number]) Hip Goniometric Range of Motion Hip Right Active Flexion w/Knee Flexed 88 Abduction 21 Internal Rotation 12 External Rotation 21 Left Active Flexion w/Knee Flexed 105 Abduction 30 Internal Rotation 35 External Rotation 25 PT-OP-L Special Tests Start: 03/11/22 13:38 Freq: Status: Active Protocol: Document 03/12/22 09:53 [facility] (Rec: 03/12/22 10:32 [facility] [id number]) Special Tests Hip Special Tests Slump Test Results neg-HS tightness that doesn't inc w/cervical flex Straight Leg Raise Test Results R: 61; L:80 deg-HS tightness PT-OP-M Strength Start: 03/11/22 13:38 Freq: Status: Active Protocol: Document 03/12/22 09:53 [facility] (Rec: 03/12/22 10:32 [facility] [id number]) Hip Strength Hip Manual Muscle Testing Left Flexion (L2) 4- Good- Extension (S1) 3+ Fair+ Abduction 4 Good Adduction 4 Good External Rotation 3+ Fair+ Internal Rotation 5 Normal Right Flexion (L2) 3+ Fair+ Extension (S1) 3 Fair Abduction 2+ Poor+ Adduction 3+ Fair+ External Rotation 3+ Fair+ Internal Rotation 2+ Poor+ Comments pain R SI w/B ER Knee Strength Knee Manual Muscle Testing Right Flexion (S2) 4+ Good+ Extension (L3) 4+ Good+ Left Flexion (S2) 4+ Good+ Extension (L3) 4+ Good+ Ankle/Foot Strength Ankle and Foot Manual Muscle Testing Right Dorsiflexion (L4) 4 Good Plantarflexion (S1) 4 Good Left Dorsiflexion (L4) 4 Good Plantarflexion (S1) 4 Good Comments PF tested seated B PT-OP-R Modalities Start: 03/11/22 13:38 Freq: Status: Active Protocol: Document 03/12/22 09:53 [facility] (Rec: 03/12/22 10:32 [facility] [id number]) Hot Pack/Cold Pack Treatment Hot Pack Location LB & buttocks Patient Position Hooklying Treatment Duration (minutes) 15 PT-OP-T Assessment and Plan Start: 03/11/22 13:38 Freq: Status: Active Protocol: Document 03/12/22 09:53 [facility] (Rec: 03/12/22 10:32 [facility] [id number]) Physical Therapy Assessment Rehab Potential Rehabilitation Potential Good Evaluation Complexity Number of Personal Factors/Comorbidities 3 or More Number of Body Systems Impaired 4 or More Clinical Presentation at Evaluation Evolving Impairments Impairments Activity Tolerance,Balance, Functional Activities, Functional Mobility,Gait,Pain, Posture,ROM,Soft Tissue Mobility,Strength,Transfers Goals activities Short Term Goal (STG) Pt will b eable to sit as needed during day w/o inc R hip pain. STG Duration 05/05/22 Scientific Database Curator Goal (LTG) Pt will be able to go for short walks with AD w/o pain in hip greater than 3/10. LTG Duration 06/04/22 balance Impairment ORDOÑEZ Impairment 33/56 Short Term Goal (STG) Pt will imrpove ORDOÑEZ score to at least 36 to show pt is a safe amulator w/AD. STG Duration 04/22/22 Scientific Database Curator Goal (LTG) Pt will improve score to at least 46 to show safe ambular w/o AD and less likely to fall . LTG Duration 06/04/22 One Short Term Goal (STG) Pt will be indep w/HEP STG Duration 04/27/22 Scientific Database Curator Goal (LTG) Pt will show improved strength by inc of all MMT by at least 1 full grade to allow improved ability to mobilize. LTG Duration 06/04/22 Assessment Summary Assessment Pt presents for treatment of R hip pain that has been chronic since a fall in 2012 wehre she tore her glute max & minimus and possibly her labrum. it got worse when having to sit in w/c after foot surgery along w/her chronic back pain. Recent ortho told her he was confident it was trochanteric bursitis, but she is also under care of pain MDs, neurosurgeons, podiatry, and spinal orthopedic surgeons for other conditions. She has tenderness over bursa making this diagnosis liekly. She has significant weakness in glutes likely d/t history of tears. Pt would bneefit from skilled PT to work on gait, strength of LEs and core, ROM of R hip and dec pain and inc balance Physical Therapy Plan Frequency and Duration Frequency of Treatment 1-2x/wk Duration of treatment (weeks) 12 Plan of Care Start Date 03/12/22 Plan of Care End Date 06/04/22 Therapeutic Interventions Therapeutic Interventions Balance Training,Gait Training ,Home Exercise Program,Joint Mobilizations,Manual Therapy, Neuromuscular Re-education, Orthotic/Prosthetic Management ,Patient/Caregiver Education, Self-Care/Home Management,Soft Tissue Mobilization,Taping, Therapeutic Activities, Therapeutic Exercises Modalities Cold Pack/Ice Massage,Electric Stimulation,Hot Packs, Infrared Therapy,Ultrasound Next Visit Focus/Plan Next Note Type Treatment Note Next Visit Plan supine hip ER w/tband, piriformis stretch, supine hip abd, standing abd, reverse clamshell, manual to hip joint & hip flexors, glutes, ITB
--- NOTE | 2022-03-12 14:07 | PT.OPPOC ---
Physical, Occupational & Speech Therapy At [facility] Current Diagnoses Unilateral primary osteoarthritis, right hip (03/12/22) Trochanteric bursitis, right hip (03/12/22) Difficulty in walking, not elsewhere classified (03/12/22) Abnormal posture (03/12/22) Weakness (03/12/22) Visit Care Team Role Provider Type Ellie Fountain PA-C Family Provider Physician Commercial Banker Primary Care Provider Specialty: Medical Address: [address] [place] [address], [id number] Email: [email or web address] Steal Eliazar Marshall MD Attending Provider Non-Staff Referring Provider Specialty: Orthopedic Surgery Address: [address] [place] [address], [id number] Email: Plan Of Care PT-OP-T Assessment and Plan Start: 03/11/22 13:38 Freq: Status: Active Protocol: Document 03/12/22 09:53 [facility] (Rec: 03/12/22 10:32 [facility] [id number]) Physical Therapy Assessment Rehab Potential Rehabilitation Potential Good Evaluation Complexity Number of Personal Factors/Comorbidities 3 or More Number of Body Systems Impaired 4 or More Clinical Presentation at Evaluation Evolving Impairments Impairments Activity Tolerance,Balance, Functional Activities, Functional Mobility,Gait,Pain, Posture,ROM,Soft Tissue Mobility,Strength,Transfers Goals activities Short Term Goal (STG) Pt will b eable to sit as needed during day w/o inc R hip pain. STG Duration 05/05/22 Thermite Welder Goal (LTG) Pt will be able to go for short walks with AD w/o pain in hip greater than 3/10. LTG Duration 06/04/22 balance Impairment ORDOÑEZ Impairment 33/56 Short Term Goal (STG) Pt will imrpove ORDOÑEZ score to at least 36 to show pt is a safe amulator w/AD. STG Duration 04/22/22 Thermite Welder Goal (LTG) Pt will improve score to at least 46 to show safe ambular w/o AD and less likely to fall . LTG Duration 06/04/22 One Short Term Goal (STG) Pt will be indep w/HEP STG Duration 04/27/22 Mcc Goal (LTG) Pt will show improved strength by inc of all MMT by at least 1 full grade to allow improved ability to mobilize. LTG Duration 06/04/22 Assessment Summary Assessment Pt presents for treatment of R hip pain that has been chronic since a fall in 2012 wehre she tore her glute max & minimus and possibly her labrum. it got worse when having to sit in w/c after foot surgery along w/her chronic back pain. Recent ortho told her he was confident it was trochanteric bursitis, but she is also under care of pain MDs, neurosurgeons, podiatry, and spinal orthopedic surgeons for other conditions. She has tenderness over bursa making this diagnosis liekly. She has significant weakness in glutes likely d/t history of tears. Pt would bneefit from skilled PT to work on gait, strength of LEs and core, ROM of R hip and dec pain and inc balance Physical Therapy Plan Frequency and Duration Frequency of Treatment 1-2x/wk Duration of treatment (weeks) 12 Plan of Care Start Date 03/12/22 Plan of Care End Date 06/04/22 Therapeutic Interventions Therapeutic Interventions Balance Training,Gait Training ,Home Exercise Program,Joint Mobilizations,Manual Therapy, Neuromuscular Re-education, Orthotic/Prosthetic Management ,Patient/Caregiver Education, Self-Care/Home Management,Soft Tissue Mobilization,Taping, Therapeutic Activities, Therapeutic Exercises Modalities Cold Pack/Ice Massage,Electric Stimulation,Hot Packs, Infrared Therapy,Ultrasound Next Visit Focus/Plan Next Note Type Treatment Note Next Visit Plan supine hip ER w/tband, piriformis stretch, supine hip abd, standing abd, reverse clamshell, manual to hip joint & hip flexors, glutes, ITB Plan of Care Dates Plan of Care Start Date 03/12/22 Plan of Care End Date 06/04/22 Electronically Signed by: Debbie Beyer, PT 03/12/22 4940 If you are in agreement with this Plan of Care, please return a signed and dated copy. I have reviewed this Plan of Care and certify that the skilled therapy services above are required to meet the patient?s needs. Physician Signature Date Printed Name and Credentials Clinical Instructor Signature Printed Name and Credentials
--- NOTE | 2022-03-17 10:37 | PT.OTN ---
Current Diagnoses Unilateral primary osteoarthritis, right hip (03/17/22) Trochanteric bursitis, right hip (03/17/22) Difficulty in walking, not elsewhere classified (03/17/22) Abnormal posture (03/17/22) Weakness (03/17/22) Physical Therapy Treatment Note PT-OP-A Visit Information Start: 03/11/22 13:38 Freq: Status: Active Protocol: Document 03/17/22 09:56 [facility] (Rec: 03/17/22 10:37 [facility] [id number]) Out-Patient Physical Therapy Visit Information Visit Information Visit Type Treatment Note Visit Note 04/17 Visit Start Time 09:51 Visit Stop Time 10:30 Total Visit Minutes 39 Visit Number 2 Number of SCIENTIFIC RECRUITER Visits 0 PT-OP-B Current Condition Start: 03/11/22 13:38 Freq: Status: Active Protocol: Document 03/12/22 09:53 [facility] (Rec: 03/12/22 10:32 [facility] [id number]) Current Condition History of Current Condition Onset Date 2012 Current Complaints R hip pain History of Current Condition Pt fell and tore glute max & minimus in 2012 and possibly labrum. WHen it initially happened, RLE would let go and give out when walking, but the ortho didn't plan to do anything about it. That letting go happened for the first year. She has had buttocks pain that was on and off and when she had foot surgery and was in WC and R hip hurt a lot then. She also had a major back injury and has had mult back surgeries. She has MRI of hip today. She has had 2 steroid injections and the more recent one only helped for about a day. She has seen many pain specialists and sees a new one Wednesday. She has chronic back pain that does have different radiating patterns. Treatment Goals Patient/Caregiver Goals Get rid of pain in hip, improve walking-be able to do some short walks, improve balance PT-OP-C Subjective Start: 03/11/22 13:38 Freq: Status: Active Protocol: Document 03/17/22 09:56 [facility] (Rec: 03/17/22 10:37 [facility] [id number]) OP-PT Subjective Patient Comments Patient Comments Pt reports she got MRI of R hip and saw pain medicine MD and she was very happy with the visit. PT-OP-D Balance Start: 03/11/22 13:38 Freq: Status: Active Protocol: Document 03/12/22 09:53 [facility] (Rec: 03/12/22 10:32 [facility] [id number]) Balance Tests Ordoñez Balance Test Ordoñez Balance Test Score 33 Single Limb Standing Single Limb- Right can lift leg Single Limb- Left can lift leg PT-OP-F Manual Assessment Start: 03/11/22 13:38 Freq: Status: Active Protocol: Document 03/12/22 09:53 [facility] (Rec: 03/12/22 10:32 [facility] [id number]) Manual Assessments Soft Tissue Assessment Soft Tissue Mobility Assessment tightness: ITB, hip flexor, TFL, HS, glutes PT-OP-G Mobility & Gait Start: 03/11/22 13:38 Freq: Status: Active Protocol: Document 03/12/22 09:53 [facility] (Rec: 03/12/22 10:32 [facility] [id number]) OP Gait Assessment Comments Gait Comments Amb w/cane in L hand w/dec stance time on RLE and dec overall push off B PT-OP-J Posture/Palpation/Skin Start: 03/11/22 13:38 Freq: Status: Active Protocol: Document 03/12/22 09:53 [facility] (Rec: 03/12/22 10:32 [facility] [id number]) Posture Evaluation Comments Posture Comments inc kyphosis; fwd flexed at hip PT-OP-K Range of Motion Start: 03/11/22 13:38 Freq: Status: Active Protocol: Document 03/12/22 09:53 [facility] (Rec: 03/12/22 10:32 [facility] [id number]) Hip Goniometric Range of Motion Hip Right Active Flexion w/Knee Flexed 88 Abduction 21 Internal Rotation 12 External Rotation 21 Left Active Flexion w/Knee Flexed 105 Abduction 30 Internal Rotation 35 External Rotation 25 PT-OP-L Special Tests Start: 03/11/22 13:38 Freq: Status: Active Protocol: Document 03/12/22 09:53 [facility] (Rec: 03/12/22 10:32 [facility] [id number]) Special Tests Hip Special Tests Slump Test Results neg-HS tightness that doesn't inc w/cervical flex Straight Leg Raise Test Results R: 61; L:80 deg-HS tightness PT-OP-M Strength Start: 03/11/22 13:38 Freq: Status: Active Protocol: Document 03/12/22 09:53 [facility] (Rec: 03/12/22 10:32 [facility] [id number]) Hip Strength Hip Manual Muscle Testing Left Flexion (L2) 4- Good- Extension (S1) 3+ Fair+ Abduction 4 Good Adduction 4 Good External Rotation 3+ Fair+ Internal Rotation 5 Normal Right Flexion (L2) 3+ Fair+ Extension (S1) 3 Fair Abduction 2+ Poor+ Adduction 3+ Fair+ External Rotation 3+ Fair+ Internal Rotation 2+ Poor+ Comments pain R SI w/B ER Knee Strength Knee Manual Muscle Testing Right Flexion (S2) 4+ Good+ Extension (L3) 4+ Good+ Left Flexion (S2) 4+ Good+ Extension (L3) 4+ Good+ Ankle/Foot Strength Ankle and Foot Manual Muscle Testing Right Dorsiflexion (L4) 4 Good Plantarflexion (S1) 4 Good Left Dorsiflexion (L4) 4 Good Plantarflexion (S1) 4 Good Comments PF tested seated B PT-OP-Q Treatments Start: 03/11/22 13:38 Freq: Status: Active Protocol: Document 03/17/22 09:56 [facility] (Rec: 03/17/22 10:37 [facility] [id number]) Cardio Equipment Recumbent Stepper (Sci-Fit) Duration (Minutes) 5 Resistance 1 Seat Position 10 Gym Equipment Shuttle Recovery Unilateral Squats Details core engaged Resistance 25# Shuttle Recovery Platform Stable Reps/Time 2x10 Bilateral Squats Details core activation, ball between knees Resistance 50 Shuttle Recovery Platform Stable Reps/Time 15x2 Therapeutic Exercises Supine Exercises hip abd Side right Reps/Minutes 10 Comments cues for core stretch Supine Exercise Name piriformis Side bilateral Reps/Minutes 30 sec ea hip ER Side bilateral Equipment Used L3 Reps/Minutes 15 Comments cues core Sidelying Exercises reverse clamshell Side right Reps/Minutes 10 PT-OP-R Modalities Start: 03/11/22 13:38 Freq: Status: Active Protocol: Document 03/17/22 09:56 [facility] (Rec: 03/17/22 10:37 [facility] [id number]) Ultrasound Therapy Treatment Greater trochanter right Treatment Duration (minutes) 8 Patient Position Sidelying Duty Cycle 50% PT-OP-T Assessment and Plan Start: 03/11/22 13:38 Freq: Status: Active Protocol: Document 03/17/22 09:56 [facility] (Rec: 03/17/22 10:37 [facility] [id number]) Physical Therapy Assessment Goals activities Short Term Goal (STG) Pt will b eable to sit as needed during day w/o inc R hip pain. STG Duration 05/05/22 Travel Journalist Goal (LTG) Pt will be able to go for short walks with AD w/o pain in hip greater than 3/10. LTG Duration 06/04/22 balance Impairment ORDOÑEZ Impairment 33/56 Short Term Goal (STG) Pt will imrpove ORDOÑEZ score to at least 36 to show pt is a safe amulator w/AD. STG Duration 04/22/22 Halfway Goal (LTG) Pt will improve score to at least 46 to show safe ambular w/o AD and less likely to fall . LTG Duration 06/04/22 One Impairment unable to reach overhead Short Term Goal (STG) Pt will be indep w/HEP STG Duration 04/27/22 Travel Journalist Goal (LTG) Pt will show improved strength by inc of all MMT by at least 1 full grade to allow improved ability to mobilize. LTG Duration 06/04/22 Assessment Summary Assessment Pt did well with exercises without pain when cued. She had to do smaller range w/R side leg press. Physical Therapy Plan Frequency and Duration Frequency of Treatment 1-2x/wk Duration of treatment (weeks) 12 Plan of Care Start Date 03/12/22 Plan of Care End Date 06/04/22 Next Visit Focus/Plan Next Note Type Treatment Note Next Visit Plan review exercises:supine hip ER w/tband, piriformis stretch, supine hip abd, standing abd, reverse clamshell, manual to hip joint & hip flexors, glutes, ITB; assess response to US
--- NOTE | 2022-03-19 13:21 | PT.OTN ---
Current Diagnoses Unilateral primary osteoarthritis, right hip (03/19/22) Trochanteric bursitis, right hip (03/19/22) Difficulty in walking, not elsewhere classified (03/19/22) Abnormal posture (03/19/22) Weakness (03/19/22) Physical Therapy Treatment Note PT-OP-A Visit Information Start: 03/11/22 13:38 Freq: Status: Active Protocol: Document 03/19/22 11:26 [facility] (Rec: 03/19/22 13:21 [facility] [id number]) Out-Patient Physical Therapy Visit Information Visit Information Visit Type Treatment Note Visit Note 05/15 Visit Start Time 11:22 Visit Stop Time 12:12 Total Visit Minutes 50 Visit Number 3 Number of CHOCOLATE FINISHER OPERATOR Visits 0 PT-OP-B Current Condition Start: 03/11/22 13:38 Freq: Status: Active Protocol: Document 03/12/22 09:53 [facility] (Rec: 03/12/22 10:32 [facility] [id number]) Current Condition History of Current Condition Onset Date 2012 Current Complaints R hip pain History of Current Condition Pt fell and tore glute max & minimus in 2012 and possibly labrum. WHen it initially happened, RLE would let go and give out when walking, but the ortho didn't plan to do anything about it. That letting go happened for the first year. She has had buttocks pain that was on and off and when she had foot surgery and was in WC and R hip hurt a lot then. She also had a major back injury and has had mult back surgeries. She has MRI of hip today. She has had 2 steroid injections and the more recent one only helped for about a day. She has seen many pain specialists and sees a new one Wednesday. She has chronic back pain that does have different radiating patterns. Treatment Goals Patient/Caregiver Goals Get rid of pain in hip, improve walking-be able to do some short walks, improve balance PT-OP-C Subjective Start: 03/11/22 13:38 Freq: Status: Active Protocol: Document 03/19/22 11:26 [facility] (Rec: 03/19/22 13:21 [facility] [id number]) OP-PT Subjective Patient Comments Patient Comments Pt reports she went to the gym yesterday and did the stepper , bicep curls, tricep ext, leg press, add & abd machines. After stepper, had a little groin pain PT-OP-D Balance Start: 03/11/22 13:38 Freq: Status: Active Protocol: Document 03/12/22 09:53 [facility] (Rec: 03/12/22 10:32 [facility] [id number]) Balance Tests Ordoñez Balance Test Ordoeñz Balance Test Score 33 Single Limb Standing Single Limb- Right can lift leg Single Limb- Left can lift leg PT-OP-F Manual Assessment Start: 03/11/22 13:38 Freq: Status: Active Protocol: Document 03/12/22 09:53 [facility] (Rec: 03/12/22 10:32 [facility] [id number]) Manual Assessments Soft Tissue Assessment Soft Tissue Mobility Assessment tightness: ITB, hip flexor, TFL, HS, glutes PT-OP-G Mobility & Gait Start: 03/11/22 13:38 Freq: Status: Active Protocol: Document 03/12/22 09:53 [facility] (Rec: 03/12/22 10:32 [facility] [id number]) OP Gait Assessment Comments Gait Comments Amb w/cane in L hand w/dec stance time on RLE and dec overall push off B PT-OP-J Posture/Palpation/Skin Start: 03/11/22 13:38 Freq: Status: Active Protocol: Document 03/12/22 09:53 [facility] (Rec: 03/12/22 10:32 [facility] [id number]) Posture Evaluation Comments Posture Comments inc kyphosis; fwd flexed at hip PT-OP-K Range of Motion Start: 03/11/22 13:38 Freq: Status: Active Protocol: Document 03/12/22 09:53 [facility] (Rec: 03/12/22 10:32 [facility] [id number]) Hip Goniometric Range of Motion Hip Right Active Flexion w/Knee Flexed 88 Abduction 21 Internal Rotation 12 External Rotation 21 Left Active Flexion w/Knee Flexed 105 Abduction 30 Internal Rotation 35 External Rotation 25 PT-OP-L Special Tests Start: 03/11/22 13:38 Freq: Status: Active Protocol: Document 03/12/22 09:53 [facility] (Rec: 03/12/22 10:32 [facility] [id number]) Special Tests Hip Special Tests Slump Test Results neg-HS tightness that doesn't inc w/cervical flex Straight Leg Raise Test Results R: 61; L:80 deg-HS tightness PT-OP-M Strength Start: 03/11/22 13:38 Freq: Status: Active Protocol: Document 03/12/22 09:53 [facility] (Rec: 03/12/22 10:32 [facility] [id number]) Hip Strength Hip Manual Muscle Testing Left Flexion (L2) 4- Good- Extension (S1) 3+ Fair+ Abduction 4 Good Adduction 4 Good External Rotation 3+ Fair+ Internal Rotation 5 Normal Right Flexion (L2) 3+ Fair+ Extension (S1) 3 Fair Abduction 2+ Poor+ Adduction 3+ Fair+ External Rotation 3+ Fair+ Internal Rotation 2+ Poor+ Comments pain R SI w/B ER Knee Strength Knee Manual Muscle Testing Right Flexion (S2) 4+ Good+ Extension (L3) 4+ Good+ Left Flexion (S2) 4+ Good+ Extension (L3) 4+ Good+ Ankle/Foot Strength Ankle and Foot Manual Muscle Testing Right Dorsiflexion (L4) 4 Good Plantarflexion (S1) 4 Good Left Dorsiflexion (L4) 4 Good Plantarflexion (S1) 4 Good Comments PF tested seated B PT-OP-Q Treatments Start: 03/11/22 13:38 Freq: Status: Active Protocol: Document 03/19/22 11:26 [facility] (Rec: 03/19/22 13:21 [facility] [id number]) Cardio Equipment Recumbent Stepper (Sci-Fit) Duration (Minutes) 5 Resistance 1 Seat Position 10 Therapeutic Exercises Standing Exercises hip abd Side bilateral Reps/Minutes 15 Manual Therapy Treatment Soft Tissue Mobilization ITB Body Location R Mobilization Type Rolling,Strumming Intensity/Depth Moderate Body Position Sidelying glutes Body Location R glutes throughout & piriformis Mobilization Type Rolling,Strumming,Sustained Pressure Intensity/Depth Moderate Body Position Sidelying PT-OP-R Modalities Start: 03/11/22 13:38 Freq: Status: Active Protocol: Document 03/19/22 11:26 [facility] (Rec: 03/19/22 13:21 [facility] [id number]) Hot Pack/Cold Pack Treatment Cold Pack Location R hip Patient Position Sidelying Treatment Duration (minutes) 10 Ultrasound Therapy Treatment Greater trochanter right Treatment Duration (minutes) 8 Patient Position Sidelying Duty Cycle 50% PT-OP-T Assessment and Plan Start: 03/11/22 13:38 Freq: Status: Active Protocol: Document 03/19/22 11:26 [facility] (Rec: 03/19/22 13:21 [facility] [id number]) Physical Therapy Assessment Goals activities Short Term Goal (STG) Pt will b eable to sit as needed during day w/o inc R hip pain. STG Duration 05/05/22 Poly Area Supervisor Goal (LTG) Pt will be able to go for short walks with AD w/o pain in hip greater than 3/10. LTG Duration 06/04/22 balance Impairment ORDOÑEZ Impairment 33/56 Short Term Goal (STG) Pt will imrpove ORDOÑEZ score to at least 36 to show pt is a safe amulator w/AD. STG Duration 04/22/22 Usp Goal (LTG) Pt will improve score to at least 46 to show safe ambular w/o AD and less likely to fall . LTG Duration 06/04/22 One Impairment unable to reach overhead Short Term Goal (STG) Pt will be indep w/HEP STG Duration 04/27/22 Usp Goal (LTG) Pt will show improved strength by inc of all MMT by at least 1 full grade to allow improved ability to mobilize. LTG Duration 06/04/22 Assessment Summary Assessment Pt did well with new standing abd exercise but did note some dissocmofrt by last rep. Pt reports relief w/manual treatment. Physical Therapy Plan Frequency and Duration Frequency of Treatment 1-2x/wk Duration of treatment (weeks) 12 Plan of Care Start Date 03/12/22 Plan of Care End Date 06/04/22 Next Visit Focus/Plan Next Note Type Treatment Note Next Visit Plan cont to wokr hip abd strength and rotation strength, manual to hip jt and hip flexors, glutes, iTB, US
--- NOTE | 2022-03-24 10:59 | PT.OTN ---
Current Diagnoses Unilateral primary osteoarthritis, right hip (03/24/22) Trochanteric bursitis, right hip (03/24/22) Difficulty in walking, not elsewhere classified (03/24/22) Abnormal posture (03/24/22) Weakness (03/24/22) Physical Therapy Treatment Note PT-OP-A Visit Information Start: 03/11/22 13:38 Freq: Status: Active Protocol: Document 03/24/22 09:25 [facility] (Rec: 03/24/22 10:59 [facility] [id number]) Out-Patient Physical Therapy Visit Information Visit Information Visit Type Treatment Note Visit Note 06/15 Visit Start Time 09:51 Visit Stop Time 10:40 Total Visit Minutes 49 Visit Number 4 Number of STATE ARCHIVIST Visits 0 PT-OP-B Current Condition Start: 03/11/22 13:38 Freq: Status: Active Protocol: Document 03/12/22 09:53 [facility] (Rec: 03/12/22 10:32 [facility] [id number]) Current Condition History of Current Condition Onset Date 2012 Current Complaints R hip pain History of Current Condition Pt fell and tore glute max & minimus in 2012 and possibly labrum. WHen it initially happened, RLE would let go and give out when walking, but the ortho didn't plan to do anything about it. That letting go happened for the first year. She has had buttocks pain that was on and off and when she had foot surgery and was in WC and R hip hurt a lot then. She also had a major back injury and has had mult back surgeries. She has MRI of hip today. She has had 2 steroid injections and the more recent one only helped for about a day. She has seen many pain specialists and sees a new one Wednesday. She has chronic back pain that does have different radiating patterns. Treatment Goals Patient/Caregiver Goals Get rid of pain in hip, improve walking-be able to do some short walks, improve balance PT-OP-C Subjective Start: 03/11/22 13:38 Freq: Status: Active Protocol: Document 03/24/22 09:25 [facility] (Rec: 03/24/22 10:59 [facility] [id number]) OP-PT Subjective Patient Comments Patient Comments Pt notes she is still waiting for injection. R lat glute is sore PT-OP-D Balance Start: 03/11/22 13:38 Freq: Status: Active Protocol: Document 03/12/22 09:53 [facility] (Rec: 03/12/22 10:32 [facility] [id number]) Balance Tests Ordoñez Balance Test Ordoñez Balance Test Score 33 Single Limb Standing Single Limb- Right can lift leg Single Limb- Left can lift leg PT-OP-F Manual Assessment Start: 03/11/22 13:38 Freq: Status: Active Protocol: Document 03/12/22 09:53 [facility] (Rec: 03/12/22 10:32 [facility] [id number]) Manual Assessments Soft Tissue Assessment Soft Tissue Mobility Assessment tightness: ITB, hip flexor, TFL, HS, glutes PT-OP-G Mobility & Gait Start: 03/11/22 13:38 Freq: Status: Active Protocol: Document 03/12/22 09:53 [facility] (Rec: 03/12/22 10:32 [facility] [id number]) OP Gait Assessment Comments Gait Comments Amb w/cane in L hand w/dec stance time on RLE and dec overall push off B PT-OP-J Posture/Palpation/Skin Start: 03/11/22 13:38 Freq: Status: Active Protocol: Document 03/12/22 09:53 [facility] (Rec: 03/12/22 10:32 [facility] [id number]) Posture Evaluation Comments Posture Comments inc kyphosis; fwd flexed at hip PT-OP-K Range of Motion Start: 03/11/22 13:38 Freq: Status: Active Protocol: Document 03/12/22 09:53 [facility] (Rec: 03/12/22 10:32 [facility] [id number]) Hip Goniometric Range of Motion Hip Right Active Flexion w/Knee Flexed 88 Abduction 21 Internal Rotation 12 External Rotation 21 Left Active Flexion w/Knee Flexed 105 Abduction 30 Internal Rotation 35 External Rotation 25 PT-OP-L Special Tests Start: 03/11/22 13:38 Freq: Status: Active Protocol: Document 03/12/22 09:53 [facility] (Rec: 03/12/22 10:32 [facility] [id number]) Special Tests Hip Special Tests Slump Test Results neg-HS tightness that doesn't inc w/cervical flex Straight Leg Raise Test Results R: 61; L:80 deg-HS tightness PT-OP-M Strength Start: 03/11/22 13:38 Freq: Status: Active Protocol: Document 03/12/22 09:53 [facility] (Rec: 03/12/22 10:32 [facility] [id number]) Hip Strength Hip Manual Muscle Testing Left Flexion (L2) 4- Good- Extension (S1) 3+ Fair+ Abduction 4 Good Adduction 4 Good External Rotation 3+ Fair+ Internal Rotation 5 Normal Right Flexion (L2) 3+ Fair+ Extension (S1) 3 Fair Abduction 2+ Poor+ Adduction 3+ Fair+ External Rotation 3+ Fair+ Internal Rotation 2+ Poor+ Comments pain R SI w/B ER Knee Strength Knee Manual Muscle Testing Right Flexion (S2) 4+ Good+ Extension (L3) 4+ Good+ Left Flexion (S2) 4+ Good+ Extension (L3) 4+ Good+ Ankle/Foot Strength Ankle and Foot Manual Muscle Testing Right Dorsiflexion (L4) 4 Good Plantarflexion (S1) 4 Good Left Dorsiflexion (L4) 4 Good Plantarflexion (S1) 4 Good Comments PF tested seated B PT-OP-Q Treatments Start: 03/11/22 13:38 Freq: Status: Active Protocol: Document 03/24/22 09:25 [facility] (Rec: 03/24/22 10:59 [facility] [id number]) Therapeutic Exercises Supine Exercises hip abd Side right Reps/Minutes 2x10 Comments cues for core Standing Exercises sidesteps Side bilateral Reps/Minutes 20ft hip abd Side bilateral Reps/Minutes 12 Manual Therapy Treatment Soft Tissue Mobilization adductors Body Location R Mobilization Type Rolling Intensity/Depth Moderate Body Position Hooklying Comments w/ER ITB Body Location R Mobilization Type Rolling,Strumming Intensity/Depth Moderate Body Position Sidelying glutes Body Location R glutes throughout & piriformis Mobilization Type Rolling,Strumming,Sustained Pressure Intensity/Depth Moderate Body Position Sidelying Joint Mobilizations hip Joint er FM R Body Position Hooklying PT-OP-R Modalities Start: 03/11/22 13:38 Freq: Status: Active Protocol: Document 03/24/22 09:25 [facility] (Rec: 03/24/22 10:59 [facility] [id number]) Hot Pack/Cold Pack Treatment Cold Pack Location R hip Patient Position Sidelying Treatment Duration (minutes) 10 Ultrasound Therapy Treatment Greater trochanter right Treatment Duration (minutes) 8 Patient Position Sidelying Duty Cycle 50% PT-OP-T Assessment and Plan Start: 03/11/22 13:38 Freq: Status: Active Protocol: Document 03/24/22 09:25 [facility] (Rec: 03/24/22 10:59 [facility] [id number]) Physical Therapy Assessment Goals activities Short Term Goal (STG) Pt will b eable to sit as needed during day w/o inc R hip pain. STG Duration 05/05/22 Machine Applicator Cementer Goal (LTG) Pt will be able to go for short walks with AD w/o pain in hip greater than 3/10. LTG Duration 06/04/22 balance Impairment ORDOÑEZ Impairment 33/56 Short Term Goal (STG) Pt will imrpove ORDOÑEZ score to at least 36 to show pt is a safe amulator w/AD. STG Duration 04/22/22 Care Home Goal (LTG) Pt will improve score to at least 46 to show safe ambular w/o AD and less likely to fall . LTG Duration 06/04/22 One Impairment unable to reach overhead Short Term Goal (STG) Pt will be indep w/HEP STG Duration 04/27/22 Care Home Goal (LTG) Pt will show improved strength by inc of all MMT by at least 1 full grade to allow improved ability to mobilize. LTG Duration 06/04/22 Assessment Summary Assessment PT had improved ER w/manual treatment and reports feeling hip feel looser w/manual. She did well with exercises but does report soreness in lat glute region. Physical Therapy Plan Frequency and Duration Frequency of Treatment 1-2x/wk Duration of treatment (weeks) 12 Plan of Care Start Date 03/12/22 Plan of Care End Date 06/04/22 Next Visit Focus/Plan Next Note Type Treatment Note Next Visit Plan cont to wokr hip abd strength and rotation strength, manual to hip jt and hip flexors, glutes, iTB, US
--- NOTE | 2022-03-31 16:32 | PT.OTN ---
Current Diagnoses Unilateral primary osteoarthritis, right hip (03/31/22) Trochanteric bursitis, right hip (03/31/22) Difficulty in walking, not elsewhere classified (03/31/22) Abnormal posture (03/31/22) Weakness (03/31/22) Physical Therapy Treatment Note PT-OP-A Visit Information Start: 03/11/22 13:38 Freq: Status: Active Protocol: Document 03/31/22 09:51 [facility] (Rec: 03/31/22 10:32 [facility] [id number]) Out-Patient Physical Therapy Visit Information Visit Information Visit Type Treatment Note Visit Start Time 09:50 Visit Stop Time 10:30 Total Visit Minutes 40 Visit Number 5 Number of REGISTERED NURSE MATERNAL CHILD Visits 0 PT-OP-B Current Condition Start: 03/11/22 13:38 Freq: Status: Active Protocol: Document 03/12/22 09:53 [facility] (Rec: 03/12/22 10:32 [facility] [id number]) Current Condition History of Current Condition Onset Date 2012 Current Complaints R hip pain History of Current Condition Pt fell and tore glute max & minimus in 2012 and possibly labrum. WHen it initially happened, RLE would let go and give out when walking, but the ortho didn't plan to do anything about it. That letting go happened for the first year. She has had buttocks pain that was on and off and when she had foot surgery and was in WC and R hip hurt a lot then. She also had a major back injury and has had mult back surgeries. She has MRI of hip today. She has had 2 steroid injections and the more recent one only helped for about a day. She has seen many pain specialists and sees a new one Wednesday. She has chronic back pain that does have different radiating patterns. Treatment Goals Patient/Caregiver Goals Get rid of pain in hip, improve walking-be able to do some short walks, improve balance PT-OP-C Subjective Start: 03/11/22 13:38 Freq: Status: Active Protocol: Document 03/31/22 09:51 [facility] (Rec: 03/31/22 10:32 [facility] [id number]) OP-PT Subjective Patient Comments Patient Comments pt reports she feels the ultrasound has been the ayaz effective so far with her treatments. She notes it is difficult to sleep at night. The SI joint first injection for her Rhizomitomy is this . PT-OP-D Balance Start: 03/11/22 13:38 Freq: Status: Active Protocol: Document 03/12/22 09:53 [facility] (Rec: 03/12/22 10:32 [facility] [id number]) Balance Tests Valerio Balance Test Valerio Balance Test Score 33 Single Limb Standing Single Limb- Right can lift leg Single Limb- Left can lift leg PT-OP-F Manual Assessment Start: 03/11/22 13:38 Freq: Status: Active Protocol: Document 03/12/22 09:53 [facility] (Rec: 03/12/22 10:32 [facility] [id number]) Manual Assessments Soft Tissue Assessment Soft Tissue Mobility Assessment tightness: ITB, hip flexor, TFL, HS, glutes PT-OP-G Mobility & Gait Start: 03/11/22 13:38 Freq: Status: Active Protocol: Document 03/12/22 09:53 [facility] (Rec: 03/12/22 10:32 [facility] [id number]) OP Gait Assessment Comments Gait Comments Amb w/cane in L hand w/dec stance time on RLE and dec overall push off B PT-OP-J Posture/Palpation/Skin Start: 03/11/22 13:38 Freq: Status: Active Protocol: Document 03/12/22 09:53 [facility] (Rec: 03/12/22 10:32 [facility] [id number]) Posture Evaluation Comments Posture Comments inc kyphosis; fwd flexed at hip PT-OP-K Range of Motion Start: 03/11/22 13:38 Freq: Status: Active Protocol: Document 03/12/22 09:53 [facility] (Rec: 03/12/22 10:32 [facility] [id number]) Hip Goniometric Range of Motion Hip Right Active Flexion w/Knee Flexed 88 Abduction 21 Internal Rotation 12 External Rotation 21 Left Active Flexion w/Knee Flexed 105 Abduction 30 Internal Rotation 35 External Rotation 25 PT-OP-L Special Tests Start: 03/11/22 13:38 Freq: Status: Active Protocol: Document 03/12/22 09:53 [facility] (Rec: 03/12/22 10:32 [facility] [id number]) Special Tests Hip Special Tests Slump Test Results neg-HS tightness that doesn't inc w/cervical flex Straight Leg Raise Test Results R: 61; L:80 deg-HS tightness PT-OP-M Strength Start: 03/11/22 13:38 Freq: Status: Active Protocol: Document 03/12/22 09:53 [facility] (Rec: 03/12/22 10:32 [facility] [id number]) Hip Strength Hip Manual Muscle Testing Left Flexion (L2) 4- Good- Extension (S1) 3+ Fair+ Abduction 4 Good Adduction 4 Good External Rotation 3+ Fair+ Internal Rotation 5 Normal Right Flexion (L2) 3+ Fair+ Extension (S1) 3 Fair Abduction 2+ Poor+ Adduction 3+ Fair+ External Rotation 3+ Fair+ Internal Rotation 2+ Poor+ Comments pain R SI w/B ER Knee Strength Knee Manual Muscle Testing Right Flexion (S2) 4+ Good+ Extension (L3) 4+ Good+ Left Flexion (S2) 4+ Good+ Extension (L3) 4+ Good+ Ankle/Foot Strength Ankle and Foot Manual Muscle Testing Right Dorsiflexion (L4) 4 Good Plantarflexion (S1) 4 Good Left Dorsiflexion (L4) 4 Good Plantarflexion (S1) 4 Good Comments PF tested seated B PT-OP-Q Treatments Start: 03/11/22 13:38 Freq: Status: Active Protocol: Document 03/31/22 09:50 [facility] (Rec: 03/31/22 16:32 [facility] [id number]) Cardio Equipment Recumbent Stepper (Sci-Fit) Duration (Minutes) 5 Resistance 1 Seat Position 10 Manual Therapy Treatment Soft Tissue Mobilization ITB Body Location R Mobilization Type Rolling,Strumming Intensity/Depth Moderate Body Position Sidelying glutes Body Location R glutes throughout & piriformis Mobilization Type Rolling,Strumming,Sustained Pressure Intensity/Depth Moderate Body Position Sidelying PT-OP-R Modalities Start: 03/11/22 13:38 Freq: Status: Active Protocol: Document 03/31/22 09:50 [facility] (Rec: 03/31/22 16:32 [facility] [id number]) Ultrasound Therapy Treatment Greater trochanter right Treatment Duration (minutes) 8 Patient Position Sidelying Duty Cycle 50% PT-OP-T Assessment and Plan Start: 03/11/22 13:38 Freq: Status: Active Protocol: Document 03/31/22 09:50 [facility] (Rec: 03/31/22 16:32 [facility] [id number]) Physical Therapy Assessment Assessment Summary Assessment Pt notes she had good relief with manual therapy work. She is scheduled for the first part of her Rhizotomy injection this Physical Therapy Plan Frequency and Duration Frequency of Treatment 1-2x/wk Duration of treatment (weeks) 12 Plan of Care Start Date 03/12/22 Plan of Care End Date 06/04/22 Therapeutic Interventions Therapeutic Interventions Balance Training,Gait Training ,Home Exercise Program,Joint Mobilizations,Manual Therapy, Neuromuscular Re-education, Orthotic/Prosthetic Management ,Patient/Caregiver Education, Self-Care/Home Management,Soft Tissue Mobilization,Taping, Therapeutic Activities, Therapeutic Exercises Modalities Cold Pack/Ice Massage,Electric Stimulation,Hot Packs, Infrared Therapy,Ultrasound Next Visit Focus/Plan Next Note Type Treatment Note Next Visit Plan cont to wokr hip abd strength and rotation strength, manual to hip jt and hip flexors, glutes, iTB, US
--- NOTE | 2022-04-02 10:37 | PT.OTN ---
Current Diagnoses Unilateral primary osteoarthritis, right hip (04/02/22) Trochanteric bursitis, right hip (04/02/22) Difficulty in walking, not elsewhere classified (04/02/22) Abnormal posture (04/02/22) Weakness (04/02/22) Physical Therapy Treatment Note PT-OP-A Visit Information Start: 03/11/22 13:38 Freq: Status: Active Protocol: Document 04/02/22 09:29 [facility] (Rec: 04/02/22 10:37 [facility] [id number]) Out-Patient Physical Therapy Visit Information Visit Information Visit Type Treatment Note Visit Start Time 09:52 Visit Stop Time 10:40 Total Visit Minutes 48 Visit Number 6 Number of ELECTROMATIC TYPIST Visits 0 PT-OP-B Current Condition Start: 03/11/22 13:38 Freq: Status: Active Protocol: Document 03/12/22 09:53 [facility] (Rec: 03/12/22 10:32 [facility] [id number]) Current Condition History of Current Condition Onset Date 2012 Current Complaints R hip pain History of Current Condition Pt fell and tore glute max & minimus in 2012 and possibly labrum. WHen it initially happened, RLE would let go and give out when walking, but the ortho didn't plan to do anything about it. That letting go happened for the first year. She has had buttocks pain that was on and off and when she had foot surgery and was in WC and R hip hurt a lot then. She also had a major back injury and has had mult back surgeries. She has MRI of hip today. She has had 2 steroid injections and the more recent one only helped for about a day. She has seen many pain specialists and sees a new one Wednesday. She has chronic back pain that does have different radiating patterns. Treatment Goals Patient/Caregiver Goals Get rid of pain in hip, improve walking-be able to do some short walks, improve balance PT-OP-C Subjective Start: 03/11/22 13:38 Freq: Status: Active Protocol: Document 04/02/22 09:29 [facility] (Rec: 04/02/22 10:37 [facility] [id number]) OP-PT Subjective Patient Comments Patient Comments pt reports she fell off her bed when sitting at the edge the other day and hit her hand and L hip. PT-OP-D Balance Start: 03/11/22 13:38 Freq: Status: Active Protocol: Document 03/12/22 09:53 [facility] (Rec: 03/12/22 10:32 [facility] [id number]) Balance Tests Ordoñez Balance Test Ordoñez Balance Test Score 33 Single Limb Standing Single Limb- Right can lift leg Single Limb- Left can lift leg PT-OP-F Manual Assessment Start: 03/11/22 13:38 Freq: Status: Active Protocol: Document 03/12/22 09:53 [facility] (Rec: 03/12/22 10:32 [facility] [id number]) Manual Assessments Soft Tissue Assessment Soft Tissue Mobility Assessment tightness: ITB, hip flexor, TFL, HS, glutes PT-OP-G Mobility & Gait Start: 03/11/22 13:38 Freq: Status: Active Protocol: Document 03/12/22 09:53 [facility] (Rec: 03/12/22 10:32 [facility] [id number]) OP Gait Assessment Comments Gait Comments Amb w/cane in L hand w/dec stance time on RLE and dec overall push off B PT-OP-J Posture/Palpation/Skin Start: 03/11/22 13:38 Freq: Status: Active Protocol: Document 03/12/22 09:53 [facility] (Rec: 03/12/22 10:32 [facility] [id number]) Posture Evaluation Comments Posture Comments inc kyphosis; fwd flexed at hip PT-OP-K Range of Motion Start: 03/11/22 13:38 Freq: Status: Active Protocol: Document 03/12/22 09:53 [facility] (Rec: 03/12/22 10:32 [facility] [id number]) Hip Goniometric Range of Motion Hip Right Active Flexion w/Knee Flexed 88 Abduction 21 Internal Rotation 12 External Rotation 21 Left Active Flexion w/Knee Flexed 105 Abduction 30 Internal Rotation 35 External Rotation 25 PT-OP-L Special Tests Start: 03/11/22 13:38 Freq: Status: Active Protocol: Document 03/12/22 09:53 [facility] (Rec: 03/12/22 10:32 [facility] [id number]) Special Tests Hip Special Tests Slump Test Results neg-HS tightness that doesn't inc w/cervical flex Straight Leg Raise Test Results R: 61; L:80 deg-HS tightness PT-OP-M Strength Start: 03/11/22 13:38 Freq: Status: Active Protocol: Document 03/12/22 09:53 [facility] (Rec: 03/12/22 10:32 [facility] [id number]) Hip Strength Hip Manual Muscle Testing Left Flexion (L2) 4- Good- Extension (S1) 3+ Fair+ Abduction 4 Good Adduction 4 Good External Rotation 3+ Fair+ Internal Rotation 5 Normal Right Flexion (L2) 3+ Fair+ Extension (S1) 3 Fair Abduction 2+ Poor+ Adduction 3+ Fair+ External Rotation 3+ Fair+ Internal Rotation 2+ Poor+ Comments pain R SI w/B ER Knee Strength Knee Manual Muscle Testing Right Flexion (S2) 4+ Good+ Extension (L3) 4+ Good+ Left Flexion (S2) 4+ Good+ Extension (L3) 4+ Good+ Ankle/Foot Strength Ankle and Foot Manual Muscle Testing Right Dorsiflexion (L4) 4 Good Plantarflexion (S1) 4 Good Left Dorsiflexion (L4) 4 Good Plantarflexion (S1) 4 Good Comments PF tested seated B PT-OP-Q Treatments Start: 03/11/22 13:38 Freq: Status: Active Protocol: Document 04/02/22 09:29 [facility] (Rec: 04/02/22 10:37 [facility] [id number]) Therapeutic Exercises Supine Exercises hip flex Supine Exercise Name R iso Side right Reps/Minutes 10 sec x6 Standing Exercises sidesteps Side bilateral Reps/Minutes 2x10ft B hip abd Side bilateral Reps/Minutes 12 Manual Therapy Treatment Soft Tissue Mobilization hip flexors Body Location R Mobilization Type Sustained Pressure Intensity/Depth Moderate glutes Body Location R glutes throughout & piriformis Mobilization Type Rolling,Strumming,Sustained Pressure Intensity/Depth Moderate Body Position Sidelying Joint Mobilizations hip Joint R inf FM PT-OP-R Modalities Start: 03/11/22 13:38 Freq: Status: Active Protocol: Document 04/02/22 09:29 [facility] (Rec: 04/02/22 10:37 [facility] [id number]) Hot Pack/Cold Pack Treatment Cold Pack Location R hip Patient Position Sidelying Treatment Duration (minutes) 10 Infrared Treatment Treatment R hip Duration (Minutes) 1 Program or Protocal chronic mm/tendon pain moderate Comments greater trochanter Ultrasound Therapy Treatment Greater trochanter right Treatment Duration (minutes) 8 Patient Position Sidelying Duty Cycle 50% Intensity Setting (w/cm2) 1.2 PT-OP-T Assessment and Plan Start: 03/11/22 13:38 Freq: Status: Active Protocol: Document 04/02/22 09:29 [facility] (Rec: 04/02/22 10:37 [facility] [id number]) Physical Therapy Assessment Goals activities Short Term Goal (STG) Pt will b eable to sit as needed during day w/o inc R hip pain. STG Duration 05/05/22 Publications Production Supervisor Goal (LTG) Pt will be able to go for short walks with AD w/o pain in hip greater than 3/10. LTG Duration 06/04/22 balance Impairment ORDOÑEZ Impairment 33/56 Short Term Goal (STG) Pt will imrpove ORDOÑEZ score to at least 36 to show pt is a safe amulator w/AD. STG Duration 04/22/22 Publications Production Supervisor Goal (LTG) Pt will improve score to at least 46 to show safe ambular w/o AD and less likely to fall . LTG Duration 06/04/22 One Impairment unable to reach overhead Short Term Goal (STG) Pt will be indep w/HEP STG Duration 04/27/22 Residential Goal (LTG) Pt will show improved strength by inc of all MMT by at least 1 full grade to allow improved ability to mobilize. LTG Duration 06/04/22 Assessment Summary Assessment pt reports relief with manual overall. She has less ITB tenderness notable today. Physical Therapy Plan Frequency and Duration Frequency of Treatment 1-2x/wk Duration of treatment (weeks) 12 Plan of Care Start Date 03/12/22 Plan of Care End Date 06/04/22 Next Visit Focus/Plan Next Note Type Treatment Note Next Visit Plan cont to wokr hip abd strength and rotation strength, manual to hip jt and hip flexors, glutes, iTB, US
--- NOTE | 2022-04-08 09:01 | PT.OTN ---
Current Diagnoses Unilateral primary osteoarthritis, right hip (04/08/22) Trochanteric bursitis, right hip (04/08/22) Difficulty in walking, not elsewhere classified (04/08/22) Abnormal posture (04/08/22) Weakness (04/08/22) Physical Therapy Treatment Note PT-OP-A Visit Information Start: 03/11/22 13:38 Freq: Status: Active Protocol: Document 04/08/22 08:14 [facility] (Rec: 04/08/22 09:01 [facility] [id number]) Out-Patient Physical Therapy Visit Information Visit Information Visit Type Treatment Note Visit Start Time 08:15 Visit Stop Time 09:05 Total Visit Minutes 50 Visit Number 7 Number of [place] Visits 0 PT-OP-B Current Condition Start: 03/11/22 13:38 Freq: Status: Active Protocol: Document 03/12/22 09:53 [facility] (Rec: 03/12/22 10:32 [facility] [id number]) Current Condition History of Current Condition Onset Date 2012 Current Complaints R hip pain History of Current Condition Pt fell and tore glute max & minimus in 2012 and possibly labrum. WHen it initially happened, RLE would let go and give out when walking, but the ortho didn't plan to do anything about it. That letting go happened for the first year. She has had buttocks pain that was on and off and when she had foot surgery and was in WC and R hip hurt a lot then. She also had a major back injury and has had mult back surgeries. She has MRI of hip today. She has had 2 steroid injections and the more recent one only helped for about a day. She has seen many pain specialists and sees a new one Wednesday. She has chronic back pain that does have different radiating patterns. Treatment Goals Patient/Caregiver Goals Get rid of pain in hip, improve walking-be able to do some short walks, improve balance PT-OP-C Subjective Start: 03/11/22 13:38 Freq: Status: Active Protocol: Document 04/08/22 08:14 [facility] (Rec: 04/08/22 09:01 [facility] [id number]) OP-PT Subjective Patient Comments Patient Comments Had gloria SI nerve block injections last week, had good pain relief for 1 week. Has chair lift at home so hasn't been doing stairs; could barely make it up stairs at dentist. Had stress test, sees branch account executive soon. Hasn' t been able to go to the pool due to wearing media monitor for 18 days. Has mild to moderate cardiac valve (not sure which valve) regurgitation. Is exhausted from medical appts every day. PT-OP-D Balance Start: 03/11/22 13:38 Freq: Status: Active Protocol: Document 03/12/22 09:53 [facility] (Rec: 03/12/22 10:32 [facility] [id number]) Balance Tests Ordoñez Balance Test Ordoñez Balance Test Score 33 Single Limb Standing Single Limb- Right can lift leg Single Limb- Left can lift leg PT-OP-F Manual Assessment Start: 03/11/22 13:38 Freq: Status: Active Protocol: Document 03/12/22 09:53 [facility] (Rec: 03/12/22 10:32 [facility] [id number]) Manual Assessments Soft Tissue Assessment Soft Tissue Mobility Assessment tightness: ITB, hip flexor, TFL, HS, glutes PT-OP-G Mobility & Gait Start: 03/11/22 13:38 Freq: Status: Active Protocol: Document 03/12/22 09:53 [facility] (Rec: 03/12/22 10:32 [facility] [id number]) OP Gait Assessment Comments Gait Comments Amb w/cane in L hand w/dec stance time on RLE and dec overall push off B PT-OP-J Posture/Palpation/Skin Start: 03/11/22 13:38 Freq: Status: Active Protocol: Document 03/12/22 09:53 [facility] (Rec: 03/12/22 10:32 [facility] [id number]) Posture Evaluation Comments Posture Comments inc kyphosis; fwd flexed at hip PT-OP-K Range of Motion Start: 03/11/22 13:38 Freq: Status: Active Protocol: Document 03/12/22 09:53 [facility] (Rec: 03/12/22 10:32 [facility] [id number]) Hip Goniometric Range of Motion Hip Right Active Flexion w/Knee Flexed 88 Abduction 21 Internal Rotation 12 External Rotation 21 Left Active Flexion w/Knee Flexed 105 Abduction 30 Internal Rotation 35 External Rotation 25 PT-OP-L Special Tests Start: 03/11/22 13:38 Freq: Status: Active Protocol: Document 03/12/22 09:53 [facility] (Rec: 03/12/22 10:32 [facility] [id number]) Special Tests Hip Special Tests Slump Test Results neg-HS tightness that doesn't inc w/cervical flex Straight Leg Raise Test Results R: 61; L:80 deg-HS tightness PT-OP-M Strength Start: 03/11/22 13:38 Freq: Status: Active Protocol: Document 03/12/22 09:53 [facility] (Rec: 03/12/22 10:32 [facility] [id number]) Hip Strength Hip Manual Muscle Testing Left Flexion (L2) 4- Good- Extension (S1) 3+ Fair+ Abduction 4 Good Adduction 4 Good External Rotation 3+ Fair+ Internal Rotation 5 Normal Right Flexion (L2) 3+ Fair+ Extension (S1) 3 Fair Abduction 2+ Poor+ Adduction 3+ Fair+ External Rotation 3+ Fair+ Internal Rotation 2+ Poor+ Comments pain R SI w/B ER Knee Strength Knee Manual Muscle Testing Right Flexion (S2) 4+ Good+ Extension (L3) 4+ Good+ Left Flexion (S2) 4+ Good+ Extension (L3) 4+ Good+ Ankle/Foot Strength Ankle and Foot Manual Muscle Testing Right Dorsiflexion (L4) 4 Good Plantarflexion (S1) 4 Good Left Dorsiflexion (L4) 4 Good Plantarflexion (S1) 4 Good Comments PF tested seated B PT-OP-Q Treatments Start: 03/11/22 13:38 Freq: Status: Active Protocol: Document 04/08/22 08:14 [facility] (Rec: 04/08/22 09:01 [facility] [id number]) Cardio Equipment Recumbent Stepper (Sci-Fit) Duration (Minutes) 5 Resistance 1 Seat Position 10 Gym Equipment Shuttle Recovery Bilateral Heel Raises Resistance 25 Shuttle Recovery Platform Stable Unilateral Squats Details core engaged Resistance 25# Shuttle Recovery Platform Stable Reps/Time 2x10 Bilateral Squats Details core activation, ball between knees Resistance 50 Shuttle Recovery Platform Stable Reps/Time 15x2 Therapeutic Exercises Supine Exercises hip flex Supine Exercise Name R iso Side right Reps/Minutes 10 sec x6 Manual Therapy Treatment Soft Tissue Mobilization hip flexors Body Location R Mobilization Type Sustained Pressure Intensity/Depth Moderate ITB Body Location R Mobilization Type Rolling,Strumming Intensity/Depth Moderate Body Position Sidelying glutes Body Location R glutes throughout & piriformis Mobilization Type Rolling,Strumming,Sustained Pressure Intensity/Depth Moderate Body Position Sidelying Self-Care/Home Management Treatment Education Other Education self massage with tennis ball supine with hip IR/ER and heelslide PT-OP-R Modalities Start: 03/11/22 13:38 Freq: Status: Active Protocol: Document 04/08/22 08:14 [facility] (Rec: 04/08/22 09:01 [facility] [id number]) Hot Pack/Cold Pack Treatment Cold Pack Location R hip Patient Position Sidelying Treatment Duration (minutes) 10 Ultrasound Therapy Treatment Greater trochanter right Treatment Duration (minutes) 8 Patient Position Sidelying Duty Cycle 50% Intensity Setting (w/cm2) 1.2 PT-OP-T Assessment and Plan Start: 03/11/22 13:38 Freq: Status: Active Protocol: Document 04/08/22 08:14 [facility] (Rec: 04/08/22 09:01 [facility] [id number]) Physical Therapy Assessment Goals activities Short Term Goal (STG) Pt will b eable to sit as needed during day w/o inc R hip pain. STG Duration 05/05/22 Mcfp Goal (LTG) Pt will be able to go for short walks with AD w/o pain in hip greater than 3/10. LTG Duration 06/04/22 balance Impairment ORDOÑEZ Impairment 33/56 Short Term Goal (STG) Pt will imrpove ORDOÑEZ score to at least 36 to show pt is a safe amulator w/AD. STG Duration 04/22/22 Mcfp Goal (LTG) Pt will improve score to at least 46 to show safe ambular w/o AD and less likely to fall . LTG Duration 06/04/22 One Impairment unable to reach overhead Short Term Goal (STG) Pt will be indep w/HEP STG Duration 04/27/22 Mcfp Goal (LTG) Pt will show improved strength by inc of all MMT by at least 1 full grade to allow improved ability to mobilize. LTG Duration 06/04/22 Assessment Summary Assessment Patient reported good relief with active right LE movement with tennis ball massage, ultrasound. Noting functional decline with stairs. Physical Therapy Plan Frequency and Duration Frequency of Treatment 1-2x/wk Duration of treatment (weeks) 12 Plan of Care Start Date 03/12/22 Plan of Care End Date 06/04/22 Therapeutic Interventions Therapeutic Interventions Balance Training,Gait Training ,Home Exercise Program,Joint Mobilizations,Manual Therapy, Neuromuscular Re-education, Orthotic/Prosthetic Management ,Patient/Caregiver Education, Self-Care/Home Management,Soft Tissue Mobilization,Taping, Therapeutic Activities, Therapeutic Exercises Modalities Cold Pack/Ice Massage,Electric Stimulation,Hot Packs, Infrared Therapy,Ultrasound Next Visit Focus/Plan Next Note Type Treatment Note Next Visit Plan Continue PT per POC for strengthening, flexibility, manual techniques, ultrasound.
--- NOTE | 2022-04-14 11:14 | PT.OTN ---
Current Diagnoses Unilateral primary osteoarthritis, right hip (04/14/22) Trochanteric bursitis, right hip (04/14/22) Difficulty in walking, not elsewhere classified (04/14/22) Abnormal posture (04/14/22) Weakness (04/14/22) Physical Therapy Treatment Note PT-OP-A Visit Information Start: 03/11/22 13:38 Freq: Status: Active Protocol: Document 04/14/22 09:02 [facility] (Rec: 04/14/22 09:47 [facility] [id number]) Out-Patient Physical Therapy Visit Information Visit Information Visit Type Treatment Note Visit Start Time 09:02 Visit Stop Time 09:55 Total Visit Minutes 53 Visit Number 9 Number of MEDICATION ADMINISTRATION PROFESSIONAL Visits 0 PT-OP-B Current Condition Start: 03/11/22 13:38 Freq: Status: Active Protocol: Document 03/12/22 09:53 [facility] (Rec: 03/12/22 10:32 [facility] [id number]) Current Condition History of Current Condition Onset Date 2012 Current Complaints R hip pain History of Current Condition Pt fell and tore glute max & minimus in 2012 and possibly labrum. WHen it initially happened, RLE would let go and give out when walking, but the ortho didn't plan to do anything about it. That letting go happened for the first year. She has had buttocks pain that was on and off and when she had foot surgery and was in WC and R hip hurt a lot then. She also had a major back injury and has had mult back surgeries. She has MRI of hip today. She has had 2 steroid injections and the more recent one only helped for about a day. She has seen many pain specialists and sees a new one Wednesday. She has chronic back pain that does have different radiating patterns. Treatment Goals Patient/Caregiver Goals Get rid of pain in hip, improve walking-be able to do some short walks, improve balance PT-OP-C Subjective Start: 03/11/22 13:38 Freq: Status: Active Protocol: Document 04/14/22 09:02 [facility] (Rec: 04/14/22 09:47 [facility] [id number]) OP-PT Subjective Patient Comments Patient Comments HIp feeling better overall especially with level gait, painful and weak on curbs and steps, incline. Got back to the pool again. Chest pain has been getting better. C/o elbow pain aching all day and night; thinks RA. Saw Jose Guadalupe at [facility] to be casted for new orthotics. Reports modified technique for use of tennis ball for self- massage very helpful. PT-OP-D Balance Start: 03/11/22 13:38 Freq: Status: Active Protocol: Document 03/12/22 09:53 [facility] (Rec: 03/12/22 10:32 [facility] [id number]) Balance Tests Ordoñez Balance Test Ordoñez Balance Test Score 33 Single Limb Standing Single Limb- Right can lift leg Single Limb- Left can lift leg PT-OP-F Manual Assessment Start: 03/11/22 13:38 Freq: Status: Active Protocol: Document 03/12/22 09:53 [facility] (Rec: 03/12/22 10:32 [facility] [id number]) Manual Assessments Soft Tissue Assessment Soft Tissue Mobility Assessment tightness: ITB, hip flexor, TFL, HS, glutes PT-OP-G Mobility & Gait Start: 03/11/22 13:38 Freq: Status: Active Protocol: Document 03/12/22 09:53 [facility] (Rec: 03/12/22 10:32 [facility] [id number]) OP Gait Assessment Comments Gait Comments Amb w/cane in L hand w/dec stance time on RLE and dec overall push off B PT-OP-J Posture/Palpation/Skin Start: 03/11/22 13:38 Freq: Status: Active Protocol: Document 03/12/22 09:53 [facility] (Rec: 03/12/22 10:32 [facility] [id number]) Posture Evaluation Comments Posture Comments inc kyphosis; fwd flexed at hip PT-OP-K Range of Motion Start: 03/11/22 13:38 Freq: Status: Active Protocol: Document 03/12/22 09:53 [facility] (Rec: 03/12/22 10:32 [facility] [id number]) Hip Goniometric Range of Motion Hip Right Active Flexion w/Knee Flexed 88 Abduction 21 Internal Rotation 12 External Rotation 21 Left Active Flexion w/Knee Flexed 105 Abduction 30 Internal Rotation 35 External Rotation 25 PT-OP-L Special Tests Start: 03/11/22 13:38 Freq: Status: Active Protocol: Document 03/12/22 09:53 [facility] (Rec: 03/12/22 10:32 [facility] [id number]) Special Tests Hip Special Tests Slump Test Results neg-HS tightness that doesn't inc w/cervical flex Straight Leg Raise Test Results R: 61; L:80 deg-HS tightness PT-OP-M Strength Start: 03/11/22 13:38 Freq: Status: Active Protocol: Document 03/12/22 09:53 [facility] (Rec: 03/12/22 10:32 [facility] [id number]) Hip Strength Hip Manual Muscle Testing Left Flexion (L2) 4- Good- Extension (S1) 3+ Fair+ Abduction 4 Good Adduction 4 Good External Rotation 3+ Fair+ Internal Rotation 5 Normal Right Flexion (L2) 3+ Fair+ Extension (S1) 3 Fair Abduction 2+ Poor+ Adduction 3+ Fair+ External Rotation 3+ Fair+ Internal Rotation 2+ Poor+ Comments pain R SI w/B ER Knee Strength Knee Manual Muscle Testing Right Flexion (S2) 4+ Good+ Extension (L3) 4+ Good+ Left Flexion (S2) 4+ Good+ Extension (L3) 4+ Good+ Ankle/Foot Strength Ankle and Foot Manual Muscle Testing Right Dorsiflexion (L4) 4 Good Plantarflexion (S1) 4 Good Left Dorsiflexion (L4) 4 Good Plantarflexion (S1) 4 Good Comments PF tested seated B PT-OP-Q Treatments Start: 03/11/22 13:38 Freq: Status: Active Protocol: Document 04/14/22 09:02 [facility] (Rec: 04/14/22 09:47 [facility] [id number]) Cardio Equipment Recumbent Stepper (Sci-Fit) Duration (Minutes) 7 Resistance 1 Seat Position 11 Gym Equipment Shuttle Recovery Unilateral Squats Details core engaged, pain-free ROM Resistance 25# Shuttle Recovery Platform Stable Reps/Time 2x10 Bilateral Squats Details core activation, ball between knees Resistance 50 Shuttle Recovery Platform Stable Reps/Time 15x2 Therapeutic Exercises Supine Exercises hip flex Supine Exercise Name R iso Side right Reps/Minutes 10 sec x6 Standing Exercises sidesteps Side bilateral Reps/Minutes 2x10ft B hip abd Side bilateral Reps/Minutes 6 Manual Therapy Treatment Soft Tissue Mobilization glutes Body Location R glutes throughout & piriformis Self-Care/Home Management Treatment Education Other Education reviewed use of tennis ball for self-massage PT-OP-R Modalities Start: 03/11/22 13:38 Freq: Status: Active Protocol: Document 04/14/22 09:02 [facility] (Rec: 04/14/22 09:47 [facility] [id number]) Hot Pack/Cold Pack Treatment Cold Pack Location R hip Patient Position Sidelying Treatment Duration (minutes) 10 Ultrasound Therapy Treatment Greater trochanter right Treatment Duration (minutes) 8 Patient Position Sidelying Duty Cycle 50% Intensity Setting (w/cm2) 1.2 PT-OP-T Assessment and Plan Start: 03/11/22 13:38 Freq: Status: Active Protocol: Document 04/14/22 09:02 [facility] (Rec: 04/14/22 09:47 [facility] [id number]) Physical Therapy Assessment Goals activities Short Term Goal (STG) Pt will b eable to sit as needed during day w/o inc R hip pain. STG Duration 05/05/22 Longterm Goal (LTG) Pt will be able to go for short walks with AD w/o pain in hip greater than 3/10. LTG Duration 06/04/22 balance Impairment ORDOÑEZ Impairment 33/56 Short Term Goal (STG) Pt will imrpove ORDOÑEZ score to at least 36 to show pt is a safe amulator w/AD. STG Duration 04/22/22 Remote Operations Producer Goal (LTG) Pt will improve score to at least 46 to show safe ambular w/o AD and less likely to fall . LTG Duration 06/04/22 One Impairment unable to reach overhead Short Term Goal (STG) Pt will be indep w/HEP STG Duration 04/27/22 Remote Operations Producer Goal (LTG) Pt will show improved strength by inc of all MMT by at least 1 full grade to allow improved ability to mobilize. LTG Duration 06/04/22 Assessment Summary Assessment Reporting decrease in pain in hip, was able to return to aquatic PT. Most difficulty with stairs and incline, not attempted today in PT. Good tolerance for Sci-Fit and shuttle leg press, standing sidestep and hip abduction. Physical Therapy Plan Frequency and Duration Frequency of Treatment 1-2x/wk Duration of treatment (weeks) 12 Plan of Care Start Date 03/12/22 Plan of Care End Date 06/04/22 Therapeutic Interventions Therapeutic Interventions Balance Training,Gait Training ,Home Exercise Program,Joint Mobilizations,Manual Therapy, Neuromuscular Re-education, Orthotic/Prosthetic Management ,Patient/Caregiver Education, Self-Care/Home Management,Soft Tissue Mobilization,Taping, Therapeutic Activities, Therapeutic Exercises Modalities Cold Pack/Ice Massage,Electric Stimulation,Hot Packs, Infrared Therapy,Ultrasound Next Visit Focus/Plan Next Note Type Treatment Note Next Visit Plan Continue PT per POC for strengthening, flexibility, manual techniques, ultrasound.
--- NOTE | 2022-04-16 16:17 | PT.OTN ---
Current Diagnoses Unilateral primary osteoarthritis, right hip (04/16/22) Trochanteric bursitis, right hip (04/16/22) Difficulty in walking, not elsewhere classified (04/16/22) Abnormal posture (04/16/22) Weakness (04/16/22) Physical Therapy Treatment Note PT-OP-A Visit Information Start: 03/11/22 13:38 Freq: Status: Active Protocol: Document 04/16/22 08:15 [facility] (Rec: 04/16/22 09:04 [facility] [id number]) Out-Patient Physical Therapy Visit Information Visit Information Visit Type Treatment Note Visit Start Time 08:15 Visit Stop Time 09:10 Total Visit Minutes 55 Visit Number 10 Number of SERVICING REP Visits 0 PT-OP-B Current Condition Start: 03/11/22 13:38 Freq: Status: Active Protocol: Document 03/12/22 09:53 [facility] (Rec: 03/12/22 10:32 [facility] [id number]) Current Condition History of Current Condition Onset Date 2012 Current Complaints R hip pain History of Current Condition Pt fell and tore glute max & minimus in 2012 and possibly labrum. WHen it initially happened, RLE would let go and give out when walking, but the ortho didn't plan to do anything about it. That letting go happened for the first year. She has had buttocks pain that was on and off and when she had foot surgery and was in [place] and R hip hurt a lot then. She also had a major back injury and has had mult back surgeries. She has MRI of hip today. She has had 2 steroid injections and the more recent one only helped for about a day. She has seen many pain specialists and sees a new one Wednesday. She has chronic back pain that does have different radiating patterns. Treatment Goals Patient/Caregiver Goals Get rid of pain in hip, improve walking-be able to do some short walks, improve balance PT-OP-C Subjective Start: 03/11/22 13:38 Freq: Status: Active Protocol: Document 04/16/22 08:15 [facility] (Rec: 04/16/22 09:04 [facility] [id number]) OP-PT Subjective Patient Comments Patient Comments Had a bad night, awake at 2:30 am. Maybe due to overdoing at pool yesterday; maybe not able to pay good enough attention to form. Had to take a Percocet. Hoping to get an injection soon. Pain worst in am. Sees Dr. Mercado next week. PT-OP-D Balance Start: 03/11/22 13:38 Freq: Status: Active Protocol: Document 03/12/22 09:53 [facility] (Rec: 03/12/22 10:32 [facility] [id number]) Balance Tests Valerio Balance Test Valerio Balance Test Score 33 Single Limb Standing Single Limb- Right can lift leg Single Limb- Left can lift leg PT-OP-F Manual Assessment Start: 03/11/22 13:38 Freq: Status: Active Protocol: Document 03/12/22 09:53 [facility] (Rec: 03/12/22 10:32 [facility] [id number]) Manual Assessments Soft Tissue Assessment Soft Tissue Mobility Assessment tightness: ITB, hip flexor, TFL, HS, glutes PT-OP-G Mobility & Gait Start: 03/11/22 13:38 Freq: Status: Active Protocol: Document 03/12/22 09:53 [facility] (Rec: 03/12/22 10:32 [facility] [id number]) OP Gait Assessment Comments Gait Comments Amb w/cane in L hand w/dec stance time on RLE and dec overall push off B PT-OP-J Posture/Palpation/Skin Start: 03/11/22 13:38 Freq: Status: Active Protocol: Document 03/12/22 09:53 [facility] (Rec: 03/12/22 10:32 [facility] [id number]) Posture Evaluation Comments Posture Comments inc kyphosis; fwd flexed at hip PT-OP-K Range of Motion Start: 03/11/22 13:38 Freq: Status: Active Protocol: Document 03/12/22 09:53 [facility] (Rec: 03/12/22 10:32 [facility] [id number]) Hip Goniometric Range of Motion Hip Right Active Flexion w/Knee Flexed 88 Abduction 21 Internal Rotation 12 External Rotation 21 Left Active Flexion w/Knee Flexed 105 Abduction 30 Internal Rotation 35 External Rotation 25 PT-OP-L Special Tests Start: 03/11/22 13:38 Freq: Status: Active Protocol: Document 03/12/22 09:53 [facility] (Rec: 03/12/22 10:32 [facility] [id number]) Special Tests Hip Special Tests Slump Test Results neg-HS tightness that doesn't inc w/cervical flex Straight Leg Raise Test Results R: 61; L:80 deg-HS tightness PT-OP-M Strength Start: 03/11/22 13:38 Freq: Status: Active Protocol: Document 03/12/22 09:53 [facility] (Rec: 03/12/22 10:32 [facility] [id number]) Hip Strength Hip Manual Muscle Testing Left Flexion (L2) 4- Good- Extension (S1) 3+ Fair+ Abduction 4 Good Adduction 4 Good External Rotation 3+ Fair+ Internal Rotation 5 Normal Right Flexion (L2) 3+ Fair+ Extension (S1) 3 Fair Abduction 2+ Poor+ Adduction 3+ Fair+ External Rotation 3+ Fair+ Internal Rotation 2+ Poor+ Comments pain R SI w/B ER Knee Strength Knee Manual Muscle Testing Right Flexion (S2) 4+ Good+ Extension (L3) 4+ Good+ Left Flexion (S2) 4+ Good+ Extension (L3) 4+ Good+ Ankle/Foot Strength Ankle and Foot Manual Muscle Testing Right Dorsiflexion (L4) 4 Good Plantarflexion (S1) 4 Good Left Dorsiflexion (L4) 4 Good Plantarflexion (S1) 4 Good Comments PF tested seated B PT-OP-Q Treatments Start: 03/11/22 13:38 Freq: Status: Active Protocol: Document 04/16/22 08:15 [facility] (Rec: 04/16/22 09:04 [facility] [id number]) Cardio Equipment Recumbent Stepper (Sci-Fit) Duration (Minutes) 7 Resistance 1 Seat Position 11 Gym Equipment Shuttle Recovery Unilateral Squats Details core engaged, pain-free ROM Resistance 25# Shuttle Recovery Platform Stable Reps/Time 5xR (hip popping so d/c), 10x L Bilateral Squats Details core activation, ball between knees Resistance 50 Shuttle Recovery Platform Stable Reps/Time 15x2 Therapeutic Exercises Supine Exercises hip flex Supine Exercise Name R iso Side right Reps/Minutes 10 sec x6 Manual Therapy Treatment Soft Tissue Mobilization hip flexors Body Location R Mobilization Type Sustained Pressure Intensity/Depth Moderate ITB Body Location R Mobilization Type Rolling,Strumming Intensity/Depth Moderate Body Position Sidelying glutes Body Location R glutes throughout & piriformis PT-OP-R Modalities Start: 03/11/22 13:38 Freq: Status: Active Protocol: Document 04/16/22 08:15 [facility] (Rec: 04/16/22 09:04 [facility] [id number]) Hot Pack/Cold Pack Treatment Cold Pack Location R hip Patient Position Sidelying Treatment Duration (minutes) 10 Ultrasound Therapy Treatment Greater trochanter right Treatment Duration (minutes) 8 Patient Position Sidelying Duty Cycle 50% Intensity Setting (w/cm2) 1.2 Comments posterior aspect PT-OP-T Assessment and Plan Start: 03/11/22 13:38 Freq: Status: Active Protocol: Document 04/16/22 08:15 [facility] (Rec: 04/16/22 09:04 [facility] [id number]) Physical Therapy Assessment Goals activities Short Term Goal (STG) Pt will b eable to sit as needed during day w/o inc R hip pain. STG Duration 05/05/22 Senior Care Goal (LTG) Pt will be able to go for short walks with AD w/o pain in hip greater than 3/10. LTG Duration 06/04/22 balance Impairment VALERIO Impairment 33/56 Short Term Goal (STG) Pt will imrpove VALERIO score to at least 36 to show pt is a safe amulator w/AD. STG Duration 04/22/22 Senior Care Goal (LTG) Pt will improve score to at least 46 to show safe ambular w/o AD and less likely to fall . LTG Duration 06/04/22 One Impairment unable to reach overhead Short Term Goal (STG) Pt will be indep w/HEP STG Duration 04/27/22 Senior Care Goal (LTG) Pt will show improved strength by inc of all MMT by at least 1 full grade to allow improved ability to mobilize. LTG Duration 06/04/22 Assessment Summary Assessment Inc pain today right hip, possibly due to overdoing at pool yesterday. Symptoms easily irritable. ENcouraged resumption of calf stretch ( NWB) for improved ROM for safety with mobility as well as mechanics with gait. Continue HEP as tolerated, use of tennis ball for self- massage. Physical Therapy Plan Frequency and Duration Frequency of Treatment 1-2x/wk Duration of treatment (weeks) 12 Plan of Care Start Date 03/12/22 Plan of Care End Date 06/04/22 Therapeutic Interventions Therapeutic Interventions Balance Training,Gait Training ,Home Exercise Program,Joint Mobilizations,Manual Therapy, Neuromuscular Re-education, Orthotic/Prosthetic Management ,Patient/Caregiver Education, Self-Care/Home Management,Soft Tissue Mobilization,Taping, Therapeutic Activities, Therapeutic Exercises Modalities Cold Pack/Ice Massage,Electric Stimulation,Hot Packs, Infrared Therapy,Ultrasound Next Visit Focus/Plan Next Note Type Progress Note Next Visit Plan Continue PT per POC for strengthening, flexibility, manual techniques, ultrasound.
--- NOTE | 2022-04-21 16:37 | PT.OTN ---
Current Diagnoses Unilateral primary osteoarthritis, right hip (04/21/22) Trochanteric bursitis, right hip (04/21/22) Difficulty in walking, not elsewhere classified (04/21/22) Abnormal posture (04/21/22) Weakness (04/21/22) Physical Therapy Treatment Note PT-OP-A Visit Information Start: 03/11/22 13:38 Freq: Status: Active Protocol: Document 04/21/22 09:05 [facility] (Rec: 04/21/22 09:46 [facility] [id number]) Out-Patient Physical Therapy Visit Information Visit Information Visit Type Treatment Note Visit Start Time 09:05 Visit Stop Time 10:00 Total Visit Minutes 55 Visit Number 11 Number of COMMUNICATIONS DESIGNER Visits 0 PT-OP-B Current Condition Start: 03/11/22 13:38 Freq: Status: Active Protocol: Document 03/12/22 09:53 [facility] (Rec: 03/12/22 10:32 [facility] [id number]) Current Condition History of Current Condition Onset Date 2012 Current Complaints R hip pain History of Current Condition Pt fell and tore glute max & minimus in 2012 and possibly labrum. WHen it initially happened, RLE would let go and give out when walking, but the ortho didn't plan to do anything about it. That letting go happened for the first year. She has had buttocks pain that was on and off and when she had foot surgery and was in [place] and R hip hurt a lot then. She also had a major back injury and has had mult back surgeries. She has MRI of hip today. She has had 2 steroid injections and the more recent one only helped for about a day. She has seen many pain specialists and sees a new one Wednesday. She has chronic back pain that does have different radiating patterns. Treatment Goals Patient/Caregiver Goals Get rid of pain in hip, improve walking-be able to do some short walks, improve balance PT-OP-C Subjective Start: 03/11/22 13:38 Freq: Status: Active Protocol: Document 04/21/22 09:05 [facility] (Rec: 04/21/22 09:46 [facility] [id number]) OP-PT Subjective Patient Comments Patient Comments Bad weekend, burning in buttock and low back. Sees Dr Rose Marie Mercado tomorrow about injection, wants to talk about rhizotomomy. Saw loan consultant in [place] yesterday discussed inability to wear AFO, can't find shoes. He recommended she find shoes, doesn't want to cut down AFO which would sacrifice support. Went to pool on Wednesday, tried Wednesday but it was closed. Burning in buttock was mostly coccyx area. PT-OP-D Balance Start: 03/11/22 13:38 Freq: Status: Active Protocol: Document 03/12/22 09:53 [facility] (Rec: 03/12/22 10:32 [facility] [id number]) Balance Tests Valerio Balance Test Valerio Balance Test Score 33 Single Limb Standing Single Limb- Right can lift leg Single Limb- Left can lift leg PT-OP-F Manual Assessment Start: 03/11/22 13:38 Freq: Status: Active Protocol: Document 03/12/22 09:53 [facility] (Rec: 03/12/22 10:32 [facility] [id number]) Manual Assessments Soft Tissue Assessment Soft Tissue Mobility Assessment tightness: ITB, hip flexor, TFL, HS, glutes PT-OP-G Mobility & Gait Start: 03/11/22 13:38 Freq: Status: Active Protocol: Document 03/12/22 09:53 [facility] (Rec: 03/12/22 10:32 [facility] [id number]) OP Gait Assessment Comments Gait Comments Amb w/cane in L hand w/dec stance time on RLE and dec overall push off B PT-OP-J Posture/Palpation/Skin Start: 03/11/22 13:38 Freq: Status: Active Protocol: Document 03/12/22 09:53 [facility] (Rec: 03/12/22 10:32 [facility] [id number]) Posture Evaluation Comments Posture Comments inc kyphosis; fwd flexed at hip PT-OP-K Range of Motion Start: 03/11/22 13:38 Freq: Status: Active Protocol: Document 03/12/22 09:53 [facility] (Rec: 03/12/22 10:32 [facility] [id number]) Hip Goniometric Range of Motion Hip Right Active Flexion w/Knee Flexed 88 Abduction 21 Internal Rotation 12 External Rotation 21 Left Active Flexion w/Knee Flexed 105 Abduction 30 Internal Rotation 35 External Rotation 25 PT-OP-L Special Tests Start: 03/11/22 13:38 Freq: Status: Active Protocol: Document 03/12/22 09:53 [facility] (Rec: 03/12/22 10:32 [facility] [id number]) Special Tests Hip Special Tests Slump Test Results neg-HS tightness that doesn't inc w/cervical flex Straight Leg Raise Test Results R: 61; L:80 deg-HS tightness PT-OP-M Strength Start: 03/11/22 13:38 Freq: Status: Active Protocol: Document 03/12/22 09:53 [facility] (Rec: 03/12/22 10:32 [facility] [id number]) Hip Strength Hip Manual Muscle Testing Left Flexion (L2) 4- Good- Extension (S1) 3+ Fair+ Abduction 4 Good Adduction 4 Good External Rotation 3+ Fair+ Internal Rotation 5 Normal Right Flexion (L2) 3+ Fair+ Extension (S1) 3 Fair Abduction 2+ Poor+ Adduction 3+ Fair+ External Rotation 3+ Fair+ Internal Rotation 2+ Poor+ Comments pain R SI w/B ER Knee Strength Knee Manual Muscle Testing Right Flexion (S2) 4+ Good+ Extension (L3) 4+ Good+ Left Flexion (S2) 4+ Good+ Extension (L3) 4+ Good+ Ankle/Foot Strength Ankle and Foot Manual Muscle Testing Right Dorsiflexion (L4) 4 Good Plantarflexion (S1) 4 Good Left Dorsiflexion (L4) 4 Good Plantarflexion (S1) 4 Good Comments PF tested seated B PT-OP-Q Treatments Start: 03/11/22 13:38 Freq: Status: Active Protocol: Document 04/21/22 09:05 [facility] (Rec: 04/21/22 09:46 [facility] [id number]) Cardio Equipment Recumbent Stepper (Sci-Fit) Duration (Minutes) 7 Resistance 1 Seat Position 11 Gym Equipment Shuttle Recovery Unilateral Squats Details core engaged, pain-free ROM Resistance 25# Shuttle Recovery Platform Stable Reps/Time 5xR (hip popping so d/c), 10x L Bilateral Squats Details core activation, ball between knees Resistance 50 Shuttle Recovery Platform Stable Reps/Time 15x2 Therapeutic Exercises Supine Exercises hip flex Supine Exercise Name HEP Sidelying Exercises hip ab Reps/Minutes 10x Comments no actual lift, just tightening in prep for movement reverse clamshell Side right Reps/Minutes 10 Comments difficulty performing, cues for tightening muscle in prep for movement. Manual Therapy Treatment Soft Tissue Mobilization ITB Body Location R Mobilization Type Rolling,Strumming Intensity/Depth Moderate Body Position Sidelying glutes Body Location R glutes throughout & piriformis PT-OP-R Modalities Start: 03/11/22 13:38 Freq: Status: Active Protocol: Document 04/21/22 09:05 [facility] (Rec: 04/21/22 09:46 [facility] [id number]) Hot Pack/Cold Pack Treatment Cold Pack Location R hip Patient Position Sidelying Treatment Duration (minutes) 10 Ultrasound Therapy Treatment Greater trochanter right Treatment Duration (minutes) 8 Patient Position Sidelying Duty Cycle 50% Intensity Setting (w/cm2) 1.2 Comments posterior aspect PT-OP-T Assessment and Plan Start: 03/11/22 13:38 Freq: Status: Active Protocol: Document 04/21/22 09:05 [facility] (Rec: 04/21/22 09:46 [facility] [id number]) Physical Therapy Assessment Goals activities Short Term Goal (STG) Pt will b eable to sit as needed during day w/o inc R hip pain. STG Duration 05/05/22 [facility] Goal (LTG) Pt will be able to go for short walks with AD w/o pain in hip greater than 3/10. LTG Duration 06/04/22 balance Impairment VALERIO Impairment 33/56 Short Term Goal (STG) Pt will imrpove VALERIO score to at least 36 to show pt is a safe amulator w/AD. STG Duration 04/22/22 [facility] Goal (LTG) Pt will improve score to at least 46 to show safe ambular w/o AD and less likely to fall . LTG Duration 06/04/22 One Impairment unable to reach overhead Short Term Goal (STG) Pt will be indep w/HEP STG Duration 04/27/22 Travel Journalist Goal (LTG) Pt will show improved strength by inc of all MMT by at least 1 full grade to allow improved ability to mobilize. LTG Duration 06/04/22 Assessment Summary Assessment patient not currently wearing brace right LE due to difficulty finding shoes. Feel altered gait mechanics continue to contribute to her pain issues. Seeing Dr. Mercado tomorrow. Physical Therapy Plan Frequency and Duration Frequency of Treatment 1-2x/wk Duration of treatment (weeks) 12 Plan of Care Start Date 03/12/22 Plan of Care End Date 06/04/22 Therapeutic Interventions Therapeutic Interventions Balance Training,Gait Training ,Home Exercise Program,Joint Mobilizations,Manual Therapy, Neuromuscular Re-education, Orthotic/Prosthetic Management ,Patient/Caregiver Education, Self-Care/Home Management,Soft Tissue Mobilization,Taping, Therapeutic Activities, Therapeutic Exercises Modalities Cold Pack/Ice Massage,Electric Stimulation,Hot Packs, Infrared Therapy,Ultrasound Next Visit Focus/Plan Next Note Type Progress Note Next Visit Plan Continue PT per POC for strengthening, flexibility, manual techniques, ultrasound as indicated to dec right hip and buttock pain, improve her mobility in the home and community.
--- NOTE | 2022-04-23 14:32 | PT.OTN ---
Current Diagnoses Unilateral primary osteoarthritis, right hip (04/23/22) Trochanteric bursitis, right hip (04/23/22) Difficulty in walking, not elsewhere classified (04/23/22) Abnormal posture (04/23/22) Weakness (04/23/22) Physical Therapy Treatment Note PT-OP-A Visit Information Start: 03/11/22 13:38 Freq: Status: Active Protocol: Document 04/23/22 11:26 [facility] (Rec: 04/23/22 14:32 [facility] [id number]) Out-Patient Physical Therapy Visit Information Visit Information Visit Type Progress Note Visit Start Time 11:23 Visit Stop Time 12:12 Total Visit Minutes 49 Visit Number 12 Number of WIRE MACHINE CUTTER Visits 0 PT-OP-B Current Condition Start: 03/11/22 13:38 Freq: Status: Active Protocol: Document 03/12/22 09:53 [facility] (Rec: 03/12/22 10:32 [facility] [id number]) Current Condition History of Current Condition Onset Date 2012 Current Complaints R hip pain History of Current Condition Pt fell and tore glute max & minimus in 2012 and possibly labrum. WHen it initially happened, RLE would let go and give out when walking, but the ortho didn't plan to do anything about it. That letting go happened for the first year. She has had buttocks pain that was on and off and when she had foot surgery and was in WC and R hip hurt a lot then. She also had a major back injury and has had mult back surgeries. She has MRI of hip today. She has had 2 steroid injections and the more recent one only helped for about a day. She has seen many pain specialists and sees a new one Wednesday. She has chronic back pain that does have different radiating patterns. Treatment Goals Patient/Caregiver Goals Get rid of pain in hip, improve walking-be able to do some short walks, improve balance PT-OP-C Subjective Start: 03/11/22 13:38 Freq: Status: Active Protocol: Document 04/23/22 11:26 [facility] (Rec: 04/23/22 14:32 [facility] [id number]) OP-PT Subjective Patient Comments Patient Comments Pt reports she got bad news that MD doesn't think the rhizotomy would be approved. She is considering a pain stimulator. She has new primary provider (Dr. Mcneil). Pt fell Wednesday getting out of bed d/t having a sharp pain in back and fell into her walker that was there. P trepots recent pain into ant R thigh PT-OP-D Balance Start: 03/11/22 13:38 Freq: Status: Active Protocol: Document 04/23/22 11:26 [facility] (Rec: 04/23/22 14:32 [facility] [id number]) Balance Tests Ordoñez Balance Test Ordoñez Balance Test Score 43 PT-OP-F Manual Assessment Start: 03/11/22 13:38 Freq: Status: Active Protocol: Document 03/12/22 09:53 [facility] (Rec: 03/12/22 10:32 [facility] [id number]) Manual Assessments Soft Tissue Assessment Soft Tissue Mobility Assessment tightness: ITB, hip flexor, TFL, HS, glutes PT-OP-G Mobility & Gait Start: 03/11/22 13:38 Freq: Status: Active Protocol: Document 03/12/22 09:53 [facility] (Rec: 03/12/22 10:32 [facility] [id number]) OP Gait Assessment Comments Gait Comments Amb w/cane in L hand w/dec stance time on RLE and dec overall push off B PT-OP-J Posture/Palpation/Skin Start: 03/11/22 13:38 Freq: Status: Active Protocol: Document 03/12/22 09:53 [facility] (Rec: 03/12/22 10:32 [facility] [id number]) Posture Evaluation Comments Posture Comments inc kyphosis; fwd flexed at hip PT-OP-K Range of Motion Start: 03/11/22 13:38 Freq: Status: Active Protocol: Document 03/12/22 09:53 [facility] (Rec: 03/12/22 10:32 [facility] [id number]) Hip Goniometric Range of Motion Hip Right Active Flexion w/Knee Flexed 88 Abduction 21 Internal Rotation 12 External Rotation 21 Left Active Flexion w/Knee Flexed 105 Abduction 30 Internal Rotation 35 External Rotation 25 PT-OP-L Special Tests Start: 03/11/22 13:38 Freq: Status: Active Protocol: Document 03/12/22 09:53 [facility] (Rec: 03/12/22 10:32 [facility] [id number]) Special Tests Hip Special Tests Slump Test Results neg-HS tightness that doesn't inc w/cervical flex Straight Leg Raise Test Results R: 61; L:80 deg-HS tightness PT-OP-M Strength Start: 03/11/22 13:38 Freq: Status: Active Protocol: Document 04/23/22 11:26 [facility] (Rec: 04/23/22 14:32 [facility] [id number]) Hip Strength Hip Manual Muscle Testing Left Flexion (L2) 4- Good- Extension (S1) 3+ Fair+ Abduction 4 Good Adduction 4 Good External Rotation 3+ Fair+ Internal Rotation 5 Normal Right Flexion (L2) 3+ Fair+ Extension (S1) 3+ Fair+ Abduction 3- Fair- Adduction 4- Good- External Rotation 3+ Fair+ Internal Rotation 3- Fair- Comments pain R SI w/B ER Knee Strength Knee Manual Muscle Testing Right Flexion (S2) 5 Normal Extension (L3) 4+ Good+ Left Flexion (S2) 5 Normal Extension (L3) 4+ Good+ Ankle/Foot Strength Ankle and Foot Manual Muscle Testing Right Dorsiflexion (L4) 4+ Good+ Plantarflexion (S1) 4+ Good+ Left Dorsiflexion (L4) 4 Good Plantarflexion (S1) 4+ Good+ Comments PF tested seated B PT-OP-Q Treatments Start: 03/11/22 13:38 Freq: Status: Active Protocol: Document 04/23/22 11:26 [facility] (Rec: 04/23/22 14:32 [facility] [id number]) Cardio Equipment Recumbent Stepper (Sci-Fit) Duration (Minutes) 6 Resistance 1.5 Seat Position 11 Therapeutic Exercises Standing Exercises hip abd Standing Exercise Name counter Side bilateral Reps/Minutes 15 PT-OP-R Modalities Start: 03/11/22 13:38 Freq: Status: Active Protocol: Document 04/23/22 11:26 [facility] (Rec: 04/23/22 14:32 [facility] [id number]) Hot Pack/Cold Pack Treatment Cold Pack Location R hip Patient Position Sidelying Treatment Duration (minutes) 10 Ultrasound Therapy Treatment Greater trochanter right Treatment Duration (minutes) 8 Patient Position Sidelying Duty Cycle 50% Intensity Setting (w/cm2) 1.2 Comments posterior aspect PT-OP-T Assessment and Plan Start: 03/11/22 13:38 Freq: Status: Active Protocol: Document 04/23/22 11:26 [facility] (Rec: 04/23/22 14:32 [facility] [id number]) Physical Therapy Assessment Goals activities Short Term Goal (STG) Pt will b eable to sit as needed during day w/o inc R hip pain. 04/23-improved ;dec r hip pain w/sitting STG Duration 05/05/22 Space Systems Operations Manager Goal (LTG) Pt will be able to go for short walks with AD w/o pain in hip greater than 3/10. 04/23-not tried LTG Duration 06/04/22 balance Impairment ORDOÑEZ Impairment 33/56 Short Term Goal (STG) Pt will imrpove ORDOÑEZ score to at least 36 to show pt is a safe amulator w/AD. STG Duration achieved to 43 Space Systems Operations Manager Goal (LTG) Pt will improve score to at least 46 to show safe ambular w/o AD and less likely to fall . LTG Duration 06/04/22 One Impairment unable to reach overhead Short Term Goal (STG) Pt will be indep w/HEP STG Duration achieved advancing as aable Senior Living Goal (LTG) Pt will show improved strength by inc of all MMT by at least 1 full grade to allow improved ability to mobilize. 04/23-improving LTG Duration 06/04/22 Assessment Summary Assessment Pt is showing improved strength and noting overall dec hip pain. She feels good help w/US treatment. Pt showed improved balance on testing today. Physical Therapy Plan Frequency and Duration Frequency of Treatment 1-2x/wk Duration of treatment (weeks) 12 Plan of Care Start Date 03/12/22 Plan of Care End Date 06/04/22 Therapeutic Interventions Therapeutic Interventions Balance Training,Gait Training ,Home Exercise Program,Joint Mobilizations,Manual Therapy, Neuromuscular Re-education, Orthotic/Prosthetic Management ,Patient/Caregiver Education, Self-Care/Home Management,Soft Tissue Mobilization,Taping, Therapeutic Activities, Therapeutic Exercises Modalities Cold Pack/Ice Massage,Electric Stimulation,Hot Packs, Infrared Therapy,Ultrasound Next Visit Focus/Plan Next Note Type Treatment Note Next Visit Plan work on L 1 mobility;Continue PT per POC for strengthening, flexibility, manual techniques , ultrasound as indicated to dec right hip and buttock pain , improve her mobility in the home and community.
--- NOTE | 2022-04-28 12:11 | PT.OTN ---
Current Diagnoses Unilateral primary osteoarthritis, right hip (04/28/22) Trochanteric bursitis, right hip (04/28/22) Difficulty in walking, not elsewhere classified (04/28/22) Abnormal posture (04/28/22) Weakness (04/28/22) Physical Therapy Treatment Note PT-OP-A Visit Information Start: 03/11/22 13:38 Freq: Status: Active Protocol: Document 04/28/22 11:22 [facility] (Rec: 04/28/22 12:11 [facility] [id number]) Out-Patient Physical Therapy Visit Information Visit Information Visit Type Treatment Note Visit Note 04/17 Visit Start Time 11:20 Visit Stop Time 12:10 Total Visit Minutes 50 Visit Number 13 Number of METAL TUBE CUTTER Visits 0 PT-OP-B Current Condition Start: 03/11/22 13:38 Freq: Status: Active Protocol: Document 03/12/22 09:53 [facility] (Rec: 03/12/22 10:32 [facility] [id number]) Current Condition History of Current Condition Onset Date 2012 Current Complaints R hip pain History of Current Condition Pt fell and tore glute max & minimus in 2012 and possibly labrum. WHen it initially happened, RLE would let go and give out when walking, but the ortho didn't plan to do anything about it. That letting go happened for the first year. She has had buttocks pain that was on and off and when she had foot surgery and was in WC and R hip hurt a lot then. She also had a major back injury and has had mult back surgeries. She has MRI of hip today. She has had 2 steroid injections and the more recent one only helped for about a day. She has seen many pain specialists and sees a new one Wednesday. She has chronic back pain that does have different radiating patterns. Treatment Goals Patient/Caregiver Goals Get rid of pain in hip, improve walking-be able to do some short walks, improve balance PT-OP-C Subjective Start: 03/11/22 13:38 Freq: Status: Active Protocol: Document 04/28/22 11:22 [facility] (Rec: 04/28/22 12:11 [facility] [id number]) OP-PT Subjective Patient Comments Patient Comments Pt reports her foot has been bothering her a lot. PT-OP-D Balance Start: 03/11/22 13:38 Freq: Status: Active Protocol: Document 04/23/22 11:26 [facility] (Rec: 04/23/22 14:32 [facility] [id number]) Balance Tests Ordoñez Balance Test Ordoñez Balance Test Score 43 PT-OP-F Manual Assessment Start: 03/11/22 13:38 Freq: Status: Active Protocol: Document 03/12/22 09:53 [facility] (Rec: 03/12/22 10:32 [facility] [id number]) Manual Assessments Soft Tissue Assessment Soft Tissue Mobility Assessment tightness: ITB, hip flexor, TFL, HS, glutes PT-OP-G Mobility & Gait Start: 03/11/22 13:38 Freq: Status: Active Protocol: Document 03/12/22 09:53 [facility] (Rec: 03/12/22 10:32 [facility] [id number]) OP Gait Assessment Comments Gait Comments Amb w/cane in L hand w/dec stance time on RLE and dec overall push off B PT-OP-J Posture/Palpation/Skin Start: 03/11/22 13:38 Freq: Status: Active Protocol: Document 03/12/22 09:53 [facility] (Rec: 03/12/22 10:32 [facility] [id number]) Posture Evaluation Comments Posture Comments inc kyphosis; fwd flexed at hip PT-OP-K Range of Motion Start: 03/11/22 13:38 Freq: Status: Active Protocol: Document 03/12/22 09:53 [facility] (Rec: 03/12/22 10:32 [facility] [id number]) Hip Goniometric Range of Motion Hip Right Active Flexion w/Knee Flexed 88 Abduction 21 Internal Rotation 12 External Rotation 21 Left Active Flexion w/Knee Flexed 105 Abduction 30 Internal Rotation 35 External Rotation 25 PT-OP-L Special Tests Start: 03/11/22 13:38 Freq: Status: Active Protocol: Document 03/12/22 09:53 [facility] (Rec: 03/12/22 10:32 [facility] [id number]) Special Tests Hip Special Tests Slump Test Results neg-HS tightness that doesn't inc w/cervical flex Straight Leg Raise Test Results R: 61; L:80 deg-HS tightness PT-OP-M Strength Start: 03/11/22 13:38 Freq: Status: Active Protocol: Document 04/23/22 11:26 [facility] (Rec: 04/23/22 14:32 [facility] [id number]) Hip Strength Hip Manual Muscle Testing Left Flexion (L2) 4- Good- Extension (S1) 3+ Fair+ Abduction 4 Good Adduction 4 Good External Rotation 3+ Fair+ Internal Rotation 5 Normal Right Flexion (L2) 3+ Fair+ Extension (S1) 3+ Fair+ Abduction 3- Fair- Adduction 4- Good- External Rotation 3+ Fair+ Internal Rotation 3- Fair- Comments pain R SI w/B ER Knee Strength Knee Manual Muscle Testing Right Flexion (S2) 5 Normal Extension (L3) 4+ Good+ Left Flexion (S2) 5 Normal Extension (L3) 4+ Good+ Ankle/Foot Strength Ankle and Foot Manual Muscle Testing Right Dorsiflexion (L4) 4+ Good+ Plantarflexion (S1) 4+ Good+ Left Dorsiflexion (L4) 4 Good Plantarflexion (S1) 4+ Good+ Comments PF tested seated B PT-OP-Q Treatments Start: 03/11/22 13:38 Freq: Status: Active Protocol: Document 04/28/22 11:22 [facility] (Rec: 04/28/22 12:11 [facility] [id number]) Gym Equipment Shuttle Recovery Unilateral Squats Details core engaged, pain-free ROM Resistance 25# Shuttle Recovery Platform Stable Reps/Time 10 B Bilateral Squats Details core activation, ball between knees Resistance 50#, 62# Shuttle Recovery Platform Stable Reps/Time 15 ea Manual Therapy Treatment Soft Tissue Mobilization lumbar Body Location R along iliac crest Mobilization Type Rolling Intensity/Depth Moderate Body Position Sidelying Comments w/ant elevation/post dep glutes Body Location R glutes sup Mobilization Type Sustained Pressure Intensity/Depth Moderate Body Position Sidelying Joint Mobilizations Lumbar Comments L1 transverse R FM & L1-2 gapping FM PT-OP-R Modalities Start: 03/11/22 13:38 Freq: Status: Active Protocol: Document 04/28/22 11:22 [facility] (Rec: 04/28/22 12:11 [facility] [id number]) Hot Pack/Cold Pack Treatment Cold Pack Location R hip Patient Position Sidelying Treatment Duration (minutes) 10 Ultrasound Therapy Treatment Greater trochanter right Treatment Duration (minutes) 8 Patient Position Sidelying Duty Cycle 50% Intensity Setting (w/cm2) 1.2 Comments posterior aspect PT-OP-T Assessment and Plan Start: 03/11/22 13:38 Freq: Status: Active Protocol: Document 04/28/22 11:22 [facility] (Rec: 04/28/22 12:11 [facility] [id number]) Physical Therapy Assessment Goals activities Short Term Goal (STG) Pt will b eable to sit as needed during day w/o inc R hip pain. 04/23-improved ;dec r hip pain w/sitting STG Duration 05/05/22 Surgical Consultant Goal (LTG) Pt will be able to go for short walks with AD w/o pain in hip greater than 3/10. 04/23-not tried LTG Duration 06/04/22 balance Impairment ORDOÑEZ Impairment 33/56 Short Term Goal (STG) Pt will imrpove ORDOÑEZ score to at least 36 to show pt is a safe amulator w/AD. STG Duration achieved to 43 Surgical Consultant Goal (LTG) Pt will improve score to at least 46 to show safe ambular w/o AD and less likely to fall . LTG Duration 06/04/22 One Impairment unable to reach overhead Short Term Goal (STG) Pt will be indep w/HEP STG Duration achieved advancing as aable Senior Living Goal (LTG) Pt will show improved strength by inc of all MMT by at least 1 full grade to allow improved ability to mobilize. 04/23-improving LTG Duration 06/04/22 Assessment Summary Assessment Pt reports relief w/manual treatment. She was able to do more w/leg press anddid not note popping until end of reps . Some of her R hip pain may be d/t TL junction dysfunction or cluneal n pain. Physical Therapy Plan Frequency and Duration Frequency of Treatment 1-2x/wk Duration of treatment (weeks) 12 Plan of Care Start Date 03/12/22 Plan of Care End Date 06/04/22 Next Visit Focus/Plan Next Note Type Treatment Note Next Visit Plan work on TL junction mobility; Continue PT per POC for strengthening, flexibility, manual techniques, ultrasound as indicated to dec right hip and buttock pain, improve her mobility in the home and community.
--- NOTE | 2022-04-30 10:35 | PT.OTN ---
Current Diagnoses Unilateral primary osteoarthritis, right hip (04/30/22) Trochanteric bursitis, right hip (04/30/22) Difficulty in walking, not elsewhere classified (04/30/22) Abnormal posture (04/30/22) Weakness (04/30/22) Physical Therapy Treatment Note PT-OP-A Visit Information Start: 03/11/22 13:38 Freq: Status: Active Protocol: Document 04/30/22 09:51 [facility] (Rec: 04/30/22 10:35 [facility] [id number]) Out-Patient Physical Therapy Visit Information Visit Information Visit Type Treatment Note Visit Note 05/15 Visit Start Time 09:49 Visit Number 14 Number of CERTIFIED ORTHOTIST Visits 0 PT-OP-B Current Condition Start: 03/11/22 13:38 Freq: Status: Active Protocol: Document 03/12/22 09:53 [facility] (Rec: 03/12/22 10:32 [facility] [id number]) Current Condition History of Current Condition Onset Date 2012 Current Complaints R hip pain History of Current Condition Pt fell and tore glute max & minimus in 2012 and possibly labrum. WHen it initially happened, RLE would let go and give out when walking, but the ortho didn't plan to do anything about it. That letting go happened for the first year. She has had buttocks pain that was on and off and when she had foot surgery and was in WC and R hip hurt a lot then. She also had a major back injury and has had mult back surgeries. She has MRI of hip today. She has had 2 steroid injections and the more recent one only helped for about a day. She has seen many pain specialists and sees a new one Wednesday. She has chronic back pain that does have different radiating patterns. Treatment Goals Patient/Caregiver Goals Get rid of pain in hip, improve walking-be able to do some short walks, improve balance PT-OP-C Subjective Start: 03/11/22 13:38 Freq: Status: Active Protocol: Document 04/30/22 09:51 [facility] (Rec: 04/30/22 10:35 [facility] [id number]) OP-PT Subjective Patient Comments Patient Comments Pt slid off the bed last night when she went to sit on the edge of it. Her had to help her up. In the middle of the night her buttocks was throbbing and she took a part of a percocet to get back to sleep. It seems okay this AM PT-OP-D Balance Start: 03/11/22 13:38 Freq: Status: Active Protocol: Document 04/23/22 11:26 [facility] (Rec: 04/23/22 14:32 [facility] [id number]) Balance Tests Ordoñez Balance Test Ordoñez Balance Test Score 43 PT-OP-F Manual Assessment Start: 03/11/22 13:38 Freq: Status: Active Protocol: Document 03/12/22 09:53 [facility] (Rec: 03/12/22 10:32 [facility] [id number]) Manual Assessments Soft Tissue Assessment Soft Tissue Mobility Assessment tightness: ITB, hip flexor, TFL, HS, glutes PT-OP-G Mobility & Gait Start: 03/11/22 13:38 Freq: Status: Active Protocol: Document 03/12/22 09:53 [facility] (Rec: 03/12/22 10:32 [facility] [id number]) OP Gait Assessment Comments Gait Comments Amb w/cane in L hand w/dec stance time on RLE and dec overall push off B PT-OP-J Posture/Palpation/Skin Start: 03/11/22 13:38 Freq: Status: Active Protocol: Document 03/12/22 09:53 [facility] (Rec: 03/12/22 10:32 [facility] [id number]) Posture Evaluation Comments Posture Comments inc kyphosis; fwd flexed at hip PT-OP-K Range of Motion Start: 03/11/22 13:38 Freq: Status: Active Protocol: Document 03/12/22 09:53 [facility] (Rec: 03/12/22 10:32 [facility] [id number]) Hip Goniometric Range of Motion Hip Right Active Flexion w/Knee Flexed 88 Abduction 21 Internal Rotation 12 External Rotation 21 Left Active Flexion w/Knee Flexed 105 Abduction 30 Internal Rotation 35 External Rotation 25 PT-OP-L Special Tests Start: 03/11/22 13:38 Freq: Status: Active Protocol: Document 03/12/22 09:53 [facility] (Rec: 03/12/22 10:32 [facility] [id number]) Special Tests Hip Special Tests Slump Test Results neg-HS tightness that doesn't inc w/cervical flex Straight Leg Raise Test Results R: 61; L:80 deg-HS tightness PT-OP-M Strength Start: 03/11/22 13:38 Freq: Status: Active Protocol: Document 04/23/22 11:26 [facility] (Rec: 04/23/22 14:32 [facility] [id number]) Hip Strength Hip Manual Muscle Testing Left Flexion (L2) 4- Good- Extension (S1) 3+ Fair+ Abduction 4 Good Adduction 4 Good External Rotation 3+ Fair+ Internal Rotation 5 Normal Right Flexion (L2) 3+ Fair+ Extension (S1) 3+ Fair+ Abduction 3- Fair- Adduction 4- Good- External Rotation 3+ Fair+ Internal Rotation 3- Fair- Comments pain R SI w/B ER Knee Strength Knee Manual Muscle Testing Right Flexion (S2) 5 Normal Extension (L3) 4+ Good+ Left Flexion (S2) 5 Normal Extension (L3) 4+ Good+ Ankle/Foot Strength Ankle and Foot Manual Muscle Testing Right Dorsiflexion (L4) 4+ Good+ Plantarflexion (S1) 4+ Good+ Left Dorsiflexion (L4) 4 Good Plantarflexion (S1) 4+ Good+ Comments PF tested seated B PT-OP-Q Treatments Start: 03/11/22 13:38 Freq: Status: Active Protocol: Document 04/30/22 09:51 [facility] (Rec: 04/30/22 10:35 [facility] [id number]) Cardio Equipment Recumbent Stepper (Sci-Fit) Duration (Minutes) 6 Resistance 1.5 Seat Position 11 Gym Equipment Shuttle Recovery Bilateral Squats Reps/Time attempted but pt couldn't get into position Therapeutic Exercises Standing Exercises hip abd Standing Exercise Name counter Side bilateral Reps/Minutes 15 Manual Therapy Treatment Soft Tissue Mobilization lumbar Body Location R along iliac crest Mobilization Type Rolling Intensity/Depth Moderate Body Position Sidelying Comments w/ant elevation/post dep Neuro Re-Education Treatment Balance Activities firm Comments NBOS EC staggered stance B PT-OP-R Modalities Start: 03/11/22 13:38 Freq: Status: Active Protocol: Document 04/30/22 09:51 [facility] (Rec: 04/30/22 10:35 [facility] [id number]) Hot Pack/Cold Pack Treatment Cold Pack Location R hip Patient Position Sidelying Treatment Duration (minutes) 10 Ultrasound Therapy Treatment Greater trochanter right Treatment Duration (minutes) 8 Patient Position Sidelying Duty Cycle 50% Intensity Setting (w/cm2) 1.2 Comments posterior aspect PT-OP-T Assessment and Plan Start: 03/11/22 13:38 Freq: Status: Active Protocol: Document 04/30/22 09:51 [facility] (Rec: 04/30/22 10:35 [facility] [id number]) Physical Therapy Assessment Goals activities Short Term Goal (STG) Pt will b eable to sit as needed during day w/o inc R hip pain. 04/23-improved ;dec r hip pain w/sitting STG Duration 05/05/22 Part Time Goal (LTG) Pt will be able to go for short walks with AD w/o pain in hip greater than 3/10. 04/23-not tried LTG Duration 06/04/22 balance Impairment ORDOÑEZ Impairment 33/56 Short Term Goal (STG) Pt will imrpove ORDOÑEZ score to at least 36 to show pt is a safe amulator w/AD. STG Duration achieved to 43 [facility] Goal (LTG) Pt will improve score to at least 46 to show safe ambular w/o AD and less likely to fall . LTG Duration 06/04/22 One Impairment unable to reach overhead Short Term Goal (STG) Pt will be indep w/HEP STG Duration achieved advancing as aable Part Time Goal (LTG) Pt will show improved strength by inc of all MMT by at least 1 full grade to allow improved ability to mobilize. 04/23-improving LTG Duration 06/04/22 Assessment Summary Assessment Avoided gluteal area d/t mild redness in the area possibly the start of bruising. She did have pain getting into position for leg press. She is ambulating as she typically does after the fall so low suspicion for fx. Physical Therapy Plan Frequency and Duration Frequency of Treatment 1-2x/wk Duration of treatment (weeks) 12 Plan of Care Start Date 03/12/22 Plan of Care End Date 06/04/22 Next Visit Focus/Plan Next Note Type Treatment Note Next Visit Plan work on TL junction mobility; Continue PT per POC for strengthening, flexibility, manual techniques, ultrasound as indicated to dec right hip and buttock pain, improve her mobility in the home and community.
--- NOTE | 2022-06-02 17:20 | PT.OTN ---
Current Diagnoses Unilateral primary osteoarthritis, right hip (06/02/22) Trochanteric bursitis, right hip (06/02/22) Difficulty in walking, not elsewhere classified (06/02/22) Abnormal posture (06/02/22) Weakness (06/02/22) Physical Therapy Treatment Note PT-OP-A Visit Information Start: 03/11/22 13:38 Freq: Status: Active Protocol: Document 06/02/22 15:22 [facility] (Rec: 06/02/22 17:20 [facility] [id number]) Out-Patient Physical Therapy Visit Information Visit Information Visit Type Progress Note Visit Note 06/15 Visit Start Time 15:18 Visit Stop Time 16:10 Total Visit Minutes 52 Visit Number 15 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 WHen it initially happened, RLE would let go and give out when walking, but the ortho didn't plan to do anything about it. That letting go happened for the first year. She has had buttocks pain that was on and off and when she had foot surgery and was in WC and R hip hurt a lot then. She also had a major back injury and has had mult back surgeries. She has MRI of hip today. She has had 2 steroid injections and the more recent one only helped for about a day. She has seen many pain specialists and sees a new one Wednesday. She has chronic back pain that does have different radiating patterns. Treatment Goals Patient/Caregiver Goals Get rid of pain in hip, improve walking-be able to do some short walks, improve balance PT-OP-C Subjective Start: 03/11/22 13:38 Freq: Status: Active Protocol: Document 06/02/22 15:22 [facility] (Rec: 06/02/22 17:20 [facility] [id number]) OP-PT Subjective Patient Comments Patient Comments Since pt last saw PT, she had another injection taht does short relief. She got a rhizotomy approved based on this. Pt hd to get a PNA vaccine. Pt started fentermine but she couldn't sleep and had constipation so stopped. Pt went to the pool a week ago Wednesday and took her several days to get over but had pain so bad. She only went for 30 min. Pt reprots less trouble laying on R side. Fell onto her knees d/t lady hitting her bag and kid had to help her up PT-OP-D Balance Start: 03/11/22 13:38 Freq: Status: Active Protocol: Document 06/02/22 15:22 [facility] (Rec: 06/02/22 17:20 [facility] [id number]) Balance Tests Ordoñez Balance Test Ordoñez Balance Test Score 41 PT-OP-F Manual Assessment Start: 03/11/22 13:38 Freq: Status: Active Protocol: Document 03/12/22 09:53 [facility] (Rec: 03/12/22 10:32 [facility] [id number]) Manual Assessments Soft Tissue Assessment Soft Tissue Mobility Assessment tightness: ITB, hip flexor, TFL, HS, glutes PT-OP-G Mobility & Gait Start: 03/11/22 13:38 Freq: Status: Active Protocol: Document 03/12/22 09:53 [facility] (Rec: 03/12/22 10:32 [facility] [id number]) OP Gait Assessment Comments Gait Comments Amb w/cane in L hand w/dec stance time on RLE and dec overall push off B PT-OP-J Posture/Palpation/Skin Start: 03/11/22 13:38 Freq: Status: Active Protocol: Document 03/12/22 09:53 [facility] (Rec: 03/12/22 10:32 [facility] [id number]) Posture Evaluation Comments Posture Comments inc kyphosis; fwd flexed at hip PT-OP-K Range of Motion Start: 03/11/22 13:38 Freq: Status: Active Protocol: Document 03/12/22 09:53 [facility] (Rec: 03/12/22 10:32 [facility] [id number]) Hip Goniometric Range of Motion Hip Right Active Flexion w/Knee Flexed 88 Abduction 21 Internal Rotation 12 External Rotation 21 Left Active Flexion w/Knee Flexed 105 Abduction 30 Internal Rotation 35 External Rotation 25 PT-OP-L Special Tests Start: 03/11/22 13:38 Freq: Status: Active Protocol: Document 03/12/22 09:53 [facility] (Rec: 03/12/22 10:32 [facility] [id number]) Special Tests Hip Special Tests Slump Test Results neg-HS tightness that doesn't inc w/cervical flex Straight Leg Raise Test Results R: 61; L:80 deg-HS tightness PT-OP-M Strength Start: 03/11/22 13:38 Freq: Status: Active Protocol: Document 06/02/22 15:22 [facility] (Rec: 06/02/22 17:20 [facility] [id number]) Hip Strength Hip Manual Muscle Testing Left Flexion (L2) 4 Good Extension (S1) 3+ Fair+ Abduction 4 Good Adduction 4 Good External Rotation 4- Good- Internal Rotation 5 Normal Right Flexion (L2) 4 Good Extension (S1) 3+ Fair+ Abduction 3 Fair Adduction 4- Good- External Rotation 4- Good- Internal Rotation 4 Good Comments back pain w/abd Knee Strength Knee Manual Muscle Testing Right Flexion (S2) 5 Normal Extension (L3) 4+ Good+ Left Flexion (S2) 5 Normal Extension (L3) 4+ Good+ Ankle/Foot Strength Ankle and Foot Manual Muscle Testing Right Dorsiflexion (L4) 4+ Good+ Plantarflexion (S1) 4+ Good+ Left Dorsiflexion (L4) 4+ Good+ Plantarflexion (S1) 4+ Good+ Comments PF tested seated B PT-OP-Q Treatments Start: 03/11/22 13:38 Freq: Status: Active Protocol: Document 06/02/22 15:22 [facility] (Rec: 06/02/22 17:20 [facility] [id number]) Cardio Equipment Recumbent Stepper (Sci-Fit) Duration (Minutes) 10 Resistance 1.5 Seat Position 11 Manual Therapy Treatment Soft Tissue Mobilization lumbar Body Location R along iliac crest & R ES Mobilization Type Rolling Intensity/Depth Moderate Body Position Sidelying Comments w/ant elevation/post dep Joint Mobilizations Lumbar Comments gapping T12-L1; L1-2 Fm s/l PT-OP-R Modalities Start: 03/11/22 13:38 Freq: Status: Active Protocol: Document 06/02/22 15:22 [facility] (Rec: 06/02/22 17:20 [facility] [id number]) Hot Pack/Cold Pack Treatment Cold Pack Location R hip/SI Patient Position Sidelying Treatment Duration (minutes) 10 PT-OP-T Assessment and Plan Start: 03/11/22 13:38 Freq: Status: Active Protocol: Document 06/02/22 15:22 [facility] (Rec: 06/02/22 17:20 [facility] [id number]) Physical Therapy Assessment Goals activities Short Term Goal (STG) Pt will b eable to sit as needed during day w/o inc R hip pain. 04/23-improved ;dec r hip pain w/sitting STG Duration achieved in hip but painful in back [employer] Worker Goal (LTG) Pt will be able to go for short walks with AD w/o pain in hip greater than 05/15. 04/23-not tried 06/02-went shelter around the block w/sticks -07/15 in back; hip felt okay LTG Duration 08/25 balance Impairment ORDOÑEZ Impairment 33/56 Short Term Goal (STG) Pt will imrpove ORDOÑEZ score to at least 36 to show pt is a safe amulator w/AD. STG Duration achieved to 43 [employer] Work[employer] Goal (LTG) Pt will improve score to at least 46 to show safe ambular w/o AD and less likely to fall . LTG Duration 08/25 One Impairment unable to reach overhead Short Term Goal (STG) Pt will be indep w/HEP STG Duration achieved advancing as aable [employer] Worker Goal (LTG) Pt will show improved strength by inc of all MMT by at least 1 full grade to allow improved ability to mobilize. 04/23-improving 06/02-achieed all but ext and ankle LTG Duration 08/25 Assessment Summary Assessment Pt has not been seen in 1 month d/t scheduling difficulty and pt unable to get in and also busy w/other appts.S he will be getting rhizotomy and awaitng more info from re: this. She has made some strength progress w /HEP but had 2 point dec w/o PT for ORDOÑEZ Physical Therapy Plan Frequency and Duration Frequency of Treatment 2x/wk Duration of treatment (weeks) 12 Plan of Care Start Date 06/02/22 Plan of Care End Date 08/25/22 Therapeutic Interventions Therapeutic Interventions Balance Training,Gait Training ,Home Exercise Program,Joint Mobilizations,Manual Therapy, Neuromuscular Re-education, Orthotic/Prosthetic Management ,Patient/Caregiver Education, Self-Care/Home Management,Soft Tissue Mobilization,Taping, Therapeutic Activities, Therapeutic Exercises Modalities Cold Pack/Ice Massage,Electric Stimulation,Hot Packs, Infrared Therapy,Ultrasound Next Visit Focus/Plan Next Note Type Treatment Note Next Visit Plan work on TL junction mobility; Continue PT per POC for strengthening, flexibility, manual techniques, ultrasound as indicated to dec right hip and buttock pain, improve her mobility in the home and community.
--- NOTE | 2022-06-02 17:20 | PT.OPPOC ---
Physical, Occupational & Speech Therapy At [facility] Current Diagnoses Unilateral primary osteoarthritis, right hip (06/02/22) Trochanteric bursitis, right hip (06/02/22) Difficulty in walking, not elsewhere classified (06/02/22) Abnormal posture (06/02/22) Weakness (06/02/22) Visit Care Team Role Provider Type Ellie Fountain PA-C Family Provider Non-Staff Primary Care Provider Specialty: Medical Address: [address] [place] [address], [id number] Email: [email or web address] [facility] Eliazar Marshall MD Attending Provider Non-Staff Referring Provider Specialty: Orthopedic Surgery Address: [address] [place] [address], [id number] Email: Plan Of Care PT-OP-T Assessment and Plan Start: 03/11/22 13:38 Freq: Status: Active Protocol: Document 06/02/22 15:22 [facility] (Rec: 06/02/22 17:20 [facility] [id number]) Physical Therapy Assessment Goals activities Short Term Goal (STG) Pt will b eable to sit as needed during day w/o inc R hip pain. 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 04/23-not tried 06/02-went long term around the block w/sticks -10 in back; hip felt okay LTG Duration 08/25 balance Impairment ORDOÑEZ Impairment 33/56 Short Term Goal (STG) Pt will imrpove ORDOÑEZ score to at least 36 to show pt is a safe amulator w/AD. STG Duration achieved to 43 Retirement Goal (LTG) Pt will improve score to at least 46 to show safe ambular w/o AD and less likely to fall . LTG Duration 08/25 One Impairment unable to reach overhead Short Term Goal (STG) Pt will be indep w/HEP STG Duration achieved advancing as aable Talent Program Manager Goal (LTG) Pt will show improved strength by inc of all MMT by at least 1 full grade to allow improved ability to mobilize. 04/23-improving 06/02-achieed all but ext and ankle LTG Duration 08/25 Assessment Summary Assessment Pt has not been seen in 1 month d/t scheduling difficulty and pt unable to get in and also busy w/other appts.S he will be getting rhizotomy and awaitng more info from re: this. She has made some strength progress w /HEP but had 2 point dec w/o PT for ORDOÑEZ Physical Therapy Plan Frequency and Duration Frequency of Treatment 2x/wk Duration of treatment (weeks) 12 Plan of Care Start Date 06/02/22 Plan of Care End Date 08/25/22 Therapeutic Interventions Therapeutic Interventions Balance Training,Gait Training ,Home Exercise Program,Joint Mobilizations,Manual Therapy, Neuromuscular Re-education, Orthotic/Prosthetic Management ,Patient/Caregiver Education, Self-Care/Home Management,Soft Tissue Mobilization,Taping, Therapeutic Activities, Therapeutic Exercises Modalities Cold Pack/Ice Massage,Electric Stimulation,Hot Packs, Infrared Therapy,Ultrasound Next Visit Focus/Plan Next Note Type Treatment Note Next Visit Plan work on TL junction mobility; Continue PT per POC for strengthening, flexibility, manual techniques, ultrasound as indicated to dec right hip and buttock pain, improve her mobility in the home and community. Plan of Care Dates Plan of Care Start Date 06/02/22 Plan of Care End Date 08/25/22 Electronically Signed by: Debbie Beyer, PT 06/02/22 3147 If you are in agreement with this Plan of Care, please return a signed and dated copy. I have reviewed this Plan of Care and certify that the skilled therapy services above are required to meet the patient?s needs. Physician Signature Date Printed Name and Credentials Clinical Instructor Signature Printed Name and Credentials
--- NOTE | 2022-06-08 12:22 | PT.OTN ---
Current Diagnoses Unilateral primary osteoarthritis, right hip (06/08/22) Trochanteric bursitis, right hip (06/08/22) Difficulty in walking, not elsewhere classified (06/08/22) Abnormal posture (06/08/22) Weakness (06/08/22) Physical Therapy Treatment Note PT-OP-A Visit Information Start: 03/11/22 13:38 Freq: Status: Active Protocol: Document 06/08/22 10:32 [facility] (Rec: 06/08/22 11:18 [facility] [id number]) Out-Patient Physical Therapy Visit Information Visit Information Visit Type Treatment Note Visit Start Time 10:32 Visit Stop Time 11:25 Total Visit Minutes 53 Visit Number 16 PT-OP-B Current Condition Start: 03/11/22 13:38 Freq: Status: Active Protocol: Document 03/12/22 09:53 [facility] (Rec: 03/12/22 10:32 [facility] [id number]) Current Condition History of Current Condition Onset Date 2012 Current Complaints R hip pain History of Current Condition Pt fell and tore glute max & minimus in 2012 and possibly labrum. WHen it initially happened, RLE would let go and give out when walking, but the ortho didn't plan to do anything about it. That letting go happened for the first year. She has had buttocks pain that was on and off and when she had foot surgery and was in WC and R hip hurt a lot then. She also had a major back injury and has had mult back surgeries. She has MRI of hip today. She has had 2 steroid injections and the more recent one only helped for about a day. She has seen many pain specialists and sees a new one Wednesday. She has chronic back pain that does have different radiating patterns. Treatment Goals Patient/Caregiver Goals Get rid of pain in hip, improve walking-be able to do some short walks, improve balance PT-OP-C Subjective Start: 03/11/22 13:38 Freq: Status: Active Protocol: Document 06/08/22 10:32 [facility] (Rec: 06/08/22 11:18 [facility] [id number]) OP-PT Subjective Patient Comments Patient Comments Has rhizotomy tomorrow with Dr Rose Marie Mercado. Hasn't been able to wear brace for LE, talked with company and they are going to make a Jorge brace for her instead. C/o mod pain down right leg. Had to take Percocet and sleeping pain 1 night, felt hungover. 1 week ago pain back of leg as well. States 24 hours after last PT session was in miserable pain. PT-OP-D Balance Start: 03/11/22 13:38 Freq: Status: Active Protocol: Document 06/02/22 15:22 [facility] (Rec: 06/02/22 17:20 [facility] [id number]) Balance Tests Valerio Balance Test Valerio Balance Test Score 41 PT-OP-F Manual Assessment Start: 03/11/22 13:38 Freq: Status: Active Protocol: Document 03/12/22 09:53 [facility] (Rec: 03/12/22 10:32 [facility] [id number]) Manual Assessments Soft Tissue Assessment Soft Tissue Mobility Assessment tightness: ITB, hip flexor, TFL, HS, glutes PT-OP-G Mobility & Gait Start: 03/11/22 13:38 Freq: Status: Active Protocol: Document 03/12/22 09:53 [facility] (Rec: 03/12/22 10:32 [facility] [id number]) OP Gait Assessment Comments Gait Comments Amb w/cane in L hand w/dec stance time on RLE and dec overall push off B PT-OP-J Posture/Palpation/Skin Start: 03/11/22 13:38 Freq: Status: Active Protocol: Document 03/12/22 09:53 [facility] (Rec: 03/12/22 10:32 [facility] [id number]) Posture Evaluation Comments Posture Comments inc kyphosis; fwd flexed at hip PT-OP-K Range of Motion Start: 03/11/22 13:38 Freq: Status: Active Protocol: Document 03/12/22 09:53 [facility] (Rec: 03/12/22 10:32 [facility] [id number]) Hip Goniometric Range of Motion Hip Right Active Flexion w/Knee Flexed 88 Abduction 21 Internal Rotation 12 External Rotation 21 Left Active Flexion w/Knee Flexed 105 Abduction 30 Internal Rotation 35 External Rotation 25 PT-OP-L Special Tests Start: 03/11/22 13:38 Freq: Status: Active Protocol: Document 03/12/22 09:53 [facility] (Rec: 03/12/22 10:32 [facility] [id number]) Special Tests Hip Special Tests Slump Test Results neg-HS tightness that doesn't inc w/cervical flex Straight Leg Raise Test Results R: 61; L:80 deg-HS tightness PT-OP-M Strength Start: 03/11/22 13:38 Freq: Status: Active Protocol: Document 06/02/22 15:22 [facility] (Rec: 06/02/22 17:20 [facility] [id number]) Hip Strength Hip Manual Muscle Testing Left Flexion (L2) 4 Good Extension (S1) 3+ Fair+ Abduction 4 Good Adduction 4 Good External Rotation 4- Good- Internal Rotation 5 Normal Right Flexion (L2) 4 Good Extension (S1) 3+ Fair+ Abduction 3 Fair Adduction 4- Good- External Rotation 4- Good- Internal Rotation 4 Good Comments back pain w/abd Knee Strength Knee Manual Muscle Testing Right Flexion (S2) 5 Normal Extension (L3) 4+ Good+ Left Flexion (S2) 5 Normal Extension (L3) 4+ Good+ Ankle/Foot Strength Ankle and Foot Manual Muscle Testing Right Dorsiflexion (L4) 4+ Good+ Plantarflexion (S1) 4+ Good+ Left Dorsiflexion (L4) 4+ Good+ Plantarflexion (S1) 4+ Good+ Comments PF tested seated B PT-OP-Q Treatments Start: 03/11/22 13:38 Freq: Status: Active Protocol: Document 06/08/22 10:32 [facility] (Rec: 06/08/22 11:18 [facility] [id number]) Cardio Equipment Recumbent Stepper (Sci-Fit) Duration (Minutes) 10 Resistance 1.5 Seat Position 11 Manual Therapy Treatment Soft Tissue Mobilization lumbar Body Location R along iliac crest & R ES Mobilization Type Rolling Intensity/Depth Moderate Body Position Sidelying Joint Mobilizations Lumbar Comments gapping T12-L1; L1-2 Fm s/l PT-OP-R Modalities Start: 03/11/22 13:38 Freq: Status: Active Protocol: Document 06/08/22 10:32 [facility] (Rec: 06/08/22 11:18 [facility] [id number]) Hot Pack/Cold Pack Treatment Cold Pack Location R hip/SI Patient Position Sidelying Treatment Duration (minutes) 10 PT-OP-T Assessment and Plan Start: 03/11/22 13:38 Freq: Status: Active Protocol: Document 06/08/22 10:32 [facility] (Rec: 06/08/22 11:18 [facility] [id number]) Physical Therapy Assessment Goals activities Short Term Goal (STG) Pt will b eable to sit as needed during day w/o inc R hip pain. 04/23-improved ;dec r hip pain w/sitting STG Duration achieved in hip but painful in back Half-Way Goal (LTG) Pt will be able to go for short walks with AD w/o pain in hip greater than 3/10. 04/23-not tried 06/02-went [facility] around the block w/sticks -5/10 in back; hip felt okay LTG Duration 08/25 balance Impairment VALERIO Impairment 33/56 Short Term Goal (STG) Pt will imrpove VALERIO score to at least 36 to show pt is a safe amulator w/AD. STG Duration achieved to 43 Half-Way Goal (LTG) Pt will improve score to at least 46 to show safe ambular w/o AD and less likely to fall . LTG Duration 08/25 One Impairment unable to reach overhead Short Term Goal (STG) Pt will be indep w/HEP STG Duration achieved advancing as aable Half-Way Goal (LTG) Pt will show improved strength by inc of all MMT by at least 1 full grade to allow improved ability to mobilize. 04/23-improving 06/02-achieed all but ext and ankle LTG Duration 08/25 Assessment Summary Assessment Hi level of pain today. Getting rhizotomy tomorrow. Encouraged isometric ex. Physical Therapy Plan Frequency and Duration Frequency of Treatment 2x/wk Duration of treatment (weeks) 12 Plan of Care Start Date 06/02/22 Plan of Care End Date 08/25/22 Therapeutic Interventions Therapeutic Interventions Balance Training,Gait Training ,Home Exercise Program,Joint Mobilizations,Manual Therapy, Neuromuscular Re-education, Orthotic/Prosthetic Management ,Patient/Caregiver Education, Self-Care/Home Management,Soft Tissue Mobilization,Taping, Therapeutic Activities, Therapeutic Exercises Modalities Cold Pack/Ice Massage,Electric Stimulation,Hot Packs, Infrared Therapy,Ultrasound Next Visit Focus/Plan Next Note Type Treatment Note Next Visit Plan Continue PT pending recommendations from Dr. Mercado. Continue PT per POC for strengthening, flexibility , manual techniques, ultrasound as indicated to dec right hip and buttock pain, improve her mobility in the home and community. [ End ]
--- NOTE | 2022-06-23 11:18 | PT.OTRE ---
Current Diagnoses Unilateral primary osteoarthritis, right hip (06/23/22) Trochanteric bursitis, right hip (06/23/22) Difficulty in walking, not elsewhere classified (06/23/22) Abnormal posture (06/23/22) Weakness (06/23/22) Past Medical History (Last Updated 05/13/22 @ 09:57 by Nai Arita DO) Asthma (~1990) Asthmatic bronchitis Balance problem Benign essential HTN Carpal tunnel syndrome (~2010) Cervical spine disease (~1979) Chronic back pain Chronic bilateral low back pain with bilateral sciatica Chronic cough Chronic pain syndrome Depression (~1986) DVT (deep venous thrombosis) (~2000) Fractures GERD (gastroesophageal reflux disease) (~1997) Low back pain Lumbar spine pain (~1979) Lymphocytic colitis Obesity (BMI 30.0-34.9) Osteoarthritis (~1979) Peripheral neuropathy Pulmonary embolism (~2000) Sacroiliac joint dysfunction Scoliosis (~1949) Seronegative rheumatoid arthritis (~2011) Shoulder pain Spondylolisthesis Tinnitus Surgical History (Last Updated 05/05/22 @ 19:52 by Leana Arechiga) Anesthesia H/O eye surgery (02/05/1958) H/O total hysterectomy (05/06/00) History of arthroscopic knee surgery (~05/07/79) History of carpal tunnel surgery (~06/06/13) History of cataract removal with insertion of prosthetic lens (~04/08/21) History of cholecystectomy (02/05/98) History of foot surgery History of knee surgery (05/05/10) History of left knee surgery (~05/06/77) History of left shoulder replacement (02/16/19) History of plastic surgery (~07/30/04) 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) History of uterine fibroid (~08/07/91) Hx of spinal fusion (10/09/18) Hx of tonsillectomy (07/27/1967) Patellar fracture (~04/18/09) S/P foot surgery, left (~02/16/18) S/P removal of ovarian cyst (~09/05/77) Status post left rotator cuff repair (~04/01/08) Status post right rotator cuff repair (~05/05/07) Temporomandibular joint disorder (~03/08/77) Visit Care Team Role Provider Type Ellie Fountain PA-C Family Provider Non-Staff Primary Care Provider Specialty: Medical Address: [address] [place] [address], [place], [address] Email: [email or web address] Eliazar Marshall MD Attending Provider Non-Staff Referring Provider Specialty: Orthopedic Surgery Address: [address] [place] [address], , [id number] Email: Physical Therapy Re-Evaluation PT-OP-A Visit Information Start: 03/11/22 13:38 Freq: Status: Active Protocol: Document 06/23/22 10:37 [facility] (Rec: 06/23/22 11:18 [facility] [id number]) Out-Patient Physical Therapy Visit Information Visit Information Visit Type Re-Evaluation Visit Start Time 10:35 Visit Stop Time 11:25 Total Visit Minutes 50 Visit Number 17 Number of CURING ROOM WORKER Visits 0 PT-OP-B Current Condition Start: 03/11/22 13:38 Freq: Status: Active Protocol: Document 03/12/22 09:53 [facility] (Rec: 03/12/22 10:32 [facility] [id number]) Current Condition History of Current Condition Onset Date 2012 Current Complaints R hip pain History of Current Condition Pt fell and tore glute max & minimus in 2012 and possibly labrum. WHen it initially happened, RLE would let go and give out when walking, but the ortho didn't plan to do anything about it. That letting go happened for the first year. She has had buttocks pain that was on and off and when she had foot surgery and was in WC and R hip hurt a lot then. She also had a major back injury and has had mult back surgeries. She has MRI of hip today. She has had 2 steroid injections and the more recent one only helped for about a day. She has seen many pain specialists and sees a new one Wednesday. She has chronic back pain that does have different radiating patterns. Treatment Goals Patient/Caregiver Goals Get rid of pain in hip, improve walking-be able to do some short walks, improve balance PT-OP-C Subjective Start: 03/11/22 13:38 Freq: Status: Active Protocol: Document 06/23/22 10:37 [facility] (Rec: 06/23/22 11:18 [facility] [id number]) OP-PT Subjective Patient Comments Patient Comments 4/4 pt had a rhizotomy on both sides at SI. She has been having a lot of pain since. She has been requiring help w/ going to/from bathroom. Getting up is the worst. She was cleared to go to PT 1 week later. 9/10 pain constantly right now PT-OP-D Balance Start: 03/11/22 13:38 Freq: Status: Active Protocol: Document 06/02/22 15:22 [facility] (Rec: 06/02/22 17:20 [facility] [id number]) Balance Tests Ordoñez Balance Test Ordoñez Balance Test Score 41 PT-OP-F Manual Assessment Start: 03/11/22 13:38 Freq: Status: Active Protocol: Document 03/12/22 09:53 [facility] (Rec: 03/12/22 10:32 [facility] [id number]) Manual Assessments Soft Tissue Assessment Soft Tissue Mobility Assessment tightness: ITB, hip flexor, TFL, HS, glutes PT-OP-G Mobility & Gait Start: 03/11/22 13:38 Freq: Status: Active Protocol: Document 03/12/22 09:53 [facility] (Rec: 03/12/22 10:32 [facility] [id number]) OP Gait Assessment Comments Gait Comments Amb w/cane in L hand w/dec stance time on RLE and dec overall push off B PT-OP-J Posture/Palpation/Skin Start: 03/11/22 13:38 Freq: Status: Active Protocol: Document 03/12/22 09:53 [facility] (Rec: 03/12/22 10:32 [facility] [id number]) Posture Evaluation Comments Posture Comments inc kyphosis; fwd flexed at hip PT-OP-K Range of Motion Start: 03/11/22 13:38 Freq: Status: Active Protocol: Document 03/12/22 09:53 [facility] (Rec: 03/12/22 10:32 [facility] [id number]) Hip Goniometric Range of Motion Hip Measured in Degrees Right Active Flexion w/Knee Flexed 88 Abduction 21 Internal Rotation 12 External Rotation 21 Left Active Flexion w/Knee Flexed 105 Abduction 30 Internal Rotation 35 External Rotation 25 PT-OP-L Special Tests Start: 03/11/22 13:38 Freq: Status: Active Protocol: Document 03/12/22 09:53 [facility] (Rec: 03/12/22 10:32 [facility] [id number]) Special Tests Hip Special Tests Slump Test Results neg-HS tightness that doesn't inc w/cervical flex Straight Leg Raise Test Results R: 61; L:80 deg-HS tightness PT-OP-M Strength Start: 03/11/22 13:38 Freq: Status: Active Protocol: Document 06/02/22 15:22 [facility] (Rec: 06/02/22 17:20 [facility] [id number]) Hip Strength Hip Manual Muscle Testing Left Flexion (L2) 4 Good Extension (S1) 3+ Fair+ Abduction 4 Good Adduction 4 Good External Rotation 4- Good- Internal Rotation 5 Normal Right Flexion (L2) 4 Good Extension (S1) 3+ Fair+ Abduction 3 Fair Adduction 4- Good- External Rotation 4- Good- Internal Rotation 4 Good Comments back pain w/abd Knee Strength Knee Manual Muscle Testing Right Flexion (S2) 5 Normal Extension (L3) 4+ Good+ Left Flexion (S2) 5 Normal Extension (L3) 4+ Good+ Ankle/Foot Strength Ankle and Foot Manual Muscle Testing Right Dorsiflexion (L4) 4+ Good+ Plantarflexion (S1) 4+ Good+ Left Dorsiflexion (L4) 4+ Good+ Plantarflexion (S1) 4+ Good+ Comments PF tested seated B PT-OP-Q Treatments Start: 03/11/22 13:38 Freq: Status: Active Protocol: Document 06/23/22 10:37 [facility] (Rec: 06/23/22 11:18 [facility] [id number]) Gym Equipment Shuttle Recovery Bilateral Squats Resistance 50# Reps/Time 15 Therapeutic Exercises Supine Exercises core Supine Exercise Name B opp chop patterns Side bilateral Equipment Used lvl 1 Reps/Minutes 15 ea breathing Supine Exercise Name diaphragmatic Side bilateral Reps/Minutes 10 Comments max cues for lat ribcage expansion also. pelvic tilt Reps/Minutes 15 Comments small comfortable range hip ER Supine Exercise Name gradual inc like feldenkris sm range Side bilateral Reps/Minutes 10 ea Self-Care/Home Management Treatment Education Other Education 7 min: discussed sympthathetic n system and pt being in fight or flight. Pt educated on using diaphragmatic breathing when feeling sharp pain. Edu to do small movements. Pt eudcated to contact her MD re: cont pain. PT-OP-R Modalities Start: 03/11/22 13:38 Freq: Status: Active Protocol: Document 06/23/22 10:37 [facility] (Rec: 06/23/22 11:18 [facility] [id number]) Hot Pack/Cold Pack Treatment Cold Pack Location LS & SI Patient Position Hooklying Treatment Duration (minutes) 10 PT-OP-T Assessment and Plan Start: 03/11/22 13:38 Freq: Status: Active Protocol: Document 06/23/22 10:37 [facility] (Rec: 06/23/22 11:18 [facility] [id number]) Physical Therapy Assessment Goals activities Short Term Goal (STG) Pt will b eable to sit as needed during day w/o inc R hip pain. 04/23-improved ;dec r hip pain w/sitting STG Duration achieved in hip but painful in back Hose Inspector And Patcher Goal (LTG) Pt will be able to go for short walks with AD w/o pain in hip greater than 05/15. 04/23-not tried 06/02-[place] w/sticks -07/15 in back; hip felt okay 06/23-unable since rhizotomy LTG Duration 08/25 balance Impairment ORDOÑEZ Impairment 33/56 Short Term Goal (STG) Pt will imrpove ORDOÑEZ score to at least 36 to show pt is a safe amulator w/AD. STG Duration achieved to 43 Hose Inspector And Patcher Goal (LTG) Pt will improve score to at least 46 to show safe ambular w/o AD and less likely to fall . 06/23-n/t d/t pt pain LTG Duration 08/25 One Impairment unable to reach overhead Short Term Goal (STG) Pt will be indep w/HEP STG Duration achieved advancing as aable Penit[facility]iary Goal (LTG) Pt will show improved strength by inc of all MMT by at least 1 full grade to allow improved ability to mobilize. 04/23-improving 06/02-achieed all but ext and ankle 06/23-n/t d/t pain today LTG Duration 08/25 Assessment Summary Assessment pt did well with exercises fro ROM and movement.S he is having severe pain after rhizotomy 2 weeks ago and was encouraged to follow up w/ performing MD. She is having more difficulty w/mvoement since this and will see what says when [facility] contacts them . Pain is 9/10 and pt is amb w /much less steady gait. Encoruaged to use walker an when comes for lab work to have help her w/WC. Cont PT to dec pain after pt touches base w/MD Physical Therapy Plan Frequency and Duration Frequency of Treatment 2x/wk Duration of treatment (weeks) 9 Plan of Care Start Date 06/23/22 Plan of Care End Date 08/25/22 Therapeutic Interventions Therapeutic Interventions Balance Training,Gait Training ,Home Exercise Program,Joint Mobilizations,Manual Therapy, Neuromuscular Re-education, Orthotic/Prosthetic Management ,Patient/Caregiver Education, Self-Care/Home Management,Soft Tissue Mobilization,Taping, Therapeutic Activities, Therapeutic Exercises Modalities Cold Pack/Ice Massage,Electric Stimulation,Hot Packs, Infrared Therapy,Ultrasound Next Visit Focus/Plan Next Note Type Treatment Note Next Visit Plan Continue PT per POC for strengthening, flexibility, manual techniques, ultrasound as indicated to dec right hip and buttock pain, improve her mobility in the home and community. [ End ]
--- NOTE | 2022-06-23 11:18 | PT.OPPOC ---
Physical, Occupational & Speech Therapy At [facility] Current Diagnoses Unilateral primary osteoarthritis, right hip (06/23/22) Trochanteric bursitis, right hip (06/23/22) Difficulty in walking, not elsewhere classified (06/23/22) Abnormal posture (06/23/22) Weakness (06/23/22) Visit Care Team Role Provider Type Ellie Fountain PA-C Family Provider Non-Staff Primary Care Provider Specialty: Medical Address: [address] [place] [address], [id number] Email: [email or web address] Eliazar Marshall MD Attending Provider Non-Staff Referring Provider Specialty: Orthopedic Surgery Address: [address] [place] [address], [id number] Email: Plan Of Care PT-OP-T Assessment and Plan Start: 03/11/22 13:38 Freq: Status: Active Protocol: Document 06/23/22 10:37 [facility] (Rec: 06/23/22 11:18 [facility] [id number]) Physical Therapy Assessment Goals activities Short Term Goal (STG) Pt will b eable to sit as needed during day w/o inc R hip pain. 04/23-improved ;dec r hip pain w/sitting STG Duration achieved in hip but painful in back Stewardess Supervisor Goal (LTG) Pt will be able to go for short walks with AD w/o pain in hip greater than 05/15. 04/23-not tried 06/02-[place] w/sticks -07/15 in back; hip felt okay 06/23-unable since rhizotomy LTG Duration 08/25 balance Impairment ORDOÑEZ Impairment 33/56 Short Term Goal (STG) Pt will imrpove ORDOÑEZ score to at least 36 to show pt is a safe amulator w/AD. STG Duration achieved to 43 Long-Term Goal (LTG) Pt will improve score to at least 46 to show safe ambular w/o AD and less likely to fall . 06/23-n/t d/t pt pain LTG Duration 08/25 One Impairment unable to reach overhead Short Term Goal (STG) Pt will be indep w/HEP STG Duration achieved advancing as aable Long-Term Goal (LTG) Pt will show improved strength by inc of all MMT by at least 1 full grade to allow improved ability to mobilize. 04/23-improving 06/02-achieed all but ext and ankle 06/23-n/t d/t pain today LTG Duration 08/25 Assessment Summary Assessment pt did well with exercises fro ROM and movement.S he is having severe pain after rhizotomy 2 weeks ago and was encouraged to follow up w/ performing MD. She is having more difficulty w/mvoement since this and will see what MD says when [facility] contacts them . Pain is 9/10 and pt is amb w /much less steady gait. Encoruaged to use walker an when comes for lab work to have help her w/WC. Cont PT to dec pain after pt touches base w/MD Physical Therapy Plan Frequency and Duration Frequency of Treatment 2x/wk Duration of treatment (weeks) 9 Plan of Care Start Date 06/23/22 Plan of Care End Date 08/25/22 Therapeutic Interventions Therapeutic Interventions Balance Training,Gait Training ,Home Exercise Program,Joint Mobilizations,Manual Therapy, Neuromuscular Re-education, Orthotic/Prosthetic Management ,Patient/Caregiver Education, Self-Care/Home Management,Soft Tissue Mobilization,Taping, Therapeutic Activities, Therapeutic Exercises Modalities Cold Pack/Ice Massage,Electric Stimulation,Hot Packs, Infrared Therapy,Ultrasound Next Visit Focus/Plan Next Note Type Treatment Note Next Visit Plan Continue PT per POC for strengthening, flexibility, manual techniques, ultrasound as indicated to dec right hip and buttock pain, improve her mobility in the home and community. [ End ] Plan of Care Dates Plan of Care Start Date 06/23/22 Plan of Care End Date 08/25/22 Electronically Signed by: Debbie Beyer, PT 06/23/22 7012 If you are in agreement with this Plan of Care, please return a signed and dated copy. I have reviewed this Plan of Care and certify that the skilled therapy services above are required to meet the patient?s needs. Physician Signature Date Printed Name and Credentials Clinical Instructor Signature Printed Name and Credentials
--- NOTE | 2022-06-30 08:42 | PT.OPDS ---
Current Diagnoses Unilateral primary osteoarthritis, right hip (06/23/22) Trochanteric bursitis, right hip (06/23/22) Difficulty in walking, not elsewhere classified (06/23/22) Abnormal posture (06/23/22) Weakness (06/23/22) Visit Care Team Role Provider Type Ellie Fountain PA-C Family Provider Non-Staff Primary Care Provider Specialty: Medical Address: [address] [place] [address], [id number] Email: [email or web address] Eliazar Marshall MD Attending Provider Non-Staff Referring Provider Specialty: Orthopedic Surgery Address: [address] [place] [address] , [place], [address] Email: Visit Number Visit Number 17 Discharge Summary PT-OP-B Current Condition Start: 03/11/22 13:38 Freq: Status: Active Protocol: Document 03/12/22 09:53 [facility] (Rec: 03/12/22 10:32 [facility] [id number]) Current Condition History of Current Condition Onset Date 2012 Current Complaints R hip pain History of Current Condition Pt fell and tore glute max & minimus in 2012 and possibly labrum. WHen it initially happened, RLE would let go and give out when walking, but the ortho didn't plan to do anything about it. That letting go happened for the first year. She has had buttocks pain that was on and off and when she had foot surgery and was in WC and R hip hurt a lot then. She also had a major back injury and has had mult back surgeries. She has MRI of hip today. She has had 2 steroid injections and the more recent one only helped for about a day. She has seen many pain specialists and sees a new one Wednesday. She has chronic back pain that does have different radiating patterns. Treatment Goals Patient/Caregiver Goals Get rid of pain in hip, improve walking-be able to do some short walks, improve balance PT-OP-C Subjective Start: 03/11/22 13:38 Freq: Status: Active Protocol: Document 06/23/22 10:37 [facility] (Rec: 06/23/22 11:18 [facility] [id number]) OP-PT Subjective Patient Comments Patient Comments 4/4 pt had a rhizotomy on both sides at SI. She has been having a lot of pain since. She has been requiring help w/ going to/from bathroom. Getting up is the worst. She was cleared to go to PT 1 week later. 9/10 pain constantly right now PT-OP-D Balance Start: 03/11/22 13:38 Freq: Status: Active Protocol: Document 06/02/22 15:22 [facility] (Rec: 06/02/22 17:20 [facility] [id number]) Balance Tests Ordoñez Balance Test Ordoñez Balance Test Score 41 PT-OP-F Manual Assessment Start: 03/11/22 13:38 Freq: Status: Active Protocol: Document 03/12/22 09:53 [facility] (Rec: 03/12/22 10:32 [facility] [id number]) Manual Assessments Soft Tissue Assessment Soft Tissue Mobility Assessment tightness: ITB, hip flexor, TFL, HS, glutes PT-OP-G Mobility & Gait Start: 03/11/22 13:38 Freq: Status: Active Protocol: Document 03/12/22 09:53 [facility] (Rec: 03/12/22 10:32 [facility] [id number]) OP Gait Assessment Comments Gait Comments Amb w/cane in L hand w/dec stance time on RLE and dec overall push off B PT-OP-J Posture/Palpation/Skin Start: 03/11/22 13:38 Freq: Status: Active Protocol: Document 03/12/22 09:53 [facility] (Rec: 03/12/22 10:32 [facility] [id number]) Posture Evaluation Comments Posture Comments inc kyphosis; fwd flexed at hip PT-OP-K Range of Motion Start: 03/11/22 13:38 Freq: Status: Active Protocol: Document 03/12/22 09:53 [facility] (Rec: 03/12/22 10:32 [facility] [id number]) Hip Goniometric Range of Motion Hip Right Active Flexion w/Knee Flexed 88 Abduction 21 Internal Rotation 12 External Rotation 21 Left Active Flexion w/Knee Flexed 105 Abduction 30 Internal Rotation 35 External Rotation 25 PT-OP-L Special Tests Start: 03/11/22 13:38 Freq: Status: Active Protocol: Document 03/12/22 09:53 [facility] (Rec: 03/12/22 10:32 [facility] [id number]) Special Tests Hip Special Tests Slump Test Results neg-HS tightness that doesn't inc w/cervical flex Straight Leg Raise Test Results R: 61; L:80 deg-HS tightness PT-OP-M Strength Start: 03/11/22 13:38 Freq: Status: Active Protocol: Document 06/02/22 15:22 [facility] (Rec: 06/02/22 17:20 [facility] [id number]) Hip Strength Hip Manual Muscle Testing Left Flexion (L2) 4 Good Extension (S1) 3+ Fair+ Abduction 4 Good Adduction 4 Good External Rotation 4- Good- Internal Rotation 5 Normal Right Flexion (L2) 4 Good Extension (S1) 3+ Fair+ Abduction 3 Fair Adduction 4- Good- External Rotation 4- Good- Internal Rotation 4 Good Comments back pain w/abd Knee Strength Knee Manual Muscle Testing Right Flexion (S2) 5 Normal Extension (L3) 4+ Good+ Left Flexion (S2) 5 Normal Extension (L3) 4+ Good+ Ankle/Foot Strength Ankle and Foot Manual Muscle Testing Right Dorsiflexion (L4) 4+ Good+ Plantarflexion (S1) 4+ Good+ Left Dorsiflexion (L4) 4+ Good+ Plantarflexion (S1) 4+ Good+ Comments PF tested seated B PT-OP-T Assessment and Plan Start: 03/11/22 13:38 Freq: Status: Active Protocol: Document 06/30/22 08:40 [facility] (Rec: 06/30/22 08:41 [facility] [id number]) Physical Therapy Assessment Goals activities Short Term Goal (STG) Pt will b eable to sit as needed during day w/o inc R hip pain. 04/23-improved ;dec r hip pain w/sitting STG Duration achieved in hip but painful in back Medical Charge Entry Specialist Goal (LTG) Pt will be able to go for short walks with AD w/o pain in hip greater than 05/15. 04/23-not tried 06/02-went long term around the block w/sticks -07/15 in back; hip felt okay 06/23-unable since rhizotomy LTG Duration 08/25 balance Impairment ORDOÑEZ Impairment 33/56 Short Term Goal (STG) Pt will imrpove ORDOÑEZ score to at least 36 to show pt is a safe amulator w/AD. STG Duration achieved to 43 Medical Charge Entry Specialist Goal (LTG) Pt will improve score to at least 46 to show safe ambular w/o AD and less likely to fall . 06/23-n/t d/t pt pain LTG Duration 08/25 One Impairment unable to reach overhead Short Term Goal (STG) Pt will be indep w/HEP STG Duration achieved advancing as aable [facility] Goal (LTG) Pt will show improved strength by inc of all MMT by at least 1 full grade to allow improved ability to mobilize. 04/23-improving 06/02-achieed all but ext and ankle 06/23-n/t d/t pain today LTG Duration 08/25 Assessment Summary Assessment Patient called to cancel remaining, MD has asked her to discontinue for the time being due to injection. She will return with new referral at later date. Pt did well w/ PT until recently after injectin werhe pain was much inc. She was initially cleared by pain med MD to return to PT after rhizotomy but d/t inc pain is now DC PT. Pt to get new referral when ready to reutrn. Physical Therapy Plan Discharge Physical Therapy Discharge Reasons Change in Medical Status
== END 2022-06-30 15:08 | disposition home or self-care (01) ==
LOC: PHYS 10:30
PROVIDERS: Family Provider Physician Assistant; PCP Physician Assistant; Referring Provider Orthopaedic Surgery; Visit Provider Orthopaedic Surgery
DX: M16.11 Unilateral primary osteoarthritis, right hip (principal); M70.61 Trochanteric bursitis, right hip; R53.1 Weakness; R26.2 Difficulty in walking, not elsewhere classified; R29.3 Abnormal posture
CPT/HCPCS: 97010; 97035; 97110; 97112; 97140; 97162; 97164

== ENCOUNTER → 2022-06-25 08:56 | Outpatient (CLI) | payer MEDICARE, SELFPAY ==
--- NOTE | 2022-06-25 09:00 | DI.RAD.S_ITS ---
PROCEDURE: XR SACRUM COCCYX MIN 2V INDICATIONS: SI joint pain s/p ablation TECHNIQUE: 3 views of the sacrum and coccyx acquired. COMPARISON: [facility], CR, XR PELVIS WITH LATERAL HIP RIGHT, 03/03/2022, 15:26. FINDINGS: Bones: No fractures or dislocations. No suspicious bony lesions. Postsurgical changes from L4 through S1 fusion with rods and pedicle screws present. Hardware appears intact. Soft tissues: Visualized bowel gas pattern is normal. No suspicious soft tissue densities. IMPRESSION: No acute osseous abnormality. If symptoms persist, follow-up radiographs and/or CT or MRI may be helpful for further evaluation. Dictated by: Sourav Meyer M.D. on 06/25/2022 at 11:26 Approved by: Sourav Meyer M.D. on 06/25/2022 at 11:36
[2022-06-25 11:00] LABS: Add Manual Diff / Slide Review NO; Basophils Absolute Auto 0 /uL (0-100); Basophils Percent Auto 0.6 % (0-2); Eosinophils Absolute Auto 100 /uL (0-450); Eosinophils Percent Auto 1.6 % (2-4); Hematocrit 37.8 % (36-46); Hemoglobin 12.6 g/dL (12.0-16.0); Lymphocytes Absolute Auto 1300 /uL (1100-4500); Mean Corpuscular HGB Conc 33.3 % (30-36); Mean Corpuscular Hemoglobin 31.4 PG (26-34); Mean Corpuscular Volume 94.4 fL (80-100); Monocytes Absolute Auto 400 /uL (0-900); Monocytes Percent Auto 10.6 % (3-14); Neutrophils Absolute Auto 1600 /uL (1500-7000); Neutrophils Percent Auto 48.2 % (50-75); Platelet Count 155 X10^3/uL (150-400); Red Blood Cell Count 4.01 X10^6/uL (4.0-5.2); Red Cell Distribution Width 15.9 % (11.6-14.8); White Blood Cell Count 3.3 X10^3/uL (4.5-11.0)
[2022-07-08 09:42] LABS: Pneumococcal AB IgG 23 serotyp 4.8
== END ==
PROVIDERS: PCP Family Medicine; Referring Provider Anesthesiology; Visit Provider Anesthesiology
DX: M53.3 Sacrococcygeal disorders, not elsewhere classified (principal); J45.20 Mild intermittent asthma, uncomplicated; M54.50 Low back pain, unspecified; G89.4 Chronic pain syndrome; Z98.1 Arthrodesis status
CPT/HCPCS: 36415; 72220; 85025; 99214

== ENCOUNTER 2022-08-05 07:30 | Outpatient (CLI) | payer MEDICARE, SELFPAY ==
[2022-08-05] VITALS (9 sets, daily range): BP systolic 118–150; BP diastolic 56–86; PULSE 51–56; RESP 17–23; TEMP 36.2; O2SAT 95–100
--- NOTE | 2022-08-05 07:32 | DI.RAD.S_ITS ---
PROCEDURE: PAIN L INTERLAMINAR/CAUDAL INJ INDICATIONS: LUMBAR RADICULOPATHY COMPARISON: None. FINDINGS: Fluoroscopic spot filming was performed to verify placement of spinal needles at the lower sacral level(s), as labeled on the films. Appropriate location(s) of the needle tip(s) was confirmed by injection of iodinated contrast. IMPRESSION: Fluoro guidance was provided intraoperatively for caudal epidural steroid injection performed by the ordering physician. Dictated by: Steven Johnson M.D. on 08/05/2022 at 12:53 Approved by: Steven Johnson M.D. on 08/05/2022 at 12:57
[2022-08-05] MEDS: BUPIVACAINE 0.25% (PF) VIAL 5 ML INJ (08:12)
[2022-08-05] MEDS: IOPAMIDOL 15 ML VIAL 3 ML INJ (08:12)
[2022-08-05] MEDS: methylPREDNISolone acetate 80 MG/ML VIAL INJ (08:12)
[2022-08-05] MEDS: MIDAZOLAM 2 MG/2 ML VIAL IV (08:13)
--- NOTE | 2022-08-05 08:27 | P.PCN_ITS ---
Date/Time/Diagnoses Date of procedure: 08/05/22 Time of procedure: 08:27 Procedure Notes Physician: Scar Soto Total Fluoroscopy time (seconds): 10 Total sedation minutes: 16 Procedure in detail & Post-procedure care: Caudal Epidural Steroid Injection Indications: Patsy is presenting for treatment of lumbar radiculopathy with low back and leg pain. Preoperative diagnosis: Bilateral lumbar radiculopathy Postoperative diagnosis: Same Focused Examination: Ax3 Mood and affect are normal Vital Signs: VSS ASA: 2 Consent: Following review of allergies and potential side effects/complications, including, but not necessarily limited to, infection, allergic reaction, local tissue breakdown, stroke, temporary or permanent nerve injury, paralysis, and possible , the patient indicated that they understood and agreed to proc eed.? An informed consent document was signed by the patient, witnessed by a nurse and placed in the patient's chart.? Additionally, other treatment options including medications and physical therapy were reviewed with the patient. All questions were answered. Site was then marked. Anesthesia: After review of previous anesthetic history and IV conscious sedation, the patient was deemed safe to proceed with today's procedure with IV conscious sedation. IV sedation was accomplished with midazolam 2 mg administered by the RN after order by Dr. Soto. Sedation was titrated to patient comfort during the course of the procedure. Patient remained responsive to all verbal commands. Position: Prone Monitoring: NIBP, Pulse oximetry, 3 lead EKG Needle used: 17 gauge Touhy with 19 gauge TheraCath Epidural Catheter Contrast: Isovue 300-M 2mL Injectate: Depomedrol 80mg with 0.25% bupivacaine 2 mL and normal saline 2 mL Technique: The skin was prepped with chloraprep and then draped in a sterile fashion. Time out was performed as per protocol. Oxygen applied via NC. The entry point for entering/approaching the epidural space by a caudal approach through the sacral hiatus was identified. Skin and subcutaneous structures of the needle entry site was then infiltrated with 3 mL of lidocaine 1%. Under AP and lateral control, the needle was guided through the sacral hiatus to the L5- S1. Contrast was then injected and the spread was consistent with the epidural space. There was no evidence for intravascular or intrathecal uptake. After negative aspiration, the above-mentioned injectate was then slowly administered and the needle withdrawn. The patient expressed no unusual discomfort or paresthesias during needle positioning or injection. Band-Aids applied to injection sites. EBL: less than 1 ml Complications: None Post Procedure: Patient was taken to the recovery and monitored. The patient was provided a Pain Log to continue to record the patient's response to the target- specific procedure prior to the patient's follow-up visit with the referring physician. Patient was stable upon discharge. Detailed post procedure instructions were provided. Patient was asked to call in the event of worsening pain, fever, weakness, numbness or bladder or bowel incontinence.
== END 2022-08-05 08:47 | disposition home or self-care (01) ==
LOC: RAD 07:31
PROVIDERS: PCP Family Medicine; Referring Provider Anesthesiology; Visit Provider Anesthesiology
DX: M54.16 Radiculopathy, lumbar region (principal)
CPT/HCPCS: 62323; 82962; 99152; J1040; J2250; J3490

== ENCOUNTER → 2022-08-12 13:49 | Outpatient (CLI) | payer MEDICARE, SELFPAY ==
[2022-08-12 15:52] LABS: Add Manual Diff / Slide Review NO; Basophils Absolute Auto 0 /uL (0-100); Basophils Percent Auto 0.8 % (0-2); Eosinophils Absolute Auto 0 /uL (0-450); Eosinophils Percent Auto 1.3 % (2-4); Hematocrit 36.1 % (36-46); Hemoglobin 12.3 g/dL (12.0-16.0); Lymphocytes Absolute Auto 1500 /uL (1100-4500); Lymphocytes Percent Auto 41.2 % (25-40); Mean Corpuscular HGB Conc 34.2 % (30-36); Mean Corpuscular Hemoglobin 33.1 PG (26-34); Monocytes Absolute Auto 400 /uL (0-900); Monocytes Percent Auto 11.1 % (3-14); Neutrophils Absolute Auto 1700 /uL (1500-7000); Neutrophils Percent Auto 45.6 % (50-75); Platelet Count 172 X10^3/uL (150-400); Red Blood Cell Count 3.72 X10^6/uL (4.0-5.2); Red Cell Distribution Width 15.3 % (11.6-14.8); White Blood Cell Count 3.7 X10^3/uL (4.5-11.0)
[2022-08-12 16:11] LABS: Alanine Aminotransferase 34 IU/L (<35); Albumin 4.3 g/dL (3.5-5.0); Albumin Globulin Ratio 1.9 (1.0-2.8); Alkaline Phosphatase 50 U/L (38-126); Aspartate Aminotransferase 27 IU/L (14-36); Bilirubin Total 0.9 mg/dL (0.2-1.3); Blood Urea Nitrogen 29 mg/dL (7-17); Calcium 9.3 mg/dL (8.4-10.2); Carbon Dioxide 28 mmol/L (22-32); Chloride 101 mmol/L (98-107); Estimated Glomerular Filt Rate 60 mL/min (>60); Globulin 2.3 g/dL (1.7-4.1); Glucose 91 mg/dL (80-110); HEMOLYSIS < 15 (0-50); Potassium 4.8 mmol/L (3.4-5.1); Sodium 134 mmol/L (137-145); Total Protein 6.6 g/dL (6.3-8.2)
== END ==
PROVIDERS: PCP Family Medicine; Referring Provider Internal Medicine Rheumatology; Visit Provider Internal Medicine Rheumatology
DX: M06.09 Rheumatoid arthritis without rheumatoid factor, multiple sites (principal); Z79.899 Other long term (current) drug therapy; Z79.52 Long term (current) use of systemic steroids
CPT/HCPCS: 36415; 80053; 85025

== ENCOUNTER → 2022-08-20 11:47 | Outpatient (CLI) | payer MEDICARE, SELFPAY ==
--- NOTE | 2022-08-20 11:48 | DI.MG.S_ITS ---
UNILATERAL RIGHT DIGITAL DIAGNOSTIC MAMMOGRAM 3D/2D: 08/20/2022 CLINICAL: Short term follow up of the right breast. Comparison is made to exams dated: 02/06/2022 ultrasound, 02/06/2022 mammogram, 01/07/2022 mammogram, and 10/26/2020 mammogram - [facility]. The right breast is heterogeneously dense, which may obscure small masses (category c / 51-75% glandular tissue). There is an asymmetry in the right breast anterior depth central to the nipple seen on the craniocaudal view only. This is not significantly changed and was not seen on the prior ultrasound. No other significant masses or calcifications are seen in the breast. IMPRESSION: PROBABLY BENIGN The asymmetry in the right breast most likely is fibroglandular tissue and is probably benign. A follow-up mammogram in 6 months is recommended to demonstrate stability. Exam findings were conveyed to the patient. Based on the Tyrer Cuzick model (a risk assessment model) the patient's lifetime risk is 7.0% and her 10 year risk is 5.2%. According to the ACR, ACS, and NCCN guidelines, an annual breast MRI exam along with mammogram is recommended if the patient's lifetime risk is 20% or greater. This exam was interpreted at Station ID: [id number]. NOTE: For mammograms, a report in lay terms will be sent to the patient. Approximately 15% of breast malignancies will not be visualized mammographically. In the management of a palpable breast mass, a negative mammogram must not discourage biopsy of a clinically suspicious lesion. Electronically Signed By: Gunnar Avila M.D. [facility] [place]/:08/20/2022 12:13:27 copy to: Justin Gayle letter sent: Followup Recommended ACR BI-RADS Category 3: Probably benign [id number]
== END ==
PROVIDERS: PCP Family Medicine; Referring Provider Family Medicine; Visit Provider Family Medicine
DX: R92.8 Other abnormal and inconclusive findings on diagnostic imaging of breast (principal); N64.89 Other specified disorders of breast
CPT/HCPCS: 77065; G0279

== ENCOUNTER → 2022-09-02 11:00 | Outpatient (CLI) | payer MEDICARE, SELFPAY ==
--- NOTE | 2022-09-02 11:01 | DI.RAD.S_ITS ---
PROCEDURE: XR KNEE RT 3V INDICATIONS: Knee pain s/p fall TECHNIQUE: 3 views of the knee were acquired. COMPARISON: [facility], CR, XR KNEE LT 3V, 09/02/2022, 11:07. FINDINGS: Bones: No fractures or dislocations. No suspicious bony lesions. Femoral and tibial knee replacement components are appropriately positioned. No evidence of fracture. Possible suprapatellar loose bodies noted. There is medial patellar tilt on the sunrise view Soft tissues: No joint effusion. No suspicious soft tissue calcifications. IMPRESSION: No evidence of fracture or hardware failure. Possible intra-articular loose bodies Approved by: Matt Torres M.D. on 09/02/2022 at 18:24
--- NOTE | 2022-09-02 11:01 | DI.RAD.S_ITS ---
PROCEDURE: XR KNEE LT 3V INDICATIONS: Knee pain s/p fall TECHNIQUE: 3 views of the knee were acquired. COMPARISON: None. FINDINGS: Bones: No fractures or dislocations. No suspicious bony lesions. Total left knee prosthesis in good position. There is patellar tilt in the sunrise view. No evidence of fracture or hardware failure Soft tissues: No joint effusion. No suspicious soft tissue calcifications. IMPRESSION: No evidence of fracture or hardware failure Approved by: Matt Torres M.D. on 09/02/2022 at 18:26
== END ==
PROVIDERS: PCP Family Medicine; Referring Provider Anesthesiology; Visit Provider Anesthesiology
DX: M25.561 Pain in right knee (principal); M25.562 Pain in left knee; Z96.653 Presence of artificial knee joint, bilateral
CPT/HCPCS: 73562

== ENCOUNTER → 2022-09-18 13:40 | Outpatient (CLI) | payer MEDICARE, SELFPAY ==
[2022-09-18 15:32] LABS: TSH w/ Reflex to FT4 2.22 uIU/mL (0.47-4.68)
[2022-09-18 15:50] LABS: Vitamin B12 929 pg/mL (239-931)
[2022-09-18 16:08] LABS: Vitamin D 25 Hydroxy (D3) 45.6 ng/mL (30.0-100.0)
== END ==
PROVIDERS: PCP Family Medicine; Referring Provider Family Medicine; Visit Provider Family Medicine
DX: G62.9 Polyneuropathy, unspecified (principal)
CPT/HCPCS: 36415; 82306; 82607; 84443

== ENCOUNTER 2022-09-30 08:01 | Outpatient (CLI) | payer MEDICARE, SELFPAY ==
[2022-09-30] VITALS (9 sets, daily range): BP systolic 122–170; BP diastolic 59–89; PULSE 52–58; RESP 11–20; TEMP 36.2; O2SAT 41–99
--- NOTE | 2022-09-30 08:02 | DI.RAD.S_ITS ---
PROCEDURE: PAIN L INTERLAMINAR/CAUDAL INJ INDICATIONS: SPONDYLOSIS COMPARISON: [facility], , PAIN L INTERLAMINAR/CAUDAL INJ, 08/05/2022, 8:11. FINDINGS: A caudally placed catheter is seen within the sacral canal. The position of the tip of the catheter was confirmed with injection of a small amount of iodinated contrast. IMPRESSION: Intraprocedural examination within normal limits. Dictated by: Grayson Dyson M.D. on 09/30/2022 at 12:49 Approved by: Grayson Dyson M.D. on 09/30/2022 at 12:49
[2022-09-30] MEDS: MIDAZOLAM 2 MG/2 ML VIAL IV (08:42)
[2022-09-30] MEDS: IOPAMIDOL 15 ML VIAL 3 ML INJ (08:48)
[2022-09-30] MEDS: DEXAMETHASONE 10 MG/ML VIAL INJ (08:48)
--- NOTE | 2022-09-30 12:17 | P.PCN_ITS ---
Date/Time/Diagnoses Date of procedure: 09/30/22 Time of procedure: 08:30 Procedure Notes Physician: Scar Soto Total Fluoroscopy time (seconds): 30 Total sedation minutes: 22 Procedure in detail & Post-procedure care: Caudal Epidural Steroid Injection Indications: Patsy is presenting for treatment of lumbar radiculopathy with low back and leg pain. Preoperative diagnosis: Lumbar radiculopathy Postoperative diagnosis: Same Focused Examination: Ax3 Mood and affect are normal Vital Signs: VSS ASA: 3 Consent: Following review of allergies and potential side effects/complications, including, but not necessarily limited to, infection, allergic reaction, local tissue breakdown, stroke, temporary or permanent nerve injury, paralysis, and possible , the patient indicated that they understood and agreed to proceed.? An informed consent document was signed by the patient, witnessed by a nurse and placed in the patient's chart.? Additionally, other treatment options including medications and physical therapy were reviewed with the patient. All questions were answered. Site was then marked. Anesthesia: After review of previous anesthetic history and IV conscious sedation, the patient was deemed safe to proceed with today's procedure with IV conscious sedation. IV sedation was accomplished with midazolam 2 mg administered by the RN after order by Dr. Soto. Sedation was titrated to pa tient comfort during the course of the procedure. Patient remained responsive to all verbal commands. Position: Prone Monitoring: NIBP, Pulse oximetry, 3 lead EKG Needle used: 25 gauge, 3.5 in spinal Contrast: Isovue 300-M 2mL Injectate: Dexamethasone 10 mg with 1% lidocaine 2 mL and normal saline 2 mL Technique: The skin was prepped with chloraprep and then draped in a sterile fashion. Time out was performed as per protocol. Oxygen applied via NC. The entry point for entering/approaching the epidural space by a caudal approach through the sacral hiatus was identified. Skin and subcutaneous structures of the needle entry site was then infiltrated with 3 mL of lidocaine 1%. Under AP and lateral control, the needle was guided through the sacral hiatus to the S3 level. Contrast was then injected and the spread was consistent with the epidural space. There was no evidence for intravascular or intrathecal uptake. After negative aspiration, the above-mentioned injectate was then slowly administered and the needle withdrawn. The patient expressed no unusual discomfort or paresthesias during needle positioning or injection. Band-Aids applied to injection sites. EBL: less than 1 ml Complications: None Post Procedure: Patient was taken to the recovery and monitored. The patient was provided a Pain Log to continue to record the patient's response to the target- specific procedure prior to the patient's follow-up visit with the referring physician. Patient was stable upon discharge. Detailed post procedure instructions were provided. Patient was asked to call in the event of worsening pain, fever, weakness, numbness or bladder or bowel incontinence.
== END 2022-09-30 09:18 | disposition home or self-care (01) ==
PROVIDERS: Family Provider Family Medicine; PCP Family Medicine; Referring Provider Anesthesiology; Visit Provider Anesthesiology
DX: M54.16 Radiculopathy, lumbar region (principal)
CPT/HCPCS: 62323; 99152; J1100; J2250

== ENCOUNTER 2022-10-05 10:02 | Emergency (ER) | payer MEDICARE, SELFPAY ==
[2022-10-05 10:05] VITALS: BP 147/67; PULSE 60; RESP 17; TEMP 36.6; O2SAT 96; BMI 34.0
--- NOTE | 2022-10-05 10:15 | DI.RAD.S_ITS ---
PROCEDURE: XR LUMBAR SPINE 2-3V INDICATIONS: fall with back pain TECHNIQUE: 3 views of the lumbar spine were acquired. COMPARISON: [facility] [place], CR, XR LUMBAR SPINE WITH OBLIQUES PLUS FLEXION EXTENSION, 08/19/2021, 15:44. [facility], CR, XR LUMBAR SPINE MIN 4V, 08/11/2019, 11:02. FINDINGS: Bones: 5 [id number] vertebrae are present. Chronic left lateral subluxation L3 on four. Chronic grade 1 anterolisthesis L3-4. Possibly new mild superior endplate scalloping of L2. No disruption of the posterior column. Fusion hardware from L4 through S1 appears intact. There is stable lower lumbar alignment.. No suspicious bony lesions. Soft tissues: Overlying bowel gas pattern is normal. Mildly increased quantity of stool. Cholecystectomy clips. No suspicious soft tissue calcifications. IMPRESSION: 1. Possible acute superior endplate scalloping of L2. 2. Chronic L3 on four anterolateral subluxation. 3. Intact L4 through S1 fusion hardware. Dictated by: Yolette De Paz M.D. on 10/05/2022 at 11:06 Approved by: Yolette De Paz M.D. on 10/05/2022 at 11:11
--- NOTE | 2022-10-05 10:15 | DI.RAD.S_ITS ---
PROCEDURE: XR THORACIC SPINE 3V INDICATIONS: fall with back pain TECHNIQUE: 3 views of the thoracic spine were acquired. COMPARISON: None. FINDINGS: Bones: Moderate midthoracic dextroscoliosis at the T6-7 level. Chronic appearing asymmetric left-sided T6 vertebral body and T6-7 disc height loss. No other visible thoracic vertebral body fractures. Possible acute L2 superior endplate depression.. No suspicious bony lesions. 12 pairs of ribs are noted, and appear intact where visualized. Soft tissues: No paravertebral stripe thickening. IMPRESSION: 1. No definite acute thoracic spine fractures. 2. Possible acute L2 superior endplate fracture. Paragraph 3. Moderate midthoracic dextroscoliosis. Dictated by: Yolette De Paz M.D. on 10/05/2022 at 11:11 Approved by: Yolette De Paz M.D. on 10/05/2022 at 11:13
--- NOTE | 2022-10-05 11:02 | ED_ITS ---
HPI - Back Pain/Injury General Chief Complaint: Back Pain/Injury Stated Complaint: fall on Sat night, back pain Time Seen by Provider: 10/05/22 10:06 Source: patient and family History of Present Illness HPI Narrative: 71-year-old female nonsmoker with history of asthma presents for evaluation of back pain after a fall over the weekend. She is had problems with her back and SI joints for years and has an excellent group of orthopedist and pain doctors helping her through. She was walking on a ramp in her backyard and lost her balance and fell over onto her side and hurt her upper and lower back in a twisting motion when she fell. She did not have a direct impact on the bones of her thoracic, lumbar spine. She denies any new numbness, tingling or weakness. She denies any trouble breathing. She denies any head or neck injury. Related Data Home Medications Medication Instructions Recorded Confirmed calcium carbonate 600 mg-vitamin 1 cap PO QPM ##0 02/04/17 10/01/22 D3 10 mcg (400 unit) capsule (Calcium 600 with Vitamin D3) Adult One Daily Multivitamin 1 tab DAILY 10/16/18 10/01/22 escitalopram oxalate 20 mg tablet 20 mg PO DAILY 11/18/20 10/01/22 (Lexapro) folic acid 1 mg tablet 1 mg DAILY 11/18/20 10/01/22 atorvastatin 40 mg tablet 40 mg PO DAILY 03/16/22 10/01/22 cyclosporine 0.05 % eye drops in a drp EYE-BOTH BID 03/16/22 10/01/22 dropperette (Restasis) insulin syringe-needle U-100 1 mL #10 ea 03/16/22 10/01/22 30 gauge x 1/2 (BD Insulin Syringe Ultra-Fine) methotrexate sodium 25 mg/mL 35 mg SUBCUT 03/16/22 10/01/22 injection solution metoprolol succinate 100 mg 100 mg PO DAILY 03/16/22 10/01/22 tablet,extended release 24 hr omega 1-llm-bte-fish oil 60 mg-90 1 cap PO BID 03/16/22 10/01/22 mg-500 mg capsule (Fish Oil) sodium chloride 5 % eye drops drp EYE-BOTH TID 03/16/22 10/01/22 azelastine 137 mcg (0.1 %) nasal ml intranasal 04/21/22 10/01/22 spray aerosol fluticasone propionate 110 1 puff inhalation BID 04/21/22 10/01/22 mcg/actuation HFA aerosol inhaler (Flovent HFA) methocarbamol PO PRN 04/21/22 10/01/22 nystatin 100,000 unit/gram topical 1 applic topical BID 04/21/22 10/01/22 cream pantoprazole 20 mg tablet,delayed 20 mg PO DAILY 05/20/22 10/01/22 release tocilizumab 162 mg/0.9 mL 162 mg SUBCUT QWEEK 09/18/22 10/01/22 subcutaneous pen injector (Actemra ACTPen) Previous Rx's Medication Instructions Recorded losartan 25 mg tablet See Rx Instructions .Route 08/12/22 .COMPLEX #90 tabs methylprednisolone 4 mg tablets in See Rx Instructions PO PER PKG DIR 08/12/22 a dose pack (Medrol (Virgilio)) radiculopathy #21 ea oxycodone-acetaminophen 5 mg-325 1 tab PO Q8H PRN pain #60 tabs 09/18/22 mg tablet zolpidem 10 mg tablet 5 mg PO BEDTIME #45 tabs 09/18/22 ciprofloxacin HCl 500 mg tablet 500 mg PO ONCE #2 tabs 10/01/22 (Cipro) pregabalin 100 mg capsule (Lyrica) 200 mg PO BID #120 caps 10/01/22 ketorolac 10 mg tablet 10 mg PO Q6H PRN pain #14 tabs 10/05/22 Allergies Allergy/AdvReac Type Severity Reaction Status Date / Time clindamycin [CLINDAMYCIN] Allergy Intermediate ITCHING Verified 10/05/22 10:21 Penicillins [PENICILLINS] Allergy Unknown HIVES AND Verified 10/05/22 10:21 ITCHING (HAPPENED WHEN SHE WAS 7 YRS OLD) Review of Systems Review of Systems Narrative: GENERAL: Denies chills, fatigue, malaise, fever, sweats. HEENT: Denies sinus pain, ear pain, sore throat, difficulty swallowing, dizziness. RESPIRATORY: Denies dyspnea, cough, wheezing, hemoptysis, sputum. CARDIOVASCULAR: Denies chest pain, palpitations, orthopnea, edema, GASTROINTESTINAL: Denies nausea, vomiting, abdominal pain, diarrhea, constipation, melena. : Denies dysuria, frequency, incontinence, hematuria, urinary retention. MUSCULOSKELETAL: See HPI SKIN: Denies rash, skin lesions, or other NEUROLOGIC: Denies weakness, headache, numbness, change in speech, confusion, seizures, incoordination. PSYCHIATRIC: No concerning psychosocial issues. 12 point review of systems is negative except for those stated above Patient History Medical History Asthma (~1990) Asthmatic bronchitis Balance problem Benign essential HTN Carpal tunnel syndrome (~2010) Cervical spine disease (~1979) Chronic back pain Chronic bilateral low back pain with bilateral sciatica Chronic cough Chronic pain syndrome Depression (~1986) DVT (deep venous thrombosis) (~2000) Fractures GERD (gastroesophageal reflux disease) (~1997) Knee pain Low back pain Lumbar radiculopathy Lumbar spine pain (~1979) Lumbosacral spondylosis Lymphocytic colitis (~2019) Obesity (BMI 30.0-34.9) Osteoarthritis (~1979) Peripheral neuropathy Pulmonary embolism (~2000) Right hip pain Sacroiliac joint dysfunction Scoliosis (~1949) Seronegative rheumatoid arthritis (~2011) Shoulder pain Spondylolisthesis Tinnitus Surgical History Anesthesia H/O eye surgery (02/05/1958) H/O total hysterectomy (05/06/00) History of arthroscopic knee surgery (~05/07/79) History of carpal tunnel surgery (~06/06/13) History of cataract removal with insertion of prosthetic lens (~04/08/21) History of cholecystectomy (02/05/98) History of foot surgery History of knee surgery (05/05/10) History of left knee surgery (~05/06/77) History of left shoulder replacement (02/16/19) History of plastic surgery (~07/30/04) 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) History of uterine fibroid (~08/07/91) Hx of spinal fusion (10/09/18) Hx of tonsillectomy (07/27/1967) Patellar fracture (~04/18/09) S/P foot surgery, left (~02/16/18) S/P removal of ovarian cyst (~09/05/77) Status post left rotator cuff repair (~04/01/08) Status post right rotator cuff repair (~05/05/07) Temporomandibular joint disorder (~03/08/77) Family History Father History of heart disease Hypertension Hyperlipidemia Mother COPD (chronic obstructive pulmonary disease) Brother COPD (chronic obstructive pulmonary disease) Brother Hyperlipidemia Hypertension Grandfather History of heart disease Grandmother COPD (chronic obstructive pulmonary disease) Asthma Grandfather History of heart disease Grandmother Flu Social History Smoking Status: Never smoker alcohol intake: never substance use type: does not use Smoking Status: Never smoker alcohol intake frequency: 0-2 drinks per day Substance Use Type: does not use Exam Narrative Exam Narrative: GENERAL: [71] year old patient appears stated age. Well-developed patient, in mild distress. HEAD: Atraumatic. Normocephalic. EYES: Pupils equal round and reactive. Extraocular motions intact. No scleral icterus. No injection or drainage. ENT: Nose without bleeding, purulent drainage. Throat without erythema, tonsillar hypertrophy or exudate. Airway patent. NECK: Trachea midline. Non tender CARDIOVASCULAR: Regular rate and rhythm without murmurs, gallops, or rubs. RESPIRATORY: Clear to auscultation. Breath sounds equal bilaterally. No wheezes, rales, or rhonchi. GASTROINTESTINAL: Abdomen soft, non-tender, nondistended. EXTREMITIES: No edema or joint tenderness. BACK: roping machine tender but free of any obvious external abnormalities. Patient exam notes decreased range of motion and muscle spasm, but no CVA tenderness, or vertebral point tenderness. There are no symptoms of cauda equina such as saddle anesthesia, and decreased reflexes, decreased sensation or strength. NEURO: AOx3. SKIN: No rash or erythema of visible areas Initial Vital Signs Initial Vital Signs: Vital Signs Temperature 97.9 F 10/05/22 10:05 Pulse Rate 60 10/05/22 10:05 Respiratory Rate 17 10/05/22 10:05 Blood Pressure 147/67 H 10/05/22 10:05 Pulse Oximetry 96 10/05/22 10:05 Oxygen Delivery Method Room Air 10/05/22 10:05 Course Orders Ordered: ED Orders 10/05/22 10:15 XR lumbar spine 2-3V Stat XR thoracic spine 3V Stat Vital Signs Vital signs: Vital Signs - 8 hr 10/05/22 10:05 Temperature 97.9 F Pulse Rate 60 Respiratory Rate 17 Blood Pressure 147/67 H Pulse Oximetry 96 Oxygen Delivery Method Room Air MDM - Back Pain/Injury Lab Data Labs: Urine Dip Bedside Urine Glucose Negative Bedside Urine Bilirubin - Negative Bedside Urine Ketone - Negative Urine Specific [place] 1.010 Bedside Urine Occult Blood - Negative Bedside Urine pH 6.5 Bedside Urine Protein - Negative Bedside Urine Urobilinogen - Negative Bedside Urine Nitrite - Negative Bedside Urine Leukocytes - Negative Esterase MDM Narrative Medical decision making narrative: [71] year old patient presents with Upper and lower back pain after fall Multiple etiologies for patient's symptoms considered including, but not limited to: [ fracture versus dislocation versus muscle spasm versus contusion versus inflammation] Prior Charts reviewed in our EMR Imaging reviewed: lumbar spine notes a possible acute endplate scalloping of L2, T-spine demonstrates no acute thoracic spine fracture Patient's symptoms improved over duration of stay with above-stated therapies. Findings and discharge diagnosis discussed with patient/family followed by verbalization of understanding Return precautions discussed with patient/family whom verbalize understanding of diagnosis and plan Discharge Plan Departure Patient Disposition: Home Clinical Impression: Back pain Instructions: DI for Muscle Strain Activity Restrictions/Additional Instructions: *You have been diagnosed with [ fall with back pain. As we discussed the x- rays of your thoracic and lumbar spine are largely very reassuring, they did make mention of the possibility of a small abnormality at the corner of L2 but as we discussed this would not change the plan and has no specific treatment other than pain control ] *What to do: *Please continue to take your regular medications as directed. [x ] New medication prescriptions sent to your pharmacy: [[facility]] [ ] New medication written as a paper prescription [ ] No new medications given *Please follow up with your primary care provider in 2-3 days, call for an appointment. Let them know you were seen in the Emergency Department and that we ask that you be seen in follow up. We will electronically transmit a record of today's note if your PCP is in our system *If you do not have a primary care provider please contact the [facility] Resource line at [phone]. They will ask some questions about your medical history and help get you set up with a doctor in the community. *Return to Emergency Department if you should have any new, worsening or concerning symptoms, such as [fever greater than 101 F, shaking chills, worsening pain, persistent vomiting or other bothersome symptoms] Prescriptions: New ketorolac 10 mg tablet 10 mg PO Q6H PRN (Reason: pain) Qty: 14 0RF No Action calcium carbonate-vitamin D3 [Calcium 600 with Vitamin D3] 600 mg(1,500mg) - 400 unit capsule 1 cap PO QPM Qty: 0 methylprednisolone [Medrol (Virgilio)] 4 mg tablets,dose pack See Rx Instructions PO PER PKG DIR Qty: 21 0RF Rx Instructions: PO PER PKG DIR losartan 25 mg tablet See Rx Instructions .ROUTE .COMPLEX Qty: 90 3RF Dose Instruction: TAKE 1 TABLET BY MOUTH DAILY Rx Instructions: TAKE 1 TABLET BY MOUTH DAILY Actemra ACTPen 162 mg/0.9 mL pen injector 162 mg SUBCUT QWEEK Patient Comments: [NO ORIGINAL SIG] zolpidem 10 mg tablet 5 mg PO BEDTIME Qty: 45 3RF oxycodone-acetaminophen 5-325 mg tablet 1 tab PO Q8H PRN (Reason: pain) Qty: 60 0RF fluticasone propionate [Flovent HFA] 110 mcg/actuation HFA aerosol inhaler 1 puff inhalation BID azelastine 137 mcg (0.1 %) aerosol,spray intranasal methocarbamol PO PRN nystatin 100,000 unit/gram cream 1 applic topical BID pregabalin [Lyrica] 100 mg capsule 200 mg PO BID Qty: 120 5RF ciprofloxacin HCl [Cipro] 500 mg tablet 500 mg PO ONCE Qty: 2 2RF Rx Instructions: prior to dental procedure Adult One Daily Multivitamin 1 tab DAILY folic acid 1 mg Tablet 1 mg DAILY escitalopram oxalate [Lexapro] 20 mg Tablet 20 mg PO DAILY pantoprazole 20 mg tablet,delayed release (DR/EC) 20 mg PO DAILY atorvastatin 40 mg tablet 40 mg PO DAILY metoprolol succinate 100 mg tablet extended release 24 hr 100 mg PO DAILY Patient Comments: TAKE 1 TABLET BY MOUTH DAILY (DME) insulin syringe-needle U-100 [BD Insulin Syringe Ultra-Fine] 1 mL 30 gauge x 1/2 syringe See Rx Instructions .ROUTE .MEDSUPPLY Qty: 10 Patient Comments: USE 1 SYRINGE ONCE A WEEK Rx Instructions: As directed methotrexate sodium 25 mg/mL solution 35 mg SUBCUT cyclosporine [Restasis] 0.05 % dropperette EYE-BOTH BID sodium chloride 5 % drops EYE-BOTH TID omega 7-iix-mzk-fish oil [Fish Oil] 60-90-500 mg capsule 1 cap PO BID Referrals: Nai Arita DO [Primary Care Provider] - Stand Alone Forms: Patient Portal/API
[2022-10-05] MEDS: LIDOCAINE PATCH 1 EACH ADH..PATCH TOP (11:34)
[2022-10-05 11:50] VITALS: BP 140/65; PULSE 58; RESP 18; O2SAT 95
== END 2022-10-05 11:50 | disposition home or self-care (01) ==
PROVIDERS: Emergency Provider Emergency Medicine; Family Provider Family Medicine; PCP Family Medicine
DX: M54.6 Pain in thoracic spine (principal); M54.50 Low back pain, unspecified; W18.30XA Fall on same level, unspecified, initial encounter
CPT/HCPCS: 72072; 72100; 81003; 99282; 99283

== ENCOUNTER → 2022-10-12 15:47 | Outpatient (CLI) | payer MEDICARE, SELFPAY ==
--- NOTE | 2022-10-12 15:48 | DI.MRI.S_ITS ---
PROCEDURE: MR LUMBAR SPINE WO CON INDICATIONS: Recent fall, L2 deformity on XR TECHNIQUE: Noncontrast sagittal T1 spin echo and T2 fast echo, sagittal STIR, and T2 fast spin echo through the lumbar spine. In cases with scoliosis, additional coronal T2 fast spin echo may be performed. COMPARISON: [facility], MR, MR LUMBAR SPINE WO CON, 07/15/2020, 9:32. [facility], MR, MR LUMBAR SPINE WO CON, 07/12/2018, 17:56. [facility], CR, XR LUMBAR SPINE 2-3V, 10/05/2022, 10:32. [facility], MR, MR LUMBAR SPINE WO CON, 01/08/2022, 16:49. FINDINGS: Image quality: There is artifact associated with the metallic hardware. Alignment and Curvature: There is normal bony alignment. Bone Marrow: Marrow is of normal overall signal. There is an L2 compression deformity seen, with increased STIR signal seen at the superior endplate. Approximately 30% loss of height can be seen centrally. No posterior displacement fracture fragments. Spinal Cord: Conus medullaris terminates at the L1 level. Visualized cord demonstrates normal signal and size. Paraspinous Soft Tissues: No paravertebral masses. Postoperative changes are seen, with bilateral pedicle screws at the L4, L5, and S1 levels. Vertical fixation rods are seen. There is a disc spacer seen at the L5-S1 level. Postoperative changes are seen posteriorly, within expected amount of edema. No suspicious fluid collections are seen. T12-L1: Normal appearance. L1-L2: Normal appearance. L2-L3: No significant abnormality is seen. L3-L4: There is at least moderate loss of disc height and disc signal seen. Reactive marrow endplate changes are seen, which demonstrate mixed T1 weighted and T2-weighted signal, and are attributed to a combination of edema and fatty metaplasia (Modic type I and Modic type II changes). At least moderate disc bulge is seen, which is eccentric to the right. There is a central disc extrusion seen, as on series 4, image 10. At least moderate facet hypertrophy can be seen. There is moderate to severe right-sided and at least moderate left-sided neural foraminal narrowing. There is a degree of compression seen upon the exiting nerve roots. Moderate to severe central canal narrowing is seen at this level. When comparison is made with the prior images, these findings are similar. L4-L5: Postoperative change is seen at this level. Mild to moderate disc bulge is seen, with a mild central disc protrusion. Moderate facet joint hypertrophy is seen. Minimal bilateral neural foraminal narrowing can be seen. The central canal is widely patent. Stable from the prior study. L5-S1: There are postoperative changes seen at this level. Mild to moderate disc bulge is seen, with a mild central disc protrusion. At least moderate facet hypertrophy can be seen. There is moderate left-sided and mild right-sided neural foraminal narrowing. Mild central canal narrowing is seen. When comparison is made with the prior images, these findings are similar. IMPRESSION: Subacute L2 compression deformity, with approximately 30% loss height centrally. No posterior displacement fracture fragments can be seen. L4 through S1 postoperative hardware. Multiple levels of lumbar spine degenerative change can be seen, which are worst at the L3-L4 level. Dictated by: Grayson Dyson M.D. on 10/13/2022 at 10:41 Approved by: Grayson Dyson M.D. on 10/13/2022 at 10:46
== END ==
PROVIDERS: Family Provider Family Medicine; PCP Family Medicine; Referring Provider Anesthesiology; Visit Provider Anesthesiology
DX: M47.816 Spondylosis without myelopathy or radiculopathy, lumbar region (principal); M43.8X6 Other specified deforming dorsopathies, lumbar region; M54.50 Low back pain, unspecified; M54.9 Dorsalgia, unspecified; Z91.81 History of falling; Z98.1 Arthrodesis status
CPT/HCPCS: 72148

== ENCOUNTER → 2022-10-29 09:19 | Outpatient (CLI) | payer MEDICARE, SELFPAY ==
--- NOTE | 2022-10-29 | DI.CT.S_ITS ---
PROCEDURE: CT LUMBAR SPINE WO CON INDICATIONS: Radiculopathy, lumbar region TECHNIQUE: Noncontrast 3 mm thick sections acquired from the T12 level to the sacrum. Sagittal and coronal reformats were constructed. For radiation dose reduction, the following was used: automated exposure control. COMPARISON: [facility], MR, MR LUMBAR SPINE WO CON, 10/12/2022, 16:12. [facility], CT, CT LUMBAR SPINE WO CON, 01/08/2022, 16:14. FINDINGS: Image quality: Excellent. Bones: Unchanged alignment. Grade 1 anterolisthesis of L3 on L4 measuring 8 mm. Posterior lateral kimi and pedicle screw fixation bilaterally at L4 through S1. No evidence of hardware failure or loosening. Unchanged vertebral body height of a mild to moderate subacute compression fracture of L2. No other compression fractures. No suspicious lytic or blastic bony lesions. No pars defects. T12-L1: No canal stenosis or foraminal stenosis. L1-L2: No canal stenosis or foraminal stenosis. L2-L3: No canal stenosis or foraminal stenosis. L3-L4: 8 mm anterolisthesis of L3 on L4. Posterior disc bulge. Facet and ligament hypertrophy. Severe canal stenosis. At least moderate bilateral foraminal stenosis. L4-L5: Posterior decompressive laminectomy and fusion. No canal stenosis. No significant foraminal stenosis. L5-S1: Posterior decompressive laminectomy and fusion. No canal stenosis or significant foraminal stenosis. Soft tissues: No retroperitoneal masses or hematomas. Visualized aorta is normal in caliber. IMPRESSION: 1. Expected findings at the postsurgical levels. No hardware failure or loosening. No canal stenosis or foraminal stenosis. 2. Stable appearance of [id number] subacute L2 compression fracture. 3. Severe canal stenosis at L3-L4. Dictated by: Larry Red M.D. on 10/29/2022 at 14:36 Approved by: Larry Red M.D. on 10/29/2022 at 14:45
== END ==
PROVIDERS: Family Provider Family Medicine; PCP Family Medicine; Referring Provider Neurological Surgery; Visit Provider Neurological Surgery
DX: M54.16 Radiculopathy, lumbar region (principal); M48.062 Spinal stenosis, lumbar region with neurogenic claudication; M48.56XA Collapsed vertebra, not elsewhere classified, lumbar region, initial encounter for fracture; Z98.1 Arthrodesis status
CPT/HCPCS: 72131

== ENCOUNTER → 2022-11-13 10:47 | Outpatient (CLI) | payer MEDICARE, SELFPAY ==
--- NOTE | 2022-11-13 | DI.RAD.S_ITS ---
PROCEDURE: XR CHEST 2V INDICATIONS: Shortness of breath. TECHNIQUE: 2 views of the chest were acquired. COMPARISON: [facility], [facility], XR CHEST 2V, 03/11/2021, 12:36. [facility], [facility], CHEST 2 VIEW, 04/12/2016, 19:56. FINDINGS: Surgical changes and devices: Partially seen left shoulder hardware. Partially seen right humeral hardware. Lungs and pleura: No dense consolidation or pleural effusion. Mediastinum: Mediastinal contours are normal. Heart size is normal. Bones and chest wall: Scoliosis. IMPRESSION: No acute radiographic abnormality. Dictated by: Jose Guadalupe Gabriel M.D. on 11/13/2022 at 13:18 Approved by: Jose Guadalupe Gabriel M.D. on 11/13/2022 at 13:20
[2022-11-13 12:38] LABS: Cholesterol 175 mg/dL (140-199); HDL Cholesterol 64 mg/dL (40-60); LDL Cholesterol Calculated 75 mg/dL (<100); Triglycerides 181 mg/dL (35-150)
[2022-11-13 14:10] LABS: Alanine Aminotransferase 40 IU/L (<35); Albumin 4.1 g/dL (3.5-5.0); Alkaline Phosphatase 41 U/L (38-126); Aspartate Aminotransferase 37 IU/L (14-36); Bilirubin Total 0.6 mg/dL (0.2-1.3); Blood Urea Nitrogen 32 mg/dL (7-17); Calcium 9.1 mg/dL (8.4-10.2); Carbon Dioxide 25 mmol/L (22-32); Chloride 102 mmol/L (98-107); Estimated Glomerular Filt Rate > 60 mL/min (>60); Globulin 2.1 g/dL (1.7-4.1); Glucose 88 mg/dL (80-110); HEMOLYSIS 18 (0-50); Potassium 4.6 mmol/L (3.4-5.1); Sodium 135 mmol/L (137-145); Total Protein 6.2 g/dL (6.3-8.2)
== END ==
PROVIDERS: Family Provider Family Medicine; PCP Family Medicine; Referring Provider Physician Assistant; Visit Provider Physician Assistant
DX: R06.02 Shortness of breath (principal); M06.09 Rheumatoid arthritis without rheumatoid factor, multiple sites; Z79.899 Other long term (current) drug therapy
CPT/HCPCS: 36415; 71046; 80053; 80061

== ENCOUNTER 2022-11-13 11:39 | Emergency (ER) | payer MEDICARE, SELFPAY ==
[2022-11-13 11:41] VITALS: BP 161/70; PULSE 78; RESP 14; TEMP 36.6; O2SAT 99; BMI 34.0
--- NOTE | 2022-11-13 13:01 | DI.RAD.S_ITS ---
PROCEDURE: XR ELBOW LT MIN 3V INDICATIONS: Elbow swelling/fall/injury TECHNIQUE: 3 views of the elbow were acquired. COMPARISON: None. FINDINGS: Bones: No fractures or dislocations. No suspicious bony lesions. Soft tissues: No elbow joint effusion. No suspicious soft tissue calcifications. IMPRESSION: No trauma or joint effusion found. Dictated by: Adan Purdy M.D. on 11/13/2022 at 13:37 Approved by: Adan Purdy M.D. on 11/13/2022 at 13:38
--- NOTE | 2022-11-13 13:02 | ED_ITS ---
HPI - Skin/Abscess/Foreign Bdy General Chief complaint: Skin/Abscess/Foreign Body Stated complaint: infection on arm Time Seen by Provider: 11/13/22 12:58 Source: patient Mode of arrival: Wheelchair Limitations: no limitations History of Present Illness HPI narrative: Patient here with . Has blistering of the skin at the dorsum of the left elbow. This surface about 2 days ago. One month ago patient had a ground level fall. Not on any blood thinners. She had swelling and bruising to the left elbow. No imaging was done at the time. She states she is not been elevating her elbow through the past 4 weeks but the swelling has decreased. It is improving. Skin otherwise intact. Has full active range of motion at the elbow. Denies any elbow pain at this time. No fever or chills. No red streaki ng. Related Data Home Medications Medication Instructions Recorded Confirmed calcium carbonate 600 mg-vitamin 1 cap PO QPM ##0 02/04/17 10/30/22 D3 10 mcg (400 unit) capsule (Calcium 600 with Vitamin D3) Adult One Daily Multivitamin 1 tab DAILY 10/16/18 10/30/22 folic acid 1 mg tablet 1 mg DAILY 11/18/20 10/30/22 atorvastatin 40 mg tablet 40 mg PO DAILY 03/16/22 10/30/22 cyclosporine 0.05 % eye drops in a drp EYE-BOTH BID 03/16/22 10/30/22 dropperette (Restasis) insulin syringe-needle U-100 1 mL #10 ea 03/16/22 10/30/22 30 gauge x 1/2 (BD Insulin Syringe Ultra-Fine) methotrexate sodium 25 mg/mL 35 mg SUBCUT 03/16/22 10/30/22 injection solution omega 8-icd-loo-fish oil 60 mg-90 1 cap PO BID 03/16/22 10/30/22 mg-500 mg capsule (Fish Oil) sodium chloride 5 % eye drops drp EYE-BOTH TID 03/16/22 10/30/22 azelastine 137 mcg (0.1 %) nasal ml intranasal 04/21/22 10/30/22 spray aerosol fluticasone propionate 110 1 puff inhalation BID 04/21/22 10/30/22 mcg/actuation HFA aerosol inhaler (Flovent HFA) nystatin 100,000 unit/gram topical 1 applic topical BID 04/21/22 10/30/22 cream pantoprazole 20 mg tablet,delayed 20 mg PO DAILY 05/20/22 10/30/22 release tocilizumab 162 mg/0.9 mL 162 mg SUBCUT QWEEK 09/18/22 10/30/22 subcutaneous pen injector (Actemra ACTPen) albuterol sulfate 90 mcg/actuation 0 mcg inhalation 10/30/22 10/30/22 aerosol inhaler Previous Rx's Medication Instructions Recorded losartan 25 mg tablet See Rx Instructions .Route 08/12/22 .COMPLEX #90 tabs zolpidem 10 mg tablet 5 mg PO BEDTIME #45 tabs 09/18/22 pregabalin 100 mg capsule (Lyrica) 200 mg PO BID #120 caps 10/01/22 ketorolac 10 mg tablet 10 mg PO Q6H PRN pain #14 tabs 10/05/22 calcitonin (salmon) 200 1 spray intranasal (ALT) DAILY 10/15/22 unit/actuation nasal spray Vertebral compression fracture 3 months #3.7 mL methocarbamol 500 mg tablet 500 mg PO TID PRN muscle spasm #60 10/15/22 tabs oxycodone-acetaminophen 5 mg-325 1 tab PO Q6H PRN pain 30 days #120 10/30/22 mg tablet tabs oxycodone-acetaminophen 5 mg-325 1 tab PO Q6H PRN pain 30 days #120 10/30/22 mg tablet (Percocet) tabs oxycodone-acetaminophen 5 mg-325 1 tab PO Q6H PRN pain 30 days #120 10/30/22 mg tablet (Percocet) tabs escitalopram oxalate 20 mg tablet 20 mg PO DAILY #90 tabs 11/16/22 (Lexapro) metoprolol succinate 100 mg 100 mg PO DAILY #100 tabs 11/16/22 tablet,extended release 24 hr mupirocin 2 % topical ointment See Rx Instructions .Route 11/23/22 .COMPLEX #15 grams Allergies Allergy/AdvReac Type Severity Reaction Status Date / Time clindamycin [CLINDAMYCIN] Allergy Intermediate ITCHING Verified 11/13/22 11:47 Penicillins [PENICILLINS] Allergy Unknown HIVES AND Verified 11/13/22 11:47 ITCHING (HAPPENED WHEN SHE WAS 7 YRS OLD) Review of Systems Review of Systems Narrative: GENERAL: negative chills, fatigue, malaise, fever, sweats. HEENT: negative sinus pain, ear pain, sore throat RESPIRATORY: negative dyspnea, cough CARDIOVASCULAR: negative chest pain, palpitations GASTROINTESTINAL: negative nausea, vomiting, abdominal pain : negative dysuria, frequency, hematuria MUSCULOSKELETAL: negative muscle or bony pain SKIN: negative rash, skin lesions, positive blister NEUROLOGIC: negative weakness, numbness ROS Unobtainable: All systems reviewed & are unremarkable except as noted in HPI and below Patient History Medical History Asthma (~1990) Asthmatic bronchitis Balance problem Benign essential HTN Carpal tunnel syndrome (~2010) Cervical spine disease (~1979) Chronic back pain Chronic bilateral low back pain with bilateral sciatica Chronic cough Chronic pain syndrome Depression (~1986) DVT (deep venous thrombosis) (~2000) Fractures GERD (gastroesophageal reflux disease) (~1997) Knee pain Low back pain Lumbar compression fracture Lumbar radiculopathy Lumbar spinal stenosis Lumbar spine pain (~1979) Lumbosacral spondylosis Lymphocytic colitis (~2019) Obesity (BMI 30.0-34.9) Osteoarthritis (~1979) Peripheral neuropathy Pulmonary embolism (~2000) Right hip pain Sacroiliac joint dysfunction Scoliosis (~1949) Seronegative rheumatoid arthritis (~2011) Shoulder pain Spondylolisthesis Status post fall Tinnitus Surgical History Anesthesia H/O eye surgery (02/05/1958) H/O total hysterectomy (05/06/00) History of arthroscopic knee surgery (~05/07/79) History of carpal tunnel surgery (~06/06/13) History of cataract removal with insertion of prosthetic lens (~04/08/21) History of cholecystectomy (02/05/98) History of foot surgery History of knee surgery (05/05/10) History of left knee surgery (~05/06/77) History of left shoulder replacement (02/16/19) History of plastic surgery (~07/30/04) 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) History of uterine fibroid (~08/07/91) Hx of spinal fusion (10/09/18) Hx of tonsillectomy (07/27/1967) Patellar fracture (~04/18/09) S/P foot surgery, left (~02/16/18) S/P removal of ovarian cyst (~09/05/77) Status post left rotator cuff repair (~04/01/08) Status post lumbar spinal fusion Status post right rotator cuff repair (~05/05/07) Temporomandibular joint disorder (~03/08/77) Family History Father History of heart disease Hypertension Hyperlipidemia Mother COPD (chronic obstructive pulmonary disease) Brother COPD (chronic obstructive pulmonary disease) Brother Hyperlipidemia Hypertension Grandfather History of heart disease Grandmother COPD (chronic obstructive pulmonary disease) Asthma Grandfather History of heart disease Grandmother Flu Social History Smoking Status: Never smoker alcohol intake: never substance use type: does not use Smoking Status: Never smoker alcohol intake frequency: 0-2 drinks per day Substance Use Type: does not use Exam Narrative Exam Narrative: GENERAL: in no distress, not toxic not dyspneic HEAD: Normocephalic. EXTREMITIES: No gross deformities. Examination left upper extremity. There is a 2 cm diameter serous fluid collection vesicle at the dorsum of the left elbow. Has full active range motion at the elbow without difficulty. No red streaking. No discharge. Fluid collections nontender. No surrounding crepitus. No pain out of proportion to exam. Strong left event representative and radial pulse. NEURO: AOx4. SKIN: Warm and dry PSYCH: Not anxious, is cooperative Initial Vital Signs Initial Vital Signs: Vital Signs Temperature 97.9 F 11/13/22 11:41 Pulse Rate 78 11/13/22 11:41 Respiratory Rate 14 11/13/22 11:41 Blood Pressure 161/70 H 11/13/22 11:41 Pulse Oximetry 99 11/13/22 11:41 Oxygen Delivery Method Room Air 11/13/22 11:41 Course Orders Ordered: ED Orders 11/13/22 13:01 XR elbow LT min 3V Stat Vital Signs Vital signs: Vital Signs - 8 hr 11/13/22 11:41 Temperature 97.9 F Pulse Rate 78 Respiratory Rate 14 Blood Pressure 161/70 H Pulse Oximetry 99 Oxygen Delivery Method Room Air MDM - Skin/Abscess/Foreign Bdy Imaging Data Extremity x-ray #1: Radiologist's Impression: X-ray left elbow no acute process MDM Narrative Medical decision making narrative: Patient here with . Has blistering of the skin at the dorsum of the left elbow. This surface about 2 days ago. One month ago patient had a ground level fall. Not on any blood thinners. She had swelling and bruising to the l eft elbow. No imaging was done at the time. She states she is not been elevating her elbow through the past 4 weeks but the swelling has decreased. It is improving. Skin otherwise intact. Has full active range of motion at the elbow. Denies any elbow pain at this time. No fever or chills. No red streaking. After history and exam x-ray left elbow MDM CC: Skin fluid collection Complicating co-morbidities: Recent fall/injury to left elbow Data collected from: Patient and Medical records reviewed: ER visit from October 05, 2022 Differential considered: Includes but not limited to seroma elbow fracture elbow contusion hematoma Exam documented above, pertinent findings include: Seroma on left elbow Imaging studies independently reviewed: X-ray left elbow no acute finding Consultations: None indicated this time Treatments: None required Re-evaluations: Reviewed results with patient and . I did apologize that there was not communication of the results of the x-ray from Radiology Department to our department. They did understand. Return precautions reviewed with him. They do understand this is not infection. She can proceed with her surgery. Not toxic at discharge. Discussion: Appropriate for discharge home. Exam of the skin is not infectious source. Not cellulitis. Not abscess. It is likely serous blister from patient's swelling from her injury. Return precautions reviewed. No blood work indicated. No fever. Exam is reassuring. Imaging reassuring as well. Diagnosis: Cutaneous blister Discharge Plan Departure Patient Disposition: Home Clinical Impression: Blister of skin Instructions: DI for Blisters Activity Restrictions/Additional Instructions: Exam of your skin does not show infection. This is likely a serous blister from the swelling you had from your injury to your elbow. No antibiotics are indicated this time. Return if worse if any questions or concerns Prescriptions: No Action calcium carbonate-vitamin D3 [Calcium 600 with Vitamin D3] 600 mg(1,500mg) - 400 unit capsule 1 cap PO QPM Qty: 0 losartan 25 mg tablet See Rx Instructions .ROUTE .COMPLEX Qty: 90 3RF Dose Instruction: TAKE 1 TABLET BY MOUTH DAILY Rx Instructions: TAKE 1 TABLET BY MOUTH DAILY metoprolol succinate 100 mg tablet extended release 24 hr 100 mg PO DAILY Qty: 100 3RF escitalopram oxalate [Lexapro] 20 mg tablet 20 mg PO DAILY Qty: 90 3RF mupirocin 2 % ointment See Rx Instructions .ROUTE .COMPLEX Qty: 15 0RF Rx Instructions: APPLY TO THE AFFECTED AREA TWICE DAILY. CLEAN AND DRY AREA PRIOR TO USE; Actemra ACTPen 162 mg/0.9 mL pen injector 162 mg SUBCUT QWEEK Patient Comments: [NO ORIGINAL SIG] zolpidem 10 mg tablet 5 mg PO BEDTIME Qty: 45 3RF fluticasone propionate [Flovent HFA] 110 mcg/actuation HFA aerosol inhaler 1 puff inhalation BID azelastine 137 mcg (0.1 %) aerosol,spray intranasal nystatin 100,000 unit/gram cream 1 applic topical BID pregabalin [Lyrica] 100 mg capsule 200 mg PO BID Qty: 120 5RF albuterol sulfate 90 mcg/actuation HFA aerosol inhaler 0 mcg inhalation oxycodone-acetaminophen 5-325 mg tablet 1 tab PO Q6H PRN (Reason: pain) 30 Days Qty: 120 0RF oxycodone-acetaminophen [Percocet] 5-325 mg tablet 1 tab PO Q6H PRN (Reason: pain) 30 Days Qty: 120 0RF oxycodone-acetaminophen [Percocet] 5-325 mg tablet 1 tab PO Q6H PRN (Reason: pain) 30 Days Qty: 120 0RF Adult One Daily Multivitamin 1 tab DAILY folic acid 1 mg Tablet 1 mg DAILY ketorolac 10 mg tablet 10 mg PO Q6H PRN (Reason: pain) Qty: 14 0RF pantoprazole 20 mg tablet,delayed release (DR/EC) 20 mg PO DAILY methocarbamol 500 mg tablet 500 mg PO TID PRN (Reason: muscle spasm) Qty: 60 2RF calcitonin (salmon) 200 unit/actuation spray,non-aerosol 1 spray intranasal (ALT) DAILY 90 Days Qty: 3.7 2RF Rx Instructions: Alternate nostrils daily atorvastatin 40 mg tablet 40 mg PO DAILY (DME) insulin syringe-needle U-100 [BD Insulin Syringe Ultra-Fine] 1 mL 30 gauge x 1/2 syringe See Rx Instructions .ROUTE .MEDSUPPLY Qty: 10 Patient Comments: USE 1 SYRINGE ONCE A WEEK Rx Instructions: As directed methotrexate sodium 25 mg/mL solution 35 mg SUBCUT cyclosporine [Restasis] 0.05 % dropperette EYE-BOTH BID sodium chloride 5 % drops EYE-BOTH TID omega 2-idi-azm-fish oil [Fish Oil] 60-90-500 mg capsule 1 cap PO BID Referrals: Nai Arita DO [Primary Care Provider] - Stand Alone Forms: Patient Portal/API
--- NOTE | 2022-11-13 14:47 | PC.NURSE ---
Delay of care noted, apologies given to pt / Xray is negative. Report didn't cross over to [facility].
[2022-11-13 14:58] VITALS: BP 154/74; PULSE 70; RESP 17; O2SAT 99
== END 2022-11-13 14:59 | disposition home or self-care (01) ==
PROVIDERS: Emergency Provider Emergency Medicine; Family Provider Family Medicine; PCP Family Medicine
DX: S50.322A Blister (nonthermal) of left elbow, initial encounter (principal); W18.30XA Fall on same level, unspecified, initial encounter; R06.02 Shortness of breath; M06.09 Rheumatoid arthritis without rheumatoid factor, multiple sites; Z79.899 Other long term (current) drug therapy
CPT/HCPCS: 36415; 71046; 73080; 80053; 80061; 99283

== ENCOUNTER → 2022-11-14 08:46 | Outpatient (CLI) | payer MEDICARE, SELFPAY ==
[2022-11-14 10:20] LABS: Add Manual Diff / Slide Review NO; Basophils Absolute Auto 0 /uL (0-100); Basophils Percent Auto 0.9 % (0-2); Eosinophils Absolute Auto 100 /uL (0-450); Eosinophils Percent Auto 2.3 % (2-4); Hematocrit 36.5 % (36-46); Hemoglobin 12.3 g/dL (12.0-16.0); Lymphocytes Absolute Auto 1600 /uL (1100-4500); Lymphocytes Percent Auto 60.7 % (25-40); Mean Corpuscular HGB Conc 33.8 % (30-36); Mean Corpuscular Hemoglobin 33.6 PG (26-34); Mean Corpuscular Volume 99.3 fL (80-100); Monocytes Absolute Auto 500 /uL (0-900); Monocytes Percent Auto 17.7 % (3-14); Neutrophils Absolute Auto 500 /uL (1500-7000); Neutrophils Percent Auto 18.4 % (50-75); Platelet Count 107 X10^3/uL (150-400); Red Blood Cell Count 3.67 X10^6/uL (4.0-5.2); Red Cell Distribution Width 14.5 % (11.6-14.8); White Blood Cell Count 2.7 X10^3/uL (4.5-11.0)
== END ==
PROVIDERS: Family Provider Family Medicine; PCP Family Medicine; Referring Provider Internal Medicine Rheumatology; Visit Provider Internal Medicine Rheumatology
DX: U09.9 Post COVID-19 condition, unspecified (principal); R79.89 Other specified abnormal findings of blood chemistry
CPT/HCPCS: 85025

== ENCOUNTER → 2022-11-25 11:45 | Outpatient (CLI) | payer MEDICARE, SELFPAY ==
[2022-11-25 12:38] LABS: Add Manual Diff / Slide Review NO; Basophils Absolute Auto 0 /uL (0-100); Basophils Percent Auto 1.6 % (0-2); Eosinophils Absolute Auto 100 /uL (0-450); Eosinophils Percent Auto 3.6 % (2-4); Hematocrit 36.7 % (36-46); Hemoglobin 12.5 g/dL (12.0-16.0); Lymphocytes Absolute Auto 1200 /uL (1100-4500); Lymphocytes Percent Auto 54.8 % (25-40); Mean Corpuscular HGB Conc 34.1 % (30-36); Mean Corpuscular Hemoglobin 33.5 PG (26-34); Mean Corpuscular Volume 98.5 fL (80-100); Monocytes Absolute Auto 300 /uL (0-900); Monocytes Percent Auto 15.3 % (3-14); Neutrophils Absolute Auto 500 /uL (1500-7000); Neutrophils Percent Auto 24.7 % (50-75); Platelet Count 112 X10^3/uL (150-400); Red Blood Cell Count 3.73 X10^6/uL (4.0-5.2); Red Cell Distribution Width 14.2 % (11.6-14.8); White Blood Cell Count 2.2 X10^3/uL (4.5-11.0)
== END ==
PROVIDERS: Family Provider Family Medicine; PCP Family Medicine; Referring Provider Internal Medicine Rheumatology; Visit Provider Internal Medicine Rheumatology
DX: D70.9 Neutropenia, unspecified (principal); Z79.899 Other long term (current) drug therapy
CPT/HCPCS: 36415; 85025

== ENCOUNTER → 2022-12-02 12:18 | Outpatient (CLI) | payer MEDICARE, SELFPAY ==
[2022-12-02 12:44] LABS: Add Manual Diff / Slide Review NO; Basophils Absolute Auto 0 /uL (0-100); Basophils Percent Auto 1.2 % (0-2); Eosinophils Absolute Auto 100 /uL (0-450); Eosinophils Percent Auto 2.3 % (2-4); Hematocrit 36.6 % (36-46); Hemoglobin 12.6 g/dL (12.0-16.0); Lymphocytes Absolute Auto 1200 /uL (1100-4500); Lymphocytes Percent Auto 52.2 % (25-40); Mean Corpuscular HGB Conc 34.5 % (30-36); Mean Corpuscular Hemoglobin 33.7 PG (26-34); Mean Corpuscular Volume 97.7 fL (80-100); Monocytes Absolute Auto 300 /uL (0-900); Monocytes Percent Auto 13.5 % (3-14); Neutrophils Absolute Auto 700 /uL (1500-7000); Neutrophils Percent Auto 30.8 % (50-75); Platelet Count 117 X10^3/uL (150-400); Red Blood Cell Count 3.75 X10^6/uL (4.0-5.2); Red Cell Distribution Width 14.4 % (11.6-14.8); White Blood Cell Count 2.3 X10^3/uL (4.5-11.0)
== END ==
PROVIDERS: Family Provider Family Medicine; PCP Family Medicine; Referring Provider Internal Medicine Rheumatology; Visit Provider Internal Medicine Rheumatology
DX: D70.9 Neutropenia, unspecified (principal); Z79.899 Other long term (current) drug therapy
CPT/HCPCS: 36415; 85025

== ENCOUNTER → 2022-12-09 14:06 | Outpatient (CLI) | payer MEDICARE, SELFPAY ==
[2022-12-09 14:54] LABS: Add Manual Diff / Slide Review NO; Basophils Absolute Auto 0 /uL (0-100); Basophils Percent Auto 0.9 % (0-2); Eosinophils Absolute Auto 100 /uL (0-450); Hematocrit 39.3 % (36-46); Hemoglobin 13.3 g/dL (12.0-16.0); Lymphocytes Absolute Auto 1600 /uL (1100-4500); Lymphocytes Percent Auto 50.3 % (25-40); Mean Corpuscular HGB Conc 33.7 % (30-36); Mean Corpuscular Hemoglobin 33.4 PG (26-34); Monocytes Absolute Auto 500 /uL (0-900); Neutrophils Absolute Auto 1000 /uL (1500-7000); Neutrophils Percent Auto 29.8 % (50-75); Platelet Count 142 X10^3/uL (150-400); Red Blood Cell Count 3.97 X10^6/uL (4.0-5.2); Red Cell Distribution Width 14.9 % (11.6-14.8); White Blood Cell Count 3.2 X10^3/uL (4.5-11.0)
== END ==
PROVIDERS: Family Provider Family Medicine; PCP Family Medicine; Referring Provider Internal Medicine Rheumatology; Visit Provider Internal Medicine Rheumatology
DX: Z79.899 Other long term (current) drug therapy (principal); D70.9 Neutropenia, unspecified
CPT/HCPCS: 36415; 85025

== ENCOUNTER → 2022-12-16 12:14 | Outpatient (CLI) | payer MEDICARE, SELFPAY ==
[2022-12-16 13:29] LABS: Add Manual Diff / Slide Review NO; Basophils Absolute Auto 0 /uL (0-100); Basophils Percent Auto 1.5 % (0-2); Eosinophils Absolute Auto 100 /uL (0-450); Eosinophils Percent Auto 2.1 % (2-4); Hematocrit 38.4 % (36-46); Hemoglobin 13.1 g/dL (12.0-16.0); Lymphocytes Absolute Auto 1500 /uL (1100-4500); Lymphocytes Percent Auto 50.4 % (25-40); Mean Corpuscular HGB Conc 34.1 % (30-36); Mean Corpuscular Hemoglobin 33.5 PG (26-34); Mean Corpuscular Volume 98.1 fL (80-100); Monocytes Absolute Auto 300 /uL (0-900); Monocytes Percent Auto 11.1 % (3-14); Neutrophils Absolute Auto 1000 /uL (1500-7000); Neutrophils Percent Auto 34.9 % (50-75); Platelet Count 135 X10^3/uL (150-400); Red Blood Cell Count 3.92 X10^6/uL (4.0-5.2); Red Cell Distribution Width 14.1 % (11.6-14.8)
== END ==
PROVIDERS: Family Provider Family Medicine; PCP Family Medicine; Referring Provider Internal Medicine Rheumatology; Visit Provider Internal Medicine Rheumatology
DX: D70.9 Neutropenia, unspecified (principal); Z79.899 Other long term (current) drug therapy
CPT/HCPCS: 36415; 85025

== ENCOUNTER → 2023-01-22 13:05 | Outpatient (CLI) | payer MEDICARE, SELFPAY ==
[2023-01-22 14:03] LABS: Add Manual Diff / Slide Review NO; Basophils Absolute Auto 0 /uL (0-100); Basophils Percent Auto 0.5 % (0-2); Eosinophils Absolute Auto 200 /uL (0-450); Eosinophils Percent Auto 2.4 % (2-4); Hematocrit 36.6 % (36-46); Hemoglobin 12.1 g/dL (12.0-16.0); Lymphocytes Absolute Auto 1100 /uL (1100-4500); Lymphocytes Percent Auto 16.5 % (25-40); Mean Corpuscular HGB Conc 33.2 % (30-36); Mean Corpuscular Hemoglobin 31.8 PG (26-34); Mean Corpuscular Volume 95.9 fL (80-100); Monocytes Absolute Auto 400 /uL (0-900); Monocytes Percent Auto 6.7 % (3-14); Neutrophils Absolute Auto 4900 /uL (1500-7000); Neutrophils Percent Auto 73.9 % (50-75); Platelet Count 208 X10^3/uL (150-400); Red Blood Cell Count 3.82 X10^6/uL (4.0-5.2); Red Cell Distribution Width 14.3 % (11.6-14.8); White Blood Cell Count 6.6 X10^3/uL (4.5-11.0)
[2023-01-22 14:21] LABS: Alanine Aminotransferase 27 IU/L (<35); Albumin 4.1 g/dL (3.5-5.0); Albumin Globulin Ratio 1.8 (1.0-2.8); Alkaline Phosphatase 53 U/L (38-126); Aspartate Aminotransferase 25 IU/L (14-36); BUN Creatinine Ratio 18.9 (6-22); Bilirubin Total 0.5 mg/dL (0.2-1.3); Blood Urea Nitrogen 18 mg/dL (7-17); Calcium 9.7 mg/dL (8.4-10.2); Carbon Dioxide 28 mmol/L (22-32); Chloride 100 mmol/L (98-107); Estimated Glomerular Filt Rate > 60 mL/min (>60); Globulin 2.3 g/dL (1.7-4.1); Glucose 99 mg/dL (80-110); HEMOLYSIS < 15 (0-50); Potassium 4.5 mmol/L (3.4-5.1); Sodium 137 mmol/L (137-145); Total Protein 6.4 g/dL (6.3-8.2)
== END ==
PROVIDERS: Family Provider Family Medicine; PCP Family Medicine; Referring Provider Internal Medicine Rheumatology; Visit Provider Internal Medicine Rheumatology
DX: Z79.899 Other long term (current) drug therapy (principal)
CPT/HCPCS: 36415; 80053; 85025

== ENCOUNTER 2023-02-20 20:14 | Observation (INO) | payer MEDICARE, SELFPAY ==
[2023-02-20] VITALS (15 sets, daily range): BP systolic 102–189; BP diastolic 55–86; PULSE 56–77; RESP 17–24; TEMP 37.1; O2SAT 88–98; BMI 34.0
[2023-02-20] MEDS: EPINEPHrine 1 MG/ML 0.3 MG IM (20:51)
[2023-02-20] MEDS: diphenhydrAMINE 50 MG/ML VIAL 25 MG IV (20:52)
[2023-02-20] MEDS: methylPREDNISolone 125 MG/2 ML VIAL IV (20:52)
[2023-02-20] MEDS: FAMOTIDINE 20 MG/2 ML VIAL IV (20:53)
[2023-02-21] VITALS (59 sets, daily range): BP systolic 119–172; BP diastolic 53–140; PULSE 55–103; RESP 16–57; TEMP 36.4–37.2; O2SAT 89–99; BMI 34.8
--- NOTE | 2023-02-21 00:08 | PC.NURSE ---
Patient call staff to room for return of hives and itchiness. Patient with hives to face, low back and left arm. Patient denies SOB, oral swelling or itchiness to mouth/throat.
--- NOTE | 2023-02-21 00:13 | ED.ALLEREA ---
HPI - Allergic Reaction General Chief complaint: Allergic Reaction Stated complaint: cimzia allergic reaction Time Seen by Provider: 02/20/23 20:24 Source: patient Mode of arrival: Ambulatory History of Present Illness HPI narrative: 72-year-old woman with a history of rheumatoid arthritis, significant lumbar pathology with recent low back surgery, hypertension who was started on Cimzia/certolizumab today. She did her 1st injection today and within a number of hours began developing hives that progressed to redness over the face with cell swelling around her eyes and then itching in the back of her throat with a sensation that her palate was beginning to swell. She did have some minor wheezing and used a home nebulizer. She also took 20 mg of prednisone and an Annabella prior to arrival. On arrival she has skin changes as described, no obvious wheezing or respiratory distress but progressive hives and increasing complaints of posterior pharyngeal swelling. Related Data Home Medications Medication Instructions Recorded Confirmed calcium carbonate 600 mg-vitamin 1 cap PO QPM ##0 02/04/17 01/20/23 D3 10 mcg (400 unit) capsule (Calcium 600 with Vitamin D3) Adult One Daily Multivitamin 1 tab DAILY 10/16/18 01/20/23 folic acid 1 mg tablet 1 mg DAILY 11/18/20 01/20/23 cyclosporine 0.05 % eye drops in a drp EYE-BOTH BID 03/16/22 01/20/23 dropperette (Restasis) insulin syringe-needle U-100 1 mL #10 ea 03/16/22 01/20/23 30 gauge x 1/2 (BD Insulin Syringe Ultra-Fine) methotrexate sodium 25 mg/mL 35 mg SUBCUT 03/16/22 01/20/23 injection solution omega 6-tre-xfq-fish oil 60 mg-90 1 cap PO BID 03/16/22 01/20/23 mg-500 mg capsule (Fish Oil) sodium chloride 5 % eye drops drp EYE-BOTH TID 03/16/22 01/20/23 azelastine 137 mcg (0.1 %) nasal ml intranasal 04/21/22 01/20/23 spray aerosol fluticasone propionate 110 1 puff inhalation BID 04/21/22 01/20/23 mcg/actuation HFA aerosol inhaler (Flovent HFA) nystatin 100,000 unit/gram topical 1 applic topical BID 04/21/22 01/20/23 cream pantoprazole 20 mg tablet,delayed 20 mg PO DAILY 05/20/22 01/20/23 release albuterol sulfate 90 mcg/actuation 0 mcg inhalation 10/30/22 01/20/23 aerosol inhaler Previous Rx's Medication Instructions Recorded losartan 25 mg tablet See Rx Instructions .Route 08/12/22 .COMPLEX #90 tabs zolpidem 10 mg tablet 5 mg (1/2 x 10 mg) PO BEDTIME #45 09/18/22 tabs pregabalin 100 mg capsule (Lyrica) 200 mg (2 x 100 mg) PO BID #120 10/01/22 caps methocarbamol 500 mg tablet 500 mg PO TID PRN muscle spasm #60 10/15/22 tabs escitalopram oxalate 20 mg tablet 20 mg PO DAILY #90 tabs 11/16/22 (Lexapro) metoprolol succinate 100 mg 100 mg PO DAILY #100 tabs 11/16/22 tablet,extended release 24 hr mupirocin 2 % topical ointment See Rx Instructions .Route 11/23/22 .COMPLEX #15 grams atorvastatin 40 mg tablet 40 mg PO DAILY #90 tabs 12/01/22 enoxaparin 40 mg/0.4 mL 40 mg (0.4 mL) SUBCUT DAILY 14 01/20/23 subcutaneous syringe (Lovenox) days #4 mL Allergies Allergy/AdvReac Type Severity Reaction Status Date / Time certolizumab pegol Allergy Severe Anaphylaxis Verified 02/21/23 00:32 [From Cimzia] clindamycin [CLINDAMYCIN] Allergy Intermediate ITCHING Verified 01/20/23 13:09 Penicillins [PENICILLINS] Allergy Unknown HIVES AND Verified 01/20/23 13:09 ITCHING (HAPPENED WHEN SHE WAS 7 YRS OLD) Review of Systems Review of Systems Narrative: Pertinent positive and negative findings as per HPI Patient History Medical History Asthma (~1990) Asthmatic bronchitis Balance problem Benign essential HTN Carpal tunnel syndrome (~2010) Cervical spine disease (~1979) Chronic back pain Chronic bilateral low back pain with bilateral sciatica Chronic cough Chronic pain syndrome Depression (~1986) DVT (deep venous thrombosis) (~2000) Fractures GERD (gastroesophageal reflux disease) (~1997) Knee pain Low back pain Lumbar compression fracture Lumbar radiculopathy Lumbar spinal stenosis Lumbar spine pain (~1979) Lumbosacral spondylosis Lymphocytic colitis (~2019) Obesity (BMI 30.0-34.9) Osteoarthritis (~1979) Peripheral neuropathy Pulmonary embolism (~2000) Right hip pain Sacroiliac joint dysfunction Scoliosis (~1949) Seronegative rheumatoid arthritis (~2011) Shoulder pain Spondylolisthesis Status post fall Tinnitus Surgical History Anesthesia H/O eye surgery (02/05/1958) H/O total hysterectomy (05/06/00) History of arthroscopic knee surgery (~05/07/79) History of carpal tunnel surgery (~06/06/13) History of cataract removal with insertion of prosthetic lens (~04/08/21) History of cholecystectomy (02/05/98) History of foot surgery History of knee surgery (05/05/10) History of left knee surgery (~05/06/77) History of left shoulder replacement (02/16/19) History of plastic surgery (~07/30/04) 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) History of uterine fibroid (~08/07/91) Hx of spinal fusion (10/09/18) Hx of tonsillectomy (07/27/1967) Patellar fracture (~04/18/09) S/P foot surgery, left (~02/16/18) S/P removal of ovarian cyst (~09/05/77) Status post left rotator cuff repair (~04/01/08) Status post lumbar spinal fusion Status post right rotator cuff repair (~05/05/07) Temporomandibular joint disorder (~03/08/77) Family History Father History of heart disease Hypertension Hyperlipidemia Mother COPD (chronic obstructive pulmonary disease) Brother COPD (chronic obstructive pulmonary disease) Brother Hyperlipidemia Hypertension Grandfather History of heart disease Grandmother COPD (chronic obstructive pulmonary disease) Asthma Grandfather History of heart disease Grandmother Flu Social History Smoking Status: Never smoker alcohol intake: never substance use type: does not use Smoking Status: Never smoker alcohol intake frequency: 0-2 drinks per day Alcohol type: wine Substance Use Type: does not use Exam Initial Vital Signs Initial Vital Signs: Vital Signs Temperature 98.7 F 02/20/23 20:19 Pulse Rate 71 02/20/23 20:19 Respiratory Rate 20 02/20/23 20:19 Blood Pressure 139/65 02/20/23 20:19 Pulse Oximetry 95 02/20/23 20:19 Oxygen Delivery Method Room Air 02/20/23 20:19 General: Face is swollen with significant redness and swelling around the eyes, Able to give a complete and coherent history. Well-nourished well-developed HEENT: Moist mucous membranes, normal sclera with reactive pupils, periorbital erythema and edema, facial swelling, erythema to the posterior pharynx without obvious appreciable swelling. Neck: No cervical adenopathy, supple Respiratory: Lungs are clear to auscultation, no wheezing no rales no rhonchi. Full and symmetrical air movement, no difficulty with speech Cardiac: Regular rate and rhythm no murmurs no bruits Abdomen: Soft, obese, nontender, good bowel tones, no flank pain Skin: Multiple confluent hives worse over her back lower abdomen but noted over the upper extremities and up her neck. Her face is erythematous but not urticarial Neurologic: Grossly neurologically intact with no obvious asymmetries or abnormalities Extremities: No trauma, well perfused Psych: Cooperative, appropriate insight and affect Course Orders Ordered: Discontinued Medications Diphenhydramine HCl (Diphenhydramine 50 Mg/Ml Vial) 25 mg IV NOW ONE Stop: 02/20/23 20:44 Last Admin: 02/20/23 20:52 Dose: 25 mg Documented By: ARVIND Epinephrine HCl (Epinephrine 1 Mg/Ml) 0.3 mg IM NOW ONE Stop: 02/20/23 20:44 Last Admin: 02/20/23 20:51 Dose: 0.3 mg Documented By: ARVIND Famotidine (Famotidine 20 Mg/2 Ml Vial) 20 mg IV NOW ONE Stop: 02/20/23 20:45 Last Admin: 02/20/23 20:53 Dose: 20 mg Documented By: ARVIND Methylprednisolone (Methylprednisolone 125 Mg/2 Ml Vial) 125 mg IV NOW ONE Stop: 02/20/23 20:44 Last Admin: 02/20/23 20:52 Dose: 125 mg Documented By: GC Vital Signs Vital signs: Vital Signs - 8 hr 02/20/23 20:19 02/20/23 20:26 02/20/23 20:27 Temperature 98.7 F Pulse Rate 71 77 Respiratory Rate 20 18 Blood Pressure 139/65 173/81 H Pulse Oximetry 95 88 L Oxygen Delivery Method Room Air Oxygen Flow Rate 02/20/23 20:27 02/20/23 20:29 02/20/23 20:29 Temperature Pulse Rate 75 72 Respiratory Rate 17 20 Blood Pressure 149/86 H Pulse Oximetry 98 97 Oxygen Delivery Method Nasal Cannula Oxygen Flow Rate 2 02/20/23 20:30 02/20/23 20:30 02/20/23 21:00 Temperature Pulse Rate 70 70 Respiratory Rate 21 18 Blood Pressure 145/77 H Pulse Oximetry 97 98 Oxygen Delivery Method Oxygen Flow Rate 02/20/23 21:01 02/20/23 21:01 02/20/23 21:30 Temperature Pulse Rate 72 67 Respiratory Rate 20 21 Blood Pressure 189/85 H Pulse Oximetry 97 93 Oxygen Delivery Method Oxygen Flow Rate 02/20/23 21:31 02/20/23 21:31 02/20/23 22:00 Temperature Pulse Rate 69 59 L Respiratory Rate 22 18 Blood Pressure 148/62 H Pulse Oximetry 91 95 Oxygen Delivery Method Oxygen Flow Rate 02/20/23 22:01 02/20/23 22:01 02/20/23 22:30 Temperature Pulse Rate 60 Respiratory Rate 23 Blood Pressure 115/56 L 127/60 Pulse Oximetry 97 Oxygen Delivery Method Oxygen Flow Rate 02/20/23 22:30 02/20/23 23:00 02/20/23 23:01 Temperature Pulse Rate 61 56 L Respiratory Rate 20 19 Blood Pressure 102/56 L Pulse Oximetry 95 96 Oxygen Delivery Method Oxygen Flow Rate 02/20/23 23:01 02/20/23 23:30 02/20/23 23:30 Temperature Pulse Rate 56 L 56 L Respiratory Rate 22 24 Blood Pressure 120/55 L Pulse Oximetry 95 96 Oxygen Delivery Method Oxygen Flow Rate MDM - Allergic Reaction MDM Narrative Medical decision making narrative: CC: Anaphylaxis Complicating co-morbidities: Seronegative rheumatoid arthritis for which she started Cimzia, injectable every 2 week immune modulator 1st dose today. Data collected from: patient, Social determinants of health that may influence the patients condition:recent spine surgery Medical records reviewed: Rheumatology consult from January 26 is reviewed, family practice visit from January 20 reviewed Differential considered: Anaphylaxis, minor allergic reaction Exam documented above, pertinent findings include: She is able to speak in full sentences with no acute respiratory distress but notes increasing fullness and itchiness in the posterior pharynx and has fairly impressive urticarial rash over much of her torso with erythema and facial swelling also appreciated. She is not hypotensive Consultations:Dr Turner, hospitalist Treatments: Subcutaneous epinephrine, parenteral Solu-Medrol, Benadryl, Pepcid. Re-evaluations: At 4 hours. symptoms are returning after significant improvement with the initial round of Solu-Medrol and epinephrine. Another round of subcu epinephrine is given Discussion: 72-year-old woman with anaphylactic reaction to her new rheumatoid biologic medication. The medicine is dosed every 2 weeks. She did immediate and nice response to subQ epi, Solu-Medrol, Benadryl and Pepcid with return of symptoms at approximately 4 hours as the epinephrine began to wear off. She was also having increasing itching. Second dose of epinephrine and Benadryl were administered. Care is reviewed with Dr. Elkins with recommendations for admission for further observation and possible repeat episodes of subcutaneous epinephrine. He accepts admission. Findings reviewed with the patient and her and they understand reasons for recommendations for hospitalization. She is safe for transfer to the floor Critical Care Time Critical Care Time Critical Care Time: Yes Total Critical Care Time: 33 Attestation: Critical care time is separate from other billable procedures. There is a high probability of a significant, sudden or life-threatening deterioration that requires my full and direct attention, intervention and personal management. This critical care time includes consultation with family and other consulting doctors, review of records, repeat bedside evaluation as well as managements of anaphylaxis with parenteral medications and subcutaneous epinephrine. Discharge Plan Departure Patient Disposition: Admitted as Observation Clinical Impression: Anaphylaxis Qualifiers: Encounter type: initial encounter Qualified Code(s): T78.2XXA - Anaphylactic shock, unspecified, initial encounter Admit Date/Time: 02/21/23 00:22 Admit Provider: Uriel Turner
[2023-02-21] MEDS: EPINEPHrine 1 MG/ML 0.3 MG IM (00:19)
[2023-02-21] MEDS: diphenhydrAMINE 50 MG/ML VIAL 25 MG IV (00:29)
[2023-02-21] MEDS: SODIUM CHLORIDE 0.9% 1,000 ML 100 ML IV (01:15)
--- NOTE | 2023-02-21 02:16 | P.HP_ITS ---
History of Present Illness History of Present Illness Chief complaint: cimzia allergic reaction Narrative: 72 years old female with history of hypertension, rheumatoid arthritis on immunosuppressive therapy, history of DVT and PE in 2000, recent back surgery, depression, asthma, chronic back pain, presented to the ER after he developed allergic reaction to Cimzia started yesterday. 2 hours after she took the medication she started developing facial swelling, itching in the back of her throat, redness over her face and body. She also had some mild wheezing and was using home nebulizer. She also took prednisone 20 mg and Annabella prior to arrival. In the ER her allergy progressed to hives and increased complaint of posterior pharyngeal swelling. She was given epinephrine subcu x 2, Pepcid, Benadryl and methylprednisolone 125 mg IV. Vital signs remained stable. Laboratory unremarkable. FOR[facility]LY [facility], LATER [facility] Medical History Asthma (~1990) Asthmatic bronchitis Balance problem Benign essential HTN Carpal tunnel syndrome (~2010) Cervical spine disease (~1979) Chronic back pain Chronic bilateral low back pain with bilateral sciatica Chronic cough Chronic pain syndrome Depression (~1986) DVT (deep venous thrombosis) (~2000) Fractures GERD (gastroesophageal reflux disease) (~1997) Knee pain Low back pain Lumbar compression fracture Lumbar radiculopathy Lumbar spinal stenosis Lumbar spine pain (~1979) Lumbosacral spondylosis Lymphocytic colitis (~2019) Obesity (BMI 30.0-34.9) Osteoarthritis (~1979) Peripheral neuropathy Pulmonary embolism (~2000) Right hip pain Sacroiliac joint dysfunction Scoliosis (~1949) Seronegative rheumatoid arthritis (~2011) Shoulder pain Spondylolisthesis Status post fall Tinnitus Surgical History Anesthesia H/O eye surgery (02/05/1958) H/O total hysterectomy (05/06/00) History of arthroscopic knee surgery (~05/07/79) History of carpal tunnel surgery (~06/06/13) History of cataract removal with insertion of prosthetic lens (~04/08/21) History of cholecystectomy (02/05/98) History of foot surgery History of knee surgery (05/05/10) History of left knee surgery (~05/06/77) History of left shoulder replacement (02/16/19) History of plastic surgery (~07/30/04) 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) History of uterine fibroid (~08/07/91) Hx of spinal fusion (10/09/18) Hx of tonsillectomy (07/27/1967) Patellar fracture (~04/18/09) S/P foot surgery, left (~02/16/18) S/P removal of ovarian cyst (~09/05/77) Status post left rotator cuff repair (~04/01/08) Status post lumbar spinal fusion Status post right rotator cuff repair (~05/05/07) Temporomandibular joint disorder (~03/08/77) Family History Father History of heart disease Hypertension Hyperlipidemia Mother COPD (chronic obstructive pulmonary disease) Brother COPD (chronic obstructive pulmonary disease) Brother Hyperlipidemia Hypertension Grandfather History of heart disease Grandmother COPD (chronic obstructive pulmonary disease) Asthma Grandfather History of heart disease Grandmother Flu Social History household members: spouse Smoking Status: Never smoker alcohol intake: never substance use type: does not use Meds Home Medications and Allergies Home Medications Medication Instructions Recorded Confirmed Type calcium carbonate 600 mg-vitamin 1 cap PO QPM ##0 02/04/17 01/20/23 History D3 10 mcg (400 unit) capsule (Calcium 600 with Vitamin D3) Adult One Daily Multivitamin 1 tab DAILY 10/16/18 01/20/23 History folic acid 1 mg tablet 1 mg DAILY 11/18/20 01/20/23 History cyclosporine 0.05 % eye drops in a drp EYE-BOTH BID 03/16/22 01/20/23 History dropperette (Restasis) insulin syringe-needle U-100 1 mL #10 ea 03/16/22 01/20/23 History 30 gauge x 1/2 (BD Insulin Syringe Ultra-Fine) methotrexate sodium 25 mg/mL 35 mg SUBCUT 03/16/22 01/20/23 History injection solution omega 9-ofm-woa-fish oil 60 mg-90 1 cap PO BID 03/16/22 01/20/23 History mg-500 mg capsule (Fish Oil) sodium chloride 5 % eye drops drp EYE-BOTH TID 03/16/22 01/20/23 History azelastine 137 mcg (0.1 %) nasal ml intranasal 04/21/22 01/20/23 History spray aerosol fluticasone propionate 110 1 puff inhalation BID 04/21/22 01/20/23 History mcg/actuation HFA aerosol inhaler (Flovent HFA) nystatin 100,000 unit/gram topical 1 applic topical BID 04/21/22 01/20/23 History cream pantoprazole 20 mg tablet,delayed 20 mg PO DAILY 05/20/22 01/20/23 History release losartan 25 mg tablet See Rx Instructions .Route 08/12/22 01/20/23 Rx .COMPLEX #90 tabs zolpidem 10 mg tablet 5 mg (1/2 x 10 mg) PO BEDTIME #45 09/18/22 01/20/23 Rx tabs pregabalin 100 mg capsule (Lyrica) 200 mg (2 x 100 mg) PO BID #120 10/01/22 01/20/23 Rx caps methocarbamol 500 mg tablet 500 mg PO TID PRN muscle spasm #60 10/15/22 01/20/23 Rx tabs albuterol sulfate 90 mcg/actuation 0 mcg inhalation 10/30/22 01/20/23 History aerosol inhaler escitalopram oxalate 20 mg tablet 20 mg PO DAILY #90 tabs 11/16/22 01/20/23 Rx (Lexapro) metoprolol succinate 100 mg 100 mg PO DAILY #100 tabs 11/16/22 01/20/23 Rx tablet,extended release 24 hr mupirocin 2 % topical ointment See Rx Instructions .Route 11/23/22 01/20/23 Rx .COMPLEX #15 grams atorvastatin 40 mg tablet 40 mg PO DAILY #90 tabs 12/01/22 01/20/23 Rx enoxaparin 40 mg/0.4 mL 40 mg (0.4 mL) SUBCUT DAILY 14 01/20/23 01/20/23 Rx subcutaneous syringe (Lovenox) days #4 mL Allergies Allergy/AdvReac Type Severity Reaction Status Date / Time certolizumab pegol Allergy Severe Anaphylaxis Verified 02/21/23 00:32 [From Cimzia] clindamycin [CLINDAMYCIN] Allergy Intermediate ITCHING Verified 01/20/23 13:09 Penicillins [PENICILLINS] Allergy Unknown HIVES AND Verified 01/20/23 13:09 ITCHING (HAPPENED WHEN SHE WAS 7 YRS OLD) Review of Systems Review of Systems ROS: Yes All systems reviewed with the patient and are negative except as otherwise documented Constitutional Constitutional: Reports as per HPI and Reports system reviewed and no additional complaints, except as documented Eyes Eyes: Reports as per HPI and Reports system reviewed and no additional complaints, except as documented ENT Ears, Nose, Mouth, and Throat: Yes as per HPI and Yes system reviewed and no additional complaints, except as documented Cardiovascular Cardiovascular: Reports system reviewed and no additional complaints, except as documented Respiratory Respiratory: Reports system reviewed and no additional complaints, except as documented Gastrointestinal Gastrointestinal: Reports system reviewed and no additional complaints, except as documented Genitourinary Genitourinary: Reports system reviewed and no additional complaints, except as documented Musculoskeletal Musculoskeletal: Reports system reviewed and no additional complaints, except as documented, Reports abnormal gait and Reports numbness Neurologic Neurologic: Reports system reviewed and no additional complaints, except as documented, Reports abnormal gait, Reports confusion and Reports numbness Psychiatric Psychiatric: Reports system reviewed and no additional complaints, except as documented and Reports confusion Exam Vital Signs (past 8 hours): - 02/20/23 20:19 02/20/23 20:26 02/20/23 20:27 Temperature 98.7 F Pulse Rate 71 77 Respiratory Rate 20 18 Blood Pressure 139/65 173/81 H Pulse Oximetry 95 88 L Oxygen Delivery Method Room Air Oxygen Flow Rate 02/20/23 20:27 02/20/23 20:29 02/20/23 20:29 Temperature Pulse Rate 75 72 Respiratory Rate 17 20 Blood Pressure 149/86 H Pulse Oximetry 98 97 Oxygen Delivery Method Nasal Cannula Oxygen Flow Rate 2 02/20/23 20:30 02/20/23 20:30 02/20/23 21:00 Temperature Pulse Rate 70 70 Respiratory Rate 21 18 Blood Pressure 145/77 H Pulse Oximetry 97 98 Oxygen Delivery Method Oxygen Flow Rate 02/20/23 21:01 02/20/23 21:01 02/20/23 21:30 Temperature Pulse Rate 72 67 Respiratory Rate 20 21 Blood Pressure 189/85 H Pulse Oximetry 97 93 Oxygen Delivery Method Oxygen Flow Rate 02/20/23 21:31 02/20/23 21:31 02/20/23 22:00 Temperature Pulse Rate 69 59 L Respiratory Rate 22 18 Blood Pressure 148/62 H Pulse Oximetry 91 95 Oxygen Delivery Method Oxygen Flow Rate 02/20/23 22:01 02/20/23 22:01 02/20/23 22:30 Temperature Pulse Rate 60 Respiratory Rate 23 Blood Pressure 115/56 L 127/60 Pulse Oximetry 97 Oxygen Delivery Method Oxygen Flow Rate 02/20/23 22:30 02/20/23 23:00 02/20/23 23:01 Temperature Pulse Rate 61 56 L Respiratory Rate 20 19 Blood Pressure 102/56 L Pulse Oximetry 95 96 Oxygen Delivery Method Oxygen Flow Rate 02/20/23 23:01 02/20/23 23:30 02/20/23 23:30 Temperature Pulse Rate 56 L 56 L Respiratory Rate 22 24 Blood Pressure 120/55 L Pulse Oximetry 95 96 Oxygen Delivery Method Oxygen Flow Rate 02/21/23 00:00 02/21/23 00:01 02/21/23 00:01 Temperature Pulse Rate 55 L 56 L Respiratory Rate 16 17 Blood Pressure 121/53 L Pulse Oximetry 97 97 Oxygen Delivery Method Oxygen Flow Rate 02/21/23 00:30 02/21/23 00:30 02/21/23 01:01 Temperature Pulse Rate 64 Respiratory Rate 23 Blood Pressure 141/66 H 146/65 H Pulse Oximetry 99 Oxygen Delivery Method Oxygen Flow Rate 02/21/23 01:01 02/21/23 01:05 02/21/23 01:38 Temperature 98.0 F Pulse Rate 70 74 Respiratory Rate 24 22 Blood Pressure 151/72 H 136/71 Pulse Oximetry 98 96 Oxygen Delivery Method Oxygen Flow Rate 02/21/23 01:38 02/21/23 02:00 02/21/23 02:00 Temperature Pulse Rate 70 70 Respiratory Rate 24 20 Blood Pressure 142/66 H Pulse Oximetry 96 94 Oxygen Delivery Method Oxygen Flow Rate 02/21/23 02:08 Temperature Pulse Rate 71 Respiratory Rate 22 Blood Pressure Pulse Oximetry 95 Oxygen Delivery Method Oxygen Flow Rate Oxygen Delivery Method Nasal Cannula Oxygen Flow Rate 2 Const General: cooperative, comfortable and well developed Orientation: alert and oriented x3 HENMT Head: normal to inspection, normocephalic and atraumatic Face and sinus: normal facial exam Mouth: oral mucosae normal and moist mucous membranes Throat: posterior oropharynx normal Eyes General: appearance normal, both eyes and all related structures Pupils: PERRL EOM: EOM intact bilaterally Neck Neck: normal visual inspection and full ROM Chest Chest: normal inspection of the chest Resp Effort & Inspection: normal respiratory effort and able to speak in complete sentences Auscultation: clear to auscultation bilaterally Cardio Palpation: normal PMI Rate: regular rate Rhythm: regular rhythm Heart Sounds: S1 normal and S2 normal GI Inspection: normal to inspection Palpation: soft and no hepatosplenomegaly Auscultation: normal bowel sounds Skin General: no rashes or lesions noted Lesions: no lesions Rashes: no rashes Trauma: no lacerations or abrasions Neuro General: patient alert, patient awake, patient oriented x3 and no focal motor deficits Cranial Nerves: CN's II-XI intact bilaterally Cognition: normal cognition Speech: speech normal Gait: normal gait Motor: muscle tone normal throughout Sensory Exam: no sensory deficits noted Extrem General: full ROM and no calf tenderness Psych Appearance: grossly normal Mental Status: mental status grossly normal Speech and Movement: speech and movement normal Assessment & Plan Assessment and plan (1) Anaphylaxis: Qualifiers: Encounter type: initial encounter Qualified Code(s): T78.2XXA - Anaphylactic shock, unspecified, initial encounter Status: Acute Plan: Admit to ICU for close observation Epinephrine subcu as needed Pepcid IV and methylprednisolone IV Benadryl as needed Telemetry, oxygen saturation monitoring Stop offending medication (2) Seronegative rheumatoid arthritis: Status: Acute Plan: Continue methotrexate, folic acid and methocarbamol Tylenol as needed (3) GERD (gastroesophageal reflux disease): Status: Acute Plan: Pepcid IV and pantoprazole (4) DVT (deep venous thrombosis): Qualifiers: DVT location: lower extremity Affected thrombotic vein of extremity: unspecified vein of extremity Chronicity: unspecified Laterality: unspecified laterality Qualified Code(s): I82.409 - Acute embolism and thrombosis of unspecified deep veins of unspecified lower extremity Status: Acute Plan: Continue Lovenox subcu (5) Benign essential HTN: Status: Acute Plan: Continue losartan and metoprolol (6) Chronic bilateral low back pain with bilateral sciatica: Status: Acute Plan: Recent back surgery. Tylenol as needed Time Spent With Patient Time with patient: 50 to 69 minutes with 50% spent counseling/coordinating care Quality VTE Deep Vein Thrombosis/Pulmonary Embolism Present on Admission: No MIPS - Admit I confirm the patient?s Advance Care Plan is present, Code status is documented, Surrogate decision maker is in patient?s record [If Yes, STOP here]: Yes [facility] - Meds 'Current medications' to include all prescriptions, [id number] products, herbals, cannabis/cannabidiol products, and vitamin/mineral/dietary (nutritional) supplements. I have utilized all available resources to obtain, update, or review the patient?s current medications. [If Yes, STOP here]: Yes
[2023-02-21] MEDS: diphenhydrAMINE 25 MG TABLET PO (02:49)
[2023-02-21 03:08] LABS: MRSA (Nasal) PCR Not Detected (Not Detect)
[2023-02-21] MEDS: EPINEPHrine 1 MG/ML 0.5 MG IM (03:28)
[2023-02-21] MEDS: EPINEPHrine 4 MG in DEXTROSE 5% IN WATER 246 ML 11.25 MG IV (04:06)
[2023-02-21] MEDS: methylPREDNISolone 125 MG/2 ML VIAL 60 MG IV ×3 (04:20→20:12)
--- NOTE | 2023-02-21 06:20 | PC.NURSE ---
Admit/Night Note-Patient admitted to ICU room 227 at 0105. A/Ox4. Able to ambulate to BR with her walker, slow and steady. Initially denied puritis, had slight erythema to skin and mild periorbital edema. No shortness of breath or swelling to throat. VSS. At 0300, she started itching at stomach and hands, hives noted and eyes were getting red and swollen again. PO Benadryl given per prn order, hospitalist notified, epinephrine 0.5mg IM x1 ordered, followed by epinephrine gtt at 3mcg/min. Patients symptoms resolved quickly. had brought in her own C-pap, able to rest.
[2023-02-21] MEDS: BUDESONIDE 0.5 MG/2 ML NEB INH ×2 (07:40→20:05)
[2023-02-21] MEDS: PREGABALIN 50 MG CAPSULE 200 MG PO ×2 (09:12→20:14)
[2023-02-21] MEDS: ATORVASTATIN 20 MG TABLET 40 MG PO (09:13)
[2023-02-21] MEDS: METOPROLOL ER 50 MG TABLET 100 MG PO (09:13)
[2023-02-21] MEDS: FOLIC ACID 1 MG TABLET PO (09:14)
[2023-02-21] MEDS: PANTOPRAZOLE DR 20 MG TABLET PO (09:14)
[2023-02-21] MEDS: ESCITALOPRAM 10 MG TABLET 20 MG PO (09:14)
[2023-02-21] MEDS: ENOXAPARIN 40 MG/0.4 ML SYRINGE SUBCUT (09:14)
[2023-02-21] MEDS: FAMOTIDINE 20 MG/2 ML VIAL IV ×2 (09:14→20:14)
--- NOTE | 2023-02-21 11:38 | CM.DANOTE ---
Reviewed EMR and team rounds for status updates. Met with pt at bedside to introduce self and role. Pt found to be alert, oriented, sitting up in the recliner. Pt is and lives independently in her own home w/spouse. Spouse is DPOA-HC. Payor: [facility] PCP: Dr. Nai Arita Pt is a 72 year-old F with a hx of rheumatoid Arthritis, recent lumbar surgery, and hypertension who just started a new RA injectable medication, Cimzia, yesterday morning. Within a few hours, she developed al anaphylactic reaction resulting in hives, facial and body redness, and swelling in her throat. She was given epinephrine subcu, then started on IV Pepcid, Benadryl, and methylprednisolone. She was admitted to the floor for further eval and tx. Pt states that this is not the first time she's had a reaction to RA meds, and that this is her 5th RA medication that she's tried. Pt denies any need for d/c home resource/support needs, and states that she knows to f/u with her Md Physician Dermatologist post-d/c, and that her spouse will plan to monitor and provide for her care needs. DCP will follow and assist with any further evolving d/c needs. Discharge Planning/Care Management CM Discharge Assessment Start: 02/21/23 09:35 Freq: Status: Active Protocol: Document 02/21/23 11:22 DPL (Rec: 02/21/23 11:37 DPL [id number]) Discharge Planning Assessment Assigned [employer] JUAN Adan DPOA/Assigned Designee Name Cory Hernandez, spouse Contact Information Advance Directives? Yes Advance Directives on File Yes History Provided By Patient,Medical Record Has Patient been admitted in last 30 No days? Prior Living Arrangements House Household Members spouse Type of transporation used prior to Drives own vehicle admit Independent with ADL's Yes Is patient alert and oriented? Yes Comment N/A Caregiver for Another No Comment No anticipated home d/c needs per pt. Barriers to Discharge No Discharge Plan Home Referrals Initiated None needed Whiteboard Updated in Patient Room with Yes name and ext. # of Super[employer] Review Status In Process Please Provide Date Initial DC 02/21/23 Assessment Was Performed
--- NOTE | 2023-02-21 13:08 | PM.HP.1 ---
History of Present Illness History of Present Illness Date Patient Seen: 02/21/23 Chief complaint: cimzia allergic reaction Narrative: 72 years old female with history of hypertension, rheumatoid arthritis on immunosuppressive therapy, history of DVT and PE in 2000, recent back surgery, depression, asthma, chronic back pain, presented to the ER after he developed allergic reaction to Cimzia started yesterday. 2 hours after she took the medication she started developing facial swelling, itching in the back of her throat, redness over her face and body. She also had some mild wheezing and was using home nebulizer. She also took prednisone 20 mg and Annabella prior to arrival. In the ER her allergy progressed to hives and increased complaint of posterior pharyngeal swelling. She was given epinephrine subcu x 2, Pepcid, Benadryl and methylprednisolone 125 mg IV. Vital signs remained stable. Laboratory unremarkable. [facility] Medical History Asthma (~1990) Asthmatic bronchitis Balance problem Benign essential HTN Carpal tunnel syndrome (~2010) Cervical spine disease (~1979) Chronic back pain Chronic bilateral low back pain with bilateral sciatica Chronic cough Chronic pain syndrome Depression (~1986) DVT (deep venous thrombosis) (~2000) Fractures GERD (gastroesophageal reflux disease) (~1997) Knee pain Low back pain Lumbar compression fracture Lumbar radiculopathy Lumbar spinal stenosis Lumbar spine pain (~1979) Lumbosacral spondylosis Lymphocytic colitis (~2019) Obesity (BMI 30.0-34.9) Osteoarthritis (~1979) Peripheral neuropathy Pulmonary embolism (~2000) Right hip pain Sacroiliac joint dysfunction Scoliosis (~1949) Seronegative rheumatoid arthritis (~2011) Shoulder pain Spondylolisthesis Status post fall Tinnitus Surgical History Anesthesia H/O eye surgery (02/05/1958) H/O total hysterectomy (05/06/00) History of arthroscopic knee surgery (~05/07/79) History of carpal tunnel surgery (~06/06/13) History of cataract removal with insertion of prosthetic lens (~04/08/21) History of cholecystectomy (02/05/98) History of foot surgery History of knee surgery (05/05/10) History of left knee surgery (~05/06/77) History of left shoulder replacement (02/16/19) History of plastic surgery (~07/30/04) 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) History of uterine fibroid (~08/07/91) Hx of spinal fusion (10/09/18) Hx of tonsillectomy (07/27/1967) Patellar fracture (~04/18/09) S/P foot surgery, left (~02/16/18) S/P removal of ovarian cyst (~09/05/77) Status post left rotator cuff repair (~04/01/08) Status post lumbar spinal fusion Status post right rotator cuff repair (~05/05/07) Temporomandibular joint disorder (~03/08/77) Family History Father History of heart disease Hypertension Hyperlipidemia Mother COPD (chronic obstructive pulmonary disease) Brother COPD (chronic obstructive pulmonary disease) Brother Hyperlipidemia Hypertension Grandfather History of heart disease Grandmother COPD (chronic obstructive pulmonary disease) Asthma Grandfather History of heart disease Grandmother Flu Social History household members: spouse Smoking Status: Never smoker alcohol intake: never substance use type: does not use Meds Home Medications and Allergies Home Medications Medication Instructions Recorded Confirmed Type calcium carbonate 600 mg-vitamin 1 cap PO QPM ##0 02/04/17 02/21/23 History D3 10 mcg (400 unit) capsule (Calcium 600 with Vitamin D3) Adult One Daily Multivitamin 1 tab DAILY 10/16/18 02/21/23 History folic acid 1 mg tablet 1 mg DAILY 11/18/20 02/21/23 History cyclosporine 0.05 % eye drops in a drp EYE-BOTH BID 03/16/22 01/20/23 History dropperette (Restasis) insulin syringe-needle U-100 1 mL #10 ea 03/16/22 01/20/23 History 30 gauge x 1/2 (BD Insulin Syringe Ultra-Fine) methotrexate sodium 25 mg/mL 25 mg SUBCUT 03/16/22 01/20/23 History injection solution omega 8-pvc-iqc-fish oil 60 mg-90 1 cap PO BID 03/16/22 01/20/23 History mg-500 mg capsule (Fish Oil) sodium chloride 5 % eye drops drp EYE-BOTH TID 03/16/22 01/20/23 History azelastine 137 mcg (0.1 %) nasal ml intranasal 04/21/22 01/20/23 History spray aerosol fluticasone propionate 110 1 puff inhalation BID 04/21/22 01/20/23 History mcg/actuation HFA aerosol inhaler (Flovent HFA) nystatin 100,000 unit/gram topical 1 applic topical BID 04/21/22 01/20/23 History cream pantoprazole 20 mg tablet,delayed 20 mg PO DAILY 05/20/22 01/20/23 History release losartan 25 mg tablet See Rx Instructions .Route 08/12/22 01/20/23 Rx .COMPLEX #90 tabs zolpidem 10 mg tablet 5 mg (1/2 x 10 mg) PO BEDTIME #45 09/18/22 01/20/23 Rx tabs pregabalin 100 mg capsule (Lyrica) 200 mg (2 x 100 mg) PO BID #120 10/01/22 02/21/23 Rx caps methocarbamol 500 mg tablet 500 mg PO TID PRN muscle spasm #60 10/15/22 02/21/23 Rx tabs albuterol sulfate 90 mcg/actuation 0 mcg inhalation 10/30/22 01/20/23 History aerosol inhaler escitalopram oxalate 20 mg tablet 20 mg PO DAILY #90 tabs 11/16/22 02/21/23 Rx (Lexapro) metoprolol succinate 100 mg 100 mg PO DAILY #100 tabs 11/16/22 02/21/23 Rx tablet,extended release 24 hr mupirocin 2 % topical ointment See Rx Instructions .Route 11/23/22 01/20/23 Rx .COMPLEX #15 grams atorvastatin 40 mg tablet 40 mg PO DAILY #90 tabs 12/01/22 02/21/23 Rx enoxaparin 40 mg/0.4 mL 40 mg (0.4 mL) SUBCUT DAILY 14 01/20/23 01/20/23 Rx subcutaneous syringe (Lovenox) days #4 mL acetaminophen 500 mg tablet (Pain 500 mg PO 02/21/23 History Reliever Extra Strength (acetaminophen)) oxycodone-acetaminophen 5 mg-325 1 tab PO Q6H PRN pain 02/21/23 02/21/23 History mg tablet Allergies Allergy/AdvReac Type Severity Reaction Status Date / Time certolizumab pegol Allergy Severe Anaphylaxis Verified 02/21/23 00:32 [From Cimzia] clindamycin [CLINDAMYCIN] Allergy Intermediate ITCHING Verified 01/20/23 13:09 cefazolin Allergy Mild Sneezing Verified 02/21/23 09:30 hydroxychloroquine Allergy Unknown HIVES AND Verified 02/21/23 09:30 [From Plaquenil] ITCHING OF FACE Penicillins [PENICILLINS] Allergy Unknown HIVES AND Verified 02/21/23 09:28 ITCHING Exam Vital Signs (past 8 hours): - 02/21/23 06:00 02/21/23 06:00 02/21/23 06:06 Temperature Pulse Rate 90 86 Respiratory Rate 18 18 Blood Pressure 151/67 H Pulse Oximetry 96 97 Oxygen Delivery Method Oxygen Flow Rate Fraction of Inspired Oxygen 02/21/23 06:30 02/21/23 07:00 02/21/23 07:00 Temperature Pulse Rate 93 H 95 H Respiratory Rate 19 27 H Blood Pressure 151/70 H Pulse Oximetry 97 98 Oxygen Delivery Method Oxygen Flow Rate Fraction of Inspired Oxygen 02/21/23 07:00 02/21/23 07:30 02/21/23 07:40 Temperature Pulse Rate 97 H 98 H Respiratory Rate 34 H 18 Blood Pressure Pulse Oximetry 95 98 Oxygen Delivery Method Nasal Cannula CPAP Room Air Oxygen Flow Rate 0 Fraction of Inspired Oxygen 21 02/21/23 08:00 02/21/23 08:30 02/21/23 09:00 Temperature 98.9 F Pulse Rate 103 H 100 H 100 H Respiratory Rate 50 H 31 H 32 H Blood Pressure Pulse Oximetry 94 91 91 Oxygen Delivery Method Oxygen Flow Rate Fraction of Inspired Oxygen 02/21/23 09:00 02/21/23 09:13 02/21/23 09:30 Temperature Pulse Rate 97 H 94 H Respiratory Rate 37 H Blood Pressure 119/68 119/68 Pulse Oximetry 93 Oxygen Delivery Method Oxygen Flow Rate Fraction of Inspired Oxygen 02/21/23 10:00 02/21/23 10:30 02/21/23 10:34 Temperature Pulse Rate 99 H 101 H Respiratory Rate 43 H 34 H Blood Pressure 139/63 Pulse Oximetry 93 Oxygen Delivery Method Oxygen Flow Rate Fraction of Inspired Oxygen 02/21/23 10:34 02/21/23 11:00 02/21/23 11:00 Temperature Pulse Rate 98 H 95 H Respiratory Rate 35 H 37 H Blood Pressure 149/68 H Pulse Oximetry 94 Oxygen Delivery Method Oxygen Flow Rate Fraction of Inspired Oxygen 02/21/23 11:09 02/21/23 11:18 02/21/23 11:18 Temperature Pulse Rate 91 H 91 H Respiratory Rate 49 H Blood Pressure 149/68 H 149/98 H Pulse Oximetry 91 Oxygen Delivery Method Oxygen Flow Rate Fraction of Inspired Oxygen 02/21/23 11:30 02/21/23 12:00 02/21/23 12:00 Temperature Pulse Rate 87 82 Respiratory Rate 26 H 28 H Blood Pressure 134/66 Pulse Oximetry 89 L 90 L Oxygen Delivery Method Oxygen Flow Rate Fraction of Inspired Oxygen 02/21/23 12:30 02/21/23 12:50 02/21/23 12:50 Temperature Pulse Rate 80 76 Respiratory Rate 29 H 31 H Blood Pressure 138/73 Pulse Oximetry 94 Oxygen Delivery Method Oxygen Flow Rate Fraction of Inspired Oxygen Fraction of Inspired Oxygen 21 SaO2/FiO2 Ratio 466 Oxygen Delivery Method Room Air Oxygen Flow Rate 0 Narrative Exam Narrative: Gen: alert, oriented NAD HEENT: no tomgue or facila swelling Lungs: clear CV: regular Ext: no edema Neuro: intact sensorium, nl affect Objective Labs Labs: Laboratory Results - last 24 hr 02/21/23 01:15 Nasal Screen MRSA (PCR) Not detected Assessment & Plan Assessment & Plan narrative: 1. Anaphylaxis to new RA medication (Cimzia) - pt on epi drip overnight, discontinued AM 02/21 - cont Solumedrol, Pepcid IV, benadryl po/IV prn - stop offending agent - Cimzia has 14 day half-life, therefore recommend pt get sent home on longer steroid taper - home Wednesday if stable 2. Rheumatoid arthritis - cont weekly SQ methotrexate, takes on Sundays and folate 3. Hypertension - pt has been off her losartan since major back surgery 2 mo ago with BP running normal - cont metoprolol 4. Asthma, stable - alb neb/inh prn 5. Insomnia - cont zolpidem HS per routine DVT prevention: enoxaprin Quality VTE Deep Vein Thrombosis/Pulmonary Embolism Present on Admission: No
[2023-02-21] MEDS: diphenhydrAMINE 25 MG TABLET 50 MG PO (14:31)
--- NOTE | 2023-02-21 14:40 | PC.NURSE ---
1430 Pt started complaining of redness and swelling around her eyes and on her r ear. Epi drip discontinued at 1100 and had no sx until now. notified and order received for benadryl 50 PO. Resp deep and even, no swelling in the oral cavity or around neck. Will continue to monitor.
[2023-02-21] MEDS: ZOLPIDEM 5 MG TABLET PO (20:14)
[2023-02-22] VITALS (23 sets, daily range): BP systolic 113–184; BP diastolic 53–78; PULSE 47–69; RESP 18–50; TEMP 36.9–37.1; O2SAT 91–97
[2023-02-22] MEDS: methylPREDNISolone 125 MG/2 ML VIAL 60 MG IV (05:22)
[2023-02-22] MEDS: BUDESONIDE 0.5 MG/2 ML NEB INH (07:18)
[2023-02-22] MEDS: FAMOTIDINE 20 MG/2 ML VIAL IV (09:17)
[2023-02-22] MEDS: ATORVASTATIN 20 MG TABLET 40 MG PO (09:17)
[2023-02-22] MEDS: METOPROLOL ER 50 MG TABLET 100 MG PO (09:17)
[2023-02-22] MEDS: FOLIC ACID 1 MG TABLET PO (09:19)
[2023-02-22] MEDS: ESCITALOPRAM 10 MG TABLET 20 MG PO (09:19)
[2023-02-22] MEDS: PREGABALIN 50 MG CAPSULE 200 MG PO (09:19)
[2023-02-22] MEDS: ENOXAPARIN 40 MG/0.4 ML SYRINGE SUBCUT (09:19)
--- NOTE | 2023-02-22 09:44 | P.DS_ITS ---
History of Present Illness History of Present Illness Date Patient Seen: 02/22/23 Chief complaint: cimzia allergic reaction Narrative: 72 years old female with history of hypertension, rheumatoid arthritis on immunosuppressive therapy, history of DVT and PE in 2000, recent back surgery, d epression, asthma, chronic back pain, presented to the ER after he developed allergic reaction to Cimzia started yesterday. 2 hours after she took the medication she started developing facial swelling, itching in the back of her throat, redness over her face and body. She also had some mild wheezing and was using home nebulizer. She also took prednisone 20 mg and Annabella prior to arrival. In the ER her allergy progressed to hives and increased complaint of posterior pharyngeal swelling. She was given epinephrine subcu x 2, Pepcid, Benadryl and methylprednisolone 125 mg IV. Vital signs remained stable. Laboratory unremarkable. Discharge Providers Provider Date of admission: 02/21/23 00:22 Discharge Date: 02/22/23 Primary care physician: Nai Arita DO Discharge provider: Joaquin Iverson DO Summary Hospital Course Discharge Diagnosis: 1. Anaphylaxis and/or Angioedema to new RA medication (Cimzia) 2. Rheumatoid arthritis 3. Hypertension 4. Asthma, stable 5. Insomnia Hospital Course: This is a 72 year old female with PMH of RA who presented with uticaria and mild facial swelling after Cimzia injection. She was admitted for observation, started on solumedrol, benadryl with improvement. She had resolution of her symptoms prior to discharge, more quickly than expected. I discussed with her phlebotomist medical lab assistant given the medications prolonged half life, whom recommended H2 deborah BID, prn benadryl. If recurrence of uticarial symptoms can start 20 mg prednisone a day, or 10 mg as patient wants to be on as minimal prednisone as possible. She was also prescribed an epipen in case of recurrence of throat swelling. Time Spent with Patient Time spent: Greater than 30 minutes Exam Vital Signs (past 8 hours): - 02/22/23 02:09 02/22/23 02:09 02/22/23 02:13 Temperature Pulse Rate 53 L 49 L Respiratory Rate 32 H 29 H Blood Pressure 138/65 Pulse Oximetry 94 94 Oxygen Delivery Method Oxygen Flow Rate Fraction of Inspired Oxygen 02/22/23 03:00 02/22/23 03:00 02/22/23 03:07 Temperature Pulse Rate 49 L 49 L Respiratory Rate 50 H 50 H Blood Pressure 152/65 H Pulse Oximetry 93 93 Oxygen Delivery Method Oxygen Flow Rate Fraction of Inspired Oxygen 02/22/23 04:45 02/22/23 04:46 02/22/23 04:46 Temperature Pulse Rate 59 L 66 Respiratory Rate 40 H 39 H Blood Pressure 145/67 H Pulse Oximetry 94 94 Oxygen Delivery Method Oxygen Flow Rate Fraction of Inspired Oxygen 02/22/23 05:01 02/22/23 05:01 02/22/23 05:04 Temperature Pulse Rate 55 L 48 L Respiratory Rate 40 H 38 H Blood Pressure 142/56 H Pulse Oximetry 96 95 Oxygen Delivery Method Oxygen Flow Rate Fraction of Inspired Oxygen 02/22/23 06:01 02/22/23 06:01 02/22/23 07:00 Temperature Pulse Rate 47 L 56 L Respiratory Rate 29 H 35 H Blood Pressure 172/73 H Pulse Oximetry 95 93 Oxygen Delivery Method Oxygen Flow Rate Fraction of Inspired Oxygen 02/22/23 07:01 02/22/23 07:01 02/22/23 07:18 Temperature Pulse Rate 55 L 54 L Respiratory Rate 31 H 18 Blood Pressure 159/78 H Pulse Oximetry 93 96 Oxygen Delivery Method Room Air Oxygen Flow Rate 0 Fraction of Inspired Oxygen 21 02/22/23 07:30 02/22/23 08:00 02/22/23 08:01 Temperature 98.7 F Pulse Rate 51 L 53 L Respiratory Rate 29 H 26 H Blood Pressure 184/78 H Pulse Oximetry 95 93 Oxygen Delivery Method Oxygen Flow Rate Fraction of Inspired Oxygen 02/22/23 08:01 02/22/23 08:30 02/22/23 09:00 Temperature Pulse Rate 51 L 60 69 Respiratory Rate 35 H 46 H 47 H Blood Pressure Pulse Oximetry 94 94 91 Oxygen Delivery Method Oxygen Flow Rate Fraction of Inspired Oxygen 02/22/23 09:01 02/22/23 09:01 02/22/23 09:30 Temperature Pulse Rate 67 65 Respiratory Rate 46 H 36 H Blood Pressure 113/53 L Pulse Oximetry 93 96 Oxygen Delivery Method Oxygen Flow Rate Fraction of Inspired Oxygen Fraction of Inspired Oxygen 21 SaO2/FiO2 Ratio 457 Oxygen Delivery Method Room Air Oxygen Flow Rate 0 Narrative Exam Narrative: Gen: alert, oriented NAD HEENT: no tongue or facial swelling Lungs: clear CV: regular Ext: no edema Neuro: intact sensorium, nl affect PFSH Medical History Asthma (~1990) Asthmatic bronchitis Balance problem Benign essential HTN Carpal tunnel syndrome (~2010) Cervical spine disease (~1979) Chronic back pain Chronic bilateral low back pain with bilateral sciatica Chronic cough Chronic pain syndrome Depression (~1986) DVT (deep venous thrombosis) (~2000) Fractures GERD (gastroesophageal reflux disease) (~1997) Knee pain Low back pain Lumbar compression fracture Lumbar radiculopathy Lumbar spinal stenosis Lumbar spine pain (~1979) Lumbosacral spondylosis Lymphocytic colitis (~2019) Obesity (BMI 30.0-34.9) Osteoarthritis (~1979) Peripheral neuropathy Pulmonary embolism (~2000) Right hip pain Sacroiliac joint dysfunction Scoliosis (~1949) Seronegative rheumatoid arthritis (~2011) Shoulder pain Spondylolisthesis Status post fall Tinnitus Surgical History Anesthesia H/O eye surgery (02/05/1958) H/O total hysterectomy (05/06/00) History of arthroscopic knee surgery (~05/07/79) History of carpal tunnel surgery (~06/06/13) History of cataract removal with insertion of prosthetic lens (~04/08/21) History of cholecystectomy (02/05/98) History of foot surgery History of knee surgery (05/05/10) History of left knee surgery (~05/06/77) History of left shoulder replacement (02/16/19) History of plastic surgery (~07/30/04) 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) History of uterine fibroid (~08/07/91) Hx of spinal fusion (10/09/18) Hx of tonsillectomy (07/27/1967) Patellar fracture (~04/18/09) S/P foot surgery, left (~02/16/18) S/P removal of ovarian cyst (~09/05/77) Status post left rotator cuff repair (~04/01/08) Status post lumbar spinal fusion Status post right rotator cuff repair (~05/05/07) Temporomandibular joint disorder (~03/08/77) Family History Father History of heart disease Hypertension Hyperlipidemia Mother COPD (chronic obstructive pulmonary disease) Brother COPD (chronic obstructive pulmonary disease) Brother Hyperlipidemia Hypertension Grandfather History of heart disease Grandmother COPD (chronic obstructive pulmonary disease) Asthma Grandfather History of heart disease Grandmother Flu Social History household members: spouse Smoking Status: Never smoker alcohol intake: never substance use type: does not use Discharge Plan Discharge Plan Patient Disposition: Home Provider Discharge Comment: You were admitted to the hospital with an allergic reaction to Cimzia, this improved with supportive treatments. After discussing with your phlebotomist medical lab assistant, you can discharge home, please continue medication like Zyrtec twice a day, and benadryl as needed. If symptoms return you can start prednisone 20 mg daily and taper as needed. Discharge orders & Medications Prescriptions: New epinephrine 0.3 mg/0.3 mL auto-injector 0.3 mg IM Q5-15M PRN (Reason: anaphylaxis) Qty: 2 0RF Rx Instructions: do not exceed 3 doses per episode prednisone 10 mg tablet 20 mg PO DAILY 14 Days Qty: 28 0RF Continued calcium carbonate-vitamin D3 [Calcium 600 with Vitamin D3] 600 mg(1,500mg) -4 00 unit capsule 1 cap PO QPM Qty: 0 losartan 25 mg tablet See Rx Instructions .ROUTE .COMPLEX Qty: 90 3RF Dose Instruction: TAKE 1 TABLET BY MOUTH DAILY Rx Instructions: TAKE 1 TABLET BY MOUTH DAILY metoprolol succinate 100 mg tablet extended release 24 hr 100 mg PO DAILY Qty: 100 3RF escitalopram oxalate [Lexapro] 20 mg tablet 20 mg PO DAILY Qty: 90 3RF mupirocin 2 % ointment See Rx Instructions .ROUTE .COMPLEX Qty: 15 0RF Rx Instructions: APPLY TO THE AFFECTED AREA TWICE DAILY. CLEAN AND DRY AREA PRIOR TO USE; atorvastatin 40 mg tablet 40 mg PO DAILY Qty: 90 3RF zolpidem 10 mg tablet 5 mg PO BEDTIME Qty: 45 3RF enoxaparin [Lovenox] 40 mg/0.4 mL syringe 40 mg SUBCUT DAILY 14 Days Qty: 4 1RF Rx Instructions: complete 6 wks total fluticasone propionate [Flovent HFA] 110 mcg/actuation HFA aerosol inhaler 1 puff inhalation BID azelastine 137 mcg (0.1 %) aerosol,spray 1 ml intranasal nystatin 100,000 unit/gram cream 1 applic topical BID pregabalin [Lyrica] 100 mg capsule 200 mg PO BID Qty: 120 5RF albuterol sulfate 90 mcg/actuation HFA aerosol inhaler 1 puff inhalation PRN (Reason: asthma) Adult One Daily Multivitamin 1 tab DAILY folic acid 1 mg Tablet 1 mg DAILY acetaminophen [Pain Reliever ES(acetaminophn)] 500 mg tablet 500 mg PO oxycodone-acetaminophen 5-325 mg tablet 1 tab PO Q6H PRN (Reason: pain) pantoprazole 20 mg tablet,delayed release (DR/EC) 20 mg PO DAILY methocarbamol 500 mg tablet 500 mg PO TID PRN (Reason: muscle spasm) Qty: 60 2RF (DME) insulin syringe-needle U-100 [BD Insulin Syringe Ultra-Fine] 1 mL 30 gauge x 1/2 syringe See Rx Instructions .ROUTE .MEDSUPPLY Qty: 10 Patient Comments: USE 1 SYRINGE ONCE A WEEK Rx Instructions: As directed methotrexate sodium 25 mg/mL solution 25 mg SUBCUT USEASDIRECTD cyclosporine [Restasis] 0.05 % dropperette 1 drp EYE-BOTH BID sodium chloride 5 % drops 1 drp EYE-BOTH TID omega 1-ldq-zhp-fish oil [Fish Oil] 60-90-500 mg capsule 1 cap PO BID Follow up/Referrals: Nai Arita DO [Primary Care Provider] - Diet/Activity/Treatments Diet: Diet as Tolerated and Regular Activity: As tolerated no restrictions Visit Report/Discharge Packet Stand Alone Forms: Patient Portal/API, Stroke Signs & Symptoms Discharge Data Primary Care Provider: Nai Arita Quality VTE Deep Vein Thrombosis/Pulmonary Embolism Present on Admission: No
--- NOTE | 2023-02-22 12:24 | CM.DPNOTE ---
DCP Note [employer] reviewed EMR. Per provider, medically stable to dc home today. Per previous CM note, spouse to transport home, no CM needs. Pt left prior to being seen by this author. Plan: home with spouse support, no CM needs identified,. JUAN Newberry
== END 2023-02-22 11:00 | disposition home or self-care (01) | DRG 916 ==
LOC: ED 21:47 → AC 02-21 00:32 → ICU 02-21 10:21 → AC 03-12 14:59 → ICU 03-12 14:59
PROVIDERS: Admitting Provider Internal Medicine; Emergency Provider Emergency Medicine; Family Provider Family Medicine; PCP Family Medicine; Visit Provider Internal Medicine
DX: T88.6XXA Anaphylactic reaction due to adverse effect of correct drug or medicament properly administered, initial encounter (principal); D84.821 Immunodeficiency due to drugs; T45.1X5A Adverse effect of antineoplastic and immunosuppressive drugs, initial encounter; I10 Essential (primary) hypertension; M06.9 Rheumatoid arthritis, unspecified; Z79.620 Long term (current) use of immunosuppressive biologic; Z86.718 Personal history of other venous thrombosis and embolism; J45.909 Unspecified asthma, uncomplicated; G47.00 Insomnia, unspecified; Z82.5 Family history of asthma and other chronic lower respiratory diseases; Z82.49 Family history of ischemic heart disease and other diseases of the circulatory system; Z88.1 Allergy status to other antibiotic agents; Z88.0 Allergy status to penicillin; Z88.8 Allergy status to other drugs, medicaments and biological substances; K21.9 Gastro-esophageal reflux disease without esophagitis; F32.A Depression, unspecified
CPT/HCPCS: 36415; 87797; 94640; 96365; 96367; 96372; 96374; 96375; 96376; 99285; 99291; G0378; J0171; J1200; J1650; J2930; J9250

== ENCOUNTER → 2023-03-05 10:15 | Outpatient (CLI) | payer MEDICARE, SELFPAY ==
[2023-02-21 01:38] VITALS: BMI 34.8
--- NOTE | 2023-03-05 | DI.MG.S_ITS ---
BILATERAL DIGITAL DIAGNOSTIC MAMMOGRAM 3D/2D: 03/05/2023 CLINICAL: Patient returns for a 6 month follow up of the right breast, due for bilateral exam. Comparison is made to exams dated: 08/20/2022 mammogram, 02/06/2022 mammogram, 01/07/2022 mammogram, 10/26/2020 mammogram, 04/26/2019 mammogram, and 03/29/2019 mammogram - [facility]. Both breasts are heterogeneously dense, which may obscure small masses (category c / 51-75% glandular tissue). There is an asymmetry in the right breast anterior depth central to the nipple seen on the craniocaudal view only. This is not significantly changed and was not seen on the prior ultrasound. No other significant masses, calcifications, or other findings are seen in either breast. IMPRESSION: PROBABLY BENIGN The asymmetry in the right breast is probably benign. A follow-up mammogram in 6 months is recommended to demonstrate stability. Based on the Tyrer Cuzick model (a risk assessment model) the patient's lifetime risk is 6.6% and her 10 year risk is 5.4%. According to the ACR, ACS, and NCCN guidelines, an annual breast MRI exam along with mammogram is recommended if the patient's lifetime risk is 20% or greater. This exam was interpreted at Station ID: [id number]. NOTE: For mammograms, a report in lay terms will be sent to the patient. Approximately 15% of breast malignancies will not be visualized mammographically. In the management of a palpable breast mass, a negative mammogram must not discourage biopsy of a clinically suspicious lesion. Electronically Signed By: Jose Guadalupe Gabriel M.D. lc/:03/05/2023 10:55:59 copy to: Justin Gayle letter sent: Followup Recommended ACR BI-RADS Category 3: Probably benign [id number]
== END ==
PROVIDERS: Family Provider Family Medicine; PCP Family Medicine; Referring Provider Family Medicine; Visit Provider Family Medicine
DX: R92.8 Other abnormal and inconclusive findings on diagnostic imaging of breast (principal); N63.10 Unspecified lump in the right breast, unspecified quadrant; N64.89 Other specified disorders of breast
CPT/HCPCS: 77066; G0279

== ENCOUNTER → 2023-03-12 11:04 | Outpatient (CLI) | payer MEDICARE, SELFPAY ==
[2023-02-21 01:38] VITALS: BMI 34.8
--- NOTE | 2023-03-12 | DI.RAD.S_ITS ---
PROCEDURE: XR LUMBAR SPINE 2-3V INDICATIONS: Spinal stenosis, lumbar region with neurogenic claudication TECHNIQUE: 3 views of the lumbar spine were acquired. COMPARISON: [facility], CR, XR LUMBAR SPINE 2-3V, 10/05/2022, 10:32. FINDINGS: Bones: 5 [id number] vertebrae are present. Interval incorporation of L3 into the L4 through S1 surgical fusion. There is an L3-4 disc spacer. Hardware appears in appropriate position and is intact. No unexpected fractures. Trace L3-4 grade 1 anterolisthesis, improved from prior. A chronic L2 superior endplate scalloping deformity is present. No suspicious bony lesions. Soft tissues: Overlying bowel gas pattern is normal. No suspicious soft tissue calcifications. Cholecystectomy clips. IMPRESSION: 1. Interval L3-4 fusion and disc spacer placement. Hardware appears appropriate. 2. There is improved L3-4 spondylolisthesis. Dictated by: Yolette De Paz M.D. on 03/12/2023 at 14:47 Approved by: Yolette De Paz M.D. on 03/12/2023 at 14:50
== END ==
LOC: RAD 11:06
PROVIDERS: Family Provider Family Medicine; PCP Family Medicine; Referring Provider Physician Assistant Surgical; Visit Provider Physician Assistant Surgical
DX: M48.062 Spinal stenosis, lumbar region with neurogenic claudication (principal); Z98.1 Arthrodesis status; M43.16 Spondylolisthesis, lumbar region
CPT/HCPCS: 72100

== ENCOUNTER 2023-03-16 10:46 | Emergency (ER) | payer MEDICARE, SELFPAY ==
[2023-02-21 01:38] VITALS: BMI 34.8
[2023-03-16 10:53] VITALS: BP 148/69; PULSE 72; RESP 20; TEMP 36.5; O2SAT 96; BMI 34.1
--- NOTE | 2023-03-16 11:02 | DI.RAD.S_ITS ---
PROCEDURE: XR CHEST 2V INDICATIONS: cough TECHNIQUE: 2 views of the chest were acquired. COMPARISON: [facility], CR, XR CHEST 2V, 11/13/2022, 11:05. FINDINGS: Surgical changes and devices: Left shoulder arthroplasty. Tendon anchors within the right humeral head. Lungs and pleura: Lungs are clear. No pleural effusions or pneumothorax. Mediastinum: Mediastinal contours are normal. Heart size is normal. Bones and chest wall: No suspicious bony abnormalities. Soft tissues appear unremarkable. IMPRESSION: No acute cardiopulmonary abnormality is seen. Dictated by: Joon Floyd M.D. on 03/16/2023 at 11:31 Approved by: Joon Floyd M.D. on 03/16/2023 at 11:32
[2023-03-16 13:09] VITALS: BP 145/67; PULSE 70; RESP 20; TEMP 37.3; O2SAT 95
--- NOTE | 2023-03-16 15:55 | ED_ITS ---
HPI - URI/Sore Throat <Anitra Herrera PA-C - Last Filed: 03/16/23 16:01> General Chief Complaint: Upper Respiratory Symptoms Stated Complaint: bronchitis pnemonia cant hear from one ear Time Seen by Provider: 03/16/23 13:07 Source: patient Mode of arrival: Ambulatory History of Present Illness HPI Narrative: 72-year-old female presents to the ED with 4 days of URI symptoms and bilateral ear pain. Patient was seen in the walk-in clinic, diagnosed with otitis media, prescribed cefdinir. Patient came in today because her ears continued to be painful and her coughing is worse. Patient is concerned that she might have pneumonia. Patient endorses subjective fevers, cough, nasal congestion. Patient denies chest pain, shortness of breath, nausea, vomiting. Related Data Home Medications Medication Instructions Recorded Confirmed calcium carbonate 600 mg-vitamin 1 cap PO QPM ##0 02/04/17 03/15/23 D3 10 mcg (400 unit) capsule (Calcium 600 with Vitamin D3) Adult One Daily Multivitamin 1 tab DAILY 10/16/18 03/15/23 folic acid 1 mg tablet 1 mg DAILY 11/18/20 03/15/23 cyclosporine 0.05 % eye drops in a 1 drp EYE-BOTH BID 03/16/22 03/15/23 dropperette (Restasis) insulin syringe-needle U-100 1 mL #10 ea 03/16/22 03/15/23 30 gauge x 1/2 (BD Insulin Syringe Ultra-Fine) methotrexate sodium 25 mg/mL 25 mg SUBCUT USEASDIRECTD 03/16/22 03/15/23 injection solution omega 9-kif-[id number]-fish oil 60 mg-90 1 cap PO BID 03/16/22 03/15/23 mg-500 mg capsule (Fish Oil) sodium chloride 5 % eye drops 1 drp EYE-BOTH TID 03/16/22 03/15/23 azelastine 137 mcg (0.1 %) nasal 1 ml intranasal 04/21/22 03/15/23 spray aerosol fluticasone propionate 110 1 puff inhalation BID 04/21/22 03/15/23 mcg/actuation HFA aerosol inhaler (Flovent HFA) nystatin 100,000 unit/gram topical 1 applic topical BID 04/21/22 03/15/23 cream pantoprazole 20 mg tablet,delayed 20 mg PO DAILY 05/20/22 03/15/23 release albuterol sulfate 90 mcg/actuation 1 puff inhalation PRN asthma 10/30/22 03/15/23 aerosol inhaler acetaminophen 500 mg tablet (Pain 500 mg PO 02/21/23 03/15/23 Reliever Extra Strength (acetaminophen)) oxycodone-acetaminophen 5 mg-325 1 tab PO Q6H PRN pain 02/21/23 03/15/23 mg tablet Previous Rx's Medication Instructions Recorded losartan 25 mg tablet See Rx Instructions .Route 08/12/22 .COMPLEX #90 tabs zolpidem 10 mg tablet 5 mg (1/2 x 10 mg) PO BEDTIME #45 09/18/22 tabs pregabalin 100 mg capsule (Lyrica) 200 mg (2 x 100 mg) PO BID #120 10/01/22 caps methocarbamol 500 mg tablet 500 mg PO TID PRN muscle spasm #60 10/15/22 tabs escitalopram oxalate 20 mg tablet 20 mg PO DAILY #90 tabs 11/16/22 (Lexapro) metoprolol succinate 100 mg 100 mg PO DAILY #100 tabs 11/16/22 tablet,extended release 24 hr mupirocin 2 % topical ointment See Rx Instructions .Route 11/23/22 .COMPLEX #15 grams atorvastatin 40 mg tablet 40 mg PO DAILY #90 tabs 12/01/22 enoxaparin 40 mg/0.4 mL 40 mg (0.4 mL) SUBCUT DAILY 14 01/20/23 subcutaneous syringe (Lovenox) days #4 mL epinephrine 0.3 mg/0.3 mL 0.3 mg (0.3 mL) IM Q5-15M PRN 02/22/23 injection, auto-injector anaphylaxis #2 ea cefdinir 300 mg capsule 300 mg PO BID 5 days #10 caps 03/15/23 Allergies Allergy/AdvReac Type Severity Reaction Status Date / Time certolizumab pegol Allergy Severe Anaphylaxis Verified 03/15/23 15:07 [From Cimzia] clindamycin [CLINDAMYCIN] Allergy Intermediate ITCHING Verified 03/15/23 15:07 cefazolin Allergy Mild Sneezing Verified 03/15/23 15:07 hydroxychloroquine Allergy Unknown HIVES AND Verified 03/15/23 15:07 [From Plaquenil] ITCHING OF FACE Penicillins [PENICILLINS] Allergy Unknown HIVES AND Verified 03/15/23 15:07 ITCHING Review of Systems <Anitra Herrera PA-C - Last Filed: 03/16/23 16:01> Constitutional Constitutional: Denies chills, Denies fatigue, Reports fever(s), Denies frequent falls, Denies lethargy and Denies weakness Eyes Eyes: Denies change in vision, Denies eye discharge, Denies irritation and Denies loss of vision ENT Ears, Nose, Mouth, and Throat: Denies change in voice, Denies dizziness, Reports otalgia, Reports nasal congestion, Reports nasal discharge, Denies neck pain, Denies sore throat and Denies throat swelling Cardiovascular Cardiovascular: Denies chest pain, Denies irregular heart rhythm, Denies lightheadedness, Denies palpitations, Denies dyspnea, Denies dyspnea on exertion and Denies orthopnea Respiratory Respiratory: Reports cough, Denies dyspnea, Denies dyspnea on exertion and Denies wheezing Gastrointestinal Gastrointestinal: Denies abdominal pain, Denies change in bowel habits, Denies diarrhea, Denies nausea and Denies vomiting Musculoskeletal Musculoskeletal: Denies neck pain and Denies numbness Integumentary/Breasts Skin/Breast: Denies pruritus, Denies erythema, Denies rash and Denies wounds Neurologic Neurologic: Denies behavioral changes, Denies confusion, Denies dizziness, Denies frequent falls, Denies loss of vision, Denies numbness and Denies weakness Psychiatric Psychiatric: Denies anxiety, Denies behavioral changes, Denies confusion, Denies depression, Denies homicidal ideation and Denies suicidal ideation Endocrine Endocrine: Denies fatigue, Denies flushing and Denies palpitations Hematologic/Lymphatic Hematologic/Lymphatic: Denies easy bruising Allergic/Immunologic Allergic/Immunologic: Denies urticaria, Denies throat swelling and Denies wheezing Patient History <Anitra Herrera PA-C - Last Filed: 03/16/23 16:01> Medical History Lumbar compression fracture Lumbar spinal stenosis Status post fall Knee pain Lumbosacral spondylosis Lumbar radiculopathy Right hip pain Obesity (BMI 30.0-34.9) Balance problem Spondylolisthesis Osteoarthritis (~1979) Chronic cough Peripheral neuropathy Shoulder pain Scoliosis (~1949) Lumbar spine pain (~1979) Fractures Chronic back pain Cervical spine disease (~1979) Carpal tunnel syndrome (~2010) Tinnitus Lymphocytic colitis (~2019) Pulmonary embolism (~2000) Chronic pain syndrome Asthma (~1990) DVT (deep venous thrombosis) (~2000) Benign essential HTN Seronegative rheumatoid arthritis (~2011) Low back pain 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 Asthmatic bronchitis Depression (~1986) GERD (gastroesophageal reflux disease) (~1997) Surgical History Status post lumbar spinal fusion Anesthesia History of cataract removal with insertion of prosthetic lens (~04/08/21) S/P foot surgery, left (~02/16/18) History of carpal tunnel surgery (~06/06/13) Patellar fracture (~04/18/09) Status post left rotator cuff repair (~04/01/08) Status post right rotator cuff repair (~05/05/07) History of foot surgery History of uterine fibroid (~08/07/91) History of arthroscopic knee surgery (~05/07/79) S/P removal of ovarian cyst (~09/05/77) History of left knee surgery (~05/06/77) Temporomandibular joint disorder (~03/08/77) History of plastic surgery (~07/30/04) History of cholecystectomy (02/05/98) H/O total hysterectomy (05/06/00) 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) History of knee surgery (05/05/10) History of left shoulder replacement (02/16/19) Hx of spinal fusion (10/09/18) Hx of tonsillectomy (07/27/1967) H/O eye surgery (02/05/1958) Family History Father History of heart disease Hypertension Hyperlipidemia Mother COPD (chronic obstructive pulmonary disease) Brother COPD (chronic obstructive pulmonary disease) Brother Hyperlipidemia Hypertension Grandfather History of heart disease Grandmother COPD (chronic obstructive pulmonary disease) Asthma Grandfather History of heart disease Grandmother Flu Social History household members: spouse Smoking Status: Never smoker alcohol intake: never substance use type: does not use Smoking Status: Never smoker alcohol intake frequency: 0-2 drinks per day Alcohol type: wine Substance Use Type: does not use Exam <SHAN De Jesus Last Filed: 03/16/23 16:01> Narrative Exam Narrative: Const General:?cooperative, healthy appearing and comfortable [facility] Head:?normal to inspection Ears:? Left tympanum is erythematous, bulging with visualized fluid and pus behind the tympanum. Right tympanum not visualized due to cerumen occlusion. External ear canals normal. Hearing is grossly normal. Nose:?external nose normal Face and sinus:?normal facial exam and sinuses nontender Mouth:?oral mucosae normal Throat:?posterior oropharynx normal Eyes General:?appearance normal, both eyes and all related structures Neck Neck:?normal visual inspection and no lymphadenopathy noted Resp Effort & Inspection:?normal respiratory effort Auscultation:?clear to auscultation bilaterally Cardio Rate:?regular rate Rhythm:?regular rhythm Neuro General:?patient alert, patient awake and patient oriented x3 Initial Vital Signs Initial Vital Signs: Vital Signs Temperature 97.7 F 03/16/23 10:53 Pulse Rate 72 03/16/23 10:53 Respiratory Rate 20 03/16/23 10:53 Blood Pressure 148/69 H 03/16/23 10:53 Pulse Oximetry 96 03/16/23 10:53 Oxygen Delivery Method Room Air 03/16/23 10:53 <Freddy Linares MD - Last Filed: 03/16/23 18:45> Initial Vital Signs Initial Vital Signs: Vital Signs Temperature 97.7 F 03/16/23 10:53 Pulse Rate 72 03/16/23 10:53 Respiratory Rate 20 03/16/23 10:53 Blood Pressure 148/69 H 03/16/23 10:53 Pulse Oximetry 96 03/16/23 10:53 Oxygen Delivery Method Room Air 03/16/23 10:53 Course <SHAN De Jesus Last Filed: 03/16/23 16:01> Orders Ordered: ED Orders 03/16/23 11:02 Chest [XR chest 2V] Stat Vital Signs Vital signs: Vital Signs - 8 hr 03/16/23 10:53 03/16/23 13:09 Temperature 97.7 F 99.1 F Pulse Rate 72 70 Respiratory Rate 20 20 Blood Pressure 148/69 H 145/67 H Pulse Oximetry 96 95 Oxygen Delivery Method Room Air Room Air <Freddy Linares MD - Last Filed: 03/16/23 18:45> Orders Ordered: ED Orders 03/16/23 11:02 Chest [XR chest 2V] Stat Vital Signs Vital signs: Vital Signs - 8 hr 03/16/23 10:53 03/16/23 13:09 Temperature 97.7 F 99.1 F Pulse Rate 72 70 Respiratory Rate 20 20 Blood Pressure 148/69 H 145/67 H Pulse Oximetry 96 95 Oxygen Delivery Method Room Air Room Air MDM - URI/Sore Throat <Anitra Herrera PA-C - Last Filed: 03/16/23 16:01> [facility] Narrative Medical decision making narrative: 72-year-old female presents to the ED with 4 days of URI symptoms and bilateral ear pain. Concern for viral URI versus otitis media versus pneumonia versus other. Physical exam consistent with otitis media of the left ear. The right tympanum not visualized due to cerumen occlusion. Chest x-ray was ordered which was without acute findings. Discussed findings with patient. Recommend continuing cefdinir as prescribed. Recommend adding on [id number] Flonase to reduce swelling and inflammation of the Eustachian tube. Recommend Tylenol, ibuprofen for pain. Recommend follow-up with PCP as soon as possible. ED return precautions were discussed with patient. Patient verbalized understanding. Medical records reviewed: Yes <Freddy Linares MD - Last Filed: 03/16/23 18:45> [facility] Narrative Medical decision making narrative: 72-year-old female presents to the ED with 4 days of URI symptoms and bilateral ear pain. Concern for viral URI versus otitis media versus pneumonia versus other. Physical exam consistent with otitis media of the left ear. The right tympanum not visualized due to cerumen occlusion. Chest x-ray was ordered which was without acute findings. Discussed findings with patient. Recommend continuing cefdinir as prescribed. Recommend adding on [id number] Flonase to reduce swelling and inflammation of the Eustachian tube. Recommend Tylenol, ibuprofen for pain. Recommend follow-up with PCP as soon as possible. ED return precautions were discussed with patient. Patient verbalized understanding. Medical records reviewed: Yes I was immediately available in the department for consultation. Documentation has been reviewed. I agree with assessment and plan. Discharge Plan Departure Patient Disposition: Home Clinical Impression: Otitis media Qualifiers: Otitis media type: unspecified Chronicity: acute Qualified Code(s): H66.90 - Otitis media, unspecified, unspecified ear Instructions: Middle Ear Infection Activity Restrictions/Additional Instructions: You were evaluated in the ED today for a cough and ear pain. Your chest x-ray was normal. Your left ear appears to be infected. Please continue the cefdinir as prescribed for you and finish the full course. Please return to the ED or follow-up with your PCP if your symptoms do not improve over the next 2-3 days. You may also use Flonase per package directions to reduce swelling and inflammation. Flonase is available [id number] at drug stores. You may also use albuterol via nebulizer if you start wheezing. Return to the ED if you experience worsening symptoms, chest pain, shortness of breath. Prescriptions: No Action cefdinir 300 mg capsule 300 mg PO BID 5 Days Qty: 10 0RF calcium carbonate-vitamin D3 [Calcium 600 with Vitamin D3] 600 mg(1,500mg) - 400 unit capsule 1 cap PO QPM Qty: 0 losartan 25 mg tablet See Rx Instructions .ROUTE .COMPLEX Qty: 90 3RF Dose Instruction: TAKE 1 TABLET BY MOUTH DAILY Rx Instructions: TAKE 1 TABLET BY MOUTH DAILY metoprolol succinate 100 mg tablet extended release 24 hr 100 mg PO DAILY Qty: 100 3RF escitalopram oxalate [Lexapro] 20 mg tablet 20 mg PO DAILY Qty: 90 3RF mupirocin 2 % ointment See Rx Instructions .ROUTE .COMPLEX Qty: 15 0RF Rx Instructions: APPLY TO THE AFFECTED AREA TWICE DAILY. CLEAN AND DRY AREA PRIOR TO USE; atorvastatin 40 mg tablet 40 mg PO DAILY Qty: 90 3RF zolpidem 10 mg tablet 5 mg PO BEDTIME Qty: 45 3RF enoxaparin [Lovenox] 40 mg/0.4 mL syringe 40 mg SUBCUT DAILY 14 Days Qty: 4 1RF Rx Instructions: complete 6 wks total fluticasone propionate [Flovent HFA] 110 mcg/actuation HFA aerosol inhaler 1 puff inhalation BID azelastine 137 mcg (0.1 %) aerosol,spray 1 ml intranasal nystatin 100,000 unit/gram cream 1 applic topical BID pregabalin [Lyrica] 100 mg capsule 200 mg PO BID Qty: 120 5RF albuterol sulfate 90 mcg/actuation HFA aerosol inhaler 1 puff inhalation PRN (Reason: asthma) Adult One Daily Multivitamin 1 tab DAILY folic acid 1 mg Tablet 1 mg DAILY acetaminophen [Pain Reliever ES(acetaminophn)] 500 mg tablet 500 mg PO oxycodone-acetaminophen 5-325 mg tablet 1 tab PO Q6H PRN (Reason: pain) epinephrine 0.3 mg/0.3 mL auto-injector 0.3 mg IM Q5-15M PRN (Reason: anaphylaxis) Qty: 2 0RF Rx Instructions: do not exceed 3 doses per episode pantoprazole 20 mg tablet,delayed release (DR/EC) 20 mg PO DAILY methocarbamol 500 mg tablet 500 mg PO TID PRN (Reason: muscle spasm) Qty: 60 2RF (DME) insulin syringe-needle U-100 [BD Insulin Syringe Ultra-Fine] 1 mL 30 gauge x 1/2 syringe See Rx Instructions .ROUTE .MEDSUPPLY Qty: 10 Patient Comments: USE 1 SYRINGE ONCE A WEEK Rx Instructions: As directed methotrexate sodium 25 mg/mL solution 25 mg SUBCUT USEASDIRECTD cyclosporine [Restasis] 0.05 % dropperette 1 drp EYE-BOTH BID sodium chloride 5 % drops 1 drp EYE-BOTH TID omega 1-lcb-fmo-fish oil [Fish Oil] 60-90-500 mg capsule 1 cap PO BID Referrals: Nai Arita DO [Primary Care Provider] - Stand Alone Forms: Patient Portal/API
== END 2023-03-16 13:48 | disposition home or self-care (01) ==
PROVIDERS: Emergency Provider Student in an Organized Health Care Education/Training Program; Family Provider Family Medicine; PCP Family Medicine
DX: H66.91 Otitis media, unspecified, right ear (principal); R05.9 Cough, unspecified
CPT/HCPCS: 71046; 99281; 99283

== ENCOUNTER 2023-03-22 13:21 | Emergency (ER) | payer MEDICARE, SELFPAY ==
[2023-02-21 01:38] VITALS: BMI 34.8
[2023-03-22] VITALS (27 sets, daily range): BP systolic 115–126; BP diastolic 61–69; PULSE 66–96; RESP 20–22; TEMP 36.1–37; O2SAT 90–99; BMI 33.6
--- NOTE | 2023-03-22 13:32 | DI.RAD.S_ITS ---
PROCEDURE: XR CHEST 2V INDICATIONS: cough, wheeze TECHNIQUE: 2 views of the chest were acquired. COMPARISON: [facility], CR, XR CHEST 2V, 03/16/2023, 11:11. FINDINGS: Surgical changes and devices: Partially visualized left shoulder arthroplasty. Lungs and pleura: Lungs are clear. No pleural effusions or pneumothorax. Mediastinum: Mediastinal contours are normal. Heart size is normal. Bones and chest wall: S shaped thoracolumbar spine scoliosis. No suspicious bony abnormalities. Soft tissues appear unremarkable. IMPRESSION: No acute cardiopulmonary abnormality is seen. Dictated by: Angely Caceres MD, PhD on 03/22/2023 at 13:59 Approved by: Angely Caceres MD, PhD on 03/22/2023 at 14:00
--- NOTE | 2023-03-22 13:43 | PC.NURSE ---
Pt came to ED today because she has been experiencing increasing SOB and worsening cough. Pt was seen in the ED on 03/14 because she was not feeling well and was diagnosed with a double ear infection. Pt sent home with 5 day course of antibiotics but she reports that her filter tank tender increased the course to 10 days. Pt is currently on her 8th day of medication and reports that she is not getting any better. She notes that her cough is worsening and when she coughs, it often becomes uncontrollable and she becomes extremely SOB. Pt having difficulty completing sentences due to increased work of breathing. Expiratory wheezing bilaterally throughout and pt states that she has difficulty breathing when lying down and on exhertion. RT called to bedside for eval and treat. Dr Linares notified. Pt spoke with her filter tank tender this morning and they advised her to come to the ED for further evaluation. Pt has hx of RA and asthma and currently taking methotrexate. Pt also also uses home o2. Current o2 sat 95% with continuous neb. Pt a&ox4.
[2023-03-22] MEDS: ALBUTEROL 2.5 MG/3 ML NEB (ADULT) 20 MG INH (13:45)
[2023-03-22] MEDS: ALBUTEROL/IPRATROPIUM 3 ML AMPUL INH (13:45)
--- NOTE | 2023-03-22 13:58 | ED_ITS ---
HPI - SOB/Dyspnea General Chief Complaint: Shortness of Breath/Dyspnea Stated Complaint: asthma dr sent over/possible phneumonia/chest xray Time Seen by Provider: 03/22/23 13:34 Source: patient Mode of arrival: Ambulatory History of Present Illness HPI Narrative: This is a 72-year-old female with a history of asthma never previously requiring admission here today with shortness of breath and cough. She was seen here 3 days ago with similar symptoms had an ear infection also, was taking cefdinir for an ear infection. She was started on prednisone 40 mg a day and then begin to taper to 20 mg today, she has been using her home albuterol inhaler frequently without relief. She has a productive cough with greenish sputum. She has not having chest pain. There has a remote history of pulmonary embolism not presently anticoagulated. Also has a history of seronegative rheumatoid arthritis and is on methotrexate. Patient reports she has really had no improvement since her prednisone was started. Also, she is presently on a continuous albuterol nebulizer which she says is not causing improvement in her breathing. Related Data Home Medications Medication Instructions Recorded Confirmed calcium carbonate 600 mg-vitamin 1 cap PO QPM ##0 02/04/17 03/15/23 D3 10 mcg (400 unit) capsule (Calcium 600 with Vitamin D3) Adult One Daily Multivitamin 1 tab DAILY 10/16/18 03/15/23 folic acid 1 mg tablet 1 mg DAILY 11/18/20 03/15/23 cyclosporine 0.05 % eye drops in a 1 drp EYE-BOTH BID 03/16/22 03/15/23 dropperette (Restasis) insulin syringe-needle U-100 1 mL #10 ea 03/16/22 03/15/23 30 gauge x 1/2 (BD Insulin Syringe Ultra-Fine) omega 5-svb-nat-fish oil 60 mg-90 1 cap PO BID 03/16/22 03/15/23 mg-500 mg capsule (Fish Oil) sodium chloride 5 % eye drops 1 drp EYE-BOTH TID 03/16/22 03/15/23 azelastine 137 mcg (0.1 %) nasal 1 ml intranasal 04/21/22 03/15/23 spray aerosol nystatin 100,000 unit/gram topical 1 applic topical BID 04/21/22 03/15/23 cream pantoprazole 20 mg tablet,delayed 20 mg PO DAILY 05/20/22 03/15/23 release albuterol sulfate 90 mcg/actuation 1 puff inhalation PRN asthma 10/30/22 03/15/23 aerosol inhaler acetaminophen 500 mg tablet (Pain 500 mg PO 02/21/23 03/15/23 Reliever Extra Strength (acetaminophen)) oxycodone-acetaminophen 5 mg-325 1 tab PO Q6H PRN pain 02/21/23 03/15/23 mg tablet etanercept 50 mg/mL (1 mL) mg SUBCUT 03/22/23 subcutaneous pen injector (Enbrel SureClick) fluticasone furoate 200 1 ea inhalation DAILY 03/22/23 03/22/23 mcg-vilanterol 25 mcg/dose inhalation powder (Breo Ellipta) fluticasone propionate 110 2 puff inhalation BID 03/22/23 03/22/23 mcg/actuation HFA aerosol inhaler (Flovent HFA) Previous Rx's Medication Instructions Recorded losartan 25 mg tablet See Rx Instructions .Route 08/12/22 .COMPLEX #90 tabs zolpidem 10 mg tablet 5 mg (1/2 x 10 mg) PO BEDTIME #45 09/18/22 tabs pregabalin 100 mg capsule (Lyrica) 200 mg (2 x 100 mg) PO BID #120 10/01/22 caps methocarbamol 500 mg tablet 500 mg PO TID PRN muscle spasm #60 10/15/22 tabs escitalopram oxalate 20 mg tablet 20 mg PO DAILY #90 tabs 11/16/22 (Lexapro) metoprolol succinate 100 mg 100 mg PO DAILY #100 tabs 11/16/22 tablet,extended release 24 hr mupirocin 2 % topical ointment See Rx Instructions .Route 11/23/22 .COMPLEX #15 grams atorvastatin 40 mg tablet 40 mg PO DAILY #90 tabs 12/01/22 epinephrine 0.3 mg/0.3 mL 0.3 mg (0.3 mL) IM Q5-15M PRN 02/22/23 injection, auto-injector anaphylaxis #2 ea doxycycline hyclate 100 mg capsule 100 mg PO BID #20 caps 03/22/23 doxycycline hyclate 100 mg tablet 100 mg PO BID 7 days #14 tabs 03/22/23 doxycycline hyclate 100 mg tablet 100 mg PO BID 7 days #14 tabs 03/22/23 prednisone 20 mg tablet 40 mg (2 x 20 mg) PO DAILY 5 days 03/22/23 #10 tabs prednisone 50 mg tablet 50 mg PO DAILY #5 tabs 03/22/23 Allergies Allergy/AdvReac Type Severity Reaction Status Date / Time certolizumab pegol Allergy Severe Anaphylaxis Verified 03/22/23 13:24 [From Cimzia] clindamycin [CLINDAMYCIN] Allergy Intermediate ITCHING Verified 03/22/23 13:24 cefazolin Allergy Mild Sneezing Verified 03/22/23 13:24 hydroxychloroquine Allergy Unknown HIVES AND Verified 03/22/23 13:24 [From Plaquenil] ITCHING OF FACE Penicillins [PENICILLINS] Allergy Unknown HIVES AND Verified 03/22/23 13:24 ITCHING Patient History Medical History Lumbar compression fracture Lumbar spinal stenosis Status post fall Knee pain Lumbosacral spondylosis Lumbar radiculopathy Right hip pain Obesity (BMI 30.0-34.9) Balance problem Spondylolisthesis Osteoarthritis (~1979) Chronic cough Peripheral neuropathy Shoulder pain Scoliosis (~1949) Lumbar spine pain (~1979) Fractures Chronic back pain Cervical spine disease (~1979) Carpal tunnel syndrome (~2010) Tinnitus Lymphocytic colitis (~2019) Pulmonary embolism (~2000) Chronic pain syndrome Asthma (~1990) DVT (deep venous thrombosis) (~2000) Benign essential HTN Seronegative rheumatoid arthritis (~2011) Low back pain 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 Asthmatic bronchitis Depression (~1986) GERD (gastroesophageal reflux disease) (~1997) Surgical History Status post lumbar spinal fusion Anesthesia History of cataract removal with insertion of prosthetic lens (~04/08/21) S/P foot surgery, left (~02/16/18) History of carpal tunnel surgery (~06/06/13) Patellar fracture (~04/18/09) Status post left rotator cuff repair (~04/01/08) Status post right rotator cuff repair (~05/05/07) History of foot surgery History of uterine fibroid (~08/07/91) History of arthroscopic knee surgery (~05/07/79) S/P removal of ovarian cyst (~09/05/77) History of left knee surgery (~05/06/77) Temporomandibular joint disorder (~03/08/77) History of plastic surgery (~07/30/04) History of cholecystectomy (02/05/98) H/O total hysterectomy (05/06/00) 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) History of knee surgery (05/05/10) History of left shoulder replacement (02/16/19) Hx of spinal fusion (10/09/18) Hx of tonsillectomy (07/27/1967) H/O eye surgery (02/05/1958) Family History Father History of heart disease Hypertension Hyperlipidemia Mother COPD (chronic obstructive pulmonary disease) Brother COPD (chronic obstructive pulmonary disease) Brother Hyperlipidemia Hypertension Grandfather History of heart disease Grandmother COPD (chronic obstructive pulmonary disease) Asthma Grandfather History of heart disease Grandmother Flu Social History household members: spouse Smoking Status: Never smoker alcohol intake: never substance use type: does not use Smoking Status: Never smoker alcohol intake frequency: 0-2 drinks per day Alcohol type: wine Substance Use Type: does not use Exam Initial Vital Signs Initial Vital Signs: Vital Signs Temperature 97 F L 03/22/23 13:24 Pulse Rate 70 03/22/23 13:24 Respiratory Rate 20 03/22/23 13:24 Blood Pressure 123/69 03/22/23 13:24 Pulse Oximetry 95 03/22/23 13:24 Oxygen Delivery Method Room Air 03/22/23 13:24 Respiratory distress, speaking in 5-6 word sentences, accessory muscle use prolonged expiratory phase and auditory wheezes HENMT Head: normocephalic and atraumatic Neck Neck: supple and No lymphadenopathy Resp Effort & Inspection: abnormal respiratory pattern, audible wheezes, cough, labored, respiratory distress, uses accessory muscles, prolonged expiratory phase and symmetric chest movement Auscultation: wheezes Cardio Other: Tachycardic regular rhythm rate no murmur or gallop Neuro General: patient awake, patient oriented x3 and moves all extremities Course Orders Ordered: Discontinued Medications Albuterol (Albuterol 2.5 Mg/3 Ml Neb (Adult)) 2.5 mg INH Q20M [facility] Stop: 03/22/23 14:26 Albuterol (Albuterol 2.5 Mg/3 Ml Neb (Adult)) 20 mg INH NOW ONE Stop: 03/22/23 13:43 Last Admin: 03/22/23 13:45 Dose: 20 mg Documented By: RADHA Albuterol (Albuterol 2.5 Mg/3 Ml Neb (Adult)) 2.5 mg INH Q20M [facility] Stop: 03/22/23 17:11 Albuterol/Ipratropium (Albuterol/Ipratropium 3 Ml Ampul) 3 ml INH NOW ONE Stop: 03/22/23 13:40 Last Admin: 03/22/23 13:45 Dose: 3 ml Documented By: RADHA Magnesium Sulfate (Magnesium Sulfate) 2 gm in 50 mls @ 25 mls/hr IV NOW ONE Stop: 03/22/23 18:29 Last Infusion: 03/22/23 19:21 Dose: Infused Documented By: SANDHYA Co-signed By: DAMIEN Admin: 03/22/23 17:15 Dose: 25 mls/hr Documented By: MPO Co-signed By: BISHOP Methylprednisolone (Methylprednisolone 125 Mg/2 Ml Vial) 125 mg IV NOW ONE Stop: 03/22/23 14:21 Last Admin: 03/22/23 15:04 Dose: 125 mg Documented By: BISHOP Consultations Consultation #1: Case discussed with the hospitalist Dr. Iverson who has seen the patient. Hospitalist is discharging the patient Vital Signs Vital signs: Vital Signs - 8 hr 03/22/23 13:24 03/22/23 13:46 Temperature 97 F L Pulse Rate 70 74 Respiratory Rate 20 22 Blood Pressure 123/69 Pulse Oximetry 95 94 Oxygen Delivery Method Room Air Room Air Oxygen Flow Rate 0 Fraction of Inspired Oxygen 21 MDM - SOB/Dyspnea Lab Data Lab results narrative: CBC shows a mild leukocytosis. Chemistries are unremarkable, troponin normal, proBNP is minimally elevated and probably not clinically significant. D-dimer was elevated respiratory panel was negative 03/22/23 15:15 03/22/23 15:15 Labs: Lab Results 03/22/23 03/22/23 03/22/23 Range/Units 14:25 15:15 15:35 WBC 13.2 H (4.5-11.0) X10^3/uL RBC 4.53 (4.0-5.2) X10^6/uL Hgb 13.1 (12.0-16.0) g/dL Hct 40.1 (36-46) % MCV 88.6 (80-100) fL MCH 29.0 (26-34) PG MCHC 32.7 (30-36) % RDW 16.1 H (11.6-14.8) % Plt Count 287 (150-400) X10^3/uL Neut % (Auto) 86.0 H (50-75) % Lymph % (Auto) 10.7 L (25-40) % [place] % (Auto) 2.5 L (3-14) % Eos % (Auto) 0.1 L (2-4) % Baso % (Auto) 0.7 (0-2) % Neut # (Auto) 33593 H (7053-2655) /uL Lymph # (Auto) 1400 (3843-4723) /uL [place] # (Auto) 300 (0-900) /uL Eos # (Auto) 0 (0-450) /uL Baso # (Auto) 100 (0-100) /uL D-Dimer Cancelled 1140 H Sodium 135 L (137-145) mmol/L Potassium 3.6 (3.4-5.1) mmol/L Chloride 101 (98-107) mmol/L Carbon Dioxide 23 (22-32) mmol/L BUN 19 H (7-17) mg/dL Creatinine 0.79 (0.52-1.04) mg/dL Estimated GFR > 60 (>60) mL/min BUN/Creatinine Ratio 24.1 H (6-22) Glucose 182 H (80-110) mg/dL Calcium 10.0 (8.4-10.2) mg/dL Magnesium 2.0 (1.6-2.3) mg/dL Total Bilirubin 0.5 (0.2-1.3) mg/dL AST 44 H (14-36) IU/L ALT 58 H (<35) IU/L Alkaline Phosphatase 85 (38-126) U/L Troponin I < 0.012 (0.01-0.034) ng/mL NT-Pro-B Natriuret Pep 151 H (<125) pg/mL Total Protein 7.5 (6.3-8.2) g/dL Albumin 4.0 (3.5-5.0) g/dL Globulin 3.5 (1.7-4.1) g/dL Albumin/Globulin Ratio 1.1 (1.0-2.8) Chlamy pneumoniae PCR Not detected (Not Detect) Adenovirus (PCR) Not detected (Not Detect) B.parapertussis DNA PCR Not detected (Not Detecte) Coronavirus OC43 (PCR) Not detected (Not Detect) Coronavirus HKU1 (PCR) Not detected (Not Detect) Coronavirus 229E (PCR) Not detected (Not Detect) SARS-CoV-2 (PCR) Not detected (Not Detecte) Coronavirus NL63 (PCR) Not detected (Not Detect) Human Metapneumovir PCR Not detected (Not Detect) Influenza Type A (PCR) Not detected (Not Detect) Influenza Type B (PCR) Not detected (Not Detect) M. pneumoniae (PCR) Not detected (Not Detect) Parainfluenza 1 (PCR) Not detected (Not Detect) Parainfluenza 2 (PCR) Not detected (Not Detect) Parainfluenza 3 (PCR) Not detected (Not Detect) Parainfluenza 4 (PCR) Not detected (Not Detect) RSV (PCR) Not detected (Not Detect) Entero/Rhino (PCR) Not detected (Not Detect) Imaging Data CT scan - chest: My Impression: Independent review of CT angio chest, no pulmonary embolism seen no infiltrate Radiologist's Impression: PROCEDURE: CT ANGIO CHEST PE PROTOCOL INDICATIONS: PE suspected, positive dimer TECHNIQUE: After the administration of intravenous contrast, 2 mm thick sections acquired from the pulmonary apices to the posterior costophrenic angles. 3-dimensional maximum intensity projection (MIP) coronal and sagittal reformats were then acquired through the thorax. For radiation dose reduction, the following was used: automated exposure control, adjustment of mA and/or kV according to patient size. COMPARISON: [facility], CR, XR CHEST 2V, 03/22/2023, 13:44. [facility], CT, CT ANGIO CHEST PE PROTOCOL, 02/18/2022, 15:46. FINDINGS: Image quality: Portions of the chest wall are suboptimally evaluated secondary to metallic streak artifact from shoulder arthroplasty. Pulmonary arteries: Pulmonary arteries are normal in size, and demonstrate no intraluminal filling defects to suggest central pulmonary embolism. Lower Neck: No enlarged lymph nodes. Thyroid: No thyroid nodules which require sonographic follow up, per consensus guidelines. Axillae: No enlarged lymph nodes. Chest Wall: Unremarkable. Bones: Unremarkable. Lungs and Pleura: No pneumothorax or pleural effusions. No consolidation or suspicious nodules. Heart: Heart size is normal. No pericardial effusion. Thoracic Vessels: No aortic aneurysm. Mediastinum and Rosi: No enlarged lymph nodes. Esophagus: No wall thickening. No hiatal hernia. Upper Abdomen: Simple hepatic cyst. Gallbladder is been removed. Otherwise, visualized upper abdomen solid organs and bowel loops appear normal. IMPRESSION: No pulmonary embolus. No acute cardiopulmonary process. Dictated by: Ruth Flores M.D. on 03/22/2023 at 17:24 Approved by: Ruth Flores M.D. on 03/22/2023 at 17:27 Chest x-ray: My Impression: No acute disease on my initial interpretation Radiologist's Impression: Radiology reports no acute disease MDM Narrative Medical decision making narrative: 72-year-old female with a history of asthma presenting with persistent dyspnea and wheezing in spite of being on bronchodilators at home and prednisone. She was showing respiratory distress. History with continuous nebulized albuterol ipratropium prednisone and magnesium. Symptoms are improved with this. She has not febrile he does not have an infiltrate on chest x-ray or chest CT I am not inclined to put her on antibiotics at present. D-dimer was abnormal, CT angiogram is negative for pulmonary embolism. Respiratory PCR is negative. I have started her on Solu-Medrol she will be admitted to the hospitalist service. Discharge Plan Departure Patient Disposition: Home Clinical Impression: Asthma exacerbation Qualifiers: Asthma severity: moderate Asthma persistence: persistent Qualified Code(s): J 45.41 - Moderate persistent asthma with (acute) exacerbation Activity Restrictions/Additional Instructions: Continue taking cefdinir, add doxycycline for antibiotic coverage. Restart mehnaz or other antihistamine. Increase prednisone to 40 mg daily again for another 5 days then lower again. Prescriptions: New doxycycline hyclate 100 mg tablet 100 mg PO BID 7 Days Qty: 14 0RF prednisone 20 mg tablet 40 mg PO DAILY 5 Days Qty: 10 0RF doxycycline hyclate 100 mg tablet 100 mg PO BID 7 Days Qty: 14 0RF prednisone 50 mg tablet 50 mg PO DAILY Qty: 5 0RF doxycycline hyclate 100 mg capsule 100 mg PO BID Qty: 20 0RF Continued calcium carbonate-vitamin D3 [Calcium 600 with Vitamin D3] 600 mg(1,500mg) - 400 unit capsule 1 cap PO QPM Qty: 0 losartan 25 mg tablet See Rx Instructions .ROUTE .COMPLEX Qty: 90 3RF Dose Instruction: TAKE 1 TABLET BY MOUTH DAILY Rx Instructions: TAKE 1 TABLET BY MOUTH DAILY metoprolol succinate 100 mg tablet extended release 24 hr 100 mg PO DAILY Qty: 100 3RF escitalopram oxalate [Lexapro] 20 mg tablet 20 mg PO DAILY Qty: 90 3RF mupirocin 2 % ointment See Rx Instructions .ROUTE .COMPLEX Qty: 15 0RF Rx Instructions: APPLY TO THE AFFECTED AREA TWICE DAILY. CLEAN AND DRY AREA PRIOR TO USE; atorvastatin 40 mg tablet 40 mg PO DAILY Qty: 90 3RF zolpidem 10 mg tablet 5 mg PO BEDTIME Qty: 45 3RF azelastine 137 mcg (0.1 %) aerosol,spray 1 ml intranasal nystatin 100,000 unit/gram cream 1 applic topical BID pregabalin [Lyrica] 100 mg capsule 200 mg PO BID Qty: 120 5RF albuterol sulfate 90 mcg/actuation HFA aerosol inhaler 1 puff inhalation PRN (Reason: asthma) Adult One Daily Multivitamin 1 tab DAILY Enbrel SureClick 50 mg/mL (1 mL) pen injector SUBCUT Patient Comments: [NO ORIGINAL SIG] fluticasone furoate-vilanterol [Breo Ellipta] 200-25 mcg/dose blister with device 1 ea inhalation DAILY fluticasone propionate [Flovent HFA] 110 mcg/actuation HFA aerosol inhaler 2 puff inhalation BID folic acid 1 mg Tablet 1 mg DAILY acetaminophen [Pain Reliever ES(acetaminophn)] 500 mg tablet 500 mg PO oxycodone-acetaminophen 5-325 mg tablet 1 tab PO Q6H PRN (Reason: pain) epinephrine 0.3 mg/0.3 mL auto-injector 0.3 mg IM Q5-15M PRN (Reason: anaphylaxis) Qty: 2 0RF Rx Instructions: do not exceed 3 doses per episode pantoprazole 20 mg tablet,delayed release (DR/EC) 20 mg PO DAILY methocarbamol 500 mg tablet 500 mg PO TID PRN (Reason: muscle spasm) Qty: 60 2RF (DME) insulin syringe-needle U-100 [BD Insulin Syringe Ultra-Fine] 1 mL 30 gauge x 1/2 syringe See Rx Instructions .ROUTE .MEDSUPPLY Qty: 10 Patient Comments: USE 1 SYRINGE ONCE A WEEK Rx Instructions: As directed cyclosporine [Restasis] 0.05 % dropperette 1 drp EYE-BOTH BID sodium chloride 5 % drops 1 drp EYE-BOTH TID omega 4-zon-lct-fish oil [Fish Oil] 60-90-500 mg capsule 1 cap PO BID Discontinued prednisone 20 mg tablet PO methotrexate sodium 25 mg/mL solution 25 mg SUBCUT USEASDIRECTD Referrals: Nai Arita DO [Primary Care Provider] - Stand Alone Forms: Patient Portal/API
[2023-03-22] MEDS: methylPREDNISolone 125 MG/2 ML VIAL IV (15:04)
[2023-03-22 15:28] LABS: Add Manual Diff / Slide Review NO; Basophils Absolute Auto 100 /uL (0-100); Basophils Percent Auto 0.7 % (0-2); Eosinophils Absolute Auto 0 /uL (0-450); Eosinophils Percent Auto 0.1 % (2-4); Hematocrit 40.1 % (36-46); Hemoglobin 13.1 g/dL (12.0-16.0); Lymphocytes Absolute Auto 1400 /uL (1100-4500); Lymphocytes Percent Auto 10.7 % (25-40); Mean Corpuscular HGB Conc 32.7 % (30-36); Mean Corpuscular Volume 88.6 fL (80-100); Monocytes Absolute Auto 300 /uL (0-900); Monocytes Percent Auto 2.5 % (3-14); Neutrophils Absolute Auto 11400 /uL (1500-7000); Platelet Count 287 X10^3/uL (150-400); Red Blood Cell Count 4.53 X10^6/uL (4.0-5.2); Red Cell Distribution Width 16.1 % (11.6-14.8); White Blood Cell Count 13.2 X10^3/uL (4.5-11.0)
[2023-03-22 15:35] LABS: Alanine Aminotransferase 58 IU/L (<35); Albumin Globulin Ratio 1.1 (1.0-2.8); Alkaline Phosphatase 85 U/L (38-126); Aspartate Aminotransferase 44 IU/L (14-36); BUN Creatinine Ratio 24.1 (6-22); Bilirubin Total 0.5 mg/dL (0.2-1.3); Blood Urea Nitrogen 19 mg/dL (7-17); Carbon Dioxide 23 mmol/L (22-32); Chloride 101 mmol/L (98-107); Estimated Glomerular Filt Rate > 60 mL/min (>60); Globulin 3.5 g/dL (1.7-4.1); Glucose 182 mg/dL (80-110); HEMOLYSIS < 15 (0-50); Potassium 3.6 mmol/L (3.4-5.1); Sodium 135 mmol/L (137-145); Total Protein 7.5 g/dL (6.3-8.2)
[2023-03-22 15:46] LABS: NT-proBNP (BNP-Adult 18+) 151 pg/mL (<125); Troponin I < 0.012 ng/mL (0.01-0.034)
--- NOTE | 2023-03-22 16:05 | PC.NURSE ---
Pt cough deep and dry. Not improving with neb treatments and lungs wheezy upon auscultation.
[2023-03-22 16:21] LABS: D Dimer 1140 ng/ml (<500)
--- NOTE | 2023-03-22 16:30 | DI.CT.S_ITS ---
PROCEDURE: CT ANGIO CHEST PE PROTOCOL INDICATIONS: PE suspected, positive dimer TECHNIQUE: After the administration of intravenous contrast, 2 mm thick sections acquired from the pulmonary apices to the posterior costophrenic angles. 3-dimensional maximum intensity projection (MIP) coronal and sagittal reformats were then acquired through the thorax. For radiation dose reduction, the following was used: automated exposure control, adjustment of mA and/or kV according to patient size. COMPARISON: [facility], CR, XR CHEST 2V, 03/22/2023, 13:44. [facility], CT, CT ANGIO CHEST PE PROTOCOL, 02/18/2022, 15:46. FINDINGS: Image quality: Portions of the chest wall are suboptimally evaluated secondary to metallic streak artifact from shoulder arthroplasty. Pulmonary arteries: Pulmonary arteries are normal in size, and demonstrate no intraluminal filling defects to suggest central pulmonary embolism. Lower Neck: No enlarged lymph nodes. Thyroid: No thyroid nodules which require sonographic follow up, per consensus guidelines. Axillae: No enlarged lymph nodes. Chest Wall: Unremarkable. Bones: Unremarkable. Lungs and Pleura: No pneumothorax or pleural effusions. No consolidation or suspicious nodules. Heart: Heart size is normal. No pericardial effusion. Thoracic Vessels: No aortic aneurysm. Mediastinum and Rosi: No enlarged lymph nodes. Esophagus: No wall thickening. No hiatal hernia. Upper Abdomen: Simple hepatic cyst. Gallbladder is been removed. Otherwise, visualized upper abdomen solid organs and bowel loops appear normal. IMPRESSION: No pulmonary embolus. No acute cardiopulmonary process. Dictated by: Ruth Flores M.D. on 03/22/2023 at 17:24 Approved by: Ruth Flores M.D. on 03/22/2023 at 17:27
[2023-03-22 16:35] LABS: Adenovirus Not Detected (Not Detect); B. parapertussis Not Detected (Not Detecte); Bordetella pertussis Not Detected (Not Detect); Chlamydophila pneumoniae Not Detected (Not Detect); Coronavirus 229E Not Detected (Not Detect); Coronavirus HKU1 Not Detected (Not Detect); Coronavirus NL 63 Not Detected (Not Detect); Coronavirus OC43 Not Detected (Not Detect); Human Metapneumovirus Not Detected (Not Detect); Human Rhinovirus/Enterovirus Not Detected (Not Detect); Influenza A Not Detected (Not Detect); Influenza B Not Detected (Not Detect); Mycoplasma pneumoniae Not Detected (Not Detect); Parainfluenza Virus 1 Not Detected (Not Detect); Parainfluenza Virus 2 Not Detected (Not Detect); Parainfluenza Virus 3 Not Detected (Not Detect); Parainfluenza Virus 4 Not Detected (Not Detect); Respiratory Syncytial Virus Not Detected (Not Detect); SARS- CoV-2 Not Detected (Not Detecte)
[2023-03-22] MEDS: MAGNESIUM SULFATE 2 GM/50 ML PIGGYBACK IV (17:15)
--- NOTE | 2023-03-22 17:54 | P.CONS_ITS ---
History of Present Illness Consult details Date Patient Seen: 03/22/23 Time Patient Seen: 17:35 Chief complaint: asthma dr sent over/possible phneumonia/chest xray Reason for consult: asthma Requesting provider: Freddy Linares Narrative: This is a 72 year old female with PMH of RA, HTN, DVT/PE in 2000 no longer on AC, depression, asthma, recent allergic reaction to Cimzia (for RA, 1/2 life of 14 days) who presents with shortness of breath and productive cough progressive over the last 10 days. She was seen about a week ago, diagnosed with otitis media and prescribed cefdinir. This was extended by ENT, she was also given a prescription for 40 mg of prednisone which she tapered to 20 mg today. She then developed some wheezing, worsening sputum production, and shortness of breath. She called her ENT whom recommended she go to the ER for evaluation. She felt a bit improved yesterday after taking an mehnaz, but has been off of this recently and only took it for one day. Denies overt fever, chest pain, lower extremity edema or orthopnea. In the emergency room,her vital signs were unremarkable. She was given steroids, and albuterol with some improvement. Labs show mild leukocytosis, elevated D- dimer at 1140, no eiosinophilia, proBNP was 151, troponin negative. No EKG performed. Respiratory panel was negative. CT angio chest was unremarkable with no infiltrates or PE. I discussed with the patient risks and benefits of admission vs discharge home given her normal vital signs and reassuring evaluation. She elected for discharge home after discussion. Meds Home Medications and Allergies Home Medications Medication Instructions Recorded Confirmed Type calcium carbonate 600 mg-vitamin 1 cap PO QPM ##0 02/04/17 03/15/23 History D3 10 mcg (400 unit) capsule (Calcium 600 with Vitamin D3) Adult One Daily Multivitamin 1 tab DAILY 10/16/18 03/15/23 History folic acid 1 mg tablet 1 mg DAILY 11/18/20 03/15/23 History cyclosporine 0.05 % eye drops in a 1 drp EYE-BOTH BID 03/16/22 03/15/23 History dropperette (Restasis) insulin syringe-needle U-100 1 mL #10 ea 03/16/22 03/15/23 History 30 gauge x 1/2 (BD Insulin Syringe Ultra-Fine) omega 3-wlc-bek-fish oil 60 mg-90 1 cap PO BID 03/16/22 03/15/23 History mg-500 mg capsule (Fish Oil) sodium chloride 5 % eye drops 1 drp EYE-BOTH TID 03/16/22 03/15/23 History azelastine 137 mcg (0.1 %) nasal 1 ml intranasal 04/21/22 03/15/23 History spray aerosol nystatin 100,000 unit/gram topical 1 applic topical BID 04/21/22 03/15/23 History cream pantoprazole 20 mg tablet,delayed 20 mg PO DAILY 05/20/22 03/15/23 History release losartan 25 mg tablet See Rx Instructions .Route 08/12/22 03/15/23 Rx .COMPLEX #90 tabs zolpidem 10 mg tablet 5 mg (1/2 x 10 mg) PO BEDTIME #45 09/18/22 03/15/23 Rx tabs pregabalin 100 mg capsule (Lyrica) 200 mg (2 x 100 mg) PO BID #120 10/01/22 03/15/23 Rx caps methocarbamol 500 mg tablet 500 mg PO TID PRN muscle spasm #60 10/15/22 03/15/23 Rx tabs albuterol sulfate 90 mcg/actuation 1 puff inhalation PRN asthma 10/30/22 03/15/23 History aerosol inhaler escitalopram oxalate 20 mg tablet 20 mg PO DAILY #90 tabs 11/16/22 03/15/23 Rx (Lexapro) metoprolol succinate 100 mg 100 mg PO DAILY #100 tabs 11/16/22 03/15/23 Rx tablet,extended release 24 hr mupirocin 2 % topical ointment See Rx Instructions .Route 11/23/22 03/15/23 Rx .COMPLEX #15 grams atorvastatin 40 mg tablet 40 mg PO DAILY #90 tabs 12/01/22 03/15/23 Rx acetaminophen 500 mg tablet (Pain 500 mg PO 02/21/23 03/15/23 History Reliever Extra Strength (acetaminophen)) oxycodone-acetaminophen 5 mg-325 1 tab PO Q6H PRN pain 02/21/23 03/15/23 History mg tablet epinephrine 0.3 mg/0.3 mL 0.3 mg (0.3 mL) IM Q5-15M PRN 02/22/23 03/15/23 Rx injection, auto-injector anaphylaxis #2 ea doxycycline hyclate 100 mg capsule 100 mg PO BID #20 caps 03/22/23 Rx doxycycline hyclate 100 mg tablet 100 mg PO BID 7 days #14 tabs 03/22/23 Rx doxycycline hyclate 100 mg tablet 100 mg PO BID 7 days #14 tabs 03/22/23 Rx etanercept 50 mg/mL (1 mL) mg SUBCUT 03/22/23 History subcutaneous pen injector (Enbrel SureClick) fluticasone furoate 200 1 ea inhalation DAILY 03/22/23 03/22/23 History mcg-vilanterol 25 mcg/dose inhalation powder (Breo Ellipta) fluticasone propionate 110 2 puff inhalation BID 03/22/23 03/22/23 History mcg/actuation HFA aerosol inhaler (Flovent HFA) prednisone 20 mg tablet 40 mg (2 x 20 mg) PO DAILY 5 days 03/22/23 Rx #10 tabs prednisone 50 mg tablet 50 mg PO DAILY #5 tabs 03/22/23 Rx Allergies Allergy/AdvReac Type Severity Reaction Status Date / Time certolizumab pegol Allergy Severe Anaphylaxis Verified 03/22/23 13:24 [From Cimzia] clindamycin [CLINDAMYCIN] Allergy Intermediate ITCHING Verified 03/22/23 13:24 cefazolin Allergy Mild Sneezing Verified 03/22/23 13:24 hydroxychloroquine Allergy Unknown HIVES AND Verified 03/22/23 13:24 [From Plaquenil] ITCHING OF FACE Penicillins [PENICILLINS] Allergy Unknown HIVES AND Verified 03/22/23 13:24 ITCHING Review of Systems Review of Systems Narrative: All other systems reviewed with the patient and are negative unless otherwise stated. Exam Vital Signs (past 8 hours): - 03/22/23 13:24 03/22/23 13:46 Temperature 97 F L Pulse Rate 70 74 Respiratory Rate 20 22 Blood Pressure 123/69 Pulse Oximetry 95 94 Oxygen Delivery Method Room Air Room Air Oxygen Flow Rate 0 Fraction of Inspired Oxygen 21 Fraction of Inspired Oxygen 21 SaO2/FiO2 Ratio 447 Oxygen Delivery Method Room Air Oxygen Flow Rate 0 Narrative Exam Narrative: General:? Patient is well developed and well nourished, in no distress at this time. HEENT:? tender frontal sinuses, mild erythema around b/l eyes, mild posterior pharygeal erythema, no exudates. Neck: supple and symmetric, trachea is midline, no cervical adenopathy. Negative for JVD Chest:? Normal AP diameter and contour without kyphoscoliosis, no tachypnea, equal chest rise bilaterally. Lungs: diffuse inspiratory wheeze, more prominent centrally and near neck. No tachypnea. Cardio:?RRR no m/r/g. Abdomen: S NT ND. Musculoskeletal:? Muscle strength and tone are equal within normal limits, no deformity. Extremities: No edema or joint effusions. Skin:? Pale,? Warm to touch,dry and intact without rashes, ulcerations or petechiae.? Neuro:? Alert and orientated x3,? sensation to touch intact in all extremities, no gross deficits noted of cranial nerves. Psych:? Patient has a well-kept appearance, appropriate affect, mental status attitude thought context and judgment are appropriate for age. Objective Labs 03/22/23 15:15 03/22/23 15:15 Labs: Laboratory Results - last 24 hr 03/22/23 03/22/23 03/22/23 14:25 15:15 15:35 WBC 13.2 H RBC 4.53 Hgb 13.1 Hct 40.1 MCV 88.6 MCH 29.0 MCHC 32.7 RDW 16.1 H Plt Count 287 Neut % (Auto) 86.0 H Lymph % (Auto) 10.7 L Kimble % (Auto) 2.5 L Eos % (Auto) 0.1 L Baso % (Auto) 0.7 Neut # (Auto) 81512 H Lymph # (Auto) 1400 Kimble # (Auto) 300 Eos # (Auto) 0 Baso # (Auto) 100 D-Dimer Cancelled 1140 H Sodium 135 L Potassium 3.6 Chloride 101 Carbon Dioxide 23 BUN 19 H Creatinine 0.79 Estimated GFR > 60 BUN/Creatinine Ratio 24.1 H Glucose 182 H Calcium 10.0 Magnesium 2.0 Total Bilirubin 0.5 AST 44 H ALT 58 H Alkaline Phosphatase 85 Troponin I < 0.012 NT-Pro-B Natriuret Pep 151 H Total Protein 7.5 Albumin 4.0 Globulin 3.5 Albumin/Globulin Ratio 1.1 Chlamy pneumoniae PCR Not detected Adenovirus (PCR) Not detected B.parapertussis DNA PCR Not detected Coronavirus OC43 (PCR) Not detected Coronavirus HKU1 (PCR) Not detected Coronavirus 229E (PCR) Not detected SARS-CoV-2 (PCR) Not detected Coronavirus NL63 (PCR) Not detected Human Metapneumovir PCR Not detected Influenza Type A (PCR) Not detected Influenza Type B (PCR) Not detected M. pneumoniae (PCR) Not detected Parainfluenza 1 (PCR) Not detected Parainfluenza 2 (PCR) Not detected Parainfluenza 3 (PCR) Not detected Parainfluenza 4 (PCR) Not detected RSV (PCR) Not detected Entero/Rhino (PCR) Not detected PFS Medical History Lumbar compression fracture Lumbar spinal stenosis Status post fall Knee pain Lumbosacral spondylosis Lumbar radiculopathy Right hip pain Obesity (BMI 30.0-34.9) Balance problem Spondylolisthesis Osteoarthritis (~1979) Chronic cough Peripheral neuropathy Shoulder pain Scoliosis (~1949) Lumbar spine pain (~1979) Fractures Chronic back pain Cervical spine disease (~1979) Carpal tunnel syndrome (~2010) Tinnitus Lymphocytic colitis (~2019) Pulmonary embolism (~2000) Chronic pain syndrome Asthma (~1990) DVT (deep venous thrombosis) (~2000) Benign essential HTN Seronegative rheumatoid arthritis (~2011) Low back pain 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 Asthmatic bronchitis Depression (~1986) GERD (gastroesophageal reflux disease) (~1997) Surgical History Status post lumbar spinal fusion Anesthesia History of cataract removal with insertion of prosthetic lens (~04/08/21) S/P foot surgery, left (~02/16/18) History of carpal tunnel surgery (~06/06/13) Patellar fracture (~04/18/09) Status post left rotator cuff repair (~04/01/08) Status post right rotator cuff repair (~05/05/07) History of foot surgery History of uterine fibroid (~08/07/91) History of arthroscopic knee surgery (~05/07/79) S/P removal of ovarian cyst (~09/05/77) History of left knee surgery (~05/06/77) Temporomandibular joint disorder (~01/01/78) History of plastic surgery (~07/30/04) History of cholecystectomy (02/05/98) H/O total hysterectomy (05/06/00) 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) History of knee surgery (05/05/10) History of left shoulder replacement (02/16/19) Hx of spinal fusion (10/09/18) Hx of tonsillectomy (07/27/1967) H/O eye surgery (02/05/1958) Family History Father History of heart disease Hypertension Hyperlipidemia Mother COPD (chronic obstructive pulmonary disease) Brother COPD (chronic obstructive pulmonary disease) Brother Hyperlipidemia Hypertension Grandfather History of heart disease Grandmother COPD (chronic obstructive pulmonary disease) Asthma Grandfather History of heart disease Grandmother Flu Social History household members: spouse Tobacco & Substance Use Smoking Status: Never smoker alcohol intake: never substance use type: does not use Assessment & Plan Assessment & Plan narrative: 1. Otitis media, sinusitis, less likely pneumonia - patient presents with shortness of breath, productive cough. Her CTA is negative for PE or PNA. Even if clinical pneumonia her PSI score is low risk and can be managed as an outpatient. - Suspect more upper airway wheezing contributing to her symptoms, and suspect this is the reason a number of medications have not worked. this is likely due to ongoing sinusitis. - There may be an ongoing component of allergic reaction to cimzia as well. But her airway appears intact and she has improved with initial therapies in the ER. - Recommend continuing cefdinir for otitis media, add doxycycline for sinusitis and also MRSA coverage for 7 days. This will also cover any bacterial pneumonia. - Recommend increasing prednisone to 40 mg daily again for another 5 days, then resume taper to 20 mg daily after per her ENT provider. - I discussed risks and benefits of observation in the hospital, or discharge home with the patient and she elected for discharge home. 2. Possible moderate persistent asthma with exacerbation - as above continue home inhalers and albuterol. - increase steroids as noted above. - with normal vital signs and improvement after initial therapies, safe for discharge home.kendell 3. Allergic response to Cimzia - recommend resuming daily mehnaz or other antihistamine daily for at least two weeks for now, theorizing cimzia is still present in her system. 4. HTN - no changes to home medications are recommended. 5. Rheumatoid arthritis. - continue to hold home methotrexate as patient has been. Code: full, surrogate is patient's spouse I have utilized all available immediate resources to obtain, update, or review the patient's current medications. Dispo: discharge from the ER. Discussed with ER provider, whom discussion contributed to the above history, assessment and plan.
== END 2023-03-22 19:05 | disposition home or self-care (01) ==
PROVIDERS: Emergency Provider Emergency Medicine; Family Provider Family Medicine; PCP Family Medicine
DX: J45.41 Moderate persistent asthma with (acute) exacerbation (principal); R05.9 Cough, unspecified; R79.89 Other specified abnormal findings of blood chemistry; Z79.899 Other long term (current) drug therapy; Z20.822 Contact with and (suspected) exposure to COVID-19
CPT/HCPCS: 36415; 71046; 71275; 80053; 83735; 83880; 84484; 85025; 85379; 87633; 94640; 96361; 96374; 99284; J2930; J3475; J7613; Q9967

== ENCOUNTER → 2023-05-24 13:59 | Outpatient (CLI) | payer MEDICARE, SELFPAY ==
[2023-02-21 01:38] VITALS: BMI 34.8
[2023-05-24 14:24] LABS: Add Manual Diff / Slide Review NO; Basophils Absolute Auto 0 /uL (0-100); Basophils Percent Auto 0.4 % (0-2); Eosinophils Absolute Auto 100 /uL (0-450); Eosinophils Percent Auto 1.5 % (2-4); Hematocrit 39.3 % (36-46); Hemoglobin 13.1 g/dL (12.0-16.0); Lymphocytes Absolute Auto 1000 /uL (1100-4500); Lymphocytes Percent Auto 18.1 % (25-40); Mean Corpuscular HGB Conc 33.3 % (30-36); Mean Corpuscular Hemoglobin 29.3 PG (26-34); Monocytes Absolute Auto 500 /uL (0-900); Monocytes Percent Auto 8.7 % (3-14); Neutrophils Absolute Auto 4000 /uL (1500-7000); Neutrophils Percent Auto 71.3 % (50-75); Platelet Count 186 X10^3/uL (150-400); Red Blood Cell Count 4.47 X10^6/uL (4.0-5.2); Red Cell Distribution Width 18.4 % (11.6-14.8); White Blood Cell Count 5.6 X10^3/uL (4.5-11.0)
[2023-05-24 14:44] LABS: Alanine Aminotransferase 33 IU/L (<35); Albumin 4.1 g/dL (3.5-5.0); Albumin Globulin Ratio 1.6 (1.0-2.8); Alkaline Phosphatase 66 U/L (38-126); Aspartate Aminotransferase 34 IU/L (14-36); BUN Creatinine Ratio 20.7 (6-22); Bilirubin Total 0.9 mg/dL (0.2-1.3); Blood Urea Nitrogen 17 mg/dL (7-17); Calcium 9.5 mg/dL (8.4-10.2); Carbon Dioxide 30 mmol/L (22-32); Chloride 103 mmol/L (98-107); Estimated Glomerular Filt Rate > 60 mL/min (>60); Globulin 2.5 g/dL (1.7-4.1); Glucose 133 mg/dL (80-110); HEMOLYSIS < 15 (0-50); Potassium 4.8 mmol/L (3.4-5.1); Sodium 136 mmol/L (137-145); Total Protein 6.6 g/dL (6.3-8.2)
== END ==
PROVIDERS: Family Provider Family Medicine; PCP Family Medicine; Referring Provider Internal Medicine Rheumatology; Visit Provider Internal Medicine Rheumatology
DX: M06.09 Rheumatoid arthritis without rheumatoid factor, multiple sites (principal); Z79.899 Other long term (current) drug therapy
CPT/HCPCS: 36415; 80053; 85025

== ENCOUNTER → 2023-06-14 09:44 | Outpatient (CLI) | payer MEDICARE, SELFPAY ==
[2023-02-21 01:38] VITALS: BMI 34.8
== END ==
LOC: RESP 09:44
PROVIDERS: Family Provider Family Medicine; PCP Family Medicine; Referring Provider Internal Medicine Critical Care Medicine; Visit Provider Internal Medicine Critical Care Medicine
DX: J45.909 Unspecified asthma, uncomplicated (principal)
CPT/HCPCS: 94010; 94726; 94729

== ENCOUNTER 2023-06-22 13:45 | Outpatient (RCR) | payer MEDICARE, SELFPAY ==
--- NOTE | 2023-01-18 17:29 | PT.OIE ---
Current Diagnoses Pain in right ankle and joints of right foot (01/18/23) Spinal stenosis, lumbar region with neurogenic claudication (01/18/23) Radiculopathy, lumbar region (01/18/23) Difficulty in walking, not elsewhere classified (01/18/23) Unsteadiness on feet (01/18/23) Abnormal posture (01/18/23) Weakness (01/18/23) Arthrodesis status (01/18/23) Past Medical History (Last Reviewed 11/13/22 @ 13:04 by Micky Rodriguez MD) Asthma (~1990) Asthmatic bronchitis Balance problem Benign essential HTN Carpal tunnel syndrome (~2010) Cervical spine disease (~1979) Chronic back pain Chronic bilateral low back pain with bilateral sciatica Chronic cough Chronic pain syndrome Depression (~1986) DVT (deep venous thrombosis) (~2000) Fractures GERD (gastroesophageal reflux disease) (~1997) Knee pain Low back pain Lumbar compression fracture Lumbar radiculopathy Lumbar spinal stenosis Lumbar spine pain (~1979) Lumbosacral spondylosis Lymphocytic colitis (~2019) Obesity (BMI 30.0-34.9) Osteoarthritis (~1979) Peripheral neuropathy Pulmonary embolism (~2000) Right hip pain Sacroiliac joint dysfunction Scoliosis (~1949) Seronegative rheumatoid arthritis (~2011) Shoulder pain Spondylolisthesis Status post fall Tinnitus Past Surgical History (Last Reviewed 11/13/22 @ 13:04 by Micky Rodriguez MD) Anesthesia H/O eye surgery (02/05/1958) H/O total hysterectomy (05/06/00) History of arthroscopic knee surgery (~05/07/79) History of carpal tunnel surgery (~06/06/13) History of cataract removal with insertion of prosthetic lens (~04/08/21) History of cholecystectomy (02/05/98) History of foot surgery History of knee surgery (05/05/10) History of left knee surgery (~05/06/77) History of left shoulder replacement (02/16/19) History of plastic surgery (~07/30/04) 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) History of uterine fibroid (~08/07/91) Hx of spinal fusion (10/09/18) Hx of tonsillectomy (07/27/1967) Patellar fracture (~04/18/09) S/P foot surgery, left (~02/16/18) S/P removal of ovarian cyst (~09/05/77) Status post left rotator cuff repair (~04/01/08) Status post lumbar spinal fusion Status post right rotator cuff repair (~05/05/07) Temporomandibular joint disorder (~03/08/77) Visit Care Team Role Provider Type Nai Arita DO Family Provider Physician Primary Care Provider Specialty: Family Practice Address: [address] [place] [address], [facility] [address], [place], [address] Email: [email or web address] Kait Weinstein PA-C Attending Provider Non-Staff Referring Provider Specialty: Medical Address: [address] [place] [address], [facility] [address], [place], [address] Email: Physical Therapy Initial Evaluation PT-OP-A Visit Information Start: 01/14/23 09:03 Freq: Status: Active Protocol: Document 01/18/23 14:37 [facility] (Rec: 01/18/23 16:02 [facility] [id number]) Out-Patient Physical Therapy Visit Information Visit Information Visit Type Initial Evaluation Visit Note 03/17 Visit Start Time 14:35 Visit Stop Time 15:20 Total Visit Minutes 45 Visit Number 1 Number of DIRECTOR OF RELIGIOUS LIFE Visits 0 PT-OP-B Current Condition Start: 01/14/23 09:03 Freq: Status: Active Protocol: Document 01/18/23 14:37 [facility] (Rec: 01/18/23 16:02 [facility] [id number]) Current Condition History of Current Condition Current Complaints XLIF L3-4 fused to L4-S1 prior fusion History of Current Condition Pt had XLIF done (replaced disc w/bone and put a cage in per pt and came in from R ant) at L3-4 and that was connected to her prior L4-s1 fusion. Pt reports her SI and leg pain or R lat hip is improved since surgery. She is on no pain meds and has tylenol for pain right now. She still has problems on med foot and lower leg on R. Pt reports R foot is getting worse and is considering surgery and possibly another injection. She is using a 4WW d/t her R foot mostly as it is shooting pain from heel to lat foot. reports, pt teeters around the house and occasionally counter surfs in the kitchen. She feels a lot stronger already. pt concered about going back to a cane d/t R foot and is scared she will fall. Pt reprots she can get around to the end of the block and back w/o back pain but the foot limits her. She gets tired and a little sore sup to lat iliac crest. Treatment Goals Patient/Caregiver Goals Be able to get out and get exercise; be able to get back to the pool for exercise, be able to drive again, get strength back, improve gait PT-OP-C Subjective Start: 01/14/23 09:03 Freq: Status: Active Protocol: Document 01/18/23 14:37 [facility] (Rec[facility] 01/18/23 [facility]33 [id number] Patient Questionnaires Oswestry Low Back Index Oswestry Score pt did not fully fill out PT-OP-E Functional Tests Start: 01/18/23 16:02 Freq: Status: Active Protocol: Document 01/18/23 14:37 [facility] (Rec: 01/18/23 16:33 [id number] Functional Tests 6 Minute Walk Test Distance 565ft Device Used 4ww Comments stopped at 4 min d/t signfiicant R foot pain 30 Second Sit to Stand Test Score 7.5 w/UEs Comments harris chair PT-OP-F Manual Assessment Start: 01/14/23 09:03 Freq: Status: Active Protocol: Document 01/18/23 14:37 [facility] (Rec: 01/18/23 16:02 [facility] [id number]) Manual Assessments Other Manual Assessments Other Manual Assessments Good healing of R lat scar and post scar-still some scabbing post PT-OP-G Mobility & Gait Start: 01/14/23 09:03 Freq: Status: Active Protocol: Document 01/18/23 14:37 [facility] (Rec: 01/18/23 16:02 [facility] [id number]) OP Gait Assessment Comments Gait Comments Amb w/4WW w/good WB B until starts to fatigue, more dec in stance time RLE and inc pevis R rot w/push off R PT-OP-J Posture/Palpation/Skin Start: 01/14/23 09:03 Freq: Status: Active Protocol: Document 01/18/23 14:37 [facility] (Rec: 01/18/23 16:02 [facility] [id number]) Posture Evaluation Comments Posture Comments slight flexed position at hips still notable PT-OP-M Strength Start: 01/14/23 09:03 Freq: Status: Active Protocol: Document 01/18/23 14:37 [facility] (Rec: 01/18/23 16:02 [facility] [id number]) Hip Strength Hip Manual Muscle Testing Left Flexion (L2) 3 Fair External Rotation 4- Good- Internal Rotation 4+ Good+ Right Flexion (L2) 3 Fair External Rotation 3+ Fair+ Internal Rotation 4- Good- Knee Strength Knee Manual Muscle Testing Left Flexion (S2) 5 Normal Extension (L3) 5 Normal Right Flexion (S2) 5 Normal Extension (L3) 4+ Good+ Ankle/Foot Strength Ankle and Foot Manual Muscle Testing Right Dorsiflexion (L4) 4 Good Plantarflexion (S1) 4 Good Left Dorsiflexion (L4) 4+ Good+ Plantarflexion (S1) 4 Good Comments PF tested seated B PT-OP-T Assessment and Plan Start: 01/14/23 09:03 Freq: Status: Active Protocol: Document 01/18/23 14:37 [facility] (Rec: 01/18/23 16:02 [facility] [id number]) Physical Therapy Assessment Rehab Potential Rehabilitation Potential Good Evaluation Complexity Number of Personal Factors/Comorbidities 3 or More Number of Body Systems Impaired 4 or More Clinical Presentation at Evaluation Unstable Impairments Impairments Activity Tolerance,Balance, Functional Activities, Functional Mobility,Gait,Pain, Posture,ROM,Soft Tissue Mobility,Strength,Transfers Goals activity Short Term Goal (STG) Pt will be able to return to pool for 50% of workout without inc foot or back pain. STG Duration 03/07/23 Senior Living Goal (LTG) Pt will be able to regularly do full pool work out, gentle strength/balance and walking w /o pain greater than 3/10 LTG Duration 04/11/23 gait Impairment 6 min walk w/4WW-565ft w/4WW - stopped after 4 min d/t R foot pain Short Term Goal (STG) Pt will be able to amb at least 800ft w/4WW and amb for full 6 min w/o significant inc of LBP or R foot pain. STG Duration 03/04/23 Senior Living Goal (LTG) Pt will be able to amb at least 900ft w/SPC in 6 min w/o significant inc of LBP or R foot pain. LTG Duration 04/11/23 balance Senior Living Goal (LTG) Pt will show improved balance by ability to do SLS for at least 3 sec B LTG Duration 04/12/23 One Impairment sit to stands (7.5 w/hands) Short Term Goal (STG) Pt will be able to do at least 9 sit to stands w/use of hands from standard chair to show improved functional strength. STG Duration 03/06/23 Equipment Cleaner And Tester Goal (LTG) Pt will be able to do at least 2 sit to stands w/o use of hands from standard chair to show improved functional strength and dec risk for falls. LTG Duration 04/12/23 Assessment Summary Assessment Pt presents 4 weeks s/p L3-4 XLIF w/connection to fusion of L4-S1 with overall good pain control along w/dec SI pain, LE pain and hip pain, but has had over the past year recent inc R foot pain that limits her activity. She is closely followed by a supply requirements officer who she has contacted re: possible further injection until considering surgery next year. She has poor balance and overall dec core and LE strength. Pt would bneefit from skilled PT to improve functional capacity and dec pain along w/improve strength and balance. D/t R foot history (>L), pt will have a more compliacted recovery as she oh shave the diagnosis of Charcot foot. Physical Therapy Plan Frequency and Duration Frequency of Treatment 2x/Week Duration of treatment (weeks) 12 Plan of Care Start Date 01/18/23 Plan of Care End Date 04/12/23 Therapeutic Interventions Therapeutic Interventions Balance Training,Coordination Training,Gait Training,Home Exercise Program,Joint Mobilizations,Manual Therapy, Neuromuscular Re-education, Orthotic/Prosthetic Management ,Patient/Caregiver Education, Self-Care/Home Management,Soft Tissue Mobilization,Taping, Therapeutic Activities, Therapeutic Exercises Modalities Cold Pack/Ice Massage,Electric Stimulation,Hot Packs, Ultrasound Next Visit Focus/Plan Next Note Type Treatment Note Next Visit Plan HEP:supine core progression, give sit to stands, DF/PF strengthening exercises (w/o pain), try standing balance activities, manual to scar lat
--- NOTE | 2023-01-18 17:29 | PT.OPPOC ---
Physical, Occupational & Speech Therapy At [facility] Current Diagnoses Pain in right ankle and joints of right foot (01/18/23) Spinal stenosis, lumbar region with neurogenic claudication (01/18/23) Radiculopathy, lumbar region (01/18/23) Difficulty in walking, not elsewhere classified (01/18/23) Unsteadiness on feet (01/18/23) Abnormal posture (01/18/23) Weakness (01/18/23) Arthrodesis status (01/18/23) Visit Care Team Role Provider Type Nai Arita DO Family Provider Physician Primary Care Provider Specialty: Family Practice Address: [address] [place] [address], [address], [facility] Email: [email or web address] Attending Provider Non-Staff Referring Provider Specialty: Medical Address: [address] [place] [address], [address] [place] [address], [facility] Email: Plan Of Care PT-OP-T Assessment and Plan Start: 01/14/23 09:03 Freq: Status: Active Protocol: Document 01/18/23 14:37 [facility] (Rec: 01/18/23 16:02 [facility] [id number]) Physical Therapy Assessment Rehab Potential Rehabilitation Potential Good Evaluation Complexity Number of Personal Factors/Comorbidities 3 or More Number of Body Systems Impaired 4 or More Clinical Presentation at Evaluation Unstable Impairments Impairments Activity Tolerance,Balance, Functional Activities, Functional Mobility,Gait,Pain, Posture,ROM,Soft Tissue Mobility,Strength,Transfers Goals activity Short Term Goal (STG) Pt will be able to return to pool for 50% of workout without inc foot or back pain. STG Duration 03/07/23 [facility] Goal (LTG) Pt will be able to regularly do full pool work out, gentle strength/balance and walking w /o pain greater than 3/10 LTG Duration 04/11/23 gait Impairment 6 min walk w/4WW-565ft w/4WW - stopped after 4 min d/t R foot pain Short Term Goal (STG) Pt will be able to amb at least 800ft w/4WW and amb for full 6 min w/o significant inc of LBP or R foot pain. STG Duration 03/04/23 Paper Bundler Goal (LTG) Pt will be able to amb at least 900ft w/SPC in 6 min w/o significant inc of LBP or R foot pain. LTG Duration 04/11/23 balance Paper Bundler Goal (LTG) Pt will show improved balance by ability to do SLS for at least 3 sec B LTG Duration 04/12/23 One Impairment sit to stands (7.5 w/hands) Short Term Goal (STG) Pt will be able to do at least 9 sit to stands w/use of hands from standard chair to show improved functional strength. STG Duration 03/06/23 Paper Bundler Goal (LTG) Pt will be able to do at least 2 sit to stands w/o use of hands from standard chair to show improved functional strength and dec risk for falls. LTG Duration 04/12/23 Assessment Summary Assessment Pt presents 4 weeks s/p L3-4 XLIF w/connection to fusion of L4-S1 with overall good pain control along w/dec SI pain, LE pain and hip pain, but has had over the past year recent inc R foot pain that limits her activity. She is closely followed by a locum tenens who she has contacted re: possible further injection until considering surgery next year. She has poor balance and overall dec core and LE strength. Pt would bneefit from skilled PT to improve functional capacity and dec pain along w/improve strength and balance. D/t R foot history (>L), pt will have a more compliacted recovery as she oh shave the diagnosis of Charcot foot. Physical Therapy Plan Frequency and Duration Frequency of Treatment 2x/Week Duration of treatment (weeks) 12 Plan of Care Start Date 01/18/23 Plan of Care End Date 04/12/23 Therapeutic Interventions Therapeutic Interventions Balance Training,Coordination Training,Gait Training,Home Exercise Program,Joint Mobilizations,Manual Therapy, Neuromuscular Re-education, Orthotic/Prosthetic Management ,Patient/Caregiver Education, Self-Care/Home Management,Soft Tissue Mobilization,Taping, Therapeutic Activities, Therapeutic Exercises Modalities Cold Pack/Ice Massage,Electric Stimulation,Hot Packs, Ultrasound Next Visit Focus/Plan Next Note Type Treatment Note Next Visit Plan HEP:supine core progression, give sit to stands, DF/PF strengthening exercises (w/o pain), try standing balance activities, manual to scar lat Plan of Care Dates Plan of Care Start Date 01/18/23 Plan of Care End Date 04/12/23 Electronically Signed by: Debbie Beyer, PT 01/18/23 2933 If you are in agreement with this Plan of Care, please return a signed and dated copy. I have reviewed this Plan of Care and certify that the skilled therapy services above are required to meet the patient?s needs. Physician Signature Date Printed Name and Credentials Clinical Instructor Signature Printed Name and Credentials
--- NOTE | 2023-01-21 15:13 | PT.OTN ---
Current Diagnoses Pain in right ankle and joints of right foot (01/21/23) Spinal stenosis, lumbar region with neurogenic claudication (01/21/23) Radiculopathy, lumbar region (01/21/23) Difficulty in walking, not elsewhere classified (01/21/23) Unsteadiness on feet (01/21/23) Abnormal posture (01/21/23) Weakness (01/21/23) Arthrodesis status (01/21/23) Physical Therapy Treatment Note PT-OP-A Visit Information Start: 01/14/23 09:03 Freq: Status: Active Protocol: Document 01/21/23 08:35 [facility] (Rec: 01/21/23 15:13 [facility] [id number]) Out-Patient Physical Therapy Visit Information Visit Information Visit Type Treatment Note Visit Note 04/17 Visit Start Time 09:02 Visit Stop Time 09:55 Total Visit Minutes 53 Visit Number 2 Number of [employer] AND HUMANITIES CHAIR Visits 0 PT-OP-B Current Condition Start: 01/14/23 09:03 Freq: Status: Active Protocol: Document 01/18/23 14:37 [facility] (Rec: 01/18/23 16:02 [facility] [id number]) Current Condition History of Current Condition Current Complaints XLIF L3-4 fused to L4-S1 prior fusion History of Current Condition Pt had XLIF done (replaced disc w/bone and put a cage in per pt and came in from R ant) at L3-4 and that was connected to her prior L4-s1 fusion. Pt reports her SI and leg pain or R lat hip is improved since surgery. She is on no pain meds and has tylenol for pain right now. She still has problems on med foot and lower leg on R. Pt reports R foot is getting worse and is considering surgery and possibly another injection. She is using a 4WW d/t her R foot mostly as it is shooting pain from heel to lat foot. reports, pt teeters around the house and occasionally counter surfs in the kitchen. She feels a lot stronger already. pt concered about going back to a cane d/t R foot and is scared she will fall. Pt reprots she can get around to the end of the block and back w/o back pain but the foot limits her. She gets tired and a little sore sup to lat iliac crest. Treatment Goals Patient/Caregiver Goals Be able to get out and get exercise; be able to get back to the pool for exercise, be able to drive again, get strength back, improve gait PT-OP-C Subjective Start: 01/14/23 09:03 Freq: Status: Active Protocol: Document 01/21/23 08:35 [facility] (Rec: 01/21/23 15:13 [facility] [id number]) OP-PT Subjective Patient Comments Patient Comments Pt reports the night after eval :I went to bed and developed groin pain and pain across my back-more of an aching muscular pain. I ended up taking half an oxy and then ? Percocet later in the night because I am out of oxy, plus a methocarbonal. She no longer has the R groin pain but does note some back tightness and some R buttocks discomort but took a methocarbonal and a tylenol today. Has not tried ice. PT-OP-E Functional Tests Start: 01/18/23 16:02 Freq: Status: Active Protocol: Document 01/18/23 14:37 [facility] (Rec: 01/18/23 16:33 [facility] [id number]) Functional Tests 6 Minute Walk Test Distance 565ft Device Used 4ww Comments stopped at 4 min d/t signfiicant R foot pain 30 Second Sit to Stand Test Score 7.5 w/UEs Comments harris chair PT-OP-F Manual Assessment Start: 01/14/23 09:03 Freq: Status: Active Protocol: Document 01/18/23 14:37 [facility] (Rec: 01/18/23 16:02 [facility] [id number]) Manual Assessments Other Manual Assessments Other Manual Assessments Good healing of R lat scar and post scar-still some scabbing post PT-OP-G Mobility & Gait Start: 01/14/23 09:03 Freq: Status: Active Protocol: Document 01/18/23 14:37 [facility] (Rec: 01/18/23 16:02 [facility] [id number]) OP Gait Assessment Comments Gait Comments Amb w/4WW w/good WB B until starts to fatigue, more dec in stance time RLE and inc pevis R rot w/push off R PT-OP-J Posture/Palpation/Skin Start: 01/14/23 09:03 Freq: Status: Active Protocol: Document 01/18/23 14:37 [facility] (Rec: 01/18/23 16:02 [facility] [id number]) Posture Evaluation Comments Posture Comments slight flexed position at hips still notable PT-OP-M Strength Start: 01/14/23 09:03 Freq: Status: Active Protocol: Document 01/18/23 14:37 [facility] (Rec: 01/18/23 16:02 [facility] [id number]) Hip Strength Hip Manual Muscle Testing Left Flexion (L2) 3 Fair External Rotation 4- Good- Internal Rotation 4+ Good+ Right Flexion (L2) 3 Fair External Rotation 3+ Fair+ Internal Rotation 4- Good- Knee Strength Knee Manual Muscle Testing Left Flexion (S2) 5 Normal Extension (L3) 5 Normal Right Flexion (S2) 5 Normal Extension (L3) 4+ Good+ Ankle/Foot Strength Ankle and Foot Manual Muscle Testing Right Dorsiflexion (L4) 4 Good Plantarflexion (S1) 4 Good Left Dorsiflexion (L4) 4+ Good+ Plantarflexion (S1) 4 Good Comments PF tested seated B PT-OP-Q Treatments Start: 01/14/23 09:03 Freq: Status: Active Protocol: Document 01/21/23 08:35 [facility] (Rec: 01/21/23 15:13 [facility] [id number]) Therapeutic Exercises Supine Exercises kegal Reps/Minutes 10 Comments cues for performance and for release diaphragmatic breath Side bilateral Reps/Minutes 10 Comments cues tactile at abdomen that sides Manual Therapy Treatment Soft Tissue Mobilization scar Body Location R lat Mobilization Type Myofascial Release,Sustained Pressure Intensity/Depth sup to mod Body Position Sidelying Self-Care/Home Management Treatment Education Other Education 12 min: discussion w/pt that she will have to go slow w/PT. discussed to make sure she is letting PT know of any discomfort or pressure in back or hips. Edu that our goal will be first stabilization based. Edu after initial completion of voiding to take a deep breath and do a kegal and focus on the full let go of kegal to see if seh can get more out. PT-OP-T Assessment and Plan Start: 01/14/23 09:03 Freq: Status: Active Protocol: Document 01/21/23 08:35 [facility] (Rec: 01/21/23 15:13 [facility] [id number]) Physical Therapy Assessment Goals activity Short Term Goal (STG) Pt will be able to return to pool for 50% of workout without inc foot or back pain. STG Duration 03/07/23 Hopper Attendant Goal (LTG) Pt will be able to regularly do full pool work out, gentle strength/balance and walking w /o pain greater than 3/10 LTG Duration 04/11/23 gait Impairment 6 min walk w/4WW-565ft w/4WW - stopped after 4 min d/t R foot pain Short Term Goal (STG) Pt will be able to amb at least 800ft w/4WW and amb for full 6 min w/o significant inc of LBP or R foot pain. STG Duration 03/04/23 Half-Way Goal (LTG) Pt will be able to amb at least 900ft w/SPC in 6 min w/o significant inc of LBP or R foot pain. LTG Duration 04/11/23 balance Impairment Half-Way Goal (LTG) Pt will show improved balance by ability to do SLS for at least 3 sec B LTG Duration 04/12/23 One Impairment sit to stands (7.5 w/hands) Short Term Goal (STG) Pt will be able to do at least 9 sit to stands w/use of hands from standard chair to show improved functional strength. STG Duration 03/06/23 Hopper Attendant Goal (LTG) Pt will be able to do at least 2 sit to stands w/o use of hands from standard chair to show improved functional strength and dec risk for falls. LTG Duration 04/12/23 Assessment Summary Assessment Pt reports feeling looser after manual treatment. She verablized understanding re: going slow w/PT and not trying to push it. She had dec L pelvic floor activiation during kegal. Likely d/t mm imbalances. Physical Therapy Plan Frequency and Duration Frequency of Treatment 2x/Week Duration of treatment (weeks) 12 Plan of Care Start Date 01/18/23 Plan of Care End Date 04/12/23 Next Visit Focus/Plan Next Note Type Treatment Note Next Visit Plan supine core progress, review kegal exercise & diaphragmatic breathing, try DF/PF strengthening & gentle supine core bracing
--- NOTE | 2023-01-25 17:23 | PT.OTN ---
Current Diagnoses Pain in right ankle and joints of right foot (01/25/23) Spinal stenosis, lumbar region with neurogenic claudication (01/25/23) Radiculopathy, lumbar region (01/25/23) Difficulty in walking, not elsewhere classified (01/25/23) Unsteadiness on feet (01/25/23) Abnormal posture (01/25/23) Weakness (01/25/23) Arthrodesis status (01/25/23) Physical Therapy Treatment Note PT-OP-A Visit Information Start: 01/14/23 09:03 Freq: Status: Active Protocol: Document 01/25/23 13:54 [facility] (Rec: 01/25/23 18:20 [facility] [id number]) Out-Patient Physical Therapy Visit Information Visit Information Visit Type Treatment Note Visit Note 05/15 Visit Start Time 13:51 Visit Stop Time 14:41 Total Visit Minutes 50 Visit Number 3 Number of GENERATOR TECHNICIAN Visits 0 PT-OP-B Current Condition Start: 01/14/23 09:03 Freq: Status: Active Protocol: Document 01/18/23 14:37 [facility] (Rec: 01/18/23 16:02 [facility] [id number]) Current Condition History of Current Condition Current Complaints XLIF L3-4 fused to L4-S1 prior fusion History of Current Condition Pt had XLIF done (replaced disc w/bone and put a cage in per pt and came in from R ant) at L3-4 and that was connected to her prior L4-s1 fusion. Pt reports her SI and leg pain or R lat hip is improved since surgery. She is on no pain meds and has tylenol for pain right now. She still has problems on med foot and lower leg on R. Pt reports R foot is getting worse and is considering surgery and possibly another injection. She is using a 4WW d/t her R foot mostly as it is shooting pain from heel to lat foot. reports, pt teeters around the house and occasionally counter surfs in the kitchen. She feels a lot stronger already. pt concered about going back to a cane d/t R foot and is scared she will fall. Pt reprots she can get around to the end of the block and back w/o back pain but the foot limits her. She gets tired and a little sore sup to lat iliac crest. Treatment Goals Patient/Caregiver Goals Be able to get out and get exercise; be able to get back to the pool for exercise, be able to drive again, get strength back, improve gait PT-OP-C Subjective Start: 01/14/23 09:03 Freq: Status: Active Protocol: Document 01/25/23 13:54 [facility] (Rec: 01/25/23 18:20 [facility] [id number]) OP-PT Subjective Patient Comments Patient Comments Pt reports she is noticing some numbness in lower leg but it has been like that since her fall w/her fx. Her back is sore if she in standing in the kitchen for greater than 20 min. Notes on , she walked the entire block in the AM then did another entire block walk in the PM and was so exhausted that she had to lay down. She didn't check her BP but now wonders if it was dehydration and BP combo. She has done only 1 full block walk since. PT-OP-E Functional Tests Start: 01/18/23 16:02 Freq: Status: Active Protocol: Document 01/18/23 14:37 [facility] (Rec: 01/18/23 16:33 [facility] [id number]) Functional Tests 6 Minute Walk Test Distance 565ft Device Used 4ww Comments stopped at 4 min d/t signfiicant R foot pain 30 Second Sit to Stand Test Score 7.5 w/UEs Comments harris chair PT-OP-F Manual Assessment Start: 01/14/23 09:03 Freq: Status: Active Protocol: Document 01/18/23 14:37 [facility] (Rec: 01/18/23 16:02 [facility] [id number]) Manual Assessments Other Manual Assessments Other Manual Assessments Good healing of R lat scar and post scar-still some scabbing post PT-OP-G Mobility & Gait Start: 01/14/23 09:03 Freq: Status: Active Protocol: Document 01/18/23 14:37 [facility] (Rec: 01/18/23 16:02 [facility] [id number]) OP Gait Assessment Comments Gait Comments Amb w/4WW w/good WB B until starts to fatigue, more dec in stance time RLE and inc pevis R rot w/push off R PT-OP-J Posture/Palpation/Skin Start: 01/14/23 09:03 Freq: Status: Active Protocol: Document 01/18/23 14:37 [facility] (Rec: 01/18/23 16:02 [facility] [id number]) Posture Evaluation Comments Posture Comments slight flexed position at hips still notable PT-OP-M Strength Start: 01/14/23 09:03 Freq: Status: Active Protocol: Document 01/18/23 14:37 [facility] (Rec: 01/18/23 16:02 [facility] [id number]) Hip Strength Hip Manual Muscle Testing Left Flexion (L2) 3 Fair External Rotation 4- Good- Internal Rotation 4+ Good+ Right Flexion (L2) 3 Fair External Rotation 3+ Fair+ Internal Rotation 4- Good- Knee Strength Knee Manual Muscle Testing Left Flexion (S2) 5 Normal Extension (L3) 5 Normal Right Flexion (S2) 5 Normal Extension (L3) 4+ Good+ Ankle/Foot Strength Ankle and Foot Manual Muscle Testing Right Dorsiflexion (L4) 4 Good Plantarflexion (S1) 4 Good Left Dorsiflexion (L4) 4+ Good+ Plantarflexion (S1) 4 Good Comments PF tested seated B PT-OP-Q Treatments Start: 01/14/23 09:03 Freq: Status: Active Protocol: Document 01/25/23 13:54 [facility] (Rec: 01/25/23 18:20 [facility] [id number]) Therapeutic Exercises Supine Exercises BKFO Supine Exercise Name TA Side bilateral Reps/Minutes 8 Comments max cues for breathing; very small range kegal Reps/Minutes 5 Comments cues for performance and for release diaphragmatic breath Side bilateral Reps/Minutes 10 Comments cues tactile at abdomen that sides Standing Exercises hip abd Side bilateral Reps/Minutes 10 Comments at walker hip flexion Side bilateral Reps/Minutes 10 Comments at walker Manual Therapy Treatment Soft Tissue Mobilization scar Body Location R lat Mobilization Type Myofascial Release,Sustained Pressure Intensity/Depth sup to mod Body Position Sidelying Self-Care/Home Management Treatment Education Other Education 10 min: edu re: PT for gentle core stability and strengthening. Encouraged pt to start w/single sets w/ exercise. Edu re: keeping track of BP during the day and start w/adding only a 1/2 block walk as her 2nd walk vs a full block. Encouraged to make sure drinking enough fluids. PT-OP-T Assessment and Plan Start: 01/14/23 09:03 Freq: Status: Active Protocol: Document 01/25/23 13:54 [facility] (Rec: 01/25/23 18:20 [facility] [id number]) Physical Therapy Assessment Goals activity Short Term Goal (STG) Pt will be able to return to pool for 50% of workout without inc foot or back pain. STG Duration 03/07/23 Mass Spec Goal (LTG) Pt will be able to regularly do full pool work out, gentle strength/balance and walking w /o pain greater than 3/10 LTG Duration 04/11/23 gait Impairment 6 min walk w/4WW-565ft w/4WW - stopped after 4 min d/t R foot pain Short Term Goal (STG) Pt will be able to amb at least 800ft w/4WW and amb for full 6 min w/o significant inc of LBP or R foot pain. STG Duration 03/04/23 Mass Spec Goal (LTG) Pt will be able to amb at least 900ft w/SPC in 6 min w/o significant inc of LBP or R foot pain. LTG Duration 04/11/23 balance Impairment 33/56 Senior Care Goal (LTG) Pt will show improved balance by ability to do SLS for at least 3 sec B LTG Duration 04/12/23 One Impairment sit to stands (7.5 w/hands) Short Term Goal (STG) Pt will be able to do at least 9 sit to stands w/use of hands from standard chair to show improved functional strength. STG Duration 03/06/23 Mass Spec Goal (LTG) Pt will be able to do at least 2 sit to stands w/o use of hands from standard chair to show improved functional strength and dec risk for falls. LTG Duration 04/12/23 Assessment Summary Assessment Pt did well with new exercises w/cues for netural spine. A lot of cues for not doing post tilt but TA engagement along w/breathing. She has improved post scar healing w/only 2 small scabs left. Improve mobility of lat scar w/STM. Physical Therapy Plan Frequency and Duration Frequency of Treatment 2x/Week Duration of treatment (weeks) 12 Plan of Care Start Date 01/18/23 Plan of Care End Date 04/12/23 Next Visit Focus/Plan Next Note Type Treatment Note Next Visit Plan supine core progress & gentle standing exercises& scar mobility
--- NOTE | 2023-02-01 12:05 | PT.OTN ---
Addendum entered and electronically signed by Debbie Beyer, PT 02/01/23 17:24: PT direct supervision and direction to PT student. Original Note: Current Diagnoses Pain in right ankle and joints of right foot (02/01/23) Spinal stenosis, lumbar region with neurogenic claudication (02/01/23) Radiculopathy, lumbar region (02/01/23) Difficulty in walking, not elsewhere classified (02/01/23) Unsteadiness on feet (02/01/23) Abnormal posture (02/01/23) Weakness (02/01/23) Arthrodesis status (02/01/23) Physical Therapy Treatment Note PT-OP-A Visit Information Start: 01/14/23 09:03 Freq: Status: Active Protocol: Document 02/01/23 09:53 BS (Rec: 02/01/23 10:43 BS [id number]) Out-Patient Physical Therapy Visit Information Visit Information Visit Type Treatment Note Visit Note 06/15 Visit Start Time 09:50 Visit Stop Time 10:45 Total Visit Minutes 55 Visit Number 4 Number of OUTPATIENT PHYSICAL THERAPIST ASSISTANT Visits 0 PT-OP-B Current Condition Start: 01/14/23 09:03 Freq: Status: Active Protocol: Document 01/18/23 14:37 [facility] (Rec: 01/18/23 16:02 [facility] [id number]) Current Condition History of Current Condition Current Complaints XLIF L3-4 fused to L4-S1 prior fusion History of Current Condition Pt had XLIF done (replaced disc w/bone and put a cage in per pt and came in from R ant) at L3-4 and that was connected to her prior L4-s1 fusion. Pt reports her SI and leg pain or R lat hip is improved since surgery. She is on no pain meds and has tylenol for pain right now. She still has problems on med foot and lower leg on R. Pt reports R foot is getting worse and is considering surgery and possibly another injection. She is using a 4WW d/t her R foot mostly as it is shooting pain from heel to lat foot. reports, pt teeters around the house and occasionally counter surfs in the kitchen. She feels a lot stronger already. pt concered about going back to a cane d/t R foot and is scared she will fall. Pt reprots she can get around to the end of the block and back w/o back pain but the foot limits her. She gets tired and a little sore sup to lat iliac crest. Treatment Goals Patient/Caregiver Goals Be able to get out and get exercise; be able to get back to the pool for exercise, be able to drive again, get strength back, improve gait PT-OP-C Subjective Start: 01/14/23 09:03 Freq: Status: Active Protocol: Document 02/01/23 09:53 BS (Rec: 02/01/23 10:43 BS [id number]) OP-PT Subjective Patient Comments Patient Comments Pts neuropathy has been painful this last week from ankles to toes B, lasts about a minute and is worse at night . Tends to be insidious and the intensity is worse than its been before. Woke up this morning and has gnawing pain on R lateral incision site. PT-OP-E Functional Tests Start: 01/18/23 16:02 Freq: Status: Active Protocol: Document 01/18/23 14:37 [facility] (Rec: 01/18/23 16:33 [facility] [id number]) Functional Tests 6 Minute Walk Test Distance 565ft Device Used 4ww Comments stopped at 4 min d/t signfiicant R foot pain 30 Second Sit to Stand Test Score 7.5 w/UEs Comments harris chair PT-OP-F Manual Assessment Start: 01/14/23 09:03 Freq: Status: Active Protocol: Document 01/18/23 14:37 [facility] (Rec: 01/18/23 16:02 [facility] [id number]) Manual Assessments Other Manual Assessments Other Manual Assessments Good healing of R lat scar and post scar-still some scabbing post PT-OP-G Mobility & Gait Start: 01/14/23 09:03 Freq: Status: Active Protocol: Document 01/18/23 14:37 [facility] (Rec: 01/18/23 16:02 [facility] [id number]) OP Gait Assessment Comments Gait Comments Amb w/4WW w/good WB B until starts to fatigue, more dec in stance time RLE and inc pevis R rot w/push off R PT-OP-J Posture/Palpation/Skin Start: 01/14/23 09:03 Freq: Status: Active Protocol: Document 01/18/23 14:37 [facility] (Rec: 01/18/23 16:02 [facility] [id number]) Posture Evaluation Comments Posture Comments slight flexed position at hips still notable PT-OP-M Strength Start: 01/14/23 09:03 Freq: Status: Active Protocol: Document 01/18/23 14:37 [facility] (Rec: 01/18/23 16:02 [facility] [id number]) Hip Strength Hip Manual Muscle Testing Left Flexion (L2) 3 Fair External Rotation 4- Good- Internal Rotation 4+ Good+ Right Flexion (L2) 3 Fair External Rotation 3+ Fair+ Internal Rotation 4- Good- Knee Strength Knee Manual Muscle Testing Left Flexion (S2) 5 Normal Extension (L3) 5 Normal Right Flexion (S2) 5 Normal Extension (L3) 4+ Good+ Ankle/Foot Strength Ankle and Foot Manual Muscle Testing Right Dorsiflexion (L4) 4 Good Plantarflexion (S1) 4 Good Left Dorsiflexion (L4) 4+ Good+ Plantarflexion (S1) 4 Good Comments PF tested seated B PT-OP-Q Treatments Start: 01/14/23 09:03 Freq: Status: Active Protocol: Document 02/01/23 09:53 BS (Rec: 02/01/23 10:43 BS [id number]) Therapeutic Exercises Supine Exercises BKFO Supine Exercise Name TA Side bilateral Reps/Minutes 8 Comments max cues for breathing; very small range Standing Exercises hip abd Side bilateral Reps/Minutes 10 Comments at walker hip flexion Side bilateral Reps/Minutes 10 Comments at walker Manual Therapy Treatment Soft Tissue Mobilization back Body Location R paraspinals & QL Mobilization Type Rolling,Sustained Pressure Intensity/Depth sup to deep Body Position Sidelying scar Body Location R lat & post B Mobilization Type Myofascial Release,Sustained Pressure Intensity/Depth sup to mod Body Position Sidelying PT-OP-R Modalities Start: 01/14/23 09:03 Freq: Status: Active Protocol: Document 02/01/23 09:53 BS (Rec: 02/01/23 10:44 BS [id number]) Hot Pack/Cold Pack Treatment Cold Pack Location LS & SI Patient Position Sidelying Treatment Duration (minutes) 10 PT-OP-T Assessment and Plan Start: 01/14/23 09:03 Freq: Status: Active Protocol: Document 02/01/23 09:53 BS (Rec: 02/01/23 10:43 BS [id number]) Physical Therapy Assessment Goals activity Short Term Goal (STG) Pt will be able to return to pool for 50% of workout without inc foot or back pain. STG Duration 03/07/23 Carpet Sewing Machine Operator Goal (LTG) Pt will be able to regularly do full pool work out, gentle strength/balance and walking w /o pain greater than 3/10 LTG Duration 04/11/23 gait Impairment 6 min walk w/4WW-565ft w/4WW - stopped after 4 min d/t R foot pain Short Term Goal (STG) Pt will be able to amb at least 800ft w/4WW and amb for full 6 min w/o significant inc of LBP or R foot pain. STG Duration 03/04/23 Carpet Sewing Machine Operator Goal (LTG) Pt will be able to amb at least 900ft w/SPC in 6 min w/o significant inc of LBP or R foot pain. LTG Duration 04/11/23 balance Impairment 33/56 Carpet Sewing Machine Operator Goal (LTG) Pt will show improved balance by ability to do SLS for at least 3 sec B LTG Duration 04/12/23 One Impairment sit to stands (7.5 w/hands) Short Term Goal (STG) Pt will be able to do at least 9 sit to stands w/use of hands from standard chair to show improved functional strength. STG Duration 03/06/23 Carpet Sewing Machine Operator Goal (LTG) Pt will be able to do at least 2 sit to stands w/o use of hands from standard chair to show improved functional strength and dec risk for falls. LTG Duration 04/12/23 Assessment Summary Assessment Review of HEP w/ pt, cues during standing marches to drive stance leg into ground for better hip activiation. Pt still requires max cueing for breathing during BKFO, however when cued to count throughout was able to maintain breathing w/o more cueing. Pt had inc achy pain in R side today around lat scar. Scar mobility and muscle tension dec after manual & pt was able to tolerate inc pressure throughout. Physical Therapy Plan Frequency and Duration Frequency of Treatment 2x/Week Duration of treatment (weeks) 12 Plan of Care Start Date 01/18/23 Plan of Care End Date 04/12/23 Therapeutic Interventions Therapeutic Interventions Balance Training,Coordination Training,Gait Training,Home Exercise Program,Joint Mobilizations,Manual Therapy, Neuromuscular Re-education, Orthotic/Prosthetic Management ,Patient/Caregiver Education, Self-Care/Home Management,Soft Tissue Mobilization,Taping, Therapeutic Activities, Therapeutic Exercises Modalities Cold Pack/Ice Massage,Electric Stimulation,Hot Packs, Ultrasound Next Visit Focus/Plan Next Note Type Treatment Note Next Visit Plan supine core progress & gentle standing exercises& scar mobility
--- NOTE | 2023-02-04 13:32 | PT.OTN ---
Addendum entered and electronically signed by Debbie Beyer, PT 02/04/23 15:53: PT direct supervision and direction to PT student. Original Note: Current Diagnoses Pain in right ankle and joints of right foot (02/04/23) Spinal stenosis, lumbar region with neurogenic claudication (02/04/23) Radiculopathy, lumbar region (02/04/23) Difficulty in walking, not elsewhere classified (02/04/23) Unsteadiness on feet (02/04/23) Abnormal posture (02/04/23) Weakness (02/04/23) Arthrodesis status (02/04/23) Physical Therapy Treatment Note PT-OP-A Visit Information Start: 01/14/23 09:03 Freq: Status: Active Protocol: Document 02/04/23 09:05 BS (Rec: 02/04/23 09:58 BS [id number]) Out-Patient Physical Therapy Visit Information Visit Information Visit Type Treatment Note Visit Note 07/15 Visit Start Time 09:06 Visit Stop Time 09:58 Total Visit Minutes 52 Visit Number 5 Number of SWITCHBOARD OPERATOR ASSISTANT Visits 0 PT-OP-B Current Condition Start: 01/14/23 09:03 Freq: Status: Active Protocol: Document 01/18/23 14:37 [facility] (Rec: 01/18/23 16:02 [facility] [id number]) Current Condition History of Current Condition Current Complaints XLIF L3-4 fused to L4-S1 prior fusion History of Current Condition Pt had XLIF done (replaced disc w/bone and put a cage in per pt and came in from R ant) at L3-4 and that was connected to her prior L4-s1 fusion. Pt reports her SI and leg pain or R lat hip is improved since surgery. She is on no pain meds and has tylenol for pain right now. She still has problems on med foot and lower leg on R. Pt reports R foot is getting worse and is considering surgery and possibly another injection. She is using a 4WW d/t her R foot mostly as it is shooting pain from heel to lat foot. reports, pt teeters around the house and occasionally counter surfs in the kitchen. She feels a lot stronger already. pt concered about going back to a cane d/t R foot and is scared she will fall. Pt reprots she can get around to the end of the block and back w/o back pain but the foot limits her. She gets tired and a little sore sup to lat iliac crest. Treatment Goals Patient/Caregiver Goals Be able to get out and get exercise; be able to get back to the pool for exercise, be able to drive again, get strength back, improve gait PT-OP-C Subjective Start: 01/14/23 09:03 Freq: Status: Active Protocol: Document 02/04/23 09:05 BS (Rec: 02/04/23 09:58 BS [id number]) OP-PT Subjective Patient Comments Patient Comments Pt was achy all day after last visit but woke up next day feeling fine. Got the okay to get an injection for her foot so is working on getting that scheduled PT-OP-E Functional Tests Start: 01/18/23 16:02 Freq: Status: Active Protocol: Document 01/18/23 14:37 [facility] (Rec: 01/18/23 16:33 [facility] [id number]) Functional Tests 6 Minute Walk Test Distance 565ft Device Used 4ww Comments stopped at 4 min d/t signfiicant R foot pain 30 Second Sit to Stand Test Score 7.5 w/UEs Comments harris chair PT-OP-F Manual Assessment Start: 01/14/23 09:03 Freq: Status: Active Protocol: Document 01/18/23 14:37 [facility] (Rec: 01/18/23 16:02 [facility] [id number]) Manual Assessments Other Manual Assessments Other Manual Assessments Good healing of R lat scar and post scar-still some scabbing post PT-OP-G Mobility & Gait Start: 01/14/23 09:03 Freq: Status: Active Protocol: Document 01/18/23 14:37 [facility] (Rec: 01/18/23 16:02 [facility] [id number]) OP Gait Assessment Comments Gait Comments Amb w/4WW w/good WB B until starts to fatigue, more dec in stance time RLE and inc pevis R rot w/push off R PT-OP-J Posture/Palpation/Skin Start: 01/14/23 09:03 Freq: Status: Active Protocol: Document 01/18/23 14:37 [facility] (Rec: 01/18/23 16:02 [facility] [id number]) Posture Evaluation Comments Posture Comments slight flexed position at hips still notable PT-OP-M Strength Start: 01/14/23 09:03 Freq: Status: Active Protocol: Document 01/18/23 14:37 [facility] (Rec: 01/18/23 16:02 [facility] [id number]) Hip Strength Hip Manual Muscle Testing Left Flexion (L2) 3 Fair External Rotation 4- Good- Internal Rotation 4+ Good+ Right Flexion (L2) 3 Fair External Rotation 3+ Fair+ Internal Rotation 4- Good- Knee Strength Knee Manual Muscle Testing Left Flexion (S2) 5 Normal Extension (L3) 5 Normal Right Flexion (S2) 5 Normal Extension (L3) 4+ Good+ Ankle/Foot Strength Ankle and Foot Manual Muscle Testing Right Dorsiflexion (L4) 4 Good Plantarflexion (S1) 4 Good Left Dorsiflexion (L4) 4+ Good+ Plantarflexion (S1) 4 Good Comments PF tested seated B PT-OP-Q Treatments Start: 01/14/23 09:03 Freq: Status: Active Protocol: Document 02/04/23 09:05 BS (Rec: 02/04/23 09:58 BS [id number]) Therapeutic Exercises Supine Exercises TA Supine Exercise Name TA holds Reps/Minutes 5x3-5s holds Comments Max cues to breathe during hold diaphragmatic breath Side bilateral Reps/Minutes 10 Sitting Exercises sit to stands Sitting Exercise Name Sit to stands Equipment Used mat height 21 Reps/Minutes 2x10 hip abd Sitting Exercise Name banded seated hip abd Side bilateral Resistance light blue latex band Reps/Minutes x10 Manual Therapy Treatment Soft Tissue Mobilization scar Body Location R lat & post B Mobilization Type Myofascial Release,Sustained Pressure Intensity/Depth sup to mod Body Position Sidelying PT-OP-R Modalities Start: 01/14/23 09:03 Freq: Status: Active Protocol: Document 02/04/23 09:05 BS (Rec: 02/04/23 09:59 BS [id number]) Hot Pack/Cold Pack Treatment Cold Pack Location LS & SI Patient Position Sidelying Treatment Duration (minutes) 10 PT-OP-T Assessment and Plan Start: 01/14/23 09:03 Freq: Status: Active Protocol: Document 02/04/23 09:05 BS (Rec: 02/04/23 09:58 BS [id number]) Physical Therapy Assessment Goals activity Short Term Goal (STG) Pt will be able to return to pool for 50% of workout without inc foot or back pain. STG Duration 03/07/23 Vending Technician Goal (LTG) Pt will be able to regularly do full pool work out, gentle strength/balance and walking w /o pain greater than 3/10 LTG Duration 04/11/23 gait Impairment 6 min walk w/4WW-565ft w/4WW - stopped after 4 min d/t R foot pain Short Term Goal (STG) Pt will be able to amb at least 800ft w/4WW and amb for full 6 min w/o significant inc of LBP or R foot pain. STG Duration 03/04/23 Custodial Goal (LTG) Pt will be able to amb at least 900ft w/SPC in 6 min w/o significant inc of LBP or R foot pain. LTG Duration 04/11/23 balance Impairment Vending Technician Goal (LTG) Pt will show improved balance by ability to do SLS for at least 3 sec B LTG Duration 04/12/23 One Impairment sit to stands (7.5 w/hands) Short Term Goal (STG) Pt will be able to do at least 9 sit to stands w/use of hands from standard chair to show improved functional strength. STG Duration 03/06/23 Vending Technician Goal (LTG) Pt will be able to do at least 2 sit to stands w/o use of hands from standard chair to show improved functional strength and dec risk for falls. LTG Duration 04/12/23 Assessment Summary Assessment Pt progressed well with therex today, completing hip abd with blue latex band in sitting. At end range pt felt little twinge in back so told to go through slightly less range w/o any twinge. Pt then completed sit>stands from 21 height & use of hands. Pt had dec control of sit when fatigued but w/ cues was able to fix. Pt had inc in pain when laying supine, pain dec after diaphragmatic breaths. Pt had difficulty w/ breathing during TA holds, however improved w/reps. Physical Therapy Plan Frequency and Duration Frequency of Treatment 2x/Week Duration of treatment (weeks) 12 Plan of Care Start Date 01/18/23 Plan of Care End Date 04/12/23 Next Visit Focus/Plan Next Note Type Treatment Note Next Visit Plan supine core progress & gentle standing exercises& scar mobility
--- NOTE | 2023-02-08 15:42 | PT.OTN ---
Addendum entered and electronically signed by Debbie Beyer PT 02/08/23 18:05: PT direct supervision and direction to PT student. Original Note: Current Diagnoses Pain in right ankle and joints of right foot (02/08/23) Spinal stenosis, lumbar region with neurogenic claudication (02/08/23) Radiculopathy, lumbar region (02/08/23) Difficulty in walking, not elsewhere classified (02/08/23) Unsteadiness on feet (02/08/23) Abnormal posture (02/08/23) Weakness (02/08/23) Arthrodesis status (02/08/23) Physical Therapy Treatment Note PT-OP-A Visit Information Start: 01/14/23 09:03 Freq: Status: Active Protocol: Document 02/08/23 08:54 BS (Rec: 02/08/23 10:26 BS [id number]) Out-Patient Physical Therapy Visit Information Visit Information Visit Type Treatment Note Visit Note 08/15 Visit Start Time 09:04 Visit Stop Time 09:48 Total Visit Minutes 44 Visit Number 6 Number of WILDLIFE MANAGER Visits 0 PT-OP-B Current Condition Start: 01/14/23 09:03 Freq: Status: Active Protocol: Document 01/18/23 14:37 [facility] (Rec: 01/18/23 16:02 [facility] [id number]) Current Condition History of Current Condition Current Complaints XLIF L3-4 fused to L4-S1 prior fusion History of Current Condition Pt had XLIF done (replaced disc w/bone and put a cage in per pt and came in from R ant) at L3-4 and that was connected to her prior L4-s1 fusion. Pt reports her SI and leg pain or R lat hip is improved since surgery. She is on no pain meds and has tylenol for pain right now. She still has problems on med foot and lower leg on R. Pt reports R foot is getting worse and is considering surgery and possibly another injection. She is using a 4WW d/t her R foot mostly as it is shooting pain from heel to lat foot. reports, pt teeters around the house and occasionally counter surfs in the kitchen. She feels a lot stronger already. pt concered about going back to a cane d/t R foot and is scared she will fall. Pt reprots she can get around to the end of the block and back w/o back pain but the foot limits her. She gets tired and a little sore sup to lat iliac crest. Treatment Goals Patient/Caregiver Goals Be able to get out and get exercise; be able to get back to the pool for exercise, be able to drive again, get strength back, improve gait PT-OP-C Subjective Start: 01/14/23 09:03 Freq: Status: Active Protocol: Document 02/08/23 08:54 BS (Rec: 02/08/23 10:26 BS [id number]) OP-PT Subjective Patient Comments Patient Comments Pt back has been feeling well, main problem has been her feet. [place] a walk yesterday all the way around block and could have kept goign with back, it was her feet that couldn't take any more. PT-OP-E Functional Tests Start: 01/18/23 16:02 Freq: Status: Active Protocol: Document 01/18/23 14:37 [facility] (Rec: 01/18/23 16:33 [facility] [id number]) Functional Tests 6 Minute Walk Test Distance 565ft Device Used 4ww Comments stopped at 4 min d/t signfiicant R foot pain 30 Second Sit to Stand Test Score 7.5 w/UEs Comments harris chair PT-OP-F Manual Assessment Start: 01/14/23 09:03 Freq: Status: Active Protocol: Document 01/18/23 14:37 [facility] (Rec: 01/18/23 16:02 [facility] [id number]) Manual Assessments Other Manual Assessments Other Manual Assessments Good healing of R lat scar and post scar-still some scabbing post PT-OP-G Mobility & Gait Start: 01/14/23 09:03 Freq: Status: Active Protocol: Document 01/18/23 14:37 [facility] (Rec: 01/18/23 16:02 [facility] [id number]) OP Gait Assessment Comments Gait Comments Amb w/4WW w/good WB B until starts to fatigue, more dec in stance time RLE and inc pevis R rot w/push off R PT-OP-J Posture/Palpation/Skin Start: 01/14/23 09:03 Freq: Status: Active Protocol: Document 01/18/23 14:37 [facility] (Rec: 01/18/23 16:02 [facility] [id number]) Posture Evaluation Comments Posture Comments slight flexed position at hips still notable PT-OP-M Strength Start: 01/14/23 09:03 Freq: Status: Active Protocol: Document 01/18/23 14:37 [facility] (Rec: 01/18/23 16:02 [facility] [id number]) Hip Strength Hip Manual Muscle Testing Left Flexion (L2) 3 Fair External Rotation 4- Good- Internal Rotation 4+ Good+ Right Flexion (L2) 3 Fair External Rotation 3+ Fair+ Internal Rotation 4- Good- Knee Strength Knee Manual Muscle Testing Left Flexion (S2) 5 Normal Extension (L3) 5 Normal Right Flexion (S2) 5 Normal Extension (L3) 4+ Good+ Ankle/Foot Strength Ankle and Foot Manual Muscle Testing Right Dorsiflexion (L4) 4 Good Plantarflexion (S1) 4 Good Left Dorsiflexion (L4) 4+ Good+ Plantarflexion (S1) 4 Good Comments PF tested seated B PT-OP-Q Treatments Start: 01/14/23 09:03 Freq: Status: Active Protocol: Document 02/08/23 08:54 BS (Rec: 02/08/23 10:26 BS [id number]) Therapeutic Exercises Supine Exercises TA Supine Exercise Name TA holds Reps/Minutes 5x5s holds Comments Min cues to breathe during hold Sitting Exercises Core Sitting Exercise Name Seated paloff hold Side bilateral Comments w/ PT moving band around in mulitple directions sit to stands Sitting Exercise Name Sit to stands Equipment Used mat height 21 Reps/Minutes x12 Comments no UE help Manual Therapy Treatment Soft Tissue Mobilization scar Body Location R lat & post B Mobilization Type Myofascial Release,Sustained Pressure Intensity/Depth sup to mod Body Position Sidelying Comments Self education to during STM work in order for him to properly work on scar at home Self-Care/Home Management Treatment Education Other Education 9 min: Education to pts about STM work to pts scars and how to feel for resitriction in superficial tissues and work on tissue mobility.Education to patient about safe set up for HEP sit> stands at home. PT-OP-R Modalities Start: 01/14/23 09:03 Freq: Status: Active Protocol: Document 02/04/23 09:05 BS (Rec: 02/04/23 09:59 BS [id number]) Hot Pack/Cold Pack Treatment Cold Pack Location LS & SI Patient Position Sidelying Treatment Duration (minutes) 10 PT-OP-T Assessment and Plan Start: 01/14/23 09:03 Freq: Status: Active Protocol: Document 02/08/23 08:54 BS (Rec: 02/08/23 10:26 BS [id number]) Physical Therapy Assessment Goals activity Short Term Goal (STG) Pt will be able to return to pool for 50% of workout without inc foot or back pain. STG Duration 03/07/23 Golf Cart Repairer Goal (LTG) Pt will be able to regularly do full pool work out, gentle strength/balance and walking w /o pain greater than 3/10 LTG Duration 04/11/23 gait Impairment 6 min walk w/4WW-565ft w/4WW - stopped after 4 min d/t R foot pain Short Term Goal (STG) Pt will be able to amb at least 800ft w/4WW and amb for full 6 min w/o significant inc of LBP or R foot pain. STG Duration 03/04/23 Golf Cart Repairer Goal (LTG) Pt will be able to amb at least 900ft w/SPC in 6 min w/o significant inc of LBP or R foot pain. LTG Duration 04/11/23 balance Impairment 33/56 Golf Cart Repairer Goal (LTG) Pt will show improved balance by ability to do SLS for at least 3 sec B LTG Duration 04/12/23 One Impairment sit to stands (7.5 w/hands) Short Term Goal (STG) Pt will be able to do at least 9 sit to stands w/use of hands from standard chair to show improved functional strength. STG Duration 03/06/23 Golf Cart Repairer Goal (LTG) Pt will be able to do at least 2 sit to stands w/o use of hands from standard chair to show improved functional strength and dec risk for falls. LTG Duration 04/12/23 Assessment Summary Assessment Pt present at start of session and educated on STM to pt in order to complete at home. Pt scar mobility improved post manual. Pt had better control of TA today and was able to control breathing throughout more. Pt ended with sit>stands at 21in w/ no UE use and was able to safetly complete 12 reps. Physical Therapy Plan Frequency and Duration Frequency of Treatment 2x/Week Duration of treatment (weeks) 12 Plan of Care Start Date 01/18/23 Plan of Care End Date 04/12/23 Next Visit Focus/Plan Next Note Type Treatment Note Next Visit Plan supine core progress & gentle standing exercises& scar mobility
--- NOTE | 2023-02-11 10:34 | PT.OTN ---
Current Diagnoses Pain in right ankle and joints of right foot (02/11/23) Spinal stenosis, lumbar region with neurogenic claudication (02/11/23) Radiculopathy, lumbar region (02/11/23) Difficulty in walking, not elsewhere classified (02/11/23) Unsteadiness on feet (02/11/23) Abnormal posture (02/11/23) Weakness (02/11/23) Arthrodesis status (02/11/23) Physical Therapy Treatment Note PT-OP-A Visit Information Start: 01/14/23 09:03 Freq: Status: Active Protocol: Document 02/11/23 09:47 [facility] (Rec: 02/11/23 10:34 [facility] [id number]) Out-Patient Physical Therapy Visit Information Visit Information Visit Type Treatment Note Visit Note 09/14 Visit Start Time 09:47 Total Visit Minutes 42 Visit Number 7 Number of MANUFACTURING SOFTWARE ENGINEER Visits 0 Precautions Precautions 7 weeks post-op PT-OP-B Current Condition Start: 01/14/23 09:03 Freq: Status: Active Protocol: Document 01/18/23 14:37 [facility] (Rec: 01/18/23 16:02 [facility] [id number]) Current Condition History of Current Condition Current Complaints XLIF L3-4 fused to L4-S1 prior fusion History of Current Condition Pt had XLIF done (replaced disc w/bone and put a cage in per pt and came in from R ant) at L3-4 and that was connected to her prior L4-s1 fusion. Pt reports her SI and leg pain or R lat hip is improved since surgery. She is on no pain meds and has tylenol for pain right now. She still has problems on med foot and lower leg on R. Pt reports R foot is getting worse and is considering surgery and possibly another injection. She is using a 4WW d/t her R foot mostly as it is shooting pain from heel to lat foot. reports, pt teeters around the house and occasionally counter surfs in the kitchen. She feels a lot stronger already. pt concered about going back to a cane d/t R foot and is scared she will fall. Pt reprots she can get around to the end of the block and back w/o back pain but the foot limits her. She gets tired and a little sore sup to lat iliac crest. Treatment Goals Patient/Caregiver Goals Be able to get out and get exercise; be able to get back to the pool for exercise, be able to drive again, get strength back, improve gait PT-OP-C Subjective Start: 01/14/23 09:03 Freq: Status: Active Protocol: Document 02/11/23 09:47 [facility] (Rec: 02/11/23 10:34 [facility] [id number]) OP-PT Subjective Patient Comments Patient Comments Back still feeling good, feet are what is the problem. Gets yelled at by her when bends or leaves walker behind. Only achy in right lateral trunk. PT-OP-E Functional Tests Start: 01/18/23 16:02 Freq: Status: Active Protocol: Document 01/18/23 14:37 [facility] (Rec: 01/18/23 16:33 [facility] [id number]) Functional Tests 6 Minute Walk Test Distance 565ft Device Used 4ww Comments stopped at 4 min d/t signfiicant R foot pain 30 Second Sit to Stand Test Score 7.5 w/UEs Comments harris chair PT-OP-F Manual Assessment Start: 01/14/23 09:03 Freq: Status: Active Protocol: Document 01/18/23 14:37 [facility] (Rec: 01/18/23 16:02 [facility] [id number]) Manual Assessments Other Manual Assessments Other Manual Assessments Good healing of R lat scar and post scar-still some scabbing post PT-OP-G Mobility & Gait Start: 01/14/23 09:03 Freq: Status: Active Protocol: Document 01/18/23 14:37 [facility] (Rec: 01/18/23 16:02 [facility] [id number]) OP Gait Assessment Comments Gait Comments Amb w/4WW w/good WB B until starts to fatigue, more dec in stance time RLE and inc pevis R rot w/push off R PT-OP-J Posture/Palpation/Skin Start: 01/14/23 09:03 Freq: Status: Active Protocol: Document 01/18/23 14:37 [facility] (Rec: 01/18/23 16:02 [facility] [id number]) Posture Evaluation Comments Posture Comments slight flexed position at hips still notable PT-OP-M Strength Start: 01/14/23 09:03 Freq: Status: Active Protocol: Document 01/18/23 14:37 [facility] (Rec: 01/18/23 16:02 [facility] [id number]) Hip Strength Hip Manual Muscle Testing Left Flexion (L2) 3 Fair External Rotation 4- Good- Internal Rotation 4+ Good+ Right Flexion (L2) 3 Fair External Rotation 3+ Fair+ Internal Rotation 4- Good- Knee Strength Knee Manual Muscle Testing Left Flexion (S2) 5 Normal Extension (L3) 5 Normal Right Flexion (S2) 5 Normal Extension (L3) 4+ Good+ Ankle/Foot Strength Ankle and Foot Manual Muscle Testing Right Dorsiflexion (L4) 4 Good Plantarflexion (S1) 4 Good Left Dorsiflexion (L4) 4+ Good+ Plantarflexion (S1) 4 Good Comments PF tested seated B PT-OP-Q Treatments Start: 01/14/23 09:03 Freq: Status: Active Protocol: Document 02/11/23 09:47 [facility] (Rec: 02/11/23 10:34 [facility] [id number]) Therapeutic Exercises Supine Exercises ball squeeze Reps/Minutes 10x Comments cues for core activation ball push down Supine Exercise Name straight, diagonal Reps/Minutes 10x5 Comments cues for core activation, gentle build of pressure TA Supine Exercise Name TA holds Reps/Minutes 5x5s holds Comments Min cues to breathe during hold BKFO Supine Exercise Name TA Side bilateral Reps/Minutes 8 Comments max cues for breathing; very small range Sitting Exercises sidestepping Reps/Minutes 5 ft x 4 Comments postural cues Core Sitting Exercise Name Seated paloff hold Side bilateral Comments w/ PT moving band around in mulitple directions sit to stands Sitting Exercise Name Sit to stands Equipment Used mat height 21 Reps/Minutes x12 Comments no UE help Manual Therapy Treatment Soft Tissue Mobilization scar Body Location R lat & post B Mobilization Type Myofascial Release,Sustained Pressure Intensity/Depth sup to mod Body Position Sidelying Comments Self education to during STM work in order for him to properly work on scar at home Self-Care/Home Management Treatment Education Patient Education Body Mechanics,Home Exercise Program,Posture PT-OP-R Modalities Start: 01/14/23 09:03 Freq: Status: Active Protocol: Document 02/04/23 09:05 BS (Rec: 02/04/23 09:59 BS [id number]) Hot Pack/Cold Pack Treatment Cold Pack Location LS & SI Patient Position Sidelying Treatment Duration (minutes) 10 PT-OP-T Assessment and Plan Start: 01/14/23 09:03 Freq: Status: Active Protocol: Document 02/11/23 09:47 [facility] (Rec: 02/11/23 10:34 [facility] [id number]) Physical Therapy Assessment Goals activity Short Term Goal (STG) Pt will be able to return to pool for 50% of workout without inc foot or back pain. STG Duration 03/07/23 Medical Registrar Goal (LTG) Pt will be able to regularly do full pool work out, gentle strength/balance and walking w /o pain greater than 3/10 LTG Duration 04/11/23 gait Impairment 6 min walk w/4WW-565ft w/4WW - stopped after 4 min d/t R foot pain Short Term Goal (STG) Pt will be able to amb at least 800ft w/4WW and amb for full 6 min w/o significant inc of LBP or R foot pain. STG Duration 03/04/23 Medical Registrar Goal (LTG) Pt will be able to amb at least 900ft w/SPC in 6 min w/o significant inc of LBP or R foot pain. LTG Duration 04/11/23 balance Impairment 33/56 Usp Goal (LTG) Pt will show improved balance by ability to do SLS for at least 3 sec B LTG Duration 04/12/23 One Impairment sit to stands (7.5 w/hands) Short Term Goal (STG) Pt will be able to do at least 9 sit to stands w/use of hands from standard chair to show improved functional strength. STG Duration 03/06/23 Usp Goal (LTG) Pt will be able to do at least 2 sit to stands w/o use of hands from standard chair to show improved functional strength and dec risk for falls. LTG Duration 04/12/23 Assessment Summary Assessment Patient improving activation of TA with cues for slow build of tightening, breathing throughout. Decreased soft tissue tightnes after manual treatment. Easily completes sit to stand 21 inches without UE, more challenging dec height min 19 in. Physical Therapy Plan Frequency and Duration Frequency of Treatment 2x/Week Duration of treatment (weeks) 12 Plan of Care Start Date 01/18/23 Plan of Care End Date 04/12/23 Next Visit Focus/Plan Next Note Type Treatment Note Next Visit Plan supine core progress & gentle standing exercises& scar mobility
--- NOTE | 2023-02-17 16:49 | PT.OTN ---
Current Diagnoses Pain in right ankle and joints of right foot (02/17/23) Spinal stenosis, lumbar region with neurogenic claudication (02/17/23) Radiculopathy, lumbar region (02/17/23) Difficulty in walking, not elsewhere classified (02/17/23) Unsteadiness on feet (02/17/23) Abnormal posture (02/17/23) Weakness (02/17/23) Arthrodesis status (02/17/23) Physical Therapy Treatment Note PT-OP-A Visit Information Start: 01/14/23 09:03 Freq: Status: Active Protocol: Document 02/17/23 11:17 [facility] (Rec: 02/17/23 12:09 [facility] [id number]) Out-Patient Physical Therapy Visit Information Visit Information Visit Type Treatment Note Visit Note 10/15 Visit Start Time 11:18 Visit Stop Time 12:10 Total Visit Minutes 52 Visit Number 8 Number of BODY PIERCER Visits 0 Precautions Precautions 8 weeks post-op PT-OP-B Current Condition Start: 01/14/23 09:03 Freq: Status: Active Protocol: Document 02/17/23 11:17 [facility] (Rec: 02/17/23 12:09 [facility] [id number]) Current Condition History of Current Condition Current Complaints XLIF L3-4 fused to L4-S1 prior fusion History of Current Condition Pt had XLIF done (replaced disc w/bone and put a cage in per pt and came in from R ant) at L3-4 and that was connected to her prior L4-s1 fusion. Pt reports her SI and leg pain or R lat hip is improved since surgery. She is on no pain meds and has tylenol for pain right now. She still has problems on med foot and lower leg on R. Pt reports R foot is getting worse and is considering surgery and possibly another injection. She is using a 4WW d/t her R foot mostly as it is shooting pain from heel to lat foot. reports, pt teeters around the house and occasionally counter surfs in the kitchen. She feels a lot stronger already. pt concered about going back to a cane d/t R foot and is scared she will fall. Pt reprots she can get around to the end of the block and back w/o back pain but the foot limits her. She gets tired and a little sore sup to lat iliac crest. PT-OP-C Subjective Start: 01/14/23 09:03 Freq: Status: Active Protocol: Document 02/17/23 11:17 [facility] (Rec: 02/17/23 12:09 [facility] [id number]) OP-PT Subjective Patient Comments Patient Comments Was supposed to go to [place] yesterday but woke up but right inner thigh numbness into her foot. Cancelled her [place] appointment, iced and did core exercises and iced. Then walked 1 block to concert and was fine, numbness subsided. This am same symptoms though less intense. Last night scar was aching, only did abdominal exercises. PT-OP-E Functional Tests Start: 01/18/23 16:02 Freq: Status: Active Protocol: Document 01/18/23 14:37 [facility] (Rec: 01/18/23 16:33 [facility] [id number]) Functional Tests 6 Minute Walk Test Distance 565ft Device Used 4ww Comments stopped at 4 min d/t signfiicant R foot pain 30 Second Sit to Stand Test Score 7.5 w/UEs Comments harris chair PT-OP-F Manual Assessment Start: 01/14/23 09:03 Freq: Status: Active Protocol: Document 01/18/23 14:37 [facility] (Rec: 01/18/23 16:02 [facility] [id number]) Manual Assessments Other Manual Assessments Other Manual Assessments Good healing of R lat scar and post scar-still some scabbing post PT-OP-G Mobility & Gait Start: 01/14/23 09:03 Freq: Status: Active Protocol: Document 01/18/23 14:37 [facility] (Rec: 01/18/23 16:02 [facility] [id number]) OP Gait Assessment Comments Gait Comments Amb w/4WW w/good WB B until starts to fatigue, more dec in stance time RLE and inc pevis R rot w/push off R PT-OP-J Posture/Palpation/Skin Start: 01/14/23 09:03 Freq: Status: Active Protocol: Document 01/18/23 14:37 [facility] (Rec: 01/18/23 16:02 [facility] [id number]) Posture Evaluation Comments Posture Comments slight flexed position at hips still notable PT-OP-M Strength Start: 01/14/23 09:03 Freq: Status: Active Protocol: Document 01/18/23 14:37 [facility] (Rec: 01/18/23 16:02 [facility] [id number]) Hip Strength Hip Manual Muscle Testing Left Flexion (L2) 3 Fair External Rotation 4- Good- Internal Rotation 4+ Good+ Right Flexion (L2) 3 Fair External Rotation 3+ Fair+ Internal Rotation 4- Good- Knee Strength Knee Manual Muscle Testing Left Flexion (S2) 5 Normal Extension (L3) 5 Normal Right Flexion (S2) 5 Normal Extension (L3) 4+ Good+ Ankle/Foot Strength Ankle and Foot Manual Muscle Testing Right Dorsiflexion (L4) 4 Good Plantarflexion (S1) 4 Good Left Dorsiflexion (L4) 4+ Good+ Plantarflexion (S1) 4 Good Comments PF tested seated B PT-OP-Q Treatments Start: 01/14/23 09:03 Freq: Status: Active Protocol: Document 02/17/23 11:17 [facility] (Rec: 02/17/23 12:09 [facility] [id number]) Therapeutic Exercises Supine Exercises supine clam Supine Exercise Name gloria and unil Resistance L1 TB Reps/Minutes 5x ea ball push down Supine Exercise Name straight, diagonal (unil) Equipment Used 2 pillows on thighs (ball at home too large) Reps/Minutes 10x5 Comments cues for core activation, gentle build of pressure TA Supine Exercise Name TA holds Reps/Minutes 5x5s holds Comments Min cues to breathe during hold BKFO Supine Exercise Name TA Side bilateral Reps/Minutes 8 Comments max cues for breathing; very small range Sitting Exercises Core Sitting Exercise Name Seated paloff hold Side bilateral Comments w/ PT moving band around in mulitple directions Manual Therapy Treatment Soft Tissue Mobilization scar Body Location R lat & post B, scars Mobilization Type Myofascial Release,Strumming, Sustained Pressure Intensity/Depth sup to mod Body Position Sidelying Self-Care/Home Management Treatment Education Patient Education Body Mechanics,Home Exercise Program,Posture PT-OP-R Modalities Start: 01/14/23 09:03 Freq: Status: Active Protocol: Document 02/17/23 11:17 [facility] (Rec: 02/17/23 16:49 [facility] [id number]) Hot Pack/Cold Pack Treatment Cold Pack Location LS & SI Patient Position Sidelying Treatment Duration (minutes) 10 PT-OP-T Assessment and Plan Start: 01/14/23 09:03 Freq: Status: Active Protocol: Document 02/17/23 11:17 [facility] (Rec: 02/17/23 12:09 [facility] [id number]) Physical Therapy Assessment Goals activity Short Term Goal (STG) Pt will be able to return to pool for 50% of workout without inc foot or back pain. STG Duration 03/07/23 Sausage Canner Goal (LTG) Pt will be able to regularly do full pool work out, gentle strength/balance and walking w /o pain greater than 3/10 LTG Duration 04/11/23 gait Impairment 6 min walk w/4WW-565ft w/4WW - stopped after 4 min d/t R foot pain Short Term Goal (STG) Pt will be able to amb at least 800ft w/4WW and amb for full 6 min w/o significant inc of LBP or R foot pain. STG Duration 03/04/23 Senior Living Goal (LTG) Pt will be able to amb at least 900ft w/SPC in 6 min w/o significant inc of LBP or R foot pain. LTG Duration 04/11/23 balance Impairment 33/56 Sausage Canner Goal (LTG) Pt will show improved balance by ability to do SLS for at least 3 sec B LTG Duration 04/12/23 One Impairment sit to stands (7.5 w/hands) Short Term Goal (STG) Pt will be able to do at least 9 sit to stands w/use of hands from standard chair to show improved functional strength. STG Duration 03/06/23 Sausage Canner Goal (LTG) Pt will be able to do at least 2 sit to stands w/o use of hands from standard chair to show improved functional strength and dec risk for falls. LTG Duration 04/12/23 Assessment Summary Assessment Discussed possible causes of numbness right LE as increased fluid into discs at night, or sleep position with patient education for correct positioning in bed for back support, consider use of smaller towel or washcloth under side when sidelying or under l/s when supine. Increased time manual work today primarily on scars due to inc soreness and pulling in right l/s between incisions; dec pain s/p manual. Physical Therapy Plan Frequency and Duration Frequency of Treatment 2x/Week Duration of treatment (weeks) 12 Plan of Care Start Date 01/18/23 Plan of Care End Date 04/12/23 Next Visit Focus/Plan Next Note Type Treatment Note Next Visit Plan Continue PT per POC with supine core progression and gentle standing exercises, scar mobilization.
--- NOTE | 2023-02-22 08:06 | PT-OP ANOTE ---
In ICU due to anaphylactic reaction to new RA medication
--- NOTE | 2023-03-04 09:52 | PT.OTRE ---
Current Diagnoses Pain in right ankle and joints of right foot (03/04/23) Spinal stenosis, lumbar region with neurogenic claudication (03/04/23) Radiculopathy, lumbar region (03/04/23) Difficulty in walking, not elsewhere classified (03/04/23) Unsteadiness on feet (03/04/23) Abnormal posture (03/04/23) Weakness (03/04/23) Arthrodesis status (03/04/23) Past Medical History (Last Reviewed 11/13/22 @ 13:04 by Micky Rodriguez MD) Asthma (~1990) Asthmatic bronchitis Balance problem Benign essential HTN Carpal tunnel syndrome (~2010) Cervical spine disease (~1979) Chronic back pain Chronic bilateral low back pain with bilateral sciatica Chronic cough Chronic pain syndrome Depression (~1986) DVT (deep venous thrombosis) (~2000) Fractures GERD (gastroesophageal reflux disease) (~1997) Knee pain Low back pain Lumbar compression fracture Lumbar radiculopathy Lumbar spinal stenosis Lumbar spine pain (~1979) Lumbosacral spondylosis Lymphocytic colitis (~2019) Obesity (BMI 30.0-34.9) Osteoarthritis (~1979) Peripheral neuropathy Pulmonary embolism (~2000) Right hip pain Sacroiliac joint dysfunction Scoliosis (~1949) Seronegative rheumatoid arthritis (~2011) Shoulder pain Spondylolisthesis Status post fall Tinnitus Surgical History (Last Reviewed 11/13/22 @ 13:04 by Micky Rodriguez MD) Anesthesia H/O eye surgery (02/05/1958) H/O total hysterectomy (05/06/00) History of arthroscopic knee surgery (~05/07/79) History of carpal tunnel surgery (~06/06/13) History of cataract removal with insertion of prosthetic lens (~04/08/21) History of cholecystectomy (02/05/98) History of foot surgery History of knee surgery (05/05/10) History of left knee surgery (~05/06/77) History of left shoulder replacement (02/16/19) History of plastic surgery (~07/30/04) 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) History of uterine fibroid (~08/07/91) Hx of spinal fusion (10/09/18) Hx of tonsillectomy (07/27/1967) Patellar fracture (~02/11/10) S/P foot surgery, left (~02/16/18) S/P removal of ovarian cyst (~09/05/77) Status post left rotator cuff repair (~04/01/08) Status post lumbar spinal fusion Status post right rotator cuff repair (~05/05/07) Temporomandibular joint disorder (~03/08/77) Visit Care Team Role Provider Type Nai Arita DO Family Provider Physician Primary Care Provider Specialty: Family Practice Address: [address] [place] [address], [address], [address] Email: [email or web address] Kait Weinstein PA-C Attending Provider Non-Staff Referring Provider Specialty: Medical Address: [address] [place] [address], [address], [place], [address] Email: Physical Therapy Re-Evaluation PT-OP-A Visit Information Start: 01/14/23 09:03 Freq: Status: Active Protocol: Document 03/04/23 09:04 [facility] (Rec: 03/04/23 09:50 [facility] [id number]) Out-Patient Physical Therapy Visit Information Visit Information Visit Type Re-Evaluation Visit Note 03/17 Visit Start Time 09:02 Visit Stop Time 09:55 Total Visit Minutes 53 Visit Number 9 Number of OPERATIONS/DISPATCH Visits 0 PT-OP-B Current Condition Start: 01/14/23 09:03 Freq: Status: Active Protocol: Document 03/04/23 09:04 [facility] (Rec: 03/04/23 09:50 [facility] [id number]) Current Condition History of Current Condition Current Complaints XLIF L3-4 fused to L4-S1 prior fusion History of Current Condition 03/04-pt was in ICU for allergic reaction and only recently had improvement on 02/27. She has been on prednisone since and the half life is until tomorrow of the drug. She had breathing issues and welts on her body. She is still having a little trouble breathing w/ asthma. Back has been overall okay. She had one night she couldn't stop the R SI pain even w/percocet. She still has some surface numbness on the inside of her leg. IE:Pt had XLIF done (replaced disc w/bone and put a cage in per pt and came in from R ant) at L3-4 and that was connected to her prior L4-s1 fusion. Pt reports her SI and leg pain or R lat hip is improved since surgery. She is on no pain meds and has tylenol for pain right now. She still has problems on med foot and lower leg on R. Pt reports R foot is getting worse and is considering surgery and possibly another injection. She is using a 4WW d/t her R foot mostly as it is shooting pain from heel to lat foot. reports, pt teeters around the house and occasionally counter surfs in the kitchen. She feels a lot stronger already. pt concered about going back to a cane d/t R foot and is scared she will fall. Pt reprots she can get around to the end of the block and back w/o back pain but the foot limits her. She gets tired and a little sore sup to lat iliac crest. PT-OP-C Subjective Start: 01/14/23 09:03 Freq: Status: Active Protocol: Document 02/17/23 11:17 [facility] (Rec: 02/17/23 12:09 [facility] [id number]) OP-PT Subjective Patient Comments Patient Comments Was supposed to go to [place] yesterday but woke up but right inner thigh numbness into her foot. Cancelled her [place] appointment, iced and did core exercises and iced. Then walked 1 block to concert and was fine, numbness subsided. This am same symptoms though less intense. Last night scar was aching, only did abdominal exercises. PT-OP-E Functional Tests Start: 01/18/23 16:02 Freq: Status: Active Protocol: Document 03/04/23 09:04 [facility] (Rec: 03/04/23 09:50 [facility] [id number]) Functional Tests 30 Second Sit to Stand Test Score 9 w/UEs Comments harris chair Five Times Sit to Stand Test Score 15 sec w/UEs Comments harris chair PT-OP-F Manual Assessment Start: 01/14/23 09:03 Freq: Status: Active Protocol: Document 01/18/23 14:37 [facility] (Rec: 01/18/23 16:02 [facility] [id number]) Manual Assessments Other Manual Assessments Other Manual Assessments Good healing of R lat scar and post scar-still some scabbing post PT-OP-G Mobility & Gait Start: 01/14/23 09:03 Freq: Status: Active Protocol: Document 03/04/23 09:04 [facility] (Rec: 03/04/23 09:50 [facility] [id number]) OP Gait Assessment Comments Gait Comments w/FWW w/slight fwd lean PT-OP-J Posture/Palpation/Skin Start: 01/14/23 09:03 Freq: Status: Active Protocol: Document 01/18/23 14:37 [facility] (Rec: 01/18/23 16:02 [facility] [id number]) Posture Evaluation Comments Posture Comments slight flexed position at hips still notable PT-OP-M Strength Start: 01/14/23 09:03 Freq: Status: Active Protocol: Document 03/04/23 09:04 [facility] (Rec: 03/04/23 09:50 [facility] [id number]) Hip Strength Hip Manual Muscle Testing Left Flexion (L2) 4- Good- Abduction 3 Fair External Rotation 4- Good- Internal Rotation 5 Normal Right Flexion (L2) 4- Good- Abduction 2+ Poor+ External Rotation 4- Good- Internal Rotation 4 Good Knee Strength Knee Manual Muscle Testing Left Flexion (S2) 5 Normal Extension (L3) 5 Normal Right Flexion (S2) 5 Normal Extension (L3) 4+ Good+ Ankle/Foot Strength Ankle and Foot Manual Muscle Testing Right Dorsiflexion (L4) 4 Good Plantarflexion (S1) 4+ Good+ Left Dorsiflexion (L4) 4+ Good+ Plantarflexion (S1) 4 Good Comments PF tested seated B PT-OP-Q Treatments Start: 01/14/23 09:03 Freq: Status: Active Protocol: Document 03/04/23 09:04 [facility] (Rec: 03/04/23 09:50 [facility] [id number]) Therapeutic Exercises Supine Exercises TA Supine Exercise Name TA 1. Marches 2. heel slides Side bilateral Reps/Minutes 15 ea Sidelying Exercises abd Side bilateral Equipment Used lvl 1 Reps/Minutes 10 clamshell Side bilateral Equipment Used Lvl 1 Reps/Minutes 10 Manual Therapy Treatment Soft Tissue Mobilization glutes Body Location piriformis R Mobilization Type Sustained Pressure Intensity/Depth Moderate Body Position Sidelying Comments w/IR PT-OP-R Modalities Start: 01/14/23 09:03 Freq: Status: Active Protocol: Document 03/04/23 09:04 [facility] (Rec: 03/04/23 09:50 [facility] [id number]) Hot Pack/Cold Pack Treatment Cold Pack Location LS & SI Patient Position Sidelying Treatment Duration (minutes) 10 PT-OP-T Assessment and Plan Start: 01/14/23 09:03 Freq: Status: Active Protocol: Document 03/04/23 09:04 [facility] (Rec: 03/04/23 09:50 [facility] [id number]) Physical Therapy Assessment Goals activity Short Term Goal (STG) Pt will be able to return to pool for 50% of workout without inc foot or back pain. 03/04 -has not returned STG Duration 04/06 Alf Goal (LTG) Pt will be able to regularly do full pool work out, gentle strength/balance and walking w /o pain greater than 3/10 03/04-was walking around the block prior to allergic reaction and had one walk to library and back. Has walked aroud the block once. She walked 3 blocks once also LTG Duration 05/20 gait Impairment 6 min walk w/4WW-565ft w/4WW - stopped after 4 min d/t R foot pain Short Term Goal (STG) Pt will be able to amb at least 800ft w/4WW and amb for full 6 min w/o significant inc of LBP or R foot pain. 03/04-n/t d/t asthma STG Duration 04/06 Alf Goal (LTG) Pt will be able to amb at least 900ft w/SPC in 6 min w/o significant inc of LBP or R foot pain. LTG Duration 05/26 balance Impairment . Alf Goal (LTG) Pt will show improved balance by ability to do SLS for at least 3 sec B 03/04 LTG Duration 05/26 One Impairment sit to stands (7.5 w/hands) Short Term Goal (STG) Pt will be able to do at least 9 sit to stands w/use of hands from standard chair to show improved functional strength. STG Duration achieved 03/04 Alf Goal (LTG) Pt will be able to do at least 2 sit to stands w/o use of hands from standard chair to show improved functional strength and dec risk for falls. LTG Duration 04/12/23 Assessment Summary Assessment Pt presents after hospitalization d/t allergic reaction to RA drug and 10 weeks s/p XLIF L3-4 fused to L4-S1 prior fusion. She is limited w/ her functional mobility d/t weakness and B foot pain (R>L) along w/ occasional back pain and numbness in RLE. She si showing improved overall LE strength but still very limited. Cont PT to progress pt functional ability w/o inc pain. Physical Therapy Plan Frequency and Duration Frequency of Treatment 2x/Week Duration of treatment (weeks) 12 Plan of Care Start Date 03/04/23 Plan of Care End Date 05/27/23 Therapeutic Interventions Therapeutic Interventions Balance Training,Coordination Training,Gait Training,Home Exercise Program,Joint Mobilizations,Manual Therapy, Neuromuscular Re-education, Orthotic/Prosthetic Management ,Patient/Caregiver Education, Self-Care/Home Management,Soft Tissue Mobilization,Taping, Therapeutic Activities, Therapeutic Exercises Modalities Cold Pack/Ice Massage,Electric Stimulation,Hot Packs, Ultrasound Next Visit Focus/Plan Next Note Type Treatment Note Next Visit Plan supine core progression and gentle standing exercises, scar mobilization.
--- NOTE | 2023-03-04 09:52 | PT.OPPOC ---
Physical, Occupational & Speech Therapy At [facility] Current Diagnoses Pain in right ankle and joints of right foot (03/04/23) Spinal stenosis, lumbar region with neurogenic claudication (03/04/23) Radiculopathy, lumbar region (03/04/23) Difficulty in walking, not elsewhere classified (03/04/23) Unsteadiness on feet (03/04/23) Abnormal posture (03/04/23) Weakness (03/04/23) Arthrodesis status (03/04/23) Visit Care Team Role Provider Type Nai Arita DO Family Provider Physician Primary Care Provider Specialty: Family Practice Address: [address] [place] [address], [address] [place] [address], [facility] Email: [email or web address] Kait Weinstein PA-C Attending Provider Non-Staff Referring Provider Specialty: Medical Address: [address] [place] [address], [address] [place] [address], [facility] Email: Plan Of Care PT-OP-T Assessment and Plan Start: 01/14/23 09:03 Freq: Status: Active Protocol: Document 03/04/23 09:04 [facility] (Rec: 03/04/23 09:50 [facility] [id number]) Physical Therapy Assessment Goals activity Short Term Goal (STG) Pt will be able to return to pool for 50% of workout without inc foot or back pain. 03/04 -has not returned STG Duration 04/06 Jail Goal (LTG) Pt will be able to regularly do full pool work out, gentle strength/balance and walking w /o pain greater than 3/10 03/04-was walking around the block prior to allergic reaction and had one walk to library and back. Has walked aroud the block once. She walked 3 blocks once also LTG Duration 05/20 gait Impairment 6 min walk w/4WW-565ft w/4WW - stopped after 4 min d/t R foot pain Short Term Goal (STG) Pt will be able to amb at least 800ft w/4WW and amb for full 6 min w/o significant inc of LBP or R foot pain. 03/04-n/t d/t asthma STG Duration 04/06 [employer]qu[employer]oom [place] Tier Goal (LTG) Pt will be able to amb at least 900ft w/SPC in 6 min w/o significant inc of LBP or R foot pain. LTG Duration 05/26 balance Impairment . Jacqu[employer] [place] Tier Goal (LTG) Pt will show improved balance by ability to do SLS for at least 3 sec B 03/04 LTG Duration 05/26 One Impairment sit to stands (7.5 w/hands) Short Term Goal (STG) Pt will be able to do at least 9 sit to stands w/use of hands from standard chair to show improved functional strength. STG Duration achieved 03/04 [employer] [place] Tier Goal (LTG) Pt will be able to do at least 2 sit to stands w/o use of hands from standard chair to show improved functional strength and dec risk for falls. LTG Duration 04/12/23 Assessment Summary Assessment Pt presents after hospitalization d/t allergic reaction to RA drug and 10 weeks s/p XLIF L3-4 fused to L4-S1 prior fusion. She is limited w/ her functional mobility d/t weakness and B foot pain (R>L) along w/ occasional back pain and numbness in RLE. She si showing improved overall LE strength but still very limited. Cont PT to progress pt functional ability w/o inc pain. Physical Therapy Plan Frequency and Duration Frequency of Treatment 2x/Week Duration of treatment (weeks) 12 Plan of Care Start Date 03/04/23 Plan of Care End Date 05/27/23 Therapeutic Interventions Therapeutic Interventions Balance Training,Coordination Training,Gait Training,Home Exercise Program,Joint Mobilizations,Manual Therapy, Neuromuscular Re-education, Orthotic/Prosthetic Management ,Patient/Caregiver Education, Self-Care/Home Management,Soft Tissue Mobilization,Taping, Therapeutic Activities, Therapeutic Exercises Modalities Cold Pack/Ice Massage,Electric Stimulation,Hot Packs, Ultrasound Next Visit Focus/Plan Next Note Type Treatment Note Next Visit Plan supine core progression and gentle standing exercises, scar mobilization. Plan of Care Dates Plan of Care Start Date 03/04/23 Plan of Care End Date 05/27/23 Electronically Signed by: Debbie Beyer, PT 03/04/23 0952 If you are in agreement with this Plan of Care, please return a signed and dated copy. I have reviewed this Plan of Care and certify that the skilled therapy services above are required to meet the patient?s needs. Physician Signature Date Printed Name and Credentials Clinical Instructor Signature Printed Name and Credentials
--- NOTE | 2023-03-09 12:21 | PT.OTN ---
Current Diagnoses Pain in right ankle and joints of right foot (03/09/23) Spinal stenosis, lumbar region with neurogenic claudication (03/09/23) Radiculopathy, lumbar region (03/09/23) Difficulty in walking, not elsewhere classified (03/09/23) Unsteadiness on feet (03/09/23) Abnormal posture (03/09/23) Weakness (03/09/23) Arthrodesis status (03/09/23) Physical Therapy Treatment Note PT-OP-A Visit Information Start: 01/14/23 09:03 Freq: Status: Active Protocol: Document 03/09/23 11:29 [facility] (Rec: 03/09/23 12:21 [facility] [id number]) Out-Patient Physical Therapy Visit Information Visit Information Visit Type Treatment Note Visit Start Time 11:20 Visit Stop Time 12:12 Total Visit Minutes 52 Visit Number 10 PT-OP-B Current Condition Start: 01/14/23 09:03 Freq: Status: Active Protocol: Document 03/09/23 11:29 [facility] (Rec: 03/09/23 12:21 [facility] [id number]) Current Condition History of Current Condition Current Complaints XLIF L3-4 fused to L4-S1 prior fusion History of Current Condition 03/04-pt was in ICU for allergic reaction and only recently had improvement on 02/27. She has been on prednisone since and the half life is until tomorrow of the drug. She had breathing issues and welts on her body. She is still having a little trouble breathing w/ asthma. Back has been overall okay. She had one night she couldn't stop the R SI pain even w/percocet. She still has some surface numbness on the inside of her leg. IE:Pt had XLIF done (replaced disc w/bone and put a cage in per pt and came in from R ant) at L3-4 and that was connected to her prior L4-s1 fusion. Pt reports her SI and leg pain or R lat hip is improved since surgery. She is on no pain meds and has tylenol for pain right now. She still has problems on med foot and lower leg on R. Pt reports R foot is getting worse and is considering surgery and possibly another injection. She is using a 4WW d/t her R foot mostly as it is shooting pain from heel to lat foot. reports, pt teeters around the house and occasionally counter surfs in the kitchen. She feels a lot stronger already. pt concered about going back to a cane d/t R foot and is scared she will fall. Pt reprots she can get around to the end of the block and back w/o back pain but the foot limits her. She gets tired and a little sore sup to lat iliac crest. PT-OP-C Subjective Start: 01/14/23 09:03 Freq: Status: Active Protocol: Document 02/17/23 11:17 [facility] (Rec: 02/17/23 12:09 [facility] [id number]) OP-PT Subjective Patient Comments Patient Comments Was supposed to go to [place] yesterday but woke up but right inner thigh numbness into her foot. Cancelled her [place] appointment, iced and did core exercises and iced. Then walked 1 block to concert and was fine, numbness subsided. This am same symptoms though less intense. Last night scar was aching, only did abdominal exercises. PT-OP-E Functional Tests Start: 01/18/23 16:02 Freq: Status: Active Protocol: Document 03/09/23 11:29 [facility] (Rec: 03/09/23 12:21 [facility] [id number]) Functional Tests 6 Minute Walk Test Distance 775 ft Device Used FWW Comments denied SOB, denied LBP, reported foot pain 05/15, no LOB PT-OP-F Manual Assessment Start: 01/14/23 09:03 Freq: Status: Active Protocol: Document 01/18/23 14:37 [facility] (Rec: 01/18/23 16:02 [facility] [id number]) Manual Assessments Other Manual Assessments Other Manual Assessments Good healing of R lat scar and post scar-still some scabbing post PT-OP-G Mobility & Gait Start: 01/14/23 09:03 Freq: Status: Active Protocol: Document 03/04/23 09:04 [facility] (Rec: 03/04/23 09:50 [facility] [id number]) OP Gait Assessment Comments Gait Comments w/FWW w/slight fwd lean PT-OP-J Posture/Palpation/Skin Start: 01/14/23 09:03 Freq: Status: Active Protocol: Document 01/18/23 14:37 [facility] (Rec: 01/18/23 16:02 [facility] [id number]) Posture Evaluation Comments Posture Comments slight flexed position at hips still notable PT-OP-M Strength Start: 01/14/23 09:03 Freq: Status: Active Protocol: Document 03/04/23 09:04 [facility] (Rec: 03/04/23 09:50 [facility] [id number]) Hip Strength Hip Manual Muscle Testing Left Flexion (L2) 4- Good- Abduction 3 Fair External Rotation 4- Good- Internal Rotation 5 Normal Right Flexion (L2) 4- Good- Abduction 2+ Poor+ External Rotation 4- Good- Internal Rotation 4 Good Knee Strength Knee Manual Muscle Testing Left Flexion (S2) 5 Normal Extension (L3) 5 Normal Right Flexion (S2) 5 Normal Extension (L3) 4+ Good+ Ankle/Foot Strength Ankle and Foot Manual Muscle Testing Right Dorsiflexion (L4) 4 Good Plantarflexion (S1) 4+ Good+ Left Dorsiflexion (L4) 4+ Good+ Plantarflexion (S1) 4 Good Comments PF tested seated B PT-OP-Q Treatments Start: 01/14/23 09:03 Freq: Status: Active Protocol: Document 03/09/23 11:29 [facility] (Rec: 03/09/23 12:21 [facility] [id number]) Therapeutic Exercises Sidelying Exercises abd Comments verbal review clamshell Side bilateral Reps/Minutes 5 Comments reviewed form, not rolling back Sitting Exercises sit to stands Sitting Exercise Name 5x Equipment Used mirror Reps/Minutes 5x Comments cues for symmetry Manual Therapy Treatment Soft Tissue Mobilization glutes Body Location piriformis R Mobilization Type Sustained Pressure Intensity/Depth Moderate Body Position Sidelying Comments w/IR Neuro Re-Education Treatment Balance Activities wt shift Details gloria stance, shift heel, toe, right, left with holds Reps/Duration 3 min PT-OP-R Modalities Start: 01/14/23 09:03 Freq: Status: Active Protocol: Document 03/09/23 11:29 [facility] (Rec: 03/09/23 12:21 [facility] [id number]) Hot Pack/Cold Pack Treatment Cold Pack Location LS & SI (R) Patient Position Sidelying Treatment Duration (minutes) 10 PT-OP-T Assessment and Plan Start: 01/14/23 09:03 Freq: Status: Active Protocol: Document 03/09/23 11:29 [facility] (Rec: 03/09/23 12:21 [facility] [id number]) Physical Therapy Assessment Goals activity Short Term Goal (STG) Pt will be able to return to pool for 50% of workout without inc foot or back pain. 03/04 -has not returned STG Duration 04/06 [facility] Goal (LTG) Pt will be able to regularly do full pool work out, gentle strength/balance and walking w /o pain greater than 3/10 03/04-was walking around the block prior to allergic reaction and had one walk to library and back. Has walked aroud the block once. She walked 3 blocks once also LTG Duration 05/20 gait Impairment 6 min walk w/4WW-565ft w/4WW - stopped after 4 min d/t R foot pain Short Term Goal (STG) Pt will be able to amb at least 800ft w/4WW and amb for full 6 min w/o significant inc of LBP or R foot pain. 03/04-n/t d/t asthma 03/09/23: 775 ft 6 min with FWW, no LBP, right foot pain 3/10 STG Duration 04/06 [facility] Goal (LTG) Pt will be able to amb at least 900ft w/SPC in 6 min w/o significant inc of LBP or R foot pain. LTG Duration 05/26 balance Impairment . [employer] Goal (LTG) Pt will show improved balance by ability to do SLS for at least 3 sec B 03/0403/09/23: not tested due to concern over right foot health LTG Duration 05/26 One Impairment sit to stands (7.5 w/hands) Short Term Goal (STG) Pt will be able to do at least 9 sit to stands w/use of hands from standard chair to show improved functional strength. STG Duration achieved 03/04 [employer] Goal (LTG) Pt will be able to do at least 2 sit to stands w/o use of hands from standard chair to show improved functional strength and dec risk for falls. 03/09/22: goal progress, dec use of UE's LTG Duration 04/12/23 Assessment Summary Assessment Patient able to tolerate 6 min walk test with no LBP or LOB. Right foot pain 3/10 (mild inc from baseline at start of PT). Looked at pt orthotic which is soft, cushioned but min support. Discussed considering use of prior, more supportive orthotic; PT instrsucted wear for 1 hr, assess effect, bring to PT. Asthma improved. Physical Therapy Plan Frequency and Duration Frequency of Treatment 2x/Week Duration of treatment (weeks) 12 Plan of Care Start Date 03/04/23 Plan of Care End Date 05/27/23 Therapeutic Interventions Therapeutic Interventions Balance Training,Coordination Training,Gait Training,Home Exercise Program,Joint Mobilizations,Manual Therapy, Neuromuscular Re-education, Orthotic/Prosthetic Management ,Patient/Caregiver Education, Self-Care/Home Management,Soft Tissue Mobilization,Taping, Therapeutic Activities, Therapeutic Exercises Modalities Cold Pack/Ice Massage,Electric Stimulation,Hot Packs, Ultrasound Next Visit Focus/Plan Next Note Type Treatment Note Next Visit Plan supine core progression and gentle standing exercises, scar mobilization.
--- NOTE | 2023-03-11 12:30 | PT.OTN ---
Current Diagnoses Pain in right ankle and joints of right foot (03/11/23) Spinal stenosis, lumbar region with neurogenic claudication (03/11/23) Radiculopathy, lumbar region (03/11/23) Difficulty in walking, not elsewhere classified (03/11/23) Unsteadiness on feet (03/11/23) Abnormal posture (03/11/23) Weakness (03/11/23) Arthrodesis status (03/11/23) Physical Therapy Treatment Note PT-OP-A Visit Information Start: 01/14/23 09:03 Freq: Status: Active Protocol: Document 03/11/23 11:21 [facility] (Rec: 03/11/23 12:29 [facility] [id number]) Out-Patient Physical Therapy Visit Information Visit Information Visit Type Treatment Note Visit Note wore old orthotics for 1 hr yesterday, did fine. Put on just before PT today, states more support for Charcot foot feels good. Hasn't gone to pool yet due to months of nonhealing open sore on left elbow. Encouraged patient to go to wound care for consult. Visit Start Time 11:20 Visit Stop Time 12:14 Total Visit Minutes 54 Visit Number 11 PT-OP-B Current Condition Start: 01/14/23 09:03 Freq: Status: Active Protocol: Document 03/11/23 11:21 [facility] (Rec: 03/11/23 12:29 [facility] [id number]) Current Condition History of Current Condition Current Complaints XLIF L3-4 fused to L4-S1 prior fusion History of Current Condition 03/04-pt was in ICU for allergic reaction and only recently had improvement on 02/27. She has been on prednisone since and the half life is until tomorrow of the drug. She had breathing issues and welts on her body. She is still having a little trouble breathing w/ asthma. Back has been overall okay. She had one night she couldn't stop the R SI pain even w/percocet. She still has some surface numbness on the inside of her leg. IE:Pt had XLIF done (replaced disc w/bone and put a cage in per pt and came in from R ant) at L3-4 and that was connected to her prior L4-s1 fusion. Pt reports her SI and leg pain or R lat hip is improved since surgery. She is on no pain meds and has tylenol for pain right now. She still has problems on med foot and lower leg on R. Pt reports R foot is getting worse and is considering surgery and possibly another injection. She is using a 4WW d/t her R foot mostly as it is shooting pain from heel to lat foot. reports, pt teeters around the house and occasionally counter surfs in the kitchen. She feels a lot stronger already. pt concered about going back to a cane d/t R foot and is scared she will fall. Pt reprots she can get around to the end of the block and back w/o back pain but the foot limits her. She gets tired and a little sore sup to lat iliac crest. PT-OP-C Subjective Start: 01/14/23 09:03 Freq: Status: Active Protocol: Document 02/17/23 11:17 [facility] (Rec: 02/17/23 12:09 [facility] [id number]) OP-PT Subjective Patient Comments Patient Comments Was supposed to go to [place] yesterday but woke up but right inner thigh numbness into her foot. Cancelled her [place] appointment, iced and did core exercises and iced. Then walked 1 block to concert and was fine, numbness subsided. This am same symptoms though less intense. Last night scar was aching, only did abdominal exercises. PT-OP-E Functional Tests Start: 01/18/23 16:02 Freq: Status: Active Protocol: Document 03/09/23 11:29 [facility] (Rec: 03/09/23 12:21 [facility] [id number]) Functional Tests 6 Minute Walk Test Distance 775 ft Device Used FWW Comments denied SOB, denied LBP, reported foot pain 05/15, no LOB PT-OP-F Manual Assessment Start: 01/14/23 09:03 Freq: Status: Active Protocol: Document 01/18/23 14:37 [facility] (Rec: 01/18/23 16:02 [facility] [id number]) Manual Assessments Other Manual Assessments Other Manual Assessments Good healing of R lat scar and post scar-still some scabbing post PT-OP-G Mobility & Gait Start: 01/14/23 09:03 Freq: Status: Active Protocol: Document 03/04/23 09:04 [facility] (Rec: 03/04/23 09:50 [facility] [id number]) OP Gait Assessment Comments Gait Comments w/FWW w/slight fwd lean PT-OP-J Posture/Palpation/Skin Start: 01/14/23 09:03 Freq: Status: Active Protocol: Document 01/18/23 14:37 [facility] (Rec: 01/18/23 16:02 [facility] [id number]) Posture Evaluation Comments Posture Comments slight flexed position at hips still notable PT-OP-M Strength Start: 01/14/23 09:03 Freq: Status: Active Protocol: Document 03/04/23 09:04 [facility] (Rec: 03/04/23 09:50 [facility] [id number]) Hip Strength Hip Manual Muscle Testing Left Flexion (L2) 4- Good- Abduction 3 Fair External Rotation 4- Good- Internal Rotation 5 Normal Right Flexion (L2) 4- Good- Abduction 2+ Poor+ External Rotation 4- Good- Internal Rotation 4 Good Knee Strength Knee Manual Muscle Testing Left Flexion (S2) 5 Normal Extension (L3) 5 Normal Right Flexion (S2) 5 Normal Extension (L3) 4+ Good+ Ankle/Foot Strength Ankle and Foot Manual Muscle Testing Right Dorsiflexion (L4) 4 Good Plantarflexion (S1) 4+ Good+ Left Dorsiflexion (L4) 4+ Good+ Plantarflexion (S1) 4 Good Comments PF tested seated B PT-OP-Q Treatments Start: 01/14/23 09:03 Freq: Status: Active Protocol: Document 03/11/23 11:21 [facility] (Rec: 03/11/23 12:29 [facility] [id number]) Cardio Equipment Recumbent Stepper (Sci-Fit) Duration (Minutes) 5 Resistance 1 Seat Position 13 Other momentary pain to lift left UE onto footplate Therapeutic Exercises Sitting Exercises seated crunch Equipment Used chair, pillow behind spine Reps/Minutes 10x Comments limited ROM (just pull body away from pillow/ back of chair) LAQ Equipment Used chair, pillow behind spine Reps/Minutes 10x5 Comments limited ROM Manual Therapy Treatment Soft Tissue Mobilization glutes Body Location piriformis R Mobilization Type Sustained Pressure Intensity/Depth Moderate Body Position Sidelying Comments w/IR Self-Care/Home Management Treatment Activities Self-Care/Home Management Activities eval of old orthotic right foot, reporting improved support; feel it gives patient foot better support, may need fabrication of new one in near future. Patient to continue with inc wear time gradually as tolerated. PT-OP-R Modalities Start: 01/14/23 09:03 Freq: Status: Active Protocol: Document 03/11/23 11:21 [facility] (Rec: 03/11/23 12:29 [facility] [id number]) Electric Stimulation Electric Stimulation Interferential Current (IFC) Body Location right buttock (piriformis) Duration (Minutes) 10 Intensity 17 Target/Sweep Sweep Patient Position Sidelying Combined With Heat/Cold Cold Pack PT-OP-T Assessment and Plan Start: 01/14/23 09:03 Freq: Status: Active Protocol: Document 03/11/23 11:21 [facility] (Rec: 03/11/23 12:29 [facility] [id number]) Physical Therapy Assessment Goals activity Short Term Goal (STG) Pt will be able to return to pool for 50% of workout without inc foot or back pain. 03/04 -has not returned STG Duration 04/06 [employer] Goal (LTG) Pt will be able to regularly do full pool work out, gentle strength/balance and walking w /o pain greater than /10 03/04-was walking around the block prior to allergic reaction and had one walk to library and back. Has walked aroud the block once. She walked 3 blocks once also LTG Duration 05/20 gait Impairment 6 min walk w/4WW-565ft w/4WW - stopped after 4 min d/t R foot pain Short Term Goal (STG) Pt will be able to amb at least 800ft w/4WW and amb for full 6 min w/o significant inc of LBP or R foot pain. 03/04-n/t d/t asthma 03/09/23: 775 ft 6 min with FWW, no LBP, right foot pain 05/15 STG Duration 04/06 [facility] Goal (LTG) Pt will be able to amb at least 900ft w/SPC in 6 min w/o significant inc of LBP or R foot pain. LTG Duration 05/26 balance Impairment . [employer] Goal (LTG) Pt will show improved balance by ability to do SLS for at least 3 sec B 03/0403/09/23: not tested due to concern over right foot health LTG Duration 05/26 One Impairment sit to stands (7.5 w/hands) Short Term Goal (STG) Pt will be able to do at least 9 sit to stands w/use of hands from standard chair to show improved functional strength. STG Duration achieved 03/04 [facility] Goal (LTG) Pt will be able to do at least 2 sit to stands w/o use of hands from standard chair to show improved functional strength and dec risk for falls. 03/09/22: goal progress, dec use of UE's LTG Duration 04/12/23 Assessment Summary Assessment Reports no adverse reaction to 6 min walk test. Mild pain right lumbar and buttock, improved after PT last session . Feel due to compensatory movement right LE with gait due to habit and right Charcot foot. Trial IFES today, encouraged pt to find her TENS and use at home if feels beneficial today. Physical Therapy Plan Frequency and Duration Frequency of Treatment 2x/Week Duration of treatment (weeks) 12 Plan of Care Start Date 03/04/23 Plan of Care End Date 05/27/23 Therapeutic Interventions Therapeutic Interventions Balance Training,Coordination Training,Gait Training,Home Exercise Program,Joint Mobilizations,Manual Therapy, Neuromuscular Re-education, Orthotic/Prosthetic Management ,Patient/Caregiver Education, Self-Care/Home Management,Soft Tissue Mobilization,Taping, Therapeutic Activities, Therapeutic Exercises Modalities Cold Pack/Ice Massage,Electric Stimulation,Hot Packs, Ultrasound Next Visit Focus/Plan Next Note Type Treatment Note Next Visit Plan Eval response to last session including IFES, seated ex. Continue supine core progression and gentle standing exercises, scar mobilization.
--- NOTE | 2023-03-23 08:45 | PT-OP ANOTE ---
Called pt to discuss pt cancels and ER visits. She is having major respiratory issue likely related to her cont reaction to RA drug. She had to cancel this week and next week. hotel front desk agent informed
--- NOTE | 2023-04-13 14:25 | PT.OTRE ---
Current Diagnoses Pain in right ankle and joints of right foot (04/13/23) Spinal stenosis, lumbar region with neurogenic claudication (04/13/23) Radiculopathy, lumbar region (04/13/23) Difficulty in walking, not elsewhere classified (04/13/23) Unsteadiness on feet (04/13/23) Abnormal posture (04/13/23) Weakness (04/13/23) Arthrodesis status (04/13/23) Past Medical History (Last Updated 04/12/23 @ 09:53 by Nai Arita DO) Asthma (~1990) Asthmatic bronchitis Balance problem Benign essential HTN Carpal tunnel syndrome (~2010) Cervical spine disease (~1979) Chronic back pain Chronic bilateral low back pain with bilateral sciatica Chronic cough Chronic pain syndrome Depression (~1986) 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 DVT (deep venous thrombosis) (~2000) Fractures GERD (gastroesophageal reflux disease) (~1997) Knee pain Low back pain Lumbar compression fracture Lumbar radiculopathy Lumbar spinal stenosis Lumbar spine pain (~1979) Lumbosacral spondylosis Lymphocytic colitis (~2019) Obesity (BMI 30.0-34.9) Osteoarthritis (~1979) Peripheral neuropathy Pulmonary embolism (~2000) Right hip pain Sacroiliac joint dysfunction Scoliosis (~1949) Seronegative rheumatoid arthritis (~2011) Shoulder pain Spondylolisthesis Status post fall Tinnitus Surgical History (Last Reviewed 03/22/23 @ 18:14 by Joaquin Iverson DO) Anesthesia H/O eye surgery (02/05/1958) H/O total hysterectomy (05/06/00) History of arthroscopic knee surgery (~05/07/79) History of carpal tunnel surgery (~06/06/13) History of cataract removal with insertion of prosthetic lens (~04/08/21) History of cholecystectomy (02/05/98) History of foot surgery History of knee surgery (05/05/10) History of left knee surgery (~05/06/77) History of left shoulder replacement (02/16/19) History of plastic surgery (~07/30/04) 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) History of uterine fibroid (~08/07/91) Hx of spinal fusion (10/09/18) Hx of tonsillectomy (07/27/1967) Patellar fracture (~04/18/09) S/P foot surgery, left (~02/16/18) S/P removal of ovarian cyst (~09/05/77) Status post left rotator cuff repair (~04/01/08) Status post lumbar spinal fusion Status post right rotator cuff repair (~05/05/07) Temporomandibular joint disorder (~03/08/77) Visit Care Team Role Provider Type Nai Arita DO Family Provider Physician Primary Care Provider Specialty: Family Practice Address: [address] [place] [address], [facility] [address], [address] Email: [email or web address] Kait Weinstein PA-C Attending Provider Non-Staff Referring Provider Specialty: Medical Address: [address] [place] [address], [address], [place], [address] Email: Physical Therapy Re-Evaluation PT-OP-A Visit Information Start: 01/14/23 09:03 Freq: Status: Active Protocol: Document 04/13/23 09:49 [facility] (Rec: 04/13/23 14:25 [facility] [id number]) Out-Patient Physical Therapy Visit Information Visit Information Visit Type Re-Evaluation Visit Note 03/17 Visit Start Time 09:49 Visit Stop Time 10:30 Visit Number 12 Number of POWER ENGINEER Visits 0 PT-OP-B Current Condition Start: 01/14/23 09:03 Freq: Status: Active Protocol: Document 04/13/23 09:49 [facility] (Rec: 04/13/23 14:25 [facility] [id number]) Current Condition History of Current Condition Current Complaints XLIF L3-4 fused to L4-S1 prior fusion History of Current Condition 2/- has been doing rinses w/ steroid through nose and hearing better as she had moderate to severe hearing loss. She had L ear debrided but R ear was too full w/fluid . She is following w/ENT and seems them Wednesday. Saw Primary yesterday. Some days she can hear out of R ear and soemtimes cannot. Reports she was told sinuses are a mess and will have to rinse sinuses daily. She sees brusher and shearer soon too. She had mult visits to ER. It could still be affect of RA drug. She had a reaction last week where her eyes swelled and had to take steroid and benadryl and it cleared. Going ot stay on methyltrexate. She was unable to do exercises d/t pressure in her lungs. She had her xray recently keyanna SANDOVAL said looked good. She is having no back pain but only occ hip pain. She is still having R foot pain and she is thinking she will have surgery in the fall. The only reason she is using a walker is her foot now. She walks w/o the walker in the kitchen. 03/04-pt was in ICU for allergic reaction 1215-02/23 and only recently had improvement on 02/27. She has been on prednisone since and the half life is until tomorrow of the drug. She had breathing issues and welts on her body. She is still having a little trouble breathing w/ asthma. Back has been overall okay. She had one night she couldn't stop the R SI pain even w/percocet. She still has some surface numbness on the inside of her leg. IE:Pt had XLIF done (replaced disc w/bone and put a cage in per pt and came in from R ant) at L3-4 and that was connected to her prior L4-s1 fusion. Pt reports her SI and leg pain or R lat hip is improved since surgery. She is on no pain meds and has tylenol for pain right now. She still has problems on med foot and lower leg on R. Pt reports R foot is getting worse and is considering surgery and possibly another injection. She is using a 4WW d/t her R foot mostly as it is shooting pain from heel to lat foot. reports, pt teeters around the house and occasionally counter surfs in the kitchen. She feels a lot stronger already. pt concered about going back to a cane d/t R foot and is scared she will fall. Pt reprots she can get around to the end of the block and back w/o back pain but the foot limits her. She gets tired and a little sore sup to lat iliac crest. Treatment Goals Patient/Caregiver Goals Be able to get out and get exercise; be able to get back to the pool for exercise, be able to drive again, get strength back, improve gait; get back to use of cane PT-OP-C Subjective Start: 01/14/23 09:03 Freq: Status: Active Protocol: Document 04/13/23 09:49 [facility] (Rec: 04/13/23 14:25 [facility] [id number]) OP-PT Subjective Patient Comments Patient Comments Pt did one block walk sat and felt fine. PT-OP-E Functional Tests Start: 01/18/23 16:02 Freq: Status: Active Protocol: Document 04/13/23 09:49 [facility] (Rec: 04/13/23 14:25 [facility] [id number]) Functional Tests 6 Minute Walk Test Distance 808ft Device Used fww Comments reported R buttock pain midway 30 Second Sit to Stand Test Score 6 no UEs Comments harris chair Five Times Sit to Stand Test Score 25 sec no UEs Comments harris chair PT-OP-F Manual Assessment Start: 01/14/23 09:03 Freq: Status: Active Protocol: Document 01/18/23 14:37 [facility] (Rec: 01/18/23 16:02 [facility] [id number]) Manual Assessments Other Manual Assessments Other Manual Assessments Good healing of R lat scar and post scar-still some scabbing post PT-OP-G Mobility & Gait Start: 01/14/23 09:03 Freq: Status: Active Protocol: Document 03/04/23 09:04 [facility] (Rec: 03/04/23 09:50 [facility] [id number]) OP Gait Assessment Comments Gait Comments w/FWW w/slight fwd lean PT-OP-J Posture/Palpation/Skin Start: 01/14/23 09:03 Freq: Status: Active Protocol: Document 01/18/23 14:37 [facility] (Rec: 01/18/23 16:02 [facility] [id number]) Posture Evaluation Comments Posture Comments slight flexed position at hips still notable PT-OP-M Strength Start: 01/14/23 09:03 Freq: Status: Active Protocol: Document 04/13/23 09:49 [facility] (Rec: 04/13/23 14:25 [facility] [id number]) Hip Strength Hip Manual Muscle Testing Left Flexion (L2) 4- Good- Abduction 3+ Fair+ External Rotation 4- Good- Internal Rotation 5 Normal Right Flexion (L2) 4- Good- Abduction 3 Fair External Rotation 3+ Fair+ Internal Rotation 4 Good Knee Strength Knee Manual Muscle Testing Left Flexion (S2) 4+ Good+ Extension (L3) 4+ Good+ Right Flexion (S2) 4+ Good+ Extension (L3) 4+ Good+ Ankle/Foot Strength Ankle and Foot Manual Muscle Testing Right Dorsiflexion (L4) 4- Good- Plantarflexion (S1) 4 Good Inversion 3+ Fair+ Eversion (S1) 3+ Fair+ Left Dorsiflexion (L4) 4- Good- Plantarflexion (S1) 4 Good Inversion 3+ Fair+ Eversion (S1) 3+ Fair+ Comments PF tested seated B PT-OP-Q Treatments Start: 01/14/23 09:03 Freq: Status: Active Protocol: Document 04/13/23 09:49 [facility] (Rec: 04/13/23 14:25 [facility] [id number]) Neuro Re-Education Treatment Balance Activities testing Comments ORDOÑEZ 40/56 Self-Care/Home Management Treatment Education Other Education 8 min: discussed trying 2 to 3 small 1 block walks vs increasing the one walk significantly. Discussed w/pt to get follow up to spinal MD. edu that pain may be down d/t dec activity so will have to be gradual w/activity inc PT-OP-R Modalities Start: 01/14/23 09:03 Freq: Status: Active Protocol: Document 03/11/23 11:21 [facility] (Rec: 03/11/23 12:29 [facility] [id number]) Electric Stimulation Electric Stimulation Interferential Current (IFC) Body Location right buttock (piriformis) Duration (Minutes) 10 Intensity 17 Target/Sweep Sweep Patient Position Sidelying Combined With Heat/Cold Cold Pack PT-OP-T Assessment and Plan Start: 01/14/23 09:03 Freq: Status: Active Protocol: Document 04/13/23 09:49 [facility] (Rec: 04/13/23 14:25 [facility] [id number]) Physical Therapy Assessment Goals ORDOÑEZ Impairment 40/56 Senior Living Goal (LTG) Pt will improve ORDOÑEZ score to at least 50 to show safe for outdoor ambulation LTG Duration 4 activity Short Term Goal (STG) Pt will be able to return to pool for 50% of workout without inc foot or back pain. 03/04 -has not returned 2/6-has not been to the pool d /t med complications and sinus issues. STG Duration 05/20 Hand Fur Cleaner Goal (LTG) Pt will be able to regularly do full pool work out, gentle strength/balance and walking w /o pain greater than 3/10 03/04-was walking around the block prior to allergic reaction and had one walk to library and back. Has walked aroud the block once. She walked 3 blocks once also 04/13-one walk d/t sinus complications LTG Duration 07/05 gait Impairment 6 min walk w/4WW-565ft w/4WW - stopped after 4 min d/t R foot pain Short Term Goal (STG) Pt will be able to amb at least 800ft w/4WW and amb for full 6 min w/o significant inc of LBP or R foot pain. 03/04-n/t d/t asthma 03/09/23: 775 ft 6 min with FWW, no LBP, right foot pain 05/15 STG Duration 04/06 Senior Living Goal (LTG) Pt will be able to amb at least 900ft w/SPC in 6 min w/o significant inc of LBP or R foot pain. 04/13-hip pain and her typical foot pain 808ft w/FWW LTG Duration 07/05 balance Impairment . Hand Fur Cleaner Goal (LTG) Pt will show improved balance by ability to do SLS for at least 3 sec B 03/0403/09/23: not tested due to concern over right foot health 04/13-can lift but not balance LTG Duration 07/05 One Impairment sit to stands (7.5 w/hands) Short Term Goal (STG) Pt will be able to do at least 2 sit to stands w/o use of hands from standard chair to show improved functional strength and dec risk for falls. 03/09/22: goal progress, dec use of UE's STG Duration achieved 04/13 Hand Fur Cleaner Goal (LTG) Pt will improve 30 sec sit to stand test to at least 10 to show improved strength and dec risk for falls accordign to age and gender related norms LTG Duration 07/05 Assessment Summary Assessment Despite pt's recent mult ER visits d/t complication w/her allergies/new RA meds, she is progressing w/dec back pain and overall strength and balance is improving, but is limited in funcitonal activity , fall risk and LE and core strenth. Pt would benefit cont PT to work on these deficits and return to improved home function. Physical Therapy Plan Frequency and Duration Frequency of Treatment 2x/Week Duration of treatment (weeks) 12 Plan of Care Start Date 04/13/23 Plan of Care End Date 07/06/23 Therapeutic Interventions Therapeutic Interventions Balance Training,Coordination Training,Gait Training,Home Exercise Program,Joint Mobilizations,Manual Therapy, Neuromuscular Re-education, Orthotic/Prosthetic Management ,Patient/Caregiver Education, Self-Care/Home Management,Soft Tissue Mobilization,Taping, Therapeutic Activities, Therapeutic Exercises Modalities Cold Pack/Ice Massage,Electric Stimulation,Hot Packs, Ultrasound Next Visit Focus/Plan Next Note Type Treatment Note
--- NOTE | 2023-04-13 14:26 | PT.OPPOC ---
Physical, Occupational & Speech Therapy At [facility] Current Diagnoses Pain in right ankle and joints of right foot (04/13/23) Spinal stenosis, lumbar region with neurogenic claudication (04/13/23) Radiculopathy, lumbar region (04/13/23) Difficulty in walking, not elsewhere classified (04/13/23) Unsteadiness on feet (04/13/23) Abnormal posture (04/13/23) Weakness (04/13/23) Arthrodesis status (04/13/23) Visit Care Team Role Provider Type Nai Arita DO Family Provider Physician Primary Care Provider Specialty: Family Practice Address: [address] [place] [address], [address], [facility] Email: [email or web address] Kait Weinstein PA-C Attending Provider Non-Staff Referring Provider Specialty: Medical Address: [address] [place] [address], [address] [place] [address], [facility] Email: Plan Of Care PT-OP-T Assessment and Plan Start: 01/14/23 09:03 Freq: Status: Active Protocol: Document 04/13/23 09:49 [facility] (Rec: 04/13/23 14:25 [facility] [id number]) Physical Therapy Assessment Goals ORDOÑEZ Impairment 40/56 Plating Engineer Goal (LTG) Pt will improve ORDOÑEZ score to at least 50 to show safe for outdoor ambulation LTG Duration 07/05 activity Short Term Goal (STG) Pt will be able to return to pool for 50% of workout without inc foot or back pain. 03/04 -has not returned 2/-has not been to the pool d /t med complications and sinus issues. STG Duration 05/20 Plating Engineer Goal (LTG) Pt will be able to regularly do full pool work out, gentle strength/balance and walking w /o pain greater than 3/10 03/04-was walking around the block prior to allergic reaction and had one walk to library and back. Has walked aroud the block once. She walked 3 blocks once also 2/6-one walk d/t sinus complications LTG Duration 07/05 gait Impairment 6 min walk w/4WW-565ft w/4WW - stopped after 4 min d/t R foot pain Short Term Goal (STG) Pt will be able to amb at least 800ft w/4WW and amb for full 6 min w/o significant inc of LBP or R foot pain. 03/04-n/t d/t asthma 03/09/23: 775 ft 6 min with FWW, no LBP, right foot pain 3 STG Duration 04/06 Plating Engineer Goal (LTG) Pt will be able to amb at least 900ft w/SPC in 6 min w/o significant inc of LBP or R foot pain. 04/13-hip pain and her typical foot pain 808ft w/FWW LTG Duration 07/05 balance Impairment . Plating Engineer Goal (LTG) Pt will show improved balance by ability to do SLS for at least 3 sec B 03/0403/09/23: not tested due to concern over right foot health 04/13-can lift but not balance LTG Duration 07/05 One Impairment sit to stands (7.5 w/hands) Short Term Goal (STG) Pt will be able to do at least 2 sit to stands w/o use of hands from standard chair to show improved functional strength and dec risk for falls. 03/09/22: goal progress, dec use of UE's STG Duration achieved 04/13 Long-Term Goal (LTG) Pt will improve 30 sec sit to stand test to at least 10 to show improved strength and dec risk for falls accordign to age and gender related norms LTG Duration 07/05 Assessment Summary Assessment Despite pt's recent mult ER visits d/t complication w/her allergies/new RA meds, she is progressing w/dec back pain and overall strength and balance is improving, but is limited in funcitonal activity , fall risk and LE and core strenth. Pt would benefit cont PT to work on these deficits and return to improved home function. Physical Therapy Plan Frequency and Duration Frequency of Treatment 2x/Week Duration of treatment (weeks) 12 Plan of Care Start Date 04/13/23 Plan of Care End Date 07/06/23 Therapeutic Interventions Therapeutic Interventions Balance Training,Coordination Training,Gait Training,Home Exercise Program,Joint Mobilizations,Manual Therapy, Neuromuscular Re-education, Orthotic/Prosthetic Management ,Patient/Caregiver Education, Self-Care/Home Management,Soft Tissue Mobilization,Taping, Therapeutic Activities, Therapeutic Exercises Modalities Cold Pack/Ice Massage,Electric Stimulation,Hot Packs, Ultrasound Next Visit Focus/Plan Next Note Type Treatment Note Plan of Care Dates Plan of Care Start Date 04/13/23 Plan of Care End Date 07/06/23 Electronically Signed by: Debbie Beyer, PT 04/13/23 1370 If you are in agreement with this Plan of Care, please return a signed and dated copy. I have reviewed this Plan of Care and certify that the skilled therapy services above are required to meet the patient?s needs. Physician Signature Date Printed Name and Credentials Clinical Instructor Signature Printed Name and Credentials
--- NOTE | 2023-04-15 09:47 | PT.OTN ---
Current Diagnoses Pain in right ankle and joints of right foot (04/15/23) Spinal stenosis, lumbar region with neurogenic claudication (04/15/23) Radiculopathy, lumbar region (04/15/23) Difficulty in walking, not elsewhere classified (04/15/23) Unsteadiness on feet (04/15/23) Abnormal posture (04/15/23) Weakness (04/15/23) Arthrodesis status (04/15/23) Physical Therapy Treatment Note PT-OP-A Visit Information Start: 01/14/23 09:03 Freq: Status: Active Protocol: Document 04/15/23 09:06 [facility] (Rec: 04/15/23 09:47 [facility] [id number]) Out-Patient Physical Therapy Visit Information Visit Information Visit Type Treatment Note Visit Note 04/17 Visit Start Time 09:05 Visit Stop Time 09:55 Visit Number 13 Number of TRAFFIC REPORTER Visits 0 PT-OP-B Current Condition Start: 01/14/23 09:03 Freq: Status: Active Protocol: Document 04/13/23 09:49 [facility] (Rec: 04/13/23 14:25 [facility] [id number]) Current Condition History of Current Condition Current Complaints XLIF L3-4 fused to L4-S1 prior fusion History of Current Condition /- has been doing rinses w/ steroid through nose and hearing better as she had moderate to severe hearing loss. She had L ear debrided but R ear was too full w/fluid . She is following w/ENT and seems them Wednesday. Saw Primary yesterday. Some days she can hear out of R ear and soemtimes cannot. Reports she was told sinuses are a mess and will have to rinse sinuses daily. She sees videotape sales representative soon too. She had mult visits to ER. It could still be affect of RA drug. She had a reaction last week where her eyes swelled and had to take steroid and benadryl and it cleared. Going ot stay on methyltrexate. She was unable to do exercises d/t pressure in her lungs. She had her xray recently keyanna SANDOVAL said looked good. She is having no back pain but only occ hip pain. She is still having R foot pain and she is thinking she will have surgery in the fall. The only reason she is using a walker is her foot now. She walks w/o the walker in the kitchen. 03/04-pt was in ICU for allergic reaction 1215-02/23 and only recently had improvement on 02/27. She has been on prednisone since and the half life is until tomorrow of the drug. She had breathing issues and welts on her body. She is still having a little trouble breathing w/ asthma. Back has been overall okay. She had one night she couldn't stop the R SI pain even w/percocet. She still has some surface numbness on the inside of her leg. IE:Pt had XLIF done (replaced disc w/bone and put a cage in per pt and came in from R ant) at L3-4 and that was connected to her prior L4-s1 fusion. Pt reports her SI and leg pain or R lat hip is improved since surgery. She is on no pain meds and has tylenol for pain right now. She still has problems on med foot and lower leg on R. Pt reports R foot is getting worse and is considering surgery and possibly another injection. She is using a 4WW d/t her R foot mostly as it is shooting pain from heel to lat foot. reports, pt teeters around the house and occasionally counter surfs in the kitchen. She feels a lot stronger already. pt concered about going back to a cane d/t R foot and is scared she will fall. Pt reprots she can get around to the end of the block and back w/o back pain but the foot limits her. She gets tired and a little sore sup to lat iliac crest. Treatment Goals Patient/Caregiver Goals Be able to get out and get exercise; be able to get back to the pool for exercise, be able to drive again, get strength back, improve gait; get back to use of cane PT-OP-C Subjective Start: 01/14/23 09:03 Freq: Status: Active Protocol: Document 04/15/23 09:06 [facility] (Rec: 04/15/23 09:47 [facility] [id number]) OP-PT Subjective Patient Comments Patient Comments Pt reports was wiped after last session. She had some pain in lat ankle and lwoer leg that got better as she walked. She walked and did all her exercises and was pretty tired when she got done. her surgeons office told her she no longer has restrictions but to agnieszka eit easy PT-OP-E Functional Tests Start: 01/18/23 16:02 Freq: Status: Active Protocol: Document 04/13/23 09:49 [facility] (Rec: 04/13/23 14:25 [facility] [id number]) Functional Tests 6 Minute Walk Test Distance 808ft Device Used fww Comments reported R buttock pain midway 30 Second Sit to Stand Test Score 6 no UEs Comments harris chair Five Times Sit to Stand Test Score 25 sec no UEs Comments harris chair PT-OP-F Manual Assessment Start: 01/14/23 09:03 Freq: Status: Active Protocol: Document 01/18/23 14:37 [facility] (Rec: 01/18/23 16:02 [facility] [id number]) Manual Assessments Other Manual Assessments Other Manual Assessments Good healing of R lat scar and post scar-still some scabbing post PT-OP-G Mobility & Gait Start: 01/14/23 09:03 Freq: Status: Active Protocol: Document 03/04/23 09:04 [facility] (Rec: 03/04/23 09:50 [facility] [id number]) OP Gait Assessment Comments Gait Comments w/FWW w/slight fwd lean PT-OP-J Posture/Palpation/Skin Start: 01/14/23 09:03 Freq: Status: Active Protocol: Document 01/18/23 14:37 [facility] (Rec: 01/18/23 16:02 [facility] [id number]) Posture Evaluation Comments Posture Comments slight flexed position at hips still notable PT-OP-M Strength Start: 01/14/23 09:03 Freq: Status: Active Protocol: Document 04/13/23 09:49 [facility] (Rec: 04/13/23 14:25 [facility] [id number]) Hip Strength Hip Manual Muscle Testing Left Flexion (L2) 4- Good- Abduction 3+ Fair+ External Rotation 4- Good- Internal Rotation 5 Normal Right Flexion (L2) 4- Good- Abduction 3 Fair External Rotation 3+ Fair+ Internal Rotation 4 Good Knee Strength Knee Manual Muscle Testing Left Flexion (S2) 4+ Good+ Extension (L3) 4+ Good+ Right Flexion (S2) 4+ Good+ Extension (L3) 4+ Good+ Ankle/Foot Strength Ankle and Foot Manual Muscle Testing Right Dorsiflexion (L4) 4- Good- Plantarflexion (S1) 4 Good Inversion 3+ Fair+ Eversion (S1) 3+ Fair+ Left Dorsiflexion (L4) 4- Good- Plantarflexion (S1) 4 Good Inversion 3+ Fair+ Eversion (S1) 3+ Fair+ Comments PF tested seated B PT-OP-Q Treatments Start: 01/14/23 09:03 Freq: Status: Active Protocol: Document 04/15/23 09:06 [facility] (Rec: 04/15/23 09:47 [facility] [id number]) Therapeutic Exercises Supine Exercises ball squeeze Supine Exercise Name cues for squeezing as much as able Side bilateral Reps/Minutes 10x10 sec Comments cues for core activation & breathing -cued to count out loud ball push down Supine Exercise Name straight, diagonal (unil) Equipment Used 55 cm ball Reps/Minutes 10 sec x10 Comments cues for breathing and pressure as able BKFO Supine Exercise Name TA Side bilateral Reps/Minutes 10 Comments max cues for breathing; comfortable range Sidelying Exercises clamshell Sidelying Exercise Name 1. clam 2. reverse Side bilateral Reps/Minutes 10 Comments reviewed form, not rolling back Sitting Exercises ROM Sitting Exercise Name ankle circles Side right Reps/Minutes 10 ea direction PF/DF Sitting Exercise Name 2# on thigh for PF; 2# on foot for DF Side bilateral Reps/Minutes 15ea Standing Exercises hip abd Side bilateral Reps/Minutes 10 Comments at walker w/light touch hip flexion Side bilateral Reps/Minutes 15 Comments at walker w/light touch Gait Training Gait Activity backwards walk Comments in //bars CGA 4x10ft sidestep Comments 3x10ft B w/cues for control light touch on //bar no device Comments 20ft x2 CGA cane Comments 150ft w/SPC w/cues for sequencing -R foot pain noted at end Self-Care/Home Management Treatment Education Other Education 8 min: edu to be gradual w/inc . If [facility] returns to gym or pool, then do not go for a walk that day or do ALL PT exercises and to try only w/1x a week; edu not ready for a cane d/t inc pain prior to 150ft-cont to use walker at home PT-OP-R Modalities Start: 01/14/23 09:03 Freq: Status: Active Protocol: Document 04/15/23 09:06 [facility] (Rec: 04/15/23 09:47 [facility] [id number]) Hot Pack/Cold Pack Treatment Cold Pack Location LS & SI (R) Patient Position Sidelying PT-OP-T Assessment and Plan Start: 01/14/23 09:03 Freq: Status: Active Protocol: Document 04/15/23 09:06 [facility] (Rec: 04/15/23 09:47 [facility] [id number]) Physical Therapy Assessment Goals ORDOÑEZ Impairment 40/56 Furniture Fabricator Goal (LTG) Pt will improve ORDOÑEZ score to at least 50 to show safe for outdoor ambulation LTG Duration 07/05 activity Short Term Goal (STG) Pt will be able to return to pool for 50% of workout without inc foot or back pain. 03/04 -has not returned 04/13-has not been to the pool d /t med complications and sinus issues. STG Duration 05/20 Furniture Fabricator Goal (LTG) Pt will be able to regularly do full pool work out, gentle strength/balance and walking w /o pain greater than 3/10 03/04-was walking around the block prior to allergic reaction and had one walk to library and back. Has walked aroud the block once. She walked 3 blocks once also 04/13-one walk d/t sinus complications LTG Duration 07/05 gait Impairment 6 min walk w/4WW-565ft w/4WW - stopped after 4 min d/t R foot pain Short Term Goal (STG) Pt will be able to amb at least 800ft w/4WW and amb for full 6 min w/o significant inc of LBP or R foot pain. 03/04-n/t d/t asthma 03/09/23: 775 ft 6 min with FWW, no LBP, right foot pain 05/15 STG Duration 04/06 Intermediate Goal (LTG) Pt will be able to amb at least 900ft w/SPC in 6 min w/o significant inc of LBP or R foot pain. 04/13-hip pain and her typical foot pain 808ft w/FWW LTG Duration 07/05 balance Impairment . Furniture Fabricator Goal (LTG) Pt will show improved balance by ability to do SLS for at least 3 sec B 03/0403/09/23: not tested due to concern over right foot health 04/13-can lift but not balance LTG Duration 07/05 One Impairment sit to stands (7.5 w/hands) Short Term Goal (STG) Pt will be able to do at least 2 sit to stands w/o use of hands from standard chair to show improved functional strength and dec risk for falls. 03/09/22: goal progress, dec use of UE's STG Duration achieved 04/13 Furniture Fabricator Goal (LTG) Pt will improve 30 sec sit to stand test to at least 10 to show improved strength and dec risk for falls accordign to age and gender related norms LTG Duration 07/05 Assessment Summary Assessment D/t pain after walk around clinic w/cane, discussed that pt not ready for cane d/t R foot pain. Edu that want to be able to do at least 150ft w/o inc foot pain prior to changing to AD at home. She required some cues throughout exercises. Physical Therapy Plan Frequency and Duration Frequency of Treatment 2x/Week Duration of treatment (weeks) 12 Plan of Care Start Date 04/13/23 Plan of Care End Date 07/06/23 Next Visit Focus/Plan Next Note Type Treatment Note Next Visit Plan cont to review exercises as needed; advance standing time
--- NOTE | 2023-04-20 16:51 | PT.OTN ---
Current Diagnoses Pain in right ankle and joints of right foot (04/20/23) Spinal stenosis, lumbar region with neurogenic claudication (04/20/23) Radiculopathy, lumbar region (04/20/23) Difficulty in walking, not elsewhere classified (04/20/23) Unsteadiness on feet (04/20/23) Abnormal posture (04/20/23) Weakness (04/20/23) Arthrodesis status (04/20/23) Physical Therapy Treatment Note PT-OP-A Visit Information Start: 01/14/23 09:03 Freq: Status: Active Protocol: Document 04/20/23 11:48 [facility] (Rec: 04/20/23 16:50 [facility] [id number]) Out-Patient Physical Therapy Visit Information Visit Information Visit Type Treatment Note Visit Note 05/15 Visit Start Time 15:17 Visit Stop Time 16:02 Visit Number 14 Number of BAGGER AND STOCK HANDLER HELPER Visits 1 PT-OP-B Current Condition Start: 01/14/23 09:03 Freq: Status: Active Protocol: Document 04/13/23 09:49 [facility] (Rec: 04/13/23 14:25 [facility] [id number]) Current Condition History of Current Condition Current Complaints XLIF L3-4 fused to L4-S1 prior fusion History of Current Condition /- has been doing rinses w/ steroid through nose and hearing better as she had moderate to severe hearing loss. She had L ear debrided but R ear was too full w/fluid . She is following w/ENT and seems them Wednesday. Saw Primary yesterday. Some days she can hear out of R ear and soemtimes cannot. Reports she was told sinuses are a mess and will have to rinse sinuses daily. She sees beekeeper farmer soon too. She had mult visits to ER. It could still be affect of RA drug. She had a reaction last week where her eyes swelled and had to take steroid and benadryl and it cleared. Going ot stay on methyltrexate. She was unable to do exercises d/t pressure in her lungs. She had her xray recently keyanna SANDOVAL said looked good. She is having no back pain but only occ hip pain. She is still having R foot pain and she is thinking she will have surgery in the fall. The only reason she is using a walker is her foot now. She walks w/o the walker in the kitchen. 03/04-pt was in ICU for allergic reaction 1215-02/23 and only recently had improvement on 02/27. She has been on prednisone since and the half life is until tomorrow of the drug. She had breathing issues and welts on her body. She is still having a little trouble breathing w/ asthma. Back has been overall okay. She had one night she couldn't stop the R SI pain even w/percocet. She still has some surface numbness on the inside of her leg. IE:Pt had XLIF done (replaced disc w/bone and put a cage in per pt and came in from R ant) at L3-4 and that was connected to her prior L4-s1 fusion. Pt reports her SI and leg pain or R lat hip is improved since surgery. She is on no pain meds and has tylenol for pain right now. She still has problems on med foot and lower leg on R. Pt reports R foot is getting worse and is considering surgery and possibly another injection. She is using a 4WW d/t her R foot mostly as it is shooting pain from heel to lat foot. reports, pt teeters around the house and occasionally counter surfs in the kitchen. She feels a lot stronger already. pt concered about going back to a cane d/t R foot and is scared she will fall. Pt reprots she can get around to the end of the block and back w/o back pain but the foot limits her. She gets tired and a little sore sup to lat iliac crest. Treatment Goals Patient/Caregiver Goals Be able to get out and get exercise; be able to get back to the pool for exercise, be able to drive again, get strength back, improve gait; get back to use of cane PT-OP-C Subjective Start: 01/14/23 09:03 Freq: Status: Active Protocol: Document 04/20/23 11:48 [facility] (Rec: 04/20/23 16:50 [facility] [id number]) OP-PT Subjective Patient Comments Patient Comments Patient reports her meds are being changed. Patient reports she has been out of breath. PT-OP-E Functional Tests Start: 01/18/23 16:02 Freq: Status: Active Protocol: Document 04/13/23 09:49 [facility] (Rec: 04/13/23 14:25 [facility] [id number]) Functional Tests 6 Minute Walk Test Distance 808ft Device Used fww Comments reported R buttock pain midway 30 Second Sit to Stand Test Score 6 no UEs Comments harris chair Five Times Sit to Stand Test Score 25 sec no UEs Comments harris chair PT-OP-F Manual Assessment Start: 01/14/23 09:03 Freq: Status: Active Protocol: Document 01/18/23 14:37 [facility] (Rec: 01/18/23 16:02 [facility] [id number]) Manual Assessments Other Manual Assessments Other Manual Assessments Good healing of R lat scar and post scar-still some scabbing post PT-OP-G Mobility & Gait Start: 01/14/23 09:03 Freq: Status: Active Protocol: Document 03/04/23 09:04 [facility] (Rec: 03/04/23 09:50 [facility] [id number]) OP Gait Assessment Comments Gait Comments w/FWW w/slight fwd lean PT-OP-J Posture/Palpation/Skin Start: 01/14/23 09:03 Freq: Status: Active Protocol: Document 01/18/23 14:37 [facility] (Rec: 01/18/23 16:02 [facility] [id number]) Posture Evaluation Comments Posture Comments slight flexed position at hips still notable PT-OP-M Strength Start: 01/14/23 09:03 Freq: Status: Active Protocol: Document 04/13/23 09:49 [facility] (Rec: 04/13/23 14:25 [facility] [id number]) Hip Strength Hip Manual Muscle Testing Left Flexion (L2) 4- Good- Abduction 3+ Fair+ External Rotation 4- Good- Internal Rotation 5 Normal Right Flexion (L2) 4- Good- Abduction 3 Fair External Rotation 3+ Fair+ Internal Rotation 4 Good Knee Strength Knee Manual Muscle Testing Left Flexion (S2) 4+ Good+ Extension (L3) 4+ Good+ Right Flexion (S2) 4+ Good+ Extension (L3) 4+ Good+ Ankle/Foot Strength Ankle and Foot Manual Muscle Testing Right Dorsiflexion (L4) 4- Good- Plantarflexion (S1) 4 Good Inversion 3+ Fair+ Eversion (S1) 3+ Fair+ Left Dorsiflexion (L4) 4- Good- Plantarflexion (S1) 4 Good Inversion 3+ Fair+ Eversion (S1) 3+ Fair+ Comments PF tested seated B PT-OP-Q Treatments Start: 01/14/23 09:03 Freq: Status: Active Protocol: Document 04/20/23 11:48 [facility] (Rec: 04/20/23 16:50 [facility] [id number]) Therapeutic Exercises Supine Exercises piriformis stretch Supine Exercise Name from hooklying Side bilateral Reps/Minutes 90 seconds X 2 each LE Comments post manual therapy supine clam Supine Exercise Name supine hip abduction with band Side bilateral Resistance level 2 teal band Reps/Minutes 2 X10 without hold 2 one min holds Comments Patient ed rationale of one min hold for activation Standing Exercises hip ext Standing Exercise Name standing at bar Side bilateral Reps/Minutes X10 Comments VC to perform small movement hip abd Side bilateral Reps/Minutes 10 Comments at bar. vc to avoid toeing out Therapeutic Activity Therapeutic Activity sit to stand Name from a raised seat height Reps/Minutes X10 Comments Patient ed use of self tactile cues for hip hinge trial of X 2 from standard chair, patient unable Manual Therapy Treatment Soft Tissue Mobilization glutes Body Location right gluteal/piriformis area Mobilization Type Cross-Friction,Rolling, Sustained Pressure Intensity/Depth Deep Body Position Sidelying Comments monitored for pain, performed prior to stretch back Body Location right quadratus lumborum and lumbar paraspinals Mobilization Type Rolling,Sustained Pressure Intensity/Depth sup to deep Body Position Sidelying Comments monitored for pain Neuro Re-Education Treatment Balance Activities wt shift Details lateral weight shift standing at bar Surface scale under right LE Equipment scale Reps/Duration 3 min Comments Verbal cues to shift right to a level that does not increase pain and to keep track of tolerance in lbs when performing at home PT-OP-R Modalities Start: 01/14/23 09:03 Freq: Status: Active Protocol: Document 04/15/23 09:06 [facility] (Rec: 04/15/23 09:47 [facility] [id number]) Hot Pack/Cold Pack Treatment Cold Pack Location LS & SI (R) Patient Position Sidelying PT-OP-T Assessment and Plan Start: 01/14/23 09:03 Freq: Status: Active Protocol: Document 04/20/23 11:48 [facility] (Rec: 04/20/23 16:50 [facility] [id number]) Physical Therapy Assessment Goals ORDOÑEZ Impairment 40/56 Assistant Speech Language Pathologist Goal (LTG) Pt will improve ORDOÑEZ score to at least 50 to show safe for outdoor ambulation LTG Duration 4/30 activity Short Term Goal (STG) Pt will be able to return to pool for 50% of workout without inc foot or back pain. 03/04 -has not returned 04/13-has not been to the pool d /t med complications and sinus issues. STG Duration 05/20 Skilled Nursing Goal (LTG) Pt will be able to regularly do full pool work out, gentle strength/balance and walking w /o pain greater than /10 03/04-was walking around the block prior to allergic reaction and had one walk to library and back. Has walked aroud the block once. She walked 3 blocks once also 04/13-one walk d/t sinus complications LTG Duration 07/05 gait Impairment 6 min walk w/4WW-565ft w/4WW - stopped after 4 min d/t R foot pain Short Term Goal (STG) Pt will be able to amb at least 800ft w/4WW and amb for full 6 min w/o significant inc of LBP or R foot pain. 03/04-n/t d/t asthma 03/09/23: 775 ft 6 min with FWW, no LBP, right foot pain 05/15 STG Duration 04/06 Assistant Speech Language Pathologist Goal (LTG) Pt will be able to amb at least 900ft w/SPC in 6 min w/o significant inc of LBP or R foot pain. 04/13-hip pain and her typical foot pain 808ft w/FWW LTG Duration 07/05 balance Impairment . Assistant Speech Language Pathologist Goal (LTG) Pt will show improved balance by ability to do SLS for at least 3 sec B 03/0403/09/23: not tested due to concern over right foot health 04/13-can lift but not balance LTG Duration 07/05 One Impairment sit to stands (7.5 w/hands) Short Term Goal (STG) Pt will be able to do at least 2 sit to stands w/o use of hands from standard chair to show improved functional strength and dec risk for falls. 03/09/22: goal progress, dec use of UE's STG Duration achieved 04/13 Skilled Nursing Goal (LTG) Pt will improve 30 sec sit to stand test to at least 10 to show improved strength and dec risk for falls accordign to age and gender related norms LTG Duration 07/05 Assessment Summary Assessment Patient reports back feels good end of session. Posture with FWW impacted by eyes on feet and difficulty with transition from carpet to tile ( sidewalks at home also, per patient ) when using FWW during exit out of session. Physical Therapy Plan Frequency and Duration Frequency of Treatment 2x/Week Duration of treatment (weeks) 12 Plan of Care Start Date 04/13/23 Plan of Care End Date 07/06/23 Next Visit Focus/Plan Next Note Type Treatment Note Next Visit Plan cont to review exercises as needed; advance standing time
--- NOTE | 2023-04-22 16:50 | PT.OTN ---
Current Diagnoses Pain in right ankle and joints of right foot (04/22/23) Spinal stenosis, lumbar region with neurogenic claudication (04/22/23) Radiculopathy, lumbar region (04/22/23) Difficulty in walking, not elsewhere classified (04/22/23) Unsteadiness on feet (04/22/23) Abnormal posture (04/22/23) Weakness (04/22/23) Arthrodesis status (04/22/23) Physical Therapy Treatment Note PT-OP-A Visit Information Start: 01/14/23 09:03 Freq: Status: Active Protocol: Document 04/22/23 16:06 [facility] (Rec: 04/22/23 16:50 [facility] [id number]) Out-Patient Physical Therapy Visit Information Visit Information Visit Type Treatment Note Visit Note 06/15 Visit Start Time 16:05 Visit Stop Time 16:45 Visit Number 15 Number of INDUSTRIAL PROPERTY APPRAISER Visits 0 PT-OP-B Current Condition Start: 01/14/23 09:03 Freq: Status: Active Protocol: Document 04/13/23 09:49 [facility] (Rec: 04/13/23 14:25 [facility] [id number]) Current Condition History of Current Condition Current Complaints XLIF L3-4 fused to L4-S1 prior fusion History of Current Condition /- has been doing rinses w/ steroid through nose and hearing better as she had moderate to severe hearing loss. She had L ear debrided but R ear was too full w/fluid . She is following w/ENT and seems them Wednesday. Saw Primary yesterday. Some days she can hear out of R ear and soemtimes cannot. Reports she was told sinuses are a mess and will have to rinse sinuses daily. She sees wholesale parts salesperson soon too. She had mult visits to ER. It could still be affect of RA drug. She had a reaction last week where her eyes swelled and had to take steroid and benadryl and it cleared. Going ot stay on methyltrexate. She was unable to do exercises d/t pressure in her lungs. She had her xray recently keyanna SANDOVAL said looked good. She is having no back pain but only occ hip pain. She is still having R foot pain and she is thinking she will have surgery in the fall. The only reason she is using a walker is her foot now. She walks w/o the walker in the kitchen. 03/04-pt was in ICU for allergic reaction 1215-02/23 and only recently had improvement on 02/27. She has been on prednisone since and the half life is until tomorrow of the drug. She had breathing issues and welts on her body. She is still having a little trouble breathing w/ asthma. Back has been overall okay. She had one night she couldn't stop the R SI pain even w/percocet. She still has some surface numbness on the inside of her leg. IE:Pt had XLIF done (replaced disc w/bone and put a cage in per pt and came in from R ant) at L3-4 and that was connected to her prior L4-s1 fusion. Pt reports her SI and leg pain or R lat hip is improved since surgery. She is on no pain meds and has tylenol for pain right now. She still has problems on med foot and lower leg on R. Pt reports R foot is getting worse and is considering surgery and possibly another injection. She is using a 4WW d/t her R foot mostly as it is shooting pain from heel to lat foot. reports, pt teeters around the house and occasionally counter surfs in the kitchen. She feels a lot stronger already. pt concered about going back to a cane d/t R foot and is scared she will fall. Pt reprots she can get around to the end of the block and back w/o back pain but the foot limits her. She gets tired and a little sore sup to lat iliac crest. Treatment Goals Patient/Caregiver Goals Be able to get out and get exercise; be able to get back to the pool for exercise, be able to drive again, get strength back, improve gait; get back to use of cane PT-OP-C Subjective Start: 01/14/23 09:03 Freq: Status: Active Protocol: Document 04/22/23 16:06 [facility] (Rec: 04/22/23 16:50 [facility] [id number]) OP-PT Subjective Patient Comments Patient Comments Pt saw high energy forming equipment operator yesterday. Taking arencia now for RA. She is going to take the injection at the wholesale parts salesperson and stay all day. She is restarting Methyltrexate on Wednesday. She is back on prednisone today. Had an asthma attck she left [employer]estock [employer] and stopped at asthma doc and that started her on prednisone and a breathing treatment. Last night had ot do breathing treatment and inhales and was til 3 am after them. She hasn' t done anything today. Has been SOB. She is doing breathing treatments as needed . Back feels fine. She has one spot at scar that hurt this AM. PT-OP-E Functional Tests Start: 01/18/23 16:02 Freq: Status: Active Protocol: Document 04/13/23 09:49 [facility] (Rec: 04/13/23 14:25 [facility] [id number]) Functional Tests 6 Minute Walk Test Distance 808ft Device Used fww Comments reported R buttock pain midway 30 Second Sit to Stand Test Score 6 no UEs Comments harris chair Five Times Sit to Stand Test Score 25 sec no UEs Comments harris chair PT-OP-F Manual Assessment Start: 01/14/23 09:03 Freq: Status: Active Protocol: Document 01/18/23 14:37 [facility] (Rec: 01/18/23 16:02 [facility] [id number]) Manual Assessments Other Manual Assessments Other Manual Assessments Good healing of R lat scar and post scar-still some scabbing post PT-OP-G Mobility & Gait Start: 01/14/23 09:03 Freq: Status: Active Protocol: Document 03/04/23 09:04 [facility] (Rec: 03/04/23 09:50 [facility] [id number]) OP Gait Assessment Comments Gait Comments w/FWW w/slight fwd lean PT-OP-J Posture/Palpation/Skin Start: 01/14/23 09:03 Freq: Status: Active Protocol: Document 01/18/23 14:37 [facility] (Rec: 01/18/23 16:02 [facility] [id number]) Posture Evaluation Comments Posture Comments slight flexed position at hips still notable PT-OP-M Strength Start: 01/14/23 09:03 Freq: Status: Active Protocol: Document 04/13/23 09:49 [facility] (Rec: 04/13/23 14:25 [facility] [id number]) Hip Strength Hip Manual Muscle Testing Left Flexion (L2) 4- Good- Abduction 3+ Fair+ External Rotation 4- Good- Internal Rotation 5 Normal Right Flexion (L2) 4- Good- Abduction 3 Fair External Rotation 3+ Fair+ Internal Rotation 4 Good Knee Strength Knee Manual Muscle Testing Left Flexion (S2) 4+ Good+ Extension (L3) 4+ Good+ Right Flexion (S2) 4+ Good+ Extension (L3) 4+ Good+ Ankle/Foot Strength Ankle and Foot Manual Muscle Testing Right Dorsiflexion (L4) 4- Good- Plantarflexion (S1) 4 Good Inversion 3+ Fair+ Eversion (S1) 3+ Fair+ Left Dorsiflexion (L4) 4- Good- Plantarflexion (S1) 4 Good Inversion 3+ Fair+ Eversion (S1) 3+ Fair+ Comments PF tested seated B PT-OP-Q Treatments Start: 01/14/23 09:03 Freq: Status: Active Protocol: Document 04/22/23 16:06 [facility] (Rec: 04/22/23 16:50 [facility] [id number]) Therapeutic Exercises Sitting Exercises ROM Sitting Exercise Name ankle inversion/eversion Side bilateral Reps/Minutes 30 PF/DF Sitting Exercise Name DF w/ lvl 1 band 2. PF w/LVL 2 band Side bilateral Reps/Minutes 20 ea Neuro Re-Education Treatment Balance Activities hurdles Details over 6 hurdles Surface firm Comments 1.fwd recip w/rail x5 2. lat x2 B foam Details head turns and EC trials Comments WBOS, NBOS & staggered stance B may Comments alt may x10 w/o rail workng on control wt shift Details bar prn Reps/Duration 2x[address] into leg as she did in sitting w/facilitation Other Activities facilitation Comments PT traction through RLE in sitting for faciitation of glute and wt acceptance into RLE -3 reps w/prolonged holds PT-OP-R Modalities Start: 01/14/23 09:03 Freq: Status: Active Protocol: Document 04/15/23 09:06 [facility] (Rec: 04/15/23 09:47 [facility] [id number]) Hot Pack/Cold Pack Treatment Cold Pack Location LS & SI (R) Patient Position Sidelying PT-OP-T Assessment and Plan Start: 01/14/23 09:03 Freq: Status: Active Protocol: Document 04/22/23 16:06 [facility] (Rec: 04/22/23 16:50 [facility] [id number]) Physical Therapy Assessment Goals ORDOÑEZ Impairment 40/56 Darklight Inspector Goal (LTG) Pt will improve ORDOÑEZ score to at least 50 to show safe for outdoor ambulation LTG Duration 07/05 activity Short Term Goal (STG) Pt will be able to return to pool for 50% of workout without inc foot or back pain. 03/04 -has not returned 04/13-has not been to the pool d /t med complications and sinus issues. STG Duration 05/20 Mcfp Goal (LTG) Pt will be able to regularly do full pool work out, gentle strength/balance and walking w /o pain greater than /10 03/04-was walking around the block prior to allergic reaction and had one walk to library and back. Has walked aroud the block once. She walked 3 blocks once also 04/13-one walk d/t sinus complications LTG Duration 07/05 gait Impairment 6 min walk w/4WW-565ft w/4WW - stopped after 4 min d/t R foot pain Short Term Goal (STG) Pt will be able to amb at least 800ft w/4WW and amb for full 6 min w/o significant inc of LBP or R foot pain. 03/04-n/t d/t asthma 03/09/23: 775 ft 6 min with FWW, no LBP, right foot pain 05/15 STG Duration 04/06 Mcfp Goal (LTG) Pt will be able to amb at least 900ft w/SPC in 6 min w/o significant inc of LBP or R foot pain. 04/13-hip pain and her typical foot pain 808ft w/FWW LTG Duration 07/05 balance Impairment . Darklight Inspector Goal (LTG) Pt will show improved balance by ability to do SLS for at least 3 sec B 03/0403/09/23: not tested due to concern over right foot health 04/13-can lift but not balance LTG Duration 07/05 One Impairment sit to stands (7.5 w/hands) Short Term Goal (STG) Pt will be able to do at least 2 sit to stands w/o use of hands from standard chair to show improved functional strength and dec risk for falls. 03/09/22: goal progress, dec use of UE's STG Duration achieved 04/13 Darklight Inspector Goal (LTG) Pt will improve 30 sec sit to stand test to at least 10 to show improved strength and dec risk for falls accordign to age and gender related norms LTG Duration 07/05 Assessment Summary Assessment Pt had much improved wt acceptance into RLE after facilitaiton. She cont to improve w/stability but was SOB mult times in session today requiring sitting exercise. Physical Therapy Plan Frequency and Duration Frequency of Treatment 2x/Week Duration of treatment (weeks) 12 Plan of Care Start Date 04/13/23 Plan of Care End Date 07/06/23 Next Visit Focus/Plan Next Note Type Treatment Note Next Visit Plan cont to review exercises as needed; advance standing time as tolerated
--- NOTE | 2023-04-26 16:07 | PT.OTN ---
Current Diagnoses Pain in right ankle and joints of right foot (04/26/23) Spinal stenosis, lumbar region with neurogenic claudication (04/26/23) Radiculopathy, lumbar region (04/26/23) Difficulty in walking, not elsewhere classified (04/26/23) Unsteadiness on feet (04/26/23) Abnormal posture (04/26/23) Weakness (04/26/23) Arthrodesis status (04/26/23) Physical Therapy Treatment Note PT-OP-A Visit Information Start: 01/14/23 09:03 Freq: Status: Active Protocol: Document 04/26/23 15:29 [facility] (Rec: 04/26/23 16:07 [facility] [id number]) Out-Patient Physical Therapy Visit Information Visit Information Visit Type Treatment Note Visit Note 07/15 Visit Start Time 15:22 Visit Stop Time 16:10 Visit Number 16 Number of WARP PREPARER Visits 0 PT-OP-B Current Condition Start: 01/14/23 09:03 Freq: Status: Active Protocol: Document 04/13/23 09:49 [facility] (Rec: 04/13/23 14:25 [facility] [id number]) Current Condition History of Current Condition Current Complaints XLIF L3-4 fused to L4-S1 prior fusion History of Current Condition 2/6- has been doing rinses w/ steroid through nose and hearing better as she had moderate to severe hearing loss. She had L ear debrided but R ear was too full w/fluid . She is following w/ENT and seems them Wednesday. Saw Primary yesterday. Some days she can hear out of R ear and soemtimes cannot. Reports she was told sinuses are a mess and will have to rinse sinuses daily. She sees professor of german soon too. She had mult visits to ER. It could still be affect of RA drug. She had a reaction last week where her eyes swelled and had to take steroid and benadryl and it cleared. Going ot stay on methyltrexate. She was unable to do exercises d/t pressure in her lungs. She had her xray recently keyanna SANDOVAL said looked good. She is having no back pain but only occ hip pain. She is still having R foot pain and she is thinking she will have surgery in the fall. The only reason she is using a walker is her foot now. She walks w/o the walker in the kitchen. 03/04-pt was in ICU for allergic reaction 1215-02/23 and only recently had improvement on 02/27. She has been on prednisone since and the half life is until tomorrow of the drug. She had breathing issues and welts on her body. She is still having a little trouble breathing w/ asthma. Back has been overall okay. She had one night she couldn't stop the R SI pain even w/percocet. She still has some surface numbness on the inside of her leg. IE:Pt had XLIF done (replaced disc w/bone and put a cage in per pt and came in from R ant) at L3-4 and that was connected to her prior L4-s1 fusion. Pt reports her SI and leg pain or R lat hip is improved since surgery. She is on no pain meds and has tylenol for pain right now. She still has problems on med foot and lower leg on R. Pt reports R foot is getting worse and is considering surgery and possibly another injection. She is using a 4WW d/t her R foot mostly as it is shooting pain from heel to lat foot. reports, pt teeters around the house and occasionally counter surfs in the kitchen. She feels a lot stronger already. pt concered about going back to a cane d/t R foot and is scared she will fall. Pt reprots she can get around to the end of the block and back w/o back pain but the foot limits her. She gets tired and a little sore sup to lat iliac crest. Treatment Goals Patient/Caregiver Goals Be able to get out and get exercise; be able to get back to the pool for exercise, be able to drive again, get strength back, improve gait; get back to use of cane PT-OP-C Subjective Start: 01/14/23 09:03 Freq: Status: Active Protocol: Document 04/26/23 15:29 [facility] (Rec: 04/26/23 16:07 [facility] [id number]) OP-PT Subjective Patient Comments Patient Comments Pt notes wants to go thru [facility]. Notes she thinks she did something wrong because her LB and thoracic is sore. PT-OP-E Functional Tests Start: 01/18/23 16:02 Freq: Status: Active Protocol: Document 04/13/23 09:49 [facility] (Rec: 04/13/23 14:25 [facility] [id number]) Functional Tests 6 Minute Walk Test Distance 808ft Device Used fww Comments reported R buttock pain midway 30 Second Sit to Stand Test Score 6 no UEs Comments harris chair Five Times Sit to Stand Test Score 25 sec no UEs Comments harris chair PT-OP-F Manual Assessment Start: 01/14/23 09:03 Freq: Status: Active Protocol: Document 01/18/23 14:37 [facility] (Rec: 01/18/23 16:02 [facility] [id number]) Manual Assessments Other Manual Assessments Other Manual Assessments Good healing of R lat scar and post scar-still some scabbing post PT-OP-G Mobility & Gait Start: 01/14/23 09:03 Freq: Status: Active Protocol: Document 03/04/23 09:04 [facility] (Rec: 03/04/23 09:50 [facility] [id number]) OP Gait Assessment Comments Gait Comments w/FWW w/slight fwd lean PT-OP-J Posture/Palpation/Skin Start: 01/14/23 09:03 Freq: Status: Active Protocol: Document 01/18/23 14:37 [facility] (Rec: 01/18/23 16:02 [facility] [id number]) Posture Evaluation Comments Posture Comments slight flexed position at hips still notable PT-OP-M Strength Start: 01/14/23 09:03 Freq: Status: Active Protocol: Document 04/13/23 09:49 [facility] (Rec: 04/13/23 14:25 [facility] [id number]) Hip Strength Hip Manual Muscle Testing Left Flexion (L2) 4- Good- Abduction 3+ Fair+ External Rotation 4- Good- Internal Rotation 5 Normal Right Flexion (L2) 4- Good- Abduction 3 Fair External Rotation 3+ Fair+ Internal Rotation 4 Good Knee Strength Knee Manual Muscle Testing Left Flexion (S2) 4+ Good+ Extension (L3) 4+ Good+ Right Flexion (S2) 4+ Good+ Extension (L3) 4+ Good+ Ankle/Foot Strength Ankle and Foot Manual Muscle Testing Right Dorsiflexion (L4) 4- Good- Plantarflexion (S1) 4 Good Inversion 3+ Fair+ Eversion (S1) 3+ Fair+ Left Dorsiflexion (L4) 4- Good- Plantarflexion (S1) 4 Good Inversion 3+ Fair+ Eversion (S1) 3+ Fair+ Comments PF tested seated B PT-OP-Q Treatments Start: 01/14/23 09:03 Freq: Status: Active Protocol: Document 04/26/23 15:29 [facility] (Rec: 04/26/23 16:07 [facility] [id number]) Therapeutic Exercises Supine Exercises TA Supine Exercise Name 1. may 2. heel slides 3. SLR Side bilateral Reps/Minutes 10 ea Comments cues for TAbd Sidelying Exercises open book Side bilateral Reps/Minutes 10 ea Sitting Exercises dynadisc Sitting Exercise Name 1. pelvic tilt 2. lat tilts 3. circles CW/CWW Side bilateral Reps/Minutes 10 ea Manual Therapy Treatment Soft Tissue Mobilization scar Body Location B pos scaprs Mobilization Type Myofascial Release,Rolling, Sustained Pressure Intensity/Depth sup to mod Body Position Sidelying Self-Care/Home Management Treatment Education Other Education 10 min: review of exercises and looking through papers; dsicussed pool program and edu to stay in shallow end to start and to eventually inc but do not do more than 30 min ; review on log roll technique of shoulders and hips moving together. PT-OP-R Modalities Start: 01/14/23 09:03 Freq: Status: Active Protocol: Document 04/26/23 15:29 [facility] (Rec: 04/26/23 16:07 [facility] [id number]) Hot Pack/Cold Pack Treatment Cold Pack Location Lumbar Patient Position Sidelying PT-OP-T Assessment and Plan Start: 01/14/23 09:03 Freq: Status: Active Protocol: Document 04/26/23 15:29 [facility] (Rec: 04/26/23 16:07 [facility] [id number]) Physical Therapy Assessment Goals ORDOÑEZ Impairment 40/56 Senior Living Goal (LTG) Pt will improve ORDOÑEZ score to at least 50 to show safe for outdoor ambulation LTG Duration 07/05 activity Short Term Goal (STG) Pt will be able to return to pool for 50% of workout without inc foot or back pain. 03/04 -has not returned /-has not been to the pool d /t med complications and sinus issues. STG Duration 05/20 Sleep Tech Goal (LTG) Pt will be able to regularly do full pool work out, gentle strength/balance and walking w /o pain greater than 3/10 03/04-was walking around the block prior to allergic reaction and had one walk to library and back. Has walked aroud the block once. She walked 3 blocks once also 04/13-one walk d/t sinus complications LTG Duration 07/05 gait Impairment 6 min walk w/4WW-565ft w/4WW - stopped after 4 min d/t R foot pain Short Term Goal (STG) Pt will be able to amb at least 800ft w/4WW and amb for full 6 min w/o significant inc of LBP or R foot pain. 03/04-n/t d/t asthma 03/09/23: 775 ft 6 min with FWW, no LBP, right foot pain 05/15 STG Duration 04/06 Sleep Tech Goal (LTG) Pt will be able to amb at least 900ft w/SPC in 6 min w/o significant inc of LBP or R foot pain. 04/13-hip pain and her typical foot pain 808ft w/FWW LTG Duration 07/05 balance Impairment . Senior Living Goal (LTG) Pt will show improved balance by ability to do SLS for at least 3 sec B 03/0403/09/23: not tested due to concern over right foot health 04/13-can lift but not balance LTG Duration 07/05 One Impairment sit to stands (7.5 w/hands) Short Term Goal (STG) Pt will be able to do at least 2 sit to stands w/o use of hands from standard chair to show improved functional strength and dec risk for falls. 03/09/22: goal progress, dec use of UE's STG Duration achieved 04/13 Sleep Tech Goal (LTG) Pt will improve 30 sec sit to stand test to at least 10 to show improved strength and dec risk for falls accordign to age and gender related norms LTG Duration 07/05 Assessment Summary Assessment Pt did well with exercises with cues and reminders for neutral core and breathing. Pt shows understanding w/log roll to roll side ot side. Scar tissue still has inc tension w/post scar that does improve w/STM Physical Therapy Plan Frequency and Duration Frequency of Treatment 2x/Week Duration of treatment (weeks) 12 Plan of Care Start Date 04/13/23 Plan of Care End Date 07/06/23 Next Visit Focus/Plan Next Note Type Treatment Note Next Visit Plan cont to review exercises as needed; advance standing time as tolerated
--- NOTE | 2023-04-28 15:13 | PT.OTN ---
Current Diagnoses Pain in right ankle and joints of right foot (04/28/23) Spinal stenosis, lumbar region with neurogenic claudication (04/28/23) Radiculopathy, lumbar region (04/28/23) Difficulty in walking, not elsewhere classified (04/28/23) Unsteadiness on feet (04/28/23) Abnormal posture (04/28/23) Weakness (04/28/23) Arthrodesis status (04/28/23) Physical Therapy Treatment Note PT-OP-A Visit Information Start: 01/14/23 09:03 Freq: Status: Active Protocol: Document 04/28/23 14:33 SP (Rec: 04/28/23 16:06 SP [id number]) Out-Patient Physical Therapy Visit Information Visit Information Visit Type Treatment Note Visit Note 08/15 Visit Start Time 14:33 Visit Stop Time 15:13 Visit Number 17 Number of BLACKING MACHINE OPERATOR Visits 1 Precautions Precautions 8 weeks post-op PT-OP-B Current Condition Start: 01/14/23 09:03 Freq: Status: Active Protocol: Document 04/13/23 09:49 [facility] (Rec: 04/13/23 14:25 [facility] [id number]) Current Condition History of Current Condition Current Complaints XLIF L3-4 fused to L4-S1 prior fusion History of Current Condition /- has been doing rinses w/ steroid through nose and hearing better as she had moderate to severe hearing loss. She had L ear debrided but R ear was too full w/fluid . She is following w/ENT and seems them Wednesday. Saw Primary yesterday. Some days she can hear out of R ear and soemtimes cannot. Reports she was told sinuses are a mess and will have to rinse sinuses daily. She sees captain/check airman soon too. She had mult visits to ER. It could still be affect of RA drug. She had a reaction last week where her eyes swelled and had to take steroid and benadryl and it cleared. Going ot stay on methyltrexate. She was unable to do exercises d/t pressure in her lungs. She had her xray recently keyanna SANDOVAL said looked good. She is having no back pain but only occ hip pain. She is still having R foot pain and she is thinking she will have surgery in the fall. The only reason she is using a walker is her foot now. She walks w/o the walker in the kitchen. 03/04-pt was in ICU for allergic reaction 1215-02/23 and only recently had improvement on 02/27. She has been on prednisone since and the half life is until tomorrow of the drug. She had breathing issues and welts on her body. She is still having a little trouble breathing w/ asthma. Back has been overall okay. She had one night she couldn't stop the R SI pain even w/percocet. She still has some surface numbness on the inside of her leg. IE:Pt had XLIF done (replaced disc w/bone and put a cage in per pt and came in from R ant) at L3-4 and that was connected to her prior L4-s1 fusion. Pt reports her SI and leg pain or R lat hip is improved since surgery. She is on no pain meds and has tylenol for pain right now. She still has problems on med foot and lower leg on R. Pt reports R foot is getting worse and is considering surgery and possibly another injection. She is using a 4WW d/t her R foot mostly as it is shooting pain from heel to lat foot. reports, pt teeters around the house and occasionally counter surfs in the kitchen. She feels a lot stronger already. pt concered about going back to a cane d/t R foot and is scared she will fall. Pt reprots she can get around to the end of the block and back w/o back pain but the foot limits her. She gets tired and a little sore sup to lat iliac crest. Treatment Goals Patient/Caregiver Goals Be able to get out and get exercise; be able to get back to the pool for exercise, be able to drive again, get strength back, improve gait; get back to use of cane PT-OP-C Subjective Start: 01/14/23 09:03 Freq: Status: Active Protocol: Document 04/28/23 14:33 SP (Rec: 04/28/23 16:06 SP [id number]) OP-PT Subjective Patient Comments Patient Comments Pt arrived with R AFO to trial donning in shoe and comfort during gait for R ankle/arch support until can have ankle surgery Nov. Wants to review HEP and if can do stair mgt for visiting family, will find out how many stairs and rail support has to work with in PT . PT-OP-E Functional Tests Start: 01/18/23 16:02 Freq: Status: Active Protocol: Document 04/13/23 09:49 [facility] (Rec: 04/13/23 14:25 [facility] [id number]) Functional Tests 6 Minute Walk Test Distance 808ft Device Used fww Comments reported R buttock pain midway 30 Second Sit to Stand Test Score 6 no UEs Comments harris chair Five Times Sit to Stand Test Score 25 sec no UEs Comments harris chair PT-OP-F Manual Assessment Start: 01/14/23 09:03 Freq: Status: Active Protocol: Document 01/18/23 14:37 [facility] (Rec: 01/18/23 16:02 [facility] [id number]) Manual Assessments Other Manual Assessments Other Manual Assessments Good healing of R lat scar and post scar-still some scabbing post PT-OP-G Mobility & Gait Start: 01/14/23 09:03 Freq: Status: Active Protocol: Document 03/04/23 09:04 [facility] (Rec: 03/04/23 09:50 [facility] [id number]) OP Gait Assessment Comments Gait Comments w/FWW w/slight fwd lean PT-OP-J Posture/Palpation/Skin Start: 01/14/23 09:03 Freq: Status: Active Protocol: Document 01/18/23 14:37 [facility] (Rec: 01/18/23 16:02 [facility] [id number]) Posture Evaluation Comments Posture Comments slight flexed position at hips still notable PT-OP-M Strength Start: 01/14/23 09:03 Freq: Status: Active Protocol: Document 04/13/23 09:49 [facility] (Rec: 04/13/23 14:25 [facility] [id number]) Hip Strength Hip Manual Muscle Testing Left Flexion (L2) 4- Good- Abduction 3+ Fair+ External Rotation 4- Good- Internal Rotation 5 Normal Right Flexion (L2) 4- Good- Abduction 3 Fair External Rotation 3+ Fair+ Internal Rotation 4 Good Knee Strength Knee Manual Muscle Testing Left Flexion (S2) 4+ Good+ Extension (L3) 4+ Good+ Right Flexion (S2) 4+ Good+ Extension (L3) 4+ Good+ Ankle/Foot Strength Ankle and Foot Manual Muscle Testing Right Dorsiflexion (L4) 4- Good- Plantarflexion (S1) 4 Good Inversion 3+ Fair+ Eversion (S1) 3+ Fair+ Left Dorsiflexion (L4) 4- Good- Plantarflexion (S1) 4 Good Inversion 3+ Fair+ Eversion (S1) 3+ Fair+ Comments PF tested seated B PT-OP-Q Treatments Start: 01/14/23 09:03 Freq: Status: Active Protocol: Document 04/28/23 14:33 SP (Rec: 04/28/23 16:06 SP [id number]) Therapeutic Exercises Supine Exercises shld AAROM Supine Exercise Name FF, habd/hadd Equipment Used clasp hand>cane support Reps/Minutes x10 reps Comments cued slow control TA Supine Exercise Name 1. may 2. heel slides 3. SLR Side bilateral Reps/Minutes 10 ea Comments cues for TAbd, good self Pt self palpation feedback- good level pelvis BKFO Supine Exercise Name TA Side bilateral Equipment Used good breath Reps/Minutes 10 Comments self palpating TA, good engagement end range able Sidelying Exercises open book Sidelying Exercise Name HOLD 04/28/23 Side bilateral Reps/Minutes 10 ea Comments causes pain and needs MAX assist to perform partial range- HOLD 04/28 Sitting Exercises sit to stands Sitting Exercise Name no UE support Equipment Used mirror, mesh chair Reps/Minutes 8x total Comments cues for symmetry, hip hinge slow descend, improved less 1 quick desc Standing Exercises step ups Standing Exercise Name for LE strength assess to able to do few stairs at family visiting soon Equipment Used 6 step B HR support Reps/Minutes 8reps each LE Comments min/Mod BUE support- will ask family rail have at home. Gait Training Gait Activity stair mgt Description future tx FWW Device Used FWW Level of Assistance Mod I Distance/Duration 170 ft Treatment Focus heel toe, stability /c /s AD. Comments use of R AFO donned, irritation/pain medial maleolus and arch /plantar R foot with distance. I think my foot has changed since not wearing pre back surgery. Afraid to wear due to causing off balance recovering from back surgery. PT-OP-R Modalities Start: 01/14/23 09:03 Freq: Status: Active Protocol: Document 04/26/23 15:29 [facility] (Rec: 04/26/23 16:07 [facility] [id number]) Hot Pack/Cold Pack Treatment Cold Pack Location Lumbar Patient Position Sidelying PT-OP-T Assessment and Plan Start: 01/14/23 09:03 Freq: Status: Active Protocol: Document 04/28/23 14:33 SP (Rec: 04/28/23 16:06 SP [id number]) Physical Therapy Assessment Goals ORDOÑEZ Impairment 40/56 Fdc Goal (LTG) Pt will improve ORDOÑEZ score to at least 50 to show safe for outdoor ambulation LTG Duration 07/05 activity Short Term Goal (STG) Pt will be able to return to pool for 50% of workout without inc foot or back pain. 03/04 -has not returned 04/13-has not been to the pool d /t med complications and sinus issues. STG Duration 05/20 Surveying Crew Stake Runner Goal (LTG) Pt will be able to regularly do full pool work out, gentle strength/balance and walking w /o pain greater than 05/15 03/04-was walking around the block prior to allergic reaction and had one walk to library and back. Has walked aroud the block once. She walked 3 blocks once also 04/13-one walk d/t sinus complications LTG Duration 07/05 gait Impairment 6 min walk w/4WW-565ft w/4WW - stopped after 4 min d/t R foot pain Short Term Goal (STG) Pt will be able to amb at least 800ft w/4WW and amb for full 6 min w/o significant inc of LBP or R foot pain. 03/04-n/t d/t asthma 03/09/23: 775 ft 6 min with FWW, no LBP, right foot pain 05/15 STG Duration 04/06 Surveying Crew Stake Runner Goal (LTG) Pt will be able to amb at least 900ft w/SPC in 6 min w/o significant inc of LBP or R foot pain. 04/13-hip pain and her typical foot pain 808ft w/FWW LTG Duration 07/05 balance Impairment . Fdc Goal (LTG) Pt will show improved balance by ability to do SLS for at least 3 sec B 03/0403/09/23: not tested due to concern over right foot health 04/13-can lift but not balance LTG Duration 07/05 One Impairment sit to stands (7.5 w/hands) Short Term Goal (STG) Pt will be able to do at least 2 sit to stands w/o use of hands from standard chair to show improved functional strength and dec risk for falls. 03/09/22: goal progress, dec use of UE's STG Duration achieved 04/13 Surveying Crew Stake Runner Goal (LTG) Pt will improve 30 sec sit to stand test to at least 10 to show improved strength and dec risk for falls accordign to age and gender related norms 04/28/23: able complete 5 reps without UE support, not timed. LTG Duration 07/05 Assessment Summary Assessment Pt improved TA engagement with self palpation felt, set up, performance good form during supine HEP review/performance. WIll continue to progress full stair mgt for safety. Time spent on self don/doff R AFO into shoe, Min A complete R foot slide fully. Pt c/o medial malleolus and under arch pain during gait, will reach out to events traffic controller to see if can make adjustments for stability support until have ankle surgery in Nov. Have not worn since pre back surgery. Pt no adverse affects to review TA STS and trialed step ups for strengthening mobility to allow mgt stairs at family home future weeks. Physical Therapy Plan Frequency and Duration Frequency of Treatment 2x/Week Duration of treatment (weeks) 12 Plan of Care Start Date 04/13/23 Plan of Care End Date 07/06/23 Therapeutic Interventions Therapeutic Interventions Balance Training,Coordination Training,Gait Training,Home Exercise Program,Joint Mobilizations,Manual Therapy, Neuromuscular Re-education, Orthotic/Prosthetic Management ,Patient/Caregiver Education, Self-Care/Home Management,Soft Tissue Mobilization,Taping, Therapeutic Activities, Therapeutic Exercises Modalities Cold Pack/Ice Massage,Electric Stimulation,Hot Packs, Ultrasound Next Visit Focus/Plan Next Note Type Treatment Note Next Visit Plan Ask tolerance to standing activity gait and stair mgt last tx. POC: cont to review exercises as needed; advance standing time as tolerated
--- NOTE | 2023-05-03 17:49 | PT.OTN ---
Current Diagnoses Pain in right ankle and joints of right foot (05/03/23) Spinal stenosis, lumbar region with neurogenic claudication (05/03/23) Radiculopathy, lumbar region (05/03/23) Difficulty in walking, not elsewhere classified (05/03/23) Unsteadiness on feet (05/03/23) Abnormal posture (05/03/23) Weakness (05/03/23) Arthrodesis status (05/03/23) Physical Therapy Treatment Note PT-OP-A Visit Information Start: 01/14/23 09:03 Freq: Status: Active Protocol: Document 05/03/23 16:11 [facility] (Rec: 05/03/23 17:49 [facility] [id number]) Out-Patient Physical Therapy Visit Information Visit Information Visit Type Treatment Note Visit Note 09/14 Visit Start Time 16:08 Visit Stop Time 16:46 Visit Number 18 Number of GELATIN MAKER UTILITY Visits 0 PT-OP-B Current Condition Start: 01/14/23 09:03 Freq: Status: Active Protocol: Document 04/13/23 09:49 [facility] (Rec: 04/13/23 14:25 [facility] [id number]) Current Condition History of Current Condition Current Complaints XLIF L3-4 fused to L4-S1 prior fusion History of Current Condition 2/- has been doing rinses w/ steroid through nose and hearing better as she had moderate to severe hearing loss. She had L ear debrided but R ear was too full w/fluid . She is following w/ENT and seems them [facility]. Saw Primary yesterday. Some days she can hear out of R ear and soemtimes cannot. Reports she was told sinuses are a mess and will have to rinse sinuses daily. She sees mechanical engineering intern soon too. She had mult visits to ER. It could still be affect of RA drug. She had a reaction last week where her eyes swelled and had to take steroid and benadryl and it cleared. Going ot stay on methyltrexate. She was unable to do exercises d/t pressure in her lungs. She had her xray recently keyanna SANDOVAL said looked good. She is having no back pain but only occ hip pain. She is still having R foot pain and she is thinking she will have surgery in the fall. The only reason she is using a walker is her foot now. She walks w/o the walker in the kitchen. 03/04-pt was in ICU for allergic reaction 1215-02/23 and only recently had improvement on 02/27. She has been on prednisone since and the half life is until tomorrow of the drug. She had breathing issues and welts on her body. She is still having a little trouble breathing w/ asthma. Back has been overall okay. She had one night she couldn't stop the R SI pain even w/percocet. She still has some surface numbness on the inside of her leg. IE:Pt had XLIF done (replaced disc w/bone and put a cage in per pt and came in from R ant) at L3-4 and that was connected to her prior L4-s1 fusion. Pt reports her SI and leg pain or R lat hip is improved since surgery. She is on no pain meds and has tylenol for pain right now. She still has problems on med foot and lower leg on R. Pt reports R foot is getting worse and is considering surgery and possibly another injection. She is using a 4WW d/t her R foot mostly as it is shooting pain from heel to lat foot. reports, pt teeters around the house and occasionally counter surfs in the kitchen. She feels a lot stronger already. pt concered about going back to a cane d/t R foot and is scared she will fall. Pt reprots she can get around to the end of the block and back w/o back pain but the foot limits her. She gets tired and a little sore sup to lat iliac crest. Treatment Goals Patient/Caregiver Goals Be able to get out and get exercise; be able to get back to the pool for exercise, be able to drive again, get strength back, improve gait; get back to use of cane PT-OP-C Subjective Start: 01/14/23 09:03 Freq: Status: Active Protocol: Document 05/03/23 16:11 [facility] (Rec: 05/03/23 17:49 [facility] [id number]) OP-PT Subjective Patient Comments Patient Comments Pt walked down steps one step at a time w/B hand rails. Has felt stronger in the past week . She went to the pool on sat and did 30 min and felt good. Is walking more around the house w/o walker PT-OP-E Functional Tests Start: 01/18/23 16:02 Freq: Status: Active Protocol: Document 04/13/23 09:49 [facility] (Rec: 04/13/23 14:25 [facility] [id number]) Functional Tests 6 Minute Walk Test Distance 808ft Device Used fww Comments reported R buttock pain midway 30 Second Sit to Stand Test Score 6 no UEs Comments harris chair Five Times Sit to Stand Test Score 25 sec no UEs Comments harris chair PT-OP-F Manual Assessment Start: 01/14/23 09:03 Freq: Status: Active Protocol: Document 01/18/23 14:37 [facility] (Rec: 01/18/23 16:02 [facility] [id number]) Manual Assessments Other Manual Assessments Other Manual Assessments Good healing of R lat scar and post scar-still some scabbing post PT-OP-G Mobility & Gait Start: 01/14/23 09:03 Freq: Status: Active Protocol: Document 03/04/23 09:04 [facility] (Rec: 03/04/23 09:50 [facility] [id number]) OP Gait Assessment Comments Gait Comments w/FWW w/slight fwd lean PT-OP-J Posture/Palpation/Skin Start: 01/14/23 09:03 Freq: Status: Active Protocol: Document 01/18/23 14:37 [facility] (Rec: 01/18/23 16:02 [facility] [id number]) Posture Evaluation Comments Posture Comments slight flexed position at hips still notable PT-OP-M Strength Start: 01/14/23 09:03 Freq: Status: Active Protocol: Document 04/13/23 09:49 [facility] (Rec: 04/13/23 14:25 [facility] [id number]) Hip Strength Hip Manual Muscle Testing Left Flexion (L2) 4- Good- Abduction 3+ Fair+ External Rotation 4- Good- Internal Rotation 5 Normal Right Flexion (L2) 4- Good- Abduction 3 Fair External Rotation 3+ Fair+ Internal Rotation 4 Good Knee Strength Knee Manual Muscle Testing Left Flexion (S2) 4+ Good+ Extension (L3) 4+ Good+ Right Flexion (S2) 4+ Good+ Extension (L3) 4+ Good+ Ankle/Foot Strength Ankle and Foot Manual Muscle Testing Right Dorsiflexion (L4) 4- Good- Plantarflexion (S1) 4 Good Inversion 3+ Fair+ Eversion (S1) 3+ Fair+ Left Dorsiflexion (L4) 4- Good- Plantarflexion (S1) 4 Good Inversion 3+ Fair+ Eversion (S1) 3+ Fair+ Comments PF tested seated B PT-OP-Q Treatments Start: 01/14/23 09:03 Freq: Status: Active Protocol: Document 05/03/23 16:11 [facility] (Rec: 05/03/23 17:49 [facility] [id number]) Therapeutic Exercises Sidelying Exercises open book Side bilateral Reps/Minutes 8 ea Comments max cues for thoracic rot an dgoing to only light pec stretch Sitting Exercises Core Sitting Exercise Name sit backs Equipment Used w/cane on back Reps/Minutes 10 Standing Exercises step ups Side bilateral Equipment Used 6 step B HR support Reps/Minutes 8reps each LE Manual Therapy Treatment Soft Tissue Mobilization scar Body Location B pos scaprs Mobilization Type Myofascial Release,Rolling, Sustained Pressure Intensity/Depth sup to mod Body Position Sitting Comments w/pelvic tilt Neuro Re-Education Treatment Balance Activities cones Details zig zag through cones Equipment SPC Reps/Duration 2x20ft head turns Equipment SPC Comments 1. horizontal 2x20ft 3. vertical 2x20ft hurdles Details over 6 hurdles Surface firm Comments 1.fwd recip w/rail x2 2. fwd recip w/SPCx2 Self-Care/Home Management Treatment Education Other Education 5 min: discussion of cont gradual inc of pool activity without doing too much at once . review of HEP verbal PT-OP-R Modalities Start: 01/14/23 09:03 Freq: Status: Active Protocol: Document 04/26/23 15:29 [facility] (Rec: 04/26/23 16:07 [facility] [id number]) Hot Pack/Cold Pack Treatment Cold Pack Location Lumbar Patient Position Sidelying PT-OP-T Assessment and Plan Start: 01/14/23 09:03 Freq: Status: Active Protocol: Document 05/03/23 16:11 [facility] (Rec: 05/03/23 17:49 [facility] [id number]) Physical Therapy Assessment Goals ORDOÑEZ Impairment 40/56 Fci Goal (LTG) Pt will improve ORDOÑEZ score to at least 50 to show safe for outdoor ambulation LTG Duration 30 activity Short Term Goal (STG) Pt will be able to return to pool for 50% of workout without inc foot or back pain. 03/04 -has not returned 04/13-has not been to the pool d /t med complications and sinus issues. STG Duration 05/20 Fci Goal (LTG) Pt will be able to regularly do full pool work out, gentle strength/balance and walking w /o pain greater than 3/10 03/04-was walking around the block prior to allergic reaction and had one walk to library and back. Has walked aroud the block once. She walked 3 blocks once also 04/13-one walk d/t sinus complications LTG Duration 07/05 gait Impairment 6 min walk w/4WW-565ft w/4WW - stopped after 4 min d/t R foot pain Short Term Goal (STG) Pt will be able to amb at least 800ft w/4WW and amb for full 6 min w/o significant inc of LBP or R foot pain. 03/04-n/t d/t asthma 03/09/23: 775 ft 6 min with FWW, no LBP, right foot pain 05/15 STG Duration 04/06 Reservation Agent Goal (LTG) Pt will be able to amb at least 900ft w/SPC in 6 min w/o significant inc of LBP or R foot pain. 04/13-hip pain and her typical foot pain 808ft w/FWW LTG Duration 07/05 balance Impairment . Reservation Agent Goal (LTG) Pt will show improved balance by ability to do SLS for at least 3 sec B 03/0403/09/23: not tested due to concern over right foot health 04/13-can lift but not balance LTG Duration 07/05 One Impairment sit to stands (7.5 w/hands) Short Term Goal (STG) Pt will be able to do at least 2 sit to stands w/o use of hands from standard chair to show improved functional strength and dec risk for falls. 03/09/22: goal progress, dec use of UE's STG Duration achieved 04/13 Reservation Agent Goal (LTG) Pt will improve 30 sec sit to stand test to at least 10 to show improved strength and dec risk for falls accordign to age and gender related norms 04/28/23: able complete 5 reps without UE support, not timed. LTG Duration 07/05 Assessment Summary Assessment pt required occ rest breaks for R foot w/gait exercises, and did have to slow down w/ cane w/balance tasks. Does show dec RLE strength w/step ups and fatigues B w/this activity Physical Therapy Plan Frequency and Duration Frequency of Treatment 2x/Week Duration of treatment (weeks) 12 Plan of Care Start Date 04/13/23 Plan of Care End Date 07/06/23 Next Visit Focus/Plan Next Note Type Treatment Note Next Visit Plan cont to review exercises as needed; advance standing time as tolerated & work on cane stability
--- NOTE | 2023-05-05 16:40 | PT.OTN ---
Current Diagnoses Pain in right ankle and joints of right foot (05/05/23) Spinal stenosis, lumbar region with neurogenic claudication (05/05/23) Radiculopathy, lumbar region (05/05/23) Difficulty in walking, not elsewhere classified (05/05/23) Unsteadiness on feet (05/05/23) Abnormal posture (05/05/23) Weakness (05/05/23) Arthrodesis status (05/05/23) Physical Therapy Treatment Note PT-OP-A Visit Information Start: 01/14/23 09:03 Freq: Status: Active Protocol: Document 05/05/23 13:00 [facility] (Rec: 05/05/23 13:46 [facility] [id number]) Out-Patient Physical Therapy Visit Information Visit Information Visit Type Treatment Note Visit Note 10/15 Visit Start Time 13:01 Visit Stop Time 14:00 Visit Number 19 Number of PHYSICS FACULTY MEMBER Visits 0 Precautions Precautions 4 months post op on 04/25/23 PT-OP-B Current Condition Start: 01/14/23 09:03 Freq: Status: Active Protocol: Document 04/13/23 09:49 [facility] (Rec: 04/13/23 14:25 [facility] [id number]) Current Condition History of Current Condition Current Complaints XLIF L3-4 fused to L4-S1 prior fusion History of Current Condition 04/13- has been doing rinses w/ steroid through nose and hearing better as she had moderate to severe hearing loss. She had L ear debrided but R ear was too full w/fluid . She is following w/ENT and seems them Wednesday. Saw Primary yesterday. Some days she can hear out of R ear and soemtimes cannot. Reports she was told sinuses are a mess and will have to rinse sinuses daily. She sees heavy duty mechanic farm equipment soon too. She had mult visits to ER. It could still be affect of RA drug. She had a reaction last week where her eyes swelled and had to take steroid and benadryl and it cleared. Going ot stay on methyltrexate. She was unable to do exercises d/t pressure in her lungs. She had her xray recently keyanna SANDOVAL said looked good. She is having no back pain but only occ hip pain. She is still having R foot pain and she is thinking she will have surgery in the fall. The only reason she is using a walker is her foot now. She walks w/o the walker in the kitchen. 03/04-pt was in ICU for allergic reaction 1215-02/23 and only recently had improvement on 02/27. She has been on prednisone since and the half life is until tomorrow of the drug. She had breathing issues and welts on her body. She is still having a little trouble breathing w/ asthma. Back has been overall okay. She had one night she couldn't stop the R SI pain even w/percocet. She still has some surface numbness on the inside of her leg. IE:Pt had XLIF done (replaced disc w/bone and put a cage in per pt and came in from R ant) at L3-4 and that was connected to her prior L4-s1 fusion. Pt reports her SI and leg pain or R lat hip is improved since surgery. She is on no pain meds and has tylenol for pain right now. She still has problems on med foot and lower leg on R. Pt reports R foot is getting worse and is considering surgery and possibly another injection. She is using a 4WW d/t her R foot mostly as it is shooting pain from heel to lat foot. reports, pt teeters around the house and occasionally counter surfs in the kitchen. She feels a lot stronger already. pt concered about going back to a cane d/t R foot and is scared she will fall. Pt reprots she can get around to the end of the block and back w/o back pain but the foot limits her. She gets tired and a little sore sup to lat iliac crest. Treatment Goals Patient/Caregiver Goals Be able to get out and get exercise; be able to get back to the pool for exercise, be able to drive again, get strength back, improve gait; get back to use of cane PT-OP-C Subjective Start: 01/14/23 09:03 Freq: Status: Active Protocol: Document 05/05/23 13:00 [facility] (Rec: 05/05/23 13:46 [facility] [id number]) OP-PT Subjective Patient Comments Patient Comments Woke with left sided pain thoracic and lumbar region; did exercises and used ice but symptoms persist. Going to the pool again tomorrow, plans 40 min as recommened by primary PT after tolerating 30 min intial. Considering looking at hand controls for car due to some difficulty with feeling right LE. Anticipating having surgery right foot toward end of this year. Able to walk up and down stairs, 2 feet on each step. Still having difficulty doing reverse clamshell on right. Seeing surgeon for post-op follow-up next Wednesday. Thinks may have overdone last session, doesn't want to work on balance due to pain in back today. PT-OP-E Functional Tests Start: 01/18/23 16:02 Freq: Status: Active Protocol: Document 04/13/23 09:49 [facility] (Rec: 04/13/23 14:25 [facility] [id number]) Functional Tests 6 Minute Walk Test Distance 808ft Device Used fww Comments reported R buttock pain midway 30 Second Sit to Stand Test Score 6 no UEs Comments harris chair Five Times Sit to Stand Test Score 25 sec no UEs Comments harris chair PT-OP-F Manual Assessment Start: 01/14/23 09:03 Freq: Status: Active Protocol: Document 01/18/23 14:37 [facility] (Rec: 01/18/23 16:02 [facility] [id number]) Manual Assessments Other Manual Assessments Other Manual Assessments Good healing of R lat scar and post scar-still some scabbing post PT-OP-G Mobility & Gait Start: 01/14/23 09:03 Freq: Status: Active Protocol: Document 03/04/23 09:04 [facility] (Rec: 03/04/23 09:50 [facility] [id number]) OP Gait Assessment Comments Gait Comments w/FWW w/slight fwd lean PT-OP-J Posture/Palpation/Skin Start: 01/14/23 09:03 Freq: Status: Active Protocol: Document 01/18/23 14:37 [facility] (Rec: 01/18/23 16:02 [facility] [id number]) Posture Evaluation Comments Posture Comments slight flexed position at hips still notable PT-OP-M Strength Start: 01/14/23 09:03 Freq: Status: Active Protocol: Document 04/13/23 09:49 [facility] (Rec: 04/13/23 14:25 [facility] [id number]) Hip Strength Hip Manual Muscle Testing Left Flexion (L2) 4- Good- Abduction 3+ Fair+ External Rotation 4- Good- Internal Rotation 5 Normal Right Flexion (L2) 4- Good- Abduction 3 Fair External Rotation 3+ Fair+ Internal Rotation 4 Good Knee Strength Knee Manual Muscle Testing Left Flexion (S2) 4+ Good+ Extension (L3) 4+ Good+ Right Flexion (S2) 4+ Good+ Extension (L3) 4+ Good+ Ankle/Foot Strength Ankle and Foot Manual Muscle Testing Right Dorsiflexion (L4) 4- Good- Plantarflexion (S1) 4 Good Inversion 3+ Fair+ Eversion (S1) 3+ Fair+ Left Dorsiflexion (L4) 4- Good- Plantarflexion (S1) 4 Good Inversion 3+ Fair+ Eversion (S1) 3+ Fair+ Comments PF tested seated B PT-OP-Q Treatments Start: 01/14/23 09:03 Freq: Status: Active Protocol: Document 05/05/23 13:00 [facility] (Rec: 05/05/23 13:46 [facility] [id number]) Cardio Equipment Recumbent Stepper (Sci-Fit) Duration (Minutes) 10 Resistance 1 Seat Position 13 Other denied pain Therapeutic Exercises Sidelying Exercises open book Side bilateral Reps/Minutes 4x Comments modified, gentle Sitting Exercises Core Sitting Exercise Name sit backs Reps/Minutes 10 Comments cues for long spine, corrected patient initiating with l/s ext sit to stands Comments held due left sided pain inc with sit to stand Manual Therapy Treatment Soft Tissue Mobilization back Body Location left lumbar paraspinals, periscap Mobilization Type Myofascial Release,Rolling, Sustained Pressure Intensity/Depth sup to deep Body Position Sidelying Comments monitored for pain Neuro Re-Education Treatment Balance Activities cones Comments held due to patient request left sided pain head turns Comments held due to patient request left sided pain hurdles Comments held due to patient request left sided pain PT-OP-R Modalities Start: 01/14/23 09:03 Freq: Status: Active Protocol: Document 05/05/23 13:00 [facility] (Rec: 05/05/23 16:39 [facility] [id number]) Hot Pack/Cold Pack Treatment Hot Pack Location left thoracolumbar spine Patient Position Sidelying Patient Tolerance Good Comments folded towel under patient abdomen for support, less spinal strain Patient did ice at home requested trial heat at PT. PT-OP-T Assessment and Plan Start: 01/14/23 09:03 Freq: Status: Active Protocol: Document 05/05/23 13:00 [facility] (Rec: 05/05/23 13:46 [facility] [id number]) Physical Therapy Assessment Goals ORDOÑEZ Impairment 40/56 Denture Finisher Goal (LTG) Pt will improve ORDOÑEZ score to at least 50 to show safe for outdoor ambulation LTG Duration 07/05 activity Short Term Goal (STG) Pt will be able to return to pool for 50% of workout without inc foot or back pain. 03/04 -has not returned 04/13-has not been to the pool d /t med complications and sinus issues. STG Duration 05/20 Nursing Home Goal (LTG) Pt will be able to regularly do full pool work out, gentle strength/balance and walking w /o pain greater than 05/15 03/04-was walking around the block prior to allergic reaction and had one walk to library and back. Has walked aroud the block once. She walked 3 blocks once also 04/13-one walk d/t sinus complications LTG Duration 07/05 gait Impairment 6 min walk w/4WW-565ft w/4WW - stopped after 4 min d/t R foot pain Short Term Goal (STG) Pt will be able to amb at least 800ft w/4WW and amb for full 6 min w/o significant inc of LBP or R foot pain. 03/04-n/t d/t asthma 03/09/23: 775 ft 6 min with FWW, no LBP, right foot pain 05/15 STG Duration 04/06 Denture Finisher Goal (LTG) Pt will be able to amb at least 900ft w/SPC in 6 min w/o significant inc of LBP or R foot pain. 04/13-hip pain and her typical foot pain 808ft w/FWW LTG Duration 07/05 balance Denture Finisher Goal (LTG) Pt will show improved balance by ability to do SLS for at least 3 sec B 03/0403/09/23: not tested due to concern over right foot health 04/13-can lift but not balance LTG Duration 07/05 One Impairment sit to stands (7.5 w/hands) Short Term Goal (STG) Pt will be able to do at least 2 sit to stands w/o use of hands from standard chair to show improved functional strength and dec risk for falls. 03/09/22: goal progress, dec use of UE's STG Duration achieved 04/13 Denture Finisher Goal (LTG) Pt will improve 30 sec sit to stand test to at least 10 to show improved strength and dec risk for falls accordign to age and gender related norms 04/28/23: able complete 5 reps without UE support, not timed. LTG Duration 07/05 Assessment Summary Assessment Treatment modified due to patient c/o feeling she may have overdone ex last session with reports left sided pain scap to lumbar. Decreased muscle tension and pain after treatment today. Physical Therapy Plan Frequency and Duration Frequency of Treatment 2x/Week Duration of treatment (weeks) 12 Plan of Care Start Date 04/13/23 Plan of Care End Date 07/06/23 Therapeutic Interventions Therapeutic Interventions Balance Training,Coordination Training,Gait Training,Home Exercise Program,Joint Mobilizations,Manual Therapy, Neuromuscular Re-education, Orthotic/Prosthetic Management ,Patient/Caregiver Education, Self-Care/Home Management,Soft Tissue Mobilization,Taping, Therapeutic Activities, Therapeutic Exercises Modalities Cold Pack/Ice Massage,Electric Stimulation,Hot Packs, Ultrasound Next Visit Focus/Plan Next Note Type Treatment Note Next Visit Plan cont to review exercises as needed; advance standing time as tolerated & work on cane stability
--- NOTE | 2023-05-11 10:08 | PT.OTN ---
Current Diagnoses Pain in right ankle and joints of right foot (05/11/23) Spinal stenosis, lumbar region with neurogenic claudication (05/11/23) Radiculopathy, lumbar region (05/11/23) Difficulty in walking, not elsewhere classified (05/11/23) Unsteadiness on feet (05/11/23) Abnormal posture (05/11/23) Weakness (05/11/23) Arthrodesis status (05/11/23) Physical Therapy Treatment Note PT-OP-A Visit Information Start: 01/14/23 09:03 Freq: Status: Active Protocol: Document 05/11/23 09:04 [facility] (Rec: 05/11/23 10:08 [facility] [id number]) Out-Patient Physical Therapy Visit Information Visit Information Visit Type Progress Note Visit Note 03/17 Visit Start Time 09:05 Visit Stop Time 09:45 Visit Number 20 Number of RECREATION ADVISER Visits 0 PT-OP-B Current Condition Start: 01/14/23 09:03 Freq: Status: Active Protocol: Document 04/13/23 09:49 [facility] (Rec: 04/13/23 14:25 [facility] [id number]) Current Condition History of Current Condition Current Complaints XLIF L3-4 fused to L4-S1 prior fusion History of Current Condition 2/- has been doing rinses w/ steroid through nose and hearing better as she had moderate to severe hearing loss. She had L ear debrided but R ear was too full w/fluid . She is following w/ENT and seems them [facility]. Saw Primary yesterday. Some days she can hear out of R ear and soemtimes cannot. Reports she was told sinuses are a mess and will have to rinse sinuses daily. She sees online marketing coordinator soon too. She had mult visits to ER. It could still be affect of RA drug. She had a reaction last week where her eyes swelled and had to take steroid and benadryl and it cleared. Going ot stay on methyltrexate. She was unable to do exercises d/t pressure in her lungs. She had her xray recently keyanna SANDOVAL said looked good. She is having no back pain but only occ hip pain. She is still having R foot pain and she is thinking she will have surgery in the fall. The only reason she is using a walker is her foot now. She walks w/o the walker in the kitchen. 03/04-pt was in ICU for allergic reaction 1215-02/23 and only recently had improvement on 02/27. She has been on prednisone since and the half life is until tomorrow of the drug. She had breathing issues and welts on her body. She is still having a little trouble breathing w/ asthma. Back has been overall okay. She had one night she couldn't stop the R SI pain even w/percocet. She still has some surface numbness on the inside of her leg. IE:Pt had XLIF done (replaced disc w/bone and put a cage in per pt and came in from R ant) at L3-4 and that was connected to her prior L4-s1 fusion. Pt reports her SI and leg pain or R lat hip is improved since surgery. She is on no pain meds and has tylenol for pain right now. She still has problems on med foot and lower leg on R. Pt reports R foot is getting worse and is considering surgery and possibly another injection. She is using a 4WW d/t her R foot mostly as it is shooting pain from heel to lat foot. reports, pt teeters around the house and occasionally counter surfs in the kitchen. She feels a lot stronger already. pt concered about going back to a cane d/t R foot and is scared she will fall. Pt reprots she can get around to the end of the block and back w/o back pain but the foot limits her. She gets tired and a little sore sup to lat iliac crest. Treatment Goals Patient/Caregiver Goals Be able to get out and get exercise; be able to get back to the pool for exercise, be able to drive again, get strength back, improve gait; get back to use of cane PT-OP-C Subjective Start: 01/14/23 09:03 Freq: Status: Active Protocol: Document 05/11/23 09:04 [facility] (Rec: 05/11/23 10:08 [facility] [id number]) OP-PT Subjective Patient Comments Patient Comments pt reports after hurdles, she had a lot of pain. was able to use belt and has worked up to 15 min plus exercises. Pain better after last session PT-OP-E Functional Tests Start: 01/18/23 16:02 Freq: Status: Active Protocol: Document 05/11/23 09:04 [facility] (Rec: 05/11/23 10:08 [facility] [id number]) Functional Tests 6 Minute Walk Test Distance 899ft Device Used fww Comments typical R foot aching only 30 Second Sit to Stand Test Score 9 no UEs Comments harris chair Five Times Sit to Stand Test Score 16 sec no UEs Comments harris chair PT-OP-F Manual Assessment Start: 01/14/23 09:03 Freq: Status: Active Protocol: Document 01/18/23 14:37 [facility] (Rec: 01/18/23 16:02 [facility] [id number]) Manual Assessments Other Manual Assessments Other Manual Assessments Good healing of R lat scar and post scar-still some scabbing post PT-OP-G Mobility & Gait Start: 01/14/23 09:03 Freq: Status: Active Protocol: Document 03/04/23 09:04 [facility] (Rec: 03/04/23 09:50 [facility] [id number]) OP Gait Assessment Comments Gait Comments w/FWW w/slight fwd lean PT-OP-J Posture/Palpation/Skin Start: 01/14/23 09:03 Freq: Status: Active Protocol: Document 01/18/23 14:37 [facility] (Rec: 01/18/23 16:02 [facility] [id number]) Posture Evaluation Comments Posture Comments slight flexed position at hips still notable PT-OP-M Strength Start: 01/14/23 09:03 Freq: Status: Active Protocol: Document 04/13/23 09:49 [facility] (Rec: 04/13/23 14:25 [facility] [id number]) Hip Strength Hip Manual Muscle Testing Left Flexion (L2) 4- Good- Abduction 3+ Fair+ External Rotation 4- Good- Internal Rotation 5 Normal Right Flexion (L2) 4- Good- Abduction 3 Fair External Rotation 3+ Fair+ Internal Rotation 4 Good Knee Strength Knee Manual Muscle Testing Left Flexion (S2) 4+ Good+ Extension (L3) 4+ Good+ Right Flexion (S2) 4+ Good+ Extension (L3) 4+ Good+ Ankle/Foot Strength Ankle and Foot Manual Muscle Testing Right Dorsiflexion (L4) 4- Good- Plantarflexion (S1) 4 Good Inversion 3+ Fair+ Eversion (S1) 3+ Fair+ Left Dorsiflexion (L4) 4- Good- Plantarflexion (S1) 4 Good Inversion 3+ Fair+ Eversion (S1) 3+ Fair+ Comments PF tested seated B PT-OP-Q Treatments Start: 01/14/23 09:03 Freq: Status: Active Protocol: Document 05/11/23 09:04 [facility] (Rec: 05/11/23 10:08 [facility] [id number]) Gym Equipment Cable Column (Body Solid) Lat Pull Down Details cues for set up Resistance 2 Reps/Time 10 Hip Adduction Details pt set herself up w/min A and cues Resistance 2 Reps/Time 10 Hip Abduction Details pt set herself up w/min A and cues Resistance 2 Reps/Time 10 Therapeutic Exercises Sitting Exercises sit to stands Sitting Exercise Name no hands Reps/Minutes 30 sec Comments 9 reps Other Exercises 6min walk Reps/Minutes 899ft w/FWW Neuro Re-Education Treatment Balance Activities testing Comments ORDOÑEZ SLS trials B PT-OP-R Modalities Start: 01/14/23 09:03 Freq: Status: Active Protocol: Document 05/05/23 13:00 [facility] (Rec: 05/05/23 16:39 [facility] [id number]) Hot Pack/Cold Pack Treatment Hot Pack Location left thoracolumbar spine Patient Position Sidelying Patient Tolerance Good Comments folded towel under patient abdomen for support, less spinal strain Patient did ice at home requested trial heat at PT. PT-OP-T Assessment and Plan Start: 01/14/23 09:03 Freq: Status: Active Protocol: Document 05/11/23 09:04 [facility] (Rec: 05/11/23 10:08 [facility] [id number]) Physical Therapy Assessment Goals ORDOÑEZ Impairment 40/56 [place] Goal (LTG) Pt will improve ORDOÑEZ score to at least 50 to show safe for outdoor ambulation 05/10-48/56 LTG Duration 07/05 activity Short Term Goal (STG) Pt will be able to return to pool for 50% of workout without inc foot or back pain. 03/04 -has not returned /-has not been to the pool d /t med complications and sinus issues. STG Duration achieved 3/ Retirement Goal (LTG) Pt will be able to regularly do full pool work out, gentle strength/balance and walking w /o pain greater than 3/10 03/04-was walking around the block prior to allergic reaction and had one walk to library and back. Has walked aroud the block once. She walked 3 blocks once also 2/-one walk d/t sinus complications 05/10- can do full pool workout again, has walked less d/t weather- up to 2 blocks LTG Duration 07/05 gait Impairment 6 min walk w/4WW-565ft w/4WW - stopped after 4 min d/t R foot pain Short Term Goal (STG) Pt will be able to amb at least 800ft w/4WW and amb for full 6 min w/o significant inc of LBP or R foot pain. 03/04-n/t d/t asthma 03/09/23: 775 ft 6 min with FWW, no LBP, right foot pain 05/15 STG Duration achieved w/FWW Retirement Goal (LTG) Pt will be able to amb at least 900ft w/SPC in 6 min w/o significant inc of LBP or R foot pain. 04/13-hip pain and her typical foot pain 808ft w/FWW LTG Duration 07/05 balance Impairment . [place] Goal (LTG) Pt will show improved balance by ability to do SLS for at least 3 sec B 03/0403/09/23: not tested due to concern over right foot health 04/13-can lift but not balance 05/10-2 sec L; 1 sec R LTG Duration 07/05 One Impairment sit to stands (7.5 w/hands) Short Term Goal (STG) Pt will be able to do at least 2 sit to stands w/o use of hands from standard chair to show improved functional strength and dec risk for falls. 03/09/22: goal progress, dec use of UE's STG Duration achieved 04/13 [place] Goal (LTG) Pt will improve 30 sec sit to stand test to at least 10 to show improved strength and dec risk for falls accordign to age and gender related norms 04/28/23: able complete 5 reps without UE support, not timed. 05/10-9 LTG Duration 07/05 Assessment Summary Assessment Pt is making excellent progress w/therapy at this time. She is imprvoing towards her goals despite her backtracks in health d/t allergic reaction and getting sick. She is inc in her mobility and abilityt o do household and workout tasks. Cont PT to progress towards indep w/strengthening and stability and to dec fall risk . Physical Therapy Plan Frequency and Duration Frequency of Treatment 1-2x/Week Duration of treatment (weeks) 12 Plan of Care Start Date 04/13/23 Plan of Care End Date 07/06/23 Therapeutic Interventions Therapeutic Interventions Balance Training,Coordination Training,Gait Training,Home Exercise Program,Joint Mobilizations,Manual Therapy, Neuromuscular Re-education, Orthotic/Prosthetic Management ,Patient/Caregiver Education, Self-Care/Home Management,Soft Tissue Mobilization,Taping, Therapeutic Activities, Therapeutic Exercises Modalities Cold Pack/Ice Massage,Electric Stimulation,Hot Packs, Ultrasound Next Visit Focus/Plan Next Note Type Treatment Note Next Visit Plan cont to review exercises as needed; advance standing time as tolerated & work on cane stability
--- NOTE | 2023-05-17 15:21 | PT.OTN ---
Current Diagnoses Pain in right ankle and joints of right foot (05/17/23) Spinal stenosis, lumbar region with neurogenic claudication (05/17/23) Radiculopathy, lumbar region (05/17/23) Difficulty in walking, not elsewhere classified (05/17/23) Unsteadiness on feet (05/17/23) Abnormal posture (05/17/23) Weakness (05/17/23) Arthrodesis status (05/17/23) Physical Therapy Treatment Note PT-OP-A Visit Information Start: 01/14/23 09:03 Freq: Status: Active Protocol: Document 05/17/23 14:39 [facility] (Rec: 05/17/23 15:21 [facility] [id number]) Out-Patient Physical Therapy Visit Information Visit Information Visit Type Treatment Note Visit Note 04/17 Visit Start Time 14:38 Visit Stop Time 15:16 Visit Number 21 Number of MANAGER REGISTRATION Visits 0 PT-OP-B Current Condition Start: 01/14/23 09:03 Freq: Status: Active Protocol: Document 04/13/23 09:49 [facility] (Rec: 04/13/23 14:25 [facility] [id number]) Current Condition History of Current Condition Current Complaints XLIF L3-4 fused to L4-S1 prior fusion History of Current Condition /- has been doing rinses w/ steroid through nose and hearing better as she had moderate to severe hearing loss. She had L ear debrided but R ear was too full w/fluid . She is following w/ENT and seems them Wednesday. Saw Primary yesterday. Some days she can hear out of R ear and soemtimes cannot. Reports she was told sinuses are a mess and will have to rinse sinuses daily. She sees crm marketing executive soon too. She had mult visits to ER. It could still be affect of RA drug. She had a reaction last week where her eyes swelled and had to take steroid and benadryl and it cleared. Going ot stay on methyltrexate. She was unable to do exercises d/t pressure in her lungs. She had her xray recently keyanna SANDOVAL said looked good. She is having no back pain but only occ hip pain. She is still having R foot pain and she is thinking she will have surgery in the fall. The only reason she is using a walker is her foot now. She walks w/o the walker in the kitchen. 03/04-pt was in ICU for allergic reaction 1215-02/23 and only recently had improvement on 02/27. She has been on prednisone since and the half life is until tomorrow of the drug. She had breathing issues and welts on her body. She is still having a little trouble breathing w/ asthma. Back has been overall okay. She had one night she couldn't stop the R SI pain even w/percocet. She still has some surface numbness on the inside of her leg. IE:Pt had XLIF done (replaced disc w/bone and put a cage in per pt and came in from R ant) at L3-4 and that was connected to her prior L4-s1 fusion. Pt reports her SI and leg pain or R lat hip is improved since surgery. She is on no pain meds and has tylenol for pain right now. She still has problems on med foot and lower leg on R. Pt reports R foot is getting worse and is considering surgery and possibly another injection. She is using a 4WW d/t her R foot mostly as it is shooting pain from heel to lat foot. reports, pt teeters around the house and occasionally counter surfs in the kitchen. She feels a lot stronger already. pt concered about going back to a cane d/t R foot and is scared she will fall. Pt reprots she can get around to the end of the block and back w/o back pain but the foot limits her. She gets tired and a little sore sup to lat iliac crest. Treatment Goals Patient/Caregiver Goals Be able to get out and get exercise; be able to get back to the pool for exercise, be able to drive again, get strength back, improve gait; get back to use of cane PT-OP-C Subjective Start: 01/14/23 09:03 Freq: Status: Active Protocol: Document 05/17/23 14:39 [facility] (Rec: 05/17/23 15:21 [facility] [id number]) OP-PT Subjective Patient Comments Patient Comments Pt reports surgeon cleared her of everything but to go slow. Back has been fine. She did 45 min this AM at pool. stepper was taken so unable to try it. PT-OP-E Functional Tests Start: 01/18/23 16:02 Freq: Status: Active Protocol: Document 05/11/23 09:04 [facility] (Rec: 05/11/23 10:08 [facility] [id number]) Functional Tests 6 Minute Walk Test Distance 899ft Device Used fww Comments typical R foot aching only 30 Second Sit to Stand Test Score 9 no UEs Comments harris chair Five Times Sit to Stand Test Score 16 sec no UEs Comments harris chair PT-OP-F Manual Assessment Start: 01/14/23 09:03 Freq: Status: Active Protocol: Document 01/18/23 14:37 [facility] (Rec: 01/18/23 16:02 [facility] [id number]) Manual Assessments Other Manual Assessments Other Manual Assessments Good healing of R lat scar and post scar-still some scabbing post PT-OP-G Mobility & Gait Start: 01/14/23 09:03 Freq: Status: Active Protocol: Document 03/04/23 09:04 [facility] (Rec: 03/04/23 09:50 [facility] [id number]) OP Gait Assessment Comments Gait Comments w/FWW w/slight fwd lean PT-OP-J Posture/Palpation/Skin Start: 01/14/23 09:03 Freq: Status: Active Protocol: Document 01/18/23 14:37 [facility] (Rec: 01/18/23 16:02 [facility] [id number]) Posture Evaluation Comments Posture Comments slight flexed position at hips still notable PT-OP-M Strength Start: 01/14/23 09:03 Freq: Status: Active Protocol: Document 04/13/23 09:49 [facility] (Rec: 04/13/23 14:25 [facility] [id number]) Hip Strength Hip Manual Muscle Testing Left Flexion (L2) 4- Good- Abduction 3+ Fair+ External Rotation 4- Good- Internal Rotation 5 Normal Right Flexion (L2) 4- Good- Abduction 3 Fair External Rotation 3+ Fair+ Internal Rotation 4 Good Knee Strength Knee Manual Muscle Testing Left Flexion (S2) 4+ Good+ Extension (L3) 4+ Good+ Right Flexion (S2) 4+ Good+ Extension (L3) 4+ Good+ Ankle/Foot Strength Ankle and Foot Manual Muscle Testing Right Dorsiflexion (L4) 4- Good- Plantarflexion (S1) 4 Good Inversion 3+ Fair+ Eversion (S1) 3+ Fair+ Left Dorsiflexion (L4) 4- Good- Plantarflexion (S1) 4 Good Inversion 3+ Fair+ Eversion (S1) 3+ Fair+ Comments PF tested seated B PT-OP-Q Treatments Start: 01/14/23 09:03 Freq: Status: Active Protocol: Document 05/17/23 14:39 [facility] (Rec: 05/17/23 15:21 [facility] [id number]) Therapeutic Exercises Sitting Exercises ankle Sitting Exercise Name 1. inversion 2. eversion Side right Equipment Used L2 Reps/Minutes 15 ea PF/DF Side bilateral Equipment Used L2 Reps/Minutes 15 ea Core Sitting Exercise Name sit backs Reps/Minutes 10 Comments cues for hip hinge sit to stands Sitting Exercise Name no hands Reps/Minutes 3x5 Neuro Re-Education Treatment Balance Activities cones Details zig zag through cones Equipment SPC Reps/Duration 2x30ft Comments (10 cones) head turns Equipment SPC Comments 1. horizontal 2x40ft 3. vertical 2x50ft foam Comments march on harris foam x10 B wt shift Reps/Duration 2x12 B Comments fwd in staggered stance w/cues for neutral spine Self-Care/Home Management Treatment Education Other Education 8 min: discussion to follow up re: AFO w/nurse midwife in order to help improve stability. edu to keep gradual w/inc gym program PT-OP-R Modalities Start: 01/14/23 09:03 Freq: Status: Active Protocol: Document 05/05/23 13:00 [facility] (Rec: 05/05/23 16:39 [facility] [id number]) Hot Pack/Cold Pack Treatment Hot Pack Location left thoracolumbar spine Patient Position Sidelying Patient Tolerance Good Comments folded towel under patient abdomen for support, less spinal strain Patient did ice at home requested trial heat at PT. PT-OP-T Assessment and Plan Start: 01/14/23 09:03 Freq: Status: Active Protocol: Document 05/17/23 14:39 [facility] (Rec: 05/17/23 15:21 [facility] [id number]) Physical Therapy Assessment Goals ORDOÑEZ Impairment 40/56 Fishing Tool Supervisor Goal (LTG) Pt will improve ORDOÑEZ score to at least 50 to show safe for outdoor ambulation 05/10-48/56 LTG Duration 430 activity Short Term Goal (STG) Pt will be able to return to pool for 50% of workout without inc foot or back pain. 03/04 -has not returned 2/6-has not been to the pool d /t med complications and sinus issues. STG Duration achieved 05/10 Usp Goal (LTG) Pt will be able to regularly do full pool work out, gentle strength/balance and walking w /o pain greater than 3/10 03/04-was walking around the block prior to allergic reaction and had one walk to library and back. Has walked aroud the block once. She walked 3 blocks once also 04/13-one walk d/t sinus complications 05/10- can do full pool workout again, has walked less d/t weather- up to 2 blocks LTG Duration 07/05 gait Impairment 6 min walk w/4WW-565ft w/4WW - stopped after 4 min d/t R foot pain Short Term Goal (STG) Pt will be able to amb at least 800ft w/4WW and amb for full 6 min w/o significant inc of LBP or R foot pain. 03/04-n/t d/t asthma 03/09/23: 775 ft 6 min with FWW, no LBP, right foot pain 05/15 STG Duration achieved w/FWW Usp Goal (LTG) Pt will be able to amb at least 900ft w/SPC in 6 min w/o significant inc of LBP or R foot pain. 04/13-hip pain and her typical foot pain 808ft w/FWW LTG Duration 07/05 balance Impairment . Usp Goal (LTG) Pt will show improved balance by ability to do SLS for at least 3 sec B 03/0403/09/23: not tested due to concern over right foot health 04/13-can lift but not balance 05/10-2 sec L; 1 sec R LTG Duration 07/05 One Impairment sit to stands (7.5 w/hands) Short Term Goal (STG) Pt will be able to do at least 2 sit to stands w/o use of hands from standard chair to show improved functional strength and dec risk for falls. 03/09/22: goal progress, dec use of UE's STG Duration achieved 04/13 Fishing Tool Supervisor Goal (LTG) Pt will improve 30 sec sit to stand test to at least 10 to show improved strength and dec risk for falls accordign to age and gender related norms 2/21/24: able complete 5 reps without UE support, not timed. 05/10-9 LTG Duration 07/05 Assessment Summary Assessment Pt did well with balance but did struggle with wt shifts and required a lot of cues. She does get SOB w/inc activity Physical Therapy Plan Frequency and Duration Frequency of Treatment 1-2x/Week Duration of treatment (weeks) 12 Plan of Care Start Date 04/13/23 Plan of Care End Date 07/06/23 Next Visit Focus/Plan Next Note Type Treatment Note Next Visit Plan cont to review exercises as needed; advance standing time as tolerated & work on cane stability
--- NOTE | 2023-05-26 11:19 | PT.OTN ---
Current Diagnoses Pain in right ankle and joints of right foot (05/26/23) Spinal stenosis, lumbar region with neurogenic claudication (05/26/23) Radiculopathy, lumbar region (05/26/23) Difficulty in walking, not elsewhere classified (05/26/23) Unsteadiness on feet (05/26/23) Abnormal posture (05/26/23) Weakness (05/26/23) Arthrodesis status (05/26/23) Physical Therapy Treatment Note PT-OP-A Visit Information Start: 01/14/23 09:03 Freq: Status: Active Protocol: Document 05/26/23 10:33 [facility] (Rec: 05/26/23 11:19 [facility] [id number]) Out-Patient Physical Therapy Visit Information Visit Information Visit Type Treatment Note Visit Note 05/15 Visit Start Time 10:35 Visit Stop Time 11:15 Visit Number 22 Number of EXECUTIVE RELATIONS SPECIALIST Visits 0 PT-OP-B Current Condition Start: 01/14/23 09:03 Freq: Status: Active Protocol: Document 04/13/23 09:49 [facility] (Rec: 04/13/23 14:25 [facility] [id number]) Current Condition History of Current Condition Current Complaints XLIF L3-4 fused to L4-S1 prior fusion History of Current Condition 2/- has been doing rinses w/ steroid through nose and hearing better as she had moderate to severe hearing loss. She had L ear debrided but R ear was too full w/fluid . She is following w/ENT and seems them Wednesday. Saw Primary yesterday. Some days she can hear out of R ear and soemtimes cannot. Reports she was told sinuses are a mess and will have to rinse sinuses daily. She sees supervisor title soon too. She had mult visits to ER. It could still be affect of RA drug. She had a reaction last week where her eyes swelled and had to take steroid and benadryl and it cleared. Going ot stay on methyltrexate. She was unable to do exercises d/t pressure in her lungs. She had her xray recently keyanna SANDOVAL said looked good. She is having no back pain but only occ hip pain. She is still having R foot pain and she is thinking she will have surgery in the fall. The only reason she is using a walker is her foot now. She walks w/o the walker in the kitchen. 03/04-pt was in ICU for allergic reaction 1215-02/23 and only recently had improvement on 02/27. She has been on prednisone since and the half life is until tomorrow of the drug. She had breathing issues and welts on her body. She is still having a little trouble breathing w/ asthma. Back has been overall okay. She had one night she couldn't stop the R SI pain even w/percocet. She still has some surface numbness on the inside of her leg. IE:Pt had XLIF done (replaced disc w/bone and put a cage in per pt and came in from R ant) at L3-4 and that was connected to her prior L4-s1 fusion. Pt reports her SI and leg pain or R lat hip is improved since surgery. She is on no pain meds and has tylenol for pain right now. She still has problems on med foot and lower leg on R. Pt reports R foot is getting worse and is considering surgery and possibly another injection. She is using a 4WW d/t her R foot mostly as it is shooting pain from heel to lat foot. reports, pt teeters around the house and occasionally counter surfs in the kitchen. She feels a lot stronger already. pt concered about going back to a cane d/t R foot and is scared she will fall. Pt reprots she can get around to the end of the block and back w/o back pain but the foot limits her. She gets tired and a little sore sup to lat iliac crest. Treatment Goals Patient/Caregiver Goals Be able to get out and get exercise; be able to get back to the pool for exercise, be able to drive again, get strength back, improve gait; get back to use of cane PT-OP-C Subjective Start: 01/14/23 09:03 Freq: Status: Active Protocol: Document 05/26/23 10:33 [facility] (Rec: 05/26/23 11:19 [facility] [id number]) OP-PT Subjective Patient Comments Patient Comments Pt reports she sees a pulmonolgist next week. Notes she got her AFO adjusted PT-OP-E Functional Tests Start: 01/18/23 16:02 Freq: Status: Active Protocol: Document 05/11/23 09:04 [facility] (Rec: 05/11/23 10:08 [facility] [id number]) Functional Tests 6 Minute Walk Test Distance 899ft Device Used fww Comments typical R foot aching only 30 Second Sit to Stand Test Score 9 no UEs Comments harris chair Five Times Sit to Stand Test Score 16 sec no UEs Comments harris chair PT-OP-F Manual Assessment Start: 01/14/23 09:03 Freq: Status: Active Protocol: Document 01/18/23 14:37 [facility] (Rec: 01/18/23 16:02 [facility] [id number]) Manual Assessments Other Manual Assessments Other Manual Assessments Good healing of R lat scar and post scar-still some scabbing post PT-OP-G Mobility & Gait Start: 01/14/23 09:03 Freq: Status: Active Protocol: Document 03/04/23 09:04 [facility] (Rec: 03/04/23 09:50 [facility] [id number]) OP Gait Assessment Comments Gait Comments w/FWW w/slight fwd lean PT-OP-J Posture/Palpation/Skin Start: 01/14/23 09:03 Freq: Status: Active Protocol: Document 01/18/23 14:37 [facility] (Rec: 01/18/23 16:02 [facility] [id number]) Posture Evaluation Comments Posture Comments slight flexed position at hips still notable PT-OP-M Strength Start: 01/14/23 09:03 Freq: Status: Active Protocol: Document 04/13/23 09:49 [facility] (Rec: 04/13/23 14:25 [facility] [id number]) Hip Strength Hip Manual Muscle Testing Left Flexion (L2) 4- Good- Abduction 3+ Fair+ External Rotation 4- Good- Internal Rotation 5 Normal Right Flexion (L2) 4- Good- Abduction 3 Fair External Rotation 3+ Fair+ Internal Rotation 4 Good Knee Strength Knee Manual Muscle Testing Left Flexion (S2) 4+ Good+ Extension (L3) 4+ Good+ Right Flexion (S2) 4+ Good+ Extension (L3) 4+ Good+ Ankle/Foot Strength Ankle and Foot Manual Muscle Testing Right Dorsiflexion (L4) 4- Good- Plantarflexion (S1) 4 Good Inversion 3+ Fair+ Eversion (S1) 3+ Fair+ Left Dorsiflexion (L4) 4- Good- Plantarflexion (S1) 4 Good Inversion 3+ Fair+ Eversion (S1) 3+ Fair+ Comments PF tested seated B PT-OP-Q Treatments Start: 01/14/23 09:03 Freq: Status: Active Protocol: Document 05/26/23 10:33 [facility] (Rec: 05/26/23 11:19 [facility] [id number]) Gym Equipment Sport Cord sidestep Cord/Resistance yellow Reps/Duration 4x B fwd walk Cord/Resistance yellow Reps/Duration 8x Therapeutic Exercises Sitting Exercises PF/DF Sitting Exercise Name 1.AROM DF 2. DF toes Side bilateral Reps/Minutes 30 ea seated crunch Reps/Minutes 10x Comments sit backs w/max cues to neutral spine Neuro Re-Education Treatment Balance Activities cones Details zig zag through cones Equipment SPC Reps/Duration 4x30ft Comments (10 cones) head turns Equipment SPC Comments 1. horizontal 2x50ft 3. vertical 2x50ft hurdles Details 6 hurdles turned on side Surface firm Reps/Duration 6x Comments recip over fwd Other Activities facilitation Reps/Duration 4 min Comments R glute w/manual traction to RLE seated PT-OP-R Modalities Start: 01/14/23 09:03 Freq: Status: Active Protocol: Document 05/05/23 13:00 [facility] (Rec: 05/05/23 16:39 [facility] [id number]) Hot Pack/Cold Pack Treatment Hot Pack Location left thoracolumbar spine Patient Position Sidelying Patient Tolerance Good Comments folded towel under patient abdomen for support, less spinal strain Patient did ice at home requested trial heat at PT. PT-OP-T Assessment and Plan Start: 01/14/23 09:03 Freq: Status: Active Protocol: Document 05/26/23 10:33 [facility] (Rec: 05/26/23 11:19 [facility] [id number]) Physical Therapy Assessment Goals ORDOÑEZ Impairment 40/56 Halfway Goal (LTG) Pt will improve ORDOÑEZ score to at least 50 to show safe for outdoor ambulation 05/10-48 LTG Duration 430 activity Short Term Goal (STG) Pt will be able to return to pool for 50% of workout without inc foot or back pain. 03/04 -has not returned 2/-has not been to the pool d /t med complications and sinus issues. STG Duration achieved 3/ Halfway Goal (LTG) Pt will be able to regularly do full pool work out, gentle strength/balance and walking w /o pain greater than 3/10 03/04-was walking around the block prior to allergic reaction and had one walk to library and back. Has walked aroud the block once. She walked 3 blocks once also /6-one walk d/t sinus complications 05/10- can do full pool workout again, has walked less d/t weather- up to 2 blocks LTG Duration 07/05 gait Impairment 6 min walk w/4WW-565ft w/4WW - stopped after 4 min d/t R foot pain Short Term Goal (STG) Pt will be able to amb at least 800ft w/4WW and amb for full 6 min w/o significant inc of LBP or R foot pain. 03/04-n/t d/t asthma 03/09/23: 775 ft 6 min with FWW, no LBP, right foot pain 05/15 STG Duration achieved w/FWW Halfway Goal (LTG) Pt will be able to amb at least 900ft w/SPC in 6 min w/o significant inc of LBP or R foot pain. 04/13-hip pain and her typical foot pain 808ft w/FWW LTG Duration 07/05 balance Impairment . Halfway Goal (LTG) Pt will show improved balance by ability to do SLS for at least 3 sec B 03/0403/09/23: not tested due to concern over right foot health 04/13-can lift but not balance 05/10-2 sec L; 1 sec R LTG Duration 07/05 One Impairment sit to stands (7.5 w/hands) Short Term Goal (STG) Pt will be able to do at least 2 sit to stands w/o use of hands from standard chair to show improved functional strength and dec risk for falls. 03/09/22: goal progress, dec use of UE's STG Duration achieved 04/13 Halfway Goal (LTG) Pt will improve 30 sec sit to stand test to at least 10 to show improved strength and dec risk for falls accordign to age and gender related norms 04/28/23: able complete 5 reps without UE support, not timed. 05/10-9 LTG Duration 07/05 Assessment Summary Assessment w/use of brace today, pt noted pressure into foot but no sig inc in foot pain than normal foot pain. Lat lower leg pain towards the end of standing activities. Physical Therapy Plan Frequency and Duration Frequency of Treatment 1-2x/Week Duration of treatment (weeks) 12 Plan of Care Start Date 04/13/23 Plan of Care End Date 07/06/23 Next Visit Focus/Plan Next Note Type Treatment Note Next Visit Plan cont to review exercises as needed; advance standing time as tolerated & work on cane stability
--- NOTE | 2023-05-31 09:47 | PT.OTN ---
Current Diagnoses Pain in right ankle and joints of right foot (05/31/23) Spinal stenosis, lumbar region with neurogenic claudication (05/31/23) Radiculopathy, lumbar region (05/31/23) Difficulty in walking, not elsewhere classified (05/31/23) Unsteadiness on feet (05/31/23) Abnormal posture (05/31/23) Weakness (05/31/23) Arthrodesis status (05/31/23) Physical Therapy Treatment Note PT-OP-A Visit Information Start: 01/14/23 09:03 Freq: Status: Active Protocol: Document 05/31/23 09:26 [facility] (Rec: 05/31/23 09:47 [facility] [id number]) Out-Patient Physical Therapy Visit Information Visit Information Visit Type Treatment Note Visit Note 06/15 Visit Start Time 09:08 Visit Stop Time 09:47 Visit Number 23 Number of MANAGER DEVELOPMENT Visits 0 PT-OP-B Current Condition Start: 01/14/23 09:03 Freq: Status: Active Protocol: Document 04/13/23 09:49 [facility] (Rec: 04/13/23 14:25 [facility] [id number]) Current Condition History of Current Condition Current Complaints XLIF L3-4 fused to L4-S1 prior fusion History of Current Condition 2/- has been doing rinses w/ steroid through nose and hearing better as she had moderate to severe hearing loss. She had L ear debrided but R ear was too full w/fluid . She is following w/ENT and seems them Wednesday. Saw Primary yesterday. Some days she can hear out of R ear and soemtimes cannot. Reports she was told sinuses are a mess and will have to rinse sinuses daily. She sees owner consulting engineer soon too. She had mult visits to ER. It could still be affect of RA drug. She had a reaction last week where her eyes swelled and had to take steroid and benadryl and it cleared. Going ot stay on methyltrexate. She was unable to do exercises d/t pressure in her lungs. She had her xray recently keyanna SANDOVAL said looked good. She is having no back pain but only occ hip pain. She is still having R foot pain and she is thinking she will have surgery in the fall. The only reason she is using a walker is her foot now. She walks w/o the walker in the kitchen. 03/04-pt was in ICU for allergic reaction 1215-02/23 and only recently had improvement on 02/27. She has been on prednisone since and the half life is until tomorrow of the drug. She had breathing issues and welts on her body. She is still having a little trouble breathing w/ asthma. Back has been overall okay. She had one night she couldn't stop the R SI pain even w/percocet. She still has some surface numbness on the inside of her leg. IE:Pt had XLIF done (replaced disc w/bone and put a cage in per pt and came in from R ant) at L3-4 and that was connected to her prior L4-s1 fusion. Pt reports her SI and leg pain or R lat hip is improved since surgery. She is on no pain meds and has tylenol for pain right now. She still has problems on med foot and lower leg on R. Pt reports R foot is getting worse and is considering surgery and possibly another injection. She is using a 4WW d/t her R foot mostly as it is shooting pain from heel to lat foot. reports, pt teeters around the house and occasionally counter surfs in the kitchen. She feels a lot stronger already. pt concered about going back to a cane d/t R foot and is scared she will fall. Pt reprots she can get around to the end of the block and back w/o back pain but the foot limits her. She gets tired and a little sore sup to lat iliac crest. Treatment Goals Patient/Caregiver Goals Be able to get out and get exercise; be able to get back to the pool for exercise, be able to drive again, get strength back, improve gait; get back to use of cane PT-OP-C Subjective Start: 01/14/23 09:03 Freq: Status: Active Protocol: Document 05/31/23 09:26 [facility] (Rec: 05/31/23 09:47 [facility] [id number]) OP-PT Subjective Patient Comments Patient Comments Pt reports she was exhausted last night after doing pool and walk and went right to bed . PT-OP-E Functional Tests Start: 01/18/23 16:02 Freq: Status: Active Protocol: Document 05/11/23 09:04 [facility] (Rec: 05/11/23 10:08 [facility] [id number]) Functional Tests 6 Minute Walk Test Distance 899ft Device Used fww Comments typical R foot aching only 30 Second Sit to Stand Test Score 9 no UEs Comments harris chair Five Times Sit to Stand Test Score 16 sec no UEs Comments harris chair PT-OP-F Manual Assessment Start: 01/14/23 09:03 Freq: Status: Active Protocol: Document 01/18/23 14:37 [facility] (Rec: 01/18/23 16:02 [facility] [id number]) Manual Assessments Other Manual Assessments Other Manual Assessments Good healing of R lat scar and post scar-still some scabbing post PT-OP-G Mobility & Gait Start: 01/14/23 09:03 Freq: Status: Active Protocol: Document 03/04/23 09:04 [facility] (Rec: 03/04/23 09:50 [facility] [id number]) OP Gait Assessment Comments Gait Comments w/FWW w/slight fwd lean PT-OP-J Posture/Palpation/Skin Start: 01/14/23 09:03 Freq: Status: Active Protocol: Document 01/18/23 14:37 [facility] (Rec: 01/18/23 16:02 [facility] [id number]) Posture Evaluation Comments Posture Comments slight flexed position at hips still notable PT-OP-M Strength Start: 01/14/23 09:03 Freq: Status: Active Protocol: Document 04/13/23 09:49 [facility] (Rec: 04/13/23 14:25 [facility] [id number]) Hip Strength Hip Manual Muscle Testing Left Flexion (L2) 4- Good- Abduction 3+ Fair+ External Rotation 4- Good- Internal Rotation 5 Normal Right Flexion (L2) 4- Good- Abduction 3 Fair External Rotation 3+ Fair+ Internal Rotation 4 Good Knee Strength Knee Manual Muscle Testing Left Flexion (S2) 4+ Good+ Extension (L3) 4+ Good+ Right Flexion (S2) 4+ Good+ Extension (L3) 4+ Good+ Ankle/Foot Strength Ankle and Foot Manual Muscle Testing Right Dorsiflexion (L4) 4- Good- Plantarflexion (S1) 4 Good Inversion 3+ Fair+ Eversion (S1) 3+ Fair+ Left Dorsiflexion (L4) 4- Good- Plantarflexion (S1) 4 Good Inversion 3+ Fair+ Eversion (S1) 3+ Fair+ Comments PF tested seated B PT-OP-Q Treatments Start: 01/14/23 09:03 Freq: Status: Active Protocol: Document 05/31/23 09:26 [facility] (Rec: 05/31/23 09:47 [facility] [id number]) Therapeutic Exercises Sitting Exercises breathing Sitting Exercise Name diaphragmatic Side bilateral Reps/Minutes 10 Comments cues for hand on belly to breathing full breath Core Sitting Exercise Name march Side bilateral Reps/Minutes 15 ea Comments core and posture cues hip abd Sitting Exercise Name SL Side bilateral Equipment Used L3 Reps/Minutes 15 Neuro Re-Education Treatment Balance Activities EC Reps/Duration 50 ft ea Comments fwd/back walk cones Details zig zag through cones Equipment SPC Reps/Duration 4x30ft Comments (10 cones) head turns Equipment SPC Comments 1. horizontal 2x50ft 3. vertical 2x50ft hurdles Details 6 hurdles turned on side Surface firm Comments 1.recip over fwd 6x w/SPC 2. lat step w/cane and finger on rail x2 B PT-OP-R Modalities Start: 01/14/23 09:03 Freq: Status: Active Protocol: Document 05/05/23 13:00 [facility] (Rec: 05/05/23 16:39 [facility] [id number]) Hot Pack/Cold Pack Treatment Hot Pack Location left thoracolumbar spine Patient Position Sidelying Patient Tolerance Good Comments folded towel under patient abdomen for support, less spinal strain Patient did ice at home requested trial heat at PT. PT-OP-T Assessment and Plan Start: 01/14/23 09:03 Freq: Status: Active Protocol: Document 05/31/23 09:26 [facility] (Rec: 05/31/23 09:47 [facility] [id number]) Physical Therapy Assessment Goals ORDOÑEZ Impairment 40/56 Snf Goal (LTG) Pt will improve ORDOÑEZ score to at least 50 to show safe for outdoor ambulation 05/10-48 LTG Duration 430 activity Short Term Goal (STG) Pt will be able to return to pool for 50% of workout without inc foot or back pain. 03/04 -has not returned 2/6-has not been to the pool d /t med complications and sinus issues. STG Duration achieved 3/5 Snf Goal (LTG) Pt will be able to regularly do full pool work out, gentle strength/balance and walking w /o pain greater than 3/10 03/04-was walking around the block prior to allergic reaction and had one walk to library and back. Has walked aroud the block once. She walked 3 blocks once also /-one walk d/t sinus complications 05/10- can do full pool workout again, has walked less d/t weather- up to 2 blocks LTG Duration 07/05 gait Impairment 6 min walk w/4WW-565ft w/4WW - stopped after 4 min d/t R foot pain Short Term Goal (STG) Pt will be able to amb at least 800ft w/4WW and amb for full 6 min w/o significant inc of LBP or R foot pain. 03/04-n/t d/t asthma 03/09/23: 775 ft 6 min with FWW, no LBP, right foot pain 05/15 STG Duration achieved w/FWW Snf Goal (LTG) Pt will be able to amb at least 900ft w/SPC in 6 min w/o significant inc of LBP or R foot pain. 04/13-hip pain and her typical foot pain 808ft w/FWW LTG Duration 07/05 balance Impairment . Electrician Shop Goal (LTG) Pt will show improved balance by ability to do SLS for at least 3 sec B 03/0403/09/23: not tested due to concern over right foot health 04/13-can lift but not balance 05/10-2 sec L; 1 sec R LTG Duration 07/05 One Impairment sit to stands (7.5 w/hands) Short Term Goal (STG) Pt will be able to do at least 2 sit to stands w/o use of hands from standard chair to show improved functional strength and dec risk for falls. 03/09/22: goal progress, dec use of UE's STG Duration achieved 04/13 [employer] Goal (LTG) Pt will improve 30 sec sit to stand test to at least 10 to show improved strength and dec risk for falls accordign to age and gender related norms 04/28/23: able complete 5 reps without UE support, not timed. 05/10-9 LTG Duration 07/05 Assessment Summary Assessment BP 129/71 after exercise. She is doing well with balance tasks w/cane w/occ LOB w/ hurdles and EC activity. Does have mild deviations w/head turns. SOB throughout Physical Therapy Plan Frequency and Duration Frequency of Treatment 1-2x/Week Duration of treatment (weeks) 12 Plan of Care Start Date 04/13/23 Plan of Care End Date 07/06/23 Next Visit Focus/Plan Next Note Type Treatment Note Next Visit Plan cont to review exercises as needed; advance standing time as tolerated & work on cane stability
--- NOTE | 2023-06-02 10:38 | PT.OTN ---
Current Diagnoses Pain in right ankle and joints of right foot (06/02/23) Spinal stenosis, lumbar region with neurogenic claudication (06/02/23) Radiculopathy, lumbar region (06/02/23) Difficulty in walking, not elsewhere classified (06/02/23) Unsteadiness on feet (06/02/23) Abnormal posture (06/02/23) Weakness (06/02/23) Arthrodesis status (06/02/23) Physical Therapy Treatment Note PT-OP-A Visit Information Start: 01/14/23 09:03 Freq: Status: Active Protocol: Document 06/02/23 09:54 [facility] (Rec: 06/02/23 10:38 [facility] [id number]) Out-Patient Physical Therapy Visit Information Visit Information Visit Type Treatment Note Visit Note 07/15 Visit Start Time 09:53 Visit Stop Time 10:31 Visit Number 24 Number of VESSEL MANAGER Visits 0 PT-OP-B Current Condition Start: 01/14/23 09:03 Freq: Status: Active Protocol: Document 04/13/23 09:49 [facility] (Rec: 04/13/23 14:25 [facility] [id number]) Current Condition History of Current Condition Current Complaints XLIF L3-4 fused to L4-S1 prior fusion History of Current Condition 2/- has been doing rinses w/ steroid through nose and hearing better as she had moderate to severe hearing loss. She had L ear debrided but R ear was too full w/fluid . She is following w/ENT and seems them Wednesday. Saw Primary yesterday. Some days she can hear out of R ear and soemtimes cannot. Reports she was told sinuses are a mess and will have to rinse sinuses daily. She sees second facing baster soon too. She had mult visits to ER. It could still be affect of RA drug. She had a reaction last week where her eyes swelled and had to take steroid and benadryl and it cleared. Going ot stay on methyltrexate. She was unable to do exercises d/t pressure in her lungs. She had her xray recently keyanna SANDOVAL said looked good. She is having no back pain but only occ hip pain. She is still having R foot pain and she is thinking she will have surgery in the fall. The only reason she is using a walker is her foot now. She walks w/o the walker in the kitchen. 03/04-pt was in ICU for allergic reaction 1215-02/23 and only recently had improvement on 02/27. She has been on prednisone since and the half life is until tomorrow of the drug. She had breathing issues and welts on her body. She is still having a little trouble breathing w/ asthma. Back has been overall okay. She had one night she couldn't stop the R SI pain even w/percocet. She still has some surface numbness on the inside of her leg. IE:Pt had XLIF done (replaced disc w/bone and put a cage in per pt and came in from R ant) at L3-4 and that was connected to her prior L4-s1 fusion. Pt reports her SI and leg pain or R lat hip is improved since surgery. She is on no pain meds and has tylenol for pain right now. She still has problems on med foot and lower leg on R. Pt reports R foot is getting worse and is considering surgery and possibly another injection. She is using a 4WW d/t her R foot mostly as it is shooting pain from heel to lat foot. reports, pt teeters around the house and occasionally counter surfs in the kitchen. She feels a lot stronger already. pt concered about going back to a cane d/t R foot and is scared she will fall. Pt reprots she can get around to the end of the block and back w/o back pain but the foot limits her. She gets tired and a little sore sup to lat iliac crest. Treatment Goals Patient/Caregiver Goals Be able to get out and get exercise; be able to get back to the pool for exercise, be able to drive again, get strength back, improve gait; get back to use of cane PT-OP-C Subjective Start: 01/14/23 09:03 Freq: Status: Active Protocol: Document 06/02/23 09:54 [facility] (Rec: 06/02/23 10:38 [facility] [id number]) OP-PT Subjective Patient Comments Patient Comments Pt reports yesterday [place] [employer] [place] [employer] and had to go to [employer]. She used her 4WW. She got home at 2 pm and had to take off brace d/t pain wher top strap presses. Some sorenss on lat in abdomen after last session. PT-OP-E Functional Tests Start: 01/18/23 16:02 Freq: Status: Active Protocol: Document 05/11/23 09:04 [facility] (Rec: 05/11/23 10:08 [facility] [id number]) Functional Tests 6 Minute Walk Test Distance 899ft Device Used fww Comments typical R foot aching only 30 Second Sit to Stand Test Score 9 no UEs Comments harris chair Five Times Sit to Stand Test Score 16 sec no UEs Comments harris chair PT-OP-F Manual Assessment Start: 01/14/23 09:03 Freq: Status: Active Protocol: Document 01/18/23 14:37 [facility] (Rec: 01/18/23 16:02 [facility] [id number]) Manual Assessments Other Manual Assessments Other Manual Assessments Good healing of R lat scar and post scar-still some scabbing post PT-OP-G Mobility & Gait Start: 01/14/23 09:03 Freq: Status: Active Protocol: Document 03/04/23 09:04 [facility] (Rec: 03/04/23 09:50 [facility] [id number]) OP Gait Assessment Comments Gait Comments w/FWW w/slight fwd lean PT-OP-J Posture/Palpation/Skin Start: 01/14/23 09:03 Freq: Status: Active Protocol: Document 01/18/23 14:37 [facility] (Rec: 01/18/23 16:02 [facility] [id number]) Posture Evaluation Comments Posture Comments slight flexed position at hips still notable PT-OP-M Strength Start: 01/14/23 09:03 Freq: Status: Active Protocol: Document 04/13/23 09:49 [facility] (Rec: 04/13/23 14:25 [facility] [id number]) Hip Strength Hip Manual Muscle Testing Left Flexion (L2) 4- Good- Abduction 3+ Fair+ External Rotation 4- Good- Internal Rotation 5 Normal Right Flexion (L2) 4- Good- Abduction 3 Fair External Rotation 3+ Fair+ Internal Rotation 4 Good Knee Strength Knee Manual Muscle Testing Left Flexion (S2) 4+ Good+ Extension (L3) 4+ Good+ Right Flexion (S2) 4+ Good+ Extension (L3) 4+ Good+ Ankle/Foot Strength Ankle and Foot Manual Muscle Testing Right Dorsiflexion (L4) 4- Good- Plantarflexion (S1) 4 Good Inversion 3+ Fair+ Eversion (S1) 3+ Fair+ Left Dorsiflexion (L4) 4- Good- Plantarflexion (S1) 4 Good Inversion 3+ Fair+ Eversion (S1) 3+ Fair+ Comments PF tested seated B PT-OP-Q Treatments Start: 01/14/23 09:03 Freq: Status: Active Protocol: Document 06/02/23 09:54 [facility] (Rec: 06/02/23 10:38 [facility] [id number]) Gym Equipment Therapeutic Ball seated Ball Size/Color 65cm Body Position seated Reps/Duration 15 ea Comments 1. pelvic tilts 2. circles (B) 3. marches w/TA 4. rot B 5. chop w/Lvl 1 band B Manual Therapy Treatment Soft Tissue Mobilization scar Body Location B pos scaprs Mobilization Type Myofascial Release,Rolling, Sustained Pressure Intensity/Depth sup to mod Body Position Sitting Comments w/pelvic tilt Joint Mobilizations hips Joint B inf FM PT-OP-R Modalities Start: 01/14/23 09:03 Freq: Status: Active Protocol: Document 05/05/23 13:00 [facility] (Rec: 05/05/23 16:39 [facility] [id number]) Hot Pack/Cold Pack Treatment Hot Pack Location left thoracolumbar spine Patient Position Sidelying Patient Tolerance Good Comments folded towel under patient abdomen for support, less spinal strain Patient did ice at home requested trial heat at PT. PT-OP-T Assessment and Plan Start: 01/14/23 09:03 Freq: Status: Active Protocol: Document 06/02/23 09:54 [facility] (Rec: 06/02/23 10:38 [facility] [id number]) Physical Therapy Assessment Goals ORDOÑEZ Impairment 40/56 Sales Leader Goal (LTG) Pt will improve ORDOÑEZ score to at least 50 to show safe for outdoor ambulation 05/10-48 LTG Duration 07/05 activity Short Term Goal (STG) Pt will be able to return to pool for 50% of workout without inc foot or back pain. 03/04 -has not returned 2/6-has not been to the pool d /t med complications and sinus issues. STG Duration achieved 3/5 Usp Goal (LTG) Pt will be able to regularly do full pool work out, gentle strength/balance and walking w /o pain greater than 3/10 03/04-was walking around the block prior to allergic reaction and had one walk to library and back. Has walked aroud the block once. She walked 3 blocks once also 2/6-one walk d/t sinus complications 05/10- can do full pool workout again, has walked less d/t weather- up to 2 blocks LTG Duration 07/05 gait Impairment 6 min walk w/4WW-565ft w/4WW - stopped after 4 min d/t R foot pain Short Term Goal (STG) Pt will be able to amb at least 800ft w/4WW and amb for full 6 min w/o significant inc of LBP or R foot pain. 03/04-n/t d/t asthma 03/09/23: 775 ft 6 min with FWW, no LBP, right foot pain 05/15 STG Duration achieved w/FWW Usp Goal (LTG) Pt will be able to amb at least 900ft w/SPC in 6 min w/o significant inc of LBP or R foot pain. 04/13-hip pain and her typical foot pain 808ft w/FWW LTG Duration 07/05 balance Impairment . Sales Leader Goal (LTG) Pt will show improved balance by ability to do SLS for at least 3 sec B 03/0403/09/23: not tested due to concern over right foot health 04/13-can lift but not balance 05/10-2 sec L; 1 sec R LTG Duration 07/05 One Impairment sit to stands (7.5 w/hands) Short Term Goal (STG) Pt will be able to do at least 2 sit to stands w/o use of hands from standard chair to show improved functional strength and dec risk for falls. 03/09/22: goal progress, dec use of UE's STG Duration achieved 04/13 Sales Leader Goal (LTG) Pt will improve 30 sec sit to stand test to at least 10 to show improved strength and dec risk for falls accordign to age and gender related norms 04/28/23: able complete 5 reps without UE support, not timed. 05/10-9 LTG Duration 07/05 Assessment Summary Assessment Pt was sore after inc activity yesterday but did well iwth gentle core work. She had improved back pain w/hip flex after manual
--- NOTE | 2023-06-07 14:34 | PT.OTN ---
Current Diagnoses Pain in right ankle and joints of right foot (06/07/23) Spinal stenosis, lumbar region with neurogenic claudication (06/07/23) Radiculopathy, lumbar region (06/07/23) Difficulty in walking, not elsewhere classified (06/07/23) Unsteadiness on feet (06/07/23) Abnormal posture (06/07/23) Weakness (06/07/23) Arthrodesis status (06/07/23) Physical Therapy Treatment Note PT-OP-A Visit Information Start: 01/14/23 09:03 Freq: Status: Active Protocol: Document 06/07/23 13:45 [facility] (Rec: 06/07/23 14:34 [facility] [id number]) Out-Patient Physical Therapy Visit Information Visit Information Visit Type Treatment Note Visit Note 08/15 Visit Start Time 13:48 Visit Stop Time 14:28 Visit Number 25 Number of BREAST SPLITTER Visits 0 PT-OP-B Current Condition Start: 01/14/23 09:03 Freq: Status: Active Protocol: Document 04/13/23 09:49 [facility] (Rec: 04/13/23 14:25 [facility] [id number]) Current Condition History of Current Condition Current Complaints XLIF L3-4 fused to L4-S1 prior fusion History of Current Condition /- has been doing rinses w/ steroid through nose and hearing better as she had moderate to severe hearing loss. She had L ear debrided but R ear was too full w/fluid . She is following w/ENT and seems them Wednesday. Saw Primary yesterday. Some days she can hear out of R ear and soemtimes cannot. Reports she was told sinuses are a mess and will have to rinse sinuses daily. She sees custom furrier soon too. She had mult visits to ER. It could still be affect of RA drug. She had a reaction last week where her eyes swelled and had to take steroid and benadryl and it cleared. Going ot stay on methyltrexate. She was unable to do exercises d/t pressure in her lungs. She had her xray recently keyanna SANDOVAL said looked good. She is having no back pain but only occ hip pain. She is still having R foot pain and she is thinking she will have surgery in the fall. The only reason she is using a walker is her foot now. She walks w/o the walker in the kitchen. 03/04-pt was in ICU for allergic reaction 1215-02/23 and only recently had improvement on 02/27. She has been on prednisone since and the half life is until tomorrow of the drug. She had breathing issues and welts on her body. She is still having a little trouble breathing w/ asthma. Back has been overall okay. She had one night she couldn't stop the R SI pain even w/percocet. She still has some surface numbness on the inside of her leg. IE:Pt had XLIF done (replaced disc w/bone and put a cage in per pt and came in from R ant) at L3-4 and that was connected to her prior L4-s1 fusion. Pt reports her SI and leg pain or R lat hip is improved since surgery. She is on no pain meds and has tylenol for pain right now. She still has problems on med foot and lower leg on R. Pt reports R foot is getting worse and is considering surgery and possibly another injection. She is using a 4WW d/t her R foot mostly as it is shooting pain from heel to lat foot. reports, pt teeters around the house and occasionally counter surfs in the kitchen. She feels a lot stronger already. pt concered about going back to a cane d/t R foot and is scared she will fall. Pt reprots she can get around to the end of the block and back w/o back pain but the foot limits her. She gets tired and a little sore sup to lat iliac crest. Treatment Goals Patient/Caregiver Goals Be able to get out and get exercise; be able to get back to the pool for exercise, be able to drive again, get strength back, improve gait; get back to use of cane PT-OP-C Subjective Start: 01/14/23 09:03 Freq: Status: Active Protocol: Document 06/07/23 13:45 [facility] (Rec: 06/07/23 14:34 [facility] [id number]) OP-PT Subjective Patient Comments Patient Comments Pt did 20 min Nustep, abd/add machine & bicep machine and idd the pool and felt fine ( this was sat) and was sore everywhere. Did a 2 block walk d/t her feet and ankles hurting wednesday. Wednesday night she was sore all over. She was busy yesterday too. PT-OP-E Functional Tests Start: 01/18/23 16:02 Freq: Status: Active Protocol: Document 05/11/23 09:04 [facility] (Rec: 05/11/23 10:08 [facility] [id number]) Functional Tests 6 Minute Walk Test Distance 899ft Device Used fww Comments typical R foot aching only 30 Second Sit to Stand Test Score 9 no UEs Comments harris chair Five Times Sit to Stand Test Score 16 sec no UEs Comments harris chair PT-OP-F Manual Assessment Start: 01/14/23 09:03 Freq: Status: Active Protocol: Document 01/18/23 14:37 [facility] (Rec: 01/18/23 16:02 [facility] [id number]) Manual Assessments Other Manual Assessments Other Manual Assessments Good healing of R lat scar and post scar-still some scabbing post PT-OP-G Mobility & Gait Start: 01/14/23 09:03 Freq: Status: Active Protocol: Document 03/04/23 09:04 [facility] (Rec: 03/04/23 09:50 [facility] [id number]) OP Gait Assessment Comments Gait Comments w/FWW w/slight fwd lean PT-OP-J Posture/Palpation/Skin Start: 01/14/23 09:03 Freq: Status: Active Protocol: Document 01/18/23 14:37 [facility] (Rec: 01/18/23 16:02 [facility] [id number]) Posture Evaluation Comments Posture Comments slight flexed position at hips still notable PT-OP-M Strength Start: 01/14/23 09:03 Freq: Status: Active Protocol: Document 04/13/23 09:49 [facility] (Rec: 04/13/23 14:25 [facility] [id number]) Hip Strength Hip Manual Muscle Testing Left Flexion (L2) 4- Good- Abduction 3+ Fair+ External Rotation 4- Good- Internal Rotation 5 Normal Right Flexion (L2) 4- Good- Abduction 3 Fair External Rotation 3+ Fair+ Internal Rotation 4 Good Knee Strength Knee Manual Muscle Testing Left Flexion (S2) 4+ Good+ Extension (L3) 4+ Good+ Right Flexion (S2) 4+ Good+ Extension (L3) 4+ Good+ Ankle/Foot Strength Ankle and Foot Manual Muscle Testing Right Dorsiflexion (L4) 4- Good- Plantarflexion (S1) 4 Good Inversion 3+ Fair+ Eversion (S1) 3+ Fair+ Left Dorsiflexion (L4) 4- Good- Plantarflexion (S1) 4 Good Inversion 3+ Fair+ Eversion (S1) 3+ Fair+ Comments PF tested seated B PT-OP-Q Treatments Start: 01/14/23 09:03 Freq: Status: Active Protocol: Document 06/07/23 13:45 [facility] (Rec: 06/07/23 14:34 [facility] [id number]) Gym Equipment Therapeutic Ball seated Ball Size/Color 65cm Body Position seated Reps/Duration 15 ea Comments 1. pelvic tilts 2. circles (B) 3. marches w/TA 4. rot B 5. chop w/Lvl 1 band B Manual Therapy Treatment Soft Tissue Mobilization back Body Location ES Mobilization Type Myofascial Release,Rolling, Sustained Pressure Comments supine w/flex of hips Neuro Re-Education Treatment Balance Activities EC Comments WBOS, NBOS and staggered stance B EC PT-OP-R Modalities Start: 01/14/23 09:03 Freq: Status: Active Protocol: Document 05/05/23 13:00 [facility] (Rec: 05/05/23 16:39 [facility] [id number]) Hot Pack/Cold Pack Treatment Hot Pack Location left thoracolumbar spine Patient Position Sidelying Patient Tolerance Good Comments folded towel under patient abdomen for support, less spinal strain Patient did ice at home requested trial heat at PT. PT-OP-T Assessment and Plan Start: 01/14/23 09:03 Freq: Status: Active Protocol: Document 06/07/23 13:45 [facility] (Rec: 06/07/23 14:34 [facility] [id number]) Physical Therapy Assessment Goals ORDOÑEZ Impairment 40/56 [facility] Goal (LTG) Pt will improve ORDOÑEZ score to at least 50 to show safe for outdoor ambulation 05/10-48 LTG Duration 07/05 activity Short Term Goal (STG) Pt will be able to return to pool for 50% of workout without inc foot or back pain. 03/04 -has not returned 2/6-has not been to the pool d /t med complications and sinus issues. STG Duration achieved 3/5 Asphalt Mixing Machine Operator Goal (LTG) Pt will be able to regularly do full pool work out, gentle strength/balance and walking w /o pain greater than 3/10 03/04-was walking around the block prior to allergic reaction and had one walk to library and back. Has walked aroud the block once. She walked 3 blocks once also /-one walk d/t sinus complications 05/10- can do full pool workout again, has walked less d/t weather- up to 2 blocks LTG Duration 07/05 gait Impairment 6 min walk w/4WW-565ft w/4WW - stopped after 4 min d/t R foot pain Short Term Goal (STG) Pt will be able to amb at least 800ft w/4WW and amb for full 6 min w/o significant inc of LBP or R foot pain. 03/04-n/t d/t asthma 03/09/23: 775 ft 6 min with FWW, no LBP, right foot pain 05/15 STG Duration achieved w/FWW Asphalt Mixing Machine Operator Goal (LTG) Pt will be able to amb at least 900ft w/SPC in 6 min w/o significant inc of LBP or R foot pain. 04/13-hip pain and her typical foot pain 808ft w/FWW LTG Duration 07/05 balance Impairment . [facility] Goal (LTG) Pt will show improved balance by ability to do SLS for at least 3 sec B 03/0403/09/23: not tested due to concern over right foot health 04/13-can lift but not balance 05/10-2 sec L; 1 sec R LTG Duration 07/05 One Impairment sit to stands (7.5 w/hands) Short Term Goal (STG) Pt will be able to do at least 2 sit to stands w/o use of hands from standard chair to show improved functional strength and dec risk for falls. 03/09/22: goal progress, dec use of UE's STG Duration achieved 04/13 Asphalt Mixing Machine Operator Goal (LTG) Pt will improve 30 sec sit to stand test to at least 10 to show improved strength and dec risk for falls accordign to age and gender related norms 04/28/23: able complete 5 reps without UE support, not timed. 05/10-9 LTG Duration 07/05 Assessment Summary Assessment Pt did well seated core w/occ use of rail. Stopped balance dynamic d/t R foot pain where brace touches. Pt instructed to contact electrical project manager re: this. Inc back tightness overall and instructed to try to hold off on water jogging to see if that changes. Physical Therapy Plan Frequency and Duration Frequency of Treatment 1-2x/Week Duration of treatment (weeks) 12 Plan of Care Start Date 04/13/23 Plan of Care End Date 07/06/23 Next Visit Focus/Plan Next Note Type Treatment Note Next Visit Plan cont to review exercises as needed; advance standing time as tolerated & work on cane stability
--- NOTE | 2023-06-22 14:38 | PT.OTN ---
Current Diagnoses Pain in right ankle and joints of right foot (06/22/23) Spinal stenosis, lumbar region with neurogenic claudication (06/22/23) Radiculopathy, lumbar region (06/22/23) Difficulty in walking, not elsewhere classified (06/22/23) Unsteadiness on feet (06/22/23) Abnormal posture (06/22/23) Weakness (06/22/23) Arthrodesis status (06/22/23) Physical Therapy Treatment Note PT-OP-A Visit Information Start: 01/14/23 09:03 Freq: Status: Active Protocol: Document 06/22/23 13:46 [facility] (Rec: 06/22/23 14:38 [facility] [id number]) Out-Patient Physical Therapy Visit Information Visit Information Visit Type Discharge Summary Visit Start Time 13:47 Visit Stop Time 14:30 Visit Number 26 Number of DOCUMENTATION ENGINEER Visits 0 PT-OP-B Current Condition Start: 01/14/23 09:03 Freq: Status: Active Protocol: Document 04/13/23 09:49 [facility] (Rec: 04/13/23 14:25 [facility] [id number]) Current Condition History of Current Condition Current Complaints XLIF L3-4 fused to L4-S1 prior fusion History of Current Condition /- has been doing rinses w/ steroid through nose and hearing better as she had moderate to severe hearing loss. She had L ear debrided but R ear was too full w/fluid . She is following w/ENT and seems them Wing. Saw Primary yesterday. Some days she can hear out of R ear and soemtimes cannot. Reports she was told sinuses are a mess and will have to rinse sinuses daily. She sees automotive porter soon too. She had mult visits to ER. It could still be affect of RA drug. She had a reaction last week where her eyes swelled and had to take steroid and benadryl and it cleared. Going ot stay on methyltrexate. She was unable to do exercises d/t pressure in her lungs. She had her xray recently keyanna SANDOVAL said looked good. She is having no back pain but only occ hip pain. She is still having R foot pain and she is thinking she will have surgery in the fall. The only reason she is using a walker is her foot now. She walks w/o the walker in the kitchen. 03/04-pt was in ICU for allergic reaction 1215-02/23 and only recently had improvement on 02/27. She has been on prednisone since and the half life is until tomorrow of the drug. She had breathing issues and welts on her body. She is still having a little trouble breathing w/ asthma. Back has been overall okay. She had one night she couldn't stop the R SI pain even w/percocet. She still has some surface numbness on the inside of her leg. IE:Pt had XLIF done (replaced disc w/bone and put a cage in per pt and came in from R ant) at L3-4 and that was connected to her prior L4-s1 fusion. Pt reports her SI and leg pain or R lat hip is improved since surgery. She is on no pain meds and has tylenol for pain right now. She still has problems on med foot and lower leg on R. Pt reports R foot is getting worse and is considering surgery and possibly another injection. She is using a 4WW d/t her R foot mostly as it is shooting pain from heel to lat foot. reports, pt teeters around the house and occasionally counter surfs in the kitchen. She feels a lot stronger already. pt concered about going back to a cane d/t R foot and is scared she will fall. Pt reprots she can get around to the end of the block and back w/o back pain but the foot limits her. She gets tired and a little sore sup to lat iliac crest. Treatment Goals Patient/Caregiver Goals Be able to get out and get exercise; be able to get back to the pool for exercise, be able to drive again, get strength back, improve gait; get back to use of cane PT-OP-C Subjective Start: 01/14/23 09:03 Freq: Status: Active Protocol: Document 06/22/23 13:46 [facility] (Rec: 06/22/23 14:38 [facility] [id number]) OP-PT Subjective Patient Comments Patient Comments Pt saw pulmonogolist and had pulmonary function test that showed only mild concerns and saw automotive porter. Bad Work Gatherer will manage if try different med and got sympany today. Pt did the pool and machines and was sore in back, feet and everywehre. She has decided she can't do machines and sim the same day. She returned to just doing the pool. She has been difficulty w/L neck and is worried about doing head turns. Saw eye doctor today and eyes are still mildly dilated. Sees primary again soon. got a new 4ww that she can lift in the car. She went for walk [place] and wasn't sore until wednesday night and B feet hurt when went to bed and felt fine today. PT-OP-E Functional Tests Start: 01/18/23 16:02 Freq: Status: Active Protocol: Document 05/11/23 09:04 [facility] (Rec: 05/11/23 10:08 [facility] [id number]) Functional Tests 6 Minute Walk Test Distance 899ft Device Used fww Comments typical R foot aching only 30 Second Sit to Stand Test Score 9 no UEs Comments harris chair Five Times Sit to Stand Test Score 16 sec no UEs Comments harris chair PT-OP-F Manual Assessment Start: 01/14/23 09:03 Freq: Status: Active Protocol: Document 01/18/23 14:37 [facility] (Rec: 01/18/23 16:02 [facility] [id number]) Manual Assessments Other Manual Assessments Other Manual Assessments Good healing of R lat scar and post scar-still some scabbing post PT-OP-G Mobility & Gait Start: 01/14/23 09:03 Freq: Status: Active Protocol: Document 03/04/23 09:04 [facility] (Rec: 03/04/23 09:50 [facility] [id number]) OP Gait Assessment Comments Gait Comments w/FWW w/slight fwd lean PT-OP-J Posture/Palpation/Skin Start: 01/14/23 09:03 Freq: Status: Active Protocol: Document 01/18/23 14:37 [facility] (Rec: 01/18/23 16:02 [facility] [id number]) Posture Evaluation Comments Posture Comments slight flexed position at hips still notable PT-OP-M Strength Start: 01/14/23 09:03 Freq: Status: Active Protocol: Document 04/13/23 09:49 [facility] (Rec: 04/13/23 14:25 [facility] [id number]) Hip Strength Hip Manual Muscle Testing Left Flexion (L2) 4- Good- Abduction 3+ Fair+ External Rotation 4- Good- Internal Rotation 5 Normal Right Flexion (L2) 4- Good- Abduction 3 Fair External Rotation 3+ Fair+ Internal Rotation 4 Good Knee Strength Knee Manual Muscle Testing Left Flexion (S2) 4+ Good+ Extension (L3) 4+ Good+ Right Flexion (S2) 4+ Good+ Extension (L3) 4+ Good+ Ankle/Foot Strength Ankle and Foot Manual Muscle Testing Right Dorsiflexion (L4) 4- Good- Plantarflexion (S1) 4 Good Inversion 3+ Fair+ Eversion (S1) 3+ Fair+ Left Dorsiflexion (L4) 4- Good- Plantarflexion (S1) 4 Good Inversion 3+ Fair+ Eversion (S1) 3+ Fair+ Comments PF tested seated B PT-OP-Q Treatments Start: 01/14/23 09:03 Freq: Status: Active Protocol: Document 06/22/23 13:46 [facility] (Rec: 06/22/23 14:38 [facility] [id number]) Therapeutic Exercises Sitting Exercises ankle Sitting Exercise Name 1. inversion 2. eversion 3.DF Side right Equipment Used L1 Reps/Minutes 15 ea Standing Exercises sit to stand Side bilateral Reps/Minutes 10 Other Exercises 6min walk Reps/Minutes 1042ft Gait Training Gait Activity 4WW Comments adjusted 4WW height and working on relaxed shoulders and appropriate distance from walker x8 min Neuro Re-Education Treatment Balance Activities ordoñez Comments 52 Self-Care/Home Management Treatment Education Other Education 15 min: discussion w/pt re: gradual advancement of walking vs doing too much. Edu to cont exercsies and reviewe dimportant exercises to focus on. edu for cane at least just in case R foot gives sharp pain. PT-OP-R Modalities Start: 01/14/23 09:03 Freq: Status: Active Protocol: Document 05/05/23 13:00 [facility] (Rec: 05/05/23 16:39 [facility] [id number]) Hot Pack/Cold Pack Treatment Hot Pack Location left thoracolumbar spine Patient Position Sidelying Patient Tolerance Good Comments folded towel under patient abdomen for support, less spinal strain Patient did ice at home requested trial heat at PT. PT-OP-T Assessment and Plan Start: 01/14/23 09:03 Freq: Status: Active Protocol: Document 06/22/23 13:46 [facility] (Rec: 06/22/23 14:38 [facility] [id number]) Physical Therapy Assessment Goals ORDOÑEZ Impairment Elementary Vocal Music Teacher Goal (LTG) Pt will improve ORDOÑEZ score to at least 50 to show safe for outdoor ambulation 05/10- LTG Duration 06/21 activity Short Term Goal (STG) Pt will be able to return to pool for 50% of workout without inc foot or back pain. 03/04 -has not returned 04/13-has not been to the pool d /t med complications and sinus issues. STG Duration achieved 05/10 Shelter Goal (LTG) Pt will be able to regularly do full pool work out, gentle strength/balance and walking w /o pain greater than 05/15 03/04-was walking around the block prior to allergic reaction and had one walk to library and back. Has walked aroud the block once. She walked 3 blocks once also 04/13-one walk d/t sinus complications 05/10- can do full pool workout again, has walked less d/t weather- up to 2 blocks LTG Duration achieved 06/21 gait Impairment 6 min walk w/4WW-565ft w/4WW - stopped after 4 min d/t R foot pain Short Term Goal (STG) Pt will be able to amb at least 800ft w/4WW and amb for full 6 min w/o significant inc of LBP or R foot pain. 03/04-n/t d/t asthma 03/09/23: 775 ft 6 min with FWW, no LBP, right foot pain 05/15 STG Duration achieved w/FWW Elementary Vocal Music Teacher Goal (LTG) Pt will be able to amb at least 900ft w/SPC in 6 min w/o significant inc of LBP or R foot pain. 04/13-hip pain and her typical foot pain 808ft w/FWW LTG Duration 1043ft-foot/monzon pain w/4ww- did not try cane d/t foot pain balance Impairment . Shelter Goal (LTG) Pt will show improved balance by ability to do SLS for at least 3 sec B 03/0403/09/23: not tested due to concern over right foot health 04/13-can lift but not balance 05/10-2 sec L; 1 sec R LTG Duration 3 sec L; 2.5 sec R-improved One Impairment sit to stands (7.5 w/hands) Short Term Goal (STG) Pt will be able to do at least 2 sit to stands w/o use of hands from standard chair to show improved functional strength and dec risk for falls. 03/09/22: goal progress, dec use of UE's STG Duration achieved 04/13 Elementary Vocal Music Teacher Goal (LTG) Pt will improve 30 sec sit to stand test to at least 10 to show improved strength and dec risk for falls accordign to age and gender related norms 04/28/23: able complete 5 reps without UE support, not timed. 05/10- LTG Duration achieved -06/21 Assessment Summary Assessment Pt has made excellent progress w/ PT at this time and shows improved balance and strenghta nd functional ability. LBP is well controlled and major limit at this time is her R foot. DC to [facility] which pt is indep w/ Physical Therapy Plan Discharge Physical Therapy Discharge Reasons Goals Met
== END 2023-06-28 10:59 | disposition home or self-care (01) ==
LOC: PHYS 13:45
PROVIDERS: Family Provider Family Medicine; PCP Family Medicine; Referring Provider Physician Assistant; Visit Provider Physician Assistant
DX: M54.16 Radiculopathy, lumbar region (principal); M48.062 Spinal stenosis, lumbar region with neurogenic claudication; Z98.1 Arthrodesis status; R26.2 Difficulty in walking, not elsewhere classified; R53.1 Weakness; R29.3 Abnormal posture; M25.571 Pain in right ankle and joints of right foot
CPT/HCPCS: 97014; 97110; 97112; 97116; 97140; 97163; 97164; 97535; G0283

== ENCOUNTER → 2023-09-03 10:10 | Outpatient (CLI) | payer MEDICARE, SELFPAY ==
[2023-02-21 01:38] VITALS: BMI 34.8
--- NOTE | 2023-09-03 | DI.MG.S_ITS ---
UNILATERAL RIGHT DIGITAL DIAGNOSTIC MAMMOGRAM 3D/2D: 09/03/2023 CLINICAL: Short term follow up of the right breast. Comparison is made to exams dated: 03/05/2023 mammogram, 08/20/2022 mammogram, 02/06/2022 mammogram, 01/07/2022 mammogram, and 10/26/2020 mammogram - [facility]. The right breast is heterogeneously dense, which may obscure small masses (category c / 51-75% glandular tissue). There is an asymmetry in the right breast anterior depth central to the nipple seen on the craniocaudal view only. This is not significantly changed and was not seen on the prior ultrasound. No other significant masses or calcifications are seen in the breast. IMPRESSION: PROBABLY BENIGN The asymmetry in the right breast is is not significantly changed and is probably benign. A follow-up bilateral mammogram in 6 months is recommended to demonstrate termite exterminator helper stability. Findings and recommendations were conveyed to the patient during today's evaluation. Based on the Tyrer Cuzick model (a risk assessment model) the patient's lifetime risk is 6.6% and her 10 year risk is 5.4%. According to the ACR, ACS, and NCCN guidelines, an annual breast MRI exam along with mammogram is recommended if the patient's lifetime risk is 20% or greater. This exam was interpreted at Station ID: [id number]. NOTE: For mammograms, a report in lay terms will be sent to the patient. Approximately 15% of breast malignancies will not be visualized mammographically. In the management of a palpable breast mass, a negative mammogram must not discourage biopsy of a clinically suspicious lesion. Electronically Signed By: Randy lay/:09/03/2023 11:29:30 copy to: Justin Gayle letter sent: Followup Recommended ACR BI-RADS Category 3: Probably benign [id number]
== END ==
LOC: MAMMO 10:10
PROVIDERS: Family Provider Family Medicine; PCP Family Medicine; Referring Provider Family Medicine; Visit Provider Family Medicine
DX: R92.8 Other abnormal and inconclusive findings on diagnostic imaging of breast (principal); Q83.9 Congenital malformation of breast, unspecified; R92.331 Mammographic heterogeneous density, right breast; N64.89 Other specified disorders of breast
CPT/HCPCS: 77065; G0279

== ENCOUNTER → 2023-09-17 11:06 | Outpatient (CLI) | payer MEDICARE, SELFPAY ==
[2023-02-21 01:38] VITALS: BMI 34.8
[2023-09-17 11:36] LABS: Add Manual Diff / Slide Review NO; Basophils Absolute Auto 0 /uL (0-100); Basophils Percent Auto 1.1 % (0-2); Eosinophils Absolute Auto 100 /uL (0-450); Eosinophils Percent Auto 2.8 % (2-4); Hematocrit 40.6 % (36-46); Hemoglobin 13.5 g/dL (12.0-16.0); Lymphocytes Absolute Auto 1300 /uL (1100-4500); Lymphocytes Percent Auto 35.7 % (25-40); Mean Corpuscular HGB Conc 33.2 % (30-36); Mean Corpuscular Hemoglobin 30.8 PG (26-34); Mean Corpuscular Volume 92.8 fL (80-100); Monocytes Absolute Auto 500 /uL (0-900); Monocytes Percent Auto 14.4 % (3-14); Neutrophils Absolute Auto 1600 /uL (1500-7000); Platelet Count 166 X10^3/uL (150-400); Red Blood Cell Count 4.38 X10^6/uL (4.0-5.2); Red Cell Distribution Width 15.7 % (11.6-14.8); White Blood Cell Count 3.6 X10^3/uL (4.5-11.0)
[2023-09-17 11:53] LABS: Alanine Aminotransferase 30 IU/L (<35); Albumin 4.1 g/dL (3.5-5.0); Albumin Globulin Ratio 1.6 (1.0-2.8); Alkaline Phosphatase 47 U/L (38-126); Aspartate Aminotransferase 32 IU/L (14-36); BUN Creatinine Ratio 26.4 (6-22); Bilirubin Total 0.8 mg/dL (0.2-1.3); Blood Urea Nitrogen 23 mg/dL (7-17); Calcium 8.8 mg/dL (8.4-10.2); Carbon Dioxide 27 mmol/L (22-32); Chloride 107 mmol/L (98-107); Estimated Glomerular Filt Rate > 60 mL/min (>60); Globulin 2.5 g/dL (1.7-4.1); Glucose 94 mg/dL (80-110); HEMOLYSIS 19 (0-50); Potassium 4.3 mmol/L (3.4-5.1); Sodium 135 mmol/L (137-145); Total Protein 6.6 g/dL (6.3-8.2)
== END ==
PROVIDERS: Family Provider Family Medicine; PCP Family Medicine; Referring Provider Internal Medicine Rheumatology; Visit Provider Internal Medicine Rheumatology
DX: M06.09 Rheumatoid arthritis without rheumatoid factor, multiple sites (principal); Z79.899 Other long term (current) drug therapy
CPT/HCPCS: 36415; 80053; 85025

== ENCOUNTER → 2023-12-24 10:24 | Outpatient (CLI) | payer MEDICARE, SELFPAY ==
[2023-02-21 01:38] VITALS: BMI 34.8
[2023-12-24 11:24] LABS: Add Manual Diff / Slide Review NO; Basophils Absolute Auto 100 /uL (0-100); Basophils Percent Auto 1.3 % (0-2); Eosinophils Absolute Auto 100 /uL (0-450); Eosinophils Percent Auto 2.9 % (2-4); Hematocrit 41.3 % (36-46); Hemoglobin 13.6 g/dL (12.0-16.0); Lymphocytes Absolute Auto 1000 /uL (1100-4500); Lymphocytes Percent Auto 22.3 % (25-40); Mean Corpuscular Hemoglobin 31.7 PG (26-34); Mean Corpuscular Volume 96.1 fL (80-100); Monocytes Absolute Auto 800 /uL (0-900); Monocytes Percent Auto 19.4 % (3-14); Neutrophils Absolute Auto 2400 /uL (1500-7000); Neutrophils Percent Auto 54.1 % (50-75); Platelet Count 154 X10^3/uL (150-400); Red Blood Cell Count 4.29 X10^6/uL (4.0-5.2); Red Cell Distribution Width 15.5 % (11.6-14.8); White Blood Cell Count 4.4 X10^3/uL (4.5-11.0)
[2023-12-24 11:59] LABS: Alanine Aminotransferase 35 IU/L (<35); Albumin 3.9 g/dL (3.5-5.0); Albumin Globulin Ratio 1.9 (1.0-2.8); Alkaline Phosphatase 47 U/L (38-126); Aspartate Aminotransferase 33 IU/L (14-36); BUN Creatinine Ratio 21.7 (6-22); Bilirubin Total 0.7 mg/dL (0.2-1.3); Blood Urea Nitrogen 20 mg/dL (7-17); C-Reactive Protein Quant 1.6 mg/dL (<1.0); Calcium 9.1 mg/dL (8.4-10.2); Carbon Dioxide 29 mmol/L (22-32); Chloride 100 mmol/L (98-107); Estimated Glomerular Filt Rate > 60 mL/min (>60); Globulin 2.1 g/dL (1.7-4.1); Glucose 90 mg/dL (80-110); HEMOLYSIS < 15 (0-50); Potassium 4.4 mmol/L (3.4-5.1); Sodium 134 mmol/L (137-145)
[2023-12-24 12:03] LABS: Rheumatoid Factor < 8.6 IU/mL (<12.0)
[2023-12-27 23:35] LABS: QuantiFERON Mitogen Value >10.00 IU/mL (.); QuantiFERON Nil Value 0.98 IU/mL (.); QuantiFERON TB Gold Plus Negative (Negative); QuantiFERON TB1 Ag Value 0.99 IU/mL (.); QuantiFERON TB2 Ag Value 1.06 IU/mL (.)
== END ==
LOC: LAB 10:25
PROVIDERS: Family Provider Family Medicine; PCP Family Medicine; Referring Provider Internal Medicine Rheumatology; Visit Provider Internal Medicine Rheumatology
DX: M06.00 Rheumatoid arthritis without rheumatoid factor, unspecified site (principal); Z79.899 Other long term (current) drug therapy
CPT/HCPCS: 36415; 80053; 85025; 86140; 86430; 86480

== ENCOUNTER → 2024-01-25 12:33 | Outpatient (CLI) | payer MEDICARE, SELFPAY ==
[2023-02-21 01:38] VITALS: BMI 34.8
[2024-01-25 13:29] LABS: Add Manual Diff / Slide Review NO; Basophils Absolute Auto 0 /uL (0-100); Basophils Percent Auto 0.8 % (0-2); Eosinophils Absolute Auto 100 /uL (0-450); Eosinophils Percent Auto 2.4 % (2-4); Hematocrit 42.7 % (36-46); Hemoglobin 14.1 g/dL (12.0-16.0); Lymphocytes Absolute Auto 1800 /uL (1100-4500); Lymphocytes Percent Auto 45.8 % (25-40); Mean Corpuscular Hemoglobin 31.6 PG (26-34); Mean Corpuscular Volume 95.6 fL (80-100); Monocytes Absolute Auto 400 /uL (0-900); Monocytes Percent Auto 10.7 % (3-14); Neutrophils Absolute Auto 1600 /uL (1500-7000); Neutrophils Percent Auto 40.3 % (50-75); Platelet Count 157 X10^3/uL (150-400); Red Blood Cell Count 4.47 X10^6/uL (4.0-5.2); White Blood Cell Count 3.9 X10^3/uL (4.5-11.0)
[2024-01-26 04:09] LABS: Immunoglobulin A 69 mg/dL (64-422); Immunoglobulin G, Quantitative 624 mg/dL (586-1602); Immunoglobulin M, Quantitative 64 mg/dL (26-217)
[2024-01-27 23:36] LABS: Immunoglobulin E 2 IU/mL (6-495)
[2024-01-28 01:39] LABS: Complement Total CH50 > 60 U/mL (>41)
== END ==
PROVIDERS: Family Provider Family Medicine; PCP Family Medicine; Referring Provider Internal Medicine Allergy & Immunology; Visit Provider Internal Medicine Allergy & Immunology
DX: B99.9 Unspecified infectious disease (principal); T78.3XXA Angioneurotic edema, initial encounter
CPT/HCPCS: 36415; 82784; 82785; 83520; 85025; 86162; 86317; 86356; 86357; 86359; 86360

== ENCOUNTER → 2024-03-03 11:57 | Outpatient (CLI) | payer MEDICARE, SELFPAY ==
[2023-02-21 01:38] VITALS: BMI 34.8
--- NOTE | 2024-03-03 11:58 | DI.MG.S_ITS ---
BILATERAL DIGITAL DIAGNOSTIC MAMMOGRAM 3D/2D: 03/03/2024 CLINICAL: Patient returns for a 6 month follow up of the right breast, due for bilateral exam. Comparison is made to exams dated: 01/07/2022 mammogram, 09/03/2023 mammogram, 10/26/2020 mammogram, 03/05/2023 mammogram, 08/20/2022 mammogram, and 02/06/2022 mammogram - [facility]. The breasts are heterogeneously dense, which may obscure small masses (category c / 51-75% glandular tissue). There is an asymmetry in the right breast anterior depth central to the nipple seen on the craniocaudal view only. This is not significantly changed since 02/06/2022 and was not seen on the prior ultrasound. No other significant masses, calcifications, or other findings are seen in either breast. IMPRESSION: BENIGN Right breast asymmetry in the central anterior depth seen on CC view, stable since February 2022. Given this finding has demonstrated 2 years of stability, it is consistent with a benign process. No mammographic evidence of malignancy. A 1 year screening mammogram is recommended. Findings and recommendations were conveyed to the patient during today's evaluation. Based on the Tyrer Cuzick model (a risk assessment model) the patient's lifetime risk is 6.2% and her 10 year risk is 5.5%. According to the ACR, ACS, and NCCN guidelines, an annual breast MRI exam along with mammogram is recommended if the patient's lifetime risk is 20% or greater. This exam was interpreted at Station ID: [id number]. NOTE: For mammograms, a report in lay terms will be sent to the patient. Approximately 15% of breast malignancies will not be visualized mammographically. In the management of a palpable breast mass, a negative mammogram must not discourage biopsy of a clinically suspicious lesion. Electronically Signed By: Vero Holder M.D., Ph.D. eb/:03/03/2024 12:47:00 copy to: Justin Gayle letter sent: Normal Exam ACR BI-RADS Category 2: Benign
== END ==
PROVIDERS: Family Provider Family Medicine; PCP Family Medicine; Referring Provider Family Medicine; Visit Provider Family Medicine
DX: R92.8 Other abnormal and inconclusive findings on diagnostic imaging of breast (principal); N64.89 Other specified disorders of breast; R92.333 Mammographic heterogeneous density, bilateral breasts
CPT/HCPCS: 77066; G0279

== ENCOUNTER → 2024-03-06 09:52 | Outpatient (CLI) | payer MEDICARE, SELFPAY ==
[2023-02-21 01:38] VITALS: BMI 34.8
--- NOTE | 2024-03-06 09:52 | DI.RAD.S_ITS ---
PROCEDURE: XR DEXA AXIAL SKELETON INDICATIONS: SCREENING COMPARISON: [facility], , XR DEXA AXIAL SKELETON, 03/12/2022, 12:21. [facility], CR, XR DEXA AXIAL SKELETON, 05/04/2019, 14:04. FINDINGS: Lumbar Spine: Not used due to fusion hardware Left Hip: Bone mineral density 1.02 g/cm2, T score 0.7, previously 0.9. Left Femoral Neck: Bone mineral density 0.802 g/cm2, T score -0.4, previously 0.2. Right Hip: Bone mineral density 1.019 g/cm2, T score 0.6, previously 0.6. Right Femoral Neck: Bone mineral density 0.898 g/cm2, T score 0.4, previously 0.5. Left Forearm: Bone mineral density 0.584 g/cm2, T score 0.1 Fracture Risk Calculation (when applicable): 10-year fracture risk of a major osteoporotic fracture 33 percent and of a hip fracture 11 percent. (T score greater or equal to -1.0 to: NORMAL) (T score from -1.1 to -2.4: OSTEOPENIA) (T score less than or equal to -2.5: OSTEOPOROSIS) IMPRESSION: 1. Normal bone density of the left hip and femoral neck. 2. Normal bone density of the right hip and femoral neck. 3. Normal bone density of the left forearm. Follow-up guidelines as follows: Osteoporosis: Consider a repeat DEXA and Vertebral Fracture Assessment (VFA) exam in 2 years or sooner if medically necessary, to reassess this patient's status. Osteopenia: Consider a repeat DEXA in 2-3 years to reassess this patient's status, or if there is a new clinical indication. Normal: Consider a repeat DEXA in 5 years or sooner, or if there is a new clinical indication. All treatment decisions require clinical judgment and consideration of individual patient factors, including patient preferences, comorbidities, previous drug use, risk factors not captured in the FRAX model (e.g., frailty, falls, vitamin D deficiency, increased bone turnover, interval significant decline in bone density ) and possible under- or over-estimation of fracture risk by FRAX. In addition, the NOF Guide recommends that FDA-approved medical therapies be considered in postmenopausal women and men age >= 50 years with a: * Hip or vertebral (clinical or morphometric) fracture * T-score of <=-2.5 at the spine or hip * Ten-year fracture probability by FRAX of >= 3% for hip fracture or >=20% for major osteoporotic fracture. People with diagnosed cases of osteoporosis or at high risk for fracture should have regular bone mineral density tests. For patients eligible for Medicare, routine testing is allowed once every 2 years. The testing frequency can be increased to one year for patients who have rapidly progressing disease, those who are receiving or discontinuing medical therapy to restore bone mass, or have additional risk factors. Dictated by: Chemo Jaramillo M.D. on 03/06/2024 at 15:06 Approved by: Chemo Jaramillo M.D. on 03/06/2024 at 15:09
== END ==
PROVIDERS: Family Provider Family Medicine; PCP Family Medicine; Referring Provider Internal Medicine Rheumatology; Visit Provider Internal Medicine Rheumatology
DX: Z13.820 Encounter for screening for osteoporosis (principal); Z78.0 Asymptomatic menopausal state
CPT/HCPCS: 77080; 77081

== ENCOUNTER 2024-03-06 11:30 | Outpatient (RCR) | payer MEDICARE, SELFPAY ==
[2023-02-21 01:38] VITALS: BMI 34.8
--- NOTE | 2023-12-29 18:25 | PT.OIE ---
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 DVT (deep venous thrombosis) (~2000) Encounter for subsequent annual wellness visit (AWV) in Medicare patient Fractures GERD (gastroesophageal reflux disease) (~1997) Hyperlipidemia Knee pain Low back pain Lumbar compression fracture Lumbar radiculopathy Lumbar spinal stenosis Lumbar spine pain (~1979) Lumbosacral spondylosis Lymphocytic colitis (~2019) Obesity (BMI 30.0-34.9) Osteoarthritis (~1979) Peripheral neuropathy Pulmonary embolism (~2000) Right hip pain Sacroiliac joint dysfunction Scoliosis (~1949) Seronegative rheumatoid arthritis (~2011) Shoulder pain Spondylolisthesis Status post fall Tinnitus Past Surgical History (Last Reviewed 11/09/23 @ 11:45 by Yamil Dumont MD) Anesthesia H/O eye surgery (02/05/1958) H/O total hysterectomy (05/06/00) History of arthroscopic knee surgery (~05/07/79) History of carpal tunnel surgery (~06/06/13) History of cataract removal with insertion of prosthetic lens (~04/08/21) History of cholecystectomy (02/05/98) History of foot surgery History of knee surgery (05/05/10) History of left knee surgery (~05/06/77) History of left shoulder replacement (02/16/19) History of plastic surgery (~07/30/04) 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) History of uterine fibroid (~08/07/91) Hx of spinal fusion (10/09/18) Hx of tonsillectomy (07/27/1967) Patellar fracture (~04/18/09) S/P foot surgery, left (~02/16/18) S/P removal of ovarian cyst (~09/05/77) Status post left rotator cuff repair (~04/01/08) Status post lumbar spinal fusion Status post right rotator cuff repair (~05/05/07) Temporomandibular joint disorder (~03/08/77) Visit Care Team Role Provider Type Nai Arita DO Attending Provider Physician Family Provider Primary Care Provider Referring Provider Specialty: Family Practice Address: [address] [place] [address], [address], [facility] Email: Physical Therapy Initial Evaluation PT-OP-A Visit Information Start: 12/29/23 08:16 Freq: Status: Active Protocol: Document 12/29/23 16:22 [facility] (Rec: 12/29/23 17:08 [facility] [id number]) Out-Patient Physical Therapy Visit Information Visit Information Visit Type Initial Evaluation Visit Note 03/17 Visit Start Time 16:18 Visit Stop Time 17:04 Visit Number 1 Number of FARM LOAN INSPECTOR Visits 0 PT-OP-B Current Condition Start: 12/29/23 08:16 Freq: Status: Active Protocol: Document 12/29/23 16:22 [facility] (Rec: 12/29/23 17:08 [facility] [id number]) Current Condition History of Current Condition Onset Date chronic w/recent worsening Current Complaints LBP, dec balance History of Current Condition Pt reports cannot walk w/o brace on ankle. Pt reports back has been overall good but last week woke up and LLB and L hip, she has been having pain. she is worried about how weak she is and prepping for surgery to be strong for after especailly w/extended NWB. Wants to prep for being able to transfer w/o wt into foot. Went to see Dr. Mcqueen at [facility] for knees and kneecaps are are more lat and R one is subluxing.notes she just needed to work on R quad strength. started chair yoga at the [facility] and she likes it a lot (per voice coach suggestion). Pt reports R shoulder is limited w/overhead motion and has OA. per pt email prior to appt:did very well up to mid-July with back/exercises/pool etc. Then I got COVID mid-July and was not only positive for a month but very sick. I got a secondary infection/bronchitis /asthma flare and sinusitis. I was a mess until the end of August. I was exhausted all of September. I had just gone through 9 months of surgery or infections. I don?t even know what I did in Nov./Dec. but did not get to [place]. I started chair yoga at [facility]. I just started doing home exercises this week. I am just getting over another asthma flare/bronchitis. I have decided to have foot surgery because the pain is worse. I am scheduled for a bone scan next week and see the doctor so I can get scheduled. I don?t think they can get to me until late Feb. or early Mar. I am having some back pain, balance issues and need a refresher on how to get out of wheelchair to bed etc. without using my right leg. Treatment Goals Patient/Caregiver Goals Be able to transfer out of WC w/NWB to RLE, get strength back, balance PT-OP-C Subjective Start: 12/29/23 08:16 Freq: Status: Active Protocol: Document 12/29/23 16:22 [facility] (Rec: 12/29/23 17:38 [facility] [id number]) Patient Questionnaires Oswestry Low Back Index Oswestry Score 16/50 PT-OP-D Balance Start: 12/29/23 08:16 Freq: Status: Active Protocol: Document 12/29/23 16:22 [facility] (Rec: 12/29/23 17:08 [facility] [id number]) Balance Tests Ordoñez Balance Test Ordoñez Balance Test Score 40 PT-OP-E Functional Tests Start: 12/29/23 18:13 Freq: Status: Active Protocol: Document 12/29/23 16:22 [facility] (Rec: 12/29/23 18:15 [facility] [id number]) Functional Tests 30 Second Sit to Stand Test Score 7 Five Times Sit to Stand Test Score 21sec PT-OP-G Mobility & Gait Start: 12/29/23 08:16 Freq: Status: Active Protocol: Document 12/29/23 16:22 [facility] (Rec: 12/29/23 17:08 [facility] [id number]) OP Mobility Evaluation Bed Mobility Rolling slower Supine to and from Sit log roll Transfers Sit to Stand uses UEs to 4WW OP Gait Assessment Comments Gait Comments 4WW w/dec RLE stance time and lat leaning PT-OP-M Strength Start: 12/29/23 08:16 Freq: Status: Active Protocol: Document 12/29/23 16:22 [facility] (Rec: 12/29/23 17:08 [facility] [id number]) Hip Strength Hip Manual Muscle Testing Left Flexion (L2) 3 Fair Abduction 4- Good- External Rotation 4- Good- Internal Rotation 4 Good Right Flexion (L2) 3 Fair Abduction 3 Fair External Rotation 4- Good- Internal Rotation 3+ Fair+ Knee Strength Knee Manual Muscle Testing Right Flexion (S2) 4 Good Extension (L3) 4- Good- Left Flexion (S2) 4 Good Extension (L3) 4 Good Ankle/Foot Strength Ankle and Foot Manual Muscle Testing Right Dorsiflexion (L4) 3+ Fair+ Plantarflexion (S1) 3+ Fair+ Inversion 3+ Fair+ Eversion (S1) 3+ Fair+ Left Dorsiflexion (L4) 4- Good- Plantarflexion (S1) 4- Good- Inversion 3- Fair- Eversion (S1) 4- Good- Comments PF tested seated B PT-OP-Q Treatments Start: 12/29/23 08:16 Freq: Status: Active Protocol: Document 12/29/23 16:22 [facility] (Rec: 12/29/23 17:38 [facility] [id number]) Self-Care/Home Management Treatment Education Other Education 8 min: discussed how foot is likely major limit at this time although hips do have some weakness noted. balance is better than it has been at some points in the past. PT-OP-T Assessment and Plan Start: 12/29/23 08:16 Freq: Status: Active Protocol: Document 12/29/23 16:22 [facility] (Rec: 12/29/23 17:08 [facility] [id number]) Physical Therapy Assessment Rehab Potential Rehabilitation Potential Good Evaluation Complexity Number of Personal Factors/Comorbidities 3 or More Number of Body Systems Impaired 4 or More Clinical Presentation at Evaluation Evolving Impairments Impairments Activity Tolerance,Balance, Functional Activities, Functional Mobility,Gait,Pain, Posture,ROM,Soft Tissue Mobility,Strength,Transfers Goals strength Short Term Goal (STG) Pt will be indep w/HEP STG Duration 02/04 Senior Software Manager Goal (LTG) Pt will be able to do 10 sit to stands in 30 sec per age related norms to show dec risk for falls LTG Duration 03/08/24 ORDOÑEZ Impairment 40/56 Senior Software Manager Goal (LTG) Pt will improve ORDOÑEZ score to at least 46/56 to show dec risk for falls LTG Duration 03/08/24 One Short Term Goal (STG) Pt will be able to do transfer from WC to other surfaces w/ FWW or by SPT safely and indep w/o WB on RLE in prep for upcoming surgery STG Duration 02/19 Senior Software Manager Goal (LTG) Pt will report dec of back pain from 4/10 to no higher than 2/10 LTG Duration 03/08/24 Assessment Summary Assessment Pt presents w/LBP, dec balance , R foot pain, and overall weakness w/recent hx of COVID causing secondary infection along w/hx of lumbar fusion, L foot surgery and charcot foot w/use of AFO for stability. Pt will be getting R foot surgery in the next few months and wants to make sure she is strong enough to transfer after. pt would bneefit from skilled PT for dec pain, improving strength, balance and gait at this time. Physical Therapy Plan Frequency and Duration Frequency of Treatment 2x/Week Duration of treatment (weeks) 10 Plan of Care Start Date 12/29/23 Plan of Care End Date 03/08/24 Therapeutic Interventions Therapeutic Interventions Balance Training,Gait Training ,Home Exercise Program,Joint Mobilizations,Manual Therapy, Neuromuscular Re-education, Patient/Caregiver Education, Self-Care/Home Management,Soft Tissue Mobilization,Taping, Therapeutic Activities, Therapeutic Exercises Modalities Cold Pack/Ice Massage,Electric Stimulation,Hot Packs Next Visit Focus/Plan Next Note Type Treatment Note Next Visit Plan train w/SPT and walker transfer for NWB on RLE; review old HEP and look at form and adjust as needed, manual to LB to dec pain; balance activities
--- NOTE | 2023-12-29 18:25 | PT.OPPOC ---
Physical, Occupational & Speech Therapy At [facility] Current Diagnoses Low back pain, unspecified (12/29/23) Muscle weakness (generalized) (12/29/23) Pain in right foot (12/29/23) Unsteadiness on feet (12/29/23) Visit Care Team Role Provider Type Nai Arita DO Attending Provider Physician Family Provider Primary Care Provider Referring Provider Specialty: Family Practice Address: [address] [place] [address], [address], [place], [address] Email: [email or web address] Plan Of Care PT-OP-B Current Condition Start: 12/29/23 08:16 Freq: Status: Active Protocol: Document 12/29/23 16:22 [facility] (Rec: 12/29/23 17:08 [facility] [id number]) Current Condition History of Current Condition Onset Date chronic w/recent worsening Current Complaints LBP, dec balance History of Current Condition Pt reports cannot walk w/o brace on ankle. Pt reports back has been overall good but last week woke up and LLB and L hip, she has been having pain. she is worried about how weak she is and prepping for surgery to be strong for after especailly w/extended NWB. Wants to prep for being able to transfer w/o wt into foot. Went to see Dr. Mcqueen at [facility] for knees and kneecaps are are more lat and R one is subluxing.notes she just needed to work on R quad strength. started chair yoga at the [facility] and she likes it a lot (per channel development director suggestion). Pt reports R shoulder is limited w/overhead motion and has OA. per pt email prior to appt:did very well up to mid-July with back/exercises/pool etc. Then I got COVID mid-July and was not only positive for a month but very sick. I got a secondary infection/bronchitis /asthma flare and sinusitis. I was a mess until the end of August. I was exhausted all of September. I had just gone through 9 months of surgery or infections. I don?t even know what I did in Nov./Dec. but did not get to [place]. I started chair yoga at [facility]. I just started doing home exercises this week. I am just getting over another asthma flare/bronchitis. I have decided to have foot surgery because the pain is worse. I am scheduled for a bone scan next week and see the doctor so I can get scheduled. I don?t think they can get to me until late Feb. or early Mar. I am having some back pain, balance issues and need a refresher on how to get out of wheelchair to bed etc. without using my right leg. Treatment Goals Patient/Caregiver Goals Be able to transfer out of WC w/NWB to RLE, get strength back, balance PT-OP-T Assessment and Plan Start: 12/29/23 08:16 Freq: Status: Active Protocol: Document 12/29/23 16:22 [facility] (Rec: 12/29/23 17:08 [facility] [id number]) Physical Therapy Assessment Rehab Potential Rehabilitation Potential Good Evaluation Complexity Number of Personal Factors/Comorbidities 3 or More Number of Body Systems Impaired 4 or More Clinical Presentation at Evaluation Evolving Impairments Impairments Activity Tolerance,Balance, Functional Activities, Functional Mobility,Gait,Pain, Posture,ROM,Soft Tissue Mobility,Strength,Transfers Goals strength Short Term Goal (STG) Pt will be indep w/HEP STG Duration 02/04 Baggage Agent Goal (LTG) Pt will be able to do 10 sit to stands in 30 sec per age related norms to show dec risk for falls LTG Duration 03/08/24 ORDOÑEZ Impairment 40/56 Baggage Agent Goal (LTG) Pt will improve ORDOÑEZ score to at least 46/56 to show dec risk for falls LTG Duration 03/08/24 One Short Term Goal (STG) Pt will be able to do transfer from WC to other surfaces w/ FWW or by SPT safely and indep w/o WB on RLE in prep for upcoming surgery STG Duration 02/19 [facility] Goal (LTG) Pt will report dec of back pain from 4/10 to no higher than 2/10 LTG Duration 03/08/24 Assessment Summary Assessment Pt presents w/LBP, dec balance , R foot pain, and overall weakness w/recent hx of COVID causing secondary infection along w/hx of lumbar fusion, L foot surgery and charcot foot w/use of AFO for stability. Pt will be getting R foot surgery in the next few months and wants to make sure she is strong enough to transfer after. pt would bneefit from skilled PT for dec pain, improving strength, balance and gait at this time. Physical Therapy Plan Frequency and Duration Frequency of Treatment 2x/Week Duration of treatment (weeks) 10 Plan of Care Start Date 12/29/23 Plan of Care End Date 03/08/24 Therapeutic Interventions Therapeutic Interventions Balance Training,Gait Training ,Home Exercise Program,Joint Mobilizations,Manual Therapy, Neuromuscular Re-education, Patient/Caregiver Education, Self-Care/Home Management,Soft Tissue Mobilization,Taping, Therapeutic Activities, Therapeutic Exercises Modalities Cold Pack/Ice Massage,Electric Stimulation,Hot Packs Next Visit Focus/Plan Next Note Type Treatment Note Next Visit Plan train w/SPT and walker transfer for NWB on RLE; review old HEP and look at form and adjust as needed, manual to LB to dec pain; balance activities Plan of Care Dates Plan of Care Start Date 12/29/23 Plan of Care End Date 03/08/24 Electronically Signed by: Debbie Beyer, PT 12/29/23 [id number] If you are in agreement with this Plan of Care, please return a signed and dated copy. I have reviewed this Plan of Care and certify that the skilled therapy services above are required to meet the patient?s needs. Physician Signature Date Printed Name and Credentials Clinical Instructor Signature Printed Name and Credentials
--- NOTE | 2023-12-31 10:35 | PT.OTN ---
Current Diagnoses Low back pain, unspecified (12/31/23) Muscle weakness (generalized) (12/31/23) Pain in right foot (12/31/23) Unsteadiness on feet (12/31/23) Physical Therapy Treatment Note PT-OP-A Visit Information Start: 12/29/23 08:16 Freq: Status: Active Protocol: Document 12/31/23 09:50 SP (Rec: 12/31/23 10:48 SP [id number]) Out-Patient Physical Therapy Visit Information Visit Information Visit Type Treatment Note Visit Note 04/17 Visit Start Time 09:50 Visit Stop Time 10:35 Visit Number 2 (04/17 since eval) Number of DIFFERENTIAL SPECIALIST Visits 1 PT-OP-B Current Condition Start: 12/29/23 08:16 Freq: Status: Active Protocol: Document 12/29/23 16:22 [facility] (Rec: 12/29/23 17:08 [facility] [id number]) Current Condition History of Current Condition Onset Date chronic w/recent worsening Current Complaints LBP, dec balance History of Current Condition Pt reports cannot walk w/o brace on ankle. Pt reports back has been overall good but last week woke up and LLB and L hip, she has been having pain. she is worried about how weak she is and prepping for surgery to be strong for after especailly w/extended NWB. Wants to prep for being able to transfer w/o wt into foot. Went to see Dr. Mcqueen at [facility] for knees and kneecaps are are more lat and R one is subluxing.notes she just needed to work on R quad strength. started chair yoga at the the [facility] and she likes it a lot (per property site manager suggestion). Pt reports R shoulder is limited w/overhead motion and has OA. per pt email prior to appt:did very well up to mid-July with back/exercises/pool etc. Then I got COVID mid-July and was not only positive for a month but very sick. I got a secondary infection/bronchitis /asthma flare and sinusitis. I was a mess until the end of August. I was exhausted all of September. I had just gone through 9 months of surgery or infections. I don?t even know what I did in Nov./Dec. but did not get to pool. I started chair yoga at [facility]. I just started doing home exercises this week. I am just getting over another asthma flare/bronchitis. I have decided to have foot surgery because the pain is worse. I am scheduled for a bone scan next week and see the doctor so I can get scheduled. I don?t think they can get to me until late Feb. or early Mar. I am having some back pain, balance issues and need a refresher on how to get out of wheelchair to bed etc. without using my right leg. Treatment Goals Patient/Caregiver Goals Be able to transfer out of WC w/NWB to RLE, get strength back, balance PT-OP-C Subjective Start: 12/29/23 08:16 Freq: Status: Active Protocol: Document 12/31/23 09:50 SP (Rec: 12/31/23 10:48 SP [id number]) OP-PT Subjective Patient Comments Patient Comments Pt arrives with for caregiver transfer training with how coordinate/perform NWB on RLE, use AD vs squat pivot transfers with w/c. PT-OP-D Balance Start: 12/29/23 08:16 Freq: Status: Active Protocol: Document 12/29/23 16:22 [facility] (Rec: 12/29/23 17:08 [facility] [id number]) Balance Tests Ordoñez Balance Test Ordoñez Balance Test Score 40 PT-OP-E Functional Tests Start: 12/29/23 18:13 Freq: Status: Active Protocol: Document 12/29/23 16:22 [facility] (Rec: 12/29/23 18:15 [facility] [id number]) Functional Tests 30 Second Sit to Stand Test Score 7 Five Times Sit to Stand Test Score 21sec PT-OP-G Mobility & Gait Start: 12/29/23 08:16 Freq: Status: Active Protocol: Document 12/29/23 16:22 [facility] (Rec: 12/29/23 17:08 [facility] [id number]) OP Mobility Evaluation Bed Mobility Rolling slower Supine to and from Sit log roll Transfers Sit to Stand uses UEs to 4WW OP Gait Assessment Comments Gait Comments 4WW w/dec RLE stance time and lat leaning PT-OP-M Strength Start: 12/29/23 08:16 Freq: Status: Active Protocol: Document 12/29/23 16:22 [facility] (Rec: 12/29/23 17:08 [facility] [id number]) Hip Strength Hip Manual Muscle Testing Left Flexion (L2) 3 Fair Abduction 4- Good- External Rotation 4- Good- Internal Rotation 4 Good Right Flexion (L2) 3 Fair Abduction 3 Fair External Rotation 4- Good- Internal Rotation 3+ Fair+ Knee Strength Knee Manual Muscle Testing Right Flexion (S2) 4 Good Extension (L3) 4- Good- Left Flexion (S2) 4 Good Extension (L3) 4 Good Ankle/Foot Strength Ankle and Foot Manual Muscle Testing Right Dorsiflexion (L4) 3+ Fair+ Plantarflexion (S1) 3+ Fair+ Inversion 3+ Fair+ Eversion (S1) 3+ Fair+ Left Dorsiflexion (L4) 4- Good- Plantarflexion (S1) 4- Good- Inversion 3- Fair- Eversion (S1) 4- Good- Comments PF tested seated B PT-OP-Q Treatments Start: 12/29/23 08:16 Freq: Status: Active Protocol: Document 12/31/23 09:50 SP (Rec: 12/31/23 10:48 SP [id number]) Therapeutic Exercises Sitting Exercises STS Sitting Exercise Name 1. sit<>stand 2. eccentric taps Resistance arms across chest. Equipment Used 20, 19 height w/c Reps/Minutes x10 reps Comments cued hip hinge asc/desc Therapeutic Activity Therapeutic Activity sit>stands Name LUE on FWW, opp UE on seat Reps/Minutes multiple reps Comments RLE fwd vs knee flexion/foot off floor transfer training Name FWW /c Stand step pivot and /S squat pivot Reps/Minutes multiple reps throughout tx Comments Cues pt scoot front seat, RLE off floor fwd vs under her NWB , don gait belt, stand step pivot challenging to hard to hop and trialed lateral ankle shift on LLE with frictional black sneaker; squat pivot transfers bed<>w/c (discussion same using BSC but not able move once in place sitting on) . Tactile & VC hand closest to w/c reach across opposite side while other UE on surface sitting RLE front vs underneath her. wt shift with assist support through gait belt. DIFFERENTIAL SPECIALIST also provided assist to assimulating beign pt for self feedback on how feels to be supported. CUes for proper UE, trunk and LE positioning for success maintain NWB on RLE. Self-Care/Home Management Treatment Education Patient Education Body Mechanics,Home Exercise Program,Joint Protection, Posture,Safety Caregiver Education Pt and education proper donning gait belt at pt waist, body mechanics of both and hand placement and chair (BSC, w/c, bed) for safety post R ankle surgery potential Dec or Lemuel. Requested pre strengthening functional mobility. Cues for set up, proper pt and body mechanics for safety. Other Education Instructed pt and proper measure height of FWW to do home. Arrived with 4WW but understand will not be using post/op due to to mobility for heavy BUE WB. Pt has FWW and BSC home ready for use. PT-OP-T Assessment and Plan Start: 12/29/23 08:16 Freq: Status: Active Protocol: Document 12/31/23 09:50 SP (Rec: 12/31/23 10:48 SP [id number]) Physical Therapy Assessment Goals strength Short Term Goal (STG) Pt will be indep w/HEP STG Duration 02/04 Lead Printer Goal (LTG) Pt will be able to do 10 sit to stands in 30 sec per age related norms to show dec risk for falls LTG Duration 03/08/24 ORDOÑEZ Impairment 40/56 Correction Goal (LTG) Pt will improve ORDOÑEZ score to at least 46/56 to show dec risk for falls LTG Duration 03/08/24 One Impairment sit to stands (7.5 w/hands) Short Term Goal (STG) Pt will be able to do transfer from WC to other surfaces w/ FWW or by SPT safely and indep w/o WB on RLE in prep for upcoming surgery STG Duration 02/19 Correction Goal (LTG) Pt will report dec of back pain from 4/10 to no higher than 2/10 LTG Duration 03/08/24 Assessment Summary Assessment Most of tx spent CGT with pt and on squat pivot transfers, stand step pivot transfers while maintaining NWB RLE for awareness and use of gait belt for support. Pt unable to hop on LLE dueto decreased arm and L ankle strength and compermised jts. Will continue to progress pre op strength and mobility for success with transfers. Pt will bring all HEP HOs from previous PT for awareness what to continue as HEP at this time. Physical Therapy Plan Frequency and Duration Frequency of Treatment 2x/Week Duration of treatment (weeks) 10 Plan of Care Start Date 12/29/23 Plan of Care End Date 03/08/24 Therapeutic Interventions Therapeutic Interventions Balance Training,Gait Training ,Home Exercise Program,Joint Mobilizations,Manual Therapy, Neuromuscular Re-education, Patient/Caregiver Education, Self-Care/Home Management,Soft Tissue Mobilization,Taping, Therapeutic Activities, Therapeutic Exercises Modalities Cold Pack/Ice Massage,Electric Stimulation,Hot Packs Next Visit Focus/Plan Next Note Type Treatment Note Next Visit Plan Continue CGT if needed with and pt. Review old HEP HOs with form and adjust as needed next tx for what to continue. Continue use SL STS /c walker and Stand pivot transfer for NWB on RLE; POC manual to LB to dec pain; balance activities
--- NOTE | 2024-01-25 13:00 | PT.OTN ---
Current Diagnoses Low back pain, unspecified (01/25/24) Muscle weakness (generalized) (01/25/24) Pain in right foot (01/25/24) Unsteadiness on feet (01/25/24) Physical Therapy Treatment Note PT-OP-A Visit Information Start: 12/29/23 08:16 Freq: Status: Active Protocol: Document 01/25/24 11:35 [facility] (Rec: 01/25/24 12:38 [facility] [id number]) Out-Patient Physical Therapy Visit Information Visit Information Visit Type Treatment Note Visit Start Time 11:37 Visit Stop Time 12:17 Visit Number 3 (05/15 since eval) Number of BEREAVEMENT COORDINATOR Visits 0 PT-OP-B Current Condition Start: 12/29/23 08:16 Freq: Status: Active Protocol: Document 12/29/23 16:22 [facility] (Rec: 12/29/23 17:08 [facility] [id number]) Current Condition History of Current Condition Onset Date chronic w/recent worsening Current Complaints LBP, dec balance History of Current Condition Pt reports cannot walk w/o brace on ankle. Pt reports back has been overall good but last week woke up and LLB and L hip, she has been having pain. she is worried about how weak she is and prepping for surgery to be strong for after especailly w/extended NWB. Wants to prep for being able to transfer w/o wt into foot. Went to see Dr. Mcqueen at [facility] for knees and kneecaps are are more lat and R one is subluxing.notes she just needed to work on R quad strength. started chair yoga at the [facility] and she likes it a lot (per technical communicator suggestion). Pt reports R shoulder is limited w/overhead motion and has OA. per pt email prior to appt:did very well up to mid-July with back/exercises/pool etc. Then I got COVID mid-July and was not only positive for a month but very sick. I got a secondary infection/bronchitis /asthma flare and sinusitis. I was a mess until the end of August. I was exhausted all of September. I had just gone through 9 months of surgery or infections. I don?t even know what I did in Nov./Dec. but did not get to pool. [facility] I just started doing home exercises this week. I am just getting over another asthma flare/bronchitis. I have decided to have foot surgery because the pain is worse. I am scheduled for a bone scan next week and see the doctor so I can get scheduled. I don?t think they can get to me until late Feb. or early Mar. I am having some back pain, balance issues and need a refresher on how to get out of wheelchair to bed etc. without using my right leg. Treatment Goals Patient/Caregiver Goals Be able to transfer out of WC w/NWB to RLE, get strength back, balance PT-OP-C Subjective Start: 12/29/23 08:16 Freq: Status: Active Protocol: Document 01/25/24 11:35 [facility] (Rec: 01/25/24 12:38 [facility] [id number]) OP-PT Subjective Patient Comments Patient Comments Pt had bone scan w/a lot of inflamation in feet and when does surgery will do a triple arthrodesis and fuse entire midfoot. Surgeron also worried d/t other screws broke in other foot and would use screws and plates. Currently worried about pt respiratory issues and ability to do SL WB on opp foot d/t it would mess up surgery if WB on R foot. at this time billboard erector helper is doing entire work up re: figuring out if can be on another biologic med. PT-OP-D Balance Start: 12/29/23 08:16 Freq: Status: Active Protocol: Document 12/29/23 16:22 [facility] (Rec: 12/29/23 17:08 [facility] [id number]) Balance Tests Ordoñez Balance Test Ordoñez Balance Test Score 40 PT-OP-E Functional Tests Start: 12/29/23 18:13 Freq: Status: Active Protocol: Document 12/29/23 16:22 [facility] (Rec: 12/29/23 18:15 [facility] [id number]) Functional Tests 30 Second Sit to Stand Test Score 7 Five Times Sit to Stand Test Score 21sec PT-OP-G Mobility & Gait Start: 12/29/23 08:16 Freq: Status: Active Protocol: Document 12/29/23 16:22 [facility] (Rec: 12/29/23 17:08 [facility] [id number]) OP Mobility Evaluation Bed Mobility Rolling slower Supine to and from Sit log roll Transfers Sit to Stand uses UEs to 4WW OP Gait Assessment Comments Gait Comments 4WW w/dec RLE stance time and lat leaning PT-OP-M Strength Start: 12/29/23 08:16 Freq: Status: Active Protocol: Document 12/29/23 16:22 [facility] (Rec: 12/29/23 17:08 [facility] [id number]) Hip Strength Hip Manual Muscle Testing Left Flexion (L2) 3 Fair Abduction 4- Good- External Rotation 4- Good- Internal Rotation 4 Good Right Flexion (L2) 3 Fair Abduction 3 Fair External Rotation 4- Good- Internal Rotation 3+ Fair+ Knee Strength Knee Manual Muscle Testing Right Flexion (S2) 4 Good Extension (L3) 4- Good- Left Flexion (S2) 4 Good Extension (L3) 4 Good Ankle/Foot Strength Ankle and Foot Manual Muscle Testing Right Dorsiflexion (L4) 3+ Fair+ Plantarflexion (S1) 3+ Fair+ Inversion 3+ Fair+ Eversion (S1) 3+ Fair+ Left Dorsiflexion (L4) 4- Good- Plantarflexion (S1) 4- Good- Inversion 3- Fair- Eversion (S1) 4- Good- Comments PF tested seated B PT-OP-Q Treatments Start: 12/29/23 08:16 Freq: Status: Active Protocol: Document 01/25/24 11:35 [facility] (Rec: 01/25/24 12:38 [facility] [id number]) Therapeutic Exercises Sitting Exercises tricep press Side bilateral Equipment Used chair Reps/Minutes 15 Comments mix of BLE under and 1 leg out STS Sitting Exercise Name 1. sit<>stand Resistance arms across chest. Equipment Used chair Reps/Minutes x12 reps Comments cued hip hinge asc/desc Standing Exercises squat Standing Exercise Name mini Side left Equipment Used bar w/chair behind Reps/Minutes 8 Comments pain after 3 on R so R DC SL Standing Exercise Name rot Side left Equipment Used bar Reps/Minutes 20 Comments pain after 3 on R so R DC Therapeutic Activity Therapeutic Activity transfer training Reps/Minutes 8 min Comments Sit pivot transfers to L w/ chairs using RLE only slightly out in front x5 Neuro Re-Education Treatment Balance Activities foam Comments 1. squats x12 on blue foam PT-OP-T Assessment and Plan Start: 12/29/23 08:16 Freq: Status: Active Protocol: Document 01/25/24 11:35 [facility] (Rec: 01/25/24 12:38 [facility] [id number]) Physical Therapy Assessment Goals strength Short Term Goal (STG) Pt will be indep w/HEP STG Duration 02/04 Laser Beam Trim Operator Goal (LTG) Pt will be able to do 10 sit to stands in 30 sec per age related norms to show dec risk for falls LTG Duration 03/08/24 ORDOÑEZ Impairment 40/56 Halfway Goal (LTG) Pt will improve ORDOÑEZ score to at least 46/56 to show dec risk for falls LTG Duration 03/08/24 One Impairment sit to stands (7.5 w/hands) Short Term Goal (STG) Pt will be able to do transfer from WC to other surfaces w/ FWW or by SPT safely and indep w/o WB on RLE in prep for upcoming surgery STG Duration 02/19 Halfway Goal (LTG) Pt will report dec of back pain from 4/10 to no higher than 2/10 LTG Duration 03/08/24 Assessment Summary Assessment Pt unable to do sit pivot transfer w/RLe out in front even w/it wB so has to put it out partially and limit RLE WB . Challenged by new HEP Physical Therapy Plan Frequency and Duration Frequency of Treatment 2x/Week Duration of treatment (weeks) 10 Plan of Care Start Date 12/29/23 Plan of Care End Date 03/08/24 Next Visit Focus/Plan Next Note Type Treatment Note Next Visit Plan cont to work on SPT and work on HEP review and balance and strength to prep for surgery
--- NOTE | 2024-02-01 16:18 | PT.OTN ---
Addendum entered and electronically signed by Elham Hendrix 02/08/24 11:32: Also, stepping in place with FWW CGA X 10 Original Note: Current Diagnoses Low back pain, unspecified (02/01/24) Muscle weakness (generalized) (02/01/24) Pain in right foot (02/01/24) Unsteadiness on feet (02/01/24) Physical Therapy Treatment Note PT-OP-A Visit Information Start: 12/29/23 08:16 Freq: Status: Active Protocol: Document 02/01/24 15:11 AB (Rec: 02/01/24 16:18 AB [id number]) Out-Patient Physical Therapy Visit Information Visit Information Visit Type Treatment Note Visit Start Time 15:18 Visit Stop Time 16:06 Visit Number 4 Number of WATER AND SEWER SYSTEMS SUPERINTENDENT Visits 1 PT-OP-B Current Condition Start: 12/29/23 08:16 Freq: Status: Active Protocol: Document 12/29/23 16:22 [facility] (Rec: 12/29/23 17:08 [facility] [id number]) Current Condition History of Current Condition Onset Date chronic w/recent worsening Current Complaints LBP, dec balance History of Current Condition Pt reports cannot walk w/o brace on ankle. Pt reports back has been overall good but last week woke up and LLB and L hip, she has been having pain. she is worried about how weak she is and prepping for surgery to be strong for after especailly w/extended NWB. Wants to prep for being able to transfer w/o wt into foot. Went to see Dr. Mcqueen at [facility] for knees and kneecaps are are more lat and R one is subluxing.notes she just needed to work on R quad strength. started chair yoga at the [facility] and she likes it a lot (per small kick press operator suggestion). Pt reports R shoulder is limited w/overhead motion and has OA. per pt email prior to appt:did very well up to mid-July with back/exercises/pool etc. Then I got COVID mid-July and was not only positive for a month but very sick. I got a secondary infection/bronchitis /asthma flare and sinusitis. I was a mess until the end of August. I was exhausted all of September. I had just gone through 9 months of surgery or infections. I don?t even know what I did in Nov./Dec. but did not get to independence. I started chair yoga at [facility]. I just started doing home exercises this week. I am just getting over another asthma flare/bronchitis. I have decided to have foot surgery because the pain is worse. I am scheduled for a bone scan next week and see the doctor so I can get scheduled. I don?t think they can get to me until late Feb. or early Mar. I am having some back pain, balance issues and need a refresher on how to get out of wheelchair to bed etc. without using my right leg. Treatment Goals Patient/Caregiver Goals Be able to transfer out of WC w/NWB to RLE, get strength back, balance PT-OP-C Subjective Start: 12/29/23 08:16 Freq: Status: Active Protocol: Document 02/01/24 15:11 AB (Rec: 02/01/24 16:18 AB [id number]) OP-PT Subjective Patient Comments Patient Comments Patient reports she almost had a fall moving from chair to wheelchair. PT-OP-D Balance Start: 12/29/23 08:16 Freq: Status: Active Protocol: Document 12/29/23 16:22 [facility] (Rec: 12/29/23 17:08 [facility] [id number]) Balance Tests Valerio Balance Test Valerio Balance Test Score 40 PT-OP-E Functional Tests Start: 12/29/23 18:13 Freq: Status: Active Protocol: Document 12/29/23 16:22 [facility] (Rec: 12/29/23 18:15 [facility] [id number]) Functional Tests 30 Second Sit to Stand Test Score 7 Five Times Sit to Stand Test Score 21sec PT-OP-G Mobility & Gait Start: 12/29/23 08:16 Freq: Status: Active Protocol: Document 12/29/23 16:22 [facility] (Rec: 12/29/23 17:08 [facility] [id number]) OP Mobility Evaluation Bed Mobility Rolling slower Supine to and from Sit log roll Transfers Sit to Stand uses UEs to 4WW OP Gait Assessment Comments Gait Comments 4WW w/dec RLE stance time and lat leaning PT-OP-M Strength Start: 12/29/23 08:16 Freq: Status: Active Protocol: Document 12/29/23 16:22 [facility] (Rec: 12/29/23 17:08 [facility] [id number]) Hip Strength Hip Manual Muscle Testing Left Flexion (L2) 3 Fair Abduction 4- Good- External Rotation 4- Good- Internal Rotation 4 Good Right Flexion (L2) 3 Fair Abduction 3 Fair External Rotation 4- Good- Internal Rotation 3+ Fair+ Knee Strength Knee Manual Muscle Testing Right Flexion (S2) 4 Good Extension (L3) 4- Good- Left Flexion (S2) 4 Good Extension (L3) 4 Good Ankle/Foot Strength Ankle and Foot Manual Muscle Testing Right Dorsiflexion (L4) 3+ Fair+ Plantarflexion (S1) 3+ Fair+ Inversion 3+ Fair+ Eversion (S1) 3+ Fair+ Left Dorsiflexion (L4) 4- Good- Plantarflexion (S1) 4- Good- Inversion 3- Fair- Eversion (S1) 4- Good- Comments PF tested seated B PT-OP-Q Treatments Start: 12/29/23 08:16 Freq: Status: Active Protocol: Document 02/01/24 15:11 AB (Rec: 02/01/24 16:18 AB [id number]) Therapeutic Exercises Sitting Exercises tricep press Side bilateral Reps/Minutes X10 Comments right LE extended, verbal cues to lower slowly STS Sitting Exercise Name 1. sit<>stand Side bilateral Resistance arms on arm rest from webbed chair Reps/Minutes X12 Comments right LE fwd, CGA to minimal assist Standing Exercises stepping with left UE support Standing Exercise Name to mimic walking holding side of pool Reps/Minutes 10 feet fwd and back X 6 Comments verbal cues to put as little weight as possible through right LE stepping in place Standing Exercise Name bilateral UE on // bars CGA to minimal assist Side left Equipment Used right LE on scale Reps/Minutes X10 Comments verbal cues to decrease weight on right LE as able SL Standing Exercise Name rot Side left Equipment Used bar Reps/Minutes 8 Comments end of session, limited by fatigue Therapeutic Activity Therapeutic Activity transfer training Name scoot pivot Reps/Minutes X6 to left, mat to and from wheel chair Comments CGA on final trial, performed from high to lower seat height on all trials and toward the left PT-OP-T Assessment and Plan Start: 12/29/23 08:16 Freq: Status: Active Protocol: Document 02/01/24 15:11 AB (Rec: 02/01/24 16:18 AB [id number]) Physical Therapy Assessment Goals strength Short Term Goal (STG) Pt will be indep w/HEP STG Duration 02/04 Jukebox Checker Goal (LTG) Pt will be able to do 10 sit to stands in 30 sec per age related norms to show dec risk for falls LTG Duration 03/08/24 Assessment Summary Assessment Patsy was aboe to perform scoot pivot to the left with right LE NWB CGA clearning brake on final trial of scoot pivot, with the tranfer to a lower seat height. Physical Therapy Plan Frequency and Duration Frequency of Treatment 2x/Week Duration of treatment (weeks) 10 Plan of Care Start Date 12/29/23 Plan of Care End Date 03/08/24 Next Visit Focus/Plan Next Note Type Treatment Note Next Visit Plan cont to work on SPT and work on HEP review and balance and strength to prep for surgery. Review balance exercises from HEP
--- NOTE | 2024-02-14 09:51 | PT.OTN ---
Current Diagnoses Low back pain, unspecified (02/14/24) Muscle weakness (generalized) (02/14/24) Pain in right foot (02/14/24) Unsteadiness on feet (02/14/24) Physical Therapy Treatment Note PT-OP-A Visit Information Start: 12/29/23 08:16 Freq: Status: Active Protocol: Document 02/14/24 09:05 [facility] (Rec: 02/14/24 09:51 [facility] [id number]) Out-Patient Physical Therapy Visit Information Visit Information Visit Type Progress Note Visit Note 03/17 Visit Start Time 09:05 Visit Stop Time 09:45 Visit Number 6 Number of SUPERVISOR METER SHOP Visits 0 PT-OP-B Current Condition Start: 12/29/23 08:16 Freq: Status: Active Protocol: Document 12/29/23 16:22 [facility] (Rec: 12/29/23 17:08 [facility] [id number]) Current Condition History of Current Condition Onset Date chronic w/recent worsening Current Complaints LBP, dec balance History of Current Condition Pt reports cannot walk w/o brace on ankle. Pt reports back has been overall good but last week woke up and LLB and L hip, she has been having pain. she is worried about how weak she is and prepping for surgery to be strong for after especailly w/extended NWB. Wants to prep for being able to transfer w/o wt into foot. Went to see Dr. Mcqueen at [facility] for knees and kneecaps are are more lat and R one is subluxing.notes she just needed to work on R quad strength. started chair yoga at the [facility] and she likes it a lot (per neon technician suggestion). Pt reports R shoulder is limited w/overhead motion and has OA. per pt email prior to appt:did very well up to mid-July with back/exercises/pool etc. Then I got COVID mid-July and was not only positive for a month but very sick. I got a secondary infection/bronchitis /asthma flare and sinusitis. I was a mess until the end of August. I was exhausted all of September. I had just gone through 9 months of surgery or infections. I don?t even know what I did in Nov./Dec. but did not get to pool. I started chair yoga at [facility]. I just started doing home exercises this week. I am just getting over another asthma flare/bronchitis. I have decided to have foot surgery because the pain is worse. I am scheduled for a bone scan next week and see the doctor so I can get scheduled. I don?t think they can get to me until late Feb. or early Mar. I am having some back pain, balance issues and need a refresher on how to get out of wheelchair to bed etc. without using my right leg. Treatment Goals Patient/Caregiver Goals Be able to transfer out of WC w/NWB to RLE, get strength back, balance PT-OP-C Subjective Start: 12/29/23 08:16 Freq: Status: Active Protocol: Document 02/14/24 09:05 [facility] (Rec: 02/14/24 09:51 [facility] [id number]) OP-PT Subjective Patient Comments Patient Comments Pt reports she was sore after last session in both feet so did in pool PT-OP-D Balance Start: 12/29/23 08:16 Freq: Status: Active Protocol: Document 02/14/24 09:05 [facility] (Rec: 02/14/24 09:51 [facility] [id number]) Balance Tests Ordoñez Balance Test Ordoñez Balance Test Score 42 PT-OP-E Functional Tests Start: 12/29/23 18:13 Freq: Status: Active Protocol: Document 02/14/24 09:05 [facility] (Rec: 02/14/24 09:51 [facility] [id number]) Functional Tests 30 Second Sit to Stand Test Score 8 Five Times Sit to Stand Test Score 17sec PT-OP-G Mobility & Gait Start: 12/29/23 08:16 Freq: Status: Active Protocol: Document 12/29/23 16:22 [facility] (Rec: 12/29/23 17:08 [facility] [id number]) OP Mobility Evaluation Bed Mobility Rolling slower Supine to and from Sit log roll Transfers Sit to Stand uses UEs to 4WW OP Gait Assessment Comments Gait Comments 4WW w/dec RLE stance time and lat leaning PT-OP-M Strength Start: 12/29/23 08:16 Freq: Status: Active Protocol: Document 12/29/23 16:22 [facility] (Rec: 12/29/23 17:08 [facility] [id number]) Hip Strength Hip Manual Muscle Testing Left Flexion (L2) 3 Fair Abduction 4- Good- External Rotation 4- Good- Internal Rotation 4 Good Right Flexion (L2) 3 Fair Abduction 3 Fair External Rotation 4- Good- Internal Rotation 3+ Fair+ Knee Strength Knee Manual Muscle Testing Right Flexion (S2) 4 Good Extension (L3) 4- Good- Left Flexion (S2) 4 Good Extension (L3) 4 Good Ankle/Foot Strength Ankle and Foot Manual Muscle Testing Right Dorsiflexion (L4) 3+ Fair+ Plantarflexion (S1) 3+ Fair+ Inversion 3+ Fair+ Eversion (S1) 3+ Fair+ Left Dorsiflexion (L4) 4- Good- Plantarflexion (S1) 4- Good- Inversion 3- Fair- Eversion (S1) 4- Good- Comments PF tested seated B PT-OP-Q Treatments Start: 12/29/23 08:16 Freq: Status: Active Protocol: Document 02/14/24 09:05 [facility] (Rec: 02/14/24 09:51 [facility] [id number]) Therapeutic Exercises Sitting Exercises tricep press Side bilateral Reps/Minutes X10 Comments BUE under STS Sitting Exercise Name 1. sit<>stand Side bilateral Reps/Minutes 30 sec Standing Exercises stairs Standing Exercise Name 1. reciprocally up/down 6 in steps 2. recip up/down 4 in steps Side bilateral Reps/Minutes 1. 2x 2. 5x Comments cues for wt shift into LE mini squat Side bilateral Equipment Used rail Reps/Minutes 10 Comments cues as far as can comfortable squat Standing Exercise Name mini SL Side left Equipment Used bar w/chair behind Reps/Minutes 10 SL Standing Exercise Name rot Side left Equipment Used bar Reps/Minutes 10 Neuro Re-Education Treatment Balance Activities testing Comments ORDOÑEZ PT-OP-T Assessment and Plan Start: 12/29/23 08:16 Freq: Status: Active Protocol: Document 02/14/24 09:05 [facility] (Rec: 02/14/24 09:51 [facility] [id number]) Physical Therapy Assessment Goals strength Short Term Goal (STG) Pt will be indep w/HEP 02/13-has some questions STG Duration 02/04 Body Finisher Goal (LTG) Pt will be able to do 10 sit to stands in 30 sec per age related norms to show dec risk for falls 02/13-improved to 8 LTG Duration 03/08/24 ORDOÑEZ Impairment 40/56 Residential Goal (LTG) Pt will improve ORDOÑEZ score to at least 46/56 to show dec risk for falls 02/13-42/56 LTG Duration 03/08/24 One Impairment . Short Term Goal (STG) Pt will be able to do transfer from WC to other surfaces w/ FWW or by SPT safely and indep w/o WB on RLE in prep for upcoming surgery 02/13-still difficult STG Duration 02/19 Residential Goal (LTG) Pt will report dec of back pain from 4/10 to no higher than 2/10 02/13-been fine except one time after PT that one time for 2 days LTG Duration 03/08/24 Assessment Summary Assessment Pt required cues w/exercises and verbal review of exercies in pool done. Improving balance and strength slowly likely relatedt o mult comorbitities.COnt PT for strength and balance Physical Therapy Plan Frequency and Duration Frequency of Treatment 1x/Week Duration of treatment (weeks) 8 Plan of Care Start Date 02/14/24 Plan of Care End Date 04/18/24 Therapeutic Interventions Therapeutic Interventions Balance Training,Gait Training ,Home Exercise Program,Joint Mobilizations,Manual Therapy, Neuromuscular Re-education, Patient/Caregiver Education, Self-Care/Home Management,Soft Tissue Mobilization,Taping, Therapeutic Activities, Therapeutic Exercises Modalities Cold Pack/Ice Massage,Electric Stimulation,Hot Packs Next Visit Focus/Plan Next Note Type Treatment Note Next Visit Plan cont to work on SPT and work on HEP review and balance and strength to prep for surgery as needed. Continue sit to stand from 22 inch and lower seat heights as able, and progress height of surface transferring to as able for scoot pivot transfers.( limit reps due to possibility of thoracic pain with increased reps )
--- NOTE | 2024-02-23 10:41 | PT.OTN ---
Current Diagnoses Low back pain, unspecified (02/23/24) Muscle weakness (generalized) (02/23/24) Pain in right foot (02/23/24) Unsteadiness on feet (02/23/24) Physical Therapy Treatment Note PT-OP-A Visit Information Start: 12/29/23 08:16 Freq: Status: Active Protocol: Document 02/23/24 08:07 [facility] (Rec: 02/23/24 10:41 [facility] [id number]) Out-Patient Physical Therapy Visit Information Visit Information Visit Type Treatment Note Visit Start Time 09:48 Visit Stop Time 10:31 Visit Number 7 Number of E COMMERCE MANAGER Visits 1 PT-OP-B Current Condition Start: 12/29/23 08:16 Freq: Status: Active Protocol: Document 12/29/23 16:22 [facility] (Rec: 12/29/23 17:08 [facility] [id number]) Current Condition History of Current Condition Onset Date chronic w/recent worsening Current Complaints LBP, dec balance History of Current Condition Pt reports cannot walk w/o brace on ankle. Pt reports back has been overall good but last week woke up and LLB and L hip, she has been having pain. she is worried about how weak she is and prepping for surgery to be strong for after especailly w/extended NWB. Wants to prep for being able to transfer w/o wt into foot. Went to see Dr. Mcqueen at [facility] for knees and kneecaps are are more lat and R one is subluxing.notes she just needed to work on R quad strength. started chair yoga at the [facility] and she likes it a lot (per svp marketing suggestion). Pt reports R shoulder is limited w/overhead motion and has OA. per pt email prior to appt:did very well up to mid-July with back/exercises/pool etc. Then I got COVID mid-July and was not only positive for a month but very sick. I got a secondary infection/bronchitis /asthma flare and sinusitis. I was a mess until the end of August. I was exhausted all of September. I had just gone through 9 months of surgery or infections. I don?t even know what I did in Nov./Dec. but did not get to pool. I started chair yoga at [facility]. I just started doing home exercises this week. I am just getting over another asthma flare/bronchitis. I have decided to have foot surgery because the pain is worse. I am scheduled for a bone scan next week and see the doctor so I can get scheduled. I don?t think they can get to me until late Feb. or early Mar. I am having some back pain, balance issues and need a refresher on how to get out of wheelchair to bed etc. without using my right leg. Treatment Goals Patient/Caregiver Goals Be able to transfer out of WC w/NWB to RLE, get strength back, balance PT-OP-C Subjective Start: 12/29/23 08:16 Freq: Status: Active Protocol: Document 02/23/24 08:07 [facility] (Rec: 02/23/24 10:41 [facility] [id number]) OP-PT Subjective Patient Comments Patient Comments Patient reports she went to the gym and pool Wednesday and was not able to sleep Wednesday. Patient reports she has recovered. Patient reports left shoulder is tight thinks she slept on it wrong. PT-OP-D Balance Start: 12/29/23 08:16 Freq: Status: Active Protocol: Document 02/14/24 09:05 [facility] (Rec: 02/14/24 09:51 [facility] [id number]) Balance Tests Ordoñez Balance Test Ordoñez Balance Test Score 42 PT-OP-E Functional Tests Start: 12/29/23 18:13 Freq: Status: Active Protocol: Document 02/14/24 09:05 [facility] (Rec: 02/14/24 09:51 [facility] [id number]) Functional Tests 30 Second Sit to Stand Test Score 8 Five Times Sit to Stand Test Score 17sec PT-OP-G Mobility & Gait Start: 12/29/23 08:16 Freq: Status: Active Protocol: Document 12/29/23 16:22 [facility] (Rec: 12/29/23 17:08 [facility] [id number]) OP Mobility Evaluation Bed Mobility Rolling slower Supine to and from Sit log roll Transfers Sit to Stand uses UEs to 4WW OP Gait Assessment Comments Gait Comments 4WW w/dec RLE stance time and lat leaning PT-OP-M Strength Start: 12/29/23 08:16 Freq: Status: Active Protocol: Document 12/29/23 16:22 [facility] (Rec: 12/29/23 17:08 [facility] [id number]) Hip Strength Hip Manual Muscle Testing Left Flexion (L2) 3 Fair Abduction 4- Good- External Rotation 4- Good- Internal Rotation 4 Good Right Flexion (L2) 3 Fair Abduction 3 Fair External Rotation 4- Good- Internal Rotation 3+ Fair+ Knee Strength Knee Manual Muscle Testing Right Flexion (S2) 4 Good Extension (L3) 4- Good- Left Flexion (S2) 4 Good Extension (L3) 4 Good Ankle/Foot Strength Ankle and Foot Manual Muscle Testing Right Dorsiflexion (L4) 3+ Fair+ Plantarflexion (S1) 3+ Fair+ Inversion 3+ Fair+ Eversion (S1) 3+ Fair+ Left Dorsiflexion (L4) 4- Good- Plantarflexion (S1) 4- Good- Inversion 3- Fair- Eversion (S1) 4- Good- Comments PF tested seated B PT-OP-Q Treatments Start: 12/29/23 08:16 Freq: Status: Active Protocol: Document 02/23/24 08:07 [facility] (Rec: 02/23/24 10:41 [id number]) Gym Equipment Shuttle Balance 1 Details red, normal TRANG, stagger Comments 4 min with head turns and visual scanning Therapeutic Exercises Sitting Exercises seated hip abduction with band Side bilateral Resistance level 3 band Reps/Minutes one minute Comments Increased SLS post without UE use tricep press Side bilateral Reps/Minutes X10 X 2 Comments VC for second set right LE fwd Therapeutic Activity Therapeutic Activity sit to stand Reps/Minutes X2 Comments VC for NWB right from chair to parallel bars, and for UE position, increase difficulty maintaining WB right LE Also hopping in place NWB R LE in parallel bars, unable to clear on 3rd hop. transfer training Name CGA Reps/Minutes X 3 left and right Comments scoot pivot left 2.25 inch rise took 2 scoots, dec clearlance, but able to clear with one scoot with a little less height. with transfer right able to perform level surfaces non NWB right transfer to right. Neuro Re-Education Treatment Balance Activities wall fall Details pillow behind back CGA Reps/Duration X10 foam Details 1. SLS 2. stagger 3. Romberg Reps/Duration 3 min Comments romberg and stagger with eyes closed, CGA PT-OP-T Assessment and Plan Start: 12/29/23 08:16 Freq: Status: Active Protocol: Document 02/23/24 08:07 [facility] (Rec: 02/23/24 10:41 [facility] [id number]) Physical Therapy Assessment Goals strength Short Term Goal (STG) Pt will be indep w/HEP 02/13-has some questions STG Duration 02/04 Speeder Operator Goal (LTG) Pt will be able to do 10 sit to stands in 30 sec per age related norms to show dec risk for falls 02/13-improved to 8 LTG Duration 03/08/24 ORDOÑEZ Impairment 40/56 Speeder Operator Goal (LTG) Pt will improve ORDOÑEZ score to at least 46/56 to show dec risk for falls 02/13-42/ LTG Duration 03/08/24 One Impairment . Short Term Goal (STG) Pt will be able to do transfer from WC to other surfaces w/ FWW or by SPT safely and indep w/o WB on RLE in prep for upcoming surgery 02/13-still difficult STG Duration 02/19 Speeder Operator Goal (LTG) Pt will report dec of back pain from 4/10 to no higher than 2/10 02/13-been fine except one time after PT that one time for 2 days LTG Duration 03/08/24 Assessment Summary Assessment Patsy able to transfer NWB right to the direction left to a slightly raised seat with good clearance one scoot, increased difficulty ie 2 scoots/decreased clearance of buttocks when the difference between seats is a 2.25 inches . Physical Therapy Plan Frequency and Duration Frequency of Treatment 1x/Week Duration of treatment (weeks) 8 Plan of Care Start Date 02/14/24 Plan of Care End Date 04/18/24 Next Visit Focus/Plan Next Note Type Treatment Note Next Visit Plan cont to work on SPT and work on HEP review and balance and strength to prep for surgery as needed. Continue sit to stand from 22 inch and lower seat heights as able, and progress height of surface transferring to as able for scoot pivot transfers.
--- NOTE | 2024-03-06 12:32 | PT.OTN ---
Current Diagnoses Low back pain, unspecified (03/06/24) Muscle weakness (generalized) (03/06/24) Pain in right foot (03/06/24) Unsteadiness on feet (03/06/24) Physical Therapy Treatment Note PT-OP-A Visit Information Start: 12/29/23 08:16 Freq: Status: Active Protocol: Document 03/06/24 11:38 [facility] (Rec: 03/06/24 12:32 [facility] [id number]) Out-Patient Physical Therapy Visit Information Visit Information Visit Type Discharge Summary Visit Start Time 11:35 Visit Stop Time 12:15 Visit Number 8 Number of ELECTRIC METER TESTER HELPER Visits 0 PT-OP-B Current Condition Start: 12/29/23 08:16 Freq: Status: Active Protocol: Document 12/29/23 16:22 [facility] (Rec: 12/29/23 17:08 [facility] [id number]) Current Condition History of Current Condition Onset Date chronic w/recent worsening Current Complaints LBP, dec balance History of Current Condition Pt reports cannot walk w/o brace on ankle. Pt reports back has been overall good but last week woke up and LLB and L hip, she has been having pain. she is worried about how weak she is and prepping for surgery to be strong for after especailly w/extended NWB. Wants to prep for being able to transfer w/o wt into foot. Went to see Dr. Mcqueen at [facility] for knees and kneecaps are are more lat and R one is subluxing.notes she just needed to work on R quad strength. started chair yoga at the [facility] and she likes it a lot (per sheet metal installer suggestion). Pt reports R shoulder is limited w/overhead motion and has OA. per pt email prior to appt:did very well up to mid-July with back/exercises/pool etc. Then I got COVID mid-July and was not only positive for a month but very sick. I got a secondary infection/bronchitis /asthma flare and sinusitis. I was a mess until the end of August. I was exhausted all of September. I had just gone through 9 months of surgery or infections. I don?t even know what I did in Nov./Dec. but did not get to pool. I started chair yoga at [facility]. I just started doing home exercises this week. I am just getting over another asthma flare/bronchitis. I have decided to have foot surgery because the pain is worse. I am scheduled for a bone scan next week and see the doctor so I can get scheduled. I don?t think they can get to me until late Feb. or early Mar. I am having some back pain, balance issues and need a refresher on how to get out of wheelchair to bed etc. without using my right leg. Treatment Goals Patient/Caregiver Goals Be able to transfer out of WC w/NWB to RLE, get strength back, balance PT-OP-C Subjective Start: 12/29/23 08:16 Freq: Status: Active Protocol: Document 03/06/24 11:38 [facility]24 [id number] Subjective Patient Comments Patient Comments Pt reports she thinks she may be ready for DC. Notes back is sore today. PT-OP-D Balance Start: 12/29/23 08:16 Freq: Status: Active Protocol: Document 02/14/24 09:05 [facility] (Rec: 02/14/24 09:51 [facility] [id number]) Balance Tests Ordoñez Balance Test Ordoñez Balance Test Score 42 PT-OP-E Functional Tests Start: 12/29/23 18:13 Freq: Status: Active Protocol: Document 03/06/24 11:38 [facility] (Rec: 03/06/24 12:32 [facility] [id number]) Functional Tests 30 Second Sit to Stand Test Score 11 Five Times Sit to Stand Test Score 13 sec PT-OP-G Mobility & Gait Start: 12/29/23 08:16 Freq: Status: Active Protocol: Document 12/29/23 16:22 [facility] (Rec: 12/29/23 17:08 [facility] [id number]) OP Mobility Evaluation Bed Mobility Rolling slower Supine to and from Sit log roll Transfers Sit to Stand uses UEs to 4WW OP Gait Assessment Comments Gait Comments 4WW w/dec RLE stance time and lat leaning PT-OP-M Strength Start: 12/29/23 08:16 Freq: Status: Active Protocol: Document 12/29/23 16:22 [facility] (Rec: 12/29/23 17:08 [facility] [id number]) Hip Strength Hip Manual Muscle Testing Left Flexion (L2) 3 Fair Abduction 4- Good- External Rotation 4- Good- Internal Rotation 4 Good Right Flexion (L2) 3 Fair Abduction 3 Fair External Rotation 4- Good- Internal Rotation 3+ Fair+ Knee Strength Knee Manual Muscle Testing Right Flexion (S2) 4 Good Extension (L3) 4- Good- Left Flexion (S2) 4 Good Extension (L3) 4 Good Ankle/Foot Strength Ankle and Foot Manual Muscle Testing Right Dorsiflexion (L4) 3+ Fair+ Plantarflexion (S1) 3+ Fair+ Inversion 3+ Fair+ Eversion (S1) 3+ Fair+ Left Dorsiflexion (L4) 4- Good- Plantarflexion (S1) 4- Good- Inversion 3- Fair- Eversion (S1) 4- Good- Comments PF tested seated B PT-OP-Q Treatments Start: 12/29/23 08:16 Freq: Status: Active Protocol: Document 03/06/24 11:38 [facility] (Rec: 03/06/24 12:32 [facility] [id number]) Therapeutic Activity Therapeutic Activity transfer training Reps/Minutes 13 min Comments all to L; working on RLE up and to/from WC to chair or bed of different heights -SBA to min A Manual Therapy Treatment Consent Patient gave verbal consent for manual Yes treatment Soft Tissue Mobilization LB Body Location R QL, B ES and scar Mobilization Type Rolling Body Position Sidelying Neuro Re-Education Treatment Balance Activities testing Comments sit to stand x30sec ORDOÑEZ PT-OP-T Assessment and Plan Start: 12/29/23 08:16 Freq: Status: Active Protocol: Document 03/06/24 11:38 [facility] (Rec: 03/06/24 12:32 [facility] [id number]) Physical Therapy Assessment Goals strength Short Term Goal (STG) Pt will be indep w/HEP 02/13-has some questions STG Duration achieved Fitter Up Goal (LTG) Pt will be able to do 10 sit to stands in 30 sec per age related norms to show dec risk for falls 02/13-improved to 8 LTG Duration achieved to 11 12/30 ORDOÑEZ Impairment 40/56 Fitter Up Goal (LTG) Pt will improve ORDOÑEZ score to at least 46/56 to show dec risk for falls 02/13-42/ LTG Duration achieved to 49 12/30 One Impairment . Short Term Goal (STG) Pt will be able to do transfer from WC to other surfaces w/ FWW or by SPT safely and indep w/o WB on RLE in prep for upcoming surgery 02/13-still difficult 03/06-can when going to/from bed; difficulty w/chair and going uphill STG Duration 02/19 Fitter Up Goal (LTG) Pt will report dec of back pain from 10 to no higher than 2/10 02/13-been fine except one time after PT that one time for 2 days 03/06-mostly achieved but inc pain today LTG Duration 03/08/24 Assessment Summary Assessment Pt has made excellent progress w/PT and is DC d/t meeting most goals at this time. She is indep w/HEP and is DC to HEP to cont to build strength. Encouraged to gradually build up activity and avoid painful activities. Physical Therapy Plan Discharge Physical Therapy Discharge Reasons Goals Met
== END 2024-03-22 08:43 | disposition home or self-care (01) ==
LOC: PHYS 11:30
PROVIDERS: Family Provider Family Medicine; PCP Family Medicine; Referring Provider Family Medicine; Visit Provider Family Medicine
DX: M54.50 Low back pain, unspecified (principal); R26.81 Unsteadiness on feet; M62.81 Muscle weakness (generalized); M79.671 Pain in right foot
CPT/HCPCS: 97110; 97112; 97140; 97162; 97530; 97535

== ENCOUNTER → 2024-03-28 09:05 | Outpatient (CLI) | payer MEDICARE, SELFPAY ==
[2023-02-21 01:38] VITALS: BMI 34.8
--- NOTE | 2024-03-28 09:07 | DI.RAD.S_ITS ---
PROCEDURE: XR HIP W PEL IF DONE LT 2V INDICATIONS: pain. fell 2 wks ago TECHNIQUE: Two views of the left hip were acquired. COMPARISON: None. FINDINGS: Bones: There are no osseous abnormalities. SI and hip joints: Normal in width and alignment without arthritic change. Distal lumbar fusion changes are suboptimally imaged Soft tissues: Small calcification adjacent the left greater trochanter may represent and thus a pathic change IMPRESSION: No posttraumatic change. Negative Dictated by: Rosalio Reeder M.D. on 03/29/2024 at 10:47 Approved by: Rosalio Reeder M.D. on 03/29/2024 at 10:49
--- NOTE | 2024-03-28 09:12 | DI.RAD.S_ITS ---
PROCEDURE: XR LUMBAR SPINE 2-3V INDICATIONS: LOW BACK PAIN TECHNIQUE: 3 views of the lumbar spine were acquired. COMPARISON: [facility], , XR LUMBAR SPINE 2-3V, 03/12/2023, 11:10. FINDINGS: Lumbar spine curvature and alignment: Moderate levoscoliosis of the lower thoracic and lumbar spine appreciated. Bones: Mild chronic appearing L2 compression fracture noted. Disc spaces: L3-4, L4-5 and L5-S1 anterior/posterior fusion changes noted. Soft tissues: No soft tissue swelling, calcification or mass. IMPRESSION: Mild chronic appearing L2 compression fracture-stable Dictated by: Rosalio Reeder M.D. on 03/29/2024 at 10:52 Approved by: Rosalio Reeder M.D. on 03/29/2024 at 10:54
== END ==
PROVIDERS: Family Provider Family Medicine; PCP Family Medicine; Referring Provider Family Medicine; Visit Provider Family Medicine
DX: S32.020A Wedge compression fracture of second lumbar vertebra, initial encounter for closed fracture (principal); S30.0XXA Contusion of lower back and pelvis, initial encounter; M41.9 Scoliosis, unspecified; M25.552 Pain in left hip; Z98.1 Arthrodesis status
CPT/HCPCS: 72100; 73502

== ENCOUNTER 2024-04-19 10:02 | Emergency (ER) | payer MEDICARE, SELFPAY ==
[2023-02-21 01:38] VITALS: BMI 34.8
[2024-04-19 10:11] VITALS: BP 178/76; PULSE 61; RESP 17; TEMP 36.9; O2SAT 98; BMI 33.7
--- NOTE | 2024-04-19 12:21 | DI.RAD.S_ITS ---
PROCEDURE: XR HIP W PEL IF DONE LT 2V INDICATIONS: fall 03/30/24, low back L hip pain rad l leg TECHNIQUE: AP pelvis with lateral view(s) of the left hip(s). COMPARISON: [facility], [place], XR HIP W PEL IF DONE LT 2V, 03/28/2024, 9:12. FINDINGS: Bones: No fractures or dislocations. Pelvic ring appears intact. No suspicious bony lesions. Partially visualized lumbosacral spine fixation hardware. Soft tissues: The visualized bowel gas pattern is normal. No suspicious soft tissue calcifications. IMPRESSION: No acute bony abnormality. Dictated by: Angely Caceres MD, PhD on 04/19/2024 at 12:55 Approved by: Angely Caceres MD, PhD on 04/19/2024 at 12:56
--- NOTE | 2024-04-19 12:22 | ED.RECABL ---
HPI - Recheck/Abnormal Lab/Rx <Nimisha Granger PA-C - Last Filed: 04/19/24 14:14> General Chief Complaint: Recheck/Abnormal Lab/Rx Stated Complaint: fall, sent by pcp Time Seen by Provider: 04/19/24 11:42 Source: patient Mode of arrival: Family Vehicle History of Present Illness HPI narrative: Ms. Hernandez is a very pleasant 73-year-old female with a past medical history of chronic back pain on Percocet, L2 fracture, L3-S1 fusion, rheumatoid arthritis, osteoarthritis, hyperlipidemia, hypertension, asthma who presents to the emergency department for hopes for referral for MRI for low back, left hip, left thigh pain from a fall on 03/30/2024. Patient had a fall on 03/14/2024 and was evaluated by her primary care doctor and had a negative lumbar and hip x-rays at that time. On 03/30/2024 the patient had another fall when ambulating from 1 of her walkers to the next walker. She fell directly on her buttocks. She has been having some diffuse low back pain, left hip pain, left thigh pain and decreased sensation since that fall. Her primary care doctor prescribed her physical therapy after the 2nd fall however physical therapy recommended that the patient have an MRI since she has not had any imaging from the 2nd fall on 03/30/2024. Patient called her primary care office but her PCP is currently out of office and therefore could not order the MRI so she comes to the emergency department with hopes to have an MRI ordered for her. Patient is ambulatory with her walker at baseline, reports no bowel or bladder dysfunction, no fevers or chills, no lightheadedness chest pain or shortness of breath precipitating her fall, no head trauma or loss of consciousness. She has no weakness of the lower extremities. She reports decreased sensation on the left lateral thigh. States she is currently taking meloxicam and Percocet for her pain which is not completely taking the pain away but it is a dull/achy sensation of 3 out 10. Related Data Home Medications Medication Instructions Recorded Confirmed calcium 600 mg (as 1 cap PO QPM ##0 02/04/17 03/28/24 carbonate)-vitamin D3 10 mcg (400 unit) capsule (Calcium with Vitamin D3) Adult One Daily Multivitamin 1 tab DAILY 10/16/18 03/28/24 folic acid 1 mg tablet 1 mg DAILY 11/18/20 03/28/24 cyclosporine 0.05 % eye drops in a 1 drp EYE-BOTH BID 03/16/22 03/28/24 dropperette (Restasis) insulin syringe-needle U-100 1 mL #10 ea 03/16/22 03/28/24 30 gauge x 1/2 (BD Insulin Syringe Ultra-Fine) omega 9-vwa-zfq-fish oil 60 mg-90 1 cap PO BID 03/16/22 03/28/24 mg-500 mg capsule (Fish Oil) azelastine 137 mcg (0.1 %) nasal 1 ml intranasal 04/21/22 03/28/24 spray pantoprazole 20 mg tablet,delayed 20 mg PO DAILY 05/20/22 03/28/24 release acetaminophen 500 mg tablet (Pain 500 mg PO 02/21/23 03/28/24 Reliever Extra Strength (acetaminophen)) abatacept 125 mg/mL subcutaneous mg SUBCUT 03/28/24 03/28/24 auto-injector ([employer] ClickJect) azithromycin 250 mg tablet mg PO 3XW 03/28/24 03/28/24 methotrexate sodium 25 mg/mL mg IM QWEEK 03/28/24 03/28/24 injection solution prednisone 1 mg tablet 3 mg PO DAILY 03/28/24 03/28/24 Previous Rx's Medication Instructions Recorded mupirocin 2 % topical ointment See Rx Instructions .Route 11/23/22 .COMPLEX #15 grams epinephrine 0.3 mg/0.3 mL 0.3 mg (0.3 mL) IM Q5-15M PRN 02/22/23 injection, auto-injector anaphylaxis #2 ea nystatin 100,000 unit/gram topical 1 applic topical BID #30 grams 06/25/23 cream nystatin 100,000 unit/gram topical 1 applic topical BID #60 grams 06/25/23 powder escitalopram oxalate 20 mg tablet 20 mg PO DAILY #90 tabs 08/17/23 (Lexapro) losartan 25 mg tablet 25 mg PO DAILY #90 tabs 08/23/23 atorvastatin 40 mg tablet 40 mg PO DAILY #90 tabs 09/30/23 pregabalin 100 mg capsule (Lyrica) 200 mg (2 x 100 mg) PO BID #120 10/14/23 caps metoprolol succinate 100 mg 100 mg PO DAILY #90 tabs 10/18/23 tablet,extended release 24 hr meloxicam 15 mg tablet 15 mg PO DAILY #30 tabs 03/28/24 methocarbamol 500 mg tablet 500 mg PO TID PRN muscle spasm #60 03/28/24 tabs zolpidem 10 mg tablet 5 mg (1/2 x 10 mg) PO BEDTIME #45 04/06/24 tabs Allergies Allergy/AdvReac Type Severity Reaction Status Date / Time certolizumab pegol Allergy Severe Anaphylaxis Verified 04/19/24 10:19 [From Cimzia] clindamycin [CLINDAMYCIN] Allergy Intermediate ITCHING Verified 04/19/24 10:19 hydroxychloroquine Allergy Unknown HIVES AND Verified 04/19/24 10:19 [From Plaquenil] ITCHING OF FACE Penicillins [PENICILLINS] Allergy Unknown HIVES AND Verified 04/19/24 10:19 ITCHING Review of Systems <Nimisha Granger PA-C - Last Filed: 04/19/24 14:14> Review of Systems ROS Unobtainable: All systems reviewed & are unremarkable except as noted in HPI and below Patient History <Nimisha Granger PA-C - Last Filed: 04/19/24 14:14> Medical History Encounter for subsequent annual wellness visit (AWV) in Medicare patient Hyperlipidemia 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 Lumbar compression fracture Lumbar spinal stenosis Status post fall Knee pain Lumbosacral spondylosis Lumbar radiculopathy Right hip pain Obesity (BMI 30.0-34.9) Balance problem Spondylolisthesis Osteoarthritis (~1979) Chronic cough Peripheral neuropathy Shoulder pain Scoliosis (~1949) Lumbar spine pain (~1979) Fractures Chronic back pain Cervical spine disease (~1979) Carpal tunnel syndrome (~2010) Tinnitus Lymphocytic colitis (~2019) Pulmonary embolism (~2000) Chronic pain syndrome Asthma (~1990) DVT (deep venous thrombosis) (~2000) Benign essential HTN Seronegative rheumatoid arthritis (~2011) Low back pain 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 Asthmatic bronchitis Depression (~1986) GERD (gastroesophageal reflux disease) (~1997) Surgical History Status post lumbar spinal fusion Anesthesia History of cataract removal with insertion of prosthetic lens (~04/08/21) S/P foot surgery, left (~02/16/18) History of carpal tunnel surgery (~06/06/13) Patellar fracture (~04/18/09) Status post left rotator cuff repair (~04/01/08) Status post right rotator cuff repair (~05/05/07) History of foot surgery History of uterine fibroid (~08/07/91) History of arthroscopic knee surgery (~05/07/79) S/P removal of ovarian cyst (~09/05/77) History of left knee surgery (~05/06/77) Temporomandibular joint disorder (~03/08/77) History of plastic surgery (~07/30/04) History of cholecystectomy (02/05/98) H/O total hysterectomy (05/06/00) 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) History of knee surgery (05/05/10) History of left shoulder replacement (02/16/19) Hx of spinal fusion (10/09/18) Hx of tonsillectomy (07/27/1967) H/O eye surgery (02/05/1958) Family History Father History of heart disease Hypertension Hyperlipidemia Mother COPD (chronic obstructive pulmonary disease) Brother COPD (chronic obstructive pulmonary disease) Brother Hyperlipidemia Hypertension Grandfather History of heart disease Grandmother COPD (chronic obstructive pulmonary disease) Asthma Grandfather History of heart disease Grandmother Flu Social History household members: spouse Smoking Status: Never smoker alcohol intake: never substance use type: does not use Smoking Status: Never smoker alcohol intake frequency: 0-2 drinks per day Alcohol type: wine Exam <Nimisha Granger PA-C - Last Filed: 04/19/24 14:14> Narrative Exam Narrative: GENERAL: 73 year old patient appears stated age. Well-developed patient, in no acute distress. HEAD: Atraumatic. Normocephalic. NECK: Trachea midline. Cervical ROM intact. CARDIOVASCULAR: Regular rate. RESPIRATORY: ?Nonlabored respirations. ?Speaking in clear, full sentences. ?Clear to auscultation. GASTROINTESTINAL: Abdomen soft, non-tender, nondistended. EXTREMITIES: No edema or joint tenderness. Right foot/ankle brace in place. BACK: Lumbar scar. Tenderness to palpation of left paralumbar spinal region. Decreased sensation to light touch of the lateral left thigh. No midline spinal tenderness or palpable deformities. No CVA tenderness. NEURO: AOx3. ?Clear speech. ?Moves all 4 extremities appropriately. Ambulates baseline with her walker. Sensation intact to light touch in the groin and bilateral lower extremities but slightly decreased on left lateral thigh. 5/5 knee flexion/extension strength. Bilateral feet are warm and well perfused. SKIN: No rash or erythema of visible areas Initial Vital Signs Initial Vital Signs: Vital Signs Temperature 98.4 F 04/19/24 10:11 Pulse Rate 61 04/19/24 10:11 Respiratory Rate 17 04/19/24 10:11 Blood Pressure 178/76 H 04/19/24 10:11 Pulse Oximetry 98 04/19/24 10:11 Oxygen Delivery Method Room Air 04/19/24 10:11 <Dai Oliveira DO - Last Filed: 04/20/24 19:35> Initial Vital Signs Initial Vital Signs: Vital Signs Temperature 98.4 F 04/19/24 10:11 Pulse Rate 61 04/19/24 10:11 Respiratory Rate 17 04/19/24 10:11 Blood Pressure 178/76 H 04/19/24 10:11 Pulse Oximetry 98 04/19/24 10:11 Oxygen Delivery Method Room Air 04/19/24 10:11 Course <Nimisha Granger PA-C - Last Filed: 04/19/24 14:14> Orders Ordered: ED Orders 04/19/24 12:21 CT lumbar spine wo con Stat XR hip w pel if done LT 2V Stat Vital Signs Vital signs: Vital Signs - 8 hr 04/19/24 10:11 Temperature 98.4 F Pulse Rate 61 Respiratory Rate 17 Blood Pressure 178/76 H Pulse Oximetry 98 Oxygen Delivery Method Room Air <Dai Oliveira DO - Last Filed: 04/20/24 19:35> Orders Ordered: ED Orders 04/19/24 12:21 CT lumbar spine wo con Stat XR hip w pel if done LT 2V Stat Vital Signs Vital signs: Vital Signs - 8 hr 04/19/24 10:11 Temperature 98.4 F Pulse Rate 61 Respiratory Rate 17 Blood Pressure 178/76 H Pulse Oximetry 98 Oxygen Delivery Method Room Air MDM - Recheck/Abnormal Lab/Rx <Nimisha Granger PA-C - Last Filed: 04/19/24 14:14> Medical Records Attestation: I reviewed the patient's medical records. Imaging Data XR Pelvis and L Hip: Radiologist's Impression: PROCEDURE: XR HIP W PEL IF DONE LT 2V INDICATIONS: fall 03/30/24, low back L hip pain rad l leg TECHNIQUE: AP pelvis with lateral view(s) of the left hip(s). COMPARISON: [facility], [place], XR HIP W PEL IF DONE LT 2V, 03/28/2024, 9:12. FINDINGS: Bones: No fractures or dislocations. Pelvic ring appears intact. No suspicious bony lesions. Partially visualized lumbosacral spine fixation hardware. Soft tissues: The visualized bowel gas pattern is normal. No suspicious soft tissue calcifications. IMPRESSION: No acute bony abnormality. Lumbar CT: Radiologist's Impression: PROCEDURE: CT LUMBAR SPINE WO CON INDICATIONS: fall 03/30/24, low back pain rad L leg; hx L2 fx l3-s1 fusi TECHNIQUE: Noncontrast 3 mm thick sections acquired from the T12 level to the sacrum. Sagittal and coronal reformats were constructed. For radiation dose reduction, the following was used: automated exposure control. COMPARISON: [facility], CT, CT LUMBAR SPINE WO CON, 10/29/2022, 9:30. FINDINGS: Image quality: Excellent. Bones: Stable L4-S1 PI LF postsurgical changes. Orthopedic hardware is in expected position and is intact. No lucencies at the bone-hardware interface. Stable L4 and L5 laminectomy postsurgical changes. There is normal bony alignment. Stable chronic L2 compression fracture that results in approximately 25% loss of normal superior endplate height. No acute vertebral body compression fractures. Spine degenerative disc disease and facet arthropathy. No severe central canal stenosis. No severe neural foraminal stenosis. No suspicious lytic or blastic bony lesions. No pars defects. Soft tissues: No retroperitoneal masses or hematomas. Visualized aorta is normal in caliber. Diverticula in the visualized sigmoid colon without evidence of diverticulitis. IMPRESSION: Stable postsurgical changes. Multilevel degenerative disc disease. Multilevel facet arthropathy. No fracture. No acute osseous lesion. If symptoms and/or clinical suspicion for pathology persists, evaluation with CT or MRI should be considered for further assessment. [facility] Narrative Medical decision making narrative: 73-year-old female with a past medical history of chronic back pain on Percocet, L2 fracture, L3-S1 fusion, rheumatoid arthritis, osteoarthritis, hyperlipidemia, hypertension, asthma who presents to the emergency department for hopes for referral for MRI for low back, left hip, left thigh pain from a fall on 03/30/2024. Differential diagnosis includes but is not limited to lumbar compression fracture, hip fracture, lumbar radiculopathy, muscle strain, lumbar strain, acute on chronic pain, etc. On exam the patient is in no acute distress, nontoxic appearing, lower extremities neurovascularly intact, she is ambulatory with her walker. She is having some dull achy pain since a fall on 03/30/2024 with some decreased sensation in the left lateral thigh but no bowel or bladder incontinence, no saddle anesthesia, no fevers, no lower extremity weakness. Patient did not want to come to the emergency room however physical therapy would not continue with her until she has MRI imaging. At this time there is no signs of cauda equina syndrome and no indication for emergent MRI however we will proceed with lumbar CT and hip x-ray to rule out gross bony abnormality. Hip and pelvis x-ray reveals no acute bony abnormality. Lumbar spine CT scan reveals stable postsurgical changes, multilevel degenerative disc disease, multilevel facet arthropathy, no fracture, no acute osseous lesion, no severe central canal stenosis, no severe neural foraminal stenosis. Patient was provided with printed copy of her reports. Very reassured by findings. She will follow up with her PCP and neurosurgeon, we discussed strict ED return precautions. Recommended she continues her prescribed home pain medications, gentle exercise. She verbalized understanding of all information, is ambulatory and stable for discharge home. Discharge Plan Departure Patient Disposition: Home Clinical Impression: Left lumbar radiculopathy Fall Qualifiers: Encounter type: initial encounter Qualified Code(s): W19.XXXA - Unspecified fall, initial encounter Instructions: DI for Lumbar Radiculopathy Activity Restrictions/Additional Instructions: Thank you for coming to the emergency department. Today you were evaluated with a CT scan of your lumbar spine and an x-ray of your hip and pelvis. Imaging revealed no acute fractures and no severe central canal stenosis. I would like you to follow up with your primary care doctor and your neurosurgeon for further evaluation and more advanced imaging. In the meantime please continue taking your prescribed pain medications, rest, performed gentle exercise, return to the emergency department immediately if you develop any new or worsening symptoms, bowel or bladder dysfunction, weakness of the leg or other concerns. Please follow up with your primary care doctor within the next 2-3 days for ER follow-up. (If you do not have a PCP you can call [phone]. ?to schedule an appointment with an [facility] Primary Care Provider) IF YOU DEVELOP ANY NEW OR WORSENING SYMPTOMS, RETURN TO THE ER! Please read the attached instructions, they highlight more specific treatments and interventions for you at home. Thank you for letting me participate in your care, Nimisha Granger PA-C Prescriptions: No Action calcium carbonate-vitamin D3 [Calcium 600 with Vitamin D3] 600 mg(1,500mg) -400 unit capsule 1 cap PO QPM Qty: 0 mupirocin 2 % ointment See Rx Instructions .ROUTE .COMPLEX Qty: 15 0RF Rx Instructions: APPLY TO THE AFFECTED AREA TWICE DAILY. CLEAN AND DRY AREA PRIOR TO USE; escitalopram oxalate [Lexapro] 20 mg tablet 20 mg PO DAILY Qty: 90 3RF losartan 25 mg tablet 25 mg PO DAILY Qty: 90 3RF atorvastatin 40 mg tablet 40 mg PO DAILY Qty: 90 3RF pregabalin [Lyrica] 100 mg capsule 200 mg PO BID Qty: 120 5RF metoprolol succinate 100 mg tablet extended release 24 hr 100 mg PO DAILY Qty: 90 1RF zolpidem 10 mg tablet 5 mg PO BEDTIME Qty: 45 1RF nystatin 100,000 unit/gram cream 1 applic topical BID Qty: 30 11RF nystatin 100,000 unit/gram powder 1 applic topical BID Qty: 60 11RF [employer] 125 mg/mL auto-injector SUBCUT Patient Comments: [NO ORIGINAL SIG] methotrexate sodium 25 mg/mL solution IM QWEEK Patient Comments: [NO ORIGINAL SIG] azithromycin 250 mg tablet PO 3XW Rx Instructions: wednesday, Wednesday, wednesday prednisone 1 mg tablet 3 mg PO DAILY Patient Comments: [NO ORIGINAL SIG] methocarbamol 500 mg tablet 500 mg PO TID PRN (Reason: muscle spasm) Qty: 60 11RF meloxicam 15 mg tablet 15 mg PO DAILY Qty: 30 5RF Rx Instructions: with food azelastine 137 mcg (0.1 %) aerosol,spray 1 ml intranasal Adult One Daily Multivitamin 1 tab DAILY folic acid 1 mg Tablet 1 mg DAILY acetaminophen [Pain Reliever ES(acetaminophn)] 500 mg tablet 500 mg PO epinephrine 0.3 mg/0.3 mL auto-injector 0.3 mg IM Q5-15M PRN (Reason: anaphylaxis) Qty: 2 0RF Rx Instructions: do not exceed 3 doses per episode pantoprazole 20 mg tablet,delayed release (DR/EC) 20 mg PO DAILY (DME) insulin syringe-needle U-100 [BD Insulin Syringe Ultra-Fine] 1 mL 30 gauge x 1/2 syringe See Rx Instructions .ROUTE .MEDSUPPLY Qty: 10 Patient Comments: USE 1 SYRINGE ONCE A WEEK Rx Instructions: As directed cyclosporine [Restasis] 0.05 % dropperette 1 drp EYE-BOTH BID omega 8-kdi-zde-fish oil [Fish Oil] 60-90-500 mg capsule 1 cap PO BID Referrals: Nai Arita DO [Primary Care Provider] - Stand Alone Forms: Patient Portal/API/Survey ED Sign-out <Dai Oliveira DO - Last Filed: 04/20/24 19:35> Cosign ED Attending Cosignature Attestation: I was immediately available in the department for consultation.
== END 2024-04-19 14:17 | disposition home or self-care (01) ==
PROVIDERS: Emergency Provider Physician Assistant; Family Provider Family Medicine; PCP Family Medicine
DX: M54.16 Radiculopathy, lumbar region (principal); M25.552 Pain in left hip; E78.5 Hyperlipidemia, unspecified; I10 Essential (primary) hypertension; Z88.0 Allergy status to penicillin; W19.XXXA Unspecified fall, initial encounter
CPT/HCPCS: 72131; 73502; 99284

== ENCOUNTER 2024-04-26 11:40 | Emergency (ER) | payer MEDICARE, SELFPAY ==
[2023-02-21 01:38] VITALS: BMI 34.8
[2024-04-26 11:45] VITALS: BP 136/70; PULSE 58; RESP 14; TEMP 36.7; O2SAT 95; BMI 33.5
--- NOTE | 2024-04-26 11:54 | DI.CT.S_ITS ---
PROCEDURE: CT HEAD/BRAIN WO CON INDICATIONS: Syncope TECHNIQUE: Noncontrast 4.5 mm thick angled axial sections acquired from the foramen magnum to the vertex, with coronal and sagittal reformats. For radiation dose reduction, the following was used: automated exposure control, adjustment of mA and/or kV according to patient size. COMPARISON: None. FINDINGS: Image quality: Diagnostic CSF spaces: Basal cisterns are patent. Lateral ventricles are symmetric. Volume: Vascular calcifications. Periventricular white matter disease is commonly seen with chronic microangiopathy. Volume loss is present. These findings are moderate Brain: Focal mineralization in the right basal ganglia. No acute hemorrhage. No gross loss of rodriguez-white differentiation. Craniofacial structures: No displaced fracture. Sinuses are clear. Orbits are intact. IMPRESSION: No acute intracranial pathology. If there is high concern for parenchymal pathology, consider further evaluation with MRI. Dictated by: Jose Guadalupe Gabriel M.D. on 04/26/2024 at 12:48 Approved by: Jose Guadalupe Gabriel M.D. on 04/26/2024 at 12:49
--- NOTE | 2024-04-26 11:54 | DI.MRI.S_ITS ---
PROCEDURE: MR LUMBAR SPINE WO CON INDICATIONS: Back pain TECHNIQUE: Noncontrast sagittal T1 spin echo and T2 fast echo, sagittal STIR, and T2 fast spin echo through the lumbar spine. In cases with scoliosis, additional coronal T2 fast spin echo may be performed. COMPARISON: [facility], MR, MR LUMBAR SPINE WO CON, 10/12/2022, 16:12. FINDINGS: Image quality: Excellent. Alignment and Curvature: Levo scoliotic curvature. Grade 1 anterolisthesis of L3 on L4. Bone Marrow: L2 compression deformity may be mildly progressed compared to prior with associated edema, consistent with acute or subacute etiology. Postoperative changes from L3 through S1 posterior spinal fixation, discectomy and laminectomy. Spinal Cord: Conus medullaris terminates at the L1-L2 level. Visualized cord demonstrates normal signal and size. Paraspinous Soft Tissues: No paravertebral masses. T12-L1: Normal appearance. L1-L2: Disc desiccation and mild disc bulge. Facet arthropathy and thickening of ligamentum flavum. Mild central canal stenosis. Mild bilateral neural foraminal stenosis is progressed. L2-L3: Disc desiccation and posterior disc bulge with superimposed left subarticular disc extrusion extending superiorly. Progression of moderate to severe central canal stenosis. Severe left lateral recess stenosis with likely impingement the descending left L3 nerve root. [id number] bilateral neural foraminal stenosis. L3-L4: Postoperative changes. No central canal stenosis. Probable moderate right neural foraminal stenosis and mild left neural foraminal stenosis, improved compared to prior. L4-L5: Postoperative changes. No central canal stenosis. Probable mild bilateral neural foraminal stenosis is similar to prior. L5-S1: Postoperative changes. No central canal stenosis. Stable moderate left and mild right neural foraminal stenosis. IMPRESSION: 1. Multilevel degenerative changes of the lumbar spine as described above with postoperative changes from L3 through S1 posterior spinal fixation, discectomy and laminectomy. 2. Progression of now moderate to severe central canal stenosis at L2-L3 due to a left subarticular recess disc extrusion. This results in severe narrowing of the left lateral recess with likely impingement the descending left L3 nerve root. 3. Progression of degenerative changes at L1-2 with mild central canal stenosis and mild bilateral neural foraminal stenosis. 4. Other degenerative changes are similar compared to prior exam, as described above. Dictated by: Jose Luis Pastrana M.D. on 04/26/2024 at 14:06 Approved by: Jose Luis Pastrana M.D. on 04/26/2024 at 14:13
--- NOTE | 2024-04-26 11:54 | EKG_ITS ---
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
--- NOTE | 2024-04-26 12:00 | ED_ITS ---
HPI - Back Pain/Injury General Chief Complaint: Back Pain/Injury Stated Complaint: Had a fall last night , bladder issues Time Seen by Provider: 04/26/24 11:52 History of Present Illness HPI Narrative: Patient brought here by from home. Patient had syncopal episode 11:00 p.m. last night. Duration less than 1 minute. No seizure activity. heard her call for help and found her in the living room. No known injury. Patient does not recall how she passed out. She does recall getting her pajamas on and trying to get to her lift chair. She has chronic back pain with prior history of lumbar fusion. Followed by surgeon/neurosurgeon at [facility]. She is scheduled today for lumbar spine MRI without contrast at 1:30 p.m. here at this hospital. Denies any pre event chest pain headache dizziness abdominal pain back pain numbness tingling or weakness. She did have bowel and bladder incontinence, had 1 episode of bowel incontinence yesterday and bladder incontinence this morning. Denies any recent illness. No history of heart attack strokes or seizures. Related Data Home Medications Medication Instructions Recorded Confirmed calcium 600 mg (as 1 cap PO QPM ##0 02/04/17 03/28/24 carbonate)-vitamin D3 10 mcg (400 unit) capsule (Calcium with Vitamin D3) Adult One Daily Multivitamin 1 tab DAILY 10/16/18 03/28/24 folic acid 1 mg tablet 1 mg DAILY 11/18/20 03/28/24 cyclosporine 0.05 % eye drops in a 1 drp EYE-BOTH BID 03/16/22 03/28/24 dropperette (Restasis) insulin syringe-needle U-100 1 mL #10 ea 03/16/22 03/28/24 30 gauge x 1/2 (BD Insulin Syringe Ultra-Fine) omega 6-ouj-rna-fish oil 60 mg-90 1 cap PO BID 03/16/22 03/28/24 mg-500 mg capsule (Fish Oil) azelastine 137 mcg (0.1 %) nasal 1 ml intranasal 04/21/22 03/28/24 spray pantoprazole 20 mg tablet,delayed 20 mg PO DAILY 05/20/22 03/28/24 release acetaminophen 500 mg tablet (Pain 500 mg PO 02/21/23 03/28/24 Reliever Extra Strength (acetaminophen)) abatacept 125 mg/mL subcutaneous mg SUBCUT 03/28/24 03/28/24 auto-injector (Orencia ClickJect) azithromycin 250 mg tablet mg PO 3XW 03/28/24 03/28/24 methotrexate sodium 25 mg/mL mg IM QWEEK 03/28/24 03/28/24 injection solution prednisone 1 mg tablet 3 mg PO DAILY 03/28/24 03/28/24 Previous Rx's Medication Instructions Recorded mupirocin 2 % topical ointment See Rx Instructions .Route 11/23/22 .COMPLEX #15 grams epinephrine 0.3 mg/0.3 mL 0.3 mg (0.3 mL) IM Q5-15M PRN 02/22/23 injection, auto-injector anaphylaxis #2 ea nystatin 100,000 unit/gram topical 1 applic topical BID #30 grams 06/25/23 cream nystatin 100,000 unit/gram topical 1 applic topical BID #60 grams 06/25/23 powder escitalopram oxalate 20 mg tablet 20 mg PO DAILY #90 tabs 08/17/23 (Lexapro) losartan 25 mg tablet 25 mg PO DAILY #90 tabs 08/23/23 atorvastatin 40 mg tablet 40 mg PO DAILY #90 tabs 09/30/23 meloxicam 15 mg tablet 15 mg PO DAILY #30 tabs 03/28/24 methocarbamol 500 mg tablet 500 mg PO TID PRN muscle spasm #60 03/28/24 tabs zolpidem 10 mg tablet 5 mg (1/2 x 10 mg) PO BEDTIME #45 04/06/24 tabs pregabalin 100 mg capsule (Lyrica) 200 mg (2 x 100 mg) PO BID #120 04/24/24 caps metoprolol succinate 100 mg 100 mg PO DAILY #90 tabs 05/01/24 tablet,extended release 24 hr Allergies Allergy/AdvReac Type Severity Reaction Status Date / Time certolizumab pegol Allergy Severe Anaphylaxis Verified 04/26/24 11:45 [From Cimzia] clindamycin [CLINDAMYCIN] Allergy Intermediate ITCHING Verified 04/26/24 11:45 hydroxychloroquine Allergy Unknown HIVES AND Verified 04/26/24 11:45 [From Plaquenil] ITCHING OF FACE Penicillins [PENICILLINS] Allergy Unknown HIVES AND Verified 04/26/24 11:45 ITCHING Review of Systems Review of Systems Narrative: GENERAL: Negative chills, fatigue, malaise, fever, sweats. HEENT: Negative sinus pain, ear pain, sore throat RESPIRATORY: Negative dyspnea, cough CARDIOVASCULAR: Negative chest pain, palpitations GASTROINTESTINAL: Negative nausea, vomiting, abdominal pain : Negative dysuria, frequency, hematuria MUSCULOSKELETAL: Negative muscle or bony pain SKIN: Negative rash, skin lesions NEUROLOGIC: Negative any new weakness, numbness, positive syncope, negative headache slurred speech facial droop ROS Unobtainable: All systems reviewed & are unremarkable except as noted in HPI and below Patient History Medical History Encounter for subsequent annual wellness visit (AWV) in Medicare patient Hyperlipidemia 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 Lumbar compression fracture Lumbar spinal stenosis Status post fall Knee pain Lumbosacral spondylosis Lumbar radiculopathy Right hip pain Obesity (BMI 30.0-34.9) Balance problem Spondylolisthesis Osteoarthritis (~1979) Chronic cough Peripheral neuropathy Shoulder pain Scoliosis (~1949) Lumbar spine pain (~1979) Fractures Chronic back pain Cervical spine disease (~1979) Carpal tunnel syndrome (~2010) Tinnitus Lymphocytic colitis (~2019) Pulmonary embolism (~2000) Chronic pain syndrome Asthma (~1990) DVT (deep venous thrombosis) (~2000) Benign essential HTN Seronegative rheumatoid arthritis (~2011) Low back pain 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 Asthmatic bronchitis Depression (~1986) GERD (gastroesophageal reflux disease) (~1997) Surgical History Status post lumbar spinal fusion Anesthesia History of cataract removal with insertion of prosthetic lens (~04/08/21) S/P foot surgery, left (~02/16/18) History of carpal tunnel surgery (~06/06/13) Patellar fracture (~04/18/09) Status post left rotator cuff repair (~04/01/08) Status post right rotator cuff repair (~05/05/07) History of foot surgery History of uterine fibroid (~08/07/91) History of arthroscopic knee surgery (~05/07/79) S/P removal of ovarian cyst (~09/05/77) History of left knee surgery (~05/06/77) Temporomandibular joint disorder (~03/08/77) History of plastic surgery (~07/30/04) History of cholecystectomy (02/05/98) H/O total hysterectomy (05/06/00) 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) History of knee surgery (05/05/10) History of left shoulder replacement (02/16/19) Hx of spinal fusion (10/09/18) Hx of tonsillectomy (07/27/1967) H/O eye surgery (02/05/1958) Family History Father History of heart disease Hypertension Hyperlipidemia Mother COPD (chronic obstructive pulmonary disease) Brother COPD (chronic obstructive pulmonary disease) Brother Hyperlipidemia Hypertension Grandfather History of heart disease Grandmother COPD (chronic obstructive pulmonary disease) Asthma Grandfather History of heart disease Grandmother Flu Social History household members: spouse Smoking Status: Never smoker alcohol intake: never substance use type: does not use Smoking Status: Never smoker alcohol intake frequency: 0-2 drinks per day Alcohol type: wine Exam Narrative Exam Narrative: GENERAL: in no distress, not toxic not dyspneic HEAD: Normocephalic. Nontender face scalp skull. No bruising seen. EYES: Pupils equal round ENT: Mucous membranes moist. NECK: Trachea midline. No midline tenderness or step-off of the cervical spine/lumbar spine. No bruising seen on the back. CARDIOVASCULAR: Regular rate and rhythm RESPIRATORY: Clear to auscultation. Breath sounds equal bilaterally. No wheezes, rales, or rhonchi. GASTROINTESTINAL: Abdomen soft, non-tender EXTREMITIES: No gross deformities. BACK: No flank tenderness. NEURO: AOx4. 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 Negative pronator drift. Fast exam is negative SKIN: Warm and dry PSYCH: Not anxious, is cooperative Initial Vital Signs Initial Vital Signs: Vital Signs Temperature 98.1 F 04/26/24 11:45 Pulse Rate 58 L 04/26/24 11:45 Respiratory Rate 14 04/26/24 11:45 Blood Pressure 136/70 04/26/24 11:45 Pulse Oximetry 95 04/26/24 11:45 Oxygen Delivery Method Room Air 04/26/24 11:45 Course Orders Ordered: Discontinued Medications Sodium Chloride (Sodium Chloride 0.9% Flush) 50 ml IV NOW ONE Stop: 04/26/24 11:55 Last Admin: 04/26/24 14:39 Dose: Not Given Documented By: MARINA Vital Signs Vital signs: Vital Signs - 8 hr 04/26/24 11:45 04/26/24 14:57 Temperature 98.1 F Pulse Rate 58 L 62 Respiratory Rate 14 18 Blood Pressure 136/70 151/77 H Pulse Oximetry 95 99 Oxygen Delivery Method Room Air Room Air MDM - Back Pain/Injury Lab Data 04/26/24 12:00 04/26/24 12:00 Labs: Lab Results 04/26/24 04/26/24 Range/Units 12:00 14:53 WBC 4.1 L (4.5-11.0) X10^3/uL RBC 4.27 (4.0-5.2) X10^6/uL Hgb 13.7 (12.0-16.0) g/dL Hct 41.1 (36-46) % MCV 96.3 (80-100) fL MCH 32.2 (26-34) PG MCHC 33.4 (30-36) % RDW 15.9 H (11.6-14.8) % Plt Count 168 (150-400) X10^3/uL Neut % (Auto) 52.5 (50-75) % Lymph % (Auto) 32.7 (25-40) % [place] % (Auto) 12.2 (3-14) % Eos % (Auto) 1.5 L (2-4) % Baso % (Auto) 1.1 (0-2) % Neut # (Auto) 2100 (2796-7907) /uL Lymph # (Auto) 1300 (0546-5391) /uL [place] # (Auto) 500 (0-900) /uL Eos # (Auto) 100 (0-450) /uL Baso # (Auto) 0 (0-100) /uL PT 11.0 (9.4-12.5) SECONDS INR 1.0 (0.9-1.3) APTT 32 (25.1-36.5) SECONDS D-Dimer 697 H (<500) ng/ml Sodium 136 L (137-145) mmol/L Potassium 4.1 (3.4-5.1) mmol/L Chloride 104 (98-107) mmol/L Carbon Dioxide 22 (22-32) mmol/L BUN 23 H (7-17) mg/dL Creatinine 0.77 (0.52-1.04) mg/dL Estimated GFR > 60 (>60) mL/min BUN/Creatinine Ratio 29.9 H (6-22) Glucose 120 H (80-110) mg/dL Calcium 9.4 (8.4-10.2) mg/dL Total Bilirubin 1.1 (0.2-1.3) mg/dL AST 46 H (14-36) IU/L ALT 46 H (<35) IU/L Alkaline Phosphatase 57 (38-126) U/L Total Creatine Kinase 50 (30-135) U/L Troponin I < 0.012 (0.01-0.034) ng/mL Total Protein 6.8 (6.3-8.2) g/dL Albumin 4.4 (3.5-5.0) g/dL Globulin 2.4 (1.7-4.1) g/dL Albumin/Globulin Ratio 1.8 (1.0-2.8) Urine Color Yellow Urine Appearance Clear Urine pH 6.0 (4.5-8.0) Ur Specific [place] 1.010 (1.000-1.035) Urine Protein Negative (Negative) Urine Glucose (UA) Negative (Negative) g/dL Urine Ketones Negative (NEGATIVE) Urine Occult Blood Negative (Negative) Urine Nitrate Negative (Negative) Urine Bilirubin Negative (NEGATIVE) Urine Urobilinogen 0.2 (0.2) E.U./dL Ur Leukocyte Esterase Negative (NEGATIVE) Urine RBC None seen (0-5/HPF) Urine WBC None seen (0-5/HPF) Ur Squamous Epith Cells None seen (0-5/HPF) Urine Bacteria None seen (None) Ur Culture Indicated? Cult not indicated Vol Urine Centrifuged 10ml (spun) Imaging Data CT scan - head: Radiologist's Impression: [address] [address] [address] Scan Report Signed Patient: Patsy Hernandez MR#: [id number] : 1950 Acct:[id number] Age/Sex: 73 / F Date of Service: 04/26/24 Loc: ED Accession Number: [id number] Procedure: CT head/brain wo con Ordering Provider: Micky Rodriguez MD PROCEDURE: CT HEAD/BRAIN WO CON INDICATIONS: Syncope TECHNIQUE: Noncontrast 4.5 mm thick angled axial sections acquired from the foramen magnum to the vertex, with coronal and sagittal reformats. For radiation dose reduction, the following was used: automated exposure control, adjustment of mA and/or kV according to patient size. COMPARISON: None. FINDINGS: Image quality: Diagnostic CSF spaces: Basal cisterns are patent. Lateral ventricles are symmetric. Volume: Vascular calcifications. Periventricular white matter disease is commonly seen with chronic microangiopathy. Volume loss is present. These findings are moderate Brain: Focal mineralization in the right basal ganglia. No acute hemorrhage. No gross loss of rodriguez-white differentiation. Craniofacial structures: No displaced fracture. Sinuses are clear. Orbits are intact. IMPRESSION: No acute intracranial pathology. If there is high concern for parenchymal pathology, consider further evaluation with MRI. Dictated by: Jose Guadalupe Gabriel M.D. on 04/26/2024 at 12:48 Approved by: Jose Guadalupe Gabriel M.D. on 04/26/2024 at 12:49 CT scan - chest: Radiologist's Impression: [place] [address] CT Scan Report Signed Patient: Patsy Hernandez MR#: [id number] : 1950 Acct:[id number] Age/Sex: 73 / F Date of Service: 04/26/24 Loc: ED Accession Number: [id number] Procedure: CT angio chest PE protocol Ordering Provider: Micky Rodriguez MD PROCEDURE: CT ANGIO CHEST PE PROTOCOL INDICATIONS: Syncope/elevated D-dimer TECHNIQUE: After the administration of intravenous contrast, 2 mm thick sections acquired from the pulmonary apices to the posterior costophrenic angles. 3-dimensional maximum intensity projection (MIP) coronal and sagittal reformats were then acquired through the thorax. For radiation dose reduction, the following was used: automated exposure control, adjustment of mA and/or kV according to patient size. COMPARISON: [facility], CT, CT ANGIO CHEST PE PROTOCOL, 03/22/2023, 16:44. FINDINGS: Image quality: Diagnostic. Pulmonary arteries: Pulmonary arteries are normal in size, and demonstrate no intraluminal filling defects to suggest central pulmonary embolism. Lower Neck: No enlarged lymph nodes. Thyroid: No thyroid nodules which require sonographic follow up, per consensus guidelines. Axillae: No enlarged lymph nodes. Chest Wall: Unremarkable. Bones: Unremarkable. Lungs and Pleura: Stable appearing focal area of interstitial thickening within the posterior right lung apex most likely scarring. No focal airspace opacity or consolidation. No suspicious pulmonary nodules or masses. No evidence of pneumothorax or pleural effusion. Heart: Heart size is normal. No pericardial effusion. Thoracic Vessels: No aortic aneurysm. Mediastinum and Rosi: No enlarged lymph nodes. Esophagus: No wall thickening. No hiatal hernia. Upper Abdomen: Stable size of 2 cm low-density lesion within segment 4 of the liver most likely a simple cyst. The left kidney is relatively atrophic with respect to the right and partially imaged. IMPRESSION: 1. No evidence of pulmonary artery thromboembolism. 2. No acute abnormality within the chest. Dictated by: Davis King M.D. on 04/26/2024 at 13:19 Approved by: Davis King M.D. on 04/26/2024 at 13:42 MRI lumbar spine: Radiologist's Impression: [place] [address] Magnetic Resonance Report Signed Patient: Patsy Hernandez MR#: [id number] : 1950 Acct:[id number] Age/Sex: 73 / F Date of Service: 04/26/24 Loc: ED Accession Number: [id number] Procedure: MR lumbar spine wo con Ordering Provider: Micky Rodriguez MD PROCEDURE: MR LUMBAR SPINE WO CON INDICATIONS: Back pain TECHNIQUE: Noncontrast sagittal T1 spin echo and T2 fast echo, sagittal STIR, and T2 fast spin echo through the lumbar spine. In cases with scoliosis, additional coronal T2 fast spin echo may be performed. COMPARISON: [facility], , MR LUMBAR SPINE WO CON, 10/12/2022, 16:12. FINDINGS: Image quality: Excellent. Alignment and Curvature: Levo scoliotic curvature. Grade 1 anterolisthesis of L3 on L4. Bone Marrow: L2 compression deformity may be mildly progressed compared to prior with associated edema, consistent with acute or subacute etiology. Postoperative changes from L3 through S1 posterior spinal fixation, discectomy and laminectomy. Spinal Cord: Conus medullaris terminates at the L1-L2 level. Visualized cord demonstrates normal signal and size. Paraspinous Soft Tissues: No paravertebral masses. T12-L1: Normal appearance. L1-L2: Disc desiccation and mild disc bulge. Facet arthropathy and thickening of ligamentum flavum. Mild central canal stenosis. Mild bilateral neural foraminal stenosis is progressed. L2-L3: Disc desiccation and posterior disc bulge with superimposed left subarticular disc extrusion extending superiorly. Progression of moderate to severe central canal stenosis. Severe left lateral recess stenosis with likely impingement the descending left L3 nerve root. [id number] bilateral neural foraminal stenosis. L3-L4: Postoperative changes. No central canal stenosis. Probable moderate right neural foraminal stenosis and mild left neural foraminal stenosis, improved compared to prior. L4-L5: Postoperative changes. No central canal stenosis. Probable mild bilateral neural foraminal stenosis is similar to prior. L5-S1: Postoperative changes. No central canal stenosis. Stable moderate left and mild right neural foraminal stenosis. IMPRESSION: 1. Multilevel degenerative changes of the lumbar spine as described above with postoperative changes from L3 through S1 posterior spinal fixation, discectomy and laminectomy. 2. Progression of now moderate to severe central canal stenosis at L2-L3 due to a left subarticular recess disc extrusion. This results in severe narrowing of the left lateral recess with likely impingement the descending left L3 nerve root. 3. Progression of degenerative changes at L1-2 with mild central canal stenosis and mild bilateral neural foraminal stenosis. 4. Other degenerative changes are similar compared to prior exam, as described above. Dictated by: Jose Luis Pastrana M.D. on 04/26/2024 at 14:06 Approved by: Jose Luis Pastrana M.D. on 04/26/2024 at 14:13 [facility] Narrative Medical decision making narrative: Patient brought here by from home. Patient had syncopal episode 11:00 p.m. last night. Duration less than 1 minute. No seizure activity. heard her call for help and found her in the living room. No known injury. Patient does not recall how she passed out. She does recall getting her pajamas on and trying to get to her lift chair. She has chronic back pain with prior history of lumbar fusion. Followed by surgeon/neurosurgeon at [facility]. She is scheduled today for lumbar spine MRI without contrast at 1:30 p.m. here at this hospital. Denies any pre event chest pain headache dizziness abdominal pain back pain numbness tingling or weakness. She did have bowel and bladder incontinence, had 1 episode of bowel incontinence yesterday and bladder incontinence this morning. Denies any recent illness. No history of heart attack strokes or seizures. After history and exam CBC CMP troponin D-dimer CT head MR lumbar spine urinalysis [facility] Medical records reviewed: No recent visit for this complaint Differential considered: Includes but not limited to aortic dissection pulmonary embolism cauda equina STEMI non-STEMI dehydration arrhythmia Lab Test results independently reviewed as above. Pertinent findings: WBC 4.1 hemoglobin 13.7 INR 1.0 D-dimer 697 sodium 136 potassium 4.1 BUN 23 creatinine 0.77 GFR greater than 60 glucose 120 AST 46 ALT 46 troponin less than 0.012 Independently reviewed EKG sinus bradycardia rate 57 Imaging studies independently reviewed: CT head no acute finding CT chest no acute finding lumbar spine MRI no acute finding/cauda equina, Consultations: None indicated at this time Treatments: None indicated at this time Re-evaluations: 3:05 p.m.. Updated patient results. They are reassuring. No cauda equina seen. She admits she has not been sleeping very well due to her chronic pain. She is on a lot of medications and pain medications she states. She is working with her primary care to reduce these medications. Patient likely had vasovagal episode, fatigue inducing. Exam and laboratory studies imaging studies are reassuring. Return precautions reviewed. She desires discharge home. Discussion: Appropriate for discharge home exam is reassuring she states she has had very little sleep recently. Also she is on a lot of medications that can make it worse. Patient neurologically intact at time of discharge. Return precautions reviewed. She desires discharge home. Diagnosis: Syncope Discharge Plan Departure Patient Disposition: Home Clinical Impression: Syncope and collapse Instructions: DI for Syncope in Adults (Fainting) Activity Restrictions/Additional Instructions: Your exam and laboratory studies are reassuring. Your MRI of your lumbar spine does not show cauda equina. Please see your spine surgeon for follow up as scheduled. It is possible your fainting episode may be due to fatigue and medications as we discussed. Please do see your family doctor as planned to reduce your medications. Also see your family doctor for outpatient scheduling for Zio patch/Holter monitoring and echocardiogram of the heart. Return if worse if any questions or concerns. Prescriptions: No Action calcium carbonate-vitamin D3 [Calcium 600 with Vitamin D3] 600 mg(1,500mg) - 400 unit capsule 1 cap PO QPM Qty: 0 mupirocin 2 % ointment See Rx Instructions .ROUTE .COMPLEX Qty: 15 0RF Rx Instructions: APPLY TO THE AFFECTED AREA TWICE DAILY. CLEAN AND DRY AREA PRIOR TO USE; escitalopram oxalate [Lexapro] 20 mg tablet 20 mg PO DAILY Qty: 90 3RF losartan 25 mg tablet 25 mg PO DAILY Qty: 90 3RF atorvastatin 40 mg tablet 40 mg PO DAILY Qty: 90 3RF zolpidem 10 mg tablet 5 mg PO BEDTIME Qty: 45 1RF pregabalin [Lyrica] 100 mg capsule 200 mg PO BID Qty: 120 5RF metoprolol succinate 100 mg tablet extended release 24 hr 100 mg PO DAILY Qty: 90 1RF nystatin 100,000 unit/gram cream 1 applic topical BID Qty: 30 11RF nystatin 100,000 unit/gram powder 1 applic topical BID Qty: 60 11RF Orencia ClickJect 125 mg/mL auto-injector SUBCUT Patient Comments: [NO ORIGINAL SIG] methotrexate sodium 25 mg/mL solution IM QWEEK Patient Comments: [NO ORIGINAL SIG] azithromycin 250 mg tablet PO 3XW Rx Instructions: wednesday, Wednesday, wednesday prednisone 1 mg tablet 3 mg PO DAILY Patient Comments: [NO ORIGINAL SIG] methocarbamol 500 mg tablet 500 mg PO TID PRN (Reason: muscle spasm) Qty: 60 11RF meloxicam 15 mg tablet 15 mg PO DAILY Qty: 30 5RF Rx Instructions: with food azelastine 137 mcg (0.1 %) aerosol,spray 1 ml intranasal Adult One Daily Multivitamin 1 tab DAILY folic acid 1 mg Tablet 1 mg DAILY acetaminophen [Pain Reliever ES(acetaminophn)] 500 mg tablet 500 mg PO epinephrine 0.3 mg/0.3 mL auto-injector 0.3 mg IM Q5-15M PRN (Reason: anaphylaxis) Qty: 2 0RF Rx Instructions: do not exceed 3 doses per episode pantoprazole 20 mg tablet,delayed release (DR/EC) 20 mg PO DAILY (DME) insulin syringe-needle U-100 [BD Insulin Syringe Ultra-Fine] 1 mL 30 gauge x 1/2 syringe See Rx Instructions .ROUTE .MEDSUPPLY Qty: 10 Patient Comments: USE 1 SYRINGE ONCE A WEEK Rx Instructions: As directed cyclosporine [Restasis] 0.05 % dropperette 1 drp EYE-BOTH BID omega 8-lwd-owz-fish oil [Fish Oil] 60-90-500 mg capsule 1 cap PO BID Referrals: Nai Arita DO [Primary Care Provider] - Stand Alone Forms: Patient Portal/API/Survey
[2024-04-26 12:13] LABS: Add Manual Diff / Slide Review NO; Basophils Absolute Auto 0 /uL (0-100); Basophils Percent Auto 1.1 % (0-2); Eosinophils Absolute Auto 100 /uL (0-450); Eosinophils Percent Auto 1.5 % (2-4); Hematocrit 41.1 % (36-46); Hemoglobin 13.7 g/dL (12.0-16.0); Lymphocytes Absolute Auto 1300 /uL (1100-4500); Lymphocytes Percent Auto 32.7 % (25-40); Mean Corpuscular HGB Conc 33.4 % (30-36); Mean Corpuscular Hemoglobin 32.2 PG (26-34); Mean Corpuscular Volume 96.3 fL (80-100); Monocytes Absolute Auto 500 /uL (0-900); Monocytes Percent Auto 12.2 % (3-14); Neutrophils Absolute Auto 2100 /uL (1500-7000); Neutrophils Percent Auto 52.5 % (50-75); Platelet Count 168 X10^3/uL (150-400); Red Blood Cell Count 4.27 X10^6/uL (4.0-5.2); Red Cell Distribution Width 15.9 % (11.6-14.8); White Blood Cell Count 4.1 X10^3/uL (4.5-11.0)
[2024-04-26 12:20] LABS: D Dimer 697 ng/ml (<500)
[2024-04-26 12:21] LABS: PTT Partial Thromboplastin Tim 32 SECONDS (25.1-36.5)
[2024-04-26 12:23] LABS: Alanine Aminotransferase 46 IU/L (<35); Albumin 4.4 g/dL (3.5-5.0); Albumin Globulin Ratio 1.8 (1.0-2.8); Alkaline Phosphatase 57 U/L (38-126); Aspartate Aminotransferase 46 IU/L (14-36); BUN Creatinine Ratio 29.9 (6-22); Bilirubin Total 1.1 mg/dL (0.2-1.3); Blood Urea Nitrogen 23 mg/dL (7-17); Calcium 9.4 mg/dL (8.4-10.2); Carbon Dioxide 22 mmol/L (22-32); Chloride 104 mmol/L (98-107); Creatine Kinase 50 U/L (30-135); Estimated Glomerular Filt Rate > 60 mL/min (>60); Globulin 2.4 g/dL (1.7-4.1); Glucose 120 mg/dL (80-110); HEMOLYSIS < 15 (0-50); Potassium 4.1 mmol/L (3.4-5.1); Sodium 136 mmol/L (137-145); Total Protein 6.8 g/dL (6.3-8.2)
[2024-04-26 12:34] LABS: Troponin I < 0.012 ng/mL (0.01-0.034)
--- NOTE | 2024-04-26 12:36 | DI.CT.S_ITS ---
PROCEDURE: CT ANGIO CHEST PE PROTOCOL INDICATIONS: Syncope/elevated D-dimer TECHNIQUE: After the administration of intravenous contrast, 2 mm thick sections acquired from the pulmonary apices to the posterior costophrenic angles. 3-dimensional maximum intensity projection (MIP) coronal and sagittal reformats were then acquired through the thorax. For radiation dose reduction, the following was used: automated exposure control, adjustment of mA and/or kV according to patient size. COMPARISON: [facility], CT, CT ANGIO CHEST PE PROTOCOL, 03/22/2023, 16:44. FINDINGS: Image quality: Diagnostic. Pulmonary arteries: Pulmonary arteries are normal in size, and demonstrate no intraluminal filling defects to suggest central pulmonary embolism. Lower Neck: No enlarged lymph nodes. Thyroid: No thyroid nodules which require sonographic follow up, per consensus guidelines. Axillae: No enlarged lymph nodes. Chest Wall: Unremarkable. Bones: Unremarkable. Lungs and Pleura: Stable appearing focal area of interstitial thickening within the posterior right lung apex most likely scarring. No focal airspace opacity or consolidation. No suspicious pulmonary nodules or masses. No evidence of pneumothorax or pleural effusion. Heart: Heart size is normal. No pericardial effusion. Thoracic Vessels: No aortic aneurysm. Mediastinum and Rosi: No enlarged lymph nodes. Esophagus: No wall thickening. No hiatal hernia. Upper Abdomen: Stable size of 2 cm low-density lesion within segment 4 of the liver most likely a simple cyst. The left kidney is relatively atrophic with respect to the right and partially imaged. IMPRESSION: 1. No evidence of pulmonary artery thromboembolism. 2. No acute abnormality within the chest. Dictated by: Davis King M.D. on 04/26/2024 at 13:19 Approved by: Davis King M.D. on 04/26/2024 at 13:42
[2024-04-26 14:57] VITALS: BP 151/77; PULSE 62; RESP 18; O2SAT 99
[2024-04-26 15:07] LABS: Appearance Urine UA CLEAR; Bilirubin Urine UA NEGATIVE (NEGATIVE); Color Urine UA YELLOW; Glucose Urine UA NEGATIVE (Negative); Ketones Urine UA NEGATIVE (NEGATIVE); Leukocyte Esterase Urine UA NEGATIVE (NEGATIVE); Nitrite Urine UA NEGATIVE (Negative); Occult Blood Urine UA NEGATIVE (Negative); Protein Urine UA NEGATIVE (Negative); Urobilinogen Urine UA 0.2 E.U./dL (0.2)
[2024-04-26 15:23] LABS: Bacteria Urine None Seen; Culture Indicated Urine Cult Not Indicated; RBC Urine None Seen (0-5/HPF); Squamous Epithelial Cell Urine None Seen (0-5/HPF); Urine Volume 10mL (spun); WBC Urine None Seen (0-5/HPF)
== END 2024-04-26 15:20 | disposition home or self-care (01) ==
PROVIDERS: Emergency Provider Emergency Medicine; Family Provider Family Medicine; PCP Family Medicine
DX: R55 Syncope and collapse (principal); M54.50 Low back pain, unspecified; R00.1 Bradycardia, unspecified; I49.8 Other specified cardiac arrhythmias
CPT/HCPCS: 36415; 70450; 71275; 72148; 80053; 81001; 82550; 84484; 85025; 85379; 85610; 85730; 93005; 99284; Q9967

== ENCOUNTER → 2024-05-19 12:43 | Outpatient (CLI) | payer MEDICARE, SELFPAY ==
[2023-02-21 01:38] VITALS: BMI 34.8
--- NOTE | 2024-05-19 12:44 | DI.US.S_ITS ---
PROCEDURE: US RENAL COMPLETE INDICATIONS: LT KIDNEY CYST SEEN ON MRI TECHNIQUE: Real-time scanning was performed of the kidneys and bladder, with image documentation. COMPARISON: Merged With [facility], MR, MR LUMBAR SPINE WO CON, 01/08/2022, 16:49. Merged With [facility], MR, MR LUMBAR SPINE WO CON, 10/12/2022, 16:12. Merged With [facility], CT, CT ANGIO CHEST PE PROTOCOL, 04/26/2024, 12:41. Merged With [facility], MR, MR LUMBAR SPINE WO CON, 04/26/2024, 13:13. FINDINGS: Kidneys: Kidneys are asymmetric in size. Right kidney measures 11.5 cm long; left kidney measures 7.8 cm long. Right renal cortical thickness is 2.1 cm; left renal cortical thickness is 0.7 cm. Renal cortical echotexture is normal. Bowel gas obscured clear visualization of portions of the upper left kidney, the area of recent prior MR concern. No hydronephrosis or nephrolithiasis. No suspicious solid mass lesions. Bladder: Pre-void bladder volume is 198 mL. Post-void residual is 9.0 mL. Pre-void images demonstrate no intraluminal masses or stones. On pre-void images, neither ureteral jets are noted with color Doppler interrogation. (Of note, ureteral jets may not be detectable in up to 25% of cases due to insufficient differences in specific gravity between ureteral and bladder urine). Miscellaneous: No free pelvic fluid. IMPRESSION: 1. Asymmetric renal size, normal on the right and mildly atrophic on the left. No renal calculus or obstruction is found. 2. Overlying bowel gas obscured clear visualization of the upper margin of the left kidney, the area of current clinical concern. However, on review of prior CT scanning 04/26/24 and prior MR scanning 10/12/22 the left upper renal pole cortical cyst can be clearly seen and was previously present. This cyst also can be seen on a prior MRI from 01/08/22. No evidence of solid component. No specific follow-up is recommended. Dictated by: Adan Purdy M.D. on 05/19/2024 at 15:37 Approved by: Adan Purdy M.D. on 05/19/2024 at 15:46
== END ==
PROVIDERS: Family Provider Family Medicine; PCP Family Medicine; Visit Provider Internal Medicine
DX: N28.1 Cyst of kidney, acquired (principal); N26.1 Atrophy of kidney (terminal)
CPT/HCPCS: 76770

== ENCOUNTER 2024-05-23 14:30 | Outpatient (RCR) | payer MEDICARE, SELFPAY ==
[2023-02-21 01:38] VITALS: BMI 34.8
--- NOTE | 2024-04-18 15:50 | PT.OIE ---
Addendum entered and electronically signed by Bhakti Grayson, PT 04/18/24 15:51: send to PCP Lyla Original Note: Current Diagnoses Pain in left hip (04/18/24) Stiffness of left hip, not elsewhere classified (04/18/24) Low back pain, unspecified (04/18/24) Difficulty in walking, not elsewhere classified (04/18/24) Unsteadiness on feet (04/18/24) Other abnormalities of gait and mobility (04/18/24) Weakness (04/18/24) Past Medical History (Last Updated 12/27/23 @ 09:37 by Nai Arita DO) Asthma (~1990) Asthmatic bronchitis Balance problem Benign essential HTN Carpal tunnel syndrome (~2010) Cervical spine disease (~1979) Chronic back pain Chronic bilateral low back pain with bilateral sciatica Chronic cough Chronic pain syndrome Depression (~1986) 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 DVT (deep venous thrombosis) (~2000) Encounter for subsequent annual wellness visit (AWV) in Medicare patient Fractures GERD (gastroesophageal reflux disease) (~1997) Hyperlipidemia Knee pain Low back pain Lumbar compression fracture Lumbar radiculopathy Lumbar spinal stenosis Lumbar spine pain (~1979) Lumbosacral spondylosis Lymphocytic colitis (~2019) Obesity (BMI 30.0-34.9) Osteoarthritis (~1979) Peripheral neuropathy Pulmonary embolism (~2000) Right hip pain Sacroiliac joint dysfunction Scoliosis (~1949) Seronegative rheumatoid arthritis (~2011) Shoulder pain Spondylolisthesis Status post fall Tinnitus Past Surgical History (Last Reviewed 11/09/23 @ 11:45 by Yamil Dumont MD) Anesthesia H/O eye surgery (02/05/1958) H/O total hysterectomy (05/06/00) History of arthroscopic knee surgery (~05/07/79) History of carpal tunnel surgery (~06/06/13) History of cataract removal with insertion of prosthetic lens (~04/08/21) History of cholecystectomy (02/05/98) History of foot surgery History of knee surgery (05/05/10) History of left knee surgery (~05/06/77) History of left shoulder replacement (02/16/19) History of plastic surgery (~07/30/04) 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) History of uterine fibroid (~08/07/91) Hx of spinal fusion (10/09/18) Hx of tonsillectomy (07/27/1967) Patellar fracture (~04/18/09) S/P foot surgery, left (~02/16/18) S/P removal of ovarian cyst (~09/05/77) Status post left rotator cuff repair (~04/01/08) Status post lumbar spinal fusion Status post right rotator cuff repair (~05/05/07) Temporomandibular joint disorder (~03/08/77) Visit Care Team Role Provider Type Nai Arita DO Attending Provider Physician Family Provider Primary Care Provider Referring Provider Specialty: Family Practice Address: [address] [place] [address], [address], [facility] Email: [email or web address] Physical Therapy Initial Evaluation PT-OP-A Visit Information Start: 04/17/24 16:20 Freq: Status: Active Protocol: Document 04/18/24 11:31 NM (Rec: 04/18/24 12:31 NM [id number]) Out-Patient Physical Therapy Visit Information Visit Information Visit Type Initial Evaluation Visit Start Time 11:33 PT-OP-B Current Condition Start: 04/17/24 16:20 Freq: Status: Active Protocol: Document 04/18/24 11:31 [facility] (Rec: 04/18/24 12:31 NM [id number]) Current Condition History of Current Condition Onset Date March 2024 Current Complaints pain, decreased mobility c/ 4ww, standing/sitting tolerance History of Current Condition Pt has a significant past medical history including severe OA, RA, 2 back fusions, foot fusion, RTC, shoulder replacement, knee replacements , planning to have R foot fused. Pt reports that she fell while ambulating on her ramp while using her 4WW on her house on 03/14/24. Pt landed while kneeling on R leg, LLE went straight in front. Pt got up and was fine, no pain for 3-4 days; however, then went to gym and worked out ( seated squat machine) then states that could not do anything afterward. Since injury, pt reports L hip pain in posterior hip with radiation to front of thighs, numbness along L lateral leg ( did not have before hand) from hip to knee. Has been sleeping in lift chair, unable to sleep in a bed due to pain . At gym, pt did nustep, adductor and abductor machine, leg press (sitting)- reports no weight, but thinks that what set her over. Yesterday, pt put her feet over ball and rolled back back/forth 3x, figure 4 in chair, squats; reports that further exacerbated symptoms. Pt also reports that she had a second fall a week ago, she reports that she fell flat on her buttocks while reaching for her walker while changing walkers; occurred after she saw her MD/PCP, got her xrays. Pt reports that her numbness has worsened since her second fall; however, thinks (but reports not sure it was present following her first fall). Has not contacted her lumbar surgeon, but has reached out again to PCP. Current Functional Impairments (Reported) Functional Limitations- ADL's pt reports limitations with all ADLs, sleeping Functional Limitations- Mobility/Gait decreased WB on LLE due to pain, limited gait and standing tolerance in addition to sitting tolerance PT-OP-C Subjective Start: 04/17/24 16:20 Freq: Status: Active Protocol: Document 04/18/24 11:31 NM (Rec: 04/18/24 12:31 NM [id number]) OP-PT Subjective Patient Comments Patient Comments pt consents to participate in PT evaluation Patient Questionnaires Lower Extremity Functional Scale LEFS Score 13/80 Oswestry Low Back Index Oswestry Score 50/100 OP-PT Pain Assessment Location lumbar spine Scale Used Numeric (0 - 10) Description Aching,Dull Pain Aggravating Factors Position,Activity,Exercise, Standing,Sitting,Walking Other Pain Alleviating Factors sitting in chair, ice L hip Pain Location Details posterolateral hip, anterior thigh Intensity 9 Scale Used Numeric (0 - 10) Description Aching,Throbbing Radiating Location numbness Pain Aggravating Factors Position,ADL's,Activity, Exercise,Standing,Sitting, Walking Other Pain Aggravating Factors weight bearing (inc lying down or on L side) Pain Alleviating Factors Medication,Position,Sitting Comments Pain Comments no change with tylenol, meloxicam; has been doing percocet and methacarbomol PT-OP-F Manual Assessment Start: 04/17/24 16:20 Freq: Status: Active Protocol: Document 04/18/24 11:31 NM (Rec: 02/11/25 12:31 NM [id number]) Manual Assessments Soft Tissue Assessment Soft Tissue Mobility Assessment Tenderness along glutes, quad, hip flexors Joint Mobility Assessment Joint Mobility Assessment Hypomobility of lumbar spine following fusion. Tender along L SIJ, lumbar spine PT-OP-G Mobility & Gait Start: 04/17/24 16:20 Freq: Status: Active Protocol: Document 04/18/24 11:31 NM (Rec: 04/18/24 12:31 NM [id number]) OP Mobility Evaluation Bed Mobility Rolling antalgic, log roll Supine to and from Sit antalgic, via log roll Transfers Sit to Stand c/ UE assist to 4ww and increased pain OP Gait Assessment Gait Gait Assistance Required: Standby Assistance Distance (Feet) 150 Assistive Devices Assistive Device Gait Belt,4 Wheeled Walker Gait Deviations General Gait Pattern Antalgic,Flexed Trunk Comments Gait Comments antalgic PT-OP-H Neuro Start: 04/17/24 16:20 Freq: Status: Active Protocol: Document 04/18/24 11:31 NM (Rec: 04/18/24 12:31 NM [id number]) Sensation Evaluation Comments Summary Comments decreased to light touch: L anterior and lateral thigh decreased sharp/dull: L ant thigh decreased sharp/dull, light touch: R lower leg PT-OP-J Posture/Palpation/Skin Start: 04/17/24 16:20 Freq: Status: Active Protocol: Document 04/18/24 11:31 NM (Rec: 04/18/24 14:07 NM [id number]) Posture Evaluation Position Standing Head/C-Spine Posture Forward Head T-Spine Posture Increased Kyphosis Shoulder Posture (L) Rounded,(R) Rounded Arm Posture (L) Externally Rotated,(R) Externally Rotated Weight Distribution Weight Shifted Right,Decreased Wt.Bear on (L) Hip Posture (L) Externally Rotated,(R) Externally Rotated Knee Posture (L) Genu Valgus,(R) Genu Valgus Palpation Assessment Location lumbar spine Palpation Details Tenderness over lumbar spine especially distally toward sacrum, L>R SIJ No tenderness over coccyx L hip Palpation Details Tenderness over greater trochanter posteriorly along glute to SIJ Tenderness over anterior thigh , from mid quad to distal hip flexors; no trigger points palpable No tenderness over ITB, hip flexors, ASIS, or PSIS PT-OP-K Range of Motion Start: 04/17/24 16:20 Freq: Status: Active Protocol: Document 04/18/24 11:31 NM (Rec: 04/18/24 12:31 NM [id number]) Lumbar Spine Range of Motion Lumbar Spine Percentage Flexion 25 Extension 0 Lateral Flexion Left 10 Lateral Flexion Right 25 Comments worse with flexion, lateral flex- burning; rotation not tested due fusion Hip Goniometric Range of Motion Hip Right Internal Rotation 25 External Rotation 20 Comments pain in low back with ER Left Internal Rotation 20 External Rotation 20 Comments pain with IR and ER, especially in posterior hip with ER PT-OP-L Special Tests Start: 04/17/24 16:20 Freq: Status: Active Protocol: Document 04/18/24 11:31 NM (Rec: 04/18/24 12:31 NM [id number]) Special Tests Lumbar Spine Special Tests SIJ Test Results + Comments compression, thigh thrust vertebral compression Test Results + Comments symptom reproduction Straight Leg Raise Test Results + Comments c/ hip ADD; neural tension + c / std SLR Hip Special Tests KIRA Test Results + Comments SIJ femoral n tension test Test Results + PT-OP-M Strength Start: 04/17/24 16:20 Freq: Status: Active Protocol: Document 04/18/24 11:31 NM (Rec: 04/18/24 12:31 NM [id number]) Trunk Strength Trunk Manual Muscle Testing Flexion 3 Fair Extension 3 Fair Rotation Left 3 Fair Rotation Right 3 Fair Lateral Flexion Left 3 Fair Lateral Flexion Right 3 Fair Hip Strength Hip Manual Muscle Testing Left Flexion (L2) 3+ Fair+ Extension (S1) 3+ Fair+ Abduction 3 Fair Adduction 4- Good- External Rotation 3 Fair Internal Rotation 3 Fair Comments seated abd>IR, flex; all pain felt in SIJ, lumbar spine Right Flexion (L2) 3+ Fair+ Extension (S1) 3+ Fair+ Abduction 3+ Fair+ Adduction 3+ Fair+ External Rotation 3+ Fair+ Internal Rotation 3+ Fair+ Knee Strength Knee Manual Muscle Testing Right Flexion (S2) 4- Good- Extension (L3) 4- Good- Left Flexion (S2) 4- Good- Extension (L3) 3+ Fair+ Ankle/Foot Strength Ankle and Foot Manual Muscle Testing Right Dorsiflexion (L4) 3+ Fair+ Plantarflexion (S1) 3+ Fair+ Comments tested in sitting; limited ROM Left Dorsiflexion (L4) 3+ Fair+ Plantarflexion (S1) 3+ Fair+ Comments tested in sitting; limited ROM PT-OP-T Assessment and Plan Start: 04/17/24 16:20 Freq: Status: Active Protocol: Document 04/18/24 11:31 NM (Rec: 04/18/24 12:31 NM [id number]) Physical Therapy Assessment Rehab Potential Rehabilitation Potential Fair Evaluation Complexity Number of Personal Factors/Comorbidities 3 or More Number of Body Systems Impaired 4 or More Clinical Presentation at Evaluation Evolving Impairments Impairments Activity Tolerance,Balance, Edema,Functional Activities, Functional Mobility,Gait, Integument,Pain,Posture,ROM, Sensation,Soft Tissue Mobility ,Strength,Tone,Transfers Other Concerns Fall Risk high Age Related Concerns Pt has significant PMH, including 2 lumbar fusions. Hx of falls, including 2 in 2024 . Goals Four Impairment increased pain with STS transfers, squats, bed mobility Short Term Goal (STG) Pt will be able to perform STS transfer with at least 1 hand assist to AD without increase in back or L hip pain in order to demo improved BLE strength for transfers STG Duration 06/02/24 Software Design Manager Goal (LTG) Pt will be able to perform bed mobility and sleep in bed with <5/10 back or L hip pain in order to improve activity tolerance and quality of life LTG Duration 07/14/24 Three Impairment unable to perform HEP/exercise for upcoming surgery Software Design Manager Goal (LTG) If appropriate, pt will be progressively IND with HEP in order to return to prior HEP in preparation for possible upcoming surgery LTG Duration 07/14/24 Two Impairment inc pain with ambulation c/ 4WW Short Term Goal (STG) If appropriate, pt will report <5/10 in back/L hip pain when performing household ambulation c/ 4WW STG Duration 06/23/24 Residential Goal (LTG) If appropriate, pt will report no increase in back or L hip pain during short distance community ambulation c/ 4ww LTG Duration 07/14/24 One Impairment sit/standing tolerance impaired, inc pain with standing; SARAH 50% Impairment ... Residential Goal (LTG) If appropriate, pt will report that she is able to stand while cooking a meal with back /hip pain <5/10 LTG Duration 07/14/24 Assessment Summary Assessment Pt is a 73 y.o. presenting with new onset lumbar spine, SIJ, and posterior hip pain secondary to 2 falls in March 2024. Pt has had imaging that did not reveal any changes in hardware, but had second fall with straight vertebral/SIJ compression following imaging, which has further led to symptom exacerbation including increased pain and recent onset of L anterior and lateral thigh numbness. Tender to palpation along lumbar spine, L SIJ, posterior hip, greater trochanter, and glutes . Restricted hip/trunk AROM and strength secondary to previous fusion and current pain. Pt's symptoms are worse with weight bearing on LLE with gait and standing, sitting, trunk flex, deep hip flexion, and hip ER. Pt is limited in her ability to perform ADLs/IADLs, transfers, gait, general activity tolerance, and sleep. Functionally, pt already has decreased mobility with 4ww due to general weakness and balance; she is further limited in bed mobility, transfers, and gait s/p second fall. PT educated on exam findings and plan of care. PT recommended hold PT at this time until further imaging and possible assessment from spinal surgeon. Pt in agreement. Physical Therapy Plan Frequency and Duration Frequency of Treatment 1-2x/wk Duration of treatment (weeks) 12 Plan of Care Start Date 04/18/24 Plan of Care End Date 07/14/24 Therapeutic Interventions Therapeutic Interventions Balance Training,Gait Training ,Home Exercise Program,Joint Mobilizations,Manual Therapy, Neuromuscular Re-education, Orthotic/Prosthetic Management ,Patient/Caregiver Education, Self-Care/Home Management, Sensory Integration,Soft Tissue Mobilization,Taping, Therapeutic Activities, Therapeutic Exercises Modalities Cold Pack/Ice Massage,Electric Stimulation,Hot Packs, Ultrasound Hold Physical Therapy Reason For Hold Recommend more advanced imaging of lumbar spine and L hip at this time, in addition to possible referral back to spinal surgeon for further assessment if neural symptoms and pain worsen Next Visit Focus/Plan Next Note Type Treatment Note Next Visit Plan Assess SIJ. Manual treatment: STM to hip flexors, SIJ, glutes, paraspinals begin gentle strengthening: isometrics to hips in sitting/ supine/sidelying depending on tolerance
--- NOTE | 2024-04-18 15:58 | PT-OP ANOTE ---
PT attempted to reach Dr. Arita on both personal extension and MA extension, but unable to get through or leave message. Left direct message with call center recommending to hold PT at this time and further imaging (MRI) of lumbar spine/ hip prior to return to PT to ensure hardware intact due to second fall post imaging. Pt also recommended to contact spine surgeon.
--- NOTE | 2024-04-20 12:18 | PT-OP ANOTE ---
PT called and spoke to pt as pt has had imaging since evaluation. Pt planning ot have MRI on Wednesday 04/26, canceled visits until then. Spine surgeon did not order since has not been seen since surgery but pt did reach out about numbness, planning to send results to surgeon and PCP. In meantime, pt will be scheduled for PT following MRI unless otherwise recommended by referring provider or surgeon.
--- NOTE | 2024-04-28 16:24 | PT-OP ANOTE ---
PT called and spoke to pt today as pt recently had MRI. Pt had ED visit following syncope episode for pain as unable to get up from floor, planning to follow up with Dr. Arita, who is also supposed to say if pt can return to PT. Recently on prednisone for pain which has helped. Reports leg pain almost gone but back pain still present. Has been doing gentle ab exercises. Will have visit with neurosurgeon on 05/03. Moved appt to following visit for pt to have clearance from surgeon and from PCP at pt request
--- NOTE | 2024-05-05 15:22 | PT.OTN ---
Current Diagnoses Pain in left hip (05/05/24) Stiffness of left hip, not elsewhere classified (05/05/24) Low back pain, unspecified (05/05/24) Difficulty in walking, not elsewhere classified (05/05/24) Unsteadiness on feet (05/05/24) Other abnormalities of gait and mobility (05/05/24) Weakness (05/05/24) Physical Therapy Treatment Note PT-OP-A Visit Information Start: 04/17/24 16:20 Freq: Status: Active Protocol: Document 05/05/24 13:01 NM (Rec: 05/05/24 15:22 NM [id number]) Out-Patient Physical Therapy Visit Information Visit Information Visit Type Treatment Note Visit Start Time 13:01 Visit Stop Time 13:45 Visit Number 2 Evaluation Information Evaluation Date 04/18/24 Precautions Precautions hx of spinal fusion, falls with decreased mobility and use of AD PT-OP-B Current Condition Start: 04/17/24 16:20 Freq: Status: Active Protocol: Document 04/18/24 11:31 NM (Rec: 04/18/24 12:31 NM [id number]) Current Condition History of Current Condition Onset Date March 2024 Current Complaints pain, decreased mobility c/ 4ww, standing/sitting tolerance History of Current Condition Pt has a significant past medical history including severe OA, RA, 2 back fusions, foot fusion, RTC, shoulder replacement, knee replacements , planning to have R foot fused. Pt reports that she fell while ambulating on her ramp while using her 4WW on her house on 03/14/24. Pt landed while kneeling on R leg, LLE went straight in front. Pt got up and was fine, no pain for 3-4 days; however, then went to gym and worked out ( seated squat machine) then states that could not do anything afterward. Since injury, pt reports L hip pain in posterior hip with radiation to front of thighs, numbness along L lateral leg ( did not have before hand) from hip to knee. Has been sleeping in lift chair, unable to sleep in a bed due to pain . At gym, pt did nustep, adductor and abductor machine, leg press (sitting)- reports no weight, but thinks that what set her over. Yesterday, pt put her feet over ball and rolled back back/forth 3x, figure 4 in chair, squats; reports that further exacerbated symptoms. Pt also reports that she had a second fall a week ago, she reports that she fell flat on her buttocks while reaching for her walker while changing walkers; occurred after she saw her MD/PCP, got her xrays. Pt reports that her numbness has worsened since her second fall; however, thinks (but reports not sure it was present following her first fall). Has not contacted her lumbar surgeon, but has reached out again to PCP. Current Functional Impairments (Reported) Functional Limitations- ADL's pt reports limitations with all ADLs, sleeping Functional Limitations- Mobility/Gait decreased WB on LLE due to pain, limited gait and standing tolerance in addition to sitting tolerance PT-OP-C Subjective Start: 04/17/24 16:20 Freq: Status: Active Protocol: Document 05/05/24 13:01 NM (Rec: 05/05/24 15:22 NM [id number]) OP-PT Subjective Patient Comments Patient Comments Pt had viist with Dr. Parr neurosurgery, large disc protrusion L3 on L side; has order for injection in spine clinic and PT to determine outcome. Pt also has optino for discectomy but pt wants to avoid surgery because at least 6 week recovery. Pt taking methacarbomal ( 5000 mg 3x/day) and percocet; in bed by 630 pm, reports better with lying down. Sleeps with heating pad (2 hours) and percocet. Dr. Arita put pt on prednisone 3 days. Also was off lyrica for a week, now back on lyrica and so symptoms are partially calmed. Still has numbness on L side ( lateral), tingling on anterior thigh. Has been doing core activities. Planning to have televisit with Dr. Arita for pain management PT-OP-F Manual Assessment Start: 04/17/24 16:20 Freq: Status: Active Protocol: Document 04/18/24 11:31 NM (Rec: 04/18/24 12:31 NM [id number]) Manual Assessments Soft Tissue Assessment Soft Tissue Mobility Assessment Tenderness along glutes, quad, hip flexors Joint Mobility Assessment Joint Mobility Assessment Hypomobility of lumbar spine following fusion. Tender along L SIJ, lumbar spine PT-OP-G Mobility & Gait Start: 04/17/24 16:20 Freq: Status: Active Protocol: Document 04/18/24 11:31 NM (Rec: 04/18/24 12:31 NM [id number]) OP Mobility Evaluation Bed Mobility Rolling antalgic, log roll Supine to and from Sit antalgic, via log roll Transfers Sit to Stand c/ UE assist to 4ww and increased pain OP Gait Assessment Gait Gait Assistance Required: Standby Assistance Distance (Feet) 150 Assistive Devices Assistive Device Gait Belt,4 Wheeled Walker Gait Deviations General Gait Pattern Antalgic,Flexed Trunk Comments Gait Comments antalgic PT-OP-H Neuro Start: 04/17/24 16:20 Freq: Status: Active Protocol: Document 04/18/24 11:31 NM (Rec: 04/18/24 12:31 NM [id number]) Sensation Evaluation Comments Summary Comments decreased to light touch: L anterior and lateral thigh decreased sharp/dull: L ant thigh decreased sharp/dull, light touch: R lower leg PT-OP-J Posture/Palpation/Skin Start: 04/17/24 16:20 Freq: Status: Active Protocol: Document 04/18/24 11:31 NM (Rec: 04/18/24 14:07 NM [id number]) Posture Evaluation Position Standing Head/C-Spine Posture Forward Head T-Spine Posture Increased Kyphosis Shoulder Posture (L) Rounded,(R) Rounded Arm Posture (L) Externally Rotated,(R) Externally Rotated Weight Distribution Weight Shifted Right,Decreased Wt.Bear on (L) Hip Posture (L) Externally Rotated,(R) Externally Rotated Knee Posture (L) Genu Valgus,(R) Genu Valgus Palpation Assessment Location lumbar spine Palpation Details Tenderness over lumbar spine especially distally toward sacrum, L>R SIJ No tenderness over coccyx L hip Palpation Details Tenderness over greater trochanter posteriorly along glute to SIJ Tenderness over anterior thigh , from mid quad to distal hip flexors; no trigger points palpable No tenderness over ITB, hip flexors, ASIS, or PSIS PT-OP-K Range of Motion Start: 04/17/24 16:20 Freq: Status: Active Protocol: Document 04/18/24 11:31 NM (Rec: 04/18/24 12:31 NM [id number]) Lumbar Spine Range of Motion Lumbar Spine Percentage Flexion 25 Extension 0 Lateral Flexion Left 10 Lateral Flexion Right 25 Comments worse with flexion, lateral flex- burning; rotation not tested due fusion Hip Goniometric Range of Motion Hip Right Internal Rotation 25 External Rotation 20 Comments pain in low back with ER Left Internal Rotation 20 External Rotation 20 Comments pain with IR and ER, especially in posterior hip with ER PT-OP-L Special Tests Start: 04/17/24 16:20 Freq: Status: Active Protocol: Document 04/18/24 11:31 NM (Rec: 04/18/24 12:31 NM [id number]) Special Tests Lumbar Spine Special Tests SIJ Test Results + Comments compression, thigh thrust vertebral compression Test Results + Comments symptom reproduction Straight Leg Raise Test Results + Comments c/ hip ADD; neural tension + c / std SLR Hip Special Tests KIRA Test Results + Comments SIJ femoral n tension test Test Results + PT-OP-M Strength Start: 04/17/24 16:20 Freq: Status: Active Protocol: Document 04/18/24 11:31 NM (Rec: 04/18/24 12:31 NM [id number]) Trunk Strength Trunk Manual Muscle Testing Flexion 3 Fair Extension 3 Fair Rotation Left 3 Fair Rotation Right 3 Fair Lateral Flexion Left 3 Fair Lateral Flexion Right 3 Fair Hip Strength Hip Manual Muscle Testing Left Flexion (L2) 3+ Fair+ Extension (S1) 3+ Fair+ Abduction 3 Fair Adduction 4- Good- External Rotation 3 Fair Internal Rotation 3 Fair Comments seated abd>IR, flex; all pain felt in SIJ, lumbar spine Right Flexion (L2) 3+ Fair+ Extension (S1) 3+ Fair+ Abduction 3+ Fair+ Adduction 3+ Fair+ External Rotation 3+ Fair+ Internal Rotation 3+ Fair+ Knee Strength Knee Manual Muscle Testing Right Flexion (S2) 4- Good- Extension (L3) 4- Good- Left Flexion (S2) 4- Good- Extension (L3) 3+ Fair+ Ankle/Foot Strength Ankle and Foot Manual Muscle Testing Right Dorsiflexion (L4) 3+ Fair+ Plantarflexion (S1) 3+ Fair+ Comments tested in sitting; limited ROM Left Dorsiflexion (L4) 3+ Fair+ Plantarflexion (S1) 3+ Fair+ Comments tested in sitting; limited ROM PT-OP-Q Treatments Start: 04/17/24 16:20 Freq: Status: Active Protocol: Document 05/05/24 13:01 NM (Rec: 05/05/24 15:22 NM [id number]) Therapeutic Exercises Supine Exercises TrA activation Supine Exercise Name 1. activation, 2. gluteal squeezes, 3. BKFO Side bilateral Equipment Used partial ROM for BKFO, submaximal activation and gluteal squeezes Reps/Minutes 1. 5, 2. 10 x1, 3. 5 ea side Comments no back pain during, reports increase following transition to sitting Sidelying Exercises elongation Sidelying Exercise Name R sidelying Side left Equipment Used pillow between legs Reps/Minutes 2x10 Comments feels good for QL/paraspinal stretch Therapeutic Activity Therapeutic Activity ambulation Name c/ 4WW Reps/Minutes 2 min Comments Short distances around clinic, close SBA. Educated on maintaining, pain free gentle movement as part of pain management positioning/body mechanics Name for pain management Reps/Minutes 20 min Comments 1. R sidelying (L side on top) Pt placed in position, educated on using as temporary relief when unable to lie on back while in bed. Cueing to have pillow between legs for alignment Unable to remain in position for lengthy time 2. hooklying c/ bolster or pillows under legs Pt placed in position, educated on use for pain management especially in evenings when symptoms are worse. 3. sitting position Educated on supporting back using pillows or lift chair while in sitting, positioning pt in chair in clinic. Educated on research showing increased pressure on discs in sitting position 4. positional changes Recommended/demonstrates log roll mechanics for bed mobility/transfers. Educated on taking non-sitting breaks as able at least every 30 min to 1 hour. 360 deg breathing Name for pain management and parasympathetic activation ( added HEP, declines HO) Reps/Minutes 8 min Comments Performed in supine with bolster under legs. Cueing for full 360 deg expansion during breathing to limit solely activating diaphragm/promoting increased intra-abdominal pressure. Education provided on neuscience/anatomy and rationale. Recommend use in evenings when symptoms are worse but educated can perform in any position Reports pain symptom reduction with activity Self-Care/Home Management Treatment Education Patient Education Joint Protection,Pain Management Other Education Educated using spinal models on how intra-abdominal pressure, sitting, and postional changes affect spinal mechanics Educated on safety with hot pack use to decrease risk of man PT-OP-T Assessment and Plan Start: 04/17/24 16:20 Freq: Status: Active Protocol: Document 05/05/24 13:01 NM (Rec: 05/05/24 15:22 NM [id number]) Physical Therapy Assessment Goals Four Impairment increased pain with STS transfers, squats, bed mobility Short Term Goal (STG) Pt will be able to perform STS transfer with at least 1 hand assist to AD without increase in back or L hip pain in order to demo improved BLE strength for transfers STG Duration 06/02/24 Operating Engineer Goal (LTG) Pt will be able to perform bed mobility and sleep in bed with <5/10 back or L hip pain in order to improve activity tolerance and quality of life LTG Duration 07/14/24 Three Impairment unable to perform HEP/exercise for upcoming surgery Operating Engineer Goal (LTG) If appropriate, pt will be progressively IND with HEP in order to return to prior HEP in preparation for possible upcoming surgery LTG Duration 07/14/24 Two Impairment inc pain with ambulation c/ 4WW Short Term Goal (STG) If appropriate, pt will report <5/10 in back/L hip pain when performing household ambulation c/ 4WW STG Duration 06/23/24 Skilled Nursing Goal (LTG) If appropriate, pt will report no increase in back or L hip pain during short distance community ambulation c/ 4ww LTG Duration 07/14/24 One Impairment sit/standing tolerance impaired, inc pain with standing; SARAH 50% Impairment ... Skilled Nursing Goal (LTG) If appropriate, pt will report that she is able to stand while cooking a meal with back /hip pain <5/10 LTG Duration 07/14/24 Assessment Summary Assessment Pt does report increased pain in L side of lumbar spine at end of session, has minimal pain (no number provided) during session but present upon transition to sitting. Session spent on education and demonstration for symptom management and safety via positioning, body mechanics, breathwork, and general movement. She is unsure if she will be planning on having the discectomy depending on pain management; planning to trial PT per surgeon's recommendation in meantime. Physical Therapy Plan Frequency and Duration Frequency of Treatment 1-2x/wk Duration of treatment (weeks) 12 Plan of Care Start Date 04/18/24 Plan of Care End Date 07/14/24 Therapeutic Interventions Therapeutic Interventions Balance Training,Gait Training ,Home Exercise Program,Joint Mobilizations,Manual Therapy, Neuromuscular Re-education, Orthotic/Prosthetic Management ,Patient/Caregiver Education, Self-Care/Home Management, Sensory Integration,Soft Tissue Mobilization,Taping, Therapeutic Activities, Therapeutic Exercises Modalities Cold Pack/Ice Massage,Electric Stimulation,Hot Packs, Ultrasound Hold Physical Therapy Reason For Hold 05/05/24: Pt cleared for PT following imaging and consult with spinal surgeon but considering possibility of surgery for symptom management Next Visit Focus/Plan Next Note Type Treatment Note Next Visit Plan Assess SIJ. Manual treatment: STM to hip flexors, SIJ, glutes, paraspinals Trial gentle strengthening: isometrics to hips in sitting/ supine/sidelying depending on tolerance review breathwork and body mechanics as needed
--- NOTE | 2024-05-18 15:36 | PT.OTN ---
Current Diagnoses Pain in left hip (05/18/24) Stiffness of left hip, not elsewhere classified (05/18/24) Low back pain, unspecified (05/18/24) Difficulty in walking, not elsewhere classified (05/18/24) Unsteadiness on feet (05/18/24) Other abnormalities of gait and mobility (05/18/24) Weakness (05/18/24) Physical Therapy Treatment Note PT-OP-A Visit Information Start: 04/17/24 16:20 Freq: Status: Active Protocol: Document 05/18/24 13:01 NM (Rec: 05/18/24 15:36 NM [id number]) Out-Patient Physical Therapy Visit Information Visit Information Visit Type Progress Note Visit Start Time 13:03 Visit Stop Time 13:45 Visit Number 3 Evaluation Information Evaluation Date 04/18/24 Precautions Precautions hx of spinal fusion, falls with decreased mobility and use of AD PT-OP-B Current Condition Start: 04/17/24 16:20 Freq: Status: Active Protocol: Document 04/18/24 11:31 NM (Rec: 04/18/24 12:31 NM [id number]) Current Condition History of Current Condition Onset Date March 2024 Current Complaints pain, decreased mobility c/ 4ww, standing/sitting tolerance History of Current Condition Pt has a significant past medical history including severe OA, RA, 2 back fusions, foot fusion, RTC, shoulder replacement, knee replacements , planning to have R foot fused. Pt reports that she fell while ambulating on her ramp while using her 4WW on her house on 03/14/24. Pt landed while kneeling on R leg, LLE went straight in front. Pt got up and was fine, no pain for 3-4 days; however, then went to gym and worked out ( seated squat machine) then states that could not do anything afterward. Since injury, pt reports L hip pain in posterior hip with radiation to front of thighs, numbness along L lateral leg ( did not have before hand) from hip to knee. Has been sleeping in lift chair, unable to sleep in a bed due to pain . At gym, pt did nustep, adductor and abductor machine, leg press (sitting)- reports no weight, but thinks that what set her over. Yesterday, pt put her feet over ball and rolled back back/forth 3x, figure 4 in chair, squats; reports that further exacerbated symptoms. Pt also reports that she had a second fall a week ago, she reports that she fell flat on her buttocks while reaching for her walker while changing walkers; occurred after she saw her MD/PCP, got her xrays. Pt reports that her numbness has worsened since her second fall; however, thinks (but reports not sure it was present following her first fall). Has not contacted her lumbar surgeon, but has reached out again to PCP. Current Functional Impairments (Reported) Functional Limitations- ADL's pt reports limitations with all ADLs, sleeping Functional Limitations- Mobility/Gait decreased WB on LLE due to pain, limited gait and standing tolerance in addition to sitting tolerance PT-OP-C Subjective Start: 04/17/24 16:20 Freq: Status: Active Protocol: Document 05/18/24 13:01 NM (Rec: 05/18/24 15:36 NM [id number]) OP-PT Subjective Patient Comments Patient Comments Saw staging technician this past week , got injection in her back. Reports numbness is gone but having nerve pain now downt he front of her [place]. States that he is a proponent. Has appt with Dr. Parr surgeon in early June. Feels like legs are weak, especially with STS and mobility. Still limited by 630 pm at night, better with elevation in supine. Starting to have sciatic pain all the way to foot on her R side; recently started following injection; having more shooting pain. No falls PT-OP-F Manual Assessment Start: 04/17/24 16:20 Freq: Status: Active Protocol: Document 04/18/24 11:31 NM (Rec: 04/18/24 12:31 NM [id number]) Manual Assessments Soft Tissue Assessment Soft Tissue Mobility Assessment Tenderness along glutes, quad, hip flexors Joint Mobility Assessment Joint Mobility Assessment Hypomobility of lumbar spine following fusion. Tender along L SIJ, lumbar spine PT-OP-G Mobility & Gait Start: 04/17/24 16:20 Freq: Status: Active Protocol: Document 04/18/24 11:31 NM (Rec: 04/18/24 12:31 NM [id number]) OP Mobility Evaluation Bed Mobility Rolling antalgic, log roll Supine to and from Sit antalgic, via log roll Transfers Sit to Stand c/ UE assist to 4ww and increased pain OP Gait Assessment Gait Gait Assistance Required: Standby Assistance Distance (Feet) 150 Assistive Devices Assistive Device Gait Belt,4 Wheeled Walker Gait Deviations General Gait Pattern Antalgic,Flexed Trunk Comments Gait Comments antalgic PT-OP-H Neuro Start: 04/17/24 16:20 Freq: Status: Active Protocol: Document 04/18/24 11:31 NM (Rec: 04/18/24 12:31 NM [id number]) Sensation Evaluation Comments Summary Comments decreased to light touch: L anterior and lateral thigh decreased sharp/dull: L ant thigh decreased sharp/dull, light touch: R lower leg PT-OP-J Posture/Palpation/Skin Start: 04/17/24 16:20 Freq: Status: Active Protocol: Document 04/18/24 11:31 NM (Rec: 04/18/24 14:07 NM [id number]) Posture Evaluation Position Standing Head/C-Spine Posture Forward Head T-Spine Posture Increased Kyphosis Shoulder Posture (L) Rounded,(R) Rounded Arm Posture (L) Externally Rotated,(R) Externally Rotated Weight Distribution Weight Shifted Right,Decreased Wt.Bear on (L) Hip Posture (L) Externally Rotated,(R) Externally Rotated Knee Posture (L) Genu Valgus,(R) Genu Valgus Palpation Assessment Location lumbar spine Palpation Details Tenderness over lumbar spine especially distally toward sacrum, L>R SIJ No tenderness over coccyx L hip Palpation Details Tenderness over greater trochanter posteriorly along glute to SIJ Tenderness over anterior thigh , from mid quad to distal hip flexors; no trigger points palpable No tenderness over ITB, hip flexors, ASIS, or PSIS PT-OP-K Range of Motion Start: 04/17/24 16:20 Freq: Status: Active Protocol: Document 05/18/24 13:01 NM (Rec: 05/18/24 15:36 NM [id number]) Hip Goniometric Range of Motion Hip Right Internal Rotation 25 External Rotation 20 Comments pain in low back with ER Left Internal Rotation 20 External Rotation 20 Comments pain with IR and ER, especially in posterior hip with ER PT-OP-L Special Tests Start: 04/17/24 16:20 Freq: Status: Active Protocol: Document 04/18/24 11:31 NM (Rec: 04/18/24 12:31 NM [id number]) Special Tests Lumbar Spine Special Tests SIJ Test Results + Comments compression, thigh thrust vertebral compression Test Results + Comments symptom reproduction Straight Leg Raise Test Results + Comments c/ hip ADD; neural tension + c / std SLR Hip Special Tests KIRA Test Results + Comments SIJ femoral n tension test Test Results + PT-OP-M Strength Start: 04/17/24 16:20 Freq: Status: Active Protocol: Document 05/18/24 13:01 NM (Rec: 05/18/24 15:36 NM [id number]) Hip Strength Hip Manual Muscle Testing Left Flexion (L2) 3+ Fair+ Extension (S1) 3+ Fair+ Abduction 3 Fair Adduction 4- Good- External Rotation 3 Fair Internal Rotation 3 Fair Comments seated abd>IR, flex; all pain felt in SIJ, lumbar spine Right Flexion (L2) 3+ Fair+ Extension (S1) 3+ Fair+ Abduction 3+ Fair+ Adduction 3+ Fair+ External Rotation 3+ Fair+ Internal Rotation 3+ Fair+ Knee Strength Knee Manual Muscle Testing Right Flexion (S2) 4- Good- Extension (L3) 4- Good- Left Flexion (S2) 4- Good- Extension (L3) 3+ Fair+ PT-OP-Q Treatments Start: 04/17/24 16:20 Freq: Status: Active Protocol: Document 05/18/24 13:01 NM (Rec: 05/18/24 15:36 NM [id number]) Therapeutic Exercises Supine Exercises TrA activation Supine Exercise Name BKFO: 1. uni, 2. alt (HEP, no HO); 3. heel slides Side bilateral Reps/Minutes 1. 5, 2. 5, 3. 5 ea Comments small core brace; no pain, feels good' Sitting Exercises nerve glides Sitting Exercise Name knee flex/ext Side bilateral Reps/Minutes 8 ea Comments reports mild L symptom inc sit to stand Side bilateral Equipment Used 2 UE assist Reps/Minutes 5 Comments close SBA; weaker LLE Manual Therapy Treatment Consent Patient gave verbal consent for manual Yes treatment Soft Tissue Mobilization BLE Body Location glutes, HS, quad, hip flexors, calves Mobilization Type Strain/Counterstrain,Strumming Intensity/Depth Superficial Body Position R sidelying Comments Pillow between legs. Performed B. Tenderness along R calf, HS; tightness along sciatic nerve. Mild tenderness along L quad/hip flexors and glutes. Good feedback to manual tx. lumbar spine Body Location paraspinals, QL Mobilization Type Rolling,Strumming Intensity/Depth Superficial Body Position R sidelying Comments Pillow between legs. Good feedback to manual tx. Performed with gentle caudal distraction at iliac crest for sidelying stretch. PT-OP-T Assessment and Plan Start: 04/17/24 16:20 Freq: Status: Active Protocol: Document 05/18/24 13:01 NM (Rec: 05/18/24 15:36 NM [id number]) Physical Therapy Assessment Goals Four Impairment increased pain with STS transfers, squats, bed mobility Short Term Goal (STG) Pt will be able to perform STS transfer with at least 1 hand assist to AD without increase in back or L hip pain in order to demo improved BLE strength for transfers 05/18/24: 5 STS from slightly elevated plinth with BUE assist, mild increase in back and hip pain STG Duration 06/02/24 PROGRESSING 05/18 Taxi Driver Supervisor Goal (LTG) Pt will be able to perform bed mobility and sleep in bed with <5/10 back or L hip pain in order to improve activity tolerance and quality of life LTG Duration 07/14/24 Three Impairment unable to perform HEP/exercise for upcoming surgery Taxi Driver Supervisor Goal (LTG) If appropriate, pt will be progressively IND with HEP in order to return to prior HEP in preparation for possible upcoming surgery 05/18/24: HEP initiated LTG Duration 07/14/24 Two Impairment inc pain with ambulation c/ 4WW Short Term Goal (STG) If appropriate, pt will report <5/10 in back/L hip pain when performing household ambulation c/ 4WW 05/18/24: reports can stand 15- 20 min; 4-5/10 pain STG Duration 06/23/24 PROGRESSING 05/18 Taxi Driver Supervisor Goal (LTG) If appropriate, pt will report no increase in back or L hip pain during short distance community ambulation c/ 4ww LTG Duration 07/14/24 One Impairment sit/standing tolerance impaired, inc pain with standing; SARAH 50% Impairment ... Taxi Driver Supervisor Goal (LTG) If appropriate, pt will report that she is able to stand while cooking a meal with back /hip pain <5/10 05/18/24: reports can stand 15- 20 min; 4-5/10 pain LTG Duration 07/14/24 PROGRESSING 05/18 Progress Towards Goals Progress Towards Goals Slow Progress due to Activity Tolerance,Slow Progress due to Attendance Issues,Slow Progress due to Medical Issues Assessment Summary Assessment Pt has increased back and hip pain with neural symptoms while in upright seated or standing position. Symptom reduction in sidelying and sitting. Good feedback for manual treatment to address soft tissue restrictions and for pain management. Tenderness and tightness present along lumbar spine musculature and BLE along nerves. Pt tolerance to exercise limited by pain. Able to perform small reps of partial ROM core bracing. Poor tolerance for other mobility at this time. Physical Therapy Plan Frequency and Duration Frequency of Treatment 1-2x/wk Duration of treatment (weeks) 12 Plan of Care Start Date 04/18/24 Plan of Care End Date 07/14/24 Therapeutic Interventions Therapeutic Interventions Balance Training,Gait Training ,Home Exercise Program,Joint Mobilizations,Manual Therapy, Neuromuscular Re-education, Orthotic/Prosthetic Management ,Patient/Caregiver Education, Self-Care/Home Management, Sensory Integration,Soft Tissue Mobilization,Taping, Therapeutic Activities, Therapeutic Exercises Modalities Cold Pack/Ice Massage,Electric Stimulation,Hot Packs, Ultrasound Hold Physical Therapy Reason For Hold 05/05/24: Pt cleared for PT following imaging and consult with spinal surgeon but considering possibility of surgery for symptom management Next Visit Focus/Plan Next Note Type Treatment Note Next Visit Plan Manual treatment: STM to hip flexors, SIJ, glutes, paraspinals cont gentle core in supine vs sitting as tolerated. Trial gentle strengthening: isometrics to hips in sitting/ supine/sidelying depending on tolerance. Cont STS for strength and gentle BLE strengthening review breathwork and body mechanics as needed
--- NOTE | 2024-05-23 16:01 | PT.OTN ---
Current Diagnoses Pain in left hip (05/23/24) Stiffness of left hip, not elsewhere classified (05/23/24) Low back pain, unspecified (05/23/24) Difficulty in walking, not elsewhere classified (05/23/24) Unsteadiness on feet (05/23/24) Other abnormalities of gait and mobility (05/23/24) Weakness (05/23/24) Physical Therapy Treatment Note PT-OP-A Visit Information Start: 04/17/24 16:20 Freq: Status: Active Protocol: Document 05/23/24 13:46 AB (Rec: 05/23/24 16:00 AB [id number]) Out-Patient Physical Therapy Visit Information Visit Information Visit Type Progress Note Visit Start Time 14:35 Visit Stop Time 15:16 Visit Number 4 Number of PLATE ROLLER Visits 1 Evaluation Information Evaluation Date 04/18/24 Precautions Precautions hx of spinal fusion, falls with decreased mobility and use of AD PT-OP-B Current Condition Start: 04/17/24 16:20 Freq: Status: Active Protocol: Document 04/18/24 11:31 NM (Rec: 04/18/24 12:31 NM [id number]) Current Condition History of Current Condition Onset Date March 2024 Current Complaints pain, decreased mobility c/ 4ww, standing/sitting tolerance History of Current Condition Pt has a significant past medical history including severe OA, RA, 2 back fusions, foot fusion, RTC, shoulder replacement, knee replacements , planning to have R foot fused. Pt reports that she fell while ambulating on her ramp while using her 4WW on her house on 03/14/24. Pt landed while kneeling on R leg, LLE went straight in front. Pt got up and was fine, no pain for 3-4 days; however, then went to gym and worked out ( seated squat machine) then states that could not do anything afterward. Since injury, pt reports L hip pain in posterior hip with radiation to front of thighs, numbness along L lateral leg ( did not have before hand) from hip to knee. Has been sleeping in lift chair, unable to sleep in a bed due to pain . At gym, pt did nustep, adductor and abductor machine, leg press (sitting)- reports no weight, but thinks that what set her over. Yesterday, pt put her feet over ball and rolled back back/forth 3x, figure 4 in chair, squats; reports that further exacerbated symptoms. Pt also reports that she had a second fall a week ago, she reports that she fell flat on her buttocks while reaching for her walker while changing walkers; occurred after she saw her MD/PCP, got her xrays. Pt reports that her numbness has worsened since her second fall; however, thinks (but reports not sure it was present following her first fall). Has not contacted her lumbar surgeon, but has reached out again to PCP. Current Functional Impairments (Reported) Functional Limitations- ADL's pt reports limitations with all ADLs, sleeping Functional Limitations- Mobility/Gait decreased WB on LLE due to pain, limited gait and standing tolerance in addition to sitting tolerance PT-OP-C Subjective Start: 04/17/24 16:20 Freq: Status: Active Protocol: Document 05/23/24 13:46 AB (Rec: 05/23/24 16:00 AB [id number]) OP-PT Subjective Patient Comments Patient Comments Patient reports no relief from the injection, comments she is likely going to have the disc removed. Patient reports she is in bed by 5-6PM. Patient rated back pain 4-5/10 reports tingling L LE is constant. Patient reports she walked 30 min with spouse very slowly with significantly increased pain post and to bed early. Discussed 8 min walk next trial. PT-OP-F Manual Assessment Start: 04/17/24 16:20 Freq: Status: Active Protocol: Document 04/18/24 11:31 NM (Rec: 04/18/24 12:31 NM [id number]) Manual Assessments Soft Tissue Assessment Soft Tissue Mobility Assessment Tenderness along glutes, quad, hip flexors Joint Mobility Assessment Joint Mobility Assessment Hypomobility of lumbar spine following fusion. Tender along L SIJ, lumbar spine PT-OP-G Mobility & Gait Start: 04/17/24 16:20 Freq: Status: Active Protocol: Document 04/18/24 11:31 NM (Rec: 04/18/24 12:31 NM [id number]) OP Mobility Evaluation Bed Mobility Rolling antalgic, log roll Supine to and from Sit antalgic, via log roll Transfers Sit to Stand c/ UE assist to 4ww and increased pain OP Gait Assessment Gait Gait Assistance Required: Standby Assistance Distance (Feet) 150 Assistive Devices Assistive Device Gait Belt,4 Wheeled Walker Gait Deviations General Gait Pattern Antalgic,Flexed Trunk Comments Gait Comments antalgic PT-OP-H Neuro Start: 04/17/24 16:20 Freq: Status: Active Protocol: Document 04/18/24 11:31 NM (Rec: 04/18/24 12:31 NM [id number]) Sensation Evaluation Comments Summary Comments decreased to light touch: L anterior and lateral thigh decreased sharp/dull: L ant thigh decreased sharp/dull, light touch: R lower leg PT-OP-J Posture/Palpation/Skin Start: 04/17/24 16:20 Freq: Status: Active Protocol: Document 04/18/24 11:31 NM (Rec: 04/18/24 14:07 NM [id number]) Posture Evaluation Position Standing Head/C-Spine Posture Forward Head T-Spine Posture Increased Kyphosis Shoulder Posture (L) Rounded,(R) Rounded Arm Posture (L) Externally Rotated,(R) Externally Rotated Weight Distribution Weight Shifted Right,Decreased Wt.Bear on (L) Hip Posture (L) Externally Rotated,(R) Externally Rotated Knee Posture (L) Genu Valgus,(R) Genu Valgus Palpation Assessment Location lumbar spine Palpation Details Tenderness over lumbar spine especially distally toward sacrum, L>R SIJ No tenderness over coccyx L hip Palpation Details Tenderness over greater trochanter posteriorly along glute to SIJ Tenderness over anterior thigh , from mid quad to distal hip flexors; no trigger points palpable No tenderness over ITB, hip flexors, ASIS, or PSIS PT-OP-K Range of Motion Start: 04/17/24 16:20 Freq: Status: Active Protocol: Document 05/18/24 13:01 NM (Rec: 05/18/24 15:36 NM [id number]) Hip Goniometric Range of Motion Hip Right Internal Rotation 25 External Rotation 20 Comments pain in low back with ER Left Internal Rotation 20 External Rotation 20 Comments pain with IR and ER, especially in posterior hip with ER PT-OP-L Special Tests Start: 04/17/24 16:20 Freq: Status: Active Protocol: Document 04/18/24 11:31 NM (Rec: 04/18/24 12:31 NM [id number]) Special Tests Lumbar Spine Special Tests SIJ Test Results + Comments compression, thigh thrust vertebral compression Test Results + Comments symptom reproduction Straight Leg Raise Test Results + Comments c/ hip ADD; neural tension + c / std SLR Hip Special Tests KIRA Test Results + Comments SIJ femoral n tension test Test Results + PT-OP-M Strength Start: 04/17/24 16:20 Freq: Status: Active Protocol: Document 05/18/24 13:01 NM (Rec: 05/18/24 15:36 NM [id number]) Hip Strength Hip Manual Muscle Testing Left Flexion (L2) 3+ Fair+ Extension (S1) 3+ Fair+ Abduction 3 Fair Adduction 4- Good- External Rotation 3 Fair Internal Rotation 3 Fair Comments seated abd>IR, flex; all pain felt in SIJ, lumbar spine Right Flexion (L2) 3+ Fair+ Extension (S1) 3+ Fair+ Abduction 3+ Fair+ Adduction 3+ Fair+ External Rotation 3+ Fair+ Internal Rotation 3+ Fair+ Knee Strength Knee Manual Muscle Testing Right Flexion (S2) 4- Good- Extension (L3) 4- Good- Left Flexion (S2) 4- Good- Extension (L3) 3+ Fair+ PT-OP-Q Treatments Start: 04/17/24 16:20 Freq: Status: Active Protocol: Document 05/23/24 13:46 AB (Rec: 05/23/24 16:00 AB [id number]) Therapeutic Exercises Supine Exercises breathing from diaphragm in mod restorative pose Supine Exercise Name HEP Reps/Minutes 3 min Comments tactile cues for breathing TrA activation Supine Exercise Name BKO Side bilateral Reps/Minutes X 10 Comments monitored for pain. Sitting Exercises isometrics Sitting Exercise Name manual at trunk fwd retro, then hip add add Reps/Minutes X 5 at trunk, X 2 for hip add add, one 40 sec hold with level 3 band Comments limited by increased radicular symptoms L LE Therapeutic Activity Therapeutic Activity sit to stand Comments Review of hip hinge the performed 2X 5 slightly raised seat height w/o UE use log roll Name throughout session Comments verbal cues for alignment, timing, to push into heels when scooting Manual Therapy Treatment Consent Patient gave verbal consent for manual Yes treatment Soft Tissue Mobilization Glute/piriformis illiopsoas Mobilization Type Cross-Friction,Rolling Intensity/Depth Superficial Body Position Sidelying Comments and hooklying to moderate lumbar spine Body Location paraspinals, QL Mobilization Type Cross-Friction,Rolling, Strumming,Sustained Pressure Intensity/Depth Superficial Body Position R sidelying Comments Pillow between legs. Self-Care/Home Management Treatment Education Other Education Patient ed to decrease time of next attempt to ambulate to 8 min due to increased pain post 30 min walk. Patient ed to perform breathing from diaphragm and as able begin removing pillows under LE's as able when sleeping supine. PT-OP-T Assessment and Plan Start: 04/17/24 16:20 Freq: Status: Active Protocol: Document 05/23/24 13:46 AB (Rec: 05/23/24 16:00 AB [id number]) Physical Therapy Assessment Goals Four Impairment increased pain with STS transfers, squats, bed mobility Short Term Goal (STG) Pt will be able to perform STS transfer with at least 1 hand assist to AD without increase in back or L hip pain in order to demo improved BLE strength for transfers 05/18/24: 5 STS from slightly elevated plinth with BUE assist, mild increase in back and hip pain STG Duration 06/02/24 PROGRESSING 05/18 Group Home Goal (LTG) Pt will be able to perform bed mobility and sleep in bed with <5/10 back or L hip pain in order to improve activity tolerance and quality of life LTG Duration 07/14/24 Assessment Summary Assessment Patient rates back and L LE pain 08/15 end of session. Patient comments she is surprised sit to stand with hip hinge does not increase her pain. Physical Therapy Plan Frequency and Duration Frequency of Treatment 1-2x/wk Duration of treatment (weeks) 12 Plan of Care Start Date 04/18/24 Plan of Care End Date 07/14/24 Next Visit Focus/Plan Next Note Type Treatment Note Next Visit Plan Manual treatment: STM to hip flexors, SIJ, glutes, paraspinals cont gentle core in supine vs sitting as tolerated. Trial gentle strengthening: isometrics to hips in sitting/ supine/sidelying depending on tolerance. Cont STS for strength and gentle BLE strengthening review breathwork and body mechanics as needed
--- NOTE | 2024-06-20 16:47 | PT.OPDS ---
Current Diagnoses Pain in left hip (05/23/24) Stiffness of left hip, not elsewhere classified (05/23/24) Low back pain, unspecified (05/23/24) Difficulty in walking, not elsewhere classified (05/23/24) Unsteadiness on feet (05/23/24) Other abnormalities of gait and mobility (05/23/24) Weakness (05/23/24) Visit Care Team Role Provider Type Nai Arita DO Attending Provider Physician Family Provider Primary Care Provider Referring Provider Specialty: [facility] Practice Address: [address] [place] [address], [address], [facility] Email: [email or web address] Visit Number Visit Number 4 Discharge Summary PT-OP-B Current Condition Start: 04/17/24 16:20 Freq: Status: Active Protocol: Document 04/18/24 11:31 NM (Rec: 04/18/24 12:31 NM [id number]) Current Condition History of Current Condition Onset Date March 2024 Current Complaints pain, decreased mobility c/ 4ww, standing/sitting tolerance History of Current Condition Pt has a significant past medical history including severe OA, RA, 2 back fusions, foot fusion, RTC, shoulder replacement, knee replacements , planning to have R foot fused. Pt reports that she fell while ambulating on her ramp while using her 4WW on her house on 03/14/24. Pt landed while kneeling on R leg, LLE went straight in front. Pt got up and was fine, no pain for 3-4 days; however, then went to gym and worked out ( seated squat machine) then states that could not do anything afterward. Since injury, pt reports L hip pain in posterior hip with radiation to front of thighs, numbness along L lateral leg ( did not have before hand) from hip to knee. Has been sleeping in lift chair, unable to sleep in a bed due to pain . At gym, pt did nustep, adductor and abductor machine, leg press (sitting)- reports no weight, but thinks that what set her over. Yesterday, pt put her feet over ball and rolled back back/forth 3x, figure 4 in chair, squats; reports that further exacerbated symptoms. Pt also reports that she had a second fall a week ago, she reports that she fell flat on her buttocks while reaching for her walker while changing walkers; occurred after she saw her MD/PCP, got her xrays. Pt reports that her numbness has worsened since her second fall; however, thinks (but reports not sure it was present following her first fall). Has not contacted her lumbar surgeon, but has reached out again to PCP. Current Functional Impairments (Reported) Functional Limitations- ADL's pt reports limitations with all ADLs, sleeping Functional Limitations- Mobility/Gait decreased WB on LLE due to pain, limited gait and standing tolerance in addition to sitting tolerance PT-OP-C Subjective Start: 04/17/24 16:20 Freq: Status: Active Protocol: Document 05/23/24 13:46 AB (Rec: 05/23/24 16:00 AB [id number]) OP-PT Subjective Patient Comments Patient Comments Patient reports no relief from the injection, comments she is likely going to have the disc removed. Patient reports she is in bed by 5-6PM. Patient rated back pain 4-5/10 reports tingling L LE is constant. Patient reports she walked 30 min with spouse very slowly with significantly increased pain post and to bed early. Discussed 8 min walk next trial. PT-OP-F Manual Assessment Start: 04/17/24 16:20 Freq: Status: Active Protocol: Document 04/18/24 11:31 NM (Rec: 04/18/24 12:31 NM [id number]) Manual Assessments Soft Tissue Assessment Soft Tissue Mobility Assessment Tenderness along glutes, quad, hip flexors Joint Mobility Assessment Joint Mobility Assessment Hypomobility of lumbar spine following fusion. Tender along L SIJ, lumbar spine PT-OP-G Mobility & Gait Start: 04/17/24 16:20 Freq: Status: Active Protocol: Document 04/18/24 11:31 NM (Rec: 04/18/24 12:31 NM [id number]) OP Mobility Evaluation Bed Mobility Rolling antalgic, log roll Supine to and from Sit antalgic, via log roll Transfers Sit to Stand c/ UE assist to 4ww and increased pain OP Gait Assessment Gait Gait Assistance Required: Standby Assistance Distance (Feet) 150 Assistive Devices Assistive Device Gait Belt,4 Wheeled Walker Gait Deviations General Gait Pattern Antalgic,Flexed Trunk Comments Gait Comments antalgic PT-OP-H Neuro Start: 02/10/25 16:20 Freq: Status: Active Protocol: Document 04/18/24 11:31 NM (Rec: 04/18/24 12:31 NM [id number]) Sensation Evaluation Comments Summary Comments decreased to light touch: L anterior and lateral thigh decreased sharp/dull: L ant thigh decreased sharp/dull, light touch: R lower leg PT-OP-J Posture/Palpation/Skin Start: 04/17/24 16:20 Freq: Status: Active Protocol: Document 04/18/24 11:31 NM (Rec: 04/18/24 14:07 NM [id number]) Posture Evaluation Position Standing Head/C-Spine Posture Forward Head T-Spine Posture Increased Kyphosis Shoulder Posture (L) Rounded,(R) Rounded Arm Posture (L) Externally Rotated,(R) Externally Rotated Weight Distribution Weight Shifted Right,Decreased Wt.Bear on (L) Hip Posture (L) Externally Rotated,(R) Externally Rotated Knee Posture (L) Genu Valgus,(R) Genu Valgus Palpation Assessment Location lumbar spine Palpation Details Tenderness over lumbar spine especially distally toward sacrum, L>R SIJ No tenderness over coccyx L hip Palpation Details Tenderness over greater trochanter posteriorly along glute to SIJ Tenderness over anterior thigh , from mid quad to distal hip flexors; no trigger points palpable No tenderness over ITB, hip flexors, ASIS, or PSIS PT-OP-K Range of Motion Start: 04/17/24 16:20 Freq: Status: Active Protocol: Document 05/18/24 13:01 NM (Rec: 05/18/24 15:36 NM [id number]) Hip Goniometric Range of Motion Hip Right Internal Rotation 25 External Rotation 20 Comments pain in low back with ER Left Internal Rotation 20 External Rotation 20 Comments pain with IR and ER, especially in posterior hip with ER PT-OP-L Special Tests Start: 04/17/24 16:20 Freq: Status: Active Protocol: Document 04/18/24 11:31 NM (Rec: 04/18/24 12:31 NM [id number]) Special Tests Lumbar Spine Special Tests SIJ Test Results + Comments compression, thigh thrust vertebral compression Test Results + Comments symptom reproduction Straight Leg Raise Test Results + Comments c/ hip ADD; neural tension + c / std SLR Hip Special Tests KIRA Test Results + Comments SIJ femoral n tension test Test Results + PT-OP-M Strength Start: 04/17/24 16:20 Freq: Status: Active Protocol: Document 05/18/24 13:01 NM (Rec: 05/18/24 15:36 NM [id number]) Hip Strength Hip Manual Muscle Testing Left Flexion (L2) 3+ Fair+ Extension (S1) 3+ Fair+ Abduction 3 Fair Adduction 4- Good- External Rotation 3 Fair Internal Rotation 3 Fair Comments seated abd>IR, flex; all pain felt in SIJ, lumbar spine Right Flexion (L2) 3+ Fair+ Extension (S1) 3+ Fair+ Abduction 3+ Fair+ Adduction 3+ Fair+ External Rotation 3+ Fair+ Internal Rotation 3+ Fair+ Knee Strength Knee Manual Muscle Testing Right Flexion (S2) 4- Good- Extension (L3) 4- Good- Left Flexion (S2) 4- Good- Extension (L3) 3+ Fair+ PT-OP-T Assessment and Plan Start: 04/17/24 16:20 Freq: Status: Active Protocol: Document 06/20/24 16:46 [facility] (Rec: 06/20/24 16:47 [facility] [id number]) Physical Therapy Assessment Goals Four Impairment increased pain with STS transfers, squats, bed mobility Short Term Goal (STG) Pt will be able to perform STS transfer with at least 1 hand assist to AD without increase in back or L hip pain in order to demo improved BLE strength for transfers 05/18/24: 5 STS from slightly elevated plinth with BUE assist, mild increase in back and hip pain STG Duration 06/02/24 PROGRESSING 05/18 [facility] Goal (LTG) Pt will be able to perform bed mobility and sleep in bed with <5/10 back or L hip pain in order to improve activity tolerance and quality of life LTG Duration 07/14/24 Three Impairment unable to perform HEP/exercise for upcoming surgery [facility] Goal (LTG) If appropriate, pt will be progressively IND with HEP in order to return to prior HEP in preparation for possible upcoming surgery 05/18/24: HEP initiated LTG Duration 07/14/24 Two Impairment inc pain with ambulation c/ 4WW Short Term Goal (STG) If appropriate, pt will report <5/10 in back/L hip pain when performing household ambulation c/ 4WW 05/18/24: reports can stand 15- 20 min; 4-5/10 pain STG Duration 06/23/24 PROGRESSING 05/18 [employer] Goal (LTG) If appropriate, pt will report no increase in back or L hip pain during short distance community ambulation c/ 4ww LTG Duration 07/14/24 One Impairment sit/standing tolerance impaired, inc pain with standing; SARAH 50% Impairment . [facility] Goal (LTG) If appropriate, pt will report that she is able to stand while cooking a meal with back /hip pain <5/10 05/18/24: reports can stand 15- 20 min; 4-5/10 pain LTG Duration 07/14/24 PROGRESSING 05/18 Assessment Summary Assessment Pt dc d/t getting surgery and will return when doctor clears her Physical Therapy Plan Discharge Physical Therapy Discharge Reasons Change in Medical Status
== END 2024-06-27 10:41 | disposition home or self-care (01) ==
LOC: PHYS 14:30
PROVIDERS: Family Provider Family Medicine; PCP Family Medicine; Referring Provider Family Medicine; Visit Provider Family Medicine
DX: M25.552 Pain in left hip (principal); M54.50 Low back pain, unspecified; R53.1 Weakness; M25.652 Stiffness of left hip, not elsewhere classified; R26.2 Difficulty in walking, not elsewhere classified; R26.81 Unsteadiness on feet; R26.89 Other abnormalities of gait and mobility
CPT/HCPCS: 97110; 97140; 97162; 97530

== ENCOUNTER → 2024-06-09 09:24 | Outpatient (CLI) | payer MEDICARE, SELFPAY ==
[2023-02-21 01:38] VITALS: BMI 34.8
[2024-06-09 10:09] LABS: Add Manual Diff / Slide Review NO; Basophils Absolute Auto 0 /uL (0-100); Basophils Percent Auto 0.8 % (0-2); Eosinophils Absolute Auto 100 /uL (0-450); Eosinophils Percent Auto 1.9 % (2-4); Hematocrit 38.3 % (36-46); Hemoglobin 12.7 g/dL (12.0-16.0); Lymphocytes Absolute Auto 1600 /uL (1100-4500); Lymphocytes Percent Auto 41.9 % (25-40); Mean Corpuscular HGB Conc 33.3 % (30-36); Mean Corpuscular Hemoglobin 32.6 PG (26-34); Mean Corpuscular Volume 97.8 fL (80-100); Monocytes Absolute Auto 500 /uL (0-900); Monocytes Percent Auto 12.9 % (3-14); Neutrophils Absolute Auto 1600 /uL (1500-7000); Neutrophils Percent Auto 42.5 % (50-75); Platelet Count 166 X10^3/uL (150-400); Red Blood Cell Count 3.91 X10^6/uL (4.0-5.2); Red Cell Distribution Width 13.9 % (11.6-14.8); White Blood Cell Count 3.8 X10^3/uL (4.5-11.0)
[2024-06-09 10:36] LABS: Alanine Aminotransferase 27 IU/L (<35); Albumin Globulin Ratio 2.2 (1.0-2.8); Alkaline Phosphatase 43 U/L (38-126); Aspartate Aminotransferase 28 IU/L (14-36); BUN Creatinine Ratio 26.9 (6-22); Bilirubin Total 0.7 mg/dL (0.2-1.3); Blood Urea Nitrogen 21 mg/dL (7-17); C-Reactive Protein Quant < 0.5 mg/dL (<1.0); Carbon Dioxide 25 mmol/L (22-32); Chloride 103 mmol/L (98-107); Estimated Glomerular Filt Rate > 60 mL/min (>60); Globulin 1.8 g/dL (1.7-4.1); Glucose 97 mg/dL (80-110); HEMOLYSIS < 15 (0-50); Potassium 4.2 mmol/L (3.4-5.1); Sodium 135 mmol/L (137-145); Total Protein 5.8 g/dL (6.3-8.2)
== END ==
PROVIDERS: Family Provider Family Medicine; PCP Family Medicine; Referring Provider Internal Medicine Rheumatology; Visit Provider Internal Medicine Rheumatology
DX: M06.00 Rheumatoid arthritis without rheumatoid factor, unspecified site (principal); Z79.899 Other long term (current) drug therapy
CPT/HCPCS: 36415; 80053; 85025; 86140

== ENCOUNTER 2024-06-25 08:46 | Emergency (ER) | payer MEDICARE, SELFPAY ==
[2023-02-21 01:38] VITALS: BMI 34.8
--- NOTE | 2024-06-25 09:02 | ED_ITS ---
HPI - Skin/Abscess/Foreign Bdy General Chief complaint: Allergic Reaction Stated complaint: Rash all over body Time Seen by Provider: 06/25/24 09:01 Source: patient, RN notes reviewed and old records reviewed Mode of arrival: Ambulatory Limitations: no limitations History of Present Illness HPI narrative: 73-year-old female comes in with a complaint of rash starting last night and worsening through today. Patient has taken Zyrtec last night and Benadryl this morning. Notes had surgery a week ago has been taking Percocet, methocarbamol which she takes fairly regularly and Lovenox which was started in the past week. Patient had lower lumbar microdiskectomy last Wednesday has been 6 days. She was placed on Lovenox because she was had pulmonary emboli and DVTs in the past. She was currently not chronically anticoagulated but they have noted a but she was had multiple clots in the past. She had Lovenox 2 or 3 years ago postsurgically for 6 weeks without issue. No other new medications or life changes that they appreciate. Patient does note she had an anaphylactic reaction to Cimizia medication for rheumatoid arthritis last year. Patient states she woke up at about midnight with rash on her left arm that was itchy it has since progressed to her face torso arms and lower extremities. It is itchy little bit painful. No fevers. No chest pain or shortness of breath. No difficulty with breathing. No swelling of her airway tongue or oropharynx. No nausea or vomiting. No diarrhea. She notes wet when she had her anaphylactic response to the Cimizia she had quite a bit of airway involvement. Patient family note that she takes oxycodone pretty regularly she takes methocarbamol fairly regularly as well. Surgery was with Dr. Parr at [facility] in [place]. Related Data Home Medications Medication Instructions Recorded Confirmed calcium 600 mg (as 1 cap PO QPM ##0 02/04/17 03/28/24 carbonate)-vitamin D3 10 mcg (400 unit) capsule (Calcium with Vitamin D3) Adult One Daily Multivitamin 1 tab DAILY 10/16/18 03/28/24 folic acid 1 mg tablet 1 mg DAILY 11/18/20 03/28/24 cyclosporine 0.05 % eye drops in a 1 drp EYE-BOTH BID 03/16/22 03/28/24 dropperette (Restasis) insulin syringe-needle U-100 1 mL #10 ea 03/16/22 03/28/24 30 gauge x 1/2 (BD Insulin Syringe Ultra-Fine) omega 5-wbi-atq-fish oil 60 mg-90 1 cap PO BID 03/16/22 03/28/24 mg-500 mg capsule (Fish Oil) azelastine 137 mcg (0.1 %) nasal 1 ml intranasal 04/21/22 03/28/24 spray pantoprazole 20 mg tablet,delayed 20 mg PO DAILY 05/20/22 03/28/24 release acetaminophen 500 mg tablet (Pain 500 mg PO 02/21/23 03/28/24 Reliever Extra Strength (acetaminophen)) abatacept 125 mg/mL subcutaneous mg SUBCUT 03/28/24 03/28/24 auto-injector (Orencia ClickJect) azithromycin 250 mg tablet mg PO 3XW 03/28/24 03/28/24 methotrexate sodium 25 mg/mL mg IM QWEEK 03/28/24 03/28/24 injection solution prednisone 1 mg tablet 3 mg PO DAILY 03/28/24 03/28/24 Previous Rx's Medication Instructions Recorded mupirocin 2 % topical ointment See Rx Instructions .Route 11/23/22 .COMPLEX #15 grams epinephrine 0.3 mg/0.3 mL 0.3 mg (0.3 mL) IM Q5-15M PRN 02/22/23 injection, auto-injector anaphylaxis #2 ea nystatin 100,000 unit/gram topical 1 applic topical BID #30 grams 06/25/23 cream nystatin 100,000 unit/gram topical 1 applic topical BID #60 grams 06/25/23 powder escitalopram oxalate 20 mg tablet 20 mg PO DAILY #90 tabs 08/17/23 (Lexapro) atorvastatin 40 mg tablet 40 mg PO DAILY #90 tabs 09/30/23 meloxicam 15 mg tablet 15 mg PO DAILY #30 tabs 03/28/24 methocarbamol 500 mg tablet 500 mg PO TID PRN muscle spasm #60 03/28/24 tabs zolpidem 10 mg tablet 5 mg (1/2 x 10 mg) PO BEDTIME #45 04/06/24 tabs pregabalin 100 mg capsule (Lyrica) 200 mg (2 x 100 mg) PO BID #120 04/24/24 caps metoprolol succinate 100 mg 100 mg PO DAILY #90 tabs 05/01/24 tablet,extended release 24 hr oxycodone-acetaminophen 5 mg-325 1 tab PO Q8H PRN pain #90 tabs 05/09/24 mg tablet losartan 25 mg tablet 25 mg PO DAILY #90 tabs 05/18/24 apixaban 2.5 mg tablet (Eliquis) 2.5 mg PO BID 14 days #28 tabs 06/25/24 diazepam 5 mg tablet (Valium) 5 mg PO BID PRN muscle spasm #10 06/25/24 tabs hydrocodone 5 mg-acetaminophen 325 1 tab PO Q6H PRN pain #10 tabs 06/25/24 mg tablet prednisone 10 mg tablets in a dose See Rx Instructions PO .COMPLEX 06/25/24 pack #21 ea Allergies Allergy/AdvReac Type Severity Reaction Status Date / Time certolizumab pegol Allergy Severe Anaphylaxis Verified 06/25/24 09:07 [From Cimzia] clindamycin [CLINDAMYCIN] Allergy Intermediate ITCHING Verified 06/25/24 09:07 hydroxychloroquine Allergy Unknown HIVES AND Verified 06/25/24 09:07 [From Plaquenil] ITCHING OF FACE Penicillins [PENICILLINS] Allergy Unknown HIVES AND Verified 06/25/24 09:07 ITCHING Review of Systems Review of Systems ROS Unobtainable: All systems reviewed & are unremarkable except as noted in HPI and below Patient History Medical History Encounter for subsequent annual wellness visit (AWV) in Medicare patient Hyperlipidemia 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 Lumbar compression fracture Lumbar spinal stenosis Status post fall Knee pain Lumbosacral spondylosis Lumbar radiculopathy Right hip pain Obesity (BMI 30.0-34.9) Balance problem Spondylolisthesis Osteoarthritis (~1979) Chronic cough Peripheral neuropathy Shoulder pain Scoliosis (~1949) Lumbar spine pain (~1979) Fractures Chronic back pain Cervical spine disease (~1979) Carpal tunnel syndrome (~2010) Tinnitus Lymphocytic colitis (~2019) Pulmonary embolism (~2000) Chronic pain syndrome Asthma (~1990) DVT (deep venous thrombosis) (~2000) Benign essential HTN Seronegative rheumatoid arthritis (~2011) Low back pain 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 Asthmatic bronchitis Depression (~1986) GERD (gastroesophageal reflux disease) (~1997) Surgical History Status post lumbar spinal fusion Anesthesia History of cataract removal with insertion of prosthetic lens (~04/08/21) S/P foot surgery, left (~02/16/18) History of carpal tunnel surgery (~06/06/13) Patellar fracture (~04/18/09) Status post left rotator cuff repair (~04/01/08) Status post right rotator cuff repair (~05/05/07) History of foot surgery History of uterine fibroid (~08/07/91) History of arthroscopic knee surgery (~05/07/79) S/P removal of ovarian cyst (~09/05/77) History of left knee surgery (~05/06/77) Temporomandibular joint disorder (~03/08/77) History of plastic surgery (~07/30/04) History of cholecystectomy (02/05/98) H/O total hysterectomy (05/06/00) 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) History of knee surgery (05/05/10) History of left shoulder replacement (02/16/19) Hx of spinal fusion (10/09/18) Hx of tonsillectomy (07/27/1967) H/O eye surgery (02/05/1958) Family History Father History of heart disease Hypertension Hyperlipidemia Mother COPD (chronic obstructive pulmonary disease) Brother COPD (chronic obstructive pulmonary disease) Brother Hyperlipidemia Hypertension Grandfather History of heart disease Grandmother COPD (chronic obstructive pulmonary disease) Asthma Grandfather History of heart disease Grandmother Flu Social History household members: spouse Smoking Status: Never smoker alcohol intake: never substance use type: does not use alcohol intake frequency: 0-2 drinks per day Alcohol type: wine Exam Narrative Exam Narrative: GEN: well nourished, well appearing female, alert and oriented x 3, patient appears to be in mild distress. HEENT: Atraumatic, pupils are equal round reactive to light, extraocular movements are intact, nares are clear, TMs are clear with no fluid, there is no conjunctival pallor. Throat is clear without any exudates, erythema, tonsillar enlargement or uvular deviation, no swelling of the tongue airway or oropharynx. Normal speech. No stridor difficulty with secretions. Patient is able to lay flat in the bed without issue. HEART: Regular rate and rhythm without murmur, clicks, rubs. Pulses are equal in upper and lower extremities LUNGS:Lungs clear to auscultation, no wheezes, rales, crackles, chest moves symmetrically ABD:bowel sounds normal, soft, non-tender, no guarding, rebound, rigidity, no masses noted, no hepatosplenomegaly :No CVA tenderness BACK: No cervical, thoracic or lumbar vertebral point tenderness. Patient has normal range of motion. Patient's incision is clean dry and intact. Steri- Strips are still in place there was no warmth or erythema the areas nontender appears to be healing well. Patient was good range of motion of bilateral lower extremities and upper extremities. MSCL: Non-tender, no muscle atrophy, muscles strength 5/5 upper and lower extremities, full range of motion, normal gait NEURO:CN 2-12 intact, sensation normal. SKIN: Patient has a maculopapular erythematous rash that is slightly raised, blanchable, no petechiae. Patient has some excoriation. No blisters. No involvement of mucous membranes patient has small spots on her face, she was multiple areas on her torso majority seemed to be located on her extremities involving large swaths. Patient has itching throughout the evaluation. Initial Vital Signs Initial Vital Signs: Vital Signs Temperature 98.5 F 06/25/24 09:03 Pulse Rate 72 06/25/24 09:03 Respiratory Rate 18 06/25/24 09:03 Blood Pressure 165/68 H 06/25/24 09:03 Pulse Oximetry 95 06/25/24 09:03 Oxygen Delivery Method Room Air 06/25/24 09:03 Course Orders Ordered: Discontinued Medications Apixaban (Apixaban 5 Mg Tablet) 2.5 mg PO NOW ONE Stop: 06/25/24 10:31 Last Admin: 06/25/24 11:05 Dose: 2.5 mg Documented By: SPF Famotidine (Famotidine 20 Mg/2 Ml Vial) 20 mg IV NOW [facility] Last Admin: 06/25/24 09:55 Dose: 20 mg Documented By: TOMASZ Methylprednisolone (Methylprednisolone 125 Mg/2 Ml Vial) 125 mg IV NOW ONE Stop: 06/25/24 09:53 Last Admin: 06/25/24 09:55 Dose: 125 mg Documented By: TOMASZ Vital Signs Vital signs: Vital Signs - 8 hr 06/25/24 10:40 06/25/24 10:40 Pulse Rate 61 Blood Pressure 130/59 L Pulse Oximetry 95 MDM - Skin/Abscess/Foreign Bdy MDM Narrative Medical decision making narrative: 73-year-old female appears to be having some form of allergic reaction patient is on Lovenox does not appear to be petechial rash. There was no fevers incision actually appears to be healing quite well suspicion for infectious source as low. Patient was exam seems most consistent with generalized allergic reaction unclear source patient has had all of the medication she was currently started for surgery in the past she does take oxycodone fairly regularly as well as methocarbamol Lovenox she has not had for a couple years. No other new exposures that she was aware. Discussed with the patient she was supposed to be on Lovenox for proximally 6 weeks as she was developed DVTs and blood clots in the past particularly related to HRT but has had Lovenox for 6 weeks couple of years ago after she had a prior back surgery. Patient had 50 mg of Benadryl prior to arrival, he was given Solu-Medrol and Pepcid 20 mg. Call out to patient's spinal, Dr. Parr to see if they have any specific recommendations for changing patient's anticoagulants. Heparin vs oral anticoagulant. Patient notes she did have a bleed about 5 days out from a prior back surgery. We discussed risks versus benefits heparin has a little bit easier to reverse oral anticoagulants have less reversibility. Spoke with Dr. Parr at 10:20, agrees with plan for steroids and Benadryl could change to an oral anticoagulant rather than Lovenox to see if this could potentially be part of patient's symptoms. Patient has been taking Lovenox 40 mg once daily for DVT prophylaxis. We will place her on Eliquis 2.5 mg p.o. b.i.d.. She was supposed to be anticoagulated for 2 weeks. She states that last time she was saw hematology they noted if she needed oral anticoagulation rather than Coumadin they would try that. We will also send prescription for prednisone, patient is to continue with the Benadryl PRN. She does have an EpiPen at home. We will also give her alternatives for her narcotic and muscle relaxer although she was had these regularly in the past. Patient is had some improvement she states her itching has not improved her rash is not quite as red there is a little bit of resolution although still present in the majority of areas. She feels comfortable with discharge home, he did discussed return precautions. Discharge Plan Departure Patient Disposition: Home Clinical Impression: Allergic reaction Instructions: DI for Adverse Drug Reaction -- Allergic Activity Restrictions/Additional Instructions: Please follow up with your medical team. I did talk with your surgeon Dr. Parr today. I would recommend changing your anticoagulants this seems the most likely source of your symptoms. Lovenox lasts for about 24 hours. At your next dose take this evening, you had a dose this morning as your last dose of Lovenox was yesterday morning. Do not take any additional Lovenox. Take oral steroids daily until completed. I would also recommend taking Benadryl 1-2 tablets every 6 hours as needed. If you prefer you could take Zyrtec 2 tablets twice daily as an alternative. Prescription was sent to [facility] in [place]. Please return if you develop fevers, new pain or any signs of infection at your incision site, swelling of your lips tongue or airway, vomiting, diarrhea, chest tightness or difficulty with breathing, blistering rash or skin sloughing off or other new or concerning changes. Prescriptions: New Eliquis 2.5 mg tablet 2.5 mg PO BID 14 Days Qty: 28 0RF prednisone 10 mg tablets,dose pack See Rx Instructions .ROUTE .COMPLEX Qty: 21 0RF Rx Instructions: 6 tabs p.o. x1 day, then 5 tabs p.o. x1 day, then 4 tablets p.o. x1 day, then 3 tabs p.o. x1 day, then 2 tabs p.o. x1 day, then 1 tab p.o. x1 day hydrocodone-acetaminophen 5-325 mg tablet 1 tab PO Q6H PRN (Reason: pain) Qty: 10 0RF diazepam [Valium] 5 mg tablet 5 mg PO BID PRN (Reason: muscle spasm) Qty: 10 0RF No Action calcium carbonate-vitamin D3 [Calcium 600 with Vitamin D3] 600 mg(1,500mg) - 400 unit capsule 1 cap PO QPM Qty: 0 mupirocin 2 % ointment See Rx Instructions .ROUTE .COMPLEX Qty: 15 0RF Rx Instructions: APPLY TO THE AFFECTED AREA TWICE DAILY. CLEAN AND DRY AREA PRIOR TO USE; escitalopram oxalate [Lexapro] 20 mg tablet 20 mg PO DAILY Qty: 90 3RF atorvastatin 40 mg tablet 40 mg PO DAILY Qty: 90 3RF zolpidem 10 mg tablet 5 mg PO BEDTIME Qty: 45 1RF pregabalin [Lyrica] 100 mg capsule 200 mg PO BID Qty: 120 5RF metoprolol succinate 100 mg tablet extended release 24 hr 100 mg PO DAILY Qty: 90 1RF losartan 25 mg tablet 25 mg PO DAILY Qty: 90 0RF nystatin 100,000 unit/gram cream 1 applic topical BID Qty: 30 11RF nystatin 100,000 unit/gram powder 1 applic topical BID Qty: 60 11RF Orencia ClickJect 125 mg/mL auto-injector SUBCUT Patient Comments: [NO ORIGINAL SIG] methotrexate sodium 25 mg/mL solution IM QWEEK Patient Comments: [NO ORIGINAL SIG] azithromycin 250 mg tablet PO 3XW Rx Instructions: wednesday, Wednesday, wednesday prednisone 1 mg tablet 3 mg PO DAILY Patient Comments: [NO ORIGINAL SIG] methocarbamol 500 mg tablet 500 mg PO TID PRN (Reason: muscle spasm) Qty: 60 11RF meloxicam 15 mg tablet 15 mg PO DAILY Qty: 30 5RF Rx Instructions: with food azelastine 137 mcg (0.1 %) aerosol,spray 1 ml intranasal oxycodone-acetaminophen 5-325 mg tablet 1 tab PO Q8H PRN (Reason: pain) Qty: 90 0RF Adult One Daily Multivitamin 1 tab DAILY folic acid 1 mg Tablet 1 mg DAILY acetaminophen [Pain Reliever ES(acetaminophn)] 500 mg tablet 500 mg PO epinephrine 0.3 mg/0.3 mL auto-injector 0.3 mg IM Q5-15M PRN (Reason: anaphylaxis) Qty: 2 0RF Rx Instructions: do not exceed 3 doses per episode pantoprazole 20 mg tablet,delayed release (DR/EC) 20 mg PO DAILY (DME) insulin syringe-needle U-100 [BD Insulin Syringe Ultra-Fine] 1 mL 30 gauge x 1/2 syringe See Rx Instructions .ROUTE .MEDSUPPLY Qty: 10 Patient Comments: USE 1 SYRINGE ONCE A WEEK Rx Instructions: As directed cyclosporine [Restasis] 0.05 % dropperette 1 drp EYE-BOTH BID omega 3-agz-fnv-fish oil [Fish Oil] 60-90-500 mg capsule 1 cap PO BID Referrals: Nai Arita DO [Primary Care Provider] - Stand Alone Forms: Patient Portal/API/Survey
[2024-06-25 09:03] VITALS: BP 165/68; PULSE 72; RESP 18; TEMP 36.9; O2SAT 95; BMI 33.6
[2024-06-25 09:35] VITALS: PULSE 68; O2SAT 96
[2024-06-25] MEDS: methylPREDNISolone 125 MG/2 ML VIAL IV (09:55)
[2024-06-25] MEDS: FAMOTIDINE 20 MG/2 ML VIAL IV (09:55)
[2024-06-25 10:00] VITALS: PULSE 61; O2SAT 97
[2024-06-25 10:30] VITALS: PULSE 60; O2SAT 95
[2024-06-25 10:40] VITALS: BP 130/59; PULSE 61; O2SAT 95
[2024-06-25] MEDS: APIXABAN 5 MG TABLET 2.5 MG PO (11:05)
== END 2024-06-25 11:14 | disposition home or self-care (01) ==
PROVIDERS: Emergency Provider Emergency Medicine; Family Provider Family Medicine; PCP Family Medicine
DX: T78.40XA Allergy, unspecified, initial encounter (principal); R21 Rash and other nonspecific skin eruption; X58.XXXA Exposure to other specified factors, initial encounter; Z79.01 Long term (current) use of anticoagulants
CPT/HCPCS: 96374; 96375; 99284; J2919

== ENCOUNTER → 2024-06-27 08:39 | Outpatient (CLI) | payer MEDICARE, SELFPAY ==
[2023-02-21 01:38] VITALS: BMI 34.8
[2024-06-27 09:48] LABS: Add Manual Diff / Slide Review NO; Basophils Absolute Auto 0 /uL (0-100); Basophils Percent Auto 0.5 % (0-2); Eosinophils Absolute Auto 0 /uL (0-450); Eosinophils Percent Auto 0.5 % (2-4); Hematocrit 38.1 % (36-46); Hemoglobin 12.5 g/dL (12.0-16.0); Lymphocytes Absolute Auto 1300 /uL (1100-4500); Lymphocytes Percent Auto 24.1 % (25-40); Mean Corpuscular HGB Conc 32.9 % (30-36); Mean Corpuscular Volume 97.3 fL (80-100); Monocytes Absolute Auto 700 /uL (0-900); Monocytes Percent Auto 12.4 % (3-14); Neutrophils Absolute Auto 3300 /uL (1500-7000); Neutrophils Percent Auto 62.5 % (50-75); Platelet Count 189 X10^3/uL (150-400); Red Blood Cell Count 3.91 X10^6/uL (4.0-5.2); Red Cell Distribution Width 14.4 % (11.6-14.8); White Blood Cell Count 5.3 X10^3/uL (4.5-11.0)
[2024-06-27 10:14] LABS: BUN Creatinine Ratio 28.6 (6-22); Blood Urea Nitrogen 22 mg/dL (7-17); Calcium 9.1 mg/dL (8.4-10.2); Carbon Dioxide 29 mmol/L (22-32); Chloride 105 mmol/L (98-107); Estimated Glomerular Filt Rate > 60 mL/min (>60); Glucose 80 mg/dL (80-110); HEMOLYSIS < 15 (0-50); Potassium 4.3 mmol/L (3.4-5.1); Sodium 139 mmol/L (137-145)
[2024-06-27 11:51] LABS: Appearance Urine UA CLEAR; Bilirubin Urine UA NEGATIVE (NEGATIVE); Color Urine UA YELLOW; Glucose Urine UA NEGATIVE (Negative); Ketones Urine UA NEGATIVE (NEGATIVE); Leukocyte Esterase Urine UA NEGATIVE (NEGATIVE); Nitrite Urine UA NEGATIVE (Negative); Occult Blood Urine UA NEGATIVE (Negative); Protein Urine UA NEGATIVE (Negative); Specific Gravity Urine UA 1.015 (1.000-1.035); Urobilinogen Urine UA 0.2 E.U./dL (0.2)
[2024-06-27 12:06] LABS: Bacteria Urine Few (2-10); Culture Indicated Urine Cult Not Indicated; RBC Urine None Seen (0-5/HPF); Squamous Epithelial Cell Urine 0-1 /HPF (0-5/HPF); Urine Volume 10mL (spun); WBC Urine 0-1/HPF (0-5/HPF)
== END ==
PROVIDERS: Family Provider Family Medicine; PCP Family Medicine; Referring Provider Family Medicine; Visit Provider Family Medicine
DX: R23.3 Spontaneous ecchymoses (principal); T78.40XA Allergy, unspecified, initial encounter
CPT/HCPCS: 36415; 80048; 81001; 85025

== ENCOUNTER 2024-07-17 14:11 | Outpatient (RCR) | payer MEDICARE, SELFPAY ==
[2023-02-21 01:38] VITALS: BMI 34.8
--- NOTE | 2024-07-17 15:29 | PT.OIE ---
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 DVT (deep venous thrombosis) (~2000) Encounter for subsequent annual wellness visit (AWV) in Medicare patient Fractures GERD (gastroesophageal reflux disease) (~1997) Hyperlipidemia Knee pain Low back pain Lumbar compression fracture Lumbar radiculopathy Lumbar spinal stenosis Lumbar spine pain (~1979) Lumbosacral spondylosis Lymphocytic colitis (~2019) Obesity (BMI 30.0-34.9) Osteoarthritis (~1979) Peripheral neuropathy Pulmonary embolism (~2000) Right hip pain Sacroiliac joint dysfunction Scoliosis (~1949) Seronegative rheumatoid arthritis (~2011) Shoulder pain Spondylolisthesis Status post fall Tinnitus Past Surgical History (Last Reviewed 06/25/24 @ 10:01 by Dai Oliveira DO) Anesthesia H/O eye surgery (02/05/1958) H/O total hysterectomy (05/06/00) History of arthroscopic knee surgery (~05/07/79) History of carpal tunnel surgery (~06/06/13) History of cataract removal with insertion of prosthetic lens (~04/08/21) History of cholecystectomy (02/05/98) History of foot surgery History of knee surgery (05/05/10) History of left knee surgery (~05/06/77) History of left shoulder replacement (02/16/19) History of plastic surgery (~07/30/04) 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) History of uterine fibroid (~08/07/91) Hx of spinal fusion (10/09/18) Hx of tonsillectomy (07/27/1967) Patellar fracture (~04/18/09) S/P foot surgery, left (~02/16/18) S/P removal of ovarian cyst (~09/05/77) Status post left rotator cuff repair (~04/01/08) Status post lumbar spinal fusion Status post right rotator cuff repair (~05/05/07) Temporomandibular joint disorder (~03/08/77) Visit Care Team Role Provider Type Nai Arita DO Primary Care Provider Physician Specialty: Family Practice Address: [address] [place] [address], [facility] [address], [address] Email: [email or web address] Attending Provider Non-Staff Referring Provider Specialty: Medical Address: [address] [place] [address], [address], [place], [facility] Email: Physical Therapy Initial Evaluation PT-OP-A Visit Information Start: 07/16/24 08:13 Freq: Status: Active Protocol: Document 07/17/24 14:26 MB (Rec: 07/17/24 15:00 MB Desktop) Out-Patient Physical Therapy Visit Information Visit Information Visit Type Initial Evaluation Visit Note No KX Visit Start Time 14:26 Visit Stop Time 15:06 Visit Number 1 Number of HEALTH AND WELLNESS ADVISOR Visits 0 Evaluation Information Evaluation Date 07/17/24 Precautions Precautions Serum negative RA and pt reports she is immunocompromised Pt arrives 5 weeks post-op L2- 3 microdiskectomy 06/19/24 and per doctor visit note, no lift , push, pull more than 15-20 lbs for weeks 4-6, week 6 and after, gradual increase to full activity including lifting groceries, avoid repetitive bend or twisting 2- 3 weeks and bend at knees PT-OP-B Current Condition Start: 07/16/24 08:13 Freq: Status: Active Protocol: Document 07/17/24 14:26 MB (Rec: 07/17/24 15:00 MB Desktop) Current Condition History of Current Condition Onset Date After two falls in March 2024 Current Complaints Tightness lower and upper back History of Current Condition Pt is s/p microdiskectomy 06/19. Pt is in a RA flare and she started prednisone as well as her regular RA meds so she is not feeling great. The nerve pain in her left leg is better after surgery. 5 days after surgery, she was on high steroids after allergy to antibiotics. PMH includes fusion L2-S1. She had two fusions. She has numbness in right leg and foot after the first fusion. Pt reports she feels she has piriformis syndrome in the right buttock. MD note reports possible left popliteal cyst. Pt would like to be able to walk a little more. She uses her rollator. She would like to get back to the pool. PMH includes B TKRs, left shoulder, left ankle fusion and she needs a fusion on her right ankle. She needs a shoulder replacement on her right. Pt reports OA in many joints. Pt is sleeping okay because she is sleeping medication. Prior Treatments and Tests Lumbar MRI 04/26/24: IMPRESSION: 1. Multilevel degenerative changes of the lumbar spine as described above with postoperative changes from L3 through S1 posterior spinal fixation, discectomy and laminectomy. 2. Progression of now moderate to severe central canal stenosis at L2-L3 due to a left subarticular recess disc extrusion. This results in severe narrowing of the left lateral recess with likely impingement the descending left L3 nerve root. 3. Progression of degenerative changes at L1-2 with mild central canal stenosis and mild bilateral neural foraminal stenosis. 4. Other degenerative changes are similar compared to prior exam, as described above. Treatment Goals Patient/Caregiver Goals To decrease back pain, to walk a little more PT-OP-C Subjective Start: 07/16/24 08:13 Freq: Status: Active Protocol: Document 07/17/24 14:26 MB (Rec: 07/17/24 15:00 MB Desktop) OP-PT Subjective Patient Comments Patient Comments See history of current condition Patient Questionnaires Oswestry Low Back Index Oswestry Score 20 Oswestry Impairment 40 to 59% Impaired (Score 40- 59) PT-OP-D Balance Start: 07/16/24 08:13 Freq: Status: Active Protocol: Document 07/17/24 14:26 MB (Rec: 07/17/24 15:00 MB Desktop) Balance Tests Other Other Balance Tests Performed Pt reaches for mat or walker for static standing PT-OP-G Mobility & Gait Start: 07/16/24 08:13 Freq: Status: Active Protocol: Document 07/17/24 14:26 MB (Rec: 07/17/24 15:00 MB Desktop) OP Gait Assessment Comments Gait Comments Gait with her rollator: right AFO and pt reports B foot drop , pt states that AFO helps decrease pain, pt states that she has to use rollator and AFO for gait PT-OP-J Posture/Palpation/Skin Start: 07/16/24 08:13 Freq: Status: Active Protocol: Document 07/17/24 14:26 MB (Rec: 07/17/24 15:00 MB Desktop) Posture Evaluation Comments Posture Comments Forward, flexed posture in sitting and pt cannot stand without AD for standing postural assessment, incision is greater than 2 long for miscrodiskectomy and it appears that it might be over previous fusion and epidural hematoma scar Did not push lumbar range post -op and pt needs rollator PT-OP-K Range of Motion Start: 07/16/24 08:13 Freq: Status: Active Protocol: Document 07/17/24 14:26 MB (Rec: 07/17/24 15:00 MB Desktop) Ankle and Foot Goniometric Range of Motion Ankle and Foot ROM Limitations Comments Functional foot drop B and so did not range and MMT ankles, also, sensory changes PT-OP-M Strength Start: 07/16/24 08:13 Freq: Status: Active Protocol: Document 07/17/24 14:26 MB (Rec: 07/17/24 15:00 MB Desktop) Hip Strength Hip Manual Muscle Testing Left Comments Pain with AROM left hip flexion in hook lying with both knees bent and so not MMT , pt c/o LBP Right Comments MMT in supine today Pain with AROM left hip flexion in hook lying with both knees bent and so not MMT , pt c/o LBP Knee Strength Knee Manual Muscle Testing Left Flexion (S2) 5 Normal Extension (L3) 5 Normal Right Flexion (S2) 5 Normal Extension (L3) 5 Normal Ankle/Foot Strength Ankle and Foot Manual Muscle Testing Bilateral Comments Pt prefers to keep right AFO on and known history of foot drop and left ankle fusion, so did not push ROM or MMT PT-OP-T Assessment and Plan Start: 07/16/24 08:13 Freq: Status: Active Protocol: Document 07/17/24 14:26 MB (Rec: 07/17/24 15:24 MB Desktop) Physical Therapy Assessment Rehab Potential Rehabilitation Potential Fair Evaluation Complexity Number of Personal Factors/Comorbidities 3 or More Number of Body Systems Impaired 3 Clinical Presentation at Evaluation Evolving Impairments Impairments Activity Tolerance,Balance, Coordination,Edema,Functional Activities,Functional Mobility ,Gait,Integument,Pain,Posture, ROM,Sensation,Soft Tissue Mobility,Strength,Transfers Goals Three Impairment Lack of post-op HEP Shank Sander Goal (LTG) Pt will perform HEP with I including pelvic realignment, postural, gentle flexibility, core, LE strengthening, balance and simple pool program to improve c/o back tightness and mobility. LTG Duration 8 weeks Two Impairment Evidence of imbalance Shank Sander Goal (LTG) Pt will perform WNLs on Tinetti balance test with LRAD to decrease fall risk. LTG Duration 8 weeks One Impairment Slow gait Assisted Goal (LTG) Pt will perform TUG with rollator in no more than 10 sec to improve gait speed. LTG Duration 8 weeks Assessment Summary Assessment Pt is a 73 y/o female presenting with reports of back tightness post-op L2-3 microdiskectomy 06/19/24. The microdiskectomy scar is over her previous lumbar fusion scar and so it is rather large . Pt has a complicated medical history including RA and OA affecting many joints, two lumbar fusions, left ankle fusion and need for right and left TSR and need for right as well as B TKR. Pt wears AFO on right ankle. Pt requires rollator for gait and is otherwise quite unsteady. Her knee strength is normal in supine and she presents with baseline B ankle weakness and unable to tolerate MMT B hips. Pt has had a good experience exercising in the pool in the past and would like to get back to the pool. Pt will benefit from PT for balance and gait training, gentle flexibility and strengthening and manual work. Physical Therapy Plan Frequency and Duration Frequency of Treatment 2x/Week Duration of treatment (weeks) 8 Plan of Care Start Date 07/17/24 Plan of Care End Date 09/18/24 Therapeutic Interventions Therapeutic Interventions Balance Training,Canalithic Repositioning,Coordination Training,Gait Training,Home Exercise Program,Joint Mobilizations,Manual Therapy, Neuromuscular Re-education, Patient/Caregiver Education, Self-Care/Home Management,Soft Tissue Mobilization,Taping, Therapeutic Activities, Therapeutic Exercises Modalities Cold Pack/Ice Massage,Electric Stimulation,Hot Packs, Ultrasound Next Visit Focus/Plan Next Note Type Treatment Note Next Visit Plan Initiate manual work, consider pelvic realignment exercises, DKTC vs SKTC, hip rotator and hamstring stretches (gentle), diaphragm breathing and gentle core progression, consider reviewing previous HEP handouts if she has them and reintroduce if appropriate
--- NOTE | 2024-07-18 11:54 | PT.OPDS ---
Current Diagnoses Other intervertebral disc displacement, lumbar region (07/17/24) Radiculopathy, lumbar region (07/17/24) Visit Care Team Role Provider Type Nai Arita DO Primary Care Provider Physician Specialty: Family Practice Address: [address] [place] [address], [address], [address] Email: [email or web address] Attending Provider Non-Staff Referring Provider Specialty: Medical Address: [address] [place] [address], [address], [place], [address] Email: Visit Number Visit Number 1 Discharge Summary PT-OP-B Current Condition Start: 07/16/24 08:13 Freq: Status: Active Protocol: Document 07/17/24 14:26 MB (Rec: 07/17/24 15:00 MB Desktop) Current Condition History of Current Condition Onset Date After two falls in March 2024 Current Complaints Tightness lower and upper back History of Current Condition Pt is s/p microdiskectomy 06/19. Pt is in a RA flare and she started prednisone as well as her regular RA meds so she is not feeling great. The nerve pain in her left leg is better after surgery. 5 days after surgery, she was on high steroids after allergy to antibiotics. PMH includes fusion L2-S1. She had two fusions. She has numbness in right leg and foot after the first fusion. Pt reports she feels she has piriformis syndrome in the right buttock. MD note reports possible left popliteal cyst. Pt would like to be able to walk a little more. She uses her rollator. She would like to get back to the pool. PMH includes B TKRs, left shoulder, left ankle fusion and she needs a fusion on her right ankle. She needs a shoulder replacement on her right. Pt reports OA in many joints. Pt is sleeping okay because she is sleeping medication. Prior Treatments and Tests Lumbar MRI 04/26/24: IMPRESSION: 1. Multilevel degenerative changes of the lumbar spine as described above with postoperative changes from L3 through S1 posterior spinal fixation, discectomy and laminectomy. 2. Progression of now moderate to severe central canal stenosis at L2-L3 due to a left subarticular recess disc extrusion. This results in severe narrowing of the left lateral recess with likely impingement the descending left L3 nerve root. 3. Progression of degenerative changes at L1-2 with mild central canal stenosis and mild bilateral neural foraminal stenosis. 4. Other degenerative changes are similar compared to prior exam, as described above. Treatment Goals Patient/Caregiver Goals To decrease back pain, to walk a little more PT-OP-C Subjective Start: 07/16/24 08:13 Freq: Status: Active Protocol: Document 07/17/24 14:26 MB (Rec: 07/17/24 15:00 MB Desktop) OP-PT Subjective Patient Comments Patient Comments See history of current condition Patient Questionnaires Oswestry Low Back Index Oswestry Score 20 Oswestry Impairment 40 to 59% Impaired (Score 40- 59) PT-OP-D Balance Start: 07/16/24 08:13 Freq: Status: Active Protocol: Document 07/17/24 14:26 MB (Rec: 07/17/24 15:00 MB Desktop) Balance Tests Other Other Balance Tests Performed Pt reaches for mat or walker for static standing PT-OP-G Mobility & Gait Start: 07/16/24 08:13 Freq: Status: Active Protocol: Document 07/17/24 14:26 MB (Rec: 07/17/24 15:00 MB Desktop) OP Gait Assessment Comments Gait Comments Gait with her rollator: right AFO and pt reports B foot drop , pt states that AFO helps decrease pain, pt states that she has to use rollator and AFO for gait PT-OP-J Posture/Palpation/Skin Start: 07/16/24 08:13 Freq: Status: Active Protocol: Document 07/17/24 14:26 MB (Rec: 07/17/24 15:00 MB Desktop) Posture Evaluation Comments Posture Comments Forward, flexed posture in sitting and pt cannot stand without AD for standing postural assessment, incision is greater than 2 long for miscrodiskectomy and it appears that it might be over previous fusion and epidural hematoma scar Did not push lumbar range post -op and pt needs rollator PT-OP-K Range of Motion Start: 07/16/24 08:13 Freq: Status: Active Protocol: Document 07/17/24 14:26 MB (Rec: 07/17/24 15:00 MB Desktop) Ankle and Foot Goniometric Range of Motion Ankle and Foot ROM Limitations Comments Functional foot drop B and so did not range and MMT ankles, also, sensory changes PT-OP-M Strength Start: 07/16/24 08:13 Freq: Status: Active Protocol: Document 07/17/24 14:26 MB (Rec: 07/17/24 15:00 MB Desktop) Hip Strength Hip Manual Muscle Testing Left Comments Pain with AROM left hip flexion in hook lying with both knees bent and so not MMT , pt c/o LBP Right Comments MMT in supine today Pain with AROM left hip flexion in hook lying with both knees bent and so not MMT , pt c/o LBP Knee Strength Knee Manual Muscle Testing Left Flexion (S2) 5 Normal Extension (L3) 5 Normal Right Flexion (S2) 5 Normal Extension (L3) 5 Normal Ankle/Foot Strength Ankle and Foot Manual Muscle Testing Bilateral Comments Pt prefers to keep right AFO on and known history of foot drop and left ankle fusion, so did not push ROM or MMT PT-OP-T Assessment and Plan Start: 07/16/24 08:13 Freq: Status: Active Protocol: Document 07/18/24 11:53 MB (Rec: 07/18/24 11:54 MB Desktop) Physical Therapy Assessment Assessment Summary Assessment Pt canceled all appointments and is going to perform aqua therapy. This is an excellent plan for pt. Will d/c PT.
== END 2024-07-20 10:00 | disposition home or self-care (01) ==
LOC: PHYS 14:11
PROVIDERS: PCP Family Medicine; Referring Provider Physician Assistant; Visit Provider Physician Assistant
DX: M54.16 Radiculopathy, lumbar region (principal); M51.26 Other intervertebral disc displacement, lumbar region
CPT/HCPCS: 97163

== ENCOUNTER → 2024-08-28 10:40 | Outpatient (CLI) | payer MEDICARE, SELFPAY ==
[2023-02-21 01:38] VITALS: BMI 34.8
[2024-08-28 11:19] LABS: Add Manual Diff / Slide Review NO; Basophils Absolute Auto 0 /uL (0-100); Basophils Percent Auto 0.8 % (0-2); Eosinophils Absolute Auto 0 /uL (0-450); Eosinophils Percent Auto 1.2 % (2-4); Hematocrit 38.3 % (36-46); Lymphocytes Absolute Auto 1200 /uL (1100-4500); Lymphocytes Percent Auto 32.3 % (25-40); Mean Corpuscular HGB Conc 33.9 % (30-36); Mean Corpuscular Hemoglobin 32.3 PG (26-34); Mean Corpuscular Volume 95.5 fL (80-100); Monocytes Absolute Auto 400 /uL (0-900); Monocytes Percent Auto 12.3 % (3-14); Neutrophils Absolute Auto 1900 /uL (1500-7000); Neutrophils Percent Auto 53.4 % (50-75); Platelet Count 145 X10^3/uL (150-400); Red Blood Cell Count 4.01 X10^6/uL (4.0-5.2); Red Cell Distribution Width 14.9 % (11.6-14.8); White Blood Cell Count 3.6 X10^3/uL (4.5-11.0)
[2024-08-28 11:53] LABS: Alanine Aminotransferase 28 IU/L (<35); Albumin 4.1 g/dL (3.5-5.0); Albumin Globulin Ratio 2.1 (1.0-2.8); Alkaline Phosphatase 53 U/L (38-126); Aspartate Aminotransferase 33 IU/L (14-36); BUN Creatinine Ratio 22.4 (6-22); Bilirubin Total 0.7 mg/dL (0.2-1.3); Blood Urea Nitrogen 19 mg/dL (7-17); C-Reactive Protein Quant < 0.5 mg/dL (<1.0); Calcium 9.3 mg/dL (8.4-10.2); Carbon Dioxide 27 mmol/L (22-32); Chloride 104 mmol/L (98-107); Estimated Glomerular Filt Rate > 60 mL/min (>60); Glucose 88 mg/dL (70-99); HEMOLYSIS < 15 (0-50); Potassium 4.5 mmol/L (3.4-5.1); Sodium 137 mmol/L (137-145); Total Protein 6.1 g/dL (6.3-8.2)
== END ==
LOC: LAB 10:41
PROVIDERS: PCP Family Medicine; Referring Provider Internal Medicine Rheumatology; Visit Provider Internal Medicine Rheumatology
DX: Z79.899 Other long term (current) drug therapy (principal)
CPT/HCPCS: 36415; 80053; 85025; 86140

== ENCOUNTER → 2024-10-11 14:12 | Outpatient (CLI) | payer MEDICARE, SELFPAY ==
[2023-02-21 01:38] VITALS: BMI 34.8
[2024-10-11 15:08] LABS: Hemoglobin A1C% w Est Avg Glu 5.6 % (4.0-6.0)
== END ==
PROVIDERS: PCP Family Medicine; Referring Provider Family Medicine; Visit Provider Family Medicine
DX: E78.5 Hyperlipidemia, unspecified (principal); E66.9 Obesity, unspecified
CPT/HCPCS: 36415; 83036

== ENCOUNTER → 2024-11-17 09:32 | Outpatient (CLI) | payer MEDICARE, SELFPAY ==
[2023-02-21 01:38] VITALS: BMI 34.8
--- NOTE | 2024-11-17 09:33 | DI.RAD.S_ITS ---
PROCEDURE: XR LUMBAR SPINE 2-3V INDICATIONS: LBP, Lt radic. TECHNIQUE: 3 views of the lumbar spine were acquired. COMPARISON: [facility], CR, XR LUMBAR SPINE 2-3V, 03/28/2024, 9:12. FINDINGS: Bones: Diffuse generalized osseous demineralization. 5 [id number] vertebrae are present. Mild levoscoliosis of the thoracolumbar spine has its apex about the T12 vertebral body. There is otherwise normal bony alignment. Hardware status post L3 through S1 posterior lumbar interbody fusion without evidence of complication. Stable chronic appearing compression fracture deformity of the superior L2 endplate resulting in less than 25% height loss redemonstrated. No vertebral body compression fractures. No suspicious bony lesions. Soft tissues: Overlying bowel gas pattern is normal. No suspicious soft tissue calcifications. IMPRESSION: Stable appearing degenerative, posttraumatic and postsurgical change without evidence of acute osseous abnormality or hardware complication. Dictated by: Chemo Ramos M.D. on 11/20/2024 at 5:51 Approved by: Chemo Ramos M.D. on 11/20/2024 at 5:53
== END ==
PROVIDERS: PCP Family Medicine; Referring Provider Family Medicine; Visit Provider Family Medicine
DX: M54.50 Low back pain, unspecified (principal); Z98.1 Arthrodesis status
CPT/HCPCS: 72100

== ENCOUNTER → 2024-12-12 10:59 | Outpatient (CLI) | payer MEDICARE, SELFPAY ==
[2023-02-21 01:38] VITALS: BMI 34.8
[2024-12-12 11:47] LABS: Add Manual Diff / Slide Review NO; Hematocrit 40.0 % (36-46); Hemoglobin 13.4 g/dL (12.0-16.0); Lymphocytes Absolute Auto 1000 /uL (1100-4500); Mean Corpuscular HGB Conc 33.5 % (30-36); Mean Corpuscular Hemoglobin 31.6 PG (26-34); Mean Corpuscular Volume 94.3 fL (80-100); Platelet Count 158 X10^3/uL (150-400)
[2024-12-12 13:38] LABS: Alanine Aminotransferase 30 IU/L (<35); Albumin 4.3 g/dL (3.5-5.0); Albumin Globulin Ratio 2.0 (1.0-2.8); Alkaline Phosphatase 54 U/L (38-126); Blood Urea Nitrogen 16 mg/dL (7-17); Calcium 9.3 mg/dL (8.4-10.2); Carbon Dioxide 26 mmol/L (22-32); Chloride 101 mmol/L (98-107); Estimated Glomerular Filt Rate > 60 mL/min (>60); Globulin 2.1 g/dL (1.7-4.1); Glucose 82 mg/dL (70-99); HEMOLYSIS 21 (0-50); Potassium 4.4 mmol/L (3.4-5.1); Sodium 135 mmol/L (137-145); Total Protein 6.4 g/dL (6.3-8.2)
== END ==
PROVIDERS: PCP Family Medicine; Referring Provider Internal Medicine Rheumatology; Visit Provider Internal Medicine Rheumatology
DX: M06.00 Rheumatoid arthritis without rheumatoid factor, unspecified site (principal); Z79.60 Long term (current) use of unspecified immunomodulators and immunosuppressants
CPT/HCPCS: 36415; 80053; 85025; 86140

== ENCOUNTER → 2024-12-22 08:39 | Outpatient (CLI) | payer MEDICARE, SELFPAY ==
[2023-02-21 01:38] VITALS: BMI 34.8
--- NOTE | 2024-12-22 08:41 | DI.MRI.S_ITS ---
PROCEDURE: MR LUMBAR SPINE WO CON INDICATIONS: radicular LBP, recent surgery TECHNIQUE: Noncontrast sagittal T1 spin echo and T2 fast echo, sagittal STIR, and T2 fast spin echo through the lumbar spine. In cases with scoliosis, additional coronal T2 fast spin echo may be performed. COMPARISON: [facility], MR, MR LUMBAR SPINE WO CON, 04/26/2024, 13:13. FINDINGS: Image quality: Excellent. Postsurgical change: L3-S1 posterior spinal fusion with instrumentation, intervertebral body placement and laminectomy. Alignment and Curvature: Grade 1 anterolisthesis L3-L4, unchanged. Levocurvature of the thoracolumbar spine. Bone Marrow: L2 compression deformity similar to prior examination with persistent but decreased marrow edema. Spinal Cord: Conus medullaris terminates at the L1-L2 level. Visualized cord demonstrates normal signal and size. Paraspinous Soft Tissues: No paravertebral masses. T12-L1: Normal appearance. L1-L2: Disc bulge. Facet arthropathy and thickening of ligamentum flavum. Mild central canal stenosis. Mild bilateral foraminal stenosis. L2-L3: Rule disc desiccation posterior disc bulge. Previously seen left subarticular disc extrusion has mostly resolved or been resected. Moderate to severe central canal stenosis similar to prior. Moderate right foraminal stenosis. Mild left foraminal stenosis. L3-L4: Postoperative changes. No central canal stenosis. Moderate right and mild left foraminal stenosis, unchanged. L4-L5: Postoperative changes. No central canal stenosis. Unchanged mild bilateral foraminal stenosis. L5-S1: Postoperative changes. No central canal stenosis. Mild right foraminal stenosis. Moderate left foraminal stenosis, unchanged. IMPRESSION: L3-L4 disc extrusion with interval resorption or resection. Degenerative and postoperative changes are stable. Height loss at L2 is stable. Dictated by: Brock Verma M.D. on 12/22/2024 at 13:30 Approved by: Brock Verma M.D. on 12/22/2024 at 13:41
== END ==
LOC: MRI 08:40
PROVIDERS: PCP Family Medicine; Referring Provider Family Medicine; Visit Provider Neurological Surgery
DX: M51.16 Intervertebral disc disorders with radiculopathy, lumbar region (principal); M47.26 Other spondylosis with radiculopathy, lumbar region; M48.061 Spinal stenosis, lumbar region without neurogenic claudication; M48.07 Spinal stenosis, lumbosacral region; M43.8X6 Other specified deforming dorsopathies, lumbar region; Z98.1 Arthrodesis status
CPT/HCPCS: 72148

== ENCOUNTER → 2025-03-02 14:58 | Outpatient (CLI) | payer MEDICARE, SELFPAY ==
[2023-02-21 01:38] VITALS: BMI 34.8
--- NOTE | 2025-03-02 14:59 | DI.MG.S_ITS ---
MM screening mammo BI: 03/02/2025. BI-RADS: 1 CLINICAL: 74-year old female for bilateral screening mammogram. Tyrer-Cuzick lifetime risk of 7.5%. No personal or first-degree family history of breast cancer. The patient had a prior left breast biopsy. PRIOR EXAMS 03/03/2024, 09/03/2023, 03/05/2023, 08/20/2022. MAMMOGRAPHY TECHNIQUE: 2D and 3D (tomosynthesis) digital mammographic views obtained, with additional images as needed for full coverage. Current study was also evaluated with a Computer Aided Detection (CAD) system. DENSITY C. The breasts are heterogeneously dense, which may obscure small masses. MAMMOGRAPHY FINDINGS Bilateral: No suspicious mass, asymmetry, microcalcification, or other abnormality seen. IMPRESSION: * No evidence of malignancy. RECOMMENDATIONS Bilateral * Annual screening mammography. OVERALL ASSESSMENT CATEGORY BI-RADS-1: Negative. The [employer] recommends annual screening mammography beginning at age 40 for women with average risk of breast cancer. ELECTRONICALLY SIGNED: Randy Kurtz M.D. on 03/02/2025 at 05:31:58 PM PT Interpreting Station ID: [id number]
== END ==
LOC: MAMMO 14:59
PROVIDERS: PCP Family Medicine; Referring Provider Family Medicine; Visit Provider Family Medicine
DX: Z12.31 Encounter for screening mammogram for malignant neoplasm of breast (principal); R92.333 Mammographic heterogeneous density, bilateral breasts
CPT/HCPCS: 77063; 77067